=== PATIENT | male | born 1960 | race Caucasian/White ===

== ENCOUNTER 2017-06-07 11:28 | Emergency (ER) | payer OTHER ==
--- OUTSIDE RECORDS SUMMARY | 2017-06-07 11:31 | XMS REPORT | Clinical Summary ---
:1960 Author Organization [facility] Address [address] [place] [address] Phone Care Team Providers Name Role Phone Unavailable Primary Care Provider Unavailable Allergies No Known Allergies Current Medications Prescription Sig. Disp. Refills Start End Date Status Date levothyroxine Take 2 tablets (400 60 tablet 0 03/15/19 Active (SYNTHROID, mcg total) by mouth 8 19 LEVOTHROID) 200 Every morning on an MCG tablet empty stomach. atorvastatin Take 1 tablet (80 30 tablet 0 03/15/19 Active (LIPITOR) 80 MG mg total) by mouth 8 19 tablet daily. amiodarone Take 1 tablet (200 30 tablet 11 03/15/19 Active (PACERONE) 200 MG mg total) by mouth 8 19 tablet daily. apixaban Take 1 tablet (5 mg 60 tablet 0 Active (ELIQUIS) 5 mg total) by mouth 2 8 Tab tablet (two) times daily. digoxin (LANOXIN) Take 1 tablet (250 30 tablet 03/15/19 Active 0.25 MG tablet mcg total) by mouth 8 19 daily. famotidine Take 1 tablet (20 60 tablet 0 Active (PEPCID) 20 MG mg total) by mouth 8 tablet every 12 (twelve) hours. ipratropium-albut Take 3 mLs by 360 mL 0 03/09/19 Active nanda (DUO-NEB) nebulization every 8 19 0.5 mg-3 mg(2.5 6 (six) hours for mg base)/3 mL 360 days. nebulizer solution metoprolol Take 1 tablet (25 60 tablet 11 03/14/19 Active (LOPRESSOR) 25 MG mg total) by mouth 8 19 tablet 2 (two) times daily. glucagon, human Inject 1 mL (1 mg 1 each 0 Active recombinant, 1 total) 8 mg/mL SolR intramuscularly as injection needed (BGL< 70, patient unable to PO, AND unable to give D50W due to lack of IV access). insulin detemir Inject 20 Units 6 mL 0 03/14/19 Active (LEVEMIR) 100 subcutaneously 8 19 unit/mL injection every morning If glucose 90-100mg/dl give half dose. Hold if glucose <90mg/dl. Hold if tube feeds held.. insulin regular Inject 0.1 mLs (10 12 mL 0 Active (HUMULIN Units total) 8 R,NOVOLIN R) 100 subcutaneously unit/mL injection every 6 (six) hours. insulin regular Inject 0-0.12 mLs 10 mL 0 Active (HUMULIN (0-12 Units total) 8 R,NOVOLIN R) 100 subcutaneously 3 unit/mL injection (three) times daily SSI 2:50 BG>150mg/dl as needed. propranolol Take 40 mg by mouth 03/14/19 Discontinued (INDERAL) 20 MG 2 (two) times daily 18 tablet . icosapent ethyl Take 4 g by mouth 03/14/19 Discontinued (VASCEPA) 1 gram daily . 18 Cap triamterene-hydro Take 1 tablet by 01/24/20 Discontinued chlorothiazide mouth daily. 17 (MAXZIDE) 75-50 mg per tablet DULoxetine Take 60 mg by mouth 03/14/19 Discontinued (CYMBALTA) 60 MG daily. 18 capsule INSULIN REGULAR, Inject 12/01/19 Discontinued HUMAN (HUMULIN R subcutaneously. 17 U-500 Through insulin "CONCENTRATED" pump. SUBQ) LEVOTHYROXINE Take 450 mcg by 01/11/20 Discontinued SODIUM mouth. 17 (LEVOTHYROXINE ORAL) testosterone Inject 03/14/19 Discontinued cypionate intramuscularly 18 (DEPOTESTOTERONE once every 3 weeks CYPIONATE) 200 . mg/mL injection exenatide Inject 2 mg 12/01/19 Discontinued microspheres subcutaneously 17 (BYDUREON) 2 mg every 7 days SERR Saturday. aspirin 81 MG EC Take 1 tablet (81 21 tablet 0 03/14/19 Discontinued tablet mg total) by mouth 5 18 daily. solifenacin Take 10 mg by mouth 01/11/20 Discontinued (VESICARE) 5 MG daily. 17 tablet clopidogrel Take 75 mg by mouth 12/01/19 Discontinued (PLAVIX) 75 mg daily. 17 tablet mirabegron Take 50 mg by mouth 12/01/19 Discontinued (MYRBETRIQ) 50 mg daily. 17 Tb24 rosuvastatin Take 5 mg by mouth 01/11/20 Discontinued (CRESTOR) 5 MG daily. 17 tablet insulin regular Inject 03/14/19 Discontinued hum U-500 conc subcutaneously 3 18 (HUMULIN R U-500, (three) times daily CONC, KWIKPEN) Sliding scale; 500 unit/mL (3 takes Insulin mL) InPn morning, noon and bedtime. levothyroxine Take 450 mcg by 03/14/19 Discontinued (SYNTHROID, mouth Every morning 18 LEVOTHROID) 150 on an empty MCG tablet stomach. rosuvastatin Take 20 mg by mouth 03/14/19 Discontinued (CRESTOR) 20 MG daily. 18 tablet valsartan-hydroch Take 1 tablet by 03/14/19 Discontinued lorothiazide mouth daily. 18 (DIOVAN-HCT) 160-12.5 mg per tablet cholecalciferol, Take 2,000 Units by 03/14/19 Discontinued vitamin D3, 2,000 mouth daily. 18 unit Tab b complex Take 1 tablet by 03/14/19 Discontinued vitamins tablet mouth daily. 18 mirabegron Take 50 mg by mouth 03/14/19 Discontinued (MYRBETRIQ) 50 mg daily. 18 Tb24 ER tablet buPROPion Take 75 mg by mouth 03/14/19 Discontinued (WELLBUTRIN) 75 daily. 18 MG tablet acetaminophen Take 2 tablets 30 tablet 0 03/24/19 (TYLENOL) 500 MG (1,000 mg total) by 8 18 tablet mouth every 6 (six) hours as needed for Fever for up to 10 days. loperamide Take 2 capsules (4 30 capsule 0 03/24/19 (IMODIUM) 2 mg mg total) by mouth 8 18 capsule 4 (four) times daily for 10 days. chlorhexidine Use as directed 15 420 mL 0 03/28/19 (PERIDEX) 0.12 % mLs in the mouth or 8 18 solution throat 2 (two) times daily for 14 days. insulin regular Use as directed. 10 mL 0 03/14/19 Discontinued (HUMULIN 8 18 R,NOVOLIN R) 100 unit/mL injection insulin regular Use as directed. 10 mL 0 03/14/19 Discontinued (HUMULIN 8 18 R,NOVOLIN R) 100 unit/mL injection insulin detemir Inject 20 Units 6 mL 0 04/13/19 (LEVEMIR) 100 subcutaneously 8 18 unit/mL injection nightly for 30 days If glucose 90-100mg/dL give 1/2 doseHold if glucose <90mg/dLHold if tube feeds held.. 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 Rectal cancer (HCC) 01/21/2017 Transient cerebral ischemia, unspecified type 09/28/2015 Cerebral infarction (HCC) 12/20/2014 Overview: UPDATED BY ICD10 SNOMED/IMO UPDATES Lumbar radiculitis 12/14/2013 Hypertension Overview: HTN x 15 yrs Diabetes mellitus (HCC) Overview: IDDM x 19 yrs/ uses insulin pump/ Checks bs 7x daily average [address] Neuropathy Hypothyroid Hypercholesteremia Essential tremor Resolved Problems Problem Noted Date Resolved Date Bacteremia 02/18/2017 03/14/2017 Acute metabolic encephalopathy 2/2 severe hyperglycemia 01/24/2017 03/14/2017 Acute hyperglycemia 01/23/2017 03/14/2017 Hypophosphatasia 01/23/2017 03/14/2017 Acute postoperative pain 01/23/2017 03/14/2017 Leukocytosis, unspecified type 01/23/2017 03/14/2017 Combative behavior 01/23/2017 03/14/2017 Threatening to others 01/23/2017 03/14/2017 Sepsis, due to unspecified organism (HCC) 03/14/2017 Encounters Date Type Specialty Care Team Description 03/05/2017 Procedure Pass Gastroenterology 03/05/2017 Surgery Gastroenterology [place] UPPER ENDOSCOPY Renzo Duong MD 03/04/2017 Anesthesia Event Gastroenterology Edward Julian MD 02/22/2017 Orders Only General Internal Medicine 02/04/2017 Anesthesia Event Cardiac Intensive Care Vlad Briones MD 02/01/2017 Anesthesia Event Gastroenterology Taniya Beltran CRNA 02/01/2017 Procedure Pass Gastroenterology 02/01/2017 Surgery Gastroenterology Candelario Murphy SIGMOIDOSCOPY Franc[place]a 01/24/2017 Anesthesia Event Willard Lee MD 01/24/2017 Procedure Pass 01/24/2017 Surgery Volodymyr, LAPAROSCOPY,ILEOSTO MARIA FERNANDA Saavedra MD 01/21/2017 [facility] General Internal Clemente Moreno, Acute - Encounter Medicine MD encephalopathy;[place] 03/14/2017 Danny Sheppard MD hyperglycemia;Acute postoperative pain;Hypotension, unspecified hypotension type;Intraabdominal fluid collection;Diabetes mellitus with insulin therapy (HCC);Hyperglycemia ;Acute respiratory failure requiring reintubation (HCC);Acute metabolic encephalopathy;Hypo thyroidism, unspecified type;Atrial fibrillation, unspecified type (HCC);Septic shock (HCC);Sepsis, due to unspecified organism (HCC) 01/21/2017 Anesthesia Event Lorne Corona MD 01/21/2017 Procedure Pass 01/21/2017 Surgery Clemente Moreno, ROBOTIC LAPAROSCOPY,LOW ANTERIOR RESECTION 01/10/2017 Hospital Pre-Admission Testing Clemente Moreno, Cerebral Encounter infarction, unspecified mechanism (HCC) 01/10/2017 Orders Only General Internal Medicine 12/05/2016 [facility] Navjot Roy Encounter MD Velma 12/05/2016 Anesthesia Event Shawna Danielle MD 12/05/2016 Procedure Pass 12/05/2016 Surgery Navjot Roy COLONOSCOPY,BIOPSY MD Velma 11/30/2016 Hospital Pre-Admission Testing Encounter after 06/06/2016 Social History Tobacco Use Types Packs/Day Years Used Date Never Smoker Smokeless Tobacco: Never Used Alcohol Use Drinks/Week oz/Week Comments No Sex Assigned at Date Recorded Not on file Last Filed Vital Signs Vital Sign Reading Time Taken Blood Pressure 119/63 03/14/2017 3:55 PM ENDO TECH Pulse 80 03/14/2017 3:55 PM ENDO TECH Temperature 35.3 C (95.6 F) 03/14/2017 3:55 PM ENDO TECH Respiratory Rate 18 03/14/2017 3:55 PM ENDO TECH Oxygen Saturation 98% 03/14/2017 3:55 PM ENDO TECH Inhaled Oxygen Concentration - - Weight 126.9 kg (279 lb 12.2 oz) 03/07/2017 2:00 AM ENDO TECH Height 193 cm (6' 3.98") 01/21/2017 9:35 AM ENDO TECH Body Mass Index 34.07 03/07/2017 2:00 AM ENDO TECH Plan of Treatment Date Type Specialty Care Team Description 06/17/2017 Appointment Shaun Juares MD [address] [facility] [address] [place] [address] Procedures Procedure Name Priority Date/Time Associated Diagnosis Comments UPPER ENDOSCOPY 03/05/2017 8:00 AM Malnutrition, ENDO TECH unspecified type (HCC) SIGMOIDOSCOPY 02/01/2017 3:00 PM Incontinence of feces, ENDO TECH unspecified fecal incontinence type LAPAROSCOPY,ILEOSTOMY 01/24/2017 4:30 PM Anastomotic Leaks ENDO TECH PROCEDURE W/ DAVINCI 01/21/2017 8:00 AM Rectal cancer (HCC) ENDO TECH ROBOTIC LAPAROSCOPY,LOW 01/21/2017 8:00 AM Rectal cancer (HCC) ANTERIOR RESECTION ENDO TECH COLONOSCOPY,SUBMUCOSAL 12/05/2016 1:30 PM Blood in stool INJECTION CDT COLONOSCOPY,BIOPSY 12/05/2016 1:30 PM Blood in stool CDT after 06/06/2016 Results RHYTHM STRIP - SCAN (03/18/2017 1:21 PM)POC-Glucose meter (03/14/2017 8:24 PM) Only the most recent of443 resultswithin the time period is included. Component Value Ref Range POC-Glucose Meter 123 (H)Comment: TESTED AT [address] 70 - 110 mg/[place] [address] Specimen Performing Laboratory Blood [address] [address] Calcium, Ionized (03/14/2017 2:31 PM)Only the most recent of51 resultswithin the time period is included. Component Value Ref Range Calcium, Ion 1.00 (L) 1.12 - 1.27 mmol/L pH, Blood 7.47 Specimen Performing Laboratory Blood [address] [address] CBC with platelet count + automated diff (03/14/2017 2:31 PM)Only the most recent of51 resultswithin the time period is included. Component Value Ref Range WBC 8.3 3.5 - 10.5 K/L RBC 3.50 (L) 4.63 - 6.08 M/L Hemoglobin 9.1 (L) 13.7 - 17.5 GM/DL Hematocrit 30.8 (L) 40.1 - 51.0 % MCV 88.0 79.0 - 92.2 fL MCH 26.0 25.7 - 32.2 pg MCHC 29.5 (L) 32.3 - 36.5 GM/DL RDW 16.1 (H) 11.6 - 14.4 % Platelets 571 (H) 150 - 450 K/CU MM MPV 9.3 (L) 9.4 - 12.4 fL nRBC 0 0 - 0 /100 WBC % Neutros 79 % % Lymphs 10 % % Monos 9 % % Eos 1 % % Baso 1 % # Neutros 6.58 (H) 1.78 - 5.38 K/L # Lymphs 0.82 (L) 1.32 - 3.57 K/L # Monos 0.74 0.30 - 0.82 K/L # Eos 0.09 0.04 - 0.54 K/L # Baso 0.04 0.01 - 0.08 K/L Immature Granulocytes-Relative 1 0 - 1 % Specimen Performing Laboratory Blood [address] [address] CBC with platelet count + automated diff (03/14/2017 2:31 PM)Only the most recent of51 resultswithin the time period is included. Specimen Performing Laboratory Blood Narrative The following orders were created for panel order CBC with platelet count + automated diff. Procedure Abnormality Status --------- ------ CBC with platelet count ...[[id number]]AbnormalFinal result Please view results for these tests on the individual orders. Phosphorus (03/14/2017 2:31 PM)Only the most recent of52 resultswithin the time period is included. Component Value Ref Range Phosphorus 3.2 2.3 - 4.7 mg/dL Specimen Performing Laboratory Blood [address] [address] Magnesium (03/14/2017 2:31 PM)Only the most recent of53 resultswithin the time period is included. Component Value Ref Range Magnesium 1.5 (L) 1.6 - 2.6 mg/dL Specimen Performing Laboratory Blood [address] [address] Basic Metabolic Panel (03/14/2017 2:31 PM)Only the most recent of55 resultswithin the time period is included. Component Value Ref Range Sodium 133 (L) 136 - 145 meq/L Potassium 4.7 3.5 - 5.1 meq/L Chloride 97 (L) 98 - 107 meq/L CO2 26 22 - 29 meq/L BUN 12 7 - 21 mg/dL Creatinine 0.68 0.57 - 1.25 mg/dL Glucose 305 (H) 70 - 105 mg/dL Calcium 8.9 8.4 - 10.2 mg/dL EGFR 120Comment: ESTIMATED GFR IS NOT ACCURATE mL/min/1.73 sq m CREATININE CLEARANCE IN PREDICTING GLOMERULAR FILTRATION RATE. ESTIMATED GFR IS NOT APPLICABLE FOR DIALYSIS PATIENTS. Specimen Performing Laboratory Blood [address] [address] [place] esoph swallow funct with cine video (03/14/2017 11:10 AM) Specimen Performing Laboratory GE RIS Narrative FINAL REPORT Modified barium swallow Reason for study: Dysphagia Discussion: This exam was performed in conjunction with speech pathology. The patient swallowed different consistencies of barium, and the swallowing was observed fluoroscopically. The patient had difficulty following instructions due to lethargy. No laryngeal penetration or aspiration is seen. There is no pooling of contrast in the vallecula or piriform sinuses. Impression Normal swallow. Please refer to report from speech pathology for further information and recommendations. Two lateral spot and cine fluoroscopic images of the neck were obtained. Fluoroscopy time-2.2 minutes. Signed: Parker Berry MD Report Verified Date/Time:03/14/2017 11:29:44 Reading Location: [facility] [id number] Ortho Consult Reading Room Procedure Note Interface, External Ris In - 03/14/2017 11:31 AM ENDO TECH FINAL REPORT Modified barium swallow Reason for study: Dysphagia Discussion: This exam was performed in conjunction with speech pathology. The patient swallowed different consistencies of barium, and the swallowing was observed fluoroscopically. The patient had difficulty following instructions due to lethargy. No laryngeal penetration or aspiration is seen. There is no pooling of contrast in the vallecula or piriform sinuses. Impression Normal swallow. Please refer to report from speech pathology for further information and recommendations. Two lateral spot and cine fluoroscopic images of the neck were obtained. Fluoroscopy time-2.2 minutes. Signed: Parker Berry MD Report Verified Date/Time: 03/14/2017 11:29:44 Reading Location: [place] [id number] Ortho Consult Reading Room Occult blood, stool (03/14/2017 7:02 AM)Only the most recent of10 resultswithin the time period is included. Component Value Ref Range Occult blood Negative Negative Specimen Performing Laboratory Stool [address] [address] CBC (Hemogram only) (03/10/2017 3:49 AM)Only the most recent of7 resultswithin the time period is included. Component Value Ref Range WBC 6.4 3.5 - 10.5 K/L RBC 4.12 (L) 4.63 - 6.08 M/L Hemoglobin 10.9 (L) 13.7 - 17.5 GM/DL Hematocrit 36.9 (L) 40.1 - 51.0 % MCV 89.6 79.0 - 92.2 fL MCH 26.5 25.7 - 32.2 pg MCHC 29.5 (L) 32.3 - 36.5 GM/DL RDW 16.0 (H) 11.6 - 14.4 % Platelets 512 (H) 150 - 450 K/CU MM MPV 9.7 9.4 - 12.4 fL nRBC 0 0 - 0 /100 WBC Specimen Performing Laboratory Blood [address] [address] XR abdomen / KUB 1 view (03/07/2017 7:44 AM)Only the most recent of13 resultswithin the time period is included. Specimen Performing Laboratory GE RIS Narrative FINAL REPORT EXAM: AP abdominal radiograph HISTORY PROVIDED: NG tube placement verification COMPARISON: 03/03/2017 IMPRESSION: The examination is limited secondary to patient's body habitus. The nasogastric tube is faintly seen descending into the abdomen with its tip not well seen but likely within the expected location of the stomach. The bowel gas pattern is nonspecific. This examination is insensitive for the detection of free air. A pigtail catheter is seen within the central abdomen. There are bibasilar opacities and right greater than left bilateral pleural effusions. Degenerative changes of the spine are present. Signed: Saad Guzman MD Report Verified Date/Time:03/07/2017 08:38:07 Reading Location: [facility] Reading Room Procedure Note Interface, External Ris In - 03/07/2017 8:40 AM ENDO TECH FINAL REPORT EXAM: AP abdominal radiograph HISTORY PROVIDED: NG tube placement verification COMPARISON: 03/03/2017 IMPRESSION: The examination is limited secondary to patient's body habitus. The nasogastric tube is faintly seen descending into the abdomen with its tip not well seen but likely within the expected location of the stomach. The bowel gas pattern is nonspecific. This examination is insensitive for the detection of free air. A pigtail catheter is seen within the central abdomen. There are bibasilar opacities and right greater than left bilateral pleural effusions. Degenerative changes of the spine are present. Signed: Saad Guzman MD Report Verified Date/Time: 03/07/2017 08:38:07 Reading Location: [facility] Reading Room SFUSION SERVICE REPORT - SCAN (03/06/2017 5:40 PM)Only the most recent of2 resultswithin the time period is included.IR G-Tube Insertion w/Fluoro (2017 2:05 PM) Specimen Performing Laboratory GE RIS Narrative FINAL REPORT Fluoroscopic guided gastrostomy tube placement. Modality: Fluoroscopy. Metal Furniture Panel Coverer:Talat Hare MD. Brick Grader:None. Sedation: Moderate sedation was administered. 1 mg of Versed and75 mcg of fentanyl IV was used for moderate sedation monitored under my direction. Total intra-service time of sedation [id number]. The patient's vital signs were monitored throughout the procedure and recorded in the patient's medical record by the nurse. Other medication: Glucagon 0.5 mg IV. Estimated Blood Loss:Less than 1 cc. Specimen: None. Fluoroscopy Time: 1.4 min. Reference Air Kerma (Ka, r): 52.3 mGy. Technique: Discussion of risks, benefits, and alternatives were made with the patient. The patient expressed understanding and agreed to proceed. After informed consent was obtained, which included the risks of bleeding, infection, injury to adjacent structures/bowel, adverse medication reaction, the patient's abdomen was prepped and draped in the usual sterile manner. All elements maximal sterile barrier technique was utilized for this procedure, including utilization of sterile scrub solution for skin prep, a large sterile sheet to cover the areas of the patient that were not prepped, and hand hygiene, mask, head covering, and sterile gown for performing radiologist and scrub technologist. Local anesthesia was achieved with 2% lidocaine, the stomach was insufflated with air via the NG tube. Given the patient's body habitus, a 21-gauge AccuStick needle was advanced into the mid-body of the stomach under fluoroscopic guidance. Aspiration of air and injection of contrast confirmed positioning within the stomach. A 0.018 wire was advanced into the stomach. Gastric sheath was advanced over wire and a 0.035 Amplatz wire was advanced through the sheath and curled within the lumen of the stomach. After a small skin incision was made, the soft tissue tract was created with serial dilators. After the tract was dilated, a 14 Tajik catheter was placed into the stomach. The wire was then removed, and the pigtail of the catheter was locked.The catheter was then secured onto the skin with 2-0 silk. The patient tolerated the procedure well, without immediate complications. The patient's vital signs remained stable throughout the procedure. Patient disposition: The patient was discharged from the department in stable condition. Impression: Successful and uncomplicated fluoroscopic guided gastrostomy tube placement, with conscious sedation. Signed: Talat Hare MD Report Verified Date/Time:03/08/2017 09:01:42 Reading Location: [facility] P048 Angio Body Reading Room Procedure Note Interface, External Ris In - 03/19/2017 10:32 AM ENDO TECH FINAL REPORT Fluoroscopic guided gastrostomy tube placement. Modality: Fluoroscopy. Metal Furniture Panel Coverer: Talat Hare MD. Brick Grader: None. Sedation: Moderate sedation was administered. 1 mg of Versed and 75 mcg of fentanyl IV was used for moderate sedation monitored under my direction. Total intra-service time of sedation was 30 minutes. The patient's vital signs were monitored throughout the procedure and recorded in the patient's medical record by the nurse. Other medication: Glucagon 0.5 mg IV. Estimated Blood Loss: Less than 1 cc. Specimen: None. Fluoroscopy Time: 1.4 min. Reference Air Kerma (Ka, r): 52.3 mGy. Technique: Discussion of risks, benefits, and alternatives were made with the patient. The patient expressed understanding and agreed to proceed. After informed consent was obtained, which included the risks of bleeding, infection, injury to adjacent structures/bowel, adverse medication reaction, the patient's abdomen was prepped and draped in the usual sterile manner. All elements maximal sterile barrier technique was utilized for this procedure, including utilization of sterile scrub solution for skin prep, a large sterile sheet to cover the areas of the patient that were not prepped, and hand hygiene, mask, head covering, and sterile gown for performing radiologist and scrub technologist. Local anesthesia was achieved with 2% lidocaine, the stomach was insufflated with air via the NG tube. Given the patient's body habitus, a 21-gauge AccuStick needle was advanced into the mid-body of the stomach under fluoroscopic guidance. Aspiration of air and injection of contrast confirmed positioning within the stomach. A 0.018 wire was advanced into the stomach. Gastric sheath was advanced over wire and a 0.035 Amplatz wire was advanced through the sheath and curled within the lumen of the stomach. After a small skin incision was made, the soft tissue tract was created with serial dilators. After the tract was dilated, a 14 Tajik catheter was placed into the stomach. The wire was then removed, and the pigtail of the catheter was locked. The catheter was then secured onto the skin with 2-0 silk. The patient tolerated the procedure well, without immediate complications. The patient's vital signs remained stable throughout the procedure. Patient disposition: The patient was discharged from the department in stable condition. Impression: Successful and uncomplicated fluoroscopic guided gastrostomy tube placement, with conscious sedation. Signed: Talat Hare MD Report Verified Date/Time: 03/08/2017 09:01:42 Reading Location: [facility] P048 Angio Body Reading Room aPTT (03/06/2017 4:55 AM)Only the most recent of32 resultswithin the time period is included. Component Value Ref Range PTT 48.5 (H) 22.5 - 36.0 seconds Specimen Performing Laboratory Blood [address] [address] Prothrombin time/INR (03/06/2017 4:55 AM)Only the most recent of21 resultswithin the time period is included. Component Value Ref Range Protime 16.6 (H) 11.7 - 14.7 seconds INR 1.4 <=5.9 Specimen Performing Laboratory Blood [address] [address] Narrative RECOMMENDED COUMADIN/WARFARIN INR THERAPY RANGES STANDARD DOSE: 2.0 - 3.0 Includes: PROPHYLAXIS for venous thrombosis, systemic embolization; TREATMENT for venous thrombosis and/or pulmonary embolus. HIGH RISK: Target INR is 2.5-3.5 for patients with mechanical heart valves. REPORT OF PROCEDURE - ENDOSCOPY URL (03/05/2017 9:05 AM)Only the most recent of3 resultswithin the time period is included.Type and screen, automated (2017 4:31 AM)Only the most recent of2 resultswithin the time period is included. Component Value Ref Range ABO/RH AUTOMATED (BEAKER) A NEGATIVE Ab Scrn NEGATIVE Specimen Performing Laboratory Blood [address] [address] XR chest 1 view portable / bedside (03/03/2017 2:00 PM)Only the most recent of36 resultswithin the time period is included. Specimen Performing Laboratory GE RIS Narrative FINAL REPORT CHEST ONE VIEW HISTORY: Nasogastric tube placement COMPARISON: 02/18/2017 FINDINGS: Single portable AP examination of the chest was performed. Lung volumes are low, with mild patchy airspace opacities at the lung bases suggestive of atelectasis or pneumonia. Faint interstitial opacities in the lungs, suggestive of interstitial edema. The cardiac shadow is difficult to assess due to the low lung volumes. Small right pleural effusion is suspected. No pneumothorax. Tracheostomy tube tip is well above the tiago. Nasogastric tube passes below the diaphragm, with the tip in the region of the stomach. Signed: Saad Cochran MD Report Verified Date/Time:03/03/2017 14:20:07 Reading Location: [address] Ortho Consult Reading Room Procedure Note Interface, External Ris In - 03/03/2017 2:22 PM ENDO TECH FINAL REPORT CHEST ONE VIEW HISTORY: Nasogastric tube placement COMPARISON: 02/18/2017 FINDINGS: Single portable AP examination of the chest was performed. Lung volumes are low, with mild patchy airspace opacities at the lung bases suggestive of atelectasis or pneumonia. Faint interstitial opacities in the lungs, suggestive of interstitial edema. The cardiac shadow is difficult to assess due to the low lung volumes. Small right pleural effusion is suspected. No pneumothorax. Tracheostomy tube tip is well above the tiago. Nasogastric tube passes below the diaphragm, with the tip in the region of the stomach. Signed: Saad Cochran MD Report Verified Date/Time: 03/03/2017 14:20:07 Reading Location: [facility] [id number] Ortho Consult Reading Room /Free T4 If Indicated (03/02/2017 4:46 AM)Only the most recent of2 resultswithin the time period is included. Component Value Ref Range TSH 0.38 0.35 - 4.94 uIU/mL Specimen Performing Laboratory Blood - Line, Venous [address] [address] T4, free (03/02/2017 4:46 AM) Component Value Ref Range Free T4 1.17 0.70 - 1.48 ng/dL Specimen Performing Laboratory Blood - Line, Venous [address] [address] Manual Differential (02/28/2017 3:59 AM)Only the most recent of22 resultswithin the time period is included. Specimen Performing Laboratory Blood - Line, Venous [facility] [address] [place] [address] TSH (02/28/2017 3:59 AM)Only the most recent of2 resultswithin the time period is included. Component Value Ref Range TSH 0.51 0.35 - 4.94 uIU/mL Specimen Performing Laboratory Blood - Line, Venous [address] [id number] [place] [address] PERIPHERAL VASCULAR REPORT - SCAN (02/23/2017 7:20 AM)Only the most recent of2 resultswithin the time period is included.Arterial doppler legs bilateral (02/22 3:50 PM) Component Value Ref Range Ejection Fraction Specimen Performing Laboratory SLE ECHO [facility]ART[facility] MKCKESSON CPACS Impressions Right Impression 1. The common femoral, profunda femoral, superficial femoral, popliteal, posterior tibial, peroneal and anterior tibial arteries are patent with calcified plaque and triphasic to biphasic doppler waveforms throughout. 2. The PT pressure is 151 mmHg with an EMILIA of 1.34 (within the noncompressible range) and the DP pressure is 132 mmHg with an EMILIA of 1.17, (within normal range). 3. The digits had no obtainable flow by PPG waveforms. 4. The great toe pressure and TBI could not be obtained due to no recordable flow. Left Impression 1. The common femoral, profunda femoral, superficial femoral, popliteal, posterior tibial, peroneal and anterior tibial arteries are patent with calcified plaque and triphasic to biphasic doppler waveforms throughout. 2. The PT pressure is 160 mmHg with an EMILIA of 1.42 and the DP pressure is 183 mmHg with an EMILIA of 1.62, (within the noncompressible range). 3. The 1st digit have decreased flow by PPG waveforms. 4. The 2nd, 3rd,4th and 5th digits had no obtainable flow by PPG waveforms. 5. The great toe pressure is 40 mmHg with abnormal TBI of 0.35 . Conclusions Summary Arterial pressures and Doppler analysis were performed bilaterally. The arteries were technically difficult to visualize due to body habitus. On the right, the common femoral, profunda femoral, superficial femoral, popliteal, posterior tibial, peroneal and anterior tibial arteries were patent with calcified plaque and triphasic to biphasic doppler waveforms throughout. The PT pressure was 151 mmHg with an EMILIA of 1.34 (within the noncompressible range) and the DP pressure is 132 mmHg with an EMILIA of 1.17, (within normal range). The digits had no obtainable flow by PPG waveforms. The great toe pressure and TBI could not be obtained due to no recordable flow. On the left,the common femoral, profunda femoral, superficial femoral, popliteal, posterior tibial, peroneal and anterior tibial arteries are patent with calcified plaque and triphasic to biphasic doppler waveforms throughout. The PT pressure was 160 mmHg with an EMILIA of 1.42 and the DP pressure is 183 mmHg with an EMILIA of 1.62, (within the noncompressible range). The 1st digit had decreased flow by PPG waveforms. The 2nd, 3rd,4th and 5th digits had no obtainable flow by PPG waveforms. The great toe pressure was 40 mmHg with abnormal TBI of 0.35 . Signature Velocities are measured in cm/s ; Diameters are measured in cm LE Duplex Measurements Right Left + + + + + + + + + + !Location ! !PSV !EDV !Waveform! !PSV !EDV !Waveform! + + + + + + + + + + !Mid Common Femoral ! !99!13.4! ! !124 !18.1! ! + + + + + + + + + + !Prox PFA ! !66!11! ! !114 !9.43! ! + + + + + + + + + + !Prox SFA ! !103 !18.9! ! !112 !17.3! ! + + + + + + + + + + !Mid SFA ! !94.3!19.6! ! !95.1!20.4! ! + + + + + + + + + + !Dist SFA ! !90.4!16.5! ! !66.8!15.7! ! + + + + + + + + + + !Prox Popliteal ! !88.8!21.2! ! !51.9!11! ! + + + + + + + + + + !Dist Popliteal ! !94.3!26.7! ! !77!17.3! ! + + + + + + + + + + !Prox SENIOR TECHNICAL ARCHITECT ! !147 !36.1! ! !71.5!18.1! ! + + + + + + + + + + !Mid SENIOR TECHNICAL ARCHITECT ! !113 !34.6! ! !101 !11! ! + + + + + + + + + + !Dist SENIOR TECHNICAL ARCHITECT ! !155 !36.9! ! !96.6!15.7! ! + + + + + + + + + + !Prox NEAL ! !103 !22.8! ! !58.1!14.1! ! + + + + + + + + + + !Dist NEAL ! !103 !26.7! ! + + + + + + !Dist Peroneal ! + + Narrative [facility] - Lower Extremity Arterial Duplex Demographics Patient TERRELL Marcus Date of Study 02/22/2017 CAN Age 57 Visit [id number] Gender Male Date of [birth year] Number Referring Mor Santillan Room Number [id number] Physician Stabber Burak Jaramillo. Marcia Serrato MD, CALIXTO Arroyo Procedure Type of Study: Extremities Arteries: Lower Extremities Arterial Duplex, ARTERIAL DOPPLER LEGS, BILATERAL. Indications for Study:Mottled lower legs with difficult pulses to feel. Patient Status:Routine. Study Location:Vascular Lab. Technical Quality:Technically Difficult. Risk Factors History of Disease + +----+ + !Diagnosis !Date!Comments! + +----+ + !History/Risk Factors: !!DM, HTN, Rectal Cancer! + +----+ + Procedure Note Interface, External Ris In - 02/23/2017 6:20 AM ENDO TECH [facility] - Lower Extremity Arterial Duplex Demographics Patient Name TERRELL PALUMBO Date of Study 02/22/2017 CAN Age 57 Visit Number [id number] Gender Male Date of 1960 Number Referring Mor Santillan Room Number [id number] Physician Stabber Burak Sharma T Physician , CALIXTO Arroyo Procedure Type of Study: Extremities Arteries: Lower Extremities Arterial Duplex, ARTERIAL DOPPLER LEGS, BILATERAL. Indications for Study:Mottled lower legs with difficult pulses to feel. Patient Status:Routine. Study Location:Vascular Lab. Technical Quality:Technically Difficult. Risk Factors History of Disease + +----+ + !Diagnosis !Date!Comments ! + +----+ + !History/Risk Factors: ! !DM, HTN, Rectal Cancer ! + +----+ + Impressions Right Impression 1. The common femoral, profunda femoral, superficial femoral, popliteal, posterior tibial, peroneal and anterior tibial arteries are patent with calcified plaque and triphasic to biphasic doppler waveforms throughout. 2. The PT pressure is 151 mmHg with an EMILIA of 1.34 (within the noncompressible range) and the DP pressure is 132 mmHg with an EMILIA of 1.17, (within normal range). 3. The digits had no obtainable flow by PPG waveforms. 4. The great toe pressure and TBI could not be obtained due to no recordable flow. Left Impression 1. The common femoral, profunda femoral, superficial femoral, popliteal, posterior tibial, peroneal and anterior tibial arteries are patent with calcified plaque and triphasic to biphasic doppler waveforms throughout. 2. The PT pressure is 160 mmHg with an EMILIA of 1.42 and the DP pressure is 183 mmHg with an EMILIA of 1.62, (within the noncompressible range). 3. The 1st digit have decreased flow by PPG waveforms. 4. The 2nd, 3rd,4th and 5th digits had no obtainable flow by PPG waveforms. 5. The great toe pressure is 40 mmHg with abnormal TBI of 0.35 . Conclusions Summary Arterial pressures and Doppler analysis were performed bilaterally. The arteries were technically difficult to visualize due to body habitus. On the right, the common femoral, profunda femoral, superficial femoral, popliteal, posterior tibial, peroneal and anterior tibial arteries were patent with calcified plaque and triphasic to biphasic doppler waveforms throughout. The PT pressure was 151 mmHg with an EMILIA of 1.34 (within the noncompressible range) and the DP pressure is 132 mmHg with an EMILIA of 1.17, (within normal range). The digits had no obtainable flow by PPG waveforms. The great toe pressure and TBI could not be obtained due to no recordable flow. On the left,the common femoral, profunda femoral, superficial femoral, popliteal, posterior tibial, peroneal and anterior tibial arteries are patent with calcified plaque and triphasic to biphasic doppler waveforms throughout. The PT pressure was 160 mmHg with an EMILIA of 1.42 and the DP pressure is 183 mmHg with an EMILIA of 1.62, (within the noncompressible range). The 1st digit had decreased flow by PPG waveforms. The 2nd, 3rd,4th and 5th digits had no obtainable flow by PPG waveforms. The great toe pressure was 40 mmHg with abnormal TBI of 0.35 . Signature Velocities are measured in cm/s ; Diameters are measured in cm LE Duplex Measurements Right Left + + + ------+ + + + +-------- + + !Location ! !PSV !EDV !Waveform ! !PSV !EDV !Waveform ! + + + ------+ + + + +-------- + + !Mid Common Femoral ! !99 !13.4 ! ! !124 !18.1 ! ! + + + ------+ + + + +-------- + + !Prox PFA ! !66 !11 ! ! !114 !9.43 ! ! + + + ------+ + + + +-------- + + !Prox SFA ! !103 !18.9 ! ! !112 !17.3 ! ! + + + ------+ + + + +-------- + + !Mid SFA ! !94.3 !19.6 ! ! !95.1 !20.4 ! ! + + + ------+ + + + +-------- + + !Dist SFA ! !90.4 !16.5 ! ! !66.8 !15.7 ! ! + + + ------+ + + + +-------- + + !Prox Popliteal ! !88.8 !21.2 ! ! !51.9 !11 ! ! + + + ------+ + + + +-------- + + !Dist Popliteal ! !94.3 !26.7 ! ! !77 !17.3 ! ! + + + ------+ + + + +-------- + + !Prox SENIOR TECHNICAL ARCHITECT ! !147 !36.1 ! ! !71.5 !18.1 ! ! + + + ------+ + + + +-------- + + !Mid SENIOR TECHNICAL ARCHITECT ! !113 !34.6 ! ! !101 !11 ! ! + + + ------+ + + + +-------- + + !Dist SENIOR TECHNICAL ARCHITECT ! !155 !36.9 ! ! !96.6 !15.7 ! ! + + + ------+ + + + +-------- + + !Prox NEAL ! !103 !22.8 ! ! !58.1 !14.1 ! ! + + + ------+ + + + +-------- + + !Dist NEAL ! !103 !26.7 ! ! + + + ------+ + + !Dist Peroneal ! + + Sodium (02/22/2017 8:59 AM)Only the most recent of8 resultswithin the time period is included. Component Value Ref Range Sodium 149 (H) 136 - 145 meq/L Specimen Performing Laboratory Blood - Arm, Left [address] [address] Troponin I (02/22/2017 6:52 AM)Only the most recent of4 resultswithin the time period is included. Component Value Ref Range Troponin I <0.01 0.00 - 0.03 ng/mL Specimen Performing Laboratory Blood - Line, Venous [address] [address] Narrative Troponin I (TnI) levels must be interpreted in the context of the presenting symptoms and the clinical findings. Elevated TnI levels indicate myocardial damage, but are not specific for ischemic heart disease. Elevated TnI levels are seen in patients with other cardiac conditions (including myocarditis and congestive heart failure), and slight TnI elevations occur in patients with other conditions, including sepsis, renal failure, acidosis, acute neurological disease, and persistent tachyarrhythmia. ECG 12 lead (02/22/2017 5:52 AM)Only the most recent of12 resultswithin the time period is included. Specimen Performing Laboratory GE MUSE Narrative Ventricular Rate 78 BPM Atrial Rate 78 BPM P-R Interval 174 ms QRS Duration 100 ms Q-T Interval 480 ms QTC Calculation(Bazett) 547 ms P [place] 35 degrees R Cerro 4 degrees T Cer[place] 35 degrees Normal sinus rhythm Prolonged QT Abnormal ECG When compared with ECG of 08-FEB-2017 08:00, No significant change was found Confirmed by Araceli ORDOÑEZ BASANT ([id number]) on 02/22/2017 8:55:21 AM Procedure Note Interface, External Ris In - 02/22/2017 8:55 AM ENDO TECH Ventricular Rate 78 BPM Atrial Rate 78 BPM P-R Interval 174 ms QRS Duration 100 ms Q-T Interval 480 ms QTC Calculation(Bazett) 547 ms P [place] 35 degrees R Cerro 4 degrees T [place] 35 degrees Normal sinus rhythm Prolonged QT Abnormal ECG When compared with ECG of 08-FEB-2017 08:00, No significant change was found Confirmed by Araceli ORDOÑEZ, LARY ([id number]) on 02/22/2017 8:55:21 AM Blood gas, arterial (02/21/2017 9:59 PM)Only the most recent of16 resultswithin the time period is included. Component Value Ref Range pH, Arterial 7.45 7.35 - 7.45 pCO2, Arterial 35 35 - 45 mmHg pO2, Arterial 114 (H) 80 - 90 mmHg O2 Sat, Arterial 98.4 (H) 96.0 - 97.0 % HCO3, Arterial 24 21 - 29 mmol/L Base Excess, Arterial 0.1 -2.0 - 3.0 mmol/L Patient Temperature 37.0 C FIO2 40.0 % Specimen Performing Laboratory Blood, Arterial - Line, Arterial [facility] [address] [address] Digoxin level (02/21/2017 11:00 AM)Only the most recent of2 resultswithin the time period is included. Component Value Ref Range Digoxin Lvl 0.9 0.8 - 2.0 ng/mL Specimen Performing Laboratory Blood - Line, Venous [facility] [address] [place] [address] Blood culture (02/19/2017 12:17 PM)Only the most recent of13 resultswithin the time period is included. Component Value Ref Range Result No growth in 5 days Specimen Performing Laboratory Blood - Arm, Left [facility] [address] [place] [address] CT abdomen/pelvis with IV contrast (02/15/2017 5:02 PM)Only the most recent of3 resultswithin the time period is included. Specimen Performing Laboratory [employer] RIS Narrative FINAL REPORT ABDOMINAL AND PELVIS CT DATED 02/15/2017 COMPARISON: February 10, 2017 CLINICAL INFORMATION:Abd pain, fever, abscess suspected TECHNIQUE:Axial images of the abdomen and pelvis were obtained from diaphragm to the pubic symphysis with intravenous contrast. This exam was performed according to our departmental dose-optimization program, which includes automated exposure control, adjustment of the mA and/or kV according to patient size and/or use of interactive reconstruction technique. COMMENT: There is trace right pleural effusion. Subsegmental atelectasis is seen in both lung bases. Liver and spleen are normal in size without focal abnormality. A 2.3 x 3.8 cm, previously 2.3 x 4.0 cm, located fluid collection is seen on the right hemidiaphragm. A 1.3 x 2.1 cm loculated fluid collection is seen adjacent to the gallbladder fossa, previously 1.5 x 3.8 cm. A 1.8 x 4.5 cm loculated fluid collection is seen in the right right paracolic gutter, previously 2.6 x 5.6 cm. There is persistent loculated fluid subcapsular fluid collection surrounding the spleen. Gallbladder is distended with slight. No gallstone or biliary dilatation is noted. Pancreas and adrenals are unremarkable. Both kidneys are normal in size and functioning with prompt bilateral excretion. A 1.6 mL cyst is seen in the midpole right kidney. The opacified small bowel is unremarkable. The evaluation of the large bowel is limited secondary to lack of sufficient GI contrast. Ostomy is seen in the right lower quadrant abdomen. Appendix is not visualized. A air-fluid collection seen in the perirectal region appears to be external to the rectum. Perirectal abscess cannot be excluded. Recommend further evaluation with rectal contrast. IMPRESSION: 1. Trace right pleural effusion and bibasilar subsegmental atelectasis. 2. Persistent subcapsular splenic collection. 3. Interval decrease in size of the perinephric loculated collections and collection in the right paracolic gutter. 4. Right renal cyst. 5. Distended gallbladder with sludge. 6. Findings suspicious for perirectal abscess. Recommend further evaluation of the pelvis with rectal contrast. Signed: Monster Forbes MD Report Verified Date/Time:02/15/2017 18:36:50 Reading Location: [facility] B1 C013Y CT Body Reading Room Procedure Note Interface, External Ris In - 02/15/2017 6:39 PM ENDO TECH FINAL REPORT ABDOMINAL AND PELVIS CT DATED 02/15/2017 COMPARISON: February 10, 2017 CLINICAL INFORMATION: Abd pain, fever, abscess suspected TECHNIQUE: Axial images of the abdomen and pelvis were obtained from diaphragm to the pubic symphysis with intravenous contrast. This exam was performed according to our departmental dose-optimization program, which includes automated exposure control, adjustment of the mA and/or kV according to patient size and/or use of interactive reconstruction technique. COMMENT: There is trace right pleural effusion. Subsegmental atelectasis is seen in both lung bases. Liver and spleen are normal in size without focal abnormality. A 2.3 x 3.8 cm, previously 2.3 x 4.0 cm, located fluid collection is seen on the right hemidiaphragm. A 1.3 x 2.1 cm loculated fluid collection is seen adjacent to the gallbladder fossa, previously 1.5 x 3.8 cm. A 1.8 x 4.5 cm loculated fluid collection is seen in the right right paracolic gutter, previously 2.6 x 5.6 cm. There is persistent loculated fluid subcapsular fluid collection surrounding the spleen. Gallbladder is distended with slight. No gallstone or biliary dilatation is noted. Pancreas and adrenals are unremarkable. Both kidneys are normal in size and functioning with prompt bilateral excretion. A 1.6 mL cyst is seen in the midpole right kidney. The opacified small bowel is unremarkable. The evaluation of the large bowel is limited secondary to lack of sufficient GI contrast. Ostomy is seen in the right lower quadrant abdomen. Appendix is not visualized. A air-fluid collection seen in the perirectal region appears to be external to the rectum. Perirectal abscess cannot be excluded. Recommend further evaluation with rectal contrast. IMPRESSION: 1. Trace right pleural effusion and bibasilar subsegmental atelectasis. 2. Persistent subcapsular splenic collection. 3. Interval decrease in size of the perinephric loculated collections and collection in the right paracolic gutter. 4. Right renal cyst. 5. Distended gallbladder with sludge. 6. Findings suspicious for perirectal abscess. Recommend further evaluation of the pelvis with rectal contrast. Signed: Monster Forbes MD Report Verified Date/Time: 02/15/2017 18:36:50 Reading Location: [facility] C0Y CT Body Reading Room AWAKE AND DROWSY (02/15/2017 1:55 PM) Specimen Performing Laboratory [employer] Narrative DATE OF EE02-15-2017 DATE OF REPORT: 02-15-2017 ACC: [id number] EE6 Start time: 13:17 Stop time: 13:38 ICD-10:G 93.40 CPT Code: 00404 HISTORY: 57 y.o. male s/p robotic surgery for rectal cancer 2 weeks ago. 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 DESCRIPTION OF RECORD: This EEG demonstrates the presence of high amplitude (70-100uV) slow delta frequency background slowing (0.2-0.5Hz) with some superimposed diffuse theta activity. These features are not changed by noxious stimulation at all four limbs. There are no clear epochs of wakefulness or sleep. There is no discernible posterior dominant rhythm. Multiple electrode contacts demonstrate pop artifact, including T8, F7 and T7. HV: Hyperventilation was not performed. PHOTIC STIMULATION: Photic Stimulation was not done. IMPRESSION: Abnormal EEG due to 1-Generalized, continuous, high amplitude delta slowing with some superimposed theta activity which is nonreactive. No state changes. CLINICAL CORRELATION: This EEG finding is consistent with etiologically nonspecific severe encephalopathy with features. An EEG without epileptiform discharges does not exclude the possibility of epilepsy.If the clinical suspicion of epilepsy remains, consider additional EEG recordings. Leo Brandon MD Neurophysiology Fellow PGY5 Shad Jovel MD Epilepsy Attending Procedure Note Interface, External Ris In - 02/15/2017 3:53 PM ENDO TECH DATE OF EE02-15-2017 DATE OF REPORT: 02-15-2017 ACC: [id number] EE Start time: 13:17 Stop time: 13:38 ICD-10: G 93.40 CPT Code: 55338 HISTORY: 57 y.o. male s/p robotic surgery for rectal cancer 2 weeks ago. 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 DESCRIPTION OF RECORD: This EEG demonstrates the presence of high amplitude (70-100uV) slow delta frequency background slowing (0.2-0.5Hz) with some superimposed diffuse theta activity. These features are not changed by noxious stimulation at all four limbs. There are no clear epochs of wakefulness or sleep. There is no discernible posterior dominant rhythm. Multiple electrode contacts demonstrate pop artifact, including T8, F7 and T7. HV: Hyperventilation was not performed. PHOTIC STIMULATION: Photic Stimulation was not done. IMPRESSION: Abnormal EEG due to 1- Generalized, continuous, high amplitude delta slowing with some superimposed theta activity which is nonreactive. No state changes. CLINICAL CORRELATION: This EEG finding is consistent with etiologically nonspecific severe encephalopathy with features. An EEG without epileptiform discharges does not exclude the possibility of epilepsy. If the clinical suspicion of epilepsy remains, consider additional EEG recordings. Leo Brandon MD Neurophysiology Fellow PGY5 Shad Jovel MD Epilepsy Attending Heparin Assay - Low Molecular Weight (02/14/2017 2:37 PM)Only the most recent of3 resultswithin the time period is included. Component Value Ref Range Anti 10A-Lovenox 0.85 0.60 - 2.00 u/ml Specimen Performing Laboratory Blood [address] [address] Narrative Anti-Factor 10-A Level (Heparin Assay for Low Molecular Weight Heparin) Monitoring Guidelines: Blood samples should be obtained 4 hours post subcutaneous injection (time of Peak level) Therapeutic Peak Levels: 0.6-1.0 units/mLtwice daily enoxaparin 1.0-2.0 units/mLonce daily enoxaparin Ref: CHEST 2012;141:[id number] Please draw 5 hours after Lovenox administration. Thank you! INTRAOPERATIVE PATH REPORT - SCAN (02/11/2017 3:11 PM)BCID (02/09/2017 6:06 PM )Only the most recent of3 resultswithin the time period is included. Component Value Ref Range Scan Result Specimen Performing Laboratory Blood [address] [address] Narrative Result comments: Coagulase Negative Staphylococcus Species (CoNS) DETECTED, Methicillin Resistant First line therapy: Vancomycin Coagulase Negative Staphylococcus (CoNS) DETECTED mecA DETECTED Possible contamination.The likelihood of pathogenicity is increased if the organism is observed in multiple blood cultures obtained from separate venipunctures. Other organisms and resistance markers not contained in this PCR panel cannot be excluded and follow-up of traditional culture results is required. This sample was tested at the [facility] Clinical Microbiology Laboratory using the [employer] Blood Culture ID Panel. This test is FDA cleared for in vitro diagnostic use and has been verified and approved by the [facility] Clinical Microbiologylaboratory for clinical use. Reference Range: Not Detected Urinalysis w/Microscopic (02/08/2017 3:18 AM) Component Value Ref Range Color, UA Yellow Clarity, UA Clear Specific [place], UA 1.016 1.001 - 1.035 pH, UA 6.5 5.0 - 8.0 Protein, UA 50 mg/dL (A) Negative Glucose, UA Negative Negative Ketones, UA Negative Negative Bilirubin, UA Negative Negative Blood, UA Moderate (A) Negative Nitrite, UA Negative Negative Leukocytes, UA Negative Negative Urobilinogen, UA 0.2 0.2 - 1.0 mg/dL RBC, UA 2 /HPF WBC, UA <1 /HPF Squam Epithel, UA <1 /HPF Amorphous Crystals Occasional Specimen Source Urine, Malhotra Specimen Performing Laboratory Urine - Urine, [address] [address] Urine culture (02/08/2017 12:35 AM)Only the most recent of3 resultswithin the time period is included. Component Value Ref Range Result No growth Specimen Performing Laboratory Urine - Urine, [address] [address] Sputum Culture + Gram Stain (02/08/2017 12:34 AM)Only the most recent of2 resultswithin the time period is included. Component Value Ref Range Result No growth Gram Stain Result 1+ WBCs Gram Stain Result 10-15 epithelial cells Gram Stain Result 1+ gram positive rods Gram Stain Result <1+ budding yeast Specimen Performing Laboratory Sputum - Suctioned [address] [address] US abdomen limited (02/05/2017 3:36 AM) Specimen Performing Laboratory [facility] Narrative FINAL REPORT INDICATION: r/o acute cholecystitis due to elevated wbc on TPN COMPARISON: None TECHNIQUE:Real-time transabdominal kilgore scale and color Doppler ultrasound of the abdominal right upper quadrant. FINDINGS: Liver: Size: 15.6cm. Echogenicity: Increased. Masses/lesions: None. Surface Nodularity: None. Intrahepatic bile ducts: Normal. Common bile duct: 0.3cm. MPV: 1.1cm. Gallbladder: Stones: None. Sludge: None. Wall thickness: 0.3 cm. The gallbladder is nondistended. Pericholecystic fluid: None. Sonographic Chamberlain's sign: Absent. Pancreas: Head and uncinate process: Unremarkable. Body and tail: Not well-seen. Right kidney: Size: 13.4 x 6.5 x 1.7 cm. Parenchyma: Normal echogenicity. No cysts. No stones. Hydronephrosis: None. Ascites: None. Regional Vasculature: The visible abdominal aorta, IVC and hepatic veins are patent. Additional Findings: None. IMPRESSION: Unremarkable right upper quadrant ultrasound. No sonographic evidence of cholecystitis. No biliary ductal dilation. Signed: JR Nguyen Robert MD Report Verified Date/Time:02/05/2017 04:24:48 Reading Location: [facility] CT Body Reading Room Procedure Note Interface, External Ris In - 02/05/2017 4:26 AM ENDO TECH FINAL REPORT INDICATION: r/o acute cholecystitis due to elevated wbc on TPN COMPARISON: None TECHNIQUE: Real-time transabdominal kilgore scale and color Doppler ultrasound of the abdominal right upper quadrant. FINDINGS: Liver: Size: 15.6cm. Echogenicity: Increased. Masses/lesions: None. Surface Nodularity: None. Intrahepatic bile ducts: Normal. Common bile duct: 0.3cm. MPV: 1.1cm. Gallbladder: Stones: None. Sludge: None. Wall thickness: 0.3 cm. The gallbladder is nondistended. Pericholecystic fluid: None. Sonographic Chamberlain's sign: Absent. Pancreas: Head and uncinate process: Unremarkable. Body and tail: Not well-seen. Right kidney: Size: 13.4 x 6.5 x 1.7 cm. Parenchyma: Normal echogenicity. No cysts. No stones. Hydronephrosis: None. Ascites: None. Regional Vasculature: The visible abdominal aorta, IVC and hepatic veins are patent. Additional Findings: None. IMPRESSION: Unremarkable right upper quadrant ultrasound. No sonographic evidence of cholecystitis. No biliary ductal dilation. Signed: JR Nguyen Robert MD Report Verified Date/Time: 02/05/2017 04:24:48 Reading Location: [facility] CT Body Reading Room RECORDING IN COMA/SLEEP ONLY (02/04/2017 11:39 AM) Specimen Performing Laboratory [facility] Narrative DATE OF EE02-04-2017 DATE OF REPORT: 02-04-2017 ACC: [id number] EE Start time: 11:17 Stop time: 11:38 ICD-10:R56.9 CPT Code: 05295 HISTORY: Encephalopathy, post rectal cancer surgery. MEDICATIONS THAT COULD AFFECT EEG: None TECHNICAL SUMMARY: This is a digital EEG recorded with 32 input channels on a [employer] system and then reviewed with bipolar and referential montages using the modified combinatorial system nomenclature. DESCRIPTION OF RECORD: This EEG identifies the presence of diffuse symmetric continuous mixed delta/theta frequency background slowing, at times with superimposed beta activity. There is prominent background disorganization noted.No clear posterior dominant rhythm can be discerned, and no clear state changes or evidence of reactivity are observed. SLEEP:There is no evidence of sleep architecture in this study. HV: Hyperventilation was not performed. PHOTIC STIMULATION: Photic Stimulation was not done. IMPRESSION: Abnormal EEG due to 1-Generalized, continuous, theta and delta slowing with minimal reactivity CLINICAL CORRELATION: This EEG is consistent with an underlying etiologically nonspecific mild-moderate encephalopathy. An EEG without epileptiform discharges does not exclude the possibility of epilepsy.If the clinical suspicion of epilepsy remains, consider additional EEG recordings. Leo Brandon MD Neurophysiology Fellow PGY5 Shad Jovel [facility] Neurophysiology/Epilepsy Attending Procedure Note Interface, External Ris In - 02/04/2017 1:28 PM ENDO TECH DATE OF EE02-04-2017 DATE OF REPORT: 02-04-2017 ACC: [id number] EE Start time: 11:17 Stop time: 11:38 ICD-10: R56.9 CPT Code: 11322 HISTORY: Encephalopathy, post rectal cancer surgery. MEDICATIONS THAT COULD AFFECT EEG: None TECHNICAL SUMMARY: This is a digital EEG recorded with 32 input channels on a [employer] system and then reviewed with bipolar and referential montages using the modified combinatorial system nomenclature. DESCRIPTION OF RECORD: This EEG identifies the presence of diffuse symmetric continuous mixed delta/theta frequency background slowing, at times with superimposed beta activity. There is prominent background disorganization noted. No clear posterior dominant rhythm can be discerned, and no clear state changes or evidence of reactivity are observed. SLEEP: There is no evidence of sleep architecture in this study. HV: Hyperventilation was not performed. PHOTIC STIMULATION: Photic Stimulation was not done. IMPRESSION: Abnormal EEG due to 1- Generalized, continuous, theta and delta slowing with minimal reactivity CLINICAL CORRELATION: This EEG is consistent with an underlying etiologically nonspecific mild-moderate encephalopathy. An EEG without epileptiform discharges does not exclude the possibility of epilepsy. If the clinical suspicion of epilepsy remains, consider additional EEG recordings. Leo Brandon MD Neurophysiology Fellow PGY5 Shad Jovel [facility] Neurophysiology/Epilepsy Attending Ammonia (02/04/2017 5:19 AM)Only the most recent of2 resultswithin the time period is included. Component Value Ref Range Ammonia 40 18 - 72 mol/L Specimen Performing Laboratory Blood - Line, Arterial [facility] [address] [address] MR brain without IV contrast (02/03/2017 12:15 PM) Specimen Performing Laboratory [facility] Narrative FINAL REPORT MRI brain Comparison: Head CT January 29, MRI September 29, 2015 Reason for exam: encephalopathy Encephalopathy Discussion: Multiplanar MR imaging the brain was performed using T1, T2, FLAIR, FFE, diffusion, and ADC map imaging. There are no intracranial hematomas, mass effect, hydrocephalus, shift, or extra-axial collections. Extensive chronic white matter changes are seen in both cerebral hemispheres overall worse with a few scattered associated cavitations. Deep kilgore nucleus and brainstem involvement is noted as well. There is a single diffusion restricted subcentimeter microvascular infarct of the right-sided blevins radiata region. There are no areas of abnormal large vessel territory diffusion restriction. Flow-voids are seen in the basilar and internal carotid arteries as well as in the large posterior dural sinuses. The pineal, sella, and craniocervical junction regions are unremarkable. The visualized orbital contents, paranasal sinuses, skullbase and surrounding soft tissues are unremarkable.. Impressions: Extensive chronic white matter changes in a single diffusion restricted small insult right blevins radiata region. No hematoma or mass effect. Signed: Neris Greenberg MD Report Verified Date/Time:02/03/2017 13:09:03 Reading Location: [facility] Neuro Reading Room Procedure Note Interface, External Ris In - 02/03/2017 1:11 PM ENDO TECH FINAL REPORT MRI brain Comparison: Head CT January 29, MRI September 29, 2015 Reason for exam: encephalopathy Encephalopathy Discussion: Multiplanar MR imaging the brain was performed using T1, T2, FLAIR, FFE, diffusion, and ADC map imaging. There are no intracranial hematomas, mass effect, hydrocephalus, shift, or extra-axial collections. Extensive chronic white matter changes are seen in both cerebral hemispheres overall worse with a few scattered associated cavitations. Deep kilgore nucleus and brainstem involvement is noted as well. There is a single diffusion restricted subcentimeter microvascular infarct of the right-sided blevins radiata region. There are no areas of abnormal large vessel territory diffusion restriction. Flow-voids are seen in the basilar and internal carotid arteries as well as in the large posterior dural sinuses. The pineal, sella, and craniocervical junction regions are unremarkable. The visualized orbital contents, paranasal sinuses, skullbase and surrounding soft tissues are unremarkable. . Impressions: Extensive chronic white matter changes in a single diffusion restricted small insult right blevins radiata region. No hematoma or mass effect. Signed: Neris Greenberg MD Report Verified Date/Time: 02/03/2017 13:09:03 Reading Location: [facility] Neuro Reading Room Comprehensive metabolic panel (02/03/2017 3:13 AM)Only the most recent of2 resultswithin the time period is included. Component Value Ref Range Protein, Total 5.5 (L) 6.0 - 8.3 gm/dL Albumin 2.3 (L) 3.5 - 5.0 g/dL Alkaline Phosphatase 109 40 - 150 U/L Total Bilirubin 0.3 0.2 - 1.2 mg/dL Sodium 159 (H) 136 - 145 meq/L Potassium 3.7 3.5 - 5.1 meq/L Chloride 120 (H) 98 - 107 meq/L CO2 30 (H) 22 - 29 meq/L BUN 43 (H) 7 - 21 mg/dL Creatinine 1.37 (H) 0.57 - 1.25 mg/dL Glucose 271 (H) 70 - 105 mg/dL Calcium 7.9 (L) 8.4 - 10.2 mg/dL AST 22 5 - 34 U/L ALT 12 6 - 55 U/L EGFR 53Comment: ESTIMATED GFR IS NOT ACCURATE mL/min/1.73 sq m CREATININE CLEARANCE IN PREDICTING GLOMERULAR FILTRATION RATE. ESTIMATED GFR IS NOT APPLICABLE FOR DIALYSIS PATIENTS. Specimen Performing Laboratory Blood [facility] [address] [place] [address], [place] [address] CT LIMITED/LOCALIZED FOLLOW-UP (02/02/2017 2:45 PM) Specimen Performing Laboratory [facility] Narrative FINAL REPORT Limited CT of the pelvis CLINICAL HISTORY:Pelvic fluid collection TECHNIQUE: Noncontrast CT of the pelvis is performed in anticipation of CT-guided procedure. This exam was performed according to our departmental dose-optimization program which includes automated exposure control, adjustment of the mA and/or kV according to patient size and/or use of iterative reconstruction technique. COMPARISON FILM:CT of the abdomen and pelvis from 01/31/2017 IMPRESSION: Limited pelvic CT is performed in anticipation of CT-guided drainage. The patient could not be positioned prone as he was intubated. Attempt made to position patient left lateral decubitus, however this was difficult given patient's body habitus. The patient's pelvis was scanned there is straightening a persistent fluid collection measuring 5 cm in transverse dimension adjacent to the colonic anastomosis. A safe window for drain placement was not present. Given these findings, the procedure was terminated. Signed: Hank Gray MD Report Verified Date/Time:02/02/2017 15:47:41 Reading Location: [address] Body Reading Room Procedure Note Interface, External Ris In - 02/02/2017 3:56 PM ENDO TECH FINAL REPORT Limited CT of the pelvis CLINICAL HISTORY: Pelvic fluid collection TECHNIQUE: Noncontrast CT of the pelvis is performed in anticipation of CT-guided procedure. This exam was performed according to our departmental dose-optimization program which includes automated exposure control, adjustment of the mA and/or kV according to patient size and/or use of iterative reconstruction technique. COMPARISON FILM: CT of the abdomen and pelvis from 01/31/2017 IMPRESSION: Limited pelvic CT is performed in anticipation of CT-guided drainage. The patient could not be positioned prone as he was intubated. Attempt made to position patient left lateral decubitus, however this was difficult given patient's body habitus. The patient's pelvis was scanned there is straightening a persistent fluid collection measuring 5 cm in transverse dimension adjacent to the colonic anastomosis. A safe window for drain placement was not present. Given these findings, the procedure was terminated. Signed: Hank Gray MD Report Verified Date/Time: 02/02/2017 15:47:41 Reading Location: [facility] C013Y CT Body Reading Room Clostridium difficile Toxin PCR (02/02/2017 12:30 PM)Only the most recent of2 resultswithin the time period is included. Component Value Ref Range C.Diff Toxin, PCR Not Detected Not Detected Specimen Performing Laboratory Stool - Colostomy [facility] [id number] [place] [address] This qualitative real-time polymerase chain reaction assay detects the tcdB gene, encoded on the C.difficile pathogenicity locus (PaLoc).The product of tcdB , toxin B, is a cytotoxin essential for causing C.difficile-associated disease (CDAD) and is found in virtually all toxigenic C.difficile. This assay is performed for patients suspected of having either community- acquired or nosocomial CDAD.Accordingly, only symptomatic patients should be tested and formed stools will be rejected unless ileus is present (i.e., specified when ordering).Patients may be colonized with toxigenic C.difficile strains not causing active disease; therefore, clinical correlation is needed when deciding how to manage patients with a positive test result. The assay has not been validated as a test of cure as amplifiable nucleic acid may persist after effective treatment; therefore, follow-up testing of a positive result is not recommended. Urinalysis w/Microscopic + Reflex to Culture (02/02/2017 10:39 AM)Only the most recent of2 resultswithin the time period is included. Component Value Ref Range Color, UA Yellow Clarity, UA Hazy Specific [place], UA 1.022 1.001 - 1.035 pH, UA 5.0 5.0 - 8.0 Protein, UA 20 mg/dL (A) Negative Glucose, UA Negative Negative Ketones, UA Trace (A) Negative Bilirubin, UA Negative Negative Blood, UA Trace (A) Negative Nitrite, UA Negative Negative Leukocytes, UA Small (A) Negative Urobilinogen, UA 0.2 0.2 - 1.0 mg/dL RBC, UA 9 /HPF WBC, UA 35 /HPF Mucus Few Squam Epithel, UA <1 /HPF Amorphous Crystals Moderate Specimen Source Specimen Performing Laboratory Urine - Urine, Malhotra [address] [address] Hepatic function panel (01/31/2017 5:03 AM) Component Value Ref Range Protein, Total 5.8 (L) 6.0 - 8.3 gm/dL Albumin 2.5 (L) 3.5 - 5.0 g/dL Total Bilirubin 0.4 0.2 - 1.2 mg/dL Bilirubin, Direct 0.2 0.1 - 0.5 mg/dL Alkaline Phosphatase 182 (H) 40 - 150 U/L AST 23 5 - 34 U/L ALT 13 6 - 55 U/L Specimen Performing Laboratory Blood - Line, Arterial [address] [address] [address] abdomen/pelvis without iv contrast (01/31/2017 1:29 AM) Specimen Performing Laboratory [facility] Narrative FINAL REPORT CT scan of the abdomen and pelvis: CLINICAL HISTORY: Infection. Status post low anterior resection 01/21/2017. Ileostomy 01/24/2017. TECHNIQUE: CT scan of the abdomen and pelvis with oral contrast. Dose modulation, iterative reconstruction, and/or weight based adjustment of the mA/kV was utilized to reduce the radiation dose to as low as reasonably achievable. FINDINGS: Bilateral lower lobe atelectasis. Small right pleural effusion. Normal-sized heart. No pericardial effusion. Normal liver and pancreas. Splenomegaly. High density intraluminal gallbladder contents likely representing vicarious excretion of contrast. An NG tube and feeding tube terminate in the stomach. Right lower quadrant ileostomy. Colonic diverticulosis. Wall thickening throughout the colon. 5.9 x 4.9 x 6.7 cm focal collection of fluid and air in the vicinity of the rectal suture line concerning for anastomotic leak. No mesenteric or retroperitoneal lymphadenopathy. Scattered atherosclerotic aortic calcifications. Normal adrenal glands and kidneys. Normal seminal vesicles and prostate gland. Collapsed bladder containing a Malhotra catheter. Two pelvic surgical drains one of which terminates in the anterior midline pelvis and the other which terminates in the left side of the pelvis. Postsurgical drains exit the left anterolateral pelvic wall. No significant fluid collections surrounding the pelvic surgical drains. Small volume perihepatic, perisplenic, and pelvic free fluid. No acute or significant skeletal abnormalities. Open wound in the midline ventral pelvic wall fat. Residual focal collection of air in the right anterolateral pelvic wall subcutaneous fat. 1.5 x 4.3 x 3.8 cm walled off fluid collection in the right anterolateral abdominal wall subcutaneous fat stable when compared to 01/24/2017. IMPRESSION: 1. 5.9 x 4.9 x 6.7 cm focal collection of fluid and air in the vicinity of the rectal suture line concerning for anastomotic leak. The fluid collection has increased in size when compared to 01/24/2017. 2. Wall thickening throughout the colon for which colitis is a consideration. 3. Colonic diverticulosis. 4. Small volume abdominal and pelvic free fluid. 5. 1.5 x 4.3 x 3.8 cm walled off fluid collection in the right anterolateral abdominal wall subcutaneous fat stable when compared to 01/24/2017. 6. Recent low anterior resection and ileostomy creation. Signed: David Romo MD Report Verified Date/Time:01/31/2017 02:14:26 Reading Location: [address] Consult Reading Room Procedure Note Interface, External Ris In - 01/31/2017 2:16 AM ENDO TECH FINAL REPORT CT scan of the abdomen and pelvis: CLINICAL HISTORY: Infection. Status post low anterior resection 01/21/2017. Ileostomy 01/24/2017. TECHNIQUE: CT scan of the abdomen and pelvis with oral contrast. Dose modulation, iterative reconstruction, and/or weight based adjustment of the mA/kV was utilized to reduce the radiation dose to as low as reasonably achievable. FINDINGS: Bilateral lower lobe atelectasis. Small right pleural effusion. Normal-sized heart. No pericardial effusion. Normal liver and pancreas. Splenomegaly. High density intraluminal gallbladder contents likely representing vicarious excretion of contrast. An NG tube and feeding tube terminate in the stomach. Right lower quadrant ileostomy. Colonic diverticulosis. Wall thickening throughout the colon. 5.9 x 4.9 x 6.7 cm focal collection of fluid and air in the vicinity of the rectal suture line concerning for anastomotic leak. No mesenteric or retroperitoneal lymphadenopathy. Scattered atherosclerotic aortic calcifications. Normal adrenal glands and kidneys. Normal seminal vesicles and prostate gland. Collapsed bladder containing a Malhotra catheter. Two pelvic surgical drains one of which terminates in the anterior midline pelvis and the other which terminates in the left side of the pelvis. Postsurgical drains exit the left anterolateral pelvic wall. No significant fluid collections surrounding the pelvic surgical drains. Small volume perihepatic, perisplenic, and pelvic free fluid. No acute or significant skeletal abnormalities. Open wound in the midline ventral pelvic wall fat. Residual focal collection of air in the right anterolateral pelvic wall subcutaneous fat. 1.5 x 4.3 x 3.8 cm walled off fluid collection in the right anterolateral abdominal wall subcutaneous fat stable when compared to 01/24/2017. IMPRESSION: 1. 5.9 x 4.9 x 6.7 cm focal collection of fluid and air in the vicinity of the rectal suture line concerning for anastomotic leak. The fluid collection has increased in size when compared to 01/24/2017. 2. Wall thickening throughout the colon for which colitis is a consideration. 3. Colonic diverticulosis. 4. Small volume abdominal and pelvic free fluid. 5. 1.5 x 4.3 x 3.8 cm walled off fluid collection in the right anterolateral abdominal wall subcutaneous fat stable when compared to 01/24/2017. 6. Recent low anterior resection and ileostomy creation. Signed: David Romo MD Report Verified Date/Time: 01/31/2017 02:14:26 Reading Location: [address] Consult Reading Room Lactic acid, venous, whole blood (01/30/2017 10:24 AM) Component Value Ref Range Lactate, Venous 1.5 0.5 - 2.2 mmol/L Specimen Performing Laboratory [place] [address] Narrative Effective 06/29/2015: Units/Reference Range Change New: 0.5-2.2 mmol/LPrevious: 5-20 mg/dL CT brain without IV contrast (01/29/2017 10:25 PM) Specimen Performing Laboratory [facility] Narrative FINAL REPORT Clinical history : Decreased alertness. Less responsive. On heparin drip. Concern for CVA. Comparison study: CT scan of the brain 09/28/2015 Technique: Contiguous axial images were obtained of the brain without intravenous contrast. This exam was performed according to our departmental dose optimization program, which includes automated exposure control, adjustment of the mA and/or kV according to the patient's size and/or use of the iterative reconstruction technique. FINDINGS: Nonspecific periventricular and subcortical white matter changes suggestive of chronic microangiopathy. No hydrocephalus, mass, midline shift, cisternal effacement, intraparenchymal hemorrhage, or extra axial fluid collection. No acute infarction is identified. Atherosclerotic calcifications of the intracranial circulation. Mild bilateral maxillary sinus mucosal thickening. The visualized paranasal sinuses and tympanomastoid cavities are otherwise well pneumatized. Normal orbital contents, skull base, and calvarium. Impression: No acute abnormalities. Signed: David Romo MD Report Verified Date/Time:01/29/2017 22:34:49 Reading Location: [address] Ortho Consult Reading Room Procedure Note Interface, External Ris In - 01/29/2017 10:37 PM ENDO TECH FINAL REPORT Clinical history : Decreased alertness. Less responsive. On heparin drip. Concern for CVA. Comparison study: CT scan of the brain 09/28/2015 Technique: Contiguous axial images were obtained of the brain without intravenous contrast. This exam was performed according to our departmental dose optimization program, which includes automated exposure control, adjustment of the mA and/or kV according to the patient's size and/or use of the iterative reconstruction technique. FINDINGS: Nonspecific periventricular and subcortical white matter changes suggestive of chronic microangiopathy. No hydrocephalus, mass, midline shift, cisternal effacement, intraparenchymal hemorrhage, or extra axial fluid collection. No acute infarction is identified. Atherosclerotic calcifications of the intracranial circulation. Mild bilateral maxillary sinus mucosal thickening. The visualized paranasal sinuses and tympanomastoid cavities are otherwise well pneumatized. Normal orbital contents, skull base, and calvarium. Impression: No acute abnormalities. Signed: David Romo MD Report Verified Date/Time: 01/29/2017 22:34:49 Reading Location: [facility] C013X Ortho Consult Reading Room Triglycerides (01/28/2017 4:58 PM) Component Value Ref Range Triglycerides 91 mg/dL Specimen Performing Laboratory Blood - Line, Arterial [facility] [address] [address] Narrative TRIGLYCERIDE REFERENCE RANGE Low Risk<150 Borderline Risk 150-199 High [id number] Very High Risk >=500 PT/aPTT (01/27/2017 1:59 AM) Component Value Ref Range Protime 16.5 (H) 11.7 - 14.7 seconds INR 1.3 <=5.9 PTT 80.0 (H) 22.5 - 36.0 seconds Specimen Performing Laboratory Blood [address] [address] Narrative RECOMMENDED COUMADIN/WARFARIN INR THERAPY RANGES STANDARD DOSE: 2.0 - 3.0 Includes: PROPHYLAXIS for venous thrombosis, systemic embolization; TREATMENT for venous thrombosis and/or pulmonary embolus. HIGH RISK: Target INR is 2.5-3.5 for patients with mechanical heart valves. Creatine Kinase (CK), Total and MB (01/26/2017 11:36 PM)Only the most recent of2 resultswithin the time period is included. Component Value Ref Range Total CK 2021 (H) 29 - 200 U/L CK-MB 4.2 0.0 - 6.6 ng/mL MB Relative Index 0.2 % Specimen Performing Laboratory Blood [address] [address] Narrative CK-MB Reference Range: <6.7Normal 6.7-10.0Borderline >10.0 Abnormal Venous doppler legs bilateral (01/25/2017 3:55 PM) Component Value Ref Range Ejection Fraction Specimen Performing Laboratory [facility] Imp[facility] Right Impression 1. There is no deep venous obstruction in the common femoral, profunda femoral, femoral, posterior tibial or peroneal veins. 2. There is partial echogenic deep venous obstruction in the popliteal vein. 3. There is no superficial venous obstruction in the great saphenous vein. Left Impression 1. There is no deep venous obstruction in the common femoral, profunda femoral, femoral, popliteal, posterior tibial or peroneal veins. 2. There is no superficial venous obstruction in the great saphenous vein. Conclusions Summary Venous duplex imaging and compression of the bilateral lower extremities were performed. The veins were adequately visualized. The right deep venous system was positive with chronic thrombus. The left venous system was patent and compressible with no evidence of thrombus. Signature Velocities are measured in cm/s ; Diameters are measured in cm Narrative PV LAB - Lower Extremities DVT Study Demographics Patient NameTERRELL PALUMBO Date of Study 01/25/2017 CAN Age 57 Visit [id number] Gender Male Date of [birth year] [id number] Physician Stabber Marcia Sales MD, CALIXTO Matias Procedure Type of Study: Veins: Lower Extremities DVT Study, VENOUS DOPPLER LEG, BILATERAL. Indications for Study:Evaluate for DVT. Patient Status:STAT. Study Location:Vascular Lab. Technical Quality:Adequate visualization. - Results were reported to: CATE Cline @ 16:07. Risk Factors History of Disease + +----+ + !Diagnosis !Date!Comments! + +----+ + !History/Risk Factors: !!DM, HTN, Rectal Cancer! + +----+ + Procedure Note Interface, External Ris In - 01/25/2017 5:42 PM ENDO TECH PV LAB - Lower Extremities DVT Study Demographics Patient Name TERRELL PALUMBO Date of Study 01/25/2017 CAN Age 57 Visit Number [id number] Gender Male Date of 1960 Number Referring Stephany Barone Room Number [id number] Physician Stabber Stephanie Cifuentes Interpreting Jacque Sharma T Physician , CALIXTO Matias Procedure Type of Study: Veins: Lower Extremities DVT Study, VENOUS DOPPLER LEG, BILATERAL. Indications for Study:Evaluate for DVT. Patient Status:STAT. Study Location:Vascular Lab. Technical Quality:Adequate visualization. - Results were reported to: CATE Cline @ 16:07. Risk Factors History of Disease + +----+ + !Diagnosis !Date!Comments ! + +----+ + !History/Risk Factors: ! !DM, HTN, Rectal Cancer ! + +----+ + Impressions Right Impression 1. There is no deep venous obstruction in the common femoral, profunda femoral, femoral, posterior tibial or peroneal veins. 2. There is partial echogenic deep venous obstruction in the popliteal vein. 3. There is no superficial venous obstruction in the great saphenous vein. Left Impression 1. There is no deep venous obstruction in the common femoral, profunda femoral, femoral, popliteal, posterior tibial or peroneal veins. 2. There is no superficial venous obstruction in the great saphenous vein. Conclusions Summary Venous duplex imaging and compression of the bilateral lower extremities were performed. The veins were adequately visualized. The right deep venous system was positive with chronic thrombus. The left venous system was patent and compressible with no evidence of thrombus. Signature Velocities are measured in cm/s ; Diameters are measured in cm Cortisol (01/25/2017 1:50 PM) Component Value Ref Range Cortisol, Total 29.8 (H) 3.7 - 19.4 ug/dL Specimen Performing Laboratory Blood [address] [address] Vancomycin level, trough (01/25/2017 1:50 PM) Component Value Ref Range Vancomycin Tr 11.3 10.0 - 20.0 ug/mL Specimen Performing Laboratory Blood [address] [address] Narrative Do not give scheduled vanc dose until level has returned. Hold dose if level is > 20. Thank you! 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 Clinical History HGB 14.1 HCT 42.6 % STROKE HTN HYPOTHYROID DM TIA Contrast Medium: Definity. Height: 76 inches Weight: 148.32 kg (327 lbs) BSA: 2.73 m^2 BMI: 39.8 kg/m^2 HR: 89 bpm BP: 96/63 mmHg Summary 1. Normal LV size. Mild LV dysfunction. LVEF is 40-44%. 2. Diastology: Grade 1 diastolic dysfunction. 3. RV is severely enlarged. Depressed RV function. 4. No significant valvular heart disease. 5. Mild tricuspid regurgitation. Estimated PASP is 25-30 mm Hg. 6. No pericardial effusion noted. Previous Study In comparison with the prior exam 09-29-15 the following changes are noted: LV systolic function has declined .The RV is severely enlarged. Signature Findings Technical Quality: Technically fair exam. Left Ventricle No evidence of LV hypertrophy. Normal (cardiac index 2-3 L/min/m2) cardiac output state at rest is noted. All of the LV segments are mildly hypokinetic . Global LV systolic function mildly reduced . LVEF by Santoyo's method of disk assessment is mildly reduced ( 40-44%) . The LVEF was measured using Santoyo's bi -plane method of disk . Grade 1 diastolic dysfunction (impaired relaxation and low-normal LA pressure). LV endocardium is adequately visualized with IV ultrasound enhancing agent. The left ventricle is chamber size (by vol index) is normal (male - LVED vol - 34-74ml/m2). Left AtriumLA size is normal (16-34 ml/m2) . Right VentricleRV chamber size is severely enlarged . Global RV systolic function is depressed. Right Atrium RA cavity size is normal . Aortic Valve AoV cusp mobility is normal . A trace of aortic regurgitation. AoV thickening primarily involves the non- coronary cups(s). Mitral Valve Mild MV leaflet thickening. Mild mitral annular calcification. Tricuspid ValveMild tricuspid regurgitation. Estimated peak systolic PA pressure is 25-30 mmHg . Pulmonic Valve A trace of pulmonary regurgitation. Normal PV structure. AortaAortic root size (Sinus of Valsalva diameter) is mildly dilated. 4.2 cm Proximal ascending aorta size mildly dilated . 4.2 cm PericardiumNo pericardial effusion is visualized. IVC/SVC/PA/PV/PleuralThe right upper pulmonary vein (RUPV) is normal . The estimated RA pressure by IVC dynamics 5-10mmHg . Chambers/Structures Left Atrium LA Volume: 43.37 ml LA Area: 18.54 cm^ 2 LA Vol. Index: 16 ml/m^2 Left Ventricle LV Septum Diastolic: 1.03 cm LV PW Diastolic: 1.05 cm LVEDV Santoyo's:103.64 ml LVESV Santoyo's:60.07 ml LVEF Santoyo's: 42 % LVEDVI: 38 ml/m^2 LVOT Diameter: 2.38 cmLVESVI: 22 ml/m^2 Right Ventricle TAPSE: 1.37 cm Aorta Ao Root S of Maryanne.: 4.21 cmAscending Aorta: 4.17 cm Doppler/Quantitative Measurements Mitral Valve MV Peak E-Wave: 0.4 m/s MV Peak A-Wave: 0.55 m/s E/ A Ratio: 0.72 Peak Gradient: 0.63 mmHg Deceleration Time: 309.6 msec MV Chucho. 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 Clinical History HGB 14.1 HCT 42.6 % STROKE HTN HYPOTHYROID DM TIA Contrast Medium: Definity. Height: 76 inches Weight: 148.32 kg (327 lbs) BSA: 2.73 m^2 BMI: 39.8 kg/m^2 HR: 89 bpm BP: 96/63 mmHg Summary 1. Normal LV size. Mild LV dysfunction. LVEF is 40-44%. 2. Diastology: Grade 1 diastolic dysfunction. 3. RV is severely enlarged. Depressed RV function. 4. No significant valvular heart disease. 5. Mild tricuspid regurgitation. Estimated PASP is 25-30 mm Hg. 6. No pericardial effusion noted. Previous Study In comparison with the prior exam 8-4-16 the following changes are noted: LV systolic function has declined .The RV is severely enlarged. Signature Findings Technical Quality: Technically fair exam. Left Ventricle No evidence of LV hypertrophy. Normal (cardiac index 2-3 L/min/m2) cardiac output state at rest is noted. All of the LV segments are mildly hypokinetic . Global LV systolic function mildly reduced . LVEF by Santoyo's method of disk assessment is mildly reduced (40-44%) . The LVEF was measured using Santoyo's bi-plane method of disk . Grade 1 diastolic dysfunction (impaired relaxation and low-normal LA pressure). LV endocardium is adequately visualized with IV ultrasound enhancing agent. The left ventricle is chamber size (by vol index) is normal (male - LVED vol - 34-74ml/m2). Left Atrium LA size is normal (16-34 ml/m2) . Right Ventricle RV chamber size is severely enlarged . Global RV systolic function is depressed. Right Atrium RA cavity size is normal . Aortic Valve AoV cusp mobility is normal . A trace of aortic regurgitation. AoV thickening primarily involves the non- coronary cups(s). Mitral Valve Mild MV leaflet thickening. Mild mitral annular calcification. Tricuspid Valve Mild tricuspid regurgitation. Estimated peak systolic PA pressure is 25-30 mmHg . Pulmonic Valve A trace of pulmonary regurgitation. Normal PV structure. Aorta Aortic root size (Sinus of Valsalva diameter) is mildly dilated. 4.2 cm Proximal ascending aorta size mildly dilated . 4.2 cm Pericardium No pericardial effusion is visualized. IVC/SVC/PA/PV/Pleural The right upper pulmonary vein (RUPV) is normal . The estimated RA pressure by IVC dynamics 5-10mmHg . Chambers/Structures Left Atrium LA Volume: 43.37 ml LA Area: 18.54 cm^2 LA Vol. Index: 16 ml/m^2 Left Ventricle LV Septum Diastolic: 1.03 cm LV PW Diastolic: 1.05 cm LVEDV Santoyo's:103.64 ml LVESV Santoyo's:60.07 ml LVEF Santoyo's: 42 % LVEDVI: 38 ml/m^2 LVOT Diameter: 2.38 cm LVESVI: 22 ml/m^2 Right Ventricle TAPSE: 1.37 cm Aorta Ao Root S of Maryanne.: 4.21 cm Ascending Aorta: 4.17 cm Doppler/Quantitative Measurements Mitral Valve MV Peak E-Wave: 0.4 m/s MV Peak A-Wave: 0.55 m/s E/A Ratio: 0.72 Peak Gradient: 0.63 mmHg Deceleration Time: 309.6 msec MV Chucho. Peak: Tissue Doppler E' Lateral Velocity: 0.08 m/s E/E': 4.78 LVOT Peak Velocity: 1.16 m/s Peak Gradient: 5.36 mmHg Mean Velocity: 0.79 m/s Mean Gradient: 2.81 mmHg LVOT Diameter: 2.38 cm LVOT VTI: 15.38 cm LVOT Area: 4.45 cm^2 LVOT SV:68.39 ml LVOT CO: 6.09 l/min LVOT CI: 2.23 l/min/m^2 Lactic acid, arterial, whole blood (01/25/2017 4:02 AM)Only the most recent of3 resultswithin the time period is included. Component Value Ref Range Lactate, Art 2.4 (H)Comment: Specimen slightly hemolyzed 0.5 - 2.2 mmol/L Specimen Performing Laboratory Blood, Ar[place]ial [place] [address] Narrative Effective 06/29/2015: Units/Reference Range Change New: 0.5-2.2 mmol/LPrevious: 5-20 mg/dL [facility] (ABG,NA,K,H&H,GLUCOSE) (01/24/2017 6:53 PM) Specimen Performing Laboratory Blood, Arterial Narrative The following orders were created for panel order [facility] (ABG,NA,K,H&H,GLUCOSE). Procedure Abnormality Status --------- ------ Blood gas, arterial[[id number]]AbnormalFinal result Sodium Na-Stat Lab[[id number]] AbnormalFinal result Potassium-Stat Lab[[id number]] NormalFinal result Glucose-Stat Lab[[id number]] AbnormalFinal result HGB/HCT (H&H)-Stat Lab[[id number]] AbnormalFinal result Please view results for these tests on the individual orders. Potassium-Stat Lab (01/24/2017 6:53 PM) Component Value Ref Range Potassium 4.1 3.6 - 5.5 meq/L Specimen Performing Laboratory Blood, [address] [address] Sodium Na-Stat Lab (01/24/2017 6:53 PM) Component Value Ref Range Sodium 133 (L) 135 - 148 meq/L Specimen Performing Laboratory Blood, [address] [address] Glucose-Stat Lab (01/24/2017 6:53 PM) Component Value Ref Range Glucose 280 (H) 70 - 110 mg/dL Specimen Performing Laboratory Blood, [address] [address] HGB/HCT (H&H)-Stat Lab (01/24/2017 6:53 PM) Component Value Ref Range Hemoglobin 18.0 (H) 13.0 - 16.8 g/dL Hematocrit 53.0 (H) 40.0 - 50.0 % Specimen Performing Laboratory Blood, [address] [address] AFB culture + smear (01/24/2017 6:37 PM) Component Value Ref Range Result No acid-fast bacilli isolated in 42 days AFB Smear No acid fast bacilli seen Specimen Performing Laboratory Wound - Abdominal Cavity [address] [address] Anaerobic culture (01/24/2017 6:37 PM) Component Value Ref Range Result Result 2+ Bacteroides fragilis group (A) Specimen Performing Laboratory Wound - Abdominal Cavity [address] [address] Surgically obtained culture + gram stain (01/24/2017 6:37 PM) Component Value Ref Range Result Result 3+ Escherichia coli (A) Result 2+ Enterococcus species (A) Result <1+ Viridans Streptococcus (A) Result 2+ Pseudomonas aeruginosa (A) Gram Stain Result <1+ WBCs Gram Stain Result <1+ gram negative rods Gram Stain Result <1+ gram positive rods Gram Stain Result <1+ gram positive cocci in chains Specimen Performing Laboratory Wound - Abdominal [address] [place] [address] Organism Antibiotic Method Susceptibility Escherichia coli Amikacin <=2: Susceptible Comment: This is a corrected result. Previous result was Susceptible on 2016 at 1650 ENDO TECH Escherichia coli Ampicillin + Sulbactam 16: Resistant Escherichia coli Aztreonam <=1: Susceptible Escherichia coli Cefepime <=1: Susceptible Escherichia coli Cefoxitin <=4: Susceptible Escherichia coli Ceftazidime <=1: Susceptible Escherichia coli Ceftriaxone <=1: Susceptible Escherichia coli Ertapenem <=0.5: Susceptible Escherichia coli Gentamicin <=1: Susceptible Escherichia coli Levofloxacin <=0.12: Susceptible Escherichia coli Meropenem <=0.25: Susceptible Escherichia coli Piperacillin + Tazobactam <=4: Susceptible Escherichia coli Tetracycline >=16: Resistant Escherichia coli Tobramycin <=1: Susceptible Escherichia coli Trimethoprim + Sulfamethoxazole <=20: Susceptible Enterococcus species Ampicillin <=2: Susceptible Enterococcus species Linezolid 2: Susceptible Enterococcus species Vancomycin 2: Susceptible Pseudomonas aeruginosa Amikacin <=8: Susceptible Pseudomonas aeruginosa Aztreonam 4: Susceptible Pseudomonas aeruginosa Cefepime <=4: Susceptible Pseudomonas aeruginosa Ceftazidime 2: Susceptible Pseudomonas aeruginosa Ciprofloxacin <=0.5: Susceptible Pseudomonas aeruginosa Doripenem 1: Susceptible Pseudomonas aeruginosa Gentamicin <=2: Susceptible Pseudomonas aeruginosa Imipenem 2: Susceptible Pseudomonas aeruginosa Levofloxacin <=1: Susceptible Pseudomonas aeruginosa Meropenem 1: Susceptible Pseudomonas aeruginosa Piperacillin <=16: Susceptible Pseudomonas aeruginosa Piperacillin + Tazobactam <=8: Susceptible Pseudomonas aeruginosa Tobramycin <=2: Susceptible Fungus culture + smear (01/24/2017 6:37 PM) Component Value Ref Range Result No fungus isolated in 28 days Fungus Smear No fungi seen Specimen Performing Laboratory Body Fluid - Abdominal Cavity [place] [address] [place] [address] SPIN/CONCENTRATION CHARGE (01/24/2017 6:37 PM) Component Value Ref Range Concentration charged Done Specimen Performing Laboratory Wound - Abdominal Cavity [facility] [address] [place] [address] CT chest with IV contrast (01/24/2017 3:00 PM) Specimen Performing Laboratory GE RIS Narrative FINAL REPORT CT of the Chest, abdomen and pelvis dated 01/24/2017 Clinical information: Aspiration, known or suspected Comment:Axial images of the chest, abdomen, and pelvis were obtained from thoracic inlet to the pubic symphysis with GI and intravenous contrast. This exam was performed according to our departmental dose-optimization program, which includes automated exposure control, adjustment of the mA and/or kV according to patient size and/or use of interactive reconstruction technique. The study is somewhat limited secondary to motion artifact. Heart is normal in size.Great vessels are unremarkable. No adenopathy in the mediastinum or perihilar region. Trachea and mainstem bronchi are patent. Subsegmental atelectasis is seen in both lung bases. The rest of the lungs are clear.No nodular, mass lesion or airspace disease is noted.No interstitial disease or bronchiectasis is present. No pleural effusion or pleural based mass is seen. Subcutaneous emphysema is seen in the left lateral chest wall. Liver and spleen are normal in size. No focal lesion is seen in the liver or the spleen. Gallbladder is distended. No gallstone or biliary dilatation is noted. Pancreas is atrophic. There are adrenals are unremarkable. Both kidneys are normal in size and functioning with bilateral excretion. A 1.6 x 1.8 cm cyst is seen in the midpole right kidney. Patient is status post lower anterior resection. Extraluminal contrast collections are seen in the perirectal region and mid pelvis. The small bowel is normal in caliber. Appendix is not visualized. Pneumoperitoneum is noted. Subcutaneous emphysema is seen in the abdomen and pelvis. Trace amount of free fluid is seen in the perihepatic space. Impression: 1. Extraluminal GI contrast collections in the perirectal region and mid pelvis suggestive of anastomotic leak. 2. Pneumoperitoneum. 3. Subcutaneous gas emphysema in the chest, abdomen and pelvis 4. Trace ascites in the abdomen. 5. Distended gallbladder without gallstone or biliary dilatation. 6. Bibasilar subsegmental atelectasis. Signed: Monster Forbes MD Report Verified Date/Time:01/24/2017 16:23:54 Reading Location: [facility] B1 C013Y CT Body Reading Room Procedure Note Interface, External Ris In - 01/24/2017 4:26 PM ENDO TECH FINAL REPORT CT of the Chest, abdomen and pelvis dated 01/24/2017 Clinical information: Aspiration, known or suspected Comment: Axial images of the chest, abdomen, and pelvis were obtained from thoracic inlet to the pubic symphysis with GI and intravenous contrast. This exam was performed according to our departmental dose-optimization program, which includes automated exposure control, adjustment of the mA and/or kV according to patient size and/or use of interactive reconstruction technique. The study is somewhat limited secondary to motion artifact. Heart is normal in size. Great vessels are unremarkable. No adenopathy in the mediastinum or perihilar region. Trachea and mainstem bronchi are patent. Subsegmental atelectasis is seen in both lung bases. The rest of the lungs are clear. No nodular, mass lesion or airspace disease is noted. No interstitial disease or bronchiectasis is present. No pleural effusion or pleural based mass is seen. Subcutaneous emphysema is seen in the left lateral chest wall. Liver and spleen are normal in size. No focal lesion is seen in the liver or the spleen. Gallbladder is distended. No gallstone or biliary dilatation is noted. Pancreas is atrophic. There are adrenals are unremarkable. Both kidneys are normal in size and functioning with bilateral excretion. A 1.6 x 1.8 cm cyst is seen in the midpole right kidney. Patient is status post lower anterior resection. Extraluminal contrast collections are seen in the perirectal region and mid pelvis. The small bowel is normal in caliber. Appendix is not visualized. Pneumoperitoneum is noted. Subcutaneous emphysema is seen in the abdomen and pelvis. Trace amount of free fluid is seen in the perihepatic space. Impression: 1. Extraluminal GI contrast collections in the perirectal region and mid pelvis suggestive of anastomotic leak. 2. Pneumoperitoneum. 3. Subcutaneous gas emphysema in the chest, abdomen and pelvis 4. Trace ascites in the abdomen. 5. Distended gallbladder without gallstone or biliary dilatation. 6. Bibasilar subsegmental atelectasis. Signed: Monster Forbes MD Report Verified Date/Time: 01/24/2017 16:23:54 Reading Location: [facility] B1 C013Y CT Body Reading Room Hemoglobin A1c (01/23/2017 11:14 AM) Component Value Ref Range Hemoglobin A1C 8.2 (H) 4.3 - 6.1 % Specimen Performing Laboratory Blood [address] [address] Blood gas, venous (01/23/2017 3:25 AM) Component Value Ref Range pH, Raul 7.40 7.32 - 7.42 pCO2, Raul 50 41 - 51 mmHg pO2, Raul 18 (L) 25 - 40 mmHg O2 Sat, Raul 26.6 (L) 40.0 - 70.0 % HCO3, Raul 30 (H) 21 - 29 mmol/L Base Excess, Raul 4.3 (H) -2.0 - 3.0 mmol/L Patient Temperature 37.0 C FIO2 100.0 % Specimen Performing Laboratory Blood [address] [address] Tissue Exam (01/21/2017 6:28 PM) Component Value Ref Range Case Report Surgical Pathology Report Case: [id number] Authorizing Provider:Clemente Moreno MDCollected: 01/21/2017 1828 Ordering Location: [facility] Received: 01/21/2017 1839 SERVICES Pathologist: Bennie Peoples MD Specimens: A) - Large Intestine, Colon - Sigmoid, sigmoid and rectum for show and tell B) - Other, Distal donut C) - Other, Proximal donut DIAGNOSIS A. COLON, SIGMOID AND RECTUM, RESECTION: - ADENOCARCINOMA, MODERATELY DIFFERENTIATED, LOW GRADE - WITH INVASION INTO THE MUSCULARIS PROPRIA - GREATEST DIMENSION: 4.9 CM - MARGINS FREE OF TUMOR - NEGATIVE FOR LYMPHOVASCULAR INVASION - TWENTY-FOUR LYMPH NODES, NO TUMOR PRESENT (0/24) B. COLON, DISTAL DONUT, EXCISION: - NO TUMOR PRESENT C. COLON, PROXIMAL DONUT, EXCISION: - NO TUMOR PRESENT Signing Pathologist Direct Phone Line: [phone] SYNOPTIC REPORT COLON AND RECTUM: Resection, Including Transanal Disk Excision of Rectal Neoplasms(Colon Res - All Specimens) SPECIMEN Specimen:Sigmoid colon Specimen:Rectum Procedure:Low anterior resection Macroscopic Intactness of Mesorectum:Complete TUMOR Primary Tumor Site:Rectosigmoid Histologic Type:Adenocarcinoma Histologic Grade:Low-grade (well differentiated to moderately differentiated) Tumor Size:Greatest dimension (cm): 4.9 cm Additional Dimension (cm):3 cm Additional Dimension (cm):1.8 cm Tumor Deposits:Not identified Site(s) of Direct Extent of Tumor:None identified Microscopic Tumor Extension:Tumor invades muscularis propria Macroscopic Tumor Perforation:Not Identified Lymph-Vascular Invasion:Not identified Intratumoral Lymphocytic Response (tumor-infiltrating lymphocytes):Mild to moderate (0-2 per high-power X400 field) Peritumor Lymphocytic Response (Crohn-like response): Marked Perineural Invasion:Not identified Type of Polyp in Which Invasive Carcinoma Arose:Tubular adenoma MARGINS Uninvolved Margins:All margins uninvolved by invasive carcinoma Distance of Invasive Carcinoma from Closest Margin:Specify ( cm): 3 cm Specify Margin:Circumferential (Radial) or Mesenteric Margins:For Resection Specimens Only Proximal Margin: Proximal Margin:Uninvolved by invasive carcinoma Distance of Tumor from Margin:Specify (cm): 15 cm Distal Margin: Distal Margin:Uninvolved by invasive carcinoma Distance of Tumor from Margin (required only for rectal tumors):Specify (cm): 3.3 cm Circumferential (Radial) Margin:Uninvolved by invasive carcinoma Distance of Tumor from Margin (required only for rectal tumors): Specify (cm): 3 cm Mesenteric Margin:Uninvolved by invasive carcinoma Distance of Tumor from Margin:Specify (cm): 8 cm LYMPH NODES Regional Lymph Nodes: Number of Lymph Nodes Examined:Specify number: 24 Number of Lymph Nodes Involved:Specify number: 0 STAGE (pTNM, AJCC 7th ed.) Primary Tumor (pT):pT2: Tumor invades muscularis propria Regional Lymph Nodes (pN):pN0: No regional lymph node metastasis CPT Code(s) 11675 14449 [id number] x 3 CLINICAL HISTORY Rectal cancer GROSS DESCRIPTION Part A: Received fresh for intraoperative consultation labeled "large intestine, colon-sigmoid" with the description of "sigmoid and rectum show and tell" consists of a 20 x 8 cm colon with an attached 24 x 14 x 8 cm mesenteric fat. The serosa is cordoba-pink and smooth without any masses or lesions. The colon is opened up to reveal a 4.9 x 3 cm, irregular, lobulated, pink-red mass. It is raised 0.6 cm ab ove the mucosal surface. It is 3.3 cm from the distal margin, 15 cm from the proximal margin and 8 cm from the mesenteric margin. The mass occupies approximately 60% of the circumference. Sectioning thr ough the mass reveals that it is 1.8 cm thick and appears invade into the muscularis. The mass is 3 cm from the radial margin. The remainder of the colon is cordoba pink, with normal like folds. The fat is serially sectioned to reveal multiple lymph nodes ranging from 0.2 to 1 cm in greatest dimension. Ink code [place]: Mesenteric margin Black: Radial margin [employer] sections are submitted. Section code: A1: distal margin; A2: proximal margin; A3: mesenteric margin; A4: section of tumor with deepest invasion; A5: tumor to normal appearing mucosa; A6: radial margin closest to mass; A7: section of tumor with deepest invasion; A8: enrollment eligibility representative section of tumor; A9 - A10: contiguous full-thickness section with deepest invasion; A11: tumor to normal appearing mucosa towards distal margin; A12: tumor to normal appearing mucosa towards proximal margin; A13 - A14: normal appearing colon; A15-A20: five candidate lymph nodes in each cassette. Part B: Received in formalin labeled "other" with the description of "distal donut" consists of a 3 x 2 x 0.7 cm segment of bowel. There are no masses or lesions identified. The mucosal surface appears to be hemorrhagic and cordoba-pink. The specimen is submitted in its entirety into cassette B1. Part C: Received in formalin labeled "other" with the description of "proximal donut" consists of a 1.5 x 1 x 0.8 cm portion of bowel. The mucosal surface and serosa surface are codroba-pink. ew INTRAOPERATIVE CONSULTATION INTRAOPERATIVE CONSULTATION DIAGNOSIS, SIGMOID AND RECTUM, RESECTION: - TUMOR GROSSLY IDENTIFIED - 3.3 CM FROM THE DISTAL MARGIN - VERBALLY REPORTED BY DR. PEOPLES AT 7:18 P.M. MICROSCOPIC DESCRIPTION Performed. SPECIAL STUDIES The following special studies were performed on this case and the interpretation is incorporated in the diagnostic report above: IHC testing for all four MMR proteins was performed on selected block A9 with appropriate controls. RESULTS MLH1: Intact nuclear expression MSH2: Intact nuclear expression MSH6: Intact nuclear expression PMS2: Intact nuclear expression IHC Interpretation No loss of nuclear expression of MMR proteins: low probability of microsatellite instability-high (MSI-H)# #There are exceptions to the above IHC interpretations. These results should not be considered in isolation, and clinical correlation with genetic counseling is recommended to assess the need for germline testing. The immunohistochemistry test was developed and its performance characteristics determined by [facility], Pathology Laboratory. It has not been cleared or approved by the [place]. Food and Drug Administration. The FDA has determined that such clearance or approval is not necessary. The test is used for clinical purposes. It should not be regarded as investigational or for research. This laboratory is certified under the Clinical Laboratory Improvement Amendments of 1988 (CLIA-88) as qualified to perform high complexity clinical laboratory testing. Specimen Performing Laboratory Tissue - Large Intestine, Colon - Sigmoid; [facility] Tissue - Other [address] [place] [id number] ANATOMIC PATHOLOGY SCANNED - SCAN (01/02/2017 4:03 PM)after 06/06/2016
--- OUTSIDE RECORDS SUMMARY | 2017-06-07 11:43 | XMS REPORT ---
:1960 Author Organization [facility] Address [address] [place], [place] [address] [place] [address] Care Team Providers Name Role Phone CLEMENTE YEPEZ Unavailable Unavailable KANNAN SMITH Unavailable Unavailable Problems This patient has no known problems. Allergies, Adverse Reactions, Alerts This patient has no known allergies or adverse reactions. Medications This patient has no known medications. Results Test Description Test Time Test Comments Text Results Atomic Results Result Comments POCT-GLUCOSE METER 2017-03-14 20:56:00 Test Item Value Reference Range Comments POC-GLUCOSE METER (BEAKER) (test 123 mg/dL 70-110 TESTED AT [address] rqjx=7569) [place] [id number] POCT-GLUCOSE [id number] 17:15:00 Test Item Value Reference Range Comments POC-GLUCOSE METER (BEAKER) 252 mg/dL 70-110 TESTED AT [address] (test rcbn=5490) [place] [id number] POCT-GLUCOSE [id number] 16:27:00 Test Item Value Reference Range Comments POC-GLUCOSE METER (BEAKER) 319 mg/dL 70-110 TESTED AT [address] (test kqxn=8500) [place] [id number] CBC W/PLT COUNT & AUTO [id number] 15:10:00 Test Item Value Reference Range Comments WHITE BLOOD CELL COUNT (BEAKER) (test rwrk=596) 8.3 K/ L 3.5-10.5 RED BLOOD CELL COUNT (BEAKER) (test zavw=949) 3.50 M/ L 4.63-6.08 HEMOGLOBIN (BEAKER) (test cifv=033) 9.1 GM/DL 13.7-17.5 HEMATOCRIT (BEAKER) (test jutk=820) 30.8 % 40.1-51.0 MEAN CORPUSCULAR VOLUME (BEAKER) (test ibgj=414) 88.0 fL 79.0-92.2 MEAN CORPUSCULAR HEMOGLOBIN (BEAKER) (test 26.0 pg 25.7-32.2 hnpw=604) MEAN CORPUSCULAR HEMOGLOBIN CONC (BEAKER) (test 29.5 GM/DL 32.3-36.5 fwxh=301) RED CELL DISTRIBUTION WIDTH (BEAKER) (test 16.1 % 11.6-14.4 juwh=048) PLATELET COUNT (BEAKER) (test tyib=456) 571 K/CU MM 150-450 MEAN PLATELET VOLUME (BEAKER) (test dicl=932) 9.3 fL 9.4-12.4 NUCLEATED RED BLOOD CELLS (BEAKER) (test 0 /100 WBC 0-0 blxs=722) NEUTROPHILS RELATIVE PERCENT (BEAKER) (test 79 % eque=796) LYMPHOCYTES RELATIVE PERCENT (BEAKER) (test 10 % ldny=810) MONOCYTES RELATIVE PERCENT (BEAKER) (test 9 % ttvq=640) EOSINOPHILS RELATIVE PERCENT (BEAKER) (test 1 % rexc=221) BASOPHILS RELATIVE PERCENT (BEAKER) (test 1 % yjls=811) NEUTROPHILS ABSOLUTE COUNT (BEAKER) (test 6.58 K/ L 1.78-5.38 gnyt=417) LYMPHOCYTES ABSOLUTE COUNT (BEAKER) (test 0.82 K/ L 1.32-3.57 bzcw=976) MONOCYTES ABSOLUTE COUNT (BEAKER) (test 0.74 K/ L 0.30-0.82 uybt=569) EOSINOPHILS ABSOLUTE COUNT (BEAKER) (test 0.09 K/ L 0.04-0.54 mepw=580) BASOPHILS ABSOLUTE COUNT (BEAKER) (test 0.04 K/ L 0.01-0.08 qlio=327) IMMATURE GRANULOCYTES-RELATIVE PERCENT (BEAKER) 1 % 0-1 (test nypl=0514) [id number] 15:00:00 Test Item Value Reference Range Comments PHOSPHORUS (BEAKER) (test gmtd=441) 3.2 mg/dL 2.3-4.7 [id number] 15:00:00 Test Item Value Reference Range Comments MAGNESIUM (BEAKER) (test lwej=310) 1.5 mg/dL 1.6-2.6 BASIC METABOLIC [id number] 15:00:00 Test Item Value Reference Range Comments SODIUM (BEAKER) (test 133 meq/L 136-145 djii=197) POTASSIUM (BEAKER) (test 4.7 meq/L 3.5-5.1 edqv=362) CHLORIDE (BEAKER) (test 97 meq/L 98-107 aoih=574) CO2 (BEAKER) (test 26 meq/L 22-29 kare=803) BLOOD UREA NITROGEN 12 mg/dL 7-21 (BEAKER) (test ekdi=358) CREATININE (BEAKER) (test 0.68 mg/dL 0.57-1.25 isnw=241) GLUCOSE RANDOM (BEAKER) 305 mg/dL 70-105 (test ivox=944) CALCIUM (BEAKER) (test 8.9 mg/dL 8.4-10.2 houz=807) EGFR (BEAKER) (test 120 mL/min/1.73 sq m ESTIMATED GFR IS NOT zusr=7150) ACCURATE CREATININE CLEARANCE IN PREDICTING GLOMERULAR FILTRATION RATE. ESTIMATED GFR IS NOT APPLICABLE FOR DIALYSIS PATIENTS. CALCIUM, [id number] 14:49:00 Test Item Value Reference Range Comments CALCIUM IONIZED (BEAKER) (test viqi=983) 1.00 mmol/L 1.12-1.27 PH, BLOOD (BEAKER) (test sqkh=8224) 7.47 POCT-GLUCOSE [id number] 13:28:00 Test Item Value Reference Range Comments POC-GLUCOSE METER (BEAKER) 294 mg/dL 70-110 TESTED AT [facility] [address] [facility] (test lmiw=8188) [facility] [address] FL, ESOPH, SWALLOW FUNCTION, WITH CINE OR [id number] 11:29:00Reason for exam:->dysphagiaFINAL REPORT Modified barium swallow Reason for study: [...] sinuses. Impression Normal swallow. Please refer to reportfrom speech pathology for further information and recommendations. Two lateral spot and cine fluoroscopic images of the neck were obtained. Fluoroscopy time-2.2 minutes. Signed: Parker Berry MDReport Verified Date/Time: 03/14/2017 11:29:44 Reading Location: [facility] C013X Ortho Consult Reading Room OCCULT BLOOD, [id number] 09:21:00 Test Item Value Reference Range Comments FECAL OCCULT BLOOD (BEAKER) (test rjgz=189) Negative Negative POCT-GLUCOSE [id number] 04:44:00 Test Item Value Reference Range Comments POC-GLUCOSE METER (BEAKER) 157 mg/dL 70-110 TESTED AT [address] (test dhnb=9789) [facility] [address] POCT-GLUCOSE [id number] 23:28:00 Test Item Value Reference Range Comments POC-GLUCOSE METER (BEAKER) 132 mg/dL 70-110 TESTED AT [address] (test xwzn=3640) [facility] [address] POCT-GLUCOSE [id number] 16:20:00 Test Item Value Reference Range Comments POC-GLUCOSE METER (BEAKER) 223 mg/dL 70-110 TESTED AT [address] (test gbzx=4187) [facility] [address] POCT-GLUCOSE [id number] 13:13:00 Test Item Value Reference Range Comments POC-GLUCOSE METER (BEAKER) 196 mg/dL 70-110 TESTED AT [address] (test cnty=1695) [facility] [address] POCT-GLUCOSE [id number] 10:08:00 Test Item Value Reference Range Comments POC-GLUCOSE METER (BEAKER) 195 mg/dL 70-110 TESTED AT [address] (test hlbn=4687) [facility] [address] CALCIUM, [id number] 08:11:00 Test Item Value Reference Range Comments CALCIUM IONIZED (BEAKER) (test vnbk=601) 0.91 mmol/L 1.12-1.27 PH, BLOOD (BEAKER) (test qecw=2537) 7.48 [id number] 05:53:00 Test Item Value Reference Range Comments PHOSPHORUS (BEAKER) (test epap=546) 2.9 mg/dL 2.3-4.7 [id number] 05:53:00 Test Item Value Reference Range Comments MAGNESIUM (BEAKER) (test krto=719) 1.4 mg/dL 1.6-2.6 BASIC METABOLIC [id number] 05:53:00 Test Item Value Reference Range Comments SODIUM (BEAKER) (test 133 meq/L 136-145 uhun=075) POTASSIUM (BEAKER) (test 4.5 meq/L 3.5-5.1 cyqk=033) CHLORIDE (BEAKER) (test 99 meq/L 98-107 hoov=945) CO2 (BEAKER) (test 26 meq/L 22-29 vabw=518) BLOOD UREA NITROGEN 12 mg/dL 7-21 (BEAKER) (test pnbm=140) CREATININE (BEAKER) (test 0.56 mg/dL 0.57-1.25 ocog=739) GLUCOSE RANDOM (BEAKER) 142 mg/dL 70-105 (test dwqs=533) CALCIUM (BEAKER) (test 8.4 mg/dL 8.4-10.2 olpj=846) EGFR (BEAKER) (test 150 mL/min/1.73 sq m ESTIMATED GFR IS NOT hvhf=6900) ACCURATE CREATININE CLEARANCE IN PREDICTING GLOMERULAR FILTRATION RATE. ESTIMATED GFR IS NOT APPLICABLE FOR DIALYSIS PATIENTS. POCT-GLUCOSE [id number] 05:34:00 Test Item Value Reference Range Comments POC-GLUCOSE METER (BEAKER) 142 mg/dL 70-110 TESTED AT [facility] [address] [facility] (test eyqd=5818) [facility] [address] CBC W/PLT COUNT & AUTO [id number] 05:26:00 Test Item Value Reference Range Comments WHITE BLOOD CELL COUNT (BEAKER) (test srbi=455) 7.7 K/ L 3.5-10.5 RED BLOOD CELL COUNT (BEAKER) (test tnww=554) 3.27 M/ L 4.63-6.08 HEMOGLOBIN (BEAKER) (test uhns=763) 8.7 GM/DL 13.7-17.5 HEMATOCRIT (BEAKER) (test zdgs=903) 28.6 % 40.1-51.0 MEAN CORPUSCULAR VOLUME (BEAKER) (test iftl=855) 87.5 fL 79.0-92.2 MEAN CORPUSCULAR HEMOGLOBIN (BEAKER) (test 26.6 pg 25.7-32.2 qdtl=112) MEAN CORPUSCULAR HEMOGLOBIN CONC (BEAKER) (test 30.4 GM/DL 32.3-36.5 nxmm=147) RED CELL DISTRIBUTION WIDTH (BEAKER) (test 15.9 % 11.6-14.4 mulc=250) PLATELET COUNT (BEAKER) (test yaxu=072) 478 K/CU MM 150-450 MEAN PLATELET VOLUME (BEAKER) (test xcco=283) 9.2 fL 9.4-12.4 NUCLEATED RED BLOOD CELLS (BEAKER) (test 0 /100 WBC 0-0 zvtl=639) NEUTROPHILS RELATIVE PERCENT (BEAKER) (test 72 % lfox=692) LYMPHOCYTES RELATIVE PERCENT (BEAKER) (test 12 % khgx=274) MONOCYTES RELATIVE PERCENT (BEAKER) (test 10 % ylfc=070) EOSINOPHILS RELATIVE PERCENT (BEAKER) (test 4 % gnxa=542) BASOPHILS RELATIVE PERCENT (BEAKER) (test 1 % bxpa=842) NEUTROPHILS ABSOLUTE COUNT (BEAKER) (test 5.56 K/ L 1.78-5.38 pine=613) LYMPHOCYTES ABSOLUTE COUNT (BEAKER) (test 0.91 K/ L 1.32-3.57 ruwf=154) MONOCYTES ABSOLUTE COUNT (BEAKER) (test 0.80 K/ L 0.30-0.82 wctd=593) EOSINOPHILS ABSOLUTE COUNT (BEAKER) (test 0.31 K/ L 0.04-0.54 rbiw=148) BASOPHILS ABSOLUTE COUNT (BEAKER) (test 0.05 K/ L 0.01-0.08 ytxo=934) IMMATURE GRANULOCYTES-RELATIVE PERCENT (BEAKER) 1 % 0-1 (test wngb=1671) POCT-GLUCOSE [id number] 23:09:00 Test Item Value Reference Range Comments POC-GLUCOSE METER (BEAKER) 183 mg/dL 70-110 TESTED AT [address] (test kiql=1644) [facility] [address] POCT-GLUCOSE [id number] 22:58:00 Test Item Value Reference Range Comments POC-GLUCOSE METER (BEAKER) 188 mg/dL 70-110 TESTED AT [address] (test hpfe=3381) [facility] [address] POCT-GLUCOSE [id number] 16:04:00 Test Item Value Reference Range Comments POC-GLUCOSE METER (BEAKER) 183 mg/dL 70-110 TESTED AT [facility] [address] [facility] (test bjca=5716) [facility] [address] AFB CULTURE + [id number] 12:29:00 Test Item Value Reference Range Comments CULTURE (BEAKER) (test No acid-fast bacilli isolated gxmt=3487) in 42 days AFB SMEAR (BEAKER) (test No acid fast bacilli seen opwg=528) POCT-GLUCOSE [id number] 09:56:00 Test Item Value Reference Range Comments POC-GLUCOSE METER (BEAKER) 178 mg/dL 70-110 TESTED AT [facility] [address] [facility] (test jmvl=5586) [facility] [address] [id number] 07:53:00 Test Item Value Reference Range Comments PHOSPHORUS (BEAKER) (test eamy=010) 2.5 mg/dL 2.3-4.7 [id number] 07:53:00 Test Item Value Reference Range Comments MAGNESIUM (BEAKER) (test eviq=986) 1.6 mg/dL 1.6-2.6 BASIC METABOLIC [id number] 07:53:00 Test Item Value Reference Range Comments SODIUM (BEAKER) (test 134 meq/L 136-145 bdeu=636) POTASSIUM (BEAKER) (test 4.4 meq/L 3.5-5.1 oekm=330) CHLORIDE (BEAKER) (test 100 meq/L 98-107 itia=274) CO2 (BEAKER) (test 25 meq/L 22-29 nkel=374) BLOOD UREA NITROGEN 12 mg/dL 7-21 (BEAKER) (test xmhr=512) CREATININE (BEAKER) (test 0.62 mg/dL 0.57-1.25 senz=759) GLUCOSE RANDOM (BEAKER) 201 mg/dL 70-105 (test wrhk=039) CALCIUM (BEAKER) (test 8.6 mg/dL 8.4-10.2 sylt=636) EGFR (BEAKER) (test 133 mL/min/1.73 sq m ESTIMATED GFR IS NOT oyjq=7309) ACCURATE CREATININE CLEARANCE IN PREDICTING GLOMERULAR FILTRATION RATE. ESTIMATED GFR IS NOT APPLICABLE FOR DIALYSIS PATIENTS. CALCIUM, [id number] 07:53:00 Test Item Value Reference Range Comments CALCIUM IONIZED (BEAKER) (test drzd=631) 0.94 mmol/L 1.12-1.27 PH, BLOOD (BEAKER) (test tznc=9310) 7.44 CBC W/PLT COUNT & AUTO [id number] 06:43:00 Test Item Value Reference Range Comments WHITE BLOOD CELL COUNT (BEAKER) (test mkok=184) 6.6 K/ L 3.5-10.5 RED BLOOD CELL COUNT (BEAKER) (test zxbg=842) 3.61 M/ L 4.63-6.08 HEMOGLOBIN (BEAKER) (test hpyj=340) 9.5 GM/DL 13.7-17.5 HEMATOCRIT (BEAKER) (test cnys=349) 32.0 % 40.1-51.0 MEAN CORPUSCULAR VOLUME (BEAKER) (test gcwc=860) 88.6 fL 79.0-92.2 MEAN CORPUSCULAR HEMOGLOBIN (BEAKER) (test 26.3 pg 25.7-32.2 vqxh=096) MEAN CORPUSCULAR HEMOGLOBIN CONC (BEAKER) (test 29.7 GM/DL 32.3-36.5 zpot=265) RED CELL DISTRIBUTION WIDTH (BEAKER) (test 16.1 % 11.6-14.4 mtlj=279) PLATELET COUNT (BEAKER) (test snzz=768) 467 K/CU MM 150-450 MEAN PLATELET VOLUME (BEAKER) (test gkgh=358) 9.3 fL 9.4-12.4 NUCLEATED RED BLOOD CELLS (BEAKER) (test 0 /100 WBC 0-0 vkjb=890) NEUTROPHILS RELATIVE PERCENT (BEAKER) (test 75 % swpb=636) LYMPHOCYTES RELATIVE PERCENT (BEAKER) (test 11 % uaoi=815) MONOCYTES RELATIVE PERCENT (BEAKER) (test 9 % fckz=430) EOSINOPHILS RELATIVE PERCENT (BEAKER) (test 3 % kpss=333) BASOPHILS RELATIVE PERCENT (BEAKER) (test 1 % usal=188) NEUTROPHILS ABSOLUTE COUNT (BEAKER) (test 4.97 K/ L 1.78-5.38 wzxt=025) LYMPHOCYTES ABSOLUTE COUNT (BEAKER) (test 0.70 K/ L 1.32-3.57 hcrc=787) MONOCYTES ABSOLUTE COUNT (BEAKER) (test 0.62 K/ L 0.30-0.82 zzhj=000) EOSINOPHILS ABSOLUTE COUNT (BEAKER) (test 0.22 K/ L 0.04-0.54 hhoe=952) BASOPHILS ABSOLUTE COUNT (BEAKER) (test 0.03 K/ L 0.01-0.08 gjzf=228) IMMATURE GRANULOCYTES-RELATIVE PERCENT (BEAKER) 1 % 0-1 (test thzx=7117) POCT-GLUCOSE [id number] 03:44:00 Test Item Value Reference Range Comments POC-GLUCOSE METER (BEAKER) 260 mg/dL 70-110 TESTED AT [address] (test ybjw=2693) [facility] [address] POCT-GLUCOSE [id number] 23:14:00 Test Item Value Reference Range Comments POC-GLUCOSE METER (BEAKER) 174 mg/dL 70-110 TESTED AT [address] (test xmid=6209) [facility] [address] POCT-GLUCOSE [id number] 16:57:00 Test Item Value Reference Range Comments POC-GLUCOSE METER (BEAKER) 221 mg/dL 70-110 TESTED AT [address] (test bvka=6942) [facility] [address] POCT-GLUCOSE [id number] 09:47:00 Test Item Value Reference Range Comments POC-GLUCOSE METER (BEAKER) 210 mg/dL 70-110 TESTED AT [address] (test jdsy=4616) [facility] [address] [id number] 05:38:00 Test Item Value Reference Range Comments PHOSPHORUS (BEAKER) (test wdff=462) 2.4 mg/dL 2.3-4.7 [id number] 05:38:00 Test Item Value Reference Range Comments MAGNESIUM (BEAKER) (test miph=611) 1.6 mg/dL 1.6-2.6 BASIC METABOLIC [id number] 05:38:00 Test Item Value Reference Range Comments SODIUM (BEAKER) (test 135 meq/L 136-145 qctk=446) POTASSIUM (BEAKER) (test 4.5 meq/L 3.5-5.1 jmgs=243) CHLORIDE (BEAKER) (test 100 meq/L 98-107 jefl=049) CO2 (BEAKER) (test 25 meq/L 22-29 apba=475) BLOOD UREA NITROGEN 12 mg/dL 7-21 (BEAKER) (test bukm=737) CREATININE (BEAKER) (test 0.61 mg/dL 0.57-1.25 cidi=469) GLUCOSE RANDOM (BEAKER) 208 mg/dL 70-105 (test xwqp=199) CALCIUM (BEAKER) (test 8.5 mg/dL 8.4-10.2 qpvr=669) EGFR (BEAKER) (test 136 mL/min/1.73 sq m ESTIMATED GFR IS NOT cidc=7367) ACCURATE CREATININE CLEARANCE IN PREDICTING GLOMERULAR FILTRATION RATE. ESTIMATED GFR IS NOT APPLICABLE FOR DIALYSIS PATIENTS. CALCIUM, [id number] 05:30:00 Test Item Value Reference Range Comments CALCIUM IONIZED (BEAKER) (test yyyg=604) 0.99 mmol/L 1.12-1.27 PH, BLOOD (BEAKER) (test jxqq=7284) 7.46 CBC W/PLT COUNT & AUTO [id number] 05:08:00 Test Item Value Reference Range Comments WHITE BLOOD CELL COUNT (BEAKER) (test zrji=955) 6.8 K/ L 3.5-10.5 RED BLOOD CELL COUNT (BEAKER) (test hvyi=961) 3.62 M/ L 4.63-6.08 HEMOGLOBIN (BEAKER) (test wypy=388) 9.3 GM/DL 13.7-17.5 HEMATOCRIT (BEAKER) (test fxiu=488) 31.9 % 40.1-51.0 MEAN CORPUSCULAR VOLUME (BEAKER) (test xgut=061) 88.1 fL 79.0-92.2 MEAN CORPUSCULAR HEMOGLOBIN (BEAKER) (test 25.7 pg 25.7-32.2 tytt=115) MEAN CORPUSCULAR HEMOGLOBIN CONC (BEAKER) (test 29.2 GM/DL 32.3-36.5 jmyz=075) RED CELL DISTRIBUTION WIDTH (BEAKER) (test 16.0 % 11.6-14.4 tamh=511) PLATELET COUNT (BEAKER) (test meby=896) 487 K/CU MM 150-450 MEAN PLATELET VOLUME (BEAKER) (test cnch=390) 9.6 fL 9.4-12.4 NUCLEATED RED BLOOD CELLS (BEAKER) (test 0 /100 WBC 0-0 ktzq=165) NEUTROPHILS RELATIVE PERCENT (BEAKER) (test 72 % ihom=235) LYMPHOCYTES RELATIVE PERCENT (BEAKER) (test 13 % xyzt=213) MONOCYTES RELATIVE PERCENT (BEAKER) (test 11 % rdfe=785) EOSINOPHILS RELATIVE PERCENT (BEAKER) (test 3 % bvce=584) BASOPHILS RELATIVE PERCENT (BEAKER) (test 1 % hwhe=087) NEUTROPHILS ABSOLUTE COUNT (BEAKER) (test 4.91 K/ L 1.78-5.38 uuno=382) LYMPHOCYTES ABSOLUTE COUNT (BEAKER) (test 0.90 K/ L 1.32-3.57 cqxy=219) MONOCYTES ABSOLUTE COUNT (BEAKER) (test 0.75 K/ L 0.30-0.82 vaep=812) EOSINOPHILS ABSOLUTE COUNT (BEAKER) (test 0.18 K/ L 0.04-0.54 clgh=827) BASOPHILS ABSOLUTE COUNT (BEAKER) (test 0.05 K/ L 0.01-0.08 wtpp=186) IMMATURE GRANULOCYTES-RELATIVE PERCENT (BEAKER) 1 % 0-1 (test wjpx=6659) POCT-GLUCOSE [id number] 04:15:00 Test Item Value Reference Range Comments POC-GLUCOSE METER (BEAKER) 231 mg/dL 70-110 TESTED AT [address] (test hhzc=9504) [place] [address] OCCULT BLOOD, [id number] 00:24:00 Test Item Value Reference Range Comments FECAL OCCULT BLOOD (BEAKER) (test juqo=766) Negative Negative POCT-GLUCOSE [id number] 22:51:00 Test Item Value Reference Range Comments POC-GLUCOSE METER (BEAKER) 225 mg/dL 70-110 TESTED AT [address] (test nbjn=4220) [place] [id number] POCT-GLUCOSE [id number] 16:35:00 Test Item Value Reference Range Comments POC-GLUCOSE METER (BEAKER) 226 mg/dL 70-110 TESTED AT [address] (test hpbo=0727) [place] [id number] POCT-GLUCOSE [id number] 10:08:00 Test Item Value Reference Range Comments POC-GLUCOSE METER (BEAKER) 200 mg/dL 70-110 TESTED AT [address] (test pobt=1686) [place] [id number] CBC W/PLT COUNT & AUTO [id number] 06:49:00 Test Item Value Reference Range Comments WHITE BLOOD CELL COUNT (BEAKER) (test flks=354) 6.4 K/ L 3.5-10.5 RED BLOOD CELL COUNT (BEAKER) (test slac=364) 4.12 M/ L 4.63-6.08 HEMOGLOBIN (BEAKER) (test nndc=344) 10.9 GM/DL 13.7-17.5 HEMATOCRIT (BEAKER) (test arvl=935) 36.9 % 40.1-51.0 MEAN CORPUSCULAR VOLUME (BEAKER) (test acag=255) 89.6 fL 79.0-92.2 MEAN CORPUSCULAR HEMOGLOBIN (BEAKER) (test 26.5 pg 25.7-32.2 ggex=694) MEAN CORPUSCULAR HEMOGLOBIN CONC (BEAKER) (test 29.5 GM/DL 32.3-36.5 gcce=091) RED CELL DISTRIBUTION WIDTH (BEAKER) (test 16.0 % 11.6-14.4 oiub=671) PLATELET COUNT (BEAKER) (test tvni=645) 512 K/CU MM 150-450 MEAN PLATELET VOLUME (BEAKER) (test whpn=588) 9.7 fL 9.4-12.4 NUCLEATED RED BLOOD CELLS (BEAKER) (test 0 /100 WBC 0-0 tybn=913) NEUTROPHILS RELATIVE PERCENT (BEAKER) (test 70 % hxyo=063) LYMPHOCYTES RELATIVE PERCENT (BEAKER) (test 16 % ugtn=926) MONOCYTES RELATIVE PERCENT (BEAKER) (test 10 % egfe=257) EOSINOPHILS RELATIVE PERCENT (BEAKER) (test 3 % krfv=338) BASOPHILS RELATIVE PERCENT (BEAKER) (test 1 % kibo=565) NEUTROPHILS ABSOLUTE COUNT (BEAKER) (test 4.47 K/ L 1.78-5.38 pqic=243) LYMPHOCYTES ABSOLUTE COUNT (BEAKER) (test 1.01 K/ L 1.32-3.57 apkg=187) MONOCYTES ABSOLUTE COUNT (BEAKER) (test 0.62 K/ L 0.30-0.82 qifp=253) EOSINOPHILS ABSOLUTE COUNT (BEAKER) (test 0.17 K/ L 0.04-0.54 qniw=808) BASOPHILS ABSOLUTE COUNT (BEAKER) (test 0.03 K/ L 0.01-0.08 azws=032) IMMATURE GRANULOCYTES-RELATIVE PERCENT (BEAKER) 1 % 0-1 (test rqjf=6195) CBC (HEMOGRAM ONLY)2017-03-10 06:36:00 Test Item Value Reference Range Comments WHITE BLOOD CELL COUNT (BEAKER) (test mjxz=865) 6.4 K/ L 3.5-10.5 RED BLOOD CELL COUNT (BEAKER) (test tipg=394) 4.12 M/ L 4.63-6.08 HEMOGLOBIN (BEAKER) (test wdhm=346) 10.9 GM/DL 13.7-17.5 HEMATOCRIT (BEAKER) (test ydho=764) 36.9 % 40.1-51.0 MEAN CORPUSCULAR VOLUME (BEAKER) (test ekgk=236) 89.6 fL 79.0-92.2 MEAN CORPUSCULAR HEMOGLOBIN (BEAKER) (test 26.5 pg 25.7-32.2 sfzd=129) MEAN CORPUSCULAR HEMOGLOBIN CONC (BEAKER) (test 29.5 GM/DL 32.3-36.5 pquu=336) RED CELL DISTRIBUTION WIDTH (BEAKER) (test 16.0 % 11.6-14.4 qsup=422) PLATELET COUNT (BEAKER) (test qdib=539) 512 K/CU MM 150-450 MEAN PLATELET VOLUME (BEAKER) (test ugbn=398) 9.7 fL 9.4-12.4 NUCLEATED RED BLOOD CELLS (BEAKER) (test 0 /100 WBC 0-0 scua=352) CALCIUM, [id number] 05:58:00 Test Item Value Reference Range Comments CALCIUM IONIZED (BEAKER) (test slic=905) 1.09 mmol/L 1.12-1.27 PH, BLOOD (BEAKER) (test lgqg=5816) 7.36 [id number] 05:30:00 Test Item Value Reference Range Comments PHOSPHORUS (BEAKER) (test romk=381) 2.2 mg/dL 2.3-4.7 [id number] 05:30:00 Test Item Value Reference Range Comments MAGNESIUM (BEAKER) (test bubw=694) 1.6 mg/dL 1.6-2.6 BASIC METABOLIC [id number] 05:30:00 Test Item Value Reference Range Comments SODIUM (BEAKER) (test 137 meq/L 136-145 tqxc=093) POTASSIUM (BEAKER) (test 4.5 meq/L 3.5-5.1 cpjm=528) CHLORIDE (BEAKER) (test 100 meq/L 98-107 ajun=307) CO2 (BEAKER) (test 27 meq/L 22-29 hfgx=261) BLOOD UREA NITROGEN 11 mg/dL 7-21 (BEAKER) (test jlte=807) CREATININE (BEAKER) (test 0.59 mg/dL 0.57-1.25 dojz=523) GLUCOSE RANDOM (BEAKER) 110 mg/dL 70-105 (test bmpf=940) CALCIUM (BEAKER) (test 9.2 mg/dL 8.4-10.2 sqbf=478) EGFR (BEAKER) (test 141 mL/min/1.73 sq m ESTIMATED GFR IS NOT jazl=0487) ACCURATE CREATININE CLEARANCE IN PREDICTING GLOMERULAR FILTRATION RATE. ESTIMATED GFR IS NOT APPLICABLE FOR DIALYSIS PATIENTS. POCT-GLUCOSE [id number] 03:44:00 Test Item Value Reference Range Comments POC-GLUCOSE METER (BEAKER) 138 mg/dL 70-110 TESTED AT [address] (test yehp=3943) [facility] [address] POCT-GLUCOSE [id number] 22:22:00 Test Item Value Reference Range Comments POC-GLUCOSE METER (BEAKER) 172 mg/dL 70-110 TESTED AT [address] (test mlld=3007) [facility] [address] POCT-GLUCOSE [id number] 16:05:00 Test Item Value Reference Range Comments POC-GLUCOSE METER (BEAKER) 216 mg/dL 70-110 TESTED AT [address] (test zzvx=0737) [facility] [address] POCT-GLUCOSE [id number] 10:00:00 Test Item Value Reference Range Comments POC-GLUCOSE METER (BEAKER) 224 mg/dL 70-110 TESTED AT [address] (test cejz=7181) [facility] [address] POCT-GLUCOSE [id number] 05:16:00 Test Item Value Reference Range Comments POC-GLUCOSE METER (BEAKER) 164 mg/dL 70-110 TESTED AT [address] (test qqcb=6770) [facility] [address] POCT-GLUCOSE [id number] 22:29:00 Test Item Value Reference Range Comments POC-GLUCOSE METER (BEAKER) 165 mg/dL 70-110 TESTED AT [address] (test imuy=4389) [facility] [address] POCT-GLUCOSE [id number] 16:29:00 Test Item Value Reference Range Comments POC-GLUCOSE METER (BEAKER) 219 mg/dL 70-110 TESTED AT [address] (test lpvv=4940) [facility] [address] POCT-GLUCOSE [id number] 10:04:00 Test Item Value Reference Range Comments POC-GLUCOSE METER (BEAKER) 190 mg/dL 70-110 TESTED AT [address] (test pyrm=1603) [facility] [address] ANG, INSERTION G TUBE, W/ [id number] 09:01:00Reason for exam:->for PEG placementFINAL REPORT Fluoroscopic guided gastrostomy tube placement. Modality: Fluoroscopy. Protective Service Specialist: Talat Hare MD. Nuclear Security Officer: None. Sedation: Moderate sedation was administered. 1 [...] 1 cc. Specimen: None. Fluoroscopy Time: 1.4 min.Reference Air Kerma (Ka, r): 52.3 mGy. Technique: Discussion of risks, benefits, and alternatives were made with the patient. The patient expressed understanding and agreed to proceed. After informed consent was obtained, which included the risks of bleeding, infection, injury to adjacent structures/ bowel, adverse medication reaction, the patient's abdomen was prepped and draped in theusual sterile manner. All elements maximal sterile barrier [...] and a 0.035 Amplatz wire was advanced throughthe sheath and curled within the lumen of the stomach. After a small skin incision was made, the soft tissue tract was created with serial dilators. After the tract was dilated, a 14 Georgian catheter was placed into the stomach. The [...] fluoroscopic guided gastrostomy tube placement, with conscious sedation.Signed: Talat Hare MDReport Verified Date/Time: 03/08/2017 09:01:42 Reading Location : [place] [address] Angio Body Reading Room CBC W/PLT COUNT & AUTO [id number] 08:51:00 Test Item Value Reference Range Comments WHITE BLOOD CELL COUNT (BEAKER) (test epqi=439) 6.9 K/ L 3.5-10.5 RED BLOOD CELL COUNT (BEAKER) (test pwqh=315) 3.46 M/ L 4.63-6.08 HEMOGLOBIN (BEAKER) (test iwlh=461) 9.2 GM/DL 13.7-17.5 HEMATOCRIT (BEAKER) (test mdir=908) 30.8 % 40.1-51.0 MEAN CORPUSCULAR VOLUME (BEAKER) (test srqi=426) 89.0 fL 79.0-92.2 MEAN CORPUSCULAR HEMOGLOBIN (BEAKER) (test 26.6 pg 25.7-32.2 quly=075) MEAN CORPUSCULAR HEMOGLOBIN CONC (BEAKER) (test 29.9 GM/DL 32.3-36.5 xgmw=284) RED CELL DISTRIBUTION WIDTH (BEAKER) (test 15.9 % 11.6-14.4 wsvt=713) PLATELET COUNT (BEAKER) (test jkjg=151) 425 K/CU MM 150-450 MEAN PLATELET VOLUME (BEAKER) (test iafd=582) 9.8 fL 9.4-12.4 NUCLEATED RED BLOOD CELLS (BEAKER) (test 0 /100 WBC 0-0 nbbf=250) NEUTROPHILS RELATIVE PERCENT (BEAKER) (test 79 % deis=288) LYMPHOCYTES RELATIVE PERCENT (BEAKER) (test 9 % bmre=416) MONOCYTES RELATIVE PERCENT (BEAKER) (test 10 % vaev=374) EOSINOPHILS RELATIVE PERCENT (BEAKER) (test 2 % hsql=788) BASOPHILS RELATIVE PERCENT (BEAKER) (test 0 % ayub=635) NEUTROPHILS ABSOLUTE COUNT (BEAKER) (test 5.42 K/ L 1.78-5.38 yguf=708) LYMPHOCYTES ABSOLUTE COUNT (BEAKER) (test 0.59 K/ L 1.32-3.57 tgtu=687) MONOCYTES ABSOLUTE COUNT (BEAKER) (test 0.68 K/ L 0.30-0.82 ntrl=918) EOSINOPHILS ABSOLUTE COUNT (BEAKER) (test 0.10 K/ L 0.04-0.54 cozh=586) BASOPHILS ABSOLUTE COUNT (BEAKER) (test 0.02 K/ L 0.01-0.08 kldu=508) IMMATURE GRANULOCYTES-RELATIVE PERCENT (BEAKER) 1 % 0-1 (test ajyt=2760) CALCIUM, [id number] 07:35:00 Test Item Value Reference Range Comments CALCIUM IONIZED (BEAKER) (test cwpf=010) 1.08 mmol/L 1.12-1.27 PH, BLOOD (BEAKER) (test bugf=4816) 7.42 [id number] 07:24:00 Test Item Value Reference Range Comments MAGNESIUM (BEAKER) (test 1.5 mg/dL 1.6-2.6 Specimen slightly hemolyzed nrcr=777) [id number] 07:24:00 Test Item Value Reference Range Comments PHOSPHORUS (BEAKER) (test 2.3 mg/dL 2.3-4.7 Specimen slightly hemolyzed kyfs=595) BASIC METABOLIC [id number] 07:24:00 Test Item Value Reference Range Comments SODIUM (BEAKER) (test 135 meq/L 136-145 sywj=135) POTASSIUM (BEAKER) (test 4.4 meq/L 3.5-5.1 Specimen slightly kjsn=929) hemolyzed CHLORIDE (BEAKER) (test 100 meq/L 98-107 bpoc=054) CO2 (BEAKER) (test 26 meq/L 22-29 vnwa=421) BLOOD UREA NITROGEN 8 mg/dL 7-21 (BEAKER) (test fxre=748) CREATININE (BEAKER) (test 0.58 mg/dL 0.57-1.25 Specimen slightly wias=349) hemolyzed GLUCOSE RANDOM (BEAKER) 169 mg/dL 70-105 (test qnnz=655) CALCIUM (BEAKER) (test 8.7 mg/dL 8.4-10.2 bkqf=483) EGFR (BEAKER) (test 144 mL/min/1.73 sq m ESTIMATED GFR IS NOT ymdr=8201) ACCURATE CREATININE CLEARANCE IN PREDICTING GLOMERULAR FILTRATION RATE. ESTIMATED GFR IS NOT APPLICABLE FOR DIALYSIS PATIENTS. POCT-GLUCOSE [id number] 04:55:00 Test Item Value Reference Range Comments POC-GLUCOSE METER (BEAKER) 136 mg/dL 70-110 TESTED AT [address] (test yqhk=2085) [place] [id number] POCT-GLUCOSE [id number] 22:18:00 Test Item Value Reference Range Comments POC-GLUCOSE METER (BEAKER) 132 mg/dL 70-110 TESTED AT [address] (test amif=4229) [place] [id number] POCT-GLUCOSE [id number] 17:05:00 Test Item Value Reference Range Comments POC-GLUCOSE METER (BEAKER) 175 mg/dL 70-110 TESTED AT [address] (test piyc=9231) [place] [id number] OCCULT BLOOD, [id number] 13:55:00 Test Item Value Reference Range Comments FECAL OCCULT BLOOD (BEAKER) (test part=017) Negative Negative POCT-GLUCOSE [id number] 10:38:00 Test Item Value Reference Range Comments POC-GLUCOSE METER (BEAKER) 202 mg/dL 70-110 TESTED AT [address] (test qfah=2156) [place] [id number] RAD, ABDOMEN/KUB, 1 VIEW [id number] 08:38:00Reason for exam:->NG tube placement verification.Should this be performed at the bedside?->YesFINAL REPORT EXAM: AP abdominal radiograph HISTORY PROVIDED: NG tube placement verification COMPARISON: 03/03/2017 IMPRESSION:The examination is limited secondary to patient's bodyhabitus. The nasogastric tube is faintly seen descending into the abdomen with its tip not well seenbut likely within the expected location of the stomach. The bowel gas pattern is nonspecific. This examination is insensitive for the detection of free air. A pigtail catheter is seen within the central abdomen. There are bibasilar opacities and right greater than left bilateral pleural effusions. Degenerative changes of the spine are present. Signed: Saad Guzmanepfoster Verified Date/Time: 03/07/2017 08:38:07 Reading Location: [facility] Reading Room POCT-GLUCOSE [id number] 05:28:00 Test Item Value Reference Range Comments POC-GLUCOSE METER (BEAKER) 184 mg/dL 70-110 TESTED AT [address] (test dfil=2389) [place] [id number] POCT-GLUCOSE [id number] 22:14:00 Test Item Value Reference Range Comments POC-GLUCOSE METER (BEAKER) 126 mg/dL 70-110 TESTED AT [address] (test aqdp=0975) [place] [id number] POCT-GLUCOSE [id number] 17:23:00 Test Item Value Reference Range Comments POC-GLUCOSE METER (BEAKER) 193 mg/dL 70-110 TESTED AT [address] (test zfkx=2132) [place] [id number] BLOOD [id number] 14:18:00 Test Item Value Reference Range Comments CULTURE (BEAKER) (test jjvs=7146) Penicillin G (test code=3) Clindamycin (test Susceptible 0-2 , code=10) Resistant <0 or >2 Metronidazole (test Susceptible 0-8 , code=56) Resistant <0 or >8 CULTURE (BEAKER) From Anaerobic Bottle Only (test fuqm=8355) Clostridium speciesIdentification and susceptibility performed by:[facility], [address] [place] [address], [place], [place] [address] GRAM STAIN RESULT From anaerobic (BEAKER) (test bottle only: gram mbiw=4632) positive rods Corrected report, original organism and gram stain was from anaerobic bottle only: gram negative rodsNOT DETECTEDPanel is negative for CareDox BCID- detectable organisms. Please refer to traditionalculture and sensitivity results as they become available.Other organisms and resistance markers not contained in this PCR panel cannot be excluded and follow-up of traditional culture results is required. This sample was tested at the [facility] using the [employer] FilmArrayBlood Culture ID Panel. This test is FDA cleared for in vitro diagnostic use and has been verified and approved by the [facility] for clinical use. Reference Range: Not DetectedPOCT-GLUCOSE [id number] 14:02:00 Test Item Value Reference Range Comments POC-GLUCOSE METER (BEAKER) 225 mg/dL 70-110 TESTED AT [address] (test burt=4007) [place] [id number] POCT-GLUCOSE [id number] 10:31:00 Test Item Value Reference Range Comments POC-GLUCOSE METER (BEAKER) 180 mg/dL 70-110 TESTED AT [address] (test yovz=3437) [place] [id number] OCCULT BLOOD, [id number] 09:09:00 Test Item Value Reference Range Comments FECAL OCCULT BLOOD (BEAKER) (test bixm=317) Negative Negative CALCIUM, [id number] 06:21:00 Test Item Value Reference Range Comments CALCIUM IONIZED (BEAKER) (test ylhy=690) 0.94 mmol/L 1.12-1.27 PH, BLOOD (BEAKER) (test cxlr=5263) 7.46 [id number] 05:41:00 Test Item Value Reference Range Comments PHOSPHORUS (BEAKER) (test hbwc=943) 2.2 mg/dL 2.3-4.7 [id number] 05:41:00 Test Item Value Reference Range Comments MAGNESIUM (BEAKER) (test oiqf=258) 1.4 mg/dL 1.6-2.6 BASIC METABOLIC [id number] 05:41:00 Test Item Value Reference Range Comments SODIUM (BEAKER) (test 133 meq/L 136-145 oeoj=493) POTASSIUM (BEAKER) (test 4.0 meq/L 3.5-5.1 nere=311) CHLORIDE (BEAKER) (test 100 meq/L 98-107 dtux=516) CO2 (BEAKER) (test 26 meq/L 22-29 spvn=427) BLOOD UREA NITROGEN 11 mg/dL 7-21 (BEAKER) (test lnxf=581) CREATININE (BEAKER) (test 0.57 mg/dL 0.57-1.25 mncv=852) GLUCOSE RANDOM (BEAKER) 150 mg/dL 70-105 (test qfjw=911) CALCIUM (BEAKER) (test 8.3 mg/dL 8.4-10.2 mbvr=701) EGFR (BEAKER) (test 147 mL/min/1.73 sq m ESTIMATED GFR IS NOT iikp=6053) ACCURATE CREATININE CLEARANCE IN PREDICTING GLOMERULAR FILTRATION RATE. ESTIMATED GFR IS NOT APPLICABLE FOR DIALYSIS PATIENTS. [id number] 05:37:00 Test Item Value Reference Range Comments PARTIAL THROMBOPLASTIN TIME (BEAKER) (test 48.5 seconds 22.5-36.0 mioc=837) PROTHROMBIN [id number] 05:35:00 Test Item Value Reference Range Comments PROTIME (BEAKER) (test rbwg=415) 16.6 seconds 11.7-14.7 INR (BEAKER) (test agiq=379) 1.4 <=5.9 RECOMMENDED COUMADIN/WARFARIN INR THERAPY RANGESSTANDARD DOSE: 2.0 - 3.0 Includes: PROPHYLAXIS forvenous thrombosis, systemic embolization; TREATMENT for venous thrombosis and/or pulmonary embolus.HIGH RISK: Target INR is 2.5-3.5 for patients with mechanical heart valves.CBC W/PLT COUNT & AUTO [id number] 05:23:00 Test Item Value Reference Range Comments WHITE BLOOD CELL COUNT (BEAKER) (test ggod=050) 6.5 K/ L 3.5-10.5 RED BLOOD CELL COUNT (BEAKER) (test pfnl=375) 3.29 M/ L 4.63-6.08 HEMOGLOBIN (BEAKER) (test lyun=602) 8.9 GM/DL 13.7-17.5 HEMATOCRIT (BEAKER) (test rfmp=148) 29.6 % 40.1-51.0 MEAN CORPUSCULAR VOLUME (BEAKER) (test xgfs=230) 90.0 fL 79.0-92.2 MEAN CORPUSCULAR HEMOGLOBIN (BEAKER) (test 27.1 pg 25.7-32.2 jlbw=075) MEAN CORPUSCULAR HEMOGLOBIN CONC (BEAKER) (test 30.1 GM/DL 32.3-36.5 etyc=561) RED CELL DISTRIBUTION WIDTH (BEAKER) (test 16.0 % 11.6-14.4 zypl=218) PLATELET COUNT (BEAKER) (test ovno=359) 435 K/CU MM 150-450 MEAN PLATELET VOLUME (BEAKER) (test tyva=834) 9.1 fL 9.4-12.4 NUCLEATED RED BLOOD CELLS (BEAKER) (test 0 /100 WBC 0-0 jlww=453) NEUTROPHILS RELATIVE PERCENT (BEAKER) (test 79 % jtjc=915) LYMPHOCYTES RELATIVE PERCENT (BEAKER) (test 10 % cfgu=697) MONOCYTES RELATIVE PERCENT (BEAKER) (test 9 % izmi=797) EOSINOPHILS RELATIVE PERCENT (BEAKER) (test 1 % efhq=838) BASOPHILS RELATIVE PERCENT (BEAKER) (test 0 % hgzv=927) NEUTROPHILS ABSOLUTE COUNT (BEAKER) (test 5.16 K/ L 1.78-5.38 kpmm=512) LYMPHOCYTES ABSOLUTE COUNT (BEAKER) (test 0.66 K/ L 1.32-3.57 boiu=761) MONOCYTES ABSOLUTE COUNT (BEAKER) (test 0.59 K/ L 0.30-0.82 ioje=851) EOSINOPHILS ABSOLUTE COUNT (BEAKER) (test 0.06 K/ L 0.04-0.54 whdu=843) BASOPHILS ABSOLUTE COUNT (BEAKER) (test 0.02 K/ L 0.01-0.08 mrik=833) IMMATURE GRANULOCYTES-RELATIVE PERCENT (BEAKER) 1 % 0-1 (test dmot=5575) POCT-GLUCOSE [id number] 04:34:00 Test Item Value Reference Range Comments POC-GLUCOSE METER (BEAKER) 168 mg/dL 70-110 TESTED AT [facility] [address] [facility] (test pzzh=5070) [facility] [address] [id number] 23:24:00 Test Item Value Reference Range Comments PARTIAL THROMBOPLASTIN TIME (BEAKER) (test 50.7 seconds 22.5-36.0 mkvk=130) CBC (HEMOGRAM ONLY)2017-03-05 23:17:00 Test Item Value Reference Range Comments WHITE BLOOD CELL COUNT (BEAKER) (test lrrl=279) 7.1 K/ L 3.5-10.5 RED BLOOD CELL COUNT (BEAKER) (test wpqj=572) 3.42 M/ L 4.63-6.08 HEMOGLOBIN (BEAKER) (test qzpe=779) 9.3 GM/DL 13.7-17.5 HEMATOCRIT (BEAKER) (test xyrz=233) 31.3 % 40.1-51.0 MEAN CORPUSCULAR VOLUME (BEAKER) (test qjit=921) 91.5 fL 79.0-92.2 MEAN CORPUSCULAR HEMOGLOBIN (BEAKER) (test 27.2 pg 25.7-32.2 ibhy=554) MEAN CORPUSCULAR HEMOGLOBIN CONC (BEAKER) (test 29.7 GM/DL 32.3-36.5 bhpy=988) RED CELL DISTRIBUTION WIDTH (BEAKER) (test 16.2 % 11.6-14.4 yggl=024) PLATELET COUNT (BEAKER) (test jjxd=801) 397 K/CU MM 150-450 MEAN PLATELET VOLUME (BEAKER) (test xbfa=377) 9.3 fL 9.4-12.4 NUCLEATED RED BLOOD CELLS (BEAKER) (test 0 /100 WBC 0-0 ccxq=396) OCCULT BLOOD, [id number] 22:48:00 Test Item Value Reference Range Comments FECAL OCCULT BLOOD (BEAKER) (test ijke=500) Negative Negative POCT-GLUCOSE [id number] 22:08:00 Test Item Value Reference Range Comments POC-GLUCOSE METER (BEAKER) 159 mg/dL 70-110 TESTED AT [address] (test qvak=8970) [place] [id number] POCT-GLUCOSE [id number] 19:01:00 Test Item Value Reference Range Comments POC-GLUCOSE METER (BEAKER) 166 mg/dL 70-110 TESTED AT [address] (test wfpx=6135) [facility] [address] [id number] 16:17:00 Test Item Value Reference Range Comments PARTIAL THROMBOPLASTIN TIME (BEAKER) (test 41.2 seconds 22.5-36.0 amqq=178) Prior to initiating heparinCBC (HEMOGRAM ONLY)2017-03-05 15:56:00 Test Item Value Reference Range Comments WHITE BLOOD CELL COUNT (BEAKER) (test ubfr=484) 8.2 K/ L 3.5-10.5 RED BLOOD CELL COUNT (BEAKER) (test vhyb=872) 3.04 M/ L 4.63-6.08 HEMOGLOBIN (BEAKER) (test tzfh=188) 8.3 GM/DL 13.7-17.5 HEMATOCRIT (BEAKER) (test ogof=739) 27.0 % 40.1-51.0 MEAN CORPUSCULAR VOLUME (BEAKER) (test xlkm=687) 88.8 fL 79.0-92.2 MEAN CORPUSCULAR HEMOGLOBIN (BEAKER) (test 27.3 pg 25.7-32.2 istf=269) MEAN CORPUSCULAR HEMOGLOBIN CONC (BEAKER) (test 30.7 GM/DL 32.3-36.5 wxks=500) RED CELL DISTRIBUTION WIDTH (BEAKER) (test 15.9 % 11.6-14.4 sjeo=124) PLATELET COUNT (BEAKER) (test vzze=365) 474 K/CU MM 150-450 MEAN PLATELET VOLUME (BEAKER) (test yzau=847) 9.7 fL 9.4-12.4 NUCLEATED RED BLOOD CELLS (BEAKER) (test 0 /100 WBC 0-0 rphx=464) POCT-GLUCOSE [id number] 12:52:00 Test Item Value Reference Range Comments POC-GLUCOSE METER (BEAKER) 175 mg/dL 70-110 TESTED AT [address] (test bcrd=9691) [facility] [address] POCT-GLUCOSE [id number] 09:36:00 Test Item Value Reference Range Comments POC-GLUCOSE METER (BEAKER) 162 mg/dL 70-110 TESTED AT [address] (test glye=5486) [facility] [address] CALCIUM, [id number] 06:26:00 Test Item Value Reference Range Comments CALCIUM IONIZED (BEAKER) (test inap=710) 0.98 mmol/L 1.12-1.27 PH, BLOOD (BEAKER) (test ufpj=3942) 7.45 [id number] 06:10:00 Test Item Value Reference Range Comments PHOSPHORUS (BEAKER) (test dqan=427) 2.4 mg/dL 2.3-4.7 [id number] 06:10:00 Test Item Value Reference Range Comments MAGNESIUM (BEAKER) (test isvm=875) 1.7 mg/dL 1.6-2.6 BASIC METABOLIC [id number] 06:10:00 Test Item Value Reference Range Comments SODIUM (BEAKER) (test 136 meq/L 136-145 krgk=799) POTASSIUM (BEAKER) (test 4.3 meq/L 3.5-5.1 juzu=766) CHLORIDE (BEAKER) (test 102 meq/L 98-107 jlvi=434) CO2 (BEAKER) (test 26 meq/L 22-29 wqum=621) BLOOD UREA NITROGEN 13 mg/dL 7-21 (BEAKER) (test zxlg=237) CREATININE (BEAKER) (test 0.61 mg/dL 0.57-1.25 ztyk=909) GLUCOSE RANDOM (BEAKER) 128 mg/dL 70-105 (test esvb=441) CALCIUM (BEAKER) (test 8.3 mg/dL 8.4-10.2 honr=454) EGFR (BEAKER) (test 136 mL/min/1.73 sq m ESTIMATED GFR IS NOT gepi=8682) ACCURATE CREATININE CLEARANCE IN PREDICTING GLOMERULAR FILTRATION RATE. ESTIMATED GFR IS NOT APPLICABLE FOR DIALYSIS PATIENTS. CBC W/PLT COUNT & AUTO [id number] 05:40:00 Test Item Value Reference Range Comments WHITE BLOOD CELL COUNT (BEAKER) (test cagv=219) 7.8 K/ L 3.5-10.5 RED BLOOD CELL COUNT (BEAKER) (test byic=122) 3.21 M/ L 4.63-6.08 HEMOGLOBIN (BEAKER) (test fhjg=271) 8.6 GM/DL 13.7-17.5 HEMATOCRIT (BEAKER) (test wpnh=300) 29.3 % 40.1-51.0 MEAN CORPUSCULAR VOLUME (BEAKER) (test gbja=096) 91.3 fL 79.0-92.2 MEAN CORPUSCULAR HEMOGLOBIN (BEAKER) (test 26.8 pg 25.7-32.2 opbb=324) MEAN CORPUSCULAR HEMOGLOBIN CONC (BEAKER) (test 29.4 GM/DL 32.3-36.5 ueet=125) RED CELL DISTRIBUTION WIDTH (BEAKER) (test 16.0 % 11.6-14.4 ntwi=775) PLATELET COUNT (BEAKER) (test hjqu=585) 475 K/CU MM 150-450 MEAN PLATELET VOLUME (BEAKER) (test dcxc=216) 9.5 fL 9.4-12.4 NUCLEATED RED BLOOD CELLS (BEAKER) (test 0 /100 WBC 0-0 wpmi=103) NEUTROPHILS RELATIVE PERCENT (BEAKER) (test 79 % qzau=010) LYMPHOCYTES RELATIVE PERCENT (BEAKER) (test 11 % ehab=039) MONOCYTES RELATIVE PERCENT (BEAKER) (test 9 % luxr=319) EOSINOPHILS RELATIVE PERCENT (BEAKER) (test 1 % wsbu=613) BASOPHILS RELATIVE PERCENT (BEAKER) (test 0 % eanb=298) NEUTROPHILS ABSOLUTE COUNT (BEAKER) (test 6.13 K/ L 1.78-5.38 zpzy=457) LYMPHOCYTES ABSOLUTE COUNT (BEAKER) (test 0.83 K/ L 1.32-3.57 rjwd=486) MONOCYTES ABSOLUTE COUNT (BEAKER) (test 0.68 K/ L 0.30-0.82 efol=378) EOSINOPHILS ABSOLUTE COUNT (BEAKER) (test 0.06 K/ L 0.04-0.54 vdff=893) BASOPHILS ABSOLUTE COUNT (BEAKER) (test 0.02 K/ L 0.01-0.08 sasl=143) IMMATURE GRANULOCYTES-RELATIVE PERCENT (BEAKER) 1 % 0-1 (test sqfj=3646) POCT-GLUCOSE [id number] 03:49:00 Test Item Value Reference Range Comments POC-GLUCOSE METER (BEAKER) 140 mg/dL 70-110 TESTED AT [address] (test zaix=1804) [facility] [address] POCT-GLUCOSE [id number] 00:28:00 Test Item Value Reference Range Comments POC-GLUCOSE METER (BEAKER) 113 mg/dL 70-110 TESTED AT [address] (test xaef=3210) [facility] [address] POCT-GLUCOSE [id number] 21:15:00 Test Item Value Reference Range Comments POC-GLUCOSE METER (BEAKER) 129 mg/dL 70-110 TESTED AT [address] (test ebtt=2293) [place] [id number] POCT-GLUCOSE [id number] 17:56:00 Test Item Value Reference Range Comments POC-GLUCOSE METER (BEAKER) 157 mg/dL 70-110 TESTED AT [address] (test hwam=1449) [facility] [address] POCT-GLUCOSE [id number] 15:19:00 Test Item Value Reference Range Comments POC-GLUCOSE METER (BEAKER) 168 mg/dL 70-110 TESTED AT [address] (test jsyh=2001) [facility] [address] POCT-GLUCOSE [id number] 10:08:00 Test Item Value Reference Range Comments POC-GLUCOSE METER (BEAKER) 192 mg/dL 70-110 TESTED AT [address] (test malx=5312) [facility] [address] POCT-GLUCOSE [id number] 08:28:00 Test Item Value Reference Range Comments POC-GLUCOSE METER (BEAKER) 190 mg/dL 70-110 TESTED AT [address] (test hltg=5221) [facility] [address] CALCIUM, [id number] 07:52:00 Test Item Value Reference Range Comments CALCIUM IONIZED (BEAKER) (test zgzl=743) 0.96 mmol/L 1.12-1.27 PH, BLOOD (BEAKER) (test dfss=2479) 7.48 [id number] 06:20:00 Test Item Value Reference Range Comments PHOSPHORUS (BEAKER) (test ixmm=159) 2.4 mg/dL 2.3-4.7 [id number] 06:20:00 Test Item Value Reference Range Comments MAGNESIUM (BEAKER) (test mgso=124) 1.5 mg/dL 1.6-2.6 BASIC METABOLIC [id number] 06:20:00 Test Item Value Reference Range Comments SODIUM (BEAKER) (test 138 meq/L 136-145 rcsi=231) POTASSIUM (BEAKER) (test 4.2 meq/L 3.5-5.1 hycy=169) CHLORIDE (BEAKER) (test 103 meq/L 98-107 apjd=470) CO2 (BEAKER) (test 28 meq/L 22-29 gduy=283) BLOOD UREA NITROGEN 12 mg/dL 7-21 (BEAKER) (test firw=279) CREATININE (BEAKER) (test 0.60 mg/dL 0.57-1.25 lgqy=524) GLUCOSE RANDOM (BEAKER) 156 mg/dL 70-105 (test rbcx=128) CALCIUM (BEAKER) (test 8.4 mg/dL 8.4-10.2 ogwp=991) EGFR (BEAKER) (test 138 mL/min/1.73 sq m ESTIMATED GFR IS NOT ybsl=9168) ACCURATE CREATININE CLEARANCE IN PREDICTING GLOMERULAR FILTRATION RATE. ESTIMATED GFR IS NOT APPLICABLE FOR DIALYSIS PATIENTS. POCT-GLUCOSE [id number] 05:56:00 Test Item Value Reference Range Comments POC-GLUCOSE METER (BEAKER) 122 mg/dL 70-110 TESTED AT [facility] [address] [facility] (test jxyl=0416) [facility] [address] CBC W/PLT COUNT & AUTO [id number] 05:48:00 Test Item Value Reference Range Comments WHITE BLOOD CELL COUNT (BEAKER) (test wupt=827) 8.6 K/ L 3.5-10.5 RED BLOOD CELL COUNT (BEAKER) (test nkkm=359) 3.24 M/ L 4.63-6.08 HEMOGLOBIN (BEAKER) (test elfa=111) 8.8 GM/DL 13.7-17.5 HEMATOCRIT (BEAKER) (test ztxg=928) 29.6 % 40.1-51.0 MEAN CORPUSCULAR VOLUME (BEAKER) (test qjgd=813) 91.4 fL 79.0-92.2 MEAN CORPUSCULAR HEMOGLOBIN (BEAKER) (test 27.2 pg 25.7-32.2 uvnp=937) MEAN CORPUSCULAR HEMOGLOBIN CONC (BEAKER) (test 29.7 GM/DL 32.3-36.5 qmdc=457) RED CELL DISTRIBUTION WIDTH (BEAKER) (test 15.9 % 11.6-14.4 dikw=935) PLATELET COUNT (BEAKER) (test copd=439) 475 K/CU MM 150-450 MEAN PLATELET VOLUME (BEAKER) (test kydg=516) 9.4 fL 9.4-12.4 NUCLEATED RED BLOOD CELLS (BEAKER) (test 0 /100 WBC 0-0 smon=386) NEUTROPHILS RELATIVE PERCENT (BEAKER) (test 83 % iakg=707) LYMPHOCYTES RELATIVE PERCENT (BEAKER) (test 8 % vlzr=408) MONOCYTES RELATIVE PERCENT (BEAKER) (test 7 % qnyy=084) EOSINOPHILS RELATIVE PERCENT (BEAKER) (test 1 % alip=950) BASOPHILS RELATIVE PERCENT (BEAKER) (test 0 % chbr=726) NEUTROPHILS ABSOLUTE COUNT (BEAKER) (test 7.20 K/ L 1.78-5.38 gdru=783) LYMPHOCYTES ABSOLUTE COUNT (BEAKER) (test 0.70 K/ L 1.32-3.57 ciqh=590) MONOCYTES ABSOLUTE COUNT (BEAKER) (test 0.59 K/ L 0.30-0.82 uybm=347) EOSINOPHILS ABSOLUTE COUNT (BEAKER) (test 0.07 K/ L 0.04-0.54 sjdu=264) BASOPHILS ABSOLUTE COUNT (BEAKER) (test 0.03 K/ L 0.01-0.08 acgz=824) IMMATURE GRANULOCYTES-RELATIVE PERCENT (BEAKER) 1 % 0-1 (test enuw=6435) CBC W/PLT COUNT & AUTO [id number] 05:48:00 Test Item Value Reference Range Comments WHITE BLOOD CELL COUNT (BEAKER) (test gqtv=961) 8.7 K/ L 3.5-10.5 RED BLOOD CELL COUNT (BEAKER) (test nlht=561) 3.26 M/ L 4.63-6.08 HEMOGLOBIN (BEAKER) (test uhjm=596) 8.9 GM/DL 13.7-17.5 HEMATOCRIT (BEAKER) (test avyk=405) 29.8 % 40.1-51.0 MEAN CORPUSCULAR VOLUME (BEAKER) (test wauc=910) 91.4 fL 79.0-92.2 MEAN CORPUSCULAR HEMOGLOBIN (BEAKER) (test 27.3 pg 25.7-32.2 lrwz=372) MEAN CORPUSCULAR HEMOGLOBIN CONC (BEAKER) (test 29.9 GM/DL 32.3-36.5 ggaq=219) RED CELL DISTRIBUTION WIDTH (BEAKER) (test 15.9 % 11.6-14.4 dgea=211) PLATELET COUNT (BEAKER) (test jktw=884) 475 K/CU MM 150-450 MEAN PLATELET VOLUME (BEAKER) (test sqpj=496) 9.4 fL 9.4-12.4 NUCLEATED RED BLOOD CELLS (BEAKER) (test 0 /100 WBC 0-0 unwz=717) NEUTROPHILS RELATIVE PERCENT (BEAKER) (test 84 % gzqm=910) LYMPHOCYTES RELATIVE PERCENT (BEAKER) (test 8 % ozes=657) MONOCYTES RELATIVE PERCENT (BEAKER) (test 7 % eedl=618) EOSINOPHILS RELATIVE PERCENT (BEAKER) (test 1 % uzpf=399) BASOPHILS RELATIVE PERCENT (BEAKER) (test 1 % qlru=800) NEUTROPHILS ABSOLUTE COUNT (BEAKER) (test 7.27 K/ L 1.78-5.38 pvvy=218) LYMPHOCYTES ABSOLUTE COUNT (BEAKER) (test 0.65 K/ L 1.32-3.57 ahjy=301) MONOCYTES ABSOLUTE COUNT (BEAKER) (test 0.60 K/ L 0.30-0.82 yypg=077) EOSINOPHILS ABSOLUTE COUNT (BEAKER) (test 0.07 K/ L 0.04-0.54 ytdp=109) BASOPHILS ABSOLUTE COUNT (BEAKER) (test 0.04 K/ L 0.01-0.08 nqkt=361) IMMATURE GRANULOCYTES-RELATIVE PERCENT (BEAKER) 1 % 0-1 (test ilzj=4713) POCT-GLUCOSE [id number] 02:45:00 Test Item Value Reference Range Comments POC-GLUCOSE METER (BEAKER) 131 mg/dL 70-110 TESTED AT [address] (test owrg=3767) [place] [address] OCCULT BLOOD, [id number] 01:43:00 Test Item Value Reference Range Comments FECAL OCCULT BLOOD (BEAKER) (test grix=297) Positive Negative POCT-GLUCOSE [id number] 21:09:00 Test Item Value Reference Range Comments POC-GLUCOSE METER (BEAKER) 104 mg/dL 70-110 TESTED AT [address] (test cbil=9246) [place] [address] POCT-GLUCOSE [id number] 16:40:00 Test Item Value Reference Range Comments POC-GLUCOSE METER (BEAKER) 233 mg/dL 70-110 TESTED AT [address] (test baji=0608) [place] [address] [id number] 14:38:00 Test Item Value Reference Range Comments PARTIAL THROMBOPLASTIN TIME (BEAKER) (test 90.4 seconds 22.5-36.0 oiso=996) RAD, ABDOMEN/KUB, 1 VIEW [id number] 14:33:00Reason for exam:->NG placementShould this be performed at the bedside?->YesFINAL REPORT ONE VIEW ABDOMEN HISTORY: Nasogastric tube placement COMPARISON:02/25 FINDINGS: 2 supine AP images of the abdomen were obtained. A nasogastric tube is present, with its tip in the region of the body of the stomach. Gas and fecal material present in nondilated large intestine. There is gas in a few loops of nondilated small bowel in the central abdomen. There are degenerative changes in the spine. Signed: [facility] Verified Date/Time: 2017 14:33:02 Reading Location: [address] Ortho Consult Reading Room RAD, CHEST, 1 VIEW, NON [id number] 14:20:00Reason for exam:->NG placementShould this be performed at the bedside?->YesFINAL REPORT CHEST ONE VIEW HISTORY: Nasogastric tube placement COMPARISON: 02/18/2017 FINDINGS: Single portable AP examination of the chest was performed. Lung volumes are low ,with mild patchy airspace opacities at the lung bases suggestive of atelectasis or pneumonia. Faint interstitial opacities in the lungs, suggestive of interstitial edema. The cardiac shadow is difficult to assess due to the low lung volumes. Small right pleural effusion is suspected. No pneumothorax. Tracheostomy tube tip is well above the tiago. Nasogastric tube passes below the diaphragm, with thetip in the region of the stomach. Signed: Saad Cochran Verified Date/Time: 03/03/2017 14:20:07 Reading Location: [facility] [id number] Ortho Consult Reading Room POCT-GLUCOSE [id number] 13:04:00 Test Item Value Reference Range Comments POC-GLUCOSE METER (BEAKER) 188 mg/dL 70-110 TESTED AT [address] (test qtcr=5060) [facility] [id number] POCT-GLUCOSE [id number] 08:26:00 Test Item Value Reference Range Comments POC-GLUCOSE METER (BEAKER) 264 mg/dL 70-110 TESTED AT [address] (test uwvv=2290) [facility] [id number] CALCIUM, [id number] 06:30:00 Test Item Value Reference Range Comments CALCIUM IONIZED (BEAKER) (test ldep=477) 1.04 mmol/L 1.12-1.27 PH, BLOOD (BEAKER) (test jesw=2739) 7.37 [id number] 06:12:00 Test Item Value Reference Range Comments PHOSPHORUS (BEAKER) (test eapi=891) 3.0 mg/dL 2.3-4.7 [id number] 06:12:00 Test Item Value Reference Range Comments MAGNESIUM (BEAKER) (test sdnw=873) 1.7 mg/dL 1.6-2.6 BASIC METABOLIC [id number] 06:12:00 Test Item Value Reference Range Comments SODIUM (BEAKER) (test 137 meq/L 136-145 tuvb=556) POTASSIUM (BEAKER) (test 4.3 meq/L 3.5-5.1 nfty=240) CHLORIDE (BEAKER) (test 101 meq/L 98-107 btnn=268) CO2 (BEAKER) (test 28 meq/L 22-29 rwlv=511) BLOOD UREA NITROGEN 16 mg/dL 7-21 (BEAKER) (test fwfd=885) CREATININE (BEAKER) (test 0.66 mg/dL 0.57-1.25 rsxf=971) GLUCOSE RANDOM (BEAKER) 192 mg/dL 70-105 (test bpfd=509) CALCIUM (BEAKER) (test 8.7 mg/dL 8.4-10.2 bkjg=158) EGFR (BEAKER) (test 124 mL/min/1.73 sq m ESTIMATED GFR IS NOT cpkz=7311) ACCURATE CREATININE CLEARANCE IN PREDICTING GLOMERULAR FILTRATION RATE. ESTIMATED GFR IS NOT APPLICABLE FOR DIALYSIS PATIENTS. [id number] 06:00:00 Test Item Value Reference Range Comments PARTIAL THROMBOPLASTIN TIME (BEAKER) (test 51.3 seconds 22.5-36.0 jmlb=058) CBC W/PLT COUNT & AUTO [id number] 05:58:00 Test Item Value Reference Range Comments WHITE BLOOD CELL COUNT (BEAKER) (test upcf=509) 8.1 K/ L 3.5-10.5 RED BLOOD CELL COUNT (BEAKER) (test oowu=250) 3.46 M/ L 4.63-6.08 HEMOGLOBIN (BEAKER) (test vlzz=989) 9.4 GM/DL 13.7-17.5 HEMATOCRIT (BEAKER) (test igio=344) 32.2 % 40.1-51.0 MEAN CORPUSCULAR VOLUME (BEAKER) (test uyvd=872) 93.1 fL 79.0-92.2 MEAN CORPUSCULAR HEMOGLOBIN (BEAKER) (test 27.2 pg 25.7-32.2 tmmi=522) MEAN CORPUSCULAR HEMOGLOBIN CONC (BEAKER) (test 29.2 GM/DL 32.3-36.5 hhgf=117) RED CELL DISTRIBUTION WIDTH (BEAKER) (test 16.3 % 11.6-14.4 lnpx=112) PLATELET COUNT (BEAKER) (test rkjp=276) 471 K/CU MM 150-450 MEAN PLATELET VOLUME (BEAKER) (test rlar=853) 9.6 fL 9.4-12.4 NUCLEATED RED BLOOD CELLS (BEAKER) (test 0 /100 WBC 0-0 hgfk=313) NEUTROPHILS RELATIVE PERCENT (BEAKER) (test 76 % jvns=651) LYMPHOCYTES RELATIVE PERCENT (BEAKER) (test 14 % jdmm=194) MONOCYTES RELATIVE PERCENT (BEAKER) (test 8 % nokr=024) EOSINOPHILS RELATIVE PERCENT (BEAKER) (test 1 % yugi=062) BASOPHILS RELATIVE PERCENT (BEAKER) (test 0 % afqu=261) NEUTROPHILS ABSOLUTE COUNT (BEAKER) (test 6.13 K/ L 1.78-5.38 pihn=277) LYMPHOCYTES ABSOLUTE COUNT (BEAKER) (test 1.14 K/ L 1.32-3.57 dbtf=885) MONOCYTES ABSOLUTE COUNT (BEAKER) (test 0.66 K/ L 0.30-0.82 auxr=632) EOSINOPHILS ABSOLUTE COUNT (BEAKER) (test 0.08 K/ L 0.04-0.54 toyl=278) BASOPHILS ABSOLUTE COUNT (BEAKER) (test 0.03 K/ L 0.01-0.08 mmkd=578) IMMATURE GRANULOCYTES-RELATIVE PERCENT (BEAKER) 1 % 0-1 (test biuy=4486) POCT-GLUCOSE [id number] 04:02:00 Test Item Value Reference Range Comments POC-GLUCOSE METER (BEAKER) 168 mg/dL 70-110 TESTED AT [address] (test gasq=6208) [facility] [address] POCT-GLUCOSE [id number] 21:21:00 Test Item Value Reference Range Comments POC-GLUCOSE METER (BEAKER) 87 mg/dL 70-110 TESTED AT [address] (test hplw=7014) [facility] [address] POCT-GLUCOSE [id number] 21:21:00 Test Item Value Reference Range Comments POC-GLUCOSE METER (BEAKER) 82 mg/dL 70-110 TESTED AT [address] (test idux=0225) [facility] [address] POCT-GLUCOSE [id number] 19:01:00 Test Item Value Reference Range Comments POC-GLUCOSE METER (BEAKER) 88 mg/dL 70-110 TESTED AT [address] (test fdlj=4596) [place] [address] POCT-GLUCOSE [id number] 17:50:00 Test Item Value Reference Range Comments POC-GLUCOSE METER (BEAKER) 51 mg/dL 70-110 TESTED AT [address] (test msuf=6557) [place] [id number] POCT-GLUCOSE [id number] 12:06:00 Test Item Value Reference Range Comments POC-GLUCOSE METER (BEAKER) 186 mg/dL 70-110 TESTED AT [address] (test yzjh=7098) [place] [id number] POCT-GLUCOSE [id number] 09:00:00 Test Item Value Reference Range Comments POC-GLUCOSE METER (BEAKER) 192 mg/dL 70-110 TESTED AT [address] (test sopc=1065) [place] [id number] T4, [id number] 07:27:00 Test Item Value Reference Range Comments FREE T4 (BEAKER) (test ghfh=920) 1.17 ng/dL 0.70-1.48 TSH/FREE T4 IF [id number] 07:27:00 Test Item Value Reference Range Comments THYROID STIMULATING HORMONE (BEAKER) (test 0.38 uIU/mL 0.35-4.94 ollc=805) [id number] 07:09:00 Test Item Value Reference Range Comments PHOSPHORUS (BEAKER) (test nwmr=785) 2.9 mg/dL 2.3-4.7 [id number] 07:09:00 Test Item Value Reference Range Comments MAGNESIUM (BEAKER) (test gwgy=688) 1.6 mg/dL 1.6-2.6 BASIC METABOLIC [id number] 07:09:00 Test Item Value Reference Range Comments SODIUM (BEAKER) (test 137 meq/L 136-145 chkm=558) POTASSIUM (BEAKER) (test 4.6 meq/L 3.5-5.1 fsqo=166) CHLORIDE (BEAKER) (test 102 meq/L 98-107 uqow=517) CO2 (BEAKER) (test 26 meq/L 22-29 uuiy=400) BLOOD UREA NITROGEN 20 mg/dL 7-21 (BEAKER) (test jdsc=426) CREATININE (BEAKER) (test 0.63 mg/dL 0.57-1.25 faiv=332) GLUCOSE RANDOM (BEAKER) 107 mg/dL 70-105 (test pfvs=209) CALCIUM (BEAKER) (test 8.5 mg/dL 8.4-10.2 twik=627) EGFR (BEAKER) (test 131 mL/min/1.73 sq m ESTIMATED GFR IS NOT njsm=1848) ACCURATE CREATININE CLEARANCE IN PREDICTING GLOMERULAR FILTRATION RATE. ESTIMATED GFR IS NOT APPLICABLE FOR DIALYSIS PATIENTS. CBC W/PLT COUNT & AUTO [id number] 06:48:00 Test Item Value Reference Range Comments WHITE BLOOD CELL COUNT (BEAKER) (test eoeh=943) 8.7 K/ L 3.5-10.5 RED BLOOD CELL COUNT (BEAKER) (test xvpy=968) 3.15 M/ L 4.63-6.08 HEMOGLOBIN (BEAKER) (test ntdq=746) 8.8 GM/DL 13.7-17.5 HEMATOCRIT (BEAKER) (test mdqh=223) 29.4 % 40.1-51.0 MEAN CORPUSCULAR VOLUME (BEAKER) (test hpgx=610) 93.3 fL 79.0-92.2 MEAN CORPUSCULAR HEMOGLOBIN (BEAKER) (test 27.9 pg 25.7-32.2 ogoe=496) MEAN CORPUSCULAR HEMOGLOBIN CONC (BEAKER) (test 29.9 GM/DL 32.3-36.5 tgzo=075) RED CELL DISTRIBUTION WIDTH (BEAKER) (test 16.3 % 11.6-14.4 yond=303) PLATELET COUNT (BEAKER) (test gxtg=136) 459 K/CU MM 150-450 MEAN PLATELET VOLUME (BEAKER) (test rwsq=947) 9.9 fL 9.4-12.4 NUCLEATED RED BLOOD CELLS (BEAKER) (test 0 /100 WBC 0-0 biqn=627) NEUTROPHILS RELATIVE PERCENT (BEAKER) (test 78 % nrun=376) LYMPHOCYTES RELATIVE PERCENT (BEAKER) (test 12 % ccvd=107) MONOCYTES RELATIVE PERCENT (BEAKER) (test 8 % rcmq=657) EOSINOPHILS RELATIVE PERCENT (BEAKER) (test 1 % bzit=736) BASOPHILS RELATIVE PERCENT (BEAKER) (test 0 % kbaa=855) NEUTROPHILS ABSOLUTE COUNT (BEAKER) (test 6.76 K/ L 1.78-5.38 tjrp=395) LYMPHOCYTES ABSOLUTE COUNT (BEAKER) (test 1.03 K/ L 1.32-3.57 vyvi=201) MONOCYTES ABSOLUTE COUNT (BEAKER) (test 0.72 K/ L 0.30-0.82 katb=876) EOSINOPHILS ABSOLUTE COUNT (BEAKER) (test 0.09 K/ L 0.04-0.54 yscc=367) BASOPHILS ABSOLUTE COUNT (BEAKER) (test 0.02 K/ L 0.01-0.08 axdd=564) IMMATURE GRANULOCYTES-RELATIVE PERCENT (BEAKER) 1 % 0-1 (test hacx=1065) POCT-GLUCOSE [id number] 06:16:00 Test Item Value Reference Range Comments POC-GLUCOSE METER (BEAKER) 113 mg/dL 70-110 TESTED AT [address] (test gwgz=5285) [place] [address] CALCIUM, [id number] 05:43:00 Test Item Value Reference Range Comments CALCIUM IONIZED (BEAKER) (test siot=455) 0.94 mmol/L 1.12-1.27 PH, BLOOD (BEAKER) (test uaah=4572) 7.52 POCT-GLUCOSE [id number] 00:42:00 Test Item Value Reference Range Comments POC-GLUCOSE METER (BEAKER) 154 mg/dL 70-110 TESTED AT [address] (test gffx=2599) [place] [address] POCT-GLUCOSE [id number] 18:00:00 Test Item Value Reference Range Comments POC-GLUCOSE METER (BEAKER) 134 mg/dL 70-110 TESTED AT [address] (test eqmj=0550) [facility] [address] POCT-GLUCOSE [id number] 12:46:00 Test Item Value Reference Range Comments POC-GLUCOSE METER (BEAKER) 197 mg/dL 70-110 TESTED AT [address] (test ntcz=0736) [facility] [address] POCT-GLUCOSE [id number] 11:37:00 Test Item Value Reference Range Comments POC-GLUCOSE METER (BEAKER) 174 mg/dL 70-110 TESTED AT [address] (test sdjb=3960) [facility] [address] CALCIUM, [id number] 05:19:00 Test Item Value Reference Range Comments CALCIUM IONIZED (BEAKER) (test ypir=992) 1.16 mmol/L 1.12-1.27 PH, BLOOD (BEAKER) (test fbks=5741) 7.44 [id number] 05:15:00 Test Item Value Reference Range Comments PHOSPHORUS (BEAKER) (test lcxu=066) 2.9 mg/dL 2.3-4.7 [id number] 05:15:00 Test Item Value Reference Range Comments MAGNESIUM (BEAKER) (test aulr=510) 1.8 mg/dL 1.6-2.6 BASIC METABOLIC [id number] 05:15:00 Test Item Value Reference Range Comments SODIUM (BEAKER) (test 140 meq/L 136-145 lfec=656) POTASSIUM (BEAKER) (test 4.6 meq/L 3.5-5.1 kjvd=022) CHLORIDE (BEAKER) (test 104 meq/L 98-107 lqpa=400) CO2 (BEAKER) (test 30 meq/L 22-29 vigw=732) BLOOD UREA NITROGEN 20 mg/dL 7-21 (BEAKER) (test qwxk=864) CREATININE (BEAKER) (test 0.63 mg/dL 0.57-1.25 zwfd=048) GLUCOSE RANDOM (BEAKER) 142 mg/dL 70-105 (test cibf=869) CALCIUM (BEAKER) (test 8.5 mg/dL 8.4-10.2 uokl=576) EGFR (BEAKER) (test 131 mL/min/1.73 sq m ESTIMATED GFR IS NOT gndo=5960) ACCURATE CREATININE CLEARANCE IN PREDICTING GLOMERULAR FILTRATION RATE. ESTIMATED GFR IS NOT APPLICABLE FOR DIALYSIS PATIENTS. CBC W/PLT COUNT & AUTO [id number] 04:40:00 Test Item Value Reference Range Comments WHITE BLOOD CELL COUNT (BEAKER) (test dyat=934) 7.9 K/ L 3.5-10.5 RED BLOOD CELL COUNT (BEAKER) (test akrj=216) 3.14 M/ L 4.63-6.08 HEMOGLOBIN (BEAKER) (test omck=678) 8.5 GM/DL 13.7-17.5 HEMATOCRIT (BEAKER) (test bhcp=805) 29.2 % 40.1-51.0 MEAN CORPUSCULAR VOLUME (BEAKER) (test mkpb=161) 93.0 fL 79.0-92.2 MEAN CORPUSCULAR HEMOGLOBIN (BEAKER) (test 27.1 pg 25.7-32.2 zgsg=325) MEAN CORPUSCULAR HEMOGLOBIN CONC (BEAKER) (test 29.1 GM/DL 32.3-36.5 khlw=032) RED CELL DISTRIBUTION WIDTH (BEAKER) (test 16.3 % 11.6-14.4 ofvk=629) PLATELET COUNT (BEAKER) (test nttk=491) 469 K/CU MM 150-450 MEAN PLATELET VOLUME (BEAKER) (test ksnz=651) 9.8 fL 9.4-12.4 NUCLEATED RED BLOOD CELLS (BEAKER) (test 0 /100 WBC 0-0 ojuk=910) NEUTROPHILS RELATIVE PERCENT (BEAKER) (test 74 % stfh=132) LYMPHOCYTES RELATIVE PERCENT (BEAKER) (test 13 % tmul=787) MONOCYTES RELATIVE PERCENT (BEAKER) (test 9 % xixw=329) EOSINOPHILS RELATIVE PERCENT (BEAKER) (test 2 % xhue=366) BASOPHILS RELATIVE PERCENT (BEAKER) (test 1 % kqyu=374) NEUTROPHILS ABSOLUTE COUNT (BEAKER) (test 5.91 K/ L 1.78-5.38 gqqn=778) LYMPHOCYTES ABSOLUTE COUNT (BEAKER) (test 1.05 K/ L 1.32-3.57 kmqm=919) MONOCYTES ABSOLUTE COUNT (BEAKER) (test 0.72 K/ L 0.30-0.82 jczo=365) EOSINOPHILS ABSOLUTE COUNT (BEAKER) (test 0.12 K/ L 0.04-0.54 sewc=217) BASOPHILS ABSOLUTE COUNT (BEAKER) (test 0.04 K/ L 0.01-0.08 duzr=612) IMMATURE GRANULOCYTES-RELATIVE PERCENT (BEAKER) 1 % 0-1 (test lvzv=3446) POCT-GLUCOSE [id number] 21:22:00 Test Item Value Reference Range Comments POC-GLUCOSE METER (BEAKER) 143 mg/dL 70-110 TESTED AT [address] (test dmlx=5648) [place] [address] POCT-GLUCOSE [id number] 18:03:00 Test Item Value Reference Range Comments POC-GLUCOSE METER (BEAKER) 123 mg/dL 70-110 TESTED AT [address] (test ppew=9562) [place] [address] POCT-GLUCOSE [id number] 12:49:00 Test Item Value Reference Range Comments POC-GLUCOSE METER (BEAKER) 197 mg/dL 70-110 TESTED AT [address] (test xkko=0045) [place] [address] FUNGUS CULTURE + [id number] 11:55:00 Test Item Value Reference Range Comments CULTURE (BEAKER) (test No fungus isolated in 28 days yiar=0862) FUNGUS SMEAR (BEAKER) (test No fungi seen qmst=5466) POCT-GLUCOSE [id number] 08:30:00 Test Item Value Reference Range Comments POC-GLUCOSE METER (BEAKER) 259 mg/dL 70-110 TESTED AT [address] (test mdbl=3791) [place] [address] POCT-GLUCOSE [id number] 06:35:00 Test Item Value Reference Range Comments POC-GLUCOSE METER (BEAKER) 342 mg/dL 70-110 TESTED AT [address] (test kezq=1254) [place] [address] [id number] 06:23:00 Test Item Value Reference Range Comments THYROID STIMULATING HORMONE (BEAKER) (test 0.51 uIU/mL 0.35-4.94 vwtn=690) CBC W/PLT COUNT & AUTO [id number] 06:17:00 Test Item Value Reference Range Comments WHITE BLOOD CELL COUNT (BEAKER) (test pvcg=453) 10.4 K/ L 3.5-10.5 RED BLOOD CELL COUNT (BEAKER) (test edbg=051) 3.11 M/ L 4.63-6.08 HEMOGLOBIN (BEAKER) (test vgpa=161) 8.6 GM/DL 13.7-17.5 HEMATOCRIT (BEAKER) (test yjjg=900) 29.2 % 40.1-51.0 MEAN CORPUSCULAR VOLUME (BEAKER) (test aysl=449) 93.9 fL 79.0-92.2 MEAN CORPUSCULAR HEMOGLOBIN (BEAKER) (test 27.7 pg 25.7-32.2 brty=731) MEAN CORPUSCULAR HEMOGLOBIN CONC (BEAKER) (test 29.5 GM/DL 32.3-36.5 czms=003) RED CELL DISTRIBUTION WIDTH (BEAKER) (test 16.2 % 11.6-14.4 kjhp=968) PLATELET COUNT (BEAKER) (test qrlq=339) 480 K/CU MM 150-450 MEAN PLATELET VOLUME (BEAKER) (test nzrn=514) 10.2 fL 9.4-12.4 NUCLEATED RED BLOOD CELLS (BEAKER) (test 1 /100 WBC 0-0 nigu=868) NEUTROPHILS RELATIVE PERCENT (BEAKER) (test 77 % wtbi=748) LYMPHOCYTES RELATIVE PERCENT (BEAKER) (test 11 % enwc=040) MONOCYTES RELATIVE PERCENT (BEAKER) (test 8 % iiwz=843) EOSINOPHILS RELATIVE PERCENT (BEAKER) (test 2 % zrpy=302) BASOPHILS RELATIVE PERCENT (BEAKER) (test 1 % hics=542) NEUTROPHILS ABSOLUTE COUNT (BEAKER) (test 8.04 K/ L 1.78-5.38 dzes=905) LYMPHOCYTES ABSOLUTE COUNT (BEAKER) (test 1.09 K/ L 1.32-3.57 kvcy=739) MONOCYTES ABSOLUTE COUNT (BEAKER) (test 0.84 K/ L 0.30-0.82 nhzo=221) EOSINOPHILS ABSOLUTE COUNT (BEAKER) (test 0.16 K/ L 0.04-0.54 azvb=399) BASOPHILS ABSOLUTE COUNT (BEAKER) (test 0.05 K/ L 0.01-0.08 wzuh=816) IMMATURE GRANULOCYTES-RELATIVE PERCENT (BEAKER) 2 % 0-1 (test eqtm=4793) CALCIUM, [id number] 06:10:00 Test Item Value Reference Range Comments CALCIUM IONIZED (BEAKER) (test matp=670) 1.09 mmol/L 1.12-1.27 PH, BLOOD (BEAKER) (test czkm=5235) 7.41 [id number] 06:01:00 Test Item Value Reference Range Comments PHOSPHORUS (BEAKER) (test mhxd=072) 2.6 mg/dL 2.3-4.7 [id number] 06:01:00 Test Item Value Reference Range Comments MAGNESIUM (BEAKER) (test eqhj=973) 1.8 mg/dL 1.6-2.6 BASIC METABOLIC [id number] 06:01:00 Test Item Value Reference Range Comments SODIUM (BEAKER) (test 142 meq/L 136-145 ddjt=240) POTASSIUM (BEAKER) (test 4.7 meq/L 3.5-5.1 lcqu=517) CHLORIDE (BEAKER) (test 106 meq/L 98-107 mtjk=013) CO2 (BEAKER) (test 28 meq/L 22-29 vftn=984) BLOOD UREA NITROGEN 20 mg/dL 7-21 (BEAKER) (test coth=087) CREATININE (BEAKER) (test 0.63 mg/dL 0.57-1.25 jvzy=357) GLUCOSE RANDOM (BEAKER) 190 mg/dL 70-105 (test krrf=967) CALCIUM (BEAKER) (test 8.7 mg/dL 8.4-10.2 qvmu=813) EGFR (BEAKER) (test 131 mL/min/1.73 sq m ESTIMATED GFR IS NOT pdwo=6004) ACCURATE CREATININE CLEARANCE IN PREDICTING GLOMERULAR FILTRATION RATE. ESTIMATED GFR IS NOT APPLICABLE FOR DIALYSIS PATIENTS. POCT-GLUCOSE [id number] 00:28:00 Test Item Value Reference Range Comments POC-GLUCOSE METER (BEAKER) 227 mg/dL 70-110 TESTED AT [facility] [address] [facility] (test nwoj=8482) [facility] [address] POCT-GLUCOSE [id number] 21:44:00 Test Item Value Reference Range Comments POC-GLUCOSE METER (BEAKER) 253 mg/dL 70-110 TESTED AT [facility] [address] [place] [address] (test ticx=3998) [facility] [address] POCT-GLUCOSE [id number] 17:44:00 Test Item Value Reference Range Comments POC-GLUCOSE METER (BEAKER) 222 mg/dL 70-110 TESTED AT [address] (test kkgi=3336) [place] [address] POCT-GLUCOSE [id number] 11:50:00 Test Item Value Reference Range Comments POC-GLUCOSE METER (BEAKER) 93 mg/dL 70-110 TESTED AT [address] (test nxgf=7507) [place] [address] POCT-GLUCOSE [id number] 10:35:00 Test Item Value Reference Range Comments POC-GLUCOSE METER (BEAKER) 86 mg/dL 70-110 TESTED AT [address] (test dpgc=0173) [place] [address] POCT-GLUCOSE [id number] 09:53:00 Test Item Value Reference Range Comments POC-GLUCOSE METER (BEAKER) 60 mg/dL 70-110 Notified [facility]/TESTED AT [facility] (test vrlr=8677) [address] [place] [address] POCT-GLUCOSE [id number] 09:18:00 Test Item Value Reference Range Comments POC-GLUCOSE METER (BEAKER) 63 mg/dL 70-110 Notified CATE NICHOLS/TESTED AT [facility] (test sidf=3083) [address] [place] [address] POCT-GLUCOSE [id number] 08:48:00 Test Item Value Reference Range Comments POC-GLUCOSE METER (BEAKER) 55 mg/dL 70-110 Notified [facility]ATE NICHOLS/TESTED AT [facility] (test boue=1261) [address] [place], [place] [id number] POCT-GLUCOSE [id number] 05:48:00 Test Item Value Reference Range Comments POC-GLUCOSE METER (BEAKER) 85 mg/dL 70-110 TESTED AT [address] (test tgpd=4045) [place] [address] [id number] 05:27:00 Test Item Value Reference Range Comments PHOSPHORUS (BEAKER) (test gail=220) 2.4 mg/dL 2.3-4.7 [id number] 05:27:00 Test Item Value Reference Range Comments MAGNESIUM (BEAKER) (test nnsk=013) 1.9 mg/dL 1.6-2.6 BASIC METABOLIC [id number] 05:27:00 Test Item Value Reference Range Comments SODIUM (BEAKER) (test 145 meq/L 136-145 drmg=370) POTASSIUM (BEAKER) (test 4.0 meq/L 3.5-5.1 qvnn=506) CHLORIDE (BEAKER) (test 108 meq/L 98-107 hzwj=147) CO2 (BEAKER) (test 28 meq/L 22-29 etua=087) BLOOD UREA NITROGEN 22 mg/dL 7-21 (BEAKER) (test jmhy=724) CREATININE (BEAKER) (test 0.64 mg/dL 0.57-1.25 icur=105) GLUCOSE RANDOM (BEAKER) 76 mg/dL 70-105 (test jmht=000) CALCIUM (BEAKER) (test 8.6 mg/dL 8.4-10.2 joer=494) EGFR (BEAKER) (test 128 mL/min/1.73 sq m ESTIMATED GFR IS NOT pkao=9114) ACCURATE CREATININE CLEARANCE IN PREDICTING GLOMERULAR FILTRATION RATE. ESTIMATED GFR IS NOT APPLICABLE FOR DIALYSIS PATIENTS. CALCIUM, [id number] 05:25:00 Test Item Value Reference Range Comments CALCIUM IONIZED (BEAKER) (test bqwz=097) 1.10 mmol/L 1.12-1.27 PH, BLOOD (BEAKER) (test ymnr=6224) 7.43 CBC W/PLT COUNT & AUTO [id number] 05:19:00 Test Item Value Reference Range Comments WHITE BLOOD CELL COUNT (BEAKER) (test juvp=565) 10.8 K/ L 3.5-10.5 RED BLOOD CELL COUNT (BEAKER) (test sxol=571) 3.09 M/ L 4.63-6.08 HEMOGLOBIN (BEAKER) (test ykuv=398) 8.7 GM/DL 13.7-17.5 HEMATOCRIT (BEAKER) (test iybb=110) 29.1 % 40.1-51.0 MEAN CORPUSCULAR VOLUME (BEAKER) (test ovso=141) 94.2 fL 79.0-92.2 MEAN CORPUSCULAR HEMOGLOBIN (BEAKER) (test 28.2 pg 25.7-32.2 wnag=663) MEAN CORPUSCULAR HEMOGLOBIN CONC (BEAKER) (test 29.9 GM/DL 32.3-36.5 xkwq=706) RED CELL DISTRIBUTION WIDTH (BEAKER) (test 16.1 % 11.6-14.4 dwxm=146) PLATELET COUNT (BEAKER) (test bmjh=213) 491 K/CU MM 150-450 MEAN PLATELET VOLUME (BEAKER) (test tqgo=012) 10.3 fL 9.4-12.4 NUCLEATED RED BLOOD CELLS (BEAKER) (test 1 /100 WBC 0-0 zfgf=384) NEUTROPHILS RELATIVE PERCENT (BEAKER) (test 76 % erpw=543) LYMPHOCYTES RELATIVE PERCENT (BEAKER) (test 11 % quqx=843) MONOCYTES RELATIVE PERCENT (BEAKER) (test 7 % xhpv=786) EOSINOPHILS RELATIVE PERCENT (BEAKER) (test 2 % brsw=771) BASOPHILS RELATIVE PERCENT (BEAKER) (test 0 % tiza=867) NEUTROPHILS ABSOLUTE COUNT (BEAKER) (test 8.17 K/ L 1.78-5.38 pvbb=461) LYMPHOCYTES ABSOLUTE COUNT (BEAKER) (test 1.19 K/ L 1.32-3.57 rlez=241) MONOCYTES ABSOLUTE COUNT (BEAKER) (test 0.71 K/ L 0.30-0.82 pbtw=531) EOSINOPHILS ABSOLUTE COUNT (BEAKER) (test 0.17 K/ L 0.04-0.54 crzv=721) BASOPHILS ABSOLUTE COUNT (BEAKER) (test 0.04 K/ L 0.01-0.08 htev=399) IMMATURE GRANULOCYTES-RELATIVE PERCENT (BEAKER) 5 % 0-1 (test mmyk=4100) POCT-GLUCOSE [id number] 23:21:00 Test Item Value Reference Range Comments POC-GLUCOSE METER (BEAKER) 125 mg/dL 70-110 TESTED AT [address] (test ldvy=1768) [facility] [address] POCT-GLUCOSE [id number] 22:04:00 Test Item Value Reference Range Comments POC-GLUCOSE METER (BEAKER) 116 mg/dL 70-110 TESTED AT [address] (test wvzw=6009) [facility] [address] POCT-GLUCOSE [id number] 18:09:00 Test Item Value Reference Range Comments POC-GLUCOSE METER (BEAKER) 134 mg/dL 70-110 TESTED AT [address] (test xtla=9857) [facility] [address] CBC W/PLT COUNT & AUTO [id number] 13:31:00 Test Item Value Reference Range Comments WHITE BLOOD CELL COUNT (BEAKER) (test btmy=973) 13.5 K/ L 3.5-10.5 RED BLOOD CELL COUNT (BEAKER) (test auap=055) 2.95 M/ L 4.63-6.08 HEMOGLOBIN (BEAKER) (test hlvu=455) 8.2 GM/DL 13.7-17.5 HEMATOCRIT (BEAKER) (test uvlv=278) 27.6 % 40.1-51.0 MEAN CORPUSCULAR VOLUME (BEAKER) (test bssm=315) 93.6 fL 79.0-92.2 MEAN CORPUSCULAR HEMOGLOBIN (BEAKER) (test 27.8 pg 25.7-32.2 jsdg=641) MEAN CORPUSCULAR HEMOGLOBIN CONC (BEAKER) (test 29.7 GM/DL 32.3-36.5 ckne=156) RED CELL DISTRIBUTION WIDTH (BEAKER) (test 16.0 % 11.6-14.4 fubh=845) PLATELET COUNT (BEAKER) (test jmou=820) 435 K/CU MM 150-450 MEAN PLATELET VOLUME (BEAKER) (test ocjy=299) 10.0 fL 9.4-12.4 NUCLEATED RED BLOOD CELLS (BEAKER) (test 1 /100 WBC 0-0 ahkv=444) NEUTROPHILS RELATIVE PERCENT (BEAKER) (test 77 % enlw=719) LYMPHOCYTES RELATIVE PERCENT (BEAKER) (test 8 % kbic=360) MONOCYTES RELATIVE PERCENT (BEAKER) (test 6 % sxtu=837) EOSINOPHILS RELATIVE PERCENT (BEAKER) (test 1 % cego=582) BASOPHILS RELATIVE PERCENT (BEAKER) (test 0 % vcxs=324) NEUTROPHILS ABSOLUTE COUNT (BEAKER) (test 10.34 K/ L 1.78-5.38 hydz=500) LYMPHOCYTES ABSOLUTE COUNT (BEAKER) (test 1.08 K/ L 1.32-3.57 fhlw=536) MONOCYTES ABSOLUTE COUNT (BEAKER) (test 0.82 K/ L 0.30-0.82 tspy=161) EOSINOPHILS ABSOLUTE COUNT (BEAKER) (test 0.19 K/ L 0.04-0.54 uspi=066) BASOPHILS ABSOLUTE COUNT (BEAKER) (test 0.03 K/ L 0.01-0.08 zbba=745) IMMATURE GRANULOCYTES-RELATIVE PERCENT (BEAKER) 7 % 0-1 (test abrn=0251) (MANUAL DIFFERENTIAL)2017-02-26 13:31:00 Test Item Value Reference Range Comments TOTAL COUNTED (BEAKER) (test eltm=6658) WBC MORPHOLOGY (BEAKER) (test uwwx=301) Normal PLT MORPHOLOGY (BEAKER) (test oylp=940) Normal RBC MORPHOLOGY (BEAKER) (test vdxx=150) Normal POCT-GLUCOSE [id number] 11:53:00 Test Item Value Reference Range Comments POC-GLUCOSE METER (BEAKER) 134 mg/dL 70-110 TESTED AT [address] (test ofeq=0339) [place] [address] POCT-GLUCOSE [id number] 10:21:00 Test Item Value Reference Range Comments POC-GLUCOSE METER (BEAKER) 139 mg/dL 70-110 TESTED AT [address] (test nupm=3175) [place] [address] MISCELLANEOUS LAB [id number] 09:33:00 Test Item Value Reference Range Comments SCAN RESULT (test agds=[id number]) Result comments: NOT DETECTED Panel is negative for [employer] BCID-detectable organisms. Please refer to traditional culture and sensitivity results as they become available. Other organisms and resistance markers not contained in this PCR panel cannot be excluded and follow-up of traditional culture results is required. This sample was tested at the [facility] using the [employer] Film[employer] Blood Culture ID Panel. This test is FDA cleared for in vitro diagnostic use and hasbeen verified and approved by the [facility] for clinical use. ReferenceRange: Not DetectedPOCT-GLUCOSE [id number] 08:42:00 Test Item Value Reference Range Comments POC-GLUCOSE METER (BEAKER) 134 mg/dL 70-110 TESTED AT [address] (test ruge=5638) [place] [address] POCT-GLUCOSE [id number] 07:08:00 Test Item Value Reference Range Comments POC-GLUCOSE METER (BEAKER) 186 mg/dL 70-110 TESTED AT [address] (test hfia=0479) [place] [address] [id number] 03:34:00 Test Item Value Reference Range Comments PHOSPHORUS (BEAKER) (test kmlu=865) 2.7 mg/dL 2.3-4.7 [id number] 03:34:00 Test Item Value Reference Range Comments MAGNESIUM (BEAKER) (test bmjh=912) 1.8 mg/dL 1.6-2.6 BASIC METABOLIC [id number] 03:34:00 Test Item Value Reference Range Comments SODIUM (BEAKER) (test 142 meq/L 136-145 cvai=279) POTASSIUM (BEAKER) (test 4.4 meq/L 3.5-5.1 wcaa=715) CHLORIDE (BEAKER) (test 108 meq/L 98-107 ufsn=505) CO2 (BEAKER) (test 27 meq/L 22-29 qsny=188) BLOOD UREA NITROGEN 21 mg/dL 7-21 (BEAKER) (test abum=762) CREATININE (BEAKER) (test 0.66 mg/dL 0.57-1.25 squa=473) GLUCOSE RANDOM (BEAKER) 196 mg/dL 70-105 (test vtxm=094) CALCIUM (BEAKER) (test 8.5 mg/dL 8.4-10.2 sain=320) EGFR (BEAKER) (test 124 mL/min/1.73 sq m ESTIMATED GFR IS NOT eukm=2150) ACCURATE CREATININE CLEARANCE IN PREDICTING GLOMERULAR FILTRATION RATE. ESTIMATED GFR IS NOT APPLICABLE FOR DIALYSIS PATIENTS. CALCIUM, [id number] 03:06:00 Test Item Value Reference Range Comments CALCIUM IONIZED (BEAKER) (test ypvh=499) 1.17 mmol/L 1.12-1.27 PH, BLOOD (BEAKER) (test rlwr=4205) 7.40 POCT-GLUCOSE [id number] 00:45:00 Test Item Value Reference Range Comments POC-GLUCOSE METER (BEAKER) 152 mg/dL 70-110 TESTED AT [address] (test lbtg=0548) [facility] [address] POCT-GLUCOSE [id number] 21:46:00 Test Item Value Reference Range Comments POC-GLUCOSE METER (BEAKER) 84 mg/dL 70-110 TESTED AT [address] (test cmab=0308) [facility] [address] POCT-GLUCOSE [id number] 18:27:00 Test Item Value Reference Range Comments POC-GLUCOSE METER (BEAKER) 97 mg/dL 70-110 TESTED AT [address] (test mgbg=0358) [facility] [address] RAD, ABDOMEN/KUB, 1 VIEW [id number] 15:20:00Reason for exam:->Dobbhoff placement verification Should this be performed at the bedside?->YesFINAL REPORT INDICATION: Feeding tube placement. 1 view of the abdomen. COMPARISON: 02/24/2017 IMPRESSION: The feeding tube terminates in the distal stomach. The bowel gas pattern is nonspecific. Signed: Neil Tinsley MDReport Verified Date/Time: 02/25/2017 15:20:50 Reading Location: [facility] [id number] Ortho Consult Reading Room POCT-GLUCOSE [id number] 12:54:00 Test Item Value Reference Range Comments POC-GLUCOSE METER (BEAKER) 156 mg/dL 70-110 TESTED AT [address] (test xnbb=5013) [facility] [address] CBC W/PLT COUNT & AUTO [id number] 11:22:00 Test Item Value Reference Range Comments WHITE BLOOD CELL COUNT (BEAKER) (test kstd=050) 12.6 K/ L 3.5-10.5 RED BLOOD CELL COUNT (BEAKER) (test afho=538) 2.77 M/ L 4.63-6.08 HEMOGLOBIN (BEAKER) (test pozf=466) 7.7 GM/DL 13.7-17.5 HEMATOCRIT (BEAKER) (test kxnm=935) 26.2 % 40.1-51.0 MEAN CORPUSCULAR VOLUME (BEAKER) (test cjcm=405) 94.6 fL 79.0-92.2 MEAN CORPUSCULAR HEMOGLOBIN (BEAKER) (test 27.8 pg 25.7-32.2 vzgd=271) MEAN CORPUSCULAR HEMOGLOBIN CONC (BEAKER) (test 29.4 GM/DL 32.3-36.5 deoh=294) RED CELL DISTRIBUTION WIDTH (BEAKER) (test 15.8 % 11.6-14.4 gsnb=911) PLATELET COUNT (BEAKER) (test vlnc=365) 440 K/CU MM 150-450 MEAN PLATELET VOLUME (BEAKER) (test yqqg=875) 10.3 fL 9.4-12.4 NUCLEATED RED BLOOD CELLS (BEAKER) (test 3 /100 WBC 0-0 tinx=050) IMMATURE GRANULOCYTES-RELATIVE PERCENT (BEAKER) 10 % 0-1 (test cplm=2985) (MANUAL DIFFERENTIAL)2017-02-25 11:22:00 Test Item Value Reference Range Comments NEUTROPHILS - REL (DIFF) (BEAKER) (test 76 % kxdr=1407) LYMPHOCYTES - REL (DIFF) (BEAKER) (test 7 % flgd=9281) MONOCYTES - REL (DIFF) (BEAKER) (test fitw=4190) 3 % EOSINOPHILS - REL (DIFF) (BEAKER) (test 6 % seap=9718) BASOPHILS - REL (DIFF) (BEAKER) (test flub=4309) 0 % METAMYELOCYTES-REL (DIFF) (BEAKER) (test 2 % 0-0 lrwp=968) MYELOCYTES-REL (DIFF) (BEAKER) (test tyar=2801) 4 % 0-0 BANDS - REL (DIFF) (BEAKER) (test orde=1956) 2 % 0-10 NEUTROPHILS - ABS (DIFF) (BEAKER) (test 9.58 K/ L 1.80-8.00 vhbr=1384) LYMPHOCYTES - ABS (DIFF) (BEAKER) (test 0.88 K/ L 1.48-4.50 lbql=3343) MONOCYTES - ABS (DIFF) (BEAKER) (test saks=7989) 0.38 K/ L 0.00-1.30 EOSINOPHILS - ABS (DIFF) (BEAKER) (test 0.76 K/ L 0.00-0.50 yyyd=3902) BASOPHILS - ABS (DIFF) (BEAKER) (test bbsc=0009) 0.00 K/ L 0.00-0.20 METAMYELOCTYES - ABS (DIFF) (BEAKER) (test 0.25 K/ L 0.00-0.00 hrph=647) BANDS-ABS (DIFF) (BEAKER) (test nrzk=0965) 0.3 K/ L 0.0-0.8 MYELOCYTES-ABS (DIFF) (BEAKER) (test cjrn=6443) 0.50 K/ L 0.00-0.00 TOTAL COUNTED (BEAKER) (test tyjz=7369) 100 BANDS + SEGMENTED NEUTROPHILS (BEAKER) (test 9.83 rbdy=5307) MANUAL NRBC PER 100 CELLS (BEAKER) (test 2 /100 WBC 0-0 vnup=5224) WBC MORPHOLOGY (BEAKER) (test aevi=836) Normal PLT MORPHOLOGY (BEAKER) (test tdos=226) Normal POIKILOCYTES (BEAKER) (test iakn=675) 1+ few POLYCHROMATOPHILLIC RBCS(BEAKER) (test ifss=029) 1+ few SPHEROCYTES (BEAKER) (test jugh=579) 1+ few POCT-GLUCOSE [id number] 09:09:00 Test Item Value Reference Range Comments POC-GLUCOSE METER (BEAKER) 147 mg/dL 70-110 TESTED AT [address] (test anzg=9713) [facility] [address] POCT-GLUCOSE [id number] 06:49:00 Test Item Value Reference Range Comments POC-GLUCOSE METER (BEAKER) 83 mg/dL 70-110 TESTED AT [address] (test nrav=6215) [facility] [address] CALCIUM, [id number] 05:22:00 Test Item Value Reference Range Comments CALCIUM IONIZED (BEAKER) (test ahax=489) 1.14 mmol/L 1.12-1.27 PH, BLOOD (BEAKER) (test cals=9606) 7.37 [id number] 04:49:00 Test Item Value Reference Range Comments PHOSPHORUS (BEAKER) (test cuah=241) 2.4 mg/dL 2.3-4.7 [id number] 04:49:00 Test Item Value Reference Range Comments MAGNESIUM (BEAKER) (test mtvw=823) 1.9 mg/dL 1.6-2.6 BASIC METABOLIC [id number] 04:49:00 Test Item Value Reference Range Comments SODIUM (BEAKER) (test 141 meq/L 136-145 yvrl=028) POTASSIUM (BEAKER) (test 4.1 meq/L 3.5-5.1 odir=416) CHLORIDE (BEAKER) (test 110 meq/L 98-107 ufxo=562) CO2 (BEAKER) (test 26 meq/L 22-29 xtqb=495) BLOOD UREA NITROGEN 24 mg/dL 7-21 (BEAKER) (test dbbw=223) CREATININE (BEAKER) (test 0.66 mg/dL 0.57-1.25 dcct=413) GLUCOSE RANDOM (BEAKER) 113 mg/dL 70-105 (test zelh=571) CALCIUM (BEAKER) (test 8.5 mg/dL 8.4-10.2 qerp=838) EGFR (BEAKER) (test 124 mL/min/1.73 sq m ESTIMATED GFR IS NOT aodw=0344) ACCURATE CREATININE CLEARANCE IN PREDICTING GLOMERULAR FILTRATION RATE. ESTIMATED GFR IS NOT APPLICABLE FOR DIALYSIS PATIENTS. POCT-GLUCOSE [id number] 00:12:00 Test Item Value Reference Range Comments POC-GLUCOSE METER (BEAKER) 182 mg/dL 70-110 TESTED AT [address] (test iimq=7492) [place] [id number] POCT-GLUCOSE [id number] 20:53:00 Test Item Value Reference Range Comments POC-GLUCOSE METER (BEAKER) 203 mg/dL 70-110 TESTED AT [address] (test wjoy=4818) [place] [id number] POCT-GLUCOSE [id number] 18:25:00 Test Item Value Reference Range Comments POC-GLUCOSE METER (BEAKER) 216 mg/dL 70-110 TESTED AT [address] (test onus=7074) [facility] [address] BLOOD [id number] 17:00:00 Test Item Value Reference Range Comments CULTURE (BEAKER) (test pouf=6236) No growth in 5 days BLOOD [id number] 17:00:00 Test Item Value Reference Range Comments CULTURE (BEAKER) (test voak=5798) No growth in 5 days POCT-GLUCOSE [id number] 12:38:00 Test Item Value Reference Range Comments POC-GLUCOSE METER (BEAKER) 197 mg/dL 70-110 TESTED AT [address] (test vqnt=8973) [place] [id number] RAD, ABDOMEN/KUB, 1 VIEW [id number] 12:28:00Reason for exam:->dobhoff tube placementFINAL REPORT INDICATION: Feeding tube placement. 1 view of the abdomen. COMPARISON: No prior studies available for comparison IMPRESSION: The feeding tube terminates in the distal stomach at the gastroduodenal junction. The bowel gas pattern is nonspecific. Signed: Neil Tinsley MDReport Verified Date/Time: 02/24/2017 12:28:45 Reading Location: [facility] B1 C013X Ortho Consult ReadingRoom CBC W/PLT COUNT & AUTO [id number] 12: 04:00 Test Item Value Reference Range Comments WHITE BLOOD CELL COUNT (BEAKER) (test owgq=441) 11.5 K/ L 3.5-10.5 RED BLOOD CELL COUNT (BEAKER) (test lzjt=144) 2.80 M/ L 4.63-6.08 HEMOGLOBIN (BEAKER) (test kavl=345) 7.8 GM/DL 13.7-17.5 HEMATOCRIT (BEAKER) (test uyoi=465) 26.3 % 40.1-51.0 MEAN CORPUSCULAR VOLUME (BEAKER) (test lgtn=832) 93.9 fL 79.0-92.2 MEAN CORPUSCULAR HEMOGLOBIN (BEAKER) (test 27.9 pg 25.7-32.2 zagl=666) MEAN CORPUSCULAR HEMOGLOBIN CONC (BEAKER) (test 29.7 GM/DL 32.3-36.5 wbuq=291) RED CELL DISTRIBUTION WIDTH (BEAKER) (test 15.5 % 11.6-14.4 vtlq=376) PLATELET COUNT (BEAKER) (test egub=782) 407 K/CU MM 150-450 MEAN PLATELET VOLUME (BEAKER) (test wegc=094) 10.6 fL 9.4-12.4 NUCLEATED RED BLOOD CELLS (BEAKER) (test 3 /100 WBC 0-0 uxnc=087) IMMATURE GRANULOCYTES-RELATIVE PERCENT (BEAKER) 12 % 0-1 (test fcic=2502) (MANUAL DIFFERENTIAL)2017-02-24 12:04:00 Test Item Value Reference Range Comments NEUTROPHILS - REL (DIFF) (BEAKER) (test 63 % tohv=8047) LYMPHOCYTES - REL (DIFF) (BEAKER) (test 12 % fymw=2351) MONOCYTES - REL (DIFF) (BEAKER) (test neqr=8590) 8 % EOSINOPHILS - REL (DIFF) (BEAKER) (test 2 % sosn=5622) BASOPHILS - REL (DIFF) (BEAKER) (test rgve=2945) 2 % METAMYELOCYTES-REL (DIFF) (BEAKER) (test 3 % 0-0 kthx=516) BANDS - REL (DIFF) (BEAKER) (test tsda=5110) 10 % 0-10 NEUTROPHILS - ABS (DIFF) (BEAKER) (test 7.25 K/ L 1.80-8.00 mhrv=9326) LYMPHOCYTES - ABS (DIFF) (BEAKER) (test 1.38 K/ L 1.48-4.50 wihp=1423) MONOCYTES - ABS (DIFF) (BEAKER) (test maek=4660) 0.92 K/ L 0.00-1.30 EOSINOPHILS - ABS (DIFF) (BEAKER) (test 0.23 K/ L 0.00-0.50 yqta=2810) BASOPHILS - ABS (DIFF) (BEAKER) (test amtc=0946) 0.23 K/ L 0.00-0.20 METAMYELOCTYES - ABS (DIFF) (BEAKER) (test 0.35 K/ L 0.00-0.00 mrar=980) BANDS-ABS (DIFF) (BEAKER) (test iqje=9230) 1.2 K/ L 0.0-0.8 TOTAL COUNTED (BEAKER) (test uxtu=5491) 100 BANDS + SEGMENTED NEUTROPHILS (BEAKER) (test 8.40 xjaj=2973) MANUAL NRBC PER 100 CELLS (BEAKER) (test 1 /100 WBC 0-0 rmgt=8274) WBC MORPHOLOGY (BEAKER) (test doct=829) Normal CLUMPED PLATELETS (BEAKER) (test cgvg=580) Present HYPOCHROMIA (BEAKER) (test zyxo=956) 1+ few SPHEROCYTES (BEAKER) (test cuze=484) 1+ few POCT-GLUCOSE [id number] 06:03:00 Test Item Value Reference Range Comments POC-GLUCOSE METER (BEAKER) 175 mg/dL 70-110 TESTED AT [facility] [address] [facility] (test ajpe=8042) [facility] [address] [id number] 04:38:00 Test Item Value Reference Range Comments PHOSPHORUS (BEAKER) (test qujr=400) 2.5 mg/dL 2.3-4.7 [id number] 04:38:00 Test Item Value Reference Range Comments MAGNESIUM (BEAKER) (test lole=423) 1.9 mg/dL 1.6-2.6 BASIC METABOLIC [id number] 04:38:00 Test Item Value Reference Range Comments SODIUM (BEAKER) (test 142 meq/L 136-145 rqcd=856) POTASSIUM (BEAKER) (test 4.5 meq/L 3.5-5.1 ddna=236) CHLORIDE (BEAKER) (test 111 meq/L 98-107 lsnk=768) CO2 (BEAKER) (test 24 meq/L 22-29 szod=805) BLOOD UREA NITROGEN 29 mg/dL 7-21 (BEAKER) (test gotp=637) CREATININE (BEAKER) (test 0.73 mg/dL 0.57-1.25 zuki=994) GLUCOSE RANDOM (BEAKER) 222 mg/dL 70-105 (test qece=755) CALCIUM (BEAKER) (test 8.2 mg/dL 8.4-10.2 erpj=733) EGFR (BEAKER) (test 110 mL/min/1.73 sq m ESTIMATED GFR IS NOT nmvj=9432) ACCURATE CREATININE CLEARANCE IN PREDICTING GLOMERULAR FILTRATION RATE. ESTIMATED GFR IS NOT APPLICABLE FOR DIALYSIS PATIENTS. CALCIUM, [id number] 03:11:00 Test Item Value Reference Range Comments CALCIUM IONIZED (BEAKER) (test vicu=398) 1.05 mmol/L 1.12-1.27 PH, BLOOD (BEAKER) (test qbkl=5814) 7.38 POCT-GLUCOSE [id number] 01:05:00 Test Item Value Reference Range Comments POC-GLUCOSE METER (BEAKER) 231 mg/dL 70-110 TESTED AT [address] (test ebpp=6158) [facility] [address] POCT-GLUCOSE [id number] 18:18:00 Test Item Value Reference Range Comments POC-GLUCOSE METER (BEAKER) 226 mg/dL 70-110 TESTED AT [address] (test uelx=6237) [facility] [address] CBC W/PLT COUNT & AUTO [id number] 14:44:00 Test Item Value Reference Range Comments WHITE BLOOD CELL COUNT (BEAKER) (test vfct=032) 13.3 K/ L 3.5-10.5 RED BLOOD CELL COUNT (BEAKER) (test ytky=566) 2.87 M/ L 4.63-6.08 HEMOGLOBIN (BEAKER) (test msbj=526) 8.0 GM/DL 13.7-17.5 HEMATOCRIT (BEAKER) (test xcnd=769) 27.4 % 40.1-51.0 MEAN CORPUSCULAR VOLUME (BEAKER) (test nmon=429) 95.5 fL 79.0-92.2 MEAN CORPUSCULAR HEMOGLOBIN (BEAKER) (test 27.9 pg 25.7-32.2 bhgv=759) MEAN CORPUSCULAR HEMOGLOBIN CONC (BEAKER) (test 29.2 GM/DL 32.3-36.5 dscf=658) RED CELL DISTRIBUTION WIDTH (BEAKER) (test 15.2 % 11.6-14.4 acii=053) PLATELET COUNT (BEAKER) (test aclq=107) 441 K/CU MM 150-450 MEAN PLATELET VOLUME (BEAKER) (test mxyp=388) 10.5 fL 9.4-12.4 NUCLEATED RED BLOOD CELLS (BEAKER) (test 3 /100 WBC 0-0 bzvi=440) NEUTROPHILS RELATIVE PERCENT (BEAKER) (test 69 % hhfn=235) LYMPHOCYTES RELATIVE PERCENT (BEAKER) (test 11 % wkux=374) MONOCYTES RELATIVE PERCENT (BEAKER) (test 8 % xuho=014) EOSINOPHILS RELATIVE PERCENT (BEAKER) (test 3 % hoto=225) BASOPHILS RELATIVE PERCENT (BEAKER) (test 0 % wvsv=182) NEUTROPHILS ABSOLUTE COUNT (BEAKER) (test 9.12 K/ L 1.78-5.38 efxa=089) LYMPHOCYTES ABSOLUTE COUNT (BEAKER) (test 1.48 K/ L 1.32-3.57 seex=091) MONOCYTES ABSOLUTE COUNT (BEAKER) (test 1.03 K/ L 0.30-0.82 oxbq=710) EOSINOPHILS ABSOLUTE COUNT (BEAKER) (test 0.36 K/ L 0.04-0.54 llxj=771) BASOPHILS ABSOLUTE COUNT (BEAKER) (test 0.03 K/ L 0.01-0.08 zuyh=692) IMMATURE GRANULOCYTES-RELATIVE PERCENT (BEAKER) 10 % 0-1 (test vrdi=3228) (MANUAL DIFFERENTIAL)2017-02-23 14:44:00 Test Item Value Reference Range Comments NEUTROPHILS - REL (DIFF) (BEAKER) (test 62 % blzg=7571) LYMPHOCYTES - REL (DIFF) (BEAKER) (test 8 % bcbm=9581) MONOCYTES - REL (DIFF) (BEAKER) (test bdmn=2642) 8 % EOSINOPHILS - REL (DIFF) (BEAKER) (test 6 % roxi=2519) METAMYELOCYTES-REL (DIFF) (BEAKER) (test 4 % 0-0 ovvl=663) BANDS - REL (DIFF) (BEAKER) (test ukhq=6745) 12 % 0-10 NEUTROPHILS - ABS (DIFF) (BEAKER) (test 8.25 K/ L 1.80-8.00 xiji=7201) LYMPHOCYTES - ABS (DIFF) (BEAKER) (test 1.06 K/ L 1.48-4.50 iyni=6369) MONOCYTES - ABS (DIFF) (BEAKER) (test tndd=7270) 1.06 K/ L 0.00-1.30 EOSINOPHILS - ABS (DIFF) (BEAKER) (test 0.80 K/ L 0.00-0.50 yjqi=6646) METAMYELOCTYES - ABS (DIFF) (BEAKER) (test 0.53 K/ L 0.00-0.00 elqa=263) BANDS-ABS (DIFF) (BEAKER) (test woqw=9490) 1.6 K/ L 0.0-0.8 TOTAL COUNTED (BEAKER) (test cvuh=7323) 100 BANDS + SEGMENTED NEUTROPHILS (BEAKER) (test 9.84 bnxi=5026) MANUAL NRBC PER 100 CELLS (BEAKER) (test 2 /100 WBC 0-0 enwz=3061) WBC MORPHOLOGY (BEAKER) (test ylmx=925) Normal LARGE PLT(BEAKER) (test adpv=8034) Present ANISOCYTOSIS (BEAKER) (test zwlf=628) 1+ few HYPOCHROMIA (BEAKER) (test ryns=357) 2+ moderate POIKILOCYTES (BEAKER) (test mjix=707) 1+ few POLYCHROMATOPHILLIC RBCS(BEAKER) (test iwoh=955) 1+ few POCT-GLUCOSE [id number] 13:32:00 Test Item Value Reference Range Comments POC-GLUCOSE METER (BEAKER) 255 mg/dL 70-110 TESTED AT [facility] [address] [facility] (test mcnv=0225) [facility] [address] POCT-GLUCOSE [id number] 06:12:00 Test Item Value Reference Range Comments POC-GLUCOSE METER (BEAKER) 110 mg/dL 70-110 TESTED AT [place] [id number] [facility] (test rifv=0327) [facility] [address] [id number] 06:02:00 Test Item Value Reference Range Comments PHOSPHORUS (BEAKER) (test iesy=991) 2.8 mg/dL 2.3-4.7 [id number] 06:02:00 Test Item Value Reference Range Comments MAGNESIUM (BEAKER) (test cbnr=681) 2.0 mg/dL 1.6-2.6 BASIC METABOLIC [id number] 06:02:00 Test Item Value Reference Range Comments SODIUM (BEAKER) (test 144 meq/L 136-145 xkyb=787) POTASSIUM (BEAKER) (test 4.3 meq/L 3.5-5.1 ghgn=942) CHLORIDE (BEAKER) (test 112 meq/L 98-107 tvhx=243) CO2 (BEAKER) (test 24 meq/L 22-29 uwmd=608) BLOOD UREA NITROGEN 34 mg/dL 7-21 (BEAKER) (test olcl=701) CREATININE (BEAKER) (test 0.74 mg/dL 0.57-1.25 jejl=585) GLUCOSE RANDOM (BEAKER) 114 mg/dL 70-105 (test cbum=550) CALCIUM (BEAKER) (test 8.5 mg/dL 8.4-10.2 gydy=548) EGFR (BEAKER) (test 109 mL/min/1.73 sq m ESTIMATED GFR IS NOT pixy=9012) ACCURATE CREATININE CLEARANCE IN PREDICTING GLOMERULAR FILTRATION RATE. ESTIMATED GFR IS NOT APPLICABLE FOR DIALYSIS PATIENTS. CALCIUM, [id number] 05:00:00 Test Item Value Reference Range Comments CALCIUM IONIZED (BEAKER) (test ltcc=689) 1.11 mmol/L 1.12-1.27 PH, BLOOD (BEAKER) (test mqnk=7589) 7.39 POCT-GLUCOSE [id number] 00:28:00 Test Item Value Reference Range Comments POC-GLUCOSE METER (BEAKER) 140 mg/dL 70-110 TESTED AT [address] (test ckpo=1470) [place] [id number] POCT-GLUCOSE [id number] 22:51:00 Test Item Value Reference Range Comments POC-GLUCOSE METER (BEAKER) 195 mg/dL 70-110 TESTED AT [address] (test neqr=8020) [place] [id number] POCT-GLUCOSE [id number] 18:32:00 Test Item Value Reference Range Comments POC-GLUCOSE METER (BEAKER) 157 mg/dL 70-110 TESTED AT [address] (test fzqy=7075) [place] [address] POCT-GLUCOSE [id number] 11:47:00 Test Item Value Reference Range Comments POC-GLUCOSE METER (BEAKER) 174 mg/dL 70-110 TESTED AT [address] (test sumw=5524) [place] [address] [id number] 10:16:00 Test Item Value Reference Range Comments SODIUM (BEAKER) (test speu=869) 149 meq/L 136-145 TROPONIN [id number] 07:56:00 Test Item Value Reference Range Comments TROPONIN I (BEAKER) (test vixq=219) < ng/mL 0.00-0.03 Troponin I (TnI) levels must be interpreted [...] failure, acidosis, acute neurological disease, and persistent tachyarrhythmia.CBC W/PLT COUNT & AUTO [id number] 06:46:00 Test Item Value Reference Range Comments WHITE BLOOD CELL COUNT (BEAKER) (test xqxf=922) 12.8 K/ L 3.5-10.5 RED BLOOD CELL COUNT (BEAKER) (test unfx=127) 2.84 M/ L 4.63-6.08 HEMOGLOBIN (BEAKER) (test nrzd=742) 7.9 GM/DL 13.7-17.5 HEMATOCRIT (BEAKER) (test komy=505) 26.9 % 40.1-51.0 MEAN CORPUSCULAR VOLUME (BEAKER) (test hdaf=718) 94.7 fL 79.0-92.2 MEAN CORPUSCULAR HEMOGLOBIN (BEAKER) (test 27.8 pg 25.7-32.2 mdlg=196) MEAN CORPUSCULAR HEMOGLOBIN CONC (BEAKER) (test 29.4 GM/DL 32.3-36.5 xnrj=954) RED CELL DISTRIBUTION WIDTH (BEAKER) (test 15.0 % 11.6-14.4 vknd=253) PLATELET COUNT (BEAKER) (test hxcj=356) 447 K/CU MM 150-450 MEAN PLATELET VOLUME (BEAKER) (test aqyv=054) 10.3 fL 9.4-12.4 NUCLEATED RED BLOOD CELLS (BEAKER) (test 3 /100 WBC 0-0 lefe=639) IMMATURE GRANULOCYTES-RELATIVE PERCENT (BEAKER) 9 % 0-1 (test ptmg=2535) (MANUAL DIFFERENTIAL)2017-02-22 06:46:00 Test Item Value Reference Range Comments NEUTROPHILS - REL (DIFF) (BEAKER) (test 70 % jrvo=8374) LYMPHOCYTES - REL (DIFF) (BEAKER) (test 12 % oesk=0590) MONOCYTES - REL (DIFF) (BEAKER) (test yhrc=2151) 5 % EOSINOPHILS - REL (DIFF) (BEAKER) (test 4 % tufu=3111) BASOPHILS - REL (DIFF) (BEAKER) (test xdeu=5579) 0 % METAMYELOCYTES-REL (DIFF) (BEAKER) (test 2 % 0-0 apnx=822) MYELOCYTES-REL (DIFF) (BEAKER) (test iymf=7400) 4 % 0-0 BANDS - REL (DIFF) (BEAKER) (test jost=7582) 3 % 0-10 NEUTROPHILS - ABS (DIFF) (BEAKER) (test 8.96 K/ L 1.80-8.00 lwju=6976) LYMPHOCYTES - ABS (DIFF) (BEAKER) (test 1.54 K/ L 1.48-4.50 wxgf=9770) MONOCYTES - ABS (DIFF) (BEAKER) (test gxti=6782) 0.64 K/ L 0.00-1.30 EOSINOPHILS - ABS (DIFF) (BEAKER) (test 0.51 K/ L 0.00-0.50 yjks=9478) BASOPHILS - ABS (DIFF) (BEAKER) (test sfgm=0138) 0.00 K/ L 0.00-0.20 METAMYELOCTYES - ABS (DIFF) (BEAKER) (test 0.26 K/ L 0.00-0.00 rrds=410) BANDS-ABS (DIFF) (BEAKER) (test olrm=6888) 0.4 K/ L 0.0-0.8 MYELOCYTES-ABS (DIFF) (BEAKER) (test usjc=5003) 0.51 K/ L 0.00-0.00 TOTAL COUNTED (BEAKER) (test cspk=7865) 100 BANDS + SEGMENTED NEUTROPHILS (BEAKER) (test 9.34 ugbk=1684) MANUAL NRBC PER 100 CELLS (BEAKER) (test 6 /100 WBC 0-0 varc=5307) WBC MORPHOLOGY (BEAKER) (test ufcb=478) Normal CLUMPED PLATELETS (BEAKER) (test njsr=729) Present POLYCHROMATOPHILLIC RBCS(BEAKER) (test quwc=122) 2+ moderate POCT-GLUCOSE [id number] 05:22:00 Test Item Value Reference Range Comments POC-GLUCOSE METER (AKER) 190 mg/dL 70-110 TESTED AT [address] (test vdku=6427) [place] [id number] CALCIUM, [id number] 05:14:00 Test Item Value Reference Range Comments CALCIUM IONIZED (BEAKER) (test omly=669) 1.09 mmol/L 1.12-1.27 PH, BLOOD (BEAKER) (test hqqg=3748) 7.41 POCT-GLUCOSE [id number] 05:08:00 Test Item Value Reference Range Comments POC-GLUCOSE METER (AKER) 226 mg/dL 70-110 TESTED AT [address] (test ymru=1581) [place] [address] [id number] 04:18:00 Test Item Value Reference Range Comments PHOSPHORUS (BEAKER) (test bqmq=078) 3.0 mg/dL 2.3-4.7 [id number] 04:18:00 Test Item Value Reference Range Comments MAGNESIUM (BEAKER) (test gths=917) 2.2 mg/dL 1.6-2.6 BASIC METABOLIC [id number] 04:18:00 Test Item Value Reference Range Comments SODIUM (BEAKER) (test 148 meq/L 136-145 oazc=109) POTASSIUM (BEAKER) (test 4.2 meq/L 3.5-5.1 fxkz=445) CHLORIDE (BEAKER) (test 116 meq/L 98-107 udbo=479) CO2 (BEAKER) (test 24 meq/L 22-29 cqah=087) BLOOD UREA NITROGEN 42 mg/dL 7-21 (BEAKER) (test ymip=421) CREATININE (BEAKER) (test 0.86 mg/dL 0.57-1.25 mlke=937) GLUCOSE RANDOM (BEAKER) 180 mg/dL 70-105 (test gmwa=923) CALCIUM (BEAKER) (test 8.4 mg/dL 8.4-10.2 eeih=858) EGFR (BEAKER) (test 91 mL/min/1.73 sq m ESTIMATED GFR IS NOT qufk=9563) ACCURATE CREATININE CLEARANCE IN PREDICTING GLOMERULAR FILTRATION RATE. ESTIMATED GFR IS NOT APPLICABLE FOR DIALYSIS PATIENTS. BLOOD GAS, [id number] 22:05:00 Test Item Value Reference Range Comments PH ARTERIAL (BEAKER) (test hqia=817) 7.45 7.35-7.45 PCO2 ARTERIAL (BEAKER) (test hrcf=726) 35 mmHg 35-45 PO2 ARTERIAL (BEAKER) (test dbdm=019) 114 mmHg 80-90 O2 SATURATION ARTERIAL (BEAKER) (test himx=582) 98.4 % 96.0-97.0 HCO3 ARTERIAL (BEAKER) (test xirs=407) 24 mmol/L 21-29 BASE EXCESS ARTERIAL (BEAKER) (test elsk=731) 0.1 mmol/L -2.0-3.0 PATIENT TEMPERATURE (BEAKER) (test mzyi=8305) 37.0 C FIO2 (BEAKER) (test ckcc=9243) 40.0 % POCT-GLUCOSE [id number] 21:58:00 Test Item Value Reference Range Comments POC-GLUCOSE METER (BEAKER) 195 mg/dL 70-110 TESTED AT [facility] [address] [facility] (test pqlb=3793) [facility] [address] [id number] 19:48:00 Test Item Value Reference Range Comments SODIUM (BEAKER) (test pxyq=706) 148 meq/L 136-145 POCT-GLUCOSE [id number] 17:38:00 Test Item Value Reference Range Comments POC-GLUCOSE METER (BEAKER) 241 mg/dL 70-110 TESTED AT [facility] [address] (test lyaf=5034) [facility] [address] CBC W/PLT COUNT & AUTO [id number] 14:47:00 Test Item Value Reference Range Comments WHITE BLOOD CELL COUNT (BEAKER) (test cpiu=646) 13.4 K/ L 3.5-10.5 RED BLOOD CELL COUNT (BEAKER) (test qutz=024) 2.92 M/ L 4.63-6.08 HEMOGLOBIN (BEAKER) (test lkdh=711) 8.2 GM/DL 13.7-17.5 HEMATOCRIT (BEAKER) (test nipa=253) 27.8 % 40.1-51.0 MEAN CORPUSCULAR VOLUME (BEAKER) (test vnun=233) 95.2 fL 79.0-92.2 MEAN CORPUSCULAR HEMOGLOBIN (BEAKER) (test 28.1 pg 25.7-32.2 iapr=007) MEAN CORPUSCULAR HEMOGLOBIN CONC (BEAKER) (test 29.5 GM/DL 32.3-36.5 rxfy=228) RED CELL DISTRIBUTION WIDTH (BEAKER) (test 15.0 % 11.6-14.4 pomz=948) PLATELET COUNT (BEAKER) (test aqtb=012) 424 K/CU MM 150-450 MEAN PLATELET VOLUME (BEAKER) (test qrnm=236) 10.3 fL 9.4-12.4 NUCLEATED RED BLOOD CELLS (BEAKER) (test 3 /100 WBC 0-0 btqa=524) IMMATURE GRANULOCYTES-RELATIVE PERCENT (BEAKER) 7 % 0-1 (test gkfr=9825) (MANUAL DIFFERENTIAL)[id number] 14:47:00 Test Item Value Reference Range Comments NEUTROPHILS - REL (DIFF) (BEAKER) (test 71 % kseh=3501) LYMPHOCYTES - REL (DIFF) (BEAKER) (test 11 % sgpy=6511) MONOCYTES - REL (DIFF) (BEAKER) (test uumq=8011) 4 % EOSINOPHILS - REL (DIFF) (BEAKER) (test 3 % layj=4001) BASOPHILS - REL (DIFF) (BEAKER) (test wemx=8173) 0 % METAMYELOCYTES-REL (DIFF) (BEAKER) (test 1 % 0-0 upfw=172) MYELOCYTES-REL (DIFF) (BEAKER) (test vwkk=8698) 1 % 0-0 PROMYELOCYTES-REL (DIFF) (BEAKER) (test exwa=515) 1 % 0-0 BANDS - REL (DIFF) (BEAKER) (test dnwq=3625) 8 % 0-10 NEUTROPHILS - ABS (DIFF) (BEAKER) (test 9.51 K/ L 1.80-8.00 vtgx=6081) LYMPHOCYTES - ABS (DIFF) (BEAKER) (test 1.47 K/ L 1.48-4.50 bgki=7666) MONOCYTES - ABS (DIFF) (BEAKER) (test arwo=5278) 0.54 K/ L 0.00-1.30 EOSINOPHILS - ABS (DIFF) (BEAKER) (test 0.40 K/ L 0.00-0.50 vkrb=6444) BASOPHILS - ABS (DIFF) (BEAKER) (test puza=9491) 0.00 K/ L 0.00-0.20 METAMYELOCTYES - ABS (DIFF) (BEAKER) (test 0.13 K/ L 0.00-0.00 ofyt=513) PROMYELOCYTES - ABS (DIFF) (BEAKER) (test 0.13 K/ L 0.00-0.00 mywa=751) BANDS-ABS (DIFF) (BEAKER) (test dypa=0390) 1.1 K/ L 0.0-0.8 MYELOCYTES-ABS (DIFF) (BEAKER) (test aqvv=0361) 0.13 K/ L 0.00-0.00 TOTAL COUNTED (BEAKER) (test ymcm=5963) 100 BANDS + SEGMENTED NEUTROPHILS (BEAKER) (test 10.59 cavu=6295) MANUAL NRBC PER 100 CELLS (BEAKER) (test 3 /100 WBC 0-0 vqjw=4215) WBC MORPHOLOGY (BEAKER) (test mqzu=557) Normal RBC MORPHOLOGY (BEAKER) (test fnts=386) Normal LARGE PLT(BEAKER) (test fcbc=4759) Present DIGOXIN [id number] 12:47:00 Test Item Value Reference Range Comments DIGOXIN LEVEL (BEAKER) (test hesc=699) 0.9 ng/mL 0.8-2.0 POCT-GLUCOSE [id number] 12:25:00 Test Item Value Reference Range Comments POC-GLUCOSE METER (BEAKER) 89 mg/dL 70-110 TESTED AT [address] (test folh=8161) [place] [address] [id number] 11:25:00 Test Item Value Reference Range Comments SODIUM (BEAKER) (test vcti=376) 151 meq/L 136-145 POCT-GLUCOSE [id number] 07:10:00 Test Item Value Reference Range Comments POC-GLUCOSE METER (BEAKER) 126 mg/dL 70-110 TESTED AT [address] (test ffdy=3783) [place] [id number] 05:00:00 Test Item Value Reference Range Comments PHOSPHORUS (BEAKER) (test ixuc=236) 3.3 mg/dL 2.3-4.7 [id number] 05:00:00 Test Item Value Reference Range Comments MAGNESIUM (BEAKER) (test stty=515) 2.1 mg/dL 1.6-2.6 BASIC METABOLIC [id number] 05:00:00 Test Item Value Reference Range Comments SODIUM (BEAKER) (test 149 meq/L 136-145 irer=759) POTASSIUM (BEAKER) (test 4.1 meq/L 3.5-5.1 tmze=793) CHLORIDE (BEAKER) (test 117 meq/L 98-107 howl=719) CO2 (BEAKER) (test 23 meq/L 22-29 pfey=026) BLOOD UREA NITROGEN 41 mg/dL 7-21 (BEAKER) (test fjvu=208) CREATININE (BEAKER) (test 0.84 mg/dL 0.57-1.25 nfdj=466) GLUCOSE RANDOM (BEAKER) 53 mg/dL 70-105 (test aldt=212) CALCIUM (BEAKER) (test 8.2 mg/dL 8.4-10.2 tskg=926) EGFR (BEAKER) (test 94 mL/min/1.73 sq m ESTIMATED GFR IS NOT bbir=6208) ACCURATE CREATININE CLEARANCE IN PREDICTING GLOMERULAR FILTRATION RATE. ESTIMATED GFR IS NOT APPLICABLE FOR DIALYSIS PATIENTS. CALCIUM, [id number] 04:59:00 Test Item Value Reference Range Comments CALCIUM IONIZED (BEAKER) (test dnia=430) 1.11 mmol/L 1.12-1.27 PH, BLOOD (BEAKER) (test dghr=5529) 7.42 POCT-GLUCOSE [id number] 02:12:00 Test Item Value Reference Range Comments POC-GLUCOSE METER (BEAKER) 105 mg/dL 70-110 TESTED AT [address] (test jmyk=3788) [place] [address] POCT-GLUCOSE [id number] 21:57:00 Test Item Value Reference Range Comments POC-GLUCOSE METER (BEAKER) 252 mg/dL 70-110 TESTED AT [address] (test fjbk=6273) [place] [address] POCT-GLUCOSE [id number] 18:46:00 Test Item Value Reference Range Comments POC-GLUCOSE METER (BEAKER) 251 mg/dL 70-110 TESTED AT [address] (test ggfa=0086) [place] [address] CBC W/PLT COUNT & AUTO [id number] 13:32:00 Test Item Value Reference Range Comments WHITE BLOOD CELL COUNT (BEAKER) (test jvms=981) 11.1 K/ L 3.5-10.5 RED BLOOD CELL COUNT (BEAKER) (test lott=826) 2.97 M/ L 4.63-6.08 HEMOGLOBIN (BEAKER) (test awge=832) 8.3 GM/DL 13.7-17.5 HEMATOCRIT (BEAKER) (test odju=228) 28.0 % 40.1-51.0 MEAN CORPUSCULAR VOLUME (BEAKER) (test wews=336) 94.3 fL 79.0-92.2 MEAN CORPUSCULAR HEMOGLOBIN (BEAKER) (test 27.9 pg 25.7-32.2 docp=823) MEAN CORPUSCULAR HEMOGLOBIN CONC (BEAKER) (test 29.6 GM/DL 32.3-36.5 vdfd=016) RED CELL DISTRIBUTION WIDTH (BEAKER) (test 14.7 % 11.6-14.4 omrz=025) PLATELET COUNT (BEAKER) (test egrf=740) 390 K/CU MM 150-450 MEAN PLATELET VOLUME (BEAKER) (test deuk=644) 9.9 fL 9.4-12.4 NUCLEATED RED BLOOD CELLS (BEAKER) (test 2 /100 WBC 0-0 fhox=739) IMMATURE GRANULOCYTES-RELATIVE PERCENT (BEAKER) 6 % 0-1 (test idjf=0284) (MANUAL DIFFERENTIAL)2017-02-20 13:32:00 Test Item Value Reference Range Comments NEUTROPHILS - REL (DIFF) (BEAKER) (test appv=3501) 61 % LYMPHOCYTES - REL (DIFF) (BEAKER) (test upde=1730) 1 % MONOCYTES - REL (DIFF) (BEAKER) (test ladr=7339) 14 % EOSINOPHILS - REL (DIFF) (BEAKER) (test nfrv=9339) 1 % METAMYELOCYTES-REL (DIFF) (BEAKER) (test bhnu=214) 1 % 0-0 MYELOCYTES-REL (DIFF) (BEAKER) (test dgxg=3686) 1 % 0-0 BANDS - REL (DIFF) (BEAKER) (test wkfn=5132) 21 % 0-10 NEUTROPHILS - ABS (DIFF) (BEAKER) (test vwun=1497) 6.77 K/ L 1.80-8.00 LYMPHOCYTES - ABS (DIFF) (BEAKER) (test xpzr=9261) 0.11 K/ L 1.48-4.50 MONOCYTES - ABS (DIFF) (BEAKER) (test gjoa=3282) 1.55 K/ L 0.00-1.30 EOSINOPHILS - ABS (DIFF) (BEAKER) (test xymv=5550) 0.11 K/ L 0.00-0.50 METAMYELOCTYES - ABS (DIFF) (BEAKER) (test 0.11 K/ L 0.00-0.00 pvdx=395) BANDS-ABS (DIFF) (BEAKER) (test wmtf=6172) 2.3 K/ L 0.0-0.8 MYELOCYTES-ABS (DIFF) (BEAKER) (test cywo=3327) 0.11 K/ L 0.00-0.00 TOTAL COUNTED (BEAKER) (test awpo=6481) 100 BANDS + SEGMENTED NEUTROPHILS (BEAKER) (test 9.10 awnd=1538) WBC MORPHOLOGY (BEAKER) (test dccq=974) Normal PLT MORPHOLOGY (BEAKER) (test foez=831) Normal RBC MORPHOLOGY (BEAKER) (test hyuv=824) Normal POCT-GLUCOSE [id number] 12:37:00 Test Item Value Reference Range Comments POC-GLUCOSE METER (BEAKER) 170 mg/dL 70-110 TESTED AT [facility] [address] (test xkap=9056) [facility] [address] CBC W/PLT COUNT & AUTO [id number] 11:11:00 Test Item Value Reference Range Comments WHITE BLOOD CELL COUNT (BEAKER) (test fipk=928) 11.1 K/ L 3.5-10.5 RED BLOOD CELL COUNT (BEAKER) (test bllw=728) 2.99 M/ L 4.63-6.08 HEMOGLOBIN (BEAKER) (test ptec=885) 8.4 GM/DL 13.7-17.5 HEMATOCRIT (BEAKER) (test xcml=861) 28.0 % 40.1-51.0 MEAN CORPUSCULAR VOLUME (BEAKER) (test pywy=467) 93.6 fL 79.0-92.2 MEAN CORPUSCULAR HEMOGLOBIN (BEAKER) (test 28.1 pg 25.7-32.2 ykdt=840) MEAN CORPUSCULAR HEMOGLOBIN CONC (BEAKER) (test 30.0 GM/DL 32.3-36.5 qsrc=875) RED CELL DISTRIBUTION WIDTH (BEAKER) (test 14.9 % 11.6-14.4 lens=941) PLATELET COUNT (BEAKER) (test axgw=925) 426 K/CU MM 150-450 MEAN PLATELET VOLUME (BEAKER) (test pdgn=667) 10.3 fL 9.4-12.4 NUCLEATED RED BLOOD CELLS (BEAKER) (test 2 /100 WBC 0-0 uwlp=785) IMMATURE GRANULOCYTES-RELATIVE PERCENT (BEAKER) 5 % 0-1 (test bqtp=9187) (MANUAL DIFFERENTIAL)2017-02-20 11:11:00 Test Item Value Reference Range Comments NEUTROPHILS - REL (DIFF) (BEAKER) (test 68 % ugev=0395) LYMPHOCYTES - REL (DIFF) (BEAKER) (test 11 % zrpj=4899) MONOCYTES - REL (DIFF) (BEAKER) (test xryg=7147) 7 % EOSINOPHILS - REL (DIFF) (BEAKER) (test 2 % cmin=1507) BASOPHILS - REL (DIFF) (BEAKER) (test pluz=1257) 0 % METAMYELOCYTES-REL (DIFF) (BEAKER) (test 1 % 0-0 aldh=479) MYELOCYTES-REL (DIFF) (BEAKER) (test qdoj=6401) 2 % 0-0 BANDS - REL (DIFF) (BEAKER) (test abpe=6389) 9 % 0-10 NEUTROPHILS - ABS (DIFF) (BEAKER) (test 7.55 K/ L 1.80-8.00 yuzb=2966) LYMPHOCYTES - ABS (DIFF) (BEAKER) (test 1.22 K/ L 1.48-4.50 jekx=1716) MONOCYTES - ABS (DIFF) (BEAKER) (test rpjl=1268) 0.78 K/ L 0.00-1.30 EOSINOPHILS - ABS (DIFF) (BEAKER) (test 0.22 K/ L 0.00-0.50 cdnl=6420) BASOPHILS - ABS (DIFF) (BEAKER) (test vkhx=1043) 0.00 K/ L 0.00-0.20 METAMYELOCTYES - ABS (DIFF) (BEAKER) (test 0.11 K/ L 0.00-0.00 agyb=783) BANDS-ABS (DIFF) (BEAKER) (test umhb=1924) 1.0 K/ L 0.0-0.8 MYELOCYTES-ABS (DIFF) (BEAKER) (test rarx=4621) 0.22 K/ L 0.00-0.00 TOTAL COUNTED (BEAKER) (test ycee=6043) 100 BANDS + SEGMENTED NEUTROPHILS (BEAKER) (test 8.55 jafq=6648) MANUAL NRBC PER 100 CELLS (BEAKER) (test 2 /100 WBC 0-0 eufz=2213) WBC MORPHOLOGY (BEAKER) (test pulk=757) Normal LARGE PLT(BEAKER) (test wyjk=2154) Present POIKILOCYTES (BEAKER) (test vflq=796) 1+ few POLYCHROMATOPHILLIC RBCS(BEAKER) (test yrpl=602) 3+ many [id number] 10:27:00 Test Item Value Reference Range Comments SODIUM (BEAKER) (test rvmx=694) 151 meq/L 136-145 POCT-GLUCOSE [id number] 09:49:00 Test Item Value Reference Range Comments POC-GLUCOSE METER (BEAKER) 128 mg/dL 70-110 TESTED AT [address] (test bnbb=4688) [facility] [address] [id number] 03:58:00 Test Item Value Reference Range Comments PHOSPHORUS (BEAKER) (test wubt=092) 3.1 mg/dL 2.3-4.7 [id number] 03:58:00 Test Item Value Reference Range Comments MAGNESIUM (BEAKER) (test dmmc=286) 2.1 mg/dL 1.6-2.6 BASIC METABOLIC [id number] 03:58:00 Test Item Value Reference Range Comments SODIUM (BEAKER) (test 150 meq/L 136-145 dczp=004) POTASSIUM (BEAKER) (test 4.2 meq/L 3.5-5.1 ckny=279) CHLORIDE (BEAKER) (test 117 meq/L 98-107 rbky=951) CO2 (BEAKER) (test 25 meq/L 22-29 eepl=119) BLOOD UREA NITROGEN 33 mg/dL 7-21 (BEAKER) (test wjxf=433) CREATININE (BEAKER) (test 0.83 mg/dL 0.57-1.25 dgud=920) GLUCOSE RANDOM (BEAKER) 129 mg/dL 70-105 (test gfdi=746) CALCIUM (BEAKER) (test 8.2 mg/dL 8.4-10.2 nbbs=106) EGFR (BEAKER) (test 95 mL/min/1.73 sq m ESTIMATED GFR IS NOT bpjk=6299) ACCURATE CREATININE CLEARANCE IN PREDICTING GLOMERULAR FILTRATION RATE. ESTIMATED GFR IS NOT APPLICABLE FOR DIALYSIS PATIENTS. CALCIUM, [id number] 03:47:00 Test Item Value Reference Range Comments CALCIUM IONIZED (BEAKER) (test wrfl=745) 1.10 mmol/L 1.12-1.27 PH, BLOOD (BEAKER) (test minq=1707) 7.41 POCT-GLUCOSE [id number] 22:16:00 Test Item Value Reference Range Comments POC-GLUCOSE METER (BEAKER) 172 mg/dL 70-110 TESTED AT [place] [id number] [facility] (test ulva=7469) [place] [id number] POCT-GLUCOSE [id number] 17:42:00 Test Item Value Reference Range Comments POC-GLUCOSE METER (BEAKER) 156 mg/dL 70-110 TESTED AT [address] (test msrk=0819) [place] [address] POCT-GLUCOSE [id number] 11:36:00 Test Item Value Reference Range Comments POC-GLUCOSE METER (BEAKER) 223 mg/dL 70-110 TESTED AT [address] (test akef=4034) [place] [address] [id number] 10:00:00 Test Item Value Reference Range Comments SODIUM (BEAKER) (test yzgb=916) 149 meq/L 136-145 POCT-GLUCOSE [id number] 07:54:00 Test Item Value Reference Range Comments POC-GLUCOSE METER (BEAKER) 190 mg/dL 70-110 TESTED AT [address] (test wzut=1571) [place] [address] CBC W/PLT COUNT & AUTO [id number] 06:29:00 Test Item Value Reference Range Comments WHITE BLOOD CELL COUNT (BEAKER) (test ggsj=226) 11.8 K/ L 3.5-10.5 RED BLOOD CELL COUNT (BEAKER) (test xayw=858) 3.07 M/ L 4.63-6.08 HEMOGLOBIN (BEAKER) (test jrld=293) 8.6 GM/DL 13.7-17.5 HEMATOCRIT (BEAKER) (test sggv=274) 28.8 % 40.1-51.0 MEAN CORPUSCULAR VOLUME (BEAKER) (test yslp=301) 93.8 fL 79.0-92.2 MEAN CORPUSCULAR HEMOGLOBIN (BEAKER) (test 28.0 pg 25.7-32.2 kdxk=687) MEAN CORPUSCULAR HEMOGLOBIN CONC (BEAKER) (test 29.9 GM/DL 32.3-36.5 qrng=413) RED CELL DISTRIBUTION WIDTH (BEAKER) (test 14.6 % 11.6-14.4 bnrc=996) PLATELET COUNT (BEAKER) (test dlfp=492) 434 K/CU MM 150-450 MEAN PLATELET VOLUME (BEAKER) (test teet=206) 9.7 fL 9.4-12.4 NUCLEATED RED BLOOD CELLS (BEAKER) (test 2 /100 WBC 0-0 lkvj=752) NEUTROPHILS RELATIVE PERCENT (BEAKER) (test 78 % inlu=257) LYMPHOCYTES RELATIVE PERCENT (BEAKER) (test 10 % guaj=104) MONOCYTES RELATIVE PERCENT (BEAKER) (test 7 % rjdb=680) EOSINOPHILS RELATIVE PERCENT (BEAKER) (test 2 % htii=527) BASOPHILS RELATIVE PERCENT (BEAKER) (test 0 % qdbl=918) NEUTROPHILS ABSOLUTE COUNT (BEAKER) (test 9.16 K/ L 1.78-5.38 gtak=603) LYMPHOCYTES ABSOLUTE COUNT (BEAKER) (test 1.17 K/ L 1.32-3.57 rrtd=301) MONOCYTES ABSOLUTE COUNT (BEAKER) (test 0.88 K/ L 0.30-0.82 aypz=411) EOSINOPHILS ABSOLUTE COUNT (BEAKER) (test 0.26 K/ L 0.04-0.54 lvoa=952) BASOPHILS ABSOLUTE COUNT (BEAKER) (test 0.04 K/ L 0.01-0.08 pvyh=702) IMMATURE GRANULOCYTES-RELATIVE PERCENT (BEAKER) 3 % 0-1 (test afxc=6111) [id number] 02:57:00 Test Item Value Reference Range Comments PHOSPHORUS (BEAKER) (test fqqa=394) 3.2 mg/dL 2.3-4.7 [id number] 02:57:00 Test Item Value Reference Range Comments MAGNESIUM (BEAKER) (test geom=424) 2.1 mg/dL 1.6-2.6 BASIC METABOLIC [id number] 02:57:00 Test Item Value Reference Range Comments SODIUM (BEAKER) (test 149 meq/L 136-145 ajes=479) POTASSIUM (BEAKER) (test 4.0 meq/L 3.5-5.1 uscn=576) CHLORIDE (BEAKER) (test 116 meq/L 98-107 slzh=592) CO2 (BEAKER) (test 26 meq/L 22-29 tusv=578) BLOOD UREA NITROGEN 37 mg/dL 7-21 (BEAKER) (test rifs=687) CREATININE (BEAKER) (test 0.95 mg/dL 0.57-1.25 mljb=915) GLUCOSE RANDOM (BEAKER) 139 mg/dL 70-105 (test isrs=518) CALCIUM (BEAKER) (test 8.5 mg/dL 8.4-10.2 brvu=244) EGFR (BEAKER) (test 81 mL/min/1.73 sq m ESTIMATED GFR IS NOT atqk=3217) ACCURATE CREATININE CLEARANCE IN PREDICTING GLOMERULAR FILTRATION RATE. ESTIMATED GFR IS NOT APPLICABLE FOR DIALYSIS PATIENTS. CALCIUM, [id number] 02:51:00 Test Item Value Reference Range Comments CALCIUM IONIZED (BEAKER) (test neuj=795) 1.13 mmol/L 1.12-1.27 PH, BLOOD (BEAKER) (test pioz=3421) 7.42 BLOOD [id number] 23:00:00 Test Item Value Reference Range Comments CULTURE (BEAKER) (test sknf=0362) No growth in 5 days POCT-GLUCOSE [id number] 21:49:00 Test Item Value Reference Range Comments POC-GLUCOSE METER (BEAKER) 224 mg/dL 70-110 TESTED AT [address] (test vckn=0007) [place] [id number] POCT-GLUCOSE [id number] 21:43:00 Test Item Value Reference Range Comments POC-GLUCOSE METER (BEAKER) 191 mg/dL 70-110 TESTED AT [address] (test inar=6781) [place] [address] POCT-GLUCOSE [id number] 18:14:00 Test Item Value Reference Range Comments POC-GLUCOSE METER (BEAKER) 274 mg/dL 70-110 TESTED AT [address] (test iixy=0519) [place] [address] [id number] 17:49:00 Test Item Value Reference Range Comments SODIUM (BEAKER) (test eylz=907) 152 meq/L 136-145 POCT-GLUCOSE [id number] 11:44:00 Test Item Value Reference Range Comments POC-GLUCOSE METER (BEAKER) 188 mg/dL 70-110 TESTED AT [address] (test abca=3454) [place] [address] POCT-GLUCOSE [id number] 07:36:00 Test Item Value Reference Range Comments POC-GLUCOSE METER (BEAKER) 202 mg/dL 70-110 TESTED AT [address] (test mwxv=1336) [facility] [address] RAD, CHEST, 1 VIEW, NON [id number] 07:32:00Reason for exam:->TRACHShould this be performed at the bedside?->YesFINAL REPORT HISTORY : TRACH. Comparison: 02/17/2017 Comment: Single portableview of the chest was obtained. The cardiac silhouette size is enlarged. There are low lung volumes. Support lines and tubes are unchanged. No pneumothorax is seen. There are suspected small bilateralpleural effusions with some adjacent airspace disease/consolidation. Signed: Zoe Alonso MDReport Verified Date/Time : 02/18/2017 07:32:28 Reading Location: [address] Transitional Reading Room CBC W/PLT COUNT & AUTO [id number] 03:52:00 Test Item Value Reference Range Comments WHITE BLOOD CELL COUNT (BEAKER) (test ihal=587) 11.5 K/ L 3.5-10.5 RED BLOOD CELL COUNT (BEAKER) (test twbf=223) 2.89 M/ L 4.63-6.08 HEMOGLOBIN (BEAKER) (test ngby=751) 8.2 GM/DL 13.7-17.5 HEMATOCRIT (BEAKER) (test btgj=862) 27.1 % 40.1-51.0 MEAN CORPUSCULAR VOLUME (BEAKER) (test lmtp=118) 93.8 fL 79.0-92.2 MEAN CORPUSCULAR HEMOGLOBIN (BEAKER) (test 28.4 pg 25.7-32.2 cohi=345) MEAN CORPUSCULAR HEMOGLOBIN CONC (BEAKER) (test 30.3 GM/DL 32.3-36.5 oxzj=211) RED CELL DISTRIBUTION WIDTH (BEAKER) (test 14.6 % 11.6-14.4 djiq=289) PLATELET COUNT (BEAKER) (test zcmq=560) 394 K/CU MM 150-450 MEAN PLATELET VOLUME (BEAKER) (test dnbq=858) 9.9 fL 9.4-12.4 NUCLEATED RED BLOOD CELLS (BEAKER) (test 1 /100 WBC 0-0 ojkr=392) NEUTROPHILS RELATIVE PERCENT (BEAKER) (test 80 % erbe=398) LYMPHOCYTES RELATIVE PERCENT (BEAKER) (test 9 % cqpq=385) MONOCYTES RELATIVE PERCENT (BEAKER) (test 7 % ehvn=405) EOSINOPHILS RELATIVE PERCENT (BEAKER) (test 2 % ftci=612) BASOPHILS RELATIVE PERCENT (BEAKER) (test 0 % egxt=877) NEUTROPHILS ABSOLUTE COUNT (BEAKER) (test 9.19 K/ L 1.78-5.38 virs=747) LYMPHOCYTES ABSOLUTE COUNT (BEAKER) (test 1.03 K/ L 1.32-3.57 ojdj=941) MONOCYTES ABSOLUTE COUNT (BEAKER) (test 0.77 K/ L 0.30-0.82 elxl=655) EOSINOPHILS ABSOLUTE COUNT (BEAKER) (test 0.19 K/ L 0.04-0.54 yuyl=291) BASOPHILS ABSOLUTE COUNT (BEAKER) (test 0.03 K/ L 0.01-0.08 nrrn=637) IMMATURE GRANULOCYTES-RELATIVE PERCENT (BEAKER) 2 % 0-1 (test bybi=0515) (MANUAL DIFFERENTIAL)2017-02-18 03:52:00 Test Item Value Reference Range Comments TOTAL COUNTED (BEAKER) (test axfy=4967) PLT MORPHOLOGY (BEAKER) (test ghuu=318) Normal RBC MORPHOLOGY (BEAKER) (test dpch=904) Normal ATYPICAL LYMPHS(BEAKER) (test axpa=5220) Present [id number] 03:08:00 Test Item Value Reference Range Comments PHOSPHORUS (BEAKER) (test pxdw=749) 3.0 mg/dL 2.3-4.7 [id number] 03:08:00 Test Item Value Reference Range Comments MAGNESIUM (BEAKER) (test emkn=101) 2.0 mg/dL 1.6-2.6 BASIC METABOLIC [id number] 03:08:00 Test Item Value Reference Range Comments SODIUM (BEAKER) (test 151 meq/L 136-145 rdyk=409) POTASSIUM (BEAKER) (test 4.3 meq/L 3.5-5.1 nhpu=523) CHLORIDE (BEAKER) (test 118 meq/L 98-107 mgoo=425) CO2 (BEAKER) (test 25 meq/L 22-29 opyc=402) BLOOD UREA NITROGEN 30 mg/dL 7-21 (BEAKER) (test xzgc=376) CREATININE (BEAKER) (test 0.91 mg/dL 0.57-1.25 srlc=126) GLUCOSE RANDOM (BEAKER) 182 mg/dL 70-105 (test pbrp=971) CALCIUM (BEAKER) (test 8.3 mg/dL 8.4-10.2 bfvx=157) EGFR (BEAKER) (test 86 mL/min/1.73 sq m ESTIMATED GFR IS NOT hlhl=7174) ACCURATE CREATININE CLEARANCE IN PREDICTING GLOMERULAR FILTRATION RATE. ESTIMATED GFR IS NOT APPLICABLE FOR DIALYSIS PATIENTS. CALCIUM, [id number] 02:40:00 Test Item Value Reference Range Comments CALCIUM IONIZED (BEAKER) (test ogwu=568) 1.10 mmol/L 1.12-1.27 PH, BLOOD (AKER) (test wmbd=1271) 7.43 POCT-GLUCOSE [id number] 22:20:00 Test Item Value Reference Range Comments POC-GLUCOSE METER (BEAKER) 162 mg/dL 70-110 TESTED AT [address] (test bliy=2291) [place] [address] POCT-GLUCOSE [id number] 20:46:00 Test Item Value Reference Range Comments POC-GLUCOSE METER (BEAKER) 124 mg/dL 70-110 TESTED AT [address] (test jnrx=4851) [place] [address] POCT-GLUCOSE [id number] 18:29:00 Test Item Value Reference Range Comments POC-GLUCOSE METER (BEAKER) 90 mg/dL 70-110 TESTED AT [address] (test aeqd=3384) [place] [address] [id number] 14:57:00 Test Item Value Reference Range Comments SODIUM (BEAKER) (test cnci=795) 152 meq/L 136-145 POCT-GLUCOSE [id number] 13:17:00 Test Item Value Reference Range Comments POC-GLUCOSE METER (BEAKER) 197 mg/dL 70-110 TESTED AT [address] (test zocl=9866) [place] [address] CBC W/PLT COUNT & AUTO [id number] 13:09:00 Test Item Value Reference Range Comments WHITE BLOOD CELL COUNT (BEAKER) (test sngz=655) 12.5 K/ L 3.5-10.5 RED BLOOD CELL COUNT (BEAKER) (test fcrc=303) 3.05 M/ L 4.63-6.08 HEMOGLOBIN (BEAKER) (test pxaj=588) 8.6 GM/DL 13.7-17.5 HEMATOCRIT (BEAKER) (test pehh=438) 28.7 % 40.1-51.0 MEAN CORPUSCULAR VOLUME (BEAKER) (test uwvk=963) 94.1 fL 79.0-92.2 MEAN CORPUSCULAR HEMOGLOBIN (BEAKER) (test 28.2 pg 25.7-32.2 tbxf=153) MEAN CORPUSCULAR HEMOGLOBIN CONC (BEAKER) (test 30.0 GM/DL 32.3-36.5 jaqq=727) RED CELL DISTRIBUTION WIDTH (BEAKER) (test 14.7 % 11.6-14.4 sfjk=985) PLATELET COUNT (BEAKER) (test vcdw=245) 406 K/CU MM 150-450 MEAN PLATELET VOLUME (BEAKER) (test ctjx=273) 10.0 fL 9.4-12.4 NUCLEATED RED BLOOD CELLS (BEAKER) (test 1 /100 WBC 0-0 hgdi=215) NEUTROPHILS RELATIVE PERCENT (BEAKER) (test 84 % mjrd=378) LYMPHOCYTES RELATIVE PERCENT (BEAKER) (test 8 % ttap=661) MONOCYTES RELATIVE PERCENT (BEAKER) (test 5 % wxla=965) EOSINOPHILS RELATIVE PERCENT (BEAKER) (test 1 % xvpa=714) BASOPHILS RELATIVE PERCENT (BEAKER) (test 0 % lyml=515) NEUTROPHILS ABSOLUTE COUNT (BEAKER) (test 10.50 K/ L 1.78-5.38 qgfu=908) LYMPHOCYTES ABSOLUTE COUNT (BEAKER) (test 0.97 K/ L 1.32-3.57 zzrp=288) MONOCYTES ABSOLUTE COUNT (BEAKER) (test 0.67 K/ L 0.30-0.82 ubtd=004) EOSINOPHILS ABSOLUTE COUNT (BEAKER) (test 0.07 K/ L 0.04-0.54 ujcy=457) BASOPHILS ABSOLUTE COUNT (BEAKER) (test 0.04 K/ L 0.01-0.08 wpya=255) IMMATURE GRANULOCYTES-RELATIVE PERCENT (BEAKER) 2 % 0-1 (test ngzg=1471) (MANUAL DIFFERENTIAL)2017-02-17 13:09:00 Test Item Value Reference Range Comments TOTAL COUNTED (BEAKER) (test jrpw=6492) ATYPICAL LYMPHS(BEAKER) (test tjfk=6267) Present LARGE PLT(BEAKER) (test ocyt=0802) Present POLYCHROMATOPHILLIC RBCS(BEAKER) (test usyh=248) 2+ moderate POCT-GLUCOSE [id number] 10:22:00 Test Item Value Reference Range Comments POC-GLUCOSE METER (BEAKER) 220 mg/dL 70-110 TESTED AT [facility] [address] (test tllv=4401) [facility] [address] RAD, CHEST, 1 VIEW, NON [id number] 08:34:00Reason for exam:->TRACHShould this be performed at the bedside?->YesFINAL REPORT Chest one view INDICATION: Tracheostomy COMPARISON: 02/16/2017 IMPRESSION: Tracheostomy tube and feeding tube are again noted. There are low lung volumes with pulmonary vascular congestion and stable perihilar and basilar opacities. Pneumonitis cannot be excluded particularly in the lower lungs. A small right pleural effusion is present. Small left pleural effusionis suspected. The cardiomediastinal contours are stable. No pneumothorax is seen. Signed: Arun Reddy MDReport Verified Date/Time: 02/17/2017 08:34:57 Reading Location : [facility] C013V Neuro Reading Room [id number] 07:13:00 Test Item Value Reference Range Comments PHOSPHORUS (BEAKER) (test qatj=196) 2.6 mg/dL 2.3-4.7 [id number] 07:13:00 Test Item Value Reference Range Comments MAGNESIUM (BEAKER) (test lmmz=721) 2.0 mg/dL 1.6-2.6 BASIC METABOLIC [id number] 07:13:00 Test Item Value Reference Range Comments SODIUM (BEAKER) (test 152 meq/L 136-145 hgfn=006) POTASSIUM (BEAKER) (test 4.0 meq/L 3.5-5.1 xjuc=304) CHLORIDE (BEAKER) (test 117 meq/L 98-107 ymda=330) CO2 (BEAKER) (test 27 meq/L 22-29 ydsd=939) BLOOD UREA NITROGEN 28 mg/dL 7-21 (BEAKER) (test dvee=804) CREATININE (BEAKER) (test 0.91 mg/dL 0.57-1.25 best=810) GLUCOSE RANDOM (BEAKER) 222 mg/dL 70-105 (test vgsk=578) CALCIUM (BEAKER) (test 8.6 mg/dL 8.4-10.2 bbvb=643) EGFR (BEAKER) (test 86 mL/min/1.73 sq m ESTIMATED GFR IS NOT vefu=7106) ACCURATE CREATININE CLEARANCE IN PREDICTING GLOMERULAR FILTRATION RATE. ESTIMATED GFR IS NOT APPLICABLE FOR DIALYSIS PATIENTS. CALCIUM, [id number] 06:27:00 Test Item Value Reference Range Comments CALCIUM IONIZED (BEAKER) (test diod=032) 1.13 mmol/L 1.12-1.27 PH, BLOOD (BEAKER) (test idxa=5914) 7.42 POCT-GLUCOSE [id number] 05:50:00 Test Item Value Reference Range Comments POC-GLUCOSE METER (BEAKER) 253 mg/dL 70-110 TESTED AT [address] (test uxdo=1989) [place] [id number] POCT-GLUCOSE [id number] 22:31:00 Test Item Value Reference Range Comments POC-GLUCOSE METER (BEAKER) 263 mg/dL 70-110 TESTED AT [address] (test pzvr=7803) [facility] [address] POCT-GLUCOSE [id number] 18:21:00 Test Item Value Reference Range Comments POC-GLUCOSE METER (BEAKER) 231 mg/dL 70-110 TESTED AT [address] (test mhmv=4369) [place] [id number] POCT-GLUCOSE [id number] 17:46:00 Test Item Value Reference Range Comments POC-GLUCOSE METER (BEAKER) 208 mg/dL 70-110 TESTED AT [address] (test rwnl=4719) [facility] [address] POCT-GLUCOSE [id number] 12:32:00 Test Item Value Reference Range Comments POC-GLUCOSE METER (BEAKER) 271 mg/dL 70-110 TESTED AT [address] (test hboq=1646) [facility] [address] RAD, CHEST, 1 VIEW, NON [id number] 07:30:00Reason for exam:->TRACHShould this be performed at the bedside?->YesFINAL REPORT HISTORY : TRACH. Comparison: 02/15/2017 Comment: Single portableview of the chest was obtained. The cardiac silhouette size is enlarged. Support lines and tubes are unchanged. No pneumothorax is seen. There is mild pulmonary venous congestion. There is a small right-sided pleural effusion with some adjacent airspace disease/consolidation. Signed: Zoe Alonso MDReport Verified Date/Time : 02/16/2017 07:30:27 Reading Location: [address] Transitional Reading Room POCT- GLUCOSE [id number] 06:18:00 Test Item Value Reference Range Comments POC-GLUCOSE METER (BEAKER) 247 mg/dL 70-110 TESTED AT [address] (test gnop=1229) [facility] [address] POCT-GLUCOSE [id number] 06:10:00 Test Item Value Reference Range Comments POC-GLUCOSE METER (BEAKER) 290 mg/dL 70-110 TESTED AT [address] (test mqit=4971) [place] [address] [id number] 03:15:00 Test Item Value Reference Range Comments PHOSPHORUS (BEAKER) (test asmo=680) 2.3 mg/dL 2.3-4.7 [id number] 03:15:00 Test Item Value Reference Range Comments MAGNESIUM (BEAKER) (test rliq=981) 2.2 mg/dL 1.6-2.6 BASIC METABOLIC [id number] 03:15:00 Test Item Value Reference Range Comments SODIUM (BEAKER) (test 148 meq/L 136-145 dmmo=324) POTASSIUM (BEAKER) (test 4.4 meq/L 3.5-5.1 ylsj=905) CHLORIDE (BEAKER) (test 114 meq/L 98-107 plbp=673) CO2 (BEAKER) (test 25 meq/L 22-29 iuhc=738) BLOOD UREA NITROGEN 30 mg/dL 7-21 (BEAKER) (test cxnz=041) CREATININE (BEAKER) (test 1.06 mg/dL 0.57-1.25 mmmn=159) GLUCOSE RANDOM (BEAKER) 271 mg/dL 70-105 (test fssr=083) CALCIUM (BEAKER) (test 8.1 mg/dL 8.4-10.2 yykq=776) EGFR (BEAKER) (test 72 mL/min/1.73 sq m ESTIMATED GFR IS NOT kuxq=4727) ACCURATE CREATININE CLEARANCE IN PREDICTING GLOMERULAR FILTRATION RATE. ESTIMATED GFR IS NOT APPLICABLE FOR DIALYSIS PATIENTS. BLOOD GAS, [id number] 03:14:00 Test Item Value Reference Range Comments PH ARTERIAL (BEAKER) (test zayi=038) 7.48 7.35-7.45 PCO2 ARTERIAL (BEAKER) (test gzsi=968) 34 mmHg 35-45 PO2 ARTERIAL (BEAKER) (test gcbz=923) 98 mmHg 80-90 O2 SATURATION ARTERIAL (BEAKER) (test dpnf=298) 97.6 % 96.0-97.0 HCO3 ARTERIAL (BEAKER) (test xgvh=653) 25 mmol/L 21-29 BASE EXCESS ARTERIAL (BEAKER) (test mayk=291) 1.4 mmol/L -2.0-3.0 PATIENT TEMPERATURE (BEAKER) (test fsva=1934) 38.1 C FIO2 (BEAKER) (test izdm=6820) 40.0 % CBC W/PLT COUNT & AUTO [id number] 03:11:00 Test Item Value Reference Range Comments WHITE BLOOD CELL COUNT (BEAKER) (test ysqu=973) 11.0 K/ L 3.5-10.5 RED BLOOD CELL COUNT (BEAKER) (test uebg=486) 2.96 M/ L 4.63-6.08 HEMOGLOBIN (BEAKER) (test yvbn=539) 8.4 GM/DL 13.7-17.5 HEMATOCRIT (BEAKER) (test ojke=670) 27.7 % 40.1-51.0 MEAN CORPUSCULAR VOLUME (BEAKER) (test imck=240) 93.6 fL 79.0-92.2 MEAN CORPUSCULAR HEMOGLOBIN (BEAKER) (test 28.4 pg 25.7-32.2 sbcx=812) MEAN CORPUSCULAR HEMOGLOBIN CONC (BEAKER) (test 30.3 GM/DL 32.3-36.5 zgid=031) RED CELL DISTRIBUTION WIDTH (BEAKER) (test 14.6 % 11.6-14.4 fbjh=771) PLATELET COUNT (BEAKER) (test mjfu=049) 386 K/CU MM 150-450 MEAN PLATELET VOLUME (BEAKER) (test ifvj=122) 10.1 fL 9.4-12.4 NUCLEATED RED BLOOD CELLS (BEAKER) (test 1 /100 WBC 0-0 wxxm=772) NEUTROPHILS RELATIVE PERCENT (BEAKER) (test 83 % fcao=313) LYMPHOCYTES RELATIVE PERCENT (BEAKER) (test 8 % rwiz=923) MONOCYTES RELATIVE PERCENT (BEAKER) (test 6 % buxg=570) EOSINOPHILS RELATIVE PERCENT (BEAKER) (test 0 % thto=217) BASOPHILS RELATIVE PERCENT (BEAKER) (test 0 % iels=356) NEUTROPHILS ABSOLUTE COUNT (BEAKER) (test 9.13 K/ L 1.78-5.38 cuxu=097) LYMPHOCYTES ABSOLUTE COUNT (BEAKER) (test 0.91 K/ L 1.32-3.57 znae=595) MONOCYTES ABSOLUTE COUNT (BEAKER) (test 0.69 K/ L 0.30-0.82 bzhy=864) EOSINOPHILS ABSOLUTE COUNT (BEAKER) (test 0.03 K/ L 0.04-0.54 vzps=111) BASOPHILS ABSOLUTE COUNT (BEAKER) (test 0.04 K/ L 0.01-0.08 qzkw=416) IMMATURE GRANULOCYTES-RELATIVE PERCENT (BEAKER) 2 % 0-1 (test oyld=4656) CALCIUM, [id number] 03:10:00 Test Item Value Reference Range Comments CALCIUM IONIZED (BEAKER) (test peoi=108) 1.07 mmol/L 1.12-1.27 PH, BLOOD (BEAKER) (test ytvb=3997) 7.45 [id number] 22:29:00 Test Item Value Reference Range Comments SODIUM (BEAKER) (test oyso=617) 145 meq/L 136-145 POCT-GLUCOSE [id number] 21:17:00 Test Item Value Reference Range Comments POC-GLUCOSE METER (BEAKER) 300 mg/dL 70-110 TESTED AT [facility] [address] [facility] (test wtcl=3990) [facility] [address] CT, [id number] 18:36:00CT A/P with IV and PO contrast.FINAL REPORT ABDOMINAL AND PELVIS CT DATED 02/15/2017 [...] is trace right pleural effusion. Subsegmental atelectasis isseen in both lung bases. Liver and spleen are normal in size without focal abnormality. A 2.3 x 3.8 cm, previously 2.3 x 4.0 cm, located fluid collection is seen on the right hemidiaphragm. A 1.3 x 2.1cm loculated fluid collection is seen adjacent to the gallbladder fossa, previously 1.5 x 3.8 cm. A 1.8 x 4.5 cm loculated fluid collection is seen in the right right paracolic gutter, previously 2.6 x5.6 cm. There is persistent loculated fluid subcapsular [...] IMPRESSION: 1. Trace right pleural effusion and bibasilarsubsegmental atelectasis.2. Persistent subcapsular splenic collection.3. Interval decrease in size of the perinephric loculated collections and collection in the right paracolic gutter.4. Right renal cyst.5. Distended gallbladder with sludge.6. Findings suspicious for perirectal abscess. Recommend further evaluation of the pelvis with rectal contrast. Signed: Monster Forbes Verified Date/Time:2016 18:36:50 Reading Location: [facility] B1 C013Y CT Body Reading Room POCT-GLUCOSE [id number] 18:02:00 Test Item Value Reference Range Comments POC-GLUCOSE METER (BEAKER) 225 mg/dL 70-110 TESTED AT [facility] [address] (test lvow=8743) [place] [address] RAD, CHEST, 1 VIEW, NON [id number] 16:16:00Reason for exam:->Post trach placementShould this be performed at the bedside?->YesFINAL REPORT EXAM: AP portable chest radiograph HISTORY PROVIDED: Post trach placement COMPARISON: 02/15/2017 0424 IMPRESSION:The examination is limited secondary to underpenetration. The endotracheal tube has been removed. Tracheostomy tube is in place with its tip approximately 4.4 cm above the tiago. An enteric tube descends into the abdomen with its tip off the field of view. Central pulmonary vascular congestion and mild interstitial edema show no significant change. Right greater than left bilateral pleural effusions with associated basilar atelectasis/consolidation, unchanged. No discernible pneumothorax. The cardiomediastinal silhouette is stable. Signed: Saad Guzman MDReport Verified Date/Time: 02/15/2017 16:16:24 Reading Location: [facility] METABOLIC [id number] 16:06:00 Test Item Value Reference Range Comments SODIUM (BEAKER) (test 149 meq/L 136-145 tpzj=549) POTASSIUM (BEAKER) (test 4.9 meq/L 3.5-5.1 mnwa=575) CHLORIDE (BEAKER) (test 114 meq/L 98-107 bvdl=533) CO2 (BEAKER) (test 25 meq/L 22-29 vigm=330) BLOOD UREA NITROGEN 28 mg/dL 7-21 (BEAKER) (test vnvn=247) CREATININE (BEAKER) (test 1.03 mg/dL 0.57-1.25 tadr=673) GLUCOSE RANDOM (BEAKER) 172 mg/dL 70-105 (test xmtf=110) CALCIUM (BEAKER) (test 8.3 mg/dL 8.4-10.2 bjru=781) EGFR (BEAKER) (test 74 mL/min/1.73 sq m ESTIMATED GFR IS NOT zkmt=1967) ACCURATE CREATININE CLEARANCE IN PREDICTING GLOMERULAR FILTRATION RATE. ESTIMATED GFR IS NOT APPLICABLE FOR DIALYSIS PATIENTS. EEG AWAKE AND [id number] 15:53:00Reason for exam:-> encephalopathyShould this be performed at the bedside?->YesDATE OF EE02-15 DATE OF REPORT: 02-15-2017 ACC: [id number] EE6 Start time: 13:17 Stoptime: 13:38 ICD-10: G 93.40 CPT Code: 33997 HISTORY: 57 y.o. male s/p robotic surgery for rectal cancer 2 weeks ago. 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 DESCRIPTION OF RECORD: This EEG demonstrates the presence of high amplitude (70-100uV) slow delta frequency background slowing (0.2-0.5Hz) with some superimposed diffuse theta activity. These features are not changed by noxious stimulation at all four limbs.There are no clear epochs of wakefulness or [...] changes. CLINICAL CORRELATION: This EEG finding is consistentwith etiologically nonspecific severe encephalopathy with features. An EEG without epileptiform discharges does not exclude the possibility of epilepsy. If the clinical suspicion of epilepsy remains, consider additional EEG recordings. Leo Brandon MD Neurophysiology Fellow PGY5 Shad Jovel MD Epilepsy Attending 03:53 PMBLOOD GAS, [id number] 15:51:00 Test Item Value Reference Range Comments PH ARTERIAL (BEAKER) (test rhkb=824) 7.45 7.35-7.45 PCO2 ARTERIAL (BEAKER) (test pgpn=533) 40 mmHg 35-45 PO2 ARTERIAL (BEAKER) (test kizn=362) 54 mmHg 80-90 O2 SATURATION ARTERIAL (BEAKER) (test fcmx=896) 86.6 % 96.0-97.0 HCO3 ARTERIAL (BEAKER) (test drwz=357) 27 mmol/L 21-29 BASE EXCESS ARTERIAL (BEAKER) (test qgpk=267) 3.3 mmol/L -2.0-3.0 PATIENT TEMPERATURE (BEAKER) (test vjze=0681) 38.8 C FIO2 (BEAKER) (test bsef=4831) 40.0 % BLOOD [id number] 12:54:00 Test Item Value Reference Range Comments CULTURE (BEAKER) From Anaerobic Bottle Only (test syyg=8675) Coagulase negative Staphylococcus GRAM STAIN RESULT From anaerobic bottle (BEAKER) (test only: gram positive ztes=0532) cocci in clusters Coagulase Negative Staphylococcus Species (CoNS) DETECTED, Methicillin Resistant First line therapy: Vancomycin Coagulase Negative Staphylococcus ( CoNS) DETECTEDmecA DETECTEDPossible contamination.Thelikelihood of pathogenicity is increased if the organism is observed in multiple blood cultures obtained from separate venipunctures. Other organisms and resistance markers not contained in this PCR panel cannot be excluded and follow-up of traditional culture results is required. This sample was tested at the [facility] using the [employer] Blood Culture ID Panel.This test is FDA cleared for in vitro diagnostic use and has been verified and approved by the [facility] for [facility] use. Reference Range: Not DetectedPOCT-GLUCOSE [id number] 12:46:00 Test Item Value Reference Range Comments POC-GLUCOSE METER (BEAKER) 124 mg/dL 70-110 TESTED AT [address] (test nzma=5286) [facility] [address] POCT-GLUCOSE [id number] 11:30:00 Test Item Value Reference Range Comments POC-GLUCOSE METER (BEAKER) 80 mg/dL 70-110 TESTED AT [address] (test beoz=2302) [facility] [address] CBC W/PLT COUNT & AUTO [id number] 11:22:00 Test Item Value Reference Range Comments WHITE BLOOD CELL COUNT (BEAKER) (test teyu=097) 11.2 K/ L 3.5-10.5 RED BLOOD CELL COUNT (BEAKER) (test mgog=253) 3.12 M/ L 4.63-6.08 HEMOGLOBIN (BEAKER) (test bumn=225) 8.9 GM/DL 13.7-17.5 HEMATOCRIT (BEAKER) (test pbow=181) 29.0 % 40.1-51.0 MEAN CORPUSCULAR VOLUME (BEAKER) (test hzsf=499) 92.9 fL 79.0-92.2 MEAN CORPUSCULAR HEMOGLOBIN (BEAKER) (test 28.5 pg 25.7-32.2 ghbh=831) MEAN CORPUSCULAR HEMOGLOBIN CONC (BEAKER) (test 30.7 GM/DL 32.3-36.5 bwzt=843) RED CELL DISTRIBUTION WIDTH (BEAKER) (test 14.5 % 11.6-14.4 qiwz=550) PLATELET COUNT (BEAKER) (test jbzf=550) 416 K/CU MM 150-450 MEAN PLATELET VOLUME (BEAKER) (test pgra=847) 9.9 fL 9.4-12.4 NUCLEATED RED BLOOD CELLS (BEAKER) (test 1 /100 WBC 0-0 giqq=707) IMMATURE GRANULOCYTES-RELATIVE PERCENT (BEAKER) 1 % 0-1 (test zteg=4099) (MANUAL DIFFERENTIAL)2017-02-15 11:22:00 Test Item Value Reference Range Comments NEUTROPHILS - REL (DIFF) (BEAKER) (test dyrj=5486) 77 % LYMPHOCYTES - REL (DIFF) (BEAKER) (test vzuh=9454) 14 % MONOCYTES - REL (DIFF) (BEAKER) (test zqtl=4105) 4 % MYELOCYTES-REL (DIFF) (BEAKER) (test ihpr=5759) 1 % 0-0 BANDS - REL (DIFF) (BEAKER) (test jope=0378) 4 % 0-10 NEUTROPHILS - ABS (DIFF) (BEAKER) (test nyvc=9819) 8.62 K/ L 1.80-8.00 LYMPHOCYTES - ABS (DIFF) (BEAKER) (test hwit=5199) 1.57 K/ L 1.48-4.50 MONOCYTES - ABS (DIFF) (BEAKER) (test imiv=2676) 0.45 K/ L 0.00-1.30 BANDS-ABS (DIFF) (BEAKER) (test ttvr=7629) 0.4 K/ L 0.0-0.8 MYELOCYTES-ABS (DIFF) (BEAKER) (test yjge=1594) 0.11 K/ L 0.00-0.00 TOTAL COUNTED (BEAKER) (test ytqg=6303) 100 BANDS + SEGMENTED NEUTROPHILS (BEAKER) (test 9.07 hcxr=1797) WBC MORPHOLOGY (BEAKER) (test jdth=222) Normal PLT MORPHOLOGY (BEAKER) (test dlqc=967) Normal RBC MORPHOLOGY (BEAKER) (test uzrm=724) Normal RAD, CHEST, 1 VIEW, NON [id number] 08:47:00Reason for exam:-> IntubatedShould this be performed at the bedside?->YesFINAL REPORT AP chest HISTORY: Intubation COMPARISON: 02/14/2017 IMPRESSION: Supportive lines unchanged. Lungs hypoinflated. Stable cardiac silhouette. Mild interstitial edema. Trace effusions. No pneumothorax. No appreciable interval change. Signed: Piter Arreguin MDReport Verified Date/Time: 02/15/2017 08:47: 41 Reading Location: [facility] Radiology Reading Room POCT-GLUCOSE [id number] 06:02:00 Test Item Value Reference Range Comments POC-GLUCOSE METER (BEAKER) 94 mg/dL 70-110 TESTED AT [facility] [address] [place] [address] (test ttae=0953) [facility] [address] CALCIUM, [id number] 05:35:00 Test Item Value Reference Range Comments CALCIUM IONIZED (BEAKER) (test dxzu=913) 1.10 mmol/L 1.12-1.27 PH, BLOOD (BEAKER) (test icgt=4718) 7.47 BLOOD [id number] 05:02:00 Test Item Value Reference Range Comments CULTURE (BEAKER) (test uzpm=6664) No growth in 5 days [id number] 04:56:00 Test Item Value Reference Range Comments PHOSPHORUS (BEAKER) (test pysh=837) 3.1 mg/dL 2.3-4.7 [id number] 04:56:00 Test Item Value Reference Range Comments MAGNESIUM (BEAKER) (test jrhw=470) 2.3 mg/dL 1.6-2.6 BASIC METABOLIC [id number] 04:56:00 Test Item Value Reference Range Comments SODIUM (BEAKER) (test 151 meq/L 136-145 hgzr=471) POTASSIUM (BEAKER) (test 4.3 meq/L 3.5-5.1 eozy=162) CHLORIDE (BEAKER) (test 116 meq/L 98-107 ormv=539) CO2 (BEAKER) (test 26 meq/L 22-29 epph=707) BLOOD UREA NITROGEN 28 mg/dL 7-21 (BEAKER) (test ggqm=211) CREATININE (BEAKER) (test 0.79 mg/dL 0.57-1.25 bzij=815) GLUCOSE RANDOM (BEAKER) 70 mg/dL 70-105 (test zzqc=091) CALCIUM (BEAKER) (test 8.3 mg/dL 8.4-10.2 kzmz=495) EGFR (BEAKER) (test 101 mL/min/1.73 sq m ESTIMATED GFR IS NOT djct=2923) ACCURATE CREATININE CLEARANCE IN PREDICTING GLOMERULAR FILTRATION RATE. ESTIMATED GFR IS NOT APPLICABLE FOR DIALYSIS PATIENTS. POCT-GLUCOSE [id number] 22:11:00 Test Item Value Reference Range Comments POC-GLUCOSE METER (BEAKER) 158 mg/dL 70-110 TESTED AT [facility] [address] [facility] (test qsnz=9112) [facility] [address] POCT-GLUCOSE [id number] 18:32:00 Test Item Value Reference Range Comments POC-GLUCOSE METER (BEAKER) 201 mg/dL 70-110 TESTED AT [facility] [address] [facility] (test hzit=7883) [facility] [address] HEPARIN ASSAY - LOW MOLECULAR [id number] 15:54:00 Test Item Value Reference Range Comments LOVENOX-ANTI 10A (BEAKER) (test gkcm=5381) 0.85 u/ml 0.60-2.00 Anti-Factor 10-A Level (Heparin Assay for Low Molecular Weight Heparin) Monitoring Guidelines: Blood samples should be obtained 4 hours post subcutaneous injection (time of Peak level) Therapeutic Peak Levels: 0.6-1.0 units/mL twice daily enoxaparin 1.0-2.0 units/mL once daily enoxaparinRef: CHEST 2012;141:[id number] draw 5 hours after Lovenox administration. Thank you!POCT-GLUCOSE [id number] 12:52:00 Test Item Value Reference Range Comments POC-GLUCOSE METER (BEAKER) 193 mg/dL 70-110 TESTED AT [address] (test riuu=9004) [place] [id number] POCT-GLUCOSE [id number] 08:10:00 Test Item Value Reference Range Comments POC-GLUCOSE METER (BEAKER) 194 mg/dL 70-110 TESTED AT [address] (test ruig=6287) [place] [address] RAD, CHEST, 1 VIEW, NON [id number] 07:56:00Reason for exam:-> IntubatedShould this be performed at the bedside?->YesFINAL REPORT Chest one view. Clinical history: Intubated Comparison: 2016 Discussion: A frontal chest is provided. Cardiomediastinal contours are unchanged. Lines and tubes are in stable position. Low lung volume with bibasilar atelectasis. No new consolidation. No pneumothorax. Probable small bilateral effusions. Signed: Mac Santamaria Verified Date/Time: 02/14/2017 07:56:55 Reading Location: [facility] Radiology Reading Room POCT-GLUCOSE [id number] 05:50:00 Test Item Value Reference Range Comments POC-GLUCOSE METER (BEAKER) 207 mg/dL 70-110 TESTED AT [address] (test oqcb=5202) [place] [address] CBC W/PLT COUNT & AUTO [id number] 04:20:00 Test Item Value Reference Range Comments WHITE BLOOD CELL COUNT (BEAKER) (test qatp=875) 11.9 K/ L 3.5-10.5 RED BLOOD CELL COUNT (BEAKER) (test wbuw=280) 3.27 M/ L 4.63-6.08 HEMOGLOBIN (BEAKER) (test zuhe=882) 9.3 GM/DL 13.7-17.5 HEMATOCRIT (BEAKER) (test jgeq=551) 30.4 % 40.1-51.0 MEAN CORPUSCULAR VOLUME (BEAKER) (test xtgt=329) 93.0 fL 79.0-92.2 MEAN CORPUSCULAR HEMOGLOBIN (BEAKER) (test 28.4 pg 25.7-32.2 aeeo=161) MEAN CORPUSCULAR HEMOGLOBIN CONC (BEAKER) (test 30.6 GM/DL 32.3-36.5 mrwm=016) RED CELL DISTRIBUTION WIDTH (BEAKER) (test 14.4 % 11.6-14.4 spyk=793) PLATELET COUNT (BEAKER) (test xuqq=151) 421 K/CU MM 150-450 MEAN PLATELET VOLUME (BEAKER) (test mybj=479) 10.1 fL 9.4-12.4 NUCLEATED RED BLOOD CELLS (BEAKER) (test 0 /100 WBC 0-0 kkob=497) NEUTROPHILS RELATIVE PERCENT (BEAKER) (test 80 % ulkz=733) LYMPHOCYTES RELATIVE PERCENT (BEAKER) (test 10 % nswm=652) MONOCYTES RELATIVE PERCENT (BEAKER) (test 8 % gkmj=816) EOSINOPHILS RELATIVE PERCENT (BEAKER) (test 1 % wdhb=534) BASOPHILS RELATIVE PERCENT (BEAKER) (test 1 % szdz=711) NEUTROPHILS ABSOLUTE COUNT (BEAKER) (test 9.46 K/ L 1.78-5.38 rheq=439) LYMPHOCYTES ABSOLUTE COUNT (BEAKER) (test 1.18 K/ L 1.32-3.57 yogu=264) MONOCYTES ABSOLUTE COUNT (BEAKER) (test 0.93 K/ L 0.30-0.82 xnmn=644) EOSINOPHILS ABSOLUTE COUNT (BEAKER) (test 0.08 K/ L 0.04-0.54 sxxc=111) BASOPHILS ABSOLUTE COUNT (BEAKER) (test 0.06 K/ L 0.01-0.08 zfxm=080) IMMATURE GRANULOCYTES-RELATIVE PERCENT (BEAKER) 2 % 0-1 (test sgeu=2583) [id number] 04:16:00 Test Item Value Reference Range Comments PHOSPHORUS (BEAKER) (test lmni=070) 2.3 mg/dL 2.3-4.7 [id number] 04:16:00 Test Item Value Reference Range Comments MAGNESIUM (BEAKER) (test kopi=776) 2.3 mg/dL 1.6-2.6 BASIC METABOLIC [id number] 04:16:00 Test Item Value Reference Range Comments SODIUM (BEAKER) (test 149 meq/L 136-145 elcx=513) POTASSIUM (BEAKER) (test 4.4 meq/L 3.5-5.1 lxwb=275) CHLORIDE (BEAKER) (test 114 meq/L 98-107 hult=073) CO2 (BEAKER) (test 26 meq/L 22-29 rnzm=847) BLOOD UREA NITROGEN 29 mg/dL 7-21 (BEAKER) (test mrag=755) CREATININE (BEAKER) (test 0.91 mg/dL 0.57-1.25 vjfa=573) GLUCOSE RANDOM (BEAKER) 185 mg/dL 70-105 (test xagt=155) CALCIUM (BEAKER) (test 8.4 mg/dL 8.4-10.2 kpds=475) EGFR (BEAKER) (test 86 mL/min/1.73 sq m ESTIMATED GFR IS NOT zsta=0069) ACCURATE CREATININE CLEARANCE IN PREDICTING GLOMERULAR FILTRATION RATE. ESTIMATED GFR IS NOT APPLICABLE FOR DIALYSIS PATIENTS. PROTHROMBIN [id number] 03:57:00 Test Item Value Reference Range Comments PROTIME (BEAKER) (test imxb=958) 16.4 seconds 11.7-14.7 INR (BEAKER) (test nmla=255) 1.3 <=5.9 RECOMMENDED COUMADIN/WARFARIN INR THERAPY RANGESSTANDARD DOSE: 2.0 - 3.0 Includes: PROPHYLAXIS forvenous thrombosis, systemic embolization; TREATMENT for venous thrombosis and/or pulmonary embolus.HIGH RISK: Target INR is 2.5-3.5 for patients with mechanical heart valves.CALCIUM, [id number] 03:35:00 Test Item Value Reference Range Comments CALCIUM IONIZED (BEAKER) (test wjcm=242) 1.09 mmol/L 1.12-1.27 PH, BLOOD (BEAKER) (test smwm=4921) 7.46 POCT-GLUCOSE [id number] 00:32:00 Test Item Value Reference Range Comments POC-GLUCOSE METER (BEAKER) 256 mg/dL 70-110 TESTED AT [address] (test ajuu=7736) [facility] [address] POCT-GLUCOSE [id number] 21:46:00 Test Item Value Reference Range Comments POC-GLUCOSE METER (BEAKER) 293 mg/dL 70-110 TESTED AT [address] (test chkw=5140) [facility] [address] HEPARIN ASSAY - LOW MOLECULAR [id number] 18:03:00 Test Item Value Reference Range Comments LOVENOX-ANTI 10A (BEAKER) (test wxwx=7061) 0.97 u/ml 0.60-2.00 Anti-Factor 10-A Level (Heparin Assay for Low Molecular Weight Heparin) Monitoring Guidelines: Blood samples should be obtained 4 hours post subcutaneous injection (time of Peak level) Therapeutic Peak Levels: 0.6-1.0 units/mL twice daily enoxaparin 1.0-2.0 units/mL once daily enoxaparinRef: CHEST 2012;141:[id number] 17:02:00 Test Item Value Reference Range Comments POC-GLUCOSE METER ([employer]) 271 mg/dL 70-110 TESTED AT [address] (test civu=1102) [place] [id number] POCT-GLUCOSE [id number] 12:15:00 Test Item Value Reference Range Comments POC-GLUCOSE METER ([employer]) 283 mg/dL 70-110 TESTED AT [address] (test pjka=9859) [facility] [address] MISCELLANEOUS LAB [id number] 10:55:00 Test Item Value Reference Range Comments SCAN RESULT (test srnj=[id number]) Result comments: Coagulase Negative Staphylococcus Species (CoNS) [...] required. This sample was tested at the [facility] using the [employer] Blood Culture ID Panel. This test is FDA cleared for in vitro diagnostic use and has been verified and approved by the [facility] Micro[facility] laboratory for clinical use. Reference Range: Not DetectedRAD, CHEST, 1 VIEW, NON [id number] 07:21:00Reason for exam:->IntubatedShould this be performed at the bedside ?->YesFINAL REPORT Chest, one view. HISTORY: Intubated COMPARISON: 02/12/2017 IMPRESSION: Supporting lines and tubes unchanged in position. Unchanged low lung volumes and mild bibasilar atelectasis. Cardiomediastinal silhouette is persistently enlarged. Trace bilateral pleural effusions. No pneumothorax. Signed: Hank Gray MDReport Verified Date/Time: 02/13/2017 07:21:31 Reading Location: [facility] [address] Radiology Reading Room Electronically signed by: HANK GRAY MD on 07:21 AMPOCT-GLUCOSE [id number] 05:53:00 Test Item Value Reference Range Comments POC-GLUCOSE METER (BEAKER) 218 mg/dL 70-110 TESTED AT [facility] [address] [facility] (test gdxg=2185) [facility] [address] CBC W/PLT COUNT & AUTO [id number] 04:42:00 Test Item Value Reference Range Comments WHITE BLOOD CELL COUNT (BEAKER) (test axey=967) 11.6 K/ L 3.5-10.5 RED BLOOD CELL COUNT (BEAKER) (test vtno=885) 3.30 M/ L 4.63-6.08 HEMOGLOBIN (BEAKER) (test izmr=073) 9.6 GM/DL 13.7-17.5 HEMATOCRIT (BEAKER) (test gtwg=359) 30.6 % 40.1-51.0 MEAN CORPUSCULAR VOLUME (BEAKER) (test zobh=878) 92.7 fL 79.0-92.2 MEAN CORPUSCULAR HEMOGLOBIN (BEAKER) (test 29.1 pg 25.7-32.2 crpp=352) MEAN CORPUSCULAR HEMOGLOBIN CONC (BEAKER) (test 31.4 GM/DL 32.3-36.5 krlj=310) RED CELL DISTRIBUTION WIDTH (BEAKER) (test 14.2 % 11.6-14.4 fqyp=619) PLATELET COUNT (BEAKER) (test lyiq=738) 382 K/CU MM 150-450 MEAN PLATELET VOLUME (BEAKER) (test gxtc=002) 10.1 fL 9.4-12.4 NUCLEATED RED BLOOD CELLS (BEAKER) (test 0 /100 WBC 0-0 htkc=078) NEUTROPHILS RELATIVE PERCENT (BEAKER) (test 82 % ktsv=783) LYMPHOCYTES RELATIVE PERCENT (BEAKER) (test 8 % waoi=749) MONOCYTES RELATIVE PERCENT (BEAKER) (test 7 % mkom=630) EOSINOPHILS RELATIVE PERCENT (BEAKER) (test 1 % ppfs=853) BASOPHILS RELATIVE PERCENT (BEAKER) (test 0 % mfby=217) NEUTROPHILS ABSOLUTE COUNT (BEAKER) (test 9.45 K/ L 1.78-5.38 eopi=985) LYMPHOCYTES ABSOLUTE COUNT (BEAKER) (test 0.96 K/ L 1.32-3.57 iopw=597) MONOCYTES ABSOLUTE COUNT (BEAKER) (test 0.85 K/ L 0.30-0.82 chzu=053) EOSINOPHILS ABSOLUTE COUNT (BEAKER) (test 0.11 K/ L 0.04-0.54 xvvr=662) BASOPHILS ABSOLUTE COUNT (BEAKER) (test 0.03 K/ L 0.01-0.08 qfwl=765) IMMATURE GRANULOCYTES-RELATIVE PERCENT (BEAKER) 1 % 0-1 (test npnd=3887) [id number] 04:10:00 Test Item Value Reference Range Comments PHOSPHORUS (BEAKER) (test fzua=274) 2.8 mg/dL 2.3-4.7 [id number] 04:10:00 Test Item Value Reference Range Comments MAGNESIUM (BEAKER) (test ovkf=293) 2.1 mg/dL 1.6-2.6 BASIC METABOLIC [id number] 04:10:00 Test Item Value Reference Range Comments SODIUM (BEAKER) (test 146 meq/L 136-145 ihrv=651) POTASSIUM (BEAKER) (test 4.5 meq/L 3.5-5.1 ctmg=774) CHLORIDE (BEAKER) (test 110 meq/L 98-107 aqhf=522) CO2 (BEAKER) (test 26 meq/L 22-29 xewm=456) BLOOD UREA NITROGEN 30 mg/dL 7-21 (BEAKER) (test pbkh=371) CREATININE (BEAKER) (test 0.92 mg/dL 0.57-1.25 hmip=311) GLUCOSE RANDOM (BEAKER) 197 mg/dL 70-105 (test tkip=880) CALCIUM (BEAKER) (test 8.4 mg/dL 8.4-10.2 mtvd=448) EGFR (BEAKER) (test 84 mL/min/1.73 sq m ESTIMATED GFR IS NOT uybb=3998) ACCURATE CREATININE CLEARANCE IN PREDICTING GLOMERULAR FILTRATION RATE. ESTIMATED GFR IS NOT APPLICABLE FOR DIALYSIS PATIENTS. PROTHROMBIN TIME/[id number] 04:06:00 Test Item Value Reference Range Comments PROTIME (BEAKER) (test fghd=521) 16.4 seconds 11.7-14.7 INR (BEAKER) (test dmon=473) 1.3 <=5.9 RECOMMENDED COUMADIN/WARFARIN INR THERAPY RANGESSTANDARD DOSE: 2.0 - 3.0 Includes: PROPHYLAXIS forvenous thrombosis, systemic embolization; TREATMENT for venous thrombosis and/or pulmonary embolus.HIGH RISK: Target INR is 2.5-3.5 for patients with mechanical heart valves.CALCIUM, [id number] 03:40:00 Test Item Value Reference Range Comments CALCIUM IONIZED (BEAKER) (test cjbf=577) 1.10 mmol/L 1.12-1.27 PH, BLOOD (AKER) (test soco=5830) 7.46 POCT-GLUCOSE [id number] 00:37:00 Test Item Value Reference Range Comments POC-GLUCOSE METER (BEAKER) 196 mg/dL 70-110 TESTED AT [address] (test vmjc=2875) [place] [address] POCT-GLUCOSE [id number] 20:45:00 Test Item Value Reference Range Comments POC-GLUCOSE METER (BEAKER) 183 mg/dL 70-110 TESTED AT [address] (test qbmj=5501) [place] [address] POCT-GLUCOSE [id number] 17:50:00 Test Item Value Reference Range Comments POC-GLUCOSE METER (BEAKER) 216 mg/dL 70-110 TESTED AT [address] (test flcn=7418) [place] [address] CBC W/PLT COUNT & AUTO [id number] 15:43:00 Test Item Value Reference Range Comments WHITE BLOOD CELL COUNT (BEAKER) (test uydz=227) 10.0 K/ L 3.5-10.5 RED BLOOD CELL COUNT (BEAKER) (test bxzz=852) 3.41 M/ L 4.63-6.08 HEMOGLOBIN (BEAKER) (test zxmr=912) 9.8 GM/DL 13.7-17.5 HEMATOCRIT (BEAKER) (test zkah=905) 31.8 % 40.1-51.0 MEAN CORPUSCULAR VOLUME (BEAKER) (test woeg=132) 93.3 fL 79.0-92.2 MEAN CORPUSCULAR HEMOGLOBIN (BEAKER) (test 28.7 pg 25.7-32.2 daop=809) MEAN CORPUSCULAR HEMOGLOBIN CONC (BEAKER) (test 30.8 GM/DL 32.3-36.5 kvna=073) RED CELL DISTRIBUTION WIDTH (BEAKER) (test 14.3 % 11.6-14.4 ospo=318) PLATELET COUNT (BEAKER) (test qebu=630) 383 K/CU MM 150-450 MEAN PLATELET VOLUME (BEAKER) (test kwmn=365) 9.8 fL 9.4-12.4 NUCLEATED RED BLOOD CELLS (BEAKER) (test 0 /100 WBC 0-0 wsnp=062) NEUTROPHILS RELATIVE PERCENT (BEAKER) (test 77 % cxjf=125) LYMPHOCYTES RELATIVE PERCENT (BEAKER) (test 10 % dudv=839) MONOCYTES RELATIVE PERCENT (BEAKER) (test 7 % sjnn=107) EOSINOPHILS RELATIVE PERCENT (BEAKER) (test 4 % wgdf=071) BASOPHILS RELATIVE PERCENT (BEAKER) (test 0 % zfec=630) NEUTROPHILS ABSOLUTE COUNT (BEAKER) (test 7.65 K/ L 1.78-5.38 tgej=499) LYMPHOCYTES ABSOLUTE COUNT (BEAKER) (test 1.02 K/ L 1.32-3.57 mpvn=152) MONOCYTES ABSOLUTE COUNT (BEAKER) (test 0.74 K/ L 0.30-0.82 wohs=595) EOSINOPHILS ABSOLUTE COUNT (BEAKER) (test 0.36 K/ L 0.04-0.54 yscr=763) BASOPHILS ABSOLUTE COUNT (BEAKER) (test 0.04 K/ L 0.01-0.08 kdmd=809) IMMATURE GRANULOCYTES-RELATIVE PERCENT (BEAKER) 1 % 0-1 (test djla=5227) HEPARIN ASSAY - LOW MOLECULAR [id number] 14:36:00 Test Item Value Reference Range Comments LOVENOX-ANTI 10A (BEAKER) (test efuj=8545) 1.24 u/ml 0.60-2.00 Anti-Factor 10-A Level (Heparin Assay for Low Molecular Weight Heparin) Monitoring Guidelines: Blood samples should be obtained 4 hours post subcutaneous injection (time of Peak level) Therapeutic Peak Levels: 0.6-1.0 units/mL twice daily enoxaparin 1.0-2.0 units/mL once daily enoxaparinRef: CHEST 2012;141:[id number] 11:36:00 Test Item Value Reference Range Comments POC-GLUCOSE METER (BEAKER) 170 mg/dL 70-110 TESTED AT [place] [id number] [facility] (test baar=9110) [facility] [address] BLOOD [id number] 10:00:00 Test Item Value Reference Range Comments CULTURE (BEAKER) (test ufcu=7201) No growth in 5 days RAD, CHEST, 1 VIEW, NON [id number] 08:20:00Reason for exam:-> IntubatedShould this be performed at the bedside?->YesFINAL REPORT HISTORY : Intubated. Comparison: 02/11/2017 Comment: Single portable view of the chest was obtained. The cardiac silhouette size is within normal limits. No pneumothorax is seen. There are findings of pulmonary venous congestion. Support lines and tubes are unchanged. There is a suspected small left-sided pleural effusion. There is some right basilar airspace disease/ consolidation that may represent atelectasis. Pneumonitis or aspiration cannot be excluded. Signed: Zoe Alonso Verified Date/Time: 02/12/2017 08:20 :14 Reading Location: [facility] [address] Radiology Reading Room POCT-GLUCOSE [id number] 06:21:00 Test Item Value Reference Range Comments POC-GLUCOSE METER (BEAKER) 195 mg/dL 70-110 TESTED AT [address] (test sfxv=5029) [facility] [address] CALCIUM, [id number] 05:49:00 Test Item Value Reference Range Comments CALCIUM IONIZED (BEAKER) (test aynh=555) 1.11 mmol/L 1.12-1.27 PH, BLOOD (BEAKER) (test jysg=5307) 7.45 [id number] 04:16:00 Test Item Value Reference Range Comments PHOSPHORUS (BEAKER) (test gafp=214) 2.9 mg/dL 2.3-4.7 [id number] 04:16:00 Test Item Value Reference Range Comments MAGNESIUM (BEAKER) (test hvdr=217) 2.0 mg/dL 1.6-2.6 BASIC METABOLIC [id number] 04:16:00 Test Item Value Reference Range Comments SODIUM (BEAKER) (test 143 meq/L 136-145 qeou=783) POTASSIUM (BEAKER) (test 4.6 meq/L 3.5-5.1 mgjg=096) CHLORIDE (BEAKER) (test 110 meq/L 98-107 jgff=031) CO2 (BEAKER) (test 24 meq/L 22-29 zpui=810) BLOOD UREA NITROGEN 28 mg/dL 7-21 (BEAKER) (test olmv=930) CREATININE (BEAKER) (test 0.87 mg/dL 0.57-1.25 nvhv=157) GLUCOSE RANDOM (BEAKER) 159 mg/dL 70-105 (test lwet=906) CALCIUM (BEAKER) (test 8.4 mg/dL 8.4-10.2 wmaw=030) EGFR (BEAKER) (test 90 mL/min/1.73 sq m ESTIMATED GFR IS NOT jjsx=6544) ACCURATE CREATININE CLEARANCE IN PREDICTING GLOMERULAR FILTRATION RATE. ESTIMATED GFR IS NOT APPLICABLE FOR DIALYSIS PATIENTS. PROTHROMBIN TIME/[id number] 04:06:00 Test Item Value Reference Range Comments PROTIME (BEAKER) (test rflz=216) 16.2 seconds 11.7-14.7 INR (BEAKER) (test dxvm=489) 1.3 <=5.9 RECOMMENDED COUMADIN/WARFARIN INR THERAPY RANGESSTANDARD DOSE: 2.0 - 3.0 Includes: PROPHYLAXIS forvenous thrombosis, systemic embolization; TREATMENT for venous thrombosis and/or pulmonary embolus.HIGH RISK: Target INR is 2.5-3.5 for patients with mechanical heart valves.POCT-GLUCOSE [id number] 23:43:00 Test Item Value Reference Range Comments POC-GLUCOSE METER (BEAKER) 113 mg/dL 70-110 TESTED AT [facility] [address] [facility] (test rxup=3552) [facility] [address] POCT-GLUCOSE [id number] 22:24:00 Test Item Value Reference Range Comments POC-GLUCOSE METER (BEAKER) 130 mg/dL 70-110 TESTED AT [facility] [address] [facility] (test qxfa=5501) [facility] [address] POCT-GLUCOSE [id number] 17:28:00 Test Item Value Reference Range Comments POC-GLUCOSE METER (BEAKER) 130 mg/dL 70-110 TESTED AT [address] (test gtsk=5183) [facility] [address] POCT-GLUCOSE [id number] 11:32:00 Test Item Value Reference Range Comments POC-GLUCOSE METER (BEAKER) 159 mg/dL 70-110 TESTED AT [address] (test vubw=5291) [facility] [address] CALCIUM, [id number] 07:42:00 Test Item Value Reference Range Comments CALCIUM IONIZED (BEAKER) (test ezvo=559) 1.13 mmol/L 1.12-1.27 PH, BLOOD (BEAKER) (test lxbr=5388) 7.43 [id number] 06:30:00 Test Item Value Reference Range Comments PHOSPHORUS (BEAKER) (test txkr=072) 2.7 mg/dL 2.3-4.7 [id number] 06:30:00 Test Item Value Reference Range Comments MAGNESIUM (BEAKER) (test wdnb=717) 1.9 mg/dL 1.6-2.6 BASIC METABOLIC [id number] 06:30:00 Test Item Value Reference Range Comments SODIUM (BEAKER) (test 144 meq/L 136-145 bikl=514) POTASSIUM (BEAKER) (test 4.4 meq/L 3.5-5.1 eaoz=788) CHLORIDE (BEAKER) (test 110 meq/L 98-107 rrvh=485) CO2 (BEAKER) (test 26 meq/L 22-29 gtve=631) BLOOD UREA NITROGEN 27 mg/dL 7-21 (BEAKER) (test amxw=196) CREATININE (BEAKER) (test 0.87 mg/dL 0.57-1.25 pyaq=509) GLUCOSE RANDOM (BEAKER) 176 mg/dL 70-105 (test pypz=465) CALCIUM (BEAKER) (test 8.3 mg/dL 8.4-10.2 cyfb=382) EGFR (BEAKER) (test 90 mL/min/1.73 sq m ESTIMATED GFR IS NOT flck=8857) ACCURATE CREATININE CLEARANCE IN PREDICTING GLOMERULAR FILTRATION RATE. ESTIMATED GFR IS NOT APPLICABLE FOR DIALYSIS PATIENTS. CBC W/PLT COUNT & AUTO [id number] 05:59:00 Test Item Value Reference Range Comments WHITE BLOOD CELL COUNT (BEAKER) (test zppo=459) 7.8 K/ L 3.5-10.5 RED BLOOD CELL COUNT (BEAKER) (test hmvw=179) 3.32 M/ L 4.63-6.08 HEMOGLOBIN (BEAKER) (test igsv=627) 9.4 GM/DL 13.7-17.5 HEMATOCRIT (BEAKER) (test jxtu=502) 30.8 % 40.1-51.0 MEAN CORPUSCULAR VOLUME (BEAKER) (test ojgf=674) 92.8 fL 79.0-92.2 MEAN CORPUSCULAR HEMOGLOBIN (BEAKER) (test 28.3 pg 25.7-32.2 mhzv=339) MEAN CORPUSCULAR HEMOGLOBIN CONC (BEAKER) (test 30.5 GM/DL 32.3-36.5 fqmu=844) RED CELL DISTRIBUTION WIDTH (BEAKER) (test 14.3 % 11.6-14.4 nmkj=697) PLATELET COUNT (BEAKER) (test befj=627) 355 K/CU MM 150-450 MEAN PLATELET VOLUME (BEAKER) (test tuyv=807) 10.4 fL 9.4-12.4 NUCLEATED RED BLOOD CELLS (BEAKER) (test 0 /100 WBC 0-0 vlmd=329) NEUTROPHILS RELATIVE PERCENT (BEAKER) (test 76 % xzon=244) LYMPHOCYTES RELATIVE PERCENT (BEAKER) (test 11 % ktec=933) MONOCYTES RELATIVE PERCENT (BEAKER) (test 8 % awwn=625) EOSINOPHILS RELATIVE PERCENT (BEAKER) (test 4 % uogu=849) BASOPHILS RELATIVE PERCENT (BEAKER) (test 1 % buwx=403) NEUTROPHILS ABSOLUTE COUNT (BEAKER) (test 5.90 K/ L 1.78-5.38 jqyf=357) LYMPHOCYTES ABSOLUTE COUNT (BEAKER) (test 0.82 K/ L 1.32-3.57 ketn=897) MONOCYTES ABSOLUTE COUNT (BEAKER) (test 0.63 K/ L 0.30-0.82 ziyr=893) EOSINOPHILS ABSOLUTE COUNT (BEAKER) (test 0.30 K/ L 0.04-0.54 oigi=758) BASOPHILS ABSOLUTE COUNT (BEAKER) (test 0.05 K/ L 0.01-0.08 fvuo=589) IMMATURE GRANULOCYTES-RELATIVE PERCENT (BEAKER) 1 % 0-1 (test rbrs=1327) PROTHROMBIN [id number] 05:47:00 Test Item Value Reference Range Comments PROTIME (BEAKER) (test swoq=535) 21.0 seconds 11.7-14.7 INR (BEAKER) (test syie=339) 1.8 <=5.9 RECOMMENDED COUMADIN/WARFARIN INR THERAPY RANGESSTANDARD DOSE: 2.0 - 3.0 Includes: PROPHYLAXIS forvenous thrombosis, systemic embolization; TREATMENT for venous thrombosis and/or pulmonary embolus.HIGH RISK: Target INR is 2.5-3.5 for patients with mechanical heart valves.RAD, CHEST, 1 VIEW, NON [id number] 04:14:00Reason for exam:->IntubatedShould this be performed at the bedside ?->YesFINAL REPORT RAD, CHEST, 1 VIEW, NON DEPT INDICATION: Intubated COMPARISON: Prior day's exam FINDINGS: Portable frontal view of the chest. IMPRESSION: Support Lines: Stable. Lungs and pleura: Low lung volumes with subsegmental atelectasis and central vascular crowding. No lobar consolidation. No pneumothorax.Heart and mediastinum: Stable contours. Additional findings: None. Signed: JR Nguyen Robert MDReport Verified Date/Time: 02/11/2017 04:14:25 Reading Location: [facility] C013Y CT Body Reading Room POCT-GLUCOSE [id number] 22:39:00 Test Item Value Reference Range Comments POC-GLUCOSE METER (BEAKER) 140 mg/dL 70-110 TESTED AT [facility] [address] [facility] (test tdtf=8797) [facility] [address] CT, [id number] 20:17:00Will need PO contrastFINAL REPORT CLINICAL HISTORY: Sepsis FINDINGS: Multiple axial images of theabdomen and pelvis were performed after the uncomplicated administration of IV contrast. Oral contrast was given. This exam was performed according to our departmental dose-optimization program, whichincludes automated exposure control , adjustment of the mA and/or kV according to patient size and/oruse of the iterative reconstruction technique. Comparison: 01/31/2017 Lower chest: Small bilateral pleural effusions with adjacent atelectasis versus pneumonitis. No pneumothorax. Atherosclerotic coronary artery calcifications. Liver: Subcapsular fluid collection at the posterior and inferior right liver measuring 4.7 x 2.1 cm in cross-sectional dimension Gallbladder and biliary tree : High density in the dependent gallbladder lumen, probably excreted IV contrast Spleen: Perisplenic, loculated fluid collection surrounding majority of the spleen Adrenal Glands: No significant findings. Kidneys and ureters: 1.5 cm hypodensity in the right renal midpole Stomach and Duodenum: Feeding tube tip in the duodenum Pancreas: No significant findings. Bowel: Right lower quadrant ostomy. Redemonstrated complex pelvic fluid collection adjacent to anastomotic suture line, on today's examination difficult to discriminate between intraluminal extraluminal material. The total cross-sectional dimension is 8.0 x 7.5 cm. No evidence of bowel obstruction. Appendix: Normal. Bladder : Decompressed with a Malhotra catheter Major vascular structures: Atherosclerotic calcifications Reproductive organs: No significant findings. Other: Several rim- enhancing fluid collections. A collection in the small bowel mesentery measures 5.0 x 2.5 cm, similar to previous. A right lateral abdominal fluid collection measures 3.5 x 2.7 cm in maximum cross-sectional dimension. An apparent extraluminal fluid collection in the left posterior parasagittal mid abdomen measures 3.2 x 2.9 cm. A surgical drain is adjacent. A subcutaneous rim- enhancing fluid collection measures 5.0 x 1.3 cm. There is an open midline surgical incision packed with gauze. Subcutaneous gas is inferior to the right lower quadrant ostomy. No free air, fluid or adenopathy Skeleton: No acute bony abnormality. IMPRESSION: Multiple intra-abdominal fluid collections concerning for abscesses, as described. Additionally, there is a redemonstrated subcutaneous rim-enhancing fluid collection in the right anterior abdominal wall. Small bilateral pleural effusions and adjacent atelectasis versus pneumonitis. Signed: Nilesh Sheets MDReport Verified Date/Time: 02/10/2017 20: 17:54 Reading Location: [address] Reading Room SPUTUM CULTURE + GRAM [id number] 19:37:00 Test Item Value Reference Range Comments CULTURE (BEAKER) (test aluc=6374) No growth GRAM STAIN RESULT (BEAKER) (test 1+ WBCs bskn=2830) GRAM STAIN RESULT (BEAKER) (test 10-15 epithelial cells rlnj=48542) GRAM STAIN RESULT (BEAKER) (test 1+ gram positive rods bnum=21740) GRAM STAIN RESULT (BEAKER) (test <1+ budding yeast maqz=913020) POCT-GLUCOSE [id number] 18:10:00 Test Item Value Reference Range Comments POC-GLUCOSE METER (BEAKER) 135 mg/dL 70-110 TESTED AT [address] (test nshv=3960) [place] [address] URINE [id number] 13:18:00 Test Item Value Reference Range Comments CULTURE (BEAKER) (test uaka=8538) No growth POCT-GLUCOSE [id number] 12:21:00 Test Item Value Reference Range Comments POC-GLUCOSE METER (BEAKER) 252 mg/dL 70-110 TESTED AT [address] (test wqxm=9450) [place] [id number] POCT-GLUCOSE [id number] 05:16:00 Test Item Value Reference Range Comments POC-GLUCOSE METER (BEAKER) 155 mg/dL 70-110 TESTED AT [address] (test ihjd=3485) [place] [id number] POCT-GLUCOSE [id number] 05:16:00 Test Item Value Reference Range Comments POC-GLUCOSE METER (BEAKER) 169 mg/dL 70-110 TESTED AT [address] (test xmdz=6767) [place] [address] POCT-GLUCOSE [id number] 04:39:00 Test Item Value Reference Range Comments POC-GLUCOSE METER (BEAKER) 151 mg/dL 70-110 TESTED AT [address] (test zppe=7600) [place] [id number] RAD, CHEST, 1 VIEW, NON [id number] 04:00:00Reason for exam:-> IntubatedShould this be performed at the bedside?->YesFINAL REPORT CLINICAL INDICATION: Support lines. Comparison: 02/09/2017 The cardiomediastinal contours are stable. The lung volumes remain low. Central pulmonary vascular congestion and bilateral parenchymal opacities are unchanged. There is no pneumothorax. Support lines are stable. Signed: Nilesh Sheets MDReport Verified Date/Time: 02/10/2017 04:00:58 Reading Location: [address] Reading Room CALCIUM, [id number] 03:45:00 Test Item Value Reference Range Comments CALCIUM IONIZED (BEAKER) (test kckd=067) 1.09 mmol/L 1.12-1.27 PH, BLOOD (BEAKER) (test pkxu=5251) 7.49 PROTHROMBIN [id number] 03:22:00 Test Item Value Reference Range Comments PROTIME (BEAKER) (test uuit=740) 16.3 seconds 11.7-14.7 INR (BEAKER) (test mzfb=071) 1.3 <=5.9 RECOMMENDED COUMADIN/WARFARIN INR THERAPY RANGESSTANDARD DOSE: 2.0 - 3.0 Includes: PROPHYLAXIS forvenous thrombosis, systemic embolization; TREATMENT for venous thrombosis and/or pulmonary embolus.HIGH RISK: Target INR is 2.5-3.5 for patients with mechanical heart valves.[id number] 03:19:00 Test Item Value Reference Range Comments PHOSPHORUS (BEAKER) (test uhnc=800) 2.8 mg/dL 2.3-4.7 [id number] 03:19:00 Test Item Value Reference Range Comments MAGNESIUM (BEAKER) (test zwrn=991) 2.0 mg/dL 1.6-2.6 BASIC METABOLIC [id number] 03:19:00 Test Item Value Reference Range Comments SODIUM (BEAKER) (test 145 meq/L 136-145 qvvt=203) POTASSIUM (BEAKER) (test 4.6 meq/L 3.5-5.1 skbr=535) CHLORIDE (BEAKER) (test 114 meq/L 98-107 qmys=928) CO2 (BEAKER) (test 25 meq/L 22-29 cgqv=102) BLOOD UREA NITROGEN 25 mg/dL 7-21 (BEAKER) (test zwuu=776) CREATININE (BEAKER) (test 0.84 mg/dL 0.57-1.25 dtft=967) GLUCOSE RANDOM (BEAKER) 165 mg/dL 70-105 (test qxkt=369) CALCIUM (BEAKER) (test 8.2 mg/dL 8.4-10.2 fwzh=214) EGFR (BEAKER) (test 94 mL/min/1.73 sq m ESTIMATED GFR IS NOT nwwc=0117) ACCURATE CREATININE CLEARANCE IN PREDICTING GLOMERULAR FILTRATION RATE. ESTIMATED GFR IS NOT APPLICABLE FOR DIALYSIS PATIENTS. CBC W/PLT COUNT & AUTO [id number] 03:09:00 Test Item Value Reference Range Comments WHITE BLOOD CELL COUNT (BEAKER) (test zfmr=626) 7.0 K/ L 3.5-10.5 RED BLOOD CELL COUNT (BEAKER) (test vupd=908) 3.14 M/ L 4.63-6.08 HEMOGLOBIN (BEAKER) (test cuit=151) 9.1 GM/DL 13.7-17.5 HEMATOCRIT (BEAKER) (test rkls=089) 29.1 % 40.1-51.0 MEAN CORPUSCULAR VOLUME (BEAKER) (test yyom=573) 92.7 fL 79.0-92.2 MEAN CORPUSCULAR HEMOGLOBIN (BEAKER) (test 29.0 pg 25.7-32.2 vccm=878) MEAN CORPUSCULAR HEMOGLOBIN CONC (BEAKER) (test 31.3 GM/DL 32.3-36.5 byyd=039) RED CELL DISTRIBUTION WIDTH (BEAKER) (test 14.6 % 11.6-14.4 whze=107) PLATELET COUNT (BEAKER) (test ppep=656) 339 K/CU MM 150-450 MEAN PLATELET VOLUME (BEAKER) (test glip=208) 10.3 fL 9.4-12.4 NUCLEATED RED BLOOD CELLS (BEAKER) (test 0 /100 WBC 0-0 runm=140) NEUTROPHILS RELATIVE PERCENT (BEAKER) (test 77 % mqlx=971) LYMPHOCYTES RELATIVE PERCENT (BEAKER) (test 10 % nzev=808) MONOCYTES RELATIVE PERCENT (BEAKER) (test 9 % wpwj=807) EOSINOPHILS RELATIVE PERCENT (BEAKER) (test 3 % apwd=727) BASOPHILS RELATIVE PERCENT (BEAKER) (test 0 % foof=556) NEUTROPHILS ABSOLUTE COUNT (BEAKER) (test 5.41 K/ L 1.78-5.38 bbge=216) LYMPHOCYTES ABSOLUTE COUNT (BEAKER) (test 0.71 K/ L 1.32-3.57 iwjq=431) MONOCYTES ABSOLUTE COUNT (BEAKER) (test 0.59 K/ L 0.30-0.82 ttym=210) EOSINOPHILS ABSOLUTE COUNT (BEAKER) (test 0.20 K/ L 0.04-0.54 voaj=802) BASOPHILS ABSOLUTE COUNT (BEAKER) (test 0.02 K/ L 0.01-0.08 vgms=948) IMMATURE GRANULOCYTES-RELATIVE PERCENT (BEAKER) 1 % 0-1 (test vgsg=2902) POCT-GLUCOSE [id number] 17:14:00 Test Item Value Reference Range Comments POC-GLUCOSE METER (BEAKER) 169 mg/dL 70-110 TESTED AT [address] (test pmsi=1680) [place] [id number] POCT-GLUCOSE [id number] 11:21:00 Test Item Value Reference Range Comments POC-GLUCOSE METER (BEAKER) 190 mg/dL 70-110 TESTED AT [address] (test gaia=2058) [facility] [address] POCT-GLUCOSE [id number] 08:18:00 Test Item Value Reference Range Comments POC-GLUCOSE METER (BEAKER) 216 mg/dL 70-110 TESTED AT [address] (test bwfw=3942) [facility] [address] POCT-GLUCOSE [id number] 07:59:00 Test Item Value Reference Range Comments POC-GLUCOSE METER (BEAKER) 119 mg/dL 70-110 TESTED AT [address] (test eram=9575) [facility] [address] POCT-GLUCOSE [id number] 07:59:00 Test Item Value Reference Range Comments POC-GLUCOSE METER (BEAKER) 117 mg/dL 70-110 TESTED AT [address] (test sdnf=1369) [facility] [address] RAD, CHEST, 1 VIEW, NON [id number] 05:04:00Reason for exam:-> IntubatedShould this be performed at the bedside?->YesFINAL REPORT RAD, CHEST, 1 VIEW, NON DEPT INDICATION: Intubated COMPARISON: Prior day's exam FINDINGS: Portable frontal view of the chest. IMPRESSION: Limited by underpenetration.Support Lines: Stable. Lungs and pleura: Multifocal subsegmental atelectasis. No lobar airspace disease. No pneumothorax.Heart and mediastinum: Unchanged appearance of the mediastinal contours.Additional findings: None. Signed: JR Nguyen Robert MDReport Verified Date/Time: 02/09/2017 05:04:45 Reading Location: [facility] B1 C013Y [address] Body Reading Room CALCIUM, [id number] 04:43:00 Test Item Value Reference Range Comments CALCIUM IONIZED (BEAKER) (test zpae=140) 1.06 mmol/L 1.12-1.27 PH, BLOOD (BEAKER) (test qahc=0507) 7.50 [id number] 04:24:00 Test Item Value Reference Range Comments PHOSPHORUS (BEAKER) (test bsyh=449) 2.3 mg/dL 2.3-4.7 [id number] 04:24:00 Test Item Value Reference Range Comments MAGNESIUM (BEAKER) (test mjjr=109) 2.1 mg/dL 1.6-2.6 BASIC METABOLIC [id number] 04:24:00 Test Item Value Reference Range Comments SODIUM (BEAKER) (test 148 meq/L 136-145 ktyx=520) POTASSIUM (BEAKER) (test 4.4 meq/L 3.5-5.1 qehp=584) CHLORIDE (BEAKER) (test 117 meq/L 98-107 maoj=235) CO2 (BEAKER) (test 23 meq/L 22-29 hemg=832) BLOOD UREA NITROGEN 26 mg/dL 7-21 (BEAKER) (test rkkn=226) CREATININE (BEAKER) (test 0.82 mg/dL 0.57-1.25 eglx=017) GLUCOSE RANDOM (BEAKER) 137 mg/dL 70-105 (test acei=356) CALCIUM (BEAKER) (test 8.0 mg/dL 8.4-10.2 gbgw=585) EGFR (BEAKER) (test 96 mL/min/1.73 sq m ESTIMATED GFR IS NOT xtlo=8905) ACCURATE CREATININE CLEARANCE IN PREDICTING GLOMERULAR FILTRATION RATE. ESTIMATED GFR IS NOT APPLICABLE FOR DIALYSIS PATIENTS. CBC W/PLT COUNT & AUTO [id number] 04:12:00 Test Item Value Reference Range Comments WHITE BLOOD CELL COUNT (BEAKER) (test oxzt=830) 7.7 K/ L 3.5-10.5 RED BLOOD CELL COUNT (BEAKER) (test kzqm=671) 3.21 M/ L 4.63-6.08 HEMOGLOBIN (BEAKER) (test ctbu=884) 9.4 GM/DL 13.7-17.5 HEMATOCRIT (BEAKER) (test jqzk=923) 30.0 % 40.1-51.0 MEAN CORPUSCULAR VOLUME (BEAKER) (test rgfc=644) 93.5 fL 79.0-92.2 MEAN CORPUSCULAR HEMOGLOBIN (BEAKER) (test 29.3 pg 25.7-32.2 bxqj=652) MEAN CORPUSCULAR HEMOGLOBIN CONC (BEAKER) (test 31.3 GM/DL 32.3-36.5 cffb=897) RED CELL DISTRIBUTION WIDTH (BEAKER) (test 14.8 % 11.6-14.4 fdpp=012) PLATELET COUNT (BEAKER) (test wjke=596) 385 K/CU MM 150-450 MEAN PLATELET VOLUME (BEAKER) (test ysix=211) 10.2 fL 9.4-12.4 NUCLEATED RED BLOOD CELLS (BEAKER) (test 0 /100 WBC 0-0 ceyr=818) NEUTROPHILS RELATIVE PERCENT (BEAKER) (test 76 % udqx=551) LYMPHOCYTES RELATIVE PERCENT (BEAKER) (test 11 % wobj=034) MONOCYTES RELATIVE PERCENT (BEAKER) (test 9 % hufm=190) EOSINOPHILS RELATIVE PERCENT (BEAKER) (test 3 % tqmz=324) BASOPHILS RELATIVE PERCENT (BEAKER) (test 0 % gwzs=750) NEUTROPHILS ABSOLUTE COUNT (BEAKER) (test 5.89 K/ L 1.78-5.38 evsk=192) LYMPHOCYTES ABSOLUTE COUNT (BEAKER) (test 0.83 K/ L 1.32-3.57 oxti=819) MONOCYTES ABSOLUTE COUNT (BEAKER) (test 0.70 K/ L 0.30-0.82 gair=168) EOSINOPHILS ABSOLUTE COUNT (BEAKER) (test 0.23 K/ L 0.04-0.54 flcf=253) BASOPHILS ABSOLUTE COUNT (BEAKER) (test 0.01 K/ L 0.01-0.08 kdiz=197) IMMATURE GRANULOCYTES-RELATIVE PERCENT (BEAKER) 1 % 0-1 (test nqov=7642) PROTHROMBIN [id number] 04:06:00 Test Item Value Reference Range Comments PROTIME (BEAKER) (test zwqk=450) 17.1 seconds 11.7-14.7 INR (BEAKER) (test bnot=397) 1.4 <=5.9 RECOMMENDED COUMADIN/WARFARIN INR THERAPY RANGESSTANDARD DOSE: 2.0 - 3.0 Includes: PROPHYLAXIS forvenous thrombosis, systemic embolization; TREATMENT for venous thrombosis and/or pulmonary embolus.HIGH RISK: Target INR is 2.5-3.5 for patients with mechanical heart valves.POCT-GLUCOSE [id number] 03:44:00 Test Item Value Reference Range Comments POC-GLUCOSE METER (BEAKER) 136 mg/dL 70-110 TESTED AT [address] (test wzqz=0051) [place] [id number] POCT-GLUCOSE [id number] 20:12:00 Test Item Value Reference Range Comments POC-GLUCOSE METER (BEAKER) 127 mg/dL 70-110 TESTED AT [address] (test jeid=7267) [place] [id number] POCT-GLUCOSE [id number] 17:44:00 Test Item Value Reference Range Comments POC-GLUCOSE METER (BEAKER) 128 mg/dL 70-110 TESTED AT [address] (test aevj=4459) [place] [id number] POCT-GLUCOSE [id number] 12:19:00 Test Item Value Reference Range Comments POC-GLUCOSE METER (BEAKER) 175 mg/dL 70-110 TESTED AT [address] (test asqk=4788) [place] [id number] POCT-GLUCOSE [id number] 12:18:00 Test Item Value Reference Range Comments POC-GLUCOSE METER (BEAKER) 150 mg/dL 70-110 TESTED AT [address] (test ksvb=6472) [place] [id number] OCCULT BLOOD, [id number] 08:45:00 Test Item Value Reference Range Comments FECAL OCCULT BLOOD (BEAKER) (test qtih=656) Negative Negative CALCIUM, [id number] 05:59:00 Test Item Value Reference Range Comments CALCIUM IONIZED (BEAKER) (test gveb=677) 1.11 mmol/L 1.12-1.27 PH, BLOOD (BEAKER) (test sjap=8245) 7.49 POCT-GLUCOSE [id number] 05:53:00 Test Item Value Reference Range Comments POC-GLUCOSE METER (BEAKER) 137 mg/dL 70-110 TESTED AT [facility] [address] [facility] (test jhfa=3708) [place] [address] URINALYSIS W/ [id number] 05:36:00 Test Item Value Reference Range Comments COLOR (BEAKER) (test rffi=231) Yellow CLARITY (BEAKER) (test bbjv=414) Clear SPECIFIC GRAVITY UA (BEAKER) (test ffyi=281) 1.016 1.001-1.035 PH UA (BEAKER) (test zdmj=436) 6.5 5.0-8.0 PROTEIN UA (BEAKER) (test jiaj=884) 50 mg/dL Negative GLUCOSE UA (BEAKER) (test trzd=596) Negative Negative KETONES UA (BEAKER) (test ydku=183) Negative Negative BILIRUBIN UA (BEAKER) (test qeny=197) Negative Negative BLOOD UA (BEAKER) (test oter=792) Moderate Negative NITRITE UA (BEAKER) (test wnsv=242) Negative Negative LEUKOCYTE ESTERASE UA (BEAKER) (test yojj=937) Negative Negative UROBILINOGEN UA (BEAKER) (test qixa=111) 0.2 mg/dL 0.2-1.0 RBC UA (BEAKER) (test lxcd=639) 2 /HPF WBC UA (BEAKER) (test wjzq=305) < /HPF SQUAMOUS EPITHELIAL (BEAKER) (test mztt=033) < /HPF AMORPHOUS CRYSTALS (BEAKER) (test fies=2577) Occasional SOURCE(BEAKER) (test mffn=3584) Urine, Malhotra RAD, CHEST, 1 VIEW, NON [id number] 04:44:00Reason for exam:-> IntubatedShould this be performed at the bedside?->YesFINAL REPORT CLINICAL INDICATION: Support lines. Comparison: 02/07/2017 The patient is rotated to the left. The cardiomediastinal contours are grossly stable. The lung volumes remain low. Central pulmonary vascular congestion and bilateral parenchymal opacities are similar to previous. There is no pneumothorax. Support lines are stable. Signed: Nilesh Sheets MDReport Verified Date/Time: 02/08/2017 04:44:14 Reading Location: [address] Reading Room [id number] 04:36:00 Test Item Value Reference Range Comments PHOSPHORUS (BEAKER) (test tjfb=104) 2.2 mg/dL 2.3-4.7 [id number] 04:36:00 Test Item Value Reference Range Comments MAGNESIUM (BEAKER) (test lzcr=932) 2.2 mg/dL 1.6-2.6 BASIC METABOLIC [id number] 04:36:00 Test Item Value Reference Range Comments SODIUM (BEAKER) (test 148 meq/L 136-145 upef=624) POTASSIUM (BEAKER) (test 4.4 meq/L 3.5-5.1 vrhe=787) CHLORIDE (BEAKER) (test 117 meq/L 98-107 legi=743) CO2 (BEAKER) (test 24 meq/L 22-29 dzkr=937) BLOOD UREA NITROGEN 28 mg/dL 7-21 (BEAKER) (test bslm=597) CREATININE (BEAKER) (test 0.84 mg/dL 0.57-1.25 uvex=250) GLUCOSE RANDOM (BEAKER) 139 mg/dL 70-105 (test tqfv=100) CALCIUM (BEAKER) (test 7.9 mg/dL 8.4-10.2 omxf=740) EGFR (BEAKER) (test 94 mL/min/1.73 sq m ESTIMATED GFR IS NOT ibwp=2944) ACCURATE CREATININE CLEARANCE IN PREDICTING GLOMERULAR FILTRATION RATE. ESTIMATED GFR IS NOT APPLICABLE FOR DIALYSIS PATIENTS. PROTHROMBIN [id number] 04:10:00 Test Item Value Reference Range Comments PROTIME (BEAKER) (test jqse=872) 15.7 seconds 11.7-14.7 INR (BEAKER) (test fysr=390) 1.3 <=5.9 RECOMMENDED COUMADIN/WARFARIN INR THERAPY RANGESSTANDARD DOSE: 2.0 - 3.0 Includes: PROPHYLAXIS forvenous thrombosis, systemic embolization; TREATMENT for venous thrombosis and/or pulmonary embolus.HIGH RISK: Target INR is 2.5-3.5 for patients with mechanical heart valves.CBC W/PLT COUNT & AUTO [id number] 04:01:00 Test Item Value Reference Range Comments WHITE BLOOD CELL COUNT (BEAKER) (test olvc=787) 8.9 K/ L 3.5-10.5 RED BLOOD CELL COUNT (BEAKER) (test goyt=577) 3.26 M/ L 4.63-6.08 HEMOGLOBIN (BEAKER) (test wxdw=885) 9.4 GM/DL 13.7-17.5 HEMATOCRIT (BEAKER) (test mhbg=382) 30.5 % 40.1-51.0 MEAN CORPUSCULAR VOLUME (BEAKER) (test fyno=631) 93.6 fL 79.0-92.2 MEAN CORPUSCULAR HEMOGLOBIN (BEAKER) (test 28.8 pg 25.7-32.2 pjrt=698) MEAN CORPUSCULAR HEMOGLOBIN CONC (BEAKER) (test 30.8 GM/DL 32.3-36.5 ulqy=891) RED CELL DISTRIBUTION WIDTH (BEAKER) (test 15.0 % 11.6-14.4 przr=998) PLATELET COUNT (BEAKER) (test glqy=416) 387 K/CU MM 150-450 MEAN PLATELET VOLUME (BEAKER) (test khxx=196) 10.5 fL 9.4-12.4 NUCLEATED RED BLOOD CELLS (BEAKER) (test 0 /100 WBC 0-0 zwkw=952) NEUTROPHILS RELATIVE PERCENT (BEAKER) (test 79 % idjj=966) LYMPHOCYTES RELATIVE PERCENT (BEAKER) (test 10 % fqfk=440) MONOCYTES RELATIVE PERCENT (BEAKER) (test 8 % ooza=623) EOSINOPHILS RELATIVE PERCENT (BEAKER) (test 2 % cive=046) BASOPHILS RELATIVE PERCENT (BEAKER) (test 0 % tqhg=499) NEUTROPHILS ABSOLUTE COUNT (BEAKER) (test 6.97 K/ L 1.78-5.38 tjoq=283) LYMPHOCYTES ABSOLUTE COUNT (BEAKER) (test 0.89 K/ L 1.32-3.57 awej=456) MONOCYTES ABSOLUTE COUNT (BEAKER) (test 0.71 K/ L 0.30-0.82 uqmx=370) EOSINOPHILS ABSOLUTE COUNT (BEAKER) (test 0.21 K/ L 0.04-0.54 spvc=093) BASOPHILS ABSOLUTE COUNT (BEAKER) (test 0.03 K/ L 0.01-0.08 wpdc=934) IMMATURE GRANULOCYTES-RELATIVE PERCENT (BEAKER) 1 % 0-1 (test amis=8297) POCT-GLUCOSE [id number] 00:10:00 Test Item Value Reference Range Comments POC-GLUCOSE METER (BEAKER) 140 mg/dL 70-110 TESTED AT [address] (test cznb=4347) [place] [address] OCCULT BLOOD, [id number] 22:02:00 Test Item Value Reference Range Comments FECAL OCCULT BLOOD (BEAKER) (test zwwl=249) Positive Negative POCT-GLUCOSE [id number] 21:32:00 Test Item Value Reference Range Comments POC-GLUCOSE METER (BEAKER) 124 mg/dL 70-110 TESTED AT [address] (test dris=4370) [place] [address] BLOOD [id number] 17:00:00 Test Item Value Reference Range Comments CULTURE (BEAKER) (test qpdw=0872) No growth in 5 days BLOOD [id number] 17:00:00 Test Item Value Reference Range Comments CULTURE (BEAKER) (test odnz=3829) No growth in 5 days POCT-GLUCOSE [id number] 16:03:00 Test Item Value Reference Range Comments POC-GLUCOSE METER (BEAKER) 163 mg/dL 70-110 TESTED AT [address] (test ylgr=4990) [place] [id number] POCT-GLUCOSE [id number] 12:20:00 Test Item Value Reference Range Comments POC-GLUCOSE METER (BEAKER) 274 mg/dL 70-110 TESTED AT [address] (test wpde=1023) [place] [address] POCT-GLUCOSE [id number] 10:37:00 Test Item Value Reference Range Comments POC-GLUCOSE METER (BEAKER) 249 mg/dL 70-110 TESTED AT [address] (test kdqe=2892) [facility] [address] CALCIUM, [id number] 05:51:00 Test Item Value Reference Range Comments CALCIUM IONIZED (BEAKER) (test zruu=941) 1.04 mmol/L 1.12-1.27 PH, BLOOD (BEAKER) (test zusl=3178) 7.45 POCT-GLUCOSE [id number] 05:38:00 Test Item Value Reference Range Comments POC-GLUCOSE METER (BEAKER) 205 mg/dL 70-110 TESTED AT [address] (test uyxo=5498) [facility] [address] BASIC METABOLIC [id number] 05:14:00 Test Item Value Reference Range Comments SODIUM (BEAKER) (test 149 meq/L 136-145 gamg=380) POTASSIUM (BEAKER) (test 4.3 meq/L 3.5-5.1 zhji=609) CHLORIDE (BEAKER) (test 118 meq/L 98-107 lcpx=588) CO2 (BEAKER) (test 24 meq/L 22-29 dhjq=637) BLOOD UREA NITROGEN 33 mg/dL 7-21 (BEAKER) (test czcx=847) CREATININE (BEAKER) (test 1.02 mg/dL 0.57-1.25 kpiy=795) GLUCOSE RANDOM (BEAKER) 233 mg/dL 70-105 (test jdik=191) CALCIUM (BEAKER) (test 7.7 mg/dL 8.4-10.2 eumq=186) EGFR (BEAKER) (test 75 mL/min/1.73 sq m ESTIMATED GFR IS NOT ysqf=2155) ACCURATE CREATININE CLEARANCE IN PREDICTING GLOMERULAR FILTRATION RATE. ESTIMATED GFR IS NOT APPLICABLE FOR DIALYSIS PATIENTS. [id number] 05:13:00 Test Item Value Reference Range Comments PHOSPHORUS (BEAKER) (test uscp=762) 2.2 mg/dL 2.3-4.7 [id number] 05:13:00 Test Item Value Reference Range Comments MAGNESIUM (BEAKER) (test inpu=016) 2.2 mg/dL 1.6-2.6 PROTHROMBIN [id number] 04:29:00 Test Item Value Reference Range Comments PROTIME (BEAKER) (test pdlg=024) 16.6 seconds 11.7-14.7 INR (BEAKER) (test uzip=308) 1.3 <=5.9 RECOMMENDED COUMADIN/WARFARIN INR THERAPY RANGESSTANDARD DOSE: 2.0 - 3.0 Includes: PROPHYLAXIS forvenous thrombosis, systemic embolization; TREATMENT for venous thrombosis and/or pulmonary embolus.HIGH RISK: Target INR is 2.5-3.5 for patients with mechanical heart valves.CBC W/PLT COUNT & AUTO [id number] 04:28:00 Test Item Value Reference Range Comments WHITE BLOOD CELL COUNT (BEAKER) (test esxk=795) 9.6 K/ L 3.5-10.5 RED BLOOD CELL COUNT (BEAKER) (test qcjy=760) 3.12 M/ L 4.63-6.08 HEMOGLOBIN (BEAKER) (test nako=948) 9.2 GM/DL 13.7-17.5 HEMATOCRIT (BEAKER) (test bgbe=664) 29.9 % 40.1-51.0 MEAN CORPUSCULAR VOLUME (BEAKER) (test qaef=417) 95.8 fL 79.0-92.2 MEAN CORPUSCULAR HEMOGLOBIN (BEAKER) (test 29.5 pg 25.7-32.2 agvq=304) MEAN CORPUSCULAR HEMOGLOBIN CONC (BEAKER) (test 30.8 GM/DL 32.3-36.5 yhlh=002) RED CELL DISTRIBUTION WIDTH (BEAKER) (test 15.2 % 11.6-14.4 mnrq=292) PLATELET COUNT (BEAKER) (test ftha=305) 376 K/CU MM 150-450 MEAN PLATELET VOLUME (BEAKER) (test fdbl=646) 10.7 fL 9.4-12.4 NUCLEATED RED BLOOD CELLS (BEAKER) (test 0 /100 WBC 0-0 iyfa=803) NEUTROPHILS RELATIVE PERCENT (BEAKER) (test 83 % tywy=297) LYMPHOCYTES RELATIVE PERCENT (BEAKER) (test 7 % ljvk=237) MONOCYTES RELATIVE PERCENT (BEAKER) (test 6 % qeyt=269) EOSINOPHILS RELATIVE PERCENT (BEAKER) (test 3 % hznj=855) BASOPHILS RELATIVE PERCENT (BEAKER) (test 0 % mnqy=409) NEUTROPHILS ABSOLUTE COUNT (BEAKER) (test 7.97 K/ L 1.78-5.38 nolt=963) LYMPHOCYTES ABSOLUTE COUNT (BEAKER) (test 0.71 K/ L 1.32-3.57 fyus=906) MONOCYTES ABSOLUTE COUNT (BEAKER) (test 0.62 K/ L 0.30-0.82 nebc=799) EOSINOPHILS ABSOLUTE COUNT (BEAKER) (test 0.25 K/ L 0.04-0.54 itil=998) BASOPHILS ABSOLUTE COUNT (BEAKER) (test 0.03 K/ L 0.01-0.08 sfoy=241) IMMATURE GRANULOCYTES-RELATIVE PERCENT (BEAKER) 1 % 0-1 (test xdrx=2428) POCT-GLUCOSE [id number] 03:51:00 Test Item Value Reference Range Comments POC-GLUCOSE METER (BEAKER) 252 mg/dL 70-110 TESTED AT [address] (test xyih=3824) [place] [address] POCT-GLUCOSE [id number] 03:51:00 Test Item Value Reference Range Comments POC-GLUCOSE METER (BEAKER) 215 mg/dL 70-110 TESTED AT [address] (test euvh=0760) [place] [address] RAD, CHEST, 1 VIEW, NON [id number] 03:34:00Reason for exam:-> IntubatedShould this be performed at the bedside?->YesFINAL REPORT CLINICAL INDICATION: Support lines. Comparison: 02/06/2017 The cardiomediastinal contours are stable. The lung volumes remain low. Central pulmonary vascular congestion and bilateral parenchymal opacities are similar to previous. There is no pneumothorax. Support lines are stable. Signed: Nilesh Sheets MDReport Verified Date/Time: 02/07/2017 03:34:27 Reading Location: [address] Reading Room POCT-GLUCOSE [id number] 23:16:00 Test Item Value Reference Range Comments POC-GLUCOSE METER (BEAKER) 154 mg/dL 70-110 TESTED AT [address] (test aqdg=8150) [place] [address] POCT-GLUCOSE [id number] 21:33:00 Test Item Value Reference Range Comments POC-GLUCOSE METER (BEAKER) 96 mg/dL 70-110 TESTED AT [address] (test zxsg=5348) [place] [address] POCT-GLUCOSE [id number] 20:08:00 Test Item Value Reference Range Comments POC-GLUCOSE METER (BEAKER) 113 mg/dL 70-110 TESTED AT [address] (test vria=5582) [facility] [address] POCT-GLUCOSE [id number] 18:24:00 Test Item Value Reference Range Comments POC-GLUCOSE METER (BEAKER) 107 mg/dL 70-110 TESTED AT [address] (test seeb=7579) [facility] [address] POCT-GLUCOSE [id number] 17:20:00 Test Item Value Reference Range Comments POC-GLUCOSE METER (BEAKER) 84 mg/dL 70-110 TESTED AT [address] (test dceh=9523) [facility] [address] POCT-GLUCOSE [id number] 16:09:00 Test Item Value Reference Range Comments POC-GLUCOSE METER (BEAKER) 80 mg/dL 70-110 TESTED AT [address] (test spxg=5230) [facility] [address] POCT-GLUCOSE [id number] 15:13:00 Test Item Value Reference Range Comments POC-GLUCOSE METER (BEAKER) 85 mg/dL 70-110 TESTED AT [address] (test tpbf=8313) [facility] [address] POCT-GLUCOSE [id number] 13:10:00 Test Item Value Reference Range Comments POC-GLUCOSE METER (BEAKER) 132 mg/dL 70-110 TESTED AT [address] (test xrjm=8707) [facility] [address] POCT-GLUCOSE [id number] 11:07:00 Test Item Value Reference Range Comments POC-GLUCOSE METER (BEAKER) 131 mg/dL 70-110 TESTED AT [address] (test bnrm=3946) [facility] [address] POCT-GLUCOSE [id number] 11:07:00 Test Item Value Reference Range Comments POC-GLUCOSE METER (BEAKER) 95 mg/dL 70-110 TESTED AT [address] (test qgkq=2014) [facility] [address] POCT-GLUCOSE [id number] 10:10:00 Test Item Value Reference Range Comments POC-GLUCOSE METER (BEAKER) 180 mg/dL 70-110 TESTED AT [place] [address] [facility] (test qvsf=9457) [facility] [address] POCT-GLUCOSE [id number] 07:08:00 Test Item Value Reference Range Comments POC-GLUCOSE METER (BEAKER) 129 mg/dL 70-110 TESTED AT [facility] [address] [facility] (test igii=9474) [facility] [address] CALCIUM, [id number] 05:12:00 Test Item Value Reference Range Comments CALCIUM IONIZED (BEAKER) (test bifh=374) 1.05 mmol/L 1.12-1.27 PH, BLOOD (BEAKER) (test kaij=5007) 7.52 CBC W/PLT COUNT & AUTO [id number] 05:12:00 Test Item Value Reference Range Comments WHITE BLOOD CELL COUNT (BEAKER) (test lidh=838) 10.6 K/ L 3.5-10.5 RED BLOOD CELL COUNT (BEAKER) (test okhz=334) 3.18 M/ L 4.63-6.08 HEMOGLOBIN (BEAKER) (test icrf=065) 9.4 GM/DL 13.7-17.5 HEMATOCRIT (BEAKER) (test laui=439) 30.5 % 40.1-51.0 MEAN CORPUSCULAR VOLUME (BEAKER) (test pnhs=336) 95.9 fL 79.0-92.2 MEAN CORPUSCULAR HEMOGLOBIN (BEAKER) (test 29.6 pg 25.7-32.2 srgj=563) MEAN CORPUSCULAR HEMOGLOBIN CONC (BEAKER) (test 30.8 GM/DL 32.3-36.5 fwef=510) RED CELL DISTRIBUTION WIDTH (BEAKER) (test 15.0 % 11.6-14.4 rqfd=240) PLATELET COUNT (BEAKER) (test nzmy=366) 425 K/CU MM 150-450 MEAN PLATELET VOLUME (BEAKER) (test grpm=532) 10.8 fL 9.4-12.4 NUCLEATED RED BLOOD CELLS (BEAKER) (test 0 /100 WBC 0-0 mrmn=138) NEUTROPHILS RELATIVE PERCENT (BEAKER) (test 84 % zcmg=531) LYMPHOCYTES RELATIVE PERCENT (BEAKER) (test 7 % qhxj=048) MONOCYTES RELATIVE PERCENT (BEAKER) (test 6 % ctpp=762) EOSINOPHILS RELATIVE PERCENT (BEAKER) (test 3 % eihc=702) BASOPHILS RELATIVE PERCENT (BEAKER) (test 0 % jslx=461) NEUTROPHILS ABSOLUTE COUNT (BEAKER) (test 8.81 K/ L 1.78-5.38 vzvj=337) LYMPHOCYTES ABSOLUTE COUNT (BEAKER) (test 0.69 K/ L 1.32-3.57 hqxu=951) MONOCYTES ABSOLUTE COUNT (BEAKER) (test 0.60 K/ L 0.30-0.82 rrrr=547) EOSINOPHILS ABSOLUTE COUNT (BEAKER) (test 0.34 K/ L 0.04-0.54 rals=685) BASOPHILS ABSOLUTE COUNT (BEAKER) (test 0.03 K/ L 0.01-0.08 onrx=463) IMMATURE GRANULOCYTES-RELATIVE PERCENT (BEAKER) 1 % 0-1 (test scct=0581) BASIC METABOLIC [id number] 05:10:00 Test Item Value Reference Range Comments SODIUM (BEAKER) (test 149 meq/L 136-145 yfnb=793) POTASSIUM (BEAKER) (test 3.9 meq/L 3.5-5.1 ryxv=236) CHLORIDE (BEAKER) (test 116 meq/L 98-107 kubg=782) CO2 (BEAKER) (test 26 meq/L 22-29 ifnj=678) BLOOD UREA NITROGEN 35 mg/dL 7-21 (BEAKER) (test cdsx=665) CREATININE (BEAKER) (test 0.92 mg/dL 0.57-1.25 ljgf=247) GLUCOSE RANDOM (BEAKER) 111 mg/dL 70-105 (test czjq=975) CALCIUM (BEAKER) (test 7.7 mg/dL 8.4-10.2 cwui=463) EGFR (BEAKER) (test 84 mL/min/1.73 sq m ESTIMATED GFR IS NOT rjcq=3386) ACCURATE CREATININE CLEARANCE IN PREDICTING GLOMERULAR FILTRATION RATE. ESTIMATED GFR IS NOT APPLICABLE FOR DIALYSIS PATIENTS. [id number] 05:07:00 Test Item Value Reference Range Comments PHOSPHORUS (BEAKER) (test rmgn=931) 2.1 mg/dL 2.3-4.7 [id number] 05:07:00 Test Item Value Reference Range Comments MAGNESIUM (BEAKER) (test rlma=729) 2.2 mg/dL 1.6-2.6 [id number] 05:03:00 Test Item Value Reference Range Comments PARTIAL THROMBOPLASTIN TIME (BEAKER) (test 52.1 seconds 22.5-36.0 ccsd=802) PROTHROMBIN [id number] 05:02:00 Test Item Value Reference Range Comments PROTIME (BEAKER) (test mdhk=796) 16.6 seconds 11.7-14.7 INR (BEAKER) (test vcqm=130) 1.4 <=5.9 RECOMMENDED COUMADIN/WARFARIN INR THERAPY RANGESSTANDARD DOSE: 2.0 - 3.0 Includes: PROPHYLAXIS forvenous thrombosis, systemic embolization; TREATMENT for venous thrombosis and/or pulmonary embolus.HIGH RISK: Target INR is 2.5-3.5 for patients with mechanical heart valves.POCT-GLUCOSE [id number] 04:10:00 Test Item Value Reference Range Comments POC-GLUCOSE METER (BEAKER) 112 mg/dL 70-110 TESTED AT [address] (test cbln=3759) [place] [address] RAD, CHEST, 1 VIEW, NON [id number] 03:41:00Reason for exam:-> IntubatedShould this be performed at the bedside?->YesFINAL REPORT CLINICAL INDICATION: Support lines. Comparison: 02/05/2017 The cardiomediastinal contours are stable. The lung volumes remain low. Central pulmonary vascular prominence and bilateral parenchymal opacities are unchanged. There is no pneumothorax. Support lines are stable. Signed: Nilesh Sheets Verified Date/Time: 02/06/2017 03:41:22 Reading Location: [address] Reading Room POCT-GLUCOSE [id number] 01:49:00 Test Item Value Reference Range Comments POC-GLUCOSE METER (BEAKER) 121 mg/dL 70-110 TESTED AT [address] (test gosz=3138) [place] [address] POCT-GLUCOSE [id number] 00:40:00 Test Item Value Reference Range Comments POC-GLUCOSE METER (BEAKER) 119 mg/dL 70-110 TESTED AT [address] (test xzlw=0812) [place] [address] POCT-GLUCOSE [id number] 23:53:00 Test Item Value Reference Range Comments POC-GLUCOSE METER (BEAKER) 131 mg/dL 70-110 TESTED AT [address] (test benr=4341) [facility] [address] POCT-GLUCOSE [id number] 20:41:00 Test Item Value Reference Range Comments POC-GLUCOSE METER (BEAKER) 142 mg/dL 70-110 TESTED AT [address] (test tfve=3429) [facility] [address] POCT-GLUCOSE [id number] 19:19:00 Test Item Value Reference Range Comments POC-GLUCOSE METER (BEAKER) 141 mg/dL 70-110 TESTED AT [address] (test wlzr=0959) [place] [address] POCT-GLUCOSE [id number] 17:42:00 Test Item Value Reference Range Comments POC-GLUCOSE METER (BEAKER) 134 mg/dL 70-110 TESTED AT [address] (test vudn=8141) [place] [address] POCT-GLUCOSE [id number] 15:23:00 Test Item Value Reference Range Comments POC-GLUCOSE METER (BEAKER) 124 mg/dL 70-110 TESTED AT [address] (test xats=5286) [place] [address] DIGOXIN [id number] 14:13:00 Test Item Value Reference Range Comments DIGOXIN LEVEL (BEAKER) (test dddv=487) 1.0 ng/mL 0.8-2.0 POCT-GLUCOSE [id number] 12:47:00 Test Item Value Reference Range Comments POC-GLUCOSE METER (BEAKER) 117 mg/dL 70-110 TESTED AT [address] (test ytjl=4036) [facility] [address] POCT-GLUCOSE [id number] 10:16:00 Test Item Value Reference Range Comments POC-GLUCOSE METER (BEAKER) 114 mg/dL 70-110 TESTED AT [address] (test ybmj=1194) [place] [id number] POCT-GLUCOSE [id number] 08:04:00 Test Item Value Reference Range Comments POC-GLUCOSE METER (BEAKER) 111 mg/dL 70-110 TESTED AT [address] (test oibd=7166) [place] [id number] CALCIUM, [id number] 06:47:00 Test Item Value Reference Range Comments CALCIUM IONIZED (BEAKER) (test uvwl=014) 1.06 mmol/L 1.12-1.27 PH, BLOOD (BEAKER) (test tvdx=6471) 7.51 POCT-GLUCOSE [id number] 06:34:00 Test Item Value Reference Range Comments POC-GLUCOSE METER (BEAKER) 147 mg/dL 70-110 TESTED AT [facility] [address] [facility] (test hlni=8130) [facility] [address] RAD, CHEST, 1 VIEW, NON [id number] 05:31:00Reason for exam:-> IntubatedShould this be performed at the bedside?->YesFINAL REPORT RAD, CHEST, 1 VIEW, NON DEPT INDICATION: Intubated COMPARISON: Prior day's exam FINDINGS: Portable frontal view of the chest. IMPRESSION: Limited by patient rotation.Support Lines: Endotracheal tube terminates 4 cm above the tiago. Left IJ central venous catheterterminates near the junction of the brachiocephalic vein and superior vena cava. Distal tips of enteric and feeding tubes are not visible. Lungs and pleura: Atelectatic changes on the left with associated umdko-ls-iknbnrwm pleural effusion. Focal airspace disease noted in the right parahilar region. No pneumothorax.Heart and mediastinum: Mediastinal contours are partially obscured and suboptimally evaluated.Additional findings: None. Signed: JR Nguyen Robert MDReport Verified Date/Time: 02/05/2017 05:31:31 Reading Location: [facility] C013Y CT Body Reading Room BASIC METABOLIC [id number] 05:17:00 Test Item Value Reference Range Comments SODIUM (BEAKER) (test 153 meq/L 136-145 vchd=734) POTASSIUM (BEAKER) (test 3.7 meq/L 3.5-5.1 wskc=691) CHLORIDE (BEAKER) (test 117 meq/L 98-107 eldk=926) CO2 (BEAKER) (test 29 meq/L 22-29 urra=089) BLOOD UREA NITROGEN 36 mg/dL 7-21 (BEAKER) (test bqga=157) CREATININE (BEAKER) (test 1.03 mg/dL 0.57-1.25 lvvd=563) GLUCOSE RANDOM (BEAKER) 141 mg/dL 70-105 (test izfc=592) CALCIUM (BEAKER) (test 7.7 mg/dL 8.4-10.2 okei=022) EGFR (BEAKER) (test 74 mL/min/1.73 sq m ESTIMATED GFR IS NOT jpsd=4026) ACCURATE CREATININE CLEARANCE IN PREDICTING GLOMERULAR FILTRATION RATE. ESTIMATED GFR IS NOT APPLICABLE FOR DIALYSIS PATIENTS. [id number] 04:54:00 Test Item Value Reference Range Comments PHOSPHORUS (BEAKER) (test kbbi=372) 2.2 mg/dL 2.3-4.7 [id number] 04:54:00 Test Item Value Reference Range Comments MAGNESIUM (BEAKER) (test pfxn=661) 2.5 mg/dL 1.6-2.6 [id number] 04:41:00 Test Item Value Reference Range Comments PARTIAL THROMBOPLASTIN TIME (BEAKER) (test 89.2 seconds 22.5-36.0 tiif=095) PROTHROMBIN [id number] 04:39:00 Test Item Value Reference Range Comments PROTIME (BEAKER) (test olgf=466) 16.8 seconds 11.7-14.7 INR (BEAKER) (test pjib=496) 1.4 <=5.9 RECOMMENDED COUMADIN/WARFARIN INR THERAPY RANGESSTANDARD DOSE: 2.0 - 3.0 Includes: PROPHYLAXIS forvenous thrombosis, systemic embolization; TREATMENT for venous thrombosis and/or pulmonary embolus.HIGH RISK: Target INR is 2.5-3.5 for patients with mechanical heart valves.CBC W/PLT COUNT & AUTO [id number] 04:35:00 Test Item Value Reference Range Comments WHITE BLOOD CELL COUNT (BEAKER) (test lexg=423) 14.8 K/ L 3.5-10.5 RED BLOOD CELL COUNT (BEAKER) (test wsnb=318) 3.40 M/ L 4.63-6.08 HEMOGLOBIN (BEAKER) (test lxqi=164) 9.8 GM/DL 13.7-17.5 HEMATOCRIT (BEAKER) (test tzgf=635) 32.5 % 40.1-51.0 MEAN CORPUSCULAR VOLUME (BEAKER) (test vkcu=866) 95.6 fL 79.0-92.2 MEAN CORPUSCULAR HEMOGLOBIN (BEAKER) (test 28.8 pg 25.7-32.2 elpv=011) MEAN CORPUSCULAR HEMOGLOBIN CONC (BEAKER) (test 30.2 GM/DL 32.3-36.5 zhof=929) RED CELL DISTRIBUTION WIDTH (BEAKER) (test 15.1 % 11.6-14.4 tdmc=681) PLATELET COUNT (BEAKER) (test rbwq=272) 443 K/CU MM 150-450 MEAN PLATELET VOLUME (BEAKER) (test zxuf=209) 10.7 fL 9.4-12.4 NUCLEATED RED BLOOD CELLS (BEAKER) (test 0 /100 WBC 0-0 ruhs=424) NEUTROPHILS RELATIVE PERCENT (BEAKER) (test 88 % jawf=925) LYMPHOCYTES RELATIVE PERCENT (BEAKER) (test 6 % fzlg=856) MONOCYTES RELATIVE PERCENT (BEAKER) (test 4 % mzdb=098) EOSINOPHILS RELATIVE PERCENT (BEAKER) (test 2 % qngl=367) BASOPHILS RELATIVE PERCENT (BEAKER) (test 0 % oele=805) NEUTROPHILS ABSOLUTE COUNT (BEAKER) (test 12.99 K/ L 1.78-5.38 ndzb=047) LYMPHOCYTES ABSOLUTE COUNT (BEAKER) (test 0.81 K/ L 1.32-3.57 bmbn=232) MONOCYTES ABSOLUTE COUNT (BEAKER) (test 0.60 K/ L 0.30-0.82 hmix=087) EOSINOPHILS ABSOLUTE COUNT (BEAKER) (test 0.24 K/ L 0.04-0.54 vsem=585) BASOPHILS ABSOLUTE COUNT (BEAKER) (test 0.03 K/ L 0.01-0.08 dbca=019) IMMATURE GRANULOCYTES-RELATIVE PERCENT (BEAKER) 1 % 0-1 (test uuxh=3525) U/S, ABDOMINAL, [id number] 04:24:00Abdomen limited area? Add comment if clarification is needed.->Gall Bladder Reason for exam:->r/o acute cholecystitis due to elevated wbc on TPNFINAL REPORT INDICATION: r/o acute cholecystitis due to elevated wbc on TPN COMPARISON: None TECHNIQUE: Real-time transabdominal kilgore scale and color Doppler ultrasound of the abdominal right upper quadrant. FINDINGS:Liver: Size: 15.6cm. Echogenicity: Increased.Masses/lesions: None. Surface Nodularity: None. Intrahepatic bile ducts: Normal. Common bile duct: 0.3cm. MPV: 1.1cm. Gallbladder: Stones: None. Sludge: None. Wall thickness: 0.3 cm. The gallbladder is nondistended. Pericholecystic fluid: None. Sonographic Chamberlain'ssign: Absent. Pancreas: Head and uncinate process: Unremarkable. [...] biliary ductal dilation. Signed: JR Nguyen Robert MDReport Verified Date/Time: 02/05/2017 04:24:48 Reading Location: [facility] B1 [id number] Body Reading Room POCT-GLUCOSE [id number] 04:08:00 Test Item Value Reference Range Comments POC-GLUCOSE METER (BEAKER) 139 mg/dL 70-110 TESTED AT [address] (test muvq=6389) [facility] [address] POCT-GLUCOSE [id number] 02:15:00 Test Item Value Reference Range Comments POC-GLUCOSE METER (BEAKER) 140 mg/dL 70-110 TESTED AT [address] (test dtni=6100) [facility] [address] POCT-GLUCOSE [id number] 00:41:00 Test Item Value Reference Range Comments POC-GLUCOSE METER (BEAKER) 135 mg/dL 70-110 TESTED AT [address] (test mjkk=9844) [facility] [address] POCT-GLUCOSE [id number] 23:22:00 Test Item Value Reference Range Comments POC-GLUCOSE METER (BEAKER) 145 mg/dL 70-110 TESTED AT [address] (test qzcr=1348) [facility] [address] POCT-GLUCOSE [id number] 21:46:00 Test Item Value Reference Range Comments POC-GLUCOSE METER (BEAKER) 174 mg/dL 70-110 TESTED AT [address] (test lbwg=0438) [place] [address] POCT-GLUCOSE [id number] 19:07:00 Test Item Value Reference Range Comments POC-GLUCOSE METER (BEAKER) 137 mg/dL 70-110 TESTED AT [address] (test wxqj=0411) [place] [address] POCT-GLUCOSE [id number] 17:59:00 Test Item Value Reference Range Comments POC-GLUCOSE METER (BEAKER) 147 mg/dL 70-110 TESTED AT [address] (test exzw=2730) [place] [address] POCT-GLUCOSE [id number] 17:05:00 Test Item Value Reference Range Comments POC-GLUCOSE METER (BEAKER) 117 mg/dL 70-110 TESTED AT [address] (test yvav=4291) [place] [address] BLOOD [id number] 17:00:00 Test Item Value Reference Range Comments CULTURE (BEAKER) (test ktol=2699) No growth in 5 days RAD, ABDOMEN/KUB, 1 VIEW [id number] 17:00:00Reason for exam:->corpak placementFINAL REPORT EXAM: AP abdominal radiograph HISTORY PROVIDED: Corpak placementCOMPARISON: 02/03/2017 IMPRESSION:The Corpak tube has been advanced with its tip projecting over theT12 vertebral body in the midline likely within the distal stomach. A thinner caliber enteric tube is seen with the tip projecting over the expected location of the stomach as before. The right side ofthe abdomen has been excluded. The visualized bowel gas pattern is nonspecific but nonobstructive. Signed: Saad Guzman MDReport Verified Date/Time: 02/04/2017 17:00:34 Reading Location: [facility] Reading Room 05 :00 PMPOCT-GLUCOSE [id number] 16:02:00 Test Item Value Reference Range Comments POC-GLUCOSE METER (BEAKER) 140 mg/dL 70-110 [address] (test axtx=9291) [facility] [address] POCT-GLUCOSE [id number] 14:44:00 Test Item Value Reference Range Comments POC-GLUCOSE METER (ZINA) 147 mg/dL 70-110 TESTED AT [facility] [address] [facility] (test jcce=2800) [facility] [address] RAD, CHEST, 1 VIEW, NON [id number] 13:45:00Reason for exam:->ETT exchangedFINAL REPORT Chest one view. Clinical history: ETT exchanged Comparison: 02/04/2017 Discussion: A frontal chest is provided. Cardiomediastinal contours are unchanged. ET is approximately 4.5 cm above the tiago. A left IJ line appears slightly retracted, projecting over the brachiocephalic vein. Feeding tube projects below the diaphragm. Low lung volume. There are patchy bilateral airspace opacities, which appears slightly worse in the left mid to lower lung region. No pneumothorax. Suspect a small left effusion. Signed: Mac Santamariaort Verified Date/Time: 02/04/2017 13:45: 22 Reading Location: [facility] [id number] Consult Reading Room EEG RECORDING IN COMA/SLEEP [id number] 13:28:00Reason for exam:->AMSShould this be performed at the bedside?->YesDATE OF EE02-04-2017 DATE OF REPORT: 02-04-2017 ACC: [id number] EE Start time: 11:17 Stop time: 11:38 ICD-10: R56.9 CPT Code: 59909 HISTORY: Encephalopathy, post rectal cancer surgery. MEDICATIONS THAT COULD AFFECT EEG: None TECHNICAL SUMMARY: This is a digital EEG recorded with 32 inputchannels on a [employer] system and then reviewed with bipolar and [...] slowing with minimal reactivity CLINICAL CORRELATION: This EEGis consistent with an underlying etiologically nonspecific mild-moderate encephalopathy. An EEG without epileptiform discharges does not exclude the possibility of epilepsy. If the clinical suspicion of epilepsy remains, consider additional EEG recordings. Leo Brandon MD Neurophysiology Fellow PGY5 Shad Jovel [facility] Neurophysiology/Epilepsy Attending Electronically signedby: SHAD JOVEL MD on 02/04/2017 01:28 PMPOCT-GLUCOSE [id number] 13:27:00 Test Item Value Reference Range Comments POC-GLUCOSE METER (BEAKER) 136 mg/dL 70-110 TESTED AT [address] (test jrky=6209) [place] [id number] POCT-GLUCOSE [id number] 12:48:00 Test Item Value Reference Range Comments POC-GLUCOSE METER (BEAKER) 88 mg/dL 70-110 TESTED AT [address] (test pxlt=0258) [place] [address] POCT-GLUCOSE [id number] 12:46:00 Test Item Value Reference Range Comments POC-GLUCOSE METER (BEAKER) 94 mg/dL 70-110 TESTED AT [address] (test qmmt=1786) [place] [address] POCT-GLUCOSE [id number] 11:07:00 Test Item Value Reference Range Comments POC-GLUCOSE METER (BEAKER) 140 mg/dL 70-110 TESTED AT [address] (test pnsu=5063) [facility] [address] POCT-GLUCOSE [id number] 10:24:00 Test Item Value Reference Range Comments POC-GLUCOSE METER (BEAKER) 154 mg/dL 70-110 TESTED AT [address] (test cwdj=8988) [place] [address] [id number] 09:22:00 Test Item Value Reference Range Comments PARTIAL THROMBOPLASTIN TIME (BEAKER) (test 71.1 seconds 22.5-36.0 zhst=408) CBC W/PLT COUNT & AUTO [id number] 09:08:00 Test Item Value Reference Range Comments WHITE BLOOD CELL COUNT (BEAKER) (test ycnu=086) 19.9 K/ L 3.5-10.5 RED BLOOD CELL COUNT (BEAKER) (test ackh=371) 3.56 M/ L 4.63-6.08 HEMOGLOBIN (BEAKER) (test rdnn=060) 10.4 GM/DL 13.7-17.5 HEMATOCRIT (BEAKER) (test uitu=876) 34.5 % 40.1-51.0 MEAN CORPUSCULAR VOLUME (BEAKER) (test azxs=148) 96.9 fL 79.0-92.2 MEAN CORPUSCULAR HEMOGLOBIN (BEAKER) (test 29.2 pg 25.7-32.2 dhvc=076) MEAN CORPUSCULAR HEMOGLOBIN CONC (BEAKER) (test 30.1 GM/DL 32.3-36.5 dzaj=350) RED CELL DISTRIBUTION WIDTH (BEAKER) (test 15.1 % 11.6-14.4 ynkg=839) PLATELET COUNT (BEAKER) (test stix=765) 499 K/CU MM 150-450 MEAN PLATELET VOLUME (BEAKER) (test mdif=007) 10.6 fL 9.4-12.4 NUCLEATED RED BLOOD CELLS (BEAKER) (test 0 /100 WBC 0-0 gbvy=290) NEUTROPHILS RELATIVE PERCENT (BEAKER) (test 90 % bldb=151) LYMPHOCYTES RELATIVE PERCENT (BEAKER) (test 4 % ojrd=822) MONOCYTES RELATIVE PERCENT (BEAKER) (test 4 % jzov=186) EOSINOPHILS RELATIVE PERCENT (BEAKER) (test 1 % qoqp=266) BASOPHILS RELATIVE PERCENT (BEAKER) (test 0 % ovvp=942) NEUTROPHILS ABSOLUTE COUNT (BEAKER) (test 17.95 K/ L 1.78-5.38 kpha=807) LYMPHOCYTES ABSOLUTE COUNT (BEAKER) (test 0.80 K/ L 1.32-3.57 dxpk=982) MONOCYTES ABSOLUTE COUNT (BEAKER) (test 0.78 K/ L 0.30-0.82 dkxi=518) EOSINOPHILS ABSOLUTE COUNT (BEAKER) (test 0.13 K/ L 0.04-0.54 tzwz=207) BASOPHILS ABSOLUTE COUNT (BEAKER) (test 0.03 K/ L 0.01-0.08 feja=784) IMMATURE GRANULOCYTES-RELATIVE PERCENT (BEAKER) 1 % 0-1 (test uxta=3898) (MANUAL DIFFERENTIAL)2017-02-04 09:08:00 Test Item Value Reference Range Comments TOTAL COUNTED (BEAKER) (test hokq=7564) WBC MORPHOLOGY (BEAKER) (test ouda=160) Normal PLT MORPHOLOGY (BEAKER) (test oaiv=354) Normal RBC MORPHOLOGY (BEAKER) (test ywrk=442) Normal POCT-GLUCOSE [id number] 09:02:00 Test Item Value Reference Range Comments POC-GLUCOSE METER (BEAKER) 282 mg/dL 70-110 TESTED AT [address] (test batr=5065) [place] [address] CLOSTRIDIUM DIFFICILE TOXIN [id number] 08:47:00 Test Item Value Reference Range Comments CLOSTRIDIUM DIFFICILE TOXIN, PCR (AKER) (test Not Detected Not Detected mwlo=1901) This qualitative real-time polymerase chain reaction assay detects the tcdB gene , encoded on the C.difficile pathogenicity locus (PaLoc). The product of tcdB, toxin B, is a cytotoxin essential for causing C.difficile-associated disease ( CDAD) and is found in virtually all toxigenic C.difficile.This assay is performed for patients suspected of having either community-acquired or nosocomial CDAD. Accordingly, only symptomatic patients should be tested and formed stools will be rejected unless ileus is present (i.e., specified when ordering). Patients may be colonized with toxigenic C.difficile strains not causing active disease; therefore, clinical correlation is needed when deciding how to manage patients with a positive test result.The assay has not been validated as a test of cure as amplifiable nucleic acid may persist after effective treatment; therefore, follow-up testing of a positive result is not recommended.POCT-GLUCOSE [id number] 08:00:00 Test Item Value Reference Range Comments POC-GLUCOSE METER (BEAKER) 163 mg/dL 70-110 TESTED AT [address] (test xoom=5266) [place] [address] [id number] 07:59:00 Test Item Value Reference Range Comments PARTIAL THROMBOPLASTIN TIME (BEAKER) (test 101.8 seconds 22.5-36.0 opkb=735) BLOOD [id number] 07:49:00 Test Item Value Reference Range Comments CULTURE (BEAKER) (test rnty=9003) Ampicillin (test code=26) Gentamicin High Level Synergy (test qbya=028) Linezolid (test code=40) Streptomycin High Level Synergy (test kefq=790) Vancomycin (test code=13) Daptomycin (test Susceptible 0-4 , No code=59) Interpretations Established <0 or >4 Penicillin G (test Susceptible 0-8 , code=3) Resistant <0 or >8 CULTURE (BEAKER) (test From Aerobic Bottle soix=5262) Only Enterococcus faecalis GRAM STAIN RESULT From aerobic (BEAKER) (test bottle only: gram niyy=6201) positive cocci in pairs VANCOMYCIN-SUSCEPTIBLE ENTEROCOCCUS (VSE) DETECTEDFirst line therapy: vancomycin or ampicillin (ampicillin only if confirmed susceptible)(Goldie/vanB not detected)Other organisms and resistance markers not contained in this PCR panel cannot be excluded and follow-up of traditional culture results is required. This sample was tested at the [facility] using the [employer] Blood Culture ID Panel. This test is FDA cleared for in vitro diagnostic use and has been verified and approved by the [facility] for clinical use. Reference Range: Not [id number] 06:57:00 Test Item Value Reference Range Comments PHOSPHORUS (BEAKER) (test lgex=833) 2.3 mg/dL 2.3-4.7 [id number] 06:57:00 Test Item Value Reference Range Comments MAGNESIUM (BEAKER) (test oslz=445) 2.5 mg/dL 1.6-2.6 BASIC METABOLIC [id number] 06:57:00 Test Item Value Reference Range Comments SODIUM (BEAKER) (test 153 meq/L 136-145 yvfm=839) POTASSIUM (BEAKER) (test 3.8 meq/L 3.5-5.1 pyhi=373) CHLORIDE (BEAKER) (test 117 meq/L 98-107 uyxy=522) CO2 (BEAKER) (test 28 meq/L 22-29 sjmx=409) BLOOD UREA NITROGEN 39 mg/dL 7-21 (BEAKER) (test fbfc=226) CREATININE (BEAKER) (test 1.12 mg/dL 0.57-1.25 hpjb=731) GLUCOSE RANDOM (BEAKER) 142 mg/dL 70-105 (test lnif=662) CALCIUM (BEAKER) (test 7.6 mg/dL 8.4-10.2 euwk=068) EGFR (BEAKER) (test 67 mL/min/1.73 sq m ESTIMATED GFR IS NOT sffq=7249) ACCURATE CREATININE CLEARANCE IN PREDICTING GLOMERULAR FILTRATION RATE. ESTIMATED GFR IS NOT APPLICABLE FOR DIALYSIS PATIENTS. POCT-GLUCOSE [id number] 06:37:00 Test Item Value Reference Range Comments POC-GLUCOSE METER (BEAKER) 132 mg/dL 70-110 TESTED AT [address] (test vbkh=5844) [place] [address] [id number] 06:30:00 Test Item Value Reference Range Comments AMMONIA (BEAKER) (test hpwq=220) 40 mol/L 18-72 CALCIUM, [id number] 06:23:00 Test Item Value Reference Range Comments CALCIUM IONIZED (BEAKER) (test hmzz=739) 1.08 mmol/L 1.12-1.27 PH, BLOOD (BEAKER) (test epue=2436) 7.53 PROTHROMBIN TIME/[id number] 06:01:00 Test Item Value Reference Range Comments PROTIME (BEAKER) (test tods=328) 16.4 seconds 11.7-14.7 INR (BEAKER) (test ibqn=974) 1.3 <=5.9 RECOMMENDED COUMADIN/WARFARIN INR THERAPY RANGESSTANDARD DOSE: 2.0 - 3.0 Includes: PROPHYLAXIS forvenous thrombosis, systemic embolization; TREATMENT for venous thrombosis and/or pulmonary embolus.HIGH RISK: Target INR is 2.5-3.5 for patients with mechanical heart valves.POCT-GLUCOSE [id number] 05:36:00 Test Item Value Reference Range Comments POC-GLUCOSE METER (BEAKER) 119 mg/dL 70-110 TESTED AT [address] (test pwww=9577) [place] [address] POCT-GLUCOSE [id number] 04:27:00 Test Item Value Reference Range Comments POC-GLUCOSE METER (BEAKER) 126 mg/dL 70-110 TESTED AT [address] (test zesz=9950) [place] [address] RAD, CHEST, 1 VIEW, NON [id number] 03:42:00Reason for exam:-> IntubatedShould this be performed at the bedside?->YesFINAL REPORT RAD, CHEST, 1 VIEW, NON DEPT INDICATION: Intubated COMPARISON: Prior day's exam FINDINGS: Portable frontal view of the chest. IMPRESSION: Support Lines: Stable. Lungs and pleura: Low lung volumes with bibasilar subsegmental atelectasis. No focal airspace disease.Questionable left effusion. No pneumothorax.Heart and mediastinum: Unchanged appearance of the mediastinal contours.Additional findings: None. Signed: JR Patrick, Fernando Murray Verified Date/Time: 02/04/2017 03:42:53 Reading Location: [place] [id number] Body Reading Room Electronically signedby: FERNANDO NGUYEN on 02/04/2017 03 :42 AMPOCT-GLUCOSE [id number] 03:10:00 Test Item Value Reference Range Comments POC-GLUCOSE METER (BEAKER) 174 mg/dL 70-110 TESTED AT [address] (test nfwl=5114) [place] [address] BASIC METABOLIC [id number] 01:39:00 Test Item Value Reference Range Comments SODIUM (BEAKER) (test 155 meq/L 136-145 txko=211) POTASSIUM (BEAKER) (test 3.8 meq/L 3.5-5.1 zryi=973) CHLORIDE (BEAKER) (test 119 meq/L 98-107 vnfm=965) CO2 (BEAKER) (test 29 meq/L 22-29 weps=849) BLOOD UREA NITROGEN 39 mg/dL 7-21 (BEAKER) (test yfik=633) CREATININE (BEAKER) (test 1.14 mg/dL 0.57-1.25 tlgy=178) GLUCOSE RANDOM (BEAKER) 187 mg/dL 70-105 (test xbjc=819) CALCIUM (BEAKER) (test 7.5 mg/dL 8.4-10.2 sgpr=998) EGFR (BEAKER) (test 66 mL/min/1.73 sq m ESTIMATED GFR IS NOT ttlh=0827) ACCURATE CREATININE CLEARANCE IN PREDICTING GLOMERULAR FILTRATION RATE. ESTIMATED GFR IS NOT APPLICABLE FOR DIALYSIS PATIENTS. POCT-GLUCOSE [id number] 01:17:00 Test Item Value Reference Range Comments POC-GLUCOSE METER (BEAKER) 152 mg/dL 70-110 TESTED AT [address] (test trev=8147) [facility] [address] POCT-GLUCOSE [id number] 00:25:00 Test Item Value Reference Range Comments POC-GLUCOSE METER (BEAKER) 159 mg/dL 70-110 TESTED AT [address] (test ytxj=3443) [place] [address] POCT-GLUCOSE [id number] 23:13:00 Test Item Value Reference Range Comments POC-GLUCOSE METER (BEAKER) 181 mg/dL 70-110 TESTED AT [address] (test cjux=9939) [place] [address] POCT-GLUCOSE [id number] 20:44:00 Test Item Value Reference Range Comments POC-GLUCOSE METER (BEAKER) 189 mg/dL 70-110 TESTED AT [address] (test hhiz=7857) [place] [address] POCT-GLUCOSE [id number] 20:44:00 Test Item Value Reference Range Comments POC-GLUCOSE METER (BEAKER) 139 mg/dL 70-110 TESTED AT [address] (test btdh=6448) [place] [address] RAD, ABDOMEN/KUB, 1 VIEW [id number] 20:12:00Reason for exam:->dobhoff placement checkFINAL REPORT EXAMINATION: SUPINE ABDOMEN CLINICAL INDICATION: FEEDING TUBE PLACEMENT IMPRESSION: The tips of both the feeding and nasogastric tubes project over the left upper abdomen in the region of the stomach just downstream from the expected gastroesophageal junction. The stomach is decompressed. Although the bowel gas pattern is nonspecific, wall thickening of the transverse segment of the colon is again suspected. The finding may reflect third spacing of fluid with bowel wall edema or a colitis. The colon had a similar appearance on the CT examination 01/31/2017. Signed: Zach Dowell MDReport Verified Date/Time: 02/03/2017 20:12:15 Reading Location : [facility] Radiology Reading Room POCT-GLUCOSE [id number] 18:50:00 Test Item Value Reference Range Comments POC-GLUCOSE METER (BEAKER) 102 mg/dL 70-110 TESTED AT [address] (test ugkp=2852) [place] [address] POCT-GLUCOSE [id number] 17:58:00 Test Item Value Reference Range Comments POC-GLUCOSE METER (BEAKER) 90 mg/dL 70-110 TESTED AT [address] (test ecwa=4717) [place] [address] RAD, ABDOMEN/KUB, 1 VIEW [id number] 17:25:00Reason for exam:->dobhoff tube placementFINAL REPORT EXAMINATION: SUPINE ABDOMEN CLINICAL INDICATION: FEEDING TUBE PLACEMENT IMPRESSION: Compared with 2016. Tip of the feeding tube has been advanced and now projects over the right upper abdomen in the region of the gastroduodenal junction. Tip of the nasogastric tube projects over left upper abdomen in the region of the stomach. Visualized bowel gas pattern isnonspecific. Signed: Zach Dowelleport Verified Date/Time: 02/03/2017 17:25:39 Reading Location: [facility] Radiology Reading Room 05 :25 PMPOCT-GLUCOSE [id number] 17:16:00 Test Item Value Reference Range Comments POC-GLUCOSE METER (BEAKER) 116 mg/dL 70-110 TESTED AT [address] (test djos=1113) [place] [address] [id number] 16:39:00 Test Item Value Reference Range Comments PARTIAL THROMBOPLASTIN TIME (BEAKER) (test 82.0 seconds 22.5-36.0 murp=667) POCT-GLUCOSE [id number] 16:04:00 Test Item Value Reference Range Comments POC-GLUCOSE METER (BEAKER) 126 mg/dL 70-110 TESTED AT [address] (test gghz=5004) [place] [address] [id number] 15:26:00 Test Item Value Reference Range Comments AMMONIA (BEAKER) (test irro=549) 31 mol/L 18-72 POCT-GLUCOSE [id number] 15:12:00 Test Item Value Reference Range Comments POC-GLUCOSE METER (BEAKER) 142 mg/dL 70-110 TESTED AT [address] (test eopi=6176) [place] [address] POCT-GLUCOSE [id number] 15:12:00 Test Item Value Reference Range Comments POC-GLUCOSE METER (BEAKER) 151 mg/dL 70-110 TESTED AT [facility] [address] (test momq=7925) [facility] [address] BASIC METABOLIC [id number] 15:05:00 Test Item Value Reference Range Comments SODIUM (BEAKER) (test 157 meq/L 136-145 ybtq=214) POTASSIUM (BEAKER) (test 3.7 meq/L 3.5-5.1 igxc=030) CHLORIDE (BEAKER) (test 119 meq/L 98-107 aivm=144) CO2 (BEAKER) (test 30 meq/L 22-29 xjeq=014) BLOOD UREA NITROGEN 39 mg/dL 7-21 (BEAKER) (test smzh=957) CREATININE (BEAKER) (test 1.11 mg/dL 0.57-1.25 iede=126) GLUCOSE RANDOM (BEAKER) 156 mg/dL 70-105 (test rkdv=615) CALCIUM (BEAKER) (test 7.5 mg/dL 8.4-10.2 zypd=152) EGFR (BEAKER) (test 68 mL/min/1.73 sq m ESTIMATED GFR IS NOT uxdn=5139) ACCURATE CREATININE CLEARANCE IN PREDICTING GLOMERULAR FILTRATION RATE. ESTIMATED GFR IS NOT APPLICABLE FOR DIALYSIS PATIENTS. MR, BRAIN, WITHOUT [id number] 13:09:00Reason for exam:-> encephalopathyWhat is the patient's sedation requirement?->No SedationIs thepatient claustrophobic?->NoFINAL REPORT MRI brain Comparison: Head CT January 29, MRI September 29, 2015 Reason for exam: encephalopathyEncephalopathy Discussion: Multiplanar MR imaging the brain was [...] Flow-voids are seen in the basilar and internalcarotid arteries as well as in the large posterior dural sinuses. The pineal, sella, and craniocervical junction regions are unremarkable. The visualized orbital contents, paranasal sinuses, skullbase and surrounding soft tissues are unremarkable. . Impressions: Extensive chronic white matter changes in a single diffusion restricted small insult right blevins radiata region. No hematoma or mass effect. Signed: Neris Greenberg Verified Date/Time: 11/2016 13:09:03 Reading Location: [place] [id number] Neuro Reading Room POCT- GLUCOSE [id number] 12:32:00 Test Item Value Reference Range Comments POC-GLUCOSE METER (BEAKER) 118 mg/dL 70-110 TESTED AT [address] (test jeiu=4517) [facility] [address] [id number] 11:10:00 Test Item Value Reference Range Comments PARTIAL THROMBOPLASTIN TIME (BEAKER) (test 83.0 seconds 22.5-36.0 jgak=508) POCT-GLUCOSE [id number] 10:28:00 Test Item Value Reference Range Comments POC-GLUCOSE METER (BEAKER) 109 mg/dL 70-110 TESTED AT [address] (test wgts=4677) [place] [address] POCT-GLUCOSE [id number] 09:12:00 Test Item Value Reference Range Comments POC-GLUCOSE METER (BEAKER) 134 mg/dL 70-110 TESTED AT [address] (test lhym=3449) [place] [address] POCT-GLUCOSE [id number] 08:14:00 Test Item Value Reference Range Comments POC-GLUCOSE METER (BEAKER) 131 mg/dL 70-110 TESTED AT [address] (test jpyr=1014) [place] [address] BASIC METABOLIC [id number] 07:43:00 Test Item Value Reference Range Comments SODIUM (BEAKER) (test 157 meq/L 136-145 hirb=355) POTASSIUM (BEAKER) (test 3.7 meq/L 3.5-5.1 jnxn=019) CHLORIDE (BEAKER) (test 119 meq/L 98-107 tymg=872) CO2 (BEAKER) (test 31 meq/L 22-29 mbqo=017) BLOOD UREA NITROGEN 42 mg/dL 7-21 (BEAKER) (test purl=260) CREATININE (BEAKER) (test 1.21 mg/dL 0.57-1.25 mxqa=355) GLUCOSE RANDOM (BEAKER) 172 mg/dL 70-105 (test avhd=348) CALCIUM (BEAKER) (test 7.7 mg/dL 8.4-10.2 xpqi=831) EGFR (BEAKER) (test 62 mL/min/1.73 sq m ESTIMATED GFR IS NOT ayns=0459) ACCURATE CREATININE CLEARANCE IN PREDICTING GLOMERULAR FILTRATION RATE. ESTIMATED GFR IS NOT APPLICABLE FOR DIALYSIS PATIENTS. POCT-GLUCOSE [id number] 07:11:00 Test Item Value Reference Range Comments POC-GLUCOSE METER (BEAKER) 149 mg/dL 70-110 TESTED AT [address] (test atpx=2908) [place] [id number] POCT-GLUCOSE [id number] 06:21:00 Test Item Value Reference Range Comments POC-GLUCOSE METER (BEAKER) 151 mg/dL 70-110 TESTED AT [address] (test ftgl=3610) [place] [id number] POCT-GLUCOSE [id number] 05:15:00 Test Item Value Reference Range Comments POC-GLUCOSE METER (BEAKER) 206 mg/dL 70-110 TESTED AT [address] (test xjxz=3156) [place] [id number] RAD, CHEST, 1 VIEW, NON [id number] 04:38:00Reason for exam:-> IntubatedShould this be performed at the bedside?->YesFINAL REPORT EXAMINATION: AP PORTABLE CHEST RADIOGRAPH CLINICAL INDICATION: Intubated IMPRESSION: Compared with 02/02/2017. Tip of the nasogastric tube is been advanced and is now below the diaphragm and inferior margin of today's study. The endotracheal tube and left jugular central line are grossly stable in position. The heart is enlarged but grossly stable. Opacities persist in the perihilar regions and lung bases. The morphology and distribution favor atelectasis. Mild superimposed edema should also be considered. Query stable superimposed pleural effusions. No evidenceof new lung consolidation or pneumothorax. In summary, recommend clinical correlation regarding fluid overload/heart failure. Signed: Zach [place]elle[place] Verified Date/Time: 02/03 04:38:28 Reading Location: [facility] Radiology Reading Room [id number] 04:17:00 Test Item Value Reference Range Comments PARTIAL THROMBOPLASTIN TIME (BEAKER) (test 86.9 seconds 22.5-36.0 aiaf=590) PROTHROMBIN TIME/[id number] 04:15:00 Test Item Value Reference Range Comments PROTIME (BEAKER) (test zboa=536) 18.2 seconds 11.7-14.7 INR (BEAKER) (test ymlv=508) 1.5 <=5.9 RECOMMENDED COUMADIN/WARFARIN INR THERAPY RANGESSTANDARD DOSE: 2.0 - 3.0 Includes: PROPHYLAXIS forvenous thrombosis, systemic embolization; TREATMENT for venous thrombosis and/or pulmonary embolus.HIGH RISK: Target INR is 2.5-3.5 for patients with mechanical heart valves.[id number] 04:04:00 Test Item Value Reference Range Comments PHOSPHORUS (BEAKER) (test rlxr=539) 2.3 mg/dL 2.3-4.7 [id number] 04:04:00 Test Item Value Reference Range Comments MAGNESIUM (BEAKER) (test sguz=948) 2.6 mg/dL 1.6-2.6 COMPREHENSIVE METABOLIC [id number] 04:04:00 Test Item Value Reference Range Comments TOTAL PROTEIN (BEAKER) 5.5 gm/dL 6.0-8.3 (test rkdl=581) ALBUMIN (BEAKER) (test 2.3 g/dL 3.5-5.0 mwyz=0818) ALKALINE PHOSPHATASE 109 U/L 40-150 (BEAKER) (test upjj=612) BILIRUBIN TOTAL (BEAKER) 0.3 mg/dL 0.2-1.2 (test upnn=962) SODIUM (BEAKER) (test 159 meq/L 136-145 sbbq=409) POTASSIUM (BEAKER) (test 3.7 meq/L 3.5-5.1 xxue=408) CHLORIDE (BEAKER) (test 120 meq/L 98-107 vgyp=435) CO2 (BEAKER) (test 30 meq/L 22-29 pixm=777) BLOOD UREA NITROGEN 43 mg/dL 7-21 (BEAKER) (test txam=305) CREATININE (BEAKER) (test 1.37 mg/dL 0.57-1.25 rubb=292) GLUCOSE RANDOM (BEAKER) 271 mg/dL 70-105 (test zodf=649) CALCIUM (BEAKER) (test 7.9 mg/dL 8.4-10.2 txeh=333) AST (SGOT) (BEAKER) (test 22 U/L 5-34 etdz=782) ALT (SGPT) (BEAKER) (test 12 U/L 6-55 etex=570) EGFR (BEAKER) (test 53 mL/min/1.73 sq m ESTIMATED GFR IS NOT jreu=1424) ACCURATE CREATININE CLEARANCE IN PREDICTING GLOMERULAR FILTRATION RATE. ESTIMATED GFR IS NOT APPLICABLE FOR DIALYSIS PATIENTS. POCT-GLUCOSE [id number] 04:03:00 Test Item Value Reference Range Comments POC-GLUCOSE METER (BEAKER) 221 mg/dL 70-110 TESTED AT [facility] [address] [facility] (test hxfx=9970) [facility] [address] CBC W/PLT COUNT & AUTO [id number] 04:02:00 Test Item Value Reference Range Comments WHITE BLOOD CELL COUNT (BEAKER) (test tecu=708) 24.8 K/ L 3.5-10.5 RED BLOOD CELL COUNT (BEAKER) (test gqwq=712) 3.85 M/ L 4.63-6.08 HEMOGLOBIN (BEAKER) (test yadl=466) 11.2 GM/DL 13.7-17.5 HEMATOCRIT (BEAKER) (test swhb=745) 37.4 % 40.1-51.0 MEAN CORPUSCULAR VOLUME (BEAKER) (test immk=723) 97.1 fL 79.0-92.2 MEAN CORPUSCULAR HEMOGLOBIN (BEAKER) (test 29.1 pg 25.7-32.2 avmp=872) MEAN CORPUSCULAR HEMOGLOBIN CONC (BEAKER) (test 29.9 GM/DL 32.3-36.5 ttvx=991) RED CELL DISTRIBUTION WIDTH (BEAKER) (test 15.2 % 11.6-14.4 pzto=547) PLATELET COUNT (BEAKER) (test ryzx=776) 521 K/CU MM 150-450 MEAN PLATELET VOLUME (BEAKER) (test iobs=341) 10.7 fL 9.4-12.4 NUCLEATED RED BLOOD CELLS (BEAKER) (test 0 /100 WBC 0-0 yjez=264) NEUTROPHILS RELATIVE PERCENT (BEAKER) (test 91 % vzbv=848) LYMPHOCYTES RELATIVE PERCENT (BEAKER) (test 4 % lohk=888) MONOCYTES RELATIVE PERCENT (BEAKER) (test 3 % zgzn=666) EOSINOPHILS RELATIVE PERCENT (BEAKER) (test 0 % nrfr=434) BASOPHILS RELATIVE PERCENT (BEAKER) (test 0 % fnnb=249) NEUTROPHILS ABSOLUTE COUNT (BEAKER) (test 22.63 K/ L 1.78-5.38 fvyy=552) LYMPHOCYTES ABSOLUTE COUNT (BEAKER) (test 0.95 K/ L 1.32-3.57 ajhz=873) MONOCYTES ABSOLUTE COUNT (BEAKER) (test 0.75 K/ L 0.30-0.82 wzdp=222) EOSINOPHILS ABSOLUTE COUNT (BEAKER) (test 0.03 K/ L 0.04-0.54 kbdz=795) BASOPHILS ABSOLUTE COUNT (BEAKER) (test 0.04 K/ L 0.01-0.08 otjp=829) IMMATURE GRANULOCYTES-RELATIVE PERCENT (BEAKER) 2 % 0-1 (test njiv=6920) CALCIUM, [id number] 04:00:00 Test Item Value Reference Range Comments CALCIUM IONIZED (BEAKER) (test buyb=116) 1.09 mmol/L 1.12-1.27 PH, BLOOD (BEAKER) (test abqa=8911) 7.50 POCT-GLUCOSE [id number] 03:18:00 Test Item Value Reference Range Comments POC-GLUCOSE METER (BEAKER) 251 mg/dL 70-110 TESTED AT [address] (test rnrh=8794) [facility] [address] POCT-GLUCOSE [id number] 03:18:00 Test Item Value Reference Range Comments POC-GLUCOSE METER (BEAKER) 232 mg/dL 70-110 TESTED AT [address] (test yaxc=4982) [facility] [address] POCT-GLUCOSE [id number] 01:18:00 Test Item Value Reference Range Comments POC-GLUCOSE METER (BEAKER) 198 mg/dL 70-110 TESTED AT [address] (test jdlg=5089) [facility] [address] POCT-GLUCOSE [id number] 00:16:00 Test Item Value Reference Range Comments POC-GLUCOSE METER (BEAKER) 185 mg/dL 70-110 TESTED AT [address] (test hmxh=3983) [place] [address] POCT-GLUCOSE [id number] 23:54:00 Test Item Value Reference Range Comments POC-GLUCOSE METER (BEAKER) 151 mg/dL 70-110 TESTED AT [address] (test yyyn=7807) [place] [address] POCT-GLUCOSE [id number] 22:30:00 Test Item Value Reference Range Comments POC-GLUCOSE METER (BEAKER) 104 mg/dL 70-110 TESTED AT [address] (test oasl=4853) [place] [address] POCT-GLUCOSE [id number] 21:37:00 Test Item Value Reference Range Comments POC-GLUCOSE METER (BEAKER) 86 mg/dL 70-110 TESTED AT [address] (test siug=4931) [place] [address] [id number] 20:40:00 Test Item Value Reference Range Comments PARTIAL THROMBOPLASTIN TIME (BEAKER) (test 64.8 seconds 22.5-36.0 ddll=705) POCT-GLUCOSE [id number] 20:09:00 Test Item Value Reference Range Comments POC-GLUCOSE METER (BEAKER) 119 mg/dL 70-110 TESTED AT [address] (test nydh=1621) [place] [address] POCT-GLUCOSE [id number] 18:40:00 Test Item Value Reference Range Comments POC-GLUCOSE METER (BEAKER) 193 mg/dL 70-110 TESTED AT [address] (test uxit=8002) [place] [address] POCT-GLUCOSE [id number] 17:36:00 Test Item Value Reference Range Comments POC-GLUCOSE METER (BEAKER) 180 mg/dL 70-110 TESTED AT [address] (test hgog=9463) [place] [address] POCT-GLUCOSE [id number] 16:25:00 Test Item Value Reference Range Comments POC-GLUCOSE METER (BEAKER) 217 mg/dL 70-110 TESTED AT [address] (test krfw=2817) [place] [address] CT, LIMITED/LOCALIZED [id number] 15:47:00Reason for exam:->Pelvic fluid collectionFINAL REPORT Limited CT of the pelvis CLINICAL HISTORY: Pelvic fluid collection TECHNIQUE: Noncontrast CT of the pelvis is performed in anticipation of CT-guided procedure. Thisexam was performed according to our departmental dose-optimization program which includes automated exposure control, adjustment of the mA and/or kV according to patient size and/or use of iterative reconstruction technique. COMPARISON FILM: CT of the abdomen and pelvis from 01/31/2017 IMPRESSION:Limited pelvic CT is performed in anticipation of [...] the procedure was terminated. Signed: Hank Gray MDReport Verified Date/Time: 02/02/2017 15:47:41 Reading Location: [facility] C013Y CT Body Reading Room POCT-GLUCOSE [id number] 15:24:00 Test Item Value Reference Range Comments POC-GLUCOSE METER (BEAKER) 247 mg/dL 70-110 TESTED AT [address] (test qcwp=7828) [place] [address] POCT-GLUCOSE [id number] 14:39:00 Test Item Value Reference Range Comments POC-GLUCOSE METER (BEAKER) 246 mg/dL 70-110 TESTED AT [address] (test notg=1953) [place] [address] POCT-GLUCOSE [id number] 14:39:00 Test Item Value Reference Range Comments POC-GLUCOSE METER (BEAKER) 230 mg/dL 70-110 TESTED AT [address] (test qlji=5690) [place] [address] POCT-GLUCOSE [id number] 14:39:00 Test Item Value Reference Range Comments POC-GLUCOSE METER (BEAKER) 190 mg/dL 70-110 TESTED AT [address] (test yhet=5921) [facility] [address] [id number] 14:02:00 Test Item Value Reference Range Comments PARTIAL THROMBOPLASTIN TIME (BEAKER) (test 44.2 seconds 22.5-36.0 ykte=589) URINALYSIS W/ REFLEX URINE [id number] 12:50:00 Test Item Value Reference Range Comments COLOR (BEAKER) (test nitr=904) Yellow CLARITY (BEAKER) (test dpdl=691) Hazy SPECIFIC GRAVITY UA (BEAKER) (test fzsq=904) 1.022 1.001-1.035 PH UA (BEAKER) (test fsfq=709) 5.0 5.0-8.0 PROTEIN UA (BEAKER) (test gkdy=875) 20 mg/dL Negative GLUCOSE UA (BEAKER) (test uudm=277) Negative Negative KETONES UA (BEAKER) (test xbsk=674) Trace Negative BILIRUBIN UA (BEAKER) (test ibtw=830) Negative Negative BLOOD UA (BEAKER) (test ptwk=732) Trace Negative NITRITE UA (BEAKER) (test bvls=412) Negative Negative LEUKOCYTE ESTERASE UA (BEAKER) (test pedt=922) Small Negative UROBILINOGEN UA (BEAKER) (test auuh=319) 0.2 mg/dL 0.2-1.0 RBC UA (BEAKER) (test hwrl=472) 9 /HPF WBC UA (BEAKER) (test ncfn=614) 35 /HPF MUCUS (BEAKER) (test fkwf=1687) Few SQUAMOUS EPITHELIAL (BEAKER) (test xfkb=487) < /HPF AMORPHOUS CRYSTALS (BEAKER) (test qsod=3348) Moderate SOURCE(BEAKER) (test ftwu=1310) POCT-GLUCOSE [id number] 10:46:00 Test Item Value Reference Range Comments POC-GLUCOSE METER (BEAKER) 114 mg/dL 70-110 TESTED AT [address] (test mjra=0713) [facility] [address] POCT-GLUCOSE [id number] 10:46:00 Test Item Value Reference Range Comments POC-GLUCOSE METER (BEAKER) 83 mg/dL 70-110 TESTED AT [address] (test lxcn=0824) [place] [address] POCT-GLUCOSE [id number] 09:28:00 Test Item Value Reference Range Comments POC-GLUCOSE METER (BEAKER) 100 mg/dL 70-110 TESTED AT [address] (test lqki=1122) [facility] [address] POCT-GLUCOSE [id number] 08:23:00 Test Item Value Reference Range Comments POC-GLUCOSE METER (BEAKER) 107 mg/dL 70-110 TESTED AT [address] (test nrym=6279) [facility] [address] [id number] 07:15:00 Test Item Value Reference Range Comments PARTIAL THROMBOPLASTIN TIME (BEAKER) (test 89.8 seconds 22.5-36.0 boyn=306) POCT-GLUCOSE [id number] 07:12:00 Test Item Value Reference Range Comments POC-GLUCOSE METER (BEAKER) 132 mg/dL 70-110 TESTED AT [address] (test oors=0329) [place] [address] POCT-GLUCOSE [id number] 06:13:00 Test Item Value Reference Range Comments POC-GLUCOSE METER (BEAKER) 164 mg/dL 70-110 TESTED AT [address] (test hojb=1337) [place] [address] POCT-GLUCOSE [id number] 05:17:00 Test Item Value Reference Range Comments POC-GLUCOSE METER (BEAKER) 196 mg/dL 70-110 TESTED AT [address] (test bunx=9488) [facility] [address] CALCIUM, [id number] 04:59:00 Test Item Value Reference Range Comments CALCIUM IONIZED (BEAKER) (test lcuf=390) 1.06 mmol/L 1.12-1.27 PH, BLOOD (BEAKER) (test ddtr=3869) 7.47 RAD, CHEST, 1 VIEW, NON [id number] 04:44:00Reason for exam:-> IntubatedShould this be performed at the bedside?->YesFINAL REPORT RAD, CHEST, 1 VIEW, NON DEPT INDICATION: Intubated COMPARISON: Prior day's exam FINDINGS: Portable frontal view of the chest. IMPRESSION: Support Lines: Right IJ central venous catheter has been removed. The left IJ central venous catheter is stable. Redemonstration of enteric and endotracheal tubes. Lungs and pleura: Subsegmental atelectasis noted bilaterally, similar to the prior examination when accounting for changes in positioning. No new opacity , effusionor pneumothorax.Heart and mediastinum: Stable contours. Additional findings: None. Signed: JR Patrick, Fernando Murray Verified Date/Time: 02/02/2017 04:44:10 Reading Location: [address] Body Reading Room BASIC METABOLIC [id number] 04:29:00 Test Item Value Reference Range Comments SODIUM (BEAKER) (test 156 meq/L 136-145 czdr=385) POTASSIUM (BEAKER) (test 3.4 meq/L 3.5-5.1 chnv=275) CHLORIDE (BEAKER) (test 117 meq/L 98-107 zuhr=705) CO2 (BEAKER) (test 29 meq/L 22-29 bvlb=804) BLOOD UREA NITROGEN 45 mg/dL 7-21 (BEAKER) (test dcuv=593) CREATININE (BEAKER) (test 1.52 mg/dL 0.57-1.25 brta=220) GLUCOSE RANDOM (BEAKER) 314 mg/dL 70-105 (test emjz=289) CALCIUM (BEAKER) (test 7.8 mg/dL 8.4-10.2 fmmn=382) EGFR (BEAKER) (test 47 mL/min/1.73 sq m ESTIMATED GFR IS NOT ynev=5687) ACCURATE CREATININE CLEARANCE IN PREDICTING GLOMERULAR FILTRATION RATE. ESTIMATED GFR IS NOT APPLICABLE FOR DIALYSIS PATIENTS. [id number] 03:57:00 Test Item Value Reference Range Comments PHOSPHORUS (BEAKER) (test dpab=292) 2.3 mg/dL 2.3-4.7 [id number] 03:57:00 Test Item Value Reference Range Comments MAGNESIUM (BEAKER) (test xjro=355) 2.5 mg/dL 1.6-2.6 PROTHROMBIN [id number] 03:41:00 Test Item Value Reference Range Comments PROTIME (BEAKER) (test yqvi=285) 19.7 seconds 11.7-14.7 INR (BEAKER) (test exoo=512) 1.7 <=5.9 RECOMMENDED COUMADIN/WARFARIN INR THERAPY RANGESSTANDARD DOSE: 2.0 - 3.0 Includes: PROPHYLAXIS forvenous thrombosis, systemic embolization; TREATMENT for venous thrombosis and/or pulmonary embolus.HIGH RISK: Target INR is 2.5-3.5 for patients with mechanical heart valves.CBC W/PLT COUNT & AUTO [id number] 03:40:00 Test Item Value Reference Range Comments WHITE BLOOD CELL COUNT (BEAKER) (test vvzf=071) 27.6 K/ L 3.5-10.5 RED BLOOD CELL COUNT (BEAKER) (test ayte=111) 4.14 M/ L 4.63-6.08 HEMOGLOBIN (BEAKER) (test rfjj=749) 12.0 GM/DL 13.7-17.5 HEMATOCRIT (BEAKER) (test libx=929) 39.9 % 40.1-51.0 MEAN CORPUSCULAR VOLUME (BEAKER) (test yars=320) 96.4 fL 79.0-92.2 MEAN CORPUSCULAR HEMOGLOBIN (BEAKER) (test 29.0 pg 25.7-32.2 lgim=939) MEAN CORPUSCULAR HEMOGLOBIN CONC (BEAKER) (test 30.1 GM/DL 32.3-36.5 utku=724) RED CELL DISTRIBUTION WIDTH (BEAKER) (test 15.3 % 11.6-14.4 uwlf=341) PLATELET COUNT (BEAKER) (test cnza=578) 511 K/CU MM 150-450 MEAN PLATELET VOLUME (BEAKER) (test aldl=065) 10.5 fL 9.4-12.4 NUCLEATED RED BLOOD CELLS (BEAKER) (test 0 /100 WBC 0-0 nega=244) NEUTROPHILS RELATIVE PERCENT (BEAKER) (test 89 % cqkw=755) LYMPHOCYTES RELATIVE PERCENT (BEAKER) (test 4 % wrvi=839) MONOCYTES RELATIVE PERCENT (BEAKER) (test 3 % hkeg=226) EOSINOPHILS RELATIVE PERCENT (BEAKER) (test 0 % oplm=429) BASOPHILS RELATIVE PERCENT (BEAKER) (test 0 % wcdw=635) NEUTROPHILS ABSOLUTE COUNT (BEAKER) (test 24.63 K/ L 1.78-5.38 coia=531) LYMPHOCYTES ABSOLUTE COUNT (BEAKER) (test 1.13 K/ L 1.32-3.57 uuag=997) MONOCYTES ABSOLUTE COUNT (BEAKER) (test 0.95 K/ L 0.30-0.82 dcjz=544) EOSINOPHILS ABSOLUTE COUNT (BEAKER) (test 0.01 K/ L 0.04-0.54 kefi=931) BASOPHILS ABSOLUTE COUNT (BEAKER) (test 0.08 K/ L 0.01-0.08 ujvs=769) IMMATURE GRANULOCYTES-RELATIVE PERCENT (BEAKER) 3 % 0-1 (test qmei=3572) POCT-GLUCOSE [id number] 03:15:00 Test Item Value Reference Range Comments POC-GLUCOSE METER (BEAKER) 276 mg/dL 70-110 TESTED AT [address] (test xvmg=7269) [place] [address] POCT-GLUCOSE [id number] 02:16:00 Test Item Value Reference Range Comments POC-GLUCOSE METER (BEAKER) 294 mg/dL 70-110 TESTED AT [address] (test uefl=4350) [place] [address] POCT-GLUCOSE [id number] 01:14:00 Test Item Value Reference Range Comments POC-GLUCOSE METER (BEAKER) 266 mg/dL 70-110 TESTED AT [address] (test ehio=1054) [place] [address] [id number] 00:38:00 Test Item Value Reference Range Comments PARTIAL THROMBOPLASTIN TIME (BEAKER) (test 67.9 seconds 22.5-36.0 midi=288) POCT-GLUCOSE [id number] 00:14:00 Test Item Value Reference Range Comments POC-GLUCOSE METER (BEAKER) 190 mg/dL 70-110 TESTED AT [address] (test gbzh=9281) [place] [address] POCT-GLUCOSE [id number] 20:46:00 Test Item Value Reference Range Comments POC-GLUCOSE METER (BEAKER) 81 mg/dL 70-110 TESTED AT [address] (test pufd=4308) [place] [address] POCT-GLUCOSE [id number] 20:13:00 Test Item Value Reference Range Comments POC-GLUCOSE METER (BEAKER) 73 mg/dL 70-110 TESTED AT [address] (test dnfu=6998) [place] [address] [id number] 19:33:00 Test Item Value Reference Range Comments PARTIAL THROMBOPLASTIN TIME (BEAKER) (test 35.9 seconds 22.5-36.0 bnyf=457) POCT-GLUCOSE [id number] 18:29:00 Test Item Value Reference Range Comments POC-GLUCOSE METER (BEAKER) 70 mg/dL 70-110 TESTED AT [address] (test qlzh=5041) [place] [address] TROPONIN [id number] 14:50:00 Test Item Value Reference Range Comments TROPONIN I (BEAKER) (test nzvf=888) 0.02 ng/mL 0.00-0.03 Troponin I (TnI) levels must be interpreted [...] failure, acidosis, acute neurological disease, and persistent tachyarrhythmia.POCT-GLUCOSE [id number] 14:16:00 Test Item Value Reference Range Comments POC-GLUCOSE METER (BEAKER) 185 mg/dL 70-110 TESTED AT [address] (test rqug=5714) [place] [address] POCT-GLUCOSE [id number] 14:04:00 Test Item Value Reference Range Comments POC-GLUCOSE METER (BEAKER) 159 mg/dL 70-110 TESTED AT [address] (test ccnd=2006) [place] [address] URINE [id number] 13:40:00 Test Item Value Reference Range Comments CULTURE (BEAKER) (test eynq=7883) Amikacin (test code=1) Ampicillin + Sulbactam (test code=6) Aztreonam (test code=32) Cefepime (test code=51) Cefoxitin (test code=68) Ceftazidime (test code=27) Ceftriaxone (test code=52) Ertapenem (test code=38) Gentamicin (test code=18) Levofloxacin (test code=22) Meropenem (test code=34) Nitrofurantoin (test code=23) Piperacillin + Tazobactam (test code=29) Tetracycline (test code=2) Tobramycin (test code=25) Trimethoprim + Sulfamethoxazole (test code=47) CULTURE (BEAKER) (test cisj=4940) >100,000 col/mL Escherichia coliESBL Positive 80-89,000 col/mL skin floraRAD, CHEST, 1 VIEW, NON [id number] 13:29: 00Reason for exam:->reintubation Should this be performed at the bedside?-&gt ;YesFINAL REPORT TECHNIQUE: Frontal chest radiograph dated 02/01/2017. CLINICAL HISTORY: Reintubation COMPARISON STUDY: Chest radiograph performed earlier the same day. IMPRESSION: Left-sided internal jugular catheter has been re-positioned and the tip projects over the superior vena cava. Remaining life support tubes and lines are unchanged. Minimal amount of left lung base atelectasis. No pleural effusion or pneumothorax. Cardiomediastinal silhouette is stable in size. No pulmonary edema. Degenerative changes are seen in the spine. No fracture. Signed: Galileo Orellana Verified Date/Time: 02/01/2017 13:29:08 Reading Location: [facility] Radiology Reading Room SPUTUM CULTURE + GRAM [id number] 11:46:00 Test Item Value Reference Range Comments CULTURE (BEAKER) (test odwi=4510) No growth GRAM STAIN RESULT (BEAKER) (test 3+ White blood cells seen trnn=4045) GRAM STAIN RESULT (BEAKER) (test 0-5 epithelial cells fyvn=87304) GRAM STAIN RESULT (BEAKER) (test No organisms seen ocpt=31052) CBC W/PLT COUNT & AUTO [id number] 10:58:00 Test Item Value Reference Range Comments WHITE BLOOD CELL COUNT (BEAKER) (test sriw=869) 22.8 K/ L 3.5-10.5 RED BLOOD CELL COUNT (BEAKER) (test xjim=185) 4.64 M/ L 4.63-6.08 HEMOGLOBIN (BEAKER) (test cimm=398) 13.6 GM/DL 13.7-17.5 HEMATOCRIT (BEAKER) (test drav=477) 42.7 % 40.1-51.0 MEAN CORPUSCULAR VOLUME (BEAKER) (test kkkg=321) 92.0 fL 79.0-92.2 MEAN CORPUSCULAR HEMOGLOBIN (BEAKER) (test 29.3 pg 25.7-32.2 xjgg=712) MEAN CORPUSCULAR HEMOGLOBIN CONC (BEAKER) (test 31.9 GM/DL 32.3-36.5 iran=256) RED CELL DISTRIBUTION WIDTH (BEAKER) (test 15.2 % 11.6-14.4 coky=715) PLATELET COUNT (BEAKER) (test wxrp=755) 511 K/CU MM 150-450 MEAN PLATELET VOLUME (BEAKER) (test kypf=413) 10.5 fL 9.4-12.4 NUCLEATED RED BLOOD CELLS (BEAKER) (test 0 /100 WBC 0-0 npxk=288) NEUTROPHILS RELATIVE PERCENT (BEAKER) (test 83 % ugbx=841) LYMPHOCYTES RELATIVE PERCENT (BEAKER) (test 7 % yzjo=031) MONOCYTES RELATIVE PERCENT (BEAKER) (test 4 % wxzg=310) EOSINOPHILS RELATIVE PERCENT (BEAKER) (test 0 % oabd=484) BASOPHILS RELATIVE PERCENT (BEAKER) (test 0 % ksen=953) NEUTROPHILS ABSOLUTE COUNT (BEAKER) (test 18.95 K/ L 1.78-5.38 cgeh=997) LYMPHOCYTES ABSOLUTE COUNT (BEAKER) (test 1.56 K/ L 1.32-3.57 ctfa=798) MONOCYTES ABSOLUTE COUNT (BEAKER) (test 0.98 K/ L 0.30-0.82 cwae=325) EOSINOPHILS ABSOLUTE COUNT (BEAKER) (test 0.00 K/ L 0.04-0.54 dybh=087) BASOPHILS ABSOLUTE COUNT (BEAKER) (test 0.06 K/ L 0.01-0.08 nlgx=178) IMMATURE GRANULOCYTES-RELATIVE PERCENT (BEAKER) 6 % 0-1 (test htmz=0750) (MANUAL DIFFERENTIAL)2017-02-01 10:58:00 Test Item Value Reference Range Comments NEUTROPHILS - REL (DIFF) (BEAKER) (test 84 % xxmc=6325) LYMPHOCYTES - REL (DIFF) (BEAKER) (test 6 % sejg=9469) MONOCYTES - REL (DIFF) (BEAKER) (test tsyn=2924) 4 % EOSINOPHILS - REL (DIFF) (BEAKER) (test 0 % vbnz=7633) BASOPHILS - REL (DIFF) (BEAKER) (test immu=2668) 0 % MYELOCYTES-REL (DIFF) (BEAKER) (test ikqn=4804) 1 % 0-0 PROMYELOCYTES-REL (DIFF) (BEAKER) (test obqn=559) 1 % 0-0 BANDS - REL (DIFF) (BEAKER) (test sxrw=4684) 4 % 0-10 NEUTROPHILS - ABS (DIFF) (BEAKER) (test 19.15 K/ L 1.80-8.00 ejep=2353) LYMPHOCYTES - ABS (DIFF) (BEAKER) (test 1.37 K/ L 1.48-4.50 wpjb=1757) MONOCYTES - ABS (DIFF) (BEAKER) (test ljvf=6794) 0.91 K/ L 0.00-1.30 EOSINOPHILS - ABS (DIFF) (BEAKER) (test 0.00 K/ L 0.00-0.50 jres=9872) BASOPHILS - ABS (DIFF) (BEAKER) (test rzho=8949) 0.00 K/ L 0.00-0.20 PROMYELOCYTES - ABS (DIFF) (BEAKER) (test 0.23 K/ L 0.00-0.00 lrvl=299) BANDS-ABS (DIFF) (BEAKER) (test brra=8337) 0.9 K/ L 0.0-0.8 MYELOCYTES-ABS (DIFF) (BEAKER) (test jlbr=3812) 0.23 K/ L 0.00-0.00 TOTAL COUNTED (BEAKER) (test wgtj=2933) 100 BANDS + SEGMENTED NEUTROPHILS (BEAKER) (test 20.06 qsfs=9935) MANUAL NRBC PER 100 CELLS (BEAKER) (test 2 /100 WBC 0-0 cgze=6466) WBC MORPHOLOGY (BEAKER) (test iyxs=388) Normal RBC MORPHOLOGY (BEAKER) (test iazb=409) Normal LARGE PLT(BEAKER) (test qwpq=4318) Present CLUMPED PLATELETS (BEAKER) (test gtld=022) Present MISCELLANEOUS LAB [id number] 06:53:00 Test Item Value Reference Range Comments SCAN RESULT (test xguw=[id number]) Result comments: VANCOMYCIN-SUSCEPTIBLE ENTEROCOCCUS (VSE) DETECTED First line therapy: vancomycin or ampicillin (ampicillin only if confirmed susceptible) ( Goldie/vanB not detected) Other organisms and resistance markers not contained in this PCR panel cannot be excluded and follow-up of traditional culture results is required. This sample was tested at the [facility] using the [employer] Blood Culture ID Panel. This test is FDA cleared for in vitro diagnostic useand has been verified and approved by the [facility] for clinical use. Reference Range: Not DetectedPOCT-GLUCOSE [id number] 06:24:00 Test Item Value Reference Range Comments POC-GLUCOSE METER (BEAKER) 239 mg/dL 70-110 TESTED AT [facility] [address] (test qluf=1763) [facility] [address] CALCIUM, [id number] 06:04:00 Test Item Value Reference Range Comments CALCIUM IONIZED (BEAKER) (test lnpo=812) 1.04 mmol/L 1.12-1.27 PH, BLOOD (BEAKER) (test mvty=8425) 7.54 RAD, CHEST, 1 VIEW, NON [id number] 05:12:00Reason for exam:-> IntubatedShould this be performed at the bedside?->YesFINAL REPORT RAD, CHEST, 1 VIEW, NON DEPT INDICATION: Intubated COMPARISON: Prior day's exam FINDINGS: Portable frontal view of the chest. IMPRESSION: Support Lines: Left IJ central venous catheter again terminates superiorly, likely either in intercostal or mamillary vein. Remaining lines and tubes are stable. Lungs and pleura: Subsegmental atelectasis and coarsened interstitial markings similar to the prior date. Small bilateral effusions. No pneumothorax.Heart and mediastinum: Unchanged appearance of the mediastinal contours.Additional findings: None. Signed: JR Nguyen Robert MDReport Verified Date/Time: 02/01/2017 05:12:24 Reading Location: [facility] C013Y CT Body Reading Room PROTHROMBIN [id number] 05:11:00 Test Item Value Reference Range Comments PROTIME (BEAKER) (test zizw=849) 18.1 seconds 11.7-14.7 INR (BEAKER) (test qwog=787) 1.5 <=5.9 RECOMMENDED COUMADIN/WARFARIN INR THERAPY RANGESSTANDARD DOSE: 2.0 - 3.0 Includes: PROPHYLAXIS forvenous thrombosis, systemic embolization; TREATMENT for venous thrombosis and/or pulmonary embolus.HIGH RISK: Target INR is 2.5-3.5 for patients with mechanical heart valves.[id number] 05:07:00 Test Item Value Reference Range Comments MAGNESIUM (BEAKER) (test 2.3 mg/dL 1.6-2.6 Specimen slightly hemolyzed iemr=904) [id number] 05:07:00 Test Item Value Reference Range Comments PHOSPHORUS (BEAKER) (test 3.3 mg/dL 2.3-4.7 Specimen slightly hemolyzed bnxx=748) BASIC METABOLIC [id number] 05:07:00 Test Item Value Reference Range Comments SODIUM (BEAKER) (test 154 meq/L 136-145 gzeh=577) POTASSIUM (BEAKER) (test 3.6 meq/L 3.5-5.1 Specimen slightly dtst=898) hemolyzed CHLORIDE (BEAKER) (test 114 meq/L 98-107 bcus=970) CO2 (BEAKER) (test 29 meq/L 22-29 aret=265) BLOOD UREA NITROGEN 43 mg/dL 7-21 (BEAKER) (test gfif=792) CREATININE (BEAKER) (test 1.34 mg/dL 0.57-1.25 Specimen slightly hjfu=750) hemolyzed GLUCOSE RANDOM (BEAKER) 280 mg/dL 70-105 (test ovjr=084) CALCIUM (BEAKER) (test 8.1 mg/dL 8.4-10.2 iaus=146) EGFR (BEAKER) (test 55 mL/min/1.73 sq m ESTIMATED GFR IS NOT ekvz=7373) ACCURATE CREATININE CLEARANCE IN PREDICTING GLOMERULAR FILTRATION RATE. ESTIMATED GFR IS NOT APPLICABLE FOR DIALYSIS PATIENTS. POCT-GLUCOSE [id number] 02:45:00 Test Item Value Reference Range Comments POC-GLUCOSE METER (BEAKER) 231 mg/dL 70-110 TESTED AT [address] (test ikms=0077) [facility] [address] POCT-GLUCOSE [id number] 23:54:00 Test Item Value Reference Range Comments POC-GLUCOSE METER (BEAKER) 158 mg/dL 70-110 TESTED AT [address] (test hhxw=5600) [place] [id number] POCT-GLUCOSE [id number] 20:48:00 Test Item Value Reference Range Comments POC-GLUCOSE METER (BEAKER) 217 mg/dL 70-110 TESTED AT [address] (test xalr=5989) [place] [id number] POCT-GLUCOSE [id number] 18:55:00 Test Item Value Reference Range Comments POC-GLUCOSE METER (BEAKER) 202 mg/dL 70-110 TESTED AT [address] (test kkda=5872) [place] [address] POCT-GLUCOSE [id number] 18:55:00 Test Item Value Reference Range Comments POC-GLUCOSE METER (BEAKER) 220 mg/dL 70-110 TESTED AT [address] (test khug=4272) [place] [address] RAD, CHEST, 1 VIEW, NON [id number] 17:48:00Reason for exam:->line placement Should this be performed at the bedside?->YesFINAL REPORT TECHNIQUE: Frontal chest radiograph dated 01/31/2017. CLINICAL HISTORY: Line placement COMPARISON STUDY: Chest radiograph performed earlier the same day IMPRESSION:Left-sided vascular line has been placed. The tip of the line is in the AP projection and it is likely in the left superior intercostal vein. Stable airspace opacity in the right lung. No pleural effusion or pneumothorax. Cardiomediastinal silhouette is stable in size. No fracture. Signed: Galileo Orellana Verified Date/Time: 01/31/2017 17 :48:33 Reading Location: [facility] Radiology Reading Room POCT-GLUCOSE [id number] 17 :47:00 Test Item Value Reference Range Comments POC-GLUCOSE METER (BEAKER) 177 mg/dL 70-110 TESTED AT [address] (test qqtz=0506) [facility] [address] POCT-GLUCOSE [id number] 12:59:00 Test Item Value Reference Range Comments POC-GLUCOSE METER (BEAKER) 175 mg/dL 70-110 TESTED AT [address] (test vrnc=7306) [place] [address] POCT-GLUCOSE [id number] 12:59:00 Test Item Value Reference Range Comments POC-GLUCOSE METER (BEAKER) 163 mg/dL 70-110 TESTED AT [place] [id number] [facility] (test hhag=0251) [facility] [address] POCT-GLUCOSE [id number] 12:59:00 Test Item Value Reference Range Comments POC-GLUCOSE METER (BEAKER) 151 mg/dL 70-110 TESTED AT [address] (test rdnv=3340) [facility] [address] [id number] 11:38:00 Test Item Value Reference Range Comments PARTIAL THROMBOPLASTIN TIME (BEAKER) (test 67.0 seconds 22.5-36.0 czvh=660) CBC W/PLT COUNT & AUTO [id number] 11:00:00 Test Item Value Reference Range Comments WHITE BLOOD CELL COUNT (BEAKER) (test uciy=610) 20.8 K/ L 3.5-10.5 RED BLOOD CELL COUNT (BEAKER) (test vgde=345) 4.58 M/ L 4.63-6.08 HEMOGLOBIN (BEAKER) (test gsro=058) 13.2 GM/DL 13.7-17.5 HEMATOCRIT (BEAKER) (test vpml=207) 42.1 % 40.1-51.0 MEAN CORPUSCULAR VOLUME (BEAKER) (test qhkx=625) 91.9 fL 79.0-92.2 MEAN CORPUSCULAR HEMOGLOBIN (BEAKER) (test 28.8 pg 25.7-32.2 oimw=546) MEAN CORPUSCULAR HEMOGLOBIN CONC (BEAKER) (test 31.4 GM/DL 32.3-36.5 mllf=008) RED CELL DISTRIBUTION WIDTH (BEAKER) (test 14.9 % 11.6-14.4 fpqu=992) PLATELET COUNT (BEAKER) (test vjku=972) 417 K/CU MM 150-450 MEAN PLATELET VOLUME (BEAKER) (test wlmu=485) 10.4 fL 9.4-12.4 NUCLEATED RED BLOOD CELLS (BEAKER) (test 0 /100 WBC 0-0 tthe=703) NEUTROPHILS RELATIVE PERCENT (BEAKER) (test 75 % exao=740) LYMPHOCYTES RELATIVE PERCENT (BEAKER) (test 8 % gnki=285) MONOCYTES RELATIVE PERCENT (BEAKER) (test 6 % nzhj=977) EOSINOPHILS RELATIVE PERCENT (BEAKER) (test 0 % zryd=898) BASOPHILS RELATIVE PERCENT (BEAKER) (test 1 % sljg=330) NEUTROPHILS ABSOLUTE COUNT (BEAKER) (test 15.63 K/ L 1.78-5.38 kdrv=090) LYMPHOCYTES ABSOLUTE COUNT (BEAKER) (test 1.70 K/ L 1.32-3.57 rlsq=722) MONOCYTES ABSOLUTE COUNT (BEAKER) (test 1.25 K/ L 0.30-0.82 fwut=468) EOSINOPHILS ABSOLUTE COUNT (BEAKER) (test 0.03 K/ L 0.04-0.54 pelo=694) BASOPHILS ABSOLUTE COUNT (BEAKER) (test 0.12 K/ L 0.01-0.08 zksq=916) IMMATURE GRANULOCYTES-RELATIVE PERCENT (BEAKER) 10 % 0-1 (test ebxr=5630) (MANUAL DIFFERENTIAL)2017-01-31 11:00:00 Test Item Value Reference Range Comments TOTAL COUNTED (BEAKER) (test yhkq=4049) WBC MORPHOLOGY (BEAKER) (test bhkg=510) Normal PLT MORPHOLOGY (BEAKER) (test rqnc=812) Normal RBC MORPHOLOGY (BEAKER) (test falq=898) Normal POCT-GLUCOSE [id number] 07:58:00 Test Item Value Reference Range Comments POC-GLUCOSE METER (BEAKER) 125 mg/dL 70-110 TESTED AT [address] (test muft=7943) [place] [address] POCT-GLUCOSE [id number] 06:02:00 Test Item Value Reference Range Comments POC-GLUCOSE METER (BEAKER) 145 mg/dL 70-110 TESTED AT [address] (test nbpb=9473) [place] [address] POCT-GLUCOSE [id number] 06:02:00 Test Item Value Reference Range Comments POC-GLUCOSE METER (BEAKER) 142 mg/dL 70-110 TESTED AT [address] (test brib=2554) [facility] [address] PROTHROMBIN [id number] 05:39:00 Test Item Value Reference Range Comments PROTIME (BEAKER) (test ofls=600) 16.1 seconds 11.7-14.7 INR (BEAKER) (test nndo=388) 1.3 <=5.9 RECOMMENDED COUMADIN/WARFARIN INR THERAPY RANGESSTANDARD DOSE: 2.0 - 3.0 Includes: PROPHYLAXIS forvenous thrombosis, systemic embolization; TREATMENT for venous thrombosis and/or pulmonary embolus.HIGH RISK: Target INR is 2.5-3.5 for patients with mechanical heart valves.CALCIUM, [id number] 05:34:00 Test Item Value Reference Range Comments CALCIUM IONIZED (BEAKER) (test bmvu=822) 1.11 mmol/L 1.12-1.27 PH, BLOOD (BEAKER) (test wvtz=6623) 7.52 [id number] 05:34:00 Test Item Value Reference Range Comments PHOSPHORUS (BEAKER) (test vxyn=883) 2.5 mg/dL 2.3-4.7 [id number] 05:34:00 Test Item Value Reference Range Comments MAGNESIUM (BEAKER) (test dyce=134) 2.2 mg/dL 1.6-2.6 BASIC METABOLIC [id number] 05:34:00 Test Item Value Reference Range Comments SODIUM (BEAKER) (test 152 meq/L 136-145 sxhp=760) POTASSIUM (BEAKER) (test 3.5 meq/L 3.5-5.1 fryd=922) CHLORIDE (BEAKER) (test 112 meq/L 98-107 vqil=658) CO2 (BEAKER) (test 30 meq/L 22-29 cdxs=491) BLOOD UREA NITROGEN 37 mg/dL 7-21 (BEAKER) (test czbd=004) CREATININE (BEAKER) (test 1.05 mg/dL 0.57-1.25 ancd=375) GLUCOSE RANDOM (BEAKER) 142 mg/dL 70-105 (test mcpy=616) CALCIUM (BEAKER) (test 8.4 mg/dL 8.4-10.2 wfma=664) EGFR (BEAKER) (test 73 mL/min/1.73 sq m ESTIMATED GFR IS NOT thni=8456) ACCURATE CREATININE CLEARANCE IN PREDICTING GLOMERULAR FILTRATION RATE. ESTIMATED GFR IS NOT APPLICABLE FOR DIALYSIS PATIENTS. HEPATIC FUNCTION [id number] 05:34:00 Test Item Value Reference Range Comments TOTAL PROTEIN (BEAKER) (test iabc=913) 5.8 gm/dL 6.0-8.3 ALBUMIN (BEAKER) (test jhtl=8824) 2.5 g/dL 3.5-5.0 BILIRUBIN TOTAL (BEAKER) (test ybmn=247) 0.4 mg/dL 0.2-1.2 BILIRUBIN DIRECT (BEAKER) (test vuyz=504) 0.2 mg/dL 0.1-0.5 ALKALINE PHOSPHATASE (BEAKER) (test ptne=482) 182 U/L 40-150 AST (SGOT) (BEAKER) (test xkoa=273) 23 U/L 5-34 ALT (SGPT) (BEAKER) (test voly=337) 13 U/L 6-55 POCT-GLUCOSE [id number] 04:37:00 Test Item Value Reference Range Comments POC-GLUCOSE METER (BEAKER) 128 mg/dL 70-110 TESTED AT [address] (test fzes=2765) [facility] [address] RAD, CHEST, 1 VIEW, NON [id number] 04:30:00Reason for exam:-> IntubatedShould this be performed at the bedside?->YesFINAL REPORT Comparison exam: 01/30/2017 Subsegmental right lung atelectasis unchanged. No pneumothorax. Stable cardiomediastinal contours. Appropriate position of the support hardware. Signed: David Romo Verified Date/Time: 01/31/2017 04:30:06 Reading Location: [address] Ortho Consult Reading Room 04 :30 AMCT, [id number] 02:14:00 WILL REQUIRE ORAL CONTRASTFINAL REPORT CT scan of the abdomen and pelvis: CLINICAL HISTORY: Infection. Status post low anterior resection 01/21/2017. Ileostomy 01/24/2017. TECHNIQUE: CT scan of the abdomen and pelvis with oral contrast. Dose modulation , iterative reconstruction, and/or weight based adjustment of the mA/kV was utilized to reduce the radiation dose to as low as reasonably achievable. FINDINGS: Bilateral lower lobe atelectasis. Small right pleural effusion. Normal -sized heart. No pericardial effusion. Normal liver and pancreas. Splenomegaly. High density intraluminal gallbladder contentslikely representing vicarious excretion of contrast. An NG [...] of fluid and air in the vicinity ofthe rectal suture line concerning for anastomotic leak. [...] anterior resection and ileostomy creation. Signed: David RomoMDReport Verified Date/Time: 01/31/2017 02:14:26 Reading Location: [facility] [id number] [facility] Consult Reading Room POCT-GLUCOSE [id number] 01:54:00 Test Item Value Reference Range Comments POC-GLUCOSE METER (BEAKER) 169 mg/dL 70-110 TESTED AT [facility] [address] [place] [address] (test tvba=7689) [facility] [address] [id number] 01:19:00 Test Item Value Reference Range Comments PARTIAL THROMBOPLASTIN TIME (BEAKER) (test 107.2 seconds 22.5-36.0 haoe=499) POCT-GLUCOSE [id number] 00:51:00 Test Item Value Reference Range Comments POC-GLUCOSE METER (BEAKER) 210 mg/dL 70-110 TESTED AT [address] (test xwrx=4285) [facility] [address] [id number] 00:38:00 Test Item Value Reference Range Comments PARTIAL THROMBOPLASTIN TIME (BEAKER) (test > seconds 22.5-36.0 ubnd=086) POCT-GLUCOSE [id number] 23:42:00 Test Item Value Reference Range Comments POC-GLUCOSE METER (BEAKER) 194 mg/dL 70-110 TESTED AT [address] (test fiku=7609) [facility] [address] POCT-GLUCOSE [id number] 23:12:00 Test Item Value Reference Range Comments POC-GLUCOSE METER (BEAKER) 211 mg/dL 70-110 TESTED AT [address] (test jveq=1875) [facility] [address] POCT-GLUCOSE [id number] 21:48:00 Test Item Value Reference Range Comments POC-GLUCOSE METER (BEAKER) 226 mg/dL 70-110 TESTED AT [address] (test pzsh=2886) [facility] [address] POCT-GLUCOSE [id number] 20:24:00 Test Item Value Reference Range Comments POC-GLUCOSE METER (BEAKER) 258 mg/dL 70-110 TESTED AT [address] (test hnzo=4257) [facility] [address] POCT-GLUCOSE [id number] 18:27:00 Test Item Value Reference Range Comments POC-GLUCOSE METER (BEAKER) 312 mg/dL 70-110 Will Repeat Test/TESTED AT (test euca=8719) [address] [address] POCT-GLUCOSE [id number] 17:59:00 Test Item Value Reference Range Comments POC-GLUCOSE METER (BEAKER) 332 mg/dL 70-110 Will Repeat Test/TESTED AT (test jphh=5135) [address] [address] [id number] 15:44:00 Test Item Value Reference Range Comments PARTIAL THROMBOPLASTIN TIME (BEAKER) (test 92.2 seconds 22.5-36.0 rlzx=490) POCT-GLUCOSE [id number] 15:26:00 Test Item Value Reference Range Comments POC-GLUCOSE METER (BEAKER) 371 mg/dL 70-110 TESTED AT [address] (test tiel=3353) [facility] [address] POCT-GLUCOSE [id number] 15:17:00 Test Item Value Reference Range Comments POC-GLUCOSE METER (BEAKER) 311 mg/dL 70-110 TESTED AT [address] (test oqri=3531) [facility] [address] POCT-GLUCOSE [id number] 15:17:00 Test Item Value Reference Range Comments POC-GLUCOSE METER (BEAKER) 271 mg/dL 70-110 TESTED AT [address] (test jazf=0255) [facility] [address] CBC W/PLT COUNT & AUTO [id number] 13:31:00 Test Item Value Reference Range Comments WHITE BLOOD CELL COUNT (BEAKER) (test swun=988) 16.4 K/ L 3.5-10.5 RED BLOOD CELL COUNT (BEAKER) (test woqy=716) 4.59 M/ L 4.63-6.08 HEMOGLOBIN (BEAKER) (test nbuc=104) 13.3 GM/DL 13.7-17.5 HEMATOCRIT (BEAKER) (test sozg=906) 41.6 % 40.1-51.0 MEAN CORPUSCULAR VOLUME (BEAKER) (test dfun=488) 90.6 fL 79.0-92.2 MEAN CORPUSCULAR HEMOGLOBIN (BEAKER) (test 29.0 pg 25.7-32.2 upwx=211) MEAN CORPUSCULAR HEMOGLOBIN CONC (BEAKER) (test 32.0 GM/DL 32.3-36.5 upgi=239) RED CELL DISTRIBUTION WIDTH (BEAKER) (test 14.9 % 11.6-14.4 dijw=070) PLATELET COUNT (BEAKER) (test mdgr=954) 329 K/CU MM 150-450 MEAN PLATELET VOLUME (BEAKER) (test udai=943) 10.6 fL 9.4-12.4 NUCLEATED RED BLOOD CELLS (BEAKER) (test 0 /100 WBC 0-0 jeev=184) NEUTROPHILS RELATIVE PERCENT (BEAKER) (test 73 % dvnw=595) LYMPHOCYTES RELATIVE PERCENT (BEAKER) (test 9 % ohyf=621) MONOCYTES RELATIVE PERCENT (BEAKER) (test 7 % ymmc=343) EOSINOPHILS RELATIVE PERCENT (BEAKER) (test 0 % wllo=565) BASOPHILS RELATIVE PERCENT (BEAKER) (test 0 % knro=307) NEUTROPHILS ABSOLUTE COUNT (BEAKER) (test 11.91 K/ L 1.78-5.38 glss=415) LYMPHOCYTES ABSOLUTE COUNT (BEAKER) (test 1.49 K/ L 1.32-3.57 rlle=849) MONOCYTES ABSOLUTE COUNT (BEAKER) (test 1.08 K/ L 0.30-0.82 twey=315) EOSINOPHILS ABSOLUTE COUNT (BEAKER) (test 0.03 K/ L 0.04-0.54 czuo=596) BASOPHILS ABSOLUTE COUNT (BEAKER) (test 0.03 K/ L 0.01-0.08 kvtl=142) IMMATURE GRANULOCYTES-RELATIVE PERCENT (BEAKER) 11 % 0-1 (test ltcf=8138) (MANUAL DIFFERENTIAL)2017-01-30 13:31:00 Test Item Value Reference Range Comments NEUTROPHILS - REL (DIFF) (BEAKER) (test 72 % vvcz=1088) LYMPHOCYTES - REL (DIFF) (BEAKER) (test 14 % bqdd=1108) MONOCYTES - REL (DIFF) (BEAKER) (test mayy=7234) 2 % METAMYELOCYTES-REL (DIFF) (BEAKER) (test 1 % 0-0 szrp=015) MYELOCYTES-REL (DIFF) (BEAKER) (test vmnj=4855) 2 % 0-0 BANDS - REL (DIFF) (BEAKER) (test ibxg=5661) 9 % 0-10 NEUTROPHILS - ABS (DIFF) (BEAKER) (test 11.81 K/ L 1.80-8.00 lgpb=1186) LYMPHOCYTES - ABS (DIFF) (BEAKER) (test 2.30 K/ L 1.48-4.50 ikxe=8701) MONOCYTES - ABS (DIFF) (BEAKER) (test hvff=5961) 0.33 K/ L 0.00-1.30 METAMYELOCTYES - ABS (DIFF) (BEAKER) (test 0.16 K/ L 0.00-0.00 svfw=908) BANDS-ABS (DIFF) (BEAKER) (test kasv=2198) 1.5 K/ L 0.0-0.8 MYELOCYTES-ABS (DIFF) (BEAKER) (test lcwv=8735) 0.33 K/ L 0.00-0.00 TOTAL COUNTED (BEAKER) (test iaaj=1113) 100 BANDS + SEGMENTED NEUTROPHILS (BEAKER) (test 13.28 iaqy=8325) MANUAL NRBC PER 100 CELLS (BEAKER) (test 1 /100 WBC 0-0 ssnj=1188) RBC MORPHOLOGY (BEAKER) (test gfkj=482) Normal ATYPICAL LYMPHS(BEAKER) (test wkfn=1313) Present LARGE PLT(BEAKER) (test otek=0068) Present POCT-GLUCOSE [id number] 13:20:00 Test Item Value Reference Range Comments POC-GLUCOSE METER (BEAKER) 304 mg/dL 70-110 Notified CATE NICHOLS/TESTED AT [facility] (test nhmg=4545) [address] [place] [address] RAD, ABDOMEN/KUB, 1 VIEW [id number] 11:13:00Reason for exam:->ileusFINAL REPORT Abdomen one view Comparison: January 27, 2017 Reason for exam: ileus Findings: Corpak and feeding tube project over the gastric body. There is a paucity of bowel gas, a nonspecific finding. Contrast is noted in the colon, which does not appear distended. No free air is identified. Signed: Mac Santamaria Verified Date/Time: 01/30/2017 11:13:36 Reading Location:[facility] [address] Radiology Reading Room LACTIC ACID, VENOUS, WHOLE [id number] 11:04:00 Test Item Value Reference Range Comments LACTATE BLOOD VENOUS (2) (BEAKER) (test 1.5 mmol/L 0.5-2.2 johh=8553) Effective 06/29/2015: Units/Reference Range ChangeNew: 0.5-2.2 mmol/L Previous: 5 -20 mg/dLOCCULT BLOOD, [id number] 08:44:00 Test Item Value Reference Range Comments FECAL OCCULT BLOOD (BEAKER) (test wvey=753) Negative Negative [id number] 06:46:00 Test Item Value Reference Range Comments PARTIAL THROMBOPLASTIN TIME (BEAKER) (test 44.7 seconds 22.5-36.0 bsmc=096) POCT-GLUCOSE [id number] 06:42:00 Test Item Value Reference Range Comments POC-GLUCOSE METER (BEAKER) 187 mg/dL 70-110 TESTED AT [address] (test fmry=0474) [place] [address] RAD, CHEST, 1 VIEW, NON [id number] 06:00:00Reason for exam:-> IntubatedShould this be performed at the bedside?->YesFINAL REPORT Comparison exam: 01/29/2017 Suboptimal chest x-ray secondary to right anterior oblique rotation. Low lung volumes. Bilateral subsegmental lower lobe atelectasis. Stable cardiomediastinal contours. Appropriate position of the support hardware. Signed: David Romo Verified Date/Time: 06:00:36 Reading Location: [address] Ortho Consult Reading Room POCT- GLUCOSE [id number] 05:19:00 Test Item Value Reference Range Comments POC-GLUCOSE METER (BEAKER) 141 mg/dL 70-110 TESTED AT [address] (test gwka=8484) [place] [address] POCT-GLUCOSE [id number] 05:19:00 Test Item Value Reference Range Comments POC-GLUCOSE METER (BEAKER) 140 mg/dL 70-110 TESTED AT [address] (test gpgl=7619) [place] [address] CALCIUM, [id number] 04:51:00 Test Item Value Reference Range Comments CALCIUM IONIZED (BEAKER) (test tkre=412) 1.07 mmol/L 1.12-1.27 PH, BLOOD (BEAKER) (test ytpk=2820) 7.53 BLOOD GAS, [id number] 04:48:00 Test Item Value Reference Range Comments PH ARTERIAL (BEAKER) (test lwef=615) 7.50 7.35-7.45 PCO2 ARTERIAL (BEAKER) (test gsva=927) 44 mmHg 35-45 PO2 ARTERIAL (BEAKER) (test vmqu=867) 130 mmHg 80-90 O2 SATURATION ARTERIAL (BEAKER) (test oqxk=480) 98.7 % 96.0-97.0 HCO3 ARTERIAL (BEAKER) (test uogq=633) 34 mmol/L 21-29 BASE EXCESS ARTERIAL (BEAKER) (test nrjq=733) 9.9 mmol/L -2.0-3.0 PATIENT TEMPERATURE (BEAKER) (test phfl=2750) 38.6 C FIO2 (BEAKER) (test jadb=9291) 40.0 % PROTHROMBIN [id number] 04:45:00 Test Item Value Reference Range Comments PROTIME (BEAKER) (test ybli=673) 16.1 seconds 11.7-14.7 INR (BEAKER) (test ezvl=736) 1.3 <=5.9 RECOMMENDED COUMADIN/WARFARIN INR THERAPY RANGESSTANDARD DOSE: 2.0 - 3.0 Includes: PROPHYLAXIS forvenous thrombosis, systemic embolization; TREATMENT for venous thrombosis and/or pulmonary embolus.HIGH RISK: Target INR is 2.5-3.5 for patients with mechanical heart valves.[id number] 04:45:00 Test Item Value Reference Range Comments PHOSPHORUS (BEAKER) (test tsxz=743) 1.9 mg/dL 2.3-4.7 [id number] 04:45:00 Test Item Value Reference Range Comments MAGNESIUM (BEAKER) (test fghf=388) 2.0 mg/dL 1.6-2.6 BASIC METABOLIC [id number] 04:45:00 Test Item Value Reference Range Comments SODIUM (BEAKER) (test 150 meq/L 136-145 ilyz=517) POTASSIUM (BEAKER) (test 3.4 meq/L 3.5-5.1 dfeg=063) CHLORIDE (BEAKER) (test 109 meq/L 98-107 zvwk=087) CO2 (BEAKER) (test 31 meq/L 22-29 spjk=720) BLOOD UREA NITROGEN 27 mg/dL 7-21 (BEAKER) (test czps=419) CREATININE (BEAKER) (test 1.06 mg/dL 0.57-1.25 axtg=067) GLUCOSE RANDOM (BEAKER) 144 mg/dL 70-105 (test yqfq=166) CALCIUM (BEAKER) (test 8.1 mg/dL 8.4-10.2 yguu=544) EGFR (BEAKER) (test 72 mL/min/1.73 sq m ESTIMATED GFR IS NOT fsqk=4876) ACCURATE CREATININE CLEARANCE IN PREDICTING GLOMERULAR FILTRATION RATE. ESTIMATED GFR IS NOT APPLICABLE FOR DIALYSIS PATIENTS. POCT-GLUCOSE [id number] 02:46:00 Test Item Value Reference Range Comments POC-GLUCOSE METER (BEAKER) 157 mg/dL 70-110 TESTED AT [address] (test zqyx=3670) [place] [address] POCT-GLUCOSE [id number] 02:27:00 Test Item Value Reference Range Comments POC-GLUCOSE METER (BEAKER) 133 mg/dL 70-110 TESTED AT [address] (test tqwt=6748) [place] [address] POCT-GLUCOSE [id number] 00:02:00 Test Item Value Reference Range Comments POC-GLUCOSE METER (BEAKER) 135 mg/dL 70-110 TESTED AT [address] (test fydr=2853) [place] [id number] POCT-GLUCOSE [id number] 23:35:00 Test Item Value Reference Range Comments POC-GLUCOSE METER (BEAKER) 138 mg/dL 70-110 TESTED AT [address] (test zuod=7964) [place] [address] [address], BRAIN, WITHOUT [id number] 22:34:00Portable CT HeadFINAL REPORT Clinical history : Decreased alertness. Less [...] effacement, intraparenchymal hemorrhage, or extra axial fluid collection.No acute infarction is identified. Atherosclerotic calcifications of the intracranial circulation. Mild bilateral maxillary sinus mucosal thickening. The visualized paranasal sinuses and tympanomastoid cavities are otherwise well pneumatized. Normal orbitalcontents, skull base, and calvarium. Impression: No acute abnormalities. Signed: David Romo MDReport Verified Date/Time: 01/29/2017 22 :34:49 Reading Location: [facility] [id number] Ortho Consult Reading Room POCT- GLUCOSE [id number] 21:01:00 Test Item Value Reference Range Comments POC-GLUCOSE METER (BEAKER) 108 mg/dL 70-110 TESTED AT [address] (test leiv=9423) [place] [address] POCT-GLUCOSE [id number] 19:59:00 Test Item Value Reference Range Comments POC-GLUCOSE METER (BEAKER) 117 mg/dL 70-110 TESTED AT [address] (test mhbo=7188) [place] [address] POCT-GLUCOSE [id number] 19:04:00 Test Item Value Reference Range Comments POC-GLUCOSE METER (BEAKER) 144 mg/dL 70-110 TESTED AT [address] (test fmdy=3032) [place] [address] [id number] 18:14:00 Test Item Value Reference Range Comments PARTIAL THROMBOPLASTIN TIME (BEAKER) (test 88.5 seconds 22.5-36.0 pltc=187) POCT-GLUCOSE [id number] 17:48:00 Test Item Value Reference Range Comments POC-GLUCOSE METER (BEAKER) 175 mg/dL 70-110 TESTED AT [address] (test zdku=9951) [place] [address] BLOOD [id number] 17:32:00 Test Item Value Reference Range Comments CULTURE (BEAKER) From Aerobic Bottle Only (test othy=3567) Coagulase negative Staphylococcusof a second type GRAM STAIN RESULT From aerobic bottle (BEAKER) (test only: gram positive qvrs=8478) cocci in clusters Coagulase Negative Staphylococcus Species (CoNS) DETECTED, Methicillin Susceptible First line therapy: cefazolin, nafcillin (nafcillin preferred for Central Nervous System infection) Coagulase Negative Staphylococcus (CoNS) DETECTEDmecA NOT DETECTEDOther organisms and resistance markers not containedin this PCR panel cannot be excluded and follow-up of traditional culture results is required. This sample was tested at the [facility] using the [employer] Film[employer] Blood Culture ID Panel. This test is FDA cleared for in vitro diagnostic use and has been verified and approved by the [facility] for clinical use. Reference Range: Not DetectedBLOOD GAS, [id number] 16:52:00 Test Item Value Reference Range Comments PH ARTERIAL (BEAKER) (test ytuk=775) 7.51 7.35-7.45 PCO2 ARTERIAL (BEAKER) (test lmcy=448) 41 mmHg 35-45 PO2 ARTERIAL (BEAKER) (test wuas=242) 91 mmHg 80-90 O2 SATURATION ARTERIAL (BEAKER) (test vbex=128) 97.5 % 96.0-97.0 HCO3 ARTERIAL (BEAKER) (test grom=919) 32 mmol/L 21-29 BASE EXCESS ARTERIAL (BEAKER) (test qscp=746) 8.4 mmol/L -2.0-3.0 PATIENT TEMPERATURE (BEAKER) (test hcln=0909) 37.0 C FIO2 (BEAKER) (test ynmz=1907) 100.0 % POCT-GLUCOSE [id number] 16:38:00 Test Item Value Reference Range Comments POC-GLUCOSE METER (BEAKER) 164 mg/dL 70-110 TESTED AT [address] (test zecj=9309) [place] [address] MISCELLANEOUS LAB [id number] 14:45:00 Test Item Value Reference Range Comments SCAN RESULT (test mzdz=[id number]) Result comments: Coagulase Negative Staphylococcus Species (CoNS) DETECTED, Methicillin Susceptible First line therapy: cefazolin, nafcillin (nafcillin preferred for Central Nervous System infection) Coagulase Negative Staphylococcus (CoNS) DETECTED mecA NOT DETECTED Other organisms and resistance markers not contained in this PCR panel cannot be excluded and follow-up of traditional culture results is required. This sample was tested at the [facility] using the [employer] Film[employer] Blood Culture ID Panel. This test is FDA cleared for in vitro diagnostic use and has been verified and approved by the [facility] for clinical use. Reference Range: Not DetectedPOCT-GLUCOSE [id number] 14:26:00 Test Item Value Reference Range Comments POC-GLUCOSE METER (BEAKER) 179 mg/dL 70-110 TESTED AT [address] (test derg=4568) [place] [address] POCT-GLUCOSE [id number] 13:25:00 Test Item Value Reference Range Comments POC-GLUCOSE METER (BEAKER) 186 mg/dL 70-110 TESTED AT [address] (test yuyd=1017) [place] [id number] POCT-GLUCOSE [id number] 12:08:00 Test Item Value Reference Range Comments POC-GLUCOSE METER (BEAKER) 193 mg/dL 70-110 TESTED AT [address] (test snzl=4868) [place] [id number] BLOOD GAS, [id number] 11:31:00 Test Item Value Reference Range Comments PH ARTERIAL (BEAKER) (test cgcq=632) 7.47 7.35-7.45 PCO2 ARTERIAL (BEAKER) (test japb=341) 47 mmHg 35-45 PO2 ARTERIAL (BEAKER) (test wbdj=392) 124 mmHg 80-90 O2 SATURATION ARTERIAL (BEAKER) (test iubn=047) 98.5 % 96.0-97.0 HCO3 ARTERIAL (BEAKER) (test gbhx=144) 33 mmol/L 21-29 BASE EXCESS ARTERIAL (BEAKER) (test sggx=810) 8.4 mmol/L -2.0-3.0 PATIENT TEMPERATURE (BEAKER) (test sqps=2024) 38.0 C FIO2 (BEAKER) (test frkb=3481) 40.0 % POCT-GLUCOSE [id number] 11:14:00 Test Item Value Reference Range Comments POC-GLUCOSE METER (BEAKER) 181 mg/dL 70-110 TESTED AT [address] (test jszt=5106) [place] [address] [id number] 10:20:00 Test Item Value Reference Range Comments PARTIAL THROMBOPLASTIN TIME (BEAKER) (test 89.6 seconds 22.5-36.0 kuzk=870) POCT-GLUCOSE [id number] 10:05:00 Test Item Value Reference Range Comments POC-GLUCOSE METER (BEAKER) 204 mg/dL 70-110 TESTED AT [address] (test kivt=6496) [place] [id number] POCT-GLUCOSE [id number] 09:09:00 Test Item Value Reference Range Comments POC-GLUCOSE METER (BEAKER) 221 mg/dL 70-110 TESTED AT [address] (test xvjk=7953) [facility] [address] POCT-GLUCOSE [id number] 07:41:00 Test Item Value Reference Range Comments POC-GLUCOSE METER (BEAKER) 230 mg/dL 70-110 TESTED AT [address] (test pynl=5809) [place] [id number] POCT-GLUCOSE [id number] 07:05:00 Test Item Value Reference Range Comments POC-GLUCOSE METER (BEAKER) 219 mg/dL 70-110 TESTED AT [address] (test qgdi=2766) [place] [id number] CBC W/PLT COUNT & AUTO [id number] 06:49:00 Test Item Value Reference Range Comments WHITE BLOOD CELL COUNT (BEAKER) (test fjik=970) 13.3 K/ L 3.5-10.5 RED BLOOD CELL COUNT (BEAKER) (test bbcf=185) 4.09 M/ L 4.63-6.08 HEMOGLOBIN (BEAKER) (test tewn=042) 12.0 GM/DL 13.7-17.5 HEMATOCRIT (BEAKER) (test nvrh=110) 37.5 % 40.1-51.0 MEAN CORPUSCULAR VOLUME (BEAKER) (test kprg=831) 91.7 fL 79.0-92.2 MEAN CORPUSCULAR HEMOGLOBIN (BEAKER) (test 29.3 pg 25.7-32.2 ohzr=978) MEAN CORPUSCULAR HEMOGLOBIN CONC (BEAKER) (test 32.0 GM/DL 32.3-36.5 mqtb=958) RED CELL DISTRIBUTION WIDTH (BEAKER) (test 14.9 % 11.6-14.4 vbkj=239) PLATELET COUNT (BEAKER) (test pqex=587) 207 K/CU MM 150-450 MEAN PLATELET VOLUME (BEAKER) (test pkfo=369) 10.6 fL 9.4-12.4 NUCLEATED RED BLOOD CELLS (BEAKER) (test 0 /100 WBC 0-0 wbdb=201) NEUTROPHILS RELATIVE PERCENT (BEAKER) (test 82 % xiou=079) LYMPHOCYTES RELATIVE PERCENT (BEAKER) (test 4 % mquu=396) MONOCYTES RELATIVE PERCENT (BEAKER) (test 6 % pjle=077) EOSINOPHILS RELATIVE PERCENT (BEAKER) (test 0 % dmdx=485) BASOPHILS RELATIVE PERCENT (BEAKER) (test 0 % nwpv=329) NEUTROPHILS ABSOLUTE COUNT (BEAKER) (test 10.93 K/ L 1.78-5.38 ixaq=224) LYMPHOCYTES ABSOLUTE COUNT (BEAKER) (test 0.54 K/ L 1.32-3.57 ddun=239) MONOCYTES ABSOLUTE COUNT (BEAKER) (test 0.85 K/ L 0.30-0.82 tdzj=941) EOSINOPHILS ABSOLUTE COUNT (BEAKER) (test 0.01 K/ L 0.04-0.54 lkbg=928) BASOPHILS ABSOLUTE COUNT (BEAKER) (test 0.04 K/ L 0.01-0.08 hntv=086) IMMATURE GRANULOCYTES-RELATIVE PERCENT (BEAKER) 7 % 0-1 (test ljbk=6266) (MANUAL DIFFERENTIAL)2017-01-29 06:49:00 Test Item Value Reference Range Comments NEUTROPHILS - REL (DIFF) (BEAKER) (test 79 % webo=8408) LYMPHOCYTES - REL (DIFF) (BEAKER) (test 6 % lbxp=6944) MONOCYTES - REL (DIFF) (BEAKER) (test vjqs=2151) 5 % EOSINOPHILS - REL (DIFF) (BEAKER) (test 0 % niqz=0849) BASOPHILS - REL (DIFF) (BEAKER) (test ccja=3160) 0 % METAMYELOCYTES-REL (DIFF) (BEAKER) (test 1 % 0-0 lwis=383) MYELOCYTES-REL (DIFF) (BEAKER) (test kfmj=1835) 1 % 0-0 PROMYELOCYTES-REL (DIFF) (BEAKER) (test xjen=560) 1 % 0-0 BANDS - REL (DIFF) (BEAKER) (test cjfo=8268) 7 % 0-10 NEUTROPHILS - ABS (DIFF) (BEAKER) (test 10.51 K/ L 1.80-8.00 eeou=8702) LYMPHOCYTES - ABS (DIFF) (BEAKER) (test 0.80 K/ L 1.48-4.50 eape=2621) MONOCYTES - ABS (DIFF) (BEAKER) (test iuyx=7534) 0.67 K/ L 0.00-1.30 EOSINOPHILS - ABS (DIFF) (BEAKER) (test 0.00 K/ L 0.00-0.50 usxs=9998) BASOPHILS - ABS (DIFF) (BEAKER) (test yoxm=7640) 0.00 K/ L 0.00-0.20 METAMYELOCTYES - ABS (DIFF) (BEAKER) (test 0.13 K/ L 0.00-0.00 hoqt=865) PROMYELOCYTES - ABS (DIFF) (BEAKER) (test 0.13 K/ L 0.00-0.00 numv=358) BANDS-ABS (DIFF) (BEAKER) (test tywz=4024) 0.9 K/ L 0.0-0.8 MYELOCYTES-ABS (DIFF) (BEAKER) (test yerz=8959) 0.13 K/ L 0.00-0.00 TOTAL COUNTED (BEAKER) (test zsnh=4748) 100 BANDS + SEGMENTED NEUTROPHILS (BEAKER) (test 11.44 asvj=6175) WBC MORPHOLOGY (BEAKER) (test qnsm=494) Normal RBC MORPHOLOGY (BEAKER) (test irug=976) Normal LARGE PLT(BEAKER) (test kfcy=4518) Present POCT-GLUCOSE [id number] 05:56:00 Test Item Value Reference Range Comments POC-GLUCOSE METER (BEAKER) 207 mg/dL 70-110 TESTED AT [facility] [address] [facility] (test anig=5236) [facility] [address] POCT-GLUCOSE [id number] 05:56:00 Test Item Value Reference Range Comments POC-GLUCOSE METER (BEAKER) 233 mg/dL 70-110 TESTED AT [address] (test tuxa=1354) [facility] [address] RAD, CHEST, 1 VIEW, NON [id number] 05:42:00Reason for exam:-> IntubatedShould this be performed at the bedside?->YesFINAL REPORT Comparison exam: 01/28/2017 No pneumothorax, focal pulmonary consolidation, or significant pleural effusion. Stable cardiomediastinal contours. Appropriate position of the support hardware. Signed: David Romo Verified Date/Time: 01/29/2017 05:42:39 Reading Location: [address] Reading Room POCT-GLUCOSE [id number] 05:33:00 Test Item Value Reference Range Comments POC-GLUCOSE METER (BEAKER) 229 mg/dL 70-110 TESTED AT [facility] [address] [facility] (test miph=2935) [facility] [address] BLOOD [id number] 05:01:00 Test Item Value Reference Range Comments CULTURE (BEAKER) (test xkpl=0320) No growth in 5 days BLOOD GAS, [id number] 04:38:00 Test Item Value Reference Range Comments PH ARTERIAL (BEAKER) (test thux=990) 7.41 7.35-7.45 PCO2 ARTERIAL (BEAKER) (test wans=038) 52 mmHg 35-45 PO2 ARTERIAL (BEAKER) (test rtkz=395) 189 mmHg 80-90 O2 SATURATION ARTERIAL (BEAKER) (test pxvt=162) 99.3 % 96.0-97.0 HCO3 ARTERIAL (BEAKER) (test cggv=265) 32 mmol/L 21-29 BASE EXCESS ARTERIAL (BEAKER) (test uiwj=672) 6.1 mmol/L -2.0-3.0 PATIENT TEMPERATURE (BEAKER) (test nisf=0921) 37.5 C FIO2 (BEAKER) (test stgf=0081) 40.0 % CALCIUM, [id number] 04:36:00 Test Item Value Reference Range Comments CALCIUM IONIZED (BEAKER) (test uces=597) 1.06 mmol/L 1.12-1.27 PH, BLOOD (BEAKER) (test kijs=3335) 7.42 [id number] 04:18:00 Test Item Value Reference Range Comments MAGNESIUM (BEAKER) (test 2.0 mg/dL 1.6-2.6 Specimen slightly hemolyzed unxh=175) [id number] 04:18:00 Test Item Value Reference Range Comments PHOSPHORUS (BEAKER) (test 2.4 mg/dL 2.3-4.7 Specimen slightly hemolyzed dbnd=529) BASIC METABOLIC [id number] 04:18:00 Test Item Value Reference Range Comments SODIUM (BEAKER) (test 143 meq/L 136-145 jcog=014) POTASSIUM (BEAKER) (test 3.7 meq/L 3.5-5.1 Specimen slightly zkrr=201) hemolyzed CHLORIDE (BEAKER) (test 106 meq/L 98-107 hsnl=836) CO2 (BEAKER) (test 28 meq/L 22-29 dvqa=182) BLOOD UREA NITROGEN 21 mg/dL 7-21 (BEAKER) (test gdno=230) CREATININE (BEAKER) (test 1.11 mg/dL 0.57-1.25 Specimen slightly mrzz=278) hemolyzed GLUCOSE RANDOM (BEAKER) 243 mg/dL 70-105 (test azri=097) CALCIUM (BEAKER) (test 8.2 mg/dL 8.4-10.2 sajo=792) EGFR (BEAKER) (test 68 mL/min/1.73 sq m ESTIMATED GFR IS NOT pjsx=1525) ACCURATE CREATININE CLEARANCE IN PREDICTING GLOMERULAR FILTRATION RATE. ESTIMATED GFR IS NOT APPLICABLE FOR DIALYSIS PATIENTS. PROTHROMBIN [id number] 04:03:00 Test Item Value Reference Range Comments PROTIME (BEAKER) (test tfpf=777) 15.8 seconds 11.7-14.7 INR (BEAKER) (test xaur=859) 1.3 <=5.9 RECOMMENDED COUMADIN/WARFARIN INR THERAPY RANGESSTANDARD DOSE: 2.0 - 3.0 Includes: PROPHYLAXIS forvenous thrombosis, systemic embolization; TREATMENT for venous thrombosis and/or pulmonary embolus.HIGH RISK: Target INR is 2.5-3.5 for patients with mechanical heart valves.[id number] 02:06:00 Test Item Value Reference Range Comments PARTIAL THROMBOPLASTIN TIME (BEAKER) (test 63.8 seconds 22.5-36.0 qdpi=034) POCT-GLUCOSE [id number] 01:56:00 Test Item Value Reference Range Comments POC-GLUCOSE METER (BEAKER) 229 mg/dL 70-110 TESTED AT [address] (test rljl=0253) [facility] [address] POCT-GLUCOSE [id number] 01:31:00 Test Item Value Reference Range Comments POC-GLUCOSE METER (BEAKER) 259 mg/dL 70-110 TESTED AT [address] (test fcbw=1970) [facility] [address] POCT-GLUCOSE [id number] 23:03:00 Test Item Value Reference Range Comments POC-GLUCOSE METER (BEAKER) 224 mg/dL 70-110 TESTED AT [address] (test agib=8311) [facility] [address] POCT-GLUCOSE [id number] 22:13:00 Test Item Value Reference Range Comments POC-GLUCOSE METER (BEAKER) 185 mg/dL 70-110 TESTED AT [address] (test wmfs=3726) [facility] [address] POCT-GLUCOSE [id number] 21:03:00 Test Item Value Reference Range Comments POC-GLUCOSE METER (BEAKER) 164 mg/dL 70-110 TESTED AT [address] (test fynj=1434) [facility] [address] POCT-GLUCOSE [id number] 20:17:00 Test Item Value Reference Range Comments POC-GLUCOSE METER (BEAKER) 146 mg/dL 70-110 TESTED AT [address] (test vfci=5750) [facility] [address] [id number] 17:40:00 Test Item Value Reference Range Comments PARTIAL THROMBOPLASTIN TIME (BEAKER) (test 68.9 seconds 22.5-36.0 duhr=391) [id number] 17:31:00 Test Item Value Reference Range Comments TRIGLYCERIDES (BEAKER) (test ukuv=845) 91 mg/dL TRIGLYCERIDE REFERENCE RANGELow Risk <150Borderline Risk 150-199High Risk 200-499Very High Risk>=500RAD, CHEST, 1 VIEW, NON [id number] 17:26: 00Reason for exam:->line placement after pulling line back Should this be performed at the bedside?->YesFINAL REPORT Chest, 1 view. History: Central venous catheter reposition. Comparison: 01/28/2017 at 1332. FINDINGS/IMPRESSION: The right IJ coursing central venous catheter has been retracted with distal tip now superimposed over the cavoatrial junction. Remaining lines and tubes are stable in position. Lung volumes remain low. There is continued interstitial opacities bilaterally and mild prominence of the pulmonary vasculature. Small left pleural effusion is suspected. Thereis no evidence of new large focal consolidation or pneumothorax. The cardiomediastinal silhouette isstable in appearance. No acute osseous abnormality is identified. Signed: Talat Hare MDReport Verified Date/Time: 01/28/2017 17:26:47 Reading Location: [facility] C013W Consult Reading Room POCT- GLUCOSE [id number] 16:45:00 Test Item Value Reference Range Comments POC-GLUCOSE METER (BEAKER) 90 mg/dL 70-110 TESTED AT [address] (test rpse=9112) [place] [address] RAD, CHEST, 1 VIEW, NON [id number] 16:15:00Reason for exam:->pulled back central line Should this be performed at the bedside?->YesFINAL REPORT Chest one view. Clinical history: pulled back central line Comparison: 01/28/2017 Discussion: A frontal chest is provided. Cardiomediastinal contours are unchanged. Lines and tubes are in grossly stable position. Low lung volume. There is interstitial prominencesuggestive of edema. Probable small left effusion. Mild bibasilar consolidation or atelectasis. No pneumothorax. Signed: Mac Santamaria Verified Date/Time: 05/2016 16:15:11 Reading Location: [address] Consult Reading Room POCT-GLUCOSE [id number] 16:14:00 Test Item Value Reference Range Comments POC-GLUCOSE METER (BEAKER) 88 mg/dL 70-110 TESTED AT [address] (test uofk=3887) [place] [address] POCT-GLUCOSE [id number] 14:35:00 Test Item Value Reference Range Comments POC-GLUCOSE METER (BEAKER) 92 mg/dL 70-110 TESTED AT [address] (test hrzb=8245) [place] [address] CLOSTRIDIUM DIFFICILE TOXIN [id number] 13:58:00 Test Item Value Reference Range Comments CLOSTRIDIUM DIFFICILE TOXIN, PCR (BEAKER) (test Not Detected Not Detected ykpl=5910) This qualitative real-time polymerase chain reaction assay detects the tcdB gene , encoded on the C.difficile pathogenicity locus (PaLoc). The product of tcdB, toxin B, is a cytotoxin essential for causing C.difficile-associated disease ( CDAD) and is found in virtually all toxigenic C.difficile.This assay is performed for patients suspected of having either community-acquired or nosocomial CDAD. Accordingly, only symptomatic patients should be tested and formed stools will be rejected unless ileus is present (i.e., specified when ordering). Patients may be colonized with toxigenic C.difficile strains not causing active disease; therefore, clinical correlation is needed when deciding how to manage patients with a positive test result.The assay has not been validated as a test of cure as amplifiable nucleic acid may persist after effective treatment; therefore, follow-up testing of a positive result is not recommended.SURGICALLY OBTAINED CULTURE + GRAM [id number] 13:00:00 Test Item Value Reference Range Comments CULTURE ([employer]) (test ygly=6100) Amikacin (test code=1) Ampicillin + Sulbactam (test code=6) Aztreonam (test code=32) Cefepime (test code=51) Cefoxitin (test code=68) Ceftazidime (test code=27) Ceftriaxone (test code=52) Ertapenem (test code=38) Gentamicin (test code=18) Levofloxacin (test code=22) Meropenem (test code=34) Nitrofurantoin (test code=23) Piperacillin + Tazobactam (test code=29) Tetracycline (test code=2) Tobramycin (test code=25) Trimethoprim + Sulfamethoxazole (test code=47) CULTURE ([employer]) (test ENTEROCOCCUS SPECIES 3+ Escherichia coli zxsv=0480) Ampicillin (test code=26) Linezolid (test code=40) Vancomycin (test code=13) CULTURE (BEAKER) (test 2+ Enterococcus enxg=3496) species CULTURE ([employer]AKER) (test PSEUDOMONAS <1+ Viridans grtl=1927) AERUGINOSA Streptococcus Amikacin (test code=1) Susceptible 0-16 , Resistant <0 or >16 Aztreonam (test code=32) Susceptible 0-8 , Resistant <0 or >8 Cefepime (test code=51) Susceptible 0-8 , Resistant <0 or >8 Ceftazidime (test Susceptible 0-8 , code=27) Resistant <0 or >8 Ciprofloxacin (test Susceptible 0-1 , code=7) Resistant <0 or >1 Doripenem (test ksec=594) Susceptible 0-2 , Resistant <0 or >2 Gentamicin (test code=18) Susceptible 0-4 , Resistant <0 or >4 Imipenem (test code=19) Susceptible 0-2 , Resistant <0 or >2 Levofloxacin (test Susceptible 0-2 , code=22) Resistant <0 or >2 Meropenem (test code=34) Susceptible 0-2 , Resistant <0 or >2 Piperacillin (test Susceptible 0-16 , code=24) Resistant <0 or >16 Piperacillin + Tazobactam Susceptible 0-16 , (test code=29) Resistant <0 or >16 Tobramycin (test code=25) Susceptible 0-4 , Resistant <0 or >4 CULTURE (BEAKER) (test 2+ Pseudomonas zdpl=5418) aeruginosa GRAM STAIN RESULT <1+ WBCs (BEAKER) (test wjhb=6108) GRAM STAIN RESULT <1+ gram negative (BEAKER) (test rods ryjv=344040) GRAM STAIN RESULT <1+ gram positive (BEAKER) (test rods fmqr=150421) GRAM STAIN RESULT <1+ gram positive (BEAKER) (test cocci in chains pvim=887977) [id number] 12:14:00 Test Item Value Reference Range Comments PARTIAL THROMBOPLASTIN TIME (BEAKER) (test 53.3 seconds 22.5-36.0 pzpb=380) POCT-GLUCOSE [id number] 11:49:00 Test Item Value Reference Range Comments POC-GLUCOSE METER (BEAKER) 152 mg/dL 70-110 TESTED AT [address] (test lxif=4775) [facility] [address] OCCULT BLOOD, [id number] 10:54:00 Test Item Value Reference Range Comments FECAL OCCULT BLOOD (BEAKER) (test xexi=905) Negative Negative POCT-GLUCOSE [id number] 08:00:00 Test Item Value Reference Range Comments POC-GLUCOSE METER (BEAKER) 159 mg/dL 70-110 TESTED AT [address] (test oyqo=8949) [facility] [address] POCT-GLUCOSE [id number] 07:29:00 Test Item Value Reference Range Comments POC-GLUCOSE METER (BEAKER) 137 mg/dL 70-110 TESTED AT [address] (test flhn=5950) [facility] [address] POCT-GLUCOSE [id number] 06:34:00 Test Item Value Reference Range Comments POC-GLUCOSE METER (BEAKER) 144 mg/dL 70-110 TESTED AT [address] (test spid=6645) [facility] [address] POCT-GLUCOSE [id number] 05:39:00 Test Item Value Reference Range Comments POC-GLUCOSE METER (BEAKER) 150 mg/dL 70-110 TESTED AT [address] (test nlvl=6243) [facility] [address] BLOOD GAS, [id number] 05:25:00 Test Item Value Reference Range Comments PH ARTERIAL (BEAKER) (test muep=303) 7.45 7.35-7.45 PCO2 ARTERIAL (BEAKER) (test hzyg=104) 39 mmHg 35-45 PO2 ARTERIAL (BEAKER) (test sduo=467) 160 mmHg 80-90 O2 SATURATION ARTERIAL (BEAKER) (test chbp=869) 99.1 % 96.0-97.0 HCO3 ARTERIAL (BEAKER) (test hhhs=830) 26 mmol/L 21-29 BASE EXCESS ARTERIAL (BEAKER) (test rrqt=909) 2.0 mmol/L -2.0-3.0 PATIENT TEMPERATURE (BEAKER) (test zuhh=8379) 37.1 C FIO2 (BEAKER) (test gkbg=5081) 40.0 % CALCIUM, [id number] 05:10:00 Test Item Value Reference Range Comments CALCIUM IONIZED (BEAKER) (test kijj=955) 1.13 mmol/L 1.12-1.27 PH, BLOOD (BEAKER) (test ixzb=7806) 7.40 [id number] 04:30:00 Test Item Value Reference Range Comments PHOSPHORUS (BEAKER) (test kgqb=994) 2.0 mg/dL 2.3-4.7 [id number] 04:30:00 Test Item Value Reference Range Comments MAGNESIUM (BEAKER) (test lgpl=532) 2.2 mg/dL 1.6-2.6 BASIC METABOLIC [id number] 04:30:00 Test Item Value Reference Range Comments SODIUM (BEAKER) (test 139 meq/L 136-145 ryqr=050) POTASSIUM (BEAKER) (test 3.8 meq/L 3.5-5.1 jcdo=742) CHLORIDE (BEAKER) (test 104 meq/L 98-107 nlzn=559) CO2 (BEAKER) (test 29 meq/L 22-29 lgba=742) BLOOD UREA NITROGEN 21 mg/dL 7-21 (BEAKER) (test aopi=275) CREATININE (BEAKER) (test 1.04 mg/dL 0.57-1.25 mipj=009) GLUCOSE RANDOM (BEAKER) 163 mg/dL 70-105 (test bcst=892) CALCIUM (BEAKER) (test 8.4 mg/dL 8.4-10.2 ohbe=079) EGFR (BEAKER) (test 73 mL/min/1.73 sq m ESTIMATED GFR IS NOT fzvx=3602) ACCURATE CREATININE CLEARANCE IN PREDICTING GLOMERULAR FILTRATION RATE. ESTIMATED GFR IS NOT APPLICABLE FOR DIALYSIS PATIENTS. POCT-GLUCOSE [id number] 04:26:00 Test Item Value Reference Range Comments POC-GLUCOSE METER (BEAKER) 159 mg/dL 70-110 TESTED AT [address] (test lajw=3965) [place] [id number] POCT-GLUCOSE [id number] 04:26:00 Test Item Value Reference Range Comments POC-GLUCOSE METER (BEAKER) 185 mg/dL 70-110 TESTED AT [address] (test jzsj=9828) [place] [id number] POCT-GLUCOSE [id number] 04:26:00 Test Item Value Reference Range Comments POC-GLUCOSE METER (BEAKER) 174 mg/dL 70-110 TESTED AT [address] (test jimk=8434) [place] [id number] 04:16:00 Test Item Value Reference Range Comments PARTIAL THROMBOPLASTIN TIME (BEAKER) (test 47.9 seconds 22.5-36.0 xzsg=301) PROTHROMBIN [id number] 04:15:00 Test Item Value Reference Range Comments PROTIME (BEAKER) (test axpk=210) 15.1 seconds 11.7-14.7 INR (BEAKER) (test ipas=330) 1.2 <=5.9 RECOMMENDED COUMADIN/WARFARIN INR THERAPY RANGESSTANDARD DOSE: 2.0 - 3.0 Includes: PROPHYLAXIS forvenous thrombosis, systemic embolization; TREATMENT for venous thrombosis and/or pulmonary embolus.HIGH RISK: Target INR is 2.5-3.5 for patients with mechanical heart valves.CBC W/PLT COUNT & AUTO [id number] 04:11:00 Test Item Value Reference Range Comments WHITE BLOOD CELL COUNT (BEAKER) (test fncc=725) 10.5 K/ L 3.5-10.5 RED BLOOD CELL COUNT (BEAKER) (test ardu=171) 3.88 M/ L 4.63-6.08 HEMOGLOBIN (BEAKER) (test kzfq=898) 11.3 GM/DL 13.7-17.5 HEMATOCRIT (BEAKER) (test shfs=612) 35.3 % 40.1-51.0 MEAN CORPUSCULAR VOLUME (BEAKER) (test zldg=091) 91.0 fL 79.0-92.2 MEAN CORPUSCULAR HEMOGLOBIN (BEAKER) (test 29.1 pg 25.7-32.2 xvpz=663) MEAN CORPUSCULAR HEMOGLOBIN CONC (BEAKER) (test 32.0 GM/DL 32.3-36.5 gded=310) RED CELL DISTRIBUTION WIDTH (BEAKER) (test 14.7 % 11.6-14.4 fufm=667) PLATELET COUNT (BEAKER) (test pceh=443) 164 K/CU MM 150-450 MEAN PLATELET VOLUME (BEAKER) (test xfol=392) 10.7 fL 9.4-12.4 NUCLEATED RED BLOOD CELLS (BEAKER) (test 0 /100 WBC 0-0 cvlk=083) NEUTROPHILS RELATIVE PERCENT (BEAKER) (test 86 % ibla=138) LYMPHOCYTES RELATIVE PERCENT (BEAKER) (test 6 % bfxm=605) MONOCYTES RELATIVE PERCENT (BEAKER) (test 6 % dswk=427) EOSINOPHILS RELATIVE PERCENT (BEAKER) (test 0 % jmuk=052) BASOPHILS RELATIVE PERCENT (BEAKER) (test 1 % cmkb=718) NEUTROPHILS ABSOLUTE COUNT (BEAKER) (test 8.99 K/ L 1.78-5.38 kfuz=746) LYMPHOCYTES ABSOLUTE COUNT (BEAKER) (test 0.58 K/ L 1.32-3.57 wpjc=934) MONOCYTES ABSOLUTE COUNT (BEAKER) (test 0.64 K/ L 0.30-0.82 jykp=793) EOSINOPHILS ABSOLUTE COUNT (BEAKER) (test 0.01 K/ L 0.04-0.54 xdiy=461) BASOPHILS ABSOLUTE COUNT (BEAKER) (test 0.05 K/ L 0.01-0.08 mjis=607) IMMATURE GRANULOCYTES-RELATIVE PERCENT (BEAKER) 2 % 0-1 (test ezqc=7608) RAD, CHEST, 1 VIEW, NON [id number] 03:49:00Reason for exam:-> IntubatedShould this be performed at the bedside?->YesFINAL REPORT CLINICAL INDICATION: Support lines. Comparison: 01/27/2017 The cardiomediastinal contours are stable. The lung volumes remain low. Central pulmonary vascular congestion and bilateral parenchymal and pleural opacities are unchanged. There is no pneumothorax. Support lines are stable. Signed: Nilesh Sheets MDReport Verified Date/Time: 01/28/2017 03:49:34 Reading Location : [address] Reading Room ANAEROBIC [id number] 03:23:00 Test Item Value Reference Range Comments CULTURE (BEAKER) (test xtkl=6305) 2+ Bacteroides fragilis group POCT-GLUCOSE [id number] 23:48:00 Test Item Value Reference Range Comments POC-GLUCOSE METER (BEAKER) 161 mg/dL 70-110 TESTED AT [address] (test hpmy=5138) [facility] [address] POCT-GLUCOSE [id number] 21:46:00 Test Item Value Reference Range Comments POC-GLUCOSE METER (BEAKER) 125 mg/dL 70-110 TESTED AT [address] (test juvd=1094) [facility] [address] POCT-GLUCOSE [id number] 18:56:00 Test Item Value Reference Range Comments POC-GLUCOSE METER (BEAKER) 119 mg/dL 70-110 TESTED AT [address] (test rghe=2236) [facility] [address] POCT-GLUCOSE [id number] 16:53:00 Test Item Value Reference Range Comments POC-GLUCOSE METER (BEAKER) 113 mg/dL 70-110 TESTED AT [address] (test jaea=1310) [place] [id number] POCT-GLUCOSE [id number] 14:45:00 Test Item Value Reference Range Comments POC-GLUCOSE METER (BEAKER) 123 mg/dL 70-110 TESTED AT [address] (test jxwb=8492) [place] [id number] POCT-GLUCOSE [id number] 13:57:00 Test Item Value Reference Range Comments POC-GLUCOSE METER (BEAKER) 112 mg/dL 70-110 TESTED AT [address] (test ifqx=8237) [place] [id number] POCT-GLUCOSE [id number] 12:37:00 Test Item Value Reference Range Comments POC-GLUCOSE METER (BEAKER) 109 mg/dL 70-110 TESTED AT [address] (test kgtq=5623) [place] [address] POCT-GLUCOSE [id number] 11:28:00 Test Item Value Reference Range Comments POC-GLUCOSE METER (BEAKER) 130 mg/dL 70-110 TESTED AT [address] (test jnui=3602) [place] [id number] RAD, ABDOMEN/KUB, 1 VIEW [id number] 10:55:00Reason for exam:->DHT placementFINAL REPORT Abdomen. HISTORY: Corpak placement. COMPARISON STUDY: January 26, 2017. FINDINGS: A single supine view of the abdomen demonstrates a feeding tube in place, the tip projecting over the proximal to mid stomach. Contrast is seen in the bowel. No dilated bowel loops areseen but there is generalized decrease of bowel gas. This film is insensitive for the detection of free air. Signed: Rehan Mccauley MDReport Verified Date/Time: 01/27/2017 10:55:24 Reading Location: [facility] C013Y CT Body Reading Room POCT-GLUCOSE [id number] 10:24:00 Test Item Value Reference Range Comments POC-GLUCOSE METER (BEAKER) 125 mg/dL 70-110 TESTED AT [address] (test tqty=2045) [place] [id number] POCT-GLUCOSE [id number] 09:11:00 Test Item Value Reference Range Comments POC-GLUCOSE METER (BEAKER) 147 mg/dL 70-110 TESTED AT [address] (test toya=7758) [facility] [address] POCT-GLUCOSE [id number] 07:52:00 Test Item Value Reference Range Comments POC-GLUCOSE METER (BEAKER) 160 mg/dL 70-110 TESTED AT [address] (test ctnj=8511) [place] [id number] RAD, CHEST, 1 VIEW, NON [id number] 06:47:00Reason for exam:-> IntubatedShould this be performed at the bedside?->YesFINAL REPORT RAD, CHEST, 1 VIEW, NON DEPT INDICATION: Intubated COMPARISON: Prior day's exam FINDINGS: Portable frontal view of the chest. IMPRESSION: Support Lines: New feeding tube extending outside the imaged volume. Remaining support hardware is stable. Lungs and pleura: Lung volumes are low with persistent subsegmental atelectasis and bilateral effusions. No pneumothorax.Heart and mediastinum: Stable contours. Additional findings: None. Signed: JR Nguyen RobertMDReport Verified Date/Time: 01/27/2017 06:47: 41 Reading Location: [facility] C013Y CT Body Reading Room POCT-GLUCOSE [id number] 05 :15:00 Test Item Value Reference Range Comments POC-GLUCOSE METER (BEAKER) 130 mg/dL 70-110 TESTED AT [address] (test etlo=4490) [facility] [address] POCT-GLUCOSE [id number] 03:07:00 Test Item Value Reference Range Comments POC-GLUCOSE METER (BEAKER) 132 mg/dL 70-110 TESTED AT [address] (test icvr=2544) [place] [id number] 02:46:00 Test Item Value Reference Range Comments PHOSPHORUS (BEAKER) (test rucs=810) 1.7 mg/dL 2.3-4.7 [id number] 02:46:00 Test Item Value Reference Range Comments MAGNESIUM (BEAKER) (test qmdw=379) 1.9 mg/dL 1.6-2.6 BASIC METABOLIC [id number] 02:46:00 Test Item Value Reference Range Comments SODIUM (BEAKER) (test 138 meq/L 136-145 sdjp=015) POTASSIUM (BEAKER) (test 3.9 meq/L 3.5-5.1 lgjn=726) CHLORIDE (BEAKER) (test 108 meq/L 98-107 iiez=566) CO2 (BEAKER) (test 24 meq/L 22-29 tfhj=943) BLOOD UREA NITROGEN 22 mg/dL 7-21 (BEAKER) (test jqcw=981) CREATININE (BEAKER) (test 0.84 mg/dL 0.57-1.25 fzub=111) GLUCOSE RANDOM (BEAKER) 138 mg/dL 70-105 (test inxx=536) CALCIUM (BEAKER) (test 8.1 mg/dL 8.4-10.2 jbcb=645) EGFR (BEAKER) (test 94 mL/min/1.73 sq m ESTIMATED GFR IS NOT xcby=7444) ACCURATE CREATININE CLEARANCE IN PREDICTING GLOMERULAR FILTRATION RATE. ESTIMATED GFR IS NOT APPLICABLE FOR DIALYSIS PATIENTS. CBC W/PLT COUNT & AUTO [id number] 02:44:00 Test Item Value Reference Range Comments WHITE BLOOD CELL COUNT (BEAKER) (test swgr=320) 5.2 K/ L 3.5-10.5 RED BLOOD CELL COUNT (BEAKER) (test nxsw=499) 3.61 M/ L 4.63-6.08 HEMOGLOBIN (BEAKER) (test hrnq=067) 10.7 GM/DL 13.7-17.5 HEMATOCRIT (BEAKER) (test fzyq=246) 32.5 % 40.1-51.0 MEAN CORPUSCULAR VOLUME (BEAKER) (test keuc=149) 90.0 fL 79.0-92.2 MEAN CORPUSCULAR HEMOGLOBIN (BEAKER) (test 29.6 pg 25.7-32.2 bzys=101) MEAN CORPUSCULAR HEMOGLOBIN CONC (BEAKER) (test 32.9 GM/DL 32.3-36.5 pivy=783) RED CELL DISTRIBUTION WIDTH (BEAKER) (test 14.3 % 11.6-14.4 fvil=608) PLATELET COUNT (BEAKER) (test yndj=523) 111 K/CU MM 150-450 MEAN PLATELET VOLUME (BEAKER) (test tujy=990) 10.4 fL 9.4-12.4 NUCLEATED RED BLOOD CELLS (BEAKER) (test 0 /100 WBC 0-0 ubzr=903) NEUTROPHILS RELATIVE PERCENT (BEAKER) (test 88 % mzwe=051) LYMPHOCYTES RELATIVE PERCENT (BEAKER) (test 5 % rrdy=135) MONOCYTES RELATIVE PERCENT (BEAKER) (test 6 % ewam=014) EOSINOPHILS RELATIVE PERCENT (BEAKER) (test 0 % qxlu=002) BASOPHILS RELATIVE PERCENT (BEAKER) (test 0 % ebei=533) NEUTROPHILS ABSOLUTE COUNT (BEAKER) (test 4.54 K/ L 1.78-5.38 zgkm=330) LYMPHOCYTES ABSOLUTE COUNT (BEAKER) (test 0.25 K/ L 1.32-3.57 nqpf=411) MONOCYTES ABSOLUTE COUNT (BEAKER) (test 0.32 K/ L 0.30-0.82 myqf=881) EOSINOPHILS ABSOLUTE COUNT (BEAKER) (test 0.00 K/ L 0.04-0.54 zzvw=487) BASOPHILS ABSOLUTE COUNT (BEAKER) (test 0.01 K/ L 0.01-0.08 oiic=124) IMMATURE GRANULOCYTES-RELATIVE PERCENT (BEAKER) 1 % 0-1 (test tlzo=6530) [id number] 02:42:00 Test Item Value Reference Range Comments PROTIME (BEAKER) (test ohyv=744) 16.5 seconds 11.7-14.7 INR (BEAKER) (test scru=626) 1.3 <=5.9 PARTIAL THROMBOPLASTIN TIME (BEAKER) (test 80.0 seconds 22.5-36.0 akey=996) RECOMMENDED COUMADIN/WARFARIN INR THERAPY RANGESSTANDARD DOSE: 2.0 - 3.0 Includes: PROPHYLAXIS forvenous thrombosis, systemic embolization; TREATMENT for venous thrombosis and/or pulmonary embolus.HIGH RISK: Target INR is 2.5-3.5 for patients with mechanical heart valves.BLOOD GAS, [id number] 02:40:00 Test Item Value Reference Range Comments PH ARTERIAL (BEAKER) (test ajkw=147) 7.48 7.35-7.45 PCO2 ARTERIAL (BEAKER) (test sfti=376) 39 mmHg 35-45 PO2 ARTERIAL (BEAKER) (test eqin=068) 155 mmHg 80-90 O2 SATURATION ARTERIAL (BEAKER) (test haxi=420) 99.1 % 96.0-97.0 HCO3 ARTERIAL (BEAKER) (test eoru=985) 28 mmol/L 21-29 BASE EXCESS ARTERIAL (BEAKER) (test trdp=358) 4.4 mmol/L -2.0-3.0 PATIENT TEMPERATURE (BEAKER) (test xvig=3900) 37.2 C FIO2 (BEAKER) (test oncv=9241) 60.0 % CALCIUM, [id number] 02:40:00 Test Item Value Reference Range Comments CALCIUM IONIZED (BEAKER) (test ljpb=306) 1.09 mmol/L 1.12-1.27 PH, BLOOD (BEAKER) (test wjyw=3032) 7.48 PROTHROMBIN [id number] 02:40:00 Test Item Value Reference Range Comments PROTIME (BEAKER) (test qbxf=031) 16.5 seconds 11.7-14.7 INR (BEAKER) (test powh=195) 1.3 <=5.9 RECOMMENDED COUMADIN/WARFARIN INR THERAPY RANGESSTANDARD DOSE: 2.0 - 3.0 Includes: PROPHYLAXIS forvenous thrombosis, systemic embolization; TREATMENT for venous thrombosis and/or pulmonary embolus.HIGH RISK: Target INR is 2.5-3.5 for patients with mechanical heart valves.POCT-GLUCOSE [id number] 02:09:00 Test Item Value Reference Range Comments POC-GLUCOSE METER (BEAKER) 134 mg/dL 70-110 TESTED AT [address] (test ziwn=6816) [facility] [address] TSH/FREE T4 IF [id number] 01:36:00 Test Item Value Reference Range Comments THYROID STIMULATING HORMONE (BEAKER) (test 2.06 uIU/mL 0.35-4.94 phsr=012) POCT-GLUCOSE [id number] 01:16:00 Test Item Value Reference Range Comments POC-GLUCOSE METER (BEAKER) 140 mg/dL 70-110 TESTED AT [address] (test dqzm=3629) [facility] [address] CBC W/PLT COUNT & AUTO [id number] 01:00:00 Test Item Value Reference Range Comments WHITE BLOOD CELL COUNT (BEAKER) (test ddso=440) 5.8 K/ L 3.5-10.5 RED BLOOD CELL COUNT (BEAKER) (test eppy=929) 3.98 M/ L 4.63-6.08 HEMOGLOBIN (BEAKER) (test ucpe=296) 11.8 GM/DL 13.7-17.5 HEMATOCRIT (BEAKER) (test fxzk=951) 35.7 % 40.1-51.0 MEAN CORPUSCULAR VOLUME (BEAKER) (test klps=510) 89.7 fL 79.0-92.2 MEAN CORPUSCULAR HEMOGLOBIN (BEAKER) (test 29.6 pg 25.7-32.2 ajyk=357) MEAN CORPUSCULAR HEMOGLOBIN CONC (BEAKER) (test 33.1 GM/DL 32.3-36.5 mryn=113) RED CELL DISTRIBUTION WIDTH (BEAKER) (test 14.2 % 11.6-14.4 jgej=359) PLATELET COUNT (BEAKER) (test dpeo=498) 128 K/CU MM 150-450 MEAN PLATELET VOLUME (BEAKER) (test nbph=537) 10.7 fL 9.4-12.4 NUCLEATED RED BLOOD CELLS (BEAKER) (test 0 /100 WBC 0-0 hjxb=153) NEUTROPHILS RELATIVE PERCENT (BEAKER) (test 88 % wjhm=496) LYMPHOCYTES RELATIVE PERCENT (BEAKER) (test 5 % dfys=705) MONOCYTES RELATIVE PERCENT (BEAKER) (test 6 % csto=688) EOSINOPHILS RELATIVE PERCENT (BEAKER) (test 0 % flzz=354) BASOPHILS RELATIVE PERCENT (BEAKER) (test 0 % rrrc=556) NEUTROPHILS ABSOLUTE COUNT (BEAKER) (test 5.09 K/ L 1.78-5.38 lpby=045) LYMPHOCYTES ABSOLUTE COUNT (BEAKER) (test 0.26 K/ L 1.32-3.57 vwij=868) MONOCYTES ABSOLUTE COUNT (BEAKER) (test 0.36 K/ L 0.30-0.82 sgbn=988) EOSINOPHILS ABSOLUTE COUNT (BEAKER) (test 0.01 K/ L 0.04-0.54 slyg=926) BASOPHILS ABSOLUTE COUNT (BEAKER) (test 0.01 K/ L 0.01-0.08 luck=709) IMMATURE GRANULOCYTES-RELATIVE PERCENT (BEAKER) 1 % 0-1 (test mtvf=5137) CREATINE KINASE (CK), TOTAL AND [id number] 00:24:00 Test Item Value Reference Range Comments CREATINE KINASE TOTAL (BEAKER) (test oeqf=488) 2022 U/L 29-200 CREATINE KINASE-MB (BEAKER) (test hqfy=518) 4.2 ng/mL 0.0-6.6 CREATINE KINASE-MB INDEX (BEAKER) (test hrdb=703) 0.2 % CK-MB Reference Range:<6.7 Normal6.7-10.0 Borderline>10.0 AbnormalTROPONIN [id number] 00:24:00 Test Item Value Reference Range Comments TROPONIN I (BEAKER) (test hadz=873) < ng/mL 0.00-0.03 Troponin I (TnI) levels must be interpreted [...] failure, acidosis, acute neurological disease, and persistent tachyarrhythmia.[id number] 00:17:00 Test Item Value Reference Range Comments MAGNESIUM (BEAKER) (test mkqk=408) 2.2 mg/dL 1.6-2.6 BASIC METABOLIC [id number] 00:17:00 Test Item Value Reference Range Comments SODIUM (BEAKER) (test 137 meq/L 136-145 amlm=241) POTASSIUM (BEAKER) (test 4.0 meq/L 3.5-5.1 dmtt=465) CHLORIDE (BEAKER) (test 105 meq/L 98-107 pqqk=561) CO2 (BEAKER) (test 24 meq/L 22-29 lxok=645) BLOOD UREA NITROGEN 22 mg/dL 7-21 (BEAKER) (test roow=308) CREATININE (BEAKER) (test 0.91 mg/dL 0.57-1.25 toqt=642) GLUCOSE RANDOM (BEAKER) 147 mg/dL 70-105 (test twhx=541) CALCIUM (BEAKER) (test 8.3 mg/dL 8.4-10.2 dtuk=708) EGFR (BEAKER) (test 86 mL/min/1.73 sq m ESTIMATED GFR IS NOT tclm=7411) ACCURATE CREATININE CLEARANCE IN PREDICTING GLOMERULAR FILTRATION RATE. ESTIMATED GFR IS NOT APPLICABLE FOR DIALYSIS PATIENTS. CALCIUM, [id number] 00:17:00 Test Item Value Reference Range Comments CALCIUM IONIZED (BEAKER) (test nuax=942) 1.11 mmol/L 1.12-1.27 PH, BLOOD (BEAKER) (test cwoy=5883) 7.44 POCT-GLUCOSE [id number] 00:02:00 Test Item Value Reference Range Comments POC-GLUCOSE METER (BEAKER) 157 mg/dL 70-110 TESTED AT [address] (test sltw=9166) [facility] [address] POCT-GLUCOSE [id number] 00:02:00 Test Item Value Reference Range Comments POC-GLUCOSE METER (BEAKER) 99 mg/dL 70-110 TESTED AT [address] (test vtst=0486) [facility] [address] POCT-GLUCOSE [id number] 23:09:00 Test Item Value Reference Range Comments POC-GLUCOSE METER (BEAKER) 137 mg/dL 70-110 TESTED AT [address] (test pdel=0659) [facility] [address] POCT-GLUCOSE [id number] 22:13:00 Test Item Value Reference Range Comments POC-GLUCOSE METER (BEAKER) 109 mg/dL 70-110 TESTED AT [address] (test uurt=8028) [facility] [address] POCT-GLUCOSE [id number] 21:41:00 Test Item Value Reference Range Comments POC-GLUCOSE METER (BEAKER) 97 mg/dL 70-110 TESTED AT [address] (test ibna=9598) [facility] [address] POCT-GLUCOSE [id number] 20:26:00 Test Item Value Reference Range Comments POC-GLUCOSE METER (BEAKER) 120 mg/dL 70-110 TESTED AT [address] (test gtub=4134) [facility] [address] POCT-GLUCOSE [id number] 19:06:00 Test Item Value Reference Range Comments POC-GLUCOSE METER (BEAKER) 139 mg/dL 70-110 TESTED AT [address] (test wdpx=5667) [facility] [address] POCT-GLUCOSE [id number] 18:16:00 Test Item Value Reference Range Comments POC-GLUCOSE METER (BEAKER) 169 mg/dL 70-110 TESTED AT [address] (test nixq=7085) [place] [id number] POCT-GLUCOSE [id number] 16:40:00 Test Item Value Reference Range Comments POC-GLUCOSE METER (BEAKER) 211 mg/dL 70-110 TESTED AT [address] (test icpm=4152) [place] [address] POCT-GLUCOSE [id number] 15:48:00 Test Item Value Reference Range Comments POC-GLUCOSE METER (BEAKER) 191 mg/dL 70-110 TESTED AT [address] (test lwvp=3046) [facility] [address] [id number] 15:29:00 Test Item Value Reference Range Comments PARTIAL THROMBOPLASTIN TIME (BEAKER) (test 73.9 seconds 22.5-36.0 hxuz=893) RAD, ABDOMEN/KUB, 1 VIEW [id number] 14:56:00Reason for exam:->dobbhoff advancementFINAL REPORT ONE VIEW ABDOMEN HISTORY: Feeding tube placement COMPARISON: 1407 hours on 01/26/2017 FINDINGS: Single supine AP image of the abdomen was obtained. There has been no change in the position of the feeding tube. The tip of the feeding tube projects just left of the spine, in the region of the gastric body. Signed: Saad Cochran Verified Date/Time: 01/26/2017 14:56:31 Reading Location: [facility] C013X Ortho Consult Reading Room Electronically signed by: SAAD COCHRAN MD on 2016 02:56 PMRAD, ABDOMEN/KUB, 1 VIEW [id number] 14:55:00Reason for exam:-> dobbhoff advancementFINAL REPORT ONE VIEW ABDOMEN HISTORY : Feeding tube placement COMPARISON: 01/24/2017 FINDINGS: Single supine AP image of the abdomen was obtained. Feeding tube passes below the diaphragm, with the tip in the region of the gastric body. No dilated bowel loops are identified. There are degenerative changes in the spine. Signed: Saad Cochran Verified Date/Time: 01/26/2017 14:55:35 Reading Location: [address] Ortho Consult Reading Room POCT-GLUCOSE [id number] 14:28:00 Test Item Value Reference Range Comments POC-GLUCOSE METER (BEAKER) 182 mg/dL 70-110 TESTED AT [address] (test dztu=1406) [place] [address] POCT-GLUCOSE [id number] 13:02:00 Test Item Value Reference Range Comments POC-GLUCOSE METER (BEAKER) 170 mg/dL 70-110 TESTED AT [address] (test aejz=6950) [place] [address] RAD, ABDOMEN/KUB, 1 VIEW [id number] 12:46:00Reason for exam:->dobbhuff tube placementFINAL REPORT ONE VIEW ABDOMEN HISTORY: Feeding tube placement COMPARISON: 01/24/2017 FINDINGS: Single supine AP image of the abdomen was obtained. Feeding tube passes below the diaphragm, with the tip in the region of the body of the stomach. The tip of the nasogastric tube projects just proximal to this. No dilated bowel loops are identified. Signed: Saad Cochran Verified Date/Time: 01/26/2017 12:46:01 Reading Location : [address] Ortho Consult Reading Room POCT-GLUCOSE [id number] 12:07:00 Test Item Value Reference Range Comments POC-GLUCOSE METER (BEAKER) 166 mg/dL 70-110 TESTED AT [address] (test yote=9962) [place] [id number] POCT-GLUCOSE [id number] 10:35:00 Test Item Value Reference Range Comments POC-GLUCOSE METER (BEAKER) 152 mg/dL 70-110 TESTED AT [address] (test sdva=3260) [place] [address] POCT-GLUCOSE [id number] 09:19:00 Test Item Value Reference Range Comments POC-GLUCOSE METER (BEAKER) 153 mg/dL 70-110 TESTED AT [address] (test nnof=2561) [place] [address] [id number] 08:56:00 Test Item Value Reference Range Comments PARTIAL THROMBOPLASTIN TIME (BEAKER) (test 79.9 seconds 22.5-36.0 hbpz=200) CBC W/PLT COUNT & AUTO [id number] 08:34:00 Test Item Value Reference Range Comments WHITE BLOOD CELL COUNT (BEAKER) (test xcyu=142) 8.2 K/ L 3.5-10.5 RED BLOOD CELL COUNT (BEAKER) (test oshy=026) 4.20 M/ L 4.63-6.08 HEMOGLOBIN (BEAKER) (test drqi=673) 12.4 GM/DL 13.7-17.5 HEMATOCRIT (BEAKER) (test icsg=456) 37.2 % 40.1-51.0 MEAN CORPUSCULAR VOLUME (BEAKER) (test mmzq=572) 88.6 fL 79.0-92.2 MEAN CORPUSCULAR HEMOGLOBIN (BEAKER) (test 29.5 pg 25.7-32.2 hygt=927) MEAN CORPUSCULAR HEMOGLOBIN CONC (BEAKER) (test 33.3 GM/DL 32.3-36.5 sfas=249) RED CELL DISTRIBUTION WIDTH (BEAKER) (test 14.3 % 11.6-14.4 hzlp=142) PLATELET COUNT (BEAKER) (test eotk=222) 152 K/CU MM 150-450 MEAN PLATELET VOLUME (BEAKER) (test vpoc=299) 10.1 fL 9.4-12.4 NUCLEATED RED BLOOD CELLS (BEAKER) (test 0 /100 WBC 0-0 lkvp=554) NEUTROPHILS RELATIVE PERCENT (BEAKER) (test 87 % xeho=830) LYMPHOCYTES RELATIVE PERCENT (BEAKER) (test 3 % tden=006) MONOCYTES RELATIVE PERCENT (BEAKER) (test 7 % imuj=778) EOSINOPHILS RELATIVE PERCENT (BEAKER) (test 0 % gusg=594) BASOPHILS RELATIVE PERCENT (BEAKER) (test 1 % dpze=341) NEUTROPHILS ABSOLUTE COUNT (BEAKER) (test 7.12 K/ L 1.78-5.38 sclb=836) LYMPHOCYTES ABSOLUTE COUNT (BEAKER) (test 0.28 K/ L 1.32-3.57 ywpq=509) MONOCYTES ABSOLUTE COUNT (BEAKER) (test 0.55 K/ L 0.30-0.82 otfx=191) EOSINOPHILS ABSOLUTE COUNT (BEAKER) (test 0.00 K/ L 0.04-0.54 ejbn=676) BASOPHILS ABSOLUTE COUNT (BEAKER) (test 0.05 K/ L 0.01-0.08 izci=182) IMMATURE GRANULOCYTES-RELATIVE PERCENT (BEAKER) 3 % 0-1 (test gbqk=2963) (MANUAL DIFFERENTIAL)2017-01-26 08:34:00 Test Item Value Reference Range Comments NEUTROPHILS - REL (DIFF) (BEAKER) (test adrc=3224) 49 % LYMPHOCYTES - REL (DIFF) (BEAKER) (test slcm=1332) 7 % MONOCYTES - REL (DIFF) (BEAKER) (test wtbp=0271) 6 % EOSINOPHILS - REL (DIFF) (BEAKER) (test nxxr=0455) 1 % METAMYELOCYTES-REL (DIFF) (BEAKER) (test ewzg=860) 1 % 0-0 BANDS - REL (DIFF) (BEAKER) (test nbgb=8397) 36 % 0-10 NEUTROPHILS - ABS (DIFF) (BEAKER) (test skck=0782) 4.02 K/ L 1.80-8.00 LYMPHOCYTES - ABS (DIFF) (BEAKER) (test ihxr=0799) 0.57 K/ L 1.48-4.50 MONOCYTES - ABS (DIFF) (BEAKER) (test pwwe=2178) 0.49 K/ L 0.00-1.30 EOSINOPHILS - ABS (DIFF) (BEAKER) (test neen=1242) 0.08 K/ L 0.00-0.50 METAMYELOCTYES - ABS (DIFF) (BEAKER) (test 0.08 K/ L 0.00-0.00 akvp=481) BANDS-ABS (DIFF) (BEAKER) (test hsis=5489) 3.0 K/ L 0.0-0.8 TOTAL COUNTED (BEAKER) (test sscf=9732) 100 BANDS + SEGMENTED NEUTROPHILS (BEAKER) (test 6.97 rava=7747) WBC MORPHOLOGY (BEAKER) (test numo=842) Normal LARGE PLT(BEAKER) (test ezjc=6103) Present GIANT PLATELETS (BEAKER) (test qhbl=707) Present CLUMPED PLATELETS (BEAKER) (test qaem=811) Present ANISOCYTOSIS (BEAKER) (test nkkh=352) 1+ few POIKILOCYTES (BEAKER) (test mtns=625) 1+ few POCT-GLUCOSE [id number] 08:09:00 Test Item Value Reference Range Comments POC-GLUCOSE METER (BEAKER) 161 mg/dL 70-110 TESTED AT [facility] [address] [facility] (test jnrk=9720) [facility] [address] POCT-GLUCOSE [id number] 06:27:00 Test Item Value Reference Range Comments POC-GLUCOSE METER (BEAKER) 126 mg/dL 70-110 TESTED AT [address] (test yenz=7524) [facility] [address] RAD, CHEST, 1 VIEW, NON [id number] 04:39:00Reason for exam:-> IntubatedShould this be performed at the bedside?->YesFINAL REPORT RAD, CHEST, 1 VIEW, NON DEPT INDICATION: Intubated COMPARISON: Prior day's exam FINDINGS: Portable frontal view of the chest. IMPRESSION: Support Lines: Stable. Lungs and pleura: Low lung volumes without focal consolidation. Atelectatic changes versus small bilateral effusions laterally. No pneumothorax.Heart and mediastinum: Persistent enlargement of the cardiac silhouette. Additional findings: None. Signed: JR Nguyen Robert MDReport Verified Date/Time: 01/26/2017 04:39:49 Reading Location: [place] [id number] CT Body Reading Room [id number] 04:27:00 Test Item Value Reference Range Comments PHOSPHORUS (BEAKER) (test klwt=243) 2.0 mg/dL 2.3-4.7 [id number] 04:27:00 Test Item Value Reference Range Comments MAGNESIUM (BEAKER) (test milm=995) 1.9 mg/dL 1.6-2.6 BASIC METABOLIC [id number] 04:27:00 Test Item Value Reference Range Comments SODIUM (BEAKER) (test 139 meq/L 136-145 bpnk=719) POTASSIUM (BEAKER) (test 3.9 meq/L 3.5-5.1 yzol=210) CHLORIDE (BEAKER) (test 106 meq/L 98-107 nejs=041) CO2 (BEAKER) (test 25 meq/L 22-29 oapk=220) BLOOD UREA NITROGEN 23 mg/dL 7-21 (BEAKER) (test tzla=884) CREATININE (BEAKER) (test 1.07 mg/dL 0.57-1.25 fzge=686) GLUCOSE RANDOM (BEAKER) 139 mg/dL 70-105 (test zetf=424) CALCIUM (BEAKER) (test 8.1 mg/dL 8.4-10.2 swmv=706) EGFR (BEAKER) (test 71 mL/min/1.73 sq m ESTIMATED GFR IS NOT rqxw=9317) ACCURATE CREATININE CLEARANCE IN PREDICTING GLOMERULAR FILTRATION RATE. ESTIMATED GFR IS NOT APPLICABLE FOR DIALYSIS PATIENTS. POCT-GLUCOSE [id number] 04:21:00 Test Item Value Reference Range Comments POC-GLUCOSE METER (BEAKER) 133 mg/dL 70-110 TESTED AT [facility] [address] [facility] (test xage=3100) [facility] [address] POCT-GLUCOSE [id number] 04:21:00 Test Item Value Reference Range Comments POC-GLUCOSE METER (BEAKER) 128 mg/dL 70-110 TESTED AT [address] (test evjd=6565) [facility] [address] PROTHROMBIN [id number] 03:58:00 Test Item Value Reference Range Comments PROTIME (BEAKER) (test bwzd=531) 17.4 seconds 11.7-14.7 INR (BEAKER) (test piku=600) 1.4 <=5.9 RECOMMENDED COUMADIN/WARFARIN INR THERAPY RANGESSTANDARD DOSE: 2.0 - 3.0 Includes: PROPHYLAXIS forvenous thrombosis, systemic embolization; TREATMENT for venous thrombosis and/or pulmonary embolus.HIGH RISK: Target INR is 2.5-3.5 for patients with mechanical heart valves.BLOOD GAS, [id number] 03:43:00 Test Item Value Reference Range Comments PH ARTERIAL (BEAKER) (test rndg=316) 7.41 7.35-7.45 PCO2 ARTERIAL (BEAKER) (test adnu=130) 44 mmHg 35-45 PO2 ARTERIAL (BEAKER) (test sjjf=690) 109 mmHg 80-90 O2 SATURATION ARTERIAL (BEAKER) (test vnpz=542) 97.8 % 96.0-97.0 HCO3 ARTERIAL (BEAKER) (test nuub=993) 27 mmol/L 21-29 BASE EXCESS ARTERIAL (BEAKER) (test zmhk=087) 2.1 mmol/L -2.0-3.0 PATIENT TEMPERATURE (BEAKER) (test ojvw=1465) 38.0 C FIO2 (BEAKER) (test ayqo=3128) 70.0 % CALCIUM, [id number] 03:43:00 Test Item Value Reference Range Comments CALCIUM IONIZED (BEAKER) (test xevj=485) 1.07 mmol/L 1.12-1.27 PH, BLOOD (BEAKER) (test ictm=3715) 7.42 POCT-GLUCOSE [id number] 02:45:00 Test Item Value Reference Range Comments POC-GLUCOSE METER (BEAKER) 128 mg/dL 70-110 TESTED AT [address] (test jiwj=1458) [place] [id number] POCT-GLUCOSE [id number] 02:45:00 Test Item Value Reference Range Comments POC-GLUCOSE METER (BEAKER) 152 mg/dL 70-110 TESTED AT [address] (test ogsa=5521) [facility] [address] [id number] 02:16:00 Test Item Value Reference Range Comments PARTIAL THROMBOPLASTIN TIME (BEAKER) (test 71.1 seconds 22.5-36.0 dtgz=284) POCT-GLUCOSE [id number] 00:37:00 Test Item Value Reference Range Comments POC-GLUCOSE METER (BEAKER) 177 mg/dL 70-110 TESTED AT [address] (test klyd=7248) [facility] [address] POCT-GLUCOSE [id number] 00:33:00 Test Item Value Reference Range Comments POC-GLUCOSE METER (BEAKER) 170 mg/dL 70-110 TESTED AT [address] (test tojl=3508) [place] [id number] POCT-GLUCOSE [id number] 22:44:00 Test Item Value Reference Range Comments POC-GLUCOSE METER (BEAKER) 196 mg/dL 70-110 TESTED AT [address] (test gvss=9866) [place] [address] [id number] 20:43:00 Test Item Value Reference Range Comments PARTIAL THROMBOPLASTIN TIME (BEAKER) (test 45.6 seconds 22.5-36.0 bdxc=258) POCT-GLUCOSE [id number] 20:37:00 Test Item Value Reference Range Comments POC-GLUCOSE METER (BEAKER) 150 mg/dL 70-110 TESTED AT [address] (test kqqy=3202) [place] [address] POCT-GLUCOSE [id number] 18:41:00 Test Item Value Reference Range Comments POC-GLUCOSE METER (BEAKER) 130 mg/dL 70-110 TESTED AT [address] (test cfaq=6866) [place] [address] POCT-GLUCOSE [id number] 17:17:00 Test Item Value Reference Range Comments POC-GLUCOSE METER (BEAKER) 147 mg/dL 70-110 TESTED AT [address] (test vquu=1172) [place] [address] BLOOD GAS, [id number] 15:54:00 Test Item Value Reference Range Comments PH ARTERIAL (BEAKER) (test qbjw=433) 7.39 7.35-7.45 PCO2 ARTERIAL (BEAKER) (test aqww=544) 42 mmHg 35-45 PO2 ARTERIAL (BEAKER) (test pwds=769) 168 mmHg 80-90 O2 SATURATION ARTERIAL (BEAKER) (test hjwg=175) 99.1 % 96.0-97.0 HCO3 ARTERIAL (BEAKER) (test eghl=172) 24 mmol/L 21-29 BASE EXCESS ARTERIAL (BEAKER) (test efqp=968) -0.5 mmol/L -2.0-3.0 PATIENT TEMPERATURE (BEAKER) (test lfkc=1172) 38.5 C FIO2 (BEAKER) (test gohh=4919) 90.0 % POCT-GLUCOSE [id number] 15:02:00 Test Item Value Reference Range Comments POC-GLUCOSE METER (BEAKER) 168 mg/dL 70-110 TESTED AT [address] (test rtop=8245) [place] [address] [id number] 14:53:00 Test Item Value Reference Range Comments CORTISOL, TOTAL (BEAKER) (test tiyr=7103) 29.8 ug/dL 3.7-19.4 VANCOMYCIN LEVEL, [id number] 14:31:00 Test Item Value Reference Range Comments VANCOMYCIN TROUGH (BEAKER) (test fbie=958) 11.3 ug/mL 10.0-20.0 Do not give scheduled vanc dose until level has returned. Hold dose if level is > 20. Thank you!POCT-GLUCOSE [id number] 13:43:00 Test Item Value Reference Range Comments POC-GLUCOSE METER (BEAKER) 187 mg/dL 70-110 TESTED AT [address] (test tmga=5592) [place] [address] SPIN/CONCENTRATION [id number] 12:41:00 Test Item Value Reference Range Comments CONCENTRATION CHARGED (BEAKER) (test zkky=4379) Done POCT-GLUCOSE [id number] 11:58:00 Test Item Value Reference Range Comments POC-GLUCOSE METER (BEAKER) 185 mg/dL 70-110 TESTED AT [address] (test llkv=2573) [place] [address] POCT-GLUCOSE [id number] 10:00:00 Test Item Value Reference Range Comments POC-GLUCOSE METER (BEAKER) 192 mg/dL 70-110 TESTED AT [address] (test yizk=8552) [place] [address] BLOOD GAS, [id number] 09:51:00 Test Item Value Reference Range Comments PH ARTERIAL (BEAKER) (test bews=937) 7.44 7.35-7.45 PCO2 ARTERIAL (BEAKER) (test yxfg=229) 28 mmHg 35-45 PO2 ARTERIAL (BEAKER) (test hipu=612) 187 mmHg 80-90 O2 SATURATION ARTERIAL (BEAKER) (test cnbf=108) 99.4 % 96.0-97.0 HCO3 ARTERIAL (BEAKER) (test vyaf=601) 19 mmol/L 21-29 BASE EXCESS ARTERIAL (BEAKER) (test rnuv=295) -4.0 mmol/L -2.0-3.0 PATIENT TEMPERATURE (BEAKER) (test fkvg=0019) 37.0 C FIO2 (BEAKER) (test ewnv=5594) 80.0 % POCT-GLUCOSE [id number] 09:46:00 Test Item Value Reference Range Comments POC-GLUCOSE METER (BEAKER) 161 mg/dL 70-110 TESTED AT [address] (test estv=4955) [place] [address] CREATINE KINASE (CK), TOTAL AND [id number] 08:06:00 Test Item Value Reference Range Comments CREATINE KINASE TOTAL (BEAKER) (test risn=513) 372 U/L 29-200 CREATINE KINASE-MB (BEAKER) (test tkyd=867) 1.7 ng/mL 0.0-6.6 CREATINE KINASE-MB INDEX (BEAKER) (test zzuc=626) 0.5 % CK-MB Reference Range:<6.7 Normal6.7-10.0 Borderline>10.0 AbnormalTROPONIN [id number] 08:06:00 Test Item Value Reference Range Comments TROPONIN I (BEAKER) (test qtgv=955) 0.02 ng/mL 0.00-0.03 Troponin I (TnI) levels must be interpreted [...] failure, acidosis, acute neurological disease, and persistent tachyarrhythmia.TISSUE [id number] 08:04:00Surgical Pathology Report Case: [id number] Authorizing Provider: Clemente Yepez MD Collected: 01/21/20171827 Ordering Location: [facility] PERIOPERATIVE Received: 01/21/2017 1839 SERVICES Pathologist: Bennie Peoples MD Specimens: A) - Large Intestine, Colon - Sigmoid, sigmoid and rectum for show and tell B) -Other, Distal donut C) - Other, Proximal donut A. COLON, SIGMOID AND RECTUM, RESECTION: - ADENOCARCINOMA, MODERATELY DIFFERENTIATED, LOW GRADE - WITH INVASION INTO THEMUSCULARIS PROPRIA - GREATEST DIMENSION: 4.9 CM - MARGINS FREE OF TUMOR - NEGATIVE FOR LYMPHOVASCULAR INVASION - TWENTY-FOUR LYMPH NODES, NO TUMOR PRESENT (0/24)B. COLON, DISTAL DONUT, EXCISION: - NO TUMOR PRESENTC. COLON, PROXIMAL DONUT, EXCISION: - NO TUMOR PRESENT Signing Pathologist Direct Phone Line: [phone] signed by Bennie Peoples MD on 01/25/2017 at 8:04 AMCOLON AND RECTUM: Resection, Including Transanal Disk Excision of Rectal Neoplasms (Colon Res - All Specimens) SPECIMEN Specimen: Sigmoid colon Specimen: Rectum Procedure: Low anterior resection Macroscopic Intactness of Mesorectum: CompleteTUMOR Primary Tumor Site: Rectosigmoid Histologic Type: Adenocarcinoma Histologic Grade: Low-grade (well differentiated to moderately differentiated ) Tumor Size: Greatest dimension (cm): 4.9 cm Additional Dimension (cm) : 3 cm Additional Dimension (cm): 1.8 cm Tumor Deposits: Not identified Site(s)of Direct Extent of Tumor: None identified Microscopic Tumor Extension: Tumor invades muscularis propria Macroscopic Tumor Perforation: Not Identified Lymph-Vascular Invasion: Not identified Intratumoral Lymphocytic Response (tumor-infiltrating lymphocytes): Mild to moderate (0-2 per high-power X400 field) Peritumor Lymphocytic Response (Crohn-like response):Marked Perineural Invasion: Not identified Type of Polyp in Which Invasive Carcinoma Arose : Tubular adenomaMARGINS Uninvolved Margins: All margins uninvolved by invasive carcinoma Distance of Invasive Carcinoma from Closest Margin: Specify (cm): 3 cm Specify Margin: Circumferential (Radial) or Mesenteric Margins: For Resection Specimens Only Proximal Margin: Proximal Margin: Uninvolved by invasive carcinoma Distance of Tumor from Margin: Specify (cm): 15 cm Distal Margin: Distal Margin: Uninvolved by invasive carcinoma Distance of Tumor from Margin (required only for rectal tumors): Specify (cm): 3.3 cm Circumferential (Radial) Margin: Uninvolved by invasive carcinoma Distance of Tumor from Margin (required only for rectal tumors): Specify (cm) : 3 cm Mesenteric Margin: Uninvolved by invasive carcinoma Distance of Tumor from Margin: Specify (cm): 8 cmLYMPH NODES Regional Lymph Nodes: Number of Lymph Nodes Examined: Specify number: 24 Number of Lymph Nodes Involved: Specify number: 0STAGE (pTNM, AJCC 7th ed.) Primary Tumor (pT): pT2: Tumor invades muscularis propria Regional Lymph Nodes (pN): pN0: No regional lymph node [id number] x 3Rectal cancerPart A: Received fresh for intraoperative consultation labeled "large intestine, colon-sigmoid" with the description of "sigmoid and rectum show and tell" consists of a 20 x 8 cm colon with an attached 24 x 14 x 8 cm mesenteric fat. The serosa is cordoba-pink and smoothwithout any masses or lesions. The colon is opened up to reveal a 4.9 x 3 cm, irregular, lobulated, pink-red mass. It is raised 0.6 cm above the mucosal surface. It is 3.3 cm from the distal margin, 15cm from the proximal margin and 8 cm from the mesenteric margin. The mass occupies approximately 60% of the circumference. Sectioning through the mass reveals that it is 1.8 cm thick and appears invadeinto the muscularis. The mass is 3 cm from the radial margin. The remainder of the colon is cordoba pink, with normal like folds. The fat is serially sectioned to reveal multiple lymph nodes ranging from 0.2 to 1 cm in greatest dimension.Ink codeOrange: Mesenteric marginBlack: Radial marginRepresentative sections are submitted.Section code: A1: distal margin; A2 : proximal margin; A3: mesenteric margin; A4: section of tumor with deepest invasion;A5: tumor to normal appearing mucosa; A6: radial margin closest to mass ; A7: section of tumor with deepest invasion; A8: footwear sales representative section of tumor; A9 - A10: contiguous full-thickness section with deepest invasion; A11: tumor to normal appearing mucosa towards distal margin; A12: tumor to normal appearing mucosa towards proximal margin; A13 - A14: normalappearing colon; A15- A20: five candidate lymph nodes in each cassette.Part B: Received in formalin labeled "other" with the description of "distal donut" consists of a 3 x 2 x 0.7 cm segment of bowel. There are no masses or lesions identified. The mucosal surface appears to be hemorrhagic and ocrdoba-pink. The specimen is submitted in its entirety into cassette B1.Part C: Received in formalin labeled "other" with the description of "proximal donut" consists of a 1.5 x 1 x 0.8 cm portion of bowel. The mucosal surface and serosa surface are cordoba-pink. ewINTRAOPERATIVE CONSULTATION DIAGNOSIS, SIGMOID AND RECTUM, RESECTION: - TUMOR GROSSLY IDENTIFIED - 3.3 CM FROM THE DISTAL MARGIN - VERBALLY REPORTED BY DR. PEOPLES AT 7:18 P.M. Performed.The following special studies were performed on this case and the interpretation is incorporated in the diagnostic report above:IHC testing for all four MMR proteins was performed on selected block A9 with appropriate controls.RESULTSMLH1: Intact nuclear expressionMSH2: Intact nuclear expressionMSH6: Intact nuclear expressionPMS2: Intact nuclear expressionIHC InterpretationNo loss of nuclear expression of MMR proteins: low probability of microsatellite instability-high (MSI-H)# #There are exceptions to the above IHC interpretations. These results should not be considered in isolation, and clinical correlation with genetic counseling is recommended to assess the need for germline testing.The immunohistochemistry test was developed and its performance characteristics determined by [facility], Pathology Laboratory. It has not been cleared [...] qualified to perform high complexity clinical laboratory testing.POCT-GLUCOSE [id number] 08:00:00 Test Item Value Reference Range Comments POC-GLUCOSE METER (BEAKER) 293 mg/dL 70-110 TESTED AT [place] [id number] [facility] (test qawf=0112) [facility] [address] POCT-GLUCOSE [id number] 06:22:00 Test Item Value Reference Range Comments POC-GLUCOSE METER (BEAKER) 220 mg/dL 70-110 TESTED AT [address] (test vkov=2233) [facility] [address] LACTIC ACID, ARTERIAL, WHOLE [id number] 06:10:00 Test Item Value Reference Range Comments LACTATE BLOOD ARTERIAL (2) 2.4 mmol/L 0.5-2.2 Specimen slightly hemolyzed (BEAKER) (test pedw=0852) Effective 06/29/2015: Units/Reference Range ChangeNew: 0.5-2.2 mmol/L Previous: 5 -20 mg/dLCALCIUM, [id number] 05:49:00 Test Item Value Reference Range Comments CALCIUM IONIZED (BEAKER) (test jolj=223) 1.14 mmol/L 1.12-1.27 PH, BLOOD (BEAKER) (test mhxa=1513) 7.36 BASIC METABOLIC [id number] 05:30:00 Test Item Value Reference Range Comments SODIUM (BEAKER) (test 139 meq/L 136-145 ypvn=378) POTASSIUM (BEAKER) (test 3.6 meq/L 3.5-5.1 bdfi=451) CHLORIDE (BEAKER) (test 106 meq/L 98-107 plhz=030) CO2 (BEAKER) (test 22 meq/L 22-29 wtif=561) BLOOD UREA NITROGEN 22 mg/dL 7-21 (BEAKER) (test ohhi=164) CREATININE (BEAKER) (test 1.39 mg/dL 0.57-1.25 afpp=700) GLUCOSE RANDOM (BEAKER) 219 mg/dL 70-105 (test frzt=107) CALCIUM (BEAKER) (test 8.9 mg/dL 8.4-10.2 wodw=458) EGFR (BEAKER) (test 52 mL/min/1.73 sq m ESTIMATED GFR IS NOT zsko=8568) ACCURATE CREATININE CLEARANCE IN PREDICTING GLOMERULAR FILTRATION RATE. ESTIMATED GFR IS NOT APPLICABLE FOR DIALYSIS PATIENTS. [id number] 05:24:00 Test Item Value Reference Range Comments PHOSPHORUS (BEAKER) (test iwff=262) 3.4 mg/dL 2.3-4.7 [id number] 05:24:00 Test Item Value Reference Range Comments MAGNESIUM (BEAKER) (test tfnp=340) 1.7 mg/dL 1.6-2.6 RAD, CHEST, 1 VIEW, NON [id number] 05:08:00Reason for exam:-> IntubatedShould this be performed at the bedside?->YesFINAL REPORT RAD, CHEST, 1 VIEW, NON DEPT INDICATION: Intubated COMPARISON: Prior day's exam FINDINGS: Portable frontal view of the chest. IMPRESSION: Support Lines: Stable. Lungs and pleura: Low lung volumes, decreased from prior. Bibasilar subsegmental atelectasis. No discernible effusion. No pneumothorax.Heart and mediastinum: Stable contours. Additional findings: None. Signed: JR Nguyen Robert MDReport Verified Date/Time: 01/25/2017 05:08: 59 Reading Location: [facility] C013Y CT Body Reading Room CBC W/PLT COUNT & AUTO [id number] 04:52:00 Test Item Value Reference Range Comments WHITE BLOOD CELL COUNT (BEAKER) (test tguw=237) 5.3 K/ L 3.5-10.5 RED BLOOD CELL COUNT (BEAKER) (test tyvm=605) 4.82 M/ L 4.63-6.08 HEMOGLOBIN (BEAKER) (test jeyb=299) 14.1 GM/DL 13.7-17.5 HEMATOCRIT (BEAKER) (test tijw=804) 42.6 % 40.1-51.0 MEAN CORPUSCULAR VOLUME (BEAKER) (test jynq=745) 88.4 fL 79.0-92.2 MEAN CORPUSCULAR HEMOGLOBIN (BEAKER) (test 29.3 pg 25.7-32.2 sove=559) MEAN CORPUSCULAR HEMOGLOBIN CONC (BEAKER) (test 33.1 GM/DL 32.3-36.5 bkpa=891) RED CELL DISTRIBUTION WIDTH (BEAKER) (test 13.8 % 11.6-14.4 iuvw=206) PLATELET COUNT (BEAKER) (test mecn=130) 180 K/CU MM 150-450 MEAN PLATELET VOLUME (BEAKER) (test kyix=114) 10.1 fL 9.4-12.4 NUCLEATED RED BLOOD CELLS (BEAKER) (test 0 /100 WBC 0-0 xqiq=995) NEUTROPHILS RELATIVE PERCENT (BEAKER) (test 79 % jsra=077) LYMPHOCYTES RELATIVE PERCENT (BEAKER) (test 9 % vuvs=388) MONOCYTES RELATIVE PERCENT (BEAKER) (test 11 % uelq=172) EOSINOPHILS RELATIVE PERCENT (BEAKER) (test 0 % dbpa=022) BASOPHILS RELATIVE PERCENT (BEAKER) (test 0 % ctma=920) NEUTROPHILS ABSOLUTE COUNT (BEAKER) (test 4.20 K/ L 1.78-5.38 bock=289) LYMPHOCYTES ABSOLUTE COUNT (BEAKER) (test 0.47 K/ L 1.32-3.57 llnf=027) MONOCYTES ABSOLUTE COUNT (BEAKER) (test 0.60 K/ L 0.30-0.82 apep=359) EOSINOPHILS ABSOLUTE COUNT (BEAKER) (test 0.00 K/ L 0.04-0.54 jmrp=710) BASOPHILS ABSOLUTE COUNT (BEAKER) (test 0.02 K/ L 0.01-0.08 zvtp=762) IMMATURE GRANULOCYTES-RELATIVE PERCENT (BEAKER) 1 % 0-1 (test wvxg=5712) POCT-GLUCOSE [id number] 04:18:00 Test Item Value Reference Range Comments POC-GLUCOSE METER (BEAKER) 198 mg/dL 70-110 TESTED AT [address] (test tldv=3185) [facility] [address] POCT-GLUCOSE [id number] 02:58:00 Test Item Value Reference Range Comments POC-GLUCOSE METER (BEAKER) 227 mg/dL 70-110 TESTED AT [address] (test fsvv=9189) [place] [id number] POCT-GLUCOSE [id number] 02:58:00 Test Item Value Reference Range Comments POC-GLUCOSE METER (BEAKER) 245 mg/dL 70-110 TESTED AT [address] (test gpzu=1568) [place] [id number] BLOOD GAS, [id number] 00:48:00 Test Item Value Reference Range Comments PH ARTERIAL (BEAKER) (test sgen=811) 7.39 7.35-7.45 PCO2 ARTERIAL (BEAKER) (test bpuk=395) 37 mmHg 35-45 PO2 ARTERIAL (BEAKER) (test txuw=362) 76 mmHg 80-90 O2 SATURATION ARTERIAL (BEAKER) (test cccm=470) 95.3 % 96.0-97.0 HCO3 ARTERIAL (BEAKER) (test twmj=897) 22 mmol/L 21-29 BASE EXCESS ARTERIAL (BEAKER) (test rkeu=762) -2.5 mmol/L -2.0-3.0 PATIENT TEMPERATURE (BEAKER) (test uoxk=9364) 36.9 C FIO2 (BEAKER) (test pwbi=6442) 70.0 % POCT-GLUCOSE [id number] 23:57:00 Test Item Value Reference Range Comments POC-GLUCOSE METER (BEAKER) 286 mg/dL 70-110 TESTED AT [address] (test lszb=2777) [facility] [address] POCT-GLUCOSE [id number] 23:57:00 Test Item Value Reference Range Comments POC-GLUCOSE METER (BEAKER) 276 mg/dL 70-110 TESTED AT [address] (test zwrl=6577) [place] [id number] CBC W/PLT COUNT & AUTO [id number] 22:13:00 Test Item Value Reference Range Comments WHITE BLOOD CELL COUNT (BEAKER) (test bycd=586) 5.1 K/ L 3.5-10.5 RED BLOOD CELL COUNT (BEAKER) (test fxjv=289) 4.89 M/ L 4.63-6.08 HEMOGLOBIN (BEAKER) (test rrwv=768) 14.4 GM/DL 13.7-17.5 HEMATOCRIT (BEAKER) (test xybz=945) 44.6 % 40.1-51.0 MEAN CORPUSCULAR VOLUME (BEAKER) (test wvna=662) 91.2 fL 79.0-92.2 MEAN CORPUSCULAR HEMOGLOBIN (BEAKER) (test 29.4 pg 25.7-32.2 evvs=377) MEAN CORPUSCULAR HEMOGLOBIN CONC (BEAKER) (test 32.3 GM/DL 32.3-36.5 efjj=194) RED CELL DISTRIBUTION WIDTH (BEAKER) (test 13.6 % 11.6-14.4 qjkk=867) PLATELET COUNT (BEAKER) (test lhsc=718) 192 K/CU MM 150-450 MEAN PLATELET VOLUME (BEAKER) (test mbgp=773) 9.4 fL 9.4-12.4 NUCLEATED RED BLOOD CELLS (BEAKER) (test 1 /100 WBC 0-0 rkqr=942) IMMATURE GRANULOCYTES-RELATIVE PERCENT (BEAKER) 2 % 0-1 (test pewe=0856) (MANUAL DIFFERENTIAL)[id number] 22:13:00 Test Item Value Reference Range Comments NEUTROPHILS - REL (DIFF) (BEAKER) (test wwpb=8058) 18 % LYMPHOCYTES - REL (DIFF) (BEAKER) (test arnm=3097) 27 % MONOCYTES - REL (DIFF) (BEAKER) (test cpzh=6480) 11 % EOSINOPHILS - REL (DIFF) (BEAKER) (test fhvb=7795) 2 % METAMYELOCYTES-REL (DIFF) (BEAKER) (test ttnf=770) 3 % 0-0 MYELOCYTES-REL (DIFF) (BEAKER) (test whsy=1693) 2 % 0-0 PROMYELOCYTES-REL (DIFF) (BEAKER) (test bmwr=462) 1 % 0-0 BANDS - REL (DIFF) (BEAKER) (test bqqu=9568) 36 % 0-10 NEUTROPHILS - ABS (DIFF) (BEAKER) (test zyeg=9740) 0.92 K/ L 1.80-8.00 LYMPHOCYTES - ABS (DIFF) (BEAKER) (test owgr=0053) 1.38 K/ L 1.48-4.50 MONOCYTES - ABS (DIFF) (BEAKER) (test jflo=7366) 0.56 K/ L 0.00-1.30 EOSINOPHILS - ABS (DIFF) (BEAKER) (test vamk=1691) 0.10 K/ L 0.00-0.50 METAMYELOCTYES - ABS (DIFF) (BEAKER) (test 0.15 K/ L 0.00-0.00 bmhz=544) PROMYELOCYTES - ABS (DIFF) (BEAKER) (test 0.05 K/ L 0.00-0.00 ntze=565) BANDS-ABS (DIFF) (BEAKER) (test lknd=6380) 1.8 K/ L 0.0-0.8 MYELOCYTES-ABS (DIFF) (BEAKER) (test fhsj=1047) 0.10 K/ L 0.00-0.00 TOTAL COUNTED (BEAKER) (test vtwc=2014) 100 BANDS + SEGMENTED NEUTROPHILS (BEAKER) (test 2.75 gqbw=8496) DOHLE BODIES (BEAKER) (test ljhi=952) Present VACUOLATED NEUTROPHILS (BEAKER) (test hqjo=822) Present GIANT PLATELETS (BEAKER) (test nnmx=703) Present ANISOCYTOSIS (BEAKER) (test yzki=793) 1+ few MICROCYTES (BEAKER) (test fgme=342) 1+ few [id number] 21:56:00 Test Item Value Reference Range Comments PHOSPHORUS (BEAKER) (test ejoj=079) 4.1 mg/dL 2.3-4.7 [id number] 21:56:00 Test Item Value Reference Range Comments MAGNESIUM (BEAKER) (test kjvd=861) 1.3 mg/dL 1.6-2.6 COMPREHENSIVE METABOLIC [id number] 21:56:00 Test Item Value Reference Range Comments TOTAL PROTEIN (BEAKER) 5.2 gm/dL 6.0-8.3 (test munm=035) ALBUMIN (BEAKER) (test 3.1 g/dL 3.5-5.0 zbnc=7055) ALKALINE PHOSPHATASE 72 U/L 40-150 (BEAKER) (test aqpm=788) BILIRUBIN TOTAL (BEAKER) 1.5 mg/dL 0.2-1.2 (test mgdv=514) SODIUM (BEAKER) (test 136 meq/L 136-145 fmca=239) POTASSIUM (BEAKER) (test 4.1 meq/L 3.5-5.1 xlzg=296) CHLORIDE (BEAKER) (test 104 meq/L 98-107 olhw=255) CO2 (BEAKER) (test 20 meq/L 22-29 oxtd=544) BLOOD UREA NITROGEN 20 mg/dL 7-21 (BEAKER) (test knlt=252) CREATININE (BEAKER) (test 1.52 mg/dL 0.57-1.25 yfqz=108) GLUCOSE RANDOM (BEAKER) 283 mg/dL 70-105 (test dopi=998) CALCIUM (BEAKER) (test 7.6 mg/dL 8.4-10.2 fdfc=209) AST (SGOT) (BEAKER) (test 16 U/L 5-34 rbpc=645) ALT (SGPT) (BEAKER) (test 12 U/L 6-55 wyqx=100) EGFR (BEAKER) (test 47 mL/min/1.73 sq m ESTIMATED GFR IS NOT zomf=2189) ACCURATE CREATININE CLEARANCE IN PREDICTING GLOMERULAR FILTRATION RATE. ESTIMATED GFR IS NOT APPLICABLE FOR DIALYSIS PATIENTS. LACTIC ACID, ARTERIAL, WHOLE [id number] 21:50:00 Test Item Value Reference Range Comments LACTATE BLOOD ARTERIAL (2) 1.8 mmol/L 0.5-2.2 Specimen slightly hemolyzed (BEAKER) (test nyxo=3274) Effective 06/29/2015: Units/Reference Range ChangeNew: 0.5-2.2 mmol/L Previous: 5 -20 mg/dLBLOOD GAS, [id number] 21:46:00 Test Item Value Reference Range Comments PH ARTERIAL (BEAKER) (test bbor=968) 7.20 7.35-7.45 PCO2 ARTERIAL (BEAKER) (test najo=220) 52 mmHg 35-45 PO2 ARTERIAL (BEAKER) (test abbg=267) 181 mmHg 80-90 O2 SATURATION ARTERIAL (BEAKER) (test btbu=339) 98.9 % 96.0-97.0 HCO3 ARTERIAL (BEAKER) (test nkhp=002) 20 mmol/L 21-29 BASE EXCESS ARTERIAL (BEAKER) (test ugrh=329) -8.1 mmol/L -2.0-3.0 PATIENT TEMPERATURE (BEAKER) (test eyrs=6742) 38.1 C FIO2 (BEAKER) (test ljjy=4047) 100.0 % SODIUM NA-STAT [id number] 19:24:00 Test Item Value Reference Range Comments SODIUM (BEAKER) (test exgj=497) 133 meq/L 135-148 HGB/HCT (H&H) - STAT [id number] 19:24:00 Test Item Value Reference Range Comments HEMOGLOBIN (BEAKER) (test akpw=050) 18.0 g/dL 13.0-16.8 HEMATOCRIT (BEAKER) (test nghk=908) 53.0 % 40.0-50.0 BLOOD GAS, [id number] 19:23:00 Test Item Value Reference Range Comments PH ARTERIAL (BEAKER) (test pmzf=113) 7.19 7.35-7.45 PCO2 ARTERIAL (BEAKER) (test kthy=959) 52 mmHg 35-45 PO2 ARTERIAL (BEAKER) (test eequ=226) 196 mmHg 80-90 O2 SATURATION ARTERIAL (BEAKER) (test odei=438) 99.0 % 96.0-97.0 HCO3 ARTERIAL (BEAKER) (test dhft=545) 19 mmol/L 21-29 BASE EXCESS ARTERIAL (BEAKER) (test dzke=330) -9.3 mmol/L -2.0-3.0 PATIENT TEMPERATURE (BEAKER) (test ilac=9170) 37.0 C GLUCOSE-STAT [id number] 19:23:00 Test Item Value Reference Range Comments GLUCOSE RANDOM (BEAKER) (test asgb=783) 280 mg/dL 70-110 POTASSIUM-STAT [id number] 19:20:00 Test Item Value Reference Range Comments POTASSIUM (BEAKER) (test mhnl=608) 4.1 meq/L 3.6-5.5 POCT-GLUCOSE [id number] 17:18:00 Test Item Value Reference Range Comments POC-GLUCOSE METER (BEAKER) 202 mg/dL 70-110 TESTED AT [facility] [address] [facility] (test xlhx=8767) [place] [address] RAD, CHEST, 1 VIEW, NON [id number] 17:11:00Reason for exam:->central line placementShould this be performed at the bedside?->YesFINAL REPORT Chest, 1 view. History: Central line placement. Comparison: X-ray from earlier today. Discussion: A new right IJ central line terminates near the cavoatrial junction. ET and nasogastric tubes are unchanged in position. There is no evidence of a pneumothorax. The cardiomediastinal silhouette and pulmonary vasculature are within normal limits for a portable exam. Linear opacities are present at the right lung base. The soft tissues and osseous structures are intact. IMPRESSION: Right IJ central line is in adequate position without evidence of complication. Signed: Terell Koenig MDReport Verified Date/Time: 01/24/2017 17:11:16 Reading Location: [facility] Mammo Reading Room [id number] 16:30:00 Test Item Value Reference Range Comments PHOSPHORUS (BEAKER) (test ecnw=789) 1.6 mg/dL 2.3-4.7 Add-on to specimenAdd on to sent specimenAdd-on to sent [id number] 16:30:00 Test Item Value Reference Range Comments MAGNESIUM (BEAKER) (test wkbz=244) 1.4 mg/dL 1.6-2.6 Add-on to specimenAdd on to sent specimenAdd-on to sent specimenBASIC METABOLIC [id number] 16:30:00 Test Item Value Reference Range Comments SODIUM (BEAKER) (test 134 meq/L 136-145 xfgf=566) POTASSIUM (BEAKER) (test 3.9 meq/L 3.5-5.1 wmpk=828) CHLORIDE (BEAKER) (test 102 meq/L 98-107 cdyf=509) CO2 (BEAKER) (test 19 meq/L 22-29 dluj=853) BLOOD UREA NITROGEN 18 mg/dL 7-21 (BEAKER) (test ibiz=628) CREATININE (BEAKER) (test 0.89 mg/dL 0.57-1.25 fcet=310) GLUCOSE RANDOM (BEAKER) 270 mg/dL 70-105 (test ssgv=595) CALCIUM (BEAKER) (test 8.5 mg/dL 8.4-10.2 twzb=879) EGFR (BEAKER) (test 88 mL/min/1.73 sq m ESTIMATED GFR IS NOT cqlp=5269) ACCURATE CREATININE CLEARANCE IN PREDICTING GLOMERULAR FILTRATION RATE. ESTIMATED GFR IS NOT APPLICABLE FOR DIALYSIS PATIENTS. Add-on to specimenAdd on to sent specimenAdd-on to sent specimenLACTIC ACID, ARTERIAL, WHOLE [id number] 16:25:00 Test Item Value Reference Range Comments LACTATE BLOOD ARTERIAL (2) 1.5 mmol/L 0.5-2.2 Specimen slightly hemolyzed (BESMITA) (test pozd=8447) Effective 06/29/2015: Units/Reference Range ChangeNew: 0.5-2.2 mmol/L Previous: 5 -20 mg/dLPlease add on to specimen sentCT, CHEST, WITH [id number] 16:23: 00FINAL REPORT CT of the Chest, abdomen and [...] distended. No gallstone or biliary dilatation is noted.Pancreas is atrophic. There are adrenals are unremarkable. [...] fluid is seen in the perihepatic space. Impression : 1. Extraluminal GI contrast collections in the perirectal region and mid pelvis suggestive of anastomotic leak.2. Pneumoperitoneum.3. Subcutaneous gas emphysema in the chest, abdomen and pelvis4. Trace ascites in the abdomen. 5. Distended gallbladder without gallstone or biliary dilatation. 6. Bibasilar subsegmental atelectasis. Signed: Monster Forbes MDReport Verified Date/Time: 16:23:54 Reading Location: [address] Body Reading Room CT, [id number] 16:23:00Please administer with rectal contrast.FINAL REPORT CT of the Chest, abdomen and [...] distended. No gallstone or biliary dilatation is noted.Pancreas is atrophic. There are adrenals are unremarkable. [...] region and mid pelvis suggestive of anastomotic leak.2. Pneumoperitoneum.3. Subcutaneous gas emphysema in the chest, abdomen and pelvis4. Trace ascites in the abdomen. 5. Distended gallbladder without gallstone or biliary dilatation. 6. Bibasilar subsegmental atelectasis. Signed: Monster Forbes MDReport Verified Date/Time: 01/24/2017 16:23:54 Reading Location: [facility] C013Y CT Body Reading Room CBC (HEMOGRAM ONLY)2017-01-24 16:16:00 Test Item Value Reference Range Comments WHITE BLOOD CELL COUNT (BEAKER) (test vlvf=189) 2.6 K/ L 3.5-10.5 RED BLOOD CELL COUNT (BEAKER) (test xqmm=283) 5.59 M/ L 4.63-6.08 HEMOGLOBIN (BEAKER) (test mwiw=030) 16.5 GM/DL 13.7-17.5 HEMATOCRIT (BEAKER) (test atwx=949) 49.0 % 40.1-51.0 MEAN CORPUSCULAR VOLUME (BEAKER) (test pvpq=751) 87.7 fL 79.0-92.2 MEAN CORPUSCULAR HEMOGLOBIN (BEAKER) (test 29.5 pg 25.7-32.2 gjrd=212) MEAN CORPUSCULAR HEMOGLOBIN CONC (BEAKER) (test 33.7 GM/DL 32.3-36.5 ugdd=007) RED CELL DISTRIBUTION WIDTH (BEAKER) (test 13.4 % 11.6-14.4 gbnm=495) PLATELET COUNT (BEAKER) (test wnga=229) 212 K/CU MM 150-450 MEAN PLATELET VOLUME (BEAKER) (test wtkb=209) 9.5 fL 9.4-12.4 NUCLEATED RED BLOOD CELLS (BEAKER) (test 0 /100 WBC 0-0 ampi=842) RAD, ABDOMEN/KUB, 1 VIEW [id number] 15:22:00Shoot highReason for exam:->OG tube insertedFINAL REPORT Technique: Single radiograph of the abdomen dated 01/24/2017. HISTORY: OG tube placement. COMPARISON: None IMPRESSION:NG tube is vaguely seen with the tip in the region of the gastric fundus. Multiple tubes project over the left hemiabdomen. No air-filled, dilated loops of bowel to suggest obstruction. No free intraperitoneal air. No abnormal soft tissue mass or calcification. No fracture. Signed: Galileo Orellanaort Verified Date/Time: 01/24/2017 15:22:17 Reading Location: [facility] Radiology Reading Room Electronically signed by: GALILEO ORELLANAon 01/24/2017 03:22 PMRAD, CHEST, 1 VIEW, NON [id number] 14:28: 00Reason for exam:->ET TubeShould this be performed at the bedside?-> YesFINAL REPORT TECHNIQUE: Frontal chest radiograph dated 01/24/2017. CLINICAL HISTORY: ET tube COMPARISON STUDY: Chest radiograph performed earlier the same day IMPRESSION:Endotracheal tube is 4.9 cm above the tiago. NG tube is seen with its tip below the edge of the film. No focal consolidation. No pleural effusion or pneumothorax. Cardiomediastinal silhouette is stable in size. No pulmonary edema. Subcutaneous emphysema is unchanged. Signed: Galileo Orellanaort Verified Date/Time: 01/24/2017 14:28:19 Reading Location: [facility] Radiology Reading Room RAD, CHEST, 1 VIEW, NON [id number] 13:08:00Reason for exam:->increased work of breathing, feverShould this be performed at the bedside?->YesFINAL REPORT Chest, 1 view. Comparison: 01/23/2017. Discussion: The patientis rotated. There is poor inspiration. The cardiomediastinal silhouette and pulmonary vasculature are within normal limits for a portable exam. The lungs are clear without evidence of consolidation or effusion. Minimal left chest wall subcutaneous emphysema is again noted. IMPRESSION: Limited exam. No acute cardiopulmonary abnormality. Signed: Terell Koenigeport Verified Date/Time : 01/24/2017 13:08:51 Reading Location: [facility] Mammo Reading Room BLOOD GAS , [id number] 12:42:00 Test Item Value Reference Range Comments PH ARTERIAL (BEAKER) (test bncl=583) 7.49 7.35-7.45 PCO2 ARTERIAL (BEAKER) (test qaym=210) 28 mmHg 35-45 PO2 ARTERIAL (BEAKER) (test yeqo=818) 97 mmHg 80-90 O2 SATURATION ARTERIAL (BEAKER) (test mdxe=352) 97.5 % 96.0-97.0 HCO3 ARTERIAL (BEAKER) (test srfb=816) 20 mmol/L 21-29 BASE EXCESS ARTERIAL (BEAKER) (test mive=520) -0.4 mmol/L -2.0-3.0 PATIENT TEMPERATURE (BEAKER) (test dilq=2153) 38.8 C FIO2 (BEAKER) (test frhc=2646) 21.0 % POCT-GLUCOSE [id number] 12:28:00 Test Item Value Reference Range Comments POC-GLUCOSE METER (BEAKER) 101 mg/dL 70-110 TESTED AT [address] (test qkja=3071) [facility] [address] POCT-GLUCOSE [id number] 11:51:00 Test Item Value Reference Range Comments POC-GLUCOSE METER (BEAKER) 153 mg/dL 70-110 TESTED AT [address] (test fnkl=0285) [facility] [address] POCT-GLUCOSE [id number] 10:36:00 Test Item Value Reference Range Comments POC-GLUCOSE METER (BEAKER) 145 mg/dL 70-110 TESTED AT [address] (test hkhr=2955) [facility] [address] POCT-GLUCOSE [id number] 09:46:00 Test Item Value Reference Range Comments POC-GLUCOSE METER (BEAKER) 132 mg/dL 70-110 TESTED AT [address] (test xkjp=3473) [place] [id number] POCT-GLUCOSE [id number] 08:38:00 Test Item Value Reference Range Comments POC-GLUCOSE METER (BEAKER) 108 mg/dL 70-110 TESTED AT [facility] [address] [facility] (test vyld=8949) [facility] [address] POCT-GLUCOSE [id number] 06:41:00 Test Item Value Reference Range Comments POC-GLUCOSE METER (BEAKER) 132 mg/dL 70-110 TESTED AT [address] (test nhlw=8745) [facility] [address] CALCIUM, [id number] 06:36:00 Test Item Value Reference Range Comments CALCIUM IONIZED (BEAKER) (test kwza=124) 1.11 mmol/L 1.12-1.27 PH, BLOOD (BEAKER) (test xlco=5745) 7.45 [id number] 05:35:00 Test Item Value Reference Range Comments PHOSPHORUS (BEAKER) (test xrdz=919) 1.4 mg/dL 2.3-4.7 [id number] 04:55:00 Test Item Value Reference Range Comments THYROID STIMULATING HORMONE (BEAKER) (test 1.39 uIU/mL 0.35-4.94 inyv=795) [id number] 04:38:00 Test Item Value Reference Range Comments MAGNESIUM (BEAKER) (test qlkb=605) 1.8 mg/dL 1.6-2.6 BASIC METABOLIC [id number] 04:38:00 Test Item Value Reference Range Comments SODIUM (BEAKER) (test 137 meq/L 136-145 slct=360) POTASSIUM (BEAKER) (test 3.6 meq/L 3.5-5.1 uoqe=480) CHLORIDE (BEAKER) (test 103 meq/L 98-107 gkhb=865) CO2 (BEAKER) (test 27 meq/L 22-29 behs=884) BLOOD UREA NITROGEN 14 mg/dL 7-21 (BEAKER) (test slui=507) CREATININE (BEAKER) (test 0.90 mg/dL 0.57-1.25 zzbp=703) GLUCOSE RANDOM (BEAKER) 172 mg/dL 70-105 (test wvzj=422) CALCIUM (BEAKER) (test 8.9 mg/dL 8.4-10.2 jzdq=072) EGFR (BEAKER) (test 87 mL/min/1.73 sq m ESTIMATED GFR IS NOT rdyt=8483) ACCURATE CREATININE CLEARANCE IN PREDICTING GLOMERULAR FILTRATION RATE. ESTIMATED GFR IS NOT APPLICABLE FOR DIALYSIS PATIENTS. CBC (HEMOGRAM ONLY)2017-01-24 04:23:00 Test Item Value Reference Range Comments WHITE BLOOD CELL COUNT (BEAKER) (test eqwz=295) 8.6 K/ L 3.5-10.5 RED BLOOD CELL COUNT (BEAKER) (test moma=261) 4.61 M/ L 4.63-6.08 HEMOGLOBIN (BEAKER) (test ufho=317) 13.5 GM/DL 13.7-17.5 HEMATOCRIT (BEAKER) (test sklp=832) 40.7 % 40.1-51.0 MEAN CORPUSCULAR VOLUME (BEAKER) (test itpe=091) 88.3 fL 79.0-92.2 MEAN CORPUSCULAR HEMOGLOBIN (BEAKER) (test 29.3 pg 25.7-32.2 ylwy=733) MEAN CORPUSCULAR HEMOGLOBIN CONC (BEAKER) (test 33.2 GM/DL 32.3-36.5 zyzm=138) RED CELL DISTRIBUTION WIDTH (BEAKER) (test 13.4 % 11.6-14.4 uupu=692) PLATELET COUNT (BEAKER) (test ryxl=049) 165 K/CU MM 150-450 MEAN PLATELET VOLUME (BEAKER) (test umqd=507) 9.3 fL 9.4-12.4 NUCLEATED RED BLOOD CELLS (BEAKER) (test 0 /100 WBC 0-0 jrsz=282) POCT-GLUCOSE [id number] 04:14:00 Test Item Value Reference Range Comments POC-GLUCOSE METER (BEAKER) 155 mg/dL 70-110 TESTED AT [facility] [address] [facility] (test msxb=6592) [facility] [address] URINALYSIS W/ REFLEX URINE [id number] 03:51:00 Test Item Value Reference Range Comments COLOR (BEAKER) (test gmru=199) Yellow CLARITY (BEAKER) (test hhrv=121) Clear SPECIFIC GRAVITY UA (BEAKER) (test qqcc=916) 1.011 1.001-1.035 PH UA (BEAKER) (test zgta=087) 7.5 5.0-8.0 PROTEIN UA (BEAKER) (test ekix=850) 10 mg/dL Negative GLUCOSE UA (BEAKER) (test etwf=489) 150 mg/dL Negative KETONES UA (BEAKER) (test uhcg=263) 20 mg/dL Negative BILIRUBIN UA (BEAKER) (test stsj=398) Negative Negative BLOOD UA (BEAKER) (test mpmo=560) Small Negative NITRITE UA (BEAKER) (test aotd=035) Negative Negative LEUKOCYTE ESTERASE UA (BEAKER) (test mrae=605) Negative Negative UROBILINOGEN UA (BEAKER) (test kmtp=250) 0.2 mg/dL 0.2-1.0 RBC UA (BEAKER) (test pdqs=349) 4 /HPF WBC UA (BEAKER) (test esme=156) 2 /HPF BACTERIA (BEAKER) (test fuia=917) Rare MUCUS (BEAKER) (test gibj=1659) Rare SOURCE(BEAKER) (test gejz=1307) POCT-GLUCOSE [id number] 02:09:00 Test Item Value Reference Range Comments POC-GLUCOSE METER (BEAKER) 166 mg/dL 70-110 TESTED AT [address] (test yuvi=9096) [place] [address] POCT-GLUCOSE [id number] 00:14:00 Test Item Value Reference Range Comments POC-GLUCOSE METER (BEAKER) 144 mg/dL 70-110 TESTED AT [address] (test kwhf=7889) [place] [address] POCT-GLUCOSE [id number] 22:22:00 Test Item Value Reference Range Comments POC-GLUCOSE METER (BEAKER) 133 mg/dL 70-110 TESTED AT [address] (test mkca=7314) [place] [address] POCT-GLUCOSE [id number] 22:22:00 Test Item Value Reference Range Comments POC-GLUCOSE METER (BEAKER) 138 mg/dL 70-110 TESTED AT [address] (test sfnw=7528) [place] [address] POCT-GLUCOSE [id number] 21:18:00 Test Item Value Reference Range Comments POC-GLUCOSE METER (BEAKER) 125 mg/dL 70-110 TESTED AT [address] (test klcw=3589) [place] [address] RAD, CHEST, 1 VIEW, NON [id number] 21:07:00Reason for exam:->eval for source of infectionShould this be performed at the bedside?->YesFINAL REPORT History: Infection, unknown source. Comparison: 2015 Findings: A single view of the chest is submitted. The examination is limited by low lung volumes, patient body habitus and motion artifact The cardiomediastinal contours are unremarkable. There is no focal consolidation, pneumothorax, large pleural effusion or evidence of overt pulmonary edema. There is subcutaneous emphysema in the left chest wall. Please correlate with history of procedure. Soft tissueinfection should be excluded clinically. There is no acute bony abnormality. Signed: Nilesh Sheets MDReport Verified Date /Time: 01/23/2017 21:07:52 Reading Location: [address] Reading Room POCT-GLUCOSE [id number] 19:36:00 Test Item Value Reference Range Comments POC-GLUCOSE METER (BEAKER) 148 mg/dL 70-110 TESTED AT [address] (test yumx=3931) [place] [address] POCT-GLUCOSE [id number] 18:04:00 Test Item Value Reference Range Comments POC-GLUCOSE METER (BEAKER) 170 mg/dL 70-110 TESTED AT [address] (test hnoy=2610) [facility] [address] POCT-GLUCOSE [id number] 17:38:00 Test Item Value Reference Range Comments POC-GLUCOSE METER (BEAKER) 184 mg/dL 70-110 TESTED AT [address] (test isgl=5554) [facility] [address] POCT-GLUCOSE [id number] 16:08:00 Test Item Value Reference Range Comments POC-GLUCOSE METER (BEAKER) 199 mg/dL 70-110 TESTED AT [address] (test qhot=9711) [facility] [address] POCT-GLUCOSE [id number] 16:08:00 Test Item Value Reference Range Comments POC-GLUCOSE METER (BEAKER) 304 mg/dL 70-110 Notified CATE NICHOLS/TESTED AT [facility] (test udvg=4145) [address] [place], [place] [id number] POCT-GLUCOSE [id number] 15:00:00 Test Item Value Reference Range Comments POC-GLUCOSE METER (BEAKER) 234 mg/dL 70-110 TESTED AT [address] (test sjnq=9225) [facility] [address] POCT-GLUCOSE [id number] 13:41:00 Test Item Value Reference Range Comments POC-GLUCOSE METER (BEAKER) 278 mg/dL 70-110 TESTED AT [address] (test tsal=5479) [place] [address] HEMOGLOBIN [id number] 13:38:00 Test Item Value Reference Range Comments HEMOGLOBIN A1C (BEAKER) (test ipbt=836) 8.2 % 4.3-6.1 POCT-GLUCOSE [id number] 11:17:00 Test Item Value Reference Range Comments POC-GLUCOSE METER (BEAKER) 301 mg/dL 70-110 TESTED AT [address] (test zdlr=8917) [facility] [address] POCT-GLUCOSE [id number] 08:37:00 Test Item Value Reference Range Comments POC-GLUCOSE METER (BEAKER) 298 mg/dL 70-110 TESTED AT [address] (test kehm=7671) [facility] [address] POCT-GLUCOSE [id number] 08:19:00 Test Item Value Reference Range Comments POC-GLUCOSE METER (BEAKER) 253 mg/dL 70-110 TESTED AT [address] (test hsjp=6263) [facility] [address] POCT-GLUCOSE [id number] 07:05:00 Test Item Value Reference Range Comments POC-GLUCOSE METER (BEAKER) 250 mg/dL 70-110 TESTED AT [address] (test lgar=0808) [facility] [address] POCT-GLUCOSE [id number] 06:09:00 Test Item Value Reference Range Comments POC-GLUCOSE METER (BEAKER) 227 mg/dL 70-110 TESTED AT [address] (test etpm=2976) [facility] [address] POCT-GLUCOSE [id number] 06:08:00 Test Item Value Reference Range Comments POC-GLUCOSE METER (BEAKER) 286 mg/dL 70-110 TESTED AT [address] (test wmlo=5698) [facility] [address] POCT-GLUCOSE [id number] 06:08:00 Test Item Value Reference Range Comments POC-GLUCOSE METER (BEAKER) 266 mg/dL 70-110 TESTED AT [address] (test yumv=1572) [place] [address] BLOOD GAS, [id number] 03:37:00 Test Item Value Reference Range Comments PH VENOUS (BEAKER) (test awhc=166) 7.40 7.32-7.42 PCO2 VENOUS (BEAKER) (test rkmb=626) 50 mmHg 41-51 PO2 VENOUS (BEAKER) (test rcpo=759) 18 mmHg 25-40 O2 SATURATION VENOUS (BEAKER) (test uujn=338) 26.6 % 40.0-70.0 HCO3 VENOUS (BEAKER) (test wwjh=540) 30 mmol/L 21-29 BASE EXCESS VENOUS (BEAKER) (test hrer=645) 4.3 mmol/L -2.0-3.0 PATIENT TEMPERATURE (BEAKER) (test jyfm=6725) 37.0 C FIO2 (BEAKER) (test wqzx=4303) 100.0 % CALCIUM, [id number] 03:11:00 Test Item Value Reference Range Comments CALCIUM IONIZED (BEAKER) (test twxw=775) 1.10 mmol/L 1.12-1.27 PH, BLOOD (BEAKER) (test akbw=3841) 7.41 POCT-GLUCOSE [id number] 03:03:00 Test Item Value Reference Range Comments POC-GLUCOSE METER (BEAKER) 229 mg/dL 70-110 TESTED AT [address] (test fxhh=5729) [place] [address] [id number] 02:30:00 Test Item Value Reference Range Comments MAGNESIUM (BEAKER) (test 2.1 mg/dL 1.6-2.6 Specimen slightly hemolyzed xgnt=313) [id number] 02:30:00 Test Item Value Reference Range Comments PHOSPHORUS (BEAKER) (test 1.8 mg/dL 2.3-4.7 Specimen slightly hemolyzed fbuj=429) BASIC METABOLIC [id number] 02:30:00 Test Item Value Reference Range Comments SODIUM (BEAKER) (test 137 meq/L 136-145 vknu=525) POTASSIUM (BEAKER) (test 4.7 meq/L 3.5-5.1 Specimen slightly ukqn=326) hemolyzed CHLORIDE (BEAKER) (test 102 meq/L 98-107 tnpc=382) CO2 (BEAKER) (test 26 meq/L 22-29 pxfp=283) BLOOD UREA NITROGEN 21 mg/dL 7-21 (BEAKER) (test exqk=318) CREATININE (BEAKER) (test 1.29 mg/dL 0.57-1.25 Specimen slightly pmfj=246) hemolyzed GLUCOSE RANDOM (BEAKER) 330 mg/dL 70-105 (test vpxc=519) CALCIUM (BEAKER) (test 8.7 mg/dL 8.4-10.2 ewgf=806) EGFR (BEAKER) (test 57 mL/min/1.73 sq m ESTIMATED GFR IS NOT cdil=7008) ACCURATE CREATININE CLEARANCE IN PREDICTING GLOMERULAR FILTRATION RATE. ESTIMATED GFR IS NOT APPLICABLE FOR DIALYSIS PATIENTS. CBC (HEMOGRAM ONLY)2017-01-23 02:08:00 Test Item Value Reference Range Comments WHITE BLOOD CELL COUNT (BEAKER) (test ldfm=830) 11.3 K/ L 3.5-10.5 RED BLOOD CELL COUNT (BEAKER) (test ojhu=768) 4.76 M/ L 4.63-6.08 HEMOGLOBIN (BEAKER) (test iesb=706) 14.1 GM/DL 13.7-17.5 HEMATOCRIT (BEAKER) (test offy=311) 41.9 % 40.1-51.0 MEAN CORPUSCULAR VOLUME (BEAKER) (test oupa=659) 88.0 fL 79.0-92.2 MEAN CORPUSCULAR HEMOGLOBIN (BEAKER) (test 29.6 pg 25.7-32.2 fzed=762) MEAN CORPUSCULAR HEMOGLOBIN CONC (BEAKER) (test 33.7 GM/DL 32.3-36.5 ikzr=635) RED CELL DISTRIBUTION WIDTH (BEAKER) (test 13.4 % 11.6-14.4 hnlc=863) PLATELET COUNT (BEAKER) (test fmxv=612) 176 K/CU MM 150-450 MEAN PLATELET VOLUME (BEAKER) (test udqc=872) 10.0 fL 9.4-12.4 NUCLEATED RED BLOOD CELLS (BEAKER) (test 0 /100 WBC 0-0 aujp=658) POCT-GLUCOSE [id number] 01:38:00 Test Item Value Reference Range Comments POC-GLUCOSE METER (BEAKER) 232 mg/dL 70-110 TESTED AT [address] (test sikf=0527) [facility] [address] POCT-GLUCOSE [id number] 20:52:00 Test Item Value Reference Range Comments POC-GLUCOSE METER (BEAKER) 327 mg/dL 70-110 TESTED AT [address] (test yaic=6865) [facility] [address] POCT-GLUCOSE [id number] 18:46:00 Test Item Value Reference Range Comments POC-GLUCOSE METER (BEAKER) 321 mg/dL 70-110 TESTED AT [address] (test omrj=6472) [place] [address] POCT-GLUCOSE [id number] 15:24:00 Test Item Value Reference Range Comments POC-GLUCOSE METER (BEAKER) 349 mg/dL 70-110 TESTED AT [address] (test gcei=5069) [place] [address] POCT-GLUCOSE [id number] 14:31:00 Test Item Value Reference Range Comments POC-GLUCOSE METER (BEAKER) 344 mg/dL 70-110 TESTED AT [address] (test ikmt=3140) [place] [address] POCT-GLUCOSE [id number] 12:31:00 Test Item Value Reference Range Comments POC-GLUCOSE METER (BEAKER) 346 mg/dL 70-110 TESTED AT [address] (test zeem=7701) [place] [address] [id number] 11:01:00 Test Item Value Reference Range Comments PHOSPHORUS (BEAKER) (test luur=104) 2.9 mg/dL 2.3-4.7 [id number] 11:01:00 Test Item Value Reference Range Comments MAGNESIUM (BEAKER) (test xmcd=842) 1.5 mg/dL 1.6-2.6 BASIC METABOLIC [id number] 11:01:00 Test Item Value Reference Range Comments SODIUM (BEAKER) (test 136 meq/L 136-145 fbzn=218) POTASSIUM (BEAKER) (test 4.5 meq/L 3.5-5.1 adtc=361) CHLORIDE (BEAKER) (test 104 meq/L 98-107 fkts=479) CO2 (BEAKER) (test 19 meq/L 22-29 ggme=826) BLOOD UREA NITROGEN 15 mg/dL 7-21 (BEAKER) (test psth=964) CREATININE (BEAKER) (test 1.22 mg/dL 0.57-1.25 zxvp=141) GLUCOSE RANDOM (BEAKER) 369 mg/dL 70-105 (test fcjw=672) CALCIUM (BEAKER) (test 8.4 mg/dL 8.4-10.2 uyzd=914) EGFR (BEAKER) (test 61 mL/min/1.73 sq m ESTIMATED GFR IS NOT cgxc=9422) ACCURATE CREATININE CLEARANCE IN PREDICTING GLOMERULAR FILTRATION RATE. ESTIMATED GFR IS NOT APPLICABLE FOR DIALYSIS PATIENTS. CALCIUM, [id number] 06:39:00 Test Item Value Reference Range Comments CALCIUM IONIZED (BEAKER) (test djpr=456) 0.92 mmol/L 1.12-1.27 PH, BLOOD (BEAKER) (test eapm=5407) 7.42 CBC (HEMOGRAM ONLY)2017-01-22 06:16:00 Test Item Value Reference Range Comments WHITE BLOOD CELL COUNT (BEAKER) (test lqhs=346) 9.8 K/ L 3.5-10.5 RED BLOOD CELL COUNT (BEAKER) (test fcmz=767) 5.12 M/ L 4.63-6.08 HEMOGLOBIN (BEAKER) (test ymcd=930) 14.9 GM/DL 13.7-17.5 HEMATOCRIT (BEAKER) (test atbh=588) 45.9 % 40.1-51.0 MEAN CORPUSCULAR VOLUME (BEAKER) (test xvvu=325) 89.6 fL 79.0-92.2 MEAN CORPUSCULAR HEMOGLOBIN (BEAKER) (test 29.1 pg 25.7-32.2 yvem=206) MEAN CORPUSCULAR HEMOGLOBIN CONC (BEAKER) (test 32.5 GM/DL 32.3-36.5 gpyr=943) RED CELL DISTRIBUTION WIDTH (BEAKER) (test 13.4 % 11.6-14.4 jvlz=704) PLATELET COUNT (BEAKER) (test gepf=775) 166 K/CU MM 150-450 MEAN PLATELET VOLUME (BEAKER) (test uqwi=806) 9.8 fL 9.4-12.4 NUCLEATED RED BLOOD CELLS (BEAKER) (test 0 /100 WBC 0-0 mydc=729) POCT-GLUCOSE [id number] 06:14:00 Test Item Value Reference Range Comments POC-GLUCOSE METER (BEAKER) 309 mg/dL 70-110 Notified CATE NICHOLS/TESTED AT [facility] (test rssv=8112) [address] [place] [address] POCT-GLUCOSE [id number] 21:42:00 Test Item Value Reference Range Comments POC-GLUCOSE METER (BEAKER) 252 mg/dL 70-110 TESTED AT [address] (test mush=9002) [facility] [address] POCT-GLUCOSE [id number] 09:56:00 Test Item Value Reference Range Comments POC-GLUCOSE METER (BEAKER) 226 mg/dL 70-110 TESTED AT [address] (test ssbo=5708) [facility] [address] POCT-GLUCOSE [id number] 13:27:00 Test Item Value Reference Range Comments POC-GLUCOSE METER (BEAKER) 172 mg/dL 70-110 TESTED AT [place] [id number] [facility] (test cqxz=8370) BLDG A [facility] [address]
[2017-06-07] MEDS ORDERED: NA CHLORIDE 0.9% 500 ML ONE (12:01)
[2017-06-07 12:18] LABS: Absolute Lymphocytes (CBC) 1.9 K/uL (0.7-4.9); Absolute Monocytes 0.9 K/uL (0.1-1.3); Absolute Neutrophil 7.5 K/uL (1.8-8.0); Basophils % 0.8 % (0-1.3); Hematocrit 41.7 % (39.6-49.0); Lymphocytes % 18.5 % (15.3-44.8); MCH 26.5 pg (27.0-35.0); MCV 84.2 fL (80-100); MPV 8.5 fL (7.6-11.3); Monocytes % 8.4 % (3.3-12.3); RBC Red Blood Cell Count 4.95 M/uL (4.33-5.43)
--- NOTE | 2017-06-07 12:18 | RAD REPORT ---
EXAM DESCRIPTION: CT - Head Brain Wo Cont - 06/07/2017 12:11 pm CLINICAL HISTORY: Altered consciousness COMPARISON: None. TECHNIQUE: All CT scans are performed using dose optimization technique as appropriate and may inclu de automated exposure control or mA/KV adjustment according to patient size. FINDINGS: No intracranial hemorrhage, hydrocephalus or extra-axial fluid collection.Moderate general ized brain atrophy is present with moderate periventricular and deep white matter chronic microvascul ar ischemic changes.No areas of brain edema or evidence of midline shift. The paranasal sinuses and mastoids are clear. The calvarium is intact. IMPRESSION: No acute intracranial abnormality.
[2017-06-07 12:30] LABS: Bicarbonate 25 mEq/L (21-31); Glucose Level 193 mg/dL (65-120); Lipase 13 U/L (22-51); Potassium 4.5 mEq/L (3.6-5.0); Sodium Level 135 mEq/L (135-145)
[2017-06-07 12:36] LABS: ALT/SGPT 15 IU/L (10-60); AST/SGOT 18 IU/L (10-42); Albumin 3.6 g/dL (3.2-5.5); Alkaline Phosphatase 75 IU/L (42-121); BUN Blood Urea Nitrogen 8 mg/dL (6-20); Bilirubin Direct 0.2 mg/dL (0-0.2); Bilirubin Total 0.7 mg/dL (0.3-1.2); Creatine Phosphokinase 39 IU/L (22-269); Glomerular Filtration Rate > 90 mL/min (=/>90); Magnesium 1.6 mg/dL (1.8-2.5)
--- NOTE | 2017-06-07 12:39 | RAD REPORT ---
EXAM DESCRIPTION: RAD - Chest Single View - 06/07/2017 12:18 pm CLINICAL HISTORY: Diabetes, chest pain COMPARISON: None. FINDINGS: Portable technique limits examination quality. The lungs are grossly clear. The heart is normal in size. No displaced fractures. IMPRESSION: No acute intrathoracic process suspected.
[2017-06-07 12:47] LABS: Barbiturates NEGATIVE; Benzodiazepines NEGATIVE; Cocaine NEGATIVE; METHAMPHETAM NEGATIVE; Opiates NEGATIVE; Phencyclidine NEGATIVE; THC Cannibis NEGATIVE
[2017-06-07 12:55] LABS: Calcium Oxalate Crystals- Ur PRESENT (NONE SEEN); Urine Bacteria NONE SEEN /HPF (NONE SEEN); Urine Culture Reflex Order REFLEXED; Urine Mucus HEAVY /HPF (NONE SEEN); Urine RBC >50 /HPF (NONE SEEN)
[2017-06-07 13:26] LABS: Protime INR 1.6
[2017-06-07] MEDS ORDERED: CEFTRIAXONE/SWI 1gm 2 GM/20 ML SYR ONE (13:37)
--- NOTE | 2017-06-07 13:50 | EDPHYS ---
Physician Documentation [facility] Name: Blu Palumbo Age: 57 yrs Sex: Male : 1960 Arrival Date: 06/07/2017 Time: 11:31 Bed 4 Private MD: ED Physician Shilo Badillo HPI: 06/07 12:12 This 57 yrs old Male presents to ER via EMS with complaints of Altered Mental wa Status. 12:12 The patient presents with decreased mental status, per , pt has been more drowsy wa than usual since last night. h/o colon CA. has been hope x 5 weeks since in-pt rehab. still bed-bound. denies fever, SOB, chest pain, abd pain or diarrhea. per , [facility] has [facility] bag. s/p abd surgery for colon CA. s/p intraabdominal infection that required revision with colostomy bag. pt denies complaint in ED on direct query. Onset: The symptoms/episode began/occurred last night. Possible causes: unknown. Associated signs and symptoms: Pertinent negatives: abdominal pain, chest pain, diaphoresis, diarrhea, dizziness, headache, lightheadedness, nausea, palpitations, shortness of breath, vomiting, weakness. Current symptoms: In the emergency department the patient's symptoms are unchanged from the initial presentation. Patient's baseline: Neuro: alert and fully oriented, Motor: moves all extremities but generally weak and bed-bound, Ambulation: unable to walk, Speech: normal, The patient has a previous history of CVA, colon CA. . The patient has not experienced similar symptoms in the past. The patient has not recently seen a physician. Historical: - Allergies: 11:37 No Known Allergies; sv - Home Meds: 11:37 loperamide 2 mg Oral tab [Active]; metoprolol tartrate 25 mg Oral tab [Active]; sv Myrbetriq 50 mg oral Tb24 [Active]; amiodarone 200 mg Oral tab [Active]; Eliquis 5 mg oral tab [Active]; atorvastatin 80 mg oral tab [Active]; digoxin 250 mcg Oral tab [Active]; famotidine 20 mg Oral tab [Active]; Synthroid Oral [Active]; Humulin R Sub-Q [Active]; - PMHx: 11:37 CVA; Colon cancer; Diabetes - IDDM; sepsis; sv - PSHx: 11:37 Colostomy; sv - Immunization history:: Adult Immunizations up to date. - Social history:: The patient lives with spouse, Smoking status: Patient/guardian denies using tobacco. - Family history:: not pertinent. - Hospitalizations: : No recent hospitalization is reported. - History obtained from: spouse. ROS: 12:20 Constitutional: Negative for fever, chills, and weight loss, Eyes: Negative for injury, wa pain, redness, and discharge, ENT: Negative for injury, pain, and discharge, Neck: Negative for injury, pain, and swelling, Cardiovascular: Negative for chest pain, palpitations, and edema, Respiratory: Negative for shortness of breath, cough, wheezing, and pleuritic chest pain, Abdomen/GI: Negative for abdominal pain, nausea, vomiting, diarrhea, and constipation, Back: Negative for injury and pain, : Negative for injury, bleeding, discharge, and swelling, MS/Extremity: Negative for injury and deformity, Skin: Negative for injury, rash, and discoloration. 12:20 Neuro: Positive for altered mental status. 12:20 All other systems are negative. Exam: 12:20 Head/Face: Normocephalic, atraumatic. Eyes: Pupils equal round and reactive to light, wa extra-ocular motions intact. Lids and lashes normal. Conjunctiva and sclera are non-icteric and not injected. Cornea within normal limits. Periorbital areas with no swelling, redness, or edema. ENT: Nares patent. No nasal discharge, no septal abnormalities noted. Tympanic membranes are normal and external auditory canals are clear. Oropharynx with no redness, swelling, or masses, exudates, or evidence of obstruction, uvula midline. Mucous membranes moist. Neck: Trachea midline, no thyromegaly or masses palpated, and no cervical lymphadenopathy. Supple, full range of motion without nuchal rigidity, or vertebral point tenderness. No Meningismus. Chest/axilla: Normal chest wall appearance and motion. Nontender with no deformity. No lesions are appreciated. Cardiovascular: Regular rate and rhythm with a normal S1 and S2. No gallops, murmurs, or rubs. Normal PMI, no JVD. No pulse deficits. Respiratory: Lungs have equal breath sounds bilaterally, clear to auscultation and percussion. No rales, rhonchi or wheezes noted. No increased work of breathing, no retractions or nasal flaring. Back: No spinal tenderness. No costovertebral tenderness. Full range of motion. Skin: Warm, dry with normal turgor. Normal color with no rashes, no lesions, and no evidence of cellulitis. MS/ Extremity: Pulses equal, no cyanosis. Neurovascular intact. Full, normal range of motion. 12:20 Constitutional: The patient appears appears weak generally. opens eyes and answers questions appropriately however. 12:20 Abdomen/GI: Inspection: noted colostomy bag with soft pasty stool, greenish in color, Bowel sounds: normal, in all quadrants, Palpation: abdomen is soft and non-tender, in all quadrants. 12:20 Neuro: Orientation: is normal, Mentation: mildly somnolent, Cranial nerves: grossly normal, Motor: moves all extremities symmetrically. appears generally deconditioned however. Vital Signs: 11:33 BP 114 / 86; Pulse 76; Resp 20; Temp 98.8(O); Pulse Ox 100% ; sv 12:08 BP 107 / 82; Pulse 79; Resp 20 S; Pulse Ox 100% on R/A; jl7 12:58 BP 116 / 79; Pulse 73; Resp 18 S; Pulse Ox 99% on R/A; jl7 MDM: 11:37 Patient medically screened. nj 12:23 Differential Diagnosis: CVA, electrolyte abnormality, hypoglycemia, intracranial bleed, wa pneumonia, sepsis, TIA, UTI, volume depletion. 13:47 Data reviewed: vital signs, nurses notes, lab test result(s), EKG, radiologic studies. nj Test interpretation: by ED physician or midlevel provider: EKG: HR 70. incomplete RBBB. non-specific ST-T changes. Labs noted for hyperglycemia and pyuria consistent with UTI. Head CT negative.. Response to treatment: the patient's symptoms have mildly improved after treatment. Special discussion: pt bed-bound and diapers. noted UTI. rocephin IV given. will d/c home with meds and close f/u with PMD. 06/07 11:52 Order name: Urine Microscopic Only; Complete Time: 13:36 06/07 11:52 Order name: UDS; Complete Time: 13:36 06/07 11:52 Order name: Basic Metabolic Panel; Complete Time: 12:53 06/07 11:52 Order name: BNP; Complete Time: 12:54 06/07 11:52 Order name: CBC with Diff; Complete Time: 12:53 06/07 11:52 Order name: CPK; Complete Time: 12:54 06/07 11:52 Order name: CT Head Brain wo Cont; Complete Time: 12:54 06/07 11:52 Order name: Hepatic Function; Complete Time: 12:54 06/07 11:52 Order name: Lipase; Complete Time: 12:54 06/07 11:52 Order name: Magnesium; Complete Time: 12:54 06/07 11:52 Order name: Protime (+inr); Complete Time: 13:36 06/07 11:52 Order name: Troponin (emerg Dept Use Only); Complete Time: 12:53 06/07 12:37 Order name: Urine Dipstick--Ancillary (enter results) 2 06/07 12:57 Order name: Urine Culture [facility] 06/07 11:52 Order name: EKG; Complete Time: 11:53 06/07 11:52 Order name: Cardiac monitoring; Complete Time: 11:56 06/07 11:52 Order name: EKG - Nurse/Tech; Complete Time: 12:37 06/07 11:52 Order name: IV Saline Lock; Complete Time: 11:57 06/07 11:52 Order name: Labs collected and sent; Complete Time: 11:57 06/07 11:52 Order name: NPO; Complete Time: 11:57 06/07 11:52 Order name: O2 Per Protocol; Complete Time: 11:57 06/07 11:52 Order name: O2 Sat Monitoring; Complete Time: 11:57 06/07 11:52 Order name: Urine Dipstick-Ancillary (obtain specimen); Complete Time: 12:38 06/07 11:52 Order name: Chest Single View XRAY; Complete Time: 12:53 06/07 11:54 Order name: Cath; Complete Time: 12:37 nj Administered Medications: 12:20 Drug: NS 0.9% 500 ml Route: IV; Rate: bolus; Site: right wrist; jl7 13:00 Follow up: IV Status: Completed infusion jl7 13:39 Drug: Rocephin - (cefTRIAXone) 2 grams Route: IVPB; Infused Over: 4 mins; Site: right jl7 wrist; 13:45 Follow up: Response: No adverse reaction; IV Status: Completed infusion jl7 Point of Care Testing: Blood Glucose: 11:40 Blood Glucose: 182 mg/dL; sv Ranges: Critical Glucose Levels:Adult <50 mg/dl or >400 mg/dl <40 mg/dl or >180 mg/dl Disposition: 06/07/17 13:50 Discharged to Home. Impression: Altered Mental Status, Acute UTI. - Condition is Stable. - Discharge Instructions: Urinary Tract Infection, [id number], Altered Mental Status. - Prescriptions for Augmentin 875- 125 mg Oral Tablet - take 1 tablet by ORAL route every 12 hours for 5 days; 10 tablet. - Medication Reconciliation Form, Thank You Letter, Antibiotic Education, Prescription Opioid Use form. - Follow up: Private Physician; When: 2 - 3 days; Reason: Recheck today's complaints. - Problem is new. - Symptoms have improved. - Notes: please give antibiotics as prescribed. return here immediately for worsening concerns. follow up with his doctors within 48 hours for reassessment Signatures: Dispatcher [employer] Nati Vega RN CATE Trudy Dyer RN RN jl7 Shilo Badillo MD MD nj
--- NOTE | 2017-06-07 13:50 | ER ---
Nurse's Notes [facility] Name: Blu Palumbo Age: 57 yrs Sex: Male : 1960 Arrival Date: 06/07/2017 Time: 11:31 Bed 4 Private MD: Diagnosis: Altered Mental Status;Acute UTI Presentation: 06/07 11:27 Presenting complaint: EMS states: called for AMS since today. Pt lives at home with sv spouse. Pt normally is A \T\ O x4. Pt is A \T\ O x2 at this time. BP 124/74 HR-70 SR 98% RA Temp-98.0. BS-267. Pt is bedbound and contracted on the right side. Transition of care: patient was not received from another setting of care. Onset of symptoms was June 07, 2017. Care prior to arrival: Placed on backboard. Glucose check: 267. 11:27 Method Of Arrival: EMS: [facility] sv 11:27 Acuity: KIMO 2 sv Triage Assessment: 11:41 General: Appears in no apparent distress. comfortable, Behavior is calm, cooperative. sv Pain: Denies pain. EENT: No signs and/or symptoms were reported regarding the EENT system. Neuro: Level of Consciousness is awake, alert, Oriented to person, place. Respiratory: Respiratory effort is even, unlabored, Respiratory pattern is regular, symmetrical. GI: Abdomen is flat, Colostomy site is clean and dry. Ostomy appliance is intact. Derm: Skin is normal. Musculoskeletal:. Historical: - Allergies: 11:37 No Known Allergies; sv - Home Meds: 11:37 loperamide 2 mg Oral tab [Active]; metoprolol tartrate 25 mg Oral tab [Active]; sv Myrbetriq 50 mg oral Tb24 [Active]; amiodarone 200 mg Oral tab [Active]; Eliquis 5 mg oral tab [Active]; atorvastatin 80 mg oral tab [Active]; digoxin 250 mcg Oral tab [Active]; famotidine 20 mg Oral tab [Active]; Synthroid Oral [Active]; Humulin R Sub-Q [Active]; - PMHx: 11:37 CVA; Colon cancer; Diabetes - IDDM; sepsis; sv - PSHx: 11:37 Colostomy; sv - Immunization history:: Adult Immunizations up to date. - Social history:: The patient lives with spouse, Smoking status: Patient/guardian denies using tobacco. - Family history:: not pertinent. - Hospitalizations: : No recent hospitalization is reported. - History obtained from: spouse. Screenin:00 Abuse screen: Denies threats or abuse. Denies injuries from another. Nutritional sv screening: No deficits noted. Tuberculosis screening: No symptoms or risk factors identified. Fall Risk No fall in past 12 months (0 pts). Secondary diagnosis (15 points) impaired mobility, CVA, IV access (20 points). Ambulatory Aid- None/Bed Rest/Nurse Assist (0 pts). Gait- Impaired (20 pts.). Mental Status- Overestimates/Forgets Limitations (15 pts.). Total Spencer Fall Scale indicates High Risk Score (45 or more points). Fall prevention measures have been instituted. Side Rails Up X 2 Placed Close to Nursing Station Frequent Obs/Assessments Occuring Family Present and informed to notify staff if the need to leave the bedside As available patient and family educated on Fall Prevention Program and Strategies. Assessment: 12:00 Reassessment: See triage assessment. sv 13:00 Reassessment: Patient appears in no apparent distress at this time. No changes from sv previously documented assessment. Patient and/or family updated on plan of care and expected duration. Pain level reassessed. 14:07 Reassessment: Patient appears in no apparent distress at this time. No changes from sv previously documented assessment. Patient and/or family updated on plan of care and expected duration. Pain level reassessed. 14:09 Reassessment: Report given to EMS. sv Vital Signs: 11:33 BP 114 / 86; Pulse 76; Resp 20; Temp 98.8(O); Pulse Ox 100% ; sv 12:08 BP 107 / 82; Pulse 79; Resp 20 S; Pulse Ox 100% on R/A; jl7 12:58 BP 116 / 79; Pulse 73; Resp 18 S; Pulse Ox 99% on R/A; jl7 ED Course: 11:31 Patient arrived in ED. sv 11:31 Nati Wyman, RN is Primary Nurse. sv 11:33 Triage completed. sv 11:35 Initial lab(s) drawn, by ED staff. Inserted saline lock: 20 gauge in right wrist, using jl7 aseptic technique. Blood collected. 11:37 Shilo Badillo MD is Attending Physician. wa 11:41 ED physician to see patient. sv 11:41 Patient has correct armband on for positive identification. Placed in gown. Bed in low sv position. Side rails up X2. Adult w/ patient. monitoring engineer on. Pulse ox on. NIBP on. Head of bed elevated. 12:00 Arm band placed on left wrist. sv 12:10 CT Head Brain wo Cont In Process Unspecified. EDMS 12:11 CT completed. Patient tolerated procedure well. Patient moved to CT via stretcher. jg1 Patient moved back from CT. 12:16 X-ray completed. Portable x-ray completed in exam room. Patient tolerated procedure ml well. 12:18 Chest Single View XRAY In Process Unspecified. EDMS 12:38 Urine collected: straight cath specimen, padmini colored, Amount Returned: 100mL. jl7 Straight cath inserted, using sterile technique, 16 Fr. Specimen obtained. Returned padmini urine. Patient tolerated poorly. 12:43 EKG done, by food equipment service technician. reviewed by Shilo Badillo MD. at1 13:47 Urine Culture Sent. sv 14:07 No provider procedures requiring assistance completed. IV discontinued, intact, sv bleeding controlled, No redness/swelling at site. Pressure dressing applied. Administered Medications: 12:20 Drug: NS 0.9% 500 ml Route: IV; Rate: bolus; Site: right wrist; jl7 13:00 Follow up: IV Status: Completed infusion jl7 13:39 Drug: Rocephin - (cefTRIAXone) 2 grams Route: IVPB; Infused Over: 4 mins; Site: right jl7 wrist; 13:45 Follow up: Response: No adverse reaction; IV Status: Completed infusion jl7 Point of Care Testing: Blood Glucose: 11:40 Blood Glucose: 182 mg/dL; sv Ranges: Output: 13:40 Stool: 100 (Loose Stool) ; Total: 0ml. sv Outcome: 13:50 Discharge ordered by . wa 14:08 Discharged to home via ambulance, with family. sv 14:08 Condition: stable 14:08 Discharge instructions given to family, Instructed on discharge instructions, follow up and referral plans. medication usage, Demonstrated understanding of instructions, follow-up care, medications, Prescriptions given X 1. 14:10 Patient left the ED. sv Signatures: Dispatcher [employer] Nati Vega RN RN sv Garcia, Jessica jg1 Lopez, Vivian ml blackburn, Caridad, field service coordinator EKG Tat1 Trudy Dyer RN RN jl7 Shilo Badillo MD MD wa Corrections: (The following items were deleted from the chart) 11:34 11:33 Temp 98.8F Oral; petros morrell
[2017-06-07 14:02] LABS: Urine Blood 2+ (NEG); Urine Glucose NEGATIVE (NEG); Urine Protein 1+ (NEG); Urine Specific Gravity >1.030 (1.005-1.030); Urine pH 5.5 (5.0-7.0)
[2017-06-07 14:15] VITALS: TEMP 98.8
[2017-06-07 14:17] VITALS: BP 116/79; O2SAT 99
--- NOTE | 2017-06-09 22:44 | EKG ---
Test Date: 2017-06-07 Test Time: 12:33:44 Cell Assembly Pinner: AJ MEASUREMENT RESULTS: Intervals: Rate: 70 [place]: 184 QRSD: 108 QT: 378 QTc: 408 [place]: P: 32 NJ: 184 QRS: 7 T: 19 INTERPRETIVE STATEMENTS: Normal sinus rhythm Incomplete right bundle branch block Nonspecific T wave abnormality Abnormal ECG No previous ECG available for comparison Electronically Signed On 06-09-17 22:43:45 CDT by Tano Hardin
== END 2017-06-07 14:10 | disposition home or self-care (01) ==
LOC: ER 11:28
DX: N39.0 Urinary tract infection, site not specified (principal); E11.9 Type 2 diabetes mellitus without complications; Z79.4 Long term (current) use of insulin; Z79.02 Long term (current) use of antithrombotics/antiplatelets; Z85.038 Personal history of other malignant neoplasm of large intestine; Z86.73 Personal history of transient ischemic attack (TIA), and cerebral infarction without residual deficits
CPT/HCPCS: 36415; 51702; 70450; 71045; 80048; 80076; 80307; 81003; 81015; 82550; 82962; 83690; 83735; 83880; 84484; 85025; 85610; 87086; 87088; 93005; 96361; 96374; 99285; J0696

== ENCOUNTER 2017-06-14 14:01 | Emergency (ER) | payer OTHER ==
--- OUTSIDE RECORDS SUMMARY | 2017-06-14 14:05 | XMS REPORT | Clinical Summary ---
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 Rectal cancer ([facility]) 01/21/2017 Transient cerebral ischemia, unspecified type 09/28/2015 Cerebral infarction ([facility]) 12/20/2014 Overview: UPDATED BY ICD10 SNOMED/IMO UPDATES Lumbar radiculitis 12/14/2013 Hypertension Overview: HTN x 15 yrs Diabetes mellitus ([facility]) Overview: IDDM x 19 yrs/ uses insulin [...] 01/23/2017 03/14/2017 Sepsis, due to unspecified organism ([facility]) 03/14/2017 Encounters Date Type Specialty Care Team Description 06/11/2017 Outside Orders Central Scheduling Shaun Juares Paroxysmal atrial MD Yasir fibrillation ([facility]) (Primary Dx);Hypertension, unspecified type;Familial combined hyperlipidemia;Slee p apnea, unspecified type;Uncontrolled diabetes mellitus type 2 without complications, unspecified whether long-term insulin use (HCC);Hypothyroidis m, adult;Lower venous segment thrombosis, unspecified laterality (HCC);Abnormal breath sounds 03/05/2017 Procedure Pass Gastroenterology 03/05/2017 Surgery Gastroenterology [place] UPPER ENDOSCOPY Renzo Duong MD 03/04/2017 Anesthesia Event Gastroenterology Edward Julian MD 02/22/2017 Orders Only General Internal Medicine 02/04/2017 Anesthesia Event Cardiac Intensive Care Vlad Briones MD 02/01/2017 Anesthesia Event Gastroenterology Taniya Beltran CRNA 02/01/2017 Procedure Pass Gastroenterology 02/01/2017 Surgery Gastroenterology Candelario Murphy SIGMOIDOSCOPY [facility] 01/24/2017 Anesthesia Event Willard Lee MD 01/24/2017 Procedure Pass 01/24/2017 Surgery Volodymyr, LAPAROSCOPY,ILEOSTO MARIA FERNANDA Saavedra MD 01/21/2017 [facility] General Internal Clemente Moreno, Acute - Encounter Medicine encephalopathy;[place] 03/14/2017 Danny Sheppard MD hyperglycemia;Acute postoperative [...] 01/10/2017 Orders Only General Internal Medicine 12/05/2016 [facility] Navjot Roy Encounter MD Velma 12/05/2016 Anesthesia Event Shawna Danielle MD 12/05/2016 Procedure Pass 12/05/2016 Surgery Navjot Roy COLONOSCOPY,BIOPSY MD Velma 11/30/2016 Hospital Pre-Admission Testing Encounter after 06/13/2016 Social History Tobacco Use Types Packs/Day Years Used Date Never Smoker Smokeless Tobacco: Never Used Alcohol Use Drinks/Week oz/Week Comments No Sex Assigned at Date Recorded Not on file Last Filed Vital Signs Vital Sign Reading Time Taken Blood Pressure 119/63 03/14/2017 3:55 PM 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 Pulse 80 03/14/2017 3:55 PM 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 Temperature 35.3 C (95.6 F) 03/14/2017 3:55 PM 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 Respiratory Rate 18 03/14/2017 3:55 PM 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 Oxygen Saturation 98% 03/14/2017 3:55 PM 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 Inhaled Oxygen Concentration - - Weight 126.9 kg (279 lb 12.2 oz) 03/07/2017 2:00 AM 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 Height 193 cm (6' 3.98") 01/21/2017 9:35 AM 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 Body Mass Index 34.07 03/07/2017 2:00 AM 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 Plan of Treatment Date Type Specialty Care Team Description 06/17/2017 Hospital Encounter Shaun Juares MD [address] [facility] [address] [place] [address] Procedures Procedure Name Priority Date/Time Associated Diagnosis Comments UPPER ENDOSCOPY 03/05/2017 8:00 AM Malnutrition, 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 unspecified type (HCC) SIGMOIDOSCOPY 02/01/2017 3:00 PM Incontinence of feces, 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 unspecified fecal incontinence type LAPAROSCOPY,ILEOSTOMY 01/24/2017 4:30 PM Anastomotic Leaks 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 PROCEDURE W/ DAVINCI 01/21/2017 8:00 AM Rectal cancer (HCC) 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 ROBOTIC LAPAROSCOPY,LOW 01/21/2017 8:00 AM Rectal cancer (HCC) ANTERIOR RESECTION 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 COLONOSCOPY,SUBMUCOSAL 12/05/2016 1:30 PM Blood in stool INJECTION CDT COLONOSCOPY,BIOPSY 12/05/2016 1:30 PM Blood in stool CDT after 06/13/2016 Results RHYTHM STRIP - SCAN (03/18/2017 1:21 PM)POC-Glucose meter (03/14/2017 8:24 PM) Only the most recent of443 resultswithin the time period is included. Component Value Ref Range POC-Glucose Meter 123 (H)Comment: TESTED AT [address] 70 - 110 mg/[place] [address] Specimen Performing Laboratory Blood [facility] [address] [address] Calcium, Ionized (03/14/2017 2:31 PM)Only the most recent of51 resultswithin the time period is included. Component Value Ref Range Calcium, Ion 1.00 (L) 1.12 - 1.27 mmol/L pH, Blood 7.47 Specimen Performing Laboratory Blood [address] [address] CBC with platelet count + automated diff [...] - 1 % Specimen Performing Laboratory Blood [address] [address] CBC with platelet count + automated diff (03/14/2017 2:31 PM)Only the most recent of51 resultswithin the time period is included. Specimen Performing Laboratory Blood Narrative The following orders were created for panel order CBC with platelet count + automated diff. Procedure Abnormality Status --------- ------ CBC with platelet count ...[[id number]]AbnormalFinal result Please view results for these tests on the individual orders. Phosphorus (03/14/2017 2:31 PM)Only the most recent of52 resultswithin the time period is included. Component Value Ref Range Phosphorus 3.2 2.3 - 4.7 mg/dL Specimen Performing Laboratory Blood [address] [address] Magnesium (03/14/2017 2:31 PM)Only the most recent of53 resultswithin the time period is included. Component Value Ref Range Magnesium 1.5 (L) 1.6 - 2.6 mg/dL Specimen Performing Laboratory [address] [address] Basic Metabolic Panel (03/14/2017 2:31 PM)Only the [...] APPLICABLE FOR DIALYSIS PATIENTS. Specimen Performing Laboratory [address] [address] [place] esoph swallow funct with cine video [...] MD Report Verified Date/Time:03/14/2017 11:29:44 Reading Location: [facility] C013X Ortho Consult Reading Room Procedure Note Interface, External Ris In - 03/14/2017 11:31 AM 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 FINAL REPORT Modified barium swallow Reason for [...] Report Verified Date/Time: 03/14/2017 11:29:44 Reading Location: [facility] C013X Ortho Consult Reading Room Occult blood, stool (03/14/2017 7:02 AM)Only the most recent of10 resultswithin the time period is included. Component Value Ref Range Occult blood Negative Negative Specimen Performing [place] [address] CBC (Hemogram only) (03/10/2017 3:49 AM)Only the [...] 0 /100 WBC Specimen Performing Laboratory Blood [facility] [address] [address] XR abdomen / KUB 1 view (03/07/2017 [...] MD Report Verified Date/Time:03/07/2017 08:38:07 Reading Location: [facility] Reading Room Procedure Note Interface, External Ris In - 03/07/2017 8:40 AM 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 FINAL REPORT EXAM: AP abdominal radiograph HISTORY [...] Report Verified Date/Time: 03/07/2017 08:38:07 Reading Location: [facility] Reading Room SFUSION SERVICE REPORT - SCAN (03/06/2017 5:40 PM)Only the most recent of2 resultswithin the time period is included.IR G-Tube Insertion w/Fluoro (2017 2:05 PM) Specimen Performing Laboratory GE RIS Narrative FINAL REPORT Fluoroscopic guided gastrostomy tube placement. Modality: Fluoroscopy. State Appellate Clerk:Talat Hare MD. Special Programs Director:None. Sedation: Moderate sedation was administered. 1 mg of Versed and75 mcg of fentanyl IV was used for moderate sedation monitored under my direction. Total intra-service time of sedation [id number]. The patient's vital signs were monitored throughout [...] After the tract was dilated, a 14 Italian catheter was placed into the stomach. The [...] MD Report Verified Date/Time:03/08/2017 09:01:42 Reading Location: [place] [id number] Angio Body Reading Room Procedure Note Interface, External Ris In - 03/19/2017 10:32 AM 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 FINAL REPORT Fluoroscopic guided gastrostomy tube placement. Modality: Fluoroscopy. State Appellate Clerk: Talat Hare MD. Special Programs Director: None. Sedation: Moderate sedation was administered. 1 [...] After the tract was dilated, a 14 Italian catheter was placed into the stomach. The [...] Report Verified Date/Time: 03/08/2017 09:01:42 Reading Location: [place] [address] Angio Body Reading Room aPTT (03/06/2017 4:55 AM)Only the most recent of32 resultswithin the time period is included. Component Value Ref Range PTT 48.5 (H) 22.5 - 36.0 seconds Specimen Performing Laboratory Blood [address] [address] Prothrombin time/INR (03/06/2017 4:55 AM)Only the most recent of21 resultswithin the time period is included. Component Value Ref Range Protime 16.6 (H) 11.7 - 14.7 seconds INR 1.4 <=5.9 Specimen Performing Laboratory Blood [address] [address] Narrative RECOMMENDED COUMADIN/WARFARIN INR THERAPY RANGES STANDARD [...] Ab Scrn NEGATIVE Specimen Performing Laboratory Blood [address] [address] XR chest 1 view portable / bedside [...] MD Report Verified Date/Time:03/03/2017 14:20:07 Reading Location: [address] Ortho Consult Reading Room Procedure Note Interface, External Ris In - 03/03/2017 2:22 PM 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 FINAL REPORT CHEST ONE VIEW HISTORY: Nasogastric [...] Report Verified Date/Time: 03/03/2017 14:20:07 Reading Location: [facility] C013X Ortho Consult Reading Room /Free T4 If Indicated (03/02/2017 4:46 AM)Only the most recent of2 resultswithin the time period is included. Component Value Ref Range TSH 0.38 0.35 - 4.94 uIU/mL Specimen Performing Laboratory Blood - Line, Venous [facility] [address] [address] T4, free (03/02/2017 4:46 AM) Component Value Ref Range Free T4 1.17 0.70 - 1.48 ng/dL Specimen Performing Laboratory Blood - Line, Venous [address] [address] Manual Differential (02/28/2017 3:59 AM)Only the most recent of22 resultswithin the time period is included. Specimen Performing Laboratory Blood - Line, Venous [address] [address] TSH (02/28/2017 3:59 AM)Only the most recent of2 resultswithin the time period is included. Component Value Ref Range TSH 0.51 0.35 - 4.94 uIU/mL Specimen Performing Laboratory Blood - Line, [address] [address] PERIPHERAL VASCULAR REPORT - SCAN (02/23/2017 7:20 AM)Only the most recent of2 resultswithin the time period is included.Arterial doppler legs bilateral (02/22 3:50 PM) Component Value Ref Range Ejection Fraction Specimen Performing Laboratory [facility] MK[facility] CPACS Impressions Right Impression [...] + + + + + + !Prox UNLOAD ASSOCIATE ! !147 !36.1! ! !71.5!18.1! ! + + + + + + + + + + !Mid UNLOAD ASSOCIATE ! !113 !34.6! ! !101 !11! ! + + + + + + + + + + !Dist UNLOAD ASSOCIATE ! !155 !36.9! ! !96.6!15.7! ! + + + + + + + + + + !Prox NEAL ! !103 !22.8! ! !58.1!14.1! ! + + + + + + + + + + !Dist NEAL ! !103 !26.7! ! + + + + + + !Dist Peroneal ! + + Narrative [facility] - Lower Extremity Arterial Duplex Demographics Patient NameTERRELL PALUMBO Date of Study 02/22/2017 CAN Age 57 Visit [id number] Gender Male Date of 01[birth year] Number Referring Mor Santillan Room Number [id number] Physician Finishing Supervisor Plastic Sheets Burak HolmanJ. Marcia Serrato MD, CALIXTO Arroyo Procedure Type [...] External Ris In - 02/23/2017 6:20 AM 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 [facility] - Lower Extremity Arterial Duplex Demographics Patient Name TERRELL PALUMBO Date of Study 02/22/2017 CAN Age 57 Visit Number [id number] Gender Male Date of 1960 Number Referring Mor Santillan Room Number [id number] Physician Finishing Supervisor Plastic Sheets Burak Sharma T Physician , CALIXTO Arroyo [...] PT pressure is 151 mmHg with an EMLIIA of 1.34 (within the noncompressible range) and [...] + + + +-------- + + !Prox UNLOAD ASSOCIATE ! !147 !36.1 ! ! !71.5 !18.1 ! ! + + + ------+ + + + +-------- + + !Mid UNLOAD ASSOCIATE ! !113 !34.6 ! ! !101 !11 ! ! + + + ------+ + + + +-------- + + !Dist UNLOAD ASSOCIATE ! !155 !36.9 ! ! !96.6 !15.7 [...] Specimen Performing Laboratory Blood - Arm, Left [facility] [address] [place] [address] Troponin I (02/22/2017 6:52 AM)Only the most recent of4 resultswithin the time period is included. Component Value Ref Range Troponin I <0.01 0.00 - 0.03 ng/mL Specimen Performing Laboratory Blood - Line, Venous [facility] [address] [address] Narrative Troponin I (TnI) levels must be [...] 480 ms QTC Calculation(Bazett) 547 ms P [place]enton 35 degrees R [place] 4 degrees T [place] 35 degrees Normal sinus rhythm Prolonged QT Abnormal ECG When compared with ECG of 08-FEB-2017 08:00, No significant change was found Confirmed by Araclei ORDOÑEZ BASANT ([id number]) on 02/22/2017 8:55:21 AM Procedure Note Interface, External Ris In - 02/22/2017 8:55 AM 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 Ventricular Rate 78 BPM Atrial Rate 78 BPM P-R Interval 174 ms QRS Duration 100 ms Q-T Interval 480 ms QTC Calculation(Bazett) 547 ms P [place] 35 degrees R [place] 4 degrees T [place] 35 degrees Normal sinus rhythm Prolonged QT Abnormal ECG When compared with ECG of 08-FEB-2017 08:00, No significant change was found Confirmed by Araceli ORDOÑEZ BASANT ([id number]) on 02/22/2017 8:55:21 AM Blood gas, [...] Performing Laboratory Blood, Arterial - Line, Arterial [address] [address] Digoxin level (02/21/2017 11:00 AM)Only the most recent of2 resultswithin the time period is included. Component Value Ref Range Digoxin Lvl 0.9 0.8 - 2.0 ng/mL Specimen Performing Laboratory Blood - Line, Venous [address] [address] Blood culture (02/19/2017 12:17 PM)Only the most recent of13 resultswithin the time period is included. Component Value Ref Range Result No growth in 5 days Specimen Performing Laboratory Blood - Arm, Left [address] [address] [address] abdomen/pelvis with IV contrast (02/15/2017 5:02 PM)Only the most recent of3 resultswithin the time period is included. Specimen Performing Laboratory GE RIS Narrative FINAL REPORT ABDOMINAL AND PELVIS [...] MD Report Verified Date/Time:02/15/2017 18:36:50 Reading Location: [facility] C013Y CT Body Reading Room Procedure Note Interface, External Ris In - 02/15/2017 6:39 PM 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 FINAL REPORT ABDOMINAL AND PELVIS CT DATED [...] Report Verified Date/Time: 02/15/2017 18:36:50 Reading Location: [facility] B1 C013Y CT Body Reading Room AWAKE AND DROWSY (02/15/2017 1:55 PM) Specimen Performing Laboratory [employer] RIS Narrative DATE OF EE02-15-2017 DATE OF REPORT: 02-15-2017 ACC: [id number] Start time: 13:17 Stop time: 13:38 ICD-10:G 93.40 CPT Code: 80382 HISTORY: 57 y.o. male s/p robotic surgery for rectal cancer 2 weeks ago. 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 male s/p robotic surgery for rectal cancer 2 weeks ago. 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 and transfer to the ICU MEDICATIONS THAT COULD AFFECT EEG: MIdazolam TECHNICAL SUMMARY: This is a digital video EEG recorded with 32 input channels on a Moneylib system and then reviewed with bipolar and [...] - 2.00 u/ml Specimen Performing Laboratory Blood [address] [address] Narrative Anti-Factor 10-A Level (Heparin Assay for Low Molecular Weight Heparin) Monitoring Guidelines: Blood samples should be obtained 4 hours post subcutaneous injection (time of Peak level) Therapeutic Peak Levels: 0.6-1.0 units/mLtwice daily enoxaparin 1.0-2.0 units/mLonce daily enoxaparin Ref: CHEST 2012;141:h21m-m33a Please draw 5 hours after Lovenox administration. Thank you! INTRAOPERATIVE PATH REPORT - SCAN (02/11/2017 3:11 PM)BCID (02/09/2017 6:06 PM )Only the most recent of3 resultswithin the time period is included. Component Value Ref Range Scan Result Specimen Performing Laboratory Blood [address] [address] Narrative Result comments: Coagulase Negative Staphylococcus Species [...] sample was tested at the [facility] Clinical Microbiology Laboratory using the Showcase Blood Culture ID Panel. This test is FDA cleared for in vitro diagnostic use and has been verified and approved by the [facility] Clinical Microbiologyl[facility]atory for clinical use. Reference Range: Not Detected Urinalysis w/Microscopic (02/08/2017 3:18 AM) Component Value Ref Range Color, UA Yellow Clarity, UA Clear Specific [place], UA 1.016 1.001 - 1.035 pH, UA [...] Malhotra Specimen Performing Laboratory Urine - Urine, [address] [address] Urine culture (02/08/2017 12:35 AM)Only the most recent of3 resultswithin the time period is included. Component Value Ref Range Result No growth Specimen Performing Laboratory Urine - Urine, [address] [address] Sputum Culture + Gram Stain (02/08/2017 12:34 AM)Only the most recent of2 resultswithin the time period is included. Component Value Ref Range Result No growth Gram Stain Result 1+ WBCs Gram Stain Result 10-15 epithelial cells Gram Stain Result 1+ gram positive rods Gram Stain Result <1+ budding yeast Specimen Performing Laboratory Sputum - Suctioned [address] [address] US abdomen limited (02/05/2017 3:36 AM) Specimen [...] MD Report Verified Date/Time:02/05/2017 04:24:48 Reading Location: [facility] C013 CT Body Reading Room Procedure Note Interface, External Ris In - 02/05/2017 4:26 AM 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 FINAL REPORT INDICATION: r/o acute cholecystitis due [...] Report Verified Date/Time: 02/05/2017 04:24:48 Reading Location: [facility] C013Y CT Body Reading Room RECORDING IN COMA/SLEEP ONLY (02/04/2017 11:39 AM) Specimen Performing Laboratory GE RIS Narrative DATE OF EE02-04-2017 DATE OF REPORT: 02-04-2017 ACC: [id number] EE Start time: 11:17 Stop time: 11:38 ICD-10:R56.9 CPT Code: 39525 HISTORY: Encephalopathy, post rectal cancer surgery. MEDICATIONS THAT COULD AFFECT EEG: None TECHNICAL SUMMARY: This is a digital EEG recorded with 32 input channels on a Nihon TheInfoPro system and then reviewed with bipolar and [...] Brandon MD Neurophysiology Fellow PGY5 Shad Jovel [facility] Neurophysiology/Epilepsy Attending Procedure Note Interface, External Ris In - 02/04/2017 1:28 PM 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 DATE OF EE02-04-2017 DATE OF REPORT: 02-04-2017 ACC: [id number] EE Start time: 11:17 Stop time: 11:38 ICD-10: R56.9 CPT Code: 98708 HISTORY: Encephalopathy, post rectal cancer surgery. MEDICATIONS THAT COULD AFFECT EEG: None TECHNICAL SUMMARY: This is a digital EEG recorded with 32 input channels on a [employer]on TheInfoPro system and then reviewed with bipolar and [...] Brandon MD Neurophysiology Fellow PGY5 Shad Jovel [facility] Neurophysiology/Epilepsy Attending Ammonia (02/04/2017 5:19 AM)Only the most recent of2 resultswithin the time period is included. Component Value Ref Range Ammonia 40 18 - 72 mol/L Specimen Performing Laboratory Blood - Line, Arterial [facility] [address] [address] MR brain without IV contrast (02/03/2017 12:15 PM) Specimen Performing Laboratory [employer] RIS Narrative FINAL REPORT MRI brain Comparison: [...] MD Report Verified Date/Time:02/03/2017 13:09:03 Reading Location: [facility] C013V Neuro Reading Room Procedure Note Interface, External Ris In - 02/03/2017 1:11 PM 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 FINAL REPORT MRI brain Comparison: Head CT [...] Report Verified Date/Time: 02/03/2017 13:09:03 Reading Location: [facility] C013V Neuro Reading Room Comprehensive metabolic panel (02/03/2017 [...] DIALYSIS PATIENTS. Specimen Performing [place] [address] CT LIMITED/LOCALIZED FOLLOW-UP (02/02/2017 2:45 PM) Specimen [...] MD Report Verified Date/Time:02/02/2017 15:47:41 Reading Location: [facility] B1 C013Y CT Body Reading Room Procedure Note Interface, External Ris In - 02/02/2017 3:56 PM 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 FINAL REPORT Limited CT of the pelvis [...] Report Verified Date/Time: 02/02/2017 15:47:41 Reading Location: [facility] B1 C013Y CT Body Reading Room Clostridium difficile Toxin PCR (02/02/2017 12:30 PM)Only the most recent of2 resultswithin the time period is included. Component Value Ref Range C.Diff Toxin, PCR Not Detected Not Detected Specimen Performing Laboratory Stool - Colostomy [address] This qualitative real-time polymerase chain reaction assay [...] Color, UA Yellow Clarity, UA Hazy Specific [place], UA 1.022 1.001 - 1.035 pH, UA [...] Specimen Performing Laboratory Urine - Urine, Malhotra [address] [address] Hepatic function panel (01/31/2017 5:03 AM) Component [...] Specimen Performing Laboratory Blood - Line, Arterial [address] [address] [address] abdomen/pelvis without iv contrast (01/31/2017 1:29 AM) Specimen Performing Laboratory [employer] Narrative FINAL REPORT CT scan of the [...] MD Report Verified Date/Time:01/31/2017 02:14:26 Reading Location: [address] Consult Reading Room Procedure Note Interface, External Ris In - 01/31/2017 2:16 AM 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 FINAL REPORT CT scan of the abdomen [...] Report Verified Date/Time: 01/31/2017 02:14:26 Reading Location: [facility] B1 C013X [facility] Consult Reading Room Lactic acid, venous, whole blood (01/30/2017 10:24 AM) Component Value Ref Range Lactate, Venous 1.5 0.5 - 2.2 mmol/L Specimen Performing Laboratory Blood [facility] [address] [address] Narrative Effective 06/29/2015: Units/Reference Range Change New: 0.5-2.2 mmol/LPrevious: 5-20 mg/dL CT brain without IV contrast (01/29/2017 10:25 PM) Specimen Performing Laboratory GE RIS Narrative FINAL REPORT Clinical history : Decreased [...] MD Report Verified Date/Time:01/29/2017 22:34:49 Reading Location: [facility] C013X Ortho Consult Reading Room Procedure Note Interface, External Ris In - 01/29/2017 10:37 PM 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 FINAL REPORT Clinical history : Decreased alertness. [...] Report Verified Date/Time: 01/29/2017 22:34:49 Reading Location: [facility] C013X Ortho Consult Reading Room Triglycerides (01/28/2017 4:58 PM) Component Value Ref Range Triglycerides 91 mg/dL Specimen Performing Laboratory Blood - Line, [place] [address] Narrative TRIGLYCERIDE REFERENCE RANGE Low Risk<150 Borderline Risk 150-199 High Hykb587-637 Very High Risk >=500 PT/aPTT (01/27/2017 1:59 AM) Component Value Ref Range Protime 16.5 (H) 11.7 - 14.7 seconds INR 1.3 <=5.9 PTT 80.0 (H) 22.5 - 36.0 seconds Specimen Performing Laboratory Blood [place] [id number] Narrative RECOMMENDED COUMADIN/WARFARIN INR THERAPY RANGES STANDARD [...] Index 0.2 % Specimen Performing Laboratory Blood [address] [address] Narrative CK-MB Reference Range: <6.7Normal 6.7-10.0Borderline >10.0 Abnormal Venous doppler legs bilateral (01/25/2017 3:55 PM) Component Value Ref Range Ejection Fraction Specimen Performing Laboratory [facility] MK[facility] CPACS Impressions Right Impression 1. There is no [...] - Lower Extremities DVT Study Demographics Patient TERRELL Marcus Date of Study 01/25/2017 CAN Age 57 Visit [id number] Gender Male Date of [birth year] Number [id number] Physician Finishing Supervisor Plastic Sheets Stephanie Cifuentes InterpretingJMarcia Del Rosario MD, CALIXTO Matias Procedure Type of Study: [...] External Ris In - 01/25/2017 5:42 PM 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 PV LAB - Lower Extremities DVT Study Demographics Patient Name TERRELL PALUMBO Date of Study 01/25/2017 CAN Age 57 Visit Number [id number] Gender Male Date of 1960 Number Referring Stephany Barone Room Number 6A07 Physician Finishing Supervisor Plastic Sheets Stephanie Cifuentes Interpreting Jacque Sharma Wilber Physician CALIXTO NICHOLS Procedure Type of Study: Veins: Lower Extremities [...] - 19.4 ug/dL Specimen Performing Laboratory Blood [facility] [address] [address] Vancomycin level, trough (01/25/2017 1:50 PM) Component Value Ref Range Vancomycin Tr 11.3 10.0 - 20.0 ug/mL Specimen Performing Laboratory Blood [facility] [address] [address] Narrative Do not give scheduled vanc dose until level has returned. Hold dose if level is > 20. Thank you! 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 Omkar Looney Interpreting Tawanda Alan MD Physician [...] Study In comparison with the prior exam 8-16 the following changes are noted: LV systolic [...] External Ris In - 01/25/2017 10:49 AM 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 Transthoracic Echocardiography Report (TTE) Demographics Patient Name TERRELL PALUMBO Date of Study 01/25/2017 CAN Gender Male Visit Number [id number] Race Unknown Room Number 6A07 Number Date of 1960 Referring Physician 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 Procedure Abnormality Status --------- ------ Blood gas, arterial[[id number]]AbnormalFinal result Sodium Na-Stat Lab[[id number]] AbnormalFinal result Potassium-Stat Lab[[id number]] NormalFinal result Glucose-Stat Lab[[id number]] AbnormalFinal result HGB/HCT (H&H)-Stat Lab[[id number]] AbnormalFinal result Please view results for these tests on the individual orders. Potassium-Stat Lab (01/24/2017 6:53 PM) Component Value Ref Range Potassium 4.1 3.6 - 5.5 meq/L Specimen Performing Laboratory Blood, Arterial [address] [address] Sodium Na-Stat Lab (01/24/2017 6:53 PM) Component Value Ref Range Sodium 133 (L) 135 - 148 meq/L Specimen Performing Laboratory Blood, Arterial [address] [address] Glucose-Stat Lab (01/24/2017 6:53 PM) Component Value Ref Range Glucose 280 (H) 70 - 110 mg/dL Specimen Performing Laboratory Blood, Arterial [address] [address] HGB/HCT (H&H)-Stat Lab (01/24/2017 6:53 PM) Component Value Ref Range Hemoglobin 18.0 (H) 13.0 - 16.8 g/dL Hematocrit 53.0 (H) 40.0 - 50.0 % Specimen Performing Laboratory Blood, [address] [address] AFB culture + smear (01/24/2017 6:37 PM) Component Value Ref Range Result No acid-fast bacilli isolated in 42 days AFB Smear No acid fast bacilli seen Specimen Performing Laboratory Wound - Abdominal Cavity [address] [address] Anaerobic culture (01/24/2017 6:37 PM) Component Value Ref Range Result Result 2+ Bacteroides fragilis group (A) Specimen Performing Laboratory Wound - Abdominal Cavity [address] [address] Surgically obtained culture + gram stain (01/24/2017 [...] chains Specimen Performing Laboratory Wound - Abdominal [address] [address] Organism Antibiotic Method Susceptibility Escherichia coli Amikacin <=2: Susceptible Comment: This is a corrected result. Previous result was Susceptible on 2016 at 1650 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 Escherichia coli Ampicillin + Sulbactam 16: Resistant [...] Performing Laboratory Body Fluid - Abdominal Cavity [id number] [place] [address] SPIN/CONCENTRATION CHARGE (01/24/2017 6:37 PM) Component Value Ref Range Concentration charged Done Specimen Performing Laboratory Wound - Abdominal Cavity [id number] [place] [address] CT chest with IV contrast (01/24/2017 3:00 PM) Specimen Performing Laboratory Camera Agroalimentos RIS Narrative FINAL REPORT CT of the [...] MD Report Verified Date/Time:01/24/2017 16:23:54 Reading Location: [facility] B1 C013Y CT Body Reading Room Procedure Note Interface, External Ris In - 01/24/2017 4:26 PM 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 FINAL REPORT CT of the Chest, abdomen [...] Report Verified Date/Time: 01/24/2017 16:23:54 Reading Location: [facility] C013Y CT Body Reading Room Hemoglobin A1c (01/23/2017 11:14 AM) Component Value Ref Range Hemoglobin A1C 8.2 (H) 4.3 - 6.1 % Specimen Performing Laboratory Blood [address] [address] Blood gas, venous (01/23/2017 3:25 AM) Component [...] FIO2 100.0 % Specimen Performing Laboratory Blood [address] [address] Tissue Exam (01/21/2017 6:28 PM) Component Value Ref Range Case Report Surgical Pathology Report Case: [id number] Authorizing Provider:Clemente Moreno MDCollected: 01/21/20178 Ordering Location: [facility] Received: 01/21/2017 1839 SERVICES Pathologist: Bennie [...] TUMOR PRESENT Signing Pathologist Direct Phone Line: [phone] SYNOPTIC REPORT COLON AND RECTUM: Resection, Including [...] No regional lymph node metastasis CPT Code(s) 22051 [id number] x 3 CLINICAL HISTORY Rectal cancer GROSS [...] margin. The remainder of the colon is oc[place]oba pink, with normal like folds. The fat is serially sectioned to reveal multiple lymph nodes ranging from 0.2 to 1 cm in greatest dimension. 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 Section code: A1: distal margin; A2: proximal margin; A3: mesenteric margin; A4: section of tumor with deepest invasion; A5: tumor to normal appearing mucosa; A6: radial margin closest to mass; A7: section of tumor with deepest invasion; A8: passenger relations representative section of tumor; A9 - A10: [...] mucosal surface and serosa surface are cordoba-pink. ew INTRAOPERATIVE CONSULTATION INTRAOPERATIVE CONSULTATION DIAGNOSIS, SIGMOID [...] developed and its performance characteristics determined by [facility], Pathology Laboratory. It has not been [...] Tissue - Large Intestine, Colon - Sigmoid; [facility] Tissue - Other [address] [place] [address] ANATOMIC PATHOLOGY SCANNED - SCAN (01/02/2017 4:03 PM)after 06/13/2016
--- OUTSIDE RECORDS SUMMARY | 2017-06-14 14:15 | XMS REPORT ---
:1960 Author Organization [facility] Address [address] [place] [address] Care Team Providers Name Role Phone CLEMENTE [...] (BEAKER) (test 123 mg/dL 70-110 TESTED AT [address] qyou=5323) [place] [id number] POCT-GLUCOSE [id number] 17:15:00 Test Item Value Reference Range Comments POC-GLUCOSE METER (BEAKER) 252 mg/dL 70-110 TESTED AT [address] (test wplw=2177) [place] [id number] POCT-GLUCOSE [id number] 16:27:00 Test Item Value Reference Range Comments POC-GLUCOSE METER (BEAKER) 319 mg/dL 70-110 TESTED AT [address] (test tccf=6587) [place] [address] CBC W/PLT COUNT & AUTO [id number] 15:10:00 Test Item Value Reference Range Comments WHITE BLOOD CELL COUNT (BEAKER) (test psrq=018) 8.3 K/ L 3.5-10.5 RED BLOOD CELL COUNT (BEAKER) (test cwfo=600) 3.50 M/ L 4.63-6.08 HEMOGLOBIN (BEAKER) (test ksbk=534) 9.1 GM/DL 13.7-17.5 HEMATOCRIT (BEAKER) (test movt=502) 30.8 % 40.1-51.0 MEAN CORPUSCULAR VOLUME (BEAKER) (test hkne=092) 88.0 fL 79.0-92.2 MEAN CORPUSCULAR HEMOGLOBIN (BEAKER) (test 26.0 pg 25.7-32.2 cstc=031) MEAN CORPUSCULAR HEMOGLOBIN CONC (BEAKER) (test 29.5 GM/DL 32.3-36.5 oxga=618) RED CELL DISTRIBUTION WIDTH (BEAKER) (test 16.1 % 11.6-14.4 mwvv=566) PLATELET COUNT (BEAKER) (test rgka=671) 571 K/CU MM 150-450 MEAN PLATELET VOLUME (BEAKER) (test jqnn=645) 9.3 fL 9.4-12.4 NUCLEATED RED BLOOD CELLS (BEAKER) (test 0 /100 WBC 0-0 rqfq=949) NEUTROPHILS RELATIVE PERCENT (BEAKER) (test 79 % ynfz=452) LYMPHOCYTES RELATIVE PERCENT (BEAKER) (test 10 % oqzs=157) MONOCYTES RELATIVE PERCENT (BEAKER) (test 9 % oaef=290) EOSINOPHILS RELATIVE PERCENT (BEAKER) (test 1 % sezr=063) BASOPHILS RELATIVE PERCENT (BEAKER) (test 1 % icdt=917) NEUTROPHILS ABSOLUTE COUNT (BEAKER) (test 6.58 K/ L 1.78-5.38 sgvs=834) LYMPHOCYTES ABSOLUTE COUNT (BEAKER) (test 0.82 K/ L 1.32-3.57 fzcu=520) MONOCYTES ABSOLUTE COUNT (BEAKER) (test 0.74 K/ L 0.30-0.82 rxmx=766) EOSINOPHILS ABSOLUTE COUNT (BEAKER) (test 0.09 K/ L 0.04-0.54 avrz=935) BASOPHILS ABSOLUTE COUNT (BEAKER) (test 0.04 K/ L 0.01-0.08 qqva=959) IMMATURE GRANULOCYTES-RELATIVE PERCENT (BEAKER) 1 % 0-1 (test grll=6420) [id number] 15:00:00 Test Item Value Reference Range Comments PHOSPHORUS (BEAKER) (test qkht=414) 3.2 mg/dL 2.3-4.7 [id number] 15:00:00 Test Item Value Reference Range Comments MAGNESIUM (BEAKER) (test fpsc=390) 1.5 mg/dL 1.6-2.6 BASIC METABOLIC [id number] 15:00:00 Test Item Value Reference Range Comments SODIUM (BEAKER) (test 133 meq/L 136-145 vkbt=291) POTASSIUM (BEAKER) (test 4.7 meq/L 3.5-5.1 qwnu=038) CHLORIDE (BEAKER) (test 97 meq/L 98-107 cwnh=869) CO2 (BEAKER) (test 26 meq/L 22-29 zcqt=792) BLOOD UREA NITROGEN 12 mg/dL 7-21 (BEAKER) (test hlbu=878) CREATININE (BEAKER) (test 0.68 mg/dL 0.57-1.25 vixk=060) GLUCOSE RANDOM (BEAKER) 305 mg/dL 70-105 (test qnze=854) CALCIUM (BEAKER) (test 8.9 mg/dL 8.4-10.2 tgeb=987) EGFR (BEAKER) (test 120 mL/min/1.73 sq m ESTIMATED GFR IS NOT xnss=7200) ACCURATE CREATININE CLEARANCE IN PREDICTING GLOMERULAR FILTRATION RATE. ESTIMATED GFR IS NOT APPLICABLE FOR DIALYSIS PATIENTS. CALCIUM, [id number] 14:49:00 Test Item Value Reference Range Comments CALCIUM IONIZED (BEAKER) (test opce=412) 1.00 mmol/L 1.12-1.27 PH, BLOOD (BEAKER) (test nujh=7140) 7.47 POCT-GLUCOSE [id number] 13:28:00 Test Item Value Reference Range Comments POC-GLUCOSE METER (BEAKER) 294 mg/dL 70-110 TESTED AT [facility] [address] (test vlau=5501) [facility] [address] FL, ESOPH, SWALLOW FUNCTION, WITH CINE OR [id number] 11:29:00Reason for exam:->dysphagiaFINAL REPORT Modified barium swallow [...] were obtained. Fluoroscopy time-2.2 minutes. Signed: Parker Berryeport Verified Date/Time: 03/14/2017 11:29:44 Reading Location: [facility] C013X Ortho Consult Reading Room OCCULT BLOOD, [id number] 09:21:00 Test Item Value Reference Range Comments FECAL OCCULT BLOOD (BEAKER) (test sjfw=209) Negative Negative POCT-GLUCOSE [id number] 04:44:00 Test Item Value Reference Range Comments POC-GLUCOSE METER (BEAKER) 157 mg/dL 70-110 TESTED AT [address] (test cbxo=3434) [place] [id number] POCT-GLUCOSE [id number] 23:28:00 Test Item Value Reference Range Comments POC-GLUCOSE METER (BEAKER) 132 mg/dL 70-110 TESTED AT [address] (test hjro=8067) [place] [id number] POCT-GLUCOSE [id number] 16:20:00 Test Item Value Reference Range Comments POC-GLUCOSE METER (BEAKER) 223 mg/dL 70-110 TESTED AT [address] (test cbfk=5226) [facility] [address] POCT-GLUCOSE [id number] 13:13:00 Test Item Value Reference Range Comments POC-GLUCOSE METER (BEAKER) 196 mg/dL 70-110 TESTED AT [address] (test mhlx=5869) [facility] [address] POCT-GLUCOSE [id number] 10:08:00 Test Item Value Reference Range Comments POC-GLUCOSE METER (BEAKER) 195 mg/dL 70-110 TESTED AT [address] (test wczn=3310) [facility] [address] CALCIUM, [id number] 08:11:00 Test Item Value Reference Range Comments CALCIUM IONIZED (BEAKER) (test miis=254) 0.91 mmol/L 1.12-1.27 PH, BLOOD (BEAKER) (test inti=6169) 7.48 [id number] 05:53:00 Test Item Value Reference Range Comments PHOSPHORUS (BEAKER) (test rasg=502) 2.9 mg/dL 2.3-4.7 [id number] 05:53:00 Test Item Value Reference Range Comments MAGNESIUM (BEAKER) (test cuaa=457) 1.4 mg/dL 1.6-2.6 BASIC METABOLIC [id number] 05:53:00 Test Item Value Reference Range Comments SODIUM (BEAKER) (test 133 meq/L 136-145 kzlf=607) POTASSIUM (BEAKER) (test 4.5 meq/L 3.5-5.1 itnb=097) CHLORIDE (BEAKER) (test 99 meq/L 98-107 ohvz=074) CO2 (BEAKER) (test 26 meq/L 22-29 hxqy=588) BLOOD UREA NITROGEN 12 mg/dL 7-21 (BEAKER) (test awvk=620) CREATININE (BEAKER) (test 0.56 mg/dL 0.57-1.25 okky=463) GLUCOSE RANDOM (BEAKER) 142 mg/dL 70-105 (test waie=311) CALCIUM (BEAKER) (test 8.4 mg/dL 8.4-10.2 ytbi=409) EGFR (BEAKER) (test 150 mL/min/1.73 sq m ESTIMATED GFR IS NOT skqs=6024) ACCURATE CREATININE CLEARANCE IN PREDICTING GLOMERULAR FILTRATION RATE. ESTIMATED GFR IS NOT APPLICABLE FOR DIALYSIS PATIENTS. POCT-GLUCOSE [id number] 05:34:00 Test Item Value Reference Range Comments POC-GLUCOSE METER (BEAKER) 142 mg/dL 70-110 TESTED AT [address] (test lhig=5368) [facility] [address] CBC W/PLT COUNT & AUTO [id number] 05:26:00 Test Item Value Reference Range Comments WHITE BLOOD CELL COUNT (BEAKER) (test cadz=140) 7.7 K/ L 3.5-10.5 RED BLOOD CELL COUNT (BEAKER) (test qkoi=487) 3.27 M/ L 4.63-6.08 HEMOGLOBIN (BEAKER) (test qsso=472) 8.7 GM/DL 13.7-17.5 HEMATOCRIT (BEAKER) (test fegb=681) 28.6 % 40.1-51.0 MEAN CORPUSCULAR VOLUME (BEAKER) (test oorn=170) 87.5 fL 79.0-92.2 MEAN CORPUSCULAR HEMOGLOBIN (BEAKER) (test 26.6 pg 25.7-32.2 nepu=610) MEAN CORPUSCULAR HEMOGLOBIN CONC (BEAKER) (test 30.4 GM/DL 32.3-36.5 mnzk=441) RED CELL DISTRIBUTION WIDTH (BEAKER) (test 15.9 % 11.6-14.4 oxhz=252) PLATELET COUNT (BEAKER) (test oypj=344) 478 K/CU MM 150-450 MEAN PLATELET VOLUME (BEAKER) (test hkls=382) 9.2 fL 9.4-12.4 NUCLEATED RED BLOOD CELLS (BEAKER) (test 0 /100 WBC 0-0 iizp=109) NEUTROPHILS RELATIVE PERCENT (BEAKER) (test 72 % dicr=955) LYMPHOCYTES RELATIVE PERCENT (BEAKER) (test 12 % yjeb=050) MONOCYTES RELATIVE PERCENT (BEAKER) (test 10 % wgou=764) EOSINOPHILS RELATIVE PERCENT (BEAKER) (test 4 % wchx=252) BASOPHILS RELATIVE PERCENT (BEAKER) (test 1 % naap=842) NEUTROPHILS ABSOLUTE COUNT (BEAKER) (test 5.56 K/ L 1.78-5.38 mfao=071) LYMPHOCYTES ABSOLUTE COUNT (BEAKER) (test 0.91 K/ L 1.32-3.57 fjay=391) MONOCYTES ABSOLUTE COUNT (BEAKER) (test 0.80 K/ L 0.30-0.82 foaa=731) EOSINOPHILS ABSOLUTE COUNT (BEAKER) (test 0.31 K/ L 0.04-0.54 vblu=294) BASOPHILS ABSOLUTE COUNT (BEAKER) (test 0.05 K/ L 0.01-0.08 iulk=967) IMMATURE GRANULOCYTES-RELATIVE PERCENT (BEAKER) 1 % 0-1 (test mwwc=5132) POCT-GLUCOSE [id number] 23:09:00 Test Item Value Reference Range Comments POC-GLUCOSE METER (BEAKER) 183 mg/dL 70-110 TESTED AT [address] (test ndux=1388) [facility] [address] POCT-GLUCOSE [id number] 22:58:00 Test Item Value Reference Range Comments POC-GLUCOSE METER (BEAKER) 188 mg/dL 70-110 TESTED AT [address] (test rpsj=0352) [facility] [address] POCT-GLUCOSE [id number] 16:04:00 Test Item Value Reference Range Comments POC-GLUCOSE METER (BEAKER) 183 mg/dL 70-110 TESTED AT [facility] [address] (test ueog=5316) [facility] [address] AFB CULTURE + [id number] 12:29:00 Test Item Value Reference Range Comments CULTURE (BEAKER) (test No acid-fast bacilli isolated zpvo=7320) in 42 days AFB SMEAR (BEAKER) (test No acid fast bacilli seen ivrv=388) POCT-GLUCOSE [id number] 09:56:00 Test Item Value Reference Range Comments POC-GLUCOSE METER (BEAKER) 178 mg/dL 70-110 TESTED AT [facility] [address] (test kkec=6037) [facility] [address] [id number] 07:53:00 Test Item Value Reference Range Comments PHOSPHORUS (BEAKER) (test hlcf=032) 2.5 mg/dL 2.3-4.7 [id number] 07:53:00 Test Item Value Reference Range Comments MAGNESIUM (BEAKER) (test srab=524) 1.6 mg/dL 1.6-2.6 BASIC METABOLIC [id number] 07:53:00 Test Item Value Reference Range Comments SODIUM (BEAKER) (test 134 meq/L 136-145 eskh=489) POTASSIUM (BEAKER) (test 4.4 meq/L 3.5-5.1 xxdv=408) CHLORIDE (BEAKER) (test 100 meq/L 98-107 tech=238) CO2 (BEAKER) (test 25 meq/L 22-29 wctj=895) BLOOD UREA NITROGEN 12 mg/dL 7-21 (BEAKER) (test ssen=642) CREATININE (BEAKER) (test 0.62 mg/dL 0.57-1.25 xtyx=701) GLUCOSE RANDOM (BEAKER) 201 mg/dL 70-105 (test arek=067) CALCIUM (BEAKER) (test 8.6 mg/dL 8.4-10.2 snsp=340) EGFR (BEAKER) (test 133 mL/min/1.73 sq m ESTIMATED GFR IS NOT rxta=7755) ACCURATE CREATININE CLEARANCE IN PREDICTING GLOMERULAR FILTRATION RATE. ESTIMATED GFR IS NOT APPLICABLE FOR DIALYSIS PATIENTS. CALCIUM, [id number] 07:53:00 Test Item Value Reference Range Comments CALCIUM IONIZED (BEAKER) (test sxde=188) 0.94 mmol/L 1.12-1.27 PH, BLOOD (BEAKER) (test ztli=1213) 7.44 CBC W/PLT COUNT & AUTO [id number] 06:43:00 Test Item Value Reference Range Comments WHITE BLOOD CELL COUNT (BEAKER) (test tfjp=023) 6.6 K/ L 3.5-10.5 RED BLOOD CELL COUNT (BEAKER) (test ybmr=922) 3.61 M/ L 4.63-6.08 HEMOGLOBIN (BEAKER) (test kudq=130) 9.5 GM/DL 13.7-17.5 HEMATOCRIT (BEAKER) (test hdxx=384) 32.0 % 40.1-51.0 MEAN CORPUSCULAR VOLUME (BEAKER) (test rwjp=829) 88.6 fL 79.0-92.2 MEAN CORPUSCULAR HEMOGLOBIN (BEAKER) (test 26.3 pg 25.7-32.2 irxi=521) MEAN CORPUSCULAR HEMOGLOBIN CONC (BEAKER) (test 29.7 GM/DL 32.3-36.5 iyji=592) RED CELL DISTRIBUTION WIDTH (BEAKER) (test 16.1 % 11.6-14.4 jwre=754) PLATELET COUNT (BEAKER) (test oymn=166) 467 K/CU MM 150-450 MEAN PLATELET VOLUME (BEAKER) (test iszi=828) 9.3 fL 9.4-12.4 NUCLEATED RED BLOOD CELLS (BEAKER) (test 0 /100 WBC 0-0 jmdf=048) NEUTROPHILS RELATIVE PERCENT (BEAKER) (test 75 % wnfm=926) LYMPHOCYTES RELATIVE PERCENT (BEAKER) (test 11 % gges=402) MONOCYTES RELATIVE PERCENT (BEAKER) (test 9 % owto=261) EOSINOPHILS RELATIVE PERCENT (BEAKER) (test 3 % oilg=336) BASOPHILS RELATIVE PERCENT (BEAKER) (test 1 % dvbf=535) NEUTROPHILS ABSOLUTE COUNT (BEAKER) (test 4.97 K/ L 1.78-5.38 sdkc=779) LYMPHOCYTES ABSOLUTE COUNT (BEAKER) (test 0.70 K/ L 1.32-3.57 vkcm=562) MONOCYTES ABSOLUTE COUNT (BEAKER) (test 0.62 K/ L 0.30-0.82 nrqb=681) EOSINOPHILS ABSOLUTE COUNT (BEAKER) (test 0.22 K/ L 0.04-0.54 kfgz=931) BASOPHILS ABSOLUTE COUNT (BEAKER) (test 0.03 K/ L 0.01-0.08 jori=129) IMMATURE GRANULOCYTES-RELATIVE PERCENT (BEAKER) 1 % 0-1 (test skgk=1946) POCT-GLUCOSE [id number] 03:44:00 Test Item Value Reference Range Comments POC-GLUCOSE METER (BEAKER) 260 mg/dL 70-110 TESTED AT [address] (test ywlr=3977) [facility] [address] POCT-GLUCOSE [id number] 23:14:00 Test Item Value Reference Range Comments POC-GLUCOSE METER (BEAKER) 174 mg/dL 70-110 TESTED AT [address] (test nfgh=0421) [facility] [address] POCT-GLUCOSE [id number] 16:57:00 Test Item Value Reference Range Comments POC-GLUCOSE METER (BEAKER) 221 mg/dL 70-110 TESTED AT [address] (test arcw=8854) [facility] [address] POCT-GLUCOSE [id number] 09:47:00 Test Item Value Reference Range Comments POC-GLUCOSE METER (BEAKER) 210 mg/dL 70-110 TESTED AT [address] (test ljwq=1926) [facility] [address] [id number] 05:38:00 Test Item Value Reference Range Comments PHOSPHORUS (BEAKER) (test qfaa=880) 2.4 mg/dL 2.3-4.7 [id number] 05:38:00 Test Item Value Reference Range Comments MAGNESIUM (BEAKER) (test yktl=152) 1.6 mg/dL 1.6-2.6 BASIC METABOLIC [id number] 05:38:00 Test Item Value Reference Range Comments SODIUM (BEAKER) (test 135 meq/L 136-145 xqof=762) POTASSIUM (BEAKER) (test 4.5 meq/L 3.5-5.1 gyrs=329) CHLORIDE (BEAKER) (test 100 meq/L 98-107 faid=511) CO2 (BEAKER) (test 25 meq/L 22-29 uksq=428) BLOOD UREA NITROGEN 12 mg/dL 7-21 (BEAKER) (test kigz=444) CREATININE (BEAKER) (test 0.61 mg/dL 0.57-1.25 mszb=679) GLUCOSE RANDOM (BEAKER) 208 mg/dL 70-105 (test ngjy=719) CALCIUM (BEAKER) (test 8.5 mg/dL 8.4-10.2 ywtf=321) EGFR (BEAKER) (test 136 mL/min/1.73 sq m ESTIMATED GFR IS NOT yaoo=5253) ACCURATE CREATININE CLEARANCE IN PREDICTING GLOMERULAR FILTRATION RATE. ESTIMATED GFR IS NOT APPLICABLE FOR DIALYSIS PATIENTS. CALCIUM, [id number] 05:30:00 Test Item Value Reference Range Comments CALCIUM IONIZED (BEAKER) (test ktqk=667) 0.99 mmol/L 1.12-1.27 PH, BLOOD (BEAKER) (test dkub=0423) 7.46 CBC W/PLT COUNT & AUTO [id number] 05:08:00 Test Item Value Reference Range Comments WHITE BLOOD CELL COUNT (BEAKER) (test ffaw=928) 6.8 K/ L 3.5-10.5 RED BLOOD CELL COUNT (BEAKER) (test grzs=954) 3.62 M/ L 4.63-6.08 HEMOGLOBIN (BEAKER) (test fngn=699) 9.3 GM/DL 13.7-17.5 HEMATOCRIT (BEAKER) (test gscd=064) 31.9 % 40.1-51.0 MEAN CORPUSCULAR VOLUME (BEAKER) (test kmxd=964) 88.1 fL 79.0-92.2 MEAN CORPUSCULAR HEMOGLOBIN (BEAKER) (test 25.7 pg 25.7-32.2 tinr=809) MEAN CORPUSCULAR HEMOGLOBIN CONC (BEAKER) (test 29.2 GM/DL 32.3-36.5 ayhd=392) RED CELL DISTRIBUTION WIDTH (BEAKER) (test 16.0 % 11.6-14.4 ckmb=992) PLATELET COUNT (BEAKER) (test hupm=703) 487 K/CU MM 150-450 MEAN PLATELET VOLUME (BEAKER) (test xhbi=440) 9.6 fL 9.4-12.4 NUCLEATED RED BLOOD CELLS (BEAKER) (test 0 /100 WBC 0-0 qplq=365) NEUTROPHILS RELATIVE PERCENT (BEAKER) (test 72 % nuvw=805) LYMPHOCYTES RELATIVE PERCENT (BEAKER) (test 13 % awjq=744) MONOCYTES RELATIVE PERCENT (BEAKER) (test 11 % jnrx=388) EOSINOPHILS RELATIVE PERCENT (BEAKER) (test 3 % uaph=799) BASOPHILS RELATIVE PERCENT (BEAKER) (test 1 % smaq=261) NEUTROPHILS ABSOLUTE COUNT (BEAKER) (test 4.91 K/ L 1.78-5.38 mbex=310) LYMPHOCYTES ABSOLUTE COUNT (BEAKER) (test 0.90 K/ L 1.32-3.57 ttqr=266) MONOCYTES ABSOLUTE COUNT (BEAKER) (test 0.75 K/ L 0.30-0.82 grfb=372) EOSINOPHILS ABSOLUTE COUNT (BEAKER) (test 0.18 K/ L 0.04-0.54 cljq=522) BASOPHILS ABSOLUTE COUNT (BEAKER) (test 0.05 K/ L 0.01-0.08 jskc=102) IMMATURE GRANULOCYTES-RELATIVE PERCENT (BEAKER) 1 % 0-1 (test guew=2532) POCT-GLUCOSE [id number] 04:15:00 Test Item Value Reference Range Comments POC-GLUCOSE METER (BEAKER) 231 mg/dL 70-110 TESTED AT [address] (test cjii=5884) [place] [address] OCCULT BLOOD, [id number] 00:24:00 Test Item Value Reference Range Comments FECAL OCCULT BLOOD (BEAKER) (test eqwl=410) Negative Negative POCT-GLUCOSE [id number] 22:51:00 Test Item Value Reference Range Comments POC-GLUCOSE METER (BEAKER) 225 mg/dL 70-110 TESTED AT [address] (test gqpd=2588) [place] [address] POCT-GLUCOSE [id number] 16:35:00 Test Item Value Reference Range Comments POC-GLUCOSE METER (BEAKER) 226 mg/dL 70-110 TESTED AT [address] (test aiby=6599) [place] [address] POCT-GLUCOSE [id number] 10:08:00 Test Item Value Reference Range Comments POC-GLUCOSE METER (BEAKER) 200 mg/dL 70-110 TESTED AT [address] (test vfbm=2315) [place] [address] CBC W/PLT COUNT & AUTO [id number] 06:49:00 Test Item Value Reference Range Comments WHITE BLOOD CELL COUNT (BEAKER) (test fqqu=266) 6.4 K/ L 3.5-10.5 RED BLOOD CELL COUNT (BEAKER) (test atpw=617) 4.12 M/ L 4.63-6.08 HEMOGLOBIN (BEAKER) (test txby=974) 10.9 GM/DL 13.7-17.5 HEMATOCRIT (BEAKER) (test vqnf=872) 36.9 % 40.1-51.0 MEAN CORPUSCULAR VOLUME (BEAKER) (test vdtr=315) 89.6 fL 79.0-92.2 MEAN CORPUSCULAR HEMOGLOBIN (BEAKER) (test 26.5 pg 25.7-32.2 igtm=667) MEAN CORPUSCULAR HEMOGLOBIN CONC (BEAKER) (test 29.5 GM/DL 32.3-36.5 iold=434) RED CELL DISTRIBUTION WIDTH (BEAKER) (test 16.0 % 11.6-14.4 przy=104) PLATELET COUNT (BEAKER) (test tgfq=868) 512 K/CU MM 150-450 MEAN PLATELET VOLUME (BEAKER) (test oqam=173) 9.7 fL 9.4-12.4 NUCLEATED RED BLOOD CELLS (BEAKER) (test 0 /100 WBC 0-0 yqag=513) NEUTROPHILS RELATIVE PERCENT (BEAKER) (test 70 % qfjc=191) LYMPHOCYTES RELATIVE PERCENT (BEAKER) (test 16 % esxm=876) MONOCYTES RELATIVE PERCENT (BEAKER) (test 10 % wgaq=237) EOSINOPHILS RELATIVE PERCENT (BEAKER) (test 3 % niyi=223) BASOPHILS RELATIVE PERCENT (BEAKER) (test 1 % swun=355) NEUTROPHILS ABSOLUTE COUNT (BEAKER) (test 4.47 K/ L 1.78-5.38 ilii=006) LYMPHOCYTES ABSOLUTE COUNT (BEAKER) (test 1.01 K/ L 1.32-3.57 dcmi=782) MONOCYTES ABSOLUTE COUNT (BEAKER) (test 0.62 K/ L 0.30-0.82 tvgn=956) EOSINOPHILS ABSOLUTE COUNT (BEAKER) (test 0.17 K/ L 0.04-0.54 iduq=884) BASOPHILS ABSOLUTE COUNT (BEAKER) (test 0.03 K/ L 0.01-0.08 hnjj=971) IMMATURE GRANULOCYTES-RELATIVE PERCENT (BEAKER) 1 % 0-1 (test qcha=4271) CBC (HEMOGRAM ONLY)2017-03-10 06:36:00 Test Item Value Reference Range Comments WHITE BLOOD CELL COUNT (BEAKER) (test phxa=630) 6.4 K/ L 3.5-10.5 RED BLOOD CELL COUNT (BEAKER) (test prju=385) 4.12 M/ L 4.63-6.08 HEMOGLOBIN (BEAKER) (test mrsd=241) 10.9 GM/DL 13.7-17.5 HEMATOCRIT (BEAKER) (test mheq=001) 36.9 % 40.1-51.0 MEAN CORPUSCULAR VOLUME (BEAKER) (test bumt=406) 89.6 fL 79.0-92.2 MEAN CORPUSCULAR HEMOGLOBIN (BEAKER) (test 26.5 pg 25.7-32.2 frxs=319) MEAN CORPUSCULAR HEMOGLOBIN CONC (BEAKER) (test 29.5 GM/DL 32.3-36.5 lenb=993) RED CELL DISTRIBUTION WIDTH (BEAKER) (test 16.0 % 11.6-14.4 almu=807) PLATELET COUNT (BEAKER) (test vcvu=520) 512 K/CU MM 150-450 MEAN PLATELET VOLUME (BEAKER) (test yvnf=687) 9.7 fL 9.4-12.4 NUCLEATED RED BLOOD CELLS (BEAKER) (test 0 /100 WBC 0-0 fchd=188) CALCIUM, [id number] 05:58:00 Test Item Value Reference Range Comments CALCIUM IONIZED (BEAKER) (test sjrq=068) 1.09 mmol/L 1.12-1.27 PH, BLOOD (BEAKER) (test fucl=1224) 7.36 [id number] 05:30:00 Test Item Value Reference Range Comments PHOSPHORUS (BEAKER) (test qthn=751) 2.2 mg/dL 2.3-4.7 [id number] 05:30:00 Test Item Value Reference Range Comments MAGNESIUM (BEAKER) (test dudf=490) 1.6 mg/dL 1.6-2.6 BASIC METABOLIC [id number] 05:30:00 Test Item Value Reference Range Comments SODIUM (BEAKER) (test 137 meq/L 136-145 hnmi=610) POTASSIUM (BEAKER) (test 4.5 meq/L 3.5-5.1 hwil=221) CHLORIDE (BEAKER) (test 100 meq/L 98-107 dmfa=708) CO2 (BEAKER) (test 27 meq/L 22-29 lkaz=736) BLOOD UREA NITROGEN 11 mg/dL 7-21 (BEAKER) (test hvpr=542) CREATININE (BEAKER) (test 0.59 mg/dL 0.57-1.25 pycb=353) GLUCOSE RANDOM (BEAKER) 110 mg/dL 70-105 (test qxmi=216) CALCIUM (BEAKER) (test 9.2 mg/dL 8.4-10.2 zkoe=149) EGFR (BEAKER) (test 141 mL/min/1.73 sq m ESTIMATED GFR IS NOT fnbw=4949) ACCURATE CREATININE CLEARANCE IN PREDICTING GLOMERULAR FILTRATION RATE. ESTIMATED GFR IS NOT APPLICABLE FOR DIALYSIS PATIENTS. POCT-GLUCOSE [id number] 03:44:00 Test Item Value Reference Range Comments POC-GLUCOSE METER (BEAKER) 138 mg/dL 70-110 TESTED AT [address] (test nkks=0791) [facility] [address] POCT-GLUCOSE [id number] 22:22:00 Test Item Value Reference Range Comments POC-GLUCOSE METER (BEAKER) 172 mg/dL 70-110 TESTED AT [address] (test jcfb=8730) [facility] [address] POCT-GLUCOSE [id number] 16:05:00 Test Item Value Reference Range Comments POC-GLUCOSE METER (BEAKER) 216 mg/dL 70-110 TESTED AT [address] (test gsja=8852) [facility] [address] POCT-GLUCOSE [id number] 10:00:00 Test Item Value Reference Range Comments POC-GLUCOSE METER (BEAKER) 224 mg/dL 70-110 TESTED AT [address] (test cpbv=4174) [facility] [address] POCT-GLUCOSE [id number] 05:16:00 Test Item Value Reference Range Comments POC-GLUCOSE METER (BEAKER) 164 mg/dL 70-110 TESTED AT [address] (test ybrx=1813) [facility] [address] POCT-GLUCOSE [id number] 22:29:00 Test Item Value Reference Range Comments POC-GLUCOSE METER (BEAKER) 165 mg/dL 70-110 TESTED AT [address] (test idfb=4746) [facility] [address] POCT-GLUCOSE [id number] 16:29:00 Test Item Value Reference Range Comments POC-GLUCOSE METER (BEAKER) 219 mg/dL 70-110 TESTED AT [address] (test tdhb=3526) [facility] [address] POCT-GLUCOSE [id number] 10:04:00 Test Item Value Reference Range Comments POC-GLUCOSE METER (BEAKER) 190 mg/dL 70-110 TESTED AT [address] (test vfxx=6940) [facility] [address] ANG, INSERTION G TUBE, W/ [id number] 09:01:00Reason for exam:->for PEG placementFINAL REPORT Fluoroscopic guided gastrostomy tube placement. Modality: Fluoroscopy. Biology Laboratory Assistant: Talat Hare MD. Seismographer: None. Sedation: Moderate sedation was administered. 1 [...] After the tract was dilated, a 14 [place] catheter was placed into the stomach. The [...] Verified Date/Time: 03/08/2017 09:01:42 Reading Location : [place] [address] Angio Body Reading Room CBC W/PLT COUNT & AUTO [id number] 08:51:00 Test Item Value Reference Range Comments WHITE BLOOD CELL COUNT (BEAKER) (test hpqk=432) 6.9 K/ L 3.5-10.5 RED BLOOD CELL COUNT (BEAKER) (test yzob=338) 3.46 M/ L 4.63-6.08 HEMOGLOBIN (BEAKER) (test ylel=807) 9.2 GM/DL 13.7-17.5 HEMATOCRIT (BEAKER) (test zqjq=892) 30.8 % 40.1-51.0 MEAN CORPUSCULAR VOLUME (BEAKER) (test zrki=964) 89.0 fL 79.0-92.2 MEAN CORPUSCULAR HEMOGLOBIN (BEAKER) (test 26.6 pg 25.7-32.2 qxlj=238) MEAN CORPUSCULAR HEMOGLOBIN CONC (BEAKER) (test 29.9 GM/DL 32.3-36.5 drnw=064) RED CELL DISTRIBUTION WIDTH (BEAKER) (test 15.9 % 11.6-14.4 yzyf=691) PLATELET COUNT (BEAKER) (test cagt=177) 425 K/CU MM 150-450 MEAN PLATELET VOLUME (BEAKER) (test ddzq=273) 9.8 fL 9.4-12.4 NUCLEATED RED BLOOD CELLS (BEAKER) (test 0 /100 WBC 0-0 udev=153) NEUTROPHILS RELATIVE PERCENT (BEAKER) (test 79 % jnwy=171) LYMPHOCYTES RELATIVE PERCENT (BEAKER) (test 9 % ogrb=874) MONOCYTES RELATIVE PERCENT (BEAKER) (test 10 % ghvd=374) EOSINOPHILS RELATIVE PERCENT (BEAKER) (test 2 % gczm=682) BASOPHILS RELATIVE PERCENT (BEAKER) (test 0 % aytd=331) NEUTROPHILS ABSOLUTE COUNT (BEAKER) (test 5.42 K/ L 1.78-5.38 bnna=846) LYMPHOCYTES ABSOLUTE COUNT (BEAKER) (test 0.59 K/ L 1.32-3.57 oiqj=222) MONOCYTES ABSOLUTE COUNT (BEAKER) (test 0.68 K/ L 0.30-0.82 arpp=100) EOSINOPHILS ABSOLUTE COUNT (BEAKER) (test 0.10 K/ L 0.04-0.54 rjev=981) BASOPHILS ABSOLUTE COUNT (BEAKER) (test 0.02 K/ L 0.01-0.08 hwpq=929) IMMATURE GRANULOCYTES-RELATIVE PERCENT (BEAKER) 1 % 0-1 (test vibg=4742) CALCIUM, [id number] 07:35:00 Test Item Value Reference Range Comments CALCIUM IONIZED (BEAKER) (test ylog=196) 1.08 mmol/L 1.12-1.27 PH, BLOOD (BEAKER) (test nthe=5876) 7.42 [id number] 07:24:00 Test Item Value Reference Range Comments MAGNESIUM (BEAKER) (test 1.5 mg/dL 1.6-2.6 Specimen slightly hemolyzed vuua=729) [id number] 07:24:00 Test Item Value Reference Range Comments PHOSPHORUS (BEAKER) (test 2.3 mg/dL 2.3-4.7 Specimen slightly hemolyzed dqsb=426) BASIC METABOLIC [id number] 07:24:00 Test Item Value Reference Range Comments SODIUM (BEAKER) (test 135 meq/L 136-145 cuyi=152) POTASSIUM (BEAKER) (test 4.4 meq/L 3.5-5.1 Specimen slightly npyz=424) hemolyzed CHLORIDE (BEAKER) (test 100 meq/L 98-107 cufk=236) CO2 (BEAKER) (test 26 meq/L 22-29 qegb=279) BLOOD UREA NITROGEN 8 mg/dL 7-21 (BEAKER) (test wdim=155) CREATININE (BEAKER) (test 0.58 mg/dL 0.57-1.25 Specimen slightly hpfy=270) hemolyzed GLUCOSE RANDOM (BEAKER) 169 mg/dL 70-105 (test kihw=424) CALCIUM (BEAKER) (test 8.7 mg/dL 8.4-10.2 ojhn=241) EGFR (BEAKER) (test 144 mL/min/1.73 sq m ESTIMATED GFR IS NOT gmit=7295) ACCURATE CREATININE CLEARANCE IN PREDICTING GLOMERULAR FILTRATION RATE. ESTIMATED GFR IS NOT APPLICABLE FOR DIALYSIS PATIENTS. POCT-GLUCOSE [id number] 04:55:00 Test Item Value Reference Range Comments POC-GLUCOSE METER (BEAKER) 136 mg/dL 70-110 TESTED AT [address] (test wkph=6577) [place] [id number] POCT-GLUCOSE [id number] 22:18:00 Test Item Value Reference Range Comments POC-GLUCOSE METER (BEAKER) 132 mg/dL 70-110 TESTED AT [address] (test ofoc=8372) [place] [id number] POCT-GLUCOSE [id number] 17:05:00 Test Item Value Reference Range Comments POC-GLUCOSE METER (BEAKER) 175 mg/dL 70-110 TESTED AT [address] (test bdax=2788) [place] [id number] OCCULT BLOOD, [id number] 13:55:00 Test Item Value Reference Range Comments FECAL OCCULT BLOOD (BEAKER) (test jrzq=515) Negative Negative POCT-GLUCOSE [id number] 10:38:00 Test Item Value Reference Range Comments POC-GLUCOSE METER (BEAKER) 202 mg/dL 70-110 TESTED AT [address] (test mxvx=3005) [place] [address] RAD, ABDOMEN/KUB, 1 VIEW [id number] 08:38:00Reason for exam:->NG tube placement verification.Should this [...] the spine are present. Signed: Saad Guzman MDReport Verified Date/Time: 03/07/2017 08:38:07 Reading Location: [facility] Reading Room POCT-GLUCOSE [id number] 05:28:00 Test Item Value Reference Range Comments POC-GLUCOSE METER (BEAKER) 184 mg/dL 70-110 TESTED AT [address] (test alem=3269) [facility] [address] POCT-GLUCOSE [id number] 22:14:00 Test Item Value Reference Range Comments POC-GLUCOSE METER (BEAKER) 126 mg/dL 70-110 TESTED AT [address] (test yuls=7646) [facility] [address] POCT-GLUCOSE [id number] 17:23:00 Test Item Value Reference Range Comments POC-GLUCOSE METER (BEAKER) 193 mg/dL 70-110 TESTED AT [address] (test rqoo=9638) [facility] [address] BLOOD [id number] 14:18:00 Test Item Value Reference Range Comments CULTURE (BEAKER) (test ksmp=7561) Penicillin G (test code=3) Clindamycin (test Susceptible 0-2 , code=10) Resistant <0 or >2 Metronidazole (test Susceptible 0-8 , code=56) Resistant <0 or >8 CULTURE (BEAKER) From Anaerobic Bottle Only (test iqon=9132) Clostridium speciesIdentification and susceptibility performed by:[facility], [address] [place] [id number] GRAM STAIN RESULT From anaerobic (BEAKER) (test bottle only: gram ftng=4809) positive rods Corrected report, original organism and gram stain was from anaerobic bottle only: gram negative rodsNOT DETECTEDPanel is negative for Hosted AmericaFirFilao BCID- detectable organisms. Please refer to traditionalculture and sensitivity results as they become available.Other organisms and resistance markers not contained in this PCR panel cannot be excluded and follow-up of traditional culture results is required. This sample was tested at the [facility] Clinical Microbiology Laboratory using the [employer] FilmArrayBlood Culture ID Panel. This test is FDA cleared for in vitro diagnostic use and has been verified and approved by the [facility] Clinical Microbiology laboratory for clinical use. Reference Range: Not DetectedPOCT-GLUCOSE [id number] 14:02:00 Test Item Value Reference Range Comments POC-GLUCOSE METER (BEAKER) 225 mg/dL 70-110 TESTED AT [address] (test ooky=4465) [place] [address] POCT-GLUCOSE [id number] 10:31:00 Test Item Value Reference Range Comments POC-GLUCOSE METER (BEAKER) 180 mg/dL 70-110 TESTED AT [address] (test vqqr=1026) [place] [address] OCCULT BLOOD, [id number] 09:09:00 Test Item Value Reference Range Comments FECAL OCCULT BLOOD (BEAKER) (test zekp=908) Negative Negative CALCIUM, [id number] 06:21:00 Test Item Value Reference Range Comments CALCIUM IONIZED (BEAKER) (test odwa=339) 0.94 mmol/L 1.12-1.27 PH, BLOOD (BEAKER) (test fvam=1304) 7.46 [id number] 05:41:00 Test Item Value Reference Range Comments PHOSPHORUS (BEAKER) (test tpew=931) 2.2 mg/dL 2.3-4.7 [id number] 05:41:00 Test Item Value Reference Range Comments MAGNESIUM (BEAKER) (test mgib=972) 1.4 mg/dL 1.6-2.6 BASIC METABOLIC [id number] 05:41:00 Test Item Value Reference Range Comments SODIUM (BEAKER) (test 133 meq/L 136-145 ptxq=338) POTASSIUM (BEAKER) (test 4.0 meq/L 3.5-5.1 bipo=553) CHLORIDE (BEAKER) (test 100 meq/L 98-107 eujn=275) CO2 (BEAKER) (test 26 meq/L 22-29 iqoh=541) BLOOD UREA NITROGEN 11 mg/dL 7-21 (BEAKER) (test svox=123) CREATININE (BEAKER) (test 0.57 mg/dL 0.57-1.25 qcbt=023) GLUCOSE RANDOM (BEAKER) 150 mg/dL 70-105 (test ouib=931) CALCIUM (BEAKER) (test 8.3 mg/dL 8.4-10.2 dwil=408) EGFR (BEAKER) (test 147 mL/min/1.73 sq m ESTIMATED GFR IS NOT zhex=0595) ACCURATE CREATININE CLEARANCE IN PREDICTING GLOMERULAR FILTRATION RATE. ESTIMATED GFR IS NOT APPLICABLE FOR DIALYSIS PATIENTS. [id number] 05:37:00 Test Item Value Reference Range Comments PARTIAL THROMBOPLASTIN TIME (BEAKER) (test 48.5 seconds 22.5-36.0 jtcs=690) PROTHROMBIN [id number] 05:35:00 Test Item Value Reference Range Comments PROTIME (BEAKER) (test afmo=332) 16.6 seconds 11.7-14.7 INR (BEAKER) (test nmhf=299) 1.4 <=5.9 RECOMMENDED COUMADIN/WARFARIN INR THERAPY RANGESSTANDARD DOSE: 2.0 - 3.0 Includes: PROPHYLAXIS forvenous thrombosis, systemic embolization; TREATMENT for venous thrombosis and/or pulmonary embolus.HIGH RISK: Target INR is 2.5-3.5 for patients with mechanical heart valves.CBC W/PLT COUNT & AUTO [id number] 05:23:00 Test Item Value Reference Range Comments WHITE BLOOD CELL COUNT (BEAKER) (test ltce=440) 6.5 K/ L 3.5-10.5 RED BLOOD CELL COUNT (BEAKER) (test hyfh=631) 3.29 M/ L 4.63-6.08 HEMOGLOBIN (BEAKER) (test huox=264) 8.9 GM/DL 13.7-17.5 HEMATOCRIT (BEAKER) (test tpwi=457) 29.6 % 40.1-51.0 MEAN CORPUSCULAR VOLUME (BEAKER) (test disj=509) 90.0 fL 79.0-92.2 MEAN CORPUSCULAR HEMOGLOBIN (BEAKER) (test 27.1 pg 25.7-32.2 rkji=889) MEAN CORPUSCULAR HEMOGLOBIN CONC (BEAKER) (test 30.1 GM/DL 32.3-36.5 qzwc=020) RED CELL DISTRIBUTION WIDTH (BEAKER) (test 16.0 % 11.6-14.4 nhbp=303) PLATELET COUNT (BEAKER) (test karp=107) 435 K/CU MM 150-450 MEAN PLATELET VOLUME (BEAKER) (test lujj=767) 9.1 fL 9.4-12.4 NUCLEATED RED BLOOD CELLS (BEAKER) (test 0 /100 WBC 0-0 gdgs=826) NEUTROPHILS RELATIVE PERCENT (BEAKER) (test 79 % emtl=685) LYMPHOCYTES RELATIVE PERCENT (BEAKER) (test 10 % vrpe=350) MONOCYTES RELATIVE PERCENT (BEAKER) (test 9 % sjay=490) EOSINOPHILS RELATIVE PERCENT (BEAKER) (test 1 % ogsr=161) BASOPHILS RELATIVE PERCENT (BEAKER) (test 0 % vzav=258) NEUTROPHILS ABSOLUTE COUNT (BEAKER) (test 5.16 K/ L 1.78-5.38 oumt=899) LYMPHOCYTES ABSOLUTE COUNT (BEAKER) (test 0.66 K/ L 1.32-3.57 ztaf=051) MONOCYTES ABSOLUTE COUNT (BEAKER) (test 0.59 K/ L 0.30-0.82 ndqo=569) EOSINOPHILS ABSOLUTE COUNT (BEAKER) (test 0.06 K/ L 0.04-0.54 ewov=316) BASOPHILS ABSOLUTE COUNT (BEAKER) (test 0.02 K/ L 0.01-0.08 sxbx=797) IMMATURE GRANULOCYTES-RELATIVE PERCENT (BEAKER) 1 % 0-1 (test ieno=4314) POCT-GLUCOSE [id number] 04:34:00 Test Item Value Reference Range Comments POC-GLUCOSE METER (BEAKER) 168 mg/dL 70-110 TESTED AT [facility] [address] [facility] (test wluw=6843) [facility] [address] [id number] 23:24:00 Test Item Value Reference Range Comments PARTIAL THROMBOPLASTIN TIME (BEAKER) (test 50.7 seconds 22.5-36.0 oqph=183) CBC (HEMOGRAM ONLY)2017-03-05 23:17:00 Test Item Value Reference Range Comments WHITE BLOOD CELL COUNT (BEAKER) (test wnrk=702) 7.1 K/ L 3.5-10.5 RED BLOOD CELL COUNT (BEAKER) (test dabz=661) 3.42 M/ L 4.63-6.08 HEMOGLOBIN (BEAKER) (test oltk=639) 9.3 GM/DL 13.7-17.5 HEMATOCRIT (BEAKER) (test tluz=934) 31.3 % 40.1-51.0 MEAN CORPUSCULAR VOLUME (BEAKER) (test xfbu=158) 91.5 fL 79.0-92.2 MEAN CORPUSCULAR HEMOGLOBIN (BEAKER) (test 27.2 pg 25.7-32.2 vker=445) MEAN CORPUSCULAR HEMOGLOBIN CONC (BEAKER) (test 29.7 GM/DL 32.3-36.5 svkf=584) RED CELL DISTRIBUTION WIDTH (BEAKER) (test 16.2 % 11.6-14.4 kmoe=516) PLATELET COUNT (BEAKER) (test mkiy=547) 397 K/CU MM 150-450 MEAN PLATELET VOLUME (BEAKER) (test qlkg=855) 9.3 fL 9.4-12.4 NUCLEATED RED BLOOD CELLS (BEAKER) (test 0 /100 WBC 0-0 pdbt=303) OCCULT BLOOD, [id number] 22:48:00 Test Item Value Reference Range Comments FECAL OCCULT BLOOD (BEAKER) (test epmc=078) Negative Negative POCT-GLUCOSE [id number] 22:08:00 Test Item Value Reference Range Comments POC-GLUCOSE METER (BEAKER) 159 mg/dL 70-110 TESTED AT [address] (test gdxx=9015) [place] [id number] POCT-GLUCOSE [id number] 19:01:00 Test Item Value Reference Range Comments POC-GLUCOSE METER (BEAKER) 166 mg/dL 70-110 TESTED AT [address] (test bxdw=3411) [place] [id number] 16:17:00 Test Item Value Reference Range Comments PARTIAL THROMBOPLASTIN TIME (BEAKER) (test 41.2 seconds 22.5-36.0 dzkx=040) Prior to initiating heparinCBC (HEMOGRAM ONLY)2017-03-05 15:56:00 Test Item Value Reference Range Comments WHITE BLOOD CELL COUNT (BEAKER) (test kuey=231) 8.2 K/ L 3.5-10.5 RED BLOOD CELL COUNT (BEAKER) (test zjgi=140) 3.04 M/ L 4.63-6.08 HEMOGLOBIN (BEAKER) (test lbtc=195) 8.3 GM/DL 13.7-17.5 HEMATOCRIT (BEAKER) (test pstg=084) 27.0 % 40.1-51.0 MEAN CORPUSCULAR VOLUME (BEAKER) (test fpah=693) 88.8 fL 79.0-92.2 MEAN CORPUSCULAR HEMOGLOBIN (BEAKER) (test 27.3 pg 25.7-32.2 wlkf=328) MEAN CORPUSCULAR HEMOGLOBIN CONC (BEAKER) (test 30.7 GM/DL 32.3-36.5 smnh=481) RED CELL DISTRIBUTION WIDTH (BEAKER) (test 15.9 % 11.6-14.4 tynr=659) PLATELET COUNT (BEAKER) (test zyin=300) 474 K/CU MM 150-450 MEAN PLATELET VOLUME (BEAKER) (test dibc=311) 9.7 fL 9.4-12.4 NUCLEATED RED BLOOD CELLS (BEAKER) (test 0 /100 WBC 0-0 pavg=382) POCT-GLUCOSE [id number] 12:52:00 Test Item Value Reference Range Comments POC-GLUCOSE METER (BEAKER) 175 mg/dL 70-110 TESTED AT [address] (test rduw=9395) [facility] [address] POCT-GLUCOSE [id number] 09:36:00 Test Item Value Reference Range Comments POC-GLUCOSE METER (BEAKER) 162 mg/dL 70-110 TESTED AT [address] (test hrba=0411) [facility] [address] CALCIUM, [id number] 06:26:00 Test Item Value Reference Range Comments CALCIUM IONIZED (BEAKER) (test hklc=104) 0.98 mmol/L 1.12-1.27 PH, BLOOD (BEAKER) (test xjrx=7827) 7.45 [id number] 06:10:00 Test Item Value Reference Range Comments PHOSPHORUS (BEAKER) (test auiz=369) 2.4 mg/dL 2.3-4.7 [id number] 06:10:00 Test Item Value Reference Range Comments MAGNESIUM (BEAKER) (test unic=550) 1.7 mg/dL 1.6-2.6 BASIC METABOLIC [id number] 06:10:00 Test Item Value Reference Range Comments SODIUM (BEAKER) (test 136 meq/L 136-145 trkd=557) POTASSIUM (BEAKER) (test 4.3 meq/L 3.5-5.1 ggue=651) CHLORIDE (BEAKER) (test 102 meq/L 98-107 jcck=264) CO2 (BEAKER) (test 26 meq/L 22-29 dywo=499) BLOOD UREA NITROGEN 13 mg/dL 7-21 (BEAKER) (test kdsi=750) CREATININE (BEAKER) (test 0.61 mg/dL 0.57-1.25 qvrr=190) GLUCOSE RANDOM (BEAKER) 128 mg/dL 70-105 (test htje=301) CALCIUM (BEAKER) (test 8.3 mg/dL 8.4-10.2 vmdc=641) EGFR (BEAKER) (test 136 mL/min/1.73 sq m ESTIMATED GFR IS NOT yorf=8694) ACCURATE CREATININE CLEARANCE IN PREDICTING GLOMERULAR FILTRATION RATE. ESTIMATED GFR IS NOT APPLICABLE FOR DIALYSIS PATIENTS. CBC W/PLT COUNT & AUTO [id number] 05:40:00 Test Item Value Reference Range Comments WHITE BLOOD CELL COUNT (BEAKER) (test ziqw=926) 7.8 K/ L 3.5-10.5 RED BLOOD CELL COUNT (BEAKER) (test gtpk=620) 3.21 M/ L 4.63-6.08 HEMOGLOBIN (BEAKER) (test jqbl=245) 8.6 GM/DL 13.7-17.5 HEMATOCRIT (BEAKER) (test ekcn=594) 29.3 % 40.1-51.0 MEAN CORPUSCULAR VOLUME (BEAKER) (test hrsp=855) 91.3 fL 79.0-92.2 MEAN CORPUSCULAR HEMOGLOBIN (BEAKER) (test 26.8 pg 25.7-32.2 ajje=080) MEAN CORPUSCULAR HEMOGLOBIN CONC (BEAKER) (test 29.4 GM/DL 32.3-36.5 lkzq=028) RED CELL DISTRIBUTION WIDTH (BEAKER) (test 16.0 % 11.6-14.4 omxv=895) PLATELET COUNT (BEAKER) (test aurv=781) 475 K/CU MM 150-450 MEAN PLATELET VOLUME (BEAKER) (test wzgp=344) 9.5 fL 9.4-12.4 NUCLEATED RED BLOOD CELLS (BEAKER) (test 0 /100 WBC 0-0 pabw=697) NEUTROPHILS RELATIVE PERCENT (BEAKER) (test 79 % lydt=682) LYMPHOCYTES RELATIVE PERCENT (BEAKER) (test 11 % fzfh=277) MONOCYTES RELATIVE PERCENT (BEAKER) (test 9 % wjwj=599) EOSINOPHILS RELATIVE PERCENT (BEAKER) (test 1 % ixfd=370) BASOPHILS RELATIVE PERCENT (BEAKER) (test 0 % rnkb=488) NEUTROPHILS ABSOLUTE COUNT (BEAKER) (test 6.13 K/ L 1.78-5.38 cqep=059) LYMPHOCYTES ABSOLUTE COUNT (BEAKER) (test 0.83 K/ L 1.32-3.57 bocs=357) MONOCYTES ABSOLUTE COUNT (BEAKER) (test 0.68 K/ L 0.30-0.82 vugr=569) EOSINOPHILS ABSOLUTE COUNT (BEAKER) (test 0.06 K/ L 0.04-0.54 zsbp=352) BASOPHILS ABSOLUTE COUNT (BEAKER) (test 0.02 K/ L 0.01-0.08 jfsb=016) IMMATURE GRANULOCYTES-RELATIVE PERCENT (BEAKER) 1 % 0-1 (test rgdc=2200) POCT-GLUCOSE [id number] 03:49:00 Test Item Value Reference Range Comments POC-GLUCOSE METER (BEAKER) 140 mg/dL 70-110 TESTED AT [address] (test ydgi=3633) [facility] [address] POCT-GLUCOSE [id number] 00:28:00 Test Item Value Reference Range Comments POC-GLUCOSE METER (BEAKER) 113 mg/dL 70-110 TESTED AT [address] (test tiyi=9251) [facility] [address] POCT-GLUCOSE [id number] 21:15:00 Test Item Value Reference Range Comments POC-GLUCOSE METER (BEAKER) 129 mg/dL 70-110 TESTED AT [address] (test cfbz=8973) [facility] [address] POCT-GLUCOSE [id number] 17:56:00 Test Item Value Reference Range Comments POC-GLUCOSE METER (BEAKER) 157 mg/dL 70-110 TESTED AT [address] (test tejo=2657) [facility] [address] POCT-GLUCOSE [id number] 15:19:00 Test Item Value Reference Range Comments POC-GLUCOSE METER (BEAKER) 168 mg/dL 70-110 TESTED AT [address] (test szpg=0499) [facility] [address] POCT-GLUCOSE [id number] 10:08:00 Test Item Value Reference Range Comments POC-GLUCOSE METER (BEAKER) 192 mg/dL 70-110 TESTED AT [address] (test qopt=6122) [facility] [address] POCT-GLUCOSE [id number] 08:28:00 Test Item Value Reference Range Comments POC-GLUCOSE METER (BEAKER) 190 mg/dL 70-110 TESTED AT [address] (test pcnp=6286) [facility] [address] CALCIUM, [id number] 07:52:00 Test Item Value Reference Range Comments CALCIUM IONIZED (BEAKER) (test wjgm=494) 0.96 mmol/L 1.12-1.27 PH, BLOOD (BEAKER) (test pgba=8821) 7.48 [id number] 06:20:00 Test Item Value Reference Range Comments PHOSPHORUS (BEAKER) (test xagt=937) 2.4 mg/dL 2.3-4.7 [id number] 06:20:00 Test Item Value Reference Range Comments MAGNESIUM (BEAKER) (test tama=907) 1.5 mg/dL 1.6-2.6 BASIC METABOLIC [id number] 06:20:00 Test Item Value Reference Range Comments SODIUM (BEAKER) (test 138 meq/L 136-145 zimy=724) POTASSIUM (BEAKER) (test 4.2 meq/L 3.5-5.1 hspe=829) CHLORIDE (BEAKER) (test 103 meq/L 98-107 gukt=410) CO2 (BEAKER) (test 28 meq/L 22-29 gsmd=505) BLOOD UREA NITROGEN 12 mg/dL 7-21 (BEAKER) (test qjhu=655) CREATININE (BEAKER) (test 0.60 mg/dL 0.57-1.25 lflg=108) GLUCOSE RANDOM (BEAKER) 156 mg/dL 70-105 (test nrsw=348) CALCIUM (BEAKER) (test 8.4 mg/dL 8.4-10.2 gesk=683) EGFR (BEAKER) (test 138 mL/min/1.73 sq m ESTIMATED GFR IS NOT kmdk=2033) ACCURATE CREATININE CLEARANCE IN PREDICTING GLOMERULAR FILTRATION RATE. ESTIMATED GFR IS NOT APPLICABLE FOR DIALYSIS PATIENTS. POCT-GLUCOSE [id number] 05:56:00 Test Item Value Reference Range Comments POC-GLUCOSE METER (BEAKER) 122 mg/dL 70-110 TESTED AT [facility] [address] [facility] (test sgqb=4534) [facility] [address] CBC W/PLT COUNT & AUTO [id number] 05:48:00 Test Item Value Reference Range Comments WHITE BLOOD CELL COUNT (BEAKER) (test bxxi=692) 8.6 K/ L 3.5-10.5 RED BLOOD CELL COUNT (BEAKER) (test imcf=237) 3.24 M/ L 4.63-6.08 HEMOGLOBIN (BEAKER) (test cxuv=039) 8.8 GM/DL 13.7-17.5 HEMATOCRIT (BEAKER) (test aerp=750) 29.6 % 40.1-51.0 MEAN CORPUSCULAR VOLUME (BEAKER) (test akge=552) 91.4 fL 79.0-92.2 MEAN CORPUSCULAR HEMOGLOBIN (BEAKER) (test 27.2 pg 25.7-32.2 bcjk=241) MEAN CORPUSCULAR HEMOGLOBIN CONC (BEAKER) (test 29.7 GM/DL 32.3-36.5 bpxq=006) RED CELL DISTRIBUTION WIDTH (BEAKER) (test 15.9 % 11.6-14.4 iohy=687) PLATELET COUNT (BEAKER) (test iqik=135) 475 K/CU MM 150-450 MEAN PLATELET VOLUME (BEAKER) (test tkek=147) 9.4 fL 9.4-12.4 NUCLEATED RED BLOOD CELLS (BEAKER) (test 0 /100 WBC 0-0 xvvc=807) NEUTROPHILS RELATIVE PERCENT (BEAKER) (test 83 % ouum=124) LYMPHOCYTES RELATIVE PERCENT (BEAKER) (test 8 % hhnt=729) MONOCYTES RELATIVE PERCENT (BEAKER) (test 7 % gpmt=543) EOSINOPHILS RELATIVE PERCENT (BEAKER) (test 1 % hygv=593) BASOPHILS RELATIVE PERCENT (BEAKER) (test 0 % hjag=644) NEUTROPHILS ABSOLUTE COUNT (BEAKER) (test 7.20 K/ L 1.78-5.38 xemp=172) LYMPHOCYTES ABSOLUTE COUNT (BEAKER) (test 0.70 K/ L 1.32-3.57 sbmd=860) MONOCYTES ABSOLUTE COUNT (BEAKER) (test 0.59 K/ L 0.30-0.82 vjzu=406) EOSINOPHILS ABSOLUTE COUNT (BEAKER) (test 0.07 K/ L 0.04-0.54 dpat=881) BASOPHILS ABSOLUTE COUNT (BEAKER) (test 0.03 K/ L 0.01-0.08 khlx=466) IMMATURE GRANULOCYTES-RELATIVE PERCENT (BEAKER) 1 % 0-1 (test gkzj=2958) CBC W/PLT COUNT & AUTO [id number] 05:48:00 Test Item Value Reference Range Comments WHITE BLOOD CELL COUNT (BEAKER) (test bfsp=591) 8.7 K/ L 3.5-10.5 RED BLOOD CELL COUNT (BEAKER) (test fmza=860) 3.26 M/ L 4.63-6.08 HEMOGLOBIN (BEAKER) (test tbtl=794) 8.9 GM/DL 13.7-17.5 HEMATOCRIT (BEAKER) (test eosz=758) 29.8 % 40.1-51.0 MEAN CORPUSCULAR VOLUME (BEAKER) (test kaqk=778) 91.4 fL 79.0-92.2 MEAN CORPUSCULAR HEMOGLOBIN (BEAKER) (test 27.3 pg 25.7-32.2 sgvs=254) MEAN CORPUSCULAR HEMOGLOBIN CONC (BEAKER) (test 29.9 GM/DL 32.3-36.5 qpvc=451) RED CELL DISTRIBUTION WIDTH (BEAKER) (test 15.9 % 11.6-14.4 bnde=295) PLATELET COUNT (BEAKER) (test ztvv=704) 475 K/CU MM 150-450 MEAN PLATELET VOLUME (BEAKER) (test dqtd=871) 9.4 fL 9.4-12.4 NUCLEATED RED BLOOD CELLS (BEAKER) (test 0 /100 WBC 0-0 hwnl=798) NEUTROPHILS RELATIVE PERCENT (BEAKER) (test 84 % jggs=186) LYMPHOCYTES RELATIVE PERCENT (BEAKER) (test 8 % fjcn=286) MONOCYTES RELATIVE PERCENT (BEAKER) (test 7 % xaqp=657) EOSINOPHILS RELATIVE PERCENT (BEAKER) (test 1 % nwvv=721) BASOPHILS RELATIVE PERCENT (BEAKER) (test 1 % tbeq=645) NEUTROPHILS ABSOLUTE COUNT (BEAKER) (test 7.27 K/ L 1.78-5.38 smji=990) LYMPHOCYTES ABSOLUTE COUNT (BEAKER) (test 0.65 K/ L 1.32-3.57 wbbx=306) MONOCYTES ABSOLUTE COUNT (BEAKER) (test 0.60 K/ L 0.30-0.82 ypoy=555) EOSINOPHILS ABSOLUTE COUNT (BEAKER) (test 0.07 K/ L 0.04-0.54 hqfv=926) BASOPHILS ABSOLUTE COUNT (BEAKER) (test 0.04 K/ L 0.01-0.08 wkhx=656) IMMATURE GRANULOCYTES-RELATIVE PERCENT (BEAKER) 1 % 0-1 (test etzy=5687) POCT-GLUCOSE [id number] 02:45:00 Test Item Value Reference Range Comments POC-GLUCOSE METER (BEAKER) 131 mg/dL 70-110 TESTED AT [address] (test arii=6991) [place] [address] OCCULT BLOOD, [id number] 01:43:00 Test Item Value Reference Range Comments FECAL OCCULT BLOOD (BEAKER) (test wvdp=046) Positive Negative POCT-GLUCOSE [id number] 21:09:00 Test Item Value Reference Range Comments POC-GLUCOSE METER (BEAKER) 104 mg/dL 70-110 TESTED AT [address] (test tilp=2795) [place] [address] POCT-GLUCOSE [id number] 16:40:00 Test Item Value Reference Range Comments POC-GLUCOSE METER (BEAKER) 233 mg/dL 70-110 TESTED AT [address] (test ydnm=6655) [place] [address] [id number] 14:38:00 Test Item Value Reference Range Comments PARTIAL THROMBOPLASTIN TIME (BEAKER) (test 90.4 seconds 22.5-36.0 sszj=773) RAD, ABDOMEN/KUB, 1 VIEW [id number] 14:33:00Reason for exam:->NG placementShould this be performed [...] the spine. Signed: Saad Cochran Verified Date/Time: 2017 14:33:02 Reading Location: [place] [id number] Ortho Consult Reading Room RAD, CHEST, 1 VIEW, NON [id number] 14:20:00Reason for exam:->NG placementShould this be performed [...] Cochran Verified Date/Time: 03/03/2017 14:20:07 Reading Location: [facility] [id number] Ortho Consult Reading Room POCT-GLUCOSE [id number] 13:04:00 Test Item Value Reference Range Comments POC-GLUCOSE METER (BEAKER) 188 mg/dL 70-110 TESTED AT [address] (test hscd=0566) [place] [address] POCT-GLUCOSE [id number] 08:26:00 Test Item Value Reference Range Comments POC-GLUCOSE METER (BEAKER) 264 mg/dL 70-110 TESTED AT [address] (test sqki=5634) [place] [address] CALCIUM, [id number] 06:30:00 Test Item Value Reference Range Comments CALCIUM IONIZED (BEAKER) (test cfqp=779) 1.04 mmol/L 1.12-1.27 PH, BLOOD (BEAKER) (test mjvl=4641) 7.37 [id number] 06:12:00 Test Item Value Reference Range Comments PHOSPHORUS (BEAKER) (test hixd=075) 3.0 mg/dL 2.3-4.7 [id number] 06:12:00 Test Item Value Reference Range Comments MAGNESIUM (BEAKER) (test elad=709) 1.7 mg/dL 1.6-2.6 BASIC METABOLIC [id number] 06:12:00 Test Item Value Reference Range Comments SODIUM (BEAKER) (test 137 meq/L 136-145 whco=576) POTASSIUM (BEAKER) (test 4.3 meq/L 3.5-5.1 gohr=791) CHLORIDE (BEAKER) (test 101 meq/L 98-107 onju=311) CO2 (BEAKER) (test 28 meq/L 22-29 jxrh=854) BLOOD UREA NITROGEN 16 mg/dL 7-21 (BEAKER) (test gycl=355) CREATININE (BEAKER) (test 0.66 mg/dL 0.57-1.25 eijw=297) GLUCOSE RANDOM (BEAKER) 192 mg/dL 70-105 (test pzkt=673) CALCIUM (BEAKER) (test 8.7 mg/dL 8.4-10.2 qtlp=322) EGFR (BEAKER) (test 124 mL/min/1.73 sq m ESTIMATED GFR IS NOT avff=9595) ACCURATE CREATININE CLEARANCE IN PREDICTING GLOMERULAR FILTRATION RATE. ESTIMATED GFR IS NOT APPLICABLE FOR DIALYSIS PATIENTS. [id number] 06:00:00 Test Item Value Reference Range Comments PARTIAL THROMBOPLASTIN TIME (BEAKER) (test 51.3 seconds 22.5-36.0 jkxv=379) CBC W/PLT COUNT & AUTO [id number] 05:58:00 Test Item Value Reference Range Comments WHITE BLOOD CELL COUNT (BEAKER) (test lvoc=437) 8.1 K/ L 3.5-10.5 RED BLOOD CELL COUNT (BEAKER) (test ohfj=458) 3.46 M/ L 4.63-6.08 HEMOGLOBIN (BEAKER) (test sttl=027) 9.4 GM/DL 13.7-17.5 HEMATOCRIT (BEAKER) (test fzpb=298) 32.2 % 40.1-51.0 MEAN CORPUSCULAR VOLUME (BEAKER) (test fjnf=717) 93.1 fL 79.0-92.2 MEAN CORPUSCULAR HEMOGLOBIN (BEAKER) (test 27.2 pg 25.7-32.2 jcff=887) MEAN CORPUSCULAR HEMOGLOBIN CONC (BEAKER) (test 29.2 GM/DL 32.3-36.5 wgxb=187) RED CELL DISTRIBUTION WIDTH (BEAKER) (test 16.3 % 11.6-14.4 llzu=513) PLATELET COUNT (BEAKER) (test rwhx=211) 471 K/CU MM 150-450 MEAN PLATELET VOLUME (BEAKER) (test zpzi=516) 9.6 fL 9.4-12.4 NUCLEATED RED BLOOD CELLS (BEAKER) (test 0 /100 WBC 0-0 pwyk=532) NEUTROPHILS RELATIVE PERCENT (BEAKER) (test 76 % mljw=218) LYMPHOCYTES RELATIVE PERCENT (BEAKER) (test 14 % vhvu=742) MONOCYTES RELATIVE PERCENT (BEAKER) (test 8 % mtut=708) EOSINOPHILS RELATIVE PERCENT (BEAKER) (test 1 % iuzj=543) BASOPHILS RELATIVE PERCENT (BEAKER) (test 0 % eczr=468) NEUTROPHILS ABSOLUTE COUNT (BEAKER) (test 6.13 K/ L 1.78-5.38 ktlf=286) LYMPHOCYTES ABSOLUTE COUNT (BEAKER) (test 1.14 K/ L 1.32-3.57 aszh=073) MONOCYTES ABSOLUTE COUNT (BEAKER) (test 0.66 K/ L 0.30-0.82 ygld=286) EOSINOPHILS ABSOLUTE COUNT (BEAKER) (test 0.08 K/ L 0.04-0.54 uujn=192) BASOPHILS ABSOLUTE COUNT (BEAKER) (test 0.03 K/ L 0.01-0.08 ybvz=601) IMMATURE GRANULOCYTES-RELATIVE PERCENT (BEAKER) 1 % 0-1 (test wpde=1217) POCT-GLUCOSE [id number] 04:02:00 Test Item Value Reference Range Comments POC-GLUCOSE METER (BEAKER) 168 mg/dL 70-110 TESTED AT [address] (test enlw=5059) [facility] [address] POCT-GLUCOSE [id number] 21:21:00 Test Item Value Reference Range Comments POC-GLUCOSE METER (BEAKER) 87 mg/dL 70-110 TESTED AT [address] (test mbzs=3132) [facility] [address] POCT-GLUCOSE [id number] 21:21:00 Test Item Value Reference Range Comments POC-GLUCOSE METER (BEAKER) 82 mg/dL 70-110 TESTED AT [address] (test iwea=8588) [facility] [address] POCT-GLUCOSE [id number] 19:01:00 Test Item Value Reference Range Comments POC-GLUCOSE METER (BEAKER) 88 mg/dL 70-110 TESTED AT [address] (test zihv=8884) [facility] [address] POCT-GLUCOSE [id number] 17:50:00 Test Item Value Reference Range Comments POC-GLUCOSE METER (BEAKER) 51 mg/dL 70-110 TESTED AT [address] (test hpvs=5722) [facility] [address] POCT-GLUCOSE [id number] 12:06:00 Test Item Value Reference Range Comments POC-GLUCOSE METER (BEAKER) 186 mg/dL 70-110 TESTED AT [address] (test iuaa=3024) [facility] [address] POCT-GLUCOSE [id number] 09:00:00 Test Item Value Reference Range Comments POC-GLUCOSE METER (BEAKER) 192 mg/dL 70-110 TESTED AT [address] (test fasx=9491) [facility] [address] T4, [id number] 07:27:00 Test Item Value Reference Range Comments FREE T4 (BEAKER) (test ksfb=549) 1.17 ng/dL 0.70-1.48 TSH/FREE T4 IF [id number] 07:27:00 Test Item Value Reference Range Comments THYROID STIMULATING HORMONE (BEAKER) (test 0.38 uIU/mL 0.35-4.94 nyhi=320) [id number] 07:09:00 Test Item Value Reference Range Comments PHOSPHORUS (BEAKER) (test zjuz=854) 2.9 mg/dL 2.3-4.7 [id number] 07:09:00 Test Item Value Reference Range Comments MAGNESIUM (BEAKER) (test qqby=656) 1.6 mg/dL 1.6-2.6 BASIC METABOLIC [id number] 07:09:00 Test Item Value Reference Range Comments SODIUM (BEAKER) (test 137 meq/L 136-145 ouic=674) POTASSIUM (BEAKER) (test 4.6 meq/L 3.5-5.1 axfc=272) CHLORIDE (BEAKER) (test 102 meq/L 98-107 olaa=497) CO2 (BEAKER) (test 26 meq/L 22-29 oqfy=685) BLOOD UREA NITROGEN 20 mg/dL 7-21 (BEAKER) (test jqhu=923) CREATININE (BEAKER) (test 0.63 mg/dL 0.57-1.25 pjzx=092) GLUCOSE RANDOM (BEAKER) 107 mg/dL 70-105 (test mjzk=178) CALCIUM (BEAKER) (test 8.5 mg/dL 8.4-10.2 syjq=298) EGFR (BEAKER) (test 131 mL/min/1.73 sq m ESTIMATED GFR IS NOT yvfi=4720) ACCURATE CREATININE CLEARANCE IN PREDICTING GLOMERULAR FILTRATION RATE. ESTIMATED GFR IS NOT APPLICABLE FOR DIALYSIS PATIENTS. CBC W/PLT COUNT & AUTO [id number] 06:48:00 Test Item Value Reference Range Comments WHITE BLOOD CELL COUNT (BEAKER) (test boja=799) 8.7 K/ L 3.5-10.5 RED BLOOD CELL COUNT (BEAKER) (test gghx=188) 3.15 M/ L 4.63-6.08 HEMOGLOBIN (BEAKER) (test psej=388) 8.8 GM/DL 13.7-17.5 HEMATOCRIT (BEAKER) (test dncs=890) 29.4 % 40.1-51.0 MEAN CORPUSCULAR VOLUME (BEAKER) (test dtsp=001) 93.3 fL 79.0-92.2 MEAN CORPUSCULAR HEMOGLOBIN (BEAKER) (test 27.9 pg 25.7-32.2 isoh=394) MEAN CORPUSCULAR HEMOGLOBIN CONC (BEAKER) (test 29.9 GM/DL 32.3-36.5 king=600) RED CELL DISTRIBUTION WIDTH (BEAKER) (test 16.3 % 11.6-14.4 xbkv=971) PLATELET COUNT (BEAKER) (test cybq=661) 459 K/CU MM 150-450 MEAN PLATELET VOLUME (BEAKER) (test fklj=649) 9.9 fL 9.4-12.4 NUCLEATED RED BLOOD CELLS (BEAKER) (test 0 /100 WBC 0-0 rxfy=784) NEUTROPHILS RELATIVE PERCENT (BEAKER) (test 78 % qjrm=833) LYMPHOCYTES RELATIVE PERCENT (BEAKER) (test 12 % ppvz=081) MONOCYTES RELATIVE PERCENT (BEAKER) (test 8 % kdin=554) EOSINOPHILS RELATIVE PERCENT (BEAKER) (test 1 % wzdg=886) BASOPHILS RELATIVE PERCENT (BEAKER) (test 0 % zgim=074) NEUTROPHILS ABSOLUTE COUNT (BEAKER) (test 6.76 K/ L 1.78-5.38 dopc=853) LYMPHOCYTES ABSOLUTE COUNT (BEAKER) (test 1.03 K/ L 1.32-3.57 zjmy=318) MONOCYTES ABSOLUTE COUNT (BEAKER) (test 0.72 K/ L 0.30-0.82 vdqg=887) EOSINOPHILS ABSOLUTE COUNT (BEAKER) (test 0.09 K/ L 0.04-0.54 eltl=635) BASOPHILS ABSOLUTE COUNT (BEAKER) (test 0.02 K/ L 0.01-0.08 uwle=529) IMMATURE GRANULOCYTES-RELATIVE PERCENT (BEAKER) 1 % 0-1 (test ierv=6616) POCT-GLUCOSE [id number] 06:16:00 Test Item Value Reference Range Comments POC-GLUCOSE METER (BEAKER) 113 mg/dL 70-110 TESTED AT [address] (test seyd=4342) [facility] [address] CALCIUM, [id number] 05:43:00 Test Item Value Reference Range Comments CALCIUM IONIZED (BEAKER) (test lhqi=414) 0.94 mmol/L 1.12-1.27 PH, BLOOD (BEAKER) (test wnkg=7437) 7.52 POCT-GLUCOSE [id number] 00:42:00 Test Item Value Reference Range Comments POC-GLUCOSE METER (BEAKER) 154 mg/dL 70-110 TESTED AT [address] (test atdu=2323) [facility] [address] POCT-GLUCOSE [id number] 18:00:00 Test Item Value Reference Range Comments POC-GLUCOSE METER (BEAKER) 134 mg/dL 70-110 TESTED AT [facility] [address] [facility] (test rmsm=8288) [facility] [address] POCT-GLUCOSE [id number] 12:46:00 Test Item Value Reference Range Comments POC-GLUCOSE METER (BEAKER) 197 mg/dL 70-110 TESTED AT [address] (test mnpp=4849) [facility] [address] POCT-GLUCOSE [id number] 11:37:00 Test Item Value Reference Range Comments POC-GLUCOSE METER (BEAKER) 174 mg/dL 70-110 TESTED AT [address] (test hrhv=3842) [facility] [address] CALCIUM, [id number] 05:19:00 Test Item Value Reference Range Comments CALCIUM IONIZED (BEAKER) (test blba=176) 1.16 mmol/L 1.12-1.27 PH, BLOOD (BEAKER) (test zlyp=5355) 7.44 [id number] 05:15:00 Test Item Value Reference Range Comments PHOSPHORUS (BEAKER) (test wzrc=970) 2.9 mg/dL 2.3-4.7 [id number] 05:15:00 Test Item Value Reference Range Comments MAGNESIUM (BEAKER) (test svav=623) 1.8 mg/dL 1.6-2.6 BASIC METABOLIC [id number] 05:15:00 Test Item Value Reference Range Comments SODIUM (BEAKER) (test 140 meq/L 136-145 gzpo=020) POTASSIUM (BEAKER) (test 4.6 meq/L 3.5-5.1 vlzy=987) CHLORIDE (BEAKER) (test 104 meq/L 98-107 qukj=229) CO2 (BEAKER) (test 30 meq/L 22-29 mqiq=794) BLOOD UREA NITROGEN 20 mg/dL 7-21 (BEAKER) (test muja=004) CREATININE (BEAKER) (test 0.63 mg/dL 0.57-1.25 bubx=321) GLUCOSE RANDOM (BEAKER) 142 mg/dL 70-105 (test hoza=030) CALCIUM (BEAKER) (test 8.5 mg/dL 8.4-10.2 vyvx=785) EGFR (BEAKER) (test 131 mL/min/1.73 sq m ESTIMATED GFR IS NOT qwex=0338) ACCURATE CREATININE CLEARANCE IN PREDICTING GLOMERULAR FILTRATION RATE. ESTIMATED GFR IS NOT APPLICABLE FOR DIALYSIS PATIENTS. CBC W/PLT COUNT & AUTO [id number] 04:40:00 Test Item Value Reference Range Comments WHITE BLOOD CELL COUNT (BEAKER) (test maio=322) 7.9 K/ L 3.5-10.5 RED BLOOD CELL COUNT (BEAKER) (test wtki=837) 3.14 M/ L 4.63-6.08 HEMOGLOBIN (BEAKER) (test jtcj=096) 8.5 GM/DL 13.7-17.5 HEMATOCRIT (BEAKER) (test tdrt=262) 29.2 % 40.1-51.0 MEAN CORPUSCULAR VOLUME (BEAKER) (test oaou=837) 93.0 fL 79.0-92.2 MEAN CORPUSCULAR HEMOGLOBIN (BEAKER) (test 27.1 pg 25.7-32.2 exjl=574) MEAN CORPUSCULAR HEMOGLOBIN CONC (BEAKER) (test 29.1 GM/DL 32.3-36.5 pvzy=681) RED CELL DISTRIBUTION WIDTH (BEAKER) (test 16.3 % 11.6-14.4 jhns=221) PLATELET COUNT (BEAKER) (test zmiy=201) 469 K/CU MM 150-450 MEAN PLATELET VOLUME (BEAKER) (test wmtb=217) 9.8 fL 9.4-12.4 NUCLEATED RED BLOOD CELLS (BEAKER) (test 0 /100 WBC 0-0 uast=359) NEUTROPHILS RELATIVE PERCENT (BEAKER) (test 74 % paun=308) LYMPHOCYTES RELATIVE PERCENT (BEAKER) (test 13 % fpvu=498) MONOCYTES RELATIVE PERCENT (BEAKER) (test 9 % wfkh=076) EOSINOPHILS RELATIVE PERCENT (BEAKER) (test 2 % tcpd=287) BASOPHILS RELATIVE PERCENT (BEAKER) (test 1 % vnjo=116) NEUTROPHILS ABSOLUTE COUNT (BEAKER) (test 5.91 K/ L 1.78-5.38 ldmi=577) LYMPHOCYTES ABSOLUTE COUNT (BEAKER) (test 1.05 K/ L 1.32-3.57 meme=683) MONOCYTES ABSOLUTE COUNT (BEAKER) (test 0.72 K/ L 0.30-0.82 vgum=111) EOSINOPHILS ABSOLUTE COUNT (BEAKER) (test 0.12 K/ L 0.04-0.54 gtkq=834) BASOPHILS ABSOLUTE COUNT (BEAKER) (test 0.04 K/ L 0.01-0.08 rsoz=484) IMMATURE GRANULOCYTES-RELATIVE PERCENT (AKER) 1 % 0-1 (test rmxc=5084) POCT-GLUCOSE [id number] 21:22:00 Test Item Value Reference Range Comments POC-GLUCOSE METER (BEAKER) 143 mg/dL 70-110 TESTED AT [address] (test dpcg=4771) [place] [address] POCT-GLUCOSE [id number] 18:03:00 Test Item Value Reference Range Comments POC-GLUCOSE METER (BEAKER) 123 mg/dL 70-110 TESTED AT [address] (test cwwx=3593) [place] [address] POCT-GLUCOSE [id number] 12:49:00 Test Item Value Reference Range Comments POC-GLUCOSE METER (BEAKER) 197 mg/dL 70-110 TESTED AT [address] (test jaey=0321) [place] [address] FUNGUS CULTURE + [id number] 11:55:00 Test Item Value Reference Range Comments CULTURE (BEAKER) (test No fungus isolated in 28 days ghgf=1876) FUNGUS SMEAR (BEAKER) (test No fungi seen xndj=3597) POCT-GLUCOSE [id number] 08:30:00 Test Item Value Reference Range Comments POC-GLUCOSE METER (BEAKER) 259 mg/dL 70-110 TESTED AT [address] (test xuls=6938) [place] [address] POCT-GLUCOSE [id number] 06:35:00 Test Item Value Reference Range Comments POC-GLUCOSE METER (BEAKER) 342 mg/dL 70-110 TESTED AT [address] (test enus=1659) [place] [address] [id number] 06:23:00 Test Item Value Reference Range Comments THYROID STIMULATING HORMONE (BEAKER) (test 0.51 uIU/mL 0.35-4.94 gxyu=365) CBC W/PLT COUNT & AUTO [id number] 06:17:00 Test Item Value Reference Range Comments WHITE BLOOD CELL COUNT (BEAKER) (test pdzv=776) 10.4 K/ L 3.5-10.5 RED BLOOD CELL COUNT (BEAKER) (test vnnw=471) 3.11 M/ L 4.63-6.08 HEMOGLOBIN (BEAKER) (test jcnp=347) 8.6 GM/DL 13.7-17.5 HEMATOCRIT (BEAKER) (test iapr=242) 29.2 % 40.1-51.0 MEAN CORPUSCULAR VOLUME (BEAKER) (test qrzh=448) 93.9 fL 79.0-92.2 MEAN CORPUSCULAR HEMOGLOBIN (BEAKER) (test 27.7 pg 25.7-32.2 bdbk=933) MEAN CORPUSCULAR HEMOGLOBIN CONC (BEAKER) (test 29.5 GM/DL 32.3-36.5 ftve=818) RED CELL DISTRIBUTION WIDTH (BEAKER) (test 16.2 % 11.6-14.4 sriy=843) PLATELET COUNT (BEAKER) (test jpsd=526) 480 K/CU MM 150-450 MEAN PLATELET VOLUME (BEAKER) (test xaaz=626) 10.2 fL 9.4-12.4 NUCLEATED RED BLOOD CELLS (BEAKER) (test 1 /100 WBC 0-0 tanb=576) NEUTROPHILS RELATIVE PERCENT (BEAKER) (test 77 % yigr=152) LYMPHOCYTES RELATIVE PERCENT (BEAKER) (test 11 % idig=369) MONOCYTES RELATIVE PERCENT (BEAKER) (test 8 % lobw=974) EOSINOPHILS RELATIVE PERCENT (BEAKER) (test 2 % zhqj=686) BASOPHILS RELATIVE PERCENT (BEAKER) (test 1 % rjhb=491) NEUTROPHILS ABSOLUTE COUNT (BEAKER) (test 8.04 K/ L 1.78-5.38 dynv=543) LYMPHOCYTES ABSOLUTE COUNT (BEAKER) (test 1.09 K/ L 1.32-3.57 xhac=875) MONOCYTES ABSOLUTE COUNT (BEAKER) (test 0.84 K/ L 0.30-0.82 bata=818) EOSINOPHILS ABSOLUTE COUNT (BEAKER) (test 0.16 K/ L 0.04-0.54 hwjg=659) BASOPHILS ABSOLUTE COUNT (BEAKER) (test 0.05 K/ L 0.01-0.08 cwca=223) IMMATURE GRANULOCYTES-RELATIVE PERCENT (BEAKER) 2 % 0-1 (test uynz=9695) CALCIUM, [id number] 06:10:00 Test Item Value Reference Range Comments CALCIUM IONIZED (BEAKER) (test unvq=363) 1.09 mmol/L 1.12-1.27 PH, BLOOD (BEAKER) (test yipy=8763) 7.41 [id number] 06:01:00 Test Item Value Reference Range Comments PHOSPHORUS (BEAKER) (test ooxi=325) 2.6 mg/dL 2.3-4.7 [id number] 06:01:00 Test Item Value Reference Range Comments MAGNESIUM (BEAKER) (test pjfc=171) 1.8 mg/dL 1.6-2.6 BASIC METABOLIC [id number] 06:01:00 Test Item Value Reference Range Comments SODIUM (BEAKER) (test 142 meq/L 136-145 nssp=315) POTASSIUM (BEAKER) (test 4.7 meq/L 3.5-5.1 rlkn=639) CHLORIDE (BEAKER) (test 106 meq/L 98-107 kgiu=775) CO2 (BEAKER) (test 28 meq/L 22-29 hpcz=879) BLOOD UREA NITROGEN 20 mg/dL 7-21 (BEAKER) (test wcbj=151) CREATININE (BEAKER) (test 0.63 mg/dL 0.57-1.25 udkx=430) GLUCOSE RANDOM (BEAKER) 190 mg/dL 70-105 (test sohv=477) CALCIUM (BEAKER) (test 8.7 mg/dL 8.4-10.2 tdct=958) EGFR (BEAKER) (test 131 mL/min/1.73 sq m ESTIMATED GFR IS NOT kpdx=7116) ACCURATE CREATININE CLEARANCE IN PREDICTING GLOMERULAR FILTRATION RATE. ESTIMATED GFR IS NOT APPLICABLE FOR DIALYSIS PATIENTS. POCT-GLUCOSE [id number] 00:28:00 Test Item Value Reference Range Comments POC-GLUCOSE METER (BEAKER) 227 mg/dL 70-110 TESTED AT [address] (test mgra=9064) [facility] [address] POCT-GLUCOSE [id number] 21:44:00 Test Item Value Reference Range Comments POC-GLUCOSE METER (BEAKER) 253 mg/dL 70-110 TESTED AT [address] (test zkng=5762) [facility] [address] POCT-GLUCOSE [id number] 17:44:00 Test Item Value Reference Range Comments POC-GLUCOSE METER (BEAKER) 222 mg/dL 70-110 TESTED AT [address] (test uyoq=6985) [facility] [address] POCT-GLUCOSE [id number] 11:50:00 Test Item Value Reference Range Comments POC-GLUCOSE METER (BEAKER) 93 mg/dL 70-110 TESTED AT [address] (test mbto=9653) [facility] [address] POCT-GLUCOSE [id number] 10:35:00 Test Item Value Reference Range Comments POC-GLUCOSE METER (BEAKER) 86 mg/dL 70-110 TESTED AT [address] (test fxah=7547) [facility] [address] POCT-GLUCOSE [id number] 09:53:00 Test Item Value Reference Range Comments POC-GLUCOSE METER (BEAKER) 60 mg/dL 70-110 Notified CATE NICHOLS/TESTED AT [facility] (test lqrp=9596) [address] [place] [address] POCT-GLUCOSE [id number] 09:18:00 Test Item Value Reference Range Comments POC-GLUCOSE METER (BEAKER) 63 mg/dL 70-110 Notified CATE NICHOLS/TESTED AT [facility] (test miei=6960) [address] [place] [address] POCT-GLUCOSE [id number] 08:48:00 Test Item Value Reference Range Comments POC-GLUCOSE METER (BEAKER) 55 mg/dL 70-110 Notified CATE NICHOLS/TESTED AT [facility] (test mvap=6337) [address] [place] [address] POCT-GLUCOSE [id number] 05:48:00 Test Item Value Reference Range Comments POC-GLUCOSE METER (BEAKER) 85 mg/dL 70-110 TESTED AT [address] (test nanq=5872) [place] [address] [id number] 05:27:00 Test Item Value Reference Range Comments PHOSPHORUS (BEAKER) (test ndlt=777) 2.4 mg/dL 2.3-4.7 [id number] 05:27:00 Test Item Value Reference Range Comments MAGNESIUM (BEAKER) (test uzci=205) 1.9 mg/dL 1.6-2.6 BASIC METABOLIC [id number] 05:27:00 Test Item Value Reference Range Comments SODIUM (BEAKER) (test 145 meq/L 136-145 elvi=759) POTASSIUM (BEAKER) (test 4.0 meq/L 3.5-5.1 zscn=496) CHLORIDE (BEAKER) (test 108 meq/L 98-107 alps=053) CO2 (BEAKER) (test 28 meq/L 22-29 qbax=756) BLOOD UREA NITROGEN 22 mg/dL 7-21 (BEAKER) (test xkdp=711) CREATININE (BEAKER) (test 0.64 mg/dL 0.57-1.25 ceyv=274) GLUCOSE RANDOM (BEAKER) 76 mg/dL 70-105 (test uovk=029) CALCIUM (BEAKER) (test 8.6 mg/dL 8.4-10.2 wlrw=857) EGFR (BEAKER) (test 128 mL/min/1.73 sq m ESTIMATED GFR IS NOT mwwr=8345) ACCURATE CREATININE CLEARANCE IN PREDICTING GLOMERULAR FILTRATION RATE. ESTIMATED GFR IS NOT APPLICABLE FOR DIALYSIS PATIENTS. CALCIUM, [id number] 05:25:00 Test Item Value Reference Range Comments CALCIUM IONIZED (BEAKER) (test qnyg=294) 1.10 mmol/L 1.12-1.27 PH, BLOOD (BEAKER) (test ophy=0403) 7.43 CBC W/PLT COUNT & AUTO [id number] 05:19:00 Test Item Value Reference Range Comments WHITE BLOOD CELL COUNT (BEAKER) (test expl=507) 10.8 K/ L 3.5-10.5 RED BLOOD CELL COUNT (BEAKER) (test njzx=526) 3.09 M/ L 4.63-6.08 HEMOGLOBIN (BEAKER) (test szzz=473) 8.7 GM/DL 13.7-17.5 HEMATOCRIT (BEAKER) (test tfng=453) 29.1 % 40.1-51.0 MEAN CORPUSCULAR VOLUME (BEAKER) (test ptqx=210) 94.2 fL 79.0-92.2 MEAN CORPUSCULAR HEMOGLOBIN (BEAKER) (test 28.2 pg 25.7-32.2 bxxf=238) MEAN CORPUSCULAR HEMOGLOBIN CONC (BEAKER) (test 29.9 GM/DL 32.3-36.5 xxrp=653) RED CELL DISTRIBUTION WIDTH (BEAKER) (test 16.1 % 11.6-14.4 whoz=679) PLATELET COUNT (BEAKER) (test wpor=645) 491 K/CU MM 150-450 MEAN PLATELET VOLUME (BEAKER) (test kehe=419) 10.3 fL 9.4-12.4 NUCLEATED RED BLOOD CELLS (BEAKER) (test 1 /100 WBC 0-0 jcjv=224) NEUTROPHILS RELATIVE PERCENT (BEAKER) (test 76 % qedu=605) LYMPHOCYTES RELATIVE PERCENT (BEAKER) (test 11 % lete=501) MONOCYTES RELATIVE PERCENT (BEAKER) (test 7 % myel=369) EOSINOPHILS RELATIVE PERCENT (BEAKER) (test 2 % fykx=230) BASOPHILS RELATIVE PERCENT (BEAKER) (test 0 % jcts=178) NEUTROPHILS ABSOLUTE COUNT (BEAKER) (test 8.17 K/ L 1.78-5.38 jitz=502) LYMPHOCYTES ABSOLUTE COUNT (BEAKER) (test 1.19 K/ L 1.32-3.57 hvcg=002) MONOCYTES ABSOLUTE COUNT (BEAKER) (test 0.71 K/ L 0.30-0.82 ydel=235) EOSINOPHILS ABSOLUTE COUNT (BEAKER) (test 0.17 K/ L 0.04-0.54 ukcj=764) BASOPHILS ABSOLUTE COUNT (BEAKER) (test 0.04 K/ L 0.01-0.08 qjty=698) IMMATURE GRANULOCYTES-RELATIVE PERCENT (BEAKER) 5 % 0-1 (test htve=5550) POCT-GLUCOSE [id number] 23:21:00 Test Item Value Reference Range Comments POC-GLUCOSE METER (BEAKER) 125 mg/dL 70-110 TESTED AT [address] (test jmql=4431) [place] [id number] POCT-GLUCOSE [id number] 22:04:00 Test Item Value Reference Range Comments POC-GLUCOSE METER (BEAKER) 116 mg/dL 70-110 TESTED AT [address] (test nmwb=8217) [place] [address] POCT-GLUCOSE [id number] 18:09:00 Test Item Value Reference Range Comments POC-GLUCOSE METER (BEAKER) 134 mg/dL 70-110 TESTED AT [address] (test cucp=6082) [place] [address] CBC W/PLT COUNT & AUTO [id number] 13:31:00 Test Item Value Reference Range Comments WHITE BLOOD CELL COUNT (BEAKER) (test iqai=130) 13.5 K/ L 3.5-10.5 RED BLOOD CELL COUNT (BEAKER) (test jjpy=275) 2.95 M/ L 4.63-6.08 HEMOGLOBIN (BEAKER) (test etzy=383) 8.2 GM/DL 13.7-17.5 HEMATOCRIT (BEAKER) (test vznl=453) 27.6 % 40.1-51.0 MEAN CORPUSCULAR VOLUME (BEAKER) (test nhpu=857) 93.6 fL 79.0-92.2 MEAN CORPUSCULAR HEMOGLOBIN (BEAKER) (test 27.8 pg 25.7-32.2 gncv=042) MEAN CORPUSCULAR HEMOGLOBIN CONC (BEAKER) (test 29.7 GM/DL 32.3-36.5 cdcv=438) RED CELL DISTRIBUTION WIDTH (BEAKER) (test 16.0 % 11.6-14.4 kbty=693) PLATELET COUNT (BEAKER) (test eogq=302) 435 K/CU MM 150-450 MEAN PLATELET VOLUME (BEAKER) (test mecx=311) 10.0 fL 9.4-12.4 NUCLEATED RED BLOOD CELLS (BEAKER) (test 1 /100 WBC 0-0 eiyq=171) NEUTROPHILS RELATIVE PERCENT (BEAKER) (test 77 % fbbe=413) LYMPHOCYTES RELATIVE PERCENT (BEAKER) (test 8 % maeu=640) MONOCYTES RELATIVE PERCENT (BEAKER) (test 6 % zwch=267) EOSINOPHILS RELATIVE PERCENT (BEAKER) (test 1 % xjgg=897) BASOPHILS RELATIVE PERCENT (BEAKER) (test 0 % zpqn=919) NEUTROPHILS ABSOLUTE COUNT (BEAKER) (test 10.34 K/ L 1.78-5.38 jhop=967) LYMPHOCYTES ABSOLUTE COUNT (BEAKER) (test 1.08 K/ L 1.32-3.57 jzkh=512) MONOCYTES ABSOLUTE COUNT (BEAKER) (test 0.82 K/ L 0.30-0.82 wedb=057) EOSINOPHILS ABSOLUTE COUNT (BEAKER) (test 0.19 K/ L 0.04-0.54 mebr=767) BASOPHILS ABSOLUTE COUNT (BEAKER) (test 0.03 K/ L 0.01-0.08 vgaf=970) IMMATURE GRANULOCYTES-RELATIVE PERCENT (BEAKER) 7 % 0-1 (test bqdk=5837) (MANUAL DIFFERENTIAL)2017-02-26 13:31:00 Test Item Value Reference Range Comments TOTAL COUNTED (BEAKER) (test qala=9862) WBC MORPHOLOGY (BEAKER) (test iyvc=727) Normal PLT MORPHOLOGY (BEAKER) (test rejs=777) Normal RBC MORPHOLOGY (BEAKER) (test hinr=436) Normal POCT-GLUCOSE [id number] 11:53:00 Test Item Value Reference Range Comments POC-GLUCOSE METER (BEAKER) 134 mg/dL 70-110 TESTED AT [address] (test evkr=4761) [place] [address] POCT-GLUCOSE [id number] 10:21:00 Test Item Value Reference Range Comments POC-GLUCOSE METER (BEAKER) 139 mg/dL 70-110 TESTED AT [address] (test qdaw=6967) [place] [address] MISCELLANEOUS LAB [id number] 09:33:00 Test Item Value Reference Range Comments SCAN RESULT (test ipec=[id number]) Result comments: NOT DETECTED Panel is negative for Bio[employer] BCID-detectable organisms. Please refer to traditional culture and sensitivity results as they become available. Other organisms and resistance markers not contained in this PCR panel cannot be excluded and follow-up of traditional culture results is required. This sample was tested at the [facility] Clinical Microbiology Laboratory using the Hosted [employer] FilmArray Blood Culture ID Panel. This test is FDA cleared for in vitro diagnostic use and hasbeen verified and approved by the [facility] Clinical Microbiology laboratory for clinical use. ReferenceRange: Not DetectedPOCT-GLUCOSE [id number] 08:42:00 Test Item Value Reference Range Comments POC-GLUCOSE METER (BEAKER) 134 mg/dL 70-110 TESTED AT [address] (test curi=8149) [place] [address] POCT-GLUCOSE [id number] 07:08:00 Test Item Value Reference Range Comments POC-GLUCOSE METER (BEAKER) 186 mg/dL 70-110 TESTED AT [address] (test vrnl=0922) [place] [address] [id number] 03:34:00 Test Item Value Reference Range Comments PHOSPHORUS (BEAKER) (test kofs=544) 2.7 mg/dL 2.3-4.7 [id number] 03:34:00 Test Item Value Reference Range Comments MAGNESIUM (BEAKER) (test unng=570) 1.8 mg/dL 1.6-2.6 BASIC METABOLIC [id number] 03:34:00 Test Item Value Reference Range Comments SODIUM (BEAKER) (test 142 meq/L 136-145 mxdn=231) POTASSIUM (BEAKER) (test 4.4 meq/L 3.5-5.1 rwvv=061) CHLORIDE (BEAKER) (test 108 meq/L 98-107 oajm=848) CO2 (BEAKER) (test 27 meq/L 22-29 mogx=635) BLOOD UREA NITROGEN 21 mg/dL 7-21 (BEAKER) (test atvz=243) CREATININE (BEAKER) (test 0.66 mg/dL 0.57-1.25 nnvy=740) GLUCOSE RANDOM (BEAKER) 196 mg/dL 70-105 (test hsrr=151) CALCIUM (BEAKER) (test 8.5 mg/dL 8.4-10.2 qewp=115) EGFR (BEAKER) (test 124 mL/min/1.73 sq m ESTIMATED GFR IS NOT auij=9889) ACCURATE CREATININE CLEARANCE IN PREDICTING GLOMERULAR FILTRATION RATE. ESTIMATED GFR IS NOT APPLICABLE FOR DIALYSIS PATIENTS. CALCIUM, [id number] 03:06:00 Test Item Value Reference Range Comments CALCIUM IONIZED (BEAKER) (test yrhb=774) 1.17 mmol/L 1.12-1.27 PH, BLOOD (BEAKER) (test szfz=6524) 7.40 POCT-GLUCOSE [id number] 00:45:00 Test Item Value Reference Range Comments POC-GLUCOSE METER (BEAKER) 152 mg/dL 70-110 TESTED AT [address] (test pqtj=2580) [facility] [address] POCT-GLUCOSE [id number] 21:46:00 Test Item Value Reference Range Comments POC-GLUCOSE METER (BEAKER) 84 mg/dL 70-110 TESTED AT [address] (test cejx=8970) [facility] [address] POCT-GLUCOSE [id number] 18:27:00 Test Item Value Reference Range Comments POC-GLUCOSE METER (BEAKER) 97 mg/dL 70-110 TESTED AT [address] (test paxa=4794) [facility] [address] RAD, ABDOMEN/KUB, 1 VIEW [id number] 15:20:00Reason for exam:->Dobbhoff placement verification Should this be performed at the bedside?->YesFINAL REPORT INDICATION: Feeding tube placement. 1 view of the abdomen. COMPARISON: 02/24/2017 IMPRESSION: The feeding tube terminates in the distal stomach. The bowel gas pattern is nonspecific. Signed: Neil Tinsley MDReport Verified Date/Time: 02/25/2017 15:20:50 Reading Location: [address] Consult Reading Room POCT-GLUCOSE [id number] 12:54:00 Test Item Value Reference Range Comments POC-GLUCOSE METER (BEAKER) 156 mg/dL 70-110 TESTED AT [address] (test yali=3306) [place] [id number] CBC W/PLT COUNT & AUTO [id number] 11:22:00 Test Item Value Reference Range Comments WHITE BLOOD CELL COUNT (BEAKER) (test mxmy=959) 12.6 K/ L 3.5-10.5 RED BLOOD CELL COUNT (BEAKER) (test jhhs=781) 2.77 M/ L 4.63-6.08 HEMOGLOBIN (BEAKER) (test gkkn=488) 7.7 GM/DL 13.7-17.5 HEMATOCRIT (BEAKER) (test iyke=497) 26.2 % 40.1-51.0 MEAN CORPUSCULAR VOLUME (BEAKER) (test vjsy=732) 94.6 fL 79.0-92.2 MEAN CORPUSCULAR HEMOGLOBIN (BEAKER) (test 27.8 pg 25.7-32.2 jref=816) MEAN CORPUSCULAR HEMOGLOBIN CONC (BEAKER) (test 29.4 GM/DL 32.3-36.5 ybkd=590) RED CELL DISTRIBUTION WIDTH (BEAKER) (test 15.8 % 11.6-14.4 jepg=181) PLATELET COUNT (BEAKER) (test pnlq=876) 440 K/CU MM 150-450 MEAN PLATELET VOLUME (BEAKER) (test tzyc=694) 10.3 fL 9.4-12.4 NUCLEATED RED BLOOD CELLS (BEAKER) (test 3 /100 WBC 0-0 vsno=076) IMMATURE GRANULOCYTES-RELATIVE PERCENT (BEAKER) 10 % 0-1 (test zfvv=7952) (MANUAL DIFFERENTIAL)2017-02-25 11:22:00 Test Item Value Reference Range Comments NEUTROPHILS - REL (DIFF) (BEAKER) (test 76 % ffnr=4601) LYMPHOCYTES - REL (DIFF) (BEAKER) (test 7 % spey=9703) MONOCYTES - REL (DIFF) (BEAKER) (test xcck=1931) 3 % EOSINOPHILS - REL (DIFF) (BEAKER) (test 6 % niog=9921) BASOPHILS - REL (DIFF) (BEAKER) (test fezd=8673) 0 % METAMYELOCYTES-REL (DIFF) (BEAKER) (test 2 % 0-0 fsbv=633) MYELOCYTES-REL (DIFF) (BEAKER) (test cdgs=5620) 4 % 0-0 BANDS - REL (DIFF) (BEAKER) (test ryuk=5481) 2 % 0-10 NEUTROPHILS - ABS (DIFF) (BEAKER) (test 9.58 K/ L 1.80-8.00 okjk=0639) LYMPHOCYTES - ABS (DIFF) (BEAKER) (test 0.88 K/ L 1.48-4.50 jzsc=3206) MONOCYTES - ABS (DIFF) (BEAKER) (test urbo=5771) 0.38 K/ L 0.00-1.30 EOSINOPHILS - ABS (DIFF) (BEAKER) (test 0.76 K/ L 0.00-0.50 pibq=0352) BASOPHILS - ABS (DIFF) (BEAKER) (test rziy=1664) 0.00 K/ L 0.00-0.20 METAMYELOCTYES - ABS (DIFF) (BEAKER) (test 0.25 K/ L 0.00-0.00 dqrh=602) BANDS-ABS (DIFF) (BEAKER) (test dbhn=7385) 0.3 K/ L 0.0-0.8 MYELOCYTES-ABS (DIFF) (BEAKER) (test lznr=3141) 0.50 K/ L 0.00-0.00 TOTAL COUNTED (BEAKER) (test hekl=4967) 100 BANDS + SEGMENTED NEUTROPHILS (BEAKER) (test 9.83 lken=6197) MANUAL NRBC PER 100 CELLS (BEAKER) (test 2 /100 WBC 0-0 vlhb=4737) WBC MORPHOLOGY (BEAKER) (test ocez=955) Normal PLT MORPHOLOGY (BEAKER) (test vwbl=235) Normal POIKILOCYTES (BEAKER) (test kxqr=482) 1+ few POLYCHROMATOPHILLIC RBCS(BEAKER) (test gsan=360) 1+ few SPHEROCYTES (BEAKER) (test iqrj=273) 1+ few POCT-GLUCOSE [id number] 09:09:00 Test Item Value Reference Range Comments POC-GLUCOSE METER (BEAKER) 147 mg/dL 70-110 TESTED AT [address] (test fxwi=7803) [facility] [address] POCT-GLUCOSE [id number] 06:49:00 Test Item Value Reference Range Comments POC-GLUCOSE METER (BEAKER) 83 mg/dL 70-110 TESTED AT [address] (test tarz=2992) [facility] [address] CALCIUM, [id number] 05:22:00 Test Item Value Reference Range Comments CALCIUM IONIZED (BEAKER) (test ptin=839) 1.14 mmol/L 1.12-1.27 PH, BLOOD (BEAKER) (test fzpj=4682) 7.37 [id number] 04:49:00 Test Item Value Reference Range Comments PHOSPHORUS (BEAKER) (test ldhp=014) 2.4 mg/dL 2.3-4.7 [id number] 04:49:00 Test Item Value Reference Range Comments MAGNESIUM (BEAKER) (test lzve=371) 1.9 mg/dL 1.6-2.6 BASIC METABOLIC [id number] 04:49:00 Test Item Value Reference Range Comments SODIUM (BEAKER) (test 141 meq/L 136-145 sxnj=475) POTASSIUM (BEAKER) (test 4.1 meq/L 3.5-5.1 urdb=334) CHLORIDE (BEAKER) (test 110 meq/L 98-107 gwpl=035) CO2 (BEAKER) (test 26 meq/L 22-29 oydd=056) BLOOD UREA NITROGEN 24 mg/dL 7-21 (BEAKER) (test degi=869) CREATININE (BEAKER) (test 0.66 mg/dL 0.57-1.25 lzdi=940) GLUCOSE RANDOM (BEAKER) 113 mg/dL 70-105 (test uklz=366) CALCIUM (BEAKER) (test 8.5 mg/dL 8.4-10.2 excp=137) EGFR (BEAKER) (test 124 mL/min/1.73 sq m ESTIMATED GFR IS NOT wgsf=1600) ACCURATE CREATININE CLEARANCE IN PREDICTING GLOMERULAR FILTRATION RATE. ESTIMATED GFR IS NOT APPLICABLE FOR DIALYSIS PATIENTS. POCT-GLUCOSE [id number] 00:12:00 Test Item Value Reference Range Comments POC-GLUCOSE METER (BEAKER) 182 mg/dL 70-110 TESTED AT [address] (test krha=3160) [place] [id number] POCT-GLUCOSE [id number] 20:53:00 Test Item Value Reference Range Comments POC-GLUCOSE METER (BEAKER) 203 mg/dL 70-110 TESTED AT [address] (test emqf=6780) [place] [id number] POCT-GLUCOSE [id number] 18:25:00 Test Item Value Reference Range Comments POC-GLUCOSE METER (BEAKER) 216 mg/dL 70-110 TESTED AT [address] (test avki=9611) [facility] [address] BLOOD [id number] 17:00:00 Test Item Value Reference Range Comments CULTURE (BEAKER) (test xioe=7899) No growth in 5 days BLOOD [id number] 17:00:00 Test Item Value Reference Range Comments CULTURE (BEAKER) (test rtim=9830) No growth in 5 days POCT-GLUCOSE [id number] 12:38:00 Test Item Value Reference Range Comments POC-GLUCOSE METER (BEAKER) 197 mg/dL 70-110 TESTED AT [address] (test axio=6615) [facility] [address] RAD, ABDOMEN/KUB, 1 VIEW [id number] 12:28:00Reason for exam:->dobhoff tube placementFINAL REPORT INDICATION: Feeding tube placement. 1 view of the abdomen. COMPARISON: No prior studies available for comparison IMPRESSION: The feeding tube terminates in the distal stomach at the gastroduodenal junction. The bowel gas pattern is nonspecific. Signed: Neil Tinsley MDReport Verified Date/Time: 02/24/2017 12:28:45 Reading Location: [facility] B1 [id number] Ortho Consult ReadingRoom CBC W/PLT COUNT & AUTO [id number] 12: 04:00 Test Item Value Reference Range Comments WHITE BLOOD CELL COUNT (BEAKER) (test yquq=628) 11.5 K/ L 3.5-10.5 RED BLOOD CELL COUNT (BEAKER) (test wzrj=932) 2.80 M/ L 4.63-6.08 HEMOGLOBIN (BEAKER) (test mvur=399) 7.8 GM/DL 13.7-17.5 HEMATOCRIT (BEAKER) (test ycqo=162) 26.3 % 40.1-51.0 MEAN CORPUSCULAR VOLUME (BEAKER) (test nbol=887) 93.9 fL 79.0-92.2 MEAN CORPUSCULAR HEMOGLOBIN (BEAKER) (test 27.9 pg 25.7-32.2 kwxp=752) MEAN CORPUSCULAR HEMOGLOBIN CONC (BEAKER) (test 29.7 GM/DL 32.3-36.5 miln=768) RED CELL DISTRIBUTION WIDTH (BEAKER) (test 15.5 % 11.6-14.4 zvfy=301) PLATELET COUNT (BEAKER) (test tlxj=318) 407 K/CU MM 150-450 MEAN PLATELET VOLUME (BEAKER) (test gskr=634) 10.6 fL 9.4-12.4 NUCLEATED RED BLOOD CELLS (BEAKER) (test 3 /100 WBC 0-0 cykd=555) IMMATURE GRANULOCYTES-RELATIVE PERCENT (BEAKER) 12 % 0-1 (test rgby=0760) (MANUAL DIFFERENTIAL)2017-02-24 12:04:00 Test Item Value Reference Range Comments NEUTROPHILS - REL (DIFF) (BEAKER) (test 63 % hehn=4063) LYMPHOCYTES - REL (DIFF) (BEAKER) (test 12 % tkwp=7543) MONOCYTES - REL (DIFF) (BEAKER) (test xxkg=5793) 8 % EOSINOPHILS - REL (DIFF) (BEAKER) (test 2 % guuc=4000) BASOPHILS - REL (DIFF) (BEAKER) (test oldy=6525) 2 % METAMYELOCYTES-REL (DIFF) (BEAKER) (test 3 % 0-0 ttxh=249) BANDS - REL (DIFF) (BEAKER) (test aimk=8582) 10 % 0-10 NEUTROPHILS - ABS (DIFF) (BEAKER) (test 7.25 K/ L 1.80-8.00 xjul=4261) LYMPHOCYTES - ABS (DIFF) (BEAKER) (test 1.38 K/ L 1.48-4.50 jkbg=6948) MONOCYTES - ABS (DIFF) (BEAKER) (test lnvs=0480) 0.92 K/ L 0.00-1.30 EOSINOPHILS - ABS (DIFF) (BEAKER) (test 0.23 K/ L 0.00-0.50 nwbq=0027) BASOPHILS - ABS (DIFF) (BEAKER) (test diqm=2782) 0.23 K/ L 0.00-0.20 METAMYELOCTYES - ABS (DIFF) (BEAKER) (test 0.35 K/ L 0.00-0.00 fhkv=958) BANDS-ABS (DIFF) (BEAKER) (test ecso=9234) 1.2 K/ L 0.0-0.8 TOTAL COUNTED (BEAKER) (test hdha=3852) 100 BANDS + SEGMENTED NEUTROPHILS (BEAKER) (test 8.40 srii=2720) MANUAL NRBC PER 100 CELLS (BEAKER) (test 1 /100 WBC 0-0 swor=3683) WBC MORPHOLOGY (BEAKER) (test jmoj=950) Normal CLUMPED PLATELETS (BEAKER) (test nzef=303) Present HYPOCHROMIA (BEAKER) (test pqie=220) 1+ few SPHEROCYTES (BEAKER) (test vhjv=678) 1+ few POCT-GLUCOSE [id number] 06:03:00 Test Item Value Reference Range Comments POC-GLUCOSE METER (BEAKER) 175 mg/dL 70-110 TESTED AT [facility] [address] [facility] [facility] (test tmkq=5423) [facility] [address] [id number] 04:38:00 Test Item Value Reference Range Comments PHOSPHORUS (BEAKER) (test mebf=255) 2.5 mg/dL 2.3-4.7 [id number] 04:38:00 Test Item Value Reference Range Comments MAGNESIUM (BEAKER) (test tjwt=922) 1.9 mg/dL 1.6-2.6 BASIC METABOLIC [id number] 04:38:00 Test Item Value Reference Range Comments SODIUM (BEAKER) (test 142 meq/L 136-145 sjbv=332) POTASSIUM (BEAKER) (test 4.5 meq/L 3.5-5.1 hqts=868) CHLORIDE (BEAKER) (test 111 meq/L 98-107 afcl=469) CO2 (BEAKER) (test 24 meq/L 22-29 mlul=086) BLOOD UREA NITROGEN 29 mg/dL 7-21 (BEAKER) (test ufyl=908) CREATININE (BEAKER) (test 0.73 mg/dL 0.57-1.25 nuep=191) GLUCOSE RANDOM (BEAKER) 222 mg/dL 70-105 (test tfdc=337) CALCIUM (BEAKER) (test 8.2 mg/dL 8.4-10.2 igbi=121) EGFR (BEAKER) (test 110 mL/min/1.73 sq m ESTIMATED GFR IS NOT ntfk=0862) ACCURATE CREATININE CLEARANCE IN PREDICTING GLOMERULAR FILTRATION RATE. ESTIMATED GFR IS NOT APPLICABLE FOR DIALYSIS PATIENTS. CALCIUM, [id number] 03:11:00 Test Item Value Reference Range Comments CALCIUM IONIZED (BEAKER) (test nsga=029) 1.05 mmol/L 1.12-1.27 PH, BLOOD (BEAKER) (test asbd=5550) 7.38 POCT-GLUCOSE [id number] 01:05:00 Test Item Value Reference Range Comments POC-GLUCOSE METER (BEAKER) 231 mg/dL 70-110 TESTED AT [address] (test kscq=1608) [facility] [address] POCT-GLUCOSE [id number] 18:18:00 Test Item Value Reference Range Comments POC-GLUCOSE METER (BEAKER) 226 mg/dL 70-110 TESTED AT [address] (test pwtm=5704) [facility] [address] CBC W/PLT COUNT & AUTO [id number] 14:44:00 Test Item Value Reference Range Comments WHITE BLOOD CELL COUNT (BEAKER) (test dnzq=419) 13.3 K/ L 3.5-10.5 RED BLOOD CELL COUNT (BEAKER) (test dazo=342) 2.87 M/ L 4.63-6.08 HEMOGLOBIN (BEAKER) (test kadd=187) 8.0 GM/DL 13.7-17.5 HEMATOCRIT (BEAKER) (test lcbs=405) 27.4 % 40.1-51.0 MEAN CORPUSCULAR VOLUME (BEAKER) (test yyqj=704) 95.5 fL 79.0-92.2 MEAN CORPUSCULAR HEMOGLOBIN (BEAKER) (test 27.9 pg 25.7-32.2 udmi=014) MEAN CORPUSCULAR HEMOGLOBIN CONC (BEAKER) (test 29.2 GM/DL 32.3-36.5 cewm=431) RED CELL DISTRIBUTION WIDTH (BEAKER) (test 15.2 % 11.6-14.4 dnba=544) PLATELET COUNT (BEAKER) (test gwkx=436) 441 K/CU MM 150-450 MEAN PLATELET VOLUME (BEAKER) (test milz=276) 10.5 fL 9.4-12.4 NUCLEATED RED BLOOD CELLS (BEAKER) (test 3 /100 WBC 0-0 osow=024) NEUTROPHILS RELATIVE PERCENT (BEAKER) (test 69 % qwcm=386) LYMPHOCYTES RELATIVE PERCENT (BEAKER) (test 11 % ller=753) MONOCYTES RELATIVE PERCENT (BEAKER) (test 8 % becp=290) EOSINOPHILS RELATIVE PERCENT (BEAKER) (test 3 % znkx=423) BASOPHILS RELATIVE PERCENT (BEAKER) (test 0 % lcpp=082) NEUTROPHILS ABSOLUTE COUNT (BEAKER) (test 9.12 K/ L 1.78-5.38 dddx=854) LYMPHOCYTES ABSOLUTE COUNT (BEAKER) (test 1.48 K/ L 1.32-3.57 emoj=511) MONOCYTES ABSOLUTE COUNT (BEAKER) (test 1.03 K/ L 0.30-0.82 rvno=422) EOSINOPHILS ABSOLUTE COUNT (BEAKER) (test 0.36 K/ L 0.04-0.54 iqhb=832) BASOPHILS ABSOLUTE COUNT (BEAKER) (test 0.03 K/ L 0.01-0.08 rsba=054) IMMATURE GRANULOCYTES-RELATIVE PERCENT (BEAKER) 10 % 0-1 (test wkpm=2221) (MANUAL DIFFERENTIAL)2017-02-23 14:44:00 Test Item Value Reference Range Comments NEUTROPHILS - REL (DIFF) (BEAKER) (test 62 % yfgc=9924) LYMPHOCYTES - REL (DIFF) (BEAKER) (test 8 % siaq=7722) MONOCYTES - REL (DIFF) (BEAKER) (test ywia=8293) 8 % EOSINOPHILS - REL (DIFF) (BEAKER) (test 6 % ymfw=7401) METAMYELOCYTES-REL (DIFF) (BEAKER) (test 4 % 0-0 evkz=109) BANDS - REL (DIFF) (BEAKER) (test utzw=2147) 12 % 0-10 NEUTROPHILS - ABS (DIFF) (BEAKER) (test 8.25 K/ L 1.80-8.00 ictb=8625) LYMPHOCYTES - ABS (DIFF) (BEAKER) (test 1.06 K/ L 1.48-4.50 zycz=1245) MONOCYTES - ABS (DIFF) (BEAKER) (test rrpr=5096) 1.06 K/ L 0.00-1.30 EOSINOPHILS - ABS (DIFF) (BEAKER) (test 0.80 K/ L 0.00-0.50 ttzz=5694) METAMYELOCTYES - ABS (DIFF) (BEAKER) (test 0.53 K/ L 0.00-0.00 dffw=927) BANDS-ABS (DIFF) (BEAKER) (test patf=1094) 1.6 K/ L 0.0-0.8 TOTAL COUNTED (BEAKER) (test jsgn=1921) 100 BANDS + SEGMENTED NEUTROPHILS (BEAKER) (test 9.84 qfnl=8624) MANUAL NRBC PER 100 CELLS (BEAKER) (test 2 /100 WBC 0-0 frsr=5059) WBC MORPHOLOGY (BEAKER) (test mmhv=208) Normal LARGE PLT(BEAKER) (test iddb=0722) Present ANISOCYTOSIS (BEAKER) (test pdvm=591) 1+ few HYPOCHROMIA (BEAKER) (test ntfb=179) 2+ moderate POIKILOCYTES (BEAKER) (test bxro=468) 1+ few POLYCHROMATOPHILLIC RBCS(BEAKER) (test fxue=729) 1+ few POCT-GLUCOSE [id number] 13:32:00 Test Item Value Reference Range Comments POC-GLUCOSE METER (BEAKER) 255 mg/dL 70-110 TESTED AT [facility] [address] [facility] [facility] (test hglp=9226) [facility] [address] POCT-GLUCOSE [id number] 06:12:00 Test Item Value Reference Range Comments POC-GLUCOSE METER (BEAKER) 110 mg/dL 70-110 TESTED AT [facility] [address] [facility] (test cxrf=8113) [facility] [address] [id number] 06:02:00 Test Item Value Reference Range Comments PHOSPHORUS (BEAKER) (test cnbo=440) 2.8 mg/dL 2.3-4.7 [id number] 06:02:00 Test Item Value Reference Range Comments MAGNESIUM (BEAKER) (test jvxm=064) 2.0 mg/dL 1.6-2.6 BASIC METABOLIC [id number] 06:02:00 Test Item Value Reference Range Comments SODIUM (BEAKER) (test 144 meq/L 136-145 xjjh=423) POTASSIUM (BEAKER) (test 4.3 meq/L 3.5-5.1 uvup=203) CHLORIDE (BEAKER) (test 112 meq/L 98-107 ixli=391) CO2 (BEAKER) (test 24 meq/L 22-29 yodp=191) BLOOD UREA NITROGEN 34 mg/dL 7-21 (BEAKER) (test dmwq=999) CREATININE (BEAKER) (test 0.74 mg/dL 0.57-1.25 ibnk=063) GLUCOSE RANDOM (BEAKER) 114 mg/dL 70-105 (test txct=609) CALCIUM (BEAKER) (test 8.5 mg/dL 8.4-10.2 iyrk=891) EGFR (BEAKER) (test 109 mL/min/1.73 sq m ESTIMATED GFR IS NOT hjaj=6086) ACCURATE CREATININE CLEARANCE IN PREDICTING GLOMERULAR FILTRATION RATE. ESTIMATED GFR IS NOT APPLICABLE FOR DIALYSIS PATIENTS. CALCIUM, [id number] 05:00:00 Test Item Value Reference Range Comments CALCIUM IONIZED (BEAKER) (test dgfw=558) 1.11 mmol/L 1.12-1.27 PH, BLOOD (BEAKER) (test tlgo=5068) 7.39 POCT-GLUCOSE [id number] 00:28:00 Test Item Value Reference Range Comments POC-GLUCOSE METER (BEAKER) 140 mg/dL 70-110 TESTED AT [address] (test bxjv=0675) [facility] [address] POCT-GLUCOSE [id number] 22:51:00 Test Item Value Reference Range Comments POC-GLUCOSE METER (BEAKER) 195 mg/dL 70-110 TESTED AT [address] (test qprq=0226) [facility] [address] POCT-GLUCOSE [id number] 18:32:00 Test Item Value Reference Range Comments POC-GLUCOSE METER (BEAKER) 157 mg/dL 70-110 TESTED AT [address] (test veok=7483) [place] [id number] POCT-GLUCOSE [id number] 11:47:00 Test Item Value Reference Range Comments POC-GLUCOSE METER (BEAKER) 174 mg/dL 70-110 TESTED AT [address] (test ifcu=1066) [place] [address] [id number] 10:16:00 Test Item Value Reference Range Comments SODIUM (BEAKER) (test nzzx=761) 149 meq/L 136-145 TROPONIN [id number] 07:56:00 Test Item Value Reference Range Comments TROPONIN I (BEAKER) (test iuex=492) < ng/mL 0.00-0.03 Troponin I (TnI) levels [...] and persistent tachyarrhythmia.CBC W/PLT COUNT & AUTO [id number] 06:46:00 Test Item Value Reference Range Comments WHITE BLOOD CELL COUNT (BEAKER) (test kuuo=899) 12.8 K/ L 3.5-10.5 RED BLOOD CELL COUNT (BEAKER) (test snva=672) 2.84 M/ L 4.63-6.08 HEMOGLOBIN (BEAKER) (test ahlc=972) 7.9 GM/DL 13.7-17.5 HEMATOCRIT (BEAKER) (test wibc=889) 26.9 % 40.1-51.0 MEAN CORPUSCULAR VOLUME (BEAKER) (test weqn=278) 94.7 fL 79.0-92.2 MEAN CORPUSCULAR HEMOGLOBIN (BEAKER) (test 27.8 pg 25.7-32.2 rhwt=725) MEAN CORPUSCULAR HEMOGLOBIN CONC (BEAKER) (test 29.4 GM/DL 32.3-36.5 fayo=303) RED CELL DISTRIBUTION WIDTH (BEAKER) (test 15.0 % 11.6-14.4 jgqy=793) PLATELET COUNT (BEAKER) (test qajn=164) 447 K/CU MM 150-450 MEAN PLATELET VOLUME (BEAKER) (test bmvk=594) 10.3 fL 9.4-12.4 NUCLEATED RED BLOOD CELLS (BEAKER) (test 3 /100 WBC 0-0 vdly=723) IMMATURE GRANULOCYTES-RELATIVE PERCENT (BEAKER) 9 % 0-1 (test akhv=0894) (MANUAL DIFFERENTIAL)2017-02-22 06:46:00 Test Item Value Reference Range Comments NEUTROPHILS - REL (DIFF) (BEAKER) (test 70 % jhlf=7776) LYMPHOCYTES - REL (DIFF) (BEAKER) (test 12 % dnct=4498) MONOCYTES - REL (DIFF) (BEAKER) (test sheh=9723) 5 % EOSINOPHILS - REL (DIFF) (BEAKER) (test 4 % jotx=2561) BASOPHILS - REL (DIFF) (BEAKER) (test alid=8417) 0 % METAMYELOCYTES-REL (DIFF) (BEAKER) (test 2 % 0-0 sequ=126) MYELOCYTES-REL (DIFF) (BEAKER) (test ntcq=3620) 4 % 0-0 BANDS - REL (DIFF) (BEAKER) (test qpvd=3878) 3 % 0-10 NEUTROPHILS - ABS (DIFF) (BEAKER) (test 8.96 K/ L 1.80-8.00 umpr=7864) LYMPHOCYTES - ABS (DIFF) (BEAKER) (test 1.54 K/ L 1.48-4.50 wmuc=4112) MONOCYTES - ABS (DIFF) (BEAKER) (test vdmd=3465) 0.64 K/ L 0.00-1.30 EOSINOPHILS - ABS (DIFF) (BEAKER) (test 0.51 K/ L 0.00-0.50 cyxp=7631) BASOPHILS - ABS (DIFF) (BEAKER) (test qugj=7502) 0.00 K/ L 0.00-0.20 METAMYELOCTYES - ABS (DIFF) (BEAKER) (test 0.26 K/ L 0.00-0.00 ykfz=782) BANDS-ABS (DIFF) (BEAKER) (test mhai=7843) 0.4 K/ L 0.0-0.8 MYELOCYTES-ABS (DIFF) (BEAKER) (test zfst=6704) 0.51 K/ L 0.00-0.00 TOTAL COUNTED (BEAKER) (test hlwj=0831) 100 BANDS + SEGMENTED NEUTROPHILS (BEAKER) (test 9.34 oznt=4245) MANUAL NRBC PER 100 CELLS (BEAKER) (test 6 /100 WBC 0-0 dydc=6601) WBC MORPHOLOGY (BEAKER) (test hzsk=010) Normal CLUMPED PLATELETS (BEAKER) (test isos=559) Present POLYCHROMATOPHILLIC RBCS(BEAKER) (test injt=704) 2+ moderate POCT-GLUCOSE [id number] 05:22:00 Test Item Value Reference Range Comments POC-GLUCOSE METER (BEAKER) 190 mg/dL 70-110 TESTED AT [address] (test dliu=4914) [facility] [address] CALCIUM, [id number] 05:14:00 Test Item Value Reference Range Comments CALCIUM IONIZED (BEAKER) (test vaun=518) 1.09 mmol/L 1.12-1.27 PH, BLOOD (BEAKER) (test kzan=0511) 7.41 POCT-GLUCOSE [id number] 05:08:00 Test Item Value Reference Range Comments POC-GLUCOSE METER (BEAKER) 226 mg/dL 70-110 TESTED AT [address] (test dlci=0712) [facility] [address] [id number] 04:18:00 Test Item Value Reference Range Comments PHOSPHORUS (BEAKER) (test zscx=277) 3.0 mg/dL 2.3-4.7 [id number] 04:18:00 Test Item Value Reference Range Comments MAGNESIUM (BEAKER) (test yjiw=534) 2.2 mg/dL 1.6-2.6 BASIC METABOLIC [id number] 04:18:00 Test Item Value Reference Range Comments SODIUM (BEAKER) (test 148 meq/L 136-145 hoow=586) POTASSIUM (BEAKER) (test 4.2 meq/L 3.5-5.1 gpup=401) CHLORIDE (BEAKER) (test 116 meq/L 98-107 toge=114) CO2 (BEAKER) (test 24 meq/L 22-29 avrq=442) BLOOD UREA NITROGEN 42 mg/dL 7-21 (BEAKER) (test poun=862) CREATININE (BEAKER) (test 0.86 mg/dL 0.57-1.25 lapg=212) GLUCOSE RANDOM (BEAKER) 180 mg/dL 70-105 (test wnyb=599) CALCIUM (BEAKER) (test 8.4 mg/dL 8.4-10.2 tcoq=676) EGFR (BEAKER) (test 91 mL/min/1.73 sq m ESTIMATED GFR IS NOT lonr=7212) ACCURATE CREATININE CLEARANCE IN PREDICTING GLOMERULAR FILTRATION RATE. ESTIMATED GFR IS NOT APPLICABLE FOR DIALYSIS PATIENTS. BLOOD GAS, [id number] 22:05:00 Test Item Value Reference Range Comments PH ARTERIAL (BEAKER) (test ryjt=138) 7.45 7.35-7.45 PCO2 ARTERIAL (BEAKER) (test aeph=241) 35 mmHg 35-45 PO2 ARTERIAL (BEAKER) (test qzir=827) 114 mmHg 80-90 O2 SATURATION ARTERIAL (BEAKER) (test hosd=915) 98.4 % 96.0-97.0 HCO3 ARTERIAL (BEAKER) (test qvpl=518) 24 mmol/L 21-29 BASE EXCESS ARTERIAL (BEAKER) (test qgpc=416) 0.1 mmol/L -2.0-3.0 PATIENT TEMPERATURE (BEAKER) (test qycw=3196) 37.0 C FIO2 (BEAKER) (test kewq=1677) 40.0 % POCT-GLUCOSE [id number] 21:58:00 Test Item Value Reference Range Comments POC-GLUCOSE METER (BEAKER) 195 mg/dL 70-110 TESTED AT [facility] [address] [facility] (test npeq=4023) [facility] [address] [id number] 19:48:00 Test Item Value Reference Range Comments SODIUM (BEAKER) (test veci=150) 148 meq/L 136-145 POCT-GLUCOSE [id number] 17:38:00 Test Item Value Reference Range Comments POC-GLUCOSE METER (BEAKER) 241 mg/dL 70-110 TESTED AT [facility] [address] [facility] (test ywgj=6367) [facility] [address] CBC W/PLT COUNT & AUTO [id number] 14:47:00 Test Item Value Reference Range Comments WHITE BLOOD CELL COUNT (BEAKER) (test rkbb=642) 13.4 K/ L 3.5-10.5 RED BLOOD CELL COUNT (BEAKER) (test jpgj=301) 2.92 M/ L 4.63-6.08 HEMOGLOBIN (BEAKER) (test czss=841) 8.2 GM/DL 13.7-17.5 HEMATOCRIT (BEAKER) (test vrxz=706) 27.8 % 40.1-51.0 MEAN CORPUSCULAR VOLUME (BEAKER) (test eoqb=366) 95.2 fL 79.0-92.2 MEAN CORPUSCULAR HEMOGLOBIN (BEAKER) (test 28.1 pg 25.7-32.2 dozu=457) MEAN CORPUSCULAR HEMOGLOBIN CONC (BEAKER) (test 29.5 GM/DL 32.3-36.5 dwrv=236) RED CELL DISTRIBUTION WIDTH (BEAKER) (test 15.0 % 11.6-14.4 dvww=719) PLATELET COUNT (BEAKER) (test juqo=731) 424 K/CU MM 150-450 MEAN PLATELET VOLUME (BEAKER) (test aeum=930) 10.3 fL 9.4-12.4 NUCLEATED RED BLOOD CELLS (BEAKER) (test 3 /100 WBC 0-0 zghg=024) IMMATURE GRANULOCYTES-RELATIVE PERCENT (BEAKER) 7 % 0-1 (test qamu=1669) (MANUAL DIFFERENTIAL)2017-02-21 14:47:00 Test Item Value Reference Range Comments NEUTROPHILS - REL (DIFF) (BEAKER) (test 71 % yxxm=3057) LYMPHOCYTES - REL (DIFF) (BEAKER) (test 11 % wodi=8405) MONOCYTES - REL (DIFF) (BEAKER) (test memx=2078) 4 % EOSINOPHILS - REL (DIFF) (BEAKER) (test 3 % chmi=5564) BASOPHILS - REL (DIFF) (BEAKER) (test ckyl=5790) 0 % METAMYELOCYTES-REL (DIFF) (BEAKER) (test 1 % 0-0 snhf=540) MYELOCYTES-REL (DIFF) (BEAKER) (test pixf=6379) 1 % 0-0 PROMYELOCYTES-REL (DIFF) (BEAKER) (test cfzy=840) 1 % 0-0 BANDS - REL (DIFF) (BEAKER) (test nlll=6160) 8 % 0-10 NEUTROPHILS - ABS (DIFF) (BEAKER) (test 9.51 K/ L 1.80-8.00 xagm=9943) LYMPHOCYTES - ABS (DIFF) (BEAKER) (test 1.47 K/ L 1.48-4.50 kwtp=9669) MONOCYTES - ABS (DIFF) (BEAKER) (test terg=5342) 0.54 K/ L 0.00-1.30 EOSINOPHILS - ABS (DIFF) (BEAKER) (test 0.40 K/ L 0.00-0.50 jnku=0423) BASOPHILS - ABS (DIFF) (BEAKER) (test zaos=2874) 0.00 K/ L 0.00-0.20 METAMYELOCTYES - ABS (DIFF) (BEAKER) (test 0.13 K/ L 0.00-0.00 npyu=175) PROMYELOCYTES - ABS (DIFF) (BEAKER) (test 0.13 K/ L 0.00-0.00 ciet=629) BANDS-ABS (DIFF) (BEAKER) (test qaln=4911) 1.1 K/ L 0.0-0.8 MYELOCYTES-ABS (DIFF) (BEAKER) (test vgiu=0535) 0.13 K/ L 0.00-0.00 TOTAL COUNTED (BEAKER) (test bghb=7725) 100 BANDS + SEGMENTED NEUTROPHILS (BEAKER) (test 10.59 odon=8332) MANUAL NRBC PER 100 CELLS (BEAKER) (test 3 /100 WBC 0-0 dsaw=1635) WBC MORPHOLOGY (BEAKER) (test fkmv=371) Normal RBC MORPHOLOGY (BEAKER) (test ycik=998) Normal LARGE PLT(BEAKER) (test rxou=7896) Present DIGOXIN [id number] 12:47:00 Test Item Value Reference Range Comments DIGOXIN LEVEL (BEAKER) (test fifi=861) 0.9 ng/mL 0.8-2.0 POCT-GLUCOSE [id number] 12:25:00 Test Item Value Reference Range Comments POC-GLUCOSE METER (BEAKER) 89 mg/dL 70-110 TESTED AT [address] (test msdq=8066) [facility] [id number] 11:25:00 Test Item Value Reference Range Comments SODIUM (BEAKER) (test bphq=006) 151 meq/L 136-145 POCT-GLUCOSE [id number] 07:10:00 Test Item Value Reference Range Comments POC-GLUCOSE METER (BEAKER) 126 mg/dL 70-110 TESTED AT [address] (test pnog=8281) [place] [id number] 05:00:00 Test Item Value Reference Range Comments PHOSPHORUS (BEAKER) (test ljrb=530) 3.3 mg/dL 2.3-4.7 [id number] 05:00:00 Test Item Value Reference Range Comments MAGNESIUM (BEAKER) (test epvo=376) 2.1 mg/dL 1.6-2.6 BASIC METABOLIC [id number] 05:00:00 Test Item Value Reference Range Comments SODIUM (BEAKER) (test 149 meq/L 136-145 nvws=835) POTASSIUM (BEAKER) (test 4.1 meq/L 3.5-5.1 runw=089) CHLORIDE (BEAKER) (test 117 meq/L 98-107 hamj=451) CO2 (BEAKER) (test 23 meq/L 22-29 znup=548) BLOOD UREA NITROGEN 41 mg/dL 7-21 (BEAKER) (test sjla=864) CREATININE (BEAKER) (test 0.84 mg/dL 0.57-1.25 vkpv=366) GLUCOSE RANDOM (BEAKER) 53 mg/dL 70-105 (test uacs=696) CALCIUM (BEAKER) (test 8.2 mg/dL 8.4-10.2 ecih=417) EGFR (BEAKER) (test 94 mL/min/1.73 sq m ESTIMATED GFR IS NOT wjjd=1440) ACCURATE CREATININE CLEARANCE IN PREDICTING GLOMERULAR FILTRATION RATE. ESTIMATED GFR IS NOT APPLICABLE FOR DIALYSIS PATIENTS. CALCIUM, [id number] 04:59:00 Test Item Value Reference Range Comments CALCIUM IONIZED (BEAKER) (test ubhe=190) 1.11 mmol/L 1.12-1.27 PH, BLOOD (BEAKER) (test necs=4347) 7.42 POCT-GLUCOSE [id number] 02:12:00 Test Item Value Reference Range Comments POC-GLUCOSE METER (BEAKER) 105 mg/dL 70-110 TESTED AT [address] (test irdk=7978) [place] [id number] POCT-GLUCOSE [id number] 21:57:00 Test Item Value Reference Range Comments POC-GLUCOSE METER (BEAKER) 252 mg/dL 70-110 TESTED AT [address] (test kkqr=6443) [place] [id number] POCT-GLUCOSE [id number] 18:46:00 Test Item Value Reference Range Comments POC-GLUCOSE METER (BEAKER) 251 mg/dL 70-110 TESTED AT [address] (test nlak=4980) [place] [id number] CBC W/PLT COUNT & AUTO [id number] 13:32:00 Test Item Value Reference Range Comments WHITE BLOOD CELL COUNT (BEAKER) (test mlvz=016) 11.1 K/ L 3.5-10.5 RED BLOOD CELL COUNT (BEAKER) (test oikd=424) 2.97 M/ L 4.63-6.08 HEMOGLOBIN (BEAKER) (test snud=821) 8.3 GM/DL 13.7-17.5 HEMATOCRIT (BEAKER) (test xyks=463) 28.0 % 40.1-51.0 MEAN CORPUSCULAR VOLUME (BEAKER) (test voxp=974) 94.3 fL 79.0-92.2 MEAN CORPUSCULAR HEMOGLOBIN (BEAKER) (test 27.9 pg 25.7-32.2 gjqh=156) MEAN CORPUSCULAR HEMOGLOBIN CONC (BEAKER) (test 29.6 GM/DL 32.3-36.5 ooeh=505) RED CELL DISTRIBUTION WIDTH (BEAKER) (test 14.7 % 11.6-14.4 igon=774) PLATELET COUNT (BEAKER) (test relj=589) 390 K/CU MM 150-450 MEAN PLATELET VOLUME (BEAKER) (test hvwc=960) 9.9 fL 9.4-12.4 NUCLEATED RED BLOOD CELLS (BEAKER) (test 2 /100 WBC 0-0 nfyi=524) IMMATURE GRANULOCYTES-RELATIVE PERCENT (BEAKER) 6 % 0-1 (test yujt=5025) (MANUAL DIFFERENTIAL)2017-02-20 13:32:00 Test Item Value Reference Range Comments NEUTROPHILS - REL (DIFF) (BEAKER) (test vmgv=9718) 61 % LYMPHOCYTES - REL (DIFF) (BEAKER) (test jsdg=0594) 1 % MONOCYTES - REL (DIFF) (BEAKER) (test dxvp=9143) 14 % EOSINOPHILS - REL (DIFF) (BEAKER) (test yuej=7001) 1 % METAMYELOCYTES-REL (DIFF) (BEAKER) (test jtpt=248) 1 % 0-0 MYELOCYTES-REL (DIFF) (BEAKER) (test qrag=2089) 1 % 0-0 BANDS - REL (DIFF) (BEAKER) (test mwtb=8596) 21 % 0-10 NEUTROPHILS - ABS (DIFF) (BEAKER) (test kycn=7569) 6.77 K/ L 1.80-8.00 LYMPHOCYTES - ABS (DIFF) (BEAKER) (test pcol=1743) 0.11 K/ L 1.48-4.50 MONOCYTES - ABS (DIFF) (BEAKER) (test rwzk=3343) 1.55 K/ L 0.00-1.30 EOSINOPHILS - ABS (DIFF) (BEAKER) (test eifk=4585) 0.11 K/ L 0.00-0.50 METAMYELOCTYES - ABS (DIFF) (BEAKER) (test 0.11 K/ L 0.00-0.00 phnp=561) BANDS-ABS (DIFF) (BEAKER) (test bnct=5383) 2.3 K/ L 0.0-0.8 MYELOCYTES-ABS (DIFF) (BEAKER) (test gvfr=2648) 0.11 K/ L 0.00-0.00 TOTAL COUNTED (BEAKER) (test gtug=5318) 100 BANDS + SEGMENTED NEUTROPHILS (BEAKER) (test 9.10 rogk=3206) WBC MORPHOLOGY (BEAKER) (test qwlm=749) Normal PLT MORPHOLOGY (BEAKER) (test ongh=257) Normal RBC MORPHOLOGY (BEAKER) (test puvk=474) Normal POCT-GLUCOSE [id number] 12:37:00 Test Item Value Reference Range Comments POC-GLUCOSE METER (BEAKER) 170 mg/dL 70-110 TESTED AT [facility] [address] [facility] (test rgaf=3235) [place] [address] CBC W/PLT COUNT & AUTO [id number] 11:11:00 Test Item Value Reference Range Comments WHITE BLOOD CELL COUNT (BEAKER) (test cjde=924) 11.1 K/ L 3.5-10.5 RED BLOOD CELL COUNT (BEAKER) (test wgke=279) 2.99 M/ L 4.63-6.08 HEMOGLOBIN (BEAKER) (test emsn=250) 8.4 GM/DL 13.7-17.5 HEMATOCRIT (BEAKER) (test wmct=577) 28.0 % 40.1-51.0 MEAN CORPUSCULAR VOLUME (BEAKER) (test unfq=528) 93.6 fL 79.0-92.2 MEAN CORPUSCULAR HEMOGLOBIN (BEAKER) (test 28.1 pg 25.7-32.2 znyp=990) MEAN CORPUSCULAR HEMOGLOBIN CONC (BEAKER) (test 30.0 GM/DL 32.3-36.5 hxrm=917) RED CELL DISTRIBUTION WIDTH (BEAKER) (test 14.9 % 11.6-14.4 ignp=146) PLATELET COUNT (BEAKER) (test fimf=215) 426 K/CU MM 150-450 MEAN PLATELET VOLUME (BEAKER) (test xaqz=714) 10.3 fL 9.4-12.4 NUCLEATED RED BLOOD CELLS (BEAKER) (test 2 /100 WBC 0-0 hind=085) IMMATURE GRANULOCYTES-RELATIVE PERCENT (BEAKER) 5 % 0-1 (test fjsy=4848) (MANUAL DIFFERENTIAL)2017-02-20 11:11:00 Test Item Value Reference Range Comments NEUTROPHILS - REL (DIFF) (BEAKER) (test 68 % izcr=7552) LYMPHOCYTES - REL (DIFF) (BEAKER) (test 11 % oszf=3583) MONOCYTES - REL (DIFF) (BEAKER) (test rhzg=6438) 7 % EOSINOPHILS - REL (DIFF) (BEAKER) (test 2 % yrdq=0535) BASOPHILS - REL (DIFF) (BEAKER) (test mlur=7495) 0 % METAMYELOCYTES-REL (DIFF) (BEAKER) (test 1 % 0-0 vihq=704) MYELOCYTES-REL (DIFF) (BEAKER) (test oxol=5144) 2 % 0-0 BANDS - REL (DIFF) (BEAKER) (test wyrg=3179) 9 % 0-10 NEUTROPHILS - ABS (DIFF) (BEAKER) (test 7.55 K/ L 1.80-8.00 kdnl=0419) LYMPHOCYTES - ABS (DIFF) (BEAKER) (test 1.22 K/ L 1.48-4.50 njxj=6357) MONOCYTES - ABS (DIFF) (BEAKER) (test rcvs=9195) 0.78 K/ L 0.00-1.30 EOSINOPHILS - ABS (DIFF) (BEAKER) (test 0.22 K/ L 0.00-0.50 wudu=6368) BASOPHILS - ABS (DIFF) (BEAKER) (test otis=1466) 0.00 K/ L 0.00-0.20 METAMYELOCTYES - ABS (DIFF) (BEAKER) (test 0.11 K/ L 0.00-0.00 cxbd=767) BANDS-ABS (DIFF) (BEAKER) (test avfj=2553) 1.0 K/ L 0.0-0.8 MYELOCYTES-ABS (DIFF) (BEAKER) (test iiup=1289) 0.22 K/ L 0.00-0.00 TOTAL COUNTED (BEAKER) (test vdrx=6075) 100 BANDS + SEGMENTED NEUTROPHILS (BEAKER) (test 8.55 jnmo=5269) MANUAL NRBC PER 100 CELLS (BEAKER) (test 2 /100 WBC 0-0 npbr=2749) WBC MORPHOLOGY (BEAKER) (test tdyq=878) Normal LARGE PLT(BEAKER) (test fhdh=6761) Present POIKILOCYTES (BEAKER) (test tqfu=712) 1+ few POLYCHROMATOPHILLIC RBCS(BEAKER) (test wpvm=887) 3+ many [id number] 10:27:00 Test Item Value Reference Range Comments SODIUM (BEAKER) (test sydu=199) 151 meq/L 136-145 POCT-GLUCOSE [id number] 09:49:00 Test Item Value Reference Range Comments POC-GLUCOSE METER (BEAKER) 128 mg/dL 70-110 TESTED AT [facility] [address] [facility] (test yqpa=3424) [facility] [address] [id number] 03:58:00 Test Item Value Reference Range Comments PHOSPHORUS (BEAKER) (test sghg=330) 3.1 mg/dL 2.3-4.7 [id number] 03:58:00 Test Item Value Reference Range Comments MAGNESIUM (BEAKER) (test fepo=422) 2.1 mg/dL 1.6-2.6 BASIC METABOLIC [id number] 03:58:00 Test Item Value Reference Range Comments SODIUM (BEAKER) (test 150 meq/L 136-145 uotr=886) POTASSIUM (BEAKER) (test 4.2 meq/L 3.5-5.1 yjcp=433) CHLORIDE (BEAKER) (test 117 meq/L 98-107 wuqi=013) CO2 (BEAKER) (test 25 meq/L 22-29 xxfm=932) BLOOD UREA NITROGEN 33 mg/dL 7-21 (BEAKER) (test oadb=039) CREATININE (BEAKER) (test 0.83 mg/dL 0.57-1.25 dmij=766) GLUCOSE RANDOM (BEAKER) 129 mg/dL 70-105 (test domh=110) CALCIUM (BEAKER) (test 8.2 mg/dL 8.4-10.2 oxwc=971) EGFR (BEAKER) (test 95 mL/min/1.73 sq m ESTIMATED GFR IS NOT jiqo=1080) ACCURATE CREATININE CLEARANCE IN PREDICTING GLOMERULAR FILTRATION RATE. ESTIMATED GFR IS NOT APPLICABLE FOR DIALYSIS PATIENTS. CALCIUM, [id number] 03:47:00 Test Item Value Reference Range Comments CALCIUM IONIZED (BEAKER) (test kmgd=611) 1.10 mmol/L 1.12-1.27 PH, BLOOD (BEAKER) (test lpqp=0416) 7.41 POCT-GLUCOSE [id number] 22:16:00 Test Item Value Reference Range Comments POC-GLUCOSE METER (BEAKER) 172 mg/dL 70-110 TESTED AT [facility] [address] [facility] (test ffyf=4723) [facility] [address] POCT-GLUCOSE [id number] 17:42:00 Test Item Value Reference Range Comments POC-GLUCOSE METER (BEAKER) 156 mg/dL 70-110 TESTED AT [address] (test sibi=8089) [place] [id number] POCT-GLUCOSE [id number] 11:36:00 Test Item Value Reference Range Comments POC-GLUCOSE METER (BEAKER) 223 mg/dL 70-110 TESTED AT [address] (test xsfb=4202) [place] [address] [id number] 10:00:00 Test Item Value Reference Range Comments SODIUM (BEAKER) (test vauq=925) 149 meq/L 136-145 POCT-GLUCOSE [id number] 07:54:00 Test Item Value Reference Range Comments POC-GLUCOSE METER (BEAKER) 190 mg/dL 70-110 TESTED AT [address] (test clck=6320) [place] [id number] CBC W/PLT COUNT & AUTO [id number] 06:29:00 Test Item Value Reference Range Comments WHITE BLOOD CELL COUNT (BEAKER) (test mrfv=717) 11.8 K/ L 3.5-10.5 RED BLOOD CELL COUNT (BEAKER) (test xcqy=001) 3.07 M/ L 4.63-6.08 HEMOGLOBIN (BEAKER) (test wsgs=789) 8.6 GM/DL 13.7-17.5 HEMATOCRIT (BEAKER) (test wbam=874) 28.8 % 40.1-51.0 MEAN CORPUSCULAR VOLUME (BEAKER) (test btun=759) 93.8 fL 79.0-92.2 MEAN CORPUSCULAR HEMOGLOBIN (BEAKER) (test 28.0 pg 25.7-32.2 upbj=490) MEAN CORPUSCULAR HEMOGLOBIN CONC (BEAKER) (test 29.9 GM/DL 32.3-36.5 qjpr=479) RED CELL DISTRIBUTION WIDTH (BEAKER) (test 14.6 % 11.6-14.4 wptq=356) PLATELET COUNT (BEAKER) (test ipwf=512) 434 K/CU MM 150-450 MEAN PLATELET VOLUME (BEAKER) (test xitp=338) 9.7 fL 9.4-12.4 NUCLEATED RED BLOOD CELLS (BEAKER) (test 2 /100 WBC 0-0 ntpl=675) NEUTROPHILS RELATIVE PERCENT (BEAKER) (test 78 % mryh=172) LYMPHOCYTES RELATIVE PERCENT (BEAKER) (test 10 % foqu=064) MONOCYTES RELATIVE PERCENT (BEAKER) (test 7 % dbnb=912) EOSINOPHILS RELATIVE PERCENT (BEAKER) (test 2 % zhcy=794) BASOPHILS RELATIVE PERCENT (BEAKER) (test 0 % naob=418) NEUTROPHILS ABSOLUTE COUNT (BEAKER) (test 9.16 K/ L 1.78-5.38 otpz=081) LYMPHOCYTES ABSOLUTE COUNT (BEAKER) (test 1.17 K/ L 1.32-3.57 fyuw=582) MONOCYTES ABSOLUTE COUNT (BEAKER) (test 0.88 K/ L 0.30-0.82 yekp=436) EOSINOPHILS ABSOLUTE COUNT (BEAKER) (test 0.26 K/ L 0.04-0.54 pcod=349) BASOPHILS ABSOLUTE COUNT (BEAKER) (test 0.04 K/ L 0.01-0.08 imgx=488) IMMATURE GRANULOCYTES-RELATIVE PERCENT (BEAKER) 3 % 0-1 (test yabg=9824) [id number] 02:57:00 Test Item Value Reference Range Comments PHOSPHORUS (BEAKER) (test vwst=058) 3.2 mg/dL 2.3-4.7 [id number] 02:57:00 Test Item Value Reference Range Comments MAGNESIUM (BEAKER) (test tlwk=977) 2.1 mg/dL 1.6-2.6 BASIC METABOLIC [id number] 02:57:00 Test Item Value Reference Range Comments SODIUM (BEAKER) (test 149 meq/L 136-145 diel=863) POTASSIUM (BEAKER) (test 4.0 meq/L 3.5-5.1 zdau=368) CHLORIDE (BEAKER) (test 116 meq/L 98-107 nwvp=124) CO2 (BEAKER) (test 26 meq/L 22-29 ilav=310) BLOOD UREA NITROGEN 37 mg/dL 7-21 (BEAKER) (test muef=295) CREATININE (BEAKER) (test 0.95 mg/dL 0.57-1.25 jwdu=261) GLUCOSE RANDOM (BEAKER) 139 mg/dL 70-105 (test igdi=143) CALCIUM (BEAKER) (test 8.5 mg/dL 8.4-10.2 brla=797) EGFR (BEAKER) (test 81 mL/min/1.73 sq m ESTIMATED GFR IS NOT denl=6736) ACCURATE CREATININE CLEARANCE IN PREDICTING GLOMERULAR FILTRATION RATE. ESTIMATED GFR IS NOT APPLICABLE FOR DIALYSIS PATIENTS. CALCIUM, [id number] 02:51:00 Test Item Value Reference Range Comments CALCIUM IONIZED (BEAKER) (test mycw=120) 1.13 mmol/L 1.12-1.27 PH, BLOOD (BEAKER) (test zezv=9601) 7.42 BLOOD [id number] 23:00:00 Test Item Value Reference Range Comments CULTURE (BEAKER) (test egoi=5220) No growth in 5 days POCT-GLUCOSE [id number] 21:49:00 Test Item Value Reference Range Comments POC-GLUCOSE METER (BEAKER) 224 mg/dL 70-110 TESTED AT [address] (test nmui=9526) [place] [address] POCT-GLUCOSE [id number] 21:43:00 Test Item Value Reference Range Comments POC-GLUCOSE METER (BEAKER) 191 mg/dL 70-110 TESTED AT [address] (test vkrz=1643) [place] [address] POCT-GLUCOSE [id number] 18:14:00 Test Item Value Reference Range Comments POC-GLUCOSE METER (BEAKER) 274 mg/dL 70-110 TESTED AT [address] (test xqwq=2008) [place] [address] [id number] 17:49:00 Test Item Value Reference Range Comments SODIUM (BEAKER) (test uzvh=103) 152 meq/L 136-145 POCT-GLUCOSE [id number] 11:44:00 Test Item Value Reference Range Comments POC-GLUCOSE METER (BEAKER) 188 mg/dL 70-110 TESTED AT [address] (test azhi=1559) [place] [address] POCT-GLUCOSE [id number] 07:36:00 Test Item Value Reference Range Comments POC-GLUCOSE METER (BEAKER) 202 mg/dL 70-110 TESTED AT [address] (test nygg=3160) [place] [id number] RAD, CHEST, 1 VIEW, NON [id number] 07:32:00Reason for exam:->TRACHShould this be performed at [...] Verified Date/Time : 02/18/2017 07:32:28 Reading Location: [address] Transitional Reading Room CBC W/PLT COUNT & AUTO [id number] 03:52:00 Test Item Value Reference Range Comments WHITE BLOOD CELL COUNT (BEAKER) (test uvmo=012) 11.5 K/ L 3.5-10.5 RED BLOOD CELL COUNT (BEAKER) (test hbno=153) 2.89 M/ L 4.63-6.08 HEMOGLOBIN (BEAKER) (test qjjt=924) 8.2 GM/DL 13.7-17.5 HEMATOCRIT (BEAKER) (test wats=844) 27.1 % 40.1-51.0 MEAN CORPUSCULAR VOLUME (BEAKER) (test qdct=919) 93.8 fL 79.0-92.2 MEAN CORPUSCULAR HEMOGLOBIN (BEAKER) (test 28.4 pg 25.7-32.2 ufka=237) MEAN CORPUSCULAR HEMOGLOBIN CONC (BEAKER) (test 30.3 GM/DL 32.3-36.5 yhtw=611) RED CELL DISTRIBUTION WIDTH (BEAKER) (test 14.6 % 11.6-14.4 gfiu=737) PLATELET COUNT (BEAKER) (test xuvx=278) 394 K/CU MM 150-450 MEAN PLATELET VOLUME (BEAKER) (test pylu=071) 9.9 fL 9.4-12.4 NUCLEATED RED BLOOD CELLS (BEAKER) (test 1 /100 WBC 0-0 cbki=480) NEUTROPHILS RELATIVE PERCENT (BEAKER) (test 80 % ywqn=106) LYMPHOCYTES RELATIVE PERCENT (BEAKER) (test 9 % drxf=468) MONOCYTES RELATIVE PERCENT (BEAKER) (test 7 % quji=463) EOSINOPHILS RELATIVE PERCENT (BEAKER) (test 2 % ebsr=154) BASOPHILS RELATIVE PERCENT (BEAKER) (test 0 % fabw=279) NEUTROPHILS ABSOLUTE COUNT (BEAKER) (test 9.19 K/ L 1.78-5.38 drnt=913) LYMPHOCYTES ABSOLUTE COUNT (BEAKER) (test 1.03 K/ L 1.32-3.57 plna=145) MONOCYTES ABSOLUTE COUNT (BEAKER) (test 0.77 K/ L 0.30-0.82 yjwj=389) EOSINOPHILS ABSOLUTE COUNT (BEAKER) (test 0.19 K/ L 0.04-0.54 svxv=994) BASOPHILS ABSOLUTE COUNT (BEAKER) (test 0.03 K/ L 0.01-0.08 nwqb=973) IMMATURE GRANULOCYTES-RELATIVE PERCENT (BEAKER) 2 % 0-1 (test flkt=5954) (MANUAL DIFFERENTIAL)2017-02-18 03:52:00 Test Item Value Reference Range Comments TOTAL COUNTED (BEAKER) (test fexo=2253) PLT MORPHOLOGY (BEAKER) (test kdhq=298) Normal RBC MORPHOLOGY (BEAKER) (test btcw=178) Normal ATYPICAL LYMPHS(BEAKER) (test eidw=3669) Present [id number] 03:08:00 Test Item Value Reference Range Comments PHOSPHORUS (BEAKER) (test pxku=523) 3.0 mg/dL 2.3-4.7 [id number] 03:08:00 Test Item Value Reference Range Comments MAGNESIUM (BEAKER) (test jrgo=766) 2.0 mg/dL 1.6-2.6 BASIC METABOLIC [id number] 03:08:00 Test Item Value Reference Range Comments SODIUM (BEAKER) (test 151 meq/L 136-145 xlcx=883) POTASSIUM (BEAKER) (test 4.3 meq/L 3.5-5.1 jgqk=744) CHLORIDE (BEAKER) (test 118 meq/L 98-107 fgju=712) CO2 (BEAKER) (test 25 meq/L 22-29 gyqk=260) BLOOD UREA NITROGEN 30 mg/dL 7-21 (BEAKER) (test lfto=165) CREATININE (BEAKER) (test 0.91 mg/dL 0.57-1.25 dncv=426) GLUCOSE RANDOM (BEAKER) 182 mg/dL 70-105 (test shle=112) CALCIUM (BEAKER) (test 8.3 mg/dL 8.4-10.2 urbq=254) EGFR (BEAKER) (test 86 mL/min/1.73 sq m ESTIMATED GFR IS NOT tulv=1425) ACCURATE CREATININE CLEARANCE IN PREDICTING GLOMERULAR FILTRATION RATE. ESTIMATED GFR IS NOT APPLICABLE FOR DIALYSIS PATIENTS. CALCIUM, [id number] 02:40:00 Test Item Value Reference Range Comments CALCIUM IONIZED (BEAKER) (test xpwc=728) 1.10 mmol/L 1.12-1.27 PH, BLOOD (BEAKER) (test iwpg=3468) 7.43 POCT-GLUCOSE [id number] 22:20:00 Test Item Value Reference Range Comments POC-GLUCOSE METER (BEAKER) 162 mg/dL 70-110 TESTED AT [address] (test qghf=1144) [place] [address] POCT-GLUCOSE [id number] 20:46:00 Test Item Value Reference Range Comments POC-GLUCOSE METER (BEAKER) 124 mg/dL 70-110 TESTED AT [address] (test nrjj=9091) [place] [address] POCT-GLUCOSE [id number] 18:29:00 Test Item Value Reference Range Comments POC-GLUCOSE METER (BEAKER) 90 mg/dL 70-110 TESTED AT [address] (test ygma=9892) [place] [address] [id number] 14:57:00 Test Item Value Reference Range Comments SODIUM (BEAKER) (test ptto=199) 152 meq/L 136-145 POCT-GLUCOSE [id number] 13:17:00 Test Item Value Reference Range Comments POC-GLUCOSE METER (BEAKER) 197 mg/dL 70-110 TESTED AT [address] (test fsgt=4189) [place] [id number] CBC W/PLT COUNT & AUTO [id number] 13:09:00 Test Item Value Reference Range Comments WHITE BLOOD CELL COUNT (BEAKER) (test bska=863) 12.5 K/ L 3.5-10.5 RED BLOOD CELL COUNT (BEAKER) (test etiw=871) 3.05 M/ L 4.63-6.08 HEMOGLOBIN (BEAKER) (test jiwx=189) 8.6 GM/DL 13.7-17.5 HEMATOCRIT (BEAKER) (test krww=837) 28.7 % 40.1-51.0 MEAN CORPUSCULAR VOLUME (BEAKER) (test grxt=491) 94.1 fL 79.0-92.2 MEAN CORPUSCULAR HEMOGLOBIN (BEAKER) (test 28.2 pg 25.7-32.2 fiir=358) MEAN CORPUSCULAR HEMOGLOBIN CONC (BEAKER) (test 30.0 GM/DL 32.3-36.5 sxmz=668) RED CELL DISTRIBUTION WIDTH (BEAKER) (test 14.7 % 11.6-14.4 njty=395) PLATELET COUNT (BEAKER) (test lglk=063) 406 K/CU MM 150-450 MEAN PLATELET VOLUME (BEAKER) (test hoja=364) 10.0 fL 9.4-12.4 NUCLEATED RED BLOOD CELLS (BEAKER) (test 1 /100 WBC 0-0 yuvx=713) NEUTROPHILS RELATIVE PERCENT (BEAKER) (test 84 % bmuk=301) LYMPHOCYTES RELATIVE PERCENT (BEAKER) (test 8 % ygcj=405) MONOCYTES RELATIVE PERCENT (BEAKER) (test 5 % zncz=321) EOSINOPHILS RELATIVE PERCENT (BEAKER) (test 1 % oavd=970) BASOPHILS RELATIVE PERCENT (BEAKER) (test 0 % agxm=871) NEUTROPHILS ABSOLUTE COUNT (BEAKER) (test 10.50 K/ L 1.78-5.38 kavm=616) LYMPHOCYTES ABSOLUTE COUNT (BEAKER) (test 0.97 K/ L 1.32-3.57 jnlg=012) MONOCYTES ABSOLUTE COUNT (BEAKER) (test 0.67 K/ L 0.30-0.82 iptq=190) EOSINOPHILS ABSOLUTE COUNT (BEAKER) (test 0.07 K/ L 0.04-0.54 nuki=271) BASOPHILS ABSOLUTE COUNT (BEAKER) (test 0.04 K/ L 0.01-0.08 vjdy=624) IMMATURE GRANULOCYTES-RELATIVE PERCENT (BEAKER) 2 % 0-1 (test incz=0490) (MANUAL DIFFERENTIAL)2017-02-17 13:09:00 Test Item Value Reference Range Comments TOTAL COUNTED (BEAKER) (test krji=0362) ATYPICAL LYMPHS(BEAKER) (test ekuf=2957) Present LARGE PLT(BEAKER) (test pqgr=9445) Present POLYCHROMATOPHILLIC RBCS(BEAKER) (test rsju=046) 2+ moderate POCT-GLUCOSE [id number] 10:22:00 Test Item Value Reference Range Comments POC-GLUCOSE METER (BEAKER) 220 mg/dL 70-110 TESTED AT [facility] [address] (test pipg=2746) [facility] [address] RAD, CHEST, 1 VIEW, NON [id number] 08:34:00Reason for exam:->TRACHShould this be performed at [...] Verified Date/Time: 02/17/2017 08:34:57 Reading Location : [address] Neuro Reading Room [id number] 07:13:00 Test Item Value Reference Range Comments PHOSPHORUS (BEAKER) (test obte=038) 2.6 mg/dL 2.3-4.7 [id number] 07:13:00 Test Item Value Reference Range Comments MAGNESIUM (BEAKER) (test ztjg=398) 2.0 mg/dL 1.6-2.6 BASIC METABOLIC [id number] 07:13:00 Test Item Value Reference Range Comments SODIUM (BEAKER) (test 152 meq/L 136-145 xccp=352) POTASSIUM (BEAKER) (test 4.0 meq/L 3.5-5.1 yoxt=866) CHLORIDE (BEAKER) (test 117 meq/L 98-107 ibwe=753) CO2 (BEAKER) (test 27 meq/L 22-29 ekdg=705) BLOOD UREA NITROGEN 28 mg/dL 7-21 (BEAKER) (test bitv=361) CREATININE (BEAKER) (test 0.91 mg/dL 0.57-1.25 erak=063) GLUCOSE RANDOM (BEAKER) 222 mg/dL 70-105 (test ymor=227) CALCIUM (BEAKER) (test 8.6 mg/dL 8.4-10.2 egui=084) EGFR (BEAKER) (test 86 mL/min/1.73 sq m ESTIMATED GFR IS NOT faqq=9982) ACCURATE CREATININE CLEARANCE IN PREDICTING GLOMERULAR FILTRATION RATE. ESTIMATED GFR IS NOT APPLICABLE FOR DIALYSIS PATIENTS. CALCIUM, [id number] 06:27:00 Test Item Value Reference Range Comments CALCIUM IONIZED (BEAKER) (test uzyp=519) 1.13 mmol/L 1.12-1.27 PH, BLOOD (BEAKER) (test puaw=8786) 7.42 POCT-GLUCOSE [id number] 05:50:00 Test Item Value Reference Range Comments POC-GLUCOSE METER (BEAKER) 253 mg/dL 70-110 TESTED AT [address] (test uqxm=2990) [place] [address] POCT-GLUCOSE [id number] 22:31:00 Test Item Value Reference Range Comments POC-GLUCOSE METER (BEAKER) 263 mg/dL 70-110 TESTED AT [address] (test gwrd=6244) [place] [address] POCT-GLUCOSE [id number] 18:21:00 Test Item Value Reference Range Comments POC-GLUCOSE METER (BEAKER) 231 mg/dL 70-110 TESTED AT [address] (test sblg=0164) [place] [address] POCT-GLUCOSE [id number] 17:46:00 Test Item Value Reference Range Comments POC-GLUCOSE METER (BEAKER) 208 mg/dL 70-110 TESTED AT [address] (test epyv=7688) [place] [address] POCT-GLUCOSE [id number] 12:32:00 Test Item Value Reference Range Comments POC-GLUCOSE METER (BEAKER) 271 mg/dL 70-110 TESTED AT [address] (test pzjq=7653) [place] [address] RAD, CHEST, 1 VIEW, NON [id number] 07:30:00Reason for exam:->TRACHShould this be performed at [...] Verified Date/Time : 02/16/2017 07:30:27 Reading Location: [address] Transitional Reading Room POCT- GLUCOSE [id number] 06:18:00 Test Item Value Reference Range Comments POC-GLUCOSE METER (BEAKER) 247 mg/dL 70-110 TESTED AT [address] (test ksze=2554) [facility] [address] POCT-GLUCOSE [id number] 06:10:00 Test Item Value Reference Range Comments POC-GLUCOSE METER (BEAKER) 290 mg/dL 70-110 TESTED AT [address] (test uxzx=6853) [place] [address] [id number] 03:15:00 Test Item Value Reference Range Comments PHOSPHORUS (BEAKER) (test tojd=016) 2.3 mg/dL 2.3-4.7 [id number] 03:15:00 Test Item Value Reference Range Comments MAGNESIUM (BEAKER) (test xgyj=545) 2.2 mg/dL 1.6-2.6 BASIC METABOLIC [id number] 03:15:00 Test Item Value Reference Range Comments SODIUM (BEAKER) (test 148 meq/L 136-145 arvm=198) POTASSIUM (BEAKER) (test 4.4 meq/L 3.5-5.1 ovul=145) CHLORIDE (BEAKER) (test 114 meq/L 98-107 dnmp=908) CO2 (BEAKER) (test 25 meq/L 22-29 tusu=450) BLOOD UREA NITROGEN 30 mg/dL 7-21 (BEAKER) (test lfzp=011) CREATININE (BEAKER) (test 1.06 mg/dL 0.57-1.25 nuaj=674) GLUCOSE RANDOM (BEAKER) 271 mg/dL 70-105 (test xrlm=197) CALCIUM (BEAKER) (test 8.1 mg/dL 8.4-10.2 lsex=202) EGFR (BEAKER) (test 72 mL/min/1.73 sq m ESTIMATED GFR IS NOT ripx=1211) ACCURATE CREATININE CLEARANCE IN PREDICTING GLOMERULAR FILTRATION RATE. ESTIMATED GFR IS NOT APPLICABLE FOR DIALYSIS PATIENTS. BLOOD GAS, [id number] 03:14:00 Test Item Value Reference Range Comments PH ARTERIAL (BEAKER) (test oznd=907) 7.48 7.35-7.45 PCO2 ARTERIAL (BEAKER) (test hqti=127) 34 mmHg 35-45 PO2 ARTERIAL (BEAKER) (test asua=732) 98 mmHg 80-90 O2 SATURATION ARTERIAL (BEAKER) (test todm=525) 97.6 % 96.0-97.0 HCO3 ARTERIAL (BEAKER) (test ihbw=299) 25 mmol/L 21-29 BASE EXCESS ARTERIAL (BEAKER) (test mikv=864) 1.4 mmol/L -2.0-3.0 PATIENT TEMPERATURE (BEAKER) (test hmoc=6385) 38.1 C FIO2 (BEAKER) (test wlpw=0484) 40.0 % CBC W/PLT COUNT & AUTO [id number] 03:11:00 Test Item Value Reference Range Comments WHITE BLOOD CELL COUNT (BEAKER) (test sjnn=596) 11.0 K/ L 3.5-10.5 RED BLOOD CELL COUNT (BEAKER) (test keoi=860) 2.96 M/ L 4.63-6.08 HEMOGLOBIN (BEAKER) (test ghjc=934) 8.4 GM/DL 13.7-17.5 HEMATOCRIT (BEAKER) (test cvam=445) 27.7 % 40.1-51.0 MEAN CORPUSCULAR VOLUME (BEAKER) (test fmvs=653) 93.6 fL 79.0-92.2 MEAN CORPUSCULAR HEMOGLOBIN (BEAKER) (test 28.4 pg 25.7-32.2 cvec=402) MEAN CORPUSCULAR HEMOGLOBIN CONC (BEAKER) (test 30.3 GM/DL 32.3-36.5 kmny=586) RED CELL DISTRIBUTION WIDTH (BEAKER) (test 14.6 % 11.6-14.4 suzi=994) PLATELET COUNT (BEAKER) (test lfps=896) 386 K/CU MM 150-450 MEAN PLATELET VOLUME (BEAKER) (test klhw=209) 10.1 fL 9.4-12.4 NUCLEATED RED BLOOD CELLS (BEAKER) (test 1 /100 WBC 0-0 imqr=559) NEUTROPHILS RELATIVE PERCENT (BEAKER) (test 83 % pabt=235) LYMPHOCYTES RELATIVE PERCENT (BEAKER) (test 8 % qgyp=913) MONOCYTES RELATIVE PERCENT (BEAKER) (test 6 % utuy=602) EOSINOPHILS RELATIVE PERCENT (BEAKER) (test 0 % exgc=374) BASOPHILS RELATIVE PERCENT (BEAKER) (test 0 % dmni=179) NEUTROPHILS ABSOLUTE COUNT (BEAKER) (test 9.13 K/ L 1.78-5.38 sqxg=497) LYMPHOCYTES ABSOLUTE COUNT (BEAKER) (test 0.91 K/ L 1.32-3.57 itwd=728) MONOCYTES ABSOLUTE COUNT (BEAKER) (test 0.69 K/ L 0.30-0.82 fkow=360) EOSINOPHILS ABSOLUTE COUNT (BEAKER) (test 0.03 K/ L 0.04-0.54 cuff=308) BASOPHILS ABSOLUTE COUNT (BEAKER) (test 0.04 K/ L 0.01-0.08 eqmd=683) IMMATURE GRANULOCYTES-RELATIVE PERCENT (BEAKER) 2 % 0-1 (test ynrm=0917) CALCIUM, [id number] 03:10:00 Test Item Value Reference Range Comments CALCIUM IONIZED (BEAKER) (test psil=327) 1.07 mmol/L 1.12-1.27 PH, BLOOD (BEAKER) (test opny=5146) 7.45 [id number] 22:29:00 Test Item Value Reference Range Comments SODIUM (BEAKER) (test pzze=590) 145 meq/L 136-145 POCT-GLUCOSE [id number] 21:17:00 Test Item Value Reference Range Comments POC-GLUCOSE METER (BEAKER) 300 mg/dL 70-110 TESTED AT [facility] [address] [place] [address] (test ndwq=0279) [facility] [address] CT, [id number] 18:36:00CT A/P with IV and PO contrast.FINAL [...] Monster Forbes Verified Date/Time:2016 18:36:50 Reading Location: [facility] B1 C013Y CT Body Reading Room POCT-GLUCOSE [id number] 18:02:00 Test Item Value Reference Range Comments POC-GLUCOSE METER (BEAKER) 225 mg/dL 70-110 TESTED AT [facility] [address] (test kvmu=9091) [facility] [address] RAD, CHEST, 1 VIEW, NON [id number] 16:16:00Reason for exam:->Post trach placementShould this be [...] MDReport Verified Date/Time: 02/15/2017 16:16:24 Reading Location: [facility] BASI METABOLIC [id number] 16:06:00 Test Item Value Reference Range Comments SODIUM (BEAKER) (test 149 meq/L 136-145 suav=162) POTASSIUM (BEAKER) (test 4.9 meq/L 3.5-5.1 rqri=409) CHLORIDE (BEAKER) (test 114 meq/L 98-107 ezlp=321) CO2 (BEAKER) (test 25 meq/L 22-29 qwuh=765) BLOOD UREA NITROGEN 28 mg/dL 7-21 (BEAKER) (test ouji=002) CREATININE (BEAKER) (test 1.03 mg/dL 0.57-1.25 gxhp=520) GLUCOSE RANDOM (BEAKER) 172 mg/dL 70-105 (test lonr=103) CALCIUM (BEAKER) (test 8.3 mg/dL 8.4-10.2 ituk=071) EGFR (BEAKER) (test 74 mL/min/1.73 sq m ESTIMATED GFR IS NOT pnbd=5583) ACCURATE CREATININE CLEARANCE IN PREDICTING GLOMERULAR FILTRATION RATE. ESTIMATED GFR IS NOT APPLICABLE FOR DIALYSIS PATIENTS. EEG AWAKE AND [id number] 15:53:00Reason for exam:-> encephalopathyShould this be performed at the bedside?->YesDATE OF EE02-15 DATE OF REPORT: 02-15-2017 ACC: [id number] Start time: 13:17 Stoptime: 13:38 ICD-10: G 93.40 CPT Code: 58965 HISTORY: 57 y.o. male s/p robotic surgery for rectal cancer 2 weeks ago. 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 and transfer to the ICU MEDICATIONS THAT COULD AFFECT EEG: MIdazolam TECHNICAL SUMMARY: This is a digital video EEG recorded with 32 inputchannels on a [employer] system and then reviewed with bipolar and [...] Jovel MD Epilepsy Attending 03:53 PMBLOOD GAS, [id number] 15:51:00 Test Item Value Reference Range Comments PH ARTERIAL (BEAKER) (test bpqb=712) 7.45 7.35-7.45 PCO2 ARTERIAL (BEAKER) (test alyh=827) 40 mmHg 35-45 PO2 ARTERIAL (BEAKER) (test qfzy=412) 54 mmHg 80-90 O2 SATURATION ARTERIAL (BEAKER) (test qxqn=216) 86.6 % 96.0-97.0 HCO3 ARTERIAL (BEAKER) (test supw=959) 27 mmol/L 21-29 BASE EXCESS ARTERIAL (BEAKER) (test qjod=232) 3.3 mmol/L -2.0-3.0 PATIENT TEMPERATURE (BEAKER) (test zatr=8342) 38.8 C FIO2 (BEAKER) (test pceo=5689) 40.0 % BLOOD [id number] 12:54:00 Test Item Value Reference Range Comments CULTURE (BEAKER) From Anaerobic Bottle Only (test ygpg=0679) Coagulase negative Staphylococcus GRAM STAIN RESULT From anaerobic bottle (BEAKER) (test only: gram positive vzfs=3504) cocci in clusters Coagulase Negative Staphylococcus Species [...] required. This sample was tested at the [facility] Clinical Microbiology Laboratory using the [employer] Blood Culture ID Panel.This test is FDA cleared for in vitro diagnostic use and has been verified and approved by the [facility] for clinical use. Reference Range: Not DetectedPOCT-GLUCOSE [id number] 12:46:00 Test Item Value Reference Range Comments POC-GLUCOSE METER (BEAKER) 124 mg/dL 70-110 TESTED AT [facility] [address] [place] [address] (test rozn=8364) [facility] [address] POCT-GLUCOSE [id number] 11:30:00 Test Item Value Reference Range Comments POC-GLUCOSE METER (BEAKER) 80 mg/dL 70-110 TESTED AT [address] (test ntsx=8807) [facility] [address] CBC W/PLT COUNT & AUTO [id number] 11:22:00 Test Item Value Reference Range Comments WHITE BLOOD CELL COUNT (BEAKER) (test gott=858) 11.2 K/ L 3.5-10.5 RED BLOOD CELL COUNT (BEAKER) (test ucfz=993) 3.12 M/ L 4.63-6.08 HEMOGLOBIN (BEAKER) (test liwy=427) 8.9 GM/DL 13.7-17.5 HEMATOCRIT (BEAKER) (test xxxu=095) 29.0 % 40.1-51.0 MEAN CORPUSCULAR VOLUME (BEAKER) (test yoju=541) 92.9 fL 79.0-92.2 MEAN CORPUSCULAR HEMOGLOBIN (BEAKER) (test 28.5 pg 25.7-32.2 whsj=707) MEAN CORPUSCULAR HEMOGLOBIN CONC (BEAKER) (test 30.7 GM/DL 32.3-36.5 nidv=099) RED CELL DISTRIBUTION WIDTH (BEAKER) (test 14.5 % 11.6-14.4 hfvs=168) PLATELET COUNT (BEAKER) (test dmsd=078) 416 K/CU MM 150-450 MEAN PLATELET VOLUME (BEAKER) (test ftzl=937) 9.9 fL 9.4-12.4 NUCLEATED RED BLOOD CELLS (BEAKER) (test 1 /100 WBC 0-0 cxdb=377) IMMATURE GRANULOCYTES-RELATIVE PERCENT (BEAKER) 1 % 0-1 (test btpg=9386) (MANUAL DIFFERENTIAL)2017-02-15 11:22:00 Test Item Value Reference Range Comments NEUTROPHILS - REL (DIFF) (BEAKER) (test npfm=2256) 77 % LYMPHOCYTES - REL (DIFF) (BEAKER) (test ucwy=3133) 14 % MONOCYTES - REL (DIFF) (BEAKER) (test dxci=7935) 4 % MYELOCYTES-REL (DIFF) (BEAKER) (test xzyg=1312) 1 % 0-0 BANDS - REL (DIFF) (BEAKER) (test hkcn=8114) 4 % 0-10 NEUTROPHILS - ABS (DIFF) (BEAKER) (test mars=4689) 8.62 K/ L 1.80-8.00 LYMPHOCYTES - ABS (DIFF) (BEAKER) (test klhg=8816) 1.57 K/ L 1.48-4.50 MONOCYTES - ABS (DIFF) (BEAKER) (test vusb=0118) 0.45 K/ L 0.00-1.30 BANDS-ABS (DIFF) (BEAKER) (test lxen=1545) 0.4 K/ L 0.0-0.8 MYELOCYTES-ABS (DIFF) (BEAKER) (test xtbl=0819) 0.11 K/ L 0.00-0.00 TOTAL COUNTED (BEAKER) (test jycw=4706) 100 BANDS + SEGMENTED NEUTROPHILS (BEAKER) (test 9.07 szzv=3127) WBC MORPHOLOGY (BEAKER) (test fngl=558) Normal PLT MORPHOLOGY (BEAKER) (test resb=137) Normal RBC MORPHOLOGY (BEAKER) (test hvde=427) Normal RAD, CHEST, 1 VIEW, NON [id number] 08:47:00Reason for exam:-> IntubatedShould this be performed at the bedside?->YesFINAL REPORT AP chest HISTORY: Intubation COMPARISON: 02/14/2017 IMPRESSION: Supportive lines unchanged. Lungs hypoinflated. Stable cardiac silhouette. Mild interstitial edema. Trace effusions. No pneumothorax. No appreciable interval change. Signed: Piter Arreguin MDReport Verified Date/Time: 02/15/2017 08:47: 41 Reading Location: [facility] Radiology Reading Room POCT-GLUCOSE [id number] 06:02:00 Test Item Value Reference Range Comments POC-GLUCOSE METER (BEAKER) 94 mg/dL 70-110 TESTED AT [facility] [address] [facility] (test wilc=8478) [facility] [address] CALCIUM, [id number] 05:35:00 Test Item Value Reference Range Comments CALCIUM IONIZED (BEAKER) (test bhnj=437) 1.10 mmol/L 1.12-1.27 PH, BLOOD (BEAKER) (test mirm=9615) 7.47 BLOOD [id number] 05:02:00 Test Item Value Reference Range Comments CULTURE (BEAKER) (test hzvs=6922) No growth in 5 days [id number] 04:56:00 Test Item Value Reference Range Comments PHOSPHORUS (BEAKER) (test ujcv=797) 3.1 mg/dL 2.3-4.7 [id number] 04:56:00 Test Item Value Reference Range Comments MAGNESIUM (BEAKER) (test tdbx=927) 2.3 mg/dL 1.6-2.6 BASIC METABOLIC [id number] 04:56:00 Test Item Value Reference Range Comments SODIUM (BEAKER) (test 151 meq/L 136-145 clzm=425) POTASSIUM (BEAKER) (test 4.3 meq/L 3.5-5.1 fbqq=342) CHLORIDE (BEAKER) (test 116 meq/L 98-107 qazb=722) CO2 (BEAKER) (test 26 meq/L 22-29 uoyk=202) BLOOD UREA NITROGEN 28 mg/dL 7-21 (BEAKER) (test hiue=415) CREATININE (BEAKER) (test 0.79 mg/dL 0.57-1.25 qknv=286) GLUCOSE RANDOM (BEAKER) 70 mg/dL 70-105 (test kszp=248) CALCIUM (BEAKER) (test 8.3 mg/dL 8.4-10.2 nxlh=550) EGFR (BEAKER) (test 101 mL/min/1.73 sq m ESTIMATED GFR IS NOT dcue=1669) ACCURATE CREATININE CLEARANCE IN PREDICTING GLOMERULAR FILTRATION RATE. ESTIMATED GFR IS NOT APPLICABLE FOR DIALYSIS PATIENTS. POCT-GLUCOSE [id number] 22:11:00 Test Item Value Reference Range Comments POC-GLUCOSE METER (BEAKER) 158 mg/dL 70-110 TESTED AT [facility] [address] [facility] (test uoaz=2101) [facility] [address] POCT-GLUCOSE [id number] 18:32:00 Test Item Value Reference Range Comments POC-GLUCOSE METER (BEAKER) 201 mg/dL 70-110 TESTED AT [facility] [address] [facility] (test ccgp=5316) [facility] [address] HEPARIN ASSAY - LOW MOLECULAR [id number] 15:54:00 Test Item Value Reference Range Comments LOVENOX-ANTI 10A (BEAKER) (test xlos=9454) 0.85 u/ml 0.60-2.00 Anti-Factor 10-A Level (Heparin Assay for Low Molecular Weight Heparin) Monitoring Guidelines: Blood samples should be obtained 4 hours post subcutaneous injection (time of Peak level) Therapeutic Peak Levels: 0.6-1.0 units/mL twice daily enoxaparin 1.0-2.0 units/mL once daily enoxaparinRef: CHEST 2012;141:[id number] draw 5 hours after Lovenox administration. Thank you!POCT-GLUCOSE [id number] 12:52:00 Test Item Value Reference Range Comments POC-GLUCOSE METER (BEAKER) 193 mg/dL 70-110 TESTED AT [place] [id number] [facility] (test vgth=4953) [place] [id number] POCT-GLUCOSE [id number] 08:10:00 Test Item Value Reference Range Comments POC-GLUCOSE METER (BEAKER) 194 mg/dL 70-110 TESTED AT [address] (test fpat=3067) [place] [address] RAD, CHEST, 1 VIEW, NON [id number] 07:56:00Reason for exam:-> IntubatedShould this be performed at the bedside?->YesFINAL REPORT Chest one view. Clinical history: Intubated Comparison: 2016 Discussion: A frontal chest is provided. Cardiomediastinal contours are unchanged. Lines and tubes are in stable position. Low lung volume with bibasilar atelectasis. No new consolidation. No pneumothorax. Probable small bilateral effusions. Signed: Mac Santamaria Verified Date/Time: 02/14/2017 07:56:55 Reading Location: [facility] Radiology Reading Room POCT-GLUCOSE [id number] 05:50:00 Test Item Value Reference Range Comments POC-GLUCOSE METER (BEAKER) 207 mg/dL 70-110 TESTED AT [address] (test wkdr=4888) [place] [address] CBC W/PLT COUNT & AUTO [id number] 04:20:00 Test Item Value Reference Range Comments WHITE BLOOD CELL COUNT (BEAKER) (test ieuw=807) 11.9 K/ L 3.5-10.5 RED BLOOD CELL COUNT (BEAKER) (test fbrf=500) 3.27 M/ L 4.63-6.08 HEMOGLOBIN (BEAKER) (test ycyy=498) 9.3 GM/DL 13.7-17.5 HEMATOCRIT (BEAKER) (test smzx=441) 30.4 % 40.1-51.0 MEAN CORPUSCULAR VOLUME (BEAKER) (test qbdh=638) 93.0 fL 79.0-92.2 MEAN CORPUSCULAR HEMOGLOBIN (BEAKER) (test 28.4 pg 25.7-32.2 ubzj=179) MEAN CORPUSCULAR HEMOGLOBIN CONC (BEAKER) (test 30.6 GM/DL 32.3-36.5 gokl=404) RED CELL DISTRIBUTION WIDTH (BEAKER) (test 14.4 % 11.6-14.4 lusi=669) PLATELET COUNT (BEAKER) (test hmgb=884) 421 K/CU MM 150-450 MEAN PLATELET VOLUME (BEAKER) (test oisw=583) 10.1 fL 9.4-12.4 NUCLEATED RED BLOOD CELLS (BEAKER) (test 0 /100 WBC 0-0 izgz=518) NEUTROPHILS RELATIVE PERCENT (BEAKER) (test 80 % xbzh=615) LYMPHOCYTES RELATIVE PERCENT (BEAKER) (test 10 % khxy=614) MONOCYTES RELATIVE PERCENT (BEAKER) (test 8 % pdzf=314) EOSINOPHILS RELATIVE PERCENT (BEAKER) (test 1 % khky=158) BASOPHILS RELATIVE PERCENT (BEAKER) (test 1 % unct=932) NEUTROPHILS ABSOLUTE COUNT (BEAKER) (test 9.46 K/ L 1.78-5.38 ufux=554) LYMPHOCYTES ABSOLUTE COUNT (BEAKER) (test 1.18 K/ L 1.32-3.57 nmxm=848) MONOCYTES ABSOLUTE COUNT (BEAKER) (test 0.93 K/ L 0.30-0.82 aold=221) EOSINOPHILS ABSOLUTE COUNT (BEAKER) (test 0.08 K/ L 0.04-0.54 says=132) BASOPHILS ABSOLUTE COUNT (BEAKER) (test 0.06 K/ L 0.01-0.08 qezt=180) IMMATURE GRANULOCYTES-RELATIVE PERCENT (BEAKER) 2 % 0-1 (test wijo=2475) [id number] 04:16:00 Test Item Value Reference Range Comments PHOSPHORUS (BEAKER) (test zvgh=256) 2.3 mg/dL 2.3-4.7 [id number] 04:16:00 Test Item Value Reference Range Comments MAGNESIUM (BEAKER) (test uhei=244) 2.3 mg/dL 1.6-2.6 BASIC METABOLIC [id number] 04:16:00 Test Item Value Reference Range Comments SODIUM (BEAKER) (test 149 meq/L 136-145 edvd=284) POTASSIUM (BEAKER) (test 4.4 meq/L 3.5-5.1 vxqk=391) CHLORIDE (BEAKER) (test 114 meq/L 98-107 ffrg=983) CO2 (BEAKER) (test 26 meq/L 22-29 wrej=891) BLOOD UREA NITROGEN 29 mg/dL 7-21 (BEAKER) (test kzhw=768) CREATININE (BEAKER) (test 0.91 mg/dL 0.57-1.25 gawu=800) GLUCOSE RANDOM (BEAKER) 185 mg/dL 70-105 (test hcnc=358) CALCIUM (BEAKER) (test 8.4 mg/dL 8.4-10.2 odrb=003) EGFR (BEAKER) (test 86 mL/min/1.73 sq m ESTIMATED GFR IS NOT qemf=6299) ACCURATE CREATININE CLEARANCE IN PREDICTING GLOMERULAR FILTRATION RATE. ESTIMATED GFR IS NOT APPLICABLE FOR DIALYSIS PATIENTS. PROTHROMBIN [id number] 03:57:00 Test Item Value Reference Range Comments PROTIME (BEAKER) (test lyud=730) 16.4 seconds 11.7-14.7 INR (BEAKER) (test revc=983) 1.3 <=5.9 RECOMMENDED COUMADIN/WARFARIN INR THERAPY RANGESSTANDARD DOSE: 2.0 - 3.0 Includes: PROPHYLAXIS forvenous thrombosis, systemic embolization; TREATMENT for venous thrombosis and/or pulmonary embolus.HIGH RISK: Target INR is 2.5-3.5 for patients with mechanical heart valves.CALCIUM, [id number] 03:35:00 Test Item Value Reference Range Comments CALCIUM IONIZED (BEAKER) (test nvhg=277) 1.09 mmol/L 1.12-1.27 PH, BLOOD (BEAKER) (test vwtv=1324) 7.46 POCT-GLUCOSE [id number] 00:32:00 Test Item Value Reference Range Comments POC-GLUCOSE METER (BEAKER) 256 mg/dL 70-110 TESTED AT [address] (test ulpi=4770) [facility] [address] POCT-GLUCOSE [id number] 21:46:00 Test Item Value Reference Range Comments POC-GLUCOSE METER (BEAKER) 293 mg/dL 70-110 TESTED AT [address] (test vorc=6974) [facility] [address] HEPARIN ASSAY - LOW MOLECULAR [id number] 18:03:00 Test Item Value Reference Range Comments LOVENOX-ANTI 10A (BEAKER) (test rgnz=5552) 0.97 u/ml 0.60-2.00 Anti-Factor 10-A Level (Heparin Assay for Low Molecular Weight Heparin) Monitoring Guidelines: Blood samples should be obtained 4 hours post subcutaneous injection (time of Peak level) Therapeutic Peak Levels: 0.6-1.0 units/mL twice daily enoxaparin 1.0-2.0 units/mL once daily enoxaparinRef: CHEST 2012;141:[id number] 17:02:00 Test Item Value Reference Range Comments POC-GLUCOSE METER ([employer]) 271 mg/dL 70-110 TESTED AT [address] (test hgkq=4369) [place] [id number] POCT-GLUCOSE [id number] 12:15:00 Test Item Value Reference Range Comments POC-GLUCOSE METER ([employer]) 283 mg/dL 70-110 TESTED AT [address] (test msnl=7153) [place] [address] MISCELLANEOUS LAB [id number] 10:55:00 Test Item Value Reference Range Comments SCAN RESULT (test qllu=[id number]) Result comments: Coagulase Negative Staphylococcus Species (CoNS) [...] required. This sample was tested at the [facility] Clinical Microbiology Laboratory using the [employer] Blood Culture ID Panel. This test is FDA cleared for in vitro diagnostic use and has been verified and approved by the [facility] Clinical Microbiology laboratory for clinical use. Reference Range: Not DetectedRAD, CHEST, 1 VIEW, NON [id number] 07:21:00Reason for exam:->IntubatedShould this be performed at the bedside ?->YesFINAL REPORT Chest, one view. HISTORY: Intubated COMPARISON: 02/12/2017 IMPRESSION: Supporting lines and tubes unchanged in position. Unchanged low lung volumes and mild bibasilar atelectasis. Cardiomediastinal silhouette is persistently enlarged. Trace bilateral pleural effusions. No pneumothorax. Signed: Hank Grayort Verified Date/Time: 02/13/2017 07:21:31 [facility] Electronically signed by: HANK GRAY MD on 07:21 AMPOCT-GLUCOSE [id number] 05:53:00 Test Item Value Reference Range Comments POC-GLUCOSE METER (BEAKER) 218 mg/dL 70-110 TESTED AT [facility] [address] [facility] (test haha=2944) [facility] [address] CBC W/PLT COUNT & AUTO [id number] 04:42:00 Test Item Value Reference Range Comments WHITE BLOOD CELL COUNT (BEAKER) (test uqzu=289) 11.6 K/ L 3.5-10.5 RED BLOOD CELL COUNT (BEAKER) (test gbav=174) 3.30 M/ L 4.63-6.08 HEMOGLOBIN (BEAKER) (test hpfd=066) 9.6 GM/DL 13.7-17.5 HEMATOCRIT (BEAKER) (test cxzy=033) 30.6 % 40.1-51.0 MEAN CORPUSCULAR VOLUME (BEAKER) (test gafu=163) 92.7 fL 79.0-92.2 MEAN CORPUSCULAR HEMOGLOBIN (BEAKER) (test 29.1 pg 25.7-32.2 xdvg=516) MEAN CORPUSCULAR HEMOGLOBIN CONC (BEAKER) (test 31.4 GM/DL 32.3-36.5 fngh=960) RED CELL DISTRIBUTION WIDTH (BEAKER) (test 14.2 % 11.6-14.4 muob=265) PLATELET COUNT (BEAKER) (test wylk=966) 382 K/CU MM 150-450 MEAN PLATELET VOLUME (BEAKER) (test zhnj=044) 10.1 fL 9.4-12.4 NUCLEATED RED BLOOD CELLS (BEAKER) (test 0 /100 WBC 0-0 dlto=793) NEUTROPHILS RELATIVE PERCENT (BEAKER) (test 82 % nkol=567) LYMPHOCYTES RELATIVE PERCENT (BEAKER) (test 8 % srar=966) MONOCYTES RELATIVE PERCENT (BEAKER) (test 7 % yvwc=922) EOSINOPHILS RELATIVE PERCENT (BEAKER) (test 1 % xiwv=064) BASOPHILS RELATIVE PERCENT (BEAKER) (test 0 % uggv=670) NEUTROPHILS ABSOLUTE COUNT (BEAKER) (test 9.45 K/ L 1.78-5.38 cuii=871) LYMPHOCYTES ABSOLUTE COUNT (BEAKER) (test 0.96 K/ L 1.32-3.57 klxj=585) MONOCYTES ABSOLUTE COUNT (BEAKER) (test 0.85 K/ L 0.30-0.82 ifla=421) EOSINOPHILS ABSOLUTE COUNT (BEAKER) (test 0.11 K/ L 0.04-0.54 nwra=706) BASOPHILS ABSOLUTE COUNT (BEAKER) (test 0.03 K/ L 0.01-0.08 fgmt=189) IMMATURE GRANULOCYTES-RELATIVE PERCENT (BEAKER) 1 % 0-1 (test xcda=9034) [id number] 04:10:00 Test Item Value Reference Range Comments PHOSPHORUS (BEAKER) (test hsgg=448) 2.8 mg/dL 2.3-4.7 [id number] 04:10:00 Test Item Value Reference Range Comments MAGNESIUM (BEAKER) (test sqrd=065) 2.1 mg/dL 1.6-2.6 BASIC METABOLIC [id number] 04:10:00 Test Item Value Reference Range Comments SODIUM (BEAKER) (test 146 meq/L 136-145 sgnx=519) POTASSIUM (BEAKER) (test 4.5 meq/L 3.5-5.1 jurr=721) CHLORIDE (BEAKER) (test 110 meq/L 98-107 ssvf=022) CO2 (BEAKER) (test 26 meq/L 22-29 ojsd=509) BLOOD UREA NITROGEN 30 mg/dL 7-21 (BEAKER) (test yzxx=768) CREATININE (BEAKER) (test 0.92 mg/dL 0.57-1.25 xfsd=246) GLUCOSE RANDOM (BEAKER) 197 mg/dL 70-105 (test ljjv=183) CALCIUM (BEAKER) (test 8.4 mg/dL 8.4-10.2 rlny=906) EGFR (BEAKER) (test 84 mL/min/1.73 sq m ESTIMATED GFR IS NOT ggua=1487) ACCURATE CREATININE CLEARANCE IN PREDICTING GLOMERULAR FILTRATION RATE. ESTIMATED GFR IS NOT APPLICABLE FOR DIALYSIS PATIENTS. PROTHROMBIN [id number] 04:06:00 Test Item Value Reference Range Comments PROTIME (BEAKER) (test rvwt=673) 16.4 seconds 11.7-14.7 INR (BEAKER) (test msla=420) 1.3 <=5.9 RECOMMENDED COUMADIN/WARFARIN INR THERAPY RANGESSTANDARD DOSE: 2.0 - 3.0 Includes: PROPHYLAXIS forvenous thrombosis, systemic embolization; TREATMENT for venous thrombosis and/or pulmonary embolus.HIGH RISK: Target INR is 2.5-3.5 for patients with mechanical heart valves.CALCIUM, [id number] 03:40:00 Test Item Value Reference Range Comments CALCIUM IONIZED (AKER) (test kysc=967) 1.10 mmol/L 1.12-1.27 PH, BLOOD ([facility]) (test kvwt=6370) 7.46 POCT-GLUCOSE [id number] 00:37:00 Test Item Value Reference Range Comments POC-GLUCOSE METER (BEAKER) 196 mg/dL 70-110 TESTED AT [address] (test evey=3908) [place] [id number] POCT-GLUCOSE [id number] 20:45:00 Test Item Value Reference Range Comments POC-GLUCOSE METER (BEAKER) 183 mg/dL 70-110 TESTED AT [address] (test fhfl=3729) [place] [address] POCT-GLUCOSE [id number] 17:50:00 Test Item Value Reference Range Comments POC-GLUCOSE METER (BEAKER) 216 mg/dL 70-110 TESTED AT [address] (test gxkx=2969) [place] [id number] CBC W/PLT COUNT & AUTO [id number] 15:43:00 Test Item Value Reference Range Comments WHITE BLOOD CELL COUNT (BEAKER) (test rpsi=812) 10.0 K/ L 3.5-10.5 RED BLOOD CELL COUNT (BEAKER) (test pjro=716) 3.41 M/ L 4.63-6.08 HEMOGLOBIN (BEAKER) (test jwyx=082) 9.8 GM/DL 13.7-17.5 HEMATOCRIT (BEAKER) (test elah=110) 31.8 % 40.1-51.0 MEAN CORPUSCULAR VOLUME (BEAKER) (test fjtn=747) 93.3 fL 79.0-92.2 MEAN CORPUSCULAR HEMOGLOBIN (BEAKER) (test 28.7 pg 25.7-32.2 lnbc=864) MEAN CORPUSCULAR HEMOGLOBIN CONC (BEAKER) (test 30.8 GM/DL 32.3-36.5 pipa=742) RED CELL DISTRIBUTION WIDTH (BEAKER) (test 14.3 % 11.6-14.4 bsbp=117) PLATELET COUNT (BEAKER) (test rijo=330) 383 K/CU MM 150-450 MEAN PLATELET VOLUME (BEAKER) (test zeui=700) 9.8 fL 9.4-12.4 NUCLEATED RED BLOOD CELLS (BEAKER) (test 0 /100 WBC 0-0 whkj=308) NEUTROPHILS RELATIVE PERCENT (BEAKER) (test 77 % vwmg=637) LYMPHOCYTES RELATIVE PERCENT (BEAKER) (test 10 % wnnx=784) MONOCYTES RELATIVE PERCENT (BEAKER) (test 7 % dgsh=103) EOSINOPHILS RELATIVE PERCENT (BEAKER) (test 4 % wdnm=663) BASOPHILS RELATIVE PERCENT (BEAKER) (test 0 % fkzl=393) NEUTROPHILS ABSOLUTE COUNT (BEAKER) (test 7.65 K/ L 1.78-5.38 vjee=207) LYMPHOCYTES ABSOLUTE COUNT (BEAKER) (test 1.02 K/ L 1.32-3.57 pvfi=789) MONOCYTES ABSOLUTE COUNT (BEAKER) (test 0.74 K/ L 0.30-0.82 nslt=123) EOSINOPHILS ABSOLUTE COUNT (BEAKER) (test 0.36 K/ L 0.04-0.54 ptta=473) BASOPHILS ABSOLUTE COUNT (BEAKER) (test 0.04 K/ L 0.01-0.08 pvbi=546) IMMATURE GRANULOCYTES-RELATIVE PERCENT (BEAKER) 1 % 0-1 (test vfrh=1564) HEPARIN ASSAY - LOW MOLECULAR [id number] 14:36:00 Test Item Value Reference Range Comments LOVENOX-ANTI 10A (BEAKER) (test wgzp=0762) 1.24 u/ml 0.60-2.00 Anti-Factor 10-A Level (Heparin Assay for Low Molecular Weight Heparin) Monitoring Guidelines: Blood samples should be obtained 4 hours post subcutaneous injection (time of Peak level) Therapeutic Peak Levels: 0.6-1.0 units/mL twice daily enoxaparin 1.0-2.0 units/mL once daily enoxaparinRef: CHEST 2012;141:[id number] 11:36:00 Test Item Value Reference Range Comments POC-GLUCOSE METER (BEAKER) 170 mg/dL 70-110 TESTED AT [place] [id number] [facility] (test qtuy=0233) [facility] [address] BLOOD [id number] 10:00:00 Test Item Value Reference Range Comments CULTURE (BEAKER) (test bela=5440) No growth in 5 days RAD, CHEST, 1 VIEW, NON [id number] 08:20:00Reason for exam:-> IntubatedShould this be performed [...] or aspiration cannot be excluded. Signed: [facility] Verified Date/Time: 02/12/2017 08:20 :14 Reading Location: [facility] Radiology Reading Room POCT-GLUCOSE [id number] 06:21:00 Test Item Value Reference Range Comments POC-GLUCOSE METER (BEAKER) 195 mg/dL 70-110 TESTED AT [place] [id number] [facility] (test xrcj=5160) [facility] [address] CALCIUM, [id number] 05:49:00 Test Item Value Reference Range Comments CALCIUM IONIZED (BEAKER) (test cegz=186) 1.11 mmol/L 1.12-1.27 PH, BLOOD (BEAKER) (test diay=2109) 7.45 [id number] 04:16:00 Test Item Value Reference Range Comments PHOSPHORUS (BEAKER) (test evce=750) 2.9 mg/dL 2.3-4.7 [id number] 04:16:00 Test Item Value Reference Range Comments MAGNESIUM (BEAKER) (test crke=935) 2.0 mg/dL 1.6-2.6 BASIC METABOLIC [id number] 04:16:00 Test Item Value Reference Range Comments SODIUM (BEAKER) (test 143 meq/L 136-145 ixtk=941) POTASSIUM (BEAKER) (test 4.6 meq/L 3.5-5.1 knqx=644) CHLORIDE (BEAKER) (test 110 meq/L 98-107 mltd=967) CO2 (BEAKER) (test 24 meq/L 22-29 ywry=849) BLOOD UREA NITROGEN 28 mg/dL 7-21 (BEAKER) (test otnv=237) CREATININE (BEAKER) (test 0.87 mg/dL 0.57-1.25 wpis=298) GLUCOSE RANDOM (BEAKER) 159 mg/dL 70-105 (test abgc=737) CALCIUM (BEAKER) (test 8.4 mg/dL 8.4-10.2 ujsk=937) EGFR (BEAKER) (test 90 mL/min/1.73 sq m ESTIMATED GFR IS NOT yrle=6989) ACCURATE CREATININE CLEARANCE IN PREDICTING GLOMERULAR FILTRATION RATE. ESTIMATED GFR IS NOT APPLICABLE FOR DIALYSIS PATIENTS. PROTHROMBIN [id number] 04:06:00 Test Item Value Reference Range Comments PROTIME (BEAKER) (test euwz=202) 16.2 seconds 11.7-14.7 INR (BEAKER) (test ulov=090) 1.3 <=5.9 RECOMMENDED COUMADIN/WARFARIN INR THERAPY RANGESSTANDARD DOSE: 2.0 - 3.0 Includes: PROPHYLAXIS forvenous thrombosis, systemic embolization; TREATMENT for venous thrombosis and/or pulmonary embolus.HIGH RISK: Target INR is 2.5-3.5 for patients with mechanical heart valves.POCT-GLUCOSE [id number] 23:43:00 Test Item Value Reference Range Comments POC-GLUCOSE METER (BEAKER) 113 mg/dL 70-110 TESTED AT [facility] [address] (test obep=3777) [facility] [address] POCT-GLUCOSE [id number] 22:24:00 Test Item Value Reference Range Comments POC-GLUCOSE METER (BEAKER) 130 mg/dL 70-110 TESTED AT [address] (test migk=5017) [facility] [address] POCT-GLUCOSE [id number] 17:28:00 Test Item Value Reference Range Comments POC-GLUCOSE METER (BEAKER) 130 mg/dL 70-110 TESTED AT [address] (test wwmz=9257) [facility] [address] POCT-GLUCOSE [id number] 11:32:00 Test Item Value Reference Range Comments POC-GLUCOSE METER (BEAKER) 159 mg/dL 70-110 TESTED AT [address] (test xpvb=7281) [facility] [address] CALCIUM, [id number] 07:42:00 Test Item Value Reference Range Comments CALCIUM IONIZED (BEAKER) (test qceo=623) 1.13 mmol/L 1.12-1.27 PH, BLOOD (BEAKER) (test jkve=1111) 7.43 [id number] 06:30:00 Test Item Value Reference Range Comments PHOSPHORUS (BEAKER) (test myhp=981) 2.7 mg/dL 2.3-4.7 [id number] 06:30:00 Test Item Value Reference Range Comments MAGNESIUM (BEAKER) (test zqwl=550) 1.9 mg/dL 1.6-2.6 BASIC METABOLIC [id number] 06:30:00 Test Item Value Reference Range Comments SODIUM (BEAKER) (test 144 meq/L 136-145 bchr=123) POTASSIUM (BEAKER) (test 4.4 meq/L 3.5-5.1 vkqh=263) CHLORIDE (BEAKER) (test 110 meq/L 98-107 tqiy=853) CO2 (BEAKER) (test 26 meq/L 22-29 docd=723) BLOOD UREA NITROGEN 27 mg/dL 7-21 (BEAKER) (test kvhn=573) CREATININE (BEAKER) (test 0.87 mg/dL 0.57-1.25 zpqf=420) GLUCOSE RANDOM (BEAKER) 176 mg/dL 70-105 (test xdha=795) CALCIUM (BEAKER) (test 8.3 mg/dL 8.4-10.2 yixa=543) EGFR (BEAKER) (test 90 mL/min/1.73 sq m ESTIMATED GFR IS NOT rzym=3327) ACCURATE CREATININE CLEARANCE IN PREDICTING GLOMERULAR FILTRATION RATE. ESTIMATED GFR IS NOT APPLICABLE FOR DIALYSIS PATIENTS. CBC W/PLT COUNT & AUTO [id number] 05:59:00 Test Item Value Reference Range Comments WHITE BLOOD CELL COUNT (BEAKER) (test xlrm=642) 7.8 K/ L 3.5-10.5 RED BLOOD CELL COUNT (BEAKER) (test ukxu=256) 3.32 M/ L 4.63-6.08 HEMOGLOBIN (BEAKER) (test tzxg=411) 9.4 GM/DL 13.7-17.5 HEMATOCRIT (BEAKER) (test cnrw=688) 30.8 % 40.1-51.0 MEAN CORPUSCULAR VOLUME (BEAKER) (test pnsp=021) 92.8 fL 79.0-92.2 MEAN CORPUSCULAR HEMOGLOBIN (BEAKER) (test 28.3 pg 25.7-32.2 flyk=689) MEAN CORPUSCULAR HEMOGLOBIN CONC (BEAKER) (test 30.5 GM/DL 32.3-36.5 ldso=093) RED CELL DISTRIBUTION WIDTH (BEAKER) (test 14.3 % 11.6-14.4 asyl=417) PLATELET COUNT (BEAKER) (test dung=667) 355 K/CU MM 150-450 MEAN PLATELET VOLUME (BEAKER) (test svbu=464) 10.4 fL 9.4-12.4 NUCLEATED RED BLOOD CELLS (BEAKER) (test 0 /100 WBC 0-0 dhbz=594) NEUTROPHILS RELATIVE PERCENT (BEAKER) (test 76 % ksrm=519) LYMPHOCYTES RELATIVE PERCENT (BEAKER) (test 11 % htjv=245) MONOCYTES RELATIVE PERCENT (BEAKER) (test 8 % olmk=492) EOSINOPHILS RELATIVE PERCENT (BEAKER) (test 4 % duju=824) BASOPHILS RELATIVE PERCENT (BEAKER) (test 1 % yyuf=920) NEUTROPHILS ABSOLUTE COUNT (BEAKER) (test 5.90 K/ L 1.78-5.38 sdxz=743) LYMPHOCYTES ABSOLUTE COUNT (BEAKER) (test 0.82 K/ L 1.32-3.57 fyjo=898) MONOCYTES ABSOLUTE COUNT (BEAKER) (test 0.63 K/ L 0.30-0.82 eest=607) EOSINOPHILS ABSOLUTE COUNT (BEAKER) (test 0.30 K/ L 0.04-0.54 zkzw=206) BASOPHILS ABSOLUTE COUNT (BEAKER) (test 0.05 K/ L 0.01-0.08 zjzx=426) IMMATURE GRANULOCYTES-RELATIVE PERCENT (BEAKER) 1 % 0-1 (test kojv=8807) PROTHROMBIN [id number] 05:47:00 Test Item Value Reference Range Comments PROTIME (BEAKER) (test ctco=734) 21.0 seconds 11.7-14.7 INR (BEAKER) (test iizv=741) 1.8 <=5.9 RECOMMENDED COUMADIN/WARFARIN INR THERAPY RANGESSTANDARD DOSE: 2.0 - 3.0 Includes: PROPHYLAXIS forvenous thrombosis, systemic embolization; TREATMENT for venous thrombosis and/or pulmonary embolus.HIGH RISK: Target INR is 2.5-3.5 for patients with mechanical heart valves.RAD, CHEST, 1 VIEW, NON [id number] 04:14:00Reason for exam:->IntubatedShould this be performed [...] MDReport Verified Date/Time: 02/11/2017 04:14:25 Reading Location: [address] Body Reading Room POCT-GLUCOSE [id number] 22:39:00 Test Item Value Reference Range Comments POC-GLUCOSE METER (BEAKER) 140 mg/dL 70-110 TESTED AT [facility] [address] [place] [address] (test tyhz=9154) [facility] [address] [address], [id number] 20:17:00Will need PO contrastFINAL REPORT CLINICAL HISTORY: [...] effusions and adjacent atelectasis versus pneumonitis. Signed: Nielsh Sheets MDReport Verified Date/Time: 02/10/2017 20: 17:54 Reading Location: [address] Reading Room SPUTUM CULTURE + GRAM [id number] 19:37:00 Test Item Value Reference Range Comments CULTURE (BEAKER) (test vsco=6515) No growth GRAM STAIN RESULT (BEAKER) (test 1+ WBCs sseg=2928) GRAM STAIN RESULT (BEAKER) (test 10-15 epithelial cells jksn=59199) GRAM STAIN RESULT (BEAKER) (test 1+ gram positive rods bjdv=06605) GRAM STAIN RESULT (BEAKER) (test <1+ budding yeast ciwh=901617) POCT-GLUCOSE [id number] 18:10:00 Test Item Value Reference Range Comments POC-GLUCOSE METER (BEAKER) 135 mg/dL 70-110 TESTED AT [address] (test rsqi=3015) [place] [address] URINE [id number] 13:18:00 Test Item Value Reference Range Comments CULTURE (BEAKER) (test itbg=0360) No growth POCT-GLUCOSE [id number] 12:21:00 Test Item Value Reference Range Comments POC-GLUCOSE METER (BEAKER) 252 mg/dL 70-110 TESTED AT [address] (test oihw=4436) [place] [address] POCT-GLUCOSE [id number] 05:16:00 Test Item Value Reference Range Comments POC-GLUCOSE METER (BEAKER) 155 mg/dL 70-110 TESTED AT [address] (test dxsk=4133) [place] [address] POCT-GLUCOSE [id number] 05:16:00 Test Item Value Reference Range Comments POC-GLUCOSE METER (BEAKER) 169 mg/dL 70-110 TESTED AT [address] (test tfvd=7089) [place] [address] POCT-GLUCOSE [id number] 04:39:00 Test Item Value Reference Range Comments POC-GLUCOSE METER (BEAKER) 151 mg/dL 70-110 TESTED AT [address] (test ybdd=3912) [place] [address] RAD, CHEST, 1 VIEW, NON [id number] 04:00:00Reason for exam:-> IntubatedShould this be performed at the bedside?->YesFINAL REPORT CLINICAL INDICATION: Support lines. Comparison: 02/09/2017 The cardiomediastinal contours are stable. The lung volumes remain low. Central pulmonary vascular congestion and bilateral parenchymal opacities are unchanged. There is no pneumothorax. Support lines are stable. Signed: Nilesh Sheets MDReport Verified Date/Time: 02/10/2017 04:00:58 Reading Location: [address] Reading Room CALCIUM, [id number] 03:45:00 Test Item Value Reference Range Comments CALCIUM IONIZED (BEAKER) (test kkzu=386) 1.09 mmol/L 1.12-1.27 PH, BLOOD (BEAKER) (test grup=4795) 7.49 PROTHROMBIN [id number] 03:22:00 Test Item Value Reference Range Comments PROTIME (BEAKER) (test lqtj=824) 16.3 seconds 11.7-14.7 INR (BEAKER) (test gxbn=478) 1.3 <=5.9 RECOMMENDED COUMADIN/WARFARIN INR THERAPY RANGESSTANDARD DOSE: 2.0 - 3.0 Includes: PROPHYLAXIS forvenous thrombosis, systemic embolization; TREATMENT for venous thrombosis and/or pulmonary embolus.HIGH RISK: Target INR is 2.5-3.5 for patients with mechanical heart valves.[id number] 03:19:00 Test Item Value Reference Range Comments PHOSPHORUS (BEAKER) (test wgob=387) 2.8 mg/dL 2.3-4.7 [id number] 03:19:00 Test Item Value Reference Range Comments MAGNESIUM (BEAKER) (test hiij=848) 2.0 mg/dL 1.6-2.6 BASIC METABOLIC [id number] 03:19:00 Test Item Value Reference Range Comments SODIUM (BEAKER) (test 145 meq/L 136-145 brcl=459) POTASSIUM (BEAKER) (test 4.6 meq/L 3.5-5.1 vaho=030) CHLORIDE (BEAKER) (test 114 meq/L 98-107 tnai=817) CO2 (BEAKER) (test 25 meq/L 22-29 aurz=995) BLOOD UREA NITROGEN 25 mg/dL 7-21 (BEAKER) (test uybk=393) CREATININE (BEAKER) (test 0.84 mg/dL 0.57-1.25 trfr=314) GLUCOSE RANDOM (BEAKER) 165 mg/dL 70-105 (test jssc=330) CALCIUM (BEAKER) (test 8.2 mg/dL 8.4-10.2 uapo=253) EGFR (BEAKER) (test 94 mL/min/1.73 sq m ESTIMATED GFR IS NOT tmso=6045) ACCURATE CREATININE CLEARANCE IN PREDICTING GLOMERULAR FILTRATION RATE. ESTIMATED GFR IS NOT APPLICABLE FOR DIALYSIS PATIENTS. CBC W/PLT COUNT & AUTO [id number] 03:09:00 Test Item Value Reference Range Comments WHITE BLOOD CELL COUNT (BEAKER) (test nrac=396) 7.0 K/ L 3.5-10.5 RED BLOOD CELL COUNT (BEAKER) (test ryby=679) 3.14 M/ L 4.63-6.08 HEMOGLOBIN (BEAKER) (test bull=870) 9.1 GM/DL 13.7-17.5 HEMATOCRIT (BEAKER) (test fvak=307) 29.1 % 40.1-51.0 MEAN CORPUSCULAR VOLUME (BEAKER) (test tamd=636) 92.7 fL 79.0-92.2 MEAN CORPUSCULAR HEMOGLOBIN (BEAKER) (test 29.0 pg 25.7-32.2 ojeu=563) MEAN CORPUSCULAR HEMOGLOBIN CONC (BEAKER) (test 31.3 GM/DL 32.3-36.5 zbch=776) RED CELL DISTRIBUTION WIDTH (BEAKER) (test 14.6 % 11.6-14.4 jbyz=723) PLATELET COUNT (BEAKER) (test rfoo=384) 339 K/CU MM 150-450 MEAN PLATELET VOLUME (BEAKER) (test rubt=682) 10.3 fL 9.4-12.4 NUCLEATED RED BLOOD CELLS (BEAKER) (test 0 /100 WBC 0-0 vxnk=548) NEUTROPHILS RELATIVE PERCENT (BEAKER) (test 77 % cfez=039) LYMPHOCYTES RELATIVE PERCENT (BEAKER) (test 10 % cfmg=682) MONOCYTES RELATIVE PERCENT (BEAKER) (test 9 % addg=409) EOSINOPHILS RELATIVE PERCENT (BEAKER) (test 3 % godv=520) BASOPHILS RELATIVE PERCENT (BEAKER) (test 0 % oloa=758) NEUTROPHILS ABSOLUTE COUNT (BEAKER) (test 5.41 K/ L 1.78-5.38 scif=873) LYMPHOCYTES ABSOLUTE COUNT (BEAKER) (test 0.71 K/ L 1.32-3.57 nxrb=091) MONOCYTES ABSOLUTE COUNT (BEAKER) (test 0.59 K/ L 0.30-0.82 tjko=059) EOSINOPHILS ABSOLUTE COUNT (BEAKER) (test 0.20 K/ L 0.04-0.54 uqam=877) BASOPHILS ABSOLUTE COUNT (BEAKER) (test 0.02 K/ L 0.01-0.08 zpuc=018) IMMATURE GRANULOCYTES-RELATIVE PERCENT (BEAKER) 1 % 0-1 (test qdzk=1490) POCT-GLUCOSE [id number] 17:14:00 Test Item Value Reference Range Comments POC-GLUCOSE METER (BEAKER) 169 mg/dL 70-110 TESTED AT [address] (test lerh=8969) [place] [id number] POCT-GLUCOSE [id number] 11:21:00 Test Item Value Reference Range Comments POC-GLUCOSE METER (BEAKER) 190 mg/dL 70-110 TESTED AT [address] (test dgbx=2073) [place] [address] POCT-GLUCOSE [id number] 08:18:00 Test Item Value Reference Range Comments POC-GLUCOSE METER (BEAKER) 216 mg/dL 70-110 TESTED AT [address] (test wbff=7509) [facility] [address] POCT-GLUCOSE [id number] 07:59:00 Test Item Value Reference Range Comments POC-GLUCOSE METER (BEAKER) 119 mg/dL 70-110 TESTED AT [address] (test bomv=1408) [place] [address] POCT-GLUCOSE [id number] 07:59:00 Test Item Value Reference Range Comments POC-GLUCOSE METER (BEAKER) 117 mg/dL 70-110 TESTED AT [address] (test xepa=2377) [place] [id number] RAD, CHEST, 1 VIEW, NON [id number] 05:04:00Reason for exam:-> IntubatedShould this be performed [...] MDReport Verified Date/Time: 02/09/2017 05:04:45 Reading Location: [facility] C013Y CT Body Reading Room CALCIUM, [id number] 04:43:00 Test Item Value Reference Range Comments CALCIUM IONIZED (BEAKER) (test xezr=101) 1.06 mmol/L 1.12-1.27 PH, BLOOD (BEAKER) (test tupr=3300) 7.50 [id number] 04:24:00 Test Item Value Reference Range Comments PHOSPHORUS (BEAKER) (test umux=884) 2.3 mg/dL 2.3-4.7 [id number] 04:24:00 Test Item Value Reference Range Comments MAGNESIUM (BEAKER) (test fidl=364) 2.1 mg/dL 1.6-2.6 BASIC METABOLIC [id number] 04:24:00 Test Item Value Reference Range Comments SODIUM (BEAKER) (test 148 meq/L 136-145 pbfw=920) POTASSIUM (BEAKER) (test 4.4 meq/L 3.5-5.1 xbcm=231) CHLORIDE (BEAKER) (test 117 meq/L 98-107 grvc=822) CO2 (BEAKER) (test 23 meq/L 22-29 xfun=075) BLOOD UREA NITROGEN 26 mg/dL 7-21 (BEAKER) (test vyqj=312) CREATININE (BEAKER) (test 0.82 mg/dL 0.57-1.25 ukmi=140) GLUCOSE RANDOM (BEAKER) 137 mg/dL 70-105 (test dmlv=492) CALCIUM (BEAKER) (test 8.0 mg/dL 8.4-10.2 vihr=980) EGFR (BEAKER) (test 96 mL/min/1.73 sq m ESTIMATED GFR IS NOT pbew=5293) ACCURATE CREATININE CLEARANCE IN PREDICTING GLOMERULAR FILTRATION RATE. ESTIMATED GFR IS NOT APPLICABLE FOR DIALYSIS PATIENTS. CBC W/PLT COUNT & AUTO [id number] 04:12:00 Test Item Value Reference Range Comments WHITE BLOOD CELL COUNT (BEAKER) (test ukgp=464) 7.7 K/ L 3.5-10.5 RED BLOOD CELL COUNT (BEAKER) (test idrp=225) 3.21 M/ L 4.63-6.08 HEMOGLOBIN (BEAKER) (test kegw=178) 9.4 GM/DL 13.7-17.5 HEMATOCRIT (BEAKER) (test tdxb=900) 30.0 % 40.1-51.0 MEAN CORPUSCULAR VOLUME (BEAKER) (test eiex=783) 93.5 fL 79.0-92.2 MEAN CORPUSCULAR HEMOGLOBIN (BEAKER) (test 29.3 pg 25.7-32.2 vpzf=516) MEAN CORPUSCULAR HEMOGLOBIN CONC (BEAKER) (test 31.3 GM/DL 32.3-36.5 dwls=778) RED CELL DISTRIBUTION WIDTH (BEAKER) (test 14.8 % 11.6-14.4 ttod=663) PLATELET COUNT (BEAKER) (test riey=974) 385 K/CU MM 150-450 MEAN PLATELET VOLUME (BEAKER) (test qkpn=171) 10.2 fL 9.4-12.4 NUCLEATED RED BLOOD CELLS (BEAKER) (test 0 /100 WBC 0-0 xing=923) NEUTROPHILS RELATIVE PERCENT (BEAKER) (test 76 % fcjm=507) LYMPHOCYTES RELATIVE PERCENT (BEAKER) (test 11 % wdky=162) MONOCYTES RELATIVE PERCENT (BEAKER) (test 9 % pkwf=743) EOSINOPHILS RELATIVE PERCENT (BEAKER) (test 3 % tiqf=594) BASOPHILS RELATIVE PERCENT (BEAKER) (test 0 % ptvd=987) NEUTROPHILS ABSOLUTE COUNT (BEAKER) (test 5.89 K/ L 1.78-5.38 hyrs=695) LYMPHOCYTES ABSOLUTE COUNT (BEAKER) (test 0.83 K/ L 1.32-3.57 ntuc=438) MONOCYTES ABSOLUTE COUNT (BEAKER) (test 0.70 K/ L 0.30-0.82 hsrt=958) EOSINOPHILS ABSOLUTE COUNT (BEAKER) (test 0.23 K/ L 0.04-0.54 qgph=072) BASOPHILS ABSOLUTE COUNT (BEAKER) (test 0.01 K/ L 0.01-0.08 fnhm=084) IMMATURE GRANULOCYTES-RELATIVE PERCENT (BEAKER) 1 % 0-1 (test uymx=2352) PROTHROMBIN [id number] 04:06:00 Test Item Value Reference Range Comments PROTIME (BEAKER) (test yihs=794) 17.1 seconds 11.7-14.7 INR (BEAKER) (test mobc=592) 1.4 <=5.9 RECOMMENDED COUMADIN/WARFARIN INR THERAPY RANGESSTANDARD DOSE: 2.0 - 3.0 Includes: PROPHYLAXIS forvenous thrombosis, systemic embolization; TREATMENT for venous thrombosis and/or pulmonary embolus.HIGH RISK: Target INR is 2.5-3.5 for patients with mechanical heart valves.POCT-GLUCOSE [id number] 03:44:00 Test Item Value Reference Range Comments POC-GLUCOSE METER (BEAKER) 136 mg/dL 70-110 TESTED AT [address] (test bczz=1361) [place] [address] POCT-GLUCOSE [id number] 20:12:00 Test Item Value Reference Range Comments POC-GLUCOSE METER (BEAKER) 127 mg/dL 70-110 TESTED AT [address] (test qeux=3332) [place] [address] POCT-GLUCOSE [id number] 17:44:00 Test Item Value Reference Range Comments POC-GLUCOSE METER (BEAKER) 128 mg/dL 70-110 TESTED AT [address] (test zsnq=8083) [place] [id number] POCT-GLUCOSE [id number] 12:19:00 Test Item Value Reference Range Comments POC-GLUCOSE METER (BEAKER) 175 mg/dL 70-110 TESTED AT [address] (test itli=5480) [place] [address] POCT-GLUCOSE [id number] 12:18:00 Test Item Value Reference Range Comments POC-GLUCOSE METER (BEAKER) 150 mg/dL 70-110 TESTED AT [address] (test rbmn=0423) [place] [address] OCCULT BLOOD, [id number] 08:45:00 Test Item Value Reference Range Comments FECAL OCCULT BLOOD (BEAKER) (test tzhd=094) Negative Negative CALCIUM, [id number] 05:59:00 Test Item Value Reference Range Comments CALCIUM IONIZED (BEAKER) (test rbjk=302) 1.11 mmol/L 1.12-1.27 PH, BLOOD (BEAKER) (test dseh=7022) 7.49 POCT-GLUCOSE [id number] 05:53:00 Test Item Value Reference Range Comments POC-GLUCOSE METER (BEAKER) 137 mg/dL 70-110 TESTED AT [facility] [address] [place] [address] (test rata=2140) [facility] [address] URINALYSIS W/ [id number] 05:36:00 Test Item Value Reference Range Comments COLOR (BEAKER) (test xhgx=375) Yellow CLARITY (BEAKER) (test ouio=806) Clear SPECIFIC GRAVITY UA (BEAKER) (test cyxn=534) 1.016 1.001-1.035 PH UA (BEAKER) (test rlti=073) 6.5 5.0-8.0 PROTEIN UA (BEAKER) (test zsiw=773) 50 mg/dL Negative GLUCOSE UA (BEAKER) (test mqiq=688) Negative Negative KETONES UA (BEAKER) (test zdgd=498) Negative Negative BILIRUBIN UA (BEAKER) (test rnyw=325) Negative Negative BLOOD UA (BEAKER) (test xsfa=793) Moderate Negative NITRITE UA (BEAKER) (test igap=094) Negative Negative LEUKOCYTE ESTERASE UA (BEAKER) (test krwl=785) Negative Negative UROBILINOGEN UA (BEAKER) (test uxjp=665) 0.2 mg/dL 0.2-1.0 RBC UA (BEAKER) (test qzyy=587) 2 /HPF WBC UA (BEAKER) (test ojdf=000) < /HPF SQUAMOUS EPITHELIAL (BEAKER) (test bmht=029) < /HPF AMORPHOUS CRYSTALS (BEAKER) (test zucf=1433) Occasional SOURCE(BEAKER) (test vxbm=1770) Urine, Malhotra RAD, CHEST, 1 VIEW, NON [id number] 04:44:00Reason for exam:-> IntubatedShould this be performed [...] MDReport Verified Date/Time: 02/08/2017 04:44:14 Reading Location: [address] Reading Room [id number] 04:36:00 Test Item Value Reference Range Comments PHOSPHORUS (BEAKER) (test olvr=913) 2.2 mg/dL 2.3-4.7 [id number] 04:36:00 Test Item Value Reference Range Comments MAGNESIUM (BEAKER) (test bxza=643) 2.2 mg/dL 1.6-2.6 BASIC METABOLIC [id number] 04:36:00 Test Item Value Reference Range Comments SODIUM (BEAKER) (test 148 meq/L 136-145 ksbk=388) POTASSIUM (BEAKER) (test 4.4 meq/L 3.5-5.1 pwfb=010) CHLORIDE (BEAKER) (test 117 meq/L 98-107 trlb=380) CO2 (BEAKER) (test 24 meq/L 22-29 qamz=254) BLOOD UREA NITROGEN 28 mg/dL 7-21 (BEAKER) (test pnra=334) CREATININE (BEAKER) (test 0.84 mg/dL 0.57-1.25 xcfz=365) GLUCOSE RANDOM (BEAKER) 139 mg/dL 70-105 (test ujrs=744) CALCIUM (BEAKER) (test 7.9 mg/dL 8.4-10.2 keyd=464) EGFR (BEAKER) (test 94 mL/min/1.73 sq m ESTIMATED GFR IS NOT gnvr=9318) ACCURATE CREATININE CLEARANCE IN PREDICTING GLOMERULAR FILTRATION RATE. ESTIMATED GFR IS NOT APPLICABLE FOR DIALYSIS PATIENTS. PROTHROMBIN [id number] 04:10:00 Test Item Value Reference Range Comments PROTIME (BEAKER) (test sgbh=449) 15.7 seconds 11.7-14.7 INR (BEAKER) (test rpke=252) 1.3 <=5.9 RECOMMENDED COUMADIN/WARFARIN INR THERAPY RANGESSTANDARD DOSE: 2.0 - 3.0 Includes: PROPHYLAXIS forvenous thrombosis, systemic embolization; TREATMENT for venous thrombosis and/or pulmonary embolus.HIGH RISK: Target INR is 2.5-3.5 for patients with mechanical heart valves.CBC W/PLT COUNT & AUTO [id number] 04:01:00 Test Item Value Reference Range Comments WHITE BLOOD CELL COUNT (BEAKER) (test bwfl=606) 8.9 K/ L 3.5-10.5 RED BLOOD CELL COUNT (BEAKER) (test rusy=638) 3.26 M/ L 4.63-6.08 HEMOGLOBIN (BEAKER) (test buos=136) 9.4 GM/DL 13.7-17.5 HEMATOCRIT (BEAKER) (test iinq=632) 30.5 % 40.1-51.0 MEAN CORPUSCULAR VOLUME (BEAKER) (test yfve=046) 93.6 fL 79.0-92.2 MEAN CORPUSCULAR HEMOGLOBIN (BEAKER) (test 28.8 pg 25.7-32.2 auzi=665) MEAN CORPUSCULAR HEMOGLOBIN CONC (BEAKER) (test 30.8 GM/DL 32.3-36.5 bwdh=591) RED CELL DISTRIBUTION WIDTH (BEAKER) (test 15.0 % 11.6-14.4 lvil=291) PLATELET COUNT (BEAKER) (test nyjt=333) 387 K/CU MM 150-450 MEAN PLATELET VOLUME (BEAKER) (test wuot=322) 10.5 fL 9.4-12.4 NUCLEATED RED BLOOD CELLS (BEAKER) (test 0 /100 WBC 0-0 ckim=016) NEUTROPHILS RELATIVE PERCENT (BEAKER) (test 79 % zzpd=581) LYMPHOCYTES RELATIVE PERCENT (BEAKER) (test 10 % zosu=911) MONOCYTES RELATIVE PERCENT (BEAKER) (test 8 % vyjk=698) EOSINOPHILS RELATIVE PERCENT (BEAKER) (test 2 % ahaf=437) BASOPHILS RELATIVE PERCENT (BEAKER) (test 0 % wgrm=955) NEUTROPHILS ABSOLUTE COUNT (BEAKER) (test 6.97 K/ L 1.78-5.38 oqlq=015) LYMPHOCYTES ABSOLUTE COUNT (BEAKER) (test 0.89 K/ L 1.32-3.57 ndlp=066) MONOCYTES ABSOLUTE COUNT (BEAKER) (test 0.71 K/ L 0.30-0.82 kwav=279) EOSINOPHILS ABSOLUTE COUNT (BEAKER) (test 0.21 K/ L 0.04-0.54 layl=712) BASOPHILS ABSOLUTE COUNT (BEAKER) (test 0.03 K/ L 0.01-0.08 hdbk=172) IMMATURE GRANULOCYTES-RELATIVE PERCENT (BEAKER) 1 % 0-1 (test cehf=1719) POCT-GLUCOSE [id number] 00:10:00 Test Item Value Reference Range Comments POC-GLUCOSE METER (BEAKER) 140 mg/dL 70-110 TESTED AT [address] (test qcrr=6142) [place] [address] OCCULT BLOOD, [id number] 22:02:00 Test Item Value Reference Range Comments FECAL OCCULT BLOOD (BEAKER) (test fbod=576) Positive Negative POCT-GLUCOSE [id number] 21:32:00 Test Item Value Reference Range Comments POC-GLUCOSE METER (BEAKER) 124 mg/dL 70-110 TESTED AT [address] (test brpr=0892) [place] [address] BLOOD [id number] 17:00:00 Test Item Value Reference Range Comments CULTURE (BEAKER) (test kbau=0424) No growth in 5 days BLOOD [id number] 17:00:00 Test Item Value Reference Range Comments CULTURE (BEAKER) (test zado=2261) No growth in 5 days POCT-GLUCOSE [id number] 16:03:00 Test Item Value Reference Range Comments POC-GLUCOSE METER (BEAKER) 163 mg/dL 70-110 TESTED AT [address] (test vvir=3528) [place] [id number] POCT-GLUCOSE [id number] 12:20:00 Test Item Value Reference Range Comments POC-GLUCOSE METER (BEAKER) 274 mg/dL 70-110 TESTED AT [address] (test lqjx=3257) [place] [id number] POCT-GLUCOSE [id number] 10:37:00 Test Item Value Reference Range Comments POC-GLUCOSE METER (BEAKER) 249 mg/dL 70-110 TESTED AT [address] (test mosn=3724) [place] [id number] CALCIUM, [id number] 05:51:00 Test Item Value Reference Range Comments CALCIUM IONIZED (BEAKER) (test ljjz=753) 1.04 mmol/L 1.12-1.27 PH, BLOOD (BEAKER) (test ruym=4794) 7.45 POCT-GLUCOSE [id number] 05:38:00 Test Item Value Reference Range Comments POC-GLUCOSE METER (BEAKER) 205 mg/dL 70-110 TESTED AT [facility] [address] [facility] (test zbiy=7721) [facility] [address] BASIC METABOLIC [id number] 05:14:00 Test Item Value Reference Range Comments SODIUM (BEAKER) (test 149 meq/L 136-145 zzbn=793) POTASSIUM (BEAKER) (test 4.3 meq/L 3.5-5.1 nztu=773) CHLORIDE (BEAKER) (test 118 meq/L 98-107 rqkg=557) CO2 (BEAKER) (test 24 meq/L 22-29 uwar=958) BLOOD UREA NITROGEN 33 mg/dL 7-21 (BEAKER) (test xgcb=311) CREATININE (BEAKER) (test 1.02 mg/dL 0.57-1.25 iqil=172) GLUCOSE RANDOM (BEAKER) 233 mg/dL 70-105 (test ufah=688) CALCIUM (BEAKER) (test 7.7 mg/dL 8.4-10.2 tbki=043) EGFR (BEAKER) (test 75 mL/min/1.73 sq m ESTIMATED GFR IS NOT hzpx=8950) ACCURATE CREATININE CLEARANCE IN PREDICTING GLOMERULAR FILTRATION RATE. ESTIMATED GFR IS NOT APPLICABLE FOR DIALYSIS PATIENTS. [id number] 05:13:00 Test Item Value Reference Range Comments PHOSPHORUS (BEAKER) (test lkfl=397) 2.2 mg/dL 2.3-4.7 [id number] 05:13:00 Test Item Value Reference Range Comments MAGNESIUM (BEAKER) (test srce=067) 2.2 mg/dL 1.6-2.6 PROTHROMBIN [id number] 04:29:00 Test Item Value Reference Range Comments PROTIME (BEAKER) (test lctl=600) 16.6 seconds 11.7-14.7 INR (BEAKER) (test qbax=931) 1.3 <=5.9 RECOMMENDED COUMADIN/WARFARIN INR THERAPY RANGESSTANDARD DOSE: 2.0 - 3.0 Includes: PROPHYLAXIS forvenous thrombosis, systemic embolization; TREATMENT for venous thrombosis and/or pulmonary embolus.HIGH RISK: Target INR is 2.5-3.5 for patients with mechanical heart valves.CBC W/PLT COUNT & AUTO [id number] 04:28:00 Test Item Value Reference Range Comments WHITE BLOOD CELL COUNT (BEAKER) (test oewx=844) 9.6 K/ L 3.5-10.5 RED BLOOD CELL COUNT (BEAKER) (test dyxp=529) 3.12 M/ L 4.63-6.08 HEMOGLOBIN (BEAKER) (test cxva=239) 9.2 GM/DL 13.7-17.5 HEMATOCRIT (BEAKER) (test vklx=612) 29.9 % 40.1-51.0 MEAN CORPUSCULAR VOLUME (BEAKER) (test jgvk=935) 95.8 fL 79.0-92.2 MEAN CORPUSCULAR HEMOGLOBIN (BEAKER) (test 29.5 pg 25.7-32.2 inbw=224) MEAN CORPUSCULAR HEMOGLOBIN CONC (BEAKER) (test 30.8 GM/DL 32.3-36.5 sosu=323) RED CELL DISTRIBUTION WIDTH (BEAKER) (test 15.2 % 11.6-14.4 qzjk=496) PLATELET COUNT (BEAKER) (test qdcm=499) 376 K/CU MM 150-450 MEAN PLATELET VOLUME (BEAKER) (test jgtw=329) 10.7 fL 9.4-12.4 NUCLEATED RED BLOOD CELLS (BEAKER) (test 0 /100 WBC 0-0 srwv=001) NEUTROPHILS RELATIVE PERCENT (BEAKER) (test 83 % uhrx=368) LYMPHOCYTES RELATIVE PERCENT (BEAKER) (test 7 % ksfr=767) MONOCYTES RELATIVE PERCENT (BEAKER) (test 6 % oloh=276) EOSINOPHILS RELATIVE PERCENT (BEAKER) (test 3 % emol=411) BASOPHILS RELATIVE PERCENT (BEAKER) (test 0 % thuy=174) NEUTROPHILS ABSOLUTE COUNT (BEAKER) (test 7.97 K/ L 1.78-5.38 pmze=759) LYMPHOCYTES ABSOLUTE COUNT (BEAKER) (test 0.71 K/ L 1.32-3.57 kwuk=762) MONOCYTES ABSOLUTE COUNT (BEAKER) (test 0.62 K/ L 0.30-0.82 ksfp=705) EOSINOPHILS ABSOLUTE COUNT (BEAKER) (test 0.25 K/ L 0.04-0.54 exza=281) BASOPHILS ABSOLUTE COUNT (BEAKER) (test 0.03 K/ L 0.01-0.08 icfo=659) IMMATURE GRANULOCYTES-RELATIVE PERCENT (BEAKER) 1 % 0-1 (test dcne=5847) POCT-GLUCOSE [id number] 03:51:00 Test Item Value Reference Range Comments POC-GLUCOSE METER (BEAKER) 252 mg/dL 70-110 TESTED AT [address] (test aqxh=5166) [place] [address] POCT-GLUCOSE [id number] 03:51:00 Test Item Value Reference Range Comments POC-GLUCOSE METER (BEAKER) 215 mg/dL 70-110 TESTED AT [address] (test ltpt=7193) [place] [address] RAD, CHEST, 1 VIEW, NON [id number] 03:34:00Reason for exam:-> IntubatedShould this be performed at the bedside?->YesFINAL REPORT CLINICAL INDICATION: Support lines. Comparison: 02/06/2017 The cardiomediastinal contours are stable. The lung volumes remain low. Central pulmonary vascular congestion and bilateral parenchymal opacities are similar to previous. There is no pneumothorax. Support lines are stable. Signed: Nilesh Sheets Verified Date/Time: 02/07/2017 03:34:27 Reading Location: [address] Reading Room POCT-GLUCOSE [id number] 23:16:00 Test Item Value Reference Range Comments POC-GLUCOSE METER (BEAKER) 154 mg/dL 70-110 TESTED AT [address] (test jlwf=7136) [place] [id number] POCT-GLUCOSE [id number] 21:33:00 Test Item Value Reference Range Comments POC-GLUCOSE METER (BEAKER) 96 mg/dL 70-110 TESTED AT [address] (test twqa=5741) [place] [address] POCT-GLUCOSE [id number] 20:08:00 Test Item Value Reference Range Comments POC-GLUCOSE METER (BEAKER) 113 mg/dL 70-110 TESTED AT [address] (test lswm=1625) [facility] [address] POCT-GLUCOSE [id number] 18:24:00 Test Item Value Reference Range Comments POC-GLUCOSE METER (BEAKER) 107 mg/dL 70-110 TESTED AT [address] (test wvor=2590) [facility] [address] POCT-GLUCOSE [id number] 17:20:00 Test Item Value Reference Range Comments POC-GLUCOSE METER (BEAKER) 84 mg/dL 70-110 TESTED AT [address] (test uzwc=7294) [facility] [address] POCT-GLUCOSE [id number] 16:09:00 Test Item Value Reference Range Comments POC-GLUCOSE METER (BEAKER) 80 mg/dL 70-110 TESTED AT [address] (test piby=1411) [facility] [address] POCT-GLUCOSE [id number] 15:13:00 Test Item Value Reference Range Comments POC-GLUCOSE METER (BEAKER) 85 mg/dL 70-110 TESTED AT [address] (test bccn=0290) [facility] [address] POCT-GLUCOSE [id number] 13:10:00 Test Item Value Reference Range Comments POC-GLUCOSE METER (BEAKER) 132 mg/dL 70-110 TESTED AT [address] (test qoug=7682) [facility] [address] POCT-GLUCOSE [id number] 11:07:00 Test Item Value Reference Range Comments POC-GLUCOSE METER (BEAKER) 131 mg/dL 70-110 TESTED AT [address] (test emis=2312) [facility] [address] POCT-GLUCOSE [id number] 11:07:00 Test Item Value Reference Range Comments POC-GLUCOSE METER (BEAKER) 95 mg/dL 70-110 TESTED AT [address] (test tfzy=7618) [facility] [address] POCT-GLUCOSE [id number] 10:10:00 Test Item Value Reference Range Comments POC-GLUCOSE METER (BEAKER) 180 mg/dL 70-110 TESTED AT [address] (test zfwh=1887) [facility] [address] POCT-GLUCOSE [id number] 07:08:00 Test Item Value Reference Range Comments POC-GLUCOSE METER (BEAKER) 129 mg/dL 70-110 TESTED AT [facility] [address] (test xene=6452) [facility] [address] CALCIUM, [id number] 05:12:00 Test Item Value Reference Range Comments CALCIUM IONIZED (BEAKER) (test gukv=934) 1.05 mmol/L 1.12-1.27 PH, BLOOD (BEAKER) (test xybj=2027) 7.52 CBC W/PLT COUNT & AUTO [id number] 05:12:00 Test Item Value Reference Range Comments WHITE BLOOD CELL COUNT (BEAKER) (test yjmk=799) 10.6 K/ L 3.5-10.5 RED BLOOD CELL COUNT (BEAKER) (test ixwg=274) 3.18 M/ L 4.63-6.08 HEMOGLOBIN (BEAKER) (test yrnx=222) 9.4 GM/DL 13.7-17.5 HEMATOCRIT (BEAKER) (test iurz=420) 30.5 % 40.1-51.0 MEAN CORPUSCULAR VOLUME (BEAKER) (test cimr=927) 95.9 fL 79.0-92.2 MEAN CORPUSCULAR HEMOGLOBIN (BEAKER) (test 29.6 pg 25.7-32.2 dwlr=912) MEAN CORPUSCULAR HEMOGLOBIN CONC (BEAKER) (test 30.8 GM/DL 32.3-36.5 gebs=357) RED CELL DISTRIBUTION WIDTH (BEAKER) (test 15.0 % 11.6-14.4 euiq=603) PLATELET COUNT (BEAKER) (test uejg=470) 425 K/CU MM 150-450 MEAN PLATELET VOLUME (BEAKER) (test sjfu=638) 10.8 fL 9.4-12.4 NUCLEATED RED BLOOD CELLS (BEAKER) (test 0 /100 WBC 0-0 rmza=238) NEUTROPHILS RELATIVE PERCENT (BEAKER) (test 84 % iacn=571) LYMPHOCYTES RELATIVE PERCENT (BEAKER) (test 7 % fdqf=157) MONOCYTES RELATIVE PERCENT (BEAKER) (test 6 % eytu=930) EOSINOPHILS RELATIVE PERCENT (BEAKER) (test 3 % wfme=393) BASOPHILS RELATIVE PERCENT (BEAKER) (test 0 % mrie=093) NEUTROPHILS ABSOLUTE COUNT (BEAKER) (test 8.81 K/ L 1.78-5.38 jdzx=289) LYMPHOCYTES ABSOLUTE COUNT (BEAKER) (test 0.69 K/ L 1.32-3.57 eyxj=465) MONOCYTES ABSOLUTE COUNT (BEAKER) (test 0.60 K/ L 0.30-0.82 ocra=645) EOSINOPHILS ABSOLUTE COUNT (BEAKER) (test 0.34 K/ L 0.04-0.54 jvoc=839) BASOPHILS ABSOLUTE COUNT (BEAKER) (test 0.03 K/ L 0.01-0.08 glrn=072) IMMATURE GRANULOCYTES-RELATIVE PERCENT (BEAKER) 1 % 0-1 (test fbhz=5928) BASIC METABOLIC [id number] 05:10:00 Test Item Value Reference Range Comments SODIUM (BEAKER) (test 149 meq/L 136-145 gvux=829) POTASSIUM (BEAKER) (test 3.9 meq/L 3.5-5.1 nfnr=917) CHLORIDE (BEAKER) (test 116 meq/L 98-107 nabf=273) CO2 (BEAKER) (test 26 meq/L 22-29 nnfk=814) BLOOD UREA NITROGEN 35 mg/dL 7-21 (BEAKER) (test iebg=150) CREATININE (BEAKER) (test 0.92 mg/dL 0.57-1.25 mbxu=013) GLUCOSE RANDOM (BEAKER) 111 mg/dL 70-105 (test utgx=889) CALCIUM (BEAKER) (test 7.7 mg/dL 8.4-10.2 uzsq=541) EGFR (BEAKER) (test 84 mL/min/1.73 sq m ESTIMATED GFR IS NOT woyn=4237) ACCURATE CREATININE CLEARANCE IN PREDICTING GLOMERULAR FILTRATION RATE. ESTIMATED GFR IS NOT APPLICABLE FOR DIALYSIS PATIENTS. [id number] 05:07:00 Test Item Value Reference Range Comments PHOSPHORUS (BEAKER) (test znwj=293) 2.1 mg/dL 2.3-4.7 [id number] 05:07:00 Test Item Value Reference Range Comments MAGNESIUM (BEAKER) (test lxml=363) 2.2 mg/dL 1.6-2.6 [id number] 05:03:00 Test Item Value Reference Range Comments PARTIAL THROMBOPLASTIN TIME (BEAKER) (test 52.1 seconds 22.5-36.0 vgjx=008) PROTHROMBIN TIME/[id number] 05:02:00 Test Item Value Reference Range Comments PROTIME (BEAKER) (test njto=506) 16.6 seconds 11.7-14.7 INR (BEAKER) (test pyed=675) 1.4 <=5.9 RECOMMENDED COUMADIN/WARFARIN INR THERAPY RANGESSTANDARD DOSE: 2.0 - 3.0 Includes: PROPHYLAXIS forvenous thrombosis, systemic embolization; TREATMENT for venous thrombosis and/or pulmonary embolus.HIGH RISK: Target INR is 2.5-3.5 for patients with mechanical heart valves.POCT-GLUCOSE [id number] 04:10:00 Test Item Value Reference Range Comments POC-GLUCOSE METER (BEAKER) 112 mg/dL 70-110 TESTED AT [address] (test ulnf=1264) [place] [address] RAD, CHEST, 1 VIEW, NON [id number] 03:41:00Reason for exam:-> IntubatedShould this be performed at the bedside?->YesFINAL REPORT CLINICAL INDICATION: Support lines. Comparison: 02/05/2017 The cardiomediastinal contours are stable. The lung volumes remain low. Central pulmonary vascular prominence and bilateral parenchymal opacities are unchanged. There is no pneumothorax. Support lines are stable. Signed: Nilesh Sheets Verified Date/Time: 02/06/2017 03:41:22 Reading Location: [address] Reading Room POCT-GLUCOSE [id number] 01:49:00 Test Item Value Reference Range Comments POC-GLUCOSE METER (BEAKER) 121 mg/dL 70-110 TESTED AT [address] (test topu=2575) [place] [id number] POCT-GLUCOSE [id number] 00:40:00 Test Item Value Reference Range Comments POC-GLUCOSE METER (BEAKER) 119 mg/dL 70-110 TESTED AT [address] (test kdil=5116) [place] [address] POCT-GLUCOSE [id number] 23:53:00 Test Item Value Reference Range Comments POC-GLUCOSE METER (BEAKER) 131 mg/dL 70-110 TESTED AT [address] (test xvpk=5334) [facility] [address] POCT-GLUCOSE [id number] 20:41:00 Test Item Value Reference Range Comments POC-GLUCOSE METER (BEAKER) 142 mg/dL 70-110 TESTED AT [address] (test xsez=1216) [facility] [address] POCT-GLUCOSE [id number] 19:19:00 Test Item Value Reference Range Comments POC-GLUCOSE METER (BEAKER) 141 mg/dL 70-110 TESTED AT [address] (test pzla=3312) [place] [address] POCT-GLUCOSE [id number] 17:42:00 Test Item Value Reference Range Comments POC-GLUCOSE METER (BEAKER) 134 mg/dL 70-110 TESTED AT [address] (test hiod=8174) [place] [address] POCT-GLUCOSE [id number] 15:23:00 Test Item Value Reference Range Comments POC-GLUCOSE METER (BEAKER) 124 mg/dL 70-110 TESTED AT [address] (test rgkb=8706) [place] [address] DIGOXIN [id number] 14:13:00 Test Item Value Reference Range Comments DIGOXIN LEVEL (BEAKER) (test uacr=473) 1.0 ng/mL 0.8-2.0 POCT-GLUCOSE [id number] 12:47:00 Test Item Value Reference Range Comments POC-GLUCOSE METER (BEAKER) 117 mg/dL 70-110 TESTED AT [address] (test jtdw=8764) [place] [address] POCT-GLUCOSE [id number] 10:16:00 Test Item Value Reference Range Comments POC-GLUCOSE METER (BEAKER) 114 mg/dL 70-110 TESTED AT [address] (test ggco=1745) [place] [address] POCT-GLUCOSE [id number] 08:04:00 Test Item Value Reference Range Comments POC-GLUCOSE METER (BEAKER) 111 mg/dL 70-110 TESTED AT [address] (test nfme=7296) [place] [address] CALCIUM, [id number] 06:47:00 Test Item Value Reference Range Comments CALCIUM IONIZED (BEAKER) (test lowf=951) 1.06 mmol/L 1.12-1.27 PH, BLOOD (BEAKER) (test pdpt=9594) 7.51 POCT-GLUCOSE [id number] 06:34:00 Test Item Value Reference Range Comments POC-GLUCOSE METER (BEAKER) 147 mg/dL 70-110 TESTED AT [facility] [address] [facility] (test ypmb=4834) [facility] [address] RAD, CHEST, 1 VIEW, NON [id number] 05:31:00Reason for exam:-> IntubatedShould this be performed [...] Atelectatic changes on the left with associated vswmm-gw-fbpsdevw pleural effusion. Focal airspace disease noted in the right parahilar region. No pneumothorax.Heart and mediastinum: Mediastinal contours are partially obscured and suboptimally evaluated.Additional findings: None. Signed: JR Nguyen Robert MDReport Verified Date/Time: 02/05/2017 05:31:31 Reading Location: [address] Body Reading Room BASIC METABOLIC [id number] 05:17:00 Test Item Value Reference Range Comments SODIUM (BEAKER) (test 153 meq/L 136-145 sbit=801) POTASSIUM (BEAKER) (test 3.7 meq/L 3.5-5.1 dwkd=227) CHLORIDE (BEAKER) (test 117 meq/L 98-107 ibij=451) CO2 (BEAKER) (test 29 meq/L 22-29 ybpt=374) BLOOD UREA NITROGEN 36 mg/dL 7-21 (BEAKER) (test svui=219) CREATININE (BEAKER) (test 1.03 mg/dL 0.57-1.25 gwbe=309) GLUCOSE RANDOM (BEAKER) 141 mg/dL 70-105 (test ldkd=484) CALCIUM (BEAKER) (test 7.7 mg/dL 8.4-10.2 akcf=028) EGFR (BEAKER) (test 74 mL/min/1.73 sq m ESTIMATED GFR IS NOT bmyn=5531) ACCURATE CREATININE CLEARANCE IN PREDICTING GLOMERULAR FILTRATION RATE. ESTIMATED GFR IS NOT APPLICABLE FOR DIALYSIS PATIENTS. [id number] 04:54:00 Test Item Value Reference Range Comments PHOSPHORUS (BEAKER) (test eyfh=165) 2.2 mg/dL 2.3-4.7 [id number] 04:54:00 Test Item Value Reference Range Comments MAGNESIUM (BEAKER) (test maze=799) 2.5 mg/dL 1.6-2.6 [id number] 04:41:00 Test Item Value Reference Range Comments PARTIAL THROMBOPLASTIN TIME (BEAKER) (test 89.2 seconds 22.5-36.0 vctp=159) PROTHROMBIN TIME/[id number] 04:39:00 Test Item Value Reference Range Comments PROTIME (BEAKER) (test pccj=942) 16.8 seconds 11.7-14.7 INR (BEAKER) (test qiyh=997) 1.4 <=5.9 RECOMMENDED COUMADIN/WARFARIN INR THERAPY RANGESSTANDARD DOSE: 2.0 - 3.0 Includes: PROPHYLAXIS forvenous thrombosis, systemic embolization; TREATMENT for venous thrombosis and/or pulmonary embolus.HIGH RISK: Target INR is 2.5-3.5 for patients with mechanical heart valves.CBC W/PLT COUNT & AUTO [id number] 04:35:00 Test Item Value Reference Range Comments WHITE BLOOD CELL COUNT (BEAKER) (test qjsg=483) 14.8 K/ L 3.5-10.5 RED BLOOD CELL COUNT (BEAKER) (test jbym=977) 3.40 M/ L 4.63-6.08 HEMOGLOBIN (BEAKER) (test vcks=103) 9.8 GM/DL 13.7-17.5 HEMATOCRIT (BEAKER) (test vgpt=960) 32.5 % 40.1-51.0 MEAN CORPUSCULAR VOLUME (BEAKER) (test nwzf=553) 95.6 fL 79.0-92.2 MEAN CORPUSCULAR HEMOGLOBIN (BEAKER) (test 28.8 pg 25.7-32.2 mmcf=154) MEAN CORPUSCULAR HEMOGLOBIN CONC (BEAKER) (test 30.2 GM/DL 32.3-36.5 cxqd=542) RED CELL DISTRIBUTION WIDTH (BEAKER) (test 15.1 % 11.6-14.4 zkkm=993) PLATELET COUNT (BEAKER) (test qsdx=321) 443 K/CU MM 150-450 MEAN PLATELET VOLUME (BEAKER) (test cmhy=598) 10.7 fL 9.4-12.4 NUCLEATED RED BLOOD CELLS (BEAKER) (test 0 /100 WBC 0-0 ezwy=071) NEUTROPHILS RELATIVE PERCENT (BEAKER) (test 88 % vdwa=039) LYMPHOCYTES RELATIVE PERCENT (BEAKER) (test 6 % qroc=266) MONOCYTES RELATIVE PERCENT (BEAKER) (test 4 % hyiv=909) EOSINOPHILS RELATIVE PERCENT (BEAKER) (test 2 % mlxa=028) BASOPHILS RELATIVE PERCENT (BEAKER) (test 0 % yycn=312) NEUTROPHILS ABSOLUTE COUNT (BEAKER) (test 12.99 K/ L 1.78-5.38 rhnp=762) LYMPHOCYTES ABSOLUTE COUNT (BEAKER) (test 0.81 K/ L 1.32-3.57 ntqd=041) MONOCYTES ABSOLUTE COUNT (BEAKER) (test 0.60 K/ L 0.30-0.82 frqi=439) EOSINOPHILS ABSOLUTE COUNT (BEAKER) (test 0.24 K/ L 0.04-0.54 zjsg=621) BASOPHILS ABSOLUTE COUNT (BEAKER) (test 0.03 K/ L 0.01-0.08 dwaj=667) IMMATURE GRANULOCYTES-RELATIVE PERCENT (BEAKER) 1 % 0-1 (test flwt=4845) U/S, ABDOMINAL, [id number] 04:24:00Abdomen limited area? Add comment if clarification [...] MDReport Verified Date/Time: 02/05/2017 04:24:48 Reading Location: [address] Body Reading Room POCT-GLUCOSE [id number] 04:08:00 Test Item Value Reference Range Comments POC-GLUCOSE METER (BEAKER) 139 mg/dL 70-110 TESTED AT [address] (test louy=2148) [facility] [address] POCT-GLUCOSE [id number] 02:15:00 Test Item Value Reference Range Comments POC-GLUCOSE METER (BEAKER) 140 mg/dL 70-110 TESTED AT [address] (test ilms=5171) [facility] [address] POCT-GLUCOSE [id number] 00:41:00 Test Item Value Reference Range Comments POC-GLUCOSE METER (BEAKER) 135 mg/dL 70-110 TESTED AT [address] (test zjwb=6491) [facility] [address] POCT-GLUCOSE [id number] 23:22:00 Test Item Value Reference Range Comments POC-GLUCOSE METER (BEAKER) 145 mg/dL 70-110 TESTED AT [address] (test wxug=1291) [place] [address] POCT-GLUCOSE [id number] 21:46:00 Test Item Value Reference Range Comments POC-GLUCOSE METER (BEAKER) 174 mg/dL 70-110 TESTED AT [address] (test wqbe=3205) [facility] [address] POCT-GLUCOSE [id number] 19:07:00 Test Item Value Reference Range Comments POC-GLUCOSE METER (BEAKER) 137 mg/dL 70-110 TESTED AT [address] (test fnhe=5533) [facility] [address] POCT-GLUCOSE [id number] 17:59:00 Test Item Value Reference Range Comments POC-GLUCOSE METER (BEAKER) 147 mg/dL 70-110 TESTED AT [address] (test lgyv=4376) [place] [address] POCT-GLUCOSE [id number] 17:05:00 Test Item Value Reference Range Comments POC-GLUCOSE METER (BEAKER) 117 mg/dL 70-110 TESTED AT [address] (test xqnc=5472) [place] [address] BLOOD [id number] 17:00:00 Test Item Value Reference Range Comments CULTURE (BEAKER) (test eyyz=9050) No growth in 5 days RAD, ABDOMEN/KUB, 1 VIEW [id number] 17:00:00Reason for exam:->corpak placementFINAL REPORT EXAM: AP [...] MDReport Verified Date/Time: 02/04/2017 17:00:34 Reading Location: [facility] Reading Room 05 :00 PMPOCT-GLUCOSE [id number] 16:02:00 Test Item Value Reference Range Comments POC-GLUCOSE METER (BEAKER) 140 mg/dL 70-110 TESTED AT [address] (test vgci=3865) [place] [address] POCT-GLUCOSE [id number] 14:44:00 Test Item Value Reference Range Comments POC-GLUCOSE METER (BEAKER) 147 mg/dL 70-110 TESTED AT [facility] [address] (test gzgo=8161) [facility] [address] RAD, CHEST, 1 VIEW, NON [id number] 13:45:00Reason for exam:->ETT exchangedFINAL REPORT Chest one [...] Suspect a small left effusion. Signed: Mac Santamariaeport Verified Date/Time: 02/04/2017 13:45: 22 Reading Location: [address] Consult Reading Room EEG RECORDING IN COMA/SLEEP [id number] 13:28:00Reason for exam:->AMSShould this be performed at the bedside?->YesDATE OF EE02-04-2017 DATE OF REPORT: 02-04-2017 ACC: [id number] EE Start time: 11:17 Stop time: 11:38 ICD-10: R56.9 CPT Code: 13582 HISTORY: Encephalopathy, post rectal cancer surgery. MEDICATIONS THAT COULD AFFECT EEG: None TECHNICAL SUMMARY: This is a digital EEG recorded with 32 inputchannels on a [employer] system and then reviewed with bipolar and [...] Brandon MD Neurophysiology Fellow PGY5 Shad Jovel [facility] Neurophysiology/Epilepsy Attending Electronically signedby: SHAD JOVEL MD on 02/04/2017 01:28 PMPOCT-GLUCOSE [id number] 13:27:00 Test Item Value Reference Range Comments POC-GLUCOSE METER (BEAKER) 136 mg/dL 70-110 TESTED AT [address] (test sytk=5683) [facility] [address] POCT-GLUCOSE [id number] 12:48:00 Test Item Value Reference Range Comments POC-GLUCOSE METER (BEAKER) 88 mg/dL 70-110 TESTED AT [address] (test vudw=7207) [facility] [address] POCT-GLUCOSE [id number] 12:46:00 Test Item Value Reference Range Comments POC-GLUCOSE METER (BEAKER) 94 mg/dL 70-110 TESTED AT [address] (test qaas=1921) [facility] [address] POCT-GLUCOSE [id number] 11:07:00 Test Item Value Reference Range Comments POC-GLUCOSE METER (BEAKER) 140 mg/dL 70-110 TESTED AT [address] (test xvky=7830) [place] [address] POCT-GLUCOSE [id number] 10:24:00 Test Item Value Reference Range Comments POC-GLUCOSE METER (BEAKER) 154 mg/dL 70-110 TESTED AT [address] (test waie=8706) [facility] [address] [id number] 09:22:00 Test Item Value Reference Range Comments PARTIAL THROMBOPLASTIN TIME (BEAKER) (test 71.1 seconds 22.5-36.0 lsro=903) CBC W/PLT COUNT & AUTO [id number] 09:08:00 Test Item Value Reference Range Comments WHITE BLOOD CELL COUNT (AKER) (test pipq=268) 19.9 K/ L 3.5-10.5 RED BLOOD CELL COUNT (BEAKER) (test sfsk=146) 3.56 M/ L 4.63-6.08 HEMOGLOBIN (BEAKER) (test ossm=243) 10.4 GM/DL 13.7-17.5 HEMATOCRIT (BEAKER) (test qxwz=391) 34.5 % 40.1-51.0 MEAN CORPUSCULAR VOLUME (BEAKER) (test ebcs=332) 96.9 fL 79.0-92.2 MEAN CORPUSCULAR HEMOGLOBIN (BEAKER) (test 29.2 pg 25.7-32.2 vctg=917) MEAN CORPUSCULAR HEMOGLOBIN CONC (BEAKER) (test 30.1 GM/DL 32.3-36.5 wiht=318) RED CELL DISTRIBUTION WIDTH (BEAKER) (test 15.1 % 11.6-14.4 kcvo=277) PLATELET COUNT (BEAKER) (test lpvf=912) 499 K/CU MM 150-450 MEAN PLATELET VOLUME (BEAKER) (test nmai=819) 10.6 fL 9.4-12.4 NUCLEATED RED BLOOD CELLS (BEAKER) (test 0 /100 WBC 0-0 avqy=100) NEUTROPHILS RELATIVE PERCENT (BEAKER) (test 90 % aptk=330) LYMPHOCYTES RELATIVE PERCENT (BEAKER) (test 4 % odie=991) MONOCYTES RELATIVE PERCENT (BEAKER) (test 4 % fzii=030) EOSINOPHILS RELATIVE PERCENT (BEAKER) (test 1 % zfzr=170) BASOPHILS RELATIVE PERCENT (BEAKER) (test 0 % vjgm=398) NEUTROPHILS ABSOLUTE COUNT (BEAKER) (test 17.95 K/ L 1.78-5.38 qysl=054) LYMPHOCYTES ABSOLUTE COUNT (BEAKER) (test 0.80 K/ L 1.32-3.57 bfiz=986) MONOCYTES ABSOLUTE COUNT (BEAKER) (test 0.78 K/ L 0.30-0.82 paku=578) EOSINOPHILS ABSOLUTE COUNT (BEAKER) (test 0.13 K/ L 0.04-0.54 pbbr=965) BASOPHILS ABSOLUTE COUNT (BEAKER) (test 0.03 K/ L 0.01-0.08 qirq=425) IMMATURE GRANULOCYTES-RELATIVE PERCENT (BEAKER) 1 % 0-1 (test qyjd=3823) (MANUAL DIFFERENTIAL)2017-02-04 09:08:00 Test Item Value Reference Range Comments TOTAL COUNTED (BEAKER) (test rckd=0648) WBC MORPHOLOGY (BEAKER) (test vfyg=166) Normal PLT MORPHOLOGY (BEAKER) (test xqrr=324) Normal RBC MORPHOLOGY (BEAKER) (test wdnh=573) Normal POCT-GLUCOSE [id number] 09:02:00 Test Item Value Reference Range Comments POC-GLUCOSE METER (BEAKER) 282 mg/dL 70-110 TESTED AT [address] (test lthg=7476) [place] [address] CLOSTRIDIUM DIFFICILE TOXIN [id number] 08:47:00 Test Item Value Reference Range Comments CLOSTRIDIUM DIFFICILE TOXIN, PCR (AKER) (test Not Detected Not Detected mpyp=0893) This qualitative real-time polymerase chain reaction assay [...] of a positive result is not recommended.POCT-GLUCOSE [id number] 08:00:00 Test Item Value Reference Range Comments POC-GLUCOSE METER (BEAKER) 163 mg/dL 70-110 TESTED AT [address] (test akqo=4406) [place] [address] [id number] 07:59:00 Test Item Value Reference Range Comments PARTIAL THROMBOPLASTIN TIME (BEAKER) (test 101.8 seconds 22.5-36.0 xlsu=764) BLOOD [id number] 07:49:00 Test Item Value Reference Range Comments CULTURE (BEAKER) (test rexr=4732) Ampicillin (test code=26) Gentamicin High Level Synergy (test ogsq=180) Linezolid (test code=40) Streptomycin High Level Synergy (test gcwb=950) Vancomycin (test code=13) Daptomycin (test Susceptible 0-4 , No code=59) Interpretations Established <0 or >4 Penicillin G (test Susceptible 0-8 , code=3) Resistant <0 or >8 CULTURE (BEAKER) (test From Aerobic Bottle juzc=4600) Only Enterococcus faecalis GRAM STAIN RESULT From aerobic (BEAKER) (test bottle only: gram dnhb=6351) positive cocci in pairs VANCOMYCIN-SUSCEPTIBLE ENTEROCOCCUS (VSE) DETECTEDFirst line therapy: vancomycin or ampicillin (ampicillin only if confirmed susceptible)(Goldie/vanB not detected)Other organisms and resistance markers not contained in this PCR panel cannot be excluded and follow-up of traditional culture results is required. This sample was tested at the [facility] Clinical Microbiology Laboratory using the [employer] Blood Culture ID Panel. This test is FDA cleared for in vitro diagnostic use and has been verified and approved by the [facility] Clinical Microbiology laboratory for clinical use. Reference Range: Not [id number] 06:57:00 Test Item Value Reference Range Comments PHOSPHORUS (BEAKER) (test xily=004) 2.3 mg/dL 2.3-4.7 [id number] 06:57:00 Test Item Value Reference Range Comments MAGNESIUM (BEAKER) (test hlqt=195) 2.5 mg/dL 1.6-2.6 BASIC METABOLIC [id number] 06:57:00 Test Item Value Reference Range Comments SODIUM (BEAKER) (test 153 meq/L 136-145 luwa=061) POTASSIUM (BEAKER) (test 3.8 meq/L 3.5-5.1 yunt=252) CHLORIDE (BEAKER) (test 117 meq/L 98-107 clzj=404) CO2 (BEAKER) (test 28 meq/L 22-29 kfqe=131) BLOOD UREA NITROGEN 39 mg/dL 7-21 (BEAKER) (test qtkp=586) CREATININE (BEAKER) (test 1.12 mg/dL 0.57-1.25 fuia=009) GLUCOSE RANDOM (BEAKER) 142 mg/dL 70-105 (test goqr=336) CALCIUM (BEAKER) (test 7.6 mg/dL 8.4-10.2 qrnn=568) EGFR (BEAKER) (test 67 mL/min/1.73 sq m ESTIMATED GFR IS NOT wfnm=0271) ACCURATE CREATININE CLEARANCE IN PREDICTING GLOMERULAR FILTRATION RATE. ESTIMATED GFR IS NOT APPLICABLE FOR DIALYSIS PATIENTS. POCT-GLUCOSE [id number] 06:37:00 Test Item Value Reference Range Comments POC-GLUCOSE METER (BEAKER) 132 mg/dL 70-110 TESTED AT [address] (test aemf=1105) [place] [address] [id number] 06:30:00 Test Item Value Reference Range Comments AMMONIA (BEAKER) (test xyyj=710) 40 mol/L 18-72 CALCIUM, [id number] 06:23:00 Test Item Value Reference Range Comments CALCIUM IONIZED (BEAKER) (test vemh=650) 1.08 mmol/L 1.12-1.27 PH, BLOOD (BEAKER) (test iqwr=3508) 7.53 PROTHROMBIN [id number] 06:01:00 Test Item Value Reference Range Comments PROTIME (BEAKER) (test odpf=958) 16.4 seconds 11.7-14.7 INR (BEAKER) (test ihpj=963) 1.3 <=5.9 RECOMMENDED COUMADIN/WARFARIN INR THERAPY RANGESSTANDARD DOSE: 2.0 - 3.0 Includes: PROPHYLAXIS forvenous thrombosis, systemic embolization; TREATMENT for venous thrombosis and/or pulmonary embolus.HIGH RISK: Target INR is 2.5-3.5 for patients with mechanical heart valves.POCT-GLUCOSE [id number] 05:36:00 Test Item Value Reference Range Comments POC-GLUCOSE METER (BEAKER) 119 mg/dL 70-110 TESTED AT [address] (test fqoj=6575) [place] [address] POCT-GLUCOSE [id number] 04:27:00 Test Item Value Reference Range Comments POC-GLUCOSE METER (BEAKER) 126 mg/dL 70-110 TESTED AT [address] (test uglq=3251) [place] [address] RAD, CHEST, 1 VIEW, NON [id number] 03:42:00Reason for exam:-> IntubatedShould this be performed [...] contours.Additional findings: None. Signed: JR Patrick, Fernando MARINeport Verified Date/Time: 02/04/2017 03:42:53 Reading Location: [facility] B1 C013Y CT Body Reading Room Electronically signedby: FERNANDO NGUYEN on 02/04/2017 03 :42 AMPOCT-GLUCOSE [id number] 03:10:00 Test Item Value Reference Range Comments POC-GLUCOSE METER (BEAKER) 174 mg/dL 70-110 TESTED AT [address] (test uaab=5094) [place] [address] BASIC METABOLIC [id number] 01:39:00 Test Item Value Reference Range Comments SODIUM (BEAKER) (test 155 meq/L 136-145 hpgs=737) POTASSIUM (BEAKER) (test 3.8 meq/L 3.5-5.1 yffb=694) CHLORIDE (BEAKER) (test 119 meq/L 98-107 bvjb=328) CO2 (BEAKER) (test 29 meq/L 22-29 obwp=349) BLOOD UREA NITROGEN 39 mg/dL 7-21 (BEAKER) (test ypen=750) CREATININE (BEAKER) (test 1.14 mg/dL 0.57-1.25 agsw=441) GLUCOSE RANDOM (BEAKER) 187 mg/dL 70-105 (test bzvg=740) CALCIUM (BEAKER) (test 7.5 mg/dL 8.4-10.2 mizr=574) EGFR (BEAKER) (test 66 mL/min/1.73 sq m ESTIMATED GFR IS NOT xsfy=6728) ACCURATE CREATININE CLEARANCE IN PREDICTING GLOMERULAR FILTRATION RATE. ESTIMATED GFR IS NOT APPLICABLE FOR DIALYSIS PATIENTS. POCT-GLUCOSE [id number] 01:17:00 Test Item Value Reference Range Comments POC-GLUCOSE METER (BEAKER) 152 mg/dL 70-110 TESTED AT [address] (test xgdx=8036) [place] [address] POCT-GLUCOSE [id number] 00:25:00 Test Item Value Reference Range Comments POC-GLUCOSE METER (BEAKER) 159 mg/dL 70-110 TESTED AT [address] (test ydeb=6060) [place] [id number] POCT-GLUCOSE [id number] 23:13:00 Test Item Value Reference Range Comments POC-GLUCOSE METER (BEAKER) 181 mg/dL 70-110 TESTED AT [address] (test kvfs=7041) [place] [id number] POCT-GLUCOSE [id number] 20:44:00 Test Item Value Reference Range Comments POC-GLUCOSE METER (BEAKER) 189 mg/dL 70-110 TESTED AT [address] (test bqpd=4830) [place] [id number] POCT-GLUCOSE [id number] 20:44:00 Test Item Value Reference Range Comments POC-GLUCOSE METER (BEAKER) 139 mg/dL 70-110 TESTED AT [address] (test zldk=7236) [place] [address] RAD, ABDOMEN/KUB, 1 VIEW [id number] 20:12:00Reason for exam:->dobhoff placement checkFINAL REPORT EXAMINATION: [...] the CT examination 01/31/2017. Signed: Zach Dowell MDRlarisaort Verified Date/Time: 02/03/2017 20:12:15 Reading Location : [facility] Radiology Reading Room POCT-GLUCOSE [id number] 18:50:00 Test Item Value Reference Range Comments POC-GLUCOSE METER (BEAKER) 102 mg/dL 70-110 TESTED AT [address] (test nxjl=4925) [place] [id number] POCT-GLUCOSE [id number] 17:58:00 Test Item Value Reference Range Comments POC-GLUCOSE METER (BEAKER) 90 mg/dL 70-110 TESTED AT [address] (test utep=0923) [place] [id number] RAD, ABDOMEN/KUB, 1 VIEW [id number] 17:25:00Reason for exam:->dobhoff tube placementFINAL REPORT EXAMINATION: [...] Visualized bowel gas pattern isnonspecific. Signed: Zach Dowell Verified Date/Time: 02/03/2017 17:25:39 Reading Location: [facility] Radiology Reading Room 05 :25 PMPOCT-GLUCOSE [id number] 17:16:00 Test Item Value Reference Range Comments POC-GLUCOSE METER (BEAKER) 116 mg/dL 70-110 TESTED AT [address] (test yasq=8858) [place] [address] [id number] 16:39:00 Test Item Value Reference Range Comments PARTIAL THROMBOPLASTIN TIME (BEAKER) (test 82.0 seconds 22.5-36.0 rpkj=807) POCT-GLUCOSE [id number] 16:04:00 Test Item Value Reference Range Comments POC-GLUCOSE METER (BEAKER) 126 mg/dL 70-110 TESTED AT [address] (test ebjg=5258) [place] [address] [id number] 15:26:00 Test Item Value Reference Range Comments AMMONIA (BEAKER) (test bkct=463) 31 mol/L 18-72 POCT-GLUCOSE [id number] 15:12:00 Test Item Value Reference Range Comments POC-GLUCOSE METER (BEAKER) 142 mg/dL 70-110 TESTED AT [address] (test nrqz=8993) [place] [id number] POCT-GLUCOSE [id number] 15:12:00 Test Item Value Reference Range Comments POC-GLUCOSE METER (BEAKER) 151 mg/dL 70-110 TESTED AT [facility] [address] (test zmfs=1306) [facility] [address] BASIC METABOLIC [id number] 15:05:00 Test Item Value Reference Range Comments SODIUM (BEAKER) (test 157 meq/L 136-145 blfx=901) POTASSIUM (BEAKER) (test 3.7 meq/L 3.5-5.1 xrth=557) CHLORIDE (BEAKER) (test 119 meq/L 98-107 ekcs=589) CO2 (BEAKER) (test 30 meq/L 22-29 bvzj=353) BLOOD UREA NITROGEN 39 mg/dL 7-21 (BEAKER) (test pqpj=107) CREATININE (BEAKER) (test 1.11 mg/dL 0.57-1.25 hmcl=777) GLUCOSE RANDOM (BEAKER) 156 mg/dL 70-105 (test qvyt=700) CALCIUM (BEAKER) (test 7.5 mg/dL 8.4-10.2 krfx=198) EGFR (BEAKER) (test 68 mL/min/1.73 sq m ESTIMATED GFR IS NOT mdad=3391) ACCURATE CREATININE CLEARANCE IN PREDICTING GLOMERULAR FILTRATION RATE. ESTIMATED GFR IS NOT APPLICABLE FOR DIALYSIS PATIENTS. MR, BRAIN, WITHOUT [id number] 13:09:00Reason for exam:-> encephalopathyWhat is the patient's [...] Greenberg Verified Date/Time: 11/2016 13:09:03 Reading Location: [address] Neuro Reading Room POCT- GLUCOSE [id number] 12:32:00 Test Item Value Reference Range Comments POC-GLUCOSE METER (BEAKER) 118 mg/dL 70-110 TESTED AT [address] (test orbg=5078) [place] [id number] 11:10:00 Test Item Value Reference Range Comments PARTIAL THROMBOPLASTIN TIME (BEAKER) (test 83.0 seconds 22.5-36.0 ughz=754) POCT-GLUCOSE [id number] 10:28:00 Test Item Value Reference Range Comments POC-GLUCOSE METER (BEAKER) 109 mg/dL 70-110 TESTED AT [address] (test fsmj=5666) [place] [id number] POCT-GLUCOSE [id number] 09:12:00 Test Item Value Reference Range Comments POC-GLUCOSE METER (BEAKER) 134 mg/dL 70-110 TESTED AT [address] (test fuax=6427) [place] [id number] POCT-GLUCOSE [id number] 08:14:00 Test Item Value Reference Range Comments POC-GLUCOSE METER (BEAKER) 131 mg/dL 70-110 TESTED AT [address] (test zbig=5928) [place] [id number] BASIC METABOLIC [id number] 07:43:00 Test Item Value Reference Range Comments SODIUM (BEAKER) (test 157 meq/L 136-145 laio=633) POTASSIUM (BEAKER) (test 3.7 meq/L 3.5-5.1 jtcx=179) CHLORIDE (BEAKER) (test 119 meq/L 98-107 pkaz=410) CO2 (BEAKER) (test 31 meq/L 22-29 fuye=638) BLOOD UREA NITROGEN 42 mg/dL 7-21 (BEAKER) (test gbqp=315) CREATININE (BEAKER) (test 1.21 mg/dL 0.57-1.25 csqb=003) GLUCOSE RANDOM (BEAKER) 172 mg/dL 70-105 (test jqfn=958) CALCIUM (BEAKER) (test 7.7 mg/dL 8.4-10.2 odck=270) EGFR (BEAKER) (test 62 mL/min/1.73 sq m ESTIMATED GFR IS NOT kemz=3195) ACCURATE CREATININE CLEARANCE IN PREDICTING GLOMERULAR FILTRATION RATE. ESTIMATED GFR IS NOT APPLICABLE FOR DIALYSIS PATIENTS. POCT-GLUCOSE [id number] 07:11:00 Test Item Value Reference Range Comments POC-GLUCOSE METER (BEAKER) 149 mg/dL 70-110 TESTED AT [address] (test hcjt=9574) [place] [address] POCT-GLUCOSE [id number] 06:21:00 Test Item Value Reference Range Comments POC-GLUCOSE METER (BEAKER) 151 mg/dL 70-110 TESTED AT [address] (test efcc=0027) [place] [address] POCT-GLUCOSE [id number] 05:15:00 Test Item Value Reference Range Comments POC-GLUCOSE METER (BEAKER) 206 mg/dL 70-110 TESTED AT [address] (test tpgh=1485) [place] [address] RAD, CHEST, 1 VIEW, NON [id number] 04:38:00Reason for exam:-> IntubatedShould this be performed [...] overload/heart failure. Signed: Zach Dowelleport Verified Date/Time: 12/10 /2017 04:38:28 Reading Location: [facility] Radiology Reading Room [id number] 04:17:00 Test Item Value Reference Range Comments PARTIAL THROMBOPLASTIN TIME (BEAKER) (test 86.9 seconds 22.5-36.0 osln=904) PROTHROMBIN [id number] 04:15:00 Test Item Value Reference Range Comments PROTIME (BEAKER) (test famj=675) 18.2 seconds 11.7-14.7 INR (BEAKER) (test coid=986) 1.5 <=5.9 RECOMMENDED COUMADIN/WARFARIN INR THERAPY RANGESSTANDARD DOSE: 2.0 - 3.0 Includes: PROPHYLAXIS forvenous thrombosis, systemic embolization; TREATMENT for venous thrombosis and/or pulmonary embolus.HIGH RISK: Target INR is 2.5-3.5 for patients with mechanical heart valves.[id number] 04:04:00 Test Item Value Reference Range Comments PHOSPHORUS (BEAKER) (test enuf=456) 2.3 mg/dL 2.3-4.7 [id number] 04:04:00 Test Item Value Reference Range Comments MAGNESIUM (BEAKER) (test aapf=676) 2.6 mg/dL 1.6-2.6 COMPREHENSIVE METABOLIC [id number] 04:04:00 Test Item Value Reference Range Comments TOTAL PROTEIN (BEAKER) 5.5 gm/dL 6.0-8.3 (test nnhd=749) ALBUMIN (BEAKER) (test 2.3 g/dL 3.5-5.0 qkvx=1091) ALKALINE PHOSPHATASE 109 U/L 40-150 (BEAKER) (test yngx=197) BILIRUBIN TOTAL (BEAKER) 0.3 mg/dL 0.2-1.2 (test xrnn=833) SODIUM (BEAKER) (test 159 meq/L 136-145 sorg=988) POTASSIUM (BEAKER) (test 3.7 meq/L 3.5-5.1 hsoo=948) CHLORIDE (BEAKER) (test 120 meq/L 98-107 zffy=291) CO2 (BEAKER) (test 30 meq/L 22-29 cjlr=431) BLOOD UREA NITROGEN 43 mg/dL 7-21 (BEAKER) (test vuao=767) CREATININE (BEAKER) (test 1.37 mg/dL 0.57-1.25 ossc=139) GLUCOSE RANDOM (BEAKER) 271 mg/dL 70-105 (test furu=590) CALCIUM (BEAKER) (test 7.9 mg/dL 8.4-10.2 kicp=901) AST (SGOT) (BEAKER) (test 22 U/L 5-34 zzaz=660) ALT (SGPT) (BEAKER) (test 12 U/L 6-55 kuvc=099) EGFR (BEAKER) (test 53 mL/min/1.73 sq m ESTIMATED GFR IS NOT hetj=8939) ACCURATE CREATININE CLEARANCE IN PREDICTING GLOMERULAR FILTRATION RATE. ESTIMATED GFR IS NOT APPLICABLE FOR DIALYSIS PATIENTS. POCT-GLUCOSE [id number] 04:03:00 Test Item Value Reference Range Comments POC-GLUCOSE METER (BEAKER) 221 mg/dL 70-110 TESTED AT [facility] [address] [facility] (test yhav=5177) [facility] [address] CBC W/PLT COUNT & AUTO [id number] 04:02:00 Test Item Value Reference Range Comments WHITE BLOOD CELL COUNT (BEAKER) (test wvaf=876) 24.8 K/ L 3.5-10.5 RED BLOOD CELL COUNT (BEAKER) (test zjre=291) 3.85 M/ L 4.63-6.08 HEMOGLOBIN (BEAKER) (test isnd=892) 11.2 GM/DL 13.7-17.5 HEMATOCRIT (BEAKER) (test uvwv=152) 37.4 % 40.1-51.0 MEAN CORPUSCULAR VOLUME (BEAKER) (test toyc=006) 97.1 fL 79.0-92.2 MEAN CORPUSCULAR HEMOGLOBIN (BEAKER) (test 29.1 pg 25.7-32.2 cuja=082) MEAN CORPUSCULAR HEMOGLOBIN CONC (BEAKER) (test 29.9 GM/DL 32.3-36.5 sjes=890) RED CELL DISTRIBUTION WIDTH (BEAKER) (test 15.2 % 11.6-14.4 lokv=788) PLATELET COUNT (BEAKER) (test gyfe=972) 521 K/CU MM 150-450 MEAN PLATELET VOLUME (BEAKER) (test daph=292) 10.7 fL 9.4-12.4 NUCLEATED RED BLOOD CELLS (BEAKER) (test 0 /100 WBC 0-0 gzqf=391) NEUTROPHILS RELATIVE PERCENT (BEAKER) (test 91 % cgtf=698) LYMPHOCYTES RELATIVE PERCENT (BEAKER) (test 4 % pblx=068) MONOCYTES RELATIVE PERCENT (BEAKER) (test 3 % tuub=942) EOSINOPHILS RELATIVE PERCENT (BEAKER) (test 0 % duyf=482) BASOPHILS RELATIVE PERCENT (BEAKER) (test 0 % kvxz=591) NEUTROPHILS ABSOLUTE COUNT (BEAKER) (test 22.63 K/ L 1.78-5.38 tewa=154) LYMPHOCYTES ABSOLUTE COUNT (BEAKER) (test 0.95 K/ L 1.32-3.57 clyw=425) MONOCYTES ABSOLUTE COUNT (BEAKER) (test 0.75 K/ L 0.30-0.82 kvqv=674) EOSINOPHILS ABSOLUTE COUNT (BEAKER) (test 0.03 K/ L 0.04-0.54 rmsq=029) BASOPHILS ABSOLUTE COUNT (BEAKER) (test 0.04 K/ L 0.01-0.08 agwt=616) IMMATURE GRANULOCYTES-RELATIVE PERCENT (BEAKER) 2 % 0-1 (test xeyq=8946) CALCIUM, [id number] 04:00:00 Test Item Value Reference Range Comments CALCIUM IONIZED (BEAKER) (test bfxd=502) 1.09 mmol/L 1.12-1.27 PH, BLOOD (BEAKER) (test wote=7784) 7.50 POCT-GLUCOSE [id number] 03:18:00 Test Item Value Reference Range Comments POC-GLUCOSE METER (BEAKER) 251 mg/dL 70-110 TESTED AT [address] (test siev=6668) [facility] [address] POCT-GLUCOSE [id number] 03:18:00 Test Item Value Reference Range Comments POC-GLUCOSE METER (BEAKER) 232 mg/dL 70-110 TESTED AT [address] (test lbwn=8743) [facility] [address] POCT-GLUCOSE [id number] 01:18:00 Test Item Value Reference Range Comments POC-GLUCOSE METER (BEAKER) 198 mg/dL 70-110 TESTED AT [address] (test rlxp=9065) [facility] [address] POCT-GLUCOSE [id number] 00:16:00 Test Item Value Reference Range Comments POC-GLUCOSE METER (BEAKER) 185 mg/dL 70-110 TESTED AT [address] (test hrqv=6607) [place] [id number] POCT-GLUCOSE [id number] 23:54:00 Test Item Value Reference Range Comments POC-GLUCOSE METER (BEAKER) 151 mg/dL 70-110 TESTED AT [address] (test ksfv=6361) [place] [address] POCT-GLUCOSE [id number] 22:30:00 Test Item Value Reference Range Comments POC-GLUCOSE METER (BEAKER) 104 mg/dL 70-110 TESTED AT [address] (test kmma=5010) [place] [address] POCT-GLUCOSE [id number] 21:37:00 Test Item Value Reference Range Comments POC-GLUCOSE METER (BEAKER) 86 mg/dL 70-110 TESTED AT [address] (test upsx=3072) [place] [address] [id number] 20:40:00 Test Item Value Reference Range Comments PARTIAL THROMBOPLASTIN TIME (BEAKER) (test 64.8 seconds 22.5-36.0 mwtq=160) POCT-GLUCOSE [id number] 20:09:00 Test Item Value Reference Range Comments POC-GLUCOSE METER (BEAKER) 119 mg/dL 70-110 TESTED AT [address] (test epsn=9725) [place] [address] POCT-GLUCOSE [id number] 18:40:00 Test Item Value Reference Range Comments POC-GLUCOSE METER (BEAKER) 193 mg/dL 70-110 TESTED AT [address] (test pgqi=7989) [place] [address] POCT-GLUCOSE [id number] 17:36:00 Test Item Value Reference Range Comments POC-GLUCOSE METER (BEAKER) 180 mg/dL 70-110 TESTED AT [address] (test odxj=8775) [place] [address] POCT-GLUCOSE [id number] 16:25:00 Test Item Value Reference Range Comments POC-GLUCOSE METER (BEAKER) 217 mg/dL 70-110 TESTED AT [address] (test qjsd=1251) [place] [address] CT, LIMITED/LOCALIZED [id number] 15:47:00Reason for exam:->Pelvic fluid collectionFINAL REPORT Limited [...] MDReport Verified Date/Time: 02/02/2017 15:47:41 Reading Location: [facility] B1 C013Y CT Body Reading Room POCT-GLUCOSE [id number] 15:24:00 Test Item Value Reference Range Comments POC-GLUCOSE METER (BEAKER) 247 mg/dL 70-110 TESTED AT [address] (test mzrs=4820) [place] [address] POCT-GLUCOSE [id number] 14:39:00 Test Item Value Reference Range Comments POC-GLUCOSE METER (BEAKER) 246 mg/dL 70-110 TESTED AT [address] (test wfvp=6799) [place] [address] POCT-GLUCOSE [id number] 14:39:00 Test Item Value Reference Range Comments POC-GLUCOSE METER (BEAKER) 230 mg/dL 70-110 TESTED AT [address] (test ugwt=8373) [place] [address] POCT-GLUCOSE [id number] 14:39:00 Test Item Value Reference Range Comments POC-GLUCOSE METER (BEAKER) 190 mg/dL 70-110 TESTED AT [address] (test mdac=7528) [place] [address] [id number] 14:02:00 Test Item Value Reference Range Comments PARTIAL THROMBOPLASTIN TIME (BEAKER) (test 44.2 seconds 22.5-36.0 ytrb=515) URINALYSIS W/ REFLEX URINE [id number] 12:50:00 Test Item Value Reference Range Comments COLOR (BEAKER) (test hquk=832) Yellow CLARITY (BEAKER) (test wzzh=502) Hazy SPECIFIC GRAVITY UA (BEAKER) (test bnsw=561) 1.022 1.001-1.035 PH UA (BEAKER) (test jwru=675) 5.0 5.0-8.0 PROTEIN UA (BEAKER) (test hupq=501) 20 mg/dL Negative GLUCOSE UA (BEAKER) (test czlg=568) Negative Negative KETONES UA (BEAKER) (test pbkm=833) Trace Negative BILIRUBIN UA (BEAKER) (test kgsd=121) Negative Negative BLOOD UA (BEAKER) (test pxiv=873) Trace Negative NITRITE UA (BEAKER) (test qqfs=558) Negative Negative LEUKOCYTE ESTERASE UA (BEAKER) (test muub=488) Small Negative UROBILINOGEN UA (BEAKER) (test yqcf=071) 0.2 mg/dL 0.2-1.0 RBC UA (BEAKER) (test ifzi=798) 9 /HPF WBC UA (BEAKER) (test wodl=879) 35 /HPF MUCUS (BEAKER) (test qwtr=9294) Few SQUAMOUS EPITHELIAL (BEAKER) (test vmll=388) < /HPF AMORPHOUS CRYSTALS (BEAKER) (test onlj=2358) Moderate SOURCE(BEAKER) (test jdtv=4556) POCT-GLUCOSE [id number] 10:46:00 Test Item Value Reference Range Comments POC-GLUCOSE METER (BEAKER) 114 mg/dL 70-110 TESTED AT [address] (test xarj=8150) [facility] [address] POCT-GLUCOSE [id number] 10:46:00 Test Item Value Reference Range Comments POC-GLUCOSE METER (BEAKER) 83 mg/dL 70-110 TESTED AT [address] (test lcar=4702) [facility] [address] POCT-GLUCOSE [id number] 09:28:00 Test Item Value Reference Range Comments POC-GLUCOSE METER (BEAKER) 100 mg/dL 70-110 TESTED AT [address] (test hvqc=4100) [facility] [address] POCT-GLUCOSE [id number] 08:23:00 Test Item Value Reference Range Comments POC-GLUCOSE METER (BEAKER) 107 mg/dL 70-110 TESTED AT [address] (test rmcm=8753) [facility] [address] [id number] 07:15:00 Test Item Value Reference Range Comments PARTIAL THROMBOPLASTIN TIME (BEAKER) (test 89.8 seconds 22.5-36.0 qraj=342) POCT-GLUCOSE [id number] 07:12:00 Test Item Value Reference Range Comments POC-GLUCOSE METER (BEAKER) 132 mg/dL 70-110 TESTED AT [address] (test osus=6377) [place] [address] POCT-GLUCOSE [id number] 06:13:00 Test Item Value Reference Range Comments POC-GLUCOSE METER (BEAKER) 164 mg/dL 70-110 TESTED AT [address] (test pigs=5961) [place] [address] POCT-GLUCOSE [id number] 05:17:00 Test Item Value Reference Range Comments POC-GLUCOSE METER (BEAKER) 196 mg/dL 70-110 TESTED AT [address] (test kqdh=3980) [facility] [address] CALCIUM, [id number] 04:59:00 Test Item Value Reference Range Comments CALCIUM IONIZED (BEAKER) (test dijc=809) 1.06 mmol/L 1.12-1.27 PH, BLOOD (BEAKER) (test atkc=3987) 7.47 RAD, CHEST, 1 VIEW, NON [id number] 04:44:00Reason for exam:-> IntubatedShould this be performed [...] Murray Verified Date/Time: 02/02/2017 04:44:10 Reading Location: [facility] C013Y CT Body Reading Room BASIC METABOLIC [id number] 04:29:00 Test Item Value Reference Range Comments SODIUM (BEAKER) (test 156 meq/L 136-145 jdil=626) POTASSIUM (BEAKER) (test 3.4 meq/L 3.5-5.1 urol=433) CHLORIDE (BEAKER) (test 117 meq/L 98-107 ftsh=910) CO2 (BEAKER) (test 29 meq/L 22-29 czjw=786) BLOOD UREA NITROGEN 45 mg/dL 7-21 (BEAKER) (test vydp=131) CREATININE (BEAKER) (test 1.52 mg/dL 0.57-1.25 eqku=915) GLUCOSE RANDOM (BEAKER) 314 mg/dL 70-105 (test aljs=897) CALCIUM (BEAKER) (test 7.8 mg/dL 8.4-10.2 viat=404) EGFR (BEAKER) (test 47 mL/min/1.73 sq m ESTIMATED GFR IS NOT hhkw=9645) ACCURATE CREATININE CLEARANCE IN PREDICTING GLOMERULAR FILTRATION RATE. ESTIMATED GFR IS NOT APPLICABLE FOR DIALYSIS PATIENTS. [id number] 03:57:00 Test Item Value Reference Range Comments PHOSPHORUS (BEAKER) (test devl=806) 2.3 mg/dL 2.3-4.7 [id number] 03:57:00 Test Item Value Reference Range Comments MAGNESIUM (BEAKER) (test wmce=484) 2.5 mg/dL 1.6-2.6 PROTHROMBIN TIME/[id number] 03:41:00 Test Item Value Reference Range Comments PROTIME (BEAKER) (test inxt=494) 19.7 seconds 11.7-14.7 INR (BEAKER) (test beyd=085) 1.7 <=5.9 RECOMMENDED COUMADIN/WARFARIN INR THERAPY RANGESSTANDARD DOSE: 2.0 - 3.0 Includes: PROPHYLAXIS forvenous thrombosis, systemic embolization; TREATMENT for venous thrombosis and/or pulmonary embolus.HIGH RISK: Target INR is 2.5-3.5 for patients with mechanical heart valves.CBC W/PLT COUNT & AUTO [id number] 03:40:00 Test Item Value Reference Range Comments WHITE BLOOD CELL COUNT (BEAKER) (test svwp=349) 27.6 K/ L 3.5-10.5 RED BLOOD CELL COUNT (BEAKER) (test uflj=953) 4.14 M/ L 4.63-6.08 HEMOGLOBIN (BEAKER) (test yhfy=217) 12.0 GM/DL 13.7-17.5 HEMATOCRIT (BEAKER) (test dgkf=148) 39.9 % 40.1-51.0 MEAN CORPUSCULAR VOLUME (BEAKER) (test mfpj=808) 96.4 fL 79.0-92.2 MEAN CORPUSCULAR HEMOGLOBIN (BEAKER) (test 29.0 pg 25.7-32.2 bduk=417) MEAN CORPUSCULAR HEMOGLOBIN CONC (BEAKER) (test 30.1 GM/DL 32.3-36.5 izba=279) RED CELL DISTRIBUTION WIDTH (BEAKER) (test 15.3 % 11.6-14.4 idtl=725) PLATELET COUNT (BEAKER) (test xpqc=545) 511 K/CU MM 150-450 MEAN PLATELET VOLUME (BEAKER) (test lhtn=726) 10.5 fL 9.4-12.4 NUCLEATED RED BLOOD CELLS (BEAKER) (test 0 /100 WBC 0-0 yktj=511) NEUTROPHILS RELATIVE PERCENT (BEAKER) (test 89 % ogwk=477) LYMPHOCYTES RELATIVE PERCENT (BEAKER) (test 4 % igpp=007) MONOCYTES RELATIVE PERCENT (BEAKER) (test 3 % isiy=729) EOSINOPHILS RELATIVE PERCENT (BEAKER) (test 0 % vdtf=241) BASOPHILS RELATIVE PERCENT (BEAKER) (test 0 % flkp=091) NEUTROPHILS ABSOLUTE COUNT (BEAKER) (test 24.63 K/ L 1.78-5.38 ltfg=085) LYMPHOCYTES ABSOLUTE COUNT (BEAKER) (test 1.13 K/ L 1.32-3.57 ejoc=097) MONOCYTES ABSOLUTE COUNT (BEAKER) (test 0.95 K/ L 0.30-0.82 mxca=997) EOSINOPHILS ABSOLUTE COUNT (BEAKER) (test 0.01 K/ L 0.04-0.54 tvni=226) BASOPHILS ABSOLUTE COUNT (BEAKER) (test 0.08 K/ L 0.01-0.08 sbsz=733) IMMATURE GRANULOCYTES-RELATIVE PERCENT (BEAKER) 3 % 0-1 (test lvmm=4847) POCT-GLUCOSE [id number] 03:15:00 Test Item Value Reference Range Comments POC-GLUCOSE METER (BEAKER) 276 mg/dL 70-110 TESTED AT [address] (test mqbx=2683) [place] [id number] POCT-GLUCOSE [id number] 02:16:00 Test Item Value Reference Range Comments POC-GLUCOSE METER (BEAKER) 294 mg/dL 70-110 TESTED AT [address] (test ikaj=3365) [place] [address] POCT-GLUCOSE [id number] 01:14:00 Test Item Value Reference Range Comments POC-GLUCOSE METER (BEAKER) 266 mg/dL 70-110 TESTED AT [address] (test lhlj=7831) [place] [address] [id number] 00:38:00 Test Item Value Reference Range Comments PARTIAL THROMBOPLASTIN TIME (BEAKER) (test 67.9 seconds 22.5-36.0 nryy=393) POCT-GLUCOSE [id number] 00:14:00 Test Item Value Reference Range Comments POC-GLUCOSE METER (BEAKER) 190 mg/dL 70-110 TESTED AT [address] (test xkir=0089) [place] [id number] POCT-GLUCOSE [id number] 20:46:00 Test Item Value Reference Range Comments POC-GLUCOSE METER (BEAKER) 81 mg/dL 70-110 TESTED AT [address] (test ajas=7282) [place] [address] POCT-GLUCOSE [id number] 20:13:00 Test Item Value Reference Range Comments POC-GLUCOSE METER (BEAKER) 73 mg/dL 70-110 TESTED AT [address] (test fzfk=2104) [place] [address] [id number] 19:33:00 Test Item Value Reference Range Comments PARTIAL THROMBOPLASTIN TIME (BEAKER) (test 35.9 seconds 22.5-36.0 hmqk=297) POCT-GLUCOSE [id number] 18:29:00 Test Item Value Reference Range Comments POC-GLUCOSE METER (BEAKER) 70 mg/dL 70-110 TESTED AT [address] (test ufok=5098) [place] [address] TROPONIN [id number] 14:50:00 Test Item Value Reference Range Comments TROPONIN I (BEAKER) (test ybde=850) 0.02 ng/mL 0.00-0.03 Troponin I (TnI) levels [...] acidosis, acute neurological disease, and persistent tachyarrhythmia.POCT-GLUCOSE [id number] 14:16:00 Test Item Value Reference Range Comments POC-GLUCOSE METER (BEAKER) 185 mg/dL 70-110 TESTED AT [address] (test zqel=4675) [place] [address] POCT-GLUCOSE [id number] 14:04:00 Test Item Value Reference Range Comments POC-GLUCOSE METER (BEAKER) 159 mg/dL 70-110 TESTED AT [address] (test bwer=3981) [place] [address] URINE [id number] 13:40:00 Test Item Value Reference Range Comments CULTURE (BEAKER) (test syvs=9608) Amikacin (test code=1) Ampicillin + Sulbactam (test code=6) Aztreonam (test code=32) Cefepime (test code=51) Cefoxitin (test code=68) Ceftazidime (test code=27) Ceftriaxone (test code=52) Ertapenem (test code=38) Gentamicin (test code=18) Levofloxacin (test code=22) Meropenem (test code=34) Nitrofurantoin (test code=23) Piperacillin + Tazobactam (test code=29) Tetracycline (test code=2) Tobramycin (test code=25) Trimethoprim + Sulfamethoxazole (test code=47) CULTURE (BEAKER) (test wsqg=6177) >100,000 col/mL Escherichia coliESBL Positive 80-89,000 col/mL skin floraRAD, CHEST, 1 VIEW, NON [id number] 13:29: 00Reason for exam:->reintubation Should this be [...] in the spine. No fracture. Signed: Galileo Orellanaeport Verified Date/Time: 02/01/2017 13:29:08 Reading Location: [facility] Radiology Reading Room SPUTUM CULTURE + GRAM [id number] 11:46:00 Test Item Value Reference Range Comments CULTURE (BEAKER) (test ihof=3880) No growth GRAM STAIN RESULT (BEAKER) (test 3+ White blood cells seen qvoq=4759) GRAM STAIN RESULT (BEAKER) (test 0-5 epithelial cells pacq=40346) GRAM STAIN RESULT (BEAKER) (test No organisms seen etqf=52575) CBC W/PLT COUNT & AUTO [id number] 10:58:00 Test Item Value Reference Range Comments WHITE BLOOD CELL COUNT (BEAKER) (test siqm=160) 22.8 K/ L 3.5-10.5 RED BLOOD CELL COUNT (BEAKER) (test kibb=051) 4.64 M/ L 4.63-6.08 HEMOGLOBIN (BEAKER) (test swho=042) 13.6 GM/DL 13.7-17.5 HEMATOCRIT (BEAKER) (test fnfe=181) 42.7 % 40.1-51.0 MEAN CORPUSCULAR VOLUME (BEAKER) (test kbhl=318) 92.0 fL 79.0-92.2 MEAN CORPUSCULAR HEMOGLOBIN (BEAKER) (test 29.3 pg 25.7-32.2 gtsy=131) MEAN CORPUSCULAR HEMOGLOBIN CONC (BEAKER) (test 31.9 GM/DL 32.3-36.5 nhnf=504) RED CELL DISTRIBUTION WIDTH (BEAKER) (test 15.2 % 11.6-14.4 uqhe=262) PLATELET COUNT (BEAKER) (test jbyq=798) 511 K/CU MM 150-450 MEAN PLATELET VOLUME (BEAKER) (test lnrm=695) 10.5 fL 9.4-12.4 NUCLEATED RED BLOOD CELLS (BEAKER) (test 0 /100 WBC 0-0 oarr=146) NEUTROPHILS RELATIVE PERCENT (BEAKER) (test 83 % dkup=744) LYMPHOCYTES RELATIVE PERCENT (BEAKER) (test 7 % mijh=106) MONOCYTES RELATIVE PERCENT (BEAKER) (test 4 % sjtp=227) EOSINOPHILS RELATIVE PERCENT (BEAKER) (test 0 % aiqf=351) BASOPHILS RELATIVE PERCENT (BEAKER) (test 0 % tsbv=384) NEUTROPHILS ABSOLUTE COUNT (BEAKER) (test 18.95 K/ L 1.78-5.38 pfjc=433) LYMPHOCYTES ABSOLUTE COUNT (BEAKER) (test 1.56 K/ L 1.32-3.57 kgcp=124) MONOCYTES ABSOLUTE COUNT (BEAKER) (test 0.98 K/ L 0.30-0.82 igti=640) EOSINOPHILS ABSOLUTE COUNT (BEAKER) (test 0.00 K/ L 0.04-0.54 tvxw=012) BASOPHILS ABSOLUTE COUNT (BEAKER) (test 0.06 K/ L 0.01-0.08 iugn=520) IMMATURE GRANULOCYTES-RELATIVE PERCENT (BEAKER) 6 % 0-1 (test vjop=7561) (MANUAL DIFFERENTIAL)2017-02-01 10:58:00 Test Item Value Reference Range Comments NEUTROPHILS - REL (DIFF) (BEAKER) (test 84 % scjd=2544) LYMPHOCYTES - REL (DIFF) (BEAKER) (test 6 % lrbd=1048) MONOCYTES - REL (DIFF) (BEAKER) (test nuge=9619) 4 % EOSINOPHILS - REL (DIFF) (BEAKER) (test 0 % xrjf=7842) BASOPHILS - REL (DIFF) (BEAKER) (test pwal=0313) 0 % MYELOCYTES-REL (DIFF) (BEAKER) (test dihg=8407) 1 % 0-0 PROMYELOCYTES-REL (DIFF) (BEAKER) (test naep=025) 1 % 0-0 BANDS - REL (DIFF) (BEAKER) (test zksi=4021) 4 % 0-10 NEUTROPHILS - ABS (DIFF) (BEAKER) (test 19.15 K/ L 1.80-8.00 psxp=2514) LYMPHOCYTES - ABS (DIFF) (BEAKER) (test 1.37 K/ L 1.48-4.50 jhte=5643) MONOCYTES - ABS (DIFF) (BEAKER) (test wlfp=0390) 0.91 K/ L 0.00-1.30 EOSINOPHILS - ABS (DIFF) (BEAKER) (test 0.00 K/ L 0.00-0.50 klwo=9574) BASOPHILS - ABS (DIFF) (BEAKER) (test qcad=1745) 0.00 K/ L 0.00-0.20 PROMYELOCYTES - ABS (DIFF) (BEAKER) (test 0.23 K/ L 0.00-0.00 xers=513) BANDS-ABS (DIFF) (BEAKER) (test jwez=1897) 0.9 K/ L 0.0-0.8 MYELOCYTES-ABS (DIFF) (BEAKER) (test gehb=4942) 0.23 K/ L 0.00-0.00 TOTAL COUNTED (BEAKER) (test wgfm=0847) 100 BANDS + SEGMENTED NEUTROPHILS (BEAKER) (test 20.06 caiq=3680) MANUAL NRBC PER 100 CELLS (BEAKER) (test 2 /100 WBC 0-0 hxij=3023) WBC MORPHOLOGY (BEAKER) (test mzut=457) Normal RBC MORPHOLOGY (BEAKER) (test jyci=691) Normal LARGE PLT(BEAKER) (test zabe=0596) Present CLUMPED PLATELETS (BEAKER) (test mahx=339) Present MISCELLANEOUS LAB [id number] 06:53:00 Test Item Value Reference Range Comments SCAN RESULT (test stgf=[id number]) Result comments: VANCOMYCIN-SUSCEPTIBLE ENTEROCOCCUS (VSE) DETECTED First line therapy: vancomycin or ampicillin (ampicillin only if confirmed susceptible) ( Goldie/vanB not detected) Other organisms and resistance markers not contained in this PCR panel cannot be excluded and follow-up of traditional culture results is required. This sample was tested at the [facility] Clinical Microbiology Laboratory using the [employer] Blood Culture ID Panel. This test is FDA cleared for in vitro diagnostic useand has been verified and approved by the [facility] Clinical Microbiology laboratory for clinical use. Reference Range: Not DetectedPOCT-GLUCOSE [id number] 06:24:00 Test Item Value Reference Range Comments POC-GLUCOSE METER (BEAKER) 239 mg/dL 70-110 TESTED AT [facility] [address] (test fuva=4655) [facility] [address] CALCIUM, [id number] 06:04:00 Test Item Value Reference Range Comments CALCIUM IONIZED (BEAKER) (test ajah=722) 1.04 mmol/L 1.12-1.27 PH, BLOOD (BEAKER) (test osqx=6951) 7.54 RAD, CHEST, 1 VIEW, NON [id number] 05:12:00Reason for exam:-> IntubatedShould this be performed [...] MDReport Verified Date/Time: 02/01/2017 05:12:24 Reading Location: [address] Body Reading Room PROTHROMBIN [id number] 05:11:00 Test Item Value Reference Range Comments PROTIME (BEAKER) (test kxgo=070) 18.1 seconds 11.7-14.7 INR (BEAKER) (test xuzz=399) 1.5 <=5.9 RECOMMENDED COUMADIN/WARFARIN INR THERAPY RANGESSTANDARD DOSE: 2.0 - 3.0 Includes: PROPHYLAXIS forvenous thrombosis, systemic embolization; TREATMENT for venous thrombosis and/or pulmonary embolus.HIGH RISK: Target INR is 2.5-3.5 for patients with mechanical heart valves.[id number] 05:07:00 Test Item Value Reference Range Comments MAGNESIUM (BEAKER) (test 2.3 mg/dL 1.6-2.6 Specimen slightly hemolyzed ozbz=715) [id number] 05:07:00 Test Item Value Reference Range Comments PHOSPHORUS (BEAKER) (test 3.3 mg/dL 2.3-4.7 Specimen slightly hemolyzed mhdz=549) BASIC METABOLIC [id number] 05:07:00 Test Item Value Reference Range Comments SODIUM (BEAKER) (test 154 meq/L 136-145 wacs=177) POTASSIUM (BEAKER) (test 3.6 meq/L 3.5-5.1 Specimen slightly wwhm=646) hemolyzed CHLORIDE (BEAKER) (test 114 meq/L 98-107 nhsp=581) CO2 (BEAKER) (test 29 meq/L 22-29 oumg=415) BLOOD UREA NITROGEN 43 mg/dL 7-21 (BEAKER) (test vint=159) CREATININE (BEAKER) (test 1.34 mg/dL 0.57-1.25 Specimen slightly igws=638) hemolyzed GLUCOSE RANDOM (BEAKER) 280 mg/dL 70-105 (test wzcf=338) CALCIUM (BEAKER) (test 8.1 mg/dL 8.4-10.2 ipzm=946) EGFR (BEAKER) (test 55 mL/min/1.73 sq m ESTIMATED GFR IS NOT fjbk=7494) ACCURATE CREATININE CLEARANCE IN PREDICTING GLOMERULAR FILTRATION RATE. ESTIMATED GFR IS NOT APPLICABLE FOR DIALYSIS PATIENTS. POCT-GLUCOSE [id number] 02:45:00 Test Item Value Reference Range Comments POC-GLUCOSE METER (BEAKER) 231 mg/dL 70-110 TESTED AT [address] (test xrrs=7422) [place] [address] POCT-GLUCOSE [id number] 23:54:00 Test Item Value Reference Range Comments POC-GLUCOSE METER (BEAKER) 158 mg/dL 70-110 TESTED AT [address] (test vlkz=0721) [place] [address] POCT-GLUCOSE [id number] 20:48:00 Test Item Value Reference Range Comments POC-GLUCOSE METER (BEAKER) 217 mg/dL 70-110 TESTED AT [address] (test nefn=5361) [place] [id number] POCT-GLUCOSE [id number] 18:55:00 Test Item Value Reference Range Comments POC-GLUCOSE METER (BEAKER) 202 mg/dL 70-110 TESTED AT [address] (test vyvj=0078) [place] [address] POCT-GLUCOSE [id number] 18:55:00 Test Item Value Reference Range Comments POC-GLUCOSE METER (BEAKER) 220 mg/dL 70-110 TESTED AT [address] (test bkjx=3588) [place] [address] RAD, CHEST, 1 VIEW, NON [id number] 17:48:00Reason for exam:->line placement Should this be [...] stable in size. No fracture. Signed: Galileo Orellanaeport Verified Date/Time: 01/31/2017 17 :48:33 Reading Location: [facility] Radiology Reading Room POCT-GLUCOSE [id number] 17 :47:00 Test Item Value Reference Range Comments POC-GLUCOSE METER (BEAKER) 177 mg/dL 70-110 TESTED AT [address] (test ltax=0464) [facility] [address] POCT-GLUCOSE [id number] 12:59:00 Test Item Value Reference Range Comments POC-GLUCOSE METER (BEAKER) 175 mg/dL 70-110 TESTED AT [address] (test bjgh=6298) [place] [address] POCT-GLUCOSE [id number] 12:59:00 Test Item Value Reference Range Comments POC-GLUCOSE METER (BEAKER) 163 mg/dL 70-110 TESTED AT [facility] [address] [facility] (test eipx=7574) [facility] [address] POCT-GLUCOSE [id number] 12:59:00 Test Item Value Reference Range Comments POC-GLUCOSE METER (BEAKER) 151 mg/dL 70-110 TESTED AT [facility] [address] [facility] (test ownk=6311) [facility] [address] [id number] 11:38:00 Test Item Value Reference Range Comments PARTIAL THROMBOPLASTIN TIME (BEAKER) (test 67.0 seconds 22.5-36.0 ngbk=448) CBC W/PLT COUNT & AUTO [id number] 11:00:00 Test Item Value Reference Range Comments WHITE BLOOD CELL COUNT (BEAKER) (test pzeq=927) 20.8 K/ L 3.5-10.5 RED BLOOD CELL COUNT (BEAKER) (test eiya=115) 4.58 M/ L 4.63-6.08 HEMOGLOBIN (BEAKER) (test kuyw=530) 13.2 GM/DL 13.7-17.5 HEMATOCRIT (BEAKER) (test qjds=169) 42.1 % 40.1-51.0 MEAN CORPUSCULAR VOLUME (BEAKER) (test wyyy=875) 91.9 fL 79.0-92.2 MEAN CORPUSCULAR HEMOGLOBIN (BEAKER) (test 28.8 pg 25.7-32.2 orew=697) MEAN CORPUSCULAR HEMOGLOBIN CONC (BEAKER) (test 31.4 GM/DL 32.3-36.5 twzk=756) RED CELL DISTRIBUTION WIDTH (BEAKER) (test 14.9 % 11.6-14.4 wkyq=648) PLATELET COUNT (BEAKER) (test plmb=390) 417 K/CU MM 150-450 MEAN PLATELET VOLUME (BEAKER) (test xvjq=808) 10.4 fL 9.4-12.4 NUCLEATED RED BLOOD CELLS (BEAKER) (test 0 /100 WBC 0-0 dfoj=492) NEUTROPHILS RELATIVE PERCENT (BEAKER) (test 75 % vgpc=093) LYMPHOCYTES RELATIVE PERCENT (BEAKER) (test 8 % raou=339) MONOCYTES RELATIVE PERCENT (BEAKER) (test 6 % tcqj=450) EOSINOPHILS RELATIVE PERCENT (BEAKER) (test 0 % otqh=151) BASOPHILS RELATIVE PERCENT (BEAKER) (test 1 % gvpl=687) NEUTROPHILS ABSOLUTE COUNT (BEAKER) (test 15.63 K/ L 1.78-5.38 chno=830) LYMPHOCYTES ABSOLUTE COUNT (BEAKER) (test 1.70 K/ L 1.32-3.57 meky=195) MONOCYTES ABSOLUTE COUNT (BEAKER) (test 1.25 K/ L 0.30-0.82 krlf=980) EOSINOPHILS ABSOLUTE COUNT (BEAKER) (test 0.03 K/ L 0.04-0.54 glff=521) BASOPHILS ABSOLUTE COUNT (BEAKER) (test 0.12 K/ L 0.01-0.08 kfez=286) IMMATURE GRANULOCYTES-RELATIVE PERCENT (BEAKER) 10 % 0-1 (test gteh=5725) (MANUAL DIFFERENTIAL)2017-01-31 11:00:00 Test Item Value Reference Range Comments TOTAL COUNTED (BEAKER) (test ayyu=5763) WBC MORPHOLOGY (BEAKER) (test mket=572) Normal PLT MORPHOLOGY (BEAKER) (test pwrj=041) Normal RBC MORPHOLOGY (BEAKER) (test ynbx=479) Normal POCT-GLUCOSE [id number] 07:58:00 Test Item Value Reference Range Comments POC-GLUCOSE METER (BEAKER) 125 mg/dL 70-110 TESTED AT [address] (test qyju=0148) [place] [address] POCT-GLUCOSE [id number] 06:02:00 Test Item Value Reference Range Comments POC-GLUCOSE METER (BEAKER) 145 mg/dL 70-110 TESTED AT [address] (test hjgl=4372) [place] [address] POCT-GLUCOSE [id number] 06:02:00 Test Item Value Reference Range Comments POC-GLUCOSE METER (BEAKER) 142 mg/dL 70-110 TESTED AT [address] (test rmdq=5054) [facility] [address] PROTHROMBIN [id number] 05:39:00 Test Item Value Reference Range Comments PROTIME (BEAKER) (test puac=427) 16.1 seconds 11.7-14.7 INR (BEAKER) (test emgx=279) 1.3 <=5.9 RECOMMENDED COUMADIN/WARFARIN INR THERAPY RANGESSTANDARD DOSE: 2.0 - 3.0 Includes: PROPHYLAXIS forvenous thrombosis, systemic embolization; TREATMENT for venous thrombosis and/or pulmonary embolus.HIGH RISK: Target INR is 2.5-3.5 for patients with mechanical heart valves.CALCIUM, [id number] 05:34:00 Test Item Value Reference Range Comments CALCIUM IONIZED (BEAKER) (test roon=458) 1.11 mmol/L 1.12-1.27 PH, BLOOD (BEAKER) (test pput=6267) 7.52 [id number] 05:34:00 Test Item Value Reference Range Comments PHOSPHORUS (BEAKER) (test dtat=971) 2.5 mg/dL 2.3-4.7 [id number] 05:34:00 Test Item Value Reference Range Comments MAGNESIUM (BEAKER) (test sdnz=753) 2.2 mg/dL 1.6-2.6 BASIC METABOLIC [id number] 05:34:00 Test Item Value Reference Range Comments SODIUM (BEAKER) (test 152 meq/L 136-145 ezzc=425) POTASSIUM (BEAKER) (test 3.5 meq/L 3.5-5.1 vwrc=752) CHLORIDE (BEAKER) (test 112 meq/L 98-107 sglf=256) CO2 (BEAKER) (test 30 meq/L 22-29 xtff=757) BLOOD UREA NITROGEN 37 mg/dL 7-21 (BEAKER) (test hbkg=748) CREATININE (BEAKER) (test 1.05 mg/dL 0.57-1.25 ufsx=048) GLUCOSE RANDOM (BEAKER) 142 mg/dL 70-105 (test oefs=408) CALCIUM (BEAKER) (test 8.4 mg/dL 8.4-10.2 sixd=702) EGFR (BEAKER) (test 73 mL/min/1.73 sq m ESTIMATED GFR IS NOT wjnv=6084) ACCURATE CREATININE CLEARANCE IN PREDICTING GLOMERULAR FILTRATION RATE. ESTIMATED GFR IS NOT APPLICABLE FOR DIALYSIS PATIENTS. HEPATIC FUNCTION [id number] 05:34:00 Test Item Value Reference Range Comments TOTAL PROTEIN (BEAKER) (test vibn=762) 5.8 gm/dL 6.0-8.3 ALBUMIN (BEAKER) (test vdls=9215) 2.5 g/dL 3.5-5.0 BILIRUBIN TOTAL (BEAKER) (test vjni=286) 0.4 mg/dL 0.2-1.2 BILIRUBIN DIRECT (BEAKER) (test lykq=864) 0.2 mg/dL 0.1-0.5 ALKALINE PHOSPHATASE (BEAKER) (test hxhg=229) 182 U/L 40-150 AST (SGOT) (BEAKER) (test bghn=684) 23 U/L 5-34 ALT (SGPT) (BEAKER) (test iphe=300) 13 U/L 6-55 POCT-GLUCOSE [id number] 04:37:00 Test Item Value Reference Range Comments POC-GLUCOSE METER (BEAKER) 128 mg/dL 70-110 TESTED AT [address] (test yvei=8447) [facility] [address] RAD, CHEST, 1 VIEW, NON [id number] 04:30:00Reason for exam:-> IntubatedShould this be performed at the bedside?->YesFINAL REPORT Comparison exam: 01/30/2017 Subsegmental right lung atelectasis unchanged. No pneumothorax. Stable cardiomediastinal contours. Appropriate position of the support hardware. Signed: David Romothe [facility] Verified Date/Time: 01/31/2017 04:30:06 Reading Location: [address] Ortho Consult Reading Room 04 :30 AMCT, [id number] 02:14:00 WILL REQUIRE ORAL CONTRASTFINAL REPORT CT [...] low anterior resection and ileostomy creation. Signed: Anirudh Romo Verified Date/Time: 01/31/2017 02:14:26 Reading Location: [facility] [id number] [facility] Consult Reading Room POCT-GLUCOSE [id number] 01:54:00 Test Item Value Reference Range Comments POC-GLUCOSE METER (CaLivingBenefits) 169 mg/dL 70-110 TESTED AT [facility] [address] [facility] (test vqai=2094) [facility] [address] [id number] 01:19:00 Test Item Value Reference Range Comments PARTIAL THROMBOPLASTIN TIME (BEAKER) (test 107.2 seconds 22.5-36.0 wken=962) POCT-GLUCOSE [id number] 00:51:00 Test Item Value Reference Range Comments POC-GLUCOSE METER (BEAKER) 210 mg/dL 70-110 TESTED AT [address] (test yrni=0961) [facility] [address] [id number] 00:38:00 Test Item Value Reference Range Comments PARTIAL THROMBOPLASTIN TIME (BEAKER) (test > seconds 22.5-36.0 wntn=362) POCT-GLUCOSE [id number] 23:42:00 Test Item Value Reference Range Comments POC-GLUCOSE METER (BEAKER) 194 mg/dL 70-110 TESTED AT [address] (test qnpg=4981) [facility] [address] POCT-GLUCOSE [id number] 23:12:00 Test Item Value Reference Range Comments POC-GLUCOSE METER (BEAKER) 211 mg/dL 70-110 TESTED AT [address] (test khbj=1397) [facility] [address] POCT-GLUCOSE [id number] 21:48:00 Test Item Value Reference Range Comments POC-GLUCOSE METER (BEAKER) 226 mg/dL 70-110 TESTED AT [address] (test pjfp=4200) [facility] [address] POCT-GLUCOSE [id number] 20:24:00 Test Item Value Reference Range Comments POC-GLUCOSE METER (BEAKER) 258 mg/dL 70-110 TESTED AT [address] (test zzew=7240) [facility] [address] POCT-GLUCOSE [id number] 18:27:00 Test Item Value Reference Range Comments POC-GLUCOSE METER (BEAKER) 312 mg/dL 70-110 Will Repeat Test/TESTED AT (test hoqz=3588) [address] [address] POCT-GLUCOSE [id number] 17:59:00 Test Item Value Reference Range Comments POC-GLUCOSE METER (BEAKER) 332 mg/dL 70-110 Will Repeat Test/TESTED AT (test tlpi=0062) [address] [address] [id number] 15:44:00 Test Item Value Reference Range Comments PARTIAL THROMBOPLASTIN TIME (BEAKER) (test 92.2 seconds 22.5-36.0 sudc=381) POCT-GLUCOSE [id number] 15:26:00 Test Item Value Reference Range Comments POC-GLUCOSE METER (BEAKER) 371 mg/dL 70-110 TESTED AT [place] [id number] [facility] (test rizx=3594) [facility] [address] POCT-GLUCOSE [id number] 15:17:00 Test Item Value Reference Range Comments POC-GLUCOSE METER (BEAKER) 311 mg/dL 70-110 TESTED AT [address] (test roec=8527) [facility] [address] POCT-GLUCOSE [id number] 15:17:00 Test Item Value Reference Range Comments POC-GLUCOSE METER (BEAKER) 271 mg/dL 70-110 TESTED AT [address] (test frsg=6726) [place] [id number] CBC W/PLT COUNT & AUTO [id number] 13:31:00 Test Item Value Reference Range Comments WHITE BLOOD CELL COUNT (BEAKER) (test eajh=836) 16.4 K/ L 3.5-10.5 RED BLOOD CELL COUNT (BEAKER) (test wcuk=902) 4.59 M/ L 4.63-6.08 HEMOGLOBIN (BEAKER) (test umip=563) 13.3 GM/DL 13.7-17.5 HEMATOCRIT (BEAKER) (test zjqu=674) 41.6 % 40.1-51.0 MEAN CORPUSCULAR VOLUME (BEAKER) (test kuir=389) 90.6 fL 79.0-92.2 MEAN CORPUSCULAR HEMOGLOBIN (BEAKER) (test 29.0 pg 25.7-32.2 edei=062) MEAN CORPUSCULAR HEMOGLOBIN CONC (BEAKER) (test 32.0 GM/DL 32.3-36.5 wptq=735) RED CELL DISTRIBUTION WIDTH (BEAKER) (test 14.9 % 11.6-14.4 lomv=923) PLATELET COUNT (BEAKER) (test lpke=854) 329 K/CU MM 150-450 MEAN PLATELET VOLUME (BEAKER) (test yrug=975) 10.6 fL 9.4-12.4 NUCLEATED RED BLOOD CELLS (BEAKER) (test 0 /100 WBC 0-0 xphx=750) NEUTROPHILS RELATIVE PERCENT (BEAKER) (test 73 % lslr=186) LYMPHOCYTES RELATIVE PERCENT (BEAKER) (test 9 % wxtp=171) MONOCYTES RELATIVE PERCENT (BEAKER) (test 7 % ilvk=815) EOSINOPHILS RELATIVE PERCENT (BEAKER) (test 0 % jrpn=545) BASOPHILS RELATIVE PERCENT (BEAKER) (test 0 % dujp=347) NEUTROPHILS ABSOLUTE COUNT (BEAKER) (test 11.91 K/ L 1.78-5.38 eksp=367) LYMPHOCYTES ABSOLUTE COUNT (BEAKER) (test 1.49 K/ L 1.32-3.57 tlgj=010) MONOCYTES ABSOLUTE COUNT (BEAKER) (test 1.08 K/ L 0.30-0.82 negj=404) EOSINOPHILS ABSOLUTE COUNT (BEAKER) (test 0.03 K/ L 0.04-0.54 ceic=785) BASOPHILS ABSOLUTE COUNT (BEAKER) (test 0.03 K/ L 0.01-0.08 mkjw=624) IMMATURE GRANULOCYTES-RELATIVE PERCENT (BEAKER) 11 % 0-1 (test vlib=4303) (MANUAL DIFFERENTIAL)2017-01-30 13:31:00 Test Item Value Reference Range Comments NEUTROPHILS - REL (DIFF) (BEAKER) (test 72 % ucix=0235) LYMPHOCYTES - REL (DIFF) (BEAKER) (test 14 % gscv=9302) MONOCYTES - REL (DIFF) (BEAKER) (test yqdq=6782) 2 % METAMYELOCYTES-REL (DIFF) (BEAKER) (test 1 % 0-0 teul=281) MYELOCYTES-REL (DIFF) (BEAKER) (test prwi=7700) 2 % 0-0 BANDS - REL (DIFF) (BEAKER) (test yhbt=8318) 9 % 0-10 NEUTROPHILS - ABS (DIFF) (BEAKER) (test 11.81 K/ L 1.80-8.00 vofm=0022) LYMPHOCYTES - ABS (DIFF) (BEAKER) (test 2.30 K/ L 1.48-4.50 ogzm=2162) MONOCYTES - ABS (DIFF) (BEAKER) (test zrne=3573) 0.33 K/ L 0.00-1.30 METAMYELOCTYES - ABS (DIFF) (BEAKER) (test 0.16 K/ L 0.00-0.00 bmdm=551) BANDS-ABS (DIFF) (BEAKER) (test xyxp=6909) 1.5 K/ L 0.0-0.8 MYELOCYTES-ABS (DIFF) (BEAKER) (test tsvw=9823) 0.33 K/ L 0.00-0.00 TOTAL COUNTED (BEAKER) (test fgso=7826) 100 BANDS + SEGMENTED NEUTROPHILS (BEAKER) (test 13.28 ojny=3296) MANUAL NRBC PER 100 CELLS (BEAKER) (test 1 /100 WBC 0-0 fjob=4490) RBC MORPHOLOGY (BEAKER) (test cktr=549) Normal ATYPICAL LYMPHS(BEAKER) (test hsmn=2462) Present LARGE PLT(BEAKER) (test ywhk=8893) Present POCT-GLUCOSE [id number] 13:20:00 Test Item Value Reference Range Comments POC-GLUCOSE METER (BEAKER) 304 mg/dL 70-110 Notified CATE NICHOLS/TESTED AT [facility] (test tycz=6961) [address] [facility] [address] RAD, ABDOMEN/KUB, 1 VIEW [id number] 11:13:00Reason for exam:->ileusFINAL REPORT Abdomen one view Comparison: January 27, 2017 Reason for exam: ileus Findings: Corpak and feeding tube project over the gastric body. There is a paucity of bowel gas, a nonspecific finding. Contrast is noted in the colon, which does not appear distended. No free air is identified. Signed: Mac Santamaria Verified Date/Time: 01/30/2017 11:13:36 Reading Location:[facility] Radiology Reading Room LACTIC ACID, VENOUS, WHOLE [id number] 11:04:00 Test Item Value Reference Range Comments LACTATE BLOOD VENOUS (2) (BEAKER) (test 1.5 mmol/L 0.5-2.2 yshc=3414) Effective 06/29/2015: Units/Reference Range ChangeNew: 0.5-2.2 mmol/L Previous: 5 -20 mg/dLOCCULT BLOOD, [id number] 08:44:00 Test Item Value Reference Range Comments FECAL OCCULT BLOOD (BEAKER) (test onpk=245) Negative Negative [id number] 06:46:00 Test Item Value Reference Range Comments PARTIAL THROMBOPLASTIN TIME (BEAKER) (test 44.7 seconds 22.5-36.0 bmnh=948) POCT-GLUCOSE [id number] 06:42:00 Test Item Value Reference Range Comments POC-GLUCOSE METER (BEAKER) 187 mg/dL 70-110 TESTED AT [address] (test kizw=8790) [place] [address] RAD, CHEST, 1 VIEW, NON [id number] 06:00:00Reason for exam:-> IntubatedShould this be performed at the bedside?->YesFINAL REPORT Comparison exam: 01/29/2017 Suboptimal chest x-ray secondary to right anterior oblique rotation. Low lung volumes. Bilateral subsegmental lower lobe atelectasis. Stable cardiomediastinal contours. Appropriate position of the support hardware. Signed: David Romo Verified Date/Time: 06:00:36 Reading Location: [address] Ortho Consult Reading Room POCT- GLUCOSE [id number] 05:19:00 Test Item Value Reference Range Comments POC-GLUCOSE METER (BEAKER) 141 mg/dL 70-110 TESTED AT [address] (test paoh=8834) [place] [address] POCT-GLUCOSE [id number] 05:19:00 Test Item Value Reference Range Comments POC-GLUCOSE METER (BEAKER) 140 mg/dL 70-110 TESTED AT [address] (test hzom=3828) [place] [address] CALCIUM, [id number] 04:51:00 Test Item Value Reference Range Comments CALCIUM IONIZED (BEAKER) (test mlqu=934) 1.07 mmol/L 1.12-1.27 PH, BLOOD (BEAKER) (test foqz=7825) 7.53 BLOOD GAS, [id number] 04:48:00 Test Item Value Reference Range Comments PH ARTERIAL (BEAKER) (test aelg=745) 7.50 7.35-7.45 PCO2 ARTERIAL (BEAKER) (test tnmp=526) 44 mmHg 35-45 PO2 ARTERIAL (BEAKER) (test ybyq=952) 130 mmHg 80-90 O2 SATURATION ARTERIAL (BEAKER) (test ngau=168) 98.7 % 96.0-97.0 HCO3 ARTERIAL (BEAKER) (test maxc=228) 34 mmol/L 21-29 BASE EXCESS ARTERIAL (BEAKER) (test fwfc=349) 9.9 mmol/L -2.0-3.0 PATIENT TEMPERATURE (BEAKER) (test nbjj=2794) 38.6 C FIO2 (BEAKER) (test vnke=8570) 40.0 % PROTHROMBIN [id number] 04:45:00 Test Item Value Reference Range Comments PROTIME (BEAKER) (test vtoz=659) 16.1 seconds 11.7-14.7 INR (BEAKER) (test owsg=568) 1.3 <=5.9 RECOMMENDED COUMADIN/WARFARIN INR THERAPY RANGESSTANDARD DOSE: 2.0 - 3.0 Includes: PROPHYLAXIS forvenous thrombosis, systemic embolization; TREATMENT for venous thrombosis and/or pulmonary embolus.HIGH RISK: Target INR is 2.5-3.5 for patients with mechanical heart valves.[id number] 04:45:00 Test Item Value Reference Range Comments PHOSPHORUS (BEAKER) (test bjis=983) 1.9 mg/dL 2.3-4.7 [id number] 04:45:00 Test Item Value Reference Range Comments MAGNESIUM (BEAKER) (test aszd=896) 2.0 mg/dL 1.6-2.6 BASIC METABOLIC [id number] 04:45:00 Test Item Value Reference Range Comments SODIUM (BEAKER) (test 150 meq/L 136-145 xgal=793) POTASSIUM (BEAKER) (test 3.4 meq/L 3.5-5.1 vbgw=676) CHLORIDE (BEAKER) (test 109 meq/L 98-107 minl=651) CO2 (BEAKER) (test 31 meq/L 22-29 lbfr=003) BLOOD UREA NITROGEN 27 mg/dL 7-21 (BEAKER) (test baoe=177) CREATININE (BEAKER) (test 1.06 mg/dL 0.57-1.25 eved=693) GLUCOSE RANDOM (BEAKER) 144 mg/dL 70-105 (test eayw=163) CALCIUM (BEAKER) (test 8.1 mg/dL 8.4-10.2 mmrw=825) EGFR (BEAKER) (test 72 mL/min/1.73 sq m ESTIMATED GFR IS NOT jddq=8898) ACCURATE CREATININE CLEARANCE IN PREDICTING GLOMERULAR FILTRATION RATE. ESTIMATED GFR IS NOT APPLICABLE FOR DIALYSIS PATIENTS. POCT-GLUCOSE [id number] 02:46:00 Test Item Value Reference Range Comments POC-GLUCOSE METER (BEAKER) 157 mg/dL 70-110 TESTED AT [address] (test rwoh=9661) [facility] [address] POCT-GLUCOSE [id number] 02:27:00 Test Item Value Reference Range Comments POC-GLUCOSE METER (BEAKER) 133 mg/dL 70-110 TESTED AT [address] (test ccvy=3233) [facility] [address] POCT-GLUCOSE [id number] 00:02:00 Test Item Value Reference Range Comments POC-GLUCOSE METER (BEAKER) 135 mg/dL 70-110 TESTED AT [address] (test bwnk=3774) [facility] [address] POCT-GLUCOSE [id number] 23:35:00 Test Item Value Reference Range Comments POC-GLUCOSE METER (BEAKER) 138 mg/dL 70-110 TESTED AT [address] (test cnus=8925) [facility] [address] CT, BRAIN, WITHOUT [id number] 22:34:00Portable CT HeadFINAL REPORT Clinical history : [...] Verified Date/Time: 01/29/2017 22 :34:49 Reading Location: [address] Ortho Consult Reading Room POCT- GLUCOSE [id number] 21:01:00 Test Item Value Reference Range Comments POC-GLUCOSE METER (BEAKER) 108 mg/dL 70-110 TESTED AT [address] (test ulqh=8924) [place] [address] POCT-GLUCOSE [id number] 19:59:00 Test Item Value Reference Range Comments POC-GLUCOSE METER (BEAKER) 117 mg/dL 70-110 TESTED AT [address] (test iikq=9248) [place] [address] POCT-GLUCOSE [id number] 19:04:00 Test Item Value Reference Range Comments POC-GLUCOSE METER (BEAKER) 144 mg/dL 70-110 TESTED AT [address] (test svot=4686) [place] [address] [id number] 18:14:00 Test Item Value Reference Range Comments PARTIAL THROMBOPLASTIN TIME (BEAKER) (test 88.5 seconds 22.5-36.0 ttfc=188) POCT-GLUCOSE [id number] 17:48:00 Test Item Value Reference Range Comments POC-GLUCOSE METER (BEAKER) 175 mg/dL 70-110 TESTED AT [address] (test pshg=6517) [place] [address] BLOOD [id number] 17:32:00 Test Item Value Reference Range Comments CULTURE (BEAKER) From Aerobic Bottle Only (test tfzj=6509) Coagulase negative Staphylococcusof a second type GRAM STAIN RESULT From aerobic bottle (BEAKER) (test only: gram positive iafh=9327) cocci in clusters Coagulase Negative Staphylococcus Species (CoNS) DETECTED, Methicillin Susceptible First line therapy: cefazolin, nafcillin (nafcillin preferred for Central Nervous System infection) Coagulase Negative Staphylococcus (CoNS) DETECTEDmecA NOT DETECTEDOther organisms and resistance markers not containedin this PCR panel cannot be excluded and follow-up of traditional culture results is required. This sample was tested at the [facility] Clinical Microbiology Laboratory using the [employer] Blood Culture ID Panel. This test is FDA cleared for in vitro diagnostic use and has been verified and approved by the [facility] Clinical Microbiology laboratory for clinical use. Reference Range: Not DetectedBLOOD GAS, [id number] 16:52:00 Test Item Value Reference Range Comments PH ARTERIAL (BEAKER) (test biri=018) 7.51 7.35-7.45 PCO2 ARTERIAL (BEAKER) (test ssqr=078) 41 mmHg 35-45 PO2 ARTERIAL (BEAKER) (test yleq=089) 91 mmHg 80-90 O2 SATURATION ARTERIAL (BEAKER) (test keny=448) 97.5 % 96.0-97.0 HCO3 ARTERIAL (BEAKER) (test zwhs=612) 32 mmol/L 21-29 BASE EXCESS ARTERIAL (BEAKER) (test dcpx=096) 8.4 mmol/L -2.0-3.0 PATIENT TEMPERATURE (BEAKER) (test qtpr=0952) 37.0 C FIO2 (BEAKER) (test ogyd=2604) 100.0 % POCT-GLUCOSE [id number] 16:38:00 Test Item Value Reference Range Comments POC-GLUCOSE METER (BEAKER) 164 mg/dL 70-110 TESTED AT [address] (test qqik=4475) [place] [address] MISCELLANEOUS LAB [id number] 14:45:00 Test Item Value Reference Range Comments SCAN RESULT (test fajs=[id number]) Result comments: Coagulase Negative Staphylococcus Species (CoNS) DETECTED, Methicillin Susceptible First line therapy: cefazolin, nafcillin (nafcillin preferred for Central Nervous System infection) Coagulase Negative Staphylococcus (CoNS) DETECTED mecA NOT DETECTED Other organisms and resistance markers not contained in this PCR panel cannot be excluded and follow-up of traditional culture results is required. This sample was tested at the [facility] Clinical Microbiology Laboratory using the [employer] FilmArray Blood Culture ID Panel. This test is FDA cleared for in vitro diagnostic use and has been verified and approved by the [facility] Clinical Microbiology laboratory for clinical use. Reference Range: Not DetectedPOCT-GLUCOSE [id number] 14:26:00 Test Item Value Reference Range Comments POC-GLUCOSE METER (BEAKER) 179 mg/dL 70-110 TESTED AT [address] (test swhe=8733) [place] [address] POCT-GLUCOSE [id number] 13:25:00 Test Item Value Reference Range Comments POC-GLUCOSE METER (BEAKER) 186 mg/dL 70-110 TESTED AT [address] (test fqnf=3601) [place] [id number] POCT-GLUCOSE [id number] 12:08:00 Test Item Value Reference Range Comments POC-GLUCOSE METER (BEAKER) 193 mg/dL 70-110 TESTED AT [address] (test wmqc=2348) [place] [address] BLOOD GAS, [id number] 11:31:00 Test Item Value Reference Range Comments PH ARTERIAL (BEAKER) (test zsuq=445) 7.47 7.35-7.45 PCO2 ARTERIAL (BEAKER) (test vydw=512) 47 mmHg 35-45 PO2 ARTERIAL (BEAKER) (test qqff=635) 124 mmHg 80-90 O2 SATURATION ARTERIAL (BEAKER) (test cmri=760) 98.5 % 96.0-97.0 HCO3 ARTERIAL (BEAKER) (test fkvf=228) 33 mmol/L 21-29 BASE EXCESS ARTERIAL (BEAKER) (test casw=504) 8.4 mmol/L -2.0-3.0 PATIENT TEMPERATURE (BEAKER) (test yvbq=7779) 38.0 C FIO2 (BEAKER) (test xkri=3178) 40.0 % POCT-GLUCOSE [id number] 11:14:00 Test Item Value Reference Range Comments POC-GLUCOSE METER (BEAKER) 181 mg/dL 70-110 TESTED AT [address] (test qrvd=4827) [place] [address] [id number] 10:20:00 Test Item Value Reference Range Comments PARTIAL THROMBOPLASTIN TIME (BEAKER) (test 89.6 seconds 22.5-36.0 iehu=078) POCT-GLUCOSE [id number] 10:05:00 Test Item Value Reference Range Comments POC-GLUCOSE METER (BEAKER) 204 mg/dL 70-110 TESTED AT [address] (test mvgj=8842) [place] [id number] POCT-GLUCOSE [id number] 09:09:00 Test Item Value Reference Range Comments POC-GLUCOSE METER (BEAKER) 221 mg/dL 70-110 TESTED AT [address] (test xhtc=9098) [place] [address] POCT-GLUCOSE [id number] 07:41:00 Test Item Value Reference Range Comments POC-GLUCOSE METER (BEAKER) 230 mg/dL 70-110 TESTED AT [place] [id number] [facility] (test xfbc=2875) [place] [id number] POCT-GLUCOSE [id number] 07:05:00 Test Item Value Reference Range Comments POC-GLUCOSE METER (BEAKER) 219 mg/dL 70-110 TESTED AT [address] (test mrvd=0366) [place] [id number] CBC W/PLT COUNT & AUTO [id number] 06:49:00 Test Item Value Reference Range Comments WHITE BLOOD CELL COUNT (BEAKER) (test sxtl=525) 13.3 K/ L 3.5-10.5 RED BLOOD CELL COUNT (BEAKER) (test ayik=484) 4.09 M/ L 4.63-6.08 HEMOGLOBIN (BEAKER) (test omgl=610) 12.0 GM/DL 13.7-17.5 HEMATOCRIT (BEAKER) (test ykit=190) 37.5 % 40.1-51.0 MEAN CORPUSCULAR VOLUME (BEAKER) (test zecy=217) 91.7 fL 79.0-92.2 MEAN CORPUSCULAR HEMOGLOBIN (BEAKER) (test 29.3 pg 25.7-32.2 rgzc=186) MEAN CORPUSCULAR HEMOGLOBIN CONC (BEAKER) (test 32.0 GM/DL 32.3-36.5 ojkb=541) RED CELL DISTRIBUTION WIDTH (BEAKER) (test 14.9 % 11.6-14.4 ouoe=129) PLATELET COUNT (BEAKER) (test fjpt=364) 207 K/CU MM 150-450 MEAN PLATELET VOLUME (BEAKER) (test iwyq=353) 10.6 fL 9.4-12.4 NUCLEATED RED BLOOD CELLS (BEAKER) (test 0 /100 WBC 0-0 ulpq=705) NEUTROPHILS RELATIVE PERCENT (BEAKER) (test 82 % lxnj=496) LYMPHOCYTES RELATIVE PERCENT (BEAKER) (test 4 % mndi=179) MONOCYTES RELATIVE PERCENT (BEAKER) (test 6 % shrh=937) EOSINOPHILS RELATIVE PERCENT (BEAKER) (test 0 % uvgf=802) BASOPHILS RELATIVE PERCENT (BEAKER) (test 0 % ejkv=379) NEUTROPHILS ABSOLUTE COUNT (BEAKER) (test 10.93 K/ L 1.78-5.38 psdg=497) LYMPHOCYTES ABSOLUTE COUNT (BEAKER) (test 0.54 K/ L 1.32-3.57 jewk=510) MONOCYTES ABSOLUTE COUNT (BEAKER) (test 0.85 K/ L 0.30-0.82 qiop=526) EOSINOPHILS ABSOLUTE COUNT (BEAKER) (test 0.01 K/ L 0.04-0.54 cwml=153) BASOPHILS ABSOLUTE COUNT (BEAKER) (test 0.04 K/ L 0.01-0.08 unpx=094) IMMATURE GRANULOCYTES-RELATIVE PERCENT (BEAKER) 7 % 0-1 (test cogj=4757) (MANUAL DIFFERENTIAL)2017-01-29 06:49:00 Test Item Value Reference Range Comments NEUTROPHILS - REL (DIFF) (BEAKER) (test 79 % kjki=7545) LYMPHOCYTES - REL (DIFF) (BEAKER) (test 6 % xwdu=1131) MONOCYTES - REL (DIFF) (BEAKER) (test ydmm=4681) 5 % EOSINOPHILS - REL (DIFF) (BEAKER) (test 0 % ibuo=5269) BASOPHILS - REL (DIFF) (BEAKER) (test tnoj=9618) 0 % METAMYELOCYTES-REL (DIFF) (BEAKER) (test 1 % 0-0 djyi=943) MYELOCYTES-REL (DIFF) (BEAKER) (test jyjr=7009) 1 % 0-0 PROMYELOCYTES-REL (DIFF) (BEAKER) (test iyke=544) 1 % 0-0 BANDS - REL (DIFF) (BEAKER) (test rigo=5886) 7 % 0-10 NEUTROPHILS - ABS (DIFF) (BEAKER) (test 10.51 K/ L 1.80-8.00 kxcd=1735) LYMPHOCYTES - ABS (DIFF) (BEAKER) (test 0.80 K/ L 1.48-4.50 qvpo=4480) MONOCYTES - ABS (DIFF) (BEAKER) (test qqjl=4672) 0.67 K/ L 0.00-1.30 EOSINOPHILS - ABS (DIFF) (BEAKER) (test 0.00 K/ L 0.00-0.50 ucmh=1899) BASOPHILS - ABS (DIFF) (BEAKER) (test mycl=6136) 0.00 K/ L 0.00-0.20 METAMYELOCTYES - ABS (DIFF) (BEAKER) (test 0.13 K/ L 0.00-0.00 hvag=705) PROMYELOCYTES - ABS (DIFF) (BEAKER) (test 0.13 K/ L 0.00-0.00 vrgp=932) BANDS-ABS (DIFF) (BEAKER) (test gyfu=1329) 0.9 K/ L 0.0-0.8 MYELOCYTES-ABS (DIFF) (BEAKER) (test ilvl=4657) 0.13 K/ L 0.00-0.00 TOTAL COUNTED (BEAKER) (test ayug=6306) 100 BANDS + SEGMENTED NEUTROPHILS (BEAKER) (test 11.44 cumc=5003) WBC MORPHOLOGY (BEAKER) (test dvrm=582) Normal RBC MORPHOLOGY (BEAKER) (test bidp=887) Normal LARGE PLT(BEAKER) (test gwmx=1355) Present POCT-GLUCOSE [id number] 05:56:00 Test Item Value Reference Range Comments POC-GLUCOSE METER (BEAKER) 207 mg/dL 70-110 TESTED AT [address] (test zady=5507) [place] [id number] POCT-GLUCOSE [id number] 05:56:00 Test Item Value Reference Range Comments POC-GLUCOSE METER (BEAKER) 233 mg/dL 70-110 TESTED AT [address] (test ewaj=7289) [facility] [address] RAD, CHEST, 1 VIEW, NON [id number] 05:42:00Reason for exam:-> IntubatedShould this be performed at the bedside?->YesFINAL REPORT Comparison exam: 01/28/2017 No pneumothorax, focal pulmonary consolidation, or significant pleural effusion. Stable cardiomediastinal contours. Appropriate position of the support hardware. Signed: David Romo Verified Date/Time: 01/29/2017 05:42:39 Reading Location: [facility] [id number] Ortho Consult Reading Room POCT-GLUCOSE [id number] 05:33:00 Test Item Value Reference Range Comments POC-GLUCOSE METER (BEAKER) 229 mg/dL 70-110 TESTED AT [facility] [address] (test pfwy=4345) [place] [address] BLOOD [id number] 05:01:00 Test Item Value Reference Range Comments CULTURE (BEAKER) (test qmjd=7713) No growth in 5 days BLOOD GAS, [id number] 04:38:00 Test Item Value Reference Range Comments PH ARTERIAL (BEAKER) (test pxpv=803) 7.41 7.35-7.45 PCO2 ARTERIAL (BEAKER) (test wdge=341) 52 mmHg 35-45 PO2 ARTERIAL (BEAKER) (test deki=317) 189 mmHg 80-90 O2 SATURATION ARTERIAL (BEAKER) (test icgj=435) 99.3 % 96.0-97.0 HCO3 ARTERIAL (BEAKER) (test sage=812) 32 mmol/L 21-29 BASE EXCESS ARTERIAL (BEAKER) (test spee=774) 6.1 mmol/L -2.0-3.0 PATIENT TEMPERATURE (BEAKER) (test gfub=5623) 37.5 C FIO2 (BEAKER) (test egmw=8004) 40.0 % CALCIUM, [id number] 04:36:00 Test Item Value Reference Range Comments CALCIUM IONIZED (BEAKER) (test uypn=371) 1.06 mmol/L 1.12-1.27 PH, BLOOD (BEAKER) (test mjbk=1967) 7.42 [id number] 04:18:00 Test Item Value Reference Range Comments MAGNESIUM (BEAKER) (test 2.0 mg/dL 1.6-2.6 Specimen slightly hemolyzed kwwn=700) [id number] 04:18:00 Test Item Value Reference Range Comments PHOSPHORUS (BEAKER) (test 2.4 mg/dL 2.3-4.7 Specimen slightly hemolyzed hczr=053) BASIC METABOLIC [id number] 04:18:00 Test Item Value Reference Range Comments SODIUM (BEAKER) (test 143 meq/L 136-145 mnrt=302) POTASSIUM (BEAKER) (test 3.7 meq/L 3.5-5.1 Specimen slightly qnsw=629) hemolyzed CHLORIDE (BEAKER) (test 106 meq/L 98-107 qyzm=293) CO2 (BEAKER) (test 28 meq/L 22-29 vlng=798) BLOOD UREA NITROGEN 21 mg/dL 7-21 (BEAKER) (test dgca=323) CREATININE (BEAKER) (test 1.11 mg/dL 0.57-1.25 Specimen slightly zcih=121) hemolyzed GLUCOSE RANDOM (BEAKER) 243 mg/dL 70-105 (test jyia=834) CALCIUM (BEAKER) (test 8.2 mg/dL 8.4-10.2 yiek=522) EGFR (BEAKER) (test 68 mL/min/1.73 sq m ESTIMATED GFR IS NOT gukv=7253) ACCURATE CREATININE CLEARANCE IN PREDICTING GLOMERULAR FILTRATION RATE. ESTIMATED GFR IS NOT APPLICABLE FOR DIALYSIS PATIENTS. PROTHROMBIN [id number] 04:03:00 Test Item Value Reference Range Comments PROTIME (BEAKER) (test xepv=513) 15.8 seconds 11.7-14.7 INR (BEAKER) (test vgpy=606) 1.3 <=5.9 RECOMMENDED COUMADIN/WARFARIN INR THERAPY RANGESSTANDARD DOSE: 2.0 - 3.0 Includes: PROPHYLAXIS forvenous thrombosis, systemic embolization; TREATMENT for venous thrombosis and/or pulmonary embolus.HIGH RISK: Target INR is 2.5-3.5 for patients with mechanical heart valves.[id number] 02:06:00 Test Item Value Reference Range Comments PARTIAL THROMBOPLASTIN TIME (BEAKER) (test 63.8 seconds 22.5-36.0 yctw=445) POCT-GLUCOSE [id number] 01:56:00 Test Item Value Reference Range Comments POC-GLUCOSE METER (BEAKER) 229 mg/dL 70-110 TESTED AT [address] (test xepu=7125) [facility] [address] POCT-GLUCOSE [id number] 01:31:00 Test Item Value Reference Range Comments POC-GLUCOSE METER (BEAKER) 259 mg/dL 70-110 TESTED AT [address] (test bxah=6091) [facility] [address] POCT-GLUCOSE [id number] 23:03:00 Test Item Value Reference Range Comments POC-GLUCOSE METER (BEAKER) 224 mg/dL 70-110 TESTED AT [address] (test xngp=3918) [facility] [address] POCT-GLUCOSE [id number] 22:13:00 Test Item Value Reference Range Comments POC-GLUCOSE METER (BEAKER) 185 mg/dL 70-110 TESTED AT [address] (test ftpy=8462) [facility] [address] POCT-GLUCOSE [id number] 21:03:00 Test Item Value Reference Range Comments POC-GLUCOSE METER (BEAKER) 164 mg/dL 70-110 TESTED AT [address] (test wxph=8721) [place] [id number] POCT-GLUCOSE [id number] 20:17:00 Test Item Value Reference Range Comments POC-GLUCOSE METER (BEAKER) 146 mg/dL 70-110 TESTED AT [address] (test gjnk=7985) [place] [address] [id number] 17:40:00 Test Item Value Reference Range Comments PARTIAL THROMBOPLASTIN TIME (BEAKER) (test 68.9 seconds 22.5-36.0 vsjm=331) [id number] 17:31:00 Test Item Value Reference Range Comments TRIGLYCERIDES (BEAKER) (test hngu=109) 91 mg/dL TRIGLYCERIDE REFERENCE RANGELow Risk <150Borderline Risk 150-199High Risk 200-499Very High Risk>=500RAD, CHEST, 1 VIEW, NON [id number] 17:26: 00Reason for exam:->line placement after pulling [...] osseous abnormality is identified. Signed: Talat Hare Verified Date/Time: 01/28/2017 17:26:47 Reading Location: [address] Consult Reading Room POCT- GLUCOSE [id number] 16:45:00 Test Item Value Reference Range Comments POC-GLUCOSE METER (BEAKER) 90 mg/dL 70-110 TESTED AT [address] (test cpej=2868) [place] [address] RAD, CHEST, 1 VIEW, NON [id number] 16:15:00Reason for exam:->pulled back central line Should [...] Santamaria Verified Date/Time: 05/2016 16:15:11 Reading Location: [address] Consult Reading Room POCT-GLUCOSE [id number] 16:14:00 Test Item Value Reference Range Comments POC-GLUCOSE METER (BEAKER) 88 mg/dL 70-110 TESTED AT [address] (test sbvt=3975) [place] [address] POCT-GLUCOSE [id number] 14:35:00 Test Item Value Reference Range Comments POC-GLUCOSE METER (BEAKER) 92 mg/dL 70-110 TESTED AT [address] (test jlsk=8666) [place] [address] CLOSTRIDIUM DIFFICILE TOXIN [id number] 13:58:00 Test Item Value Reference Range Comments CLOSTRIDIUM DIFFICILE TOXIN, PCR (BEAKER) (test Not Detected Not Detected btdy=8153) This qualitative real-time polymerase chain reaction assay [...] is not recommended.SURGICALLY OBTAINED CULTURE + GRAM [id number] 13:00:00 Test Item Value Reference Range Comments CULTURE (CaLivingBenefits) (test jjuv=8191) Amikacin (test code=1) Ampicillin + Sulbactam (test code=6) Aztreonam (test code=32) Cefepime (test code=51) Cefoxitin (test code=68) Ceftazidime (test code=27) Ceftriaxone (test code=52) Ertapenem (test code=38) Gentamicin (test code=18) Levofloxacin (test code=22) Meropenem (test code=34) Nitrofurantoin (test code=23) Piperacillin + Tazobactam (test code=29) Tetracycline (test code=2) Tobramycin (test code=25) Trimethoprim + Sulfamethoxazole (test code=47) CULTURE ([employer]efits) (test ENTEROCOCCUS SPECIES 3+ Escherichia coli yhve=6674) Ampicillin (test code=26) Linezolid (test code=40) Vancomycin (test code=13) CULTURE (TicTacTiAKER) (test 2+ Enterococcus geyg=9469) species CULTURE ([employer]efits) (test PSEUDOMONAS <1+ Viridans nkxc=3959) AERUGINOSA Streptococcus Amikacin (test code=1) Susceptible 0-16 , Resistant <0 or >16 Aztreonam (test code=32) Susceptible 0-8 , Resistant <0 or >8 Cefepime (test code=51) Susceptible 0-8 , Resistant <0 or >8 Ceftazidime (test Susceptible 0-8 , code=27) Resistant <0 or >8 Ciprofloxacin (test Susceptible 0-1 , code=7) Resistant <0 or >1 Doripenem (test amwc=505) Susceptible 0-2 , Resistant <0 or >2 [...] or >4 CULTURE (BEAKER) (test 2+ Pseudomonas jypk=4735) aeruginosa GRAM STAIN RESULT <1+ WBCs (BEAKER) (test momv=7595) GRAM STAIN RESULT <1+ gram negative (BEAKER) (test rods jlir=503024) GRAM STAIN RESULT <1+ gram positive (BEAKER) (test rods ldzk=706735) GRAM STAIN RESULT <1+ gram positive (BEAKER) (test cocci in chains mvzw=133378) [id number] 12:14:00 Test Item Value Reference Range Comments PARTIAL THROMBOPLASTIN TIME (BEAKER) (test 53.3 seconds 22.5-36.0 smbx=561) POCT-GLUCOSE [id number] 11:49:00 Test Item Value Reference Range Comments POC-GLUCOSE METER (BEAKER) 152 mg/dL 70-110 TESTED AT [address] (test pnea=5961) [facility] [address] OCCULT BLOOD, [id number] 10:54:00 Test Item Value Reference Range Comments FECAL OCCULT BLOOD (BEAKER) (test uitn=144) Negative Negative POCT-GLUCOSE [id number] 08:00:00 Test Item Value Reference Range Comments POC-GLUCOSE METER (BEAKER) 159 mg/dL 70-110 TESTED AT [address] (test hqdb=6968) [facility] [address] POCT-GLUCOSE [id number] 07:29:00 Test Item Value Reference Range Comments POC-GLUCOSE METER (BEAKER) 137 mg/dL 70-110 TESTED AT [facility] [address] [facility] (test vqls=7374) [facility] [address] POCT-GLUCOSE [id number] 06:34:00 Test Item Value Reference Range Comments POC-GLUCOSE METER (BEAKER) 144 mg/dL 70-110 TESTED AT [address] (test ibkj=4381) [facility] [address] POCT-GLUCOSE [id number] 05:39:00 Test Item Value Reference Range Comments POC-GLUCOSE METER (BEAKER) 150 mg/dL 70-110 TESTED AT [address] (test pyza=6337) [facility] [address] BLOOD GAS, [id number] 05:25:00 Test Item Value Reference Range Comments PH ARTERIAL (BEAKER) (test ndtc=110) 7.45 7.35-7.45 PCO2 ARTERIAL (BEAKER) (test htdn=898) 39 mmHg 35-45 PO2 ARTERIAL (BEAKER) (test gzvf=426) 160 mmHg 80-90 O2 SATURATION ARTERIAL (BEAKER) (test hlup=414) 99.1 % 96.0-97.0 HCO3 ARTERIAL (BEAKER) (test ijii=461) 26 mmol/L 21-29 BASE EXCESS ARTERIAL (BEAKER) (test xglu=824) 2.0 mmol/L -2.0-3.0 PATIENT TEMPERATURE (BEAKER) (test emaf=2007) 37.1 C FIO2 (BEAKER) (test otzk=5602) 40.0 % CALCIUM, [id number] 05:10:00 Test Item Value Reference Range Comments CALCIUM IONIZED (BEAKER) (test gang=148) 1.13 mmol/L 1.12-1.27 PH, BLOOD (BEAKER) (test imcf=8339) 7.40 [id number] 04:30:00 Test Item Value Reference Range Comments PHOSPHORUS (BEAKER) (test dbee=179) 2.0 mg/dL 2.3-4.7 [id number] 04:30:00 Test Item Value Reference Range Comments MAGNESIUM (BEAKER) (test erif=779) 2.2 mg/dL 1.6-2.6 BASIC METABOLIC [id number] 04:30:00 Test Item Value Reference Range Comments SODIUM (BEAKER) (test 139 meq/L 136-145 gnaw=951) POTASSIUM (BEAKER) (test 3.8 meq/L 3.5-5.1 yldi=610) CHLORIDE (BEAKER) (test 104 meq/L 98-107 nrid=582) CO2 (BEAKER) (test 29 meq/L 22-29 rkro=031) BLOOD UREA NITROGEN 21 mg/dL 7-21 (BEAKER) (test bvvt=732) CREATININE (BEAKER) (test 1.04 mg/dL 0.57-1.25 ugum=714) GLUCOSE RANDOM (BEAKER) 163 mg/dL 70-105 (test iapo=185) CALCIUM (BEAKER) (test 8.4 mg/dL 8.4-10.2 vhua=826) EGFR (BEAKER) (test 73 mL/min/1.73 sq m ESTIMATED GFR IS NOT kind=9634) ACCURATE CREATININE CLEARANCE IN PREDICTING GLOMERULAR FILTRATION RATE. ESTIMATED GFR IS NOT APPLICABLE FOR DIALYSIS PATIENTS. POCT-GLUCOSE [id number] 04:26:00 Test Item Value Reference Range Comments POC-GLUCOSE METER (BEAKER) 159 mg/dL 70-110 TESTED AT [address] (test ycqf=1679) [place] [id number] POCT-GLUCOSE [id number] 04:26:00 Test Item Value Reference Range Comments POC-GLUCOSE METER (BEAKER) 185 mg/dL 70-110 TESTED AT [address] (test rzzx=8562) [place] [address] POCT-GLUCOSE [id number] 04:26:00 Test Item Value Reference Range Comments POC-GLUCOSE METER (BEAKER) 174 mg/dL 70-110 TESTED AT [address] (test hzzk=3811) [place] [address] [id number] 04:16:00 Test Item Value Reference Range Comments PARTIAL THROMBOPLASTIN TIME (BEAKER) (test 47.9 seconds 22.5-36.0 glsh=265) PROTHROMBIN [id number] 04:15:00 Test Item Value Reference Range Comments PROTIME (BEAKER) (test vwbt=814) 15.1 seconds 11.7-14.7 INR (BEAKER) (test qquu=778) 1.2 <=5.9 RECOMMENDED COUMADIN/WARFARIN INR THERAPY RANGESSTANDARD DOSE: 2.0 - 3.0 Includes: PROPHYLAXIS forvenous thrombosis, systemic embolization; TREATMENT for venous thrombosis and/or pulmonary embolus.HIGH RISK: Target INR is 2.5-3.5 for patients with mechanical heart valves.CBC W/PLT COUNT & AUTO [id number] 04:11:00 Test Item Value Reference Range Comments WHITE BLOOD CELL COUNT (BEAKER) (test gwhv=297) 10.5 K/ L 3.5-10.5 RED BLOOD CELL COUNT (BEAKER) (test lwbu=026) 3.88 M/ L 4.63-6.08 HEMOGLOBIN (BEAKER) (test sosw=454) 11.3 GM/DL 13.7-17.5 HEMATOCRIT (BEAKER) (test cxnc=441) 35.3 % 40.1-51.0 MEAN CORPUSCULAR VOLUME (BEAKER) (test fruk=791) 91.0 fL 79.0-92.2 MEAN CORPUSCULAR HEMOGLOBIN (BEAKER) (test 29.1 pg 25.7-32.2 idjv=180) MEAN CORPUSCULAR HEMOGLOBIN CONC (BEAKER) (test 32.0 GM/DL 32.3-36.5 kfsq=703) RED CELL DISTRIBUTION WIDTH (BEAKER) (test 14.7 % 11.6-14.4 pmsr=234) PLATELET COUNT (BEAKER) (test gbbm=110) 164 K/CU MM 150-450 MEAN PLATELET VOLUME (BEAKER) (test ezqn=654) 10.7 fL 9.4-12.4 NUCLEATED RED BLOOD CELLS (BEAKER) (test 0 /100 WBC 0-0 aumk=384) NEUTROPHILS RELATIVE PERCENT (BEAKER) (test 86 % afde=699) LYMPHOCYTES RELATIVE PERCENT (BEAKER) (test 6 % ghtg=631) MONOCYTES RELATIVE PERCENT (BEAKER) (test 6 % fpka=625) EOSINOPHILS RELATIVE PERCENT (BEAKER) (test 0 % qrad=622) BASOPHILS RELATIVE PERCENT (BEAKER) (test 1 % yfuf=362) NEUTROPHILS ABSOLUTE COUNT (BEAKER) (test 8.99 K/ L 1.78-5.38 vzpw=650) LYMPHOCYTES ABSOLUTE COUNT (BEAKER) (test 0.58 K/ L 1.32-3.57 vzlw=913) MONOCYTES ABSOLUTE COUNT (BEAKER) (test 0.64 K/ L 0.30-0.82 ltat=684) EOSINOPHILS ABSOLUTE COUNT (BEAKER) (test 0.01 K/ L 0.04-0.54 ezxc=649) BASOPHILS ABSOLUTE COUNT (BEAKER) (test 0.05 K/ L 0.01-0.08 ayrc=560) IMMATURE GRANULOCYTES-RELATIVE PERCENT (BEAKER) 2 % 0-1 (test jkil=7317) RAD, CHEST, 1 VIEW, NON [id number] 03:49:00Reason for exam:-> IntubatedShould this be performed at the bedside?->YesFINAL REPORT CLINICAL INDICATION: Support lines. Comparison: 01/27/2017 The cardiomediastinal contours are stable. The lung volumes remain low. Central pulmonary vascular congestion and bilateral parenchymal and pleural opacities are unchanged. There is no pneumothorax. Support lines are stable. Signed: Nilesh Sheets MDReport Verified Date/Time: 01/28/2017 03:49:34 Reading Location : [address] Reading Room ANAEROBI [id number] 03:23:00 Test Item Value Reference Range Comments CULTURE (BEAKER) (test wvxk=6355) 2+ Bacteroides fragilis group POCT-GLUCOSE [id number] 23:48:00 Test Item Value Reference Range Comments POC-GLUCOSE METER (BEAKER) 161 mg/dL 70-110 TESTED AT [address] (test fsht=4453) [facility] [address] POCT-GLUCOSE [id number] 21:46:00 Test Item Value Reference Range Comments POC-GLUCOSE METER (BEAKER) 125 mg/dL 70-110 TESTED AT [address] (test iuyu=0792) [facility] [address] POCT-GLUCOSE [id number] 18:56:00 Test Item Value Reference Range Comments POC-GLUCOSE METER (BEAKER) 119 mg/dL 70-110 TESTED AT [address] (test cubm=1855) [facility] [address] POCT-GLUCOSE [id number] 16:53:00 Test Item Value Reference Range Comments POC-GLUCOSE METER (BEAKER) 113 mg/dL 70-110 TESTED AT [address] (test wtel=2164) [place] [id number] POCT-GLUCOSE [id number] 14:45:00 Test Item Value Reference Range Comments POC-GLUCOSE METER (BEAKER) 123 mg/dL 70-110 TESTED AT [address] (test mnvi=9927) [place] [id number] POCT-GLUCOSE [id number] 13:57:00 Test Item Value Reference Range Comments POC-GLUCOSE METER (BEAKER) 112 mg/dL 70-110 TESTED AT [address] (test uuod=0511) [place] [id number] POCT-GLUCOSE [id number] 12:37:00 Test Item Value Reference Range Comments POC-GLUCOSE METER (BEAKER) 109 mg/dL 70-110 TESTED AT [address] (test ncau=8348) [place] [address] POCT-GLUCOSE [id number] 11:28:00 Test Item Value Reference Range Comments POC-GLUCOSE METER (BEAKER) 130 mg/dL 70-110 TESTED AT [address] (test ctgj=1470) [place] [address] RAD, ABDOMEN/KUB, 1 VIEW [id number] 10:55:00Reason for exam:->DHT placementFINAL REPORT Abdomen. HISTORY: [...] MDReport Verified Date/Time: 01/27/2017 10:55:24 Reading Location: [facility] C013Y CT Body Reading Room POCT-GLUCOSE [id number] 10:24:00 Test Item Value Reference Range Comments POC-GLUCOSE METER (BEAKER) 125 mg/dL 70-110 TESTED AT [address] (test hvod=9732) [place] [id number] POCT-GLUCOSE [id number] 09:11:00 Test Item Value Reference Range Comments POC-GLUCOSE METER (BEAKER) 147 mg/dL 70-110 TESTED AT [address] (test gnpz=3558) [place] [id number] POCT-GLUCOSE [id number] 07:52:00 Test Item Value Reference Range Comments POC-GLUCOSE METER (BEAKER) 160 mg/dL 70-110 TESTED AT [address] (test fjmy=9533) [place] [address] RAD, CHEST, 1 VIEW, NON [id number] 06:47:00Reason for exam:-> IntubatedShould this be performed [...] Verified Date/Time: 01/27/2017 06:47: 41 Reading Location: [address] Body Reading Room POCT-GLUCOSE [id number] 05 :15:00 Test Item Value Reference Range Comments POC-GLUCOSE METER (BEAKER) 130 mg/dL 70-110 TESTED AT [address] (test wvjg=2575) [facility] [address] POCT-GLUCOSE [id number] 03:07:00 Test Item Value Reference Range Comments POC-GLUCOSE METER (BEAKER) 132 mg/dL 70-110 TESTED AT [address] (test xmit=6657) [place] [address] [id number] 02:46:00 Test Item Value Reference Range Comments PHOSPHORUS (BEAKER) (test igcp=656) 1.7 mg/dL 2.3-4.7 [id number] 02:46:00 Test Item Value Reference Range Comments MAGNESIUM (BEAKER) (test uncy=782) 1.9 mg/dL 1.6-2.6 BASIC METABOLIC [id number] 02:46:00 Test Item Value Reference Range Comments SODIUM (BEAKER) (test 138 meq/L 136-145 zqpt=853) POTASSIUM (BEAKER) (test 3.9 meq/L 3.5-5.1 cdnt=069) CHLORIDE (BEAKER) (test 108 meq/L 98-107 twqo=783) CO2 (BEAKER) (test 24 meq/L 22-29 kthi=075) BLOOD UREA NITROGEN 22 mg/dL 7-21 (BEAKER) (test pyfc=428) CREATININE (BEAKER) (test 0.84 mg/dL 0.57-1.25 bosi=100) GLUCOSE RANDOM (BEAKER) 138 mg/dL 70-105 (test nnpj=793) CALCIUM (BEAKER) (test 8.1 mg/dL 8.4-10.2 gogi=591) EGFR (BEAKER) (test 94 mL/min/1.73 sq m ESTIMATED GFR IS NOT wulo=1233) ACCURATE CREATININE CLEARANCE IN PREDICTING GLOMERULAR FILTRATION RATE. ESTIMATED GFR IS NOT APPLICABLE FOR DIALYSIS PATIENTS. CBC W/PLT COUNT & AUTO [id number] 02:44:00 Test Item Value Reference Range Comments WHITE BLOOD CELL COUNT (BEAKER) (test wgpm=630) 5.2 K/ L 3.5-10.5 RED BLOOD CELL COUNT (BEAKER) (test uwxc=806) 3.61 M/ L 4.63-6.08 HEMOGLOBIN (BEAKER) (test qvcs=713) 10.7 GM/DL 13.7-17.5 HEMATOCRIT (BEAKER) (test dhrt=953) 32.5 % 40.1-51.0 MEAN CORPUSCULAR VOLUME (BEAKER) (test vkth=057) 90.0 fL 79.0-92.2 MEAN CORPUSCULAR HEMOGLOBIN (BEAKER) (test 29.6 pg 25.7-32.2 azza=194) MEAN CORPUSCULAR HEMOGLOBIN CONC (BEAKER) (test 32.9 GM/DL 32.3-36.5 kanw=594) RED CELL DISTRIBUTION WIDTH (BEAKER) (test 14.3 % 11.6-14.4 jaqg=486) PLATELET COUNT (BEAKER) (test tfml=220) 111 K/CU MM 150-450 MEAN PLATELET VOLUME (BEAKER) (test otug=788) 10.4 fL 9.4-12.4 NUCLEATED RED BLOOD CELLS (BEAKER) (test 0 /100 WBC 0-0 fxre=523) NEUTROPHILS RELATIVE PERCENT (BEAKER) (test 88 % vsjp=093) LYMPHOCYTES RELATIVE PERCENT (BEAKER) (test 5 % fcfo=684) MONOCYTES RELATIVE PERCENT (BEAKER) (test 6 % psyd=462) EOSINOPHILS RELATIVE PERCENT (BEAKER) (test 0 % yvny=483) BASOPHILS RELATIVE PERCENT (BEAKER) (test 0 % skiq=838) NEUTROPHILS ABSOLUTE COUNT (BEAKER) (test 4.54 K/ L 1.78-5.38 ifdg=312) LYMPHOCYTES ABSOLUTE COUNT (BEAKER) (test 0.25 K/ L 1.32-3.57 vxsk=906) MONOCYTES ABSOLUTE COUNT (BEAKER) (test 0.32 K/ L 0.30-0.82 wqnx=799) EOSINOPHILS ABSOLUTE COUNT (BEAKER) (test 0.00 K/ L 0.04-0.54 scty=123) BASOPHILS ABSOLUTE COUNT (BEAKER) (test 0.01 K/ L 0.01-0.08 uvok=698) IMMATURE GRANULOCYTES-RELATIVE PERCENT (BEAKER) 1 % 0-1 (test bauq=3032) [id number] 02:42:00 Test Item Value Reference Range Comments PROTIME (BEAKER) (test rtfd=686) 16.5 seconds 11.7-14.7 INR (BEAKER) (test cslb=414) 1.3 <=5.9 PARTIAL THROMBOPLASTIN TIME (BEAKER) (test 80.0 seconds 22.5-36.0 fome=450) RECOMMENDED COUMADIN/WARFARIN INR THERAPY RANGESSTANDARD DOSE: 2.0 - 3.0 Includes: PROPHYLAXIS forvenous thrombosis, systemic embolization; TREATMENT for venous thrombosis and/or pulmonary embolus.HIGH RISK: Target INR is 2.5-3.5 for patients with mechanical heart valves.BLOOD GAS, [id number] 02:40:00 Test Item Value Reference Range Comments PH ARTERIAL (BEAKER) (test pjut=630) 7.48 7.35-7.45 PCO2 ARTERIAL (BEAKER) (test wcfg=986) 39 mmHg 35-45 PO2 ARTERIAL (BEAKER) (test sfum=391) 155 mmHg 80-90 O2 SATURATION ARTERIAL (BEAKER) (test lqhg=939) 99.1 % 96.0-97.0 HCO3 ARTERIAL (BEAKER) (test jtgk=809) 28 mmol/L 21-29 BASE EXCESS ARTERIAL (BEAKER) (test kkej=276) 4.4 mmol/L -2.0-3.0 PATIENT TEMPERATURE (BEAKER) (test zfxl=7138) 37.2 C FIO2 (BEAKER) (test aipd=7873) 60.0 % CALCIUM, [id number] 02:40:00 Test Item Value Reference Range Comments CALCIUM IONIZED (BEAKER) (test ebdk=650) 1.09 mmol/L 1.12-1.27 PH, BLOOD (BEAKER) (test cpir=2634) 7.48 PROTHROMBIN [id number] 02:40:00 Test Item Value Reference Range Comments PROTIME (BEAKER) (test kxui=032) 16.5 seconds 11.7-14.7 INR (BEAKER) (test woeg=812) 1.3 <=5.9 RECOMMENDED COUMADIN/WARFARIN INR THERAPY RANGESSTANDARD DOSE: 2.0 - 3.0 Includes: PROPHYLAXIS forvenous thrombosis, systemic embolization; TREATMENT for venous thrombosis and/or pulmonary embolus.HIGH RISK: Target INR is 2.5-3.5 for patients with mechanical heart valves.POCT-GLUCOSE [id number] 02:09:00 Test Item Value Reference Range Comments POC-GLUCOSE METER (BEAKER) 134 mg/dL 70-110 TESTED AT [address] (test jvou=8023) [facility] [address] TSH/FREE T4 IF [id number] 01:36:00 Test Item Value Reference Range Comments THYROID STIMULATING HORMONE (BEAKER) (test 2.06 uIU/mL 0.35-4.94 nvff=361) POCT-GLUCOSE [id number] 01:16:00 Test Item Value Reference Range Comments POC-GLUCOSE METER (BEAKER) 140 mg/dL 70-110 TESTED AT [address] (test isfu=9512) [facility] [address] CBC W/PLT COUNT & AUTO [id number] 01:00:00 Test Item Value Reference Range Comments WHITE BLOOD CELL COUNT (BEAKER) (test nbsi=620) 5.8 K/ L 3.5-10.5 RED BLOOD CELL COUNT (BEAKER) (test kqlc=422) 3.98 M/ L 4.63-6.08 HEMOGLOBIN (BEAKER) (test sfpb=063) 11.8 GM/DL 13.7-17.5 HEMATOCRIT (BEAKER) (test cxep=849) 35.7 % 40.1-51.0 MEAN CORPUSCULAR VOLUME (BEAKER) (test pkyd=040) 89.7 fL 79.0-92.2 MEAN CORPUSCULAR HEMOGLOBIN (BEAKER) (test 29.6 pg 25.7-32.2 xsbn=452) MEAN CORPUSCULAR HEMOGLOBIN CONC (BEAKER) (test 33.1 GM/DL 32.3-36.5 waqo=044) RED CELL DISTRIBUTION WIDTH (BEAKER) (test 14.2 % 11.6-14.4 jwzi=102) PLATELET COUNT (BEAKER) (test ynqg=559) 128 K/CU MM 150-450 MEAN PLATELET VOLUME (BEAKER) (test ylln=600) 10.7 fL 9.4-12.4 NUCLEATED RED BLOOD CELLS (BEAKER) (test 0 /100 WBC 0-0 sbga=978) NEUTROPHILS RELATIVE PERCENT (BEAKER) (test 88 % tlaj=814) LYMPHOCYTES RELATIVE PERCENT (BEAKER) (test 5 % zsmt=892) MONOCYTES RELATIVE PERCENT (BEAKER) (test 6 % yoop=461) EOSINOPHILS RELATIVE PERCENT (BEAKER) (test 0 % tree=097) BASOPHILS RELATIVE PERCENT (BEAKER) (test 0 % ckuf=427) NEUTROPHILS ABSOLUTE COUNT (BEAKER) (test 5.09 K/ L 1.78-5.38 rzxr=280) LYMPHOCYTES ABSOLUTE COUNT (BEAKER) (test 0.26 K/ L 1.32-3.57 rfwi=657) MONOCYTES ABSOLUTE COUNT (BEAKER) (test 0.36 K/ L 0.30-0.82 ewti=136) EOSINOPHILS ABSOLUTE COUNT (BEAKER) (test 0.01 K/ L 0.04-0.54 cfzf=531) BASOPHILS ABSOLUTE COUNT (BEAKER) (test 0.01 K/ L 0.01-0.08 jeao=137) IMMATURE GRANULOCYTES-RELATIVE PERCENT (BEAKER) 1 % 0-1 (test ouhb=5344) CREATINE KINASE (CK), TOTAL AND [id number] 00:24:00 Test Item Value Reference Range Comments CREATINE KINASE TOTAL (BEAKER) (test luiq=921) 2022 U/L 29-200 CREATINE KINASE-MB (BEAKER) (test tqqc=910) 4.2 ng/mL 0.0-6.6 CREATINE KINASE-MB INDEX (BEAKER) (test zsna=828) 0.2 % CK-MB Reference Range:<6.7 Normal6.7-10.0 Borderline>10.0 AbnormalTROPONIN [id number] 00:24:00 Test Item Value Reference Range Comments TROPONIN I (BEAKER) (test rztt=591) < ng/mL 0.00-0.03 Troponin I (TnI) levels [...] failure, acidosis, acute neurological disease, and persistent tachyarrhythmia.[id number] 00:17:00 Test Item Value Reference Range Comments MAGNESIUM (BEAKER) (test qlqt=096) 2.2 mg/dL 1.6-2.6 BASIC METABOLIC [id number] 00:17:00 Test Item Value Reference Range Comments SODIUM (BEAKER) (test 137 meq/L 136-145 xtuj=203) POTASSIUM (BEAKER) (test 4.0 meq/L 3.5-5.1 jrgy=452) CHLORIDE (BEAKER) (test 105 meq/L 98-107 eomr=201) CO2 (BEAKER) (test 24 meq/L 22-29 wovg=680) BLOOD UREA NITROGEN 22 mg/dL 7-21 (BEAKER) (test iwrh=283) CREATININE (BEAKER) (test 0.91 mg/dL 0.57-1.25 hiqu=153) GLUCOSE RANDOM (BEAKER) 147 mg/dL 70-105 (test qedu=418) CALCIUM (BEAKER) (test 8.3 mg/dL 8.4-10.2 lvue=172) EGFR (BEAKER) (test 86 mL/min/1.73 sq m ESTIMATED GFR IS NOT cbpm=4190) ACCURATE CREATININE CLEARANCE IN PREDICTING GLOMERULAR FILTRATION RATE. ESTIMATED GFR IS NOT APPLICABLE FOR DIALYSIS PATIENTS. CALCIUM, [id number] 00:17:00 Test Item Value Reference Range Comments CALCIUM IONIZED (BEAKER) (test psfa=863) 1.11 mmol/L 1.12-1.27 PH, BLOOD (BEAKER) (test oqkx=1182) 7.44 POCT-GLUCOSE [id number] 00:02:00 Test Item Value Reference Range Comments POC-GLUCOSE METER (BEAKER) 157 mg/dL 70-110 TESTED AT [address] (test yfhp=7075) [facility] [address] POCT-GLUCOSE [id number] 00:02:00 Test Item Value Reference Range Comments POC-GLUCOSE METER (BEAKER) 99 mg/dL 70-110 TESTED AT [address] (test xnkz=6805) [place] [id number] POCT-GLUCOSE [id number] 23:09:00 Test Item Value Reference Range Comments POC-GLUCOSE METER (BEAKER) 137 mg/dL 70-110 TESTED AT [address] (test mzph=0960) [facility] [address] POCT-GLUCOSE [id number] 22:13:00 Test Item Value Reference Range Comments POC-GLUCOSE METER (BEAKER) 109 mg/dL 70-110 TESTED AT [address] (test eoso=9833) [facility] [address] POCT-GLUCOSE [id number] 21:41:00 Test Item Value Reference Range Comments POC-GLUCOSE METER (BEAKER) 97 mg/dL 70-110 TESTED AT [address] (test nejr=8574) [facility] [address] POCT-GLUCOSE [id number] 20:26:00 Test Item Value Reference Range Comments POC-GLUCOSE METER (BEAKER) 120 mg/dL 70-110 TESTED AT [address] (test jnea=4288) [facility] [address] POCT-GLUCOSE [id number] 19:06:00 Test Item Value Reference Range Comments POC-GLUCOSE METER (BEAKER) 139 mg/dL 70-110 TESTED AT [address] (test vgej=5376) [facility] [address] POCT-GLUCOSE [id number] 18:16:00 Test Item Value Reference Range Comments POC-GLUCOSE METER (BEAKER) 169 mg/dL 70-110 TESTED AT [address] (test detc=0115) [facility] [address] POCT-GLUCOSE [id number] 16:40:00 Test Item Value Reference Range Comments POC-GLUCOSE METER (BEAKER) 211 mg/dL 70-110 TESTED AT [address] (test srhn=5609) [place] [address] POCT-GLUCOSE [id number] 15:48:00 Test Item Value Reference Range Comments POC-GLUCOSE METER (BEAKER) 191 mg/dL 70-110 TESTED AT [address] (test sepe=9186) [facility] [address] [id number] 15:29:00 Test Item Value Reference Range Comments PARTIAL THROMBOPLASTIN TIME (BEAKER) (test 73.9 seconds 22.5-36.0 vmhz=543) RAD, ABDOMEN/KUB, 1 VIEW [id number] 14:56:00Reason for exam:->dobbhoff advancementFINAL REPORT ONE VIEW [...] Cochran Verified Date/Time: 01/26/2017 14:56:31 Reading Location: [facility] C013X Ortho Consult Reading Room Electronically signed by: SAAD COCHRAN MD on 2016 02:56 PMRAD, ABDOMEN/KUB, 1 VIEW [id number] 14:55:00Reason for exam:-> dobbhoff advancementFINAL REPORT ONE [...] Cochran Verified Date/Time: 01/26/2017 14:55:35 Reading Location: [facility] C013X Ortho Consult Reading Room POCT-GLUCOSE [id number] 14:28:00 Test Item Value Reference Range Comments POC-GLUCOSE METER (BEAKER) 182 mg/dL 70-110 TESTED AT [address] (test glhf=9535) [place] [id number] POCT-GLUCOSE [id number] 13:02:00 Test Item Value Reference Range Comments POC-GLUCOSE METER (BEAKER) 170 mg/dL 70-110 TESTED AT [address] (test sbfw=0545) [place] [address] RAD, ABDOMEN/KUB, 1 VIEW [id number] 12:46:00Reason for exam:->dobbhuff tube placementFINAL REPORT ONE VIEW ABDOMEN HISTORY: Feeding tube placement COMPARISON: 01/24/2017 FINDINGS: Single supine AP image of the abdomen was obtained. Feeding tube passes below the diaphragm, with the tip in the region of the body of the stomach. The tip of the nasogastric tube projects just proximal to this. No dilated bowel loops are identified. Signed: Saad Cochran MDReport Verified Date/Time: 01/26/2017 12:46:01 Reading Location : [facility] C013X Ortho Consult Reading Room POCT-GLUCOSE [id number] 12:07:00 Test Item Value Reference Range Comments POC-GLUCOSE METER (BEAKER) 166 mg/dL 70-110 TESTED AT [address] (test spwq=0594) [facility] [address] POCT-GLUCOSE [id number] 10:35:00 Test Item Value Reference Range Comments POC-GLUCOSE METER (BEAKER) 152 mg/dL 70-110 TESTED AT [address] (test fpwu=6342) [place] [address] POCT-GLUCOSE [id number] 09:19:00 Test Item Value Reference Range Comments POC-GLUCOSE METER (BEAKER) 153 mg/dL 70-110 TESTED AT [address] (test outk=4170) [place] [address] [id number] 08:56:00 Test Item Value Reference Range Comments PARTIAL THROMBOPLASTIN TIME (BEAKER) (test 79.9 seconds 22.5-36.0 wmvy=144) CBC W/PLT COUNT & AUTO [id number] 08:34:00 Test Item Value Reference Range Comments WHITE BLOOD CELL COUNT (BEAKER) (test lkpf=268) 8.2 K/ L 3.5-10.5 RED BLOOD CELL COUNT (BEAKER) (test pvrv=099) 4.20 M/ L 4.63-6.08 HEMOGLOBIN (BEAKER) (test bczn=340) 12.4 GM/DL 13.7-17.5 HEMATOCRIT (BEAKER) (test bdpv=186) 37.2 % 40.1-51.0 MEAN CORPUSCULAR VOLUME (BEAKER) (test tiji=903) 88.6 fL 79.0-92.2 MEAN CORPUSCULAR HEMOGLOBIN (BEAKER) (test 29.5 pg 25.7-32.2 manr=822) MEAN CORPUSCULAR HEMOGLOBIN CONC (BEAKER) (test 33.3 GM/DL 32.3-36.5 dxuo=379) RED CELL DISTRIBUTION WIDTH (BEAKER) (test 14.3 % 11.6-14.4 fzek=166) PLATELET COUNT (BEAKER) (test zill=315) 152 K/CU MM 150-450 MEAN PLATELET VOLUME (BEAKER) (test ylwd=401) 10.1 fL 9.4-12.4 NUCLEATED RED BLOOD CELLS (BEAKER) (test 0 /100 WBC 0-0 otwo=437) NEUTROPHILS RELATIVE PERCENT (BEAKER) (test 87 % umpu=738) LYMPHOCYTES RELATIVE PERCENT (BEAKER) (test 3 % asbs=788) MONOCYTES RELATIVE PERCENT (BEAKER) (test 7 % kbyh=423) EOSINOPHILS RELATIVE PERCENT (BEAKER) (test 0 % nilv=025) BASOPHILS RELATIVE PERCENT (BEAKER) (test 1 % xxpg=884) NEUTROPHILS ABSOLUTE COUNT (BEAKER) (test 7.12 K/ L 1.78-5.38 zfty=763) LYMPHOCYTES ABSOLUTE COUNT (BEAKER) (test 0.28 K/ L 1.32-3.57 lttz=265) MONOCYTES ABSOLUTE COUNT (BEAKER) (test 0.55 K/ L 0.30-0.82 tvjc=517) EOSINOPHILS ABSOLUTE COUNT (BEAKER) (test 0.00 K/ L 0.04-0.54 miok=518) BASOPHILS ABSOLUTE COUNT (BEAKER) (test 0.05 K/ L 0.01-0.08 ousc=780) IMMATURE GRANULOCYTES-RELATIVE PERCENT (BEAKER) 3 % 0-1 (test oike=3964) (MANUAL DIFFERENTIAL)2017-01-26 08:34:00 Test Item Value Reference Range Comments NEUTROPHILS - REL (DIFF) (BEAKER) (test mnya=9421) 49 % LYMPHOCYTES - REL (DIFF) (BEAKER) (test prbp=6551) 7 % MONOCYTES - REL (DIFF) (BEAKER) (test pztj=4202) 6 % EOSINOPHILS - REL (DIFF) (BEAKER) (test iahp=1956) 1 % METAMYELOCYTES-REL (DIFF) (BEAKER) (test qcdq=542) 1 % 0-0 BANDS - REL (DIFF) (BEAKER) (test jece=5169) 36 % 0-10 NEUTROPHILS - ABS (DIFF) (BEAKER) (test gwsy=4770) 4.02 K/ L 1.80-8.00 LYMPHOCYTES - ABS (DIFF) (BEAKER) (test tvjo=2164) 0.57 K/ L 1.48-4.50 MONOCYTES - ABS (DIFF) (BEAKER) (test cavs=9633) 0.49 K/ L 0.00-1.30 EOSINOPHILS - ABS (DIFF) (BEAKER) (test xydr=6426) 0.08 K/ L 0.00-0.50 METAMYELOCTYES - ABS (DIFF) (BEAKER) (test 0.08 K/ L 0.00-0.00 ukga=458) BANDS-ABS (DIFF) (BEAKER) (test othw=2375) 3.0 K/ L 0.0-0.8 TOTAL COUNTED (BEAKER) (test zkux=4217) 100 BANDS + SEGMENTED NEUTROPHILS (BEAKER) (test 6.97 bwwj=7271) WBC MORPHOLOGY (BEAKER) (test qiae=898) Normal LARGE PLT(BEAKER) (test pkzm=0176) Present GIANT PLATELETS (BEAKER) (test oruq=945) Present CLUMPED PLATELETS (BEAKER) (test ahpu=641) Present ANISOCYTOSIS (BEAKER) (test gfuv=184) 1+ few POIKILOCYTES (BEAKER) (test ffjj=449) 1+ few POCT-GLUCOSE [id number] 08:09:00 Test Item Value Reference Range Comments POC-GLUCOSE METER (BEAKER) 161 mg/dL 70-110 TESTED AT [facility] [address] [facility] (test zmlk=6385) [facility] [address] POCT-GLUCOSE [id number] 06:27:00 Test Item Value Reference Range Comments POC-GLUCOSE METER (BEAKER) 126 mg/dL 70-110 TESTED AT [place] [id number] [facility] (test ejkl=3249) [facility] [address] RAD, CHEST, 1 VIEW, NON [id number] 04:39:00Reason for exam:-> IntubatedShould this be performed [...] MDReport Verified Date/Time: 01/26/2017 04:39:49 Reading Location: [facility] C013Y CT Body Reading Room [id number] 04:27:00 Test Item Value Reference Range Comments PHOSPHORUS (BEAKER) (test mbmo=176) 2.0 mg/dL 2.3-4.7 [id number] 04:27:00 Test Item Value Reference Range Comments MAGNESIUM (BEAKER) (test sttd=078) 1.9 mg/dL 1.6-2.6 BASIC METABOLIC [id number] 04:27:00 Test Item Value Reference Range Comments SODIUM (BEAKER) (test 139 meq/L 136-145 melc=889) POTASSIUM (BEAKER) (test 3.9 meq/L 3.5-5.1 yiju=701) CHLORIDE (BEAKER) (test 106 meq/L 98-107 vzwk=751) CO2 (BEAKER) (test 25 meq/L 22-29 whgv=891) BLOOD UREA NITROGEN 23 mg/dL 7-21 (BEAKER) (test lvxc=898) CREATININE (BEAKER) (test 1.07 mg/dL 0.57-1.25 tdwq=687) GLUCOSE RANDOM (BEAKER) 139 mg/dL 70-105 (test aoem=242) CALCIUM (BEAKER) (test 8.1 mg/dL 8.4-10.2 vvsi=717) EGFR (BEAKER) (test 71 mL/min/1.73 sq m ESTIMATED GFR IS NOT rptk=3141) ACCURATE CREATININE CLEARANCE IN PREDICTING GLOMERULAR FILTRATION RATE. ESTIMATED GFR IS NOT APPLICABLE FOR DIALYSIS PATIENTS. POCT-GLUCOSE [id number] 04:21:00 Test Item Value Reference Range Comments POC-GLUCOSE METER (BEAKER) 133 mg/dL 70-110 TESTED AT [address] (test cscb=7548) [facility] [address] POCT-GLUCOSE [id number] 04:21:00 Test Item Value Reference Range Comments POC-GLUCOSE METER (BEAKER) 128 mg/dL 70-110 TESTED AT [place] [id number] [facility] (test dtwt=4486) [facility] [address] PROTHROMBIN [id number] 03:58:00 Test Item Value Reference Range Comments PROTIME (BEAKER) (test isbz=056) 17.4 seconds 11.7-14.7 INR (BEAKER) (test cbax=693) 1.4 <=5.9 RECOMMENDED COUMADIN/WARFARIN INR THERAPY RANGESSTANDARD DOSE: 2.0 - 3.0 Includes: PROPHYLAXIS forvenous thrombosis, systemic embolization; TREATMENT for venous thrombosis and/or pulmonary embolus.HIGH RISK: Target INR is 2.5-3.5 for patients with mechanical heart valves.BLOOD GAS, [id number] 03:43:00 Test Item Value Reference Range Comments PH ARTERIAL (BEAKER) (test zgbq=212) 7.41 7.35-7.45 PCO2 ARTERIAL (BEAKER) (test vzap=589) 44 mmHg 35-45 PO2 ARTERIAL (BEAKER) (test kilw=200) 109 mmHg 80-90 O2 SATURATION ARTERIAL (BEAKER) (test jspy=971) 97.8 % 96.0-97.0 HCO3 ARTERIAL (BEAKER) (test eszi=011) 27 mmol/L 21-29 BASE EXCESS ARTERIAL (BEAKER) (test dide=266) 2.1 mmol/L -2.0-3.0 PATIENT TEMPERATURE (BEAKER) (test dygi=6373) 38.0 C FIO2 (BEAKER) (test iplx=1748) 70.0 % CALCIUM, [id number] 03:43:00 Test Item Value Reference Range Comments CALCIUM IONIZED (BEAKER) (test smcv=656) 1.07 mmol/L 1.12-1.27 PH, BLOOD (BEAKER) (test cmfs=3465) 7.42 POCT-GLUCOSE [id number] 02:45:00 Test Item Value Reference Range Comments POC-GLUCOSE METER (BEAKER) 128 mg/dL 70-110 TESTED AT [address] (test vpem=4832) [place] [id number] POCT-GLUCOSE [id number] 02:45:00 Test Item Value Reference Range Comments POC-GLUCOSE METER (BEAKER) 152 mg/dL 70-110 TESTED AT [address] (test abay=3007) [place] [address] [id number] 02:16:00 Test Item Value Reference Range Comments PARTIAL THROMBOPLASTIN TIME (BEAKER) (test 71.1 seconds 22.5-36.0 clmt=236) POCT-GLUCOSE [id number] 00:37:00 Test Item Value Reference Range Comments POC-GLUCOSE METER (BEAKER) 177 mg/dL 70-110 TESTED AT [address] (test cwen=1900) [facility] [address] POCT-GLUCOSE [id number] 00:33:00 Test Item Value Reference Range Comments POC-GLUCOSE METER (BEAKER) 170 mg/dL 70-110 TESTED AT [address] (test ebcr=3791) [place] [address] POCT-GLUCOSE [id number] 22:44:00 Test Item Value Reference Range Comments POC-GLUCOSE METER (BEAKER) 196 mg/dL 70-110 TESTED AT [address] (test ozdt=6223) [place] [address] [id number] 20:43:00 Test Item Value Reference Range Comments PARTIAL THROMBOPLASTIN TIME (BEAKER) (test 45.6 seconds 22.5-36.0 layt=434) POCT-GLUCOSE [id number] 20:37:00 Test Item Value Reference Range Comments POC-GLUCOSE METER (BEAKER) 150 mg/dL 70-110 TESTED AT [address] (test mtvb=9799) [place] [address] POCT-GLUCOSE [id number] 18:41:00 Test Item Value Reference Range Comments POC-GLUCOSE METER (BEAKER) 130 mg/dL 70-110 TESTED AT [address] (test zigq=4324) [place] [address] POCT-GLUCOSE [id number] 17:17:00 Test Item Value Reference Range Comments POC-GLUCOSE METER (BEAKER) 147 mg/dL 70-110 TESTED AT [address] (test gjfs=5750) [place] [address] BLOOD GAS, [id number] 15:54:00 Test Item Value Reference Range Comments PH ARTERIAL (BEAKER) (test stpt=416) 7.39 7.35-7.45 PCO2 ARTERIAL (BEAKER) (test ikqm=139) 42 mmHg 35-45 PO2 ARTERIAL (BEAKER) (test brmb=597) 168 mmHg 80-90 O2 SATURATION ARTERIAL (BEAKER) (test igss=839) 99.1 % 96.0-97.0 HCO3 ARTERIAL (BEAKER) (test usuu=096) 24 mmol/L 21-29 BASE EXCESS ARTERIAL (BEAKER) (test iakz=994) -0.5 mmol/L -2.0-3.0 PATIENT TEMPERATURE (BEAKER) (test bzvs=6512) 38.5 C FIO2 (BEAKER) (test gowu=2020) 90.0 % POCT-GLUCOSE [id number] 15:02:00 Test Item Value Reference Range Comments POC-GLUCOSE METER (BEAKER) 168 mg/dL 70-110 TESTED AT [address] (test qrnl=4802) [place] [address] [id number] 14:53:00 Test Item Value Reference Range Comments CORTISOL, TOTAL (BEAKER) (test vpzm=1039) 29.8 ug/dL 3.7-19.4 VANCOMYCIN LEVEL, [id number] 14:31:00 Test Item Value Reference Range Comments VANCOMYCIN TROUGH (BEAKER) (test gfta=392) 11.3 ug/mL 10.0-20.0 Do not give scheduled vanc dose until level has returned. Hold dose if level is > 20. Thank you!POCT-GLUCOSE [id number] 13:43:00 Test Item Value Reference Range Comments POC-GLUCOSE METER (BEAKER) 187 mg/dL 70-110 TESTED AT [address] (test aimt=6709) [place] [address] SPIN/CONCENTRATION [id number] 12:41:00 Test Item Value Reference Range Comments CONCENTRATION CHARGED (BEAKER) (test okqz=0117) Done POCT-GLUCOSE [id number] 11:58:00 Test Item Value Reference Range Comments POC-GLUCOSE METER (BEAKER) 185 mg/dL 70-110 TESTED AT [address] (test ytiw=8967) [place] [address] POCT-GLUCOSE [id number] 10:00:00 Test Item Value Reference Range Comments POC-GLUCOSE METER (BEAKER) 192 mg/dL 70-110 TESTED AT [address] (test pwvd=2112) [place] [address] BLOOD GAS, [id number] 09:51:00 Test Item Value Reference Range Comments PH ARTERIAL (BEAKER) (test kzqj=998) 7.44 7.35-7.45 PCO2 ARTERIAL (BEAKER) (test coxh=183) 28 mmHg 35-45 PO2 ARTERIAL (BEAKER) (test ojqm=946) 187 mmHg 80-90 O2 SATURATION ARTERIAL (BEAKER) (test vvbo=827) 99.4 % 96.0-97.0 HCO3 ARTERIAL (BEAKER) (test iasg=128) 19 mmol/L 21-29 BASE EXCESS ARTERIAL (BEAKER) (test ysrn=988) -4.0 mmol/L -2.0-3.0 PATIENT TEMPERATURE (BEAKER) (test exlf=0819) 37.0 C FIO2 (BEAKER) (test wcpt=5068) 80.0 % POCT-GLUCOSE [id number] 09:46:00 Test Item Value Reference Range Comments POC-GLUCOSE METER (BEAKER) 161 mg/dL 70-110 TESTED AT [address] (test tsqc=7684) [place] [address] CREATINE KINASE (CK), TOTAL AND [id number] 08:06:00 Test Item Value Reference Range Comments CREATINE KINASE TOTAL (BEAKER) (test wcvq=845) 372 U/L 29-200 CREATINE KINASE-MB (BEAKER) (test xkfv=528) 1.7 ng/mL 0.0-6.6 CREATINE KINASE-MB INDEX (BEAKER) (test xvkr=975) 0.5 % CK-MB Reference Range:<6.7 Normal6.7-10.0 Borderline>10.0 AbnormalTROPONIN [id number] 08:06:00 Test Item Value Reference Range Comments TROPONIN I (BEAKER) (test dpsz=286) 0.02 ng/mL 0.00-0.03 Troponin I (TnI) levels [...] acidosis, acute neurological disease, and persistent tachyarrhythmia.TISSUE [id number] 08:04:00Surgical Pathology Report Case: [id number] Authorizing Provider: Clemente Yepez MD Collected: 01/21/20171827 Ordering Location: [facility] PERIOPERATIVE Received: 01/21/20171838 SERVICES Pathologist: Bennie Peoples MD Specimens: A) [...] TUMOR PRESENT Signing Pathologist Direct Phone Line: [phone] signed by Bennie Peoples MD on 01/25/2017 [...] Nodes (pN): pN0: No regional lymph node [id number] x 3Rectal cancerPart A: Received fresh for [...] section of tumor with deepest invasion; A8: employer relations representative section of tumor; A9 - [...] developed and its performance characteristics determined by [facility], Pathology Laboratory. It has not [...] to perform high complexity clinical laboratory testing.POCT-GLUCOSE [id number] 08:00:00 Test Item Value Reference Range Comments POC-GLUCOSE METER (BEAKER) 293 mg/dL 70-110 TESTED AT [address] (test rggo=7905) [facility] [address] POCT-GLUCOSE [id number] 06:22:00 Test Item Value Reference Range Comments POC-GLUCOSE METER (BEAKER) 220 mg/dL 70-110 TESTED AT [address] (test gdtt=9905) [facility] [address] LACTIC ACID, ARTERIAL, WHOLE [id number] 06:10:00 Test Item Value Reference Range Comments LACTATE BLOOD ARTERIAL (2) 2.4 mmol/L 0.5-2.2 Specimen slightly hemolyzed (BEAKER) (test ujkf=8801) Effective 06/29/2015: Units/Reference Range ChangeNew: 0.5-2.2 mmol/L Previous: 5 -20 mg/dLCALCIUM, [id number] 05:49:00 Test Item Value Reference Range Comments CALCIUM IONIZED (BEAKER) (test yyoh=771) 1.14 mmol/L 1.12-1.27 PH, BLOOD (BEAKER) (test bbra=2144) 7.36 BASIC METABOLIC [id number] 05:30:00 Test Item Value Reference Range Comments SODIUM (BEAKER) (test 139 meq/L 136-145 cxad=896) POTASSIUM (BEAKER) (test 3.6 meq/L 3.5-5.1 soyr=979) CHLORIDE (BEAKER) (test 106 meq/L 98-107 ckgo=852) CO2 (BEAKER) (test 22 meq/L 22-29 gsjt=779) BLOOD UREA NITROGEN 22 mg/dL 7-21 (BEAKER) (test cjxl=300) CREATININE (BEAKER) (test 1.39 mg/dL 0.57-1.25 gcbi=207) GLUCOSE RANDOM (BEAKER) 219 mg/dL 70-105 (test mnjj=158) CALCIUM (BEAKER) (test 8.9 mg/dL 8.4-10.2 xxks=998) EGFR (BEAKER) (test 52 mL/min/1.73 sq m ESTIMATED GFR IS NOT wcxi=5504) ACCURATE CREATININE CLEARANCE IN PREDICTING GLOMERULAR FILTRATION RATE. ESTIMATED GFR IS NOT APPLICABLE FOR DIALYSIS PATIENTS. [id number] 05:24:00 Test Item Value Reference Range Comments PHOSPHORUS (BEAKER) (test lmux=208) 3.4 mg/dL 2.3-4.7 [id number] 05:24:00 Test Item Value Reference Range Comments MAGNESIUM (BEAKER) (test izrk=387) 1.7 mg/dL 1.6-2.6 RAD, CHEST, 1 VIEW, NON [id number] 05:08:00Reason for exam:-> IntubatedShould this be performed [...] Verified Date/Time: 01/25/2017 05:08: 59 Reading Location: [address] Body Reading Room CBC W/PLT COUNT & AUTO [id number] 04:52:00 Test Item Value Reference Range Comments WHITE BLOOD CELL COUNT (BEAKER) (test iglv=304) 5.3 K/ L 3.5-10.5 RED BLOOD CELL COUNT (BEAKER) (test imqb=775) 4.82 M/ L 4.63-6.08 HEMOGLOBIN (BEAKER) (test sqya=605) 14.1 GM/DL 13.7-17.5 HEMATOCRIT (BEAKER) (test zgpa=058) 42.6 % 40.1-51.0 MEAN CORPUSCULAR VOLUME (BEAKER) (test alcp=533) 88.4 fL 79.0-92.2 MEAN CORPUSCULAR HEMOGLOBIN (BEAKER) (test 29.3 pg 25.7-32.2 ljqq=166) MEAN CORPUSCULAR HEMOGLOBIN CONC (BEAKER) (test 33.1 GM/DL 32.3-36.5 posj=006) RED CELL DISTRIBUTION WIDTH (BEAKER) (test 13.8 % 11.6-14.4 vzbm=657) PLATELET COUNT (BEAKER) (test vxbw=641) 180 K/CU MM 150-450 MEAN PLATELET VOLUME (BEAKER) (test cjcg=797) 10.1 fL 9.4-12.4 NUCLEATED RED BLOOD CELLS (BEAKER) (test 0 /100 WBC 0-0 sakq=903) NEUTROPHILS RELATIVE PERCENT (BEAKER) (test 79 % hcpv=437) LYMPHOCYTES RELATIVE PERCENT (BEAKER) (test 9 % jbln=077) MONOCYTES RELATIVE PERCENT (BEAKER) (test 11 % lxej=873) EOSINOPHILS RELATIVE PERCENT (BEAKER) (test 0 % gmxs=259) BASOPHILS RELATIVE PERCENT (BEAKER) (test 0 % ozhk=135) NEUTROPHILS ABSOLUTE COUNT (BEAKER) (test 4.20 K/ L 1.78-5.38 tped=069) LYMPHOCYTES ABSOLUTE COUNT (BEAKER) (test 0.47 K/ L 1.32-3.57 wafg=403) MONOCYTES ABSOLUTE COUNT (BEAKER) (test 0.60 K/ L 0.30-0.82 ldzt=303) EOSINOPHILS ABSOLUTE COUNT (BEAKER) (test 0.00 K/ L 0.04-0.54 jrqz=093) BASOPHILS ABSOLUTE COUNT (BEAKER) (test 0.02 K/ L 0.01-0.08 iomo=001) IMMATURE GRANULOCYTES-RELATIVE PERCENT (BEAKER) 1 % 0-1 (test bcbf=9476) POCT-GLUCOSE [id number] 04:18:00 Test Item Value Reference Range Comments POC-GLUCOSE METER (BEAKER) 198 mg/dL 70-110 TESTED AT [address] (test erws=8193) [place] [id number] POCT-GLUCOSE [id number] 02:58:00 Test Item Value Reference Range Comments POC-GLUCOSE METER (BEAKER) 227 mg/dL 70-110 TESTED AT [address] (test stuz=3746) [place] [address] POCT-GLUCOSE [id number] 02:58:00 Test Item Value Reference Range Comments POC-GLUCOSE METER (BEAKER) 245 mg/dL 70-110 TESTED AT [address] (test grec=1833) [place] [address] BLOOD GAS, [id number] 00:48:00 Test Item Value Reference Range Comments PH ARTERIAL (BEAKER) (test vuma=196) 7.39 7.35-7.45 PCO2 ARTERIAL (BEAKER) (test ebdj=230) 37 mmHg 35-45 PO2 ARTERIAL (BEAKER) (test hubb=919) 76 mmHg 80-90 O2 SATURATION ARTERIAL (BEAKER) (test ksis=604) 95.3 % 96.0-97.0 HCO3 ARTERIAL (BEAKER) (test hhfw=923) 22 mmol/L 21-29 BASE EXCESS ARTERIAL (BEAKER) (test ihqc=530) -2.5 mmol/L -2.0-3.0 PATIENT TEMPERATURE (BEAKER) (test toxg=2652) 36.9 C FIO2 (BEAKER) (test huvx=7528) 70.0 % POCT-GLUCOSE [id number] 23:57:00 Test Item Value Reference Range Comments POC-GLUCOSE METER (BEAKER) 286 mg/dL 70-110 TESTED AT [address] (test xexz=1353) [place] [address] POCT-GLUCOSE [id number] 23:57:00 Test Item Value Reference Range Comments POC-GLUCOSE METER (BEAKER) 276 mg/dL 70-110 TESTED AT [address] (test dabu=7440) [place] [address] CBC W/PLT COUNT & AUTO [id number] 22:13:00 Test Item Value Reference Range Comments WHITE BLOOD CELL COUNT (BEAKER) (test ezlc=553) 5.1 K/ L 3.5-10.5 RED BLOOD CELL COUNT (BEAKER) (test frsi=968) 4.89 M/ L 4.63-6.08 HEMOGLOBIN (BEAKER) (test qmvo=222) 14.4 GM/DL 13.7-17.5 HEMATOCRIT (BEAKER) (test hfbh=967) 44.6 % 40.1-51.0 MEAN CORPUSCULAR VOLUME (BEAKER) (test hiqw=287) 91.2 fL 79.0-92.2 MEAN CORPUSCULAR HEMOGLOBIN (BEAKER) (test 29.4 pg 25.7-32.2 cild=576) MEAN CORPUSCULAR HEMOGLOBIN CONC (BEAKER) (test 32.3 GM/DL 32.3-36.5 fjva=232) RED CELL DISTRIBUTION WIDTH (BEAKER) (test 13.6 % 11.6-14.4 eajj=807) PLATELET COUNT (BEAKER) (test wiqn=249) 192 K/CU MM 150-450 MEAN PLATELET VOLUME (BEAKER) (test qmcw=963) 9.4 fL 9.4-12.4 NUCLEATED RED BLOOD CELLS (BEAKER) (test 1 /100 WBC 0-0 zsbg=885) IMMATURE GRANULOCYTES-RELATIVE PERCENT (BEAKER) 2 % 0-1 (test tvwy=9378) (MANUAL DIFFERENTIAL)2017-01-24 22:13:00 Test Item Value Reference Range Comments NEUTROPHILS - REL (DIFF) (BEAKER) (test oysi=5180) 18 % LYMPHOCYTES - REL (DIFF) (BEAKER) (test aglt=5520) 27 % MONOCYTES - REL (DIFF) (BEAKER) (test jtpw=3970) 11 % EOSINOPHILS - REL (DIFF) (BEAKER) (test xruu=4530) 2 % METAMYELOCYTES-REL (DIFF) (BEAKER) (test aupi=048) 3 % 0-0 MYELOCYTES-REL (DIFF) (BEAKER) (test psee=7790) 2 % 0-0 PROMYELOCYTES-REL (DIFF) (BEAKER) (test oidy=169) 1 % 0-0 BANDS - REL (DIFF) (BEAKER) (test smbo=8783) 36 % 0-10 NEUTROPHILS - ABS (DIFF) (BEAKER) (test lbry=8523) 0.92 K/ L 1.80-8.00 LYMPHOCYTES - ABS (DIFF) (BEAKER) (test pcah=1640) 1.38 K/ L 1.48-4.50 MONOCYTES - ABS (DIFF) (BEAKER) (test bwvv=5874) 0.56 K/ L 0.00-1.30 EOSINOPHILS - ABS (DIFF) (BEAKER) (test carx=2245) 0.10 K/ L 0.00-0.50 METAMYELOCTYES - ABS (DIFF) (BEAKER) (test 0.15 K/ L 0.00-0.00 ffot=311) PROMYELOCYTES - ABS (DIFF) (BEAKER) (test 0.05 K/ L 0.00-0.00 xsyp=095) BANDS-ABS (DIFF) (BEAKER) (test ubye=2443) 1.8 K/ L 0.0-0.8 MYELOCYTES-ABS (DIFF) (BEAKER) (test nahs=1747) 0.10 K/ L 0.00-0.00 TOTAL COUNTED (BEAKER) (test sidj=5049) 100 BANDS + SEGMENTED NEUTROPHILS (BEAKER) (test 2.75 ifuq=8382) DOHLE BODIES (BEAKER) (test kbtf=788) Present VACUOLATED NEUTROPHILS (BEAKER) (test mjwl=953) Present GIANT PLATELETS (BEAKER) (test dvhl=402) Present ANISOCYTOSIS (BEAKER) (test xgrs=045) 1+ few MICROCYTES (BEAKER) (test rjdv=172) 1+ few [id number] 21:56:00 Test Item Value Reference Range Comments PHOSPHORUS (BEAKER) (test fdps=782) 4.1 mg/dL 2.3-4.7 [id number] 21:56:00 Test Item Value Reference Range Comments MAGNESIUM (BEAKER) (test piij=956) 1.3 mg/dL 1.6-2.6 COMPREHENSIVE METABOLIC [id number] 21:56:00 Test Item Value Reference Range Comments TOTAL PROTEIN (BEAKER) 5.2 gm/dL 6.0-8.3 (test jkwg=186) ALBUMIN (BEAKER) (test 3.1 g/dL 3.5-5.0 nfkj=6656) ALKALINE PHOSPHATASE 72 U/L 40-150 (BEAKER) (test tlro=460) BILIRUBIN TOTAL (BEAKER) 1.5 mg/dL 0.2-1.2 (test yput=744) SODIUM (BEAKER) (test 136 meq/L 136-145 dfhm=409) POTASSIUM (BEAKER) (test 4.1 meq/L 3.5-5.1 johi=758) CHLORIDE (BEAKER) (test 104 meq/L 98-107 nkpy=783) CO2 (BEAKER) (test 20 meq/L 22-29 wxbe=098) BLOOD UREA NITROGEN 20 mg/dL 7-21 (BEAKER) (test sric=514) CREATININE (BEAKER) (test 1.52 mg/dL 0.57-1.25 eobu=539) GLUCOSE RANDOM (BEAKER) 283 mg/dL 70-105 (test wpip=946) CALCIUM (BEAKER) (test 7.6 mg/dL 8.4-10.2 efce=679) AST (SGOT) (BEAKER) (test 16 U/L 5-34 sdeg=642) ALT (SGPT) (BEAKER) (test 12 U/L 6-55 gegd=810) EGFR (BEAKER) (test 47 mL/min/1.73 sq m ESTIMATED GFR IS NOT qzgc=9000) ACCURATE CREATININE CLEARANCE IN PREDICTING GLOMERULAR FILTRATION RATE. ESTIMATED GFR IS NOT APPLICABLE FOR DIALYSIS PATIENTS. LACTIC ACID, ARTERIAL, WHOLE [id number] 21:50:00 Test Item Value Reference Range Comments LACTATE BLOOD ARTERIAL (2) 1.8 mmol/L 0.5-2.2 Specimen slightly hemolyzed (BEAKER) (test kljf=9754) Effective 06/29/2015: Units/Reference Range ChangeNew: 0.5-2.2 mmol/L Previous: 5 -20 mg/dLBLOOD GAS, [id number] 21:46:00 Test Item Value Reference Range Comments PH ARTERIAL (BEAKER) (test bylq=400) 7.20 7.35-7.45 PCO2 ARTERIAL (BEAKER) (test bywb=961) 52 mmHg 35-45 PO2 ARTERIAL (BEAKER) (test cxtv=534) 181 mmHg 80-90 O2 SATURATION ARTERIAL (BEAKER) (test okar=784) 98.9 % 96.0-97.0 HCO3 ARTERIAL (BEAKER) (test kupk=742) 20 mmol/L 21-29 BASE EXCESS ARTERIAL (BEAKER) (test jisd=473) -8.1 mmol/L -2.0-3.0 PATIENT TEMPERATURE (BEAKER) (test bhxy=1395) 38.1 C FIO2 (BEAKER) (test dvxr=5785) 100.0 % SODIUM NA-STAT [id number] 19:24:00 Test Item Value Reference Range Comments SODIUM (BEAKER) (test tmbm=569) 133 meq/L 135-148 HGB/HCT (H&H) - STAT [id number] 19:24:00 Test Item Value Reference Range Comments HEMOGLOBIN (BEAKER) (test wdzp=449) 18.0 g/dL 13.0-16.8 HEMATOCRIT (BEAKER) (test umex=648) 53.0 % 40.0-50.0 BLOOD GAS, [id number] 19:23:00 Test Item Value Reference Range Comments PH ARTERIAL (BEAKER) (test bdfa=827) 7.19 7.35-7.45 PCO2 ARTERIAL (BEAKER) (test pgta=099) 52 mmHg 35-45 PO2 ARTERIAL (BEAKER) (test ztom=270) 196 mmHg 80-90 O2 SATURATION ARTERIAL (BEAKER) (test ddmu=536) 99.0 % 96.0-97.0 HCO3 ARTERIAL (BEAKER) (test bynx=317) 19 mmol/L 21-29 BASE EXCESS ARTERIAL (BEAKER) (test kfel=927) -9.3 mmol/L -2.0-3.0 PATIENT TEMPERATURE (BEAKER) (test maac=2581) 37.0 C GLUCOSE-STAT [id number] 19:23:00 Test Item Value Reference Range Comments GLUCOSE RANDOM (BEAKER) (test jmza=528) 280 mg/dL 70-110 POTASSIUM-STAT [id number] 19:20:00 Test Item Value Reference Range Comments POTASSIUM (BEAKER) (test hfuw=182) 4.1 meq/L 3.6-5.5 POCT-GLUCOSE [id number] 17:18:00 Test Item Value Reference Range Comments POC-GLUCOSE METER (BEAKER) 202 mg/dL 70-110 TESTED AT [facility] [address] [facility] (test ncrs=4270) [place] [address] RAD, CHEST, 1 VIEW, NON [id number] 17:11:00Reason for exam:->central line placementShould this be [...] MDReport Verified Date/Time: 01/24/2017 17:11:16 Reading Location: [facility] Reading Room [id number] 16:30:00 Test Item Value Reference Range Comments PHOSPHORUS (BEAKER) (test wxut=041) 1.6 mg/dL 2.3-4.7 Add-on to specimenAdd on to sent specimenAdd-on to sent [id number] 16:30:00 Test Item Value Reference Range Comments MAGNESIUM (BEAKER) (test kcst=469) 1.4 mg/dL 1.6-2.6 Add-on to specimenAdd on to sent specimenAdd-on to sent specimenBASIC METABOLIC [id number] 16:30:00 Test Item Value Reference Range Comments SODIUM (BEAKER) (test 134 meq/L 136-145 oykr=048) POTASSIUM (BEAKER) (test 3.9 meq/L 3.5-5.1 vuyi=951) CHLORIDE (BEAKER) (test 102 meq/L 98-107 yegw=509) CO2 (BEAKER) (test 19 meq/L 22-29 ygwf=136) BLOOD UREA NITROGEN 18 mg/dL 7-21 (BEAKER) (test jooq=078) CREATININE (BEAKER) (test 0.89 mg/dL 0.57-1.25 gahc=169) GLUCOSE RANDOM (BEAKER) 270 mg/dL 70-105 (test sknl=871) CALCIUM (BEAKER) (test 8.5 mg/dL 8.4-10.2 okvq=008) EGFR (BEAKER) (test 88 mL/min/1.73 sq m ESTIMATED GFR IS NOT hfeb=4598) ACCURATE CREATININE CLEARANCE IN PREDICTING GLOMERULAR FILTRATION RATE. ESTIMATED GFR IS NOT APPLICABLE FOR DIALYSIS PATIENTS. Add-on to specimenAdd on to sent specimenAdd-on to sent specimenLACTIC ACID, ARTERIAL, WHOLE [id number] 16:25:00 Test Item Value Reference Range Comments LACTATE BLOOD ARTERIAL (2) 1.5 mmol/L 0.5-2.2 Specimen slightly hemolyzed (ZINA) (test mwik=5449) Effective 06/29/2015: Units/Reference Range ChangeNew: 0.5-2.2 mmol/L Previous: 5 -20 mg/dLPlease add on to specimen sentCT, CHEST, WITH [id number] 16:23: 00FINAL REPORT CT of the Chest, [...] Forbes MDReport Verified Date/Time: 16:23:54 Reading Location: [facility] C013Y CT Body Reading Room CT, [id number] 16:23:00Please administer with rectal contrast.FINAL REPORT CT [...] MDReport Verified Date/Time: 01/24/2017 16:23:54 Reading Location: [facility] C013Y CT Body Reading Room CBC (HEMOGRAM ONLY)2017-01-24 16:16:00 Test Item Value Reference Range Comments WHITE BLOOD CELL COUNT (BEAKER) (test zqgy=666) 2.6 K/ L 3.5-10.5 RED BLOOD CELL COUNT (BEAKER) (test ltsn=290) 5.59 M/ L 4.63-6.08 HEMOGLOBIN (BEAKER) (test nwgu=345) 16.5 GM/DL 13.7-17.5 HEMATOCRIT (BEAKER) (test eimw=759) 49.0 % 40.1-51.0 MEAN CORPUSCULAR VOLUME (BEAKER) (test ioyx=260) 87.7 fL 79.0-92.2 MEAN CORPUSCULAR HEMOGLOBIN (BEAKER) (test 29.5 pg 25.7-32.2 aeor=216) MEAN CORPUSCULAR HEMOGLOBIN CONC (BEAKER) (test 33.7 GM/DL 32.3-36.5 kmli=926) RED CELL DISTRIBUTION WIDTH (BEAKER) (test 13.4 % 11.6-14.4 zdfj=832) PLATELET COUNT (BEAKER) (test ohgf=470) 212 K/CU MM 150-450 MEAN PLATELET VOLUME (BEAKER) (test fwty=230) 9.5 fL 9.4-12.4 NUCLEATED RED BLOOD CELLS (BEAKER) (test 0 /100 WBC 0-0 njrb=535) RAD, ABDOMEN/KUB, 1 VIEW [id number] 15:22:00Shoot highReason for exam:->OG tube insertedFINAL REPORT [...] mass or calcification. No fracture. Signed: Galileo Orellanaeport Verified Date/Time: 01/24/2017 15:22:17 Reading Location: [facility] Radiology Reading Room Electronically signed by: GALILEO ORELLANAon 01/24/2017 03:22 PMRAD, CHEST, 1 VIEW, NON [id number] 14:28: 00Reason for exam:->ET TubeShould this be [...] edema. Subcutaneous emphysema is unchanged. Signed: Galileo Orellanaeport Verified Date/Time: 01/24/2017 14:28:19 Reading Location: [facility] Radiology Reading Room RAD, CHEST, 1 VIEW, NON [id number] 13:08:00Reason for exam:->increased work of breathing, feverShould [...] exam. No acute cardiopulmonary abnormality. Signed: Terell Koenig MDReport Verified Date/Time : 01/24/2017 13:08:51 Reading Location: [facility] Mammo Reading Room BLOOD GAS , [id number] 12:42:00 Test Item Value Reference Range Comments PH ARTERIAL (BEAKER) (test fdme=856) 7.49 7.35-7.45 PCO2 ARTERIAL (BEAKER) (test tpvn=690) 28 mmHg 35-45 PO2 ARTERIAL (BEAKER) (test uvsa=261) 97 mmHg 80-90 O2 SATURATION ARTERIAL (BEAKER) (test pmqh=738) 97.5 % 96.0-97.0 HCO3 ARTERIAL (BEAKER) (test ayoi=121) 20 mmol/L 21-29 BASE EXCESS ARTERIAL (BEAKER) (test fahq=714) -0.4 mmol/L -2.0-3.0 PATIENT TEMPERATURE (BEAKER) (test iwuk=0117) 38.8 C FIO2 (BEAKER) (test ugpo=3173) 21.0 % POCT-GLUCOSE [id number] 12:28:00 Test Item Value Reference Range Comments POC-GLUCOSE METER (BEAKER) 101 mg/dL 70-110 TESTED AT [address] (test lrub=3626) [facility] [address] POCT-GLUCOSE [id number] 11:51:00 Test Item Value Reference Range Comments POC-GLUCOSE METER (BEAKER) 153 mg/dL 70-110 TESTED AT [address] (test sbqt=6627) [facility] [address] POCT-GLUCOSE [id number] 10:36:00 Test Item Value Reference Range Comments POC-GLUCOSE METER (BEAKER) 145 mg/dL 70-110 TESTED AT [address] (test bgmg=2443) [facility] [address] POCT-GLUCOSE [id number] 09:46:00 Test Item Value Reference Range Comments POC-GLUCOSE METER (BEAKER) 132 mg/dL 70-110 TESTED AT [address] (test thkt=6600) [facility] [address] POCT-GLUCOSE [id number] 08:38:00 Test Item Value Reference Range Comments POC-GLUCOSE METER (BEAKER) 108 mg/dL 70-110 TESTED AT [facility] [address] [facility] (test gazp=0821) [facility] [address] POCT-GLUCOSE [id number] 06:41:00 Test Item Value Reference Range Comments POC-GLUCOSE METER (BEAKER) 132 mg/dL 70-110 TESTED AT [facility] [address] [facility] [facility] (test avmc=7998) [facility] [address] CALCIUM, [id number] 06:36:00 Test Item Value Reference Range Comments CALCIUM IONIZED (BEAKER) (test scbi=666) 1.11 mmol/L 1.12-1.27 PH, BLOOD (BEAKER) (test tmvn=2885) 7.45 [id number] 05:35:00 Test Item Value Reference Range Comments PHOSPHORUS (BEAKER) (test dqdu=818) 1.4 mg/dL 2.3-4.7 [id number] 04:55:00 Test Item Value Reference Range Comments THYROID STIMULATING HORMONE (BEAKER) (test 1.39 uIU/mL 0.35-4.94 pnsn=877) [id number] 04:38:00 Test Item Value Reference Range Comments MAGNESIUM (BEAKER) (test dtce=295) 1.8 mg/dL 1.6-2.6 BASIC METABOLIC [id number] 04:38:00 Test Item Value Reference Range Comments SODIUM (BEAKER) (test 137 meq/L 136-145 kevt=808) POTASSIUM (BEAKER) (test 3.6 meq/L 3.5-5.1 ijwl=060) CHLORIDE (BEAKER) (test 103 meq/L 98-107 blbf=930) CO2 (BEAKER) (test 27 meq/L 22-29 jwql=504) BLOOD UREA NITROGEN 14 mg/dL 7-21 (BEAKER) (test spxd=973) CREATININE (BEAKER) (test 0.90 mg/dL 0.57-1.25 jdkr=366) GLUCOSE RANDOM (BEAKER) 172 mg/dL 70-105 (test yuii=394) CALCIUM (BEAKER) (test 8.9 mg/dL 8.4-10.2 altz=964) EGFR (BEAKER) (test 87 mL/min/1.73 sq m ESTIMATED GFR IS NOT ayfk=5501) ACCURATE CREATININE CLEARANCE IN PREDICTING GLOMERULAR FILTRATION RATE. ESTIMATED GFR IS NOT APPLICABLE FOR DIALYSIS PATIENTS. CBC (HEMOGRAM ONLY)2017-01-24 04:23:00 Test Item Value Reference Range Comments WHITE BLOOD CELL COUNT (BEAKER) (test yipn=487) 8.6 K/ L 3.5-10.5 RED BLOOD CELL COUNT (BEAKER) (test aidt=893) 4.61 M/ L 4.63-6.08 HEMOGLOBIN (BEAKER) (test cpmn=461) 13.5 GM/DL 13.7-17.5 HEMATOCRIT (BEAKER) (test hjnv=421) 40.7 % 40.1-51.0 MEAN CORPUSCULAR VOLUME (BEAKER) (test znkm=496) 88.3 fL 79.0-92.2 MEAN CORPUSCULAR HEMOGLOBIN (BEAKER) (test 29.3 pg 25.7-32.2 bokt=105) MEAN CORPUSCULAR HEMOGLOBIN CONC (BEAKER) (test 33.2 GM/DL 32.3-36.5 mivq=347) RED CELL DISTRIBUTION WIDTH (BEAKER) (test 13.4 % 11.6-14.4 cnsz=854) PLATELET COUNT (BEAKER) (test yfsp=695) 165 K/CU MM 150-450 MEAN PLATELET VOLUME (BEAKER) (test irat=915) 9.3 fL 9.4-12.4 NUCLEATED RED BLOOD CELLS (BEAKER) (test 0 /100 WBC 0-0 sagm=908) POCT-GLUCOSE [id number] 04:14:00 Test Item Value Reference Range Comments POC-GLUCOSE METER (BEAKER) 155 mg/dL 70-110 TESTED AT [facility] [address] [place] [address] (test tqin=8993) [facility] [address] URINALYSIS W/ REFLEX URINE [id number] 03:51:00 Test Item Value Reference Range Comments COLOR (BEAKER) (test ngrv=924) Yellow CLARITY (BEAKER) (test secs=274) Clear SPECIFIC GRAVITY UA (BEAKER) (test bcvn=342) 1.011 1.001-1.035 PH UA (BEAKER) (test pgkv=981) 7.5 5.0-8.0 PROTEIN UA (BEAKER) (test oenc=773) 10 mg/dL Negative GLUCOSE UA (BEAKER) (test ottz=146) 150 mg/dL Negative KETONES UA (BEAKER) (test bknm=461) 20 mg/dL Negative BILIRUBIN UA (BEAKER) (test gdsk=500) Negative Negative BLOOD UA (BEAKER) (test kfwy=314) Small Negative NITRITE UA (BEAKER) (test lyif=507) Negative Negative LEUKOCYTE ESTERASE UA (BEAKER) (test ecwm=193) Negative Negative UROBILINOGEN UA (BEAKER) (test sgsc=265) 0.2 mg/dL 0.2-1.0 RBC UA (BEAKER) (test pgpt=788) 4 /HPF WBC UA (BEAKER) (test ykdf=272) 2 /HPF BACTERIA (BEAKER) (test zqbx=824) Rare MUCUS (BEAKER) (test grrr=5045) Rare SOURCE(BEAKER) (test bsvd=8574) POCT-GLUCOSE [id number] 02:09:00 Test Item Value Reference Range Comments POC-GLUCOSE METER (BEAKER) 166 mg/dL 70-110 TESTED AT [address] (test kete=8458) [place] [address] POCT-GLUCOSE [id number] 00:14:00 Test Item Value Reference Range Comments POC-GLUCOSE METER (BEAKER) 144 mg/dL 70-110 TESTED AT [address] (test iwlj=0289) [place] [id number] POCT-GLUCOSE [id number] 22:22:00 Test Item Value Reference Range Comments POC-GLUCOSE METER (BEAKER) 133 mg/dL 70-110 TESTED AT [address] (test hrvo=0417) [place] [id number] POCT-GLUCOSE [id number] 22:22:00 Test Item Value Reference Range Comments POC-GLUCOSE METER (BEAKER) 138 mg/dL 70-110 TESTED AT [address] (test wces=8497) [place] [address] POCT-GLUCOSE [id number] 21:18:00 Test Item Value Reference Range Comments POC-GLUCOSE METER (BEAKER) 125 mg/dL 70-110 TESTED AT [address] (test sjmt=3911) [place] [address] RAD, CHEST, 1 VIEW, NON [id number] 21:07:00Reason for exam:->eval for source of infectionShould [...] Verified Date /Time: 01/23/2017 21:07:52 Reading Location: [address] Reading Room POCT-GLUCOSE [id number] 19:36:00 Test Item Value Reference Range Comments POC-GLUCOSE METER (BEAKER) 148 mg/dL 70-110 TESTED AT [address] (test oeih=7098) [facility] [address] POCT-GLUCOSE [id number] 18:04:00 Test Item Value Reference Range Comments POC-GLUCOSE METER (BEAKER) 170 mg/dL 70-110 TESTED AT [address] (test hhye=3994) [facility] [address] POCT-GLUCOSE [id number] 17:38:00 Test Item Value Reference Range Comments POC-GLUCOSE METER (BEAKER) 184 mg/dL 70-110 TESTED AT [address] (test ibhy=2034) [facility] [address] POCT-GLUCOSE [id number] 16:08:00 Test Item Value Reference Range Comments POC-GLUCOSE METER (BEAKER) 199 mg/dL 70-110 TESTED AT [address] (test sbry=9494) [facility] [address] POCT-GLUCOSE [id number] 16:08:00 Test Item Value Reference Range Comments POC-GLUCOSE METER (BEAKER) 304 mg/dL 70-110 Notified CATE NICHOLS/TESTED AT [facility] (test ilwd=1937) [address] [place] [address] POCT-GLUCOSE [id number] 15:00:00 Test Item Value Reference Range Comments POC-GLUCOSE METER (BEAKER) 234 mg/dL 70-110 TESTED AT [address] (test pcwz=5638) [facility] [address] POCT-GLUCOSE [id number] 13:41:00 Test Item Value Reference Range Comments POC-GLUCOSE METER (BEAKER) 278 mg/dL 70-110 TESTED AT [address] (test tsmy=3371) [place] [address] HEMOGLOBIN [id number] 13:38:00 Test Item Value Reference Range Comments HEMOGLOBIN A1C (BEAKER) (test smxx=794) 8.2 % 4.3-6.1 POCT-GLUCOSE [id number] 11:17:00 Test Item Value Reference Range Comments POC-GLUCOSE METER (BEAKER) 301 mg/dL 70-110 TESTED AT [address] (test altv=6531) [place] [id number] POCT-GLUCOSE [id number] 08:37:00 Test Item Value Reference Range Comments POC-GLUCOSE METER (BEAKER) 298 mg/dL 70-110 TESTED AT [address] (test oxsn=0194) [facility] [address] POCT-GLUCOSE [id number] 08:19:00 Test Item Value Reference Range Comments POC-GLUCOSE METER (BEAKER) 253 mg/dL 70-110 TESTED AT [address] (test aivd=9452) [facility] [address] POCT-GLUCOSE [id number] 07:05:00 Test Item Value Reference Range Comments POC-GLUCOSE METER (BEAKER) 250 mg/dL 70-110 TESTED AT [address] (test whde=6675) [facility] [address] POCT-GLUCOSE [id number] 06:09:00 Test Item Value Reference Range Comments POC-GLUCOSE METER (BEAKER) 227 mg/dL 70-110 TESTED AT [address] (test xgdk=7055) [facility] [address] POCT-GLUCOSE [id number] 06:08:00 Test Item Value Reference Range Comments POC-GLUCOSE METER (BEAKER) 286 mg/dL 70-110 TESTED AT [address] (test qxyn=3968) [facility] [address] POCT-GLUCOSE [id number] 06:08:00 Test Item Value Reference Range Comments POC-GLUCOSE METER (BEAKER) 266 mg/dL 70-110 TESTED AT [address] (test lmkj=2408) [facility] [address] BLOOD GAS, [id number] 03:37:00 Test Item Value Reference Range Comments PH VENOUS (BEAKER) (test qbnq=142) 7.40 7.32-7.42 PCO2 VENOUS (BEAKER) (test jmhw=252) 50 mmHg 41-51 PO2 VENOUS (BEAKER) (test haxu=534) 18 mmHg 25-40 O2 SATURATION VENOUS (BEAKER) (test yvtm=060) 26.6 % 40.0-70.0 HCO3 VENOUS (BEAKER) (test aqhs=228) 30 mmol/L 21-29 BASE EXCESS VENOUS (BEAKER) (test piuy=518) 4.3 mmol/L -2.0-3.0 PATIENT TEMPERATURE (BEAKER) (test xphw=2428) 37.0 C FIO2 (BEAKER) (test otpw=1619) 100.0 % CALCIUM, [id number] 03:11:00 Test Item Value Reference Range Comments CALCIUM IONIZED (BEAKER) (test bsjd=091) 1.10 mmol/L 1.12-1.27 PH, BLOOD (BEAKER) (test umsc=3313) 7.41 POCT-GLUCOSE [id number] 03:03:00 Test Item Value Reference Range Comments POC-GLUCOSE METER (BEAKER) 229 mg/dL 70-110 TESTED AT [address] (test bdqm=4378) [place] [address] [id number] 02:30:00 Test Item Value Reference Range Comments MAGNESIUM (BEAKER) (test 2.1 mg/dL 1.6-2.6 Specimen slightly hemolyzed bhum=528) [id number] 02:30:00 Test Item Value Reference Range Comments PHOSPHORUS (BEAKER) (test 1.8 mg/dL 2.3-4.7 Specimen slightly hemolyzed uxkx=114) BASIC METABOLIC [id number] 02:30:00 Test Item Value Reference Range Comments SODIUM (BEAKER) (test 137 meq/L 136-145 lklu=168) POTASSIUM (BEAKER) (test 4.7 meq/L 3.5-5.1 Specimen slightly buxc=647) hemolyzed CHLORIDE (BEAKER) (test 102 meq/L 98-107 gvps=999) CO2 (BEAKER) (test 26 meq/L 22-29 urqx=617) BLOOD UREA NITROGEN 21 mg/dL 7-21 (BEAKER) (test xrsk=533) CREATININE (BEAKER) (test 1.29 mg/dL 0.57-1.25 Specimen slightly lphb=078) hemolyzed GLUCOSE RANDOM (BEAKER) 330 mg/dL 70-105 (test zaix=194) CALCIUM (BEAKER) (test 8.7 mg/dL 8.4-10.2 ibjh=767) EGFR (BEAKER) (test 57 mL/min/1.73 sq m ESTIMATED GFR IS NOT dxsi=8810) ACCURATE CREATININE CLEARANCE IN PREDICTING GLOMERULAR FILTRATION RATE. ESTIMATED GFR IS NOT APPLICABLE FOR DIALYSIS PATIENTS. CBC (HEMOGRAM ONLY)2017-01-23 02:08:00 Test Item Value Reference Range Comments WHITE BLOOD CELL COUNT (BEAKER) (test mlvt=952) 11.3 K/ L 3.5-10.5 RED BLOOD CELL COUNT (BEAKER) (test xtcu=883) 4.76 M/ L 4.63-6.08 HEMOGLOBIN (BEAKER) (test zvrg=454) 14.1 GM/DL 13.7-17.5 HEMATOCRIT (BEAKER) (test vdiz=951) 41.9 % 40.1-51.0 MEAN CORPUSCULAR VOLUME (BEAKER) (test nbyv=547) 88.0 fL 79.0-92.2 MEAN CORPUSCULAR HEMOGLOBIN (BEAKER) (test 29.6 pg 25.7-32.2 ufnw=647) MEAN CORPUSCULAR HEMOGLOBIN CONC (BEAKER) (test 33.7 GM/DL 32.3-36.5 estq=322) RED CELL DISTRIBUTION WIDTH (BEAKER) (test 13.4 % 11.6-14.4 uamp=053) PLATELET COUNT (BEAKER) (test ydno=210) 176 K/CU MM 150-450 MEAN PLATELET VOLUME (BEAKER) (test mvnz=051) 10.0 fL 9.4-12.4 NUCLEATED RED BLOOD CELLS (BEAKER) (test 0 /100 WBC 0-0 jrpc=052) POCT-GLUCOSE [id number] 01:38:00 Test Item Value Reference Range Comments POC-GLUCOSE METER (BEAKER) 232 mg/dL 70-110 TESTED AT [address] (test eelu=3741) [facility] [address] POCT-GLUCOSE [id number] 20:52:00 Test Item Value Reference Range Comments POC-GLUCOSE METER (BEAKER) 327 mg/dL 70-110 TESTED AT [address] (test chkj=8305) [facility] [address] POCT-GLUCOSE [id number] 18:46:00 Test Item Value Reference Range Comments POC-GLUCOSE METER (BEAKER) 321 mg/dL 70-110 TESTED AT [address] (test htdx=9126) [facility] [address] POCT-GLUCOSE [id number] 15:24:00 Test Item Value Reference Range Comments POC-GLUCOSE METER (BEAKER) 349 mg/dL 70-110 TESTED AT [address] (test ljrh=8586) [facility] [address] POCT-GLUCOSE [id number] 14:31:00 Test Item Value Reference Range Comments POC-GLUCOSE METER (BEAKER) 344 mg/dL 70-110 TESTED AT [address] (test kqyr=1463) [facility] [address] POCT-GLUCOSE [id number] 12:31:00 Test Item Value Reference Range Comments POC-GLUCOSE METER (BEAKER) 346 mg/dL 70-110 TESTED AT [address] (test bgaw=3111) [place] [id number] 11:01:00 Test Item Value Reference Range Comments PHOSPHORUS (BEAKER) (test wkhk=071) 2.9 mg/dL 2.3-4.7 [id number] 11:01:00 Test Item Value Reference Range Comments MAGNESIUM (BEAKER) (test meyl=665) 1.5 mg/dL 1.6-2.6 BASIC METABOLIC [id number] 11:01:00 Test Item Value Reference Range Comments SODIUM (BEAKER) (test 136 meq/L 136-145 cjzt=668) POTASSIUM (BEAKER) (test 4.5 meq/L 3.5-5.1 wzyr=942) CHLORIDE (BEAKER) (test 104 meq/L 98-107 dwta=037) CO2 (BEAKER) (test 19 meq/L 22-29 mvsd=427) BLOOD UREA NITROGEN 15 mg/dL 7-21 (BEAKER) (test ckss=781) CREATININE (BEAKER) (test 1.22 mg/dL 0.57-1.25 qmot=803) GLUCOSE RANDOM (BEAKER) 369 mg/dL 70-105 (test dvgv=436) CALCIUM (BEAKER) (test 8.4 mg/dL 8.4-10.2 qfod=624) EGFR (BEAKER) (test 61 mL/min/1.73 sq m ESTIMATED GFR IS NOT wafo=4473) ACCURATE CREATININE CLEARANCE IN PREDICTING GLOMERULAR FILTRATION RATE. ESTIMATED GFR IS NOT APPLICABLE FOR DIALYSIS PATIENTS. CALCIUM, [id number] 06:39:00 Test Item Value Reference Range Comments CALCIUM IONIZED (BEAKER) (test uwdb=710) 0.92 mmol/L 1.12-1.27 PH, BLOOD (BEAKER) (test nbez=6149) 7.42 CBC (HEMOGRAM ONLY)2017-01-22 06:16:00 Test Item Value Reference Range Comments WHITE BLOOD CELL COUNT (BEAKER) (test jwcr=059) 9.8 K/ L 3.5-10.5 RED BLOOD CELL COUNT (BEAKER) (test ieuh=639) 5.12 M/ L 4.63-6.08 HEMOGLOBIN (BEAKER) (test ksmi=274) 14.9 GM/DL 13.7-17.5 HEMATOCRIT (BEAKER) (test jvxn=285) 45.9 % 40.1-51.0 MEAN CORPUSCULAR VOLUME (BEAKER) (test llaz=222) 89.6 fL 79.0-92.2 MEAN CORPUSCULAR HEMOGLOBIN (BEAKER) (test 29.1 pg 25.7-32.2 csdc=009) MEAN CORPUSCULAR HEMOGLOBIN CONC (BEAKER) (test 32.5 GM/DL 32.3-36.5 jvdn=607) RED CELL DISTRIBUTION WIDTH (BEAKER) (test 13.4 % 11.6-14.4 sldq=004) PLATELET COUNT (BEAKER) (test rpzm=695) 166 K/CU MM 150-450 MEAN PLATELET VOLUME (BEAKER) (test jzlb=319) 9.8 fL 9.4-12.4 NUCLEATED RED BLOOD CELLS (BEAKER) (test 0 /100 WBC 0-0 svlm=906) POCT-GLUCOSE [id number] 06:14:00 Test Item Value Reference Range Comments POC-GLUCOSE METER (BEAKER) 309 mg/dL 70-110 Notified CATE NICHOLS/TESTED AT [facility] (test ntuy=3710) [address] [place] [address] POCT-GLUCOSE [id number] 21:42:00 Test Item Value Reference Range Comments POC-GLUCOSE METER (BEAKER) 252 mg/dL 70-110 TESTED AT [address] (test pqkp=1630) [facility] [address] POCT-GLUCOSE [id number] 09:56:00 Test Item Value Reference Range Comments POC-GLUCOSE METER (BEAKER) 226 mg/dL 70-110 TESTED AT [address] (test ihpa=3262) [facility] [address] POCT-GLUCOSE [id number] 13:27:00 Test Item Value Reference Range Comments POC-GLUCOSE METER (BEAKER) 172 mg/dL 70-110 TESTED AT [place] [id number] [place] (test fdha=3810) [facility] [address]
--- NOTE | 2017-06-14 15:19 | RAD REPORT ---
EXAM DESCRIPTION: CT - Head Brain Wo Cont - 06/14/2017 3:10 pm CLINICAL HISTORY: Confusion/declining state COMPARISON: June 07, 2017 TECHNIQUE: Computed axial tomography of the head was obtained. IV contrast was not requested. All CT scans are performed using dose optimization technique as appropriate and may include automated exposure control or mA/KV adjustment according to patient size. FINDINGS: An intracranial bleed is not seen . The ventricles are normal in caliber. 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 Mild to moderate low-density areas within periventricular, deep and subcortical white matter likely represent ischemic changes secondary to small vessel disease . Fluid within the sinuses/ mastoids is not seen. IMPRESSION: No acute intracranial abnormality is seen. If patient's symptoms persist MRI of the bra in would be recommended.
--- NOTE | 2017-06-14 15:34 | RAD REPORT ---
EXAM DESCRIPTION: Mohinder Single View06/14/2017 3:21 pm CLINICAL HISTORY: Colon cancer COMPARISON: June 07, 2017 FINDINGS: The lungs appear clear of acute infiltrate. The heart is normal size. The patient is in a poor degree of inspiration IMPRESSION: No acute abnormalities displayed
[2017-06-14 16:11] LABS: Absolute Lymphocytes (CBC) 1.5 K/uL (0.7-4.9); Absolute Monocytes 1.1 K/uL (0.1-1.3); Basophils % 0.6 % (0-1.3); Eosinophils % 0.7 % (0-4.4); Hematocrit 40.7 % (39.6-49.0); Lymphocytes % 15.1 % (15.3-44.8); MCH 26.7 pg (27.0-35.0); MPV 8.5 fL (7.6-11.3); RBC Red Blood Cell Count 4.85 M/uL (4.33-5.43)
[2017-06-14 16:20] LABS: Bicarbonate 25 mEq/L (21-31); Glucose Level 182 mg/dL (65-120); Potassium 4.1 mEq/L (3.6-5.0); Sodium Level 135 mEq/L (135-145)
[2017-06-14 16:21] LABS: BUN Blood Urea Nitrogen 8 mg/dL (6-20)
[2017-06-14 17:19] LABS: Urine Appearance CLOUDY; Urine Blood 1+ (NEG); Urine Color DK YELLOW; Urine Glucose NEGATIVE (NEG); Urine Protein 1+ (NEG); Urine Specific Gravity >=1.030 (1.005-1.030); Urine Urobilinogen 0.2 mg/dL (0.2-1.0)
[2017-06-14 17:24] LABS: Urine Bilirubin 1+ (NEG); Urine Microscopic Reflex ORDER UMIC
[2017-06-14 17:32] LABS: Urine Bacteria 20-50 /HPF (NONE SEEN); Urine Culture Reflex Order NOT NEEDED; Urine Mucus SLIGHT /HPF (NONE SEEN); Urine RBC <5 /HPF (NONE SEEN)
--- NOTE | 2017-06-14 18:22 | ER ---
Nurse's Notes [facility] Name: Blu Palumbo Age: 57 yrs Sex: Male : 1960 Arrival Date: 06/14/2017 Time: 14:04 Bed 14 Private MD: Diagnosis: Altered mental status, unspecified;Weakness;Hypomagnesemia Presentation: 06/14 14:05 Presenting complaint: EMS states: reports patient has been confused for 2 weeks. aj DX with UTI 1 week ago today, completed ABX. Reports patient is not improving. Patient is oriented to person and place. Transition of care: patient was not received from another setting of care. Onset of symptoms was May 31, 2017. Initial Sepsis Screen: Does the patient meet any 2 criteria? No. Patient's initial sepsis screen is negative. Does the patient have a suspected source of infection? No. Patient's initial sepsis screen is negative. Care prior to arrival: None. 14:05 Method Of Arrival: EMS: [facility] 14:05 Acuity: KIMO 3 aj Triage Assessment: 14:10 General: Appears in no apparent distress. comfortable, Behavior is calm, cooperative. aj Pain: Denies pain. Neuro: Level of Consciousness is awake, obeys commands, Oriented to person, place, Consumer Insight Analyst are weak bilaterally Speech is normal. Respiratory: Airway is patent Respiratory effort is even, unlabored, Respiratory pattern is regular, symmetrical. GI: Colostomy site is clean and dry. Ostomy appliance is intact. : Derm: Skin is intact, is healthy with good turgor, Skin is pink, warm \T\ dry. normal. Historical: - Allergies: 14:10 No Known Allergies; aj - Home Meds: 14:10 amiodarone 200 mg Oral tab [Active]; atorvastatin 80 mg Oral tab [Active]; digoxin 250 aj mcg Oral tab [Active]; Eliquis 5 mg Oral tab [Active]; famotidine 20 mg Oral tab [Active]; Humulin R [Active]; loperamide 2 mg Oral tab [Active]; Myrbetriq 50 mg Oral Tb24 [Active]; metoprolol tartrate 25 mg Oral tab [Active]; Synthroid Oral [Active]; - PMHx: 14:10 colon cancer; CVA; Diabetes - IDDM; Sepsis; aj - PSHx: 14:10 Colostomy; aj - Immunization history:: Adult Immunizations up to date. - Social history:: Smoking status: Patient/guardian denies using tobacco. Screenin:13 Abuse screen: Denies threats or abuse. Denies injuries from another. Nutritional aj screening: No deficits noted. Tuberculosis screening: No symptoms or risk factors identified. Fall Risk None identified. Assessment: 14:13 Reassessment: See triage. aj 19:30 General: Appears in no apparent distress. Behavior is cooperative. Pain: Denies pain. ea Neuro: Level of Consciousness is awake, alert, Oriented to person. Cardiovascular: Heart tones present Patient's skin is warm and dry. Respiratory: Airway is patent Respiratory effort is even, unlabored, Respiratory pattern is regular, symmetrical, Breath sounds are clear bilaterally. GI: No signs and/or symptoms were reported involving the gastrointestinal system. Derm: Skin is pink, warm \T\ dry. 20:58 Reassessment: Patient and/or family updated on plan of care and expected duration. Pain ea level reassessed. Pt alert and oriented to self, at bedside. Incontinent care provided, pt tolerated well. 21:55 Reassessment: Patient and/or family updated on plan of care and expected duration. Pain ea level reassessed. Pt resting with eyes closed, respirations even and unlabored, chest expansions even and symmetrical. No s/s of pain or discomfort noted at this time. 22:35 Reassessment: report given to Tonya ESPOSITO at [facility]. ea 22:50 Reassessment: Patient and/or family updated on plan of care and expected duration. Pain ea level reassessed. [facility] at facility for transfer. Pt alert and oriented to self. Respirations even and unlabored, chest expansions even and symmetrical. No s/s of pain or discomfort noted at this time. Vital Signs: 14:12 BP 97 / 69; Pulse 87; Resp 20; Temp 97.8; Pulse Ox 97% on R/A; Weight 90.72 kg; Height aj 6 ft. 4 in. (193.04 cm); Pain 0/10; 14:45 BP 116 / 77; Pulse 85; Resp 19; Pulse Ox 99% on R/A; aj 17:18 BP 142 / 83; Pulse 93; Resp 21; Pulse Ox 97% on R/A; aj 18:53 BP 120 / 69; Pulse 103; Resp 17; Pulse Ox 95% on R/A; aj 19:40 BP 136 / 70; Pulse 88; Resp 18; Temp 98(O); Pulse Ox 98% on R/A; ea 20:00 BP 132 / 68; Pulse 90; Resp 18; Pulse Ox 99% on R/A; ea 21:15 BP 128 / 64; Pulse 86; Resp 18; Pulse Ox 98% on R/A; ea 22:50 BP 132 / 70; Pulse 87; Resp 18; Temp 98(O); Pulse Ox 99% on R/A; Pain 0/10; ea 14:12 Body Mass Index 24.34 (90.72 kg, 193.04 cm) aj ED Course: 14:04 Patient arrived in ED. aj 14:07 Triage completed. aj 14:12 Arm band placed on left wrist. Patient placed in an exam room, on a stretcher, on pulse aj oximetry. 14:13 Patient has correct armband on for positive identification. aj 14:17 Caridad Lao RN is Primary Nurse. aj 14:22 Moshe Wiley MD is Attending Physician. kdr 15:11 CT Head Brain wo Cont In Process Unspecified. EDMS 15:19 X-ray completed. Portable x-ray completed in exam room. Patient tolerated procedure ml well. 15:20 CXR XRAY In Process Unspecified. EDMS 16:02 Inserted saline lock: 22 gauge in left forearm, using aseptic technique. Blood aj collected. 16:36 Straight cath inserted, using sterile technique, 16 Fr. Specimen obtained. Patient aj tolerated well. 19:38 Attending Physician role handed off by Moshe Wiley MD [facility] 19:38 Rojelio Rock MD is Attending Physician. vivi 23:16 No provider procedures requiring assistance completed. Patient transferred, IV remains ea in place. Administered Medications: 19:44 Drug: NS 0.9% 500 ml Volume: 500 ml; Route: IV; Rate: 1 bolus; Site: left forearm; ea 22:30 Follow up: Response: No adverse reaction; IV Status: Completed infusion ea 20:39 Drug: NS 0.9% 1000 ml Route: IV; Rate: 125 ml/hr; Site: left forearm; ea 23:00 Follow up: Response: No adverse reaction; IV Status: Infusion continued upon transfer ea 23:34 Not Given (pt transfered ): Magnesium Sulfate 1 grams IVPB once over 1 hrs ea Outcome: 18:21 ER care complete, transfer ordered by . kdr 23:00 Condition: stable ea 23:00 Instructed on the need for transfer. 23:00 Transferred by ground EMS to [facility], Transfer form completed. ea 23:19 Patient left the ED. ea Signatures: Dispatcher [employer] EDCaridad Rivas RN RN Rojelio Orta MD MD cha Rittger, Kevin, MD MD kdr Lopez, Melissa ml Antunez, Elena, RN RN ea Corrections: (The following items were deleted from the chart) 17:19 17:15 BP 91 / 75; Pulse 93bpm; Resp 21bpm; Pulse Ox 97% RA; magalis blancas
--- NOTE | 2017-06-14 18:22 | EDPHYS ---
Physician Documentation [facility] Name: Blu Palumbo Age: 57 yrs Sex: Male : 1960 Arrival Date: 06/14/2017 Time: 14:04 Bed 14 Private MD: ED Physician Rojelio Rock HPI: 06/14 14:52 This 57 yrs old Male presents to ER via EMS with complaints of Altered Mental kdr Status. 14:52 The patient presents with confusion, decreased mental status, decreased responsiveness. kdr Onset: The symptoms/episode began/occurred gradually, 1 week(s) ago. Possible causes: CVA or TIA, sepsis, Was recently treated for a UTI - Augmentin. 14:54 Associated signs and symptoms: Pertinent positives: confusion, weakness, Pertinent kdr negatives: abdominal pain, blurred vision, chest pain, combativeness, diaphoresis, headache, seizure, shortness of breath, tingling, vertigo. Current symptoms: In the emergency department the patient's symptoms are unchanged from the initial presentation, have worsened, mildly. Patient's baseline: Neuro: alert but confused, Motor: The patient is bed bound since he had a prior stroke last year, Ambulation:. The patient has experienced similar episodes in the past, a few times. The patient has not recently seen a physician. Historical: - Allergies: 14:10 No Known Allergies; aj - Home Meds: 14:10 amiodarone 200 mg Oral tab [Active]; atorvastatin 80 mg Oral tab [Active]; digoxin 250 aj mcg Oral tab [Active]; Eliquis 5 mg Oral tab [Active]; famotidine 20 mg Oral tab [Active]; Humulin R [Active]; loperamide 2 mg Oral tab [Active]; Myrbetriq 50 mg Oral Tb24 [Active]; metoprolol tartrate 25 mg Oral tab [Active]; Synthroid Oral [Active]; - PMHx: 14:10 colon cancer; CVA; Diabetes - IDDM; Sepsis; aj - PSHx: 14:10 Colostomy; aj - Immunization history:: Adult Immunizations up to date. - Social history:: Smoking status: Patient/guardian denies using tobacco. ROS: 14:54 Constitutional: Negative for fever, chills, or recent weight loss, Eyes: Negative for kdr injury, pain, redness, and discharge, Cardiovascular: Negative for chest pain, palpitations, and edema, Respiratory: Negative for shortness of breath, cough, wheezing, and pleuritic chest pain, Abdomen/GI: Negative for abdominal pain, nausea, vomiting, diarrhea, and constipation, Back: Negative for injury and pain, Psych: Negative for depression, anxiety, suicide ideation, homicidal ideation, and hallucinations, Allergy/Immunology: Negative for hives, rash, and allergies, Endocrine: Negative for neck swelling, polydipsia, polyuria, polyphagia, and marked weight changes. 14:54 MS/extremity: Positive for The patient is generally weak and has right sided deficit secondary to prior stroke'. Exam: 14:54 Constitutional: This is a well developed, well nourished patient who is awake, kdr somnolent but in no acute distress. Head/Face: Normocephalic, atraumatic. Eyes: Pupils equal round and reactive to light, extra-ocular motions intact. Lids and lashes normal. Conjunctiva and sclera are non-icteric and not injected. Cornea within normal limits. Periorbital areas with no swelling, redness, or edema. Chest/axilla: Normal chest wall appearance and motion. Nontender with no deformity. No lesions are appreciated. Cardiovascular: Regular rate and rhythm with a normal S1 and S2. No gallops, murmurs, or rubs. Normal PMI, no JVD. No pulse deficits. Respiratory: Lungs have equal breath sounds bilaterally, clear to auscultation and percussion. No rales, rhonchi or wheezes noted. No increased work of breathing, no retractions or nasal flaring. Abdomen/GI: Soft, non-tender, with normal bowel sounds. No distension or tympany. No guarding or rebound. No evidence of tenderness throughout. Back: No spinal tenderness. No costovertebral tenderness. Full range of motion. Skin: Warm, dry with normal turgor. Normal color with no rashes, no lesions, and no evidence of cellulitis. He does have slight skin breakdown on his coccyx MS/ Extremity: Pulses equal, no cyanosis. Neurovascular intact. Full, normal range of motion. 14:54 Neuro: Orientation: to person, Not oriented to place, time, situation, Mentation: able to follow commands, slow to respond, confused, Memory: unable to test, Cranial nerves: unable to test, Cerebellar function: unable to test, Motor: the patient is contracted, Sensation: unable to test, Gait: not tested. seizure activity, is not displayed by the patient. Vital Signs: 14:12 BP 97 / 69; Pulse 87; Resp 20; Temp 97.8; Pulse Ox 97% on R/A; Weight 90.72 kg; Height aj 6 ft. 4 in. (193.04 cm); Pain 0/10; 14:45 BP 116 / 77; Pulse 85; Resp 19; Pulse Ox 99% on R/A; aj 17:18 BP 142 / 83; Pulse 93; Resp 21; Pulse Ox 97% on R/A; aj 18:53 BP 120 / 69; Pulse 103; Resp 17; Pulse Ox 95% on R/A; aj 19:40 BP 136 / 70; Pulse 88; Resp 18; Temp 98(O); Pulse Ox 98% on R/A; ea 20:00 BP 132 / 68; Pulse 90; Resp 18; Pulse Ox 99% on R/A; ea 21:15 BP 128 / 64; Pulse 86; Resp 18; Pulse Ox 98% on R/A; ea 22:50 BP 132 / 70; Pulse 87; Resp 18; Temp 98(O); Pulse Ox 99% on R/A; Pain 0/10; ea 14:12 Body Mass Index 24.34 (90.72 kg, 193.04 cm) aj MDM: 14:54 Data reviewed: vital signs, nurses notes, lab test result(s), radiologic studies. kdr Counseling: I had a detailed discussion with the patient and/or guardian regarding: the historical points, exam findings, and any diagnostic results supporting the discharge/admit diagnosis, lab results, radiology results. 18:21 Patient medically screened. kdr 19:38 Patient medically screened. vivi 06/14 14:51 Order name: CBC with Diff; Complete Time: 18:13 kdr 06/14 14:51 Order name: Chem 7; Complete Time: 18:13 kdr 06/14 14:51 Order name: Urine Culture kdr 06/14 14:54 Order name: Procalcitonin; Complete Time: 18:13 kdr 06/14 14:54 Order name: Lactate; Complete Time: 18:13 kdr 06/14 17:13 Order name: Urinalysis; Complete Time: 18:13 EDMS 06/14 17:26 Order name: Urine Microscopic Only; Complete Time: 18:13 EDMS 06/14 19:20 Order name: BNP vivi 06/14 19:20 Order name: Ckmb; Complete Time: 22:52 vivi 06/14 19:20 Order name: CPK; Complete Time: 22:52 vivi 06/14 19:20 Order name: LFT's; Complete Time: 22:52 vivi 06/14 19:20 Order name: Magnesium; Complete Time: 22:52 vivi 06/14 19:20 Order name: PT-INR; Complete Time: 22:52 vivi 06/14 14:51 Order name: Urine Dipstick-Ancillary (obtain specimen); Complete Time: 17:21 kdr 06/14 14:51 Order name: CT Head Brain wo Cont; Complete Time: 18:13 kdr 06/14 14:51 Order name: CXR XRAY; Complete Time: 18:13 kdr 06/14 19:20 Order name: Ptt, Activated; Complete Time: 22:52 vivi 06/14 19:20 Order name: Troponin (emerg Dept Use Only); Complete Time: 22:52 vivi 06/14 19:20 Order name: EKG; Complete Time: 19:21 vivi 06/14 19:20 Order name: Cardiac monitoring vivi 06/14 19:20 Order name: EKG - Nurse/Tech; Complete Time: 19:43 vivi 06/14 19:20 Order name: IV Saline Lock; Complete Time: 20:47 vivi 06/14 19:20 Order name: Labs collected and sent; Complete Time: 20:48 vivi 06/14 19:20 Order name: O2 Per Protocol; Complete Time: 19:43 vivi 06/14 19:20 Order name: Digoxin; Complete Time: 22:52 vivi 06/14 19:20 Order name: O2 Sat Monitoring; Complete Time: 19:43 vivi Administered Medications: 19:44 Drug: NS 0.9% 500 ml Volume: 500 ml; Route: IV; Rate: 1 bolus; Site: left forearm; ea 22:30 Follow up: Response: No adverse reaction; IV Status: Completed infusion ea 20:39 Drug: NS 0.9% 1000 ml Route: IV; Rate: 125 ml/hr; Site: left forearm; ea 23:00 Follow up: Response: No adverse reaction; IV Status: Infusion continued upon transfer ea 23:34 Not Given (pt transfered ): Magnesium Sulfate 1 grams IVPB once over 1 hrs ea Disposition: 06/14/17 18:21 Transfer ordered to [facility]. Diagnosis are Altered mental status, unspecified, Weakness, Hypomagnesemia. - Reason for transfer: Higher level of care. - Accepting physician is Internal medicine. - Condition is Fair. - Problem is an acute exacerbation. - Symptoms have improved. Signatures: Dispatcher [employer] Caridad Mendieta, RN RN Rojelio Orta MD MD cha Rittger, Kevin, MD MD kdr Antunez, Elena, RN RN tanner
[2017-06-14] MEDS ORDERED: NA CHLORIDE 0.9% 1,000 ML ONE (19:26)
[2017-06-14] MEDS ORDERED: NA CHLORIDE 0.9% 500 ML ONE (19:27)
[2017-06-14 20:47] LABS: Protime INR 1.63
[2017-06-14 21:20] LABS: CKMB Creatine Kinase MB 2.2 ng/ml (0.3-4.0)
[2017-06-14 21:21] LABS: Bilirubin Direct 0.2 mg/dL (0-0.2); Bilirubin Total 0.8 mg/dL (0.3-1.2); Magnesium 1.5 mg/dL (1.8-2.5); Protein, Total 6.9 g/dL (6.0-8.3)
[2017-06-14 23:41] VITALS: BP 136/70; TEMP 98; O2SAT 98
--- NOTE | 2017-06-15 07:18 | EKG ---
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
== END 2017-06-14 23:19 | disposition short-term general hospital (02) ==
LOC: ER 14:01
DX: E83.42 Hypomagnesemia (principal); R53.1 Weakness; Z86.73 Personal history of transient ischemic attack (TIA), and cerebral infarction without residual deficits; E11.9 Type 2 diabetes mellitus without complications; Z79.4 Long term (current) use of insulin; Z85.038 Personal history of other malignant neoplasm of large intestine
CPT/HCPCS: 36415; 51702; 70450; 71045; 80048; 80076; 80162; 81003; 81015; 82550; 82553; 83605; 83735; 84145; 84484; 85025; 85610; 85730; 87086; 87088; 93005; 96360; 96361; 99285; J7030

== ENCOUNTER 2017-08-15 12:35 | Inpatient (IN) | payer OTHER ==
--- OUTSIDE RECORDS SUMMARY | 2017-08-15 12:39 | XMS REPORT | Clinical Summary ---
:1960 Author Organization [facility] Address [address] [place] [address] Phone Care Team Providers Name Role Phone Unavailable Primary Care Provider Unavailable Allergies No Known Allergies Current Medications Prescription Sig. Disp. Refills Start End Date Status Date atorvastatin Take 1 tablet (80 30 tablet 0 03/15/19 Active (LIPITOR) 80 MG mg total) by mouth 8 19 tablet daily. amiodarone Take 1 tablet (200 30 tablet 03/15/19 Active (PACERONE) 200 MG mg total) [...] mouth 8 tablet every 12 (twelve) hours. metoprolol Take 1 tablet (25 60 tablet 03/14/19 Active (LOPRESSOR) 25 MG mg total) by mouth 8 19 tablet 2 (two) times daily. glucagon, human Inject 1 mL (1 mg 1 each 0 Active recombinant, 1 total) 8 mg/mL SolR intramuscularly as injection needed (BGL< 70, patient unable to PO, AND unable to give D50W due to lack of IV access). loperamide Take 2 mg by mouth Active (IMODIUM A-D) 2 2 (two) times mg tablet daily. mirabegron Take 50 mg by mouth Active (MYRBETRIQ) 50 mg daily Not currently Tb24 ER tablet taking until sees urologist per . folic acid Take 1 tablet (1 mg 30 tablet 0 06/21/19 Active (FOLVITE) 1 MG total) by mouth 8 19 tablet daily. levothyroxine Take 2 tablets (250 60 tablet 0 06/21/19 Active (SYNTHROID, mcg total) by mouth 8 LEVOTHROID) 125 Every morning on an MCG tablet empty stomach. thiamine 100 MG Take 1 tablet (100 30 tablet 0 06/21/19 Active tablet mg total) by mouth 8 19 daily. aspirin 81 MG EC Take 1 tablet (81 0 06/20/19 Active tablet mg total) by mouth 8 daily. insulin regular Inject 15 Units 0 Active hum U-500 conc subcutaneously 2 8 (HUMULIN R U-500, (two) times daily. CONCENTRATED,) 500 unit/mL Soln propranolol Take 40 mg by mouth 03/14/19 [...] Discontinued (WELLBUTRIN) 75 daily. 18 MG tablet levothyroxine Take 2 tablets (400 60 tablet 0 06/20/19 Discontinued (SYNTHROID, mcg total) by mouth 8 18 LEVOTHROID) 200 Every morning on an MCG tablet empty stomach. acetaminophen Take 2 tablets 30 tablet 0 03/24/19 (TYLENOL) 500 MG (1,000 mg total) by 8 18 tablet mouth every 6 (six) hours as needed for Fever for up to 10 days. ipratropium-albut Take 3 mLs by 360 mL 0 06/16/19 Discontinued nanda (DUO-NEB) nebulization every 8 18 0.5 mg-3 mg(2.5 6 (six) hours for mg base)/3 mL 360 days. nebulizer solution loperamide Take 2 capsules (4 30 capsule [...] if glucose <90mg/dLHold if tube feeds held.. insulin detemir Inject 20 Units 6 mL 0 06/16/19 Discontinued (LEVEMIR) 100 subcutaneously 8 18 unit/mL injection every morning If glucose 90-100mg/dl give half dose. Hold if glucose <90mg/dl. Hold if tube feeds held.. insulin regular Inject 0.1 mLs (10 12 mL 0 06/20/19 Discontinued (HUMULIN Units total) 8 18 R,NOVOLIN R) 100 subcutaneously unit/mL injection every 6 (six) hours. insulin regular Inject 0-0.12 mLs 10 mL 0 06/16/19 Discontinued (HUMULIN (0-12 Units total) 8 18 R,NOVOLIN R) 100 subcutaneously 3 unit/mL injection (three) times daily SSI 2:50 BG>150mg/dl as needed. 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 Rectal cancer (HCC) 01/21/2017 Cerebral infarction (HCC) 12/20/2014 Overview: UPDATED BY ICD10 SNOMED/IMO UPDATES Lumbar radiculitis 12/14/2013 Hypertension Overview: HTN x 15 yrs Diabetes mellitus (HCC) Overview: IDDM x 19 yrs/ uses insulin pump/ Checks bs 7x daily average [address] Neuropathy Hypothyroid Hypercholesteremia Essential tremor Resolved Problems Problem Noted Date Resolved Date Confusion 06/15/2017 06/15/2017 UTI (urinary tract infection) 06/15/2017 06/16/2017 Bacteremia 02/18/2017 03/14/2017 Acute metabolic encephalopathy 2/2 severe hyperglycemia 01/24/2017 03/14/2017 Acute hyperglycemia 01/23/2017 03/14/2017 Hypophosphatasia 01/23/2017 03/14/2017 Acute postoperative pain 01/23/2017 03/14/2017 Leukocytosis, unspecified type 01/23/2017 03/14/2017 Combative behavior 01/23/2017 03/14/2017 Threatening to others 01/23/2017 03/14/2017 Transient cerebral ischemia, unspecified type 09/28/2015 06/15/2017 Sepsis, due to unspecified organism ([facility]) 03/14/2017 Encounters Date Type Specialty Care Team Description 06/15/2017 [facility] Internal [facility] Transient cerebral - Encounter Medicine MD Renu ischemia, 06/19/2017 Emilee Gaytan unspecified type MD Jacqui (Primary Javed, Umsd, Dx);Confusion;Type MD 2 diabetes mellitus without complication, with long-term current use of insulin ([facility]);Essential tremor;Essential hypertension;Neurop athy;Rectal cancer (HCC);Acute ischemic multifocal multiple vascular territories stroke (HCC);Hypothyroidis m, unspecified type;Cerebral infarction due to bilateral occlusion of middle cerebral arteries ([facility]) 06/11/2017 Outside Orders Central Scheduling Shaun Juares Paroxysmal atrial MD Yasir fibrillation ([facility]) (Primary Dx);Hypertension, unspecified type;Familial combined hyperlipidemia;Slee p apnea, unspecified type;Uncontrolled diabetes mellitus type 2 without complications, unspecified whether longterm insulin use ([facility]);Hypothyroidis m, adult;Lower venous segment thrombosis, unspecified laterality ([facility]);Abnormal breath sounds 03/05/2017 Procedure Pass Gastroenterology 03/05/2017 Surgery Gastroenterology [place] UPPER ENDOSCOPY Renzo Duong MD 03/04/2017 Anesthesia Event Gastroenterology Edward Julian MD 02/22/2017 Orders Only General Internal Medicine 02/04/2017 Anesthesia Event Cardiac Intensive Care Vlad Briones MD 02/01/2017 Anesthesia Event Gastroenterology Taniya Beltran CRNA 02/01/2017 Procedure Pass Gastroenterology 02/01/2017 Surgery Gastroenterology Candelario Murphy SIGMOIDOSCOPY [facility] 01/24/2017 Anesthesia Event Willard Lee MD 01/24/2017 Procedure Pass 01/24/2017 Surgery Vooldymyr, KEIKO,ILEOSTO MARIA FERNANDA Saavedra MD 01/21/2017 [facility] General Internal Clemente Moreno, Acute - Encounter [...] 01/10/2017 Orders Only General Internal Medicine 12/05/2016 Hospital Navjot Roy Encounter MD Velma 12/05/2016 Anesthesia Event Shawna Danielle MD 12/05/2016 Procedure Pass 12/05/2016 Surgery Navjot Roy COLONOSCOPY,BIOPSY MD Velma 11/30/2016 Hospital Pre-Admission Testing Encounter after 08/14/2016 Social History Tobacco Use Types Packs/Day Years Used Date Never Smoker Smokeless Tobacco: Never Used Alcohol Use Drinks/Week oz/Week Comments No Sex Assigned at Date Recorded Not on file Last Filed Vital Signs Vital Sign Reading Time Taken Blood Pressure 131/75 06/19/2017 4:44 PM CDT Pulse 73 06/19/2017 4:44 PM CDT Temperature 36.9 C (98.4 F) 06/19/2017 4:44 PM CDT Respiratory Rate 18 06/19/2017 4:44 PM CDT Oxygen Saturation 98% 06/19/2017 4:44 PM CDT Inhaled Oxygen Concentration - - Weight 126.6 kg (279 lb) 06/17/2017 3:21 AM CDT Height 193 cm (6' 4") 06/17/2017 3:21 AM CDT Body Mass Index 33.96 06/17/2017 3:21 AM CDT Plan of Treatment Not on file Procedures Procedure Name Priority Date/Time Associated Diagnosis Comments UPPER ENDOSCOPY 03/05/2017 8:00 AM Malnutrition, DIRECTOR MEDICAL SCIENCE unspecified type (HCC) SIGMOIDOSCOPY 02/01/2017 3:00 PM Incontinence of feces, [employer] unspecified fecal incontinence type LAPAROSCOPY,ILEOSTOMY 01/24/2017 4:30 PM Anastomotic Leaks [employer] PROCEDURE W/ DAVINCI 01/21/2017 8:00 AM Rectal cancer (HCC) [employer]ENCE ROBOTIC LAPAROSCOPY,LOW 01/21/2017 8:00 AM Rectal cancer (HCC) ANTERIOR RESECTION [employer]ENCE COLONOSCOPY,SUBMUCOSAL 12/05/2016 1:30 PM Blood in stool INJECTION CDT COLONOSCOPY,BIOPSY 12/05/2016 1:30 PM Blood in stool CDT after 08/14/2016 Results RHYTHM STRIP - SCAN (06/21/2017 11:02 AM)Only the most recent of2 resultswithin the time period is included.POC-Glucose meter (06/19/2017 4:42 PM)Only the most recent of465 resultswithin the time period is included. Component Value Ref Range POC-Glucose Meter 192 (H)Comment: TESTED AT [address] 70 - 110 mg/[place] [address] Specimen Performing Laboratory Blood [facility] [address] [address] Basic Metabolic Panel (06/19/2017 5:21 AM)Only the most recent of59 resultswithin the time period is included. Component Value Ref Range Sodium 143 136 - 145 meq/L Potassium 3.6 3.5 - 5.1 meq/L Chloride 107 98 - 107 meq/L CO2 27 22 - 29 meq/L BUN 4 (L) 7 - 21 mg/dL Creatinine 0.58 0.57 - 1.25 mg/dL Glucose 117 (H) 70 - 105 mg/dL Calcium 8.8 8.4 - 10.2 mg/dL EGFR 144Comment: ESTIMATED GFR IS NOT ACCURATE mL/min/1.73 sq m CREATININE CLEARANCE IN PREDICTING GLOMERULAR FILTRATION RATE. ESTIMATED GFR IS NOT APPLICABLE FOR DIALYSIS PATIENTS. Specimen Performing Laboratory Blood [facility] [address] [address] ECHOCARDIOGRAM REPORT - SCAN (06/18/2017 6:50 PM)Only the most recent of2 resultswithin the time period is included.2D Echo W/Doppler(CW/PW/Color) (2017 3:00 PM)Only the most recent of2 resultswithin the time period is included. Component Value Ref Range Ejection Fraction Specimen Performing Laboratory [facility] ECHO HEARTLAB MKCKESSON CPACS Narrative Transthoracic Echocardiography Report (TTE) Demographics Patient NameTERRELL PALUMBO Date of Study06/18/2017 CAN Gender Male Visit [id number] Race Unknown Number [id number] Number Date of 1960 [facility] Tarsha Yoder Age 57 year(s) SonographerOscar Savannah [facility] Interpreting González Barros MD FellowCORRINA Ramon Procedure Type of Study TTE procedure:2DECHO W DOPPLER(CW/PW/COLOR) (STAT) Indications:Suspected cardiac source of emboli and Stroke . Clinical History CANCER, STROKE, DIABETES, HTN HGB 11.0 HCT 36.6 % Contrast Medium: Definity. Amount - 2 ml Height: 76 inches Weight: 126.55 kg (279 lbs) BSA: 2.55 m^2 BMI: 33.96 kg/m^2 HR: 68 bpm BP: 106/66 mmHg Summary IV saline contrast injection was negative for a PFO (patent foramen ovale) at rest and post Valsalva. The intraatrial septum is well visualized. Normal intraatrial septum by available views. Left ventricular endocardium is incompletely visualized with IV contrast. LV chamber size is normal (male - LVED vol 34-74ml/m2). There is no LV hypertrophy. All of the segments appear to contract normally. Estimated ejection fraction by Santoyo's biplane method is normal (>60%). Diastolic dysfunction is grade 1 (impaired relaxation). Previous Study In comparison with the prior exam on 01/25/17 the following changes are noted: LVEF has improved. Signature Findings Rhythm/BPNormal sinus rhythm during the exam. Left Ventricle Left ventricular endocardium is incompletely visualized with IV contrast. LV chamber size is normal (male - LVED vol 34-74ml /m2). There is no LV hypertrophy. All of the segments appear to contract normally. Estimated ejection fraction by Santoyo's biplane method is normal (>60%) . Diastolic dysfunction is grade 1 ( impaired relaxation). Left AtriumLeft atrium is adequately visualized. Left atrial size is normal (16-34 mL/m2). Right VentricleRV appears mildly enlarged measuring >2/3 the size of the LV on apical views. but modified view (may be normal) Right Atrium Right atrial size is normal. Atrial SeptumIV saline contrast injection was negative for a PFO (patent foramen ovale) at rest and post Valsalva. The intraatrial septum is well visualized. Normal intraatrial septum by available views. Aortic Valve Normal aortic valve structure. No aortic stenosis. No aortic regurgitation. Mitral Valve Normal mitral structure. No mitral stenosis. No mitral regurgitation. Tricuspid ValveTricuspid structure is normal. Mild tricuspid regurgitation. Pulmonary artery systolic pressure is estimated at 23 mmHg + right atrial pressure. Pulmonic Valve Normal pulmonic valve structure and function. AortaAortic root size (sinus of Valsalva diameter) is normal. Visualized aortic arch is normal. PericardiumNo pericardial effusion is visualized. IVC/SVC/PA/PV/PleuralThe inferior vena cava is not well visualized. Unable to estimate right atrial pressure. Chambers/Structures Left Atrium LA Volume: 47.01 ml LA Area: 17.82 cm^ 2 LA Vol. Index: 18 ml/m^2 Left Ventricle LVIDd: 2.68 cm LVIDs: 0.96 cm LV Septum Diastolic: 1.69 cm LV Septum Systolic: 2.54 cm LV FS: 64.2 % LV PW Diastolic: 1.36 cm LV PW Systolic: 2.07 cm LVEDVI: 40 ml/ m^2 LVEDV Santoyo's:102.54 ml LVESVI: 5 ml/m^2 LVESV Santoyo's:13.34 ml LVEF Santoyo's: 87 % LVOT Diameter: 2.08 cm Doppler/Quantitative Measurements Mitral Valve MV Peak E-Wave: 0.61 m/s MV Peak A-Wave: 0.87 m/s E/A Ratio: 0.7 Peak Gradient: 1.49 mmHg Decel eration Time: 350 msec MV Chucho. Peak: Tissue Doppler E' Septal Velocity: 0.12 m/s E/E': 2.93 E' Lateral Velocity: 0.21 m/s Aortic Valve Peak Velocity: 1.17 m/sMean Velocity: 0.87 m/s Peak Gradient: 5.49 mmHg Mean Gradient: 3.38 mmHg AV Area (continuity): 3.58 cm^2 AV VTI: 21.11 cm AV DVI: 1.06 LVOT Peak Velocity: 1.31 m/s Peak Gradient: 6.84 mmHg Mean Velocity: 0.9 m/sMean Gradient: 3.74 mmHg LVOT Diameter: 2.08 cmLVOT VTI: 22.28 cm LVOT Area: 3.4 cm^2 LVOT SV:75.67 ml LVOT CO: 5.15 l/min LVOT CI: 2.02 l/min/m^2 Tricuspid Valve TR Velocity: 2.41 m/s TR Gradient: 23.22 mmHg Procedure Note Interface, External Ris In - 06/18/2017 6:19 PM CDT Transthoracic Echocardiography Report (TTE) Demographics Patient Name TERRELL PALUMBO Date of Study 06/18/2017 CAN Gender Male Visit Number [id number] Race Unknown Room Number 2211 Number Date of 1960 Referring [facility] Physician Tarsha Yoder Age 57 year(s) 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 Clinical History CANCER, STROKE, DIABETES, HTN HGB 11.0 HCT 36.6 % Contrast Medium: Definity. Amount - 2 ml Height: 76 inches Weight: 126.55 kg (279 lbs) BSA: 2.55 m^2 BMI: 33.96 kg/m^2 HR: 68 bpm BP: 106/66 mmHg Summary IV saline contrast injection was negative for a PFO (patent foramen ovale) at rest and post Valsalva. The intraatrial septum is well visualized. Normal intraatrial septum by available views. Left ventricular endocardium is incompletely visualized with IV contrast. LV chamber size is normal (male - LVED vol 34-74ml/m2). There is no LV hypertrophy. All of the segments appear to contract normally. Estimated ejection fraction by Santoyo's biplane method is normal (>60%). Diastolic dysfunction is grade 1 (impaired relaxation). Previous Study In comparison with the prior exam on 01/25/17 the following changes are noted: LVEF has improved. Signature Findings Rhythm/BP Normal sinus rhythm during the exam. Left Ventricle Left ventricular endocardium is incompletely visualized with IV contrast. LV chamber size is normal (male - LVED vol 34-74ml/m2). There is no LV hypertrophy. All of the segments appear to contract normally. Estimated ejection fraction by Santoyo's biplane method is normal (>60%). Diastolic dysfunction is grade 1 (impaired relaxation). Left Atrium Left atrium is adequately visualized. Left atrial size is normal (16-34 mL/m2). Right Ventricle RV appears mildly enlarged measuring >2/3 the size of the LV on apical views. but modified view (may be normal) Right Atrium Right atrial size is normal. Atrial Septum IV saline contrast injection was negative for a PFO (patent foramen ovale) at rest and post Valsalva. The intraatrial septum is well visualized. Normal intraatrial septum by available views. Aortic Valve Normal aortic valve structure. No aortic stenosis. No aortic regurgitation. Mitral Valve Normal mitral structure. No mitral stenosis. No mitral regurgitation. Tricuspid Valve Tricuspid structure is normal. Mild tricuspid regurgitation. Pulmonary artery systolic pressure is estimated at 23 mmHg + right atrial pressure. Pulmonic Valve Normal pulmonic valve structure and function. Aorta Aortic root size (sinus of Valsalva diameter) is normal. Visualized aortic arch is normal. Pericardium No pericardial effusion is visualized. IVC/SVC/PA/PV/Pleural The inferior vena cava is not well visualized. Unable to estimate right atrial pressure. Chambers/Structures Left Atrium LA Volume: 47.01 ml LA Area: 17.82 cm^2 LA Vol. Index: 18 ml/m^2 Left Ventricle LVIDd: 2.68 cm LVIDs: 0.96 cm LV Septum Diastolic: 1.69 cm LV Septum Systolic: 2.54 cm LV FS: 64.2 % LV PW Diastolic: 1.36 cm LV PW Systolic: 2.07 cm LVEDVI: 40 ml/m^2 LVEDV Santoyo's:102.54 ml LVESVI: 5 ml/m^2 LVESV Santoyo's:13.34 ml LVEF Santoyo's: 87 % LVOT Diameter: 2.08 cm Doppler/Quantitative Measurements Mitral Valve MV Peak E-Wave: 0.61 m/s MV Peak A-Wave: 0.87 m/s E/A Ratio: 0.7 Peak Gradient: 1.49 mmHg Deceleration Time: 350 msec MV Chucho. Peak: Tissue Doppler E' Septal Velocity: 0.12 m/s E/E': 2.93 E' Lateral Velocity: 0.21 m/s Aortic Valve Peak Velocity: 1.17 m/s Mean Velocity: 0.87 m/s Peak Gradient: 5.49 mmHg Mean Gradient: 3.38 mmHg AV Area (continuity): 3.58 cm^2 AV VTI: 21.11 cm AV DVI: 1.06 LVOT Peak Velocity: 1.31 m/s Peak Gradient: 6.84 mmHg Mean Velocity: 0.9 m/s Mean Gradient: 3.74 mmHg LVOT Diameter: 2.08 cm LVOT VTI: 22.28 cm LVOT Area: 3.4 cm^2 LVOT SV:75.67 ml LVOT CO: 5.15 l/min LVOT CI: 2.02 l/min/m^2 Tricuspid Valve TR Velocity: 2.41 m/s TR Gradient: 23.22 mmHg CBC with platelet count + automated diff (06/18/2017 6:19 AM)Only the most recent of55 resultswithin the time period is included. Component Value Ref Range WBC 7.8 3.5 - 10.5 K/L RBC 4.15 (L) 4.63 - 6.08 M/L Hemoglobin 11.0 (L) 13.7 - 17.5 GM/DL Hematocrit 36.6 (L) 40.1 - 51.0 % MCV 88.2 79.0 - 92.2 fL MCH 26.5 25.7 - 32.2 pg MCHC 30.1 (L) 32.3 - 36.5 GM/DL RDW 15.9 (H) 11.6 - 14.4 % Platelets 319 150 - 450 K/CU MM MPV 9.4 9.4 - 12.4 fL nRBC 0 0 - 0 /100 WBC % Neutros 69 % % Lymphs 18 % % Monos 10 % % Eos 2 % % Baso 0 % # Neutros 5.33 1.78 - 5.38 K/L # Lymphs 1.40 1.32 - 3.57 K/L # Monos 0.78 0.30 - 0.82 K/L # Eos 0.18 0.04 - 0.54 K/L # Baso 0.02 0.01 - 0.08 K/L Immature Granulocytes-Relative 1 0 - 1 % Specimen Performing Laboratory Blood [facility] [address] [address] CBC with platelet count + automated diff (06/18/2017 6:19 AM)Only the most recent of55 resultswithin the time period is included. Specimen Performing Laboratory Blood Narrative The following orders were created for panel order CBC with platelet count + automated diff. Procedure Abnormality Status --------- ------ CBC with platelet count ...[[id number]]AbnormalFinal result Please view results for these tests on the individual orders. ECG 12 lead (06/17/2017 4:12 PM)Only the most recent of13 resultswithin the time period is included. Specimen Performing Laboratory GE MUSE Narrative Ventricular Rate 79 BPM Atrial Rate 79 BPM P-R Interval 178 ms QRS Duration 132 ms Q-T Interval 382 ms QTC Calculation(Bazett) 438 ms P Buckland 8 degrees R Buckland -11 degrees T Buckland -34 degrees Normal sinus rhythm Right bundle branch block T wave abnormality, consider inferolateral ischemia Abnormal ECG When compared with ECG of 22-FEB-2017 05:52, Right bundle branch block is now Present Confirmed by MD MEREDITH, IHAB ([id number]) on 06/17/2017 10:12:00 PM Procedure Note Interface, External Ris In - 06/17/2017 10:12 PM CDT Ventricular Rate 79 BPM Atrial Rate 79 BPM P-R Interval 178 ms QRS Duration 132 ms Q-T Interval 382 ms QTC Calculation(Bazett) 438 ms P Buckland 8 degrees R Buckland -11 degrees T Buckland -34 degrees Normal sinus rhythm Right bundle branch block T wave abnormality, consider inferolateral ischemia Abnormal ECG When compared with ECG of 22-FEB-2017 05:52, Right bundle branch block is now Present Confirmed by MD MEREDITH, IHAB ([id number]) on 06/17/2017 10:12:00 PM EEG AWAKE AND DROWSY (06/17/2017 3:08 PM)Only the most recent of2 resultswithin the time period is included. Specimen Performing Laboratory GE RIS Narrative Date(s) of EE06/17/17 DATE OF REPORT: 06/17/17 ACC: [id number] EEG Number: [id number] Test Location: Inpatient Room Start time: 14:45 Stop time: 15:06 ICD-10: G93.40 CPT Code: 69747 HISTORY: 57 y.o. w/ PMH of HTN, HLD, hypothyroidism, migraines, previous TIA &?stroke w/ unknown residual, paroxysmal afib (on eliquis) and rectal cancer (diagnosed 2017) who presented w/ persistent altered mental status MEDICATIONS THAT COULD AFFECT EEG: None TECHNICAL SUMMARY: This is a digital video-EEG recorded with 32 input channels reviewed with bipolar and referential montages using the modified combinatorial system nomenclature. DESCRIPTION OF RECORD: During the maximally stimulated state, a sporadic, moderate amplitude occipital dominant rhythm of 6-7 Hz activity is evident bilaterally. More anteriorly, similar as well as faster frequency distributions occur. The awake background is further admixed with large amounts of 5-7 Hz theta and some 1.5 to 3 Hz scattered, but fronto-centrally predominant, semi-rhythmic slow wave activities. Sleep structures were not seen in this recording SIGNIFICANT VIDEO EVENTS: None SIGNIFICANT ELECTROCARDIOGRAM EVENTS: None HV: Hyperventilation was not performed. PHOTIC STIMULATION: Photic stimulation was not performed. IMPRESSION: Abnormal Awake EEG 1. Generalized, continuous, Theta and Delta slowing. Reactive. CLINICAL CORRELATION: The EEG findings of diffuse slowing are consistent with a mild to moderate encephalopathy. An EEG without epileptiform discharges does not exclude the possibility of epilepsy. If the clinical suspicion of epilepsy remains, consider additional EEG recordings. Leo Brandon MD Neurophysiology Fellow, PGY5 Timi Oquendo MD, MS Clinical Neurophysiology/Epilepsy Attending Procedure Note Interface, External Ris In - 06/17/2017 4:27 PM CDT Date(s) of EE06/17/17 DATE OF REPORT: 06/17/17 ACC: [id number] EEG Number: [id number] Test Location: Inpatient Room Start time: 14:45 Stop time: 15:06 ICD-10: G93.40 CPT Code: 21249 HISTORY: 57 y.o. w/ PMH of HTN, HLD, hypothyroidism, migraines, previous TIA &?stroke w/ unknown residual, paroxysmal afib (on eliquis) and rectal cancer (diagnosed 2017) who presented w/ persistent altered mental status MEDICATIONS THAT COULD AFFECT EEG: None TECHNICAL SUMMARY: This is a digital video-EEG recorded with 32 input channels reviewed with bipolar and referential montages using the modified combinatorial system nomenclature. DESCRIPTION OF RECORD: During the maximally stimulated state, a sporadic, moderate amplitude occipital dominant rhythm of 6-7 Hz activity is evident bilaterally. More anteriorly, similar as well as faster frequency distributions occur. The awake background is further admixed with large amounts of 5-7 Hz theta and some 1.5 to 3 Hz scattered, but fronto-centrally predominant, semi-rhythmic slow wave activities. Sleep structures were not seen in this recording SIGNIFICANT VIDEO EVENTS: None SIGNIFICANT ELECTROCARDIOGRAM EVENTS: None HV: Hyperventilation was not performed. PHOTIC STIMULATION: Photic stimulation was not performed. IMPRESSION: Abnormal Awake EEG 1. Generalized, continuous, Theta and Delta slowing. Reactive. CLINICAL CORRELATION: The EEG findings of diffuse slowing are consistent with a mild to moderate encephalopathy. An EEG without epileptiform discharges does not exclude the possibility of epilepsy. If the clinical suspicion of epilepsy remains, consider additional EEG recordings. Leo Brandon MD Neurophysiology Fellow, PGY5 Timi Oquendo MD, MS Clinical Neurophysiology/Epilepsy Attending brain without IV contrast (06/17/2017 10:18 AM)Only the most recent of2 resultswithin the time period is included. Specimen Performing Laboratory [facility] Narrative FINAL REPORT CT head without contrast 06/17/2017 10:39 AM CLINICAL HISTORY: ich TECHNIQUE: Axial noncontrast CT images through the head were obtained. This examination was performed according to our departmental dose optimization program, which includes automated exposure control, adjustment of the mA and/or kV according to patient size, and/or use of iterated reconstruction technique. COMPARISON: MRI brain 06/16/2017 FINDINGS: There is no hemorrhage, extra-axial collection, mass, hydrocephalus, or midline shift. There is relatively extensive microvascular microvascular and/or hypertensive encephalopathy in the supratentorial white matter, deep kilgore nuclei, and alejandro. There is generalized parenchymal volume loss. The visualized paranasal sinuses and mastoid air cells are well aerated. The skull is intact. IMPRESSION: No intracranial hemorrhage or mass effect. Stable intracranial appearance when compared to 06/16/2017. Signed: Brigitte Hinds MD Report Verified Date/Time:06/17/2017 10:41:30 Reading Location: [address] Neuro Reading Room Procedure Note Interface, External Ris In - 06/17/2017 10:43 AM CDT FINAL REPORT CT head without contrast 06/17/2017 10:39 AM CLINICAL HISTORY: ich TECHNIQUE: Axial noncontrast CT images through the head were obtained. This examination was performed according to our departmental dose optimization program, which includes automated exposure control, adjustment of the mA and/or kV according to patient size, and/or use of iterated reconstruction technique. COMPARISON: MRI brain 06/16/2017 FINDINGS: There is no hemorrhage, extra-axial collection, mass, hydrocephalus, or midline shift. There is relatively extensive microvascular microvascular and/or hypertensive encephalopathy in the supratentorial white matter, deep kilgore nuclei, and alejandro. There is generalized parenchymal volume loss. The visualized paranasal sinuses and mastoid air cells are well aerated. The skull is intact. IMPRESSION: No intracranial hemorrhage or mass effect. Stable intracranial appearance when compared to 06/16/2017. Signed: Brigitte Hinds MD Report Verified Date/Time: 06/17/2017 10:41:30 Reading Location: [facility] C013V Neuro Reading Room Anti-Neutrophil Cytoplasmic Ab (ANCA) (06/17/2017 3:46 AM) Component Value Ref Range Proteinase-3 Ab <1.0 <1.0 AI Comment: <1.0 AI No Antibody Detected > or=1.0 AI Antibody Detected Autoantibodies to proteinase-3 (FL-3) are accepted as characteristic for granulomatosis with polyangiitis (GPA, Anamaria's), and are detectable in 95% of the histologically proven cases. The cytoplasmic IFA pattern, (c-ANCA), is based largely on autoantibody to FL-3 which serves as the primary antigen. These autoantibodies are present in active disease. Myeloperoxidase Ab <1.0 <1.0 AI Comment: <1.0 AI No Antibody Detected > or=1.0 AI Antibody Detected Autoantibodies to myeloperoxidase (MPO) are commonly associated with the following small-vessel vasculitides: microscopic polyangiitis, polyarteritis nodosa, Churg-Tamara syndrome, necrotizing and crescentic glomerulonephritis and occasionally granulomatosis with polyangiitis (GPA, Anamaria's). The perinuclear IFA pattern, (p-ANCA) is based largely on autoantibody to myeloperoxidase which serves as the primary antigen. These autoantibodies are present in active disease. Specimen Performing Laboratory Blood [facility] [address] [address] Narrative Performing Lab E[facility] [address] [address] Beatriz Sommers MD, PhD, [place] Histone Antibody, IgG (06/17/2017 3:45 AM) Component Value Ref Range Histone Ab <1.0 U Comment: Reference Ranges for Histone Antibodies: <1.0 Negative 1.0-1.5Weak Positive 1.6-2.5Moderate Positive >2.5 Strong Positive Specimen Performing Laboratory Blood - Arm, [facility] [address] [address] Narrative Performing Lab EZ [facility] [address] [address] Beatriz Sommers MD, PhD, [place] Anti-ADEN Ab (RNA, Martinez) (06/17/2017 3:45 AM) Component Value Ref Range Sm Antibody <1.0 NEG <1.0 NEGATIVE AI Sm/[employer]IT [employer]ST[employer]ER Antibody <1.0 NEG <1.0 NEGATIVE AI Specimen Performing Laboratory Blood - Arm, [facility] [address] [address] Narrative Performing Lab EZ [facility] [address] [address] Beatriz Sommers MD, PhD, [place] Double-Stranded DNA (dsDNA) Antibody (06/17/2017 3:45 AM) Component Value Ref Range ds DNA Ab Negative Specimen Performing Laboratory Blood - Arm, [address] [address] Complement Component C3 (06/17/2017 3:45 AM) Component Value Ref Range C3 Complement 131 82 - 193 mg/dL Specimen Performing Laboratory Blood - Arm, [address] [address] Complement Component C4 (06/17/2017 3:45 AM) Component Value Ref Range C4 Complement 34 15 - 57 mg/dL Specimen Performing Laboratory Blood - Arm, [address] [address] Anti-Nuclear Antibody (PER) (06/17/2017 3:45 AM) Component Value Ref Range PER Negative Negative Specimen Performing Laboratory Blood - [facility], [address] [address] T3 (06/17/2017 3:45 AM) Component Value Ref Range T3, Total 53 48 - 159 ng/dL Specimen Performing Laboratory Blood - Arm, [address] [address] T4, free (06/17/2017 3:45 AM)Only the most recent of2 resultswithin the time period is included. Component Value Ref Range Free T4 2.36 (H) 0.70 - 1.48 ng/dL Specimen Performing Laboratory Blood - Arm, [address] [address] Phosphorus (06/17/2017 3:45 AM)Only the most recent of55 resultswithin the time period is included. Component Value Ref Range Phosphorus 3.2 2.3 - 4.7 mg/dL Specimen Performing Laboratory Blood [address] [address] Magnesium (06/17/2017 3:45 AM)Only the most recent of56 resultswithin the time period is included. Component Value Ref Range Magnesium 1.8 1.6 - 2.6 mg/dL Specimen Performing Laboratory Blood - [address] [address] MR brain without & with IV contrast (06/16/2017 11:47 AM) Specimen Performing Laboratory [facility] Narrative FINAL REPORT MRI Brain with and without contrast INDICATION: Decreased alertness. TECHNIQUE: Multiplanar, multisequence MR imaging of the brain was performed, utilizing the following imaging sequences: Axial T1, T2, FLAIR, DWI, GRE; sagittal T1; postcontrast axial, sagittal, and coronal T1. COMPARISON: MRI brain 02/03/2017, CT head 01/29/2017 FINDINGS: The exam is motion degraded, despite sedation, particularly post contrast imaging. Abnormalities may be obscured. There are recent small nonhemorrhagic infarcts in the left frontal blevins radiata, right precentral gyrus subcortical white matter, left parietal subcortical white matter, and right thalamus superimposed on extensive chronic microvascular disease and/or chronic hypertensive encephalopathy, including in the deep kilgore nuclei and brainstem, with deep kilgore nuclei and periventricular lacunar infarcts. There are scattered chronic hemorrhages. A few foci of susceptibility artifact such as in the right anterior hippocampus, right thalamus, and right frontal and parietal lobes are new since 02/03/2017. No hematoma, extra-axial collection, hydrocephalus, or mass effect is seen. The major vascular flow voids are maintained. There is generalized parenchymal volume loss. Allowing for artifact, no suspicious intracranial enhancement is seen. There is mild chronic multifocal sinus mucosal disease with well aerated mastoid air cells. Small nasopharyngeal mucous retention or Tornwaldt cyst are present. The sella, craniocervical junction, orbits, and calvarium are unremarkable. IMPRESSION: 1. Recent small nonhemorrhagic infarcts in the left frontal blevins radiata, right precentral gyrus and left parietal white matter, and right thalamus superimposed on extensive chronic microvascular disease and/or chronic hypertensive encephalopathy. 2. Scattered chronic hemorrhages, and a few foci of susceptibility artifact that are new since 02/03/2017. Although these could also reflect chronic hemorrhages, head CT follow up is suggested to exclude small acute hemorrhagic foci. No resultant mass effect. 3. Additional chronic and involutional findings as discussed. 4. Motion degraded exam. Signed: Kartik Reddy MD Report Verified Date/Time:06/16/2017 11:52:47 Reading Location: [address] Neuro Reading Room Procedure Note Interface, External Ris In - 06/16/2017 11:54 AM CDT FINAL REPORT MRI Brain with and without contrast INDICATION: Decreased alertness. TECHNIQUE: Multiplanar, multisequence MR imaging of the brain was performed, utilizing the following imaging sequences: Axial T1, T2, FLAIR, DWI, GRE; sagittal T1; postcontrast axial, sagittal, and coronal T1. COMPARISON: MRI brain 02/03/2017, CT head 01/29/2017 FINDINGS: The exam is motion degraded, despite sedation, particularly post contrast imaging. Abnormalities may be obscured. There are recent small nonhemorrhagic infarcts in the left frontal blevins radiata, right precentral gyrus subcortical white matter, left parietal subcortical white matter, and right thalamus superimposed on extensive chronic microvascular disease and/or chronic hypertensive encephalopathy, including in the deep kilgore nuclei and brainstem, with deep kilgore nuclei and periventricular lacunar infarcts. There are scattered chronic hemorrhages. A few foci of susceptibility artifact such as in the right anterior hippocampus, right thalamus, and right frontal and parietal lobes are new since 02/03/2017. No hematoma, extra-axial collection, hydrocephalus, or mass effect is seen. The major vascular flow voids are maintained. There is generalized parenchymal volume loss. Allowing for artifact, no suspicious intracranial enhancement is seen. There is mild chronic multifocal sinus mucosal disease with well aerated mastoid air cells. Small nasopharyngeal mucous retention or Tornwaldt cyst are present. The sella, craniocervical junction, orbits, and calvarium are unremarkable. IMPRESSION: 1. Recent small nonhemorrhagic infarcts in the left frontal blevins radiata, right precentral gyrus and left parietal white matter, and right thalamus superimposed on extensive chronic microvascular disease and/or chronic hypertensive encephalopathy. 2. Scattered chronic hemorrhages, and a few foci of susceptibility artifact that are new since 02/03/2017. Although these could also reflect chronic hemorrhages, head CT follow up is suggested to exclude small acute hemorrhagic foci. No resultant mass effect. 3. Additional chronic and involutional findings as discussed. 4. Motion degraded exam. Signed: Kartik Reddy MD Report Verified Date/Time: 06/16/2017 11:52:47 Reading Location: [address] Neuro Reading Room Urinalysis w/ Microscopic (06/15/2017 1:21 PM)Only the most recent of2 resultswithin the time period is included. Component Value Ref Range Color, UA Yellow Clarity, UA Clear Specific [place], UA 1.022 1.001 - 1.035 pH, UA 6.0 5.0 - 8.0 Protein, UA 30 mg/dL (A) Negative Glucose, UA Negative Negative Ketones, UA 60 mg/dL (A) Negative Bilirubin, UA Negative Negative Blood, UA Moderate (A) Negative Nitrite, UA Negative Negative Leukocytes, UA Negative Negative Urobilinogen, UA 2.0 (H) 0.2 - 1.0 mg/dL RBC, UA >182 /HPF WBC, UA 2 /HPF Mucus Occasional Squam Epithel, UA <1 /HPF Specimen Source Urine, Straight Catheter Specimen Performing Laboratory Urine - Urine, Straight Catheter [address] [address] Urine culture (06/15/2017 1:21 PM)Only the most recent of4 resultswithin the time period is included. Component Value Ref Range Result No growth Specimen Performing Laboratory Urine - Urine, Straight Catheter [address] [address] Ammonia (06/15/2017 8:11 AM)Only the most recent of3 resultswithin the time period is included. Component Value Ref Range Ammonia 28 18 - 72 mol/L Specimen Performing Laboratory Blood [address] [address] Vitamin B12 and Folate (06/15/2017 5:56 AM) Component Value Ref Range Vitamin B12 1336 (H) 213 - 816 pg/mL Folate 9.9 >=7.0 ng/mL Specimen Performing Laboratory Blood [address] [address] HIV-1 Antigen with HIV-1/2 Antibody (06/15/2017 5:56 AM) Component Value Ref Range HIV-1 Antigen with HIV 1&2 Antibody Nonreactive Nonreactive Specimen Performing Laboratory Blood [address] [address] C-Reactive Protein (06/15/2017 5:56 AM) Component Value Ref Range CRP 11.36 (H) 0.00 - 0.50 mg/dL Specimen Performing Laboratory Blood [address] [address] Blood culture #1 (06/15/2017 5:56 AM)Only the most recent of15 resultswithin the time period is included. Component Value Ref Range Result No growth in 5 days Specimen Performing Laboratory Blood - Arm, Right [address] [address] Sedimentation rate (06/15/2017 5:56 AM) Component Value Ref Range Sed Rate 62 (H) 0 - 20 mm/HR Specimen Performing Laboratory Blood [address] [address] TSH (06/15/2017 5:56 AM)Only the most recent of3 resultswithin the time period is included. Component Value Ref Range TSH 0.02 (L) 0.35 - 4.94 uIU/mL Specimen Performing Laboratory Blood [address] [address] Hemoglobin A1c (06/15/2017 5:56 AM)Only the most recent of2 resultswithin the time period is included. Component Value Ref Range Hemoglobin A1C 6.5 (H) 4.3 - 6.1 % Specimen Performing Laboratory Blood [address] [address] Lipid panel (06/15/2017 5:56 AM) Component Value Ref Range Triglycerides 109 mg/dL Cholesterol 75 mg/dL HDL 21 mg/dL LDL Calculated 32 mg/dL Specimen Performing Laboratory Blood [address] [address] Narrative Triglyceride Reference Range: Low Risk <150 [id number] High Risk 200-499 Very High Risk>=500 Cholesterol Reference Range: Low Risk <200 [id number] High Risk>240 HDL Cholesterol Reference Range: Low Risk >=60 High Risk <40 LDL Cholesterol Reference Range: Optimal<100 Near [id number] [id number] Kobz304-781 Very High >=190 Calcium, Ionized (03/14/2017 2:31 PM)Only the most recent of51 resultswithin the time period is included. Component Value Ref Range Calcium, Ion 1.00 (L) 1.12 - 1.27 mmol/L pH, Blood 7.47 Specimen Performing Laboratory [address] [address] FL esoph swallow funct with cine video [...] MD Report Verified Date/Time:03/14/2017 11:29:44 Reading Location: [facility] C0[facility] Ortho Consult Reading Room Procedure Note Interface, External Ris In - 03/14/2017 11:31 AM DIRECTOR MEDICAL SCIENCE FINAL REPORT Modified barium swallow Reason for [...] Report Verified Date/Time: 03/14/2017 11:29:44 Reading Location: [address] Ortho Consult Reading Room Occult blood, stool (03/14/2017 7:02 AM)Only the most recent of10 resultswithin the time period is included. Component Value Ref Range Occult blood Negative Negative Specimen Performing Laboratory Stool [address] [address] CBC (Hemogram only) (03/10/2017 3:49 AM)Only the [...] /100 WBC Specimen Performing Laboratory Blood [facility] [address] [address] XR abdomen / KUB 1 view (03/07/2017 [...] MD Report Verified Date/Time:03/07/2017 08:38:07 Reading Location: [facility] Reading Room Procedure Note Interface, External Ris In - 03/07/2017 8:40 AM DIRECTOR MEDICAL SCIENCE FINAL REPORT EXAM: AP abdominal radiograph HISTORY [...] Report Verified Date/Time: 03/07/2017 08:38:07 Reading Location: [facility] Reading Room SFUSION SERVICE REPORT - SCAN (03/06/2017 5:40 PM)Only the most recent of2 resultswithin the time period is included.IR G-Tube Insertion w/Fluoro (2017 2:05 PM) Specimen Performing Laboratory [facility] Narrative FINAL REPORT Fluoroscopic guided gastrostomy tube placement. Modality: Fluoroscopy. Grinding Operator:Talat Hare MD. Field Control Inspector:None. Sedation: Moderate sedation was administered. 1 mg of Versed and75 mcg of fentanyl IV was used for moderate sedation monitored under my direction. Total intra-service time of sedation [id number]. The patient's vital signs were monitored throughout [...] After the tract was dilated, a 14 Latvian catheter was placed into the stomach. The [...] MD Report Verified Date/Time:03/08/2017 09:01:42 Reading Location: [place] [id number] Angio Body Reading Room Procedure Note Interface, External Ris In - 03/19/2017 10:32 AM DIRECTOR MEDICAL SCIENCE FINAL REPORT Fluoroscopic guided gastrostomy tube placement. Modality: Fluoroscopy. Grinding Operator: Talat Hare MD. Field Control Inspector: None. Sedation: Moderate sedation was administered. 1 [...] After the tract was dilated, a 14 Latvian catheter was placed into the stomach. The [...] Report Verified Date/Time: 03/08/2017 09:01:42 Reading Location: [place] [address] Angio Body Reading Room aPTT (03/06/2017 4:55 AM)Only the most recent of32 resultswithin the time period is included. Component Value Ref Range PTT 48.5 (H) 22.5 - 36.0 seconds Specimen Performing Laboratory Blood [address] [address] Prothrombin time/INR (03/06/2017 4:55 AM)Only the most recent of21 resultswithin the time period is included. Component Value Ref Range Protime 16.6 (H) 11.7 - 14.7 seconds INR 1.4 <=5.9 Specimen Performing Laboratory Blood [address] [address] Narrative RECOMMENDED COUMADIN/WARFARIN INR THERAPY RANGES STANDARD [...] Ab Scrn NEGATIVE Specimen Performing Laboratory Blood [facility] [address] [place] [address] XR chest 1 view portable / bedside [...] MD Report Verified Date/Time:03/03/2017 14:20:07 Reading Location: [address] Ortho Consult Reading Room Procedure Note Interface, External Ris In - 03/03/2017 2:22 PM DIRECTOR MEDICAL SCIENCE FINAL REPORT CHEST ONE VIEW HISTORY: Nasogastric [...] Report Verified Date/Time: 03/03/2017 14:20:07 Reading Location: [facility] C013X Ortho Consult Reading Room /Free T4 If Indicated (03/02/2017 4:46 AM)Only the most recent of2 resultswithin the time period is included. Component Value Ref Range TSH 0.38 0.35 - 4.94 uIU/mL Specimen Performing Laboratory Blood - Line, Venous [facility] [address] [place] [address] Manual Differential (02/28/2017 3:59 AM)Only the most recent of22 resultswithin the time period is included. Specimen Performing Laboratory Blood - Line, Venous [place] [id number] [place] [address] PERIPHERAL VASCULAR REPORT - SCAN (02/23/2017 7:20 AM)Only the most recent of2 resultswithin the time period is included.Arterial doppler legs bilateral (02/22 3:50 PM) Component Value Ref Range Ejection Fraction Specimen Performing Laboratory [facility] Impressions Right Impression 1. The common femoral, [...] + + + + + + !Prox MINE PATROL ! !147 !36.1! ! !71.5!18.1! ! + + + + + + + + + + !Mid MINE PATROL ! !113 !34.6! ! !101 !11! ! + + + + + + + + + + !Dist MINE PATROL ! !155 !36.9! ! !96.6!15.7! ! + [...] of Study 02/22/2017 CAN Age 57 Visit [id number] Gender Male Date of [birth year] Number Referring Mor Santillan Room Number [id number] Physician Board Liner Operator Burak Jaramillo. Marcia Serrato MD, [place] Arroyo [...] External Ris In - 02/23/2017 6:20 AM DIRECTOR MEDICAL SCIENCE PV LAB - Lower Extremity Arterial Duplex Demographics Patient Name TERRELL PALUMBO Date of Study 02/22/2017 CAN Age 57 Visit Number [id number] Gender Male Date of 1960 Number Referring Mor Santillan Room Number [id number] Physician Board Liner Operator Burak Sharma T Physician , [place]o [...] + + + +-------- + + !Prox MINE PATROL ! !147 !36.1 ! ! !71.5 !18.1 ! ! + + + ------+ + + + +-------- + + !Mid MINE PATROL ! !113 !34.6 ! ! !101 !11 ! ! + + + ------+ + + + +-------- + + !Dist MINE PATROL ! !155 !36.9 ! ! !96.6 !15.7 [...] Specimen Performing Laboratory Blood - Arm, [place] [address] Troponin I (02/22/2017 6:52 AM)Only the most recent of4 resultswithin the time period is included. Component Value Ref Range Troponin I <0.01 0.00 - 0.03 ng/mL Specimen Performing Laboratory Blood - Line, Venous [address] [address] Narrative Troponin I (TnI) levels must be [...] acidosis, acute neurological disease, and persistent tachyarrhythmia. Blood gas, arterial (02/21/2017 9:59 PM)Only the [...] Performing Laboratory Blood, Arterial - Line, Arterial [address] [address] Digoxin level (02/21/2017 11:00 AM)Only the most recent of2 resultswithin the time period is included. Component Value Ref Range Digoxin Lvl 0.9 0.8 - 2.0 ng/mL Specimen Performing Laboratory Blood - Line, Venous [address] [address] [address] abdomen/pelvis with IV contrast (02/15/2017 5:02 [...] MD Report Verified Date/Time:02/15/2017 18:36:50 Reading Location: [facility] C013Y CT Body Reading Room Procedure Note Interface, External Ris In - 02/15/2017 6:39 PM DIRECTOR MEDICAL SCIENCE FINAL REPORT ABDOMINAL AND PELVIS CT DATED [...] Report Verified Date/Time: 02/15/2017 18:36:50 Reading Location: [facility] C0[facility] CT Body Reading Room Heparin Assay - Low Molecular Weight (02/14/2017 2:37 PM)Only the most recent of3 resultswithin the time period is included. Component Value Ref Range Anti 10A-Lovenox 0.85 0.60 - 2.00 u/ml Specimen Performing Laboratory Blood [facility] [address] [address] Narrative Anti-Factor 10-A Level (Heparin Assay for Low Molecular Weight Heparin) Monitoring Guidelines: Blood samples should be obtained 4 hours post subcutaneous injection (time of Peak level) Therapeutic Peak Levels: 0.6-1.0 units/mLtwice daily enoxaparin 1.0-2.0 units/mLonce daily enoxaparin Ref: CHEST 2012;141:[id number] Please draw 5 hours after Lovenox administration. Thank you! INTRAOPERATIVE PATH REPORT - SCAN (02/11/2017 3:11 PM)BCID (02/09/2017 6:06 PM )Only the most recent of3 resultswithin the time period is included. Component Value Ref Range Scan Result Specimen [place] [address] Narrative Result comments: Coagulase Negative Staphylococcus Species [...] required. This sample was tested at the [facility] Clinical Microbiology Laboratory using the Decision Rocket Blood Culture ID Panel. This test is FDA cleared for in vitro diagnostic use and has been verified and approved by the [facility] Clinical Microbiologylaboratory for clinical use. Reference Range: Not Detected Sputum Culture + Gram Stain (02/08/2017 12:34 AM)Only the most recent of2 resultswithin the time period is included. Component Value Ref Range Result No growth Gram Stain Result 1+ WBCs Gram Stain Result 10-15 epithelial cells Gram Stain Result 1+ gram positive rods Gram Stain Result <1+ budding yeast Specimen Performing Laboratory Sputum - Suctioned [place] [id number] US abdomen limited (02/05/2017 3:36 AM) Specimen [...] MD Report Verified Date/Time:02/05/2017 04:24:48 Reading Location: [address] Body Reading Room Procedure Note Interface, External Ris In - 02/05/2017 4:26 AM DIRECTOR MEDICAL SCIENCE FINAL REPORT INDICATION: r/o acute cholecystitis due [...] Report Verified Date/Time: 02/05/2017 04:24:48 Reading Location: [facility] C0[facility] CT Body Reading Room RECORDING IN COMA/SLEEP ONLY (02/04/2017 11:39 AM) Specimen Performing Laboratory [facility] Narrative DATE OF EE02-04-2017 DATE OF REPORT: 02-04-2017 ACC: [id number] EE Start time: 11:17 Stop time: 11:38 ICD-10:R56.9 CPT Code: 79497 HISTORY: Encephalopathy, post rectal cancer surgery. MEDICATIONS THAT COULD AFFECT EEG: None TECHNICAL SUMMARY: This is a digital EEG recorded with 32 input channels on a [employer] system and then reviewed with bipolar and [...] Brandon MD Neurophysiology Fellow PGY5 Shad Jovel [facility] Neurophysiology/Epilepsy Attending Procedure Note Interface, External Ris In - 02/04/2017 1:28 PM DIRECTOR MEDICAL SCIENCE DATE OF EE02-04-2017 DATE OF REPORT: 02-04-2017 ACC: [id number] EE Start time: 11:17 Stop time: 11:38 ICD-10: R56.9 CPT Code: 48980 HISTORY: Encephalopathy, post rectal cancer surgery. MEDICATIONS THAT COULD AFFECT EEG: None TECHNICAL SUMMARY: This is a digital EEG recorded with 32 input channels on a [employer] system and then reviewed with bipolar and [...] Brandon MD Neurophysiology Fellow PGY5 Shad Jovel [facility] Neurophysiology/Epilepsy Attending brain without IV contrast (02/03/2017 12:15 PM) Specimen Performing Laboratory [facility] Narrative FINAL REPORT MRI brain Comparison: Head [...] MD Report Verified Date/Time:02/03/2017 13:09:03 Reading Location: [address] Neuro Reading Room Procedure Note Interface, External Ris In - 02/03/2017 1:11 PM DIRECTOR MEDICAL SCIENCE FINAL REPORT MRI brain Comparison: Head CT [...] Report Verified Date/Time: 02/03/2017 13:09:03 Reading Location: [address] Neuro Reading Room Comprehensive metabolic panel (02/03/2017 [...] DIALYSIS PATIENTS. Specimen Performing [place] [address] CT LIMITED/LOCALIZED FOLLOW-UP (02/02/2017 2:45 PM) Specimen [...] MD Report Verified Date/Time:02/02/2017 15:47:41 Reading Location: [facility] C0Y CT Body Reading Room Procedure Note Interface, External Ris In - 02/02/2017 3:56 PM DIRECTOR MEDICAL SCIENCE FINAL REPORT Limited CT of the pelvis [...] Report Verified Date/Time: 02/02/2017 15:47:41 Reading Location: [facility] C013Y CT Body Reading Room Clostridium difficile Toxin PCR (02/02/2017 12:30 PM)Only the most recent of2 resultswithin the time period is included. Component Value Ref Range C.Diff Toxin, PCR Not Detected Not Detected Specimen Performing Laboratory Stool - Colostomy [facility] [address] This qualitative real-time polymerase chain reaction [...] Color, UA Yellow Clarity, UA Hazy Specific [place], UA 1.022 1.001 - 1.035 pH, UA [...] Specimen Performing Laboratory Urine - Urine, Malhotra [address] [address] Hepatic function panel (01/31/2017 5:03 AM) Component [...] Specimen Performing Laboratory Blood - Line, Arterial [address] [address] [address] abdomen/pelvis without iv contrast (01/31/2017 1:29 AM) Specimen Performing Laboratory [facility] Narrative FINAL REPORT CT scan of the [...] MD Report Verified Date/Time:01/31/2017 02:14:26 Reading Location: [address] Ortho Consult Reading Room Procedure Note Interface, External Ris In - 01/31/2017 2:16 AM DIRECTOR MEDICAL SCIENCE FINAL REPORT CT scan of the abdomen [...] Report Verified Date/Time: 01/31/2017 02:14:26 Reading Location: [address] Consult Reading Room Lactic acid, venous, whole blood (01/30/2017 10:24 AM) Component Value Ref Range Lactate, Venous 1.5 0.5 - 2.2 mmol/L Specimen Performing Laboratory Blood [address] [address] Narrative Effective 06/29/2015: Units/Reference Range Change New: 0.5-2.2 mmol/LPrevious: 5-20 mg/dL Triglycerides (01/28/2017 4:58 PM) Component Value Ref Range Triglycerides 91 mg/dL Specimen Performing Laboratory Blood - Line, Arterial [facility] [address] [address] Narrative TRIGLYCERIDE REFERENCE RANGE Low Risk<150 Borderline Risk 150-199 High Dpxt580-663 Very High Risk >=500 PT/aPTT (01/27/2017 1:59 AM) Component Value Ref Range Protime 16.5 (H) 11.7 - 14.7 seconds INR 1.3 <=5.9 PTT 80.0 (H) 22.5 - 36.0 seconds Specimen Performing Laboratory Blood [address] [address] Narrative RECOMMENDED COUMADIN/WARFARIN INR THERAPY RANGES STANDARD [...] Index 0.2 % Specimen Performing Laboratory Blood [address] [address] Narrative CK-MB Reference Range: <6.7Normal 6.7-10.0Borderline >10.0 Abnormal Venous doppler legs bilateral (01/25/2017 3:55 PM) Component Value Ref Range Ejection Fraction Specimen Performing Laboratory [facility] ECHO HEARTLAB MKCKESSON CPACS Impressions Right Impression [...] of Study 01/25/2017 CAN Age 57 Visit [id number] Gender Male Date of [birth year] Number Referring [id number] Physician Board Liner Operator Stephanie Cifuentes InterpretingJMarcia Del Rosario MD, [place] [...] External Ris In - 01/25/2017 5:42 PM DIRECTOR MEDICAL SCIENCE PV LAB - Lower Extremities DVT Study Demographics Patient Name TERRELL PALUMBO Date of Study 01/25/2017 CAN Age 57 Visit Number [id number] Gender Male Date of 1960 Number Referring Stephany Barone Room Number [id number] Physician Board Liner Operator Stephanie Cifuentes Interpreting Jacque Sharma T Physician [...] - 19.4 ug/dL Specimen [place] [address] Vancomycin level, trough (01/25/2017 1:50 PM) Component Value Ref Range Vancomycin Tr 11.3 10.0 - 20.0 ug/mL Specimen [place] [address] Narrative Do not give scheduled vanc dose until level has returned. Hold dose if level is > 20. Thank you! Lactic acid, arterial, whole blood (01/25/2017 4:02 AM)Only the most recent of3 resultswithin the time period is included. Component Value Ref Range Lactate, Art 2.4 (H)Comment: Specimen slightly hemolyzed 0.5 - 2.2 mmol/L Specimen Performing Laboratory Blood, [address] [address] Narrative Effective 06/29/2015: Units/Reference Range Change New: 0.5-2.2 mmol/LPrevious: 5-20 mg/dL [facility] (ABG,NA,K,H&H,GLUCOSE) (01/24/2017 6:53 PM) Specimen Performing Laboratory Blood, Arterial Narrative The following orders were created for panel order [facility] (ABG,NA,K,H&H,GLUCOSE). Procedure Abnormality Status --------- ------ Blood gas, arterial[[id number]]AbnormalFinal result Sodium Na-Stat Lab[[id number]] AbnormalFinal result Potassium-Stat Lab[[id number]] NormalFinal result Glucose-Stat Lab[[id number]] AbnormalFinal result HGB/HCT (H&H)-Stat Lab[[id number]] Abnormal Final result Please view results for these tests on the individual orders. Potassium-Stat Lab (01/24/2017 6:53 PM) Component Value Ref Range Potassium 4.1 3.6 - 5.5 meq/L Specimen Performing Laboratory Blood, [address] [address] Sodium Na-Stat Lab (01/24/2017 6:53 PM) Component Value Ref Range Sodium 133 (L) 135 - 148 meq/L Specimen Performing Laboratory Blood, [address] [address] Glucose-Stat Lab (01/24/2017 6:53 PM) Component Value Ref Range Glucose 280 (H) 70 - 110 mg/dL Specimen Performing Laboratory Blood, [address] [address] HGB/HCT (H&H)-Stat Lab (01/24/2017 6:53 PM) Component Value Ref Range Hemoglobin 18.0 (H) 13.0 - 16.8 g/dL Hematocrit 53.0 (H) 40.0 - 50.0 % Specimen Performing Laboratory Blood, Arterial [address] [address] AFB culture + smear (01/24/2017 6:37 PM) Component Value Ref Range Result No acid-fast bacilli isolated in 42 days AFB Smear No acid fast bacilli seen Specimen Performing Laboratory Wound - Abdominal Cavity [address] [address] Anaerobic culture (01/24/2017 6:37 PM) Component Value Ref Range Result Result 2+ Bacteroides fragilis group (A) Specimen Performing Laboratory Wound - Abdominal Cavity [address] [address] Surgically obtained culture + gram stain (01/24/2017 [...] chains Specimen Performing Laboratory Wound - Abdominal [address] [address] Organism Antibiotic Method Susceptibility Escherichia coli Amikacin <=2: Susceptible Comment: This is a corrected result. Previous result was Susceptible on 2016 at 1650 DIRECTOR MEDICAL SCIENCE Escherichia coli Ampicillin + Sulbactam 16: Resistant [...] Performing Laboratory Body Fluid - Abdominal Cavity [address] [address] SPIN/CONCENTRATION CHARGE (01/24/2017 6:37 PM) Component Value Ref Range Concentration charged Done Specimen Performing Laboratory Wound - Abdominal Cavity [address] [address] [address] chest with IV contrast (01/24/2017 3:00 PM) Specimen Performing Laboratory [facility] RIS Narrative FINAL REPORT CT of the [...] MD Report Verified Date/Time:01/24/2017 16:23:54 Reading Location: [address] Body Reading Room Procedure Note Interface, External Ris In - 01/24/2017 4:26 PM DIRECTOR MEDICAL SCIENCE FINAL REPORT CT of the Chest, abdomen [...] Report Verified Date/Time: 01/24/2017 16:23:54 Reading Location: [facility] C013Y CT Body Reading Room Blood gas, venous (01/23/2017 3:25 AM) Component [...] FIO2 100.0 % Specimen Performing Laboratory Blood [facility] [address] [address] Tissue Exam (01/21/2017 6:28 PM) Component Value Ref Range Case Report Surgical Pathology Report Case: [id number] Authorizing Provider:Clemente Moreno MDCollected: 01/21/2017 1828 Ordering Location: [facility] PERIOPERATIVE Received: 01/21/2017 1839 SERVICES Pathologist: [...] TUMOR PRESENT Signing Pathologist Direct Phone Line: [phone] SYNOPTIC REPORT COLON AND RECTUM: Resection, Including [...] No regional lymph node metastasis CPT Code(s) 10172 50571 16589 [id number] x 3 CLINICAL HISTORY Rectal cancer GROSS [...] 1 cm in greatest dimension. Ink code [place]: Mesenteric margin Black: Radial margin Legislators sections are submitted. Section code: A1: distal margin; A2: proximal margin; A3: mesenteric margin; A4: section of tumor with deepest invasion; A5: tumor to normal appearing mucosa; A6: radial margin closest to mass; A7: section of tumor with deepest invasion; A8: dental detail representative section of tumor; A9 - A10: [...] its performance characteristics determined by [facility], Pathology Laboratory. It has not been cleared [...] Tissue - Large Intestine, Colon - Sigmoid; [facility] Tissue - Other [address] [place] [address] ANATOMIC PATHOLOGY SCANNED - SCAN (01/02/2017 4:03 PM)after 08/14/2016
--- OUTSIDE RECORDS SUMMARY | 2017-08-15 12:49 | XMS REPORT ---
:1960 Author Organization [facility] Address [address] [place] [id number] Care Team Providers Name Role Phone AUDI DUNHAM Unavailable Unavailable ARTINYAN, CLEMENTE Unavailable Unavailable SMITH, KEVIN AHMAD Unavailable Unavailable Problems This patient has no known problems. Allergies, Adverse Reactions, Alerts This patient has no known allergies or adverse reactions. Medications This patient has no known medications. Results Test Description Test Time Test Comments Text Results Atomic Results Result Comments BLOOD CULTURE 2017-06-20 11:00:00 Test Item Value Reference Range Comments CULTURE (BEAKER) (test cpms=8353) No growth in 5 days BLOOD [id number] 11:00:00 Test Item Value Reference Range Comments CULTURE (BEAKER) (test cwlm=3378) No growth in 5 days POCT-GLUCOSE [id number] 16:43:00 Test Item Value Reference Range Comments POC-GLUCOSE METER (BEAKER) 192 mg/dL 70-110 TESTED AT [address] (test eidm=2254) [facility] [address] POCT-GLUCOSE [id number] 16:34:00 Test Item Value Reference Range Comments POC-GLUCOSE METER (BEAKER) 176 mg/dL 70-110 TESTED AT [address] (test atyt=4048) [facility] [address] DOUBLE-STRANDED DNA (DSDNA) [id number] 09:33:00 Test Item Value Reference Range Comments ANTI-DNA DS (BEAKER) (test mfdk=1437) Negative POCT-GLUCOSE [id number] 08:20:00 Test Item Value Reference Range Comments POC-GLUCOSE METER (BEAKER) 144 mg/dL 70-110 TESTED AT [address] (test tiax=0043) [facility] [address] BASIC METABOLIC [id number] 06:32:00 Test Item Value Reference Range Comments SODIUM (BEAKER) (test 143 meq/L 136-145 dyxi=817) POTASSIUM (BEAKER) (test 3.6 meq/L 3.5-5.1 njfj=225) CHLORIDE (BEAKER) (test 107 meq/L 98-107 kxdf=799) CO2 (BEAKER) (test 27 meq/L 22-29 hqsu=634) BLOOD UREA NITROGEN 4 mg/dL 7-21 (BEAKER) (test tdrq=869) CREATININE (BEAKER) (test 0.58 mg/dL 0.57-1.25 atnv=774) GLUCOSE RANDOM (BEAKER) 117 mg/dL 70-105 (test njsk=546) CALCIUM (BEAKER) (test 8.8 mg/dL 8.4-10.2 qdha=148) EGFR (BEAKER) (test 144 mL/min/1.73 sq m ESTIMATED GFR IS NOT xefg=5128) ACCURATE CREATININE CLEARANCE IN PREDICTING GLOMERULAR FILTRATION RATE. ESTIMATED GFR IS NOT APPLICABLE FOR DIALYSIS PATIENTS. POCT-GLUCOSE [id number] 20:55:00 Test Item Value Reference Range Comments POC-GLUCOSE METER (BEAKER) 165 mg/dL 70-110 TESTED AT [address] (test micf=3425) [place] [address] POCT-GLUCOSE [id number] 17:19:00 Test Item Value Reference Range Comments POC-GLUCOSE METER (BEAKER) 146 mg/dL 70-110 TESTED AT [address] (test pcwo=0232) [place] [address] POCT-GLUCOSE [id number] 12:20:00 Test Item Value Reference Range Comments POC-GLUCOSE METER (BEAKER) 201 mg/dL 70-110 TESTED AT [address] (test sffd=9485) [place] [address] POCT-GLUCOSE [id number] 07:53:00 Test Item Value Reference Range Comments POC-GLUCOSE METER (BEAKER) 145 mg/dL 70-110 TESTED AT [address] (test abne=1448) [place] [address] CBC W/PLT COUNT & AUTO [id number] 06:35:00 Test Item Value Reference Range Comments WHITE BLOOD CELL COUNT (BEAKER) (test docp=114) 7.8 K/ L 3.5-10.5 RED BLOOD CELL COUNT (BEAKER) (test uuls=328) 4.15 M/ L 4.63-6.08 HEMOGLOBIN (BEAKER) (test hddl=553) 11.0 GM/DL 13.7-17.5 HEMATOCRIT (BEAKER) (test gkda=117) 36.6 % 40.1-51.0 MEAN CORPUSCULAR VOLUME (BEAKER) (test vlgz=652) 88.2 fL 79.0-92.2 MEAN CORPUSCULAR HEMOGLOBIN (BEAKER) (test 26.5 pg 25.7-32.2 qxyc=681) MEAN CORPUSCULAR HEMOGLOBIN CONC (BEAKER) (test 30.1 GM/DL 32.3-36.5 bmbr=002) RED CELL DISTRIBUTION WIDTH (BEAKER) (test 15.9 % 11.6-14.4 etdm=280) PLATELET COUNT (BEAKER) (test jmma=645) 319 K/CU MM 150-450 MEAN PLATELET VOLUME (BEAKER) (test boal=936) 9.4 fL 9.4-12.4 NUCLEATED RED BLOOD CELLS (BEAKER) (test 0 /100 WBC 0-0 dajw=792) NEUTROPHILS RELATIVE PERCENT (BEAKER) (test 69 % sbgr=086) LYMPHOCYTES RELATIVE PERCENT (BEAKER) (test 18 % szye=103) MONOCYTES RELATIVE PERCENT (BEAKER) (test 10 % klgf=069) EOSINOPHILS RELATIVE PERCENT (BEAKER) (test 2 % huvq=650) BASOPHILS RELATIVE PERCENT (BEAKER) (test 0 % qqhn=345) NEUTROPHILS ABSOLUTE COUNT (BEAKER) (test 5.33 K/ L 1.78-5.38 uzrx=527) LYMPHOCYTES ABSOLUTE COUNT (BEAKER) (test 1.40 K/ L 1.32-3.57 cndt=130) MONOCYTES ABSOLUTE COUNT (BEAKER) (test 0.78 K/ L 0.30-0.82 wbqk=822) EOSINOPHILS ABSOLUTE COUNT (BEAKER) (test 0.18 K/ L 0.04-0.54 gmzn=266) BASOPHILS ABSOLUTE COUNT (BEAKER) (test 0.02 K/ L 0.01-0.08 kjif=393) IMMATURE GRANULOCYTES-RELATIVE PERCENT (BEAKER) 1 % 0-1 (test pvtw=8017) POCT-GLUCOSE [id number] 21:43:00 Test Item Value Reference Range Comments POC-GLUCOSE METER (BEAKER) 136 mg/dL 70-110 TESTED AT [facility] [address] [facility] (test agie=3455) [facility] [address] POCT-GLUCOSE [id number] 17:46:00 Test Item Value Reference Range Comments POC-GLUCOSE METER (BEAKER) 155 mg/dL 70-110 TESTED AT [facility] [address] [facility] (test kgou=5954) [facility] [address] EEG AWAKE AND [id number] 16:27:00Reason for exam:->AMSDate(s) of EEDATE OF REPORT: 06/17/17MRN: [id number]: [id number] Number: [id number] Location: Inpatient RoomStart time: 14:45Stop time: 15:06ICD-10: G93.40CPT Code : 13205 HISTORY: 57 y.o. w/ PMH of HTN, HLD, hypothyroidism, migraines, previous TIA &?stroke w/ unknown residual, paroxysmal afib (on eliquis) and rectal cancer (diagnosed 2017) who presented w/ persistent altered mental status MEDICATIONS THAT COULD AFFECT EEG: None TECHNICAL SUMMARY: This is a digital video-EEG recordedwith 32 input channels reviewed with bipolar and [...] to 3 Hz scattered, but fronto-centrally predominant, semi- rhythmic slow wave activities. Sleep structures were not seen in this recording SIGNIFICANT VIDEOEVENTS: None SIGNIFICANT ELECTROCARDIOGRAM EVENTS: None HV: Hyperventilation [...] remains, consider additional EEG recordings. Leo Brandon MDNeurophysiology Fellow, PGY5 Timi Oquendo MD, MSClinical Neurophysiology/Epilepsy Attending POCT-GLUCOSE [id number] 12:26:00 Test Item Value Reference Range Comments POC-GLUCOSE METER (BEAKER) 210 mg/dL 70-110 TESTED AT [address] (test xoqi=8101) [place] [address] CT, BRAIN, WITHOUT [id number] 10:41:00Reason for exam:->icg What is the patient's sedation requirement?->No SedationFINAL REPORT CT head without contrast 06/17/2017 10:39 [...] intracranial appearance when compared to 06/16/2017. Signed: Lam Hinsd Verified Date/Time: 06/17/2017 10:41:30 Reading Location: [address] Neuro Reading Room POCT-GLUCOSE [id number] 10:38: 00 Test Item Value Reference Range Comments POC-GLUCOSE METER (BEAKER) 237 mg/dL 70-110 TESTED AT [address] (test merm=1016) [place] [address] ANTI-NUCLEAR ANTIBODY (PER)2017-06-17 10:30:00 Test Item Value Reference Range Comments ANTI-NUCLEAR ANTIBODY (PER) (BEAKER) (test Negative Negative xeud=071) URINE [id number] 10:25:00 Test Item Value Reference Range Comments CULTURE (BEAKER) (test nnpy=3383) No growth POCT-GLUCOSE [id number] 09:45:00 Test Item Value Reference Range Comments POC-GLUCOSE METER (BEAKER) 165 mg/dL 70-110 TESTED AT [facility] [address] [facility] (test uaeh=0430) [facility] [address] COMPLEMENT COMPONENT [id number] 06:09:00 Test Item Value Reference Range Comments C4 COMPLEMENT (BEAKER) (test pdxg=279) 34 mg/dL 15-57 COMPLEMENT COMPONENT [id number] 06:09:00 Test Item Value Reference Range Comments C3 COMPLEMENT (BEAKER) (test fcdp=289) 131 mg/dL 82-193 T4, [id number] 04:49:00 Test Item Value Reference Range Comments FREE T4 (BEAKER) (test qaig=429) 2.36 ng/dL 0.70-1.48 [id number] 04:49:00 Test Item Value Reference Range Comments T3 TOTAL (BEAKER) (test qude=044) 53 ng/dL 48-159 [id number] 04:29:00 Test Item Value Reference Range Comments PHOSPHORUS (BEAKER) (test oouf=120) 3.2 mg/dL 2.3-4.7 [id number] 04:29:00 Test Item Value Reference Range Comments MAGNESIUM (BEAKER) (test acvb=549) 1.8 mg/dL 1.6-2.6 BASIC METABOLIC [id number] 04:29:00 Test Item Value Reference Range Comments SODIUM (BEAKER) (test 140 meq/L 136-145 zkws=494) POTASSIUM (BEAKER) (test 3.7 meq/L 3.5-5.1 huik=959) CHLORIDE (BEAKER) (test 105 meq/L 98-107 diyk=899) CO2 (BEAKER) (test 26 meq/L 22-29 bfpu=326) BLOOD UREA NITROGEN 5 mg/dL 7-21 (BEAKER) (test xmbc=956) CREATININE (BEAKER) (test 0.61 mg/dL 0.57-1.25 frgc=146) GLUCOSE RANDOM (BEAKER) 149 mg/dL 70-105 (test mjfr=988) CALCIUM (BEAKER) (test 9.1 mg/dL 8.4-10.2 hsrf=204) EGFR (BEAKER) (test 136 mL/min/1.73 sq m ESTIMATED GFR IS NOT nfuj=8532) ACCURATE CREATININE CLEARANCE IN PREDICTING GLOMERULAR FILTRATION RATE. ESTIMATED GFR IS NOT APPLICABLE FOR DIALYSIS PATIENTS. CBC W/PLT COUNT & AUTO [id number] 04:03:00 Test Item Value Reference Range Comments WHITE BLOOD CELL COUNT (BEAKER) (test hxfu=393) 7.0 K/ L 3.5-10.5 RED BLOOD CELL COUNT (BEAKER) (test znxo=063) 4.21 M/ L 4.63-6.08 HEMOGLOBIN (BEAKER) (test zowd=569) 11.3 GM/DL 13.7-17.5 HEMATOCRIT (BEAKER) (test suql=361) 36.3 % 40.1-51.0 MEAN CORPUSCULAR VOLUME (BEAKER) (test vpea=926) 86.2 fL 79.0-92.2 MEAN CORPUSCULAR HEMOGLOBIN (BEAKER) (test 26.8 pg 25.7-32.2 btla=744) MEAN CORPUSCULAR HEMOGLOBIN CONC (BEAKER) (test 31.1 GM/DL 32.3-36.5 mzzl=654) RED CELL DISTRIBUTION WIDTH (BEAKER) (test 16.1 % 11.6-14.4 gqml=849) PLATELET COUNT (BEAKER) (test tevm=322) 326 K/CU MM 150-450 MEAN PLATELET VOLUME (BEAKER) (test uxhy=181) 9.4 fL 9.4-12.4 NUCLEATED RED BLOOD CELLS (BEAKER) (test 0 /100 WBC 0-0 ydhu=345) NEUTROPHILS RELATIVE PERCENT (BEAKER) (test 60 % hayu=850) LYMPHOCYTES RELATIVE PERCENT (BEAKER) (test 24 % ggbm=212) MONOCYTES RELATIVE PERCENT (BEAKER) (test 11 % ifqm=078) EOSINOPHILS RELATIVE PERCENT (BEAKER) (test 4 % fagj=676) BASOPHILS RELATIVE PERCENT (BEAKER) (test 1 % itrd=931) NEUTROPHILS ABSOLUTE COUNT (BEAKER) (test 4.23 K/ L 1.78-5.38 udbn=915) LYMPHOCYTES ABSOLUTE COUNT (BEAKER) (test 1.67 K/ L 1.32-3.57 pwsp=062) MONOCYTES ABSOLUTE COUNT (BEAKER) (test 0.79 K/ L 0.30-0.82 vzpk=440) EOSINOPHILS ABSOLUTE COUNT (BEAKER) (test 0.25 K/ L 0.04-0.54 pqkf=088) BASOPHILS ABSOLUTE COUNT (BEAKER) (test 0.04 K/ L 0.01-0.08 gdwc=874) IMMATURE GRANULOCYTES-RELATIVE PERCENT (BEAKER) 1 % 0-1 (test irqx=2148) POCT-GLUCOSE [id number] 01:47:00 Test Item Value Reference Range Comments POC-GLUCOSE METER (BEAKER) 147 mg/dL 70-110 TESTED AT [address] (test bkkq=8940) [place] [address] POCT-GLUCOSE [id number] 20:57:00 Test Item Value Reference Range Comments POC-GLUCOSE METER (BEAKER) 234 mg/dL 70-110 TESTED AT [address] (test powz=6313) [place] [address] POCT-GLUCOSE [id number] 17:36:00 Test Item Value Reference Range Comments POC-GLUCOSE METER (BEAKER) 140 mg/dL 70-110 TESTED AT [address] (test woda=3317) [place] [id number] POCT-GLUCOSE [id number] 17:36:00 Test Item Value Reference Range Comments POC-GLUCOSE METER (BEAKER) 166 mg/dL 70-110 TESTED AT [address] (test bwmj=3250) [place] [address] MR, BRAIN, [id number] 11:52:00FINAL REPORT MRI Brain with and without contrast INDICATION: Decreased alertness. TECHNIQUE: Multiplanar, multisequence MR imaging of the brain was performed, utilizing the following imaging sequences: Axial T1, T2, FLAIR, DWI, GRE; sagittal T1; postcontrast axial, sagittal, andcoronal T1. COMPARISON: MRI brain 02/03/2017, CT head 01/29/2017 FINDINGS:The exam is motion degraded, despite sedation, particularly post contrast imaging. Abnormalities may be obscured. There are recent small nonhemorrhagic infarcts in the left frontal blevins radiata, right precentral gyrus subcortical white matter, left parietal subcortical white matter, and right thalamus superimposed on extensivechronic microvascular disease and/or chronic hypertensive encephalopathy, including in the deep graynuclei and brainstem, with deep kilgore nuclei and [...] thalamus superimposed on extensive chronic microvascular disease and/ or chronic hypertensive encephalopathy. 2. Scattered chronic hemorrhages, and a few foci of susceptibility artifact that are newsince 02/03/2017. Although these could also reflect chronic hemorrhages, head CT follow up is suggested to exclude small acute hemorrhagic foci. No resultant mass effect. 3. Additional chronic and involutional findings as discussed. 4. Motion degraded exam. Signed : Arun Reddy MDReport Verified Date/Time: 06/16/2017 11:52:47 Reading Location: [facility] Neuro Reading Room Electronicallysigned by: ARUN REDDY M.D. on 06/16/2017 11:52 AMPOCT-GLUCOSE [id number] 08: 06:00 Test Item Value Reference Range Comments POC-GLUCOSE METER (BEAKER) 135 mg/dL 70-110 TESTED AT [address] (test rhin=7413) [facility] [address] [id number] 07:54:00 Test Item Value Reference Range Comments PHOSPHORUS (BEAKER) (test kmub=856) 3.4 mg/dL 2.3-4.7 [id number] 07:54:00 Test Item Value Reference Range Comments MAGNESIUM (BEAKER) (test levg=168) 1.7 mg/dL 1.6-2.6 BASIC METABOLIC [id number] 07:54:00 Test Item Value Reference Range Comments SODIUM (BEAKER) (test 140 meq/L 136-145 agxj=081) POTASSIUM (BEAKER) (test 3.7 meq/L 3.5-5.1 yiae=648) CHLORIDE (BEAKER) (test 104 meq/L 98-107 jucv=863) CO2 (BEAKER) (test 23 meq/L 22-29 pich=810) BLOOD UREA NITROGEN 5 mg/dL 7-21 (BEAKER) (test kgiq=041) CREATININE (BEAKER) (test 0.59 mg/dL 0.57-1.25 phtn=516) GLUCOSE RANDOM (BEAKER) 132 mg/dL 70-105 (test utvy=644) CALCIUM (BEAKER) (test 8.8 mg/dL 8.4-10.2 dipf=184) EGFR (BEAKER) (test 141 mL/min/1.73 sq m ESTIMATED GFR IS NOT hpvu=3371) ACCURATE CREATININE CLEARANCE IN PREDICTING GLOMERULAR FILTRATION RATE. ESTIMATED GFR IS NOT APPLICABLE FOR DIALYSIS PATIENTS. CBC W/PLT COUNT & AUTO [id number] 06:26:00 Test Item Value Reference Range Comments WHITE BLOOD CELL COUNT (BEAKER) (test tgld=402) 7.7 K/ L 3.5-10.5 RED BLOOD CELL COUNT (BEAKER) (test oiwo=845) 4.30 M/ L 4.63-6.08 HEMOGLOBIN (BEAKER) (test iiqa=391) 11.5 GM/DL 13.7-17.5 HEMATOCRIT (BEAKER) (test hwpp=928) 37.5 % 40.1-51.0 MEAN CORPUSCULAR VOLUME (BEAKER) (test hbfw=420) 87.2 fL 79.0-92.2 MEAN CORPUSCULAR HEMOGLOBIN (BEAKER) (test 26.7 pg 25.7-32.2 ryjr=495) MEAN CORPUSCULAR HEMOGLOBIN CONC (BEAKER) (test 30.7 GM/DL 32.3-36.5 rgtf=664) RED CELL DISTRIBUTION WIDTH (BEAKER) (test 16.1 % 11.6-14.4 mppl=556) PLATELET COUNT (BEAKER) (test lrgd=328) 308 K/CU MM 150-450 MEAN PLATELET VOLUME (BEAKER) (test emsh=484) 9.7 fL 9.4-12.4 NUCLEATED RED BLOOD CELLS (BEAKER) (test 0 /100 WBC 0-0 iblh=126) NEUTROPHILS RELATIVE PERCENT (BEAKER) (test 60 % pscu=911) LYMPHOCYTES RELATIVE PERCENT (BEAKER) (test 25 % gaum=083) MONOCYTES RELATIVE PERCENT (BEAKER) (test 11 % rgll=420) EOSINOPHILS RELATIVE PERCENT (BEAKER) (test 3 % asis=562) BASOPHILS RELATIVE PERCENT (BEAKER) (test 1 % fyon=669) NEUTROPHILS ABSOLUTE COUNT (BEAKER) (test 4.62 K/ L 1.78-5.38 lnvf=942) LYMPHOCYTES ABSOLUTE COUNT (BEAKER) (test 1.89 K/ L 1.32-3.57 tttf=232) MONOCYTES ABSOLUTE COUNT (BEAKER) (test 0.86 K/ L 0.30-0.82 emvc=222) EOSINOPHILS ABSOLUTE COUNT (BEAKER) (test 0.22 K/ L 0.04-0.54 cffx=845) BASOPHILS ABSOLUTE COUNT (BEAKER) (test 0.06 K/ L 0.01-0.08 tdxj=286) IMMATURE GRANULOCYTES-RELATIVE PERCENT (BEAKER) 1 % 0-1 (test xpgn=4981) POCT-GLUCOSE [id number] 20:56:00 Test Item Value Reference Range Comments POC-GLUCOSE METER (BEAKER) 195 mg/dL 70-110 TESTED AT [address] (test fiyy=4645) [place] [id number] POCT-GLUCOSE [id number] 17:04:00 Test Item Value Reference Range Comments POC-GLUCOSE METER (BEAKER) 164 mg/dL 70-110 TESTED AT [address] (test sshp=1612) [place] [address] VITAMIN B12 AND [id number] 16:06:00 Test Item Value Reference Range Comments VITAMIN B12 (BEAKER) (test ennx=135) 1336 pg/mL 213-816 FOLATE (BEAKER) (test zcvo=739) 9.9 ng/mL >=7.0 [id number] 15:30:00 Test Item Value Reference Range Comments THYROID STIMULATING HORMONE (BEAKER) (test 0.02 uIU/mL 0.35-4.94 uxie=741) URINALYSIS W/ [id number] 14:44:00 Test Item Value Reference Range Comments COLOR (BEAKER) (test muse=770) Yellow CLARITY (BEAKER) (test vlyy=770) Clear SPECIFIC GRAVITY UA (BEAKER) (test 1.022 1.001-1.035 bhhs=843) PH UA (BEAKER) (test akwa=684) 6.0 5.0-8.0 PROTEIN UA (BEAKER) (test lbrq=130) 30 mg/dL Negative GLUCOSE UA (BEAKER) (test rdpp=987) Negative Negative KETONES UA (BEAKER) (test lfjl=243) 60 mg/dL Negative BILIRUBIN UA (BEAKER) (test Negative Negative ymqk=788) BLOOD UA (BEAKER) (test bjmu=627) Moderate Negative NITRITE UA (BEAKER) (test iics=791) Negative Negative LEUKOCYTE ESTERASE UA (BEAKER) Negative Negative (test tyzj=470) UROBILINOGEN UA (BEAKER) (test 2.0 mg/dL 0.2-1.0 cftx=039) RBC UA (BEAKER) (test ebge=792) > /HPF WBC UA (BEAKER) (test xxim=838) 2 /HPF MUCUS (BEAKER) (test dzwr=0358) Occasional SQUAMOUS EPITHELIAL (BEAKER) (test < /HPF kkrr=451) SOURCE(BEAKER) (test kvnd=1413) Urine, Straight Catheter HEMOGLOBIN [id number] 13:50:00 Test Item Value Reference Range Comments HEMOGLOBIN A1C (BEAKER) (test mjea=512) 6.5 % 4.3-6.1 POCT-GLUCOSE [id number] 12:56:00 Test Item Value Reference Range Comments POC-GLUCOSE METER (BEAKER) 201 mg/dL 70-110 TESTED AT [address] (test srpa=7908) [place] [address] [id number] 08:53:00 Test Item Value Reference Range Comments AMMONIA (BEAKER) (test whkn=768) 28 mol/L 18-72 POCT-GLUCOSE [id number] 07:58:00 Test Item Value Reference Range Comments POC-GLUCOSE METER (BEAKER) 155 mg/dL 70-110 TESTED AT [address] (test evjh=6438) [place] [address] HIV-1 ANTIGEN WITH HIV-1/2 [id number] 07:48:00 Test Item Value Reference Range Comments HIV-1 ANTIGEN WITH HIV 1\\T\\2 ANTIBODY (2) Nonreactive Nonreactive (BEAKER) (test arry=6574) [id number] 07:39:00 Test Item Value Reference Range Comments PHOSPHORUS (BEAKER) (test fxkm=043) 3.2 mg/dL 2.3-4.7 [id number] 07:39:00 Test Item Value Reference Range Comments MAGNESIUM (BEAKER) (test vzdj=710) 1.4 mg/dL 1.6-2.6 BASIC METABOLIC [id number] 07:39:00 Test Item Value Reference Range Comments SODIUM (BEAKER) (test 140 meq/L 136-145 kmoq=207) POTASSIUM (BEAKER) (test 3.8 meq/L 3.5-5.1 lfbr=211) CHLORIDE (BEAKER) (test 103 meq/L 98-107 advj=971) CO2 (BEAKER) (test 24 meq/L 22-29 hyxz=312) BLOOD UREA NITROGEN 7 mg/dL 7-21 (BEAKER) (test cjed=026) CREATININE (BEAKER) (test 0.63 mg/dL 0.57-1.25 nxqy=955) GLUCOSE RANDOM (BEAKER) 147 mg/dL 70-105 (test rnjr=691) CALCIUM (BEAKER) (test 9.2 mg/dL 8.4-10.2 fjkt=307) EGFR (BEAKER) (test 131 mL/min/1.73 sq m ESTIMATED GFR IS NOT yvgp=9191) ACCURATE CREATININE CLEARANCE IN PREDICTING GLOMERULAR FILTRATION RATE. ESTIMATED GFR IS NOT APPLICABLE FOR DIALYSIS PATIENTS. LIPID [id number] 07:39:00 Test Item Value Reference Range Comments TRIGLYCERIDES (BEAKER) (test ancr=768) 109 mg/dL CHOLESTEROL (BEAKER) (test fyxr=156) 75 mg/dL HDL CHOLESTEROL (BEAKER) (test edcc=395) 21 mg/dL LDL CHOLESTEROL CALCULATED (BEAKER) (test 32 mg/dL cykq=664) Triglyceride Reference Range: Low Risk <150 Borderline 150- 199 High Risk 200-499 Very High Risk >=500Cholesterol Reference Range: Low Risk <200 Borderline 200-239 High Risk > 240HDL Cholesterol Reference Range: Low Risk >=60 High Risk <40LDL Cholesterol Reference Range: Optimal <100 Near Optimal 100-129 Borderline 130-159 High 160-189 Very High >=190C-REACTIVE [id number] 07:39:00 Test Item Value Reference Range Comments C-REACTIVE PROTEIN (BEAKER) (test jxos=713) 11.36 mg/dL 0.00-0.50 SEDIMENTATION [id number] 07:38:00 Test Item Value Reference Range Comments SEDIMENTATION RATE, ERYTHROCYTE (BEAKER) (test 62 mm/HR 0-20 myzv=071) CBC W/PLT COUNT & AUTO [id number] 06:20:00 Test Item Value Reference Range Comments WHITE BLOOD CELL COUNT (BEAKER) (test lqcs=967) 7.7 K/ L 3.5-10.5 RED BLOOD CELL COUNT (BEAKER) (test knhn=214) 4.39 M/ L 4.63-6.08 HEMOGLOBIN (BEAKER) (test mpzh=629) 11.5 GM/DL 13.7-17.5 HEMATOCRIT (BEAKER) (test uldr=169) 38.0 % 40.1-51.0 MEAN CORPUSCULAR VOLUME (BEAKER) (test ykjq=857) 86.6 fL 79.0-92.2 MEAN CORPUSCULAR HEMOGLOBIN (BEAKER) (test 26.2 pg 25.7-32.2 lzjy=313) MEAN CORPUSCULAR HEMOGLOBIN CONC (BEAKER) (test 30.3 GM/DL 32.3-36.5 hyrw=491) RED CELL DISTRIBUTION WIDTH (BEAKER) (test 16.2 % 11.6-14.4 grtm=282) PLATELET COUNT (BEAKER) (test yxzg=489) 291 K/CU MM 150-450 MEAN PLATELET VOLUME (BEAKER) (test fiuq=067) 9.9 fL 9.4-12.4 NUCLEATED RED BLOOD CELLS (BEAKER) (test 0 /100 WBC 0-0 coho=544) NEUTROPHILS RELATIVE PERCENT (BEAKER) (test 57 % ymro=626) LYMPHOCYTES RELATIVE PERCENT (BEAKER) (test 26 % xzxh=155) MONOCYTES RELATIVE PERCENT (BEAKER) (test 14 % llod=306) EOSINOPHILS RELATIVE PERCENT (BEAKER) (test 2 % fxle=538) BASOPHILS RELATIVE PERCENT (BEAKER) (test 1 % cycr=468) NEUTROPHILS ABSOLUTE COUNT (BEAKER) (test 4.39 K/ L 1.78-5.38 knpo=373) LYMPHOCYTES ABSOLUTE COUNT (BEAKER) (test 2.01 K/ L 1.32-3.57 rwsw=870) MONOCYTES ABSOLUTE COUNT (BEAKER) (test 1.05 K/ L 0.30-0.82 stfi=817) EOSINOPHILS ABSOLUTE COUNT (BEAKER) (test 0.18 K/ L 0.04-0.54 ekhc=434) BASOPHILS ABSOLUTE COUNT (BEAKER) (test 0.05 K/ L 0.01-0.08 gdut=783) IMMATURE GRANULOCYTES-RELATIVE PERCENT (BEAKER) 1 % 0-1 (test btgc=9642) POCT-GLUCOSE [id number] 01:02:00 Test Item Value Reference Range Comments POC-GLUCOSE METER (BEAKER) 176 mg/dL 70-110 TESTED AT [address] (test zzhu=9631) [place] [address] POCT-GLUCOSE [id number] 20:56:00 Test Item Value Reference Range Comments POC-GLUCOSE METER (BEAKER) 123 mg/dL 70-110 TESTED AT [address] (test lybi=7198) [place] [address] POCT-GLUCOSE [id number] 17:15:00 Test Item Value Reference Range Comments POC-GLUCOSE METER (BEAKER) 252 mg/dL 70-110 TESTED AT [address] (test xpdu=7630) [place] [address] POCT-GLUCOSE [id number] 16:27:00 Test Item Value Reference Range Comments POC-GLUCOSE METER (BEAKER) 319 mg/dL 70-110 TESTED AT [address] (test yywy=2762) [place] [id number] CBC W/PLT COUNT & AUTO [id number] 15:10:00 Test Item Value Reference Range Comments WHITE BLOOD CELL COUNT (BEAKER) (test ptng=408) 8.3 K/ L 3.5-10.5 RED BLOOD CELL COUNT (BEAKER) (test ldiq=547) 3.50 M/ L 4.63-6.08 HEMOGLOBIN (BEAKER) (test iiwr=106) 9.1 GM/DL 13.7-17.5 HEMATOCRIT (BEAKER) (test tpjs=016) 30.8 % 40.1-51.0 MEAN CORPUSCULAR VOLUME (BEAKER) (test gsto=055) 88.0 fL 79.0-92.2 MEAN CORPUSCULAR HEMOGLOBIN (BEAKER) (test 26.0 pg 25.7-32.2 ulod=482) MEAN CORPUSCULAR HEMOGLOBIN CONC (BEAKER) (test 29.5 GM/DL 32.3-36.5 qhsl=236) RED CELL DISTRIBUTION WIDTH (BEAKER) (test 16.1 % 11.6-14.4 vvtd=395) PLATELET COUNT (BEAKER) (test hacb=986) 571 K/CU MM 150-450 MEAN PLATELET VOLUME (BEAKER) (test qgsy=716) 9.3 fL 9.4-12.4 NUCLEATED RED BLOOD CELLS (BEAKER) (test 0 /100 WBC 0-0 akxv=751) NEUTROPHILS RELATIVE PERCENT (BEAKER) (test 79 % wssb=241) LYMPHOCYTES RELATIVE PERCENT (BEAKER) (test 10 % dirj=017) MONOCYTES RELATIVE PERCENT (BEAKER) (test 9 % dpgl=552) EOSINOPHILS RELATIVE PERCENT (BEAKER) (test 1 % cuji=754) BASOPHILS RELATIVE PERCENT (BEAKER) (test 1 % xytd=268) NEUTROPHILS ABSOLUTE COUNT (BEAKER) (test 6.58 K/ L 1.78-5.38 ydrz=271) LYMPHOCYTES ABSOLUTE COUNT (BEAKER) (test 0.82 K/ L 1.32-3.57 ofte=141) MONOCYTES ABSOLUTE COUNT (BEAKER) (test 0.74 K/ L 0.30-0.82 zxof=606) EOSINOPHILS ABSOLUTE COUNT (BEAKER) (test 0.09 K/ L 0.04-0.54 wrts=974) BASOPHILS ABSOLUTE COUNT (BEAKER) (test 0.04 K/ L 0.01-0.08 zczp=752) IMMATURE GRANULOCYTES-RELATIVE PERCENT (BEAKER) 1 % 0-1 (test hdpi=2055) [id number] 15:00:00 Test Item Value Reference Range Comments PHOSPHORUS (BEAKER) (test dzsm=531) 3.2 mg/dL 2.3-4.7 [id number] 15:00:00 Test Item Value Reference Range Comments MAGNESIUM (BEAKER) (test nvda=790) 1.5 mg/dL 1.6-2.6 BASIC METABOLIC [id number] 15:00:00 Test Item Value Reference Range Comments SODIUM (BEAKER) (test 133 meq/L 136-145 acyj=152) POTASSIUM (BEAKER) (test 4.7 meq/L 3.5-5.1 wext=820) CHLORIDE (BEAKER) (test 97 meq/L 98-107 aakd=834) CO2 (BEAKER) (test 26 meq/L 22-29 ywwz=158) BLOOD UREA NITROGEN 12 mg/dL 7-21 (BEAKER) (test iuzz=372) CREATININE (BEAKER) (test 0.68 mg/dL 0.57-1.25 anhc=221) GLUCOSE RANDOM (BEAKER) 305 mg/dL 70-105 (test obpy=130) CALCIUM (BEAKER) (test 8.9 mg/dL 8.4-10.2 cgtj=863) EGFR (BEAKER) (test 120 mL/min/1.73 sq m ESTIMATED GFR IS NOT qnei=2101) ACCURATE CREATININE CLEARANCE IN PREDICTING GLOMERULAR FILTRATION RATE. ESTIMATED GFR IS NOT APPLICABLE FOR DIALYSIS PATIENTS. CALCIUM, [id number] 14:49:00 Test Item Value Reference Range Comments CALCIUM IONIZED (BEAKER) (test sryr=106) 1.00 mmol/L 1.12-1.27 PH, BLOOD (BEAKER) (test rwdy=0987) 7.47 POCT-GLUCOSE [id number] 13:28:00 Test Item Value Reference Range Comments POC-GLUCOSE METER (BEAKER) 294 mg/dL 70-110 TESTED AT [facility] [address] [facility] (test diuw=6216) [facility] [address] [place], ESOPH, SWALLOW FUNCTION, WITH CINE OR [id number] 11:29:00Reason for exam:->dysphagiaFINAL REPORT Modified barium swallow [...] MDReport Verified Date/Time: 03/14/2017 11:29:44 Reading Location: [facility] [id number] Ortho Consult Reading Room OCCULT BLOOD, [id number] 09:21:00 Test Item Value Reference Range Comments FECAL OCCULT BLOOD (BEAKER) (test xthk=214) Negative Negative POCT-GLUCOSE [id number] 04:44:00 Test Item Value Reference Range Comments POC-GLUCOSE METER (BEAKER) 157 mg/dL 70-110 TESTED AT [address] (test gjlv=4940) [facility] [address] POCT-GLUCOSE [id number] 23:28:00 Test Item Value Reference Range Comments POC-GLUCOSE METER (BEAKER) 132 mg/dL 70-110 TESTED AT [address] (test vxvs=6909) [facility] [address] POCT-GLUCOSE [id number] 16:20:00 Test Item Value Reference Range Comments POC-GLUCOSE METER (BEAKER) 223 mg/dL 70-110 TESTED AT [address] (test jjxp=8529) [facility] [address] POCT-GLUCOSE [id number] 13:13:00 Test Item Value Reference Range Comments POC-GLUCOSE METER (BEAKER) 196 mg/dL 70-110 TESTED AT [address] (test vprp=3467) [facility] [address] POCT-GLUCOSE [id number] 10:08:00 Test Item Value Reference Range Comments POC-GLUCOSE METER (BEAKER) 195 mg/dL 70-110 TESTED AT [address] (test khbr=0068) [facility] [address] CALCIUM, [id number] 08:11:00 Test Item Value Reference Range Comments CALCIUM IONIZED (BEAKER) (test kgqj=843) 0.91 mmol/L 1.12-1.27 PH, BLOOD (BEAKER) (test xwuo=1762) 7.48 [id number] 05:53:00 Test Item Value Reference Range Comments PHOSPHORUS (BEAKER) (test ijki=657) 2.9 mg/dL 2.3-4.7 [id number] 05:53:00 Test Item Value Reference Range Comments MAGNESIUM (BEAKER) (test vsvl=236) 1.4 mg/dL 1.6-2.6 BASIC METABOLIC [id number] 05:53:00 Test Item Value Reference Range Comments SODIUM (BEAKER) (test 133 meq/L 136-145 hqkm=296) POTASSIUM (BEAKER) (test 4.5 meq/L 3.5-5.1 lukf=353) CHLORIDE (BEAKER) (test 99 meq/L 98-107 nmqm=218) CO2 (BEAKER) (test 26 meq/L 22-29 aynv=685) BLOOD UREA NITROGEN 12 mg/dL 7-21 (BEAKER) (test xgnu=098) CREATININE (BEAKER) (test 0.56 mg/dL 0.57-1.25 dxuk=918) GLUCOSE RANDOM (BEAKER) 142 mg/dL 70-105 (test nihl=569) CALCIUM (BEAKER) (test 8.4 mg/dL 8.4-10.2 znrr=318) EGFR (BEAKER) (test 150 mL/min/1.73 sq m ESTIMATED GFR IS NOT cxrw=2882) ACCURATE CREATININE CLEARANCE IN PREDICTING GLOMERULAR FILTRATION RATE. ESTIMATED GFR IS NOT APPLICABLE FOR DIALYSIS PATIENTS. POCT-GLUCOSE [id number] 05:34:00 Test Item Value Reference Range Comments POC-GLUCOSE METER (BEAKER) 142 mg/dL 70-110 TESTED AT [facility] [address] [facility] (test fcqs=7613) [facility] [address] CBC W/PLT COUNT & AUTO [id number] 05:26:00 Test Item Value Reference Range Comments WHITE BLOOD CELL COUNT (BEAKER) (test kjvr=310) 7.7 K/ L 3.5-10.5 RED BLOOD CELL COUNT (BEAKER) (test dxus=872) 3.27 M/ L 4.63-6.08 HEMOGLOBIN (BEAKER) (test nbbe=251) 8.7 GM/DL 13.7-17.5 HEMATOCRIT (BEAKER) (test uqht=788) 28.6 % 40.1-51.0 MEAN CORPUSCULAR VOLUME (BEAKER) (test agbz=882) 87.5 fL 79.0-92.2 MEAN CORPUSCULAR HEMOGLOBIN (BEAKER) (test 26.6 pg 25.7-32.2 nkan=592) MEAN CORPUSCULAR HEMOGLOBIN CONC (BEAKER) (test 30.4 GM/DL 32.3-36.5 blpl=216) RED CELL DISTRIBUTION WIDTH (BEAKER) (test 15.9 % 11.6-14.4 dxav=308) PLATELET COUNT (BEAKER) (test hxfu=612) 478 K/CU MM 150-450 MEAN PLATELET VOLUME (BEAKER) (test pygf=255) 9.2 fL 9.4-12.4 NUCLEATED RED BLOOD CELLS (BEAKER) (test 0 /100 WBC 0-0 taao=121) NEUTROPHILS RELATIVE PERCENT (BEAKER) (test 72 % jnoq=855) LYMPHOCYTES RELATIVE PERCENT (BEAKER) (test 12 % nwir=343) MONOCYTES RELATIVE PERCENT (BEAKER) (test 10 % cuuc=510) EOSINOPHILS RELATIVE PERCENT (BEAKER) (test 4 % oqic=436) BASOPHILS RELATIVE PERCENT (BEAKER) (test 1 % xtrp=661) NEUTROPHILS ABSOLUTE COUNT (BEAKER) (test 5.56 K/ L 1.78-5.38 dwav=499) LYMPHOCYTES ABSOLUTE COUNT (BEAKER) (test 0.91 K/ L 1.32-3.57 gdkv=909) MONOCYTES ABSOLUTE COUNT (BEAKER) (test 0.80 K/ L 0.30-0.82 souq=439) EOSINOPHILS ABSOLUTE COUNT (BEAKER) (test 0.31 K/ L 0.04-0.54 cysk=315) BASOPHILS ABSOLUTE COUNT (BEAKER) (test 0.05 K/ L 0.01-0.08 mzmd=278) IMMATURE GRANULOCYTES-RELATIVE PERCENT (BEAKER) 1 % 0-1 (test jyxf=1254) POCT-GLUCOSE [id number] 23:09:00 Test Item Value Reference Range Comments POC-GLUCOSE METER (BEAKER) 183 mg/dL 70-110 TESTED AT [address] (test frph=7825) [facility] [address] POCT-GLUCOSE [id number] 22:58:00 Test Item Value Reference Range Comments POC-GLUCOSE METER (BEAKER) 188 mg/dL 70-110 TESTED AT [address] (test axzv=3712) [facility] [address] POCT-GLUCOSE [id number] 16:04:00 Test Item Value Reference Range Comments POC-GLUCOSE METER (BEAKER) 183 mg/dL 70-110 TESTED AT [facility] [address] [facility] (test jxsr=6616) [facility] [address] AFB CULTURE + [id number] 12:29:00 Test Item Value Reference Range Comments CULTURE (BEAKER) (test No acid-fast bacilli isolated fizv=3103) in 42 days AFB SMEAR (BEAKER) (test No acid fast bacilli seen czls=987) POCT-GLUCOSE [id number] 09:56:00 Test Item Value Reference Range Comments POC-GLUCOSE METER (BEAKER) 178 mg/dL 70-110 TESTED AT [facility] [address] [facility] (test syqz=1796) [facility] [address] [id number] 07:53:00 Test Item Value Reference Range Comments PHOSPHORUS (BEAKER) (test lxpx=075) 2.5 mg/dL 2.3-4.7 [id number] 07:53:00 Test Item Value Reference Range Comments MAGNESIUM (BEAKER) (test abyy=976) 1.6 mg/dL 1.6-2.6 BASIC METABOLIC [id number] 07:53:00 Test Item Value Reference Range Comments SODIUM (BEAKER) (test 134 meq/L 136-145 igoo=503) POTASSIUM (BEAKER) (test 4.4 meq/L 3.5-5.1 kqpn=779) CHLORIDE (BEAKER) (test 100 meq/L 98-107 okci=447) CO2 (BEAKER) (test 25 meq/L 22-29 romy=428) BLOOD UREA NITROGEN 12 mg/dL 7-21 (BEAKER) (test pfan=476) CREATININE (BEAKER) (test 0.62 mg/dL 0.57-1.25 mkff=064) GLUCOSE RANDOM (BEAKER) 201 mg/dL 70-105 (test lgyo=113) CALCIUM (BEAKER) (test 8.6 mg/dL 8.4-10.2 yblh=518) EGFR (BEAKER) (test 133 mL/min/1.73 sq m ESTIMATED GFR IS NOT gcue=1179) ACCURATE CREATININE CLEARANCE IN PREDICTING GLOMERULAR FILTRATION RATE. ESTIMATED GFR IS NOT APPLICABLE FOR DIALYSIS PATIENTS. CALCIUM, [id number] 07:53:00 Test Item Value Reference Range Comments CALCIUM IONIZED (BEAKER) (test hdxo=783) 0.94 mmol/L 1.12-1.27 PH, BLOOD (BEAKER) (test dvtf=7912) 7.44 CBC W/PLT COUNT & AUTO [id number] 06:43:00 Test Item Value Reference Range Comments WHITE BLOOD CELL COUNT (BEAKER) (test nrjk=797) 6.6 K/ L 3.5-10.5 RED BLOOD CELL COUNT (BEAKER) (test wiff=392) 3.61 M/ L 4.63-6.08 HEMOGLOBIN (BEAKER) (test rwsg=897) 9.5 GM/DL 13.7-17.5 HEMATOCRIT (BEAKER) (test nwjl=354) 32.0 % 40.1-51.0 MEAN CORPUSCULAR VOLUME (BEAKER) (test sdon=526) 88.6 fL 79.0-92.2 MEAN CORPUSCULAR HEMOGLOBIN (BEAKER) (test 26.3 pg 25.7-32.2 sbxb=538) MEAN CORPUSCULAR HEMOGLOBIN CONC (BEAKER) (test 29.7 GM/DL 32.3-36.5 appj=950) RED CELL DISTRIBUTION WIDTH (BEAKER) (test 16.1 % 11.6-14.4 dphj=059) PLATELET COUNT (BEAKER) (test gklw=245) 467 K/CU MM 150-450 MEAN PLATELET VOLUME (BEAKER) (test uymb=958) 9.3 fL 9.4-12.4 NUCLEATED RED BLOOD CELLS (BEAKER) (test 0 /100 WBC 0-0 vlii=434) NEUTROPHILS RELATIVE PERCENT (BEAKER) (test 75 % kuee=196) LYMPHOCYTES RELATIVE PERCENT (BEAKER) (test 11 % hdkp=181) MONOCYTES RELATIVE PERCENT (BEAKER) (test 9 % eebk=237) EOSINOPHILS RELATIVE PERCENT (BEAKER) (test 3 % ilju=158) BASOPHILS RELATIVE PERCENT (BEAKER) (test 1 % leia=722) NEUTROPHILS ABSOLUTE COUNT (BEAKER) (test 4.97 K/ L 1.78-5.38 aopp=109) LYMPHOCYTES ABSOLUTE COUNT (BEAKER) (test 0.70 K/ L 1.32-3.57 czjn=743) MONOCYTES ABSOLUTE COUNT (BEAKER) (test 0.62 K/ L 0.30-0.82 adyu=146) EOSINOPHILS ABSOLUTE COUNT (BEAKER) (test 0.22 K/ L 0.04-0.54 xtsd=663) BASOPHILS ABSOLUTE COUNT (BEAKER) (test 0.03 K/ L 0.01-0.08 hxdr=023) IMMATURE GRANULOCYTES-RELATIVE PERCENT (BEAKER) 1 % 0-1 (test awqe=7581) POCT-GLUCOSE [id number] 03:44:00 Test Item Value Reference Range Comments POC-GLUCOSE METER (BEAKER) 260 mg/dL 70-110 TESTED AT [address] (test khfu=9122) [facility] [address] POCT-GLUCOSE [id number] 23:14:00 Test Item Value Reference Range Comments POC-GLUCOSE METER (BEAKER) 174 mg/dL 70-110 TESTED AT [address] (test mzan=4227) [place] [id number] POCT-GLUCOSE [id number] 16:57:00 Test Item Value Reference Range Comments POC-GLUCOSE METER (BEAKER) 221 mg/dL 70-110 TESTED AT [address] (test sufs=9912) [facility] [address] POCT-GLUCOSE [id number] 09:47:00 Test Item Value Reference Range Comments POC-GLUCOSE METER (BEAKER) 210 mg/dL 70-110 TESTED AT [address] (test xbpz=1709) [facility] [address] [id number] 05:38:00 Test Item Value Reference Range Comments PHOSPHORUS (BEAKER) (test chxu=130) 2.4 mg/dL 2.3-4.7 [id number] 05:38:00 Test Item Value Reference Range Comments MAGNESIUM (BEAKER) (test mjvv=506) 1.6 mg/dL 1.6-2.6 BASIC METABOLIC [id number] 05:38:00 Test Item Value Reference Range Comments SODIUM (BEAKER) (test 135 meq/L 136-145 qfvb=177) POTASSIUM (BEAKER) (test 4.5 meq/L 3.5-5.1 tctl=886) CHLORIDE (BEAKER) (test 100 meq/L 98-107 qndv=266) CO2 (BEAKER) (test 25 meq/L 22-29 xgvd=679) BLOOD UREA NITROGEN 12 mg/dL 7-21 (BEAKER) (test rhrz=136) CREATININE (BEAKER) (test 0.61 mg/dL 0.57-1.25 mmrq=887) GLUCOSE RANDOM (BEAKER) 208 mg/dL 70-105 (test lfdg=318) CALCIUM (BEAKER) (test 8.5 mg/dL 8.4-10.2 ssyz=635) EGFR (BEAKER) (test 136 mL/min/1.73 sq m ESTIMATED GFR IS NOT iujg=3207) ACCURATE CREATININE CLEARANCE IN PREDICTING GLOMERULAR FILTRATION RATE. ESTIMATED GFR IS NOT APPLICABLE FOR DIALYSIS PATIENTS. CALCIUM, [id number] 05:30:00 Test Item Value Reference Range Comments CALCIUM IONIZED (BEAKER) (test fbsr=278) 0.99 mmol/L 1.12-1.27 PH, BLOOD (BEAKER) (test bumd=2024) 7.46 CBC W/PLT COUNT & AUTO [id number] 05:08:00 Test Item Value Reference Range Comments WHITE BLOOD CELL COUNT (BEAKER) (test npjt=404) 6.8 K/ L 3.5-10.5 RED BLOOD CELL COUNT (BEAKER) (test aety=313) 3.62 M/ L 4.63-6.08 HEMOGLOBIN (BEAKER) (test wnzu=858) 9.3 GM/DL 13.7-17.5 HEMATOCRIT (BEAKER) (test wzqy=546) 31.9 % 40.1-51.0 MEAN CORPUSCULAR VOLUME (BEAKER) (test nbua=164) 88.1 fL 79.0-92.2 MEAN CORPUSCULAR HEMOGLOBIN (BEAKER) (test 25.7 pg 25.7-32.2 cfpz=628) MEAN CORPUSCULAR HEMOGLOBIN CONC (BEAKER) (test 29.2 GM/DL 32.3-36.5 otia=939) RED CELL DISTRIBUTION WIDTH (BEAKER) (test 16.0 % 11.6-14.4 lijd=159) PLATELET COUNT (BEAKER) (test erpf=885) 487 K/CU MM 150-450 MEAN PLATELET VOLUME (BEAKER) (test wsuu=364) 9.6 fL 9.4-12.4 NUCLEATED RED BLOOD CELLS (BEAKER) (test 0 /100 WBC 0-0 wphr=634) NEUTROPHILS RELATIVE PERCENT (BEAKER) (test 72 % bmzu=901) LYMPHOCYTES RELATIVE PERCENT (BEAKER) (test 13 % muys=860) MONOCYTES RELATIVE PERCENT (BEAKER) (test 11 % ztka=121) EOSINOPHILS RELATIVE PERCENT (BEAKER) (test 3 % fxih=123) BASOPHILS RELATIVE PERCENT (BEAKER) (test 1 % thwi=535) NEUTROPHILS ABSOLUTE COUNT (BEAKER) (test 4.91 K/ L 1.78-5.38 bhzi=905) LYMPHOCYTES ABSOLUTE COUNT (BEAKER) (test 0.90 K/ L 1.32-3.57 znzu=840) MONOCYTES ABSOLUTE COUNT (BEAKER) (test 0.75 K/ L 0.30-0.82 hmno=396) EOSINOPHILS ABSOLUTE COUNT (BEAKER) (test 0.18 K/ L 0.04-0.54 jauh=450) BASOPHILS ABSOLUTE COUNT (BEAKER) (test 0.05 K/ L 0.01-0.08 dpoy=307) IMMATURE GRANULOCYTES-RELATIVE PERCENT (BEAKER) 1 % 0-1 (test swbj=1388) POCT-GLUCOSE [id number] 04:15:00 Test Item Value Reference Range Comments POC-GLUCOSE METER (BEAKER) 231 mg/dL 70-110 TESTED AT [address] (test wieb=8455) [place] [address] OCCULT BLOOD, [id number] 00:24:00 Test Item Value Reference Range Comments FECAL OCCULT BLOOD (BEAKER) (test vcnp=000) Negative Negative POCT-GLUCOSE [id number] 22:51:00 Test Item Value Reference Range Comments POC-GLUCOSE METER (BEAKER) 225 mg/dL 70-110 TESTED AT [address] (test wibe=7640) [place] [id number] POCT-GLUCOSE [id number] 16:35:00 Test Item Value Reference Range Comments POC-GLUCOSE METER (BEAKER) 226 mg/dL 70-110 TESTED AT [address] (test bklr=5312) [place] [id number] POCT-GLUCOSE [id number] 10:08:00 Test Item Value Reference Range Comments POC-GLUCOSE METER (BEAKER) 200 mg/dL 70-110 TESTED AT [address] (test gztw=2200) [place] [address] CBC W/PLT COUNT & AUTO [id number] 06:49:00 Test Item Value Reference Range Comments WHITE BLOOD CELL COUNT (BEAKER) (test gbfi=913) 6.4 K/ L 3.5-10.5 RED BLOOD CELL COUNT (BEAKER) (test vwwr=462) 4.12 M/ L 4.63-6.08 HEMOGLOBIN (BEAKER) (test mnvb=876) 10.9 GM/DL 13.7-17.5 HEMATOCRIT (BEAKER) (test rzab=438) 36.9 % 40.1-51.0 MEAN CORPUSCULAR VOLUME (BEAKER) (test eipa=129) 89.6 fL 79.0-92.2 MEAN CORPUSCULAR HEMOGLOBIN (BEAKER) (test 26.5 pg 25.7-32.2 xawv=367) MEAN CORPUSCULAR HEMOGLOBIN CONC (BEAKER) (test 29.5 GM/DL 32.3-36.5 dlvd=814) RED CELL DISTRIBUTION WIDTH (BEAKER) (test 16.0 % 11.6-14.4 bmul=473) PLATELET COUNT (BEAKER) (test plkx=769) 512 K/CU MM 150-450 MEAN PLATELET VOLUME (BEAKER) (test qmkd=928) 9.7 fL 9.4-12.4 NUCLEATED RED BLOOD CELLS (BEAKER) (test 0 /100 WBC 0-0 pjkr=900) NEUTROPHILS RELATIVE PERCENT (BEAKER) (test 70 % hhcw=556) LYMPHOCYTES RELATIVE PERCENT (BEAKER) (test 16 % weef=427) MONOCYTES RELATIVE PERCENT (BEAKER) (test 10 % wdop=956) EOSINOPHILS RELATIVE PERCENT (BEAKER) (test 3 % vzyr=749) BASOPHILS RELATIVE PERCENT (BEAKER) (test 1 % wuek=611) NEUTROPHILS ABSOLUTE COUNT (BEAKER) (test 4.47 K/ L 1.78-5.38 kmdb=556) LYMPHOCYTES ABSOLUTE COUNT (BEAKER) (test 1.01 K/ L 1.32-3.57 ouyi=470) MONOCYTES ABSOLUTE COUNT (BEAKER) (test 0.62 K/ L 0.30-0.82 aazx=438) EOSINOPHILS ABSOLUTE COUNT (BEAKER) (test 0.17 K/ L 0.04-0.54 ryru=132) BASOPHILS ABSOLUTE COUNT (BEAKER) (test 0.03 K/ L 0.01-0.08 eswo=608) IMMATURE GRANULOCYTES-RELATIVE PERCENT (BEAKER) 1 % 0-1 (test lgch=2427) CBC (HEMOGRAM ONLY)2017-03-10 06:36:00 Test Item Value Reference Range Comments WHITE BLOOD CELL COUNT (BEAKER) (test myqn=830) 6.4 K/ L 3.5-10.5 RED BLOOD CELL COUNT (BEAKER) (test mzuv=012) 4.12 M/ L 4.63-6.08 HEMOGLOBIN (BEAKER) (test wyvg=279) 10.9 GM/DL 13.7-17.5 HEMATOCRIT (BEAKER) (test bfiz=961) 36.9 % 40.1-51.0 MEAN CORPUSCULAR VOLUME (BEAKER) (test rfzm=138) 89.6 fL 79.0-92.2 MEAN CORPUSCULAR HEMOGLOBIN (BEAKER) (test 26.5 pg 25.7-32.2 yhee=407) MEAN CORPUSCULAR HEMOGLOBIN CONC (BEAKER) (test 29.5 GM/DL 32.3-36.5 mvsc=490) RED CELL DISTRIBUTION WIDTH (BEAKER) (test 16.0 % 11.6-14.4 xfov=113) PLATELET COUNT (BEAKER) (test phwm=807) 512 K/CU MM 150-450 MEAN PLATELET VOLUME (BEAKER) (test hrjm=698) 9.7 fL 9.4-12.4 NUCLEATED RED BLOOD CELLS (BEAKER) (test 0 /100 WBC 0-0 bqca=911) CALCIUM, [id number] 05:58:00 Test Item Value Reference Range Comments CALCIUM IONIZED (BEAKER) (test edcx=645) 1.09 mmol/L 1.12-1.27 PH, BLOOD (BEAKER) (test jfpq=6570) 7.36 [id number] 05:30:00 Test Item Value Reference Range Comments PHOSPHORUS (BEAKER) (test ikbg=285) 2.2 mg/dL 2.3-4.7 [id number] 05:30:00 Test Item Value Reference Range Comments MAGNESIUM (BEAKER) (test bylk=767) 1.6 mg/dL 1.6-2.6 BASIC METABOLIC [id number] 05:30:00 Test Item Value Reference Range Comments SODIUM (BEAKER) (test 137 meq/L 136-145 rosj=101) POTASSIUM (BEAKER) (test 4.5 meq/L 3.5-5.1 vwab=772) CHLORIDE (BEAKER) (test 100 meq/L 98-107 tyxt=986) CO2 (BEAKER) (test 27 meq/L 22-29 mqnr=249) BLOOD UREA NITROGEN 11 mg/dL 7-21 (BEAKER) (test ngui=787) CREATININE (BEAKER) (test 0.59 mg/dL 0.57-1.25 woee=863) GLUCOSE RANDOM (BEAKER) 110 mg/dL 70-105 (test sgqt=284) CALCIUM (BEAKER) (test 9.2 mg/dL 8.4-10.2 jasp=052) EGFR (BEAKER) (test 141 mL/min/1.73 sq m ESTIMATED GFR IS NOT bcue=2182) ACCURATE CREATININE CLEARANCE IN PREDICTING GLOMERULAR FILTRATION RATE. ESTIMATED GFR IS NOT APPLICABLE FOR DIALYSIS PATIENTS. POCT-GLUCOSE [id number] 03:44:00 Test Item Value Reference Range Comments POC-GLUCOSE METER (BEAKER) 138 mg/dL 70-110 TESTED AT [address] (test vgza=0330) [facility] [address] POCT-GLUCOSE [id number] 22:22:00 Test Item Value Reference Range Comments POC-GLUCOSE METER (BEAKER) 172 mg/dL 70-110 TESTED AT [address] (test aklk=2327) [facility] [address] POCT-GLUCOSE [id number] 16:05:00 Test Item Value Reference Range Comments POC-GLUCOSE METER (BEAKER) 216 mg/dL 70-110 TESTED AT [address] (test bnsa=3798) [facility] [address] POCT-GLUCOSE [id number] 10:00:00 Test Item Value Reference Range Comments POC-GLUCOSE METER (BEAKER) 224 mg/dL 70-110 TESTED AT [address] (test gvbs=5974) [facility] [address] POCT-GLUCOSE [id number] 05:16:00 Test Item Value Reference Range Comments POC-GLUCOSE METER (BEAKER) 164 mg/dL 70-110 TESTED AT [address] (test gldc=4838) [facility] [address] POCT-GLUCOSE [id number] 22:29:00 Test Item Value Reference Range Comments POC-GLUCOSE METER (BEAKER) 165 mg/dL 70-110 TESTED AT [address] (test bkid=9957) [facility] [address] POCT-GLUCOSE [id number] 16:29:00 Test Item Value Reference Range Comments POC-GLUCOSE METER (BEAKER) 219 mg/dL 70-110 TESTED AT [address] (test txbj=3068) [facility] [address] POCT-GLUCOSE [id number] 10:04:00 Test Item Value Reference Range Comments POC-GLUCOSE METER (BEAKER) 190 mg/dL 70-110 TESTED AT [address] (test qafo=8938) [facility] [address] ANG, INSERTION G TUBE, W/ [id number] 09:01:00Reason for exam:->for PEG placementFINAL REPORT Fluoroscopic guided gastrostomy tube placement. Modality: Fluoroscopy. Fabricator Artificial Breast: Talat Hare MD. Office Runner: None. Sedation: Moderate sedation was administered. 1 [...] After the tract was dilated, a 14 Kiswahili catheter was placed into the stomach. The [...] guided gastrostomy tube placement, with conscious sedation.Signed: Taalt Hare MDReport Verified Date/Time: 03/08/2017 09:01:42 Reading Location : [place] [address] Angio Body Reading Room CBC W/PLT COUNT & AUTO [id number] 08:51:00 Test Item Value Reference Range Comments WHITE BLOOD CELL COUNT (BEAKER) (test jdxa=086) 6.9 K/ L 3.5-10.5 RED BLOOD CELL COUNT (BEAKER) (test ujwb=370) 3.46 M/ L 4.63-6.08 HEMOGLOBIN (BEAKER) (test eprg=074) 9.2 GM/DL 13.7-17.5 HEMATOCRIT (BEAKER) (test hndk=658) 30.8 % 40.1-51.0 MEAN CORPUSCULAR VOLUME (BEAKER) (test mfnw=589) 89.0 fL 79.0-92.2 MEAN CORPUSCULAR HEMOGLOBIN (BEAKER) (test 26.6 pg 25.7-32.2 earc=516) MEAN CORPUSCULAR HEMOGLOBIN CONC (BEAKER) (test 29.9 GM/DL 32.3-36.5 zajs=693) RED CELL DISTRIBUTION WIDTH (BEAKER) (test 15.9 % 11.6-14.4 qsmb=022) PLATELET COUNT (BEAKER) (test nhhb=407) 425 K/CU MM 150-450 MEAN PLATELET VOLUME (BEAKER) (test pwos=192) 9.8 fL 9.4-12.4 NUCLEATED RED BLOOD CELLS (BEAKER) (test 0 /100 WBC 0-0 jbbx=625) NEUTROPHILS RELATIVE PERCENT (BEAKER) (test 79 % fjur=604) LYMPHOCYTES RELATIVE PERCENT (BEAKER) (test 9 % psgi=895) MONOCYTES RELATIVE PERCENT (BEAKER) (test 10 % lspr=837) EOSINOPHILS RELATIVE PERCENT (BEAKER) (test 2 % znfo=565) BASOPHILS RELATIVE PERCENT (BEAKER) (test 0 % mobl=589) NEUTROPHILS ABSOLUTE COUNT (BEAKER) (test 5.42 K/ L 1.78-5.38 zyba=647) LYMPHOCYTES ABSOLUTE COUNT (BEAKER) (test 0.59 K/ L 1.32-3.57 yfjv=019) MONOCYTES ABSOLUTE COUNT (BEAKER) (test 0.68 K/ L 0.30-0.82 jygk=945) EOSINOPHILS ABSOLUTE COUNT (BEAKER) (test 0.10 K/ L 0.04-0.54 ezbk=992) BASOPHILS ABSOLUTE COUNT (BEAKER) (test 0.02 K/ L 0.01-0.08 atmp=436) IMMATURE GRANULOCYTES-RELATIVE PERCENT (BEAKER) 1 % 0-1 (test nyvp=4891) CALCIUM, [id number] 07:35:00 Test Item Value Reference Range Comments CALCIUM IONIZED (BEAKER) (test saet=863) 1.08 mmol/L 1.12-1.27 PH, BLOOD (BEAKER) (test pqfe=2244) 7.42 [id number] 07:24:00 Test Item Value Reference Range Comments MAGNESIUM (BEAKER) (test 1.5 mg/dL 1.6-2.6 Specimen slightly hemolyzed glza=625) [id number] 07:24:00 Test Item Value Reference Range Comments PHOSPHORUS (BEAKER) (test 2.3 mg/dL 2.3-4.7 Specimen slightly hemolyzed xibc=709) BASIC METABOLIC [id number] 07:24:00 Test Item Value Reference Range Comments SODIUM (BEAKER) (test 135 meq/L 136-145 oadh=723) POTASSIUM (BEAKER) (test 4.4 meq/L 3.5-5.1 Specimen slightly wgwq=117) hemolyzed CHLORIDE (BEAKER) (test 100 meq/L 98-107 axzv=592) CO2 (BEAKER) (test 26 meq/L 22-29 kcox=209) BLOOD UREA NITROGEN 8 mg/dL 7-21 (BEAKER) (test xnsq=959) CREATININE (BEAKER) (test 0.58 mg/dL 0.57-1.25 Specimen slightly covo=015) hemolyzed GLUCOSE RANDOM (BEAKER) 169 mg/dL 70-105 (test vcur=576) CALCIUM (BEAKER) (test 8.7 mg/dL 8.4-10.2 tkmr=957) EGFR (BEAKER) (test 144 mL/min/1.73 sq m ESTIMATED GFR IS NOT evim=8959) ACCURATE CREATININE CLEARANCE IN PREDICTING GLOMERULAR FILTRATION RATE. ESTIMATED GFR IS NOT APPLICABLE FOR DIALYSIS PATIENTS. POCT-GLUCOSE [id number] 04:55:00 Test Item Value Reference Range Comments POC-GLUCOSE METER (BEAKER) 136 mg/dL 70-110 TESTED AT [address] (test ozsd=4798) [place] [id number] POCT-GLUCOSE [id number] 22:18:00 Test Item Value Reference Range Comments POC-GLUCOSE METER (BEAKER) 132 mg/dL 70-110 TESTED AT [address] (test jgnr=1891) [place] [id number] POCT-GLUCOSE [id number] 17:05:00 Test Item Value Reference Range Comments POC-GLUCOSE METER (BEAKER) 175 mg/dL 70-110 TESTED AT [address] (test osgb=7414) [place] [id number] OCCULT BLOOD, [id number] 13:55:00 Test Item Value Reference Range Comments FECAL OCCULT BLOOD (BEAKER) (test snun=711) Negative Negative POCT-GLUCOSE [id number] 10:38:00 Test Item Value Reference Range Comments POC-GLUCOSE METER (BEAKER) 202 mg/dL 70-110 TESTED AT [address] (test cirn=3078) [place] [id number] RAD, ABDOMEN/KUB, 1 VIEW [id number] 08:38:00Reason for exam:->NG tube placement verification.Should this [...] Guzmanepfoster Verified Date/Time: 03/07/2017 08:38:07 Reading Location: [facility] Reading Room POCT-GLUCOSE [id number] 05:28:00 Test Item Value Reference Range Comments POC-GLUCOSE METER (BEAKER) 184 mg/dL 70-110 TESTED AT [address] (test jfjw=9103) [place] [id number] POCT-GLUCOSE [id number] 22:14:00 Test Item Value Reference Range Comments POC-GLUCOSE METER (BEAKER) 126 mg/dL 70-110 TESTED AT [address] (test iikq=1526) [place] [id number] POCT-GLUCOSE [id number] 17:23:00 Test Item Value Reference Range Comments POC-GLUCOSE METER (BEAKER) 193 mg/dL 70-110 TESTED AT [address] (test tonm=0089) [place] [id number] BLOOD [id number] 14:18:00 Test Item Value Reference Range Comments CULTURE (BEAKER) (test evnd=5694) Penicillin G (test code=3) Clindamycin (test Susceptible 0-2 , code=10) Resistant <0 or >2 Metronidazole (test Susceptible 0-8 , code=56) Resistant <0 or >8 CULTURE (BEAKER) From Anaerobic Bottle Only (test nunh=4706) Clostridium speciesIdentification and susceptibility performed by:[facility], [address] [place] [id number] GRAM STAIN RESULT From anaerobic (BEAKER) (test bottle only: gram ttaa=8824) positive rods Corrected report, original organism and gram stain was from anaerobic bottle only: gram negative rodsNOT DETECTEDPanel is negative for [employer]- detectable organisms. Please refer to traditionalculture and sensitivity results as they become available.Other organisms and resistance markers not contained in this PCR panel cannot be excluded and follow-up of traditional culture results is required. This sample was tested at the [facility] Clinical Microbiology Laboratory using the [facility] FilmArrayBlood Culture ID Panel. This test is FDA cleared for in vitro diagnostic use and has been verified and approved by the [facility] Clinical Microbiology laboratory for clinical use. Reference Range: Not DetectedPOCT-GLUCOSE [id number] 14:02:00 Test Item Value Reference Range Comments POC-GLUCOSE METER (BEAKER) 225 mg/dL 70-110 TESTED AT [address] (test gqwc=0273) [place] [address] POCT-GLUCOSE [id number] 10:31:00 Test Item Value Reference Range Comments POC-GLUCOSE METER (BEAKER) 180 mg/dL 70-110 TESTED AT [address] (test usfw=1632) [place] [address] OCCULT BLOOD, [id number] 09:09:00 Test Item Value Reference Range Comments FECAL OCCULT BLOOD (BEAKER) (test gphz=986) Negative Negative CALCIUM, [id number] 06:21:00 Test Item Value Reference Range Comments CALCIUM IONIZED (BEAKER) (test bdfa=450) 0.94 mmol/L 1.12-1.27 PH, BLOOD (BEAKER) (test zwyp=4429) 7.46 [id number] 05:41:00 Test Item Value Reference Range Comments PHOSPHORUS (BEAKER) (test vugn=126) 2.2 mg/dL 2.3-4.7 [id number] 05:41:00 Test Item Value Reference Range Comments MAGNESIUM (BEAKER) (test wlus=034) 1.4 mg/dL 1.6-2.6 BASIC METABOLIC [id number] 05:41:00 Test Item Value Reference Range Comments SODIUM (BEAKER) (test 133 meq/L 136-145 ilrk=111) POTASSIUM (BEAKER) (test 4.0 meq/L 3.5-5.1 jccg=291) CHLORIDE (BEAKER) (test 100 meq/L 98-107 mage=580) CO2 (BEAKER) (test 26 meq/L 22-29 elkr=127) BLOOD UREA NITROGEN 11 mg/dL 7-21 (BEAKER) (test rzrj=558) CREATININE (BEAKER) (test 0.57 mg/dL 0.57-1.25 caax=731) GLUCOSE RANDOM (BEAKER) 150 mg/dL 70-105 (test pxic=188) CALCIUM (BEAKER) (test 8.3 mg/dL 8.4-10.2 jwnv=077) EGFR (BEAKER) (test 147 mL/min/1.73 sq m ESTIMATED GFR IS NOT ciik=2024) ACCURATE CREATININE CLEARANCE IN PREDICTING GLOMERULAR FILTRATION RATE. ESTIMATED GFR IS NOT APPLICABLE FOR DIALYSIS PATIENTS. [id number] 05:37:00 Test Item Value Reference Range Comments PARTIAL THROMBOPLASTIN TIME (BEAKER) (test 48.5 seconds 22.5-36.0 faal=400) PROTHROMBIN TIME/[id number] 05:35:00 Test Item Value Reference Range Comments PROTIME (BEAKER) (test cgev=041) 16.6 seconds 11.7-14.7 INR (BEAKER) (test ptwb=175) 1.4 <=5.9 RECOMMENDED COUMADIN/WARFARIN INR THERAPY RANGESSTANDARD DOSE: 2.0 - 3.0 Includes: PROPHYLAXIS forvenous thrombosis, systemic embolization; TREATMENT for venous thrombosis and/or pulmonary embolus.HIGH RISK: Target INR is 2.5-3.5 for patients with mechanical heart valves.CBC W/PLT COUNT & AUTO [id number] 05:23:00 Test Item Value Reference Range Comments WHITE BLOOD CELL COUNT (BEAKER) (test bikj=533) 6.5 K/ L 3.5-10.5 RED BLOOD CELL COUNT (BEAKER) (test bcxv=334) 3.29 M/ L 4.63-6.08 HEMOGLOBIN (BEAKER) (test efuc=052) 8.9 GM/DL 13.7-17.5 HEMATOCRIT (BEAKER) (test ntzj=596) 29.6 % 40.1-51.0 MEAN CORPUSCULAR VOLUME (BEAKER) (test opcc=989) 90.0 fL 79.0-92.2 MEAN CORPUSCULAR HEMOGLOBIN (BEAKER) (test 27.1 pg 25.7-32.2 voff=931) MEAN CORPUSCULAR HEMOGLOBIN CONC (BEAKER) (test 30.1 GM/DL 32.3-36.5 tqim=202) RED CELL DISTRIBUTION WIDTH (BEAKER) (test 16.0 % 11.6-14.4 fgiz=581) PLATELET COUNT (BEAKER) (test hynf=324) 435 K/CU MM 150-450 MEAN PLATELET VOLUME (BEAKER) (test saho=053) 9.1 fL 9.4-12.4 NUCLEATED RED BLOOD CELLS (BEAKER) (test 0 /100 WBC 0-0 mvoh=469) NEUTROPHILS RELATIVE PERCENT (BEAKER) (test 79 % lwto=584) LYMPHOCYTES RELATIVE PERCENT (BEAKER) (test 10 % viuk=192) MONOCYTES RELATIVE PERCENT (BEAKER) (test 9 % bmlh=830) EOSINOPHILS RELATIVE PERCENT (BEAKER) (test 1 % qozo=628) BASOPHILS RELATIVE PERCENT (BEAKER) (test 0 % surr=720) NEUTROPHILS ABSOLUTE COUNT (BEAKER) (test 5.16 K/ L 1.78-5.38 zhub=591) LYMPHOCYTES ABSOLUTE COUNT (BEAKER) (test 0.66 K/ L 1.32-3.57 ppwl=217) MONOCYTES ABSOLUTE COUNT (BEAKER) (test 0.59 K/ L 0.30-0.82 mwhr=386) EOSINOPHILS ABSOLUTE COUNT (BEAKER) (test 0.06 K/ L 0.04-0.54 rbpv=876) BASOPHILS ABSOLUTE COUNT (BEAKER) (test 0.02 K/ L 0.01-0.08 fosz=731) IMMATURE GRANULOCYTES-RELATIVE PERCENT (BEAKER) 1 % 0-1 (test uoog=8572) POCT-GLUCOSE [id number] 04:34:00 Test Item Value Reference Range Comments POC-GLUCOSE METER (BEAKER) 168 mg/dL 70-110 TESTED AT [facility] [address] [facility] (test rcdk=0716) [facility] [address] [id number] 23:24:00 Test Item Value Reference Range Comments PARTIAL THROMBOPLASTIN TIME (BEAKER) (test 50.7 seconds 22.5-36.0 eske=678) CBC (HEMOGRAM ONLY)2017-03-05 23:17:00 Test Item Value Reference Range Comments WHITE BLOOD CELL COUNT (BEAKER) (test msek=822) 7.1 K/ L 3.5-10.5 RED BLOOD CELL COUNT (BEAKER) (test fcjy=798) 3.42 M/ L 4.63-6.08 HEMOGLOBIN (BEAKER) (test xzpv=068) 9.3 GM/DL 13.7-17.5 HEMATOCRIT (BEAKER) (test yrnx=937) 31.3 % 40.1-51.0 MEAN CORPUSCULAR VOLUME (BEAKER) (test zrfg=048) 91.5 fL 79.0-92.2 MEAN CORPUSCULAR HEMOGLOBIN (BEAKER) (test 27.2 pg 25.7-32.2 vqkw=791) MEAN CORPUSCULAR HEMOGLOBIN CONC (BEAKER) (test 29.7 GM/DL 32.3-36.5 tcps=598) RED CELL DISTRIBUTION WIDTH (BEAKER) (test 16.2 % 11.6-14.4 srei=907) PLATELET COUNT (BEAKER) (test wqcq=518) 397 K/CU MM 150-450 MEAN PLATELET VOLUME (BEAKER) (test orgh=691) 9.3 fL 9.4-12.4 NUCLEATED RED BLOOD CELLS (BEAKER) (test 0 /100 WBC 0-0 ookg=398) OCCULT BLOOD, [id number] 22:48:00 Test Item Value Reference Range Comments FECAL OCCULT BLOOD (BEAKER) (test pjnn=578) Negative Negative POCT-GLUCOSE [id number] 22:08:00 Test Item Value Reference Range Comments POC-GLUCOSE METER (BEAKER) 159 mg/dL 70-110 TESTED AT [address] (test tmze=3452) [place] [id number] POCT-GLUCOSE [id number] 19:01:00 Test Item Value Reference Range Comments POC-GLUCOSE METER (BEAKER) 166 mg/dL 70-110 TESTED AT [address] (test kkhd=5588) [place] [id number] 16:17:00 Test Item Value Reference Range Comments PARTIAL THROMBOPLASTIN TIME (BEAKER) (test 41.2 seconds 22.5-36.0 pses=782) Prior to initiating heparinCBC (HEMOGRAM ONLY)2017-03-05 15:56:00 Test Item Value Reference Range Comments WHITE BLOOD CELL COUNT (BEAKER) (test watm=434) 8.2 K/ L 3.5-10.5 RED BLOOD CELL COUNT (BEAKER) (test megz=317) 3.04 M/ L 4.63-6.08 HEMOGLOBIN (BEAKER) (test xmkw=149) 8.3 GM/DL 13.7-17.5 HEMATOCRIT (BEAKER) (test pkzn=983) 27.0 % 40.1-51.0 MEAN CORPUSCULAR VOLUME (BEAKER) (test udvk=539) 88.8 fL 79.0-92.2 MEAN CORPUSCULAR HEMOGLOBIN (BEAKER) (test 27.3 pg 25.7-32.2 mktq=287) MEAN CORPUSCULAR HEMOGLOBIN CONC (BEAKER) (test 30.7 GM/DL 32.3-36.5 klll=879) RED CELL DISTRIBUTION WIDTH (BEAKER) (test 15.9 % 11.6-14.4 scfj=362) PLATELET COUNT (BEAKER) (test weor=079) 474 K/CU MM 150-450 MEAN PLATELET VOLUME (BEAKER) (test mrpv=218) 9.7 fL 9.4-12.4 NUCLEATED RED BLOOD CELLS (BEAKER) (test 0 /100 WBC 0-0 zemr=407) POCT-GLUCOSE [id number] 12:52:00 Test Item Value Reference Range Comments POC-GLUCOSE METER (BEAKER) 175 mg/dL 70-110 TESTED AT [address] (test jaum=7230) [facility] [address] POCT-GLUCOSE [id number] 09:36:00 Test Item Value Reference Range Comments POC-GLUCOSE METER (BEAKER) 162 mg/dL 70-110 TESTED AT [address] (test txzw=0691) [facility] [address] CALCIUM, [id number] 06:26:00 Test Item Value Reference Range Comments CALCIUM IONIZED (BEAKER) (test vqbl=000) 0.98 mmol/L 1.12-1.27 PH, BLOOD (BEAKER) (test ipgj=7855) 7.45 [id number] 06:10:00 Test Item Value Reference Range Comments PHOSPHORUS (BEAKER) (test pjoa=599) 2.4 mg/dL 2.3-4.7 [id number] 06:10:00 Test Item Value Reference Range Comments MAGNESIUM (BEAKER) (test ppdf=494) 1.7 mg/dL 1.6-2.6 BASIC METABOLIC [id number] 06:10:00 Test Item Value Reference Range Comments SODIUM (BEAKER) (test 136 meq/L 136-145 ifxj=945) POTASSIUM (BEAKER) (test 4.3 meq/L 3.5-5.1 mazl=764) CHLORIDE (BEAKER) (test 102 meq/L 98-107 mfua=934) CO2 (BEAKER) (test 26 meq/L 22-29 glga=252) BLOOD UREA NITROGEN 13 mg/dL 7-21 (BEAKER) (test zpqn=948) CREATININE (BEAKER) (test 0.61 mg/dL 0.57-1.25 fvpp=183) GLUCOSE RANDOM (BEAKER) 128 mg/dL 70-105 (test dvel=065) CALCIUM (BEAKER) (test 8.3 mg/dL 8.4-10.2 dpba=985) EGFR (BEAKER) (test 136 mL/min/1.73 sq m ESTIMATED GFR IS NOT xfqg=8169) ACCURATE CREATININE CLEARANCE IN PREDICTING GLOMERULAR FILTRATION RATE. ESTIMATED GFR IS NOT APPLICABLE FOR DIALYSIS PATIENTS. CBC W/PLT COUNT & AUTO [id number] 05:40:00 Test Item Value Reference Range Comments WHITE BLOOD CELL COUNT (BEAKER) (test hkvj=563) 7.8 K/ L 3.5-10.5 RED BLOOD CELL COUNT (BEAKER) (test zfwn=741) 3.21 M/ L 4.63-6.08 HEMOGLOBIN (BEAKER) (test khju=472) 8.6 GM/DL 13.7-17.5 HEMATOCRIT (BEAKER) (test essm=246) 29.3 % 40.1-51.0 MEAN CORPUSCULAR VOLUME (BEAKER) (test wqst=376) 91.3 fL 79.0-92.2 MEAN CORPUSCULAR HEMOGLOBIN (BEAKER) (test 26.8 pg 25.7-32.2 jnah=287) MEAN CORPUSCULAR HEMOGLOBIN CONC (BEAKER) (test 29.4 GM/DL 32.3-36.5 rktv=337) RED CELL DISTRIBUTION WIDTH (BEAKER) (test 16.0 % 11.6-14.4 imkq=792) PLATELET COUNT (BEAKER) (test umcf=603) 475 K/CU MM 150-450 MEAN PLATELET VOLUME (BEAKER) (test mouz=909) 9.5 fL 9.4-12.4 NUCLEATED RED BLOOD CELLS (BEAKER) (test 0 /100 WBC 0-0 vegp=544) NEUTROPHILS RELATIVE PERCENT (BEAKER) (test 79 % kglr=877) LYMPHOCYTES RELATIVE PERCENT (BEAKER) (test 11 % uifc=610) MONOCYTES RELATIVE PERCENT (BEAKER) (test 9 % npwa=019) EOSINOPHILS RELATIVE PERCENT (BEAKER) (test 1 % xpzk=541) BASOPHILS RELATIVE PERCENT (BEAKER) (test 0 % tpki=404) NEUTROPHILS ABSOLUTE COUNT (BEAKER) (test 6.13 K/ L 1.78-5.38 ctwu=071) LYMPHOCYTES ABSOLUTE COUNT (BEAKER) (test 0.83 K/ L 1.32-3.57 ptmz=447) MONOCYTES ABSOLUTE COUNT (BEAKER) (test 0.68 K/ L 0.30-0.82 oqya=867) EOSINOPHILS ABSOLUTE COUNT (BEAKER) (test 0.06 K/ L 0.04-0.54 ibfb=867) BASOPHILS ABSOLUTE COUNT (BEAKER) (test 0.02 K/ L 0.01-0.08 yfei=219) IMMATURE GRANULOCYTES-RELATIVE PERCENT (BEAKER) 1 % 0-1 (test seub=2162) POCT-GLUCOSE [id number] 03:49:00 Test Item Value Reference Range Comments POC-GLUCOSE METER (BEAKER) 140 mg/dL 70-110 TESTED AT [address] (test pjdp=2785) [facility] [address] POCT-GLUCOSE [id number] 00:28:00 Test Item Value Reference Range Comments POC-GLUCOSE METER (BEAKER) 113 mg/dL 70-110 TESTED AT [address] (test lyoo=0579) [facility] [address] POCT-GLUCOSE [id number] 21:15:00 Test Item Value Reference Range Comments POC-GLUCOSE METER (BEAKER) 129 mg/dL 70-110 TESTED AT [address] (test xtiu=4229) [facility] [address] POCT-GLUCOSE [id number] 17:56:00 Test Item Value Reference Range Comments POC-GLUCOSE METER (BEAKER) 157 mg/dL 70-110 TESTED AT [address] (test yzqs=8214) [facility] [address] POCT-GLUCOSE [id number] 15:19:00 Test Item Value Reference Range Comments POC-GLUCOSE METER (BEAKER) 168 mg/dL 70-110 TESTED AT [address] (test bdwj=1139) [facility] [address] POCT-GLUCOSE [id number] 10:08:00 Test Item Value Reference Range Comments POC-GLUCOSE METER (BEAKER) 192 mg/dL 70-110 TESTED AT [address] (test iwoo=2596) [facility] [address] POCT-GLUCOSE [id number] 08:28:00 Test Item Value Reference Range Comments POC-GLUCOSE METER (BEAKER) 190 mg/dL 70-110 TESTED AT [address] (test ixsy=3930) [facility] [address] CALCIUM, [id number] 07:52:00 Test Item Value Reference Range Comments CALCIUM IONIZED (BEAKER) (test jzjq=017) 0.96 mmol/L 1.12-1.27 PH, BLOOD (BEAKER) (test ffzl=9759) 7.48 [id number] 06:20:00 Test Item Value Reference Range Comments PHOSPHORUS (BEAKER) (test eltx=214) 2.4 mg/dL 2.3-4.7 [id number] 06:20:00 Test Item Value Reference Range Comments MAGNESIUM (BEAKER) (test hspq=915) 1.5 mg/dL 1.6-2.6 BASIC METABOLIC [id number] 06:20:00 Test Item Value Reference Range Comments SODIUM (BEAKER) (test 138 meq/L 136-145 tnsm=602) POTASSIUM (BEAKER) (test 4.2 meq/L 3.5-5.1 jgfz=742) CHLORIDE (BEAKER) (test 103 meq/L 98-107 xdjg=066) CO2 (BEAKER) (test 28 meq/L 22-29 aqqz=033) BLOOD UREA NITROGEN 12 mg/dL 7-21 (BEAKER) (test duac=693) CREATININE (BEAKER) (test 0.60 mg/dL 0.57-1.25 mjec=882) GLUCOSE RANDOM (BEAKER) 156 mg/dL 70-105 (test xgdl=536) CALCIUM (BEAKER) (test 8.4 mg/dL 8.4-10.2 imge=285) EGFR (BEAKER) (test 138 mL/min/1.73 sq m ESTIMATED GFR IS NOT gsgm=3385) ACCURATE CREATININE CLEARANCE IN PREDICTING GLOMERULAR FILTRATION RATE. ESTIMATED GFR IS NOT APPLICABLE FOR DIALYSIS PATIENTS. POCT-GLUCOSE [id number] 05:56:00 Test Item Value Reference Range Comments POC-GLUCOSE METER (BEAKER) 122 mg/dL 70-110 TESTED AT [facility] [address] [facility] (test vsrf=5078) [facility] [address] CBC W/PLT COUNT & AUTO [id number] 05:48:00 Test Item Value Reference Range Comments WHITE BLOOD CELL COUNT (BEAKER) (test awmw=285) 8.6 K/ L 3.5-10.5 RED BLOOD CELL COUNT (BEAKER) (test ebwd=471) 3.24 M/ L 4.63-6.08 HEMOGLOBIN (BEAKER) (test emrl=543) 8.8 GM/DL 13.7-17.5 HEMATOCRIT (BEAKER) (test tpiz=098) 29.6 % 40.1-51.0 MEAN CORPUSCULAR VOLUME (BEAKER) (test ztjq=382) 91.4 fL 79.0-92.2 MEAN CORPUSCULAR HEMOGLOBIN (BEAKER) (test 27.2 pg 25.7-32.2 ltri=203) MEAN CORPUSCULAR HEMOGLOBIN CONC (BEAKER) (test 29.7 GM/DL 32.3-36.5 osoe=493) RED CELL DISTRIBUTION WIDTH (BEAKER) (test 15.9 % 11.6-14.4 qyeg=851) PLATELET COUNT (BEAKER) (test nejk=859) 475 K/CU MM 150-450 MEAN PLATELET VOLUME (BEAKER) (test xcin=637) 9.4 fL 9.4-12.4 NUCLEATED RED BLOOD CELLS (BEAKER) (test 0 /100 WBC 0-0 ohyf=561) NEUTROPHILS RELATIVE PERCENT (BEAKER) (test 83 % gidb=506) LYMPHOCYTES RELATIVE PERCENT (BEAKER) (test 8 % atgh=941) MONOCYTES RELATIVE PERCENT (BEAKER) (test 7 % iwuk=951) EOSINOPHILS RELATIVE PERCENT (BEAKER) (test 1 % tqda=577) BASOPHILS RELATIVE PERCENT (BEAKER) (test 0 % zkhr=576) NEUTROPHILS ABSOLUTE COUNT (BEAKER) (test 7.20 K/ L 1.78-5.38 zzrg=614) LYMPHOCYTES ABSOLUTE COUNT (BEAKER) (test 0.70 K/ L 1.32-3.57 lben=882) MONOCYTES ABSOLUTE COUNT (BEAKER) (test 0.59 K/ L 0.30-0.82 hftb=970) EOSINOPHILS ABSOLUTE COUNT (BEAKER) (test 0.07 K/ L 0.04-0.54 tlwk=973) BASOPHILS ABSOLUTE COUNT (BEAKER) (test 0.03 K/ L 0.01-0.08 pjkm=284) IMMATURE GRANULOCYTES-RELATIVE PERCENT (BEAKER) 1 % 0-1 (test rrms=2970) CBC W/PLT COUNT & AUTO [id number] 05:48:00 Test Item Value Reference Range Comments WHITE BLOOD CELL COUNT (BEAKER) (test uxyu=997) 8.7 K/ L 3.5-10.5 RED BLOOD CELL COUNT (BEAKER) (test cxjq=210) 3.26 M/ L 4.63-6.08 HEMOGLOBIN (BEAKER) (test aieg=706) 8.9 GM/DL 13.7-17.5 HEMATOCRIT (BEAKER) (test ovji=060) 29.8 % 40.1-51.0 MEAN CORPUSCULAR VOLUME (BEAKER) (test hatc=239) 91.4 fL 79.0-92.2 MEAN CORPUSCULAR HEMOGLOBIN (BEAKER) (test 27.3 pg 25.7-32.2 wjet=034) MEAN CORPUSCULAR HEMOGLOBIN CONC (BEAKER) (test 29.9 GM/DL 32.3-36.5 qjyg=714) RED CELL DISTRIBUTION WIDTH (BEAKER) (test 15.9 % 11.6-14.4 wmgi=864) PLATELET COUNT (BEAKER) (test lgol=373) 475 K/CU MM 150-450 MEAN PLATELET VOLUME (BEAKER) (test idia=523) 9.4 fL 9.4-12.4 NUCLEATED RED BLOOD CELLS (BEAKER) (test 0 /100 WBC 0-0 vqgz=637) NEUTROPHILS RELATIVE PERCENT (BEAKER) (test 84 % nwxt=892) LYMPHOCYTES RELATIVE PERCENT (BEAKER) (test 8 % snbh=792) MONOCYTES RELATIVE PERCENT (BEAKER) (test 7 % xnwu=727) EOSINOPHILS RELATIVE PERCENT (BEAKER) (test 1 % jeks=756) BASOPHILS RELATIVE PERCENT (BEAKER) (test 1 % vncs=319) NEUTROPHILS ABSOLUTE COUNT (BEAKER) (test 7.27 K/ L 1.78-5.38 jhgn=872) LYMPHOCYTES ABSOLUTE COUNT (BEAKER) (test 0.65 K/ L 1.32-3.57 dfhk=259) MONOCYTES ABSOLUTE COUNT (BEAKER) (test 0.60 K/ L 0.30-0.82 qmsq=802) EOSINOPHILS ABSOLUTE COUNT (BEAKER) (test 0.07 K/ L 0.04-0.54 ybjo=642) BASOPHILS ABSOLUTE COUNT (BEAKER) (test 0.04 K/ L 0.01-0.08 flyz=283) IMMATURE GRANULOCYTES-RELATIVE PERCENT (BEAKER) 1 % 0-1 (test inen=2002) POCT-GLUCOSE [id number] 02:45:00 Test Item Value Reference Range Comments POC-GLUCOSE METER (BEAKER) 131 mg/dL 70-110 TESTED AT [address] (test cltb=7432) [place] [address] OCCULT BLOOD, [id number] 01:43:00 Test Item Value Reference Range Comments FECAL OCCULT BLOOD (BEAKER) (test feio=312) Positive Negative POCT-GLUCOSE [id number] 21:09:00 Test Item Value Reference Range Comments POC-GLUCOSE METER (BEAKER) 104 mg/dL 70-110 TESTED AT [address] (test gmsg=7170) [place] [address] POCT-GLUCOSE [id number] 16:40:00 Test Item Value Reference Range Comments POC-GLUCOSE METER (BEAKER) 233 mg/dL 70-110 TESTED AT [address] (test gyxg=4398) [place] [address] [id number] 14:38:00 Test Item Value Reference Range Comments PARTIAL THROMBOPLASTIN TIME (BEAKER) (test 90.4 seconds 22.5-36.0 wqaw=659) RAD, ABDOMEN/KUB, 1 VIEW [id number] 14:33:00Reason for exam:->NG placementShould this be performed [...] Cochran Verified Date/Time: 2017 14:33:02 Reading Location: [place] [id number] Ortho Consult Reading Room RAD, CHEST, 1 VIEW, NON [id number] 14:20:00Reason for exam:->NG placementShould this be performed [...] Cochran Verified Date/Time: 03/03/2017 14:20:07 Reading Location: [facility] [id number] Ortho Consult Reading Room POCT-GLUCOSE [id number] 13:04:00 Test Item Value Reference Range Comments POC-GLUCOSE METER (BEAKER) 188 mg/dL 70-110 TESTED AT [address] (test jhjf=3713) [place] [address] POCT-GLUCOSE [id number] 08:26:00 Test Item Value Reference Range Comments POC-GLUCOSE METER (BEAKER) 264 mg/dL 70-110 TESTED AT [address] (test qxxa=1818) [place] [address] CALCIUM, [id number] 06:30:00 Test Item Value Reference Range Comments CALCIUM IONIZED (BEAKER) (test qyrb=462) 1.04 mmol/L 1.12-1.27 PH, BLOOD (BEAKER) (test uexy=2357) 7.37 [id number] 06:12:00 Test Item Value Reference Range Comments PHOSPHORUS (BEAKER) (test memt=013) 3.0 mg/dL 2.3-4.7 [id number] 06:12:00 Test Item Value Reference Range Comments MAGNESIUM (BEAKER) (test gcoc=681) 1.7 mg/dL 1.6-2.6 BASIC METABOLIC [id number] 06:12:00 Test Item Value Reference Range Comments SODIUM (BEAKER) (test 137 meq/L 136-145 yjer=456) POTASSIUM (BEAKER) (test 4.3 meq/L 3.5-5.1 tbvi=151) CHLORIDE (BEAKER) (test 101 meq/L 98-107 eaml=141) CO2 (BEAKER) (test 28 meq/L 22-29 zpja=328) BLOOD UREA NITROGEN 16 mg/dL 7-21 (BEAKER) (test fiil=291) CREATININE (BEAKER) (test 0.66 mg/dL 0.57-1.25 fqdc=798) GLUCOSE RANDOM (BEAKER) 192 mg/dL 70-105 (test ztde=757) CALCIUM (BEAKER) (test 8.7 mg/dL 8.4-10.2 semj=823) EGFR (BEAKER) (test 124 mL/min/1.73 sq m ESTIMATED GFR IS NOT apvf=6657) ACCURATE CREATININE CLEARANCE IN PREDICTING GLOMERULAR FILTRATION RATE. ESTIMATED GFR IS NOT APPLICABLE FOR DIALYSIS PATIENTS. [id number] 06:00:00 Test Item Value Reference Range Comments PARTIAL THROMBOPLASTIN TIME (BEAKER) (test 51.3 seconds 22.5-36.0 tjhi=963) CBC W/PLT COUNT & AUTO [id number] 05:58:00 Test Item Value Reference Range Comments WHITE BLOOD CELL COUNT (BEAKER) (test wpdd=290) 8.1 K/ L 3.5-10.5 RED BLOOD CELL COUNT (BEAKER) (test sazb=195) 3.46 M/ L 4.63-6.08 HEMOGLOBIN (BEAKER) (test ruzn=457) 9.4 GM/DL 13.7-17.5 HEMATOCRIT (BEAKER) (test rtrt=427) 32.2 % 40.1-51.0 MEAN CORPUSCULAR VOLUME (BEAKER) (test uvaa=583) 93.1 fL 79.0-92.2 MEAN CORPUSCULAR HEMOGLOBIN (BEAKER) (test 27.2 pg 25.7-32.2 bfsa=046) MEAN CORPUSCULAR HEMOGLOBIN CONC (BEAKER) (test 29.2 GM/DL 32.3-36.5 iwfj=067) RED CELL DISTRIBUTION WIDTH (BEAKER) (test 16.3 % 11.6-14.4 ctey=128) PLATELET COUNT (BEAKER) (test mcin=962) 471 K/CU MM 150-450 MEAN PLATELET VOLUME (BEAKER) (test dbca=787) 9.6 fL 9.4-12.4 NUCLEATED RED BLOOD CELLS (BEAKER) (test 0 /100 WBC 0-0 dlgc=243) NEUTROPHILS RELATIVE PERCENT (BEAKER) (test 76 % qpyc=080) LYMPHOCYTES RELATIVE PERCENT (BEAKER) (test 14 % dgdm=534) MONOCYTES RELATIVE PERCENT (BEAKER) (test 8 % htha=004) EOSINOPHILS RELATIVE PERCENT (BEAKER) (test 1 % sobz=329) BASOPHILS RELATIVE PERCENT (BEAKER) (test 0 % aiop=917) NEUTROPHILS ABSOLUTE COUNT (BEAKER) (test 6.13 K/ L 1.78-5.38 vxhw=058) LYMPHOCYTES ABSOLUTE COUNT (BEAKER) (test 1.14 K/ L 1.32-3.57 zpaw=089) MONOCYTES ABSOLUTE COUNT (BEAKER) (test 0.66 K/ L 0.30-0.82 egux=577) EOSINOPHILS ABSOLUTE COUNT (BEAKER) (test 0.08 K/ L 0.04-0.54 geed=047) BASOPHILS ABSOLUTE COUNT (BEAKER) (test 0.03 K/ L 0.01-0.08 trjz=455) IMMATURE GRANULOCYTES-RELATIVE PERCENT (BEAKER) 1 % 0-1 (test aoyx=0312) POCT-GLUCOSE [id number] 04:02:00 Test Item Value Reference Range Comments POC-GLUCOSE METER (BEAKER) 168 mg/dL 70-110 TESTED AT [address] (test jlbu=9823) [facility] [id number] POCT-GLUCOSE [id number] 21:21:00 Test Item Value Reference Range Comments POC-GLUCOSE METER (BEAKER) 87 mg/dL 70-110 TESTED AT [address] (test lypt=3388) [facility] [address] POCT-GLUCOSE [id number] 21:21:00 Test Item Value Reference Range Comments POC-GLUCOSE METER (BEAKER) 82 mg/dL 70-110 TESTED AT [address] (test gyqv=7944) [facility] [address] POCT-GLUCOSE [id number] 19:01:00 Test Item Value Reference Range Comments POC-GLUCOSE METER (BEAKER) 88 mg/dL 70-110 TESTED AT [address] (test mjcs=3828) [facility] [address] POCT-GLUCOSE [id number] 17:50:00 Test Item Value Reference Range Comments POC-GLUCOSE METER (BEAKER) 51 mg/dL 70-110 TESTED AT [address] (test uxip=7979) [facility] [address] POCT-GLUCOSE [id number] 12:06:00 Test Item Value Reference Range Comments POC-GLUCOSE METER (BEAKER) 186 mg/dL 70-110 TESTED AT [address] (test cfxe=1351) [facility] [address] POCT-GLUCOSE [id number] 09:00:00 Test Item Value Reference Range Comments POC-GLUCOSE METER (BEAKER) 192 mg/dL 70-110 TESTED AT [address] (test ybpr=4332) [facility] [address] T4, [id number] 07:27:00 Test Item Value Reference Range Comments FREE T4 (BEAKER) (test xwzg=358) 1.17 ng/dL 0.70-1.48 TSH/FREE T4 IF [id number] 07:27:00 Test Item Value Reference Range Comments THYROID STIMULATING HORMONE (BEAKER) (test 0.38 uIU/mL 0.35-4.94 weua=164) [id number] 07:09:00 Test Item Value Reference Range Comments PHOSPHORUS (BEAKER) (test huop=137) 2.9 mg/dL 2.3-4.7 [id number] 07:09:00 Test Item Value Reference Range Comments MAGNESIUM (BEAKER) (test evpf=023) 1.6 mg/dL 1.6-2.6 BASIC METABOLIC [id number] 07:09:00 Test Item Value Reference Range Comments SODIUM (BEAKER) (test 137 meq/L 136-145 vbit=988) POTASSIUM (BEAKER) (test 4.6 meq/L 3.5-5.1 arhz=994) CHLORIDE (BEAKER) (test 102 meq/L 98-107 aelm=010) CO2 (BEAKER) (test 26 meq/L 22-29 epfg=975) BLOOD UREA NITROGEN 20 mg/dL 7-21 (BEAKER) (test jeww=262) CREATININE (BEAKER) (test 0.63 mg/dL 0.57-1.25 gtld=460) GLUCOSE RANDOM (BEAKER) 107 mg/dL 70-105 (test mjsu=932) CALCIUM (BEAKER) (test 8.5 mg/dL 8.4-10.2 lrua=366) EGFR (BEAKER) (test 131 mL/min/1.73 sq m ESTIMATED GFR IS NOT frri=3953) ACCURATE CREATININE CLEARANCE IN PREDICTING GLOMERULAR FILTRATION RATE. ESTIMATED GFR IS NOT APPLICABLE FOR DIALYSIS PATIENTS. CBC W/PLT COUNT & AUTO [id number] 06:48:00 Test Item Value Reference Range Comments WHITE BLOOD CELL COUNT (BEAKER) (test ewgq=136) 8.7 K/ L 3.5-10.5 RED BLOOD CELL COUNT (BEAKER) (test zqdu=589) 3.15 M/ L 4.63-6.08 HEMOGLOBIN (BEAKER) (test tuhh=922) 8.8 GM/DL 13.7-17.5 HEMATOCRIT (BEAKER) (test isvz=008) 29.4 % 40.1-51.0 MEAN CORPUSCULAR VOLUME (BEAKER) (test faye=411) 93.3 fL 79.0-92.2 MEAN CORPUSCULAR HEMOGLOBIN (BEAKER) (test 27.9 pg 25.7-32.2 fiqj=200) MEAN CORPUSCULAR HEMOGLOBIN CONC (BEAKER) (test 29.9 GM/DL 32.3-36.5 dbkb=445) RED CELL DISTRIBUTION WIDTH (BEAKER) (test 16.3 % 11.6-14.4 tftf=887) PLATELET COUNT (BEAKER) (test vrdl=641) 459 K/CU MM 150-450 MEAN PLATELET VOLUME (BEAKER) (test merz=386) 9.9 fL 9.4-12.4 NUCLEATED RED BLOOD CELLS (BEAKER) (test 0 /100 WBC 0-0 cspj=346) NEUTROPHILS RELATIVE PERCENT (BEAKER) (test 78 % rhbc=019) LYMPHOCYTES RELATIVE PERCENT (BEAKER) (test 12 % pxyt=242) MONOCYTES RELATIVE PERCENT (BEAKER) (test 8 % kqim=485) EOSINOPHILS RELATIVE PERCENT (BEAKER) (test 1 % zpsl=323) BASOPHILS RELATIVE PERCENT (BEAKER) (test 0 % nchx=708) NEUTROPHILS ABSOLUTE COUNT (BEAKER) (test 6.76 K/ L 1.78-5.38 hnpl=942) LYMPHOCYTES ABSOLUTE COUNT (BEAKER) (test 1.03 K/ L 1.32-3.57 nkkn=681) MONOCYTES ABSOLUTE COUNT (BEAKER) (test 0.72 K/ L 0.30-0.82 lnkw=413) EOSINOPHILS ABSOLUTE COUNT (BEAKER) (test 0.09 K/ L 0.04-0.54 tsaf=106) BASOPHILS ABSOLUTE COUNT (BEAKER) (test 0.02 K/ L 0.01-0.08 pnvf=771) IMMATURE GRANULOCYTES-RELATIVE PERCENT (BEAKER) 1 % 0-1 (test wytx=2616) POCT-GLUCOSE [id number] 06:16:00 Test Item Value Reference Range Comments POC-GLUCOSE METER (BEAKER) 113 mg/dL 70-110 TESTED AT [address] (test tucg=1303) [facility] [address] CALCIUM, [id number] 05:43:00 Test Item Value Reference Range Comments CALCIUM IONIZED (BEAKER) (test cgmu=081) 0.94 mmol/L 1.12-1.27 PH, BLOOD (BEAKER) (test juzc=0270) 7.52 POCT-GLUCOSE [id number] 00:42:00 Test Item Value Reference Range Comments POC-GLUCOSE METER (BEAKER) 154 mg/dL 70-110 TESTED AT [address] (test cjre=8275) [facility] [address] POCT-GLUCOSE [id number] 18:00:00 Test Item Value Reference Range Comments POC-GLUCOSE METER (BEAKER) 134 mg/dL 70-110 TESTED AT [facility] [address] [facility] (test wcoa=6808) [facility] [address] POCT-GLUCOSE [id number] 12:46:00 Test Item Value Reference Range Comments POC-GLUCOSE METER (BEAKER) 197 mg/dL 70-110 TESTED AT [address] (test auzo=4447) [facility] [address] POCT-GLUCOSE [id number] 11:37:00 Test Item Value Reference Range Comments POC-GLUCOSE METER (BEAKER) 174 mg/dL 70-110 TESTED AT [address] (test upqd=7564) [facility] [address] CALCIUM, [id number] 05:19:00 Test Item Value Reference Range Comments CALCIUM IONIZED (BEAKER) (test xuqm=529) 1.16 mmol/L 1.12-1.27 PH, BLOOD (BEAKER) (test rqan=5203) 7.44 [id number] 05:15:00 Test Item Value Reference Range Comments PHOSPHORUS (BEAKER) (test kici=120) 2.9 mg/dL 2.3-4.7 [id number] 05:15:00 Test Item Value Reference Range Comments MAGNESIUM (BEAKER) (test fuwj=200) 1.8 mg/dL 1.6-2.6 BASIC METABOLIC [id number] 05:15:00 Test Item Value Reference Range Comments SODIUM (BEAKER) (test 140 meq/L 136-145 knlz=616) POTASSIUM (BEAKER) (test 4.6 meq/L 3.5-5.1 ywff=233) CHLORIDE (BEAKER) (test 104 meq/L 98-107 ycof=373) CO2 (BEAKER) (test 30 meq/L 22-29 raik=220) BLOOD UREA NITROGEN 20 mg/dL 7-21 (BEAKER) (test acga=780) CREATININE (BEAKER) (test 0.63 mg/dL 0.57-1.25 vfny=365) GLUCOSE RANDOM (BEAKER) 142 mg/dL 70-105 (test hfbo=963) CALCIUM (BEAKER) (test 8.5 mg/dL 8.4-10.2 nmyx=521) EGFR (BEAKER) (test 131 mL/min/1.73 sq m ESTIMATED GFR IS NOT iugx=1466) ACCURATE CREATININE CLEARANCE IN PREDICTING GLOMERULAR FILTRATION RATE. ESTIMATED GFR IS NOT APPLICABLE FOR DIALYSIS PATIENTS. CBC W/PLT COUNT & AUTO [id number] 04:40:00 Test Item Value Reference Range Comments WHITE BLOOD CELL COUNT (BEAKER) (test bumh=815) 7.9 K/ L 3.5-10.5 RED BLOOD CELL COUNT (BEAKER) (test tfki=352) 3.14 M/ L 4.63-6.08 HEMOGLOBIN (BEAKER) (test fcea=639) 8.5 GM/DL 13.7-17.5 HEMATOCRIT (BEAKER) (test toes=998) 29.2 % 40.1-51.0 MEAN CORPUSCULAR VOLUME (BEAKER) (test jgal=913) 93.0 fL 79.0-92.2 MEAN CORPUSCULAR HEMOGLOBIN (BEAKER) (test 27.1 pg 25.7-32.2 txgn=459) MEAN CORPUSCULAR HEMOGLOBIN CONC (BEAKER) (test 29.1 GM/DL 32.3-36.5 vtlf=273) RED CELL DISTRIBUTION WIDTH (BEAKER) (test 16.3 % 11.6-14.4 aeej=185) PLATELET COUNT (BEAKER) (test layy=783) 469 K/CU MM 150-450 MEAN PLATELET VOLUME (BEAKER) (test kphz=203) 9.8 fL 9.4-12.4 NUCLEATED RED BLOOD CELLS (BEAKER) (test 0 /100 WBC 0-0 nsig=678) NEUTROPHILS RELATIVE PERCENT (BEAKER) (test 74 % vkch=984) LYMPHOCYTES RELATIVE PERCENT (BEAKER) (test 13 % amso=577) MONOCYTES RELATIVE PERCENT (BEAKER) (test 9 % dwst=684) EOSINOPHILS RELATIVE PERCENT (BEAKER) (test 2 % vspx=016) BASOPHILS RELATIVE PERCENT (BEAKER) (test 1 % ehym=190) NEUTROPHILS ABSOLUTE COUNT (BEAKER) (test 5.91 K/ L 1.78-5.38 sckz=561) LYMPHOCYTES ABSOLUTE COUNT (BEAKER) (test 1.05 K/ L 1.32-3.57 pwpe=198) MONOCYTES ABSOLUTE COUNT (BEAKER) (test 0.72 K/ L 0.30-0.82 qcmc=129) EOSINOPHILS ABSOLUTE COUNT (BEAKER) (test 0.12 K/ L 0.04-0.54 lfwk=443) BASOPHILS ABSOLUTE COUNT (BEAKER) (test 0.04 K/ L 0.01-0.08 gavl=994) IMMATURE GRANULOCYTES-RELATIVE PERCENT (AKER) 1 % 0-1 (test aqos=2015) POCT-GLUCOSE [id number] 21:22:00 Test Item Value Reference Range Comments POC-GLUCOSE METER (BEAKER) 143 mg/dL 70-110 TESTED AT [address] (test crqj=3933) [place] [address] POCT-GLUCOSE [id number] 18:03:00 Test Item Value Reference Range Comments POC-GLUCOSE METER (BEAKER) 123 mg/dL 70-110 TESTED AT [address] (test akjz=0794) [place] [address] POCT-GLUCOSE [id number] 12:49:00 Test Item Value Reference Range Comments POC-GLUCOSE METER (BEAKER) 197 mg/dL 70-110 TESTED AT [address] (test ufjr=5648) [place] [address] FUNGUS CULTURE + [id number] 11:55:00 Test Item Value Reference Range Comments CULTURE (BEAKER) (test No fungus isolated in 28 days eddj=3972) FUNGUS SMEAR (BEAKER) (test No fungi seen lxdv=1180) POCT-GLUCOSE [id number] 08:30:00 Test Item Value Reference Range Comments POC-GLUCOSE METER (BEAKER) 259 mg/dL 70-110 TESTED AT [address] (test vrvl=6520) [place] [address] POCT-GLUCOSE [id number] 06:35:00 Test Item Value Reference Range Comments POC-GLUCOSE METER (BEAKER) 342 mg/dL 70-110 TESTED AT [address] (test trls=2627) [place] [address] [id number] 06:23:00 Test Item Value Reference Range Comments THYROID STIMULATING HORMONE (BEAKER) (test 0.51 uIU/mL 0.35-4.94 xynm=007) CBC W/PLT COUNT & AUTO [id number] 06:17:00 Test Item Value Reference Range Comments WHITE BLOOD CELL COUNT (BEAKER) (test vgea=569) 10.4 K/ L 3.5-10.5 RED BLOOD CELL COUNT (BEAKER) (test mbay=689) 3.11 M/ L 4.63-6.08 HEMOGLOBIN (BEAKER) (test jdes=234) 8.6 GM/DL 13.7-17.5 HEMATOCRIT (BEAKER) (test oqnz=123) 29.2 % 40.1-51.0 MEAN CORPUSCULAR VOLUME (BEAKER) (test jxop=258) 93.9 fL 79.0-92.2 MEAN CORPUSCULAR HEMOGLOBIN (BEAKER) (test 27.7 pg 25.7-32.2 yyfw=570) MEAN CORPUSCULAR HEMOGLOBIN CONC (BEAKER) (test 29.5 GM/DL 32.3-36.5 sfoo=319) RED CELL DISTRIBUTION WIDTH (BEAKER) (test 16.2 % 11.6-14.4 hftm=767) PLATELET COUNT (BEAKER) (test dvbq=712) 480 K/CU MM 150-450 MEAN PLATELET VOLUME (BEAKER) (test xqva=219) 10.2 fL 9.4-12.4 NUCLEATED RED BLOOD CELLS (BEAKER) (test 1 /100 WBC 0-0 qejo=985) NEUTROPHILS RELATIVE PERCENT (BEAKER) (test 77 % tuwv=913) LYMPHOCYTES RELATIVE PERCENT (BEAKER) (test 11 % xjpn=063) MONOCYTES RELATIVE PERCENT (BEAKER) (test 8 % nojw=538) EOSINOPHILS RELATIVE PERCENT (BEAKER) (test 2 % qilh=587) BASOPHILS RELATIVE PERCENT (BEAKER) (test 1 % kejk=503) NEUTROPHILS ABSOLUTE COUNT (BEAKER) (test 8.04 K/ L 1.78-5.38 qyot=821) LYMPHOCYTES ABSOLUTE COUNT (BEAKER) (test 1.09 K/ L 1.32-3.57 lcve=584) MONOCYTES ABSOLUTE COUNT (BEAKER) (test 0.84 K/ L 0.30-0.82 idfq=442) EOSINOPHILS ABSOLUTE COUNT (BEAKER) (test 0.16 K/ L 0.04-0.54 eujq=957) BASOPHILS ABSOLUTE COUNT (BEAKER) (test 0.05 K/ L 0.01-0.08 cmbc=730) IMMATURE GRANULOCYTES-RELATIVE PERCENT (BEAKER) 2 % 0-1 (test mqyu=8867) CALCIUM, [id number] 06:10:00 Test Item Value Reference Range Comments CALCIUM IONIZED (BEAKER) (test paeh=061) 1.09 mmol/L 1.12-1.27 PH, BLOOD (BEAKER) (test ktfj=4816) 7.41 [id number] 06:01:00 Test Item Value Reference Range Comments PHOSPHORUS (BEAKER) (test onsf=033) 2.6 mg/dL 2.3-4.7 [id number] 06:01:00 Test Item Value Reference Range Comments MAGNESIUM (BEAKER) (test sdlr=479) 1.8 mg/dL 1.6-2.6 BASIC METABOLIC [id number] 06:01:00 Test Item Value Reference Range Comments SODIUM (BEAKER) (test 142 meq/L 136-145 htfh=110) POTASSIUM (BEAKER) (test 4.7 meq/L 3.5-5.1 ceel=473) CHLORIDE (BEAKER) (test 106 meq/L 98-107 okxb=664) CO2 (BEAKER) (test 28 meq/L 22-29 wxfb=149) BLOOD UREA NITROGEN 20 mg/dL 7-21 (BEAKER) (test zrzc=707) CREATININE (BEAKER) (test 0.63 mg/dL 0.57-1.25 mddo=291) GLUCOSE RANDOM (BEAKER) 190 mg/dL 70-105 (test psud=939) CALCIUM (BEAKER) (test 8.7 mg/dL 8.4-10.2 isuf=930) EGFR (BEAKER) (test 131 mL/min/1.73 sq m ESTIMATED GFR IS NOT fffa=0244) ACCURATE CREATININE CLEARANCE IN PREDICTING GLOMERULAR FILTRATION RATE. ESTIMATED GFR IS NOT APPLICABLE FOR DIALYSIS PATIENTS. POCT-GLUCOSE [id number] 00:28:00 Test Item Value Reference Range Comments POC-GLUCOSE METER (BEAKER) 227 mg/dL 70-110 TESTED AT [address] (test lskv=6224) [facility] [address] POCT-GLUCOSE [id number] 21:44:00 Test Item Value Reference Range Comments POC-GLUCOSE METER (BEAKER) 253 mg/dL 70-110 TESTED AT [address] (test ejzh=0314) [facility] [address] POCT-GLUCOSE [id number] 17:44:00 Test Item Value Reference Range Comments POC-GLUCOSE METER (BEAKER) 222 mg/dL 70-110 TESTED AT [address] (test cwfj=5089) [facility] [address] POCT-GLUCOSE [id number] 11:50:00 Test Item Value Reference Range Comments POC-GLUCOSE METER (BEAKER) 93 mg/dL 70-110 TESTED AT [address] (test ppkq=8598) [facility] [address] POCT-GLUCOSE [id number] 10:35:00 Test Item Value Reference Range Comments POC-GLUCOSE METER (BEAKER) 86 mg/dL 70-110 TESTED AT [address] (test ylkv=8527) [facility] [address] POCT-GLUCOSE [id number] 09:53:00 Test Item Value Reference Range Comments POC-GLUCOSE METER (BEAKER) 60 mg/dL 70-110 Notified CATE NICHOLS/TESTED AT [facility] (test cdem=9763) [address] [place] [address] POCT-GLUCOSE [id number] 09:18:00 Test Item Value Reference Range Comments POC-GLUCOSE METER (BEAKER) 63 mg/dL 70-110 Notified CATE NICHOLS/TESTED AT [facility] (test bpzq=7473) [address] [place] [address] POCT-GLUCOSE [id number] 08:48:00 Test Item Value Reference Range Comments POC-GLUCOSE METER (BEAKER) 55 mg/dL 70-110 Notified CATE NICHOLS/TESTED AT [facility] (test ngta=9267) [address] [place] [address] POCT-GLUCOSE [id number] 05:48:00 Test Item Value Reference Range Comments POC-GLUCOSE METER (BEAKER) 85 mg/dL 70-110 TESTED AT [address] (test inpm=7380) [place] [address] [id number] 05:27:00 Test Item Value Reference Range Comments PHOSPHORUS (BEAKER) (test vzex=111) 2.4 mg/dL 2.3-4.7 [id number] 05:27:00 Test Item Value Reference Range Comments MAGNESIUM (BEAKER) (test jcfv=218) 1.9 mg/dL 1.6-2.6 BASIC METABOLIC [id number] 05:27:00 Test Item Value Reference Range Comments SODIUM (BEAKER) (test 145 meq/L 136-145 qgwg=738) POTASSIUM (BEAKER) (test 4.0 meq/L 3.5-5.1 teay=239) CHLORIDE (BEAKER) (test 108 meq/L 98-107 qygp=965) CO2 (BEAKER) (test 28 meq/L 22-29 qhvm=880) BLOOD UREA NITROGEN 22 mg/dL 7-21 (BEAKER) (test cjjx=845) CREATININE (BEAKER) (test 0.64 mg/dL 0.57-1.25 hqhf=513) GLUCOSE RANDOM (BEAKER) 76 mg/dL 70-105 (test ujfo=412) CALCIUM (BEAKER) (test 8.6 mg/dL 8.4-10.2 scct=608) EGFR (BEAKER) (test 128 mL/min/1.73 sq m ESTIMATED GFR IS NOT qzfw=7273) ACCURATE CREATININE CLEARANCE IN PREDICTING GLOMERULAR FILTRATION RATE. ESTIMATED GFR IS NOT APPLICABLE FOR DIALYSIS PATIENTS. CALCIUM, [id number] 05:25:00 Test Item Value Reference Range Comments CALCIUM IONIZED (BEAKER) (test tmlf=760) 1.10 mmol/L 1.12-1.27 PH, BLOOD (BEAKER) (test zuhe=3148) 7.43 CBC W/PLT COUNT & AUTO [id number] 05:19:00 Test Item Value Reference Range Comments WHITE BLOOD CELL COUNT (BEAKER) (test zvcx=981) 10.8 K/ L 3.5-10.5 RED BLOOD CELL COUNT (BEAKER) (test ztes=587) 3.09 M/ L 4.63-6.08 HEMOGLOBIN (BEAKER) (test jabu=907) 8.7 GM/DL 13.7-17.5 HEMATOCRIT (BEAKER) (test gwxf=657) 29.1 % 40.1-51.0 MEAN CORPUSCULAR VOLUME (BEAKER) (test tnve=822) 94.2 fL 79.0-92.2 MEAN CORPUSCULAR HEMOGLOBIN (BEAKER) (test 28.2 pg 25.7-32.2 kxwn=719) MEAN CORPUSCULAR HEMOGLOBIN CONC (BEAKER) (test 29.9 GM/DL 32.3-36.5 prow=894) RED CELL DISTRIBUTION WIDTH (BEAKER) (test 16.1 % 11.6-14.4 adxd=038) PLATELET COUNT (BEAKER) (test uqyz=171) 491 K/CU MM 150-450 MEAN PLATELET VOLUME (BEAKER) (test jvrd=573) 10.3 fL 9.4-12.4 NUCLEATED RED BLOOD CELLS (BEAKER) (test 1 /100 WBC 0-0 dlpf=476) NEUTROPHILS RELATIVE PERCENT (BEAKER) (test 76 % roux=734) LYMPHOCYTES RELATIVE PERCENT (BEAKER) (test 11 % ejtm=927) MONOCYTES RELATIVE PERCENT (BEAKER) (test 7 % otcn=618) EOSINOPHILS RELATIVE PERCENT (BEAKER) (test 2 % egoi=492) BASOPHILS RELATIVE PERCENT (BEAKER) (test 0 % hbjp=892) NEUTROPHILS ABSOLUTE COUNT (BEAKER) (test 8.17 K/ L 1.78-5.38 nugc=312) LYMPHOCYTES ABSOLUTE COUNT (BEAKER) (test 1.19 K/ L 1.32-3.57 alnp=700) MONOCYTES ABSOLUTE COUNT (BEAKER) (test 0.71 K/ L 0.30-0.82 kkii=156) EOSINOPHILS ABSOLUTE COUNT (BEAKER) (test 0.17 K/ L 0.04-0.54 lysf=210) BASOPHILS ABSOLUTE COUNT (BEAKER) (test 0.04 K/ L 0.01-0.08 jjki=461) IMMATURE GRANULOCYTES-RELATIVE PERCENT (BEAKER) 5 % 0-1 (test kucc=7078) POCT-GLUCOSE [id number] 23:21:00 Test Item Value Reference Range Comments POC-GLUCOSE METER (BEAKER) 125 mg/dL 70-110 TESTED AT [address] (test wbhi=6821) [place] [id number] POCT-GLUCOSE [id number] 22:04:00 Test Item Value Reference Range Comments POC-GLUCOSE METER (BEAKER) 116 mg/dL 70-110 TESTED AT [address] (test obtx=3055) [place] [address] POCT-GLUCOSE [id number] 18:09:00 Test Item Value Reference Range Comments POC-GLUCOSE METER (BEAKER) 134 mg/dL 70-110 TESTED AT [address] (test bygc=2317) [place] [address] CBC W/PLT COUNT & AUTO [id number] 13:31:00 Test Item Value Reference Range Comments WHITE BLOOD CELL COUNT (BEAKER) (test meim=696) 13.5 K/ L 3.5-10.5 RED BLOOD CELL COUNT (BEAKER) (test cqec=472) 2.95 M/ L 4.63-6.08 HEMOGLOBIN (BEAKER) (test jclh=416) 8.2 GM/DL 13.7-17.5 HEMATOCRIT (BEAKER) (test kgjs=280) 27.6 % 40.1-51.0 MEAN CORPUSCULAR VOLUME (BEAKER) (test tevo=936) 93.6 fL 79.0-92.2 MEAN CORPUSCULAR HEMOGLOBIN (BEAKER) (test 27.8 pg 25.7-32.2 ttxx=155) MEAN CORPUSCULAR HEMOGLOBIN CONC (BEAKER) (test 29.7 GM/DL 32.3-36.5 ztim=098) RED CELL DISTRIBUTION WIDTH (BEAKER) (test 16.0 % 11.6-14.4 cgwc=299) PLATELET COUNT (BEAKER) (test wvye=606) 435 K/CU MM 150-450 MEAN PLATELET VOLUME (BEAKER) (test proi=973) 10.0 fL 9.4-12.4 NUCLEATED RED BLOOD CELLS (BEAKER) (test 1 /100 WBC 0-0 lute=728) NEUTROPHILS RELATIVE PERCENT (BEAKER) (test 77 % zbjx=957) LYMPHOCYTES RELATIVE PERCENT (BEAKER) (test 8 % yfnm=560) MONOCYTES RELATIVE PERCENT (BEAKER) (test 6 % uyzl=029) EOSINOPHILS RELATIVE PERCENT (BEAKER) (test 1 % ricq=061) BASOPHILS RELATIVE PERCENT (BEAKER) (test 0 % tlcg=094) NEUTROPHILS ABSOLUTE COUNT (BEAKER) (test 10.34 K/ L 1.78-5.38 ykcs=139) LYMPHOCYTES ABSOLUTE COUNT (BEAKER) (test 1.08 K/ L 1.32-3.57 rrvj=366) MONOCYTES ABSOLUTE COUNT (BEAKER) (test 0.82 K/ L 0.30-0.82 jxgh=166) EOSINOPHILS ABSOLUTE COUNT (BEAKER) (test 0.19 K/ L 0.04-0.54 nwbi=407) BASOPHILS ABSOLUTE COUNT (BEAKER) (test 0.03 K/ L 0.01-0.08 ojzc=250) IMMATURE GRANULOCYTES-RELATIVE PERCENT (BEAKER) 7 % 0-1 (test oxmu=9916) (MANUAL DIFFERENTIAL)2017-02-26 13:31:00 Test Item Value Reference Range Comments TOTAL COUNTED (BEAKER) (test xrmx=9580) WBC MORPHOLOGY (BEAKER) (test ucbi=606) Normal PLT MORPHOLOGY (BEAKER) (test nhpq=082) Normal RBC MORPHOLOGY (BEAKER) (test efnu=454) Normal POCT-GLUCOSE [id number] 11:53:00 Test Item Value Reference Range Comments POC-GLUCOSE METER (BEAKER) 134 mg/dL 70-110 TESTED AT [address] (test zxqu=1961) [place] [address] POCT-GLUCOSE [id number] 10:21:00 Test Item Value Reference Range Comments POC-GLUCOSE METER (BEAKER) 139 mg/dL 70-110 TESTED AT [address] (test ytvv=2243) [place] [address] MISCELLANEOUS LAB [id number] 09:33:00 Test Item Value Reference Range Comments SCAN RESULT (test nffw=[id number]) Result comments: NOT DETECTED Panel is negative for [employer] BCID-detectable organisms. Please refer to traditional culture and sensitivity results as they become available. Other organisms and resistance markers not contained in this PCR panel cannot be excluded and follow-up of traditional culture results is required. This sample was tested at the [facility] Clinical Microbiology Laboratory using the [employer] FilmArray Blood Culture ID Panel. This test is FDA cleared for in vitro diagnostic use and hasbeen verified and approved by the [facility] Clinical Microbiology laboratory for clinical use. ReferenceRange: Not DetectedPOCT-GLUCOSE [id number] 08:42:00 Test Item Value Reference Range Comments POC-GLUCOSE METER (BEAKER) 134 mg/dL 70-110 TESTED AT [address] (test eqoa=5975) [place] [address] POCT-GLUCOSE [id number] 07:08:00 Test Item Value Reference Range Comments POC-GLUCOSE METER (BEAKER) 186 mg/dL 70-110 TESTED AT [address] (test qwur=6157) [place] [address] [id number] 03:34:00 Test Item Value Reference Range Comments PHOSPHORUS (BEAKER) (test njte=162) 2.7 mg/dL 2.3-4.7 [id number] 03:34:00 Test Item Value Reference Range Comments MAGNESIUM (BEAKER) (test nihw=036) 1.8 mg/dL 1.6-2.6 BASIC METABOLIC [id number] 03:34:00 Test Item Value Reference Range Comments SODIUM (BEAKER) (test 142 meq/L 136-145 tlzz=976) POTASSIUM (BEAKER) (test 4.4 meq/L 3.5-5.1 zyig=738) CHLORIDE (BEAKER) (test 108 meq/L 98-107 ogwu=438) CO2 (BEAKER) (test 27 meq/L 22-29 amol=752) BLOOD UREA NITROGEN 21 mg/dL 7-21 (BEAKER) (test hynx=249) CREATININE (BEAKER) (test 0.66 mg/dL 0.57-1.25 rory=598) GLUCOSE RANDOM (BEAKER) 196 mg/dL 70-105 (test ycet=298) CALCIUM (BEAKER) (test 8.5 mg/dL 8.4-10.2 qpxe=091) EGFR (BEAKER) (test 124 mL/min/1.73 sq m ESTIMATED GFR IS NOT mowi=2275) ACCURATE CREATININE CLEARANCE IN PREDICTING GLOMERULAR FILTRATION RATE. ESTIMATED GFR IS NOT APPLICABLE FOR DIALYSIS PATIENTS. CALCIUM, [id number] 03:06:00 Test Item Value Reference Range Comments CALCIUM IONIZED (BEAKER) (test rrin=757) 1.17 mmol/L 1.12-1.27 PH, BLOOD (BEAKER) (test urvh=1246) 7.40 POCT-GLUCOSE [id number] 00:45:00 Test Item Value Reference Range Comments POC-GLUCOSE METER (BEAKER) 152 mg/dL 70-110 TESTED AT [address] (test vahw=9733) [facility] [address] POCT-GLUCOSE [id number] 21:46:00 Test Item Value Reference Range Comments POC-GLUCOSE METER (BEAKER) 84 mg/dL 70-110 TESTED AT [address] (test qzae=7690) [facility] [address] POCT-GLUCOSE [id number] 18:27:00 Test Item Value Reference Range Comments POC-GLUCOSE METER (BEAKER) 97 mg/dL 70-110 TESTED AT [address] (test ndyu=7611) [facility] [address] RAD, ABDOMEN/KUB, 1 VIEW [id number] 15:20:00Reason for exam:->Dobbhoff placement verification Should this be performed at the bedside?->YesFINAL REPORT INDICATION: Feeding tube placement. 1 view of the abdomen. COMPARISON: 02/24/2017 IMPRESSION: The feeding tube terminates in the distal stomach. The bowel gas pattern is nonspecific. Signed: Neil Tinsley MDReport Verified Date/Time: 02/25/2017 15:20:50 Reading Location: [address] Consult Reading Room POCT-GLUCOSE [id number] 12:54:00 Test Item Value Reference Range Comments POC-GLUCOSE METER (BEAKER) 156 mg/dL 70-110 TESTED AT [address] (test dnow=6467) [place] [id number] CBC W/PLT COUNT & AUTO [id number] 11:22:00 Test Item Value Reference Range Comments WHITE BLOOD CELL COUNT (BEAKER) (test xzom=407) 12.6 K/ L 3.5-10.5 RED BLOOD CELL COUNT (BEAKER) (test fdei=366) 2.77 M/ L 4.63-6.08 HEMOGLOBIN (BEAKER) (test bzqj=388) 7.7 GM/DL 13.7-17.5 HEMATOCRIT (BEAKER) (test nzge=254) 26.2 % 40.1-51.0 MEAN CORPUSCULAR VOLUME (BEAKER) (test snxl=646) 94.6 fL 79.0-92.2 MEAN CORPUSCULAR HEMOGLOBIN (BEAKER) (test 27.8 pg 25.7-32.2 tsdr=524) MEAN CORPUSCULAR HEMOGLOBIN CONC (BEAKER) (test 29.4 GM/DL 32.3-36.5 pmoq=008) RED CELL DISTRIBUTION WIDTH (BEAKER) (test 15.8 % 11.6-14.4 hxtu=988) PLATELET COUNT (BEAKER) (test rjgr=637) 440 K/CU MM 150-450 MEAN PLATELET VOLUME (BEAKER) (test ohry=828) 10.3 fL 9.4-12.4 NUCLEATED RED BLOOD CELLS (BEAKER) (test 3 /100 WBC 0-0 mesf=116) IMMATURE GRANULOCYTES-RELATIVE PERCENT (BEAKER) 10 % 0-1 (test aqkj=7497) (MANUAL DIFFERENTIAL)2017-02-25 11:22:00 Test Item Value Reference Range Comments NEUTROPHILS - REL (DIFF) (BEAKER) (test 76 % nxtx=6904) LYMPHOCYTES - REL (DIFF) (BEAKER) (test 7 % cfwx=1925) MONOCYTES - REL (DIFF) (BEAKER) (test buom=4918) 3 % EOSINOPHILS - REL (DIFF) (BEAKER) (test 6 % hlkn=3798) BASOPHILS - REL (DIFF) (BEAKER) (test olst=0012) 0 % METAMYELOCYTES-REL (DIFF) (BEAKER) (test 2 % 0-0 hdok=885) MYELOCYTES-REL (DIFF) (BEAKER) (test zfxr=4222) 4 % 0-0 BANDS - REL (DIFF) (BEAKER) (test xrfl=2013) 2 % 0-10 NEUTROPHILS - ABS (DIFF) (BEAKER) (test 9.58 K/ L 1.80-8.00 nwqw=5411) LYMPHOCYTES - ABS (DIFF) (BEAKER) (test 0.88 K/ L 1.48-4.50 nzsj=6956) MONOCYTES - ABS (DIFF) (BEAKER) (test rthu=6212) 0.38 K/ L 0.00-1.30 EOSINOPHILS - ABS (DIFF) (BEAKER) (test 0.76 K/ L 0.00-0.50 gohf=4280) BASOPHILS - ABS (DIFF) (BEAKER) (test qiwk=2484) 0.00 K/ L 0.00-0.20 METAMYELOCTYES - ABS (DIFF) (BEAKER) (test 0.25 K/ L 0.00-0.00 ywjz=001) BANDS-ABS (DIFF) (BEAKER) (test ghwz=3949) 0.3 K/ L 0.0-0.8 MYELOCYTES-ABS (DIFF) (BEAKER) (test bltq=3850) 0.50 K/ L 0.00-0.00 TOTAL COUNTED (BEAKER) (test wyjo=1434) 100 BANDS + SEGMENTED NEUTROPHILS (BEAKER) (test 9.83 piex=9019) MANUAL NRBC PER 100 CELLS (BEAKER) (test 2 /100 WBC 0-0 nvhj=6223) WBC MORPHOLOGY (BEAKER) (test kjcj=337) Normal PLT MORPHOLOGY (BEAKER) (test jsue=513) Normal POIKILOCYTES (BEAKER) (test yfts=882) 1+ few POLYCHROMATOPHILLIC RBCS(BEAKER) (test lhci=487) 1+ few SPHEROCYTES (BEAKER) (test phgs=077) 1+ few POCT-GLUCOSE [id number] 09:09:00 Test Item Value Reference Range Comments POC-GLUCOSE METER (BEAKER) 147 mg/dL 70-110 TESTED AT [address] (test zsxt=0016) [facility] [address] POCT-GLUCOSE [id number] 06:49:00 Test Item Value Reference Range Comments POC-GLUCOSE METER (BEAKER) 83 mg/dL 70-110 TESTED AT [address] (test bgxw=8768) [facility] [address] CALCIUM, [id number] 05:22:00 Test Item Value Reference Range Comments CALCIUM IONIZED (BEAKER) (test vnqc=885) 1.14 mmol/L 1.12-1.27 PH, BLOOD (BEAKER) (test txws=7211) 7.37 [id number] 04:49:00 Test Item Value Reference Range Comments PHOSPHORUS (BEAKER) (test rlnb=518) 2.4 mg/dL 2.3-4.7 [id number] 04:49:00 Test Item Value Reference Range Comments MAGNESIUM (BEAKER) (test tsrk=494) 1.9 mg/dL 1.6-2.6 BASIC METABOLIC [id number] 04:49:00 Test Item Value Reference Range Comments SODIUM (BEAKER) (test 141 meq/L 136-145 hoar=772) POTASSIUM (BEAKER) (test 4.1 meq/L 3.5-5.1 ryhg=350) CHLORIDE (BEAKER) (test 110 meq/L 98-107 royw=167) CO2 (BEAKER) (test 26 meq/L 22-29 bzdf=053) BLOOD UREA NITROGEN 24 mg/dL 7-21 (BEAKER) (test maee=650) CREATININE (BEAKER) (test 0.66 mg/dL 0.57-1.25 zcbz=263) GLUCOSE RANDOM (BEAKER) 113 mg/dL 70-105 (test slkt=906) CALCIUM (BEAKER) (test 8.5 mg/dL 8.4-10.2 lwwu=167) EGFR (BEAKER) (test 124 mL/min/1.73 sq m ESTIMATED GFR IS NOT cmyj=1446) ACCURATE CREATININE CLEARANCE IN PREDICTING GLOMERULAR FILTRATION RATE. ESTIMATED GFR IS NOT APPLICABLE FOR DIALYSIS PATIENTS. POCT-GLUCOSE [id number] 00:12:00 Test Item Value Reference Range Comments POC-GLUCOSE METER (BEAKER) 182 mg/dL 70-110 TESTED AT [address] (test ukhs=7328) [place] [id number] POCT-GLUCOSE [id number] 20:53:00 Test Item Value Reference Range Comments POC-GLUCOSE METER (BEAKER) 203 mg/dL 70-110 TESTED AT [address] (test eylh=8113) [place] [id number] POCT-GLUCOSE [id number] 18:25:00 Test Item Value Reference Range Comments POC-GLUCOSE METER (BEAKER) 216 mg/dL 70-110 TESTED AT [address] (test nxzk=7356) [facility] [address] BLOOD [id number] 17:00:00 Test Item Value Reference Range Comments CULTURE (BEAKER) (test zlkf=1972) No growth in 5 days BLOOD [id number] 17:00:00 Test Item Value Reference Range Comments CULTURE (BEAKER) (test nqtf=9114) No growth in 5 days POCT-GLUCOSE [id number] 12:38:00 Test Item Value Reference Range Comments POC-GLUCOSE METER (BEAKER) 197 mg/dL 70-110 TESTED AT [address] (test jstn=5998) [facility] [address] RAD, ABDOMEN/KUB, 1 VIEW [id number] 12:28:00Reason for exam:->dobhoff tube placementFINAL REPORT INDICATION: Feeding tube placement. 1 view of the abdomen. COMPARISON: No prior studies available for comparison IMPRESSION: The feeding tube terminates in the distal stomach at the gastroduodenal junction. The bowel gas pattern is nonspecific. Signed: Niel Tinsley MDReport Verified Date/Time: 02/24/2017 12:28:45 Reading Location: [facility] B1 [id number] Ortho Consult ReadingRoom CBC W/PLT COUNT & AUTO [id number] 12: 04:00 Test Item Value Reference Range Comments WHITE BLOOD CELL COUNT (BEAKER) (test fumr=191) 11.5 K/ L 3.5-10.5 RED BLOOD CELL COUNT (BEAKER) (test xudk=954) 2.80 M/ L 4.63-6.08 HEMOGLOBIN (BEAKER) (test lpak=332) 7.8 GM/DL 13.7-17.5 HEMATOCRIT (BEAKER) (test ghtp=439) 26.3 % 40.1-51.0 MEAN CORPUSCULAR VOLUME (BEAKER) (test ymbf=915) 93.9 fL 79.0-92.2 MEAN CORPUSCULAR HEMOGLOBIN (BEAKER) (test 27.9 pg 25.7-32.2 jksw=278) MEAN CORPUSCULAR HEMOGLOBIN CONC (BEAKER) (test 29.7 GM/DL 32.3-36.5 bbnl=575) RED CELL DISTRIBUTION WIDTH (BEAKER) (test 15.5 % 11.6-14.4 ldar=325) PLATELET COUNT (BEAKER) (test iced=835) 407 K/CU MM 150-450 MEAN PLATELET VOLUME (BEAKER) (test ecai=516) 10.6 fL 9.4-12.4 NUCLEATED RED BLOOD CELLS (BEAKER) (test 3 /100 WBC 0-0 dxwa=463) IMMATURE GRANULOCYTES-RELATIVE PERCENT (BEAKER) 12 % 0-1 (test hlry=2884) (MANUAL DIFFERENTIAL)2017-02-24 12:04:00 Test Item Value Reference Range Comments NEUTROPHILS - REL (DIFF) (BEAKER) (test 63 % tvrb=5095) LYMPHOCYTES - REL (DIFF) (BEAKER) (test 12 % vabi=0854) MONOCYTES - REL (DIFF) (BEAKER) (test swax=3099) 8 % EOSINOPHILS - REL (DIFF) (BEAKER) (test 2 % awzt=8866) BASOPHILS - REL (DIFF) (BEAKER) (test srnx=9455) 2 % METAMYELOCYTES-REL (DIFF) (BEAKER) (test 3 % 0-0 jdpn=685) BANDS - REL (DIFF) (BEAKER) (test bwkv=2784) 10 % 0-10 NEUTROPHILS - ABS (DIFF) (BEAKER) (test 7.25 K/ L 1.80-8.00 svbc=5082) LYMPHOCYTES - ABS (DIFF) (BEAKER) (test 1.38 K/ L 1.48-4.50 iizw=7610) MONOCYTES - ABS (DIFF) (BEAKER) (test oorw=1489) 0.92 K/ L 0.00-1.30 EOSINOPHILS - ABS (DIFF) (BEAKER) (test 0.23 K/ L 0.00-0.50 zuih=5675) BASOPHILS - ABS (DIFF) (BEAKER) (test loag=7655) 0.23 K/ L 0.00-0.20 METAMYELOCTYES - ABS (DIFF) (BEAKER) (test 0.35 K/ L 0.00-0.00 dzjx=213) BANDS-ABS (DIFF) (BEAKER) (test axwz=4487) 1.2 K/ L 0.0-0.8 TOTAL COUNTED (BEAKER) (test rnbh=7323) 100 BANDS + SEGMENTED NEUTROPHILS (BEAKER) (test 8.40 cvnt=4915) MANUAL NRBC PER 100 CELLS (BEAKER) (test 1 /100 WBC 0-0 ygzg=7913) WBC MORPHOLOGY (BEAKER) (test dqvv=294) Normal CLUMPED PLATELETS (BEAKER) (test jfkq=431) Present HYPOCHROMIA (BEAKER) (test xktm=816) 1+ few SPHEROCYTES (BEAKER) (test gdxx=965) 1+ few POCT-GLUCOSE [id number] 06:03:00 Test Item Value Reference Range Comments POC-GLUCOSE METER (BEAKER) 175 mg/dL 70-110 TESTED AT [facility] [address] [facility] (test spvv=3524) [facility] [address] [id number] 04:38:00 Test Item Value Reference Range Comments PHOSPHORUS (BEAKER) (test wrgl=952) 2.5 mg/dL 2.3-4.7 [id number] 04:38:00 Test Item Value Reference Range Comments MAGNESIUM (BEAKER) (test vwsy=583) 1.9 mg/dL 1.6-2.6 BASIC METABOLIC [id number] 04:38:00 Test Item Value Reference Range Comments SODIUM (BEAKER) (test 142 meq/L 136-145 ivab=049) POTASSIUM (BEAKER) (test 4.5 meq/L 3.5-5.1 qaqi=721) CHLORIDE (BEAKER) (test 111 meq/L 98-107 ssar=088) CO2 (BEAKER) (test 24 meq/L 22-29 xgor=875) BLOOD UREA NITROGEN 29 mg/dL 7-21 (BEAKER) (test uzvm=183) CREATININE (BEAKER) (test 0.73 mg/dL 0.57-1.25 nesg=845) GLUCOSE RANDOM (BEAKER) 222 mg/dL 70-105 (test bfey=879) CALCIUM (BEAKER) (test 8.2 mg/dL 8.4-10.2 hewb=583) EGFR (BEAKER) (test 110 mL/min/1.73 sq m ESTIMATED GFR IS NOT bpea=3599) ACCURATE CREATININE CLEARANCE IN PREDICTING GLOMERULAR FILTRATION RATE. ESTIMATED GFR IS NOT APPLICABLE FOR DIALYSIS PATIENTS. CALCIUM, [id number] 03:11:00 Test Item Value Reference Range Comments CALCIUM IONIZED (BEAKER) (test yydm=401) 1.05 mmol/L 1.12-1.27 PH, BLOOD (BEAKER) (test jszv=6915) 7.38 POCT-GLUCOSE [id number] 01:05:00 Test Item Value Reference Range Comments POC-GLUCOSE METER (BEAKER) 231 mg/dL 70-110 TESTED AT [address] (test omxj=9486) [facility] [address] POCT-GLUCOSE [id number] 18:18:00 Test Item Value Reference Range Comments POC-GLUCOSE METER (BEAKER) 226 mg/dL 70-110 TESTED AT [address] (test kepe=4844) [facility] [address] CBC W/PLT COUNT & AUTO [id number] 14:44:00 Test Item Value Reference Range Comments WHITE BLOOD CELL COUNT (BEAKER) (test xvnb=398) 13.3 K/ L 3.5-10.5 RED BLOOD CELL COUNT (BEAKER) (test bzen=100) 2.87 M/ L 4.63-6.08 HEMOGLOBIN (BEAKER) (test yacb=389) 8.0 GM/DL 13.7-17.5 HEMATOCRIT (BEAKER) (test hrwx=794) 27.4 % 40.1-51.0 MEAN CORPUSCULAR VOLUME (BEAKER) (test nuge=747) 95.5 fL 79.0-92.2 MEAN CORPUSCULAR HEMOGLOBIN (BEAKER) (test 27.9 pg 25.7-32.2 irqq=295) MEAN CORPUSCULAR HEMOGLOBIN CONC (BEAKER) (test 29.2 GM/DL 32.3-36.5 zmcw=541) RED CELL DISTRIBUTION WIDTH (BEAKER) (test 15.2 % 11.6-14.4 hitn=620) PLATELET COUNT (BEAKER) (test rgww=186) 441 K/CU MM 150-450 MEAN PLATELET VOLUME (BEAKER) (test guur=125) 10.5 fL 9.4-12.4 NUCLEATED RED BLOOD CELLS (BEAKER) (test 3 /100 WBC 0-0 nssj=358) NEUTROPHILS RELATIVE PERCENT (BEAKER) (test 69 % raxz=224) LYMPHOCYTES RELATIVE PERCENT (BEAKER) (test 11 % pdbk=151) MONOCYTES RELATIVE PERCENT (BEAKER) (test 8 % ioxb=976) EOSINOPHILS RELATIVE PERCENT (BEAKER) (test 3 % jkfy=847) BASOPHILS RELATIVE PERCENT (BEAKER) (test 0 % deuz=176) NEUTROPHILS ABSOLUTE COUNT (BEAKER) (test 9.12 K/ L 1.78-5.38 zllt=604) LYMPHOCYTES ABSOLUTE COUNT (BEAKER) (test 1.48 K/ L 1.32-3.57 mrod=412) MONOCYTES ABSOLUTE COUNT (BEAKER) (test 1.03 K/ L 0.30-0.82 hlcq=944) EOSINOPHILS ABSOLUTE COUNT (BEAKER) (test 0.36 K/ L 0.04-0.54 qqqv=077) BASOPHILS ABSOLUTE COUNT (BEAKER) (test 0.03 K/ L 0.01-0.08 pojw=299) IMMATURE GRANULOCYTES-RELATIVE PERCENT (BEAKER) 10 % 0-1 (test ugvl=0500) (MANUAL DIFFERENTIAL)2017-02-23 14:44:00 Test Item Value Reference Range Comments NEUTROPHILS - REL (DIFF) (BEAKER) (test 62 % xrlp=2384) LYMPHOCYTES - REL (DIFF) (BEAKER) (test 8 % zcwi=0557) MONOCYTES - REL (DIFF) (BEAKER) (test epbu=0473) 8 % EOSINOPHILS - REL (DIFF) (BEAKER) (test 6 % yugu=3719) METAMYELOCYTES-REL (DIFF) (BEAKER) (test 4 % 0-0 xlfh=392) BANDS - REL (DIFF) (BEAKER) (test nedq=3707) 12 % 0-10 NEUTROPHILS - ABS (DIFF) (BEAKER) (test 8.25 K/ L 1.80-8.00 auts=8792) LYMPHOCYTES - ABS (DIFF) (BEAKER) (test 1.06 K/ L 1.48-4.50 ajqi=4297) MONOCYTES - ABS (DIFF) (BEAKER) (test crsm=3439) 1.06 K/ L 0.00-1.30 EOSINOPHILS - ABS (DIFF) (BEAKER) (test 0.80 K/ L 0.00-0.50 jtya=0509) METAMYELOCTYES - ABS (DIFF) (BEAKER) (test 0.53 K/ L 0.00-0.00 lyxp=233) BANDS-ABS (DIFF) (BEAKER) (test gher=1066) 1.6 K/ L 0.0-0.8 TOTAL COUNTED (BEAKER) (test gffi=0500) 100 BANDS + SEGMENTED NEUTROPHILS (BEAKER) (test 9.84 vuua=7471) MANUAL NRBC PER 100 CELLS (BEAKER) (test 2 /100 WBC 0-0 vizt=3649) WBC MORPHOLOGY (BEAKER) (test sjcl=051) Normal LARGE PLT(BEAKER) (test diad=2780) Present ANISOCYTOSIS (BEAKER) (test rlyh=876) 1+ few HYPOCHROMIA (BEAKER) (test lpcq=820) 2+ moderate POIKILOCYTES (BEAKER) (test zymo=858) 1+ few POLYCHROMATOPHILLIC RBCS(BEAKER) (test gofw=601) 1+ few POCT-GLUCOSE [id number] 13:32:00 Test Item Value Reference Range Comments POC-GLUCOSE METER (BEAKER) 255 mg/dL 70-110 TESTED AT [facility] [address] [facility] (test xmsp=8493) [facility] [address] POCT-GLUCOSE [id number] 06:12:00 Test Item Value Reference Range Comments POC-GLUCOSE METER (BEAKER) 110 mg/dL 70-110 TESTED AT [facility] [address] [facility] (test hfot=9912) [facility] [address] [id number] 06:02:00 Test Item Value Reference Range Comments PHOSPHORUS (BEAKER) (test gcze=301) 2.8 mg/dL 2.3-4.7 [id number] 06:02:00 Test Item Value Reference Range Comments MAGNESIUM (BEAKER) (test osdn=435) 2.0 mg/dL 1.6-2.6 BASIC METABOLIC [id number] 06:02:00 Test Item Value Reference Range Comments SODIUM (BEAKER) (test 144 meq/L 136-145 dkoe=594) POTASSIUM (BEAKER) (test 4.3 meq/L 3.5-5.1 yics=478) CHLORIDE (BEAKER) (test 112 meq/L 98-107 mtdh=874) CO2 (BEAKER) (test 24 meq/L 22-29 gpod=682) BLOOD UREA NITROGEN 34 mg/dL 7-21 (BEAKER) (test gwxm=195) CREATININE (BEAKER) (test 0.74 mg/dL 0.57-1.25 ovmr=228) GLUCOSE RANDOM (BEAKER) 114 mg/dL 70-105 (test iprj=268) CALCIUM (BEAKER) (test 8.5 mg/dL 8.4-10.2 klkn=878) EGFR (BEAKER) (test 109 mL/min/1.73 sq m ESTIMATED GFR IS NOT ioch=1803) ACCURATE CREATININE CLEARANCE IN PREDICTING GLOMERULAR FILTRATION RATE. ESTIMATED GFR IS NOT APPLICABLE FOR DIALYSIS PATIENTS. CALCIUM, [id number] 05:00:00 Test Item Value Reference Range Comments CALCIUM IONIZED (BEAKER) (test hqlj=556) 1.11 mmol/L 1.12-1.27 PH, BLOOD (BEAKER) (test xbbz=2423) 7.39 POCT-GLUCOSE [id number] 00:28:00 Test Item Value Reference Range Comments POC-GLUCOSE METER (BEAKER) 140 mg/dL 70-110 TESTED AT [address] (test gldc=7267) [facility] [address] POCT-GLUCOSE [id number] 22:51:00 Test Item Value Reference Range Comments POC-GLUCOSE METER (BEAKER) 195 mg/dL 70-110 TESTED AT [address] (test axrs=8403) [facility] [address] POCT-GLUCOSE [id number] 18:32:00 Test Item Value Reference Range Comments POC-GLUCOSE METER (BEAKER) 157 mg/dL 70-110 TESTED AT [address] (test cjrm=6147) [place] [id number] POCT-GLUCOSE [id number] 11:47:00 Test Item Value Reference Range Comments POC-GLUCOSE METER (BEAKER) 174 mg/dL 70-110 TESTED AT [address] (test sdnd=1606) [place] [address] [id number] 10:16:00 Test Item Value Reference Range Comments SODIUM (BEAKER) (test wzmy=864) 149 meq/L 136-145 TROPONIN [id number] 07:56:00 Test Item Value Reference Range Comments TROPONIN I (BEAKER) (test ujnd=482) < ng/mL 0.00-0.03 Troponin I (TnI) levels [...] and persistent tachyarrhythmia.CBC W/PLT COUNT & AUTO [id number] 06:46:00 Test Item Value Reference Range Comments WHITE BLOOD CELL COUNT (BEAKER) (test olmg=779) 12.8 K/ L 3.5-10.5 RED BLOOD CELL COUNT (BEAKER) (test wbkn=133) 2.84 M/ L 4.63-6.08 HEMOGLOBIN (BEAKER) (test xuff=349) 7.9 GM/DL 13.7-17.5 HEMATOCRIT (BEAKER) (test vpqr=502) 26.9 % 40.1-51.0 MEAN CORPUSCULAR VOLUME (BEAKER) (test cwys=713) 94.7 fL 79.0-92.2 MEAN CORPUSCULAR HEMOGLOBIN (BEAKER) (test 27.8 pg 25.7-32.2 hvrk=730) MEAN CORPUSCULAR HEMOGLOBIN CONC (BEAKER) (test 29.4 GM/DL 32.3-36.5 idss=347) RED CELL DISTRIBUTION WIDTH (BEAKER) (test 15.0 % 11.6-14.4 vnvw=272) PLATELET COUNT (BEAKER) (test dgzq=251) 447 K/CU MM 150-450 MEAN PLATELET VOLUME (BEAKER) (test slpj=888) 10.3 fL 9.4-12.4 NUCLEATED RED BLOOD CELLS (BEAKER) (test 3 /100 WBC 0-0 vysq=296) IMMATURE GRANULOCYTES-RELATIVE PERCENT (BEAKER) 9 % 0-1 (test bonc=6380) (MANUAL DIFFERENTIAL)2017-02-22 06:46:00 Test Item Value Reference Range Comments NEUTROPHILS - REL (DIFF) (BEAKER) (test 70 % jflo=8862) LYMPHOCYTES - REL (DIFF) (BEAKER) (test 12 % vwtt=4158) MONOCYTES - REL (DIFF) (BEAKER) (test claz=8200) 5 % EOSINOPHILS - REL (DIFF) (BEAKER) (test 4 % nrjg=6206) BASOPHILS - REL (DIFF) (BEAKER) (test hbgb=1736) 0 % METAMYELOCYTES-REL (DIFF) (BEAKER) (test 2 % 0-0 phgi=651) MYELOCYTES-REL (DIFF) (BEAKER) (test gtaq=7387) 4 % 0-0 BANDS - REL (DIFF) (BEAKER) (test zeys=1454) 3 % 0-10 NEUTROPHILS - ABS (DIFF) (BEAKER) (test 8.96 K/ L 1.80-8.00 hmix=0425) LYMPHOCYTES - ABS (DIFF) (BEAKER) (test 1.54 K/ L 1.48-4.50 kebq=0100) MONOCYTES - ABS (DIFF) (BEAKER) (test yqbq=5925) 0.64 K/ L 0.00-1.30 EOSINOPHILS - ABS (DIFF) (BEAKER) (test 0.51 K/ L 0.00-0.50 gjoq=6693) BASOPHILS - ABS (DIFF) (BEAKER) (test cmmw=5992) 0.00 K/ L 0.00-0.20 METAMYELOCTYES - ABS (DIFF) (BEAKER) (test 0.26 K/ L 0.00-0.00 yycy=831) BANDS-ABS (DIFF) (BEAKER) (test knoi=4781) 0.4 K/ L 0.0-0.8 MYELOCYTES-ABS (DIFF) (BEAKER) (test yjvx=7565) 0.51 K/ L 0.00-0.00 TOTAL COUNTED (BEAKER) (test tafm=0984) 100 BANDS + SEGMENTED NEUTROPHILS (BEAKER) (test 9.34 oztr=7326) MANUAL NRBC PER 100 CELLS (BEAKER) (test 6 /100 WBC 0-0 cfsa=9638) WBC MORPHOLOGY (BEAKER) (test stkw=094) Normal CLUMPED PLATELETS (BEAKER) (test hcws=718) Present POLYCHROMATOPHILLIC RBCS(BEAKER) (test bobz=570) 2+ moderate POCT-GLUCOSE [id number] 05:22:00 Test Item Value Reference Range Comments POC-GLUCOSE METER (BEAKER) 190 mg/dL 70-110 TESTED AT [address] (test ovvc=2264) [facility] [address] CALCIUM, [id number] 05:14:00 Test Item Value Reference Range Comments CALCIUM IONIZED (BEAKER) (test rska=422) 1.09 mmol/L 1.12-1.27 PH, BLOOD (BEAKER) (test jaon=8977) 7.41 POCT-GLUCOSE [id number] 05:08:00 Test Item Value Reference Range Comments POC-GLUCOSE METER (BEAKER) 226 mg/dL 70-110 TESTED AT [address] (test awlq=8352) [place] [id number] 04:18:00 Test Item Value Reference Range Comments PHOSPHORUS (BEAKER) (test lmzv=330) 3.0 mg/dL 2.3-4.7 [id number] 04:18:00 Test Item Value Reference Range Comments MAGNESIUM (BEAKER) (test rtas=133) 2.2 mg/dL 1.6-2.6 BASIC METABOLIC [id number] 04:18:00 Test Item Value Reference Range Comments SODIUM (BEAKER) (test 148 meq/L 136-145 hxfj=234) POTASSIUM (BEAKER) (test 4.2 meq/L 3.5-5.1 wdmr=351) CHLORIDE (BEAKER) (test 116 meq/L 98-107 trny=885) CO2 (BEAKER) (test 24 meq/L 22-29 fitn=579) BLOOD UREA NITROGEN 42 mg/dL 7-21 (BEAKER) (test vpnb=135) CREATININE (BEAKER) (test 0.86 mg/dL 0.57-1.25 zpko=345) GLUCOSE RANDOM (BEAKER) 180 mg/dL 70-105 (test tdpu=536) CALCIUM (BEAKER) (test 8.4 mg/dL 8.4-10.2 thlj=543) EGFR (BEAKER) (test 91 mL/min/1.73 sq m ESTIMATED GFR IS NOT dsya=7633) ACCURATE CREATININE CLEARANCE IN PREDICTING GLOMERULAR FILTRATION RATE. ESTIMATED GFR IS NOT APPLICABLE FOR DIALYSIS PATIENTS. BLOOD GAS, [id number] 22:05:00 Test Item Value Reference Range Comments PH ARTERIAL (BEAKER) (test vypj=533) 7.45 7.35-7.45 PCO2 ARTERIAL (BEAKER) (test bsms=741) 35 mmHg 35-45 PO2 ARTERIAL (BEAKER) (test frid=525) 114 mmHg 80-90 O2 SATURATION ARTERIAL (BEAKER) (test utql=318) 98.4 % 96.0-97.0 HCO3 ARTERIAL (BEAKER) (test tvmi=843) 24 mmol/L 21-29 BASE EXCESS ARTERIAL (BEAKER) (test etye=516) 0.1 mmol/L -2.0-3.0 PATIENT TEMPERATURE (BEAKER) (test hodm=3258) 37.0 C FIO2 (BEAKER) (test kuda=7973) 40.0 % POCT-GLUCOSE [id number] 21:58:00 Test Item Value Reference Range Comments POC-GLUCOSE METER (BEAKER) 195 mg/dL 70-110 TESTED AT [facility] [address] [facility] (test hutv=3683) [facility] [address] [id number] 19:48:00 Test Item Value Reference Range Comments SODIUM (BEAKER) (test iuvw=317) 148 meq/L 136-145 POCT-GLUCOSE [id number] 17:38:00 Test Item Value Reference Range Comments POC-GLUCOSE METER (BEAKER) 241 mg/dL 70-110 TESTED AT [facility] [address] [facility] (test jlgu=4383) [facility] [address] CBC W/PLT COUNT & AUTO [id number] 14:47:00 Test Item Value Reference Range Comments WHITE BLOOD CELL COUNT (BEAKER) (test otlq=600) 13.4 K/ L 3.5-10.5 RED BLOOD CELL COUNT (BEAKER) (test isiz=285) 2.92 M/ L 4.63-6.08 HEMOGLOBIN (BEAKER) (test ipia=592) 8.2 GM/DL 13.7-17.5 HEMATOCRIT (BEAKER) (test tlqr=650) 27.8 % 40.1-51.0 MEAN CORPUSCULAR VOLUME (BEAKER) (test zoty=766) 95.2 fL 79.0-92.2 MEAN CORPUSCULAR HEMOGLOBIN (BEAKER) (test 28.1 pg 25.7-32.2 rhkz=724) MEAN CORPUSCULAR HEMOGLOBIN CONC (BEAKER) (test 29.5 GM/DL 32.3-36.5 cptd=107) RED CELL DISTRIBUTION WIDTH (BEAKER) (test 15.0 % 11.6-14.4 lddr=141) PLATELET COUNT (BEAKER) (test ixpw=780) 424 K/CU MM 150-450 MEAN PLATELET VOLUME (BEAKER) (test dfov=976) 10.3 fL 9.4-12.4 NUCLEATED RED BLOOD CELLS (BEAKER) (test 3 /100 WBC 0-0 fdts=008) IMMATURE GRANULOCYTES-RELATIVE PERCENT (BEAKER) 7 % 0-1 (test eozr=0342) (MANUAL DIFFERENTIAL)2017-02-21 14:47:00 Test Item Value Reference Range Comments NEUTROPHILS - REL (DIFF) (BEAKER) (test 71 % jzqh=4396) LYMPHOCYTES - REL (DIFF) (BEAKER) (test 11 % aebf=9669) MONOCYTES - REL (DIFF) (BEAKER) (test hzbl=7596) 4 % EOSINOPHILS - REL (DIFF) (BEAKER) (test 3 % scsh=6944) BASOPHILS - REL (DIFF) (BEAKER) (test sbsw=9957) 0 % METAMYELOCYTES-REL (DIFF) (BEAKER) (test 1 % 0-0 vaee=691) MYELOCYTES-REL (DIFF) (BEAKER) (test svyf=3154) 1 % 0-0 PROMYELOCYTES-REL (DIFF) (BEAKER) (test dtyt=985) 1 % 0-0 BANDS - REL (DIFF) (BEAKER) (test pfcq=8863) 8 % 0-10 NEUTROPHILS - ABS (DIFF) (BEAKER) (test 9.51 K/ L 1.80-8.00 ydll=8901) LYMPHOCYTES - ABS (DIFF) (BEAKER) (test 1.47 K/ L 1.48-4.50 ztku=2047) MONOCYTES - ABS (DIFF) (BEAKER) (test ojyk=3224) 0.54 K/ L 0.00-1.30 EOSINOPHILS - ABS (DIFF) (BEAKER) (test 0.40 K/ L 0.00-0.50 cleq=0311) BASOPHILS - ABS (DIFF) (BEAKER) (test nanc=4478) 0.00 K/ L 0.00-0.20 METAMYELOCTYES - ABS (DIFF) (BEAKER) (test 0.13 K/ L 0.00-0.00 njrb=233) PROMYELOCYTES - ABS (DIFF) (BEAKER) (test 0.13 K/ L 0.00-0.00 mkvr=830) BANDS-ABS (DIFF) (BEAKER) (test wlno=3611) 1.1 K/ L 0.0-0.8 MYELOCYTES-ABS (DIFF) (BEAKER) (test ygni=2051) 0.13 K/ L 0.00-0.00 TOTAL COUNTED (BEAKER) (test ektb=9882) 100 BANDS + SEGMENTED NEUTROPHILS (BEAKER) (test 10.59 cngx=6667) MANUAL NRBC PER 100 CELLS (BEAKER) (test 3 /100 WBC 0-0 qftz=2610) WBC MORPHOLOGY (BEAKER) (test gafw=250) Normal RBC MORPHOLOGY (BEAKER) (test qnpu=945) Normal LARGE PLT(BEAKER) (test sszp=6337) Present DIGOXIN [id number] 12:47:00 Test Item Value Reference Range Comments DIGOXIN LEVEL (BEAKER) (test fopl=087) 0.9 ng/mL 0.8-2.0 POCT-GLUCOSE [id number] 12:25:00 Test Item Value Reference Range Comments POC-GLUCOSE METER (BEAKER) 89 mg/dL 70-110 TESTED AT [address] (test jfsm=2783) [facility] [address] [id number] 11:25:00 Test Item Value Reference Range Comments SODIUM (BEAKER) (test alpu=436) 151 meq/L 136-145 POCT-GLUCOSE [id number] 07:10:00 Test Item Value Reference Range Comments POC-GLUCOSE METER (BEAKER) 126 mg/dL 70-110 TESTED AT [address] (test cdfr=6824) [place] [id number] 05:00:00 Test Item Value Reference Range Comments PHOSPHORUS (BEAKER) (test rocy=195) 3.3 mg/dL 2.3-4.7 [id number] 05:00:00 Test Item Value Reference Range Comments MAGNESIUM (BEAKER) (test pmaa=359) 2.1 mg/dL 1.6-2.6 BASIC METABOLIC [id number] 05:00:00 Test Item Value Reference Range Comments SODIUM (BEAKER) (test 149 meq/L 136-145 bdxv=485) POTASSIUM (BEAKER) (test 4.1 meq/L 3.5-5.1 quro=974) CHLORIDE (BEAKER) (test 117 meq/L 98-107 vfsi=002) CO2 (BEAKER) (test 23 meq/L 22-29 gbyo=888) BLOOD UREA NITROGEN 41 mg/dL 7-21 (BEAKER) (test hhpg=762) CREATININE (BEAKER) (test 0.84 mg/dL 0.57-1.25 nzbc=794) GLUCOSE RANDOM (BEAKER) 53 mg/dL 70-105 (test uvls=523) CALCIUM (BEAKER) (test 8.2 mg/dL 8.4-10.2 qppp=194) EGFR (BEAKER) (test 94 mL/min/1.73 sq m ESTIMATED GFR IS NOT yibx=5746) ACCURATE CREATININE CLEARANCE IN PREDICTING GLOMERULAR FILTRATION RATE. ESTIMATED GFR IS NOT APPLICABLE FOR DIALYSIS PATIENTS. CALCIUM, [id number] 04:59:00 Test Item Value Reference Range Comments CALCIUM IONIZED (BEAKER) (test cipb=451) 1.11 mmol/L 1.12-1.27 PH, BLOOD (BEAKER) (test polz=7808) 7.42 POCT-GLUCOSE [id number] 02:12:00 Test Item Value Reference Range Comments POC-GLUCOSE METER (BEAKER) 105 mg/dL 70-110 TESTED AT [address] (test bwyh=3984) [place] [id number] POCT-GLUCOSE [id number] 21:57:00 Test Item Value Reference Range Comments POC-GLUCOSE METER (BEAKER) 252 mg/dL 70-110 TESTED AT [address] (test xlkp=2726) [place] [id number] POCT-GLUCOSE [id number] 18:46:00 Test Item Value Reference Range Comments POC-GLUCOSE METER (BEAKER) 251 mg/dL 70-110 TESTED AT [address] (test aakz=6027) [place] [id number] CBC W/PLT COUNT & AUTO [id number] 13:32:00 Test Item Value Reference Range Comments WHITE BLOOD CELL COUNT (BEAKER) (test ltwz=752) 11.1 K/ L 3.5-10.5 RED BLOOD CELL COUNT (BEAKER) (test nbks=176) 2.97 M/ L 4.63-6.08 HEMOGLOBIN (BEAKER) (test pxnv=866) 8.3 GM/DL 13.7-17.5 HEMATOCRIT (BEAKER) (test fytb=769) 28.0 % 40.1-51.0 MEAN CORPUSCULAR VOLUME (BEAKER) (test ethc=398) 94.3 fL 79.0-92.2 MEAN CORPUSCULAR HEMOGLOBIN (BEAKER) (test 27.9 pg 25.7-32.2 pmun=699) MEAN CORPUSCULAR HEMOGLOBIN CONC (BEAKER) (test 29.6 GM/DL 32.3-36.5 blpt=326) RED CELL DISTRIBUTION WIDTH (BEAKER) (test 14.7 % 11.6-14.4 aohl=450) PLATELET COUNT (BEAKER) (test xyok=354) 390 K/CU MM 150-450 MEAN PLATELET VOLUME (BEAKER) (test tnml=616) 9.9 fL 9.4-12.4 NUCLEATED RED BLOOD CELLS (BEAKER) (test 2 /100 WBC 0-0 ifoy=142) IMMATURE GRANULOCYTES-RELATIVE PERCENT (BEAKER) 6 % 0-1 (test edud=6781) (MANUAL DIFFERENTIAL)[id number] 13:32:00 Test Item Value Reference Range Comments NEUTROPHILS - REL (DIFF) (BEAKER) (test jtbl=7146) 61 % LYMPHOCYTES - REL (DIFF) (BEAKER) (test hjhy=5996) 1 % MONOCYTES - REL (DIFF) (BEAKER) (test dptv=7458) 14 % EOSINOPHILS - REL (DIFF) (BEAKER) (test fwec=2760) 1 % METAMYELOCYTES-REL (DIFF) (BEAKER) (test ezqc=657) 1 % 0-0 MYELOCYTES-REL (DIFF) (BEAKER) (test nllw=4045) 1 % 0-0 BANDS - REL (DIFF) (BEAKER) (test xprd=6410) 21 % 0-10 NEUTROPHILS - ABS (DIFF) (BEAKER) (test srja=2237) 6.77 K/ L 1.80-8.00 LYMPHOCYTES - ABS (DIFF) (BEAKER) (test zgwi=5531) 0.11 K/ L 1.48-4.50 MONOCYTES - ABS (DIFF) (BEAKER) (test qrtn=9368) 1.55 K/ L 0.00-1.30 EOSINOPHILS - ABS (DIFF) (BEAKER) (test vsfz=2583) 0.11 K/ L 0.00-0.50 METAMYELOCTYES - ABS (DIFF) (BEAKER) (test 0.11 K/ L 0.00-0.00 deij=589) BANDS-ABS (DIFF) (BEAKER) (test ripv=2800) 2.3 K/ L 0.0-0.8 MYELOCYTES-ABS (DIFF) (BEAKER) (test mjnx=4624) 0.11 K/ L 0.00-0.00 TOTAL COUNTED (BEAKER) (test trzh=6163) 100 BANDS + SEGMENTED NEUTROPHILS (BEAKER) (test 9.10 dgcv=7125) WBC MORPHOLOGY (BEAKER) (test heyu=393) Normal PLT MORPHOLOGY (BEAKER) (test xhns=023) Normal RBC MORPHOLOGY (BEAKER) (test wpen=409) Normal POCT-GLUCOSE [id number] 12:37:00 Test Item Value Reference Range Comments POC-GLUCOSE METER (BEAKER) 170 mg/dL 70-110 TESTED AT [facility] [address] [facility] (test jgdq=4522) [facility] [address] CBC W/PLT COUNT & AUTO [id number] 11:11:00 Test Item Value Reference Range Comments WHITE BLOOD CELL COUNT (BEAKER) (test vegm=807) 11.1 K/ L 3.5-10.5 RED BLOOD CELL COUNT (BEAKER) (test clbn=132) 2.99 M/ L 4.63-6.08 HEMOGLOBIN (BEAKER) (test idhz=088) 8.4 GM/DL 13.7-17.5 HEMATOCRIT (BEAKER) (test gezn=486) 28.0 % 40.1-51.0 MEAN CORPUSCULAR VOLUME (BEAKER) (test elql=111) 93.6 fL 79.0-92.2 MEAN CORPUSCULAR HEMOGLOBIN (BEAKER) (test 28.1 pg 25.7-32.2 sriz=607) MEAN CORPUSCULAR HEMOGLOBIN CONC (BEAKER) (test 30.0 GM/DL 32.3-36.5 aifh=077) RED CELL DISTRIBUTION WIDTH (BEAKER) (test 14.9 % 11.6-14.4 tbtx=511) PLATELET COUNT (BEAKER) (test tslw=547) 426 K/CU MM 150-450 MEAN PLATELET VOLUME (BEAKER) (test zibb=293) 10.3 fL 9.4-12.4 NUCLEATED RED BLOOD CELLS (BEAKER) (test 2 /100 WBC 0-0 xxzr=608) IMMATURE GRANULOCYTES-RELATIVE PERCENT (BEAKER) 5 % 0-1 (test fmcz=6760) (MANUAL DIFFERENTIAL)2017-02-20 11:11:00 Test Item Value Reference Range Comments NEUTROPHILS - REL (DIFF) (BEAKER) (test 68 % ygqo=3863) LYMPHOCYTES - REL (DIFF) (BEAKER) (test 11 % rqur=1489) MONOCYTES - REL (DIFF) (BEAKER) (test ahhl=5429) 7 % EOSINOPHILS - REL (DIFF) (BEAKER) (test 2 % rnnu=6474) BASOPHILS - REL (DIFF) (BEAKER) (test wjrs=9011) 0 % METAMYELOCYTES-REL (DIFF) (BEAKER) (test 1 % 0-0 zhgn=560) MYELOCYTES-REL (DIFF) (BEAKER) (test lqmz=8331) 2 % 0-0 BANDS - REL (DIFF) (BEAKER) (test jywo=8607) 9 % 0-10 NEUTROPHILS - ABS (DIFF) (BEAKER) (test 7.55 K/ L 1.80-8.00 pxqj=4947) LYMPHOCYTES - ABS (DIFF) (BEAKER) (test 1.22 K/ L 1.48-4.50 cdjt=8912) MONOCYTES - ABS (DIFF) (BEAKER) (test lcnt=1015) 0.78 K/ L 0.00-1.30 EOSINOPHILS - ABS (DIFF) (BEAKER) (test 0.22 K/ L 0.00-0.50 znbq=6695) BASOPHILS - ABS (DIFF) (BEAKER) (test obcg=0012) 0.00 K/ L 0.00-0.20 METAMYELOCTYES - ABS (DIFF) (BEAKER) (test 0.11 K/ L 0.00-0.00 pnta=210) BANDS-ABS (DIFF) (BEAKER) (test ipxz=2182) 1.0 K/ L 0.0-0.8 MYELOCYTES-ABS (DIFF) (BEAKER) (test ymkd=7579) 0.22 K/ L 0.00-0.00 TOTAL COUNTED (BEAKER) (test wtwu=6454) 100 BANDS + SEGMENTED NEUTROPHILS (BEAKER) (test 8.55 oyxi=0632) MANUAL NRBC PER 100 CELLS (BEAKER) (test 2 /100 WBC 0-0 zvat=7471) WBC MORPHOLOGY (BEAKER) (test qaum=112) Normal LARGE PLT(BEAKER) (test mugh=4117) Present POIKILOCYTES (BEAKER) (test hiqp=908) 1+ few POLYCHROMATOPHILLIC RBCS(BEAKER) (test jwdw=049) 3+ many [id number] 10:27:00 Test Item Value Reference Range Comments SODIUM (BEAKER) (test xtey=836) 151 meq/L 136-145 POCT-GLUCOSE [id number] 09:49:00 Test Item Value Reference Range Comments POC-GLUCOSE METER (BEAKER) 128 mg/dL 70-110 TESTED AT [facility] [address] [facility] (test cixp=7309) [facility] [address] [id number] 03:58:00 Test Item Value Reference Range Comments PHOSPHORUS (BEAKER) (test kzyz=902) 3.1 mg/dL 2.3-4.7 [id number] 03:58:00 Test Item Value Reference Range Comments MAGNESIUM (BEAKER) (test ermt=538) 2.1 mg/dL 1.6-2.6 BASIC METABOLIC [id number] 03:58:00 Test Item Value Reference Range Comments SODIUM (BEAKER) (test 150 meq/L 136-145 jrnj=772) POTASSIUM (BEAKER) (test 4.2 meq/L 3.5-5.1 slmb=883) CHLORIDE (BEAKER) (test 117 meq/L 98-107 eshb=253) CO2 (BEAKER) (test 25 meq/L 22-29 utgj=603) BLOOD UREA NITROGEN 33 mg/dL 7-21 (BEAKER) (test ksuy=172) CREATININE (BEAKER) (test 0.83 mg/dL 0.57-1.25 moel=503) GLUCOSE RANDOM (BEAKER) 129 mg/dL 70-105 (test eucb=863) CALCIUM (BEAKER) (test 8.2 mg/dL 8.4-10.2 pvqn=743) EGFR (BEAKER) (test 95 mL/min/1.73 sq m ESTIMATED GFR IS NOT dsjn=3480) ACCURATE CREATININE CLEARANCE IN PREDICTING GLOMERULAR FILTRATION RATE. ESTIMATED GFR IS NOT APPLICABLE FOR DIALYSIS PATIENTS. CALCIUM, [id number] 03:47:00 Test Item Value Reference Range Comments CALCIUM IONIZED (BEAKER) (test jklp=652) 1.10 mmol/L 1.12-1.27 PH, BLOOD (BEAKER) (test bkjm=5009) 7.41 POCT-GLUCOSE [id number] 22:16:00 Test Item Value Reference Range Comments POC-GLUCOSE METER (BEAKER) 172 mg/dL 70-110 TESTED AT [facility] [address] [facility] (test jrdf=5261) [facility] [address] POCT-GLUCOSE [id number] 17:42:00 Test Item Value Reference Range Comments POC-GLUCOSE METER (BEAKER) 156 mg/dL 70-110 TESTED AT [address] (test byvu=7924) [place] [id number] POCT-GLUCOSE [id number] 11:36:00 Test Item Value Reference Range Comments POC-GLUCOSE METER (BEAKER) 223 mg/dL 70-110 TESTED AT [address] (test qqap=1267) [place] [address] [id number] 10:00:00 Test Item Value Reference Range Comments SODIUM (BEAKER) (test qfyr=297) 149 meq/L 136-145 POCT-GLUCOSE [id number] 07:54:00 Test Item Value Reference Range Comments POC-GLUCOSE METER (BEAKER) 190 mg/dL 70-110 TESTED AT [address] (test vgmn=9356) [place] [id number] CBC W/PLT COUNT & AUTO [id number] 06:29:00 Test Item Value Reference Range Comments WHITE BLOOD CELL COUNT (BEAKER) (test seig=443) 11.8 K/ L 3.5-10.5 RED BLOOD CELL COUNT (BEAKER) (test nboo=578) 3.07 M/ L 4.63-6.08 HEMOGLOBIN (BEAKER) (test ffzh=399) 8.6 GM/DL 13.7-17.5 HEMATOCRIT (BEAKER) (test yzsb=109) 28.8 % 40.1-51.0 MEAN CORPUSCULAR VOLUME (BEAKER) (test mipy=889) 93.8 fL 79.0-92.2 MEAN CORPUSCULAR HEMOGLOBIN (BEAKER) (test 28.0 pg 25.7-32.2 uljx=678) MEAN CORPUSCULAR HEMOGLOBIN CONC (BEAKER) (test 29.9 GM/DL 32.3-36.5 tbtw=547) RED CELL DISTRIBUTION WIDTH (BEAKER) (test 14.6 % 11.6-14.4 vdsl=683) PLATELET COUNT (BEAKER) (test ybev=708) 434 K/CU MM 150-450 MEAN PLATELET VOLUME (BEAKER) (test ongy=049) 9.7 fL 9.4-12.4 NUCLEATED RED BLOOD CELLS (BEAKER) (test 2 /100 WBC 0-0 nxto=333) NEUTROPHILS RELATIVE PERCENT (BEAKER) (test 78 % kwom=407) LYMPHOCYTES RELATIVE PERCENT (BEAKER) (test 10 % jhed=016) MONOCYTES RELATIVE PERCENT (BEAKER) (test 7 % pixa=782) EOSINOPHILS RELATIVE PERCENT (BEAKER) (test 2 % ason=792) BASOPHILS RELATIVE PERCENT (BEAKER) (test 0 % lzzr=319) NEUTROPHILS ABSOLUTE COUNT (BEAKER) (test 9.16 K/ L 1.78-5.38 jcvc=044) LYMPHOCYTES ABSOLUTE COUNT (BEAKER) (test 1.17 K/ L 1.32-3.57 tzki=076) MONOCYTES ABSOLUTE COUNT (BEAKER) (test 0.88 K/ L 0.30-0.82 iszx=190) EOSINOPHILS ABSOLUTE COUNT (BEAKER) (test 0.26 K/ L 0.04-0.54 yyqj=699) BASOPHILS ABSOLUTE COUNT (BEAKER) (test 0.04 K/ L 0.01-0.08 hikn=606) IMMATURE GRANULOCYTES-RELATIVE PERCENT (BEAKER) 3 % 0-1 (test ygqk=6855) [id number] 02:57:00 Test Item Value Reference Range Comments PHOSPHORUS (BEAKER) (test isxx=005) 3.2 mg/dL 2.3-4.7 [id number] 02:57:00 Test Item Value Reference Range Comments MAGNESIUM (BEAKER) (test degl=953) 2.1 mg/dL 1.6-2.6 BASIC METABOLIC [id number] 02:57:00 Test Item Value Reference Range Comments SODIUM (BEAKER) (test 149 meq/L 136-145 lskm=630) POTASSIUM (BEAKER) (test 4.0 meq/L 3.5-5.1 ttxw=273) CHLORIDE (BEAKER) (test 116 meq/L 98-107 fprn=916) CO2 (BEAKER) (test 26 meq/L 22-29 jlef=495) BLOOD UREA NITROGEN 37 mg/dL 7-21 (BEAKER) (test ddzi=820) CREATININE (BEAKER) (test 0.95 mg/dL 0.57-1.25 cjle=430) GLUCOSE RANDOM (BEAKER) 139 mg/dL 70-105 (test ifvc=199) CALCIUM (BEAKER) (test 8.5 mg/dL 8.4-10.2 bqqc=270) EGFR (BEAKER) (test 81 mL/min/1.73 sq m ESTIMATED GFR IS NOT iqdo=6408) ACCURATE CREATININE CLEARANCE IN PREDICTING GLOMERULAR FILTRATION RATE. ESTIMATED GFR IS NOT APPLICABLE FOR DIALYSIS PATIENTS. CALCIUM, [id number] 02:51:00 Test Item Value Reference Range Comments CALCIUM IONIZED (BEAKER) (test tpss=685) 1.13 mmol/L 1.12-1.27 PH, BLOOD (BEAKER) (test ugbo=7148) 7.42 BLOOD [id number] 23:00:00 Test Item Value Reference Range Comments CULTURE (BEAKER) (test rmzi=0621) No growth in 5 days POCT-GLUCOSE [id number] 21:49:00 Test Item Value Reference Range Comments POC-GLUCOSE METER (BEAKER) 224 mg/dL 70-110 TESTED AT [address] (test dzba=6134) [place] [address] POCT-GLUCOSE [id number] 21:43:00 Test Item Value Reference Range Comments POC-GLUCOSE METER (BEAKER) 191 mg/dL 70-110 TESTED AT [address] (test srhl=9793) [place] [id number] POCT-GLUCOSE [id number] 18:14:00 Test Item Value Reference Range Comments POC-GLUCOSE METER (BEAKER) 274 mg/dL 70-110 TESTED AT [address] (test hzma=4851) [place] [address] [id number] 17:49:00 Test Item Value Reference Range Comments SODIUM (BEAKER) (test bvaf=554) 152 meq/L 136-145 POCT-GLUCOSE [id number] 11:44:00 Test Item Value Reference Range Comments POC-GLUCOSE METER (BEAKER) 188 mg/dL 70-110 TESTED AT [address] (test mkts=9367) [place] [id number] POCT-GLUCOSE [id number] 07:36:00 Test Item Value Reference Range Comments POC-GLUCOSE METER (BEAKER) 202 mg/dL 70-110 TESTED AT [address] (test kqvj=3150) [place] [id number] RAD, CHEST, 1 VIEW, NON [id number] 07:32:00Reason for exam:->TRACHShould this be performed at [...] Verified Date/Time : 02/18/2017 07:32:28 Reading Location: [address] Transitional Reading Room CBC W/PLT COUNT & AUTO [id number] 03:52:00 Test Item Value Reference Range Comments WHITE BLOOD CELL COUNT (BEAKER) (test omyr=071) 11.5 K/ L 3.5-10.5 RED BLOOD CELL COUNT (BEAKER) (test zkst=696) 2.89 M/ L 4.63-6.08 HEMOGLOBIN (BEAKER) (test xphg=955) 8.2 GM/DL 13.7-17.5 HEMATOCRIT (BEAKER) (test xnpl=567) 27.1 % 40.1-51.0 MEAN CORPUSCULAR VOLUME (BEAKER) (test ywzy=340) 93.8 fL 79.0-92.2 MEAN CORPUSCULAR HEMOGLOBIN (BEAKER) (test 28.4 pg 25.7-32.2 idgc=540) MEAN CORPUSCULAR HEMOGLOBIN CONC (BEAKER) (test 30.3 GM/DL 32.3-36.5 odpo=639) RED CELL DISTRIBUTION WIDTH (BEAKER) (test 14.6 % 11.6-14.4 hewl=871) PLATELET COUNT (BEAKER) (test vzzj=671) 394 K/CU MM 150-450 MEAN PLATELET VOLUME (BEAKER) (test dgrh=301) 9.9 fL 9.4-12.4 NUCLEATED RED BLOOD CELLS (BEAKER) (test 1 /100 WBC 0-0 uboy=218) NEUTROPHILS RELATIVE PERCENT (BEAKER) (test 80 % yxnu=159) LYMPHOCYTES RELATIVE PERCENT (BEAKER) (test 9 % lssq=528) MONOCYTES RELATIVE PERCENT (BEAKER) (test 7 % gcfe=714) EOSINOPHILS RELATIVE PERCENT (BEAKER) (test 2 % optx=226) BASOPHILS RELATIVE PERCENT (BEAKER) (test 0 % npcm=659) NEUTROPHILS ABSOLUTE COUNT (BEAKER) (test 9.19 K/ L 1.78-5.38 cmnq=339) LYMPHOCYTES ABSOLUTE COUNT (BEAKER) (test 1.03 K/ L 1.32-3.57 ogss=227) MONOCYTES ABSOLUTE COUNT (BEAKER) (test 0.77 K/ L 0.30-0.82 ultm=895) EOSINOPHILS ABSOLUTE COUNT (BEAKER) (test 0.19 K/ L 0.04-0.54 adlp=736) BASOPHILS ABSOLUTE COUNT (BEAKER) (test 0.03 K/ L 0.01-0.08 tlzu=413) IMMATURE GRANULOCYTES-RELATIVE PERCENT (BEAKER) 2 % 0-1 (test pgwc=7148) (MANUAL DIFFERENTIAL)2017-02-18 03:52:00 Test Item Value Reference Range Comments TOTAL COUNTED (BEAKER) (test aphn=4033) PLT MORPHOLOGY (BEAKER) (test ltrl=510) Normal RBC MORPHOLOGY (BEAKER) (test optr=034) Normal ATYPICAL LYMPHS(BEAKER) (test frwc=0698) Present [id number] 03:08:00 Test Item Value Reference Range Comments PHOSPHORUS (BEAKER) (test eltn=052) 3.0 mg/dL 2.3-4.7 [id number] 03:08:00 Test Item Value Reference Range Comments MAGNESIUM (BEAKER) (test gonk=225) 2.0 mg/dL 1.6-2.6 BASIC METABOLIC [id number] 03:08:00 Test Item Value Reference Range Comments SODIUM (BEAKER) (test 151 meq/L 136-145 vvqe=678) POTASSIUM (BEAKER) (test 4.3 meq/L 3.5-5.1 fewf=890) CHLORIDE (BEAKER) (test 118 meq/L 98-107 wqtj=456) CO2 (BEAKER) (test 25 meq/L 22-29 goao=450) BLOOD UREA NITROGEN 30 mg/dL 7-21 (BEAKER) (test ehpu=410) CREATININE (BEAKER) (test 0.91 mg/dL 0.57-1.25 azdy=392) GLUCOSE RANDOM (BEAKER) 182 mg/dL 70-105 (test vajj=998) CALCIUM (BEAKER) (test 8.3 mg/dL 8.4-10.2 byuh=822) EGFR (BEAKER) (test 86 mL/min/1.73 sq m ESTIMATED GFR IS NOT jotd=5276) ACCURATE CREATININE CLEARANCE IN PREDICTING GLOMERULAR FILTRATION RATE. ESTIMATED GFR IS NOT APPLICABLE FOR DIALYSIS PATIENTS. CALCIUM, [id number] 02:40:00 Test Item Value Reference Range Comments CALCIUM IONIZED (BEAKER) (test yira=527) 1.10 mmol/L 1.12-1.27 PH, BLOOD (AKER) (test eqqi=2783) 7.43 POCT-GLUCOSE [id number] 22:20:00 Test Item Value Reference Range Comments POC-GLUCOSE METER (BEAKER) 162 mg/dL 70-110 TESTED AT [address] (test jjvh=2213) [place] [address] POCT-GLUCOSE [id number] 20:46:00 Test Item Value Reference Range Comments POC-GLUCOSE METER (BEAKER) 124 mg/dL 70-110 TESTED AT [address] (test cbqu=3563) [place] [id number] POCT-GLUCOSE [id number] 18:29:00 Test Item Value Reference Range Comments POC-GLUCOSE METER (BEAKER) 90 mg/dL 70-110 TESTED AT [address] (test ywkg=3937) [place] [id number] 14:57:00 Test Item Value Reference Range Comments SODIUM (BEAKER) (test jmxd=924) 152 meq/L 136-145 POCT-GLUCOSE [id number] 13:17:00 Test Item Value Reference Range Comments POC-GLUCOSE METER (BEAKER) 197 mg/dL 70-110 TESTED AT [address] (test ibjr=1582) [place] [id number] CBC W/PLT COUNT & AUTO [id number] 13:09:00 Test Item Value Reference Range Comments WHITE BLOOD CELL COUNT (BEAKER) (test qnxp=761) 12.5 K/ L 3.5-10.5 RED BLOOD CELL COUNT (BEAKER) (test twnv=086) 3.05 M/ L 4.63-6.08 HEMOGLOBIN (BEAKER) (test qnne=451) 8.6 GM/DL 13.7-17.5 HEMATOCRIT (BEAKER) (test wkre=474) 28.7 % 40.1-51.0 MEAN CORPUSCULAR VOLUME (BEAKER) (test tkzz=460) 94.1 fL 79.0-92.2 MEAN CORPUSCULAR HEMOGLOBIN (BEAKER) (test 28.2 pg 25.7-32.2 bdsj=889) MEAN CORPUSCULAR HEMOGLOBIN CONC (BEAKER) (test 30.0 GM/DL 32.3-36.5 mzrl=662) RED CELL DISTRIBUTION WIDTH (BEAKER) (test 14.7 % 11.6-14.4 tshw=802) PLATELET COUNT (BEAKER) (test dheh=312) 406 K/CU MM 150-450 MEAN PLATELET VOLUME (BEAKER) (test cdfe=721) 10.0 fL 9.4-12.4 NUCLEATED RED BLOOD CELLS (BEAKER) (test 1 /100 WBC 0-0 adek=612) NEUTROPHILS RELATIVE PERCENT (BEAKER) (test 84 % brtn=513) LYMPHOCYTES RELATIVE PERCENT (BEAKER) (test 8 % hzoy=563) MONOCYTES RELATIVE PERCENT (BEAKER) (test 5 % gxok=673) EOSINOPHILS RELATIVE PERCENT (BEAKER) (test 1 % homx=326) BASOPHILS RELATIVE PERCENT (BEAKER) (test 0 % xend=898) NEUTROPHILS ABSOLUTE COUNT (BEAKER) (test 10.50 K/ L 1.78-5.38 zgjd=360) LYMPHOCYTES ABSOLUTE COUNT (BEAKER) (test 0.97 K/ L 1.32-3.57 alsz=405) MONOCYTES ABSOLUTE COUNT (BEAKER) (test 0.67 K/ L 0.30-0.82 drpt=387) EOSINOPHILS ABSOLUTE COUNT (BEAKER) (test 0.07 K/ L 0.04-0.54 pzej=302) BASOPHILS ABSOLUTE COUNT (BEAKER) (test 0.04 K/ L 0.01-0.08 hhdu=371) IMMATURE GRANULOCYTES-RELATIVE PERCENT (BEAKER) 2 % 0-1 (test ujik=3225) (MANUAL DIFFERENTIAL)2017-02-17 13:09:00 Test Item Value Reference Range Comments TOTAL COUNTED (BEAKER) (test iqxp=8764) ATYPICAL LYMPHS(BEAKER) (test zxtg=1335) Present LARGE PLT(BEAKER) (test dmyo=2161) Present POLYCHROMATOPHILLIC RBCS(BEAKER) (test dfkb=691) 2+ moderate POCT-GLUCOSE [id number] 10:22:00 Test Item Value Reference Range Comments POC-GLUCOSE METER (BEAKER) 220 mg/dL 70-110 TESTED AT [facility] [address] (test qtaj=9435) [facility] [address] RAD, CHEST, 1 VIEW, NON [id number] 08:34:00Reason for exam:->TRACHShould this be performed at [...] Verified Date/Time: 02/17/2017 08:34:57 Reading Location : [address] Neuro Reading Room [id number] 07:13:00 Test Item Value Reference Range Comments PHOSPHORUS (BEAKER) (test lozp=341) 2.6 mg/dL 2.3-4.7 [id number] 07:13:00 Test Item Value Reference Range Comments MAGNESIUM (BEAKER) (test uxec=430) 2.0 mg/dL 1.6-2.6 BASIC METABOLIC [id number] 07:13:00 Test Item Value Reference Range Comments SODIUM (BEAKER) (test 152 meq/L 136-145 qyan=904) POTASSIUM (BEAKER) (test 4.0 meq/L 3.5-5.1 qyuh=162) CHLORIDE (BEAKER) (test 117 meq/L 98-107 ntnp=104) CO2 (BEAKER) (test 27 meq/L 22-29 palv=519) BLOOD UREA NITROGEN 28 mg/dL 7-21 (BEAKER) (test pilo=006) CREATININE (BEAKER) (test 0.91 mg/dL 0.57-1.25 ezyd=405) GLUCOSE RANDOM (BEAKER) 222 mg/dL 70-105 (test ysyo=083) CALCIUM (BEAKER) (test 8.6 mg/dL 8.4-10.2 zutn=388) EGFR (BEAKER) (test 86 mL/min/1.73 sq m ESTIMATED GFR IS NOT aent=5003) ACCURATE CREATININE CLEARANCE IN PREDICTING GLOMERULAR FILTRATION RATE. ESTIMATED GFR IS NOT APPLICABLE FOR DIALYSIS PATIENTS. CALCIUM, [id number] 06:27:00 Test Item Value Reference Range Comments CALCIUM IONIZED (BEAKER) (test mnys=174) 1.13 mmol/L 1.12-1.27 PH, BLOOD (BEAKER) (test rxba=3647) 7.42 POCT-GLUCOSE [id number] 05:50:00 Test Item Value Reference Range Comments POC-GLUCOSE METER (BEAKER) 253 mg/dL 70-110 TESTED AT [address] (test amhd=4347) [place] [id number] POCT-GLUCOSE [id number] 22:31:00 Test Item Value Reference Range Comments POC-GLUCOSE METER (BEAKER) 263 mg/dL 70-110 TESTED AT [address] (test mhqa=7104) [facility] [address] POCT-GLUCOSE [id number] 18:21:00 Test Item Value Reference Range Comments POC-GLUCOSE METER (BEAKER) 231 mg/dL 70-110 TESTED AT [address] (test mfpc=7481) [place] [id number] POCT-GLUCOSE [id number] 17:46:00 Test Item Value Reference Range Comments POC-GLUCOSE METER (BEAKER) 208 mg/dL 70-110 TESTED AT [address] (test ylwi=3755) [place] [id number] POCT-GLUCOSE [id number] 12:32:00 Test Item Value Reference Range Comments POC-GLUCOSE METER (BEAKER) 271 mg/dL 70-110 TESTED AT [address] (test ghyu=6516) [facility] [address] RAD, CHEST, 1 VIEW, NON [id number] 07:30:00Reason for exam:->TRACHShould this be performed at [...] Verified Date/Time : 02/16/2017 07:30:27 Reading Location: [address] Transitional Reading Room POCT- GLUCOSE [id number] 06:18:00 Test Item Value Reference Range Comments POC-GLUCOSE METER (BEAKER) 247 mg/dL 70-110 TESTED AT [address] (test kqlb=7938) [facility] [address] POCT-GLUCOSE [id number] 06:10:00 Test Item Value Reference Range Comments POC-GLUCOSE METER (BEAKER) 290 mg/dL 70-110 TESTED AT [address] (test twkk=0953) [facility] [address] [id number] 03:15:00 Test Item Value Reference Range Comments PHOSPHORUS (BEAKER) (test hput=644) 2.3 mg/dL 2.3-4.7 [id number] 03:15:00 Test Item Value Reference Range Comments MAGNESIUM (BEAKER) (test gpei=116) 2.2 mg/dL 1.6-2.6 BASIC METABOLIC [id number] 03:15:00 Test Item Value Reference Range Comments SODIUM (BEAKER) (test 148 meq/L 136-145 qgzz=717) POTASSIUM (BEAKER) (test 4.4 meq/L 3.5-5.1 zyzd=740) CHLORIDE (BEAKER) (test 114 meq/L 98-107 xeuc=502) CO2 (BEAKER) (test 25 meq/L 22-29 odml=029) BLOOD UREA NITROGEN 30 mg/dL 7-21 (BEAKER) (test qwee=528) CREATININE (BEAKER) (test 1.06 mg/dL 0.57-1.25 gart=466) GLUCOSE RANDOM (BEAKER) 271 mg/dL 70-105 (test bjdr=969) CALCIUM (BEAKER) (test 8.1 mg/dL 8.4-10.2 wwve=986) EGFR (BEAKER) (test 72 mL/min/1.73 sq m ESTIMATED GFR IS NOT cnnh=6630) ACCURATE CREATININE CLEARANCE IN PREDICTING GLOMERULAR FILTRATION RATE. ESTIMATED GFR IS NOT APPLICABLE FOR DIALYSIS PATIENTS. BLOOD GAS, [id number] 03:14:00 Test Item Value Reference Range Comments PH ARTERIAL (BEAKER) (test lcfd=590) 7.48 7.35-7.45 PCO2 ARTERIAL (BEAKER) (test lwwu=049) 34 mmHg 35-45 PO2 ARTERIAL (BEAKER) (test waja=148) 98 mmHg 80-90 O2 SATURATION ARTERIAL (BEAKER) (test jubo=409) 97.6 % 96.0-97.0 HCO3 ARTERIAL (BEAKER) (test erqr=323) 25 mmol/L 21-29 BASE EXCESS ARTERIAL (BEAKER) (test gdys=949) 1.4 mmol/L -2.0-3.0 PATIENT TEMPERATURE (BEAKER) (test akiy=3751) 38.1 C FIO2 (BEAKER) (test ajke=2383) 40.0 % CBC W/PLT COUNT & AUTO [id number] 03:11:00 Test Item Value Reference Range Comments WHITE BLOOD CELL COUNT (BEAKER) (test lxbo=842) 11.0 K/ L 3.5-10.5 RED BLOOD CELL COUNT (BEAKER) (test hrrm=456) 2.96 M/ L 4.63-6.08 HEMOGLOBIN (BEAKER) (test tdiv=375) 8.4 GM/DL 13.7-17.5 HEMATOCRIT (BEAKER) (test biot=050) 27.7 % 40.1-51.0 MEAN CORPUSCULAR VOLUME (BEAKER) (test ywlm=801) 93.6 fL 79.0-92.2 MEAN CORPUSCULAR HEMOGLOBIN (BEAKER) (test 28.4 pg 25.7-32.2 lngf=618) MEAN CORPUSCULAR HEMOGLOBIN CONC (BEAKER) (test 30.3 GM/DL 32.3-36.5 ssbk=624) RED CELL DISTRIBUTION WIDTH (BEAKER) (test 14.6 % 11.6-14.4 qgvo=456) PLATELET COUNT (BEAKER) (test xpnb=660) 386 K/CU MM 150-450 MEAN PLATELET VOLUME (BEAKER) (test xxtj=341) 10.1 fL 9.4-12.4 NUCLEATED RED BLOOD CELLS (BEAKER) (test 1 /100 WBC 0-0 vpoa=619) NEUTROPHILS RELATIVE PERCENT (BEAKER) (test 83 % ufbd=803) LYMPHOCYTES RELATIVE PERCENT (BEAKER) (test 8 % rxvr=360) MONOCYTES RELATIVE PERCENT (BEAKER) (test 6 % dgss=405) EOSINOPHILS RELATIVE PERCENT (BEAKER) (test 0 % uuns=547) BASOPHILS RELATIVE PERCENT (BEAKER) (test 0 % ckof=104) NEUTROPHILS ABSOLUTE COUNT (BEAKER) (test 9.13 K/ L 1.78-5.38 hysk=501) LYMPHOCYTES ABSOLUTE COUNT (BEAKER) (test 0.91 K/ L 1.32-3.57 trvv=140) MONOCYTES ABSOLUTE COUNT (BEAKER) (test 0.69 K/ L 0.30-0.82 ophq=979) EOSINOPHILS ABSOLUTE COUNT (BEAKER) (test 0.03 K/ L 0.04-0.54 vphu=119) BASOPHILS ABSOLUTE COUNT (BEAKER) (test 0.04 K/ L 0.01-0.08 yknc=762) IMMATURE GRANULOCYTES-RELATIVE PERCENT (BEAKER) 2 % 0-1 (test ucjh=3814) CALCIUM, [id number] 03:10:00 Test Item Value Reference Range Comments CALCIUM IONIZED (BEAKER) (test nggq=499) 1.07 mmol/L 1.12-1.27 PH, BLOOD (BEAKER) (test rhkq=3390) 7.45 [id number] 22:29:00 Test Item Value Reference Range Comments SODIUM (BEAKER) (test ltvo=860) 145 meq/L 136-145 POCT-GLUCOSE [id number] 21:17:00 Test Item Value Reference Range Comments POC-GLUCOSE METER (BEAKER) 300 mg/dL 70-110 TESTED AT [address] (test xnyh=3682) [facility] [address] [address], [id number] 18:36:00CT A/P with IV and PO contrast.FINAL [...] Monster Forbes Verified Date/Time:2016 18:36:50 Reading Location: [facility] B1 C013Y CT Body Reading Room POCT-GLUCOSE [id number] 18:02:00 Test Item Value Reference Range Comments POC-GLUCOSE METER (BEAKER) 225 mg/dL 70-110 TESTED AT [facility] [address] (test dpwh=4208) [facility] [address] RAD, CHEST, 1 VIEW, NON [id number] 16:16:00Reason for exam:->Post trach placementShould this be [...] MDReport Verified Date/Time: 02/15/2017 16:16:24 Reading Location: [facility] METABOLIC [id number] 16:06:00 Test Item Value Reference Range Comments SODIUM (BEAKER) (test 149 meq/L 136-145 volj=674) POTASSIUM (BEAKER) (test 4.9 meq/L 3.5-5.1 fqeu=092) CHLORIDE (BEAKER) (test 114 meq/L 98-107 wvko=929) CO2 (BEAKER) (test 25 meq/L 22-29 vlxb=086) BLOOD UREA NITROGEN 28 mg/dL 7-21 (BEAKER) (test qlwk=820) CREATININE (BEAKER) (test 1.03 mg/dL 0.57-1.25 xjlu=612) GLUCOSE RANDOM (BEAKER) 172 mg/dL 70-105 (test eeun=297) CALCIUM (BEAKER) (test 8.3 mg/dL 8.4-10.2 nuvh=317) EGFR (BEAKER) (test 74 mL/min/1.73 sq m ESTIMATED GFR IS NOT cnef=8586) ACCURATE CREATININE CLEARANCE IN PREDICTING GLOMERULAR FILTRATION RATE. ESTIMATED GFR IS NOT APPLICABLE FOR DIALYSIS PATIENTS. EEG AWAKE AND [id number] 15:53:00Reason for exam:-> encephalopathyShould this be performed at the bedside?->YesDATE OF EE02-15 DATE OF REPORT: 02-15-2017 ACC: [id number] Start time: 13:17 Stoptime: 13:38 ICD-10: G 93.40 CPT Code: 67549 HISTORY: 57 y.o. male s/p robotic surgery for rectal cancer 2 weeks ago. 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 and transfer to the ICU MEDICATIONS THAT COULD AFFECT EEG: MIdazolam TECHNICAL SUMMARY: This is a digital video EEG recorded with 32 inputchannels on a [employer] system and then reviewed with bipolar and [...] Jovel MD Epilepsy Attending 03:53 PMBLOOD GAS, [id number] 15:51:00 Test Item Value Reference Range Comments PH ARTERIAL (BEAKER) (test dffe=432) 7.45 7.35-7.45 PCO2 ARTERIAL (BEAKER) (test tbzn=600) 40 mmHg 35-45 PO2 ARTERIAL (BEAKER) (test uuil=528) 54 mmHg 80-90 O2 SATURATION ARTERIAL (BEAKER) (test dqlj=195) 86.6 % 96.0-97.0 HCO3 ARTERIAL (BEAKER) (test fdox=678) 27 mmol/L 21-29 BASE EXCESS ARTERIAL (BEAKER) (test vnps=337) 3.3 mmol/L -2.0-3.0 PATIENT TEMPERATURE (BEAKER) (test ejng=5174) 38.8 C FIO2 (BEAKER) (test sdpp=1663) 40.0 % BLOOD [id number] 12:54:00 Test Item Value Reference Range Comments CULTURE (BEAKER) From Anaerobic Bottle Only (test yijs=8537) Coagulase negative Staphylococcus GRAM STAIN RESULT From anaerobic bottle (BEAKER) (test only: gram positive uwri=5077) cocci in clusters Coagulase Negative Staphylococcus Species [...] required. This sample was tested at the [facility] Clinical Microbiology Laboratory using the [employer] Blood Culture ID Panel.This test is FDA cleared for in vitro diagnostic use and has been verified and approved by the [facility] use. Reference Range: Not DetectedPOCT-GLUCOSE [id number] 12:46:00 Test Item Value Reference Range Comments POC-GLUCOSE METER (BEAKER) 124 mg/dL 70-110 TESTED AT [facility] [address] [place] [address] (test biff=0101) [facility] [address] POCT-GLUCOSE [id number] 11:30:00 Test Item Value Reference Range Comments POC-GLUCOSE METER (BEAKER) 80 mg/dL 70-110 TESTED AT [facility] [address] [place] [address] (test buwl=4752) [facility] [address] CBC W/PLT COUNT & AUTO [id number] 11:22:00 Test Item Value Reference Range Comments WHITE BLOOD CELL COUNT (BEAKER) (test bkkw=451) 11.2 K/ L 3.5-10.5 RED BLOOD CELL COUNT (BEAKER) (test vdeq=637) 3.12 M/ L 4.63-6.08 HEMOGLOBIN (BEAKER) (test eldv=487) 8.9 GM/DL 13.7-17.5 HEMATOCRIT (BEAKER) (test bsia=020) 29.0 % 40.1-51.0 MEAN CORPUSCULAR VOLUME (BEAKER) (test ybzb=007) 92.9 fL 79.0-92.2 MEAN CORPUSCULAR HEMOGLOBIN (BEAKER) (test 28.5 pg 25.7-32.2 mtvz=524) MEAN CORPUSCULAR HEMOGLOBIN CONC (BEAKER) (test 30.7 GM/DL 32.3-36.5 etdj=608) RED CELL DISTRIBUTION WIDTH (BEAKER) (test 14.5 % 11.6-14.4 etlk=323) PLATELET COUNT (BEAKER) (test yewz=190) 416 K/CU MM 150-450 MEAN PLATELET VOLUME (BEAKER) (test lsco=840) 9.9 fL 9.4-12.4 NUCLEATED RED BLOOD CELLS (BEAKER) (test 1 /100 WBC 0-0 pufk=923) IMMATURE GRANULOCYTES-RELATIVE PERCENT (BEAKER) 1 % 0-1 (test awwj=6911) (MANUAL DIFFERENTIAL)2017-02-15 11:22:00 Test Item Value Reference Range Comments NEUTROPHILS - REL (DIFF) (BEAKER) (test mbub=2577) 77 % LYMPHOCYTES - REL (DIFF) (BEAKER) (test tjwr=9999) 14 % MONOCYTES - REL (DIFF) (BEAKER) (test asfj=7926) 4 % MYELOCYTES-REL (DIFF) (BEAKER) (test nktw=4483) 1 % 0-0 BANDS - REL (DIFF) (BEAKER) (test zcav=2354) 4 % 0-10 NEUTROPHILS - ABS (DIFF) (BEAKER) (test eiqk=0082) 8.62 K/ L 1.80-8.00 LYMPHOCYTES - ABS (DIFF) (BEAKER) (test cwkp=9747) 1.57 K/ L 1.48-4.50 MONOCYTES - ABS (DIFF) (BEAKER) (test etqz=3781) 0.45 K/ L 0.00-1.30 BANDS-ABS (DIFF) (BEAKER) (test xszj=6913) 0.4 K/ L 0.0-0.8 MYELOCYTES-ABS (DIFF) (BEAKER) (test uhvy=0809) 0.11 K/ L 0.00-0.00 TOTAL COUNTED (BEAKER) (test rren=5768) 100 BANDS + SEGMENTED NEUTROPHILS (BEAKER) (test 9.07 zayd=3711) WBC MORPHOLOGY (BEAKER) (test nxnf=765) Normal PLT MORPHOLOGY (BEAKER) (test vilz=126) Normal RBC MORPHOLOGY (BEAKER) (test szlc=104) Normal RAD, CHEST, 1 VIEW, NON [id number] 08:47:00Reason for exam:-> IntubatedShould this be performed at the bedside?->YesFINAL REPORT AP chest HISTORY: Intubation COMPARISON: 02/14/2017 IMPRESSION: Supportive lines unchanged. Lungs hypoinflated. Stable cardiac silhouette. Mild interstitial edema. Trace effusions. No pneumothorax. No appreciable interval change. Signed: Piter Arreguin MDReport Verified Date/Time: 02/15/2017 08:47: 41 Reading Location: [facility] Radiology Reading Room POCT-GLUCOSE [id number] 06:02:00 Test Item Value Reference Range Comments POC-GLUCOSE METER (BEAKER) 94 mg/dL 70-110 TESTED AT [address] (test xfam=1329) [facility] [address] CALCIUM, [id number] 05:35:00 Test Item Value Reference Range Comments CALCIUM IONIZED (BEAKER) (test lryy=777) 1.10 mmol/L 1.12-1.27 PH, BLOOD (BEAKER) (test aqpt=7687) 7.47 BLOOD [id number] 05:02:00 Test Item Value Reference Range Comments CULTURE (BEAKER) (test nyrz=2795) No growth in 5 days [id number] 04:56:00 Test Item Value Reference Range Comments PHOSPHORUS (BEAKER) (test zywl=175) 3.1 mg/dL 2.3-4.7 [id number] 04:56:00 Test Item Value Reference Range Comments MAGNESIUM (BEAKER) (test atch=959) 2.3 mg/dL 1.6-2.6 BASIC METABOLIC [id number] 04:56:00 Test Item Value Reference Range Comments SODIUM (BEAKER) (test 151 meq/L 136-145 cxbi=438) POTASSIUM (BEAKER) (test 4.3 meq/L 3.5-5.1 yhxx=819) CHLORIDE (BEAKER) (test 116 meq/L 98-107 gclb=304) CO2 (BEAKER) (test 26 meq/L 22-29 irip=183) BLOOD UREA NITROGEN 28 mg/dL 7-21 (BEAKER) (test ybwr=084) CREATININE (BEAKER) (test 0.79 mg/dL 0.57-1.25 ipli=050) GLUCOSE RANDOM (BEAKER) 70 mg/dL 70-105 (test ylem=351) CALCIUM (BEAKER) (test 8.3 mg/dL 8.4-10.2 jwpk=119) EGFR (BEAKER) (test 101 mL/min/1.73 sq m ESTIMATED GFR IS NOT atzb=0103) ACCURATE CREATININE CLEARANCE IN PREDICTING GLOMERULAR FILTRATION RATE. ESTIMATED GFR IS NOT APPLICABLE FOR DIALYSIS PATIENTS. POCT-GLUCOSE [id number] 22:11:00 Test Item Value Reference Range Comments POC-GLUCOSE METER (BEAKER) 158 mg/dL 70-110 TESTED AT [facility] [address] [facility] (test kkvl=7231) [facility] [address] POCT-GLUCOSE [id number] 18:32:00 Test Item Value Reference Range Comments POC-GLUCOSE METER (BEAKER) 201 mg/dL 70-110 TESTED AT [facility] [address] [facility] (test iogl=3766) [facility] [address] HEPARIN ASSAY - LOW MOLECULAR [id number] 15:54:00 Test Item Value Reference Range Comments LOVENOX-ANTI 10A (BEAKER) (test shqq=8462) 0.85 u/ml 0.60-2.00 Anti-Factor 10-A Level (Heparin Assay for Low Molecular Weight Heparin) Monitoring Guidelines: Blood samples should be obtained 4 hours post subcutaneous injection (time of Peak level) Therapeutic Peak Levels: 0.6-1.0 units/mL twice daily enoxaparin 1.0-2.0 units/mL once daily enoxaparinRef: CHEST 2012;141:[id number] draw 5 hours after Lovenox administration. Thank you!POCT-GLUCOSE [id number] 12:52:00 Test Item Value Reference Range Comments POC-GLUCOSE METER (BEAKER) 193 mg/dL 70-110 TESTED AT [facility] [address] [facility] (test vuso=2957) [place] [id number] POCT-GLUCOSE [id number] 08:10:00 Test Item Value Reference Range Comments POC-GLUCOSE METER (BEAKER) 194 mg/dL 70-110 TESTED AT [address] (test ufik=1772) [place] [address] RAD, CHEST, 1 VIEW, NON [id number] 07:56:00Reason for exam:-> IntubatedShould this be performed at the bedside?->YesFINAL REPORT Chest one view. Clinical history: Intubated Comparison: 2016 Discussion: A frontal chest is provided. Cardiomediastinal contours are unchanged. Lines and tubes are in stable position. Low lung volume with bibasilar atelectasis. No new consolidation. No pneumothorax. Probable small bilateral effusions. Signed: Mac Santamaria Verified Date/Time: 02/14/2017 07:56:55 Reading Location: [facility] Radiology Reading Room POCT-GLUCOSE [id number] 05:50:00 Test Item Value Reference Range Comments POC-GLUCOSE METER (BEAKER) 207 mg/dL 70-110 TESTED AT [address] (test rovq=9445) [place] [id number] CBC W/PLT COUNT & AUTO [id number] 04:20:00 Test Item Value Reference Range Comments WHITE BLOOD CELL COUNT (BEAKER) (test zcqg=556) 11.9 K/ L 3.5-10.5 RED BLOOD CELL COUNT (BEAKER) (test smjt=147) 3.27 M/ L 4.63-6.08 HEMOGLOBIN (BEAKER) (test ybhu=108) 9.3 GM/DL 13.7-17.5 HEMATOCRIT (BEAKER) (test dzqp=819) 30.4 % 40.1-51.0 MEAN CORPUSCULAR VOLUME (BEAKER) (test cued=875) 93.0 fL 79.0-92.2 MEAN CORPUSCULAR HEMOGLOBIN (BEAKER) (test 28.4 pg 25.7-32.2 fjkg=755) MEAN CORPUSCULAR HEMOGLOBIN CONC (BEAKER) (test 30.6 GM/DL 32.3-36.5 cqnr=907) RED CELL DISTRIBUTION WIDTH (BEAKER) (test 14.4 % 11.6-14.4 kqxv=410) PLATELET COUNT (BEAKER) (test scfn=873) 421 K/CU MM 150-450 MEAN PLATELET VOLUME (BEAKER) (test ztft=563) 10.1 fL 9.4-12.4 NUCLEATED RED BLOOD CELLS (BEAKER) (test 0 /100 WBC 0-0 oilo=511) NEUTROPHILS RELATIVE PERCENT (BEAKER) (test 80 % nuqb=341) LYMPHOCYTES RELATIVE PERCENT (BEAKER) (test 10 % kukj=632) MONOCYTES RELATIVE PERCENT (BEAKER) (test 8 % jdee=802) EOSINOPHILS RELATIVE PERCENT (BEAKER) (test 1 % nvtp=700) BASOPHILS RELATIVE PERCENT (BEAKER) (test 1 % rytj=197) NEUTROPHILS ABSOLUTE COUNT (BEAKER) (test 9.46 K/ L 1.78-5.38 jkhj=634) LYMPHOCYTES ABSOLUTE COUNT (BEAKER) (test 1.18 K/ L 1.32-3.57 haak=762) MONOCYTES ABSOLUTE COUNT (BEAKER) (test 0.93 K/ L 0.30-0.82 hgop=558) EOSINOPHILS ABSOLUTE COUNT (BEAKER) (test 0.08 K/ L 0.04-0.54 dfom=666) BASOPHILS ABSOLUTE COUNT (BEAKER) (test 0.06 K/ L 0.01-0.08 xlnx=731) IMMATURE GRANULOCYTES-RELATIVE PERCENT (BEAKER) 2 % 0-1 (test qnlm=8026) [id number] 04:16:00 Test Item Value Reference Range Comments PHOSPHORUS (BEAKER) (test utta=096) 2.3 mg/dL 2.3-4.7 [id number] 04:16:00 Test Item Value Reference Range Comments MAGNESIUM (BEAKER) (test mtcw=822) 2.3 mg/dL 1.6-2.6 BASIC METABOLIC [id number] 04:16:00 Test Item Value Reference Range Comments SODIUM (BEAKER) (test 149 meq/L 136-145 mzhb=257) POTASSIUM (BEAKER) (test 4.4 meq/L 3.5-5.1 gocy=181) CHLORIDE (BEAKER) (test 114 meq/L 98-107 zjlx=711) CO2 (BEAKER) (test 26 meq/L 22-29 rzlf=843) BLOOD UREA NITROGEN 29 mg/dL 7-21 (BEAKER) (test cpib=002) CREATININE (BEAKER) (test 0.91 mg/dL 0.57-1.25 jtir=842) GLUCOSE RANDOM (BEAKER) 185 mg/dL 70-105 (test zwdc=182) CALCIUM (BEAKER) (test 8.4 mg/dL 8.4-10.2 phti=549) EGFR (BEAKER) (test 86 mL/min/1.73 sq m ESTIMATED GFR IS NOT kkry=7012) ACCURATE CREATININE CLEARANCE IN PREDICTING GLOMERULAR FILTRATION RATE. ESTIMATED GFR IS NOT APPLICABLE FOR DIALYSIS PATIENTS. PROTHROMBIN TIME/[id number] 03:57:00 Test Item Value Reference Range Comments PROTIME (BEAKER) (test gqzg=832) 16.4 seconds 11.7-14.7 INR (BEAKER) (test temh=062) 1.3 <=5.9 RECOMMENDED COUMADIN/WARFARIN INR THERAPY RANGESSTANDARD DOSE: 2.0 - 3.0 Includes: PROPHYLAXIS forvenous thrombosis, systemic embolization; TREATMENT for venous thrombosis and/or pulmonary embolus.HIGH RISK: Target INR is 2.5-3.5 for patients with mechanical heart valves.CALCIUM, [id number] 03:35:00 Test Item Value Reference Range Comments CALCIUM IONIZED (BEAKER) (test omdi=972) 1.09 mmol/L 1.12-1.27 PH, BLOOD (BEAKER) (test wqgt=5117) 7.46 POCT-GLUCOSE [id number] 00:32:00 Test Item Value Reference Range Comments POC-GLUCOSE METER (BEAKER) 256 mg/dL 70-110 TESTED AT [place] [id number] [facility] (test joqc=7477) [facility] [address] POCT-GLUCOSE [id number] 21:46:00 Test Item Value Reference Range Comments POC-GLUCOSE METER (BEAKER) 293 mg/dL 70-110 TESTED AT [place] [id number] [facility] (test pqlt=8659) [facility] [address] HEPARIN ASSAY - LOW MOLECULAR [id number] 18:03:00 Test Item Value Reference Range Comments LOVENOX-ANTI 10A (BEAKER) (test kzbc=8597) 0.97 u/ml 0.60-2.00 Anti-Factor 10-A Level (Heparin Assay for Low Molecular Weight Heparin) Monitoring Guidelines: Blood samples should be obtained 4 hours post subcutaneous injection (time of Peak level) Therapeutic Peak Levels: 0.6-1.0 units/mL twice daily enoxaparin 1.0-2.0 units/mL once daily enoxaparinRef: CHEST 2012;141:[id number] 17:02:00 Test Item Value Reference Range Comments POC-GLUCOSE METER ([place]) 271 mg/dL 70-110 TESTED AT [address] (test unbz=2716) [place] [id number] POCT-GLUCOSE [id number] 12:15:00 Test Item Value Reference Range Comments POC-GLUCOSE METER ([place]) 283 mg/dL 70-110 TESTED AT [address] (test voha=4030) [place] [id number] MISCELLANEOUS LAB [id number] 10:55:00 Test Item Value Reference Range Comments SCAN RESULT (test xjen=[id number]) Result comments: Coagulase Negative Staphylococcus Species (CoNS) [...] required. This sample was tested at the [facility] Clinical Microbiology Laboratory using the [employer] Blood Culture ID Panel. This test is FDA cleared for in vitro diagnostic use and has been verified and approved by the [facility] Clinical Microbiology laboratory for clinical use. Reference Range: Not DetectedRAD, CHEST, 1 VIEW, NON [id number] 07:21:00Reason for exam:->IntubatedShould this be performed at the bedside ?->YesFINAL REPORT Chest, one view. HISTORY: Intubated COMPARISON: 02/12/2017 IMPRESSION: Supporting lines and tubes unchanged in position. Unchanged low lung volumes and mild bibasilar atelectasis. Cardiomediastinal silhouette is persistently enlarged. Trace bilateral pleural effusions. No pneumothorax. Signed: Hank Gray MDReport Verified Date/Time: 02/13/2017 07:21:31 [facility] Electronically signed by: HANK GRAY MD on 07:21 AMPOCT-GLUCOSE [id number] 05:53:00 Test Item Value Reference Range Comments POC-GLUCOSE METER (BEAKER) 218 mg/dL 70-110 TESTED AT [facility] [address] [facility] (test orag=7272) [facility] [address] CBC W/PLT COUNT & AUTO [id number] 04:42:00 Test Item Value Reference Range Comments WHITE BLOOD CELL COUNT (BEAKER) (test bekh=799) 11.6 K/ L 3.5-10.5 RED BLOOD CELL COUNT (BEAKER) (test peeb=795) 3.30 M/ L 4.63-6.08 HEMOGLOBIN (BEAKER) (test iuul=604) 9.6 GM/DL 13.7-17.5 HEMATOCRIT (BEAKER) (test nvtc=215) 30.6 % 40.1-51.0 MEAN CORPUSCULAR VOLUME (BEAKER) (test swst=558) 92.7 fL 79.0-92.2 MEAN CORPUSCULAR HEMOGLOBIN (BEAKER) (test 29.1 pg 25.7-32.2 keeh=578) MEAN CORPUSCULAR HEMOGLOBIN CONC (BEAKER) (test 31.4 GM/DL 32.3-36.5 tswe=441) RED CELL DISTRIBUTION WIDTH (BEAKER) (test 14.2 % 11.6-14.4 oinn=686) PLATELET COUNT (BEAKER) (test ppxc=407) 382 K/CU MM 150-450 MEAN PLATELET VOLUME (BEAKER) (test bwin=341) 10.1 fL 9.4-12.4 NUCLEATED RED BLOOD CELLS (BEAKER) (test 0 /100 WBC 0-0 owvc=110) NEUTROPHILS RELATIVE PERCENT (BEAKER) (test 82 % vyuo=069) LYMPHOCYTES RELATIVE PERCENT (BEAKER) (test 8 % joya=764) MONOCYTES RELATIVE PERCENT (BEAKER) (test 7 % mqrk=362) EOSINOPHILS RELATIVE PERCENT (BEAKER) (test 1 % afuc=300) BASOPHILS RELATIVE PERCENT (BEAKER) (test 0 % qgkd=367) NEUTROPHILS ABSOLUTE COUNT (BEAKER) (test 9.45 K/ L 1.78-5.38 hxck=875) LYMPHOCYTES ABSOLUTE COUNT (BEAKER) (test 0.96 K/ L 1.32-3.57 bddm=107) MONOCYTES ABSOLUTE COUNT (BEAKER) (test 0.85 K/ L 0.30-0.82 whqg=302) EOSINOPHILS ABSOLUTE COUNT (BEAKER) (test 0.11 K/ L 0.04-0.54 pgjl=309) BASOPHILS ABSOLUTE COUNT (BEAKER) (test 0.03 K/ L 0.01-0.08 uzyt=070) IMMATURE GRANULOCYTES-RELATIVE PERCENT (BEAKER) 1 % 0-1 (test obxv=5059) [id number] 04:10:00 Test Item Value Reference Range Comments PHOSPHORUS (BEAKER) (test bhqx=906) 2.8 mg/dL 2.3-4.7 [id number] 04:10:00 Test Item Value Reference Range Comments MAGNESIUM (BEAKER) (test cmjq=187) 2.1 mg/dL 1.6-2.6 BASIC METABOLIC [id number] 04:10:00 Test Item Value Reference Range Comments SODIUM (BEAKER) (test 146 meq/L 136-145 yrdn=542) POTASSIUM (BEAKER) (test 4.5 meq/L 3.5-5.1 xjyr=484) CHLORIDE (BEAKER) (test 110 meq/L 98-107 afmd=444) CO2 (BEAKER) (test 26 meq/L 22-29 uotp=588) BLOOD UREA NITROGEN 30 mg/dL 7-21 (BEAKER) (test dzen=780) CREATININE (BEAKER) (test 0.92 mg/dL 0.57-1.25 ztgw=046) GLUCOSE RANDOM (BEAKER) 197 mg/dL 70-105 (test flxt=171) CALCIUM (BEAKER) (test 8.4 mg/dL 8.4-10.2 oavw=451) EGFR (BEAKER) (test 84 mL/min/1.73 sq m ESTIMATED GFR IS NOT pykx=1794) ACCURATE CREATININE CLEARANCE IN PREDICTING GLOMERULAR FILTRATION RATE. ESTIMATED GFR IS NOT APPLICABLE FOR DIALYSIS PATIENTS. PROTHROMBIN TIME/[id number] 04:06:00 Test Item Value Reference Range Comments PROTIME (BEAKER) (test ayod=583) 16.4 seconds 11.7-14.7 INR (BEAKER) (test kieb=649) 1.3 <=5.9 RECOMMENDED COUMADIN/WARFARIN INR THERAPY RANGESSTANDARD DOSE: 2.0 - 3.0 Includes: PROPHYLAXIS forvenous thrombosis, systemic embolization; TREATMENT for venous thrombosis and/or pulmonary embolus.HIGH RISK: Target INR is 2.5-3.5 for patients with mechanical heart valves.CALCIUM, [id number] 03:40:00 Test Item Value Reference Range Comments CALCIUM IONIZED (BEAKER) (test pdfe=865) 1.10 mmol/L 1.12-1.27 PH, BLOOD (BEAKER) (test rhvm=0351) 7.46 POCT-GLUCOSE [id number] 00:37:00 Test Item Value Reference Range Comments POC-GLUCOSE METER (BEAKER) 196 mg/dL 70-110 TESTED AT [address] (test nqpo=6010) [place] [address] POCT-GLUCOSE [id number] 20:45:00 Test Item Value Reference Range Comments POC-GLUCOSE METER (BEAKER) 183 mg/dL 70-110 TESTED AT [address] (test cxws=0991) [place] [address] POCT-GLUCOSE [id number] 17:50:00 Test Item Value Reference Range Comments POC-GLUCOSE METER (BEAKER) 216 mg/dL 70-110 TESTED AT [address] (test qujt=4686) [place] [address] CBC W/PLT COUNT & AUTO [id number] 15:43:00 Test Item Value Reference Range Comments WHITE BLOOD CELL COUNT (BEAKER) (test vvjv=881) 10.0 K/ L 3.5-10.5 RED BLOOD CELL COUNT (BEAKER) (test ceye=326) 3.41 M/ L 4.63-6.08 HEMOGLOBIN (BEAKER) (test imty=870) 9.8 GM/DL 13.7-17.5 HEMATOCRIT (BEAKER) (test acuj=635) 31.8 % 40.1-51.0 MEAN CORPUSCULAR VOLUME (BEAKER) (test wnab=989) 93.3 fL 79.0-92.2 MEAN CORPUSCULAR HEMOGLOBIN (BEAKER) (test 28.7 pg 25.7-32.2 hpij=969) MEAN CORPUSCULAR HEMOGLOBIN CONC (BEAKER) (test 30.8 GM/DL 32.3-36.5 wsxu=700) RED CELL DISTRIBUTION WIDTH (BEAKER) (test 14.3 % 11.6-14.4 lynf=433) PLATELET COUNT (BEAKER) (test luea=112) 383 K/CU MM 150-450 MEAN PLATELET VOLUME (BEAKER) (test hevd=817) 9.8 fL 9.4-12.4 NUCLEATED RED BLOOD CELLS (BEAKER) (test 0 /100 WBC 0-0 kepm=113) NEUTROPHILS RELATIVE PERCENT (BEAKER) (test 77 % qdxd=753) LYMPHOCYTES RELATIVE PERCENT (BEAKER) (test 10 % assu=468) MONOCYTES RELATIVE PERCENT (BEAKER) (test 7 % esnq=043) EOSINOPHILS RELATIVE PERCENT (BEAKER) (test 4 % xvvc=803) BASOPHILS RELATIVE PERCENT (BEAKER) (test 0 % mnfu=145) NEUTROPHILS ABSOLUTE COUNT (BEAKER) (test 7.65 K/ L 1.78-5.38 hpgr=816) LYMPHOCYTES ABSOLUTE COUNT (BEAKER) (test 1.02 K/ L 1.32-3.57 nxfy=171) MONOCYTES ABSOLUTE COUNT (BEAKER) (test 0.74 K/ L 0.30-0.82 iwyw=490) EOSINOPHILS ABSOLUTE COUNT (BEAKER) (test 0.36 K/ L 0.04-0.54 blub=173) BASOPHILS ABSOLUTE COUNT (BEAKER) (test 0.04 K/ L 0.01-0.08 lpft=226) IMMATURE GRANULOCYTES-RELATIVE PERCENT (BEAKER) 1 % 0-1 (test bfhx=8702) HEPARIN ASSAY - LOW MOLECULAR [id number] 14:36:00 Test Item Value Reference Range Comments LOVENOX-ANTI 10A (BEAKER) (test vymu=7891) 1.24 u/ml 0.60-2.00 Anti-Factor 10-A Level (Heparin Assay for Low Molecular Weight Heparin) Monitoring Guidelines: Blood samples should be obtained 4 hours post subcutaneous injection (time of Peak level) Therapeutic Peak Levels: 0.6-1.0 units/mL twice daily enoxaparin 1.0-2.0 units/mL once daily enoxaparinRef: CHEST 2012;141:[id number] 11:36:00 Test Item Value Reference Range Comments POC-GLUCOSE METER (BEAKER) 170 mg/dL 70-110 TESTED AT [address] (test nskm=6114) [facility] [address] BLOOD [id number] 10:00:00 Test Item Value Reference Range Comments CULTURE (BEAKER) (test gjuo=4180) No growth in 5 days RAD, CHEST, 1 VIEW, NON [id number] 08:20:00Reason for exam:-> IntubatedShould this be performed [...] or aspiration cannot be excluded. Signed: [facility] Verified Date/Time: 02/12/2017 08:20 :14 Reading Location: [facility] Radiology Reading Room POCT-GLUCOSE [id number] 06:21:00 Test Item Value Reference Range Comments POC-GLUCOSE METER (BEAKER) 195 mg/dL 70-110 TESTED AT [address] (test rixq=5327) [facility] [address] CALCIUM, [id number] 05:49:00 Test Item Value Reference Range Comments CALCIUM IONIZED (BEAKER) (test fdff=044) 1.11 mmol/L 1.12-1.27 PH, BLOOD (BEAKER) (test kqls=2157) 7.45 [id number] 04:16:00 Test Item Value Reference Range Comments PHOSPHORUS (BEAKER) (test ybwj=801) 2.9 mg/dL 2.3-4.7 [id number] 04:16:00 Test Item Value Reference Range Comments MAGNESIUM (BEAKER) (test ryka=042) 2.0 mg/dL 1.6-2.6 BASIC METABOLIC [id number] 04:16:00 Test Item Value Reference Range Comments SODIUM (BEAKER) (test 143 meq/L 136-145 hrgf=540) POTASSIUM (BEAKER) (test 4.6 meq/L 3.5-5.1 rpny=008) CHLORIDE (BEAKER) (test 110 meq/L 98-107 ftst=200) CO2 (BEAKER) (test 24 meq/L 22-29 xezo=071) BLOOD UREA NITROGEN 28 mg/dL 7-21 (BEAKER) (test drpp=303) CREATININE (BEAKER) (test 0.87 mg/dL 0.57-1.25 itrd=842) GLUCOSE RANDOM (BEAKER) 159 mg/dL 70-105 (test najc=261) CALCIUM (BEAKER) (test 8.4 mg/dL 8.4-10.2 galx=063) EGFR (BEAKER) (test 90 mL/min/1.73 sq m ESTIMATED GFR IS NOT dewr=1780) ACCURATE CREATININE CLEARANCE IN PREDICTING GLOMERULAR FILTRATION RATE. ESTIMATED GFR IS NOT APPLICABLE FOR DIALYSIS PATIENTS. PROTHROMBIN TIME/[id number] 04:06:00 Test Item Value Reference Range Comments PROTIME (BEAKER) (test dtag=418) 16.2 seconds 11.7-14.7 INR (BEAKER) (test zfcf=062) 1.3 <=5.9 RECOMMENDED COUMADIN/WARFARIN INR THERAPY RANGESSTANDARD DOSE: 2.0 - 3.0 Includes: PROPHYLAXIS forvenous thrombosis, systemic embolization; TREATMENT for venous thrombosis and/or pulmonary embolus.HIGH RISK: Target INR is 2.5-3.5 for patients with mechanical heart valves.POCT-GLUCOSE [id number] 23:43:00 Test Item Value Reference Range Comments POC-GLUCOSE METER (BEAKER) 113 mg/dL 70-110 TESTED AT [place] [id number] [facility] (test diqk=6348) [facility] [address] POCT-GLUCOSE [id number] 22:24:00 Test Item Value Reference Range Comments POC-GLUCOSE METER (BEAKER) 130 mg/dL 70-110 TESTED AT [address] (test tzyc=4605) [facility] [address] POCT-GLUCOSE [id number] 17:28:00 Test Item Value Reference Range Comments POC-GLUCOSE METER (BEAKER) 130 mg/dL 70-110 TESTED AT [address] (test yhgc=1500) [facility] [address] POCT-GLUCOSE [id number] 11:32:00 Test Item Value Reference Range Comments POC-GLUCOSE METER (BEAKER) 159 mg/dL 70-110 TESTED AT [address] (test rcjb=3238) [facility] [address] CALCIUM, [id number] 07:42:00 Test Item Value Reference Range Comments CALCIUM IONIZED (BEAKER) (test ypwz=576) 1.13 mmol/L 1.12-1.27 PH, BLOOD (BEAKER) (test zgit=6574) 7.43 [id number] 06:30:00 Test Item Value Reference Range Comments PHOSPHORUS (BEAKER) (test qsej=768) 2.7 mg/dL 2.3-4.7 [id number] 06:30:00 Test Item Value Reference Range Comments MAGNESIUM (BEAKER) (test qsgo=758) 1.9 mg/dL 1.6-2.6 BASIC METABOLIC [id number] 06:30:00 Test Item Value Reference Range Comments SODIUM (BEAKER) (test 144 meq/L 136-145 cxok=641) POTASSIUM (BEAKER) (test 4.4 meq/L 3.5-5.1 akwz=230) CHLORIDE (BEAKER) (test 110 meq/L 98-107 trkg=324) CO2 (BEAKER) (test 26 meq/L 22-29 tcdm=638) BLOOD UREA NITROGEN 27 mg/dL 7-21 (BEAKER) (test ucoz=875) CREATININE (BEAKER) (test 0.87 mg/dL 0.57-1.25 pldb=580) GLUCOSE RANDOM (BEAKER) 176 mg/dL 70-105 (test qjfd=694) CALCIUM (BEAKER) (test 8.3 mg/dL 8.4-10.2 wkwx=655) EGFR (BEAKER) (test 90 mL/min/1.73 sq m ESTIMATED GFR IS NOT mnva=8241) ACCURATE CREATININE CLEARANCE IN PREDICTING GLOMERULAR FILTRATION RATE. ESTIMATED GFR IS NOT APPLICABLE FOR DIALYSIS PATIENTS. CBC W/PLT COUNT & AUTO [id number] 05:59:00 Test Item Value Reference Range Comments WHITE BLOOD CELL COUNT (BEAKER) (test jmbg=769) 7.8 K/ L 3.5-10.5 RED BLOOD CELL COUNT (BEAKER) (test udkc=926) 3.32 M/ L 4.63-6.08 HEMOGLOBIN (BEAKER) (test citl=963) 9.4 GM/DL 13.7-17.5 HEMATOCRIT (BEAKER) (test lbvr=726) 30.8 % 40.1-51.0 MEAN CORPUSCULAR VOLUME (BEAKER) (test kevb=550) 92.8 fL 79.0-92.2 MEAN CORPUSCULAR HEMOGLOBIN (BEAKER) (test 28.3 pg 25.7-32.2 tymi=023) MEAN CORPUSCULAR HEMOGLOBIN CONC (BEAKER) (test 30.5 GM/DL 32.3-36.5 osqd=972) RED CELL DISTRIBUTION WIDTH (BEAKER) (test 14.3 % 11.6-14.4 owjl=710) PLATELET COUNT (BEAKER) (test nzni=250) 355 K/CU MM 150-450 MEAN PLATELET VOLUME (BEAKER) (test zgrs=881) 10.4 fL 9.4-12.4 NUCLEATED RED BLOOD CELLS (BEAKER) (test 0 /100 WBC 0-0 tmff=868) NEUTROPHILS RELATIVE PERCENT (BEAKER) (test 76 % ryof=507) LYMPHOCYTES RELATIVE PERCENT (BEAKER) (test 11 % svxa=061) MONOCYTES RELATIVE PERCENT (BEAKER) (test 8 % qoqd=907) EOSINOPHILS RELATIVE PERCENT (BEAKER) (test 4 % ikek=974) BASOPHILS RELATIVE PERCENT (BEAKER) (test 1 % tjks=683) NEUTROPHILS ABSOLUTE COUNT (BEAKER) (test 5.90 K/ L 1.78-5.38 hggr=196) LYMPHOCYTES ABSOLUTE COUNT (BEAKER) (test 0.82 K/ L 1.32-3.57 ezsp=267) MONOCYTES ABSOLUTE COUNT (BEAKER) (test 0.63 K/ L 0.30-0.82 wqdt=761) EOSINOPHILS ABSOLUTE COUNT (BEAKER) (test 0.30 K/ L 0.04-0.54 jdse=509) BASOPHILS ABSOLUTE COUNT (BEAKER) (test 0.05 K/ L 0.01-0.08 akwu=301) IMMATURE GRANULOCYTES-RELATIVE PERCENT (BEAKER) 1 % 0-1 (test fpje=2728) PROTHROMBIN [id number] 05:47:00 Test Item Value Reference Range Comments PROTIME (BEAKER) (test aqeh=856) 21.0 seconds 11.7-14.7 INR (BEAKER) (test fylz=975) 1.8 <=5.9 RECOMMENDED COUMADIN/WARFARIN INR THERAPY RANGESSTANDARD DOSE: 2.0 - 3.0 Includes: PROPHYLAXIS forvenous thrombosis, systemic embolization; TREATMENT for venous thrombosis and/or pulmonary embolus.HIGH RISK: Target INR is 2.5-3.5 for patients with mechanical heart valves.RAD, CHEST, 1 VIEW, NON [id number] 04:14:00Reason for exam:->IntubatedShould this be performed [...] MDReport Verified Date/Time: 02/11/2017 04:14:25 Reading Location: [address] Body Reading Room POCT-GLUCOSE [id number] 22:39:00 Test Item Value Reference Range Comments POC-GLUCOSE METER (BEAKER) 140 mg/dL 70-110 TESTED AT [facility] [address] [place] [address] (test ilex=0236) [facility] [address] [address], [id number] 20:17:00Will need PO contrastFINAL REPORT CLINICAL HISTORY: [...] Verified Date/Time: 02/10/2017 20: 17:54 Reading Location: [address] Reading Room SPUTUM CULTURE + GRAM [id number] 19:37:00 Test Item Value Reference Range Comments CULTURE (BEAKER) (test nqmq=3827) No growth GRAM STAIN RESULT (BEAKER) (test 1+ WBCs opiy=2039) GRAM STAIN RESULT (BEAKER) (test 10-15 epithelial cells atvw=05608) GRAM STAIN RESULT (BEAKER) (test 1+ gram positive rods hqmb=28476) GRAM STAIN RESULT (BEAKER) (test <1+ budding yeast jbwx=886426) POCT-GLUCOSE [id number] 18:10:00 Test Item Value Reference Range Comments POC-GLUCOSE METER (BEAKER) 135 mg/dL 70-110 TESTED AT [address] (test axig=5644) [place] [address] URINE [id number] 13:18:00 Test Item Value Reference Range Comments CULTURE (BEAKER) (test eauu=9722) No growth POCT-GLUCOSE [id number] 12:21:00 Test Item Value Reference Range Comments POC-GLUCOSE METER (BEAKER) 252 mg/dL 70-110 TESTED AT [address] (test pbdk=2701) [place] [id number] POCT-GLUCOSE [id number] 05:16:00 Test Item Value Reference Range Comments POC-GLUCOSE METER (BEAKER) 155 mg/dL 70-110 TESTED AT [address] (test utxf=5515) [place] [id number] POCT-GLUCOSE [id number] 05:16:00 Test Item Value Reference Range Comments POC-GLUCOSE METER (BEAKER) 169 mg/dL 70-110 TESTED AT [address] (test kvwz=6510) [place] [id number] POCT-GLUCOSE [id number] 04:39:00 Test Item Value Reference Range Comments POC-GLUCOSE METER (BEAKER) 151 mg/dL 70-110 TESTED AT [address] (test xhxs=3793) [place] [id number] RAD, CHEST, 1 VIEW, NON [id number] 04:00:00Reason for exam:-> IntubatedShould this be performed at the bedside?->YesFINAL REPORT CLINICAL INDICATION: Support lines. Comparison: 02/09/2017 The cardiomediastinal contours are stable. The lung volumes remain low. Central pulmonary vascular congestion and bilateral parenchymal opacities are unchanged. There is no pneumothorax. Support lines are stable. Signed: Nilesh Sheets MDReport Verified Date/Time: 02/10/2017 04:00:58 Reading Location: [address] Reading Room CALCIUM, [id number] 03:45:00 Test Item Value Reference Range Comments CALCIUM IONIZED (BEAKER) (test tvdf=698) 1.09 mmol/L 1.12-1.27 PH, BLOOD (BEAKER) (test ooip=6087) 7.49 PROTHROMBIN [id number] 03:22:00 Test Item Value Reference Range Comments PROTIME (BEAKER) (test uqxd=445) 16.3 seconds 11.7-14.7 INR (BEAKER) (test zntg=765) 1.3 <=5.9 RECOMMENDED COUMADIN/WARFARIN INR THERAPY RANGESSTANDARD DOSE: 2.0 - 3.0 Includes: PROPHYLAXIS forvenous thrombosis, systemic embolization; TREATMENT for venous thrombosis and/or pulmonary embolus.HIGH RISK: Target INR is 2.5-3.5 for patients with mechanical heart valves.[id number] 03:19:00 Test Item Value Reference Range Comments PHOSPHORUS (BEAKER) (test mkvz=826) 2.8 mg/dL 2.3-4.7 [id number] 03:19:00 Test Item Value Reference Range Comments MAGNESIUM (BEAKER) (test obpz=810) 2.0 mg/dL 1.6-2.6 BASIC METABOLIC [id number] 03:19:00 Test Item Value Reference Range Comments SODIUM (BEAKER) (test 145 meq/L 136-145 drdm=910) POTASSIUM (BEAKER) (test 4.6 meq/L 3.5-5.1 asku=987) CHLORIDE (BEAKER) (test 114 meq/L 98-107 yaon=809) CO2 (BEAKER) (test 25 meq/L 22-29 ctjz=371) BLOOD UREA NITROGEN 25 mg/dL 7-21 (BEAKER) (test apam=060) CREATININE (BEAKER) (test 0.84 mg/dL 0.57-1.25 vtsq=729) GLUCOSE RANDOM (BEAKER) 165 mg/dL 70-105 (test ywjl=062) CALCIUM (BEAKER) (test 8.2 mg/dL 8.4-10.2 xznh=504) EGFR (BEAKER) (test 94 mL/min/1.73 sq m ESTIMATED GFR IS NOT etkb=1678) ACCURATE CREATININE CLEARANCE IN PREDICTING GLOMERULAR FILTRATION RATE. ESTIMATED GFR IS NOT APPLICABLE FOR DIALYSIS PATIENTS. CBC W/PLT COUNT & AUTO [id number] 03:09:00 Test Item Value Reference Range Comments WHITE BLOOD CELL COUNT (BEAKER) (test poqg=096) 7.0 K/ L 3.5-10.5 RED BLOOD CELL COUNT (BEAKER) (test hygy=343) 3.14 M/ L 4.63-6.08 HEMOGLOBIN (BEAKER) (test ligt=283) 9.1 GM/DL 13.7-17.5 HEMATOCRIT (BEAKER) (test yedo=913) 29.1 % 40.1-51.0 MEAN CORPUSCULAR VOLUME (BEAKER) (test ynbv=517) 92.7 fL 79.0-92.2 MEAN CORPUSCULAR HEMOGLOBIN (BEAKER) (test 29.0 pg 25.7-32.2 ngrg=524) MEAN CORPUSCULAR HEMOGLOBIN CONC (BEAKER) (test 31.3 GM/DL 32.3-36.5 badj=974) RED CELL DISTRIBUTION WIDTH (BEAKER) (test 14.6 % 11.6-14.4 ftsd=750) PLATELET COUNT (BEAKER) (test efei=340) 339 K/CU MM 150-450 MEAN PLATELET VOLUME (BEAKER) (test rbzf=336) 10.3 fL 9.4-12.4 NUCLEATED RED BLOOD CELLS (BEAKER) (test 0 /100 WBC 0-0 jvdp=288) NEUTROPHILS RELATIVE PERCENT (BEAKER) (test 77 % pxuu=950) LYMPHOCYTES RELATIVE PERCENT (BEAKER) (test 10 % pefc=989) MONOCYTES RELATIVE PERCENT (BEAKER) (test 9 % bfmn=834) EOSINOPHILS RELATIVE PERCENT (BEAKER) (test 3 % wtld=758) BASOPHILS RELATIVE PERCENT (BEAKER) (test 0 % snno=744) NEUTROPHILS ABSOLUTE COUNT (BEAKER) (test 5.41 K/ L 1.78-5.38 wovj=801) LYMPHOCYTES ABSOLUTE COUNT (BEAKER) (test 0.71 K/ L 1.32-3.57 auvx=865) MONOCYTES ABSOLUTE COUNT (BEAKER) (test 0.59 K/ L 0.30-0.82 lipa=715) EOSINOPHILS ABSOLUTE COUNT (BEAKER) (test 0.20 K/ L 0.04-0.54 bavf=823) BASOPHILS ABSOLUTE COUNT (BEAKER) (test 0.02 K/ L 0.01-0.08 lxzq=060) IMMATURE GRANULOCYTES-RELATIVE PERCENT (BEAKER) 1 % 0-1 (test eqee=0367) POCT-GLUCOSE [id number] 17:14:00 Test Item Value Reference Range Comments POC-GLUCOSE METER (BEAKER) 169 mg/dL 70-110 TESTED AT [address] (test orug=1006) [place] [id number] POCT-GLUCOSE [id number] 11:21:00 Test Item Value Reference Range Comments POC-GLUCOSE METER (BEAKER) 190 mg/dL 70-110 TESTED AT [address] (test edpn=6273) [place] [id number] POCT-GLUCOSE [id number] 08:18:00 Test Item Value Reference Range Comments POC-GLUCOSE METER (BEAKER) 216 mg/dL 70-110 TESTED AT [address] (test ziat=0938) [place] [id number] POCT-GLUCOSE [id number] 07:59:00 Test Item Value Reference Range Comments POC-GLUCOSE METER (BEAKER) 119 mg/dL 70-110 TESTED AT [address] (test ibhx=4693) [place] [id number] POCT-GLUCOSE [id number] 07:59:00 Test Item Value Reference Range Comments POC-GLUCOSE METER (BEAKER) 117 mg/dL 70-110 TESTED AT [address] (test mado=5747) [place] [id number] RAD, CHEST, 1 VIEW, NON [id number] 05:04:00Reason for exam:-> IntubatedShould this be performed [...] MDReport Verified Date/Time: 02/09/2017 05:04:45 Reading Location: [facility] C013Y CT Body Reading Room CALCIUM, [id number] 04:43:00 Test Item Value Reference Range Comments CALCIUM IONIZED (BEAKER) (test tcpb=326) 1.06 mmol/L 1.12-1.27 PH, BLOOD (BEAKER) (test fcoh=8392) 7.50 [id number] 04:24:00 Test Item Value Reference Range Comments PHOSPHORUS (BEAKER) (test oofs=303) 2.3 mg/dL 2.3-4.7 [id number] 04:24:00 Test Item Value Reference Range Comments MAGNESIUM (BEAKER) (test zfby=860) 2.1 mg/dL 1.6-2.6 BASIC METABOLIC [id number] 04:24:00 Test Item Value Reference Range Comments SODIUM (BEAKER) (test 148 meq/L 136-145 nmjd=327) POTASSIUM (BEAKER) (test 4.4 meq/L 3.5-5.1 lnjq=516) CHLORIDE (BEAKER) (test 117 meq/L 98-107 xiiq=824) CO2 (BEAKER) (test 23 meq/L 22-29 onei=148) BLOOD UREA NITROGEN 26 mg/dL 7-21 (BEAKER) (test ojre=829) CREATININE (BEAKER) (test 0.82 mg/dL 0.57-1.25 dpcx=967) GLUCOSE RANDOM (BEAKER) 137 mg/dL 70-105 (test etsm=520) CALCIUM (BEAKER) (test 8.0 mg/dL 8.4-10.2 pyju=612) EGFR (BEAKER) (test 96 mL/min/1.73 sq m ESTIMATED GFR IS NOT ucbg=1850) ACCURATE CREATININE CLEARANCE IN PREDICTING GLOMERULAR FILTRATION RATE. ESTIMATED GFR IS NOT APPLICABLE FOR DIALYSIS PATIENTS. CBC W/PLT COUNT & AUTO [id number] 04:12:00 Test Item Value Reference Range Comments WHITE BLOOD CELL COUNT (BEAKER) (test lkgv=829) 7.7 K/ L 3.5-10.5 RED BLOOD CELL COUNT (BEAKER) (test rxhq=337) 3.21 M/ L 4.63-6.08 HEMOGLOBIN (BEAKER) (test nmrj=099) 9.4 GM/DL 13.7-17.5 HEMATOCRIT (BEAKER) (test orib=238) 30.0 % 40.1-51.0 MEAN CORPUSCULAR VOLUME (BEAKER) (test flpf=906) 93.5 fL 79.0-92.2 MEAN CORPUSCULAR HEMOGLOBIN (BEAKER) (test 29.3 pg 25.7-32.2 lnfi=396) MEAN CORPUSCULAR HEMOGLOBIN CONC (BEAKER) (test 31.3 GM/DL 32.3-36.5 kidc=346) RED CELL DISTRIBUTION WIDTH (BEAKER) (test 14.8 % 11.6-14.4 iuyr=281) PLATELET COUNT (BEAKER) (test rwtn=845) 385 K/CU MM 150-450 MEAN PLATELET VOLUME (BEAKER) (test ezai=041) 10.2 fL 9.4-12.4 NUCLEATED RED BLOOD CELLS (BEAKER) (test 0 /100 WBC 0-0 ckyr=636) NEUTROPHILS RELATIVE PERCENT (BEAKER) (test 76 % nuku=072) LYMPHOCYTES RELATIVE PERCENT (BEAKER) (test 11 % uhzx=157) MONOCYTES RELATIVE PERCENT (BEAKER) (test 9 % uvgj=937) EOSINOPHILS RELATIVE PERCENT (BEAKER) (test 3 % dqho=099) BASOPHILS RELATIVE PERCENT (BEAKER) (test 0 % abrj=998) NEUTROPHILS ABSOLUTE COUNT (BEAKER) (test 5.89 K/ L 1.78-5.38 pypc=799) LYMPHOCYTES ABSOLUTE COUNT (BEAKER) (test 0.83 K/ L 1.32-3.57 ubtz=885) MONOCYTES ABSOLUTE COUNT (BEAKER) (test 0.70 K/ L 0.30-0.82 gjuw=308) EOSINOPHILS ABSOLUTE COUNT (BEAKER) (test 0.23 K/ L 0.04-0.54 ugkr=713) BASOPHILS ABSOLUTE COUNT (BEAKER) (test 0.01 K/ L 0.01-0.08 izct=143) IMMATURE GRANULOCYTES-RELATIVE PERCENT (BEAKER) 1 % 0-1 (test tbdj=1327) PROTHROMBIN [id number] 04:06:00 Test Item Value Reference Range Comments PROTIME (BEAKER) (test yflt=258) 17.1 seconds 11.7-14.7 INR (BEAKER) (test bqtw=310) 1.4 <=5.9 RECOMMENDED COUMADIN/WARFARIN INR THERAPY RANGESSTANDARD DOSE: 2.0 - 3.0 Includes: PROPHYLAXIS forvenous thrombosis, systemic embolization; TREATMENT for venous thrombosis and/or pulmonary embolus.HIGH RISK: Target INR is 2.5-3.5 for patients with mechanical heart valves.POCT-GLUCOSE [id number] 03:44:00 Test Item Value Reference Range Comments POC-GLUCOSE METER (BEAKER) 136 mg/dL 70-110 TESTED AT [address] (test yqtl=1674) [place] [id number] POCT-GLUCOSE [id number] 20:12:00 Test Item Value Reference Range Comments POC-GLUCOSE METER (BEAKER) 127 mg/dL 70-110 TESTED AT [address] (test fagr=7980) [place] [id number] POCT-GLUCOSE [id number] 17:44:00 Test Item Value Reference Range Comments POC-GLUCOSE METER (BEAKER) 128 mg/dL 70-110 TESTED AT [address] (test rsdu=5377) [place] [id number] POCT-GLUCOSE [id number] 12:19:00 Test Item Value Reference Range Comments POC-GLUCOSE METER (BEAKER) 175 mg/dL 70-110 TESTED AT [address] (test ubpp=1555) [place] [id number] POCT-GLUCOSE [id number] 12:18:00 Test Item Value Reference Range Comments POC-GLUCOSE METER (BEAKER) 150 mg/dL 70-110 TESTED AT [address] (test jcnf=1420) [facility] [address] OCCULT BLOOD, [id number] 08:45:00 Test Item Value Reference Range Comments FECAL OCCULT BLOOD (BEAKER) (test cbtx=275) Negative Negative CALCIUM, [id number] 05:59:00 Test Item Value Reference Range Comments CALCIUM IONIZED (BEAKER) (test uasz=069) 1.11 mmol/L 1.12-1.27 PH, BLOOD (BEAKER) (test urzh=7053) 7.49 POCT-GLUCOSE [id number] 05:53:00 Test Item Value Reference Range Comments POC-GLUCOSE METER (BEAKER) 137 mg/dL 70-110 TESTED AT [facility] [address] [facility] (test rrrs=4285) [facility] [address] URINALYSIS W/ [id number] 05:36:00 Test Item Value Reference Range Comments COLOR (BEAKER) (test tbbo=384) Yellow CLARITY (BEAKER) (test slxv=256) Clear SPECIFIC GRAVITY UA (BEAKER) (test avol=007) 1.016 1.001-1.035 PH UA (BEAKER) (test obfh=086) 6.5 5.0-8.0 PROTEIN UA (BEAKER) (test cxhl=179) 50 mg/dL Negative GLUCOSE UA (BEAKER) (test yobw=502) Negative Negative KETONES UA (BEAKER) (test umjl=116) Negative Negative BILIRUBIN UA (BEAKER) (test ktoy=809) Negative Negative BLOOD UA (BEAKER) (test qyhc=157) Moderate Negative NITRITE UA (BEAKER) (test cupe=950) Negative Negative LEUKOCYTE ESTERASE UA (BEAKER) (test twqp=387) Negative Negative UROBILINOGEN UA (BEAKER) (test fade=111) 0.2 mg/dL 0.2-1.0 RBC UA (BEAKER) (test eadf=057) 2 /HPF WBC UA (BEAKER) (test wluy=056) < /HPF SQUAMOUS EPITHELIAL (BEAKER) (test rxxd=313) < /HPF AMORPHOUS CRYSTALS (BEAKER) (test qbgc=1868) Occasional SOURCE(BEAKER) (test gfbr=9729) Urine, Malhotra RAD, CHEST, 1 VIEW, NON [id number] 04:44:00Reason for exam:-> IntubatedShould this be performed [...] MDReport Verified Date/Time: 02/08/2017 04:44:14 Reading Location: [address] Reading Room [id number] 04:36:00 Test Item Value Reference Range Comments PHOSPHORUS (BEAKER) (test eukc=330) 2.2 mg/dL 2.3-4.7 [id number] 04:36:00 Test Item Value Reference Range Comments MAGNESIUM (BEAKER) (test zzkl=029) 2.2 mg/dL 1.6-2.6 BASIC METABOLIC [id number] 04:36:00 Test Item Value Reference Range Comments SODIUM (BEAKER) (test 148 meq/L 136-145 xwgb=039) POTASSIUM (BEAKER) (test 4.4 meq/L 3.5-5.1 ynde=264) CHLORIDE (BEAKER) (test 117 meq/L 98-107 svts=337) CO2 (BEAKER) (test 24 meq/L 22-29 cibc=861) BLOOD UREA NITROGEN 28 mg/dL 7-21 (BEAKER) (test chkn=007) CREATININE (BEAKER) (test 0.84 mg/dL 0.57-1.25 vqmx=676) GLUCOSE RANDOM (BEAKER) 139 mg/dL 70-105 (test nncj=115) CALCIUM (BEAKER) (test 7.9 mg/dL 8.4-10.2 bkkf=555) EGFR (BEAKER) (test 94 mL/min/1.73 sq m ESTIMATED GFR IS NOT fvyl=4860) ACCURATE CREATININE CLEARANCE IN PREDICTING GLOMERULAR FILTRATION RATE. ESTIMATED GFR IS NOT APPLICABLE FOR DIALYSIS PATIENTS. PROTHROMBIN [id number] 04:10:00 Test Item Value Reference Range Comments PROTIME (BEAKER) (test wtjc=043) 15.7 seconds 11.7-14.7 INR (BEAKER) (test urdp=630) 1.3 <=5.9 RECOMMENDED COUMADIN/WARFARIN INR THERAPY RANGESSTANDARD DOSE: 2.0 - 3.0 Includes: PROPHYLAXIS forvenous thrombosis, systemic embolization; TREATMENT for venous thrombosis and/or pulmonary embolus.HIGH RISK: Target INR is 2.5-3.5 for patients with mechanical heart valves.CBC W/PLT COUNT & AUTO [id number] 04:01:00 Test Item Value Reference Range Comments WHITE BLOOD CELL COUNT (BEAKER) (test zzxf=394) 8.9 K/ L 3.5-10.5 RED BLOOD CELL COUNT (BEAKER) (test eznw=953) 3.26 M/ L 4.63-6.08 HEMOGLOBIN (BEAKER) (test vkai=144) 9.4 GM/DL 13.7-17.5 HEMATOCRIT (BEAKER) (test hbin=552) 30.5 % 40.1-51.0 MEAN CORPUSCULAR VOLUME (BEAKER) (test xizg=257) 93.6 fL 79.0-92.2 MEAN CORPUSCULAR HEMOGLOBIN (BEAKER) (test 28.8 pg 25.7-32.2 inid=618) MEAN CORPUSCULAR HEMOGLOBIN CONC (BEAKER) (test 30.8 GM/DL 32.3-36.5 rrbm=500) RED CELL DISTRIBUTION WIDTH (BEAKER) (test 15.0 % 11.6-14.4 chlx=624) PLATELET COUNT (BEAKER) (test josu=128) 387 K/CU MM 150-450 MEAN PLATELET VOLUME (BEAKER) (test nwyl=711) 10.5 fL 9.4-12.4 NUCLEATED RED BLOOD CELLS (BEAKER) (test 0 /100 WBC 0-0 mvvd=902) NEUTROPHILS RELATIVE PERCENT (BEAKER) (test 79 % ramo=261) LYMPHOCYTES RELATIVE PERCENT (BEAKER) (test 10 % pvkk=296) MONOCYTES RELATIVE PERCENT (BEAKER) (test 8 % pxan=517) EOSINOPHILS RELATIVE PERCENT (BEAKER) (test 2 % jstz=590) BASOPHILS RELATIVE PERCENT (BEAKER) (test 0 % qxoj=590) NEUTROPHILS ABSOLUTE COUNT (BEAKER) (test 6.97 K/ L 1.78-5.38 rnbn=046) LYMPHOCYTES ABSOLUTE COUNT (BEAKER) (test 0.89 K/ L 1.32-3.57 lshh=685) MONOCYTES ABSOLUTE COUNT (BEAKER) (test 0.71 K/ L 0.30-0.82 kvfs=491) EOSINOPHILS ABSOLUTE COUNT (BEAKER) (test 0.21 K/ L 0.04-0.54 luso=021) BASOPHILS ABSOLUTE COUNT (BEAKER) (test 0.03 K/ L 0.01-0.08 uryt=550) IMMATURE GRANULOCYTES-RELATIVE PERCENT (BEAKER) 1 % 0-1 (test tahe=6711) POCT-GLUCOSE [id number] 00:10:00 Test Item Value Reference Range Comments POC-GLUCOSE METER (BEAKER) 140 mg/dL 70-110 TESTED AT [address] (test kgwv=4163) [place] [address] OCCULT BLOOD, [id number] 22:02:00 Test Item Value Reference Range Comments FECAL OCCULT BLOOD (BEAKER) (test vads=982) Positive Negative POCT-GLUCOSE [id number] 21:32:00 Test Item Value Reference Range Comments POC-GLUCOSE METER (BEAKER) 124 mg/dL 70-110 TESTED AT [address] (test wjwk=1655) [place] [address] BLOOD [id number] 17:00:00 Test Item Value Reference Range Comments CULTURE (BEAKER) (test imij=8689) No growth in 5 days BLOOD [id number] 17:00:00 Test Item Value Reference Range Comments CULTURE (BEAKER) (test tbjh=6346) No growth in 5 days POCT-GLUCOSE [id number] 16:03:00 Test Item Value Reference Range Comments POC-GLUCOSE METER (BEAKER) 163 mg/dL 70-110 TESTED AT [address] (test bore=8167) [place] [id number] POCT-GLUCOSE [id number] 12:20:00 Test Item Value Reference Range Comments POC-GLUCOSE METER (BEAKER) 274 mg/dL 70-110 TESTED AT [address] (test npcw=9170) [place] [id number] POCT-GLUCOSE [id number] 10:37:00 Test Item Value Reference Range Comments POC-GLUCOSE METER (BEAKER) 249 mg/dL 70-110 TESTED AT [address] (test atbf=6617) [place] [id number] CALCIUM, [id number] 05:51:00 Test Item Value Reference Range Comments CALCIUM IONIZED (BEAKER) (test xzrf=823) 1.04 mmol/L 1.12-1.27 PH, BLOOD (BEAKER) (test naji=6232) 7.45 POCT-GLUCOSE [id number] 05:38:00 Test Item Value Reference Range Comments POC-GLUCOSE METER (BEAKER) 205 mg/dL 70-110 TESTED AT [facility] [address] [facility] (test mfha=5491) [facility] [address] BASIC METABOLIC [id number] 05:14:00 Test Item Value Reference Range Comments SODIUM (BEAKER) (test 149 meq/L 136-145 sgbz=773) POTASSIUM (BEAKER) (test 4.3 meq/L 3.5-5.1 izhk=677) CHLORIDE (BEAKER) (test 118 meq/L 98-107 ldzv=948) CO2 (BEAKER) (test 24 meq/L 22-29 rjdz=764) BLOOD UREA NITROGEN 33 mg/dL 7-21 (BEAKER) (test vvkn=027) CREATININE (BEAKER) (test 1.02 mg/dL 0.57-1.25 nkee=869) GLUCOSE RANDOM (BEAKER) 233 mg/dL 70-105 (test dijs=243) CALCIUM (BEAKER) (test 7.7 mg/dL 8.4-10.2 hicy=123) EGFR (BEAKER) (test 75 mL/min/1.73 sq m ESTIMATED GFR IS NOT olxk=0359) ACCURATE CREATININE CLEARANCE IN PREDICTING GLOMERULAR FILTRATION RATE. ESTIMATED GFR IS NOT APPLICABLE FOR DIALYSIS PATIENTS. [id number] 05:13:00 Test Item Value Reference Range Comments PHOSPHORUS (BEAKER) (test wpqr=287) 2.2 mg/dL 2.3-4.7 [id number] 05:13:00 Test Item Value Reference Range Comments MAGNESIUM (BEAKER) (test lwlt=199) 2.2 mg/dL 1.6-2.6 PROTHROMBIN [id number] 04:29:00 Test Item Value Reference Range Comments PROTIME (BEAKER) (test dknc=202) 16.6 seconds 11.7-14.7 INR (BEAKER) (test yosu=843) 1.3 <=5.9 RECOMMENDED COUMADIN/WARFARIN INR THERAPY RANGESSTANDARD DOSE: 2.0 - 3.0 Includes: PROPHYLAXIS forvenous thrombosis, systemic embolization; TREATMENT for venous thrombosis and/or pulmonary embolus.HIGH RISK: Target INR is 2.5-3.5 for patients with mechanical heart valves.CBC W/PLT COUNT & AUTO [id number] 04:28:00 Test Item Value Reference Range Comments WHITE BLOOD CELL COUNT (BEAKER) (test glee=937) 9.6 K/ L 3.5-10.5 RED BLOOD CELL COUNT (BEAKER) (test bcbs=334) 3.12 M/ L 4.63-6.08 HEMOGLOBIN (BEAKER) (test klqv=822) 9.2 GM/DL 13.7-17.5 HEMATOCRIT (BEAKER) (test zkny=505) 29.9 % 40.1-51.0 MEAN CORPUSCULAR VOLUME (BEAKER) (test oufq=698) 95.8 fL 79.0-92.2 MEAN CORPUSCULAR HEMOGLOBIN (BEAKER) (test 29.5 pg 25.7-32.2 cxja=936) MEAN CORPUSCULAR HEMOGLOBIN CONC (BEAKER) (test 30.8 GM/DL 32.3-36.5 ovlb=221) RED CELL DISTRIBUTION WIDTH (BEAKER) (test 15.2 % 11.6-14.4 izic=996) PLATELET COUNT (BEAKER) (test dbar=631) 376 K/CU MM 150-450 MEAN PLATELET VOLUME (BEAKER) (test flda=577) 10.7 fL 9.4-12.4 NUCLEATED RED BLOOD CELLS (BEAKER) (test 0 /100 WBC 0-0 nwhi=846) NEUTROPHILS RELATIVE PERCENT (BEAKER) (test 83 % hjcd=352) LYMPHOCYTES RELATIVE PERCENT (BEAKER) (test 7 % pono=292) MONOCYTES RELATIVE PERCENT (BEAKER) (test 6 % vtmr=894) EOSINOPHILS RELATIVE PERCENT (BEAKER) (test 3 % swba=863) BASOPHILS RELATIVE PERCENT (BEAKER) (test 0 % xkzk=503) NEUTROPHILS ABSOLUTE COUNT (BEAKER) (test 7.97 K/ L 1.78-5.38 zhyl=289) LYMPHOCYTES ABSOLUTE COUNT (BEAKER) (test 0.71 K/ L 1.32-3.57 lphx=641) MONOCYTES ABSOLUTE COUNT (BEAKER) (test 0.62 K/ L 0.30-0.82 xfla=348) EOSINOPHILS ABSOLUTE COUNT (BEAKER) (test 0.25 K/ L 0.04-0.54 ezwy=288) BASOPHILS ABSOLUTE COUNT (BEAKER) (test 0.03 K/ L 0.01-0.08 vyoy=900) IMMATURE GRANULOCYTES-RELATIVE PERCENT (BEAKER) 1 % 0-1 (test ktjf=5544) POCT-GLUCOSE [id number] 03:51:00 Test Item Value Reference Range Comments POC-GLUCOSE METER (BEAKER) 252 mg/dL 70-110 TESTED AT [address] (test jeqt=6619) [place] [address] POCT-GLUCOSE [id number] 03:51:00 Test Item Value Reference Range Comments POC-GLUCOSE METER (BEAKER) 215 mg/dL 70-110 TESTED AT [address] (test hdgz=4379) [place] [address] RAD, CHEST, 1 VIEW, NON [id number] 03:34:00Reason for exam:-> IntubatedShould this be performed at the bedside?->YesFINAL REPORT CLINICAL INDICATION: Support lines. Comparison: 02/06/2017 The cardiomediastinal contours are stable. The lung volumes remain low. Central pulmonary vascular congestion and bilateral parenchymal opacities are similar to previous. There is no pneumothorax. Support lines are stable. Signed: Nilesh Sheets Verified Date/Time: 02/07/2017 03:34:27 Reading Location: [address] Reading Room POCT-GLUCOSE [id number] 23:16:00 Test Item Value Reference Range Comments POC-GLUCOSE METER (BEAKER) 154 mg/dL 70-110 TESTED AT [address] (test phjx=9757) [place] [id number] POCT-GLUCOSE [id number] 21:33:00 Test Item Value Reference Range Comments POC-GLUCOSE METER (BEAKER) 96 mg/dL 70-110 TESTED AT [address] (test sglp=1978) [place] [address] POCT-GLUCOSE [id number] 20:08:00 Test Item Value Reference Range Comments POC-GLUCOSE METER (BEAKER) 113 mg/dL 70-110 TESTED AT [address] (test ahmo=6133) [facility] [address] POCT-GLUCOSE [id number] 18:24:00 Test Item Value Reference Range Comments POC-GLUCOSE METER (BEAKER) 107 mg/dL 70-110 TESTED AT [address] (test pzbc=6665) [facility] [address] POCT-GLUCOSE [id number] 17:20:00 Test Item Value Reference Range Comments POC-GLUCOSE METER (BEAKER) 84 mg/dL 70-110 TESTED AT [address] (test nrne=2989) [facility] [address] POCT-GLUCOSE [id number] 16:09:00 Test Item Value Reference Range Comments POC-GLUCOSE METER (BEAKER) 80 mg/dL 70-110 TESTED AT [address] (test zexk=9960) [facility] [address] POCT-GLUCOSE [id number] 15:13:00 Test Item Value Reference Range Comments POC-GLUCOSE METER (BEAKER) 85 mg/dL 70-110 TESTED AT [address] (test tfkq=9076) [facility] [address] POCT-GLUCOSE [id number] 13:10:00 Test Item Value Reference Range Comments POC-GLUCOSE METER (BEAKER) 132 mg/dL 70-110 TESTED AT [address] (test iqza=1227) [facility] [address] POCT-GLUCOSE [id number] 11:07:00 Test Item Value Reference Range Comments POC-GLUCOSE METER (BEAKER) 131 mg/dL 70-110 TESTED AT [address] (test jarb=6072) [facility] [address] POCT-GLUCOSE [id number] 11:07:00 Test Item Value Reference Range Comments POC-GLUCOSE METER (BEAKER) 95 mg/dL 70-110 TESTED AT [address] (test nykd=1117) [facility] [address] POCT-GLUCOSE [id number] 10:10:00 Test Item Value Reference Range Comments POC-GLUCOSE METER (BEAKER) 180 mg/dL 70-110 TESTED AT [address] (test ytby=6710) [facility] [address] POCT-GLUCOSE [id number] 07:08:00 Test Item Value Reference Range Comments POC-GLUCOSE METER (BEAKER) 129 mg/dL 70-110 TESTED AT [facility] [address] (test tgir=1118) [place] [address] CALCIUM, [id number] 05:12:00 Test Item Value Reference Range Comments CALCIUM IONIZED (BEAKER) (test usnz=855) 1.05 mmol/L 1.12-1.27 PH, BLOOD (BEAKER) (test ikmk=7874) 7.52 CBC W/PLT COUNT & AUTO [id number] 05:12:00 Test Item Value Reference Range Comments WHITE BLOOD CELL COUNT (BEAKER) (test ipuy=220) 10.6 K/ L 3.5-10.5 RED BLOOD CELL COUNT (BEAKER) (test grsj=285) 3.18 M/ L 4.63-6.08 HEMOGLOBIN (BEAKER) (test knxd=863) 9.4 GM/DL 13.7-17.5 HEMATOCRIT (BEAKER) (test syro=860) 30.5 % 40.1-51.0 MEAN CORPUSCULAR VOLUME (BEAKER) (test tzeh=860) 95.9 fL 79.0-92.2 MEAN CORPUSCULAR HEMOGLOBIN (BEAKER) (test 29.6 pg 25.7-32.2 chya=129) MEAN CORPUSCULAR HEMOGLOBIN CONC (BEAKER) (test 30.8 GM/DL 32.3-36.5 wxih=429) RED CELL DISTRIBUTION WIDTH (BEAKER) (test 15.0 % 11.6-14.4 cvth=311) PLATELET COUNT (BEAKER) (test uvdp=522) 425 K/CU MM 150-450 MEAN PLATELET VOLUME (BEAKER) (test rdyy=652) 10.8 fL 9.4-12.4 NUCLEATED RED BLOOD CELLS (BEAKER) (test 0 /100 WBC 0-0 gnvd=905) NEUTROPHILS RELATIVE PERCENT (BEAKER) (test 84 % xons=268) LYMPHOCYTES RELATIVE PERCENT (BEAKER) (test 7 % qtdw=631) MONOCYTES RELATIVE PERCENT (BEAKER) (test 6 % mobm=817) EOSINOPHILS RELATIVE PERCENT (BEAKER) (test 3 % lscy=809) BASOPHILS RELATIVE PERCENT (BEAKER) (test 0 % ymnv=486) NEUTROPHILS ABSOLUTE COUNT (BEAKER) (test 8.81 K/ L 1.78-5.38 qpof=386) LYMPHOCYTES ABSOLUTE COUNT (BEAKER) (test 0.69 K/ L 1.32-3.57 ytlv=509) MONOCYTES ABSOLUTE COUNT (BEAKER) (test 0.60 K/ L 0.30-0.82 ecks=179) EOSINOPHILS ABSOLUTE COUNT (BEAKER) (test 0.34 K/ L 0.04-0.54 xroq=588) BASOPHILS ABSOLUTE COUNT (BEAKER) (test 0.03 K/ L 0.01-0.08 kbdm=202) IMMATURE GRANULOCYTES-RELATIVE PERCENT (BEAKER) 1 % 0-1 (test wdjq=6108) BASIC METABOLIC [id number] 05:10:00 Test Item Value Reference Range Comments SODIUM (BEAKER) (test 149 meq/L 136-145 wnsy=586) POTASSIUM (BEAKER) (test 3.9 meq/L 3.5-5.1 tibu=522) CHLORIDE (BEAKER) (test 116 meq/L 98-107 hgye=901) CO2 (BEAKER) (test 26 meq/L 22-29 ewno=335) BLOOD UREA NITROGEN 35 mg/dL 7-21 (BEAKER) (test obdu=501) CREATININE (BEAKER) (test 0.92 mg/dL 0.57-1.25 xemy=445) GLUCOSE RANDOM (BEAKER) 111 mg/dL 70-105 (test djgt=345) CALCIUM (BEAKER) (test 7.7 mg/dL 8.4-10.2 xlpd=213) EGFR (BEAKER) (test 84 mL/min/1.73 sq m ESTIMATED GFR IS NOT prrk=9083) ACCURATE CREATININE CLEARANCE IN PREDICTING GLOMERULAR FILTRATION RATE. ESTIMATED GFR IS NOT APPLICABLE FOR DIALYSIS PATIENTS. [id number] 05:07:00 Test Item Value Reference Range Comments PHOSPHORUS (BEAKER) (test dhyk=522) 2.1 mg/dL 2.3-4.7 [id number] 05:07:00 Test Item Value Reference Range Comments MAGNESIUM (BEAKER) (test unoj=973) 2.2 mg/dL 1.6-2.6 [id number] 05:03:00 Test Item Value Reference Range Comments PARTIAL THROMBOPLASTIN TIME (BEAKER) (test 52.1 seconds 22.5-36.0 efzf=107) PROTHROMBIN TIME/[id number] 05:02:00 Test Item Value Reference Range Comments PROTIME (BEAKER) (test fitx=260) 16.6 seconds 11.7-14.7 INR (BEAKER) (test rctt=436) 1.4 <=5.9 RECOMMENDED COUMADIN/WARFARIN INR THERAPY RANGESSTANDARD DOSE: 2.0 - 3.0 Includes: PROPHYLAXIS forvenous thrombosis, systemic embolization; TREATMENT for venous thrombosis and/or pulmonary embolus.HIGH RISK: Target INR is 2.5-3.5 for patients with mechanical heart valves.POCT-GLUCOSE [id number] 04:10:00 Test Item Value Reference Range Comments POC-GLUCOSE METER (BEAKER) 112 mg/dL 70-110 TESTED AT [address] (test wfji=5253) [place] [address] RAD, CHEST, 1 VIEW, NON [id number] 03:41:00Reason for exam:-> IntubatedShould this be performed at the bedside?->YesFINAL REPORT CLINICAL INDICATION: Support lines. Comparison: 02/05/2017 The cardiomediastinal contours are stable. The lung volumes remain low. Central pulmonary vascular prominence and bilateral parenchymal opacities are unchanged. There is no pneumothorax. Support lines are stable. Signed: Nilesh Sheets Verified Date/Time: 02/06/2017 03:41:22 Reading Location: [address] Reading Room POCT-GLUCOSE [id number] 01:49:00 Test Item Value Reference Range Comments POC-GLUCOSE METER (BEAKER) 121 mg/dL 70-110 TESTED AT [address] (test uebp=1258) [place] [id number] POCT-GLUCOSE [id number] 00:40:00 Test Item Value Reference Range Comments POC-GLUCOSE METER (BEAKER) 119 mg/dL 70-110 TESTED AT [address] (test bxsu=1738) [place] [id number] POCT-GLUCOSE [id number] 23:53:00 Test Item Value Reference Range Comments POC-GLUCOSE METER (BEAKER) 131 mg/dL 70-110 TESTED AT [address] (test dzea=6097) [place] [id number] POCT-GLUCOSE [id number] 20:41:00 Test Item Value Reference Range Comments POC-GLUCOSE METER (BEAKER) 142 mg/dL 70-110 TESTED AT [address] (test wjpw=1856) [place] [id number] POCT-GLUCOSE [id number] 19:19:00 Test Item Value Reference Range Comments POC-GLUCOSE METER (BEAKER) 141 mg/dL 70-110 TESTED AT [address] (test xidv=1840) [place] [id number] POCT-GLUCOSE [id number] 17:42:00 Test Item Value Reference Range Comments POC-GLUCOSE METER (BEAKER) 134 mg/dL 70-110 TESTED AT [address] (test zepa=5248) [place] [id number] POCT-GLUCOSE [id number] 15:23:00 Test Item Value Reference Range Comments POC-GLUCOSE METER (BEAKER) 124 mg/dL 70-110 TESTED AT [address] (test hnas=3041) [place] [address] DIGOXIN [id number] 14:13:00 Test Item Value Reference Range Comments DIGOXIN LEVEL (BEAKER) (test xafq=701) 1.0 ng/mL 0.8-2.0 POCT-GLUCOSE [id number] 12:47:00 Test Item Value Reference Range Comments POC-GLUCOSE METER (BEAKER) 117 mg/dL 70-110 TESTED AT [address] (test mxue=8737) [place] [id number] POCT-GLUCOSE [id number] 10:16:00 Test Item Value Reference Range Comments POC-GLUCOSE METER (BEAKER) 114 mg/dL 70-110 TESTED AT [address] (test igku=3565) [place] [id number] POCT-GLUCOSE [id number] 08:04:00 Test Item Value Reference Range Comments POC-GLUCOSE METER (BEAKER) 111 mg/dL 70-110 TESTED AT [address] (test uaue=5615) [place] [id number] CALCIUM, [id number] 06:47:00 Test Item Value Reference Range Comments CALCIUM IONIZED (BEAKER) (test afhq=923) 1.06 mmol/L 1.12-1.27 PH, BLOOD (BEAKER) (test navh=4948) 7.51 POCT-GLUCOSE [id number] 06:34:00 Test Item Value Reference Range Comments POC-GLUCOSE METER (BEAKER) 147 mg/dL 70-110 TESTED AT [facility] [address] (test klnr=9800) [facility] [address] RAD, CHEST, 1 VIEW, NON [id number] 05:31:00Reason for exam:-> IntubatedShould this be performed [...] Atelectatic changes on the left with associated gracj-hl-mdstlpcf pleural effusion. Focal airspace disease noted in the right parahilar region. No pneumothorax.Heart and mediastinum: Mediastinal contours are partially obscured and suboptimally evaluated.Additional findings: None. Signed: JR Nguyen Robert MDReport Verified Date/Time: 02/05/2017 05:31:31 Reading Location: [address] Body Reading Room BASIC METABOLIC [id number] 05:17:00 Test Item Value Reference Range Comments SODIUM (BEAKER) (test 153 meq/L 136-145 ltyu=521) POTASSIUM (BEAKER) (test 3.7 meq/L 3.5-5.1 gzls=232) CHLORIDE (BEAKER) (test 117 meq/L 98-107 ilfz=376) CO2 (BEAKER) (test 29 meq/L 22-29 owyz=265) BLOOD UREA NITROGEN 36 mg/dL 7-21 (BEAKER) (test wnvi=193) CREATININE (BEAKER) (test 1.03 mg/dL 0.57-1.25 trol=374) GLUCOSE RANDOM (BEAKER) 141 mg/dL 70-105 (test zqfa=756) CALCIUM (BEAKER) (test 7.7 mg/dL 8.4-10.2 vzsc=413) EGFR (BEAKER) (test 74 mL/min/1.73 sq m ESTIMATED GFR IS NOT atxz=8770) ACCURATE CREATININE CLEARANCE IN PREDICTING GLOMERULAR FILTRATION RATE. ESTIMATED GFR IS NOT APPLICABLE FOR DIALYSIS PATIENTS. [id number] 04:54:00 Test Item Value Reference Range Comments PHOSPHORUS (BEAKER) (test aaur=465) 2.2 mg/dL 2.3-4.7 [id number] 04:54:00 Test Item Value Reference Range Comments MAGNESIUM (BEAKER) (test rpso=523) 2.5 mg/dL 1.6-2.6 [id number] 04:41:00 Test Item Value Reference Range Comments PARTIAL THROMBOPLASTIN TIME (BEAKER) (test 89.2 seconds 22.5-36.0 ewpu=498) PROTHROMBIN TIME/[id number] 04:39:00 Test Item Value Reference Range Comments PROTIME (BEAKER) (test qfgf=033) 16.8 seconds 11.7-14.7 INR (BEAKER) (test qhrv=560) 1.4 <=5.9 RECOMMENDED COUMADIN/WARFARIN INR THERAPY RANGESSTANDARD DOSE: 2.0 - 3.0 Includes: PROPHYLAXIS forvenous thrombosis, systemic embolization; TREATMENT for venous thrombosis and/or pulmonary embolus.HIGH RISK: Target INR is 2.5-3.5 for patients with mechanical heart valves.CBC W/PLT COUNT & AUTO [id number] 04:35:00 Test Item Value Reference Range Comments WHITE BLOOD CELL COUNT (BEAKER) (test rujt=376) 14.8 K/ L 3.5-10.5 RED BLOOD CELL COUNT (BEAKER) (test nken=629) 3.40 M/ L 4.63-6.08 HEMOGLOBIN (BEAKER) (test hlkz=068) 9.8 GM/DL 13.7-17.5 HEMATOCRIT (BEAKER) (test gbez=486) 32.5 % 40.1-51.0 MEAN CORPUSCULAR VOLUME (BEAKER) (test pyja=132) 95.6 fL 79.0-92.2 MEAN CORPUSCULAR HEMOGLOBIN (BEAKER) (test 28.8 pg 25.7-32.2 ndpu=996) MEAN CORPUSCULAR HEMOGLOBIN CONC (BEAKER) (test 30.2 GM/DL 32.3-36.5 dqyu=194) RED CELL DISTRIBUTION WIDTH (BEAKER) (test 15.1 % 11.6-14.4 gllg=020) PLATELET COUNT (BEAKER) (test borb=633) 443 K/CU MM 150-450 MEAN PLATELET VOLUME (BEAKER) (test gwja=239) 10.7 fL 9.4-12.4 NUCLEATED RED BLOOD CELLS (BEAKER) (test 0 /100 WBC 0-0 xphf=409) NEUTROPHILS RELATIVE PERCENT (BEAKER) (test 88 % ybjt=326) LYMPHOCYTES RELATIVE PERCENT (BEAKER) (test 6 % ghri=799) MONOCYTES RELATIVE PERCENT (BEAKER) (test 4 % zkng=302) EOSINOPHILS RELATIVE PERCENT (BEAKER) (test 2 % wnem=447) BASOPHILS RELATIVE PERCENT (BEAKER) (test 0 % amcr=060) NEUTROPHILS ABSOLUTE COUNT (BEAKER) (test 12.99 K/ L 1.78-5.38 eckf=613) LYMPHOCYTES ABSOLUTE COUNT (BEAKER) (test 0.81 K/ L 1.32-3.57 ismh=079) MONOCYTES ABSOLUTE COUNT (BEAKER) (test 0.60 K/ L 0.30-0.82 mpgg=618) EOSINOPHILS ABSOLUTE COUNT (BEAKER) (test 0.24 K/ L 0.04-0.54 cmae=486) BASOPHILS ABSOLUTE COUNT (BEAKER) (test 0.03 K/ L 0.01-0.08 tnho=317) IMMATURE GRANULOCYTES-RELATIVE PERCENT (BEAKER) 1 % 0-1 (test ihmo=1022) U/S, ABDOMINAL, [id number] 04:24:00Abdomen limited area? Add comment if clarification [...] MDReport Verified Date/Time: 02/05/2017 04:24:48 Reading Location: [facility] [id number] Body Reading Room POCT-GLUCOSE [id number] 04:08:00 Test Item Value Reference Range Comments POC-GLUCOSE METER (BEAKER) 139 mg/dL 70-110 TESTED AT [address] (test acpk=5842) [facility] [address] POCT-GLUCOSE [id number] 02:15:00 Test Item Value Reference Range Comments POC-GLUCOSE METER (BEAKER) 140 mg/dL 70-110 TESTED AT [address] (test bemf=9645) [facility] [address] POCT-GLUCOSE [id number] 00:41:00 Test Item Value Reference Range Comments POC-GLUCOSE METER (BEAKER) 135 mg/dL 70-110 TESTED AT [address] (test stht=3596) [facility] [address] POCT-GLUCOSE [id number] 23:22:00 Test Item Value Reference Range Comments POC-GLUCOSE METER (BEAKER) 145 mg/dL 70-110 TESTED AT [address] (test qkbk=9682) [facility] [address] POCT-GLUCOSE [id number] 21:46:00 Test Item Value Reference Range Comments POC-GLUCOSE METER (BEAKER) 174 mg/dL 70-110 TESTED AT [address] (test aqfi=1255) [facility] [address] POCT-GLUCOSE [id number] 19:07:00 Test Item Value Reference Range Comments POC-GLUCOSE METER (BEAKER) 137 mg/dL 70-110 TESTED AT [address] (test ryxt=2804) [facility] [address] POCT-GLUCOSE [id number] 17:59:00 Test Item Value Reference Range Comments POC-GLUCOSE METER (BEAKER) 147 mg/dL 70-110 TESTED AT [address] (test luxe=3508) [facility] [address] POCT-GLUCOSE [id number] 17:05:00 Test Item Value Reference Range Comments POC-GLUCOSE METER (BEAKER) 117 mg/dL 70-110 TESTED AT [address] (test xumz=2805) [facility] [address] BLOOD [id number] 17:00:00 Test Item Value Reference Range Comments CULTURE (BEAKER) (test bofk=2906) No growth in 5 days RAD, ABDOMEN/KUB, 1 VIEW [id number] 17:00:00Reason for exam:->corpak placementFINAL REPORT EXAM: AP [...] MDReport Verified Date/Time: 02/04/2017 17:00:34 Reading Location: [facility] Reading Room 05 :00 PMPOCT-GLUCOSE [id number] 16:02:00 Test Item Value Reference Range Comments POC-GLUCOSE METER (BEAKER) 140 mg/dL 70-110 TESTED AT [address] (test gfqu=4195) [facility] [address] POCT-GLUCOSE [id number] 14:44:00 Test Item Value Reference Range Comments POC-GLUCOSE METER (BEAKER) 147 mg/dL 70-110 TESTED AT [facility] [address] (test qfkp=2275) [place] [address] RAD, CHEST, 1 VIEW, NON [id number] 13:45:00Reason for exam:->ETT exchangedFINAL REPORT Chest one [...] Suspect a small left effusion. Signed: Mac Santamaria Verified Date/Time: 02/04/2017 13:45: 22 Reading Location: [address] Consult Reading Room EEG RECORDING IN COMA/SLEEP [id number] 13:28:00Reason for exam:->AMSShould this be performed at the bedside?->YesDATE OF EE02-04-2017 DATE OF REPORT: 02-04-2017 ACC: [id number] EE Start time: 11:17 Stop time: 11:38 ICD-10: R56.9 CPT Code: 55576 HISTORY: Encephalopathy, post rectal cancer surgery. MEDICATIONS THAT COULD AFFECT EEG: None TECHNICAL SUMMARY: This is a digital EEG recorded with 32 inputchannels on a [employer] system and then reviewed with bipolar and [...] MD Neurophysiology Fellow PGY5 Shad Jovel [facility] Neurophysiology/Epilepsy Attending Electronically signedby: SHAD JOVEL MD on 02/04/2017 01:28 PMPOCT-GLUCOSE [id number] 13:27:00 Test Item Value Reference Range Comments POC-GLUCOSE METER (BEAKER) 136 mg/dL 70-110 TESTED AT [address] (test aenw=8333) [facility] [address] POCT-GLUCOSE [id number] 12:48:00 Test Item Value Reference Range Comments POC-GLUCOSE METER (BEAKER) 88 mg/dL 70-110 TESTED AT [address] (test fpxs=3829) [facility] [address] POCT-GLUCOSE [id number] 12:46:00 Test Item Value Reference Range Comments POC-GLUCOSE METER (BEAKER) 94 mg/dL 70-110 TESTED AT [address] (test lgdl=6193) [facility] [address] POCT-GLUCOSE [id number] 11:07:00 Test Item Value Reference Range Comments POC-GLUCOSE METER (BEAKER) 140 mg/dL 70-110 TESTED AT [address] (test qjhj=6111) [facility] [address] POCT-GLUCOSE [id number] 10:24:00 Test Item Value Reference Range Comments POC-GLUCOSE METER (BEAKER) 154 mg/dL 70-110 TESTED AT [address] (test oleh=7320) [facility] [address] [id number] 09:22:00 Test Item Value Reference Range Comments PARTIAL THROMBOPLASTIN TIME (BEAKER) (test 71.1 seconds 22.5-36.0 zamg=547) CBC W/PLT COUNT & AUTO [id number] 09:08:00 Test Item Value Reference Range Comments WHITE BLOOD CELL COUNT (BEAKER) (test tmia=287) 19.9 K/ L 3.5-10.5 RED BLOOD CELL COUNT (BEAKER) (test lkcg=115) 3.56 M/ L 4.63-6.08 HEMOGLOBIN (BEAKER) (test uvfj=382) 10.4 GM/DL 13.7-17.5 HEMATOCRIT (BEAKER) (test ouzp=054) 34.5 % 40.1-51.0 MEAN CORPUSCULAR VOLUME (BEAKER) (test zwyk=536) 96.9 fL 79.0-92.2 MEAN CORPUSCULAR HEMOGLOBIN (BEAKER) (test 29.2 pg 25.7-32.2 dxwx=294) MEAN CORPUSCULAR HEMOGLOBIN CONC (BEAKER) (test 30.1 GM/DL 32.3-36.5 gpnw=626) RED CELL DISTRIBUTION WIDTH (BEAKER) (test 15.1 % 11.6-14.4 eoon=396) PLATELET COUNT (BEAKER) (test bkel=709) 499 K/CU MM 150-450 MEAN PLATELET VOLUME (BEAKER) (test sjfy=150) 10.6 fL 9.4-12.4 NUCLEATED RED BLOOD CELLS (BEAKER) (test 0 /100 WBC 0-0 gjko=893) NEUTROPHILS RELATIVE PERCENT (BEAKER) (test 90 % efwf=818) LYMPHOCYTES RELATIVE PERCENT (BEAKER) (test 4 % yrpy=674) MONOCYTES RELATIVE PERCENT (BEAKER) (test 4 % nujw=090) EOSINOPHILS RELATIVE PERCENT (BEAKER) (test 1 % idrh=513) BASOPHILS RELATIVE PERCENT (BEAKER) (test 0 % wpza=539) NEUTROPHILS ABSOLUTE COUNT (BEAKER) (test 17.95 K/ L 1.78-5.38 racg=257) LYMPHOCYTES ABSOLUTE COUNT (BEAKER) (test 0.80 K/ L 1.32-3.57 bzns=423) MONOCYTES ABSOLUTE COUNT (BEAKER) (test 0.78 K/ L 0.30-0.82 dzdh=505) EOSINOPHILS ABSOLUTE COUNT (BEAKER) (test 0.13 K/ L 0.04-0.54 paza=453) BASOPHILS ABSOLUTE COUNT (BEAKER) (test 0.03 K/ L 0.01-0.08 fghj=062) IMMATURE GRANULOCYTES-RELATIVE PERCENT (BEAKER) 1 % 0-1 (test txpy=0805) (MANUAL DIFFERENTIAL)2017-02-04 09:08:00 Test Item Value Reference Range Comments TOTAL COUNTED (BEAKER) (test ljlg=7479) WBC MORPHOLOGY (BEAKER) (test kpoc=385) Normal PLT MORPHOLOGY (AKER) (test woot=776) Normal RBC MORPHOLOGY (AKER) (test rjib=887) Normal POCT-GLUCOSE [id number] 09:02:00 Test Item Value Reference Range Comments POC-GLUCOSE METER (AKER) 282 mg/dL 70-110 TESTED AT [address] (test vpra=7438) [place] [address] CLOSTRIDIUM DIFFICILE TOXIN [id number] 08:47:00 Test Item Value Reference Range Comments CLOSTRIDIUM DIFFICILE TOXIN, PCR ([facility]) (test Not Detected Not Detected vkar=8671) This qualitative real-time polymerase chain reaction assay [...] of a positive result is not recommended.POCT-GLUCOSE [id number] 08:00:00 Test Item Value Reference Range Comments POC-GLUCOSE METER (AKER) 163 mg/dL 70-110 TESTED AT [address] (test vwhp=1732) [place] [address] [id number] 07:59:00 Test Item Value Reference Range Comments PARTIAL THROMBOPLASTIN TIME ([facility]) (test 101.8 seconds 22.5-36.0 mzvq=046) BLOOD [id number] 07:49:00 Test Item Value Reference Range Comments CULTURE ([facility]) (test cjlq=1699) Ampicillin (test code=26) Gentamicin High Level Synergy (test cskk=180) Linezolid (test code=40) Streptomycin High Level Synergy (test uaig=083) Vancomycin (test code=13) Daptomycin (test Susceptible 0-4 , No code=59) Interpretations Established <0 or >4 Penicillin G (test Susceptible 0-8 , code=3) Resistant <0 or >8 CULTURE (BEAKER) (test From Aerobic Bottle tkli=7714) Only Enterococcus faecalis GRAM STAIN RESULT From aerobic (BEAKER) (test bottle only: gram etyx=3800) positive cocci in pairs VANCOMYCIN-SUSCEPTIBLE ENTEROCOCCUS ([facility]) DETECTEDFirst line therapy: vancomycin or ampicillin (ampicillin only if confirmed susceptible)(Goldie/vanB not detected)Other organisms and resistance markers not contained in this PCR panel cannot be excluded and follow-up of traditional culture results is required. This sample was tested at the [facility] Clinical Microbiology Laboratory using the [employer] Blood Culture ID Panel. This test is FDA cleared for in vitro diagnostic use and has been verified and approved by the [facility] Clinical Microbiology laboratory for clinical use. Reference Range: Not [id number] 06:57:00 Test Item Value Reference Range Comments PHOSPHORUS (BEAKER) (test kueh=251) 2.3 mg/dL 2.3-4.7 [id number] 06:57:00 Test Item Value Reference Range Comments MAGNESIUM (BEAKER) (test rxai=447) 2.5 mg/dL 1.6-2.6 BASIC METABOLIC [id number] 06:57:00 Test Item Value Reference Range Comments SODIUM (BEAKER) (test 153 meq/L 136-145 etat=316) POTASSIUM (BEAKER) (test 3.8 meq/L 3.5-5.1 ukau=988) CHLORIDE (BEAKER) (test 117 meq/L 98-107 cizj=829) CO2 (BEAKER) (test 28 meq/L 22-29 hent=035) BLOOD UREA NITROGEN 39 mg/dL 7-21 (BEAKER) (test nsdl=760) CREATININE (BEAKER) (test 1.12 mg/dL 0.57-1.25 kqra=249) GLUCOSE RANDOM (BEAKER) 142 mg/dL 70-105 (test ztjh=105) CALCIUM (BEAKER) (test 7.6 mg/dL 8.4-10.2 gwoe=315) EGFR (BEAKER) (test 67 mL/min/1.73 sq m ESTIMATED GFR IS NOT nuvs=0096) ACCURATE CREATININE CLEARANCE IN PREDICTING GLOMERULAR FILTRATION RATE. ESTIMATED GFR IS NOT APPLICABLE FOR DIALYSIS PATIENTS. POCT-GLUCOSE [id number] 06:37:00 Test Item Value Reference Range Comments POC-GLUCOSE METER (BEAKER) 132 mg/dL 70-110 TESTED AT [address] (test qffx=8030) [place] [address] [id number] 06:30:00 Test Item Value Reference Range Comments AMMONIA (BEAKER) (test zgsb=723) 40 mol/L 18-72 CALCIUM, [id number] 06:23:00 Test Item Value Reference Range Comments CALCIUM IONIZED (BEAKER) (test mnam=288) 1.08 mmol/L 1.12-1.27 PH, BLOOD (BEAKER) (test gpks=3377) 7.53 PROTHROMBIN TIME/[id number] 06:01:00 Test Item Value Reference Range Comments PROTIME (BEAKER) (test cmpa=766) 16.4 seconds 11.7-14.7 INR (BEAKER) (test loax=990) 1.3 <=5.9 RECOMMENDED COUMADIN/WARFARIN INR THERAPY RANGESSTANDARD DOSE: 2.0 - 3.0 Includes: PROPHYLAXIS forvenous thrombosis, systemic embolization; TREATMENT for venous thrombosis and/or pulmonary embolus.HIGH RISK: Target INR is 2.5-3.5 for patients with mechanical heart valves.POCT-GLUCOSE [id number] 05:36:00 Test Item Value Reference Range Comments POC-GLUCOSE METER (BEAKER) 119 mg/dL 70-110 TESTED AT [address] (test gopd=2989) [place] [id number] POCT-GLUCOSE [id number] 04:27:00 Test Item Value Reference Range Comments POC-GLUCOSE METER (BEAKER) 126 mg/dL 70-110 TESTED AT [address] (test vzym=6849) [facility] [address] RAD, CHEST, 1 VIEW, NON [id number] 03:42:00Reason for exam:-> IntubatedShould this be performed [...] Signed: JR Nguyen Robert MDReport Verified Date/Time: 02/04/2017 03:42:53 Reading Location: [facility] C013Y CT Body Reading Room Electronically signedby: FERNANDO NGUYEN on 02/04/2017 03 :42 AMPOCT-GLUCOSE [id number] 03:10:00 Test Item Value Reference Range Comments POC-GLUCOSE METER (BEAKER) 174 mg/dL 70-110 TESTED AT [address] (test dfms=1884) [place] [address] BASIC METABOLIC [id number] 01:39:00 Test Item Value Reference Range Comments SODIUM (BEAKER) (test 155 meq/L 136-145 xgry=816) POTASSIUM (BEAKER) (test 3.8 meq/L 3.5-5.1 fism=659) CHLORIDE (BEAKER) (test 119 meq/L 98-107 bbwh=089) CO2 (BEAKER) (test 29 meq/L 22-29 xxjy=546) BLOOD UREA NITROGEN 39 mg/dL 7-21 (BEAKER) (test cmzp=927) CREATININE (BEAKER) (test 1.14 mg/dL 0.57-1.25 fxdc=644) GLUCOSE RANDOM (BEAKER) 187 mg/dL 70-105 (test mssm=688) CALCIUM (BEAKER) (test 7.5 mg/dL 8.4-10.2 uasm=306) EGFR (BEAKER) (test 66 mL/min/1.73 sq m ESTIMATED GFR IS NOT szau=8543) ACCURATE CREATININE CLEARANCE IN PREDICTING GLOMERULAR FILTRATION RATE. ESTIMATED GFR IS NOT APPLICABLE FOR DIALYSIS PATIENTS. POCT-GLUCOSE [id number] 01:17:00 Test Item Value Reference Range Comments POC-GLUCOSE METER (BEAKER) 152 mg/dL 70-110 TESTED AT [address] (test mfpf=4562) [place] [id number] POCT-GLUCOSE [id number] 00:25:00 Test Item Value Reference Range Comments POC-GLUCOSE METER (BEAKER) 159 mg/dL 70-110 TESTED AT [address] (test anpc=7635) [facility] [address] POCT-GLUCOSE [id number] 23:13:00 Test Item Value Reference Range Comments POC-GLUCOSE METER (BEAKER) 181 mg/dL 70-110 TESTED AT [address] (test ivfo=2059) [facility] [address] POCT-GLUCOSE [id number] 20:44:00 Test Item Value Reference Range Comments POC-GLUCOSE METER (BEAKER) 189 mg/dL 70-110 TESTED AT [address] (test uxvu=0205) [place] [id number] POCT-GLUCOSE [id number] 20:44:00 Test Item Value Reference Range Comments POC-GLUCOSE METER (BEAKER) 139 mg/dL 70-110 TESTED AT [address] (test kcjt=2583) [place] [id number] RAD, ABDOMEN/KUB, 1 VIEW [id number] 20:12:00Reason for exam:->dobhoff placement checkFINAL REPORT EXAMINATION: [...] the CT examination 01/31/2017. Signed: Zach Dowell [facility] Verified Date/Time: 02/03/2017 20:12:15 Reading Location : [facility] Radiology Reading Room POCT-GLUCOSE [id number] 18:50:00 Test Item Value Reference Range Comments POC-GLUCOSE METER (BEAKER) 102 mg/dL 70-110 TESTED AT [address] (test aykg=6041) [facility] [address] POCT-GLUCOSE [id number] 17:58:00 Test Item Value Reference Range Comments POC-GLUCOSE METER (BEAKER) 90 mg/dL 70-110 TESTED AT [address] (test qcbp=2960) [place] [address] RAD, ABDOMEN/KUB, 1 VIEW [id number] 17:25:00Reason for exam:->dobhoff tube placementFINAL REPORT EXAMINATION: [...] bowel gas pattern isnonspecific. Signed: Zach Dowell [facility] Verified Date/Time: 02/03/2017 17:25:39 Reading Location: [facility] Radiology Reading Room 05 :25 PMPOCT-GLUCOSE [id number] 17:16:00 Test Item Value Reference Range Comments POC-GLUCOSE METER (BEAKER) 116 mg/dL 70-110 TESTED AT [address] (test flrw=0424) [place] [address] [id number] 16:39:00 Test Item Value Reference Range Comments PARTIAL THROMBOPLASTIN TIME (BEAKER) (test 82.0 seconds 22.5-36.0 fwmm=943) POCT-GLUCOSE [id number] 16:04:00 Test Item Value Reference Range Comments POC-GLUCOSE METER (BEAKER) 126 mg/dL 70-110 TESTED AT [address] (test hhdr=4486) [place] [address] [id number] 15:26:00 Test Item Value Reference Range Comments AMMONIA (BEAKER) (test yqdb=759) 31 mol/L 18-72 POCT-GLUCOSE [id number] 15:12:00 Test Item Value Reference Range Comments POC-GLUCOSE METER (BEAKER) 142 mg/dL 70-110 TESTED AT [address] (test zqgc=1292) [place] [id number] POCT-GLUCOSE [id number] 15:12:00 Test Item Value Reference Range Comments POC-GLUCOSE METER (BEAKER) 151 mg/dL 70-110 TESTED AT [address] (test gesj=4614) [place] [id number] BASIC METABOLIC [id number] 15:05:00 Test Item Value Reference Range Comments SODIUM (BEAKER) (test 157 meq/L 136-145 utsu=758) POTASSIUM (BEAKER) (test 3.7 meq/L 3.5-5.1 utyn=494) CHLORIDE (BEAKER) (test 119 meq/L 98-107 tmvl=281) CO2 (BEAKER) (test 30 meq/L 22-29 zzqk=258) BLOOD UREA NITROGEN 39 mg/dL 7-21 (BEAKER) (test fisl=816) CREATININE (BEAKER) (test 1.11 mg/dL 0.57-1.25 itci=010) GLUCOSE RANDOM (BEAKER) 156 mg/dL 70-105 (test xyky=458) CALCIUM (BEAKER) (test 7.5 mg/dL 8.4-10.2 tkis=225) EGFR (BEAKER) (test 68 mL/min/1.73 sq m ESTIMATED GFR IS NOT mkeq=5963) ACCURATE CREATININE CLEARANCE IN PREDICTING GLOMERULAR FILTRATION RATE. ESTIMATED GFR IS NOT APPLICABLE FOR DIALYSIS PATIENTS. MR, BRAIN, WITHOUT [id number] 13:09:00Reason for exam:-> encephalopathyWhat is the patient's [...] hematoma or mass effect. Signed: Neris Greenberg MDReport Verified Date/Time: 11/2016 13:09:03 Reading Location: [facility] C013V Neuro Reading Room POCT- GLUCOSE [id number] 12:32:00 Test Item Value Reference Range Comments POC-GLUCOSE METER (BEAKER) 118 mg/dL 70-110 TESTED AT [address] (test avsu=0007) [facility] [address] [id number] 11:10:00 Test Item Value Reference Range Comments PARTIAL THROMBOPLASTIN TIME (BEAKER) (test 83.0 seconds 22.5-36.0 uuvz=385) POCT-GLUCOSE [id number] 10:28:00 Test Item Value Reference Range Comments POC-GLUCOSE METER (BEAKER) 109 mg/dL 70-110 TESTED AT [address] (test krqy=4689) [facility] [address] POCT-GLUCOSE [id number] 09:12:00 Test Item Value Reference Range Comments POC-GLUCOSE METER (BEAKER) 134 mg/dL 70-110 TESTED AT [address] (test gbla=6984) [facility] [address] POCT-GLUCOSE [id number] 08:14:00 Test Item Value Reference Range Comments POC-GLUCOSE METER (BEAKER) 131 mg/dL 70-110 TESTED AT [address] (test omyh=1627) [place] [id number] BASIC METABOLIC [id number] 07:43:00 Test Item Value Reference Range Comments SODIUM (BEAKER) (test 157 meq/L 136-145 dodg=833) POTASSIUM (BEAKER) (test 3.7 meq/L 3.5-5.1 cwua=726) CHLORIDE (BEAKER) (test 119 meq/L 98-107 bhbb=700) CO2 (BEAKER) (test 31 meq/L 22-29 zita=680) BLOOD UREA NITROGEN 42 mg/dL 7-21 (BEAKER) (test gexv=782) CREATININE (BEAKER) (test 1.21 mg/dL 0.57-1.25 nrmp=797) GLUCOSE RANDOM (BEAKER) 172 mg/dL 70-105 (test bhoz=378) CALCIUM (BEAKER) (test 7.7 mg/dL 8.4-10.2 edms=472) EGFR (BEAKER) (test 62 mL/min/1.73 sq m ESTIMATED GFR IS NOT uhwo=8852) ACCURATE CREATININE CLEARANCE IN PREDICTING GLOMERULAR FILTRATION RATE. ESTIMATED GFR IS NOT APPLICABLE FOR DIALYSIS PATIENTS. POCT-GLUCOSE [id number] 07:11:00 Test Item Value Reference Range Comments POC-GLUCOSE METER (BEAKER) 149 mg/dL 70-110 TESTED AT [address] (test prll=6590) [facility] [address] POCT-GLUCOSE [id number] 06:21:00 Test Item Value Reference Range Comments POC-GLUCOSE METER (BEAKER) 151 mg/dL 70-110 TESTED AT [address] (test wjax=9039) [facility] [address] POCT-GLUCOSE [id number] 05:15:00 Test Item Value Reference Range Comments POC-GLUCOSE METER (BEAKER) 206 mg/dL 70-110 TESTED AT [address] (test dbgp=4484) [facility] [address] RAD, CHEST, 1 VIEW, NON [id number] 04:38:00Reason for exam:-> IntubatedShould this be performed [...] correlation regarding fluid overload/heart failure. Signed: Zach Dowell MDReport Verified Date/Time: 02/03 04:38:28 Reading Location: [facility] Radiology Reading Room [id number] 04:17:00 Test Item Value Reference Range Comments PARTIAL THROMBOPLASTIN TIME (BEAKER) (test 86.9 seconds 22.5-36.0 sita=352) PROTHROMBIN [id number] 04:15:00 Test Item Value Reference Range Comments PROTIME (BEAKER) (test esvt=415) 18.2 seconds 11.7-14.7 INR (BEAKER) (test gvhq=528) 1.5 <=5.9 RECOMMENDED COUMADIN/WARFARIN INR THERAPY RANGESSTANDARD DOSE: 2.0 - 3.0 Includes: PROPHYLAXIS forvenous thrombosis, systemic embolization; TREATMENT for venous thrombosis and/or pulmonary embolus.HIGH RISK: Target INR is 2.5-3.5 for patients with mechanical heart valves.[id number] 04:04:00 Test Item Value Reference Range Comments PHOSPHORUS (BEAKER) (test mtnr=341) 2.3 mg/dL 2.3-4.7 [id number] 04:04:00 Test Item Value Reference Range Comments MAGNESIUM (BEAKER) (test lwtv=164) 2.6 mg/dL 1.6-2.6 COMPREHENSIVE METABOLIC [id number] 04:04:00 Test Item Value Reference Range Comments TOTAL PROTEIN (BEAKER) 5.5 gm/dL 6.0-8.3 (test yxeh=733) ALBUMIN (BEAKER) (test 2.3 g/dL 3.5-5.0 hapw=8252) ALKALINE PHOSPHATASE 109 U/L 40-150 (BEAKER) (test lctt=533) BILIRUBIN TOTAL (BEAKER) 0.3 mg/dL 0.2-1.2 (test mgwr=978) SODIUM (BEAKER) (test 159 meq/L 136-145 riug=154) POTASSIUM (BEAKER) (test 3.7 meq/L 3.5-5.1 hgzb=500) CHLORIDE (BEAKER) (test 120 meq/L 98-107 ycag=630) CO2 (BEAKER) (test 30 meq/L 22-29 ztxw=026) BLOOD UREA NITROGEN 43 mg/dL 7-21 (BEAKER) (test jdpa=745) CREATININE (BEAKER) (test 1.37 mg/dL 0.57-1.25 ikkm=457) GLUCOSE RANDOM (BEAKER) 271 mg/dL 70-105 (test nuhw=878) CALCIUM (BEAKER) (test 7.9 mg/dL 8.4-10.2 abab=577) AST (SGOT) (BEAKER) (test 22 U/L 5-34 cden=484) ALT (SGPT) (BEAKER) (test 12 U/L 6-55 puvz=984) EGFR (BEAKER) (test 53 mL/min/1.73 sq m ESTIMATED GFR IS NOT qrqy=0831) ACCURATE CREATININE CLEARANCE IN PREDICTING GLOMERULAR FILTRATION RATE. ESTIMATED GFR IS NOT APPLICABLE FOR DIALYSIS PATIENTS. POCT-GLUCOSE [id number] 04:03:00 Test Item Value Reference Range Comments POC-GLUCOSE METER (BEAKER) 221 mg/dL 70-110 TESTED AT [facility] [address] [facility] (test jrms=6100) [facility] [address] CBC W/PLT COUNT & AUTO [id number] 04:02:00 Test Item Value Reference Range Comments WHITE BLOOD CELL COUNT (BEAKER) (test ahff=304) 24.8 K/ L 3.5-10.5 RED BLOOD CELL COUNT (BEAKER) (test hcbd=805) 3.85 M/ L 4.63-6.08 HEMOGLOBIN (BEAKER) (test hkdp=243) 11.2 GM/DL 13.7-17.5 HEMATOCRIT (BEAKER) (test akzy=644) 37.4 % 40.1-51.0 MEAN CORPUSCULAR VOLUME (BEAKER) (test hyae=584) 97.1 fL 79.0-92.2 MEAN CORPUSCULAR HEMOGLOBIN (BEAKER) (test 29.1 pg 25.7-32.2 xroe=690) MEAN CORPUSCULAR HEMOGLOBIN CONC (BEAKER) (test 29.9 GM/DL 32.3-36.5 uqxw=032) RED CELL DISTRIBUTION WIDTH (BEAKER) (test 15.2 % 11.6-14.4 iqda=320) PLATELET COUNT (BEAKER) (test wega=230) 521 K/CU MM 150-450 MEAN PLATELET VOLUME (BEAKER) (test nptr=900) 10.7 fL 9.4-12.4 NUCLEATED RED BLOOD CELLS (BEAKER) (test 0 /100 WBC 0-0 uvcg=426) NEUTROPHILS RELATIVE PERCENT (BEAKER) (test 91 % mxwr=240) LYMPHOCYTES RELATIVE PERCENT (BEAKER) (test 4 % wdbt=290) MONOCYTES RELATIVE PERCENT (BEAKER) (test 3 % azxd=979) EOSINOPHILS RELATIVE PERCENT (BEAKER) (test 0 % llic=861) BASOPHILS RELATIVE PERCENT (BEAKER) (test 0 % agwe=582) NEUTROPHILS ABSOLUTE COUNT (BEAKER) (test 22.63 K/ L 1.78-5.38 drkb=262) LYMPHOCYTES ABSOLUTE COUNT (BEAKER) (test 0.95 K/ L 1.32-3.57 quua=596) MONOCYTES ABSOLUTE COUNT (BEAKER) (test 0.75 K/ L 0.30-0.82 iwxs=698) EOSINOPHILS ABSOLUTE COUNT (BEAKER) (test 0.03 K/ L 0.04-0.54 kxyk=552) BASOPHILS ABSOLUTE COUNT (BEAKER) (test 0.04 K/ L 0.01-0.08 qsdj=493) IMMATURE GRANULOCYTES-RELATIVE PERCENT (BEAKER) 2 % 0-1 (test orzo=7646) CALCIUM, [id number] 04:00:00 Test Item Value Reference Range Comments CALCIUM IONIZED (BEAKER) (test qvoh=454) 1.09 mmol/L 1.12-1.27 PH, BLOOD (BEAKER) (test lcux=4337) 7.50 POCT-GLUCOSE [id number] 03:18:00 Test Item Value Reference Range Comments POC-GLUCOSE METER (BEAKER) 251 mg/dL 70-110 TESTED AT [address] (test ixvm=3256) [facility] [address] POCT-GLUCOSE [id number] 03:18:00 Test Item Value Reference Range Comments POC-GLUCOSE METER (BEAKER) 232 mg/dL 70-110 TESTED AT [address] (test tqmo=8210) [facility] [address] POCT-GLUCOSE [id number] 01:18:00 Test Item Value Reference Range Comments POC-GLUCOSE METER (BEAKER) 198 mg/dL 70-110 TESTED AT [address] (test egcj=7377) [facility] [address] POCT-GLUCOSE [id number] 00:16:00 Test Item Value Reference Range Comments POC-GLUCOSE METER (BEAKER) 185 mg/dL 70-110 TESTED AT [address] (test rggy=6041) [place] [address] POCT-GLUCOSE [id number] 23:54:00 Test Item Value Reference Range Comments POC-GLUCOSE METER (BEAKER) 151 mg/dL 70-110 TESTED AT [address] (test pzev=6103) [place] [address] POCT-GLUCOSE [id number] 22:30:00 Test Item Value Reference Range Comments POC-GLUCOSE METER (BEAKER) 104 mg/dL 70-110 TESTED AT [address] (test zpfs=5379) [place] [address] POCT-GLUCOSE [id number] 21:37:00 Test Item Value Reference Range Comments POC-GLUCOSE METER (BEAKER) 86 mg/dL 70-110 TESTED AT [address] (test tsxn=2286) [place] [address] [id number] 20:40:00 Test Item Value Reference Range Comments PARTIAL THROMBOPLASTIN TIME (BEAKER) (test 64.8 seconds 22.5-36.0 auwr=789) POCT-GLUCOSE [id number] 20:09:00 Test Item Value Reference Range Comments POC-GLUCOSE METER (BEAKER) 119 mg/dL 70-110 TESTED AT [address] (test yrhs=1497) [place] [address] POCT-GLUCOSE [id number] 18:40:00 Test Item Value Reference Range Comments POC-GLUCOSE METER (BEAKER) 193 mg/dL 70-110 TESTED AT [address] (test zaxy=3014) [place] [address] POCT-GLUCOSE [id number] 17:36:00 Test Item Value Reference Range Comments POC-GLUCOSE METER (BEAKER) 180 mg/dL 70-110 TESTED AT [address] (test xoie=3544) [place] [address] POCT-GLUCOSE [id number] 16:25:00 Test Item Value Reference Range Comments POC-GLUCOSE METER (BEAKER) 217 mg/dL 70-110 TESTED AT [address] (test pyhc=8160) [place] [address] CT, LIMITED/LOCALIZED [id number] 15:47:00Reason for exam:->Pelvic fluid collectionFINAL REPORT Limited [...] MDReport Verified Date/Time: 02/02/2017 15:47:41 Reading Location: [facility] C013Y CT Body Reading Room POCT-GLUCOSE [id number] 15:24:00 Test Item Value Reference Range Comments POC-GLUCOSE METER (BEAKER) 247 mg/dL 70-110 TESTED AT [address] (test dbry=2167) [facility] [address] POCT-GLUCOSE [id number] 14:39:00 Test Item Value Reference Range Comments POC-GLUCOSE METER (BEAKER) 246 mg/dL 70-110 TESTED AT [address] (test txmr=1968) [facility] [address] POCT-GLUCOSE [id number] 14:39:00 Test Item Value Reference Range Comments POC-GLUCOSE METER (BEAKER) 230 mg/dL 70-110 TESTED AT [address] (test jktx=0800) [facility] [address] POCT-GLUCOSE [id number] 14:39:00 Test Item Value Reference Range Comments POC-GLUCOSE METER (BEAKER) 190 mg/dL 70-110 TESTED AT [address] (test bdjm=1737) [facility] [address] [id number] 14:02:00 Test Item Value Reference Range Comments PARTIAL THROMBOPLASTIN TIME (BEAKER) (test 44.2 seconds 22.5-36.0 uloq=220) URINALYSIS W/ REFLEX URINE [id number] 12:50:00 Test Item Value Reference Range Comments COLOR (BEAKER) (test woms=931) Yellow CLARITY (BEAKER) (test qnfh=268) Hazy SPECIFIC GRAVITY UA (BEAKER) (test rcpc=268) 1.022 1.001-1.035 PH UA (BEAKER) (test fybo=713) 5.0 5.0-8.0 PROTEIN UA (BEAKER) (test obzo=198) 20 mg/dL Negative GLUCOSE UA (BEAKER) (test qaro=441) Negative Negative KETONES UA (BEAKER) (test lwoj=112) Trace Negative BILIRUBIN UA (BEAKER) (test lexh=551) Negative Negative BLOOD UA (BEAKER) (test hilw=454) Trace Negative NITRITE UA (BEAKER) (test ogvu=460) Negative Negative LEUKOCYTE ESTERASE UA (BEAKER) (test wfek=533) Small Negative UROBILINOGEN UA (BEAKER) (test zayt=618) 0.2 mg/dL 0.2-1.0 RBC UA (BEAKER) (test hxfa=652) 9 /HPF WBC UA (BEAKER) (test vdjm=688) 35 /HPF MUCUS (BEAKER) (test yvud=8366) Few SQUAMOUS EPITHELIAL (BEAKER) (test lxui=364) < /HPF AMORPHOUS CRYSTALS (BEAKER) (test eqkk=3301) Moderate SOURCE(BEAKER) (test zpdq=9265) POCT-GLUCOSE [id number] 10:46:00 Test Item Value Reference Range Comments POC-GLUCOSE METER (BEAKER) 114 mg/dL 70-110 TESTED AT [address] (test hbml=2332) [facility] [address] POCT-GLUCOSE [id number] 10:46:00 Test Item Value Reference Range Comments POC-GLUCOSE METER (BEAKER) 83 mg/dL 70-110 TESTED AT [address] (test bath=9720) [facility] [address] POCT-GLUCOSE [id number] 09:28:00 Test Item Value Reference Range Comments POC-GLUCOSE METER (BEAKER) 100 mg/dL 70-110 TESTED AT [address] (test ujtj=0293) [place] [id number] POCT-GLUCOSE [id number] 08:23:00 Test Item Value Reference Range Comments POC-GLUCOSE METER (BEAKER) 107 mg/dL 70-110 TESTED AT [address] (test aqft=0278) [facility] [address] [id number] 07:15:00 Test Item Value Reference Range Comments PARTIAL THROMBOPLASTIN TIME (BEAKER) (test 89.8 seconds 22.5-36.0 cmvy=456) POCT-GLUCOSE [id number] 07:12:00 Test Item Value Reference Range Comments POC-GLUCOSE METER (BEAKER) 132 mg/dL 70-110 TESTED AT [address] (test deis=1518) [facility] [address] POCT-GLUCOSE [id number] 06:13:00 Test Item Value Reference Range Comments POC-GLUCOSE METER (BEAKER) 164 mg/dL 70-110 TESTED AT [address] (test hqzy=6617) [facility] [address] POCT-GLUCOSE [id number] 05:17:00 Test Item Value Reference Range Comments POC-GLUCOSE METER (BEAKER) 196 mg/dL 70-110 TESTED AT [address] (test lims=0047) [facility] [address] CALCIUM, [id number] 04:59:00 Test Item Value Reference Range Comments CALCIUM IONIZED (BEAKER) (test qumf=185) 1.06 mmol/L 1.12-1.27 PH, BLOOD (BEAKER) (test kjyh=0662) 7.47 RAD, CHEST, 1 VIEW, NON [id number] 04:44:00Reason for exam:-> IntubatedShould this be performed [...] Additional findings: None. Signed: JR Patrick, Fernando MARINeport Verified Date/Time: 02/02/2017 04:44:10 Reading Location: [facility] C013Y CT Body Reading Room BASIC METABOLIC [id number] 04:29:00 Test Item Value Reference Range Comments SODIUM (BEAKER) (test 156 meq/L 136-145 dbzc=947) POTASSIUM (BEAKER) (test 3.4 meq/L 3.5-5.1 xjds=923) CHLORIDE (BEAKER) (test 117 meq/L 98-107 twsw=282) CO2 (BEAKER) (test 29 meq/L 22-29 dhpq=633) BLOOD UREA NITROGEN 45 mg/dL 7-21 (BEAKER) (test rigx=478) CREATININE (BEAKER) (test 1.52 mg/dL 0.57-1.25 ydoc=469) GLUCOSE RANDOM (BEAKER) 314 mg/dL 70-105 (test zcyy=980) CALCIUM (BEAKER) (test 7.8 mg/dL 8.4-10.2 puiw=725) EGFR (BEAKER) (test 47 mL/min/1.73 sq m ESTIMATED GFR IS NOT dihj=8214) ACCURATE CREATININE CLEARANCE IN PREDICTING GLOMERULAR FILTRATION RATE. ESTIMATED GFR IS NOT APPLICABLE FOR DIALYSIS PATIENTS. [id number] 03:57:00 Test Item Value Reference Range Comments PHOSPHORUS (BEAKER) (test moag=786) 2.3 mg/dL 2.3-4.7 [id number] 03:57:00 Test Item Value Reference Range Comments MAGNESIUM (BEAKER) (test cnmz=132) 2.5 mg/dL 1.6-2.6 PROTHROMBIN [id number] 03:41:00 Test Item Value Reference Range Comments PROTIME (BEAKER) (test xkzi=725) 19.7 seconds 11.7-14.7 INR (BEAKER) (test nvkt=934) 1.7 <=5.9 RECOMMENDED COUMADIN/WARFARIN INR THERAPY RANGESSTANDARD DOSE: 2.0 - 3.0 Includes: PROPHYLAXIS forvenous thrombosis, systemic embolization; TREATMENT for venous thrombosis and/or pulmonary embolus.HIGH RISK: Target INR is 2.5-3.5 for patients with mechanical heart valves.CBC W/PLT COUNT & AUTO [id number] 03:40:00 Test Item Value Reference Range Comments WHITE BLOOD CELL COUNT (BEAKER) (test holh=221) 27.6 K/ L 3.5-10.5 RED BLOOD CELL COUNT (BEAKER) (test gcxs=038) 4.14 M/ L 4.63-6.08 HEMOGLOBIN (BEAKER) (test fkuv=575) 12.0 GM/DL 13.7-17.5 HEMATOCRIT (BEAKER) (test lmut=532) 39.9 % 40.1-51.0 MEAN CORPUSCULAR VOLUME (BEAKER) (test angf=999) 96.4 fL 79.0-92.2 MEAN CORPUSCULAR HEMOGLOBIN (BEAKER) (test 29.0 pg 25.7-32.2 jlqn=496) MEAN CORPUSCULAR HEMOGLOBIN CONC (BEAKER) (test 30.1 GM/DL 32.3-36.5 qbqe=649) RED CELL DISTRIBUTION WIDTH (BEAKER) (test 15.3 % 11.6-14.4 ihgr=693) PLATELET COUNT (BEAKER) (test rozz=685) 511 K/CU MM 150-450 MEAN PLATELET VOLUME (BEAKER) (test quvc=973) 10.5 fL 9.4-12.4 NUCLEATED RED BLOOD CELLS (BEAKER) (test 0 /100 WBC 0-0 eucc=836) NEUTROPHILS RELATIVE PERCENT (BEAKER) (test 89 % wsjm=964) LYMPHOCYTES RELATIVE PERCENT (BEAKER) (test 4 % zxst=969) MONOCYTES RELATIVE PERCENT (BEAKER) (test 3 % mrsv=233) EOSINOPHILS RELATIVE PERCENT (BEAKER) (test 0 % byfj=495) BASOPHILS RELATIVE PERCENT (BEAKER) (test 0 % wnwj=348) NEUTROPHILS ABSOLUTE COUNT (BEAKER) (test 24.63 K/ L 1.78-5.38 gmoh=143) LYMPHOCYTES ABSOLUTE COUNT (BEAKER) (test 1.13 K/ L 1.32-3.57 rmip=239) MONOCYTES ABSOLUTE COUNT (BEAKER) (test 0.95 K/ L 0.30-0.82 fivb=502) EOSINOPHILS ABSOLUTE COUNT (BEAKER) (test 0.01 K/ L 0.04-0.54 oqol=530) BASOPHILS ABSOLUTE COUNT (BEAKER) (test 0.08 K/ L 0.01-0.08 bkds=351) IMMATURE GRANULOCYTES-RELATIVE PERCENT (BEAKER) 3 % 0-1 (test imdb=3080) POCT-GLUCOSE [id number] 03:15:00 Test Item Value Reference Range Comments POC-GLUCOSE METER (BEAKER) 276 mg/dL 70-110 TESTED AT [address] (test nfrs=7617) [place] [address] POCT-GLUCOSE [id number] 02:16:00 Test Item Value Reference Range Comments POC-GLUCOSE METER (BEAKER) 294 mg/dL 70-110 TESTED AT [address] (test lpsf=4768) [place] [address] POCT-GLUCOSE [id number] 01:14:00 Test Item Value Reference Range Comments POC-GLUCOSE METER (BEAKER) 266 mg/dL 70-110 TESTED AT [address] (test bfwa=0477) [place] [address] [id number] 00:38:00 Test Item Value Reference Range Comments PARTIAL THROMBOPLASTIN TIME (BEAKER) (test 67.9 seconds 22.5-36.0 fndb=197) POCT-GLUCOSE [id number] 00:14:00 Test Item Value Reference Range Comments POC-GLUCOSE METER (BEAKER) 190 mg/dL 70-110 TESTED AT [address] (test eqsz=6081) [place] [address] POCT-GLUCOSE [id number] 20:46:00 Test Item Value Reference Range Comments POC-GLUCOSE METER (BEAKER) 81 mg/dL 70-110 TESTED AT [address] (test tnus=5355) [place] [address] POCT-GLUCOSE [id number] 20:13:00 Test Item Value Reference Range Comments POC-GLUCOSE METER (BEAKER) 73 mg/dL 70-110 TESTED AT [address] (test ivhm=3021) [place] [address] [id number] 19:33:00 Test Item Value Reference Range Comments PARTIAL THROMBOPLASTIN TIME (BEAKER) (test 35.9 seconds 22.5-36.0 lvgf=089) POCT-GLUCOSE [id number] 18:29:00 Test Item Value Reference Range Comments POC-GLUCOSE METER (BEAKER) 70 mg/dL 70-110 TESTED AT [address] (test nrud=1859) [place] [address] TROPONIN [id number] 14:50:00 Test Item Value Reference Range Comments TROPONIN I (BEAKER) (test tnvz=852) 0.02 ng/mL 0.00-0.03 Troponin I (TnI) levels [...] acidosis, acute neurological disease, and persistent tachyarrhythmia.POCT-GLUCOSE [id number] 14:16:00 Test Item Value Reference Range Comments POC-GLUCOSE METER (BEAKER) 185 mg/dL 70-110 TESTED AT [address] (test axae=7711) [place] [address] POCT-GLUCOSE [id number] 14:04:00 Test Item Value Reference Range Comments POC-GLUCOSE METER (BEAKER) 159 mg/dL 70-110 TESTED AT [address] (test xdjt=7001) [place] [address] URINE [id number] 13:40:00 Test Item Value Reference Range Comments CULTURE (BEAKER) (test dnoz=1024) Amikacin (test code=1) Ampicillin + Sulbactam (test code=6) Aztreonam (test code=32) Cefepime (test code=51) Cefoxitin (test code=68) Ceftazidime (test code=27) Ceftriaxone (test code=52) Ertapenem (test code=38) Gentamicin (test code=18) Levofloxacin (test code=22) Meropenem (test code=34) Nitrofurantoin (test code=23) Piperacillin + Tazobactam (test code=29) Tetracycline (test code=2) Tobramycin (test code=25) Trimethoprim + Sulfamethoxazole (test code=47) CULTURE (AKER) (test dgcb=7658) >100,000 col/mL Escherichia coliESBL Positive 80-89,000 col/mL skin floraRAD, CHEST, 1 VIEW, NON [id number] 13:29: 00Reason for exam:->reintubation Should this be [...] Orellana Verified Date/Time: 02/01/2017 13:29:08 Reading Location: [facility] Radiology Reading Room SPUTUM CULTURE + GRAM [id number] 11:46:00 Test Item Value Reference Range Comments CULTURE (BEAKER) (test ojno=5312) No growth GRAM STAIN RESULT (BEAKER) (test 3+ White blood cells seen pwxy=7258) GRAM STAIN RESULT (BEAKER) (test 0-5 epithelial cells gmfx=10958) GRAM STAIN RESULT (BEAKER) (test No organisms seen ztof=62642) CBC W/PLT COUNT & AUTO [id number] 10:58:00 Test Item Value Reference Range Comments WHITE BLOOD CELL COUNT (BEAKER) (test uitj=146) 22.8 K/ L 3.5-10.5 RED BLOOD CELL COUNT (BEAKER) (test tios=426) 4.64 M/ L 4.63-6.08 HEMOGLOBIN (BEAKER) (test ihep=875) 13.6 GM/DL 13.7-17.5 HEMATOCRIT (BEAKER) (test yply=613) 42.7 % 40.1-51.0 MEAN CORPUSCULAR VOLUME (BEAKER) (test klfe=991) 92.0 fL 79.0-92.2 MEAN CORPUSCULAR HEMOGLOBIN (BEAKER) (test 29.3 pg 25.7-32.2 onzy=581) MEAN CORPUSCULAR HEMOGLOBIN CONC (BEAKER) (test 31.9 GM/DL 32.3-36.5 motk=783) RED CELL DISTRIBUTION WIDTH (BEAKER) (test 15.2 % 11.6-14.4 rbox=497) PLATELET COUNT (BEAKER) (test gzrp=915) 511 K/CU MM 150-450 MEAN PLATELET VOLUME (BEAKER) (test pmke=848) 10.5 fL 9.4-12.4 NUCLEATED RED BLOOD CELLS (BEAKER) (test 0 /100 WBC 0-0 fdij=152) NEUTROPHILS RELATIVE PERCENT (BEAKER) (test 83 % edyz=548) LYMPHOCYTES RELATIVE PERCENT (BEAKER) (test 7 % urtq=341) MONOCYTES RELATIVE PERCENT (BEAKER) (test 4 % rbbb=101) EOSINOPHILS RELATIVE PERCENT (BEAKER) (test 0 % yzmt=504) BASOPHILS RELATIVE PERCENT (BEAKER) (test 0 % kttx=885) NEUTROPHILS ABSOLUTE COUNT (BEAKER) (test 18.95 K/ L 1.78-5.38 xjid=703) LYMPHOCYTES ABSOLUTE COUNT (BEAKER) (test 1.56 K/ L 1.32-3.57 mpjp=307) MONOCYTES ABSOLUTE COUNT (BEAKER) (test 0.98 K/ L 0.30-0.82 kqdp=348) EOSINOPHILS ABSOLUTE COUNT (BEAKER) (test 0.00 K/ L 0.04-0.54 plyh=588) BASOPHILS ABSOLUTE COUNT (BEAKER) (test 0.06 K/ L 0.01-0.08 fhda=021) IMMATURE GRANULOCYTES-RELATIVE PERCENT (BEAKER) 6 % 0-1 (test wfgy=2269) (MANUAL DIFFERENTIAL)2017-02-01 10:58:00 Test Item Value Reference Range Comments NEUTROPHILS - REL (DIFF) (BEAKER) (test 84 % vqxr=3424) LYMPHOCYTES - REL (DIFF) (BEAKER) (test 6 % sbtd=1461) MONOCYTES - REL (DIFF) (BEAKER) (test plgt=0482) 4 % EOSINOPHILS - REL (DIFF) (BEAKER) (test 0 % ickb=7900) BASOPHILS - REL (DIFF) (BEAKER) (test izfq=3236) 0 % MYELOCYTES-REL (DIFF) (BEAKER) (test cfgx=4544) 1 % 0-0 PROMYELOCYTES-REL (DIFF) (BEAKER) (test keeb=275) 1 % 0-0 BANDS - REL (DIFF) (BEAKER) (test zwnp=6446) 4 % 0-10 NEUTROPHILS - ABS (DIFF) (BEAKER) (test 19.15 K/ L 1.80-8.00 dhwd=0770) LYMPHOCYTES - ABS (DIFF) (BEAKER) (test 1.37 K/ L 1.48-4.50 eogn=5677) MONOCYTES - ABS (DIFF) (BEAKER) (test kgvv=4815) 0.91 K/ L 0.00-1.30 EOSINOPHILS - ABS (DIFF) (BEAKER) (test 0.00 K/ L 0.00-0.50 phhq=2185) BASOPHILS - ABS (DIFF) (BEAKER) (test beik=4306) 0.00 K/ L 0.00-0.20 PROMYELOCYTES - ABS (DIFF) (BEAKER) (test 0.23 K/ L 0.00-0.00 ecyj=032) BANDS-ABS (DIFF) (BEAKER) (test gqry=3864) 0.9 K/ L 0.0-0.8 MYELOCYTES-ABS (DIFF) (BEAKER) (test qoou=3708) 0.23 K/ L 0.00-0.00 TOTAL COUNTED (BEAKER) (test fmwu=5401) 100 BANDS + SEGMENTED NEUTROPHILS (BEAKER) (test 20.06 drpu=1556) MANUAL NRBC PER 100 CELLS (BEAKER) (test 2 /100 WBC 0-0 pxac=1950) WBC MORPHOLOGY (BEAKER) (test sqxd=511) Normal RBC MORPHOLOGY (BEAKER) (test bard=068) Normal LARGE PLT(BEAKER) (test nslv=6803) Present CLUMPED PLATELETS (BEAKER) (test zsny=296) Present MISCELLANEOUS LAB [id number] 06:53:00 Test Item Value Reference Range Comments SCAN RESULT (test koux=[id number]) Result comments: VANCOMYCIN-SUSCEPTIBLE ENTEROCOCCUS (VSE) DETECTED First line therapy: vancomycin or ampicillin (ampicillin only if confirmed susceptible) ( Goldie/vanB not detected) Other organisms and resistance markers not contained in this PCR panel cannot be excluded and follow-up of traditional culture results is required. This sample was tested at the [facility] Clinical Microbiology Laboratory using the [employer] Blood Culture ID Panel. This test is FDA cleared for in vitro diagnostic useand has been verified and approved by the [facility] Clinical Microbiology laboratory for clinical use. Reference Range: Not DetectedPOCT-GLUCOSE [id number] 06:24:00 Test Item Value Reference Range Comments POC-GLUCOSE METER (BEAKER) 239 mg/dL 70-110 TESTED AT [facility] 6720 [address] (test tmjj=3715) [facility] [address] CALCIUM, [id number] 06:04:00 Test Item Value Reference Range Comments CALCIUM IONIZED (BEAKER) (test obhh=000) 1.04 mmol/L 1.12-1.27 PH, BLOOD (BEAKER) (test rcff=5595) 7.54 RAD, CHEST, 1 VIEW, NON [id number] 05:12:00Reason for exam:-> IntubatedShould this be performed [...] MDReport Verified Date/Time: 02/01/2017 05:12:24 Reading Location: [address] Body Reading Room PROTHROMBIN [id number] 05:11:00 Test Item Value Reference Range Comments PROTIME (BEAKER) (test tvmn=014) 18.1 seconds 11.7-14.7 INR (BEAKER) (test rhwx=637) 1.5 <=5.9 RECOMMENDED COUMADIN/WARFARIN INR THERAPY RANGESSTANDARD DOSE: 2.0 - 3.0 Includes: PROPHYLAXIS forvenous thrombosis, systemic embolization; TREATMENT for venous thrombosis and/or pulmonary embolus.HIGH RISK: Target INR is 2.5-3.5 for patients with mechanical heart valves.[id number] 05:07:00 Test Item Value Reference Range Comments MAGNESIUM (BEAKER) (test 2.3 mg/dL 1.6-2.6 Specimen slightly hemolyzed zobn=491) [id number] 05:07:00 Test Item Value Reference Range Comments PHOSPHORUS (BEAKER) (test 3.3 mg/dL 2.3-4.7 Specimen slightly hemolyzed ktsi=436) BASIC METABOLIC [id number] 05:07:00 Test Item Value Reference Range Comments SODIUM (BEAKER) (test 154 meq/L 136-145 xzcs=507) POTASSIUM (BEAKER) (test 3.6 meq/L 3.5-5.1 Specimen slightly qyag=110) hemolyzed CHLORIDE (BEAKER) (test 114 meq/L 98-107 tonr=110) CO2 (BEAKER) (test 29 meq/L 22-29 tjna=114) BLOOD UREA NITROGEN 43 mg/dL 7-21 (BEAKER) (test elpl=013) CREATININE (BEAKER) (test 1.34 mg/dL 0.57-1.25 Specimen slightly fgog=945) hemolyzed GLUCOSE RANDOM (BEAKER) 280 mg/dL 70-105 (test thiw=142) CALCIUM (BEAKER) (test 8.1 mg/dL 8.4-10.2 wcmr=298) EGFR (BEAKER) (test 55 mL/min/1.73 sq m ESTIMATED GFR IS NOT ehmi=5971) ACCURATE CREATININE CLEARANCE IN PREDICTING GLOMERULAR FILTRATION RATE. ESTIMATED GFR IS NOT APPLICABLE FOR DIALYSIS PATIENTS. POCT-GLUCOSE [id number] 02:45:00 Test Item Value Reference Range Comments POC-GLUCOSE METER (BEAKER) 231 mg/dL 70-110 TESTED AT [address] (test jbom=8679) [facility] [address] POCT-GLUCOSE [id number] 23:54:00 Test Item Value Reference Range Comments POC-GLUCOSE METER (BEAKER) 158 mg/dL 70-110 TESTED AT [address] (test yrfs=9776) [facility] [address] POCT-GLUCOSE [id number] 20:48:00 Test Item Value Reference Range Comments POC-GLUCOSE METER (BEAKER) 217 mg/dL 70-110 TESTED AT [address] (test gdzl=4419) [facility] [address] POCT-GLUCOSE [id number] 18:55:00 Test Item Value Reference Range Comments POC-GLUCOSE METER (BEAKER) 202 mg/dL 70-110 TESTED AT [address] (test zhdv=4919) [facility] [address] POCT-GLUCOSE [id number] 18:55:00 Test Item Value Reference Range Comments POC-GLUCOSE METER (BEAKER) 220 mg/dL 70-110 TESTED AT [address] (test igva=8207) [facility] [address] RAD, CHEST, 1 VIEW, NON [id number] 17:48:00Reason for exam:->line placement Should this be [...] Verified Date/Time: 01/31/2017 17 :48:33 Reading Location: [facility] Radiology Reading Room POCT-GLUCOSE [id number] 17 :47:00 Test Item Value Reference Range Comments POC-GLUCOSE METER (BEAKER) 177 mg/dL 70-110 TESTED AT [address] (test bkxv=0433) [facility] [address] POCT-GLUCOSE [id number] 12:59:00 Test Item Value Reference Range Comments POC-GLUCOSE METER (BEAKER) 175 mg/dL 70-110 TESTED AT [address] (test thub=9066) [facility] [address] POCT-GLUCOSE [id number] 12:59:00 Test Item Value Reference Range Comments POC-GLUCOSE METER (BEAKER) 163 mg/dL 70-110 TESTED AT [address] (test rtuh=8843) [facility] [address] POCT-GLUCOSE [id number] 12:59:00 Test Item Value Reference Range Comments POC-GLUCOSE METER (BEAKER) 151 mg/dL 70-110 TESTED AT [facility] [address] (test bitv=0662) [facility] [address] [id number] 11:38:00 Test Item Value Reference Range Comments PARTIAL THROMBOPLASTIN TIME (BEAKER) (test 67.0 seconds 22.5-36.0 hgtc=514) CBC W/PLT COUNT & AUTO [id number] 11:00:00 Test Item Value Reference Range Comments WHITE BLOOD CELL COUNT (BEAKER) (test xfxc=822) 20.8 K/ L 3.5-10.5 RED BLOOD CELL COUNT (BEAKER) (test drsm=933) 4.58 M/ L 4.63-6.08 HEMOGLOBIN (BEAKER) (test hjak=568) 13.2 GM/DL 13.7-17.5 HEMATOCRIT (BEAKER) (test bpdt=783) 42.1 % 40.1-51.0 MEAN CORPUSCULAR VOLUME (BEAKER) (test awqe=947) 91.9 fL 79.0-92.2 MEAN CORPUSCULAR HEMOGLOBIN (BEAKER) (test 28.8 pg 25.7-32.2 ulip=978) MEAN CORPUSCULAR HEMOGLOBIN CONC (BEAKER) (test 31.4 GM/DL 32.3-36.5 kjcc=402) RED CELL DISTRIBUTION WIDTH (BEAKER) (test 14.9 % 11.6-14.4 bzjn=205) PLATELET COUNT (BEAKER) (test oxna=505) 417 K/CU MM 150-450 MEAN PLATELET VOLUME (BEAKER) (test ybvr=354) 10.4 fL 9.4-12.4 NUCLEATED RED BLOOD CELLS (BEAKER) (test 0 /100 WBC 0-0 femj=052) NEUTROPHILS RELATIVE PERCENT (BEAKER) (test 75 % pgsx=821) LYMPHOCYTES RELATIVE PERCENT (BEAKER) (test 8 % afyx=364) MONOCYTES RELATIVE PERCENT (BEAKER) (test 6 % gqri=108) EOSINOPHILS RELATIVE PERCENT (BEAKER) (test 0 % enug=386) BASOPHILS RELATIVE PERCENT (BEAKER) (test 1 % eojl=722) NEUTROPHILS ABSOLUTE COUNT (BEAKER) (test 15.63 K/ L 1.78-5.38 tjvv=078) LYMPHOCYTES ABSOLUTE COUNT (BEAKER) (test 1.70 K/ L 1.32-3.57 fpfk=676) MONOCYTES ABSOLUTE COUNT (BEAKER) (test 1.25 K/ L 0.30-0.82 rrcl=314) EOSINOPHILS ABSOLUTE COUNT (BEAKER) (test 0.03 K/ L 0.04-0.54 gxsz=214) BASOPHILS ABSOLUTE COUNT (BEAKER) (test 0.12 K/ L 0.01-0.08 uhhk=310) IMMATURE GRANULOCYTES-RELATIVE PERCENT (BEAKER) 10 % 0-1 (test arqu=6075) (MANUAL DIFFERENTIAL)2017-01-31 11:00:00 Test Item Value Reference Range Comments TOTAL COUNTED (BEAKER) (test hkzp=5846) WBC MORPHOLOGY (BEAKER) (test wlyb=733) Normal PLT MORPHOLOGY (BEAKER) (test rpzc=988) Normal RBC MORPHOLOGY (BEAKER) (test nvyi=939) Normal POCT-GLUCOSE [id number] 07:58:00 Test Item Value Reference Range Comments POC-GLUCOSE METER (BEAKER) 125 mg/dL 70-110 TESTED AT [address] (test xcor=0836) [place] [id number] POCT-GLUCOSE [id number] 06:02:00 Test Item Value Reference Range Comments POC-GLUCOSE METER (BEAKER) 145 mg/dL 70-110 TESTED AT [address] (test vhug=3649) [place] [address] POCT-GLUCOSE [id number] 06:02:00 Test Item Value Reference Range Comments POC-GLUCOSE METER (BEAKER) 142 mg/dL 70-110 TESTED AT [address] (test lkcv=8804) [facility] [address] PROTHROMBIN [id number] 05:39:00 Test Item Value Reference Range Comments PROTIME (BEAKER) (test ejau=353) 16.1 seconds 11.7-14.7 INR (BEAKER) (test zosf=571) 1.3 <=5.9 RECOMMENDED COUMADIN/WARFARIN INR THERAPY RANGESSTANDARD DOSE: 2.0 - 3.0 Includes: PROPHYLAXIS forvenous thrombosis, systemic embolization; TREATMENT for venous thrombosis and/or pulmonary embolus.HIGH RISK: Target INR is 2.5-3.5 for patients with mechanical heart valves.CALCIUM, [id number] 05:34:00 Test Item Value Reference Range Comments CALCIUM IONIZED (BEAKER) (test ajix=234) 1.11 mmol/L 1.12-1.27 PH, BLOOD (BEAKER) (test utzu=9966) 7.52 [id number] 05:34:00 Test Item Value Reference Range Comments PHOSPHORUS (BEAKER) (test atiw=779) 2.5 mg/dL 2.3-4.7 [id number] 05:34:00 Test Item Value Reference Range Comments MAGNESIUM (BEAKER) (test okzx=985) 2.2 mg/dL 1.6-2.6 BASIC METABOLIC [id number] 05:34:00 Test Item Value Reference Range Comments SODIUM (BEAKER) (test 152 meq/L 136-145 yffj=216) POTASSIUM (BEAKER) (test 3.5 meq/L 3.5-5.1 uyml=327) CHLORIDE (BEAKER) (test 112 meq/L 98-107 aqvy=644) CO2 (BEAKER) (test 30 meq/L 22-29 unqx=801) BLOOD UREA NITROGEN 37 mg/dL 7-21 (BEAKER) (test czco=895) CREATININE (BEAKER) (test 1.05 mg/dL 0.57-1.25 tmvv=660) GLUCOSE RANDOM (BEAKER) 142 mg/dL 70-105 (test irmt=445) CALCIUM (BEAKER) (test 8.4 mg/dL 8.4-10.2 tsui=721) EGFR (BEAKER) (test 73 mL/min/1.73 sq m ESTIMATED GFR IS NOT sjbc=7654) ACCURATE CREATININE CLEARANCE IN PREDICTING GLOMERULAR FILTRATION RATE. ESTIMATED GFR IS NOT APPLICABLE FOR DIALYSIS PATIENTS. HEPATIC FUNCTION [id number] 05:34:00 Test Item Value Reference Range Comments TOTAL PROTEIN (BEAKER) (test roji=790) 5.8 gm/dL 6.0-8.3 ALBUMIN (BEAKER) (test ugrv=6746) 2.5 g/dL 3.5-5.0 BILIRUBIN TOTAL (BEAKER) (test osgu=081) 0.4 mg/dL 0.2-1.2 BILIRUBIN DIRECT (BEAKER) (test cowd=245) 0.2 mg/dL 0.1-0.5 ALKALINE PHOSPHATASE (BEAKER) (test ulos=051) 182 U/L 40-150 AST (SGOT) (BEAKER) (test sova=513) 23 U/L 5-34 ALT (SGPT) (BEAKER) (test vpyh=436) 13 U/L 6-55 POCT-GLUCOSE [id number] 04:37:00 Test Item Value Reference Range Comments POC-GLUCOSE METER (BEAKER) 128 mg/dL 70-110 TESTED AT [facility] [address] [place] [address] (test psdx=4560) [facility] [address] RAD, CHEST, 1 VIEW, NON [id number] 04:30:00Reason for exam:-> IntubatedShould this be performed at the bedside?->YesFINAL REPORT Comparison exam: 01/30/2017 Subsegmental right lung atelectasis unchanged. No pneumothorax. Stable cardiomediastinal contours. Appropriate position of the support hardware. Signed: David Romo MDReport Verified Date/Time: 01/31/2017 04:30:06 Reading Location: [facility] [id number] Ortho Consult Reading Room 04 :30 AMCT, [id number] 02:14:00 WILL REQUIRE ORAL CONTRASTFINAL REPORT CT [...] Romo Verified Date/Time: 01/31/2017 02:14:26 Reading Location: [address] Consult Reading Room POCT-GLUCOSE [id number] 01:54:00 Test Item Value Reference Range Comments POC-GLUCOSE METER (BEAKER) 169 mg/dL 70-110 TESTED AT [address] (test lpvx=6918) [facility] [address] [id number] 01:19:00 Test Item Value Reference Range Comments PARTIAL THROMBOPLASTIN TIME (BEAKER) (test 107.2 seconds 22.5-36.0 aneb=769) POCT-GLUCOSE [id number] 00:51:00 Test Item Value Reference Range Comments POC-GLUCOSE METER (BEAKER) 210 mg/dL 70-110 TESTED AT [address] (test potq=0234) [facility] [address] [id number] 00:38:00 Test Item Value Reference Range Comments PARTIAL THROMBOPLASTIN TIME (BEAKER) (test > seconds 22.5-36.0 rsyp=684) POCT-GLUCOSE [id number] 23:42:00 Test Item Value Reference Range Comments POC-GLUCOSE METER (BEAKER) 194 mg/dL 70-110 TESTED AT [address] (test merm=7539) [facility] [address] POCT-GLUCOSE [id number] 23:12:00 Test Item Value Reference Range Comments POC-GLUCOSE METER (BEAKER) 211 mg/dL 70-110 TESTED AT [address] (test cnsz=1996) [place] [id number] POCT-GLUCOSE [id number] 21:48:00 Test Item Value Reference Range Comments POC-GLUCOSE METER (BEAKER) 226 mg/dL 70-110 TESTED AT [address] (test ajzu=3973) [place] [address] POCT-GLUCOSE [id number] 20:24:00 Test Item Value Reference Range Comments POC-GLUCOSE METER (BEAKER) 258 mg/dL 70-110 TESTED AT [address] (test kvnu=3825) [facility] [address] POCT-GLUCOSE [id number] 18:27:00 Test Item Value Reference Range Comments POC-GLUCOSE METER (BEAKER) 312 mg/dL 70-110 Will Repeat Test/TESTED AT (test kptp=3171) [address] [address] POCT-GLUCOSE [id number] 17:59:00 Test Item Value Reference Range Comments POC-GLUCOSE METER (BEAKER) 332 mg/dL 70-110 Will Repeat Test/TESTED AT (test wsaz=4057) [address] [address] [id number] 15:44:00 Test Item Value Reference Range Comments PARTIAL THROMBOPLASTIN TIME (BEAKER) (test 92.2 seconds 22.5-36.0 jewd=840) POCT-GLUCOSE [id number] 15:26:00 Test Item Value Reference Range Comments POC-GLUCOSE METER (BEAKER) 371 mg/dL 70-110 TESTED AT [address] (test gafs=4336) [facility] [address] POCT-GLUCOSE [id number] 15:17:00 Test Item Value Reference Range Comments POC-GLUCOSE METER (BEAKER) 311 mg/dL 70-110 TESTED AT [place] [id number] [facility] (test eolg=2080) [place] [address] POCT-GLUCOSE [id number] 15:17:00 Test Item Value Reference Range Comments POC-GLUCOSE METER (BEAKER) 271 mg/dL 70-110 TESTED AT [place] [id number] [facility] (test voxl=5121) [facility] [address] CBC W/PLT COUNT & AUTO [id number] 13:31:00 Test Item Value Reference Range Comments WHITE BLOOD CELL COUNT (BEAKER) (test ibgl=623) 16.4 K/ L 3.5-10.5 RED BLOOD CELL COUNT (BEAKER) (test zpxf=650) 4.59 M/ L 4.63-6.08 HEMOGLOBIN (BEAKER) (test vnoh=265) 13.3 GM/DL 13.7-17.5 HEMATOCRIT (BEAKER) (test jqva=447) 41.6 % 40.1-51.0 MEAN CORPUSCULAR VOLUME (BEAKER) (test mrdb=023) 90.6 fL 79.0-92.2 MEAN CORPUSCULAR HEMOGLOBIN (BEAKER) (test 29.0 pg 25.7-32.2 spll=449) MEAN CORPUSCULAR HEMOGLOBIN CONC (BEAKER) (test 32.0 GM/DL 32.3-36.5 lbvg=575) RED CELL DISTRIBUTION WIDTH (BEAKER) (test 14.9 % 11.6-14.4 pxny=139) PLATELET COUNT (BEAKER) (test sqwp=551) 329 K/CU MM 150-450 MEAN PLATELET VOLUME (BEAKER) (test bnbz=781) 10.6 fL 9.4-12.4 NUCLEATED RED BLOOD CELLS (BEAKER) (test 0 /100 WBC 0-0 rzcu=540) NEUTROPHILS RELATIVE PERCENT (BEAKER) (test 73 % hvcy=535) LYMPHOCYTES RELATIVE PERCENT (BEAKER) (test 9 % wdmc=496) MONOCYTES RELATIVE PERCENT (BEAKER) (test 7 % kmck=799) EOSINOPHILS RELATIVE PERCENT (BEAKER) (test 0 % pcos=961) BASOPHILS RELATIVE PERCENT (BEAKER) (test 0 % xhdz=094) NEUTROPHILS ABSOLUTE COUNT (BEAKER) (test 11.91 K/ L 1.78-5.38 bfut=590) LYMPHOCYTES ABSOLUTE COUNT (BEAKER) (test 1.49 K/ L 1.32-3.57 spea=711) MONOCYTES ABSOLUTE COUNT (BEAKER) (test 1.08 K/ L 0.30-0.82 xpkd=005) EOSINOPHILS ABSOLUTE COUNT (BEAKER) (test 0.03 K/ L 0.04-0.54 plsb=213) BASOPHILS ABSOLUTE COUNT (BEAKER) (test 0.03 K/ L 0.01-0.08 hrfg=615) IMMATURE GRANULOCYTES-RELATIVE PERCENT (BEAKER) 11 % 0-1 (test lzxl=8207) (MANUAL DIFFERENTIAL)2017-01-30 13:31:00 Test Item Value Reference Range Comments NEUTROPHILS - REL (DIFF) (BEAKER) (test 72 % ffsx=3303) LYMPHOCYTES - REL (DIFF) (BEAKER) (test 14 % qdic=9917) MONOCYTES - REL (DIFF) (BEAKER) (test qlrr=3311) 2 % METAMYELOCYTES-REL (DIFF) (BEAKER) (test 1 % 0-0 ycha=986) MYELOCYTES-REL (DIFF) (BEAKER) (test ggjg=7655) 2 % 0-0 BANDS - REL (DIFF) (BEAKER) (test sddj=2805) 9 % 0-10 NEUTROPHILS - ABS (DIFF) (BEAKER) (test 11.81 K/ L 1.80-8.00 qjde=9879) LYMPHOCYTES - ABS (DIFF) (BEAKER) (test 2.30 K/ L 1.48-4.50 crzf=0158) MONOCYTES - ABS (DIFF) (BEAKER) (test hdgf=4318) 0.33 K/ L 0.00-1.30 METAMYELOCTYES - ABS (DIFF) (BEAKER) (test 0.16 K/ L 0.00-0.00 mufi=101) BANDS-ABS (DIFF) (BEAKER) (test totn=0006) 1.5 K/ L 0.0-0.8 MYELOCYTES-ABS (DIFF) (BEAKER) (test ujea=1884) 0.33 K/ L 0.00-0.00 TOTAL COUNTED (BEAKER) (test rast=7901) 100 BANDS + SEGMENTED NEUTROPHILS (BEAKER) (test 13.28 iigp=9407) MANUAL NRBC PER 100 CELLS (BEAKER) (test 1 /100 WBC 0-0 msnw=5014) RBC MORPHOLOGY (BEAKER) (test sxkp=618) Normal ATYPICAL LYMPHS(BEAKER) (test nnbz=3593) Present LARGE PLT(BEAKER) (test vbvs=8205) Present POCT-GLUCOSE [id number] 13:20:00 Test Item Value Reference Range Comments POC-GLUCOSE METER (BEAKER) 304 mg/dL 70-110 Notified CATE NICHOLS/TESTED AT [facility] (test stvn=5324) [address] [place] [address] RAD, ABDOMEN/KUB, 1 VIEW [id number] 11:13:00Reason for exam:->ileusFINAL REPORT Abdomen one view Comparison: January 27, 2017 Reason for exam: ileus Findings: Corpak and feeding tube project over the gastric body. There is a paucity of bowel gas, a nonspecific finding. Contrast is noted in the colon, which does not appear distended. No free air is identified. Signed: Mac Santamaria Verified Date/Time: 01/30/2017 11:13:36 Reading Location:[facility] Radiology Reading Room LACTIC ACID, VENOUS, WHOLE [id number] 11:04:00 Test Item Value Reference Range Comments LACTATE BLOOD VENOUS (2) (BEAKER) (test 1.5 mmol/L 0.5-2.2 czvv=2536) Effective 06/29/2015: Units/Reference Range ChangeNew: 0.5-2.2 mmol/L Previous: 5 -20 mg/dLOCCULT BLOOD, [id number] 08:44:00 Test Item Value Reference Range Comments FECAL OCCULT BLOOD (BEAKER) (test nwdq=979) Negative Negative [id number] 06:46:00 Test Item Value Reference Range Comments PARTIAL THROMBOPLASTIN TIME (BEAKER) (test 44.7 seconds 22.5-36.0 kbed=570) POCT-GLUCOSE [id number] 06:42:00 Test Item Value Reference Range Comments POC-GLUCOSE METER (BEAKER) 187 mg/dL 70-110 TESTED AT [address] (test zeqb=3391) [facility] [address] RAD, CHEST, 1 VIEW, NON [id number] 06:00:00Reason for exam:-> IntubatedShould this be performed at the bedside?->YesFINAL REPORT Comparison exam: 01/29/2017 Suboptimal chest x-ray secondary to right anterior oblique rotation. Low lung volumes. Bilateral subsegmental lower lobe atelectasis. Stable cardiomediastinal contours. Appropriate position of the support hardware. Signed: David Romo MDReport Verified Date/Time: 06:00:36 Reading Location: [address] Ortho Consult Reading Room POCT- GLUCOSE [id number] 05:19:00 Test Item Value Reference Range Comments POC-GLUCOSE METER (BEAKER) 141 mg/dL 70-110 TESTED AT [address] (test mmxn=2602) [place] [id number] POCT-GLUCOSE [id number] 05:19:00 Test Item Value Reference Range Comments POC-GLUCOSE METER (BEAKER) 140 mg/dL 70-110 TESTED AT [address] (test iiwd=3433) [facility] [address] CALCIUM, [id number] 04:51:00 Test Item Value Reference Range Comments CALCIUM IONIZED (BEAKER) (test ddsy=538) 1.07 mmol/L 1.12-1.27 PH, BLOOD (BEAKER) (test dxdy=0811) 7.53 BLOOD GAS, [id number] 04:48:00 Test Item Value Reference Range Comments PH ARTERIAL (BEAKER) (test djyg=509) 7.50 7.35-7.45 PCO2 ARTERIAL (BEAKER) (test wrvk=700) 44 mmHg 35-45 PO2 ARTERIAL (BEAKER) (test ofpk=674) 130 mmHg 80-90 O2 SATURATION ARTERIAL (BEAKER) (test icbl=428) 98.7 % 96.0-97.0 HCO3 ARTERIAL (BEAKER) (test edwl=207) 34 mmol/L 21-29 BASE EXCESS ARTERIAL (BEAKER) (test mzel=298) 9.9 mmol/L -2.0-3.0 PATIENT TEMPERATURE (BEAKER) (test razf=6752) 38.6 C FIO2 (BEAKER) (test evnj=8582) 40.0 % PROTHROMBIN [id number] 04:45:00 Test Item Value Reference Range Comments PROTIME (BEAKER) (test zuhc=802) 16.1 seconds 11.7-14.7 INR (BEAKER) (test snvx=700) 1.3 <=5.9 RECOMMENDED COUMADIN/WARFARIN INR THERAPY RANGESSTANDARD DOSE: 2.0 - 3.0 Includes: PROPHYLAXIS forvenous thrombosis, systemic embolization; TREATMENT for venous thrombosis and/or pulmonary embolus.HIGH RISK: Target INR is 2.5-3.5 for patients with mechanical heart valves.[id number] 04:45:00 Test Item Value Reference Range Comments PHOSPHORUS (BEAKER) (test xlje=316) 1.9 mg/dL 2.3-4.7 [id number] 04:45:00 Test Item Value Reference Range Comments MAGNESIUM (BEAKER) (test huff=671) 2.0 mg/dL 1.6-2.6 BASIC METABOLIC [id number] 04:45:00 Test Item Value Reference Range Comments SODIUM (BEAKER) (test 150 meq/L 136-145 rxzn=468) POTASSIUM (BEAKER) (test 3.4 meq/L 3.5-5.1 zvjx=319) CHLORIDE (BEAKER) (test 109 meq/L 98-107 ifqe=428) CO2 (BEAKER) (test 31 meq/L 22-29 fmyi=365) BLOOD UREA NITROGEN 27 mg/dL 7-21 (BEAKER) (test ryvt=030) CREATININE (BEAKER) (test 1.06 mg/dL 0.57-1.25 yesm=983) GLUCOSE RANDOM (BEAKER) 144 mg/dL 70-105 (test hgvn=683) CALCIUM (BEAKER) (test 8.1 mg/dL 8.4-10.2 wypw=516) EGFR (BEAKER) (test 72 mL/min/1.73 sq m ESTIMATED GFR IS NOT tegu=4344) ACCURATE CREATININE CLEARANCE IN PREDICTING GLOMERULAR FILTRATION RATE. ESTIMATED GFR IS NOT APPLICABLE FOR DIALYSIS PATIENTS. POCT-GLUCOSE [id number] 02:46:00 Test Item Value Reference Range Comments POC-GLUCOSE METER (BEAKER) 157 mg/dL 70-110 TESTED AT [address] (test wids=4786) [facility] [address] POCT-GLUCOSE [id number] 02:27:00 Test Item Value Reference Range Comments POC-GLUCOSE METER (BEAKER) 133 mg/dL 70-110 TESTED AT [address] (test pcjl=7609) [place] [id number] POCT-GLUCOSE [id number] 00:02:00 Test Item Value Reference Range Comments POC-GLUCOSE METER (BEAKER) 135 mg/dL 70-110 TESTED AT [address] (test myyv=7131) [place] [id number] POCT-GLUCOSE [id number] 23:35:00 Test Item Value Reference Range Comments POC-GLUCOSE METER (BEAKER) 138 mg/dL 70-110 TESTED AT [address] (test mgmp=8009) [place] [address] [address], BRAIN, WITHOUT [id number] 22:34:00Portable CT HeadFINAL REPORT Clinical history : [...] Impression: No acute abnormalities. Signed: David Romo Verified Date/Time: 01/29/2017 22 :34:49 Reading Location: [address] Consult Reading Room POCT- GLUCOSE [id number] 21:01:00 Test Item Value Reference Range Comments POC-GLUCOSE METER (BEAKER) 108 mg/dL 70-110 TESTED AT [address] (test sytd=1485) [place] [address] POCT-GLUCOSE [id number] 19:59:00 Test Item Value Reference Range Comments POC-GLUCOSE METER (BEAKER) 117 mg/dL 70-110 TESTED AT [address] (test odtm=0136) [place] [address] POCT-GLUCOSE [id number] 19:04:00 Test Item Value Reference Range Comments POC-GLUCOSE METER (BEAKER) 144 mg/dL 70-110 TESTED AT [address] (test jyyk=6040) [place] [address] [id number] 18:14:00 Test Item Value Reference Range Comments PARTIAL THROMBOPLASTIN TIME (BEAKER) (test 88.5 seconds 22.5-36.0 bpva=647) POCT-GLUCOSE [id number] 17:48:00 Test Item Value Reference Range Comments POC-GLUCOSE METER (BEAKER) 175 mg/dL 70-110 TESTED AT [address] (test zjkt=8302) [place] [address] BLOOD [id number] 17:32:00 Test Item Value Reference Range Comments CULTURE (BEAKER) From Aerobic Bottle Only (test yfjl=2764) Coagulase negative Staphylococcusof a second type GRAM STAIN RESULT From aerobic bottle (BEAKER) (test only: gram positive phod=2086) cocci in clusters Coagulase Negative Staphylococcus Species (CoNS) DETECTED, Methicillin Susceptible First line therapy: cefazolin, nafcillin (nafcillin preferred for Central Nervous System infection) Coagulase Negative Staphylococcus (CoNS) DETECTEDmecA NOT DETECTEDOther organisms and resistance markers not containedin this PCR panel cannot be excluded and follow-up of traditional culture results is required. This sample was tested at the [facility] Clinical [facility]biology [facility] using the [employer] Blood Culture ID Panel. This test is FDA cleared for in vitro diagnostic use and has been verified and approved by the [facility] Clinical Microbiology laboratory for clinical use. Reference Range: Not DetectedBLOOD GAS, [id number] 16:52:00 Test Item Value Reference Range Comments PH ARTERIAL (BEAKER) (test rrwd=181) 7.51 7.35-7.45 PCO2 ARTERIAL (BEAKER) (test ddls=670) 41 mmHg 35-45 PO2 ARTERIAL (BEAKER) (test dzsh=173) 91 mmHg 80-90 O2 SATURATION ARTERIAL (BEAKER) (test dyjj=405) 97.5 % 96.0-97.0 HCO3 ARTERIAL (BEAKER) (test urym=668) 32 mmol/L 21-29 BASE EXCESS ARTERIAL (BEAKER) (test qrsu=204) 8.4 mmol/L -2.0-3.0 PATIENT TEMPERATURE (BEAKER) (test enbd=0072) 37.0 C FIO2 (BEAKER) (test xmby=9272) 100.0 % POCT-GLUCOSE [id number] 16:38:00 Test Item Value Reference Range Comments POC-GLUCOSE METER (BEAKER) 164 mg/dL 70-110 TESTED AT [address] (test srey=3960) [place] [address] MISCELLANEOUS LAB [id number] 14:45:00 Test Item Value Reference Range Comments SCAN RESULT (test idiy=[id number]) Result comments: Coagulase Negative Staphylococcus Species (CoNS) DETECTED, Methicillin Susceptible First line therapy: cefazolin, nafcillin (nafcillin preferred for Central Nervous System infection) Coagulase Negative Staphylococcus (CoNS) DETECTED mecA NOT DETECTED Other organisms and resistance markers not contained in this PCR panel cannot be excluded and follow-up of traditional culture results is required. This sample was tested at the [facility] using the [employer] Blood Culture ID Panel. This test is FDA cleared for in vitro diagnostic use and has been verified and approved by the [facility] Clinical Microbiology laboratory for clinical use. Reference Range: Not DetectedPOCT-GLUCOSE [id number] 14:26:00 Test Item Value Reference Range Comments POC-GLUCOSE METER (BEAKER) 179 mg/dL 70-110 TESTED AT [address] (test dqyy=3919) [place] [id number] POCT-GLUCOSE [id number] 13:25:00 Test Item Value Reference Range Comments POC-GLUCOSE METER (BEAKER) 186 mg/dL 70-110 TESTED AT [address] (test feco=5001) [place] [address] POCT-GLUCOSE [id number] 12:08:00 Test Item Value Reference Range Comments POC-GLUCOSE METER (BEAKER) 193 mg/dL 70-110 TESTED AT [address] (test qtmk=7780) [facility] [address] BLOOD GAS, [id number] 11:31:00 Test Item Value Reference Range Comments PH ARTERIAL (BEAKER) (test imdp=138) 7.47 7.35-7.45 PCO2 ARTERIAL (BEAKER) (test iqvt=484) 47 mmHg 35-45 PO2 ARTERIAL (BEAKER) (test mihc=076) 124 mmHg 80-90 O2 SATURATION ARTERIAL (BEAKER) (test ferr=578) 98.5 % 96.0-97.0 HCO3 ARTERIAL (BEAKER) (test sdtx=861) 33 mmol/L 21-29 BASE EXCESS ARTERIAL (BEAKER) (test tzcq=921) 8.4 mmol/L -2.0-3.0 PATIENT TEMPERATURE (BEAKER) (test bysr=4154) 38.0 C FIO2 (BEAKER) (test bcae=7474) 40.0 % POCT-GLUCOSE [id number] 11:14:00 Test Item Value Reference Range Comments POC-GLUCOSE METER (BEAKER) 181 mg/dL 70-110 TESTED AT [address] (test etey=0451) [facility] [address] [id number] 10:20:00 Test Item Value Reference Range Comments PARTIAL THROMBOPLASTIN TIME (BEAKER) (test 89.6 seconds 22.5-36.0 bplo=078) POCT-GLUCOSE [id number] 10:05:00 Test Item Value Reference Range Comments POC-GLUCOSE METER (BEAKER) 204 mg/dL 70-110 TESTED AT [address] (test rtiq=2754) [facility] [address] POCT-GLUCOSE [id number] 09:09:00 Test Item Value Reference Range Comments POC-GLUCOSE METER (BEAKER) 221 mg/dL 70-110 TESTED AT [address] (test twgv=4000) [facility] [address] POCT-GLUCOSE [id number] 07:41:00 Test Item Value Reference Range Comments POC-GLUCOSE METER (BEAKER) 230 mg/dL 70-110 TESTED AT [address] (test lbpz=7052) [facility] [address] POCT-GLUCOSE [id number] 07:05:00 Test Item Value Reference Range Comments POC-GLUCOSE METER (BEAKER) 219 mg/dL 70-110 TESTED AT [facility] [address] (test afwy=7480) [facility] [address] CBC W/PLT COUNT & AUTO [id number] 06:49:00 Test Item Value Reference Range Comments WHITE BLOOD CELL COUNT (BEAKER) (test bnba=266) 13.3 K/ L 3.5-10.5 RED BLOOD CELL COUNT (BEAKER) (test fkoe=862) 4.09 M/ L 4.63-6.08 HEMOGLOBIN (BEAKER) (test coyo=115) 12.0 GM/DL 13.7-17.5 HEMATOCRIT (BEAKER) (test gkpf=981) 37.5 % 40.1-51.0 MEAN CORPUSCULAR VOLUME (BEAKER) (test hppp=746) 91.7 fL 79.0-92.2 MEAN CORPUSCULAR HEMOGLOBIN (BEAKER) (test 29.3 pg 25.7-32.2 cmdw=558) MEAN CORPUSCULAR HEMOGLOBIN CONC (BEAKER) (test 32.0 GM/DL 32.3-36.5 vnlh=137) RED CELL DISTRIBUTION WIDTH (BEAKER) (test 14.9 % 11.6-14.4 hjxv=996) PLATELET COUNT (BEAKER) (test wvxt=564) 207 K/CU MM 150-450 MEAN PLATELET VOLUME (BEAKER) (test qywi=657) 10.6 fL 9.4-12.4 NUCLEATED RED BLOOD CELLS (BEAKER) (test 0 /100 WBC 0-0 uywb=896) NEUTROPHILS RELATIVE PERCENT (BEAKER) (test 82 % fbqs=037) LYMPHOCYTES RELATIVE PERCENT (BEAKER) (test 4 % wwnr=230) MONOCYTES RELATIVE PERCENT (BEAKER) (test 6 % zdoo=388) EOSINOPHILS RELATIVE PERCENT (BEAKER) (test 0 % kxad=761) BASOPHILS RELATIVE PERCENT (BEAKER) (test 0 % ndnp=257) NEUTROPHILS ABSOLUTE COUNT (BEAKER) (test 10.93 K/ L 1.78-5.38 ylvt=315) LYMPHOCYTES ABSOLUTE COUNT (BEAKER) (test 0.54 K/ L 1.32-3.57 siah=863) MONOCYTES ABSOLUTE COUNT (BEAKER) (test 0.85 K/ L 0.30-0.82 neru=157) EOSINOPHILS ABSOLUTE COUNT (BEAKER) (test 0.01 K/ L 0.04-0.54 mwpq=861) BASOPHILS ABSOLUTE COUNT (BEAKER) (test 0.04 K/ L 0.01-0.08 mipc=349) IMMATURE GRANULOCYTES-RELATIVE PERCENT (BEAKER) 7 % 0-1 (test jwgk=8407) (MANUAL DIFFERENTIAL)2017-01-29 06:49:00 Test Item Value Reference Range Comments NEUTROPHILS - REL (DIFF) (BEAKER) (test 79 % qxlm=4440) LYMPHOCYTES - REL (DIFF) (BEAKER) (test 6 % swbh=3609) MONOCYTES - REL (DIFF) (BEAKER) (test sdgv=7174) 5 % EOSINOPHILS - REL (DIFF) (BEAKER) (test 0 % gbtw=0371) BASOPHILS - REL (DIFF) (BEAKER) (test gpsq=5352) 0 % METAMYELOCYTES-REL (DIFF) (BEAKER) (test 1 % 0-0 hwpi=280) MYELOCYTES-REL (DIFF) (BEAKER) (test nrkg=8388) 1 % 0-0 PROMYELOCYTES-REL (DIFF) (BEAKER) (test urwk=901) 1 % 0-0 BANDS - REL (DIFF) (BEAKER) (test adho=4861) 7 % 0-10 NEUTROPHILS - ABS (DIFF) (BEAKER) (test 10.51 K/ L 1.80-8.00 nzhw=0206) LYMPHOCYTES - ABS (DIFF) (BEAKER) (test 0.80 K/ L 1.48-4.50 xbme=4983) MONOCYTES - ABS (DIFF) (BEAKER) (test yfwb=9724) 0.67 K/ L 0.00-1.30 EOSINOPHILS - ABS (DIFF) (BEAKER) (test 0.00 K/ L 0.00-0.50 rlzy=2585) BASOPHILS - ABS (DIFF) (BEAKER) (test mfhe=0356) 0.00 K/ L 0.00-0.20 METAMYELOCTYES - ABS (DIFF) (BEAKER) (test 0.13 K/ L 0.00-0.00 cega=673) PROMYELOCYTES - ABS (DIFF) (BEAKER) (test 0.13 K/ L 0.00-0.00 gtur=083) BANDS-ABS (DIFF) (BEAKER) (test nmkf=8966) 0.9 K/ L 0.0-0.8 MYELOCYTES-ABS (DIFF) (BEAKER) (test txiu=3183) 0.13 K/ L 0.00-0.00 TOTAL COUNTED (BEAKER) (test mvvs=6589) 100 BANDS + SEGMENTED NEUTROPHILS (BEAKER) (test 11.44 iwzc=5753) WBC MORPHOLOGY (BEAKER) (test died=106) Normal RBC MORPHOLOGY (BEAKER) (test oiuh=327) Normal LARGE PLT(BEAKER) (test zftd=0553) Present POCT-GLUCOSE [id number] 05:56:00 Test Item Value Reference Range Comments POC-GLUCOSE METER (BEAKER) 207 mg/dL 70-110 TESTED AT [address] (test xidk=2289) [place] [address] POCT-GLUCOSE [id number] 05:56:00 Test Item Value Reference Range Comments POC-GLUCOSE METER (BEAKER) 233 mg/dL 70-110 TESTED AT [address] (test enow=9927) [place] [address] RAD, CHEST, 1 VIEW, NON [id number] 05:42:00Reason for exam:-> IntubatedShould this be performed at the bedside?->YesFINAL REPORT Comparison exam: 01/28/2017 No pneumothorax, focal pulmonary consolidation, or significant pleural effusion. Stable cardiomediastinal contours. Appropriate position of the support hardware. Signed: David Romo Verified Date/Time: 01/29/2017 05:42:39 Reading Location: [address] Ortho Consult Reading Room POCT-GLUCOSE [id number] 05:33:00 Test Item Value Reference Range Comments POC-GLUCOSE METER (BEAKER) 229 mg/dL 70-110 TESTED AT [address] (test gqhb=6547) [place] [id number] BLOOD [id number] 05:01:00 Test Item Value Reference Range Comments CULTURE (BEAKER) (test zfmm=5597) No growth in 5 days BLOOD GAS, [id number] 04:38:00 Test Item Value Reference Range Comments PH ARTERIAL (BEAKER) (test mkfq=597) 7.41 7.35-7.45 PCO2 ARTERIAL (BEAKER) (test kudz=920) 52 mmHg 35-45 PO2 ARTERIAL (BEAKER) (test chrs=450) 189 mmHg 80-90 O2 SATURATION ARTERIAL (BEAKER) (test nzhp=099) 99.3 % 96.0-97.0 HCO3 ARTERIAL (BEAKER) (test gofx=111) 32 mmol/L 21-29 BASE EXCESS ARTERIAL (BEAKER) (test sdfu=263) 6.1 mmol/L -2.0-3.0 PATIENT TEMPERATURE (BEAKER) (test zkkw=9708) 37.5 C FIO2 (BEAKER) (test ario=4483) 40.0 % CALCIUM, [id number] 04:36:00 Test Item Value Reference Range Comments CALCIUM IONIZED (BEAKER) (test gntu=652) 1.06 mmol/L 1.12-1.27 PH, BLOOD (BEAKER) (test sxdn=9998) 7.42 [id number] 04:18:00 Test Item Value Reference Range Comments MAGNESIUM (BEAKER) (test 2.0 mg/dL 1.6-2.6 Specimen slightly hemolyzed drxc=101) [id number] 04:18:00 Test Item Value Reference Range Comments PHOSPHORUS (BEAKER) (test 2.4 mg/dL 2.3-4.7 Specimen slightly hemolyzed wiug=358) BASIC METABOLIC [id number] 04:18:00 Test Item Value Reference Range Comments SODIUM (BEAKER) (test 143 meq/L 136-145 nqnm=706) POTASSIUM (BEAKER) (test 3.7 meq/L 3.5-5.1 Specimen slightly dnum=184) hemolyzed CHLORIDE (BEAKER) (test 106 meq/L 98-107 deqg=369) CO2 (BEAKER) (test 28 meq/L 22-29 qlzn=230) BLOOD UREA NITROGEN 21 mg/dL 7-21 (BEAKER) (test oouq=282) CREATININE (BEAKER) (test 1.11 mg/dL 0.57-1.25 Specimen slightly scpb=379) hemolyzed GLUCOSE RANDOM (BEAKER) 243 mg/dL 70-105 (test ythg=020) CALCIUM (BEAKER) (test 8.2 mg/dL 8.4-10.2 cehs=703) EGFR (BEAKER) (test 68 mL/min/1.73 sq m ESTIMATED GFR IS NOT scin=0748) ACCURATE CREATININE CLEARANCE IN PREDICTING GLOMERULAR FILTRATION RATE. ESTIMATED GFR IS NOT APPLICABLE FOR DIALYSIS PATIENTS. PROTHROMBIN [id number] 04:03:00 Test Item Value Reference Range Comments PROTIME (BEAKER) (test zgpy=723) 15.8 seconds 11.7-14.7 INR (BEAKER) (test bedu=191) 1.3 <=5.9 RECOMMENDED COUMADIN/WARFARIN INR THERAPY RANGESSTANDARD DOSE: 2.0 - 3.0 Includes: PROPHYLAXIS forvenous thrombosis, systemic embolization; TREATMENT for venous thrombosis and/or pulmonary embolus.HIGH RISK: Target INR is 2.5-3.5 for patients with mechanical heart valves.[id number] 02:06:00 Test Item Value Reference Range Comments PARTIAL THROMBOPLASTIN TIME (BEAKER) (test 63.8 seconds 22.5-36.0 alhs=907) POCT-GLUCOSE [id number] 01:56:00 Test Item Value Reference Range Comments POC-GLUCOSE METER (BEAKER) 229 mg/dL 70-110 TESTED AT [address] (test cnsr=7568) [place] [id number] POCT-GLUCOSE [id number] 01:31:00 Test Item Value Reference Range Comments POC-GLUCOSE METER (BEAKER) 259 mg/dL 70-110 TESTED AT [address] (test vami=2767) [place] [id number] POCT-GLUCOSE [id number] 23:03:00 Test Item Value Reference Range Comments POC-GLUCOSE METER (BEAKER) 224 mg/dL 70-110 TESTED AT [address] (test bsoz=0094) [place] [address] POCT-GLUCOSE [id number] 22:13:00 Test Item Value Reference Range Comments POC-GLUCOSE METER (BEAKER) 185 mg/dL 70-110 TESTED AT [address] (test btyx=4481) [place] [id number] POCT-GLUCOSE [id number] 21:03:00 Test Item Value Reference Range Comments POC-GLUCOSE METER (BEAKER) 164 mg/dL 70-110 TESTED AT [address] (test usdo=2070) [facility] [address] POCT-GLUCOSE [id number] 20:17:00 Test Item Value Reference Range Comments POC-GLUCOSE METER (BEAKER) 146 mg/dL 70-110 TESTED AT [address] (test crac=7717) [facility] [address] [id number] 17:40:00 Test Item Value Reference Range Comments PARTIAL THROMBOPLASTIN TIME (BEAKER) (test 68.9 seconds 22.5-36.0 cprj=896) [id number] 17:31:00 Test Item Value Reference Range Comments TRIGLYCERIDES (BEAKER) (test saea=994) 91 mg/dL TRIGLYCERIDE REFERENCE RANGELow Risk <150Borderline Risk 150-199High Risk 200-499Very High Risk>=500RAD, CHEST, 1 VIEW, NON [id number] 17:26: 00Reason for exam:->line placement after pulling [...] MDReport Verified Date/Time: 01/28/2017 17:26:47 Reading Location: [facility] C013W Consult Reading Room POCT- GLUCOSE [id number] 16:45:00 Test Item Value Reference Range Comments POC-GLUCOSE METER (BEAKER) 90 mg/dL 70-110 TESTED AT [address] (test vwlb=6475) [place] [address] RAD, CHEST, 1 VIEW, NON [id number] 16:15:00Reason for exam:->pulled back central line Should [...] consolidation or atelectasis. No pneumothorax. Signed: Mac Santamariaeport Verified Date/Time: 05/2016 16:15:11 Reading Location: [address] Consult Reading Room POCT-GLUCOSE [id number] 16:14:00 Test Item Value Reference Range Comments POC-GLUCOSE METER ([place]) 88 mg/dL 70-110 TESTED AT [address] (test qmxm=0224) [place] [address] POCT-GLUCOSE [id number] 14:35:00 Test Item Value Reference Range Comments POC-GLUCOSE METER (BEAKER) 92 mg/dL 70-110 TESTED AT [address] (test sxui=6237) [place] [address] CLOSTRIDIUM DIFFICILE TOXIN [id number] 13:58:00 Test Item Value Reference Range Comments CLOSTRIDIUM DIFFICILE TOXIN, PCR ([place]) (test Not Detected Not Detected gjpo=3689) This qualitative real-time polymerase chain reaction assay [...] is not recommended.SURGICALLY OBTAINED CULTURE + GRAM [id number] 13:00:00 Test Item Value Reference Range Comments CULTURE ([place]) (test stnb=2893) Amikacin (test code=1) Ampicillin + Sulbactam (test code=6) Aztreonam (test code=32) Cefepime (test code=51) Cefoxitin (test code=68) Ceftazidime (test code=27) Ceftriaxone (test code=52) Ertapenem (test code=38) Gentamicin (test code=18) Levofloxacin (test code=22) Meropenem (test code=34) Nitrofurantoin (test code=23) Piperacillin + Tazobactam (test code=29) Tetracycline (test code=2) Tobramycin (test code=25) Trimethoprim + Sulfamethoxazole (test code=47) CULTURE (Jiuxian.comAKER) (test ENTEROCOCCUS SPECIES 3+ Escherichia coli czeq=8073) Ampicillin (test code=26) Linezolid (test code=40) Vancomycin (test code=13) CULTURE (BEAKER) (test 2+ Enterococcus auyt=1623) species CULTURE (BEAKER) (test PSEUDOMONAS <1+ Viridans pwom=7095) AERUGINOSA Streptococcus Amikacin (test code=1) Susceptible 0-16 , Resistant <0 or >16 Aztreonam (test code=32) Susceptible 0-8 , Resistant <0 or >8 Cefepime (test code=51) Susceptible 0-8 , Resistant <0 or >8 Ceftazidime (test Susceptible 0-8 , code=27) Resistant <0 or >8 Ciprofloxacin (test Susceptible 0-1 , code=7) Resistant <0 or >1 Doripenem (test hjhn=980) Susceptible 0-2 , Resistant <0 or >2 [...] or >4 CULTURE (BEAKER) (test 2+ Pseudomonas zaem=3536) aeruginosa GRAM STAIN RESULT <1+ WBCs (BEAKER) (test wzxg=8925) GRAM STAIN RESULT <1+ gram negative (BEAKER) (test rods ipsf=220497) GRAM STAIN RESULT <1+ gram positive (BEAKER) (test rods fcql=947288) GRAM STAIN RESULT <1+ gram positive (BEAKER) (test cocci in chains uupd=876731) [id number] 12:14:00 Test Item Value Reference Range Comments PARTIAL THROMBOPLASTIN TIME (BEAKER) (test 53.3 seconds 22.5-36.0 yspj=627) POCT-GLUCOSE [id number] 11:49:00 Test Item Value Reference Range Comments POC-GLUCOSE METER (BEAKER) 152 mg/dL 70-110 TESTED AT [address] (test rfng=8298) [facility] [address] OCCULT BLOOD, [id number] 10:54:00 Test Item Value Reference Range Comments FECAL OCCULT BLOOD (BEAKER) (test jjof=709) Negative Negative POCT-GLUCOSE [id number] 08:00:00 Test Item Value Reference Range Comments POC-GLUCOSE METER (BEAKER) 159 mg/dL 70-110 TESTED AT [address] (test hfxr=2582) [facility] [address] POCT-GLUCOSE [id number] 07:29:00 Test Item Value Reference Range Comments POC-GLUCOSE METER (BEAKER) 137 mg/dL 70-110 TESTED AT [address] (test wrxi=4160) [facility] [address] POCT-GLUCOSE [id number] 06:34:00 Test Item Value Reference Range Comments POC-GLUCOSE METER (BEAKER) 144 mg/dL 70-110 TESTED AT [address] (test lmwl=4617) [place] [id number] POCT-GLUCOSE [id number] 05:39:00 Test Item Value Reference Range Comments POC-GLUCOSE METER (BEAKER) 150 mg/dL 70-110 TESTED AT [facility] [address] (test uszt=0855) [place] [address] BLOOD GAS, [id number] 05:25:00 Test Item Value Reference Range Comments PH ARTERIAL (BEAKER) (test dqid=617) 7.45 7.35-7.45 PCO2 ARTERIAL (BEAKER) (test gsvp=223) 39 mmHg 35-45 PO2 ARTERIAL (BEAKER) (test xwen=752) 160 mmHg 80-90 O2 SATURATION ARTERIAL (BEAKER) (test onfx=697) 99.1 % 96.0-97.0 HCO3 ARTERIAL (BEAKER) (test pcxi=301) 26 mmol/L 21-29 BASE EXCESS ARTERIAL (BEAKER) (test ldfs=838) 2.0 mmol/L -2.0-3.0 PATIENT TEMPERATURE (BEAKER) (test klys=6857) 37.1 C FIO2 (BEAKER) (test vxkn=3342) 40.0 % CALCIUM, [id number] 05:10:00 Test Item Value Reference Range Comments CALCIUM IONIZED (BEAKER) (test skwg=834) 1.13 mmol/L 1.12-1.27 PH, BLOOD (BEAKER) (test oucj=9329) 7.40 [id number] 04:30:00 Test Item Value Reference Range Comments PHOSPHORUS (BEAKER) (test savw=603) 2.0 mg/dL 2.3-4.7 [id number] 04:30:00 Test Item Value Reference Range Comments MAGNESIUM (BEAKER) (test geue=421) 2.2 mg/dL 1.6-2.6 BASIC METABOLIC [id number] 04:30:00 Test Item Value Reference Range Comments SODIUM (BEAKER) (test 139 meq/L 136-145 bcft=710) POTASSIUM (BEAKER) (test 3.8 meq/L 3.5-5.1 divk=818) CHLORIDE (BEAKER) (test 104 meq/L 98-107 gbxv=577) CO2 (BEAKER) (test 29 meq/L 22-29 fljm=714) BLOOD UREA NITROGEN 21 mg/dL 7-21 (BEAKER) (test fqms=120) CREATININE (BEAKER) (test 1.04 mg/dL 0.57-1.25 pzsl=370) GLUCOSE RANDOM (BEAKER) 163 mg/dL 70-105 (test omzo=034) CALCIUM (BEAKER) (test 8.4 mg/dL 8.4-10.2 gqjo=195) EGFR (BEAKER) (test 73 mL/min/1.73 sq m ESTIMATED GFR IS NOT cucw=9233) ACCURATE CREATININE CLEARANCE IN PREDICTING GLOMERULAR FILTRATION RATE. ESTIMATED GFR IS NOT APPLICABLE FOR DIALYSIS PATIENTS. POCT-GLUCOSE [id number] 04:26:00 Test Item Value Reference Range Comments POC-GLUCOSE METER (BEAKER) 159 mg/dL 70-110 TESTED AT [address] (test rzkj=9775) [facility] [address] POCT-GLUCOSE [id number] 04:26:00 Test Item Value Reference Range Comments POC-GLUCOSE METER (BEAKER) 185 mg/dL 70-110 TESTED AT [address] (test ihkw=6479) [place] [id number] POCT-GLUCOSE [id number] 04:26:00 Test Item Value Reference Range Comments POC-GLUCOSE METER (BEAKER) 174 mg/dL 70-110 TESTED AT [address] (test mibx=8034) [facility] [address] [id number] 04:16:00 Test Item Value Reference Range Comments PARTIAL THROMBOPLASTIN TIME (BEAKER) (test 47.9 seconds 22.5-36.0 sakh=071) PROTHROMBIN [id number] 04:15:00 Test Item Value Reference Range Comments PROTIME (BEAKER) (test qqba=938) 15.1 seconds 11.7-14.7 INR (BEAKER) (test ukgk=367) 1.2 <=5.9 RECOMMENDED COUMADIN/WARFARIN INR THERAPY RANGESSTANDARD DOSE: 2.0 - 3.0 Includes: PROPHYLAXIS forvenous thrombosis, systemic embolization; TREATMENT for venous thrombosis and/or pulmonary embolus.HIGH RISK: Target INR is 2.5-3.5 for patients with mechanical heart valves.CBC W/PLT COUNT & AUTO [id number] 04:11:00 Test Item Value Reference Range Comments WHITE BLOOD CELL COUNT (BEAKER) (test sgej=039) 10.5 K/ L 3.5-10.5 RED BLOOD CELL COUNT (BEAKER) (test rouz=027) 3.88 M/ L 4.63-6.08 HEMOGLOBIN (BEAKER) (test owom=097) 11.3 GM/DL 13.7-17.5 HEMATOCRIT (BEAKER) (test sxxd=775) 35.3 % 40.1-51.0 MEAN CORPUSCULAR VOLUME (BEAKER) (test jjtc=447) 91.0 fL 79.0-92.2 MEAN CORPUSCULAR HEMOGLOBIN (BEAKER) (test 29.1 pg 25.7-32.2 fooe=329) MEAN CORPUSCULAR HEMOGLOBIN CONC (BEAKER) (test 32.0 GM/DL 32.3-36.5 hhdy=630) RED CELL DISTRIBUTION WIDTH (BEAKER) (test 14.7 % 11.6-14.4 amot=957) PLATELET COUNT (BEAKER) (test cvzo=050) 164 K/CU MM 150-450 MEAN PLATELET VOLUME (BEAKER) (test koft=508) 10.7 fL 9.4-12.4 NUCLEATED RED BLOOD CELLS (BEAKER) (test 0 /100 WBC 0-0 kczv=405) NEUTROPHILS RELATIVE PERCENT (BEAKER) (test 86 % mnvh=111) LYMPHOCYTES RELATIVE PERCENT (BEAKER) (test 6 % ixqj=592) MONOCYTES RELATIVE PERCENT (BEAKER) (test 6 % wxau=275) EOSINOPHILS RELATIVE PERCENT (BEAKER) (test 0 % acxx=362) BASOPHILS RELATIVE PERCENT (BEAKER) (test 1 % hjus=479) NEUTROPHILS ABSOLUTE COUNT (BEAKER) (test 8.99 K/ L 1.78-5.38 ystx=493) LYMPHOCYTES ABSOLUTE COUNT (BEAKER) (test 0.58 K/ L 1.32-3.57 lceo=374) MONOCYTES ABSOLUTE COUNT (BEAKER) (test 0.64 K/ L 0.30-0.82 yhjf=549) EOSINOPHILS ABSOLUTE COUNT (BEAKER) (test 0.01 K/ L 0.04-0.54 cqga=090) BASOPHILS ABSOLUTE COUNT (BEAKER) (test 0.05 K/ L 0.01-0.08 pdfm=277) IMMATURE GRANULOCYTES-RELATIVE PERCENT (BEAKER) 2 % 0-1 (test gijy=9072) RAD, CHEST, 1 VIEW, NON [id number] 03:49:00Reason for exam:-> IntubatedShould this be performed at the bedside?->YesFINAL REPORT CLINICAL INDICATION: Support lines. Comparison: 01/27/2017 The cardiomediastinal contours are stable. The lung volumes remain low. Central pulmonary vascular congestion and bilateral parenchymal and pleural opacities are unchanged. There is no pneumothorax. Support lines are stable. Signed: Nilesh Sheets MDReport Verified Date/Time: 01/28/2017 03:49:34 Reading Location : [address] Reading Room ANAEROBI [id number] 03:23:00 Test Item Value Reference Range Comments CULTURE (BEAKER) (test nruf=5157) 2+ Bacteroides fragilis group POCT-GLUCOSE [id number] 23:48:00 Test Item Value Reference Range Comments POC-GLUCOSE METER (BEAKER) 161 mg/dL 70-110 TESTED AT [address] (test vcdt=7767) [facility] [address] POCT-GLUCOSE [id number] 21:46:00 Test Item Value Reference Range Comments POC-GLUCOSE METER (BEAKER) 125 mg/dL 70-110 TESTED AT [address] (test ptaz=5624) [place] [id number] POCT-GLUCOSE [id number] 18:56:00 Test Item Value Reference Range Comments POC-GLUCOSE METER (BEAKER) 119 mg/dL 70-110 TESTED AT [address] (test ixco=8476) [facility] [address] POCT-GLUCOSE [id number] 16:53:00 Test Item Value Reference Range Comments POC-GLUCOSE METER (BEAKER) 113 mg/dL 70-110 TESTED AT [address] (test gixz=7613) [place] [id number] POCT-GLUCOSE [id number] 14:45:00 Test Item Value Reference Range Comments POC-GLUCOSE METER (BEAKER) 123 mg/dL 70-110 TESTED AT [address] (test omff=0761) [facility] [address] POCT-GLUCOSE [id number] 13:57:00 Test Item Value Reference Range Comments POC-GLUCOSE METER (BEAKER) 112 mg/dL 70-110 TESTED AT [address] (test lfyo=7526) [place] [id number] POCT-GLUCOSE [id number] 12:37:00 Test Item Value Reference Range Comments POC-GLUCOSE METER (BEAKER) 109 mg/dL 70-110 TESTED AT [address] (test ngsn=8533) [place] [id number] POCT-GLUCOSE [id number] 11:28:00 Test Item Value Reference Range Comments POC-GLUCOSE METER (BEAKER) 130 mg/dL 70-110 TESTED AT [address] (test pnfb=2739) [place] [address] RAD, ABDOMEN/KUB, 1 VIEW [id number] 10:55:00Reason for exam:->DHT placementFINAL REPORT Abdomen. HISTORY: [...] MDReport Verified Date/Time: 01/27/2017 10:55:24 Reading Location: [address] Body Reading Room POCT-GLUCOSE [id number] 10:24:00 Test Item Value Reference Range Comments POC-GLUCOSE METER (BEAKER) 125 mg/dL 70-110 TESTED AT [address] (test tpln=6559) [place] [id number] POCT-GLUCOSE [id number] 09:11:00 Test Item Value Reference Range Comments POC-GLUCOSE METER (BEAKER) 147 mg/dL 70-110 TESTED AT [address] (test ofpf=3532) [place] [id number] POCT-GLUCOSE [id number] 07:52:00 Test Item Value Reference Range Comments POC-GLUCOSE METER (BEAKER) 160 mg/dL 70-110 TESTED AT [address] (test qflu=1526) [place] [address] RAD, CHEST, 1 VIEW, NON [id number] 06:47:00Reason for exam:-> IntubatedShould this be performed [...] Verified Date/Time: 01/27/2017 06:47: 41 Reading Location: [address] Body Reading Room POCT-GLUCOSE [id number] 05 :15:00 Test Item Value Reference Range Comments POC-GLUCOSE METER (BEAKER) 130 mg/dL 70-110 TESTED AT [address] (test wsxl=3481) [facility] [address] POCT-GLUCOSE [id number] 03:07:00 Test Item Value Reference Range Comments POC-GLUCOSE METER (BEAKER) 132 mg/dL 70-110 TESTED AT [address] (test hgcx=5990) [facility] [address] [id number] 02:46:00 Test Item Value Reference Range Comments PHOSPHORUS (BEAKER) (test qxyn=099) 1.7 mg/dL 2.3-4.7 [id number] 02:46:00 Test Item Value Reference Range Comments MAGNESIUM (BEAKER) (test uoru=367) 1.9 mg/dL 1.6-2.6 BASIC METABOLIC [id number] 02:46:00 Test Item Value Reference Range Comments SODIUM (BEAKER) (test 138 meq/L 136-145 ofat=179) POTASSIUM (BEAKER) (test 3.9 meq/L 3.5-5.1 ovws=243) CHLORIDE (BEAKER) (test 108 meq/L 98-107 nnwi=372) CO2 (BEAKER) (test 24 meq/L 22-29 vova=843) BLOOD UREA NITROGEN 22 mg/dL 7-21 (BEAKER) (test txpp=439) CREATININE (BEAKER) (test 0.84 mg/dL 0.57-1.25 vmed=850) GLUCOSE RANDOM (BEAKER) 138 mg/dL 70-105 (test eeqw=142) CALCIUM (BEAKER) (test 8.1 mg/dL 8.4-10.2 tezx=868) EGFR (BEAKER) (test 94 mL/min/1.73 sq m ESTIMATED GFR IS NOT hnwo=3846) ACCURATE CREATININE CLEARANCE IN PREDICTING GLOMERULAR FILTRATION RATE. ESTIMATED GFR IS NOT APPLICABLE FOR DIALYSIS PATIENTS. CBC W/PLT COUNT & AUTO [id number] 02:44:00 Test Item Value Reference Range Comments WHITE BLOOD CELL COUNT (BEAKER) (test qeag=880) 5.2 K/ L 3.5-10.5 RED BLOOD CELL COUNT (BEAKER) (test isjc=191) 3.61 M/ L 4.63-6.08 HEMOGLOBIN (BEAKER) (test cido=685) 10.7 GM/DL 13.7-17.5 HEMATOCRIT (BEAKER) (test gkof=323) 32.5 % 40.1-51.0 MEAN CORPUSCULAR VOLUME (BEAKER) (test sjnl=090) 90.0 fL 79.0-92.2 MEAN CORPUSCULAR HEMOGLOBIN (BEAKER) (test 29.6 pg 25.7-32.2 rvrl=378) MEAN CORPUSCULAR HEMOGLOBIN CONC (BEAKER) (test 32.9 GM/DL 32.3-36.5 wvpp=070) RED CELL DISTRIBUTION WIDTH (BEAKER) (test 14.3 % 11.6-14.4 oyrm=421) PLATELET COUNT (BEAKER) (test wdqg=686) 111 K/CU MM 150-450 MEAN PLATELET VOLUME (BEAKER) (test oxqv=203) 10.4 fL 9.4-12.4 NUCLEATED RED BLOOD CELLS (BEAKER) (test 0 /100 WBC 0-0 nask=630) NEUTROPHILS RELATIVE PERCENT (BEAKER) (test 88 % bnqv=147) LYMPHOCYTES RELATIVE PERCENT (BEAKER) (test 5 % sxcn=629) MONOCYTES RELATIVE PERCENT (BEAKER) (test 6 % vsna=733) EOSINOPHILS RELATIVE PERCENT (BEAKER) (test 0 % lpvv=176) BASOPHILS RELATIVE PERCENT (BEAKER) (test 0 % rsfd=439) NEUTROPHILS ABSOLUTE COUNT (BEAKER) (test 4.54 K/ L 1.78-5.38 mwml=291) LYMPHOCYTES ABSOLUTE COUNT (BEAKER) (test 0.25 K/ L 1.32-3.57 vegs=236) MONOCYTES ABSOLUTE COUNT (BEAKER) (test 0.32 K/ L 0.30-0.82 hwzw=130) EOSINOPHILS ABSOLUTE COUNT (BEAKER) (test 0.00 K/ L 0.04-0.54 tbmt=772) BASOPHILS ABSOLUTE COUNT (BEAKER) (test 0.01 K/ L 0.01-0.08 ijcw=133) IMMATURE GRANULOCYTES-RELATIVE PERCENT (BEAKER) 1 % 0-1 (test wuli=9270) [id number] 02:42:00 Test Item Value Reference Range Comments PROTIME (BEAKER) (test qpnx=960) 16.5 seconds 11.7-14.7 INR (BEAKER) (test dpss=662) 1.3 <=5.9 PARTIAL THROMBOPLASTIN TIME (BEAKER) (test 80.0 seconds 22.5-36.0 yuzn=269) RECOMMENDED COUMADIN/WARFARIN INR THERAPY RANGESSTANDARD DOSE: 2.0 - 3.0 Includes: PROPHYLAXIS forvenous thrombosis, systemic embolization; TREATMENT for venous thrombosis and/or pulmonary embolus.HIGH RISK: Target INR is 2.5-3.5 for patients with mechanical heart valves.BLOOD GAS, [id number] 02:40:00 Test Item Value Reference Range Comments PH ARTERIAL (BEAKER) (test dcnu=682) 7.48 7.35-7.45 PCO2 ARTERIAL (BEAKER) (test oyir=818) 39 mmHg 35-45 PO2 ARTERIAL (BEAKER) (test yxgq=318) 155 mmHg 80-90 O2 SATURATION ARTERIAL (BEAKER) (test csfy=343) 99.1 % 96.0-97.0 HCO3 ARTERIAL (BEAKER) (test ldzi=236) 28 mmol/L 21-29 BASE EXCESS ARTERIAL (BEAKER) (test gwna=333) 4.4 mmol/L -2.0-3.0 PATIENT TEMPERATURE (BEAKER) (test layo=5864) 37.2 C FIO2 (BEAKER) (test woba=9431) 60.0 % CALCIUM, [id number] 02:40:00 Test Item Value Reference Range Comments CALCIUM IONIZED (BEAKER) (test xzvr=635) 1.09 mmol/L 1.12-1.27 PH, BLOOD (BEAKER) (test itiz=6811) 7.48 PROTHROMBIN [id number] 02:40:00 Test Item Value Reference Range Comments PROTIME (BEAKER) (test iool=621) 16.5 seconds 11.7-14.7 INR (BEAKER) (test uqqa=574) 1.3 <=5.9 RECOMMENDED COUMADIN/WARFARIN INR THERAPY RANGESSTANDARD DOSE: 2.0 - 3.0 Includes: PROPHYLAXIS forvenous thrombosis, systemic embolization; TREATMENT for venous thrombosis and/or pulmonary embolus.HIGH RISK: Target INR is 2.5-3.5 for patients with mechanical heart valves.POCT-GLUCOSE [id number] 02:09:00 Test Item Value Reference Range Comments POC-GLUCOSE METER (BEAKER) 134 mg/dL 70-110 TESTED AT [address] (test kbcp=2917) [facility] [address] TSH/FREE T4 IF [id number] 01:36:00 Test Item Value Reference Range Comments THYROID STIMULATING HORMONE (BEAKER) (test 2.06 uIU/mL 0.35-4.94 vgme=402) POCT-GLUCOSE [id number] 01:16:00 Test Item Value Reference Range Comments POC-GLUCOSE METER (BEAKER) 140 mg/dL 70-110 TESTED AT [address] (test sxxv=2749) [facility] [address] CBC W/PLT COUNT & AUTO [id number] 01:00:00 Test Item Value Reference Range Comments WHITE BLOOD CELL COUNT (BEAKER) (test xhba=610) 5.8 K/ L 3.5-10.5 RED BLOOD CELL COUNT (BEAKER) (test ljsm=039) 3.98 M/ L 4.63-6.08 HEMOGLOBIN (BEAKER) (test hdsj=788) 11.8 GM/DL 13.7-17.5 HEMATOCRIT (BEAKER) (test ifck=179) 35.7 % 40.1-51.0 MEAN CORPUSCULAR VOLUME (BEAKER) (test xbir=604) 89.7 fL 79.0-92.2 MEAN CORPUSCULAR HEMOGLOBIN (BEAKER) (test 29.6 pg 25.7-32.2 rked=868) MEAN CORPUSCULAR HEMOGLOBIN CONC (BEAKER) (test 33.1 GM/DL 32.3-36.5 aftk=251) RED CELL DISTRIBUTION WIDTH (BEAKER) (test 14.2 % 11.6-14.4 gtzh=072) PLATELET COUNT (BEAKER) (test odeu=397) 128 K/CU MM 150-450 MEAN PLATELET VOLUME (BEAKER) (test ggox=042) 10.7 fL 9.4-12.4 NUCLEATED RED BLOOD CELLS (BEAKER) (test 0 /100 WBC 0-0 mskh=170) NEUTROPHILS RELATIVE PERCENT (BEAKER) (test 88 % thdj=395) LYMPHOCYTES RELATIVE PERCENT (BEAKER) (test 5 % jugm=389) MONOCYTES RELATIVE PERCENT (BEAKER) (test 6 % zlex=305) EOSINOPHILS RELATIVE PERCENT (BEAKER) (test 0 % lrya=770) BASOPHILS RELATIVE PERCENT (BEAKER) (test 0 % mdso=286) NEUTROPHILS ABSOLUTE COUNT (BEAKER) (test 5.09 K/ L 1.78-5.38 tlmu=815) LYMPHOCYTES ABSOLUTE COUNT (BEAKER) (test 0.26 K/ L 1.32-3.57 tdis=290) MONOCYTES ABSOLUTE COUNT (BEAKER) (test 0.36 K/ L 0.30-0.82 skbx=941) EOSINOPHILS ABSOLUTE COUNT (BEAKER) (test 0.01 K/ L 0.04-0.54 mgwc=429) BASOPHILS ABSOLUTE COUNT (BEAKER) (test 0.01 K/ L 0.01-0.08 dtea=994) IMMATURE GRANULOCYTES-RELATIVE PERCENT (BEAKER) 1 % 0-1 (test qmxv=8708) CREATINE KINASE (CK), TOTAL AND [id number] 00:24:00 Test Item Value Reference Range Comments CREATINE KINASE TOTAL (BEAKER) (test xfqg=627) 2022 U/L 29-200 CREATINE KINASE-MB (BEAKER) (test ojqi=718) 4.2 ng/mL 0.0-6.6 CREATINE KINASE-MB INDEX (BEAKER) (test iicp=525) 0.2 % CK-MB Reference Range:<6.7 Normal6.7-10.0 Borderline>10.0 AbnormalTROPONIN [id number] 00:24:00 Test Item Value Reference Range Comments TROPONIN I (BEAKER) (test udfn=647) < ng/mL 0.00-0.03 Troponin I (TnI) levels [...] failure, acidosis, acute neurological disease, and persistent tachyarrhythmia.[id number] 00:17:00 Test Item Value Reference Range Comments MAGNESIUM (BEAKER) (test mjsj=383) 2.2 mg/dL 1.6-2.6 BASIC METABOLIC [id number] 00:17:00 Test Item Value Reference Range Comments SODIUM (BEAKER) (test 137 meq/L 136-145 ruvm=608) POTASSIUM (BEAKER) (test 4.0 meq/L 3.5-5.1 klhs=953) CHLORIDE (BEAKER) (test 105 meq/L 98-107 mymd=466) CO2 (BEAKER) (test 24 meq/L 22-29 qcgf=872) BLOOD UREA NITROGEN 22 mg/dL 7-21 (BEAKER) (test wrvo=617) CREATININE (BEAKER) (test 0.91 mg/dL 0.57-1.25 dzlj=304) GLUCOSE RANDOM (BEAKER) 147 mg/dL 70-105 (test dnnx=279) CALCIUM (BEAKER) (test 8.3 mg/dL 8.4-10.2 wlzc=648) EGFR (BEAKER) (test 86 mL/min/1.73 sq m ESTIMATED GFR IS NOT coud=9287) ACCURATE CREATININE CLEARANCE IN PREDICTING GLOMERULAR FILTRATION RATE. ESTIMATED GFR IS NOT APPLICABLE FOR DIALYSIS PATIENTS. CALCIUM, [id number] 00:17:00 Test Item Value Reference Range Comments CALCIUM IONIZED (BEAKER) (test hkgh=165) 1.11 mmol/L 1.12-1.27 PH, BLOOD (BEAKER) (test amic=7232) 7.44 POCT-GLUCOSE [id number] 00:02:00 Test Item Value Reference Range Comments POC-GLUCOSE METER (BEAKER) 157 mg/dL 70-110 TESTED AT [address] (test ivyt=9815) [facility] [address] POCT-GLUCOSE [id number] 00:02:00 Test Item Value Reference Range Comments POC-GLUCOSE METER (BEAKER) 99 mg/dL 70-110 TESTED AT [address] (test qufm=4239) [facility] [address] POCT-GLUCOSE [id number] 23:09:00 Test Item Value Reference Range Comments POC-GLUCOSE METER (BEAKER) 137 mg/dL 70-110 TESTED AT [address] (test eifk=5830) [facility] [address] POCT-GLUCOSE [id number] 22:13:00 Test Item Value Reference Range Comments POC-GLUCOSE METER (BEAKER) 109 mg/dL 70-110 TESTED AT [address] (test hsfr=1086) [facility] [address] POCT-GLUCOSE [id number] 21:41:00 Test Item Value Reference Range Comments POC-GLUCOSE METER (BEAKER) 97 mg/dL 70-110 TESTED AT [address] (test gptb=1099) [facility] [address] POCT-GLUCOSE [id number] 20:26:00 Test Item Value Reference Range Comments POC-GLUCOSE METER (BEAKER) 120 mg/dL 70-110 TESTED AT [address] (test ldqk=5154) [facility] [address] POCT-GLUCOSE [id number] 19:06:00 Test Item Value Reference Range Comments POC-GLUCOSE METER (BEAKER) 139 mg/dL 70-110 TESTED AT [address] (test cpen=6338) [facility] [address] POCT-GLUCOSE [id number] 18:16:00 Test Item Value Reference Range Comments POC-GLUCOSE METER (BEAKER) 169 mg/dL 70-110 TESTED AT [address] (test ykog=8085) [facility] [address] POCT-GLUCOSE [id number] 16:40:00 Test Item Value Reference Range Comments POC-GLUCOSE METER (BEAKER) 211 mg/dL 70-110 TESTED AT [address] (test hjgh=6416) [facility] [address] POCT-GLUCOSE [id number] 15:48:00 Test Item Value Reference Range Comments POC-GLUCOSE METER (BEAKER) 191 mg/dL 70-110 TESTED AT [facility] [address] [facility] (test hvjf=0167) [facility] [address] [id number] 15:29:00 Test Item Value Reference Range Comments PARTIAL THROMBOPLASTIN TIME (BEAKER) (test 73.9 seconds 22.5-36.0 hutk=365) RAD, ABDOMEN/KUB, 1 VIEW [id number] 14:56:00Reason for exam:->dobbhoff advancementFINAL REPORT ONE VIEW [...] Cochran Verified Date/Time: 01/26/2017 14:56:31 Reading Location: [address] Ortho Consult Reading Room Electronically signed by: SAAD COCHRAN MD on 2016 02:56 PMRAD, ABDOMEN/KUB, 1 VIEW [id number] 14:55:00Reason for exam:-> dobbhoff advancementFINAL REPORT ONE [...] Cochran Verified Date/Time: 01/26/2017 14:55:35 Reading Location: [facility] B1 [id number] Ortho Consult Reading Room POCT-GLUCOSE [id number] 14:28:00 Test Item Value Reference Range Comments POC-GLUCOSE METER (BEAKER) 182 mg/dL 70-110 TESTED AT [facility] [address] [facility] (test uvni=9140) [facility] [address] POCT-GLUCOSE [id number] 13:02:00 Test Item Value Reference Range Comments POC-GLUCOSE METER (BEAKER) 170 mg/dL 70-110 TESTED AT [address] (test zjtg=0361) [place] [id number] RAD, ABDOMEN/KUB, 1 VIEW [id number] 12:46:00Reason for exam:->dobbhuff tube placementFINAL REPORT ONE [...] Verified Date/Time: 01/26/2017 12:46:01 Reading Location : [facility] C013X Ortho Consult Reading Room POCT-GLUCOSE [id number] 12:07:00 Test Item Value Reference Range Comments POC-GLUCOSE METER (BEAKER) 166 mg/dL 70-110 TESTED AT [address] (test tcqm=0560) [place] [id number] POCT-GLUCOSE [id number] 10:35:00 Test Item Value Reference Range Comments POC-GLUCOSE METER (BEAKER) 152 mg/dL 70-110 TESTED AT [address] (test hucr=9247) [place] [id number] POCT-GLUCOSE [id number] 09:19:00 Test Item Value Reference Range Comments POC-GLUCOSE METER (BEAKER) 153 mg/dL 70-110 TESTED AT [address] (test mwpo=3449) [place] [address] [id number] 08:56:00 Test Item Value Reference Range Comments PARTIAL THROMBOPLASTIN TIME (AKER) (test 79.9 seconds 22.5-36.0 wljz=880) CBC W/PLT COUNT & AUTO [id number] 08:34:00 Test Item Value Reference Range Comments WHITE BLOOD CELL COUNT (BEAKER) (test caop=029) 8.2 K/ L 3.5-10.5 RED BLOOD CELL COUNT (BEAKER) (test lxoc=549) 4.20 M/ L 4.63-6.08 HEMOGLOBIN (BEAKER) (test edyy=970) 12.4 GM/DL 13.7-17.5 HEMATOCRIT (BEAKER) (test uics=311) 37.2 % 40.1-51.0 MEAN CORPUSCULAR VOLUME (BEAKER) (test nrth=539) 88.6 fL 79.0-92.2 MEAN CORPUSCULAR HEMOGLOBIN (BEAKER) (test 29.5 pg 25.7-32.2 gvds=692) MEAN CORPUSCULAR HEMOGLOBIN CONC (BEAKER) (test 33.3 GM/DL 32.3-36.5 mehj=891) RED CELL DISTRIBUTION WIDTH (BEAKER) (test 14.3 % 11.6-14.4 tuoq=983) PLATELET COUNT (BEAKER) (test wuwo=756) 152 K/CU MM 150-450 MEAN PLATELET VOLUME (BEAKER) (test uqdt=207) 10.1 fL 9.4-12.4 NUCLEATED RED BLOOD CELLS (BEAKER) (test 0 /100 WBC 0-0 hplr=002) NEUTROPHILS RELATIVE PERCENT (BEAKER) (test 87 % erau=986) LYMPHOCYTES RELATIVE PERCENT (BEAKER) (test 3 % zbbs=747) MONOCYTES RELATIVE PERCENT (BEAKER) (test 7 % uqie=926) EOSINOPHILS RELATIVE PERCENT (BEAKER) (test 0 % uzav=755) BASOPHILS RELATIVE PERCENT (BEAKER) (test 1 % yjyz=312) NEUTROPHILS ABSOLUTE COUNT (BEAKER) (test 7.12 K/ L 1.78-5.38 iwzm=271) LYMPHOCYTES ABSOLUTE COUNT (BEAKER) (test 0.28 K/ L 1.32-3.57 xxgy=141) MONOCYTES ABSOLUTE COUNT (BEAKER) (test 0.55 K/ L 0.30-0.82 yzxd=691) EOSINOPHILS ABSOLUTE COUNT (BEAKER) (test 0.00 K/ L 0.04-0.54 fsnt=678) BASOPHILS ABSOLUTE COUNT (BEAKER) (test 0.05 K/ L 0.01-0.08 scph=692) IMMATURE GRANULOCYTES-RELATIVE PERCENT (BEAKER) 3 % 0-1 (test ibfh=4255) (MANUAL DIFFERENTIAL)2017-01-26 08:34:00 Test Item Value Reference Range Comments NEUTROPHILS - REL (DIFF) (BEAKER) (test orwn=7705) 49 % LYMPHOCYTES - REL (DIFF) (BEAKER) (test bbxf=7973) 7 % MONOCYTES - REL (DIFF) (BEAKER) (test qprx=4214) 6 % EOSINOPHILS - REL (DIFF) (BEAKER) (test xoyg=3720) 1 % METAMYELOCYTES-REL (DIFF) (BEAKER) (test epom=635) 1 % 0-0 BANDS - REL (DIFF) (BEAKER) (test hyxc=5270) 36 % 0-10 NEUTROPHILS - ABS (DIFF) (BEAKER) (test czry=9712) 4.02 K/ L 1.80-8.00 LYMPHOCYTES - ABS (DIFF) (BEAKER) (test srsj=2562) 0.57 K/ L 1.48-4.50 MONOCYTES - ABS (DIFF) (BEAKER) (test kvda=8625) 0.49 K/ L 0.00-1.30 EOSINOPHILS - ABS (DIFF) (BEAKER) (test jyve=9676) 0.08 K/ L 0.00-0.50 METAMYELOCTYES - ABS (DIFF) (BEAKER) (test 0.08 K/ L 0.00-0.00 zqhc=244) BANDS-ABS (DIFF) (BEAKER) (test mzen=0919) 3.0 K/ L 0.0-0.8 TOTAL COUNTED (BEAKER) (test cbwb=4893) 100 BANDS + SEGMENTED NEUTROPHILS (BEAKER) (test 6.97 asyz=6329) WBC MORPHOLOGY (BEAKER) (test arws=063) Normal LARGE PLT(BEAKER) (test esht=6606) Present GIANT PLATELETS (BEAKER) (test znji=616) Present CLUMPED PLATELETS (BEAKER) (test tcdy=232) Present ANISOCYTOSIS (BEAKER) (test qttn=385) 1+ few POIKILOCYTES (BEAKER) (test xwyv=636) 1+ few POCT-GLUCOSE [id number] 08:09:00 Test Item Value Reference Range Comments POC-GLUCOSE METER (BEAKER) 161 mg/dL 70-110 TESTED AT [address] (test giem=0588) [place] [address] POCT-GLUCOSE [id number] 06:27:00 Test Item Value Reference Range Comments POC-GLUCOSE METER (BEAKER) 126 mg/dL 70-110 TESTED AT [address] (test bkox=1691) [place] [id number] RAD, CHEST, 1 VIEW, NON [id number] 04:39:00Reason for exam:-> IntubatedShould this be performed [...] MDReport Verified Date/Time: 01/26/2017 04:39:49 Reading Location: [place] [address] CT Body Reading Room [id number] 04:27:00 Test Item Value Reference Range Comments PHOSPHORUS (BEAKER) (test enmd=921) 2.0 mg/dL 2.3-4.7 [id number] 04:27:00 Test Item Value Reference Range Comments MAGNESIUM (BEAKER) (test nmoh=846) 1.9 mg/dL 1.6-2.6 BASIC METABOLIC [id number] 04:27:00 Test Item Value Reference Range Comments SODIUM (BEAKER) (test 139 meq/L 136-145 ynrz=314) POTASSIUM (BEAKER) (test 3.9 meq/L 3.5-5.1 zyzv=967) CHLORIDE (BEAKER) (test 106 meq/L 98-107 zebq=908) CO2 (BEAKER) (test 25 meq/L 22-29 jrbb=438) BLOOD UREA NITROGEN 23 mg/dL 7-21 (BEAKER) (test ynkg=532) CREATININE (BEAKER) (test 1.07 mg/dL 0.57-1.25 lcdj=411) GLUCOSE RANDOM (BEAKER) 139 mg/dL 70-105 (test owqn=114) CALCIUM (BEAKER) (test 8.1 mg/dL 8.4-10.2 erfc=158) EGFR (BEAKER) (test 71 mL/min/1.73 sq m ESTIMATED GFR IS NOT tqwj=5557) ACCURATE CREATININE CLEARANCE IN PREDICTING GLOMERULAR FILTRATION RATE. ESTIMATED GFR IS NOT APPLICABLE FOR DIALYSIS PATIENTS. POCT-GLUCOSE [id number] 04:21:00 Test Item Value Reference Range Comments POC-GLUCOSE METER (BEAKER) 133 mg/dL 70-110 TESTED AT [facility] [address] [facility] (test lptj=0323) [facility] [address] POCT-GLUCOSE [id number] 04:21:00 Test Item Value Reference Range Comments POC-GLUCOSE METER (BEAKER) 128 mg/dL 70-110 TESTED AT [address] (test iytu=8057) [facility] [address] PROTHROMBIN [id number] 03:58:00 Test Item Value Reference Range Comments PROTIME (BEAKER) (test bykf=626) 17.4 seconds 11.7-14.7 INR (BEAKER) (test vebm=102) 1.4 <=5.9 RECOMMENDED COUMADIN/WARFARIN INR THERAPY RANGESSTANDARD DOSE: 2.0 - 3.0 Includes: PROPHYLAXIS forvenous thrombosis, systemic embolization; TREATMENT for venous thrombosis and/or pulmonary embolus.HIGH RISK: Target INR is 2.5-3.5 for patients with mechanical heart valves.BLOOD GAS, [id number] 03:43:00 Test Item Value Reference Range Comments PH ARTERIAL (BEAKER) (test loyf=203) 7.41 7.35-7.45 PCO2 ARTERIAL (BEAKER) (test cjwv=416) 44 mmHg 35-45 PO2 ARTERIAL (BEAKER) (test jcso=225) 109 mmHg 80-90 O2 SATURATION ARTERIAL (BEAKER) (test srhr=201) 97.8 % 96.0-97.0 HCO3 ARTERIAL (BEAKER) (test jekl=584) 27 mmol/L 21-29 BASE EXCESS ARTERIAL (BEAKER) (test vnks=971) 2.1 mmol/L -2.0-3.0 PATIENT TEMPERATURE (BEAKER) (test cdgx=1065) 38.0 C FIO2 (BEAKER) (test dgra=2921) 70.0 % CALCIUM, [id number] 03:43:00 Test Item Value Reference Range Comments CALCIUM IONIZED (BEAKER) (test suxn=057) 1.07 mmol/L 1.12-1.27 PH, BLOOD (BEAKER) (test mxgp=4833) 7.42 POCT-GLUCOSE [id number] 02:45:00 Test Item Value Reference Range Comments POC-GLUCOSE METER (BEAKER) 128 mg/dL 70-110 TESTED AT [address] (test pzsn=8814) [facility] [address] POCT-GLUCOSE [id number] 02:45:00 Test Item Value Reference Range Comments POC-GLUCOSE METER (BEAKER) 152 mg/dL 70-110 TESTED AT [address] (test fvcn=3119) [place] [address] [id number] 02:16:00 Test Item Value Reference Range Comments PARTIAL THROMBOPLASTIN TIME (BEAKER) (test 71.1 seconds 22.5-36.0 pvku=097) POCT-GLUCOSE [id number] 00:37:00 Test Item Value Reference Range Comments POC-GLUCOSE METER (BEAKER) 177 mg/dL 70-110 TESTED AT [address] (test xysi=7152) [place] [id number] POCT-GLUCOSE [id number] 00:33:00 Test Item Value Reference Range Comments POC-GLUCOSE METER (BEAKER) 170 mg/dL 70-110 TESTED AT [address] (test xlee=4650) [place] [id number] POCT-GLUCOSE [id number] 22:44:00 Test Item Value Reference Range Comments POC-GLUCOSE METER (BEAKER) 196 mg/dL 70-110 TESTED AT [address] (test jwzl=6175) [place] [address] [id number] 20:43:00 Test Item Value Reference Range Comments PARTIAL THROMBOPLASTIN TIME (BEAKER) (test 45.6 seconds 22.5-36.0 sbnz=027) POCT-GLUCOSE [id number] 20:37:00 Test Item Value Reference Range Comments POC-GLUCOSE METER (BEAKER) 150 mg/dL 70-110 TESTED AT [address] (test oofu=6842) [place] [id number] POCT-GLUCOSE [id number] 18:41:00 Test Item Value Reference Range Comments POC-GLUCOSE METER (BEAKER) 130 mg/dL 70-110 TESTED AT [address] (test vczy=9086) [place] [id number] POCT-GLUCOSE [id number] 17:17:00 Test Item Value Reference Range Comments POC-GLUCOSE METER (BEAKER) 147 mg/dL 70-110 TESTED AT [address] (test cepg=1121) [place] [id number] BLOOD GAS, [id number] 15:54:00 Test Item Value Reference Range Comments PH ARTERIAL (BEAKER) (test nviv=309) 7.39 7.35-7.45 PCO2 ARTERIAL (BEAKER) (test zfoo=199) 42 mmHg 35-45 PO2 ARTERIAL (BEAKER) (test rrce=290) 168 mmHg 80-90 O2 SATURATION ARTERIAL (BEAKER) (test zysm=845) 99.1 % 96.0-97.0 HCO3 ARTERIAL (BEAKER) (test mwmq=275) 24 mmol/L 21-29 BASE EXCESS ARTERIAL (BEAKER) (test ctir=342) -0.5 mmol/L -2.0-3.0 PATIENT TEMPERATURE (BEAKER) (test tnml=8842) 38.5 C FIO2 (BEAKER) (test mnzi=6018) 90.0 % POCT-GLUCOSE [id number] 15:02:00 Test Item Value Reference Range Comments POC-GLUCOSE METER (BEAKER) 168 mg/dL 70-110 TESTED AT [address] (test kbnz=5995) [place] [address] [id number] 14:53:00 Test Item Value Reference Range Comments CORTISOL, TOTAL (BEAKER) (test vsvv=1361) 29.8 ug/dL 3.7-19.4 VANCOMYCIN LEVEL, [id number] 14:31:00 Test Item Value Reference Range Comments VANCOMYCIN TROUGH (BEAKER) (test hwud=770) 11.3 ug/mL 10.0-20.0 Do not give scheduled vanc dose until level has returned. Hold dose if level is > 20. Thank you!POCT-GLUCOSE [id number] 13:43:00 Test Item Value Reference Range Comments POC-GLUCOSE METER (BEAKER) 187 mg/dL 70-110 TESTED AT [address] (test pdyx=8173) [place] [address] SPIN/CONCENTRATION [id number] 12:41:00 Test Item Value Reference Range Comments CONCENTRATION CHARGED (BEAKER) (test szhg=4938) Done POCT-GLUCOSE [id number] 11:58:00 Test Item Value Reference Range Comments POC-GLUCOSE METER (BEAKER) 185 mg/dL 70-110 TESTED AT [address] (test bxao=6576) [place] [address] POCT-GLUCOSE [id number] 10:00:00 Test Item Value Reference Range Comments POC-GLUCOSE METER (BEAKER) 192 mg/dL 70-110 TESTED AT [address] (test swck=9333) [place] [id number] BLOOD GAS, [id number] 09:51:00 Test Item Value Reference Range Comments PH ARTERIAL (BEAKER) (test oqcd=466) 7.44 7.35-7.45 PCO2 ARTERIAL (BEAKER) (test qrjn=043) 28 mmHg 35-45 PO2 ARTERIAL (BEAKER) (test bohl=027) 187 mmHg 80-90 O2 SATURATION ARTERIAL (BEAKER) (test vyaq=699) 99.4 % 96.0-97.0 HCO3 ARTERIAL (BEAKER) (test cgca=660) 19 mmol/L 21-29 BASE EXCESS ARTERIAL (BEAKER) (test llbe=879) -4.0 mmol/L -2.0-3.0 PATIENT TEMPERATURE (BEAKER) (test zgus=6026) 37.0 C FIO2 (BEAKER) (test forn=1984) 80.0 % POCT-GLUCOSE [id number] 09:46:00 Test Item Value Reference Range Comments POC-GLUCOSE METER (BEAKER) 161 mg/dL 70-110 TESTED AT [address] (test ljuj=7543) [place] [address] CREATINE KINASE (CK), TOTAL AND [id number] 08:06:00 Test Item Value Reference Range Comments CREATINE KINASE TOTAL (BEAKER) (test guai=444) 372 U/L 29-200 CREATINE KINASE-MB (BEAKER) (test jjzt=519) 1.7 ng/mL 0.0-6.6 CREATINE KINASE-MB INDEX (BEAKER) (test fhbu=850) 0.5 % CK-MB Reference Range:<6.7 Normal6.7-10.0 Borderline>10.0 AbnormalTROPONIN [id number] 08:06:00 Test Item Value Reference Range Comments TROPONIN I (BEAKER) (test oizb=391) 0.02 ng/mL 0.00-0.03 Troponin I (TnI) levels [...] acidosis, acute neurological disease, and persistent tachyarrhythmia.TISSUE [id number] 08:04:00Surgical Pathology Report Case: [id number] Authorizing Provider: Clemente Moreno MD Collected: 01/21/20171827 Ordering Location: [facility] Received: 01/21/2017 1839 SERVICES Pathologist: [...] TUMOR PRESENT Signing Pathologist Direct Phone Line: [phone] signed by Bennie Peoples MD on 01/25/2017 [...] Nodes (pN): pN0: No regional lymph node [id number] x 3Rectal cancerPart A: Received fresh for [...] section of tumor with deepest invasion; 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 It has not been cleared [...] to perform high complexity clinical laboratory testing.POCT-GLUCOSE [id number] 08:00:00 Test Item Value Reference Range Comments POC-GLUCOSE METER (BEAKER) 293 mg/dL 70-110 TESTED AT [facility] [address] [facility] (test pgxz=7627) [facility] [address] POCT-GLUCOSE [id number] 06:22:00 Test Item Value Reference Range Comments POC-GLUCOSE METER (BEAKER) 220 mg/dL 70-110 TESTED AT [facility] [address] [facility] (test qczj=1974) [facility] [address] LACTIC ACID, ARTERIAL, WHOLE [id number] 06:10:00 Test Item Value Reference Range Comments LACTATE BLOOD ARTERIAL (2) 2.4 mmol/L 0.5-2.2 Specimen slightly hemolyzed (BEAKER) (test dpyl=9697) Effective 06/29/2015: Units/Reference Range ChangeNew: 0.5-2.2 mmol/L Previous: 5 -20 mg/dLCALCIUM, [id number] 05:49:00 Test Item Value Reference Range Comments CALCIUM IONIZED (BEAKER) (test cprg=275) 1.14 mmol/L 1.12-1.27 PH, BLOOD (BEAKER) (test fdlj=5229) 7.36 BASIC METABOLIC [id number] 05:30:00 Test Item Value Reference Range Comments SODIUM (BEAKER) (test 139 meq/L 136-145 ybvi=751) POTASSIUM (BEAKER) (test 3.6 meq/L 3.5-5.1 xxwq=776) CHLORIDE (BEAKER) (test 106 meq/L 98-107 xykg=228) CO2 (BEAKER) (test 22 meq/L 22-29 wyuo=796) BLOOD UREA NITROGEN 22 mg/dL 7-21 (BEAKER) (test kcbr=251) CREATININE (BEAKER) (test 1.39 mg/dL 0.57-1.25 ydkt=049) GLUCOSE RANDOM (BEAKER) 219 mg/dL 70-105 (test bmec=984) CALCIUM (BEAKER) (test 8.9 mg/dL 8.4-10.2 bgao=140) EGFR (BEAKER) (test 52 mL/min/1.73 sq m ESTIMATED GFR IS NOT ikgi=0900) ACCURATE CREATININE CLEARANCE IN PREDICTING GLOMERULAR FILTRATION RATE. ESTIMATED GFR IS NOT APPLICABLE FOR DIALYSIS PATIENTS. [id number] 05:24:00 Test Item Value Reference Range Comments PHOSPHORUS (BEAKER) (test uyre=747) 3.4 mg/dL 2.3-4.7 [id number] 05:24:00 Test Item Value Reference Range Comments MAGNESIUM (BEAKER) (test jixn=580) 1.7 mg/dL 1.6-2.6 RAD, CHEST, 1 VIEW, NON [id number] 05:08:00Reason for exam:-> IntubatedShould this be performed at the bedside?->YesFINAL REPORT RAD, CHEST, 1 VIEW, NON DEPT INDICATION: Intubated COMPARISON: Prior day's exam FINDINGS: Portable frontal view of the chest. IMPRESSION: Support Lines: Stable. Lungs and pleura: Low lung volumes, decreased from prior. Bibasilar subsegmental atelectasis. No discernible effusion. No pneumothorax.Heart and mediastinum: Stable contours. Additional findings: None. Signed: JR Nguyen Robert MDRepfoster Verified Date/Time: 01/25/2017 05:08: 59 Reading Location: [address] Body Reading Room CBC W/PLT COUNT & AUTO [id number] 04:52:00 Test Item Value Reference Range Comments WHITE BLOOD CELL COUNT (BEAKER) (test nzoq=593) 5.3 K/ L 3.5-10.5 RED BLOOD CELL COUNT (BEAKER) (test fbvm=391) 4.82 M/ L 4.63-6.08 HEMOGLOBIN (BEAKER) (test nvlk=438) 14.1 GM/DL 13.7-17.5 HEMATOCRIT (BEAKER) (test fjfp=464) 42.6 % 40.1-51.0 MEAN CORPUSCULAR VOLUME (BEAKER) (test xham=659) 88.4 fL 79.0-92.2 MEAN CORPUSCULAR HEMOGLOBIN (BEAKER) (test 29.3 pg 25.7-32.2 uhzv=002) MEAN CORPUSCULAR HEMOGLOBIN CONC (BEAKER) (test 33.1 GM/DL 32.3-36.5 xgij=268) RED CELL DISTRIBUTION WIDTH (BEAKER) (test 13.8 % 11.6-14.4 tnbi=142) PLATELET COUNT (BEAKER) (test dmwb=673) 180 K/CU MM 150-450 MEAN PLATELET VOLUME (BEAKER) (test qcks=940) 10.1 fL 9.4-12.4 NUCLEATED RED BLOOD CELLS (BEAKER) (test 0 /100 WBC 0-0 bxmv=338) NEUTROPHILS RELATIVE PERCENT (BEAKER) (test 79 % cupx=855) LYMPHOCYTES RELATIVE PERCENT (BEAKER) (test 9 % gvds=679) MONOCYTES RELATIVE PERCENT (BEAKER) (test 11 % rlqd=164) EOSINOPHILS RELATIVE PERCENT (BEAKER) (test 0 % majj=705) BASOPHILS RELATIVE PERCENT (BEAKER) (test 0 % tddf=785) NEUTROPHILS ABSOLUTE COUNT (BEAKER) (test 4.20 K/ L 1.78-5.38 vrxh=313) LYMPHOCYTES ABSOLUTE COUNT (BEAKER) (test 0.47 K/ L 1.32-3.57 warv=444) MONOCYTES ABSOLUTE COUNT (BEAKER) (test 0.60 K/ L 0.30-0.82 iowx=906) EOSINOPHILS ABSOLUTE COUNT (BEAKER) (test 0.00 K/ L 0.04-0.54 uaam=432) BASOPHILS ABSOLUTE COUNT (BEAKER) (test 0.02 K/ L 0.01-0.08 diks=358) IMMATURE GRANULOCYTES-RELATIVE PERCENT (BEAKER) 1 % 0-1 (test trqe=3852) POCT-GLUCOSE [id number] 04:18:00 Test Item Value Reference Range Comments POC-GLUCOSE METER (BEAKER) 198 mg/dL 70-110 TESTED AT [address] (test pvof=3639) [facility] [address] POCT-GLUCOSE [id number] 02:58:00 Test Item Value Reference Range Comments POC-GLUCOSE METER (BEAKER) 227 mg/dL 70-110 TESTED AT [address] (test qvce=3690) [facility] [address] POCT-GLUCOSE [id number] 02:58:00 Test Item Value Reference Range Comments POC-GLUCOSE METER (BEAKER) 245 mg/dL 70-110 TESTED AT [address] (test ajat=8263) [place] [id number] BLOOD GAS, [id number] 00:48:00 Test Item Value Reference Range Comments PH ARTERIAL (BEAKER) (test fbma=385) 7.39 7.35-7.45 PCO2 ARTERIAL (BEAKER) (test dmog=790) 37 mmHg 35-45 PO2 ARTERIAL (BEAKER) (test tgff=563) 76 mmHg 80-90 O2 SATURATION ARTERIAL (BEAKER) (test nlsh=750) 95.3 % 96.0-97.0 HCO3 ARTERIAL (BEAKER) (test umlq=737) 22 mmol/L 21-29 BASE EXCESS ARTERIAL (BEAKER) (test swgp=229) -2.5 mmol/L -2.0-3.0 PATIENT TEMPERATURE (BEAKER) (test gysd=6414) 36.9 C FIO2 (BEAKER) (test qkns=7644) 70.0 % POCT-GLUCOSE [id number] 23:57:00 Test Item Value Reference Range Comments POC-GLUCOSE METER (BEAKER) 286 mg/dL 70-110 TESTED AT [address] (test mtdk=7664) [place] [id number] POCT-GLUCOSE [id number] 23:57:00 Test Item Value Reference Range Comments POC-GLUCOSE METER (BEAKER) 276 mg/dL 70-110 TESTED AT [address] (test spzr=9755) [place] [id number] CBC W/PLT COUNT & AUTO [id number] 22:13:00 Test Item Value Reference Range Comments WHITE BLOOD CELL COUNT (BEAKER) (test tziw=643) 5.1 K/ L 3.5-10.5 RED BLOOD CELL COUNT (BEAKER) (test zxzc=188) 4.89 M/ L 4.63-6.08 HEMOGLOBIN (BEAKER) (test dbur=852) 14.4 GM/DL 13.7-17.5 HEMATOCRIT (BEAKER) (test rtbs=202) 44.6 % 40.1-51.0 MEAN CORPUSCULAR VOLUME (BEAKER) (test ziae=045) 91.2 fL 79.0-92.2 MEAN CORPUSCULAR HEMOGLOBIN (BEAKER) (test 29.4 pg 25.7-32.2 wjbs=145) MEAN CORPUSCULAR HEMOGLOBIN CONC (BEAKER) (test 32.3 GM/DL 32.3-36.5 wngn=545) RED CELL DISTRIBUTION WIDTH (BEAKER) (test 13.6 % 11.6-14.4 ypjr=274) PLATELET COUNT (BEAKER) (test lucs=053) 192 K/CU MM 150-450 MEAN PLATELET VOLUME (BEAKER) (test wlqc=113) 9.4 fL 9.4-12.4 NUCLEATED RED BLOOD CELLS (BEAKER) (test 1 /100 WBC 0-0 wzep=773) IMMATURE GRANULOCYTES-RELATIVE PERCENT (BEAKER) 2 % 0-1 (test zyps=7941) (MANUAL DIFFERENTIAL)2017-01-24 22:13:00 Test Item Value Reference Range Comments NEUTROPHILS - REL (DIFF) (BEAKER) (test bxpu=0157) 18 % LYMPHOCYTES - REL (DIFF) (BEAKER) (test wofc=4935) 27 % MONOCYTES - REL (DIFF) (BEAKER) (test rcwt=2769) 11 % EOSINOPHILS - REL (DIFF) (BEAKER) (test qvey=3140) 2 % METAMYELOCYTES-REL (DIFF) (BEAKER) (test ymon=822) 3 % 0-0 MYELOCYTES-REL (DIFF) (BEAKER) (test otsv=3221) 2 % 0-0 PROMYELOCYTES-REL (DIFF) (BEAKER) (test oogf=100) 1 % 0-0 BANDS - REL (DIFF) (BEAKER) (test quho=5512) 36 % 0-10 NEUTROPHILS - ABS (DIFF) (BEAKER) (test qruz=4097) 0.92 K/ L 1.80-8.00 LYMPHOCYTES - ABS (DIFF) (BEAKER) (test qeqh=9074) 1.38 K/ L 1.48-4.50 MONOCYTES - ABS (DIFF) (BEAKER) (test prrd=7966) 0.56 K/ L 0.00-1.30 EOSINOPHILS - ABS (DIFF) (BEAKER) (test wwrb=6583) 0.10 K/ L 0.00-0.50 METAMYELOCTYES - ABS (DIFF) (BEAKER) (test 0.15 K/ L 0.00-0.00 gnmx=958) PROMYELOCYTES - ABS (DIFF) (BEAKER) (test 0.05 K/ L 0.00-0.00 favb=707) BANDS-ABS (DIFF) (BEAKER) (test hioh=7487) 1.8 K/ L 0.0-0.8 MYELOCYTES-ABS (DIFF) (BEAKER) (test avoj=7689) 0.10 K/ L 0.00-0.00 TOTAL COUNTED (BEAKER) (test flyg=7899) 100 BANDS + SEGMENTED NEUTROPHILS (BEAKER) (test 2.75 cpkv=3257) DOHLE BODIES (BEAKER) (test vbwc=295) Present VACUOLATED NEUTROPHILS (BEAKER) (test zotr=732) Present GIANT PLATELETS (BEAKER) (test tzkz=640) Present ANISOCYTOSIS (BEAKER) (test jmey=734) 1+ few MICROCYTES (BEAKER) (test acwo=017) 1+ few [id number] 21:56:00 Test Item Value Reference Range Comments PHOSPHORUS (BEAKER) (test vght=393) 4.1 mg/dL 2.3-4.7 [id number] 21:56:00 Test Item Value Reference Range Comments MAGNESIUM (BEAKER) (test opbm=951) 1.3 mg/dL 1.6-2.6 COMPREHENSIVE METABOLIC [id number] 21:56:00 Test Item Value Reference Range Comments TOTAL PROTEIN (BEAKER) 5.2 gm/dL 6.0-8.3 (test xnhl=133) ALBUMIN (BEAKER) (test 3.1 g/dL 3.5-5.0 tvqr=6120) ALKALINE PHOSPHATASE 72 U/L 40-150 (BEAKER) (test oyvx=173) BILIRUBIN TOTAL (BEAKER) 1.5 mg/dL 0.2-1.2 (test pvle=271) SODIUM (BEAKER) (test 136 meq/L 136-145 wwyv=891) POTASSIUM (BEAKER) (test 4.1 meq/L 3.5-5.1 lhsv=276) CHLORIDE (BEAKER) (test 104 meq/L 98-107 yjuh=484) CO2 (BEAKER) (test 20 meq/L 22-29 yqej=848) BLOOD UREA NITROGEN 20 mg/dL 7-21 (BEAKER) (test pzhn=920) CREATININE (BEAKER) (test 1.52 mg/dL 0.57-1.25 nrww=312) GLUCOSE RANDOM (BEAKER) 283 mg/dL 70-105 (test wxdh=296) CALCIUM (BEAKER) (test 7.6 mg/dL 8.4-10.2 agxi=566) AST (SGOT) (BEAKER) (test 16 U/L 5-34 kaqp=276) ALT (SGPT) (BEAKER) (test 12 U/L 6-55 wfyo=564) EGFR (BEAKER) (test 47 mL/min/1.73 sq m ESTIMATED GFR IS NOT otbm=2644) ACCURATE CREATININE CLEARANCE IN PREDICTING GLOMERULAR FILTRATION RATE. ESTIMATED GFR IS NOT APPLICABLE FOR DIALYSIS PATIENTS. LACTIC ACID, ARTERIAL, WHOLE [id number] 21:50:00 Test Item Value Reference Range Comments LACTATE BLOOD ARTERIAL (2) 1.8 mmol/L 0.5-2.2 Specimen slightly hemolyzed (BEAKER) (test jxnn=1580) Effective 06/29/2015: Units/Reference Range ChangeNew: 0.5-2.2 mmol/L Previous: 5 -20 mg/dLBLOOD GAS, [id number] 21:46:00 Test Item Value Reference Range Comments PH ARTERIAL (BEAKER) (test lhtu=401) 7.20 7.35-7.45 PCO2 ARTERIAL (BEAKER) (test pzau=108) 52 mmHg 35-45 PO2 ARTERIAL (BEAKER) (test soyh=925) 181 mmHg 80-90 O2 SATURATION ARTERIAL (BEAKER) (test zngr=262) 98.9 % 96.0-97.0 HCO3 ARTERIAL (BEAKER) (test cfch=716) 20 mmol/L 21-29 BASE EXCESS ARTERIAL (BEAKER) (test zvsn=986) -8.1 mmol/L -2.0-3.0 PATIENT TEMPERATURE (BEAKER) (test kkgv=0569) 38.1 C FIO2 (BEAKER) (test bwie=0477) 100.0 % SODIUM NA-STAT [id number] 19:24:00 Test Item Value Reference Range Comments SODIUM (BEAKER) (test zlvb=541) 133 meq/L 135-148 HGB/HCT (H&H) - STAT [id number] 19:24:00 Test Item Value Reference Range Comments HEMOGLOBIN (BEAKER) (test zmuf=789) 18.0 g/dL 13.0-16.8 HEMATOCRIT (BEAKER) (test fbez=788) 53.0 % 40.0-50.0 BLOOD GAS, [id number] 19:23:00 Test Item Value Reference Range Comments PH ARTERIAL (BEAKER) (test huwn=968) 7.19 7.35-7.45 PCO2 ARTERIAL (BEAKER) (test cwen=567) 52 mmHg 35-45 PO2 ARTERIAL (BEAKER) (test kgwm=402) 196 mmHg 80-90 O2 SATURATION ARTERIAL (BEAKER) (test xkei=571) 99.0 % 96.0-97.0 HCO3 ARTERIAL (BEAKER) (test muvu=414) 19 mmol/L 21-29 BASE EXCESS ARTERIAL (BEAKER) (test humt=411) -9.3 mmol/L -2.0-3.0 PATIENT TEMPERATURE (BEAKER) (test llsu=0339) 37.0 C GLUCOSE-STAT [id number] 19:23:00 Test Item Value Reference Range Comments GLUCOSE RANDOM (BEAKER) (test bsak=381) 280 mg/dL 70-110 POTASSIUM-STAT [id number] 19:20:00 Test Item Value Reference Range Comments POTASSIUM (BEAKER) (test vvrd=033) 4.1 meq/L 3.6-5.5 POCT-GLUCOSE [id number] 17:18:00 Test Item Value Reference Range Comments POC-GLUCOSE METER (BEAKER) 202 mg/dL 70-110 TESTED AT [address] (test zvub=7124) [facility] [address] RAD, CHEST, 1 VIEW, NON [id number] 17:11:00Reason for exam:->central line placementShould this be [...] MDReport Verified Date/Time: 01/24/2017 17:11:16 Reading Location: [facility] Reading Room [id number] 16:30:00 Test Item Value Reference Range Comments PHOSPHORUS (BEAKER) (test aatp=374) 1.6 mg/dL 2.3-4.7 Add-on to specimenAdd on to sent specimenAdd-on to sent [id number] 16:30:00 Test Item Value Reference Range Comments MAGNESIUM (BEAKER) (test iuzb=585) 1.4 mg/dL 1.6-2.6 Add-on to specimenAdd on to sent specimenAdd-on to sent specimenBASIC METABOLIC [id number] 16:30:00 Test Item Value Reference Range Comments SODIUM (BEAKER) (test 134 meq/L 136-145 loip=469) POTASSIUM (BEAKER) (test 3.9 meq/L 3.5-5.1 gkpf=139) CHLORIDE (BEAKER) (test 102 meq/L 98-107 rqil=609) CO2 (BEAKER) (test 19 meq/L 22-29 kvtc=130) BLOOD UREA NITROGEN 18 mg/dL 7-21 (BEAKER) (test bgmp=406) CREATININE (BEAKER) (test 0.89 mg/dL 0.57-1.25 fstt=939) GLUCOSE RANDOM (BEAKER) 270 mg/dL 70-105 (test bftw=429) CALCIUM (BEAKER) (test 8.5 mg/dL 8.4-10.2 vhyj=589) EGFR (BEAKER) (test 88 mL/min/1.73 sq m ESTIMATED GFR IS NOT gvih=5116) ACCURATE CREATININE CLEARANCE IN PREDICTING GLOMERULAR FILTRATION RATE. ESTIMATED GFR IS NOT APPLICABLE FOR DIALYSIS PATIENTS. Add-on to specimenAdd on to sent specimenAdd-on to sent specimenLACTIC ACID, ARTERIAL, WHOLE [id number] 16:25:00 Test Item Value Reference Range Comments LACTATE BLOOD ARTERIAL (2) 1.5 mmol/L 0.5-2.2 Specimen slightly hemolyzed (BEAKER) (test kiml=0715) Effective 06/29/2015: Units/Reference Range ChangeNew: 0.5-2.2 mmol/L Previous: 5 -20 mg/dLPlease add on to specimen sentCT, CHEST, WITH [id number] 16:23: 00FINAL REPORT CT of the Chest, [...] Forbes MDReport Verified Date/Time: 16:23:54 Reading Location: [facility] C013Y CT Body Reading Room CT, [id number] 16:23:00Please administer with rectal contrast.FINAL REPORT CT [...] MDReport Verified Date/Time: 01/24/2017 16:23:54 Reading Location: [facility] C013Y CT Body Reading Room CBC (HEMOGRAM ONLY)2017-01-24 16:16:00 Test Item Value Reference Range Comments WHITE BLOOD CELL COUNT (BEAKER) (test agse=319) 2.6 K/ L 3.5-10.5 RED BLOOD CELL COUNT (BEAKER) (test sjch=411) 5.59 M/ L 4.63-6.08 HEMOGLOBIN (BEAKER) (test nozl=788) 16.5 GM/DL 13.7-17.5 HEMATOCRIT (BEAKER) (test nswm=121) 49.0 % 40.1-51.0 MEAN CORPUSCULAR VOLUME (BEAKER) (test cedt=843) 87.7 fL 79.0-92.2 MEAN CORPUSCULAR HEMOGLOBIN (BEAKER) (test 29.5 pg 25.7-32.2 tfvn=690) MEAN CORPUSCULAR HEMOGLOBIN CONC (BEAKER) (test 33.7 GM/DL 32.3-36.5 vwuw=712) RED CELL DISTRIBUTION WIDTH (BEAKER) (test 13.4 % 11.6-14.4 hfok=707) PLATELET COUNT (BEAKER) (test oyvj=292) 212 K/CU MM 150-450 MEAN PLATELET VOLUME (BEAKER) (test vwjw=172) 9.5 fL 9.4-12.4 NUCLEATED RED BLOOD CELLS (BEAKER) (test 0 /100 WBC 0-0 cnwh=591) RAD, ABDOMEN/KUB, 1 VIEW [id number] 15:22:00Shoot highReason for exam:->OG tube insertedFINAL REPORT [...] tissue mass or calcification. No fracture. Signed: Ale Galileo MarbinYang MDReport Verified Date/Time: 01/24/2017 15:22:17 Reading Location: [facility] Radiology Reading Room Electronically signed by: GALILEO ORELLANAon 01/24/2017 03:22 PMRAD, CHEST, 1 VIEW, NON [id number] 14:28: 00Reason for exam:->ET TubeShould this be [...] pulmonary edema. Subcutaneous emphysema is unchanged. Signed: Norberto Orellanaila MarbinYang MARINeport Verified Date/Time: 01/24/2017 14:28:19 Reading Location: [facility] Radiology Reading Room RAD, CHEST, 1 VIEW, NON [id number] 13:08:00Reason for exam:->increased work of breathing, feverShould [...] exam. No acute cardiopulmonary abnormality. Signed: Terell Koenigort Verified Date/Time : 01/24/2017 13:08:51 Reading Location: [facility] Mammo Reading Room BLOOD GAS , [id number] 12:42:00 Test Item Value Reference Range Comments PH ARTERIAL (BEAKER) (test uzeg=214) 7.49 7.35-7.45 PCO2 ARTERIAL (BEAKER) (test qhtq=951) 28 mmHg 35-45 PO2 ARTERIAL (BEAKER) (test cjoh=370) 97 mmHg 80-90 O2 SATURATION ARTERIAL (BEAKER) (test gibk=263) 97.5 % 96.0-97.0 HCO3 ARTERIAL (BEAKER) (test ihik=484) 20 mmol/L 21-29 BASE EXCESS ARTERIAL (BEAKER) (test ghxd=407) -0.4 mmol/L -2.0-3.0 PATIENT TEMPERATURE (BEAKER) (test kpru=4011) 38.8 C FIO2 (BEAKER) (test nkok=3750) 21.0 % POCT-GLUCOSE [id number] 12:28:00 Test Item Value Reference Range Comments POC-GLUCOSE METER (BEAKER) 101 mg/dL 70-110 TESTED AT [address] (test fitv=7522) [place] [id number] POCT-GLUCOSE [id number] 11:51:00 Test Item Value Reference Range Comments POC-GLUCOSE METER (BEAKER) 153 mg/dL 70-110 TESTED AT [address] (test kxux=7288) [place] [id number] POCT-GLUCOSE [id number] 10:36:00 Test Item Value Reference Range Comments POC-GLUCOSE METER (BEAKER) 145 mg/dL 70-110 TESTED AT [address] (test qdjp=0924) [place] [id number] POCT-GLUCOSE [id number] 09:46:00 Test Item Value Reference Range Comments POC-GLUCOSE METER (BEAKER) 132 mg/dL 70-110 TESTED AT [address] (test udtb=4199) [place] [id number] POCT-GLUCOSE [id number] 08:38:00 Test Item Value Reference Range Comments POC-GLUCOSE METER (BEAKER) 108 mg/dL 70-110 TESTED AT [address] (test zvle=7888) [place] [address] POCT-GLUCOSE [id number] 06:41:00 Test Item Value Reference Range Comments POC-GLUCOSE METER (BEAKER) 132 mg/dL 70-110 TESTED AT [address] (test glzh=1606) [facility] [address] CALCIUM, [id number] 06:36:00 Test Item Value Reference Range Comments CALCIUM IONIZED (BEAKER) (test fnok=026) 1.11 mmol/L 1.12-1.27 PH, BLOOD (BEAKER) (test kukl=7696) 7.45 [id number] 05:35:00 Test Item Value Reference Range Comments PHOSPHORUS (BEAKER) (test xfds=943) 1.4 mg/dL 2.3-4.7 [id number] 04:55:00 Test Item Value Reference Range Comments THYROID STIMULATING HORMONE (BEAKER) (test 1.39 uIU/mL 0.35-4.94 znhn=290) [id number] 04:38:00 Test Item Value Reference Range Comments MAGNESIUM (BEAKER) (test akol=955) 1.8 mg/dL 1.6-2.6 BASIC METABOLIC [id number] 04:38:00 Test Item Value Reference Range Comments SODIUM (BEAKER) (test 137 meq/L 136-145 bhvl=212) POTASSIUM (BEAKER) (test 3.6 meq/L 3.5-5.1 phhf=106) CHLORIDE (BEAKER) (test 103 meq/L 98-107 eefq=271) CO2 (BEAKER) (test 27 meq/L 22-29 gauq=687) BLOOD UREA NITROGEN 14 mg/dL 7-21 (BEAKER) (test cena=122) CREATININE (BEAKER) (test 0.90 mg/dL 0.57-1.25 cvzz=610) GLUCOSE RANDOM (BEAKER) 172 mg/dL 70-105 (test bioa=211) CALCIUM (BEAKER) (test 8.9 mg/dL 8.4-10.2 gick=231) EGFR (BEAKER) (test 87 mL/min/1.73 sq m ESTIMATED GFR IS NOT krph=4348) ACCURATE CREATININE CLEARANCE IN PREDICTING GLOMERULAR FILTRATION RATE. ESTIMATED GFR IS NOT APPLICABLE FOR DIALYSIS PATIENTS. CBC (HEMOGRAM ONLY)2017-01-24 04:23:00 Test Item Value Reference Range Comments WHITE BLOOD CELL COUNT (BEAKER) (test bren=310) 8.6 K/ L 3.5-10.5 RED BLOOD CELL COUNT (BEAKER) (test qxzk=217) 4.61 M/ L 4.63-6.08 HEMOGLOBIN (BEAKER) (test bjon=048) 13.5 GM/DL 13.7-17.5 HEMATOCRIT (BEAKER) (test zkqq=104) 40.7 % 40.1-51.0 MEAN CORPUSCULAR VOLUME (BEAKER) (test zafj=948) 88.3 fL 79.0-92.2 MEAN CORPUSCULAR HEMOGLOBIN (BEAKER) (test 29.3 pg 25.7-32.2 palg=375) MEAN CORPUSCULAR HEMOGLOBIN CONC (BEAKER) (test 33.2 GM/DL 32.3-36.5 zmsd=676) RED CELL DISTRIBUTION WIDTH (BEAKER) (test 13.4 % 11.6-14.4 hizq=703) PLATELET COUNT (BEAKER) (test upzp=327) 165 K/CU MM 150-450 MEAN PLATELET VOLUME (BEAKER) (test febr=560) 9.3 fL 9.4-12.4 NUCLEATED RED BLOOD CELLS (BEAKER) (test 0 /100 WBC 0-0 rsjh=951) POCT-GLUCOSE [id number] 04:14:00 Test Item Value Reference Range Comments POC-GLUCOSE METER (BEAKER) 155 mg/dL 70-110 TESTED AT [facility] [address] [place] [address] (test woxq=4497) [facility] [address] URINALYSIS W/ REFLEX URINE [id number] 03:51:00 Test Item Value Reference Range Comments COLOR (BEAKER) (test uisx=118) Yellow CLARITY (BEAKER) (test oswn=345) Clear SPECIFIC GRAVITY UA (BEAKER) (test uzfp=407) 1.011 1.001-1.035 PH UA (BEAKER) (test jqvx=959) 7.5 5.0-8.0 PROTEIN UA (BEAKER) (test urvw=733) 10 mg/dL Negative GLUCOSE UA (BEAKER) (test jpgo=349) 150 mg/dL Negative KETONES UA (BEAKER) (test hcty=666) 20 mg/dL Negative BILIRUBIN UA (BEAKER) (test qunf=824) Negative Negative BLOOD UA (BEAKER) (test xfix=871) Small Negative NITRITE UA (BEAKER) (test hcun=406) Negative Negative LEUKOCYTE ESTERASE UA (BEAKER) (test ilxe=483) Negative Negative UROBILINOGEN UA (BEAKER) (test oqoc=467) 0.2 mg/dL 0.2-1.0 RBC UA (BEAKER) (test mtgd=584) 4 /HPF WBC UA (BEAKER) (test yjpd=660) 2 /HPF BACTERIA (BEAKER) (test ptzh=116) Rare MUCUS (BEAKER) (test fmoz=3557) Rare SOURCE(BEAKER) (test mbbk=0916) POCT-GLUCOSE [id number] 02:09:00 Test Item Value Reference Range Comments POC-GLUCOSE METER (BEAKER) 166 mg/dL 70-110 TESTED AT [address] (test gmaw=0495) [place] [id number] POCT-GLUCOSE [id number] 00:14:00 Test Item Value Reference Range Comments POC-GLUCOSE METER (BEAKER) 144 mg/dL 70-110 TESTED AT [address] (test kvce=9651) [place] [id number] POCT-GLUCOSE [id number] 22:22:00 Test Item Value Reference Range Comments POC-GLUCOSE METER (BEAKER) 133 mg/dL 70-110 TESTED AT [address] (test dege=1883) [place] [address] POCT-GLUCOSE [id number] 22:22:00 Test Item Value Reference Range Comments POC-GLUCOSE METER (BEAKER) 138 mg/dL 70-110 TESTED AT [address] (test mcav=8758) [place] [id number] POCT-GLUCOSE [id number] 21:18:00 Test Item Value Reference Range Comments POC-GLUCOSE METER (BEAKER) 125 mg/dL 70-110 TESTED AT [address] (test lgsr=7252) [place] [address] RAD, CHEST, 1 VIEW, NON [id number] 21:07:00Reason for exam:->eval for source of infectionShould [...] Verified Date /Time: 01/23/2017 21:07:52 Reading Location: [address] Reading Room POCT-GLUCOSE [id number] 19:36:00 Test Item Value Reference Range Comments POC-GLUCOSE METER (BEAKER) 148 mg/dL 70-110 TESTED AT [address] (test jruz=8165) [facility] [address] POCT-GLUCOSE [id number] 18:04:00 Test Item Value Reference Range Comments POC-GLUCOSE METER (BEAKER) 170 mg/dL 70-110 TESTED AT [address] (test ctyn=1799) [facility] [address] POCT-GLUCOSE [id number] 17:38:00 Test Item Value Reference Range Comments POC-GLUCOSE METER (BEAKER) 184 mg/dL 70-110 TESTED AT [address] (test ktkf=1808) [facility] [address] POCT-GLUCOSE [id number] 16:08:00 Test Item Value Reference Range Comments POC-GLUCOSE METER (BEAKER) 199 mg/dL 70-110 TESTED AT [address] (test farl=5012) [facility] [address] POCT-GLUCOSE [id number] 16:08:00 Test Item Value Reference Range Comments POC-GLUCOSE METER (BEAKER) 304 mg/dL 70-110 Notified CATE NICHOLS/TESTED AT [facility] (test qpvs=6659) [address] [place] [address] POCT-GLUCOSE [id number] 15:00:00 Test Item Value Reference Range Comments POC-GLUCOSE METER (BEAKER) 234 mg/dL 70-110 TESTED AT [address] (test rxwy=8065) [facility] [address] POCT-GLUCOSE [id number] 13:41:00 Test Item Value Reference Range Comments POC-GLUCOSE METER (BEAKER) 278 mg/dL 70-110 TESTED AT [address] (test oxgt=4474) [facility] [address] HEMOGLOBIN [id number] 13:38:00 Test Item Value Reference Range Comments HEMOGLOBIN A1C (BEAKER) (test owaz=799) 8.2 % 4.3-6.1 POCT-GLUCOSE [id number] 11:17:00 Test Item Value Reference Range Comments POC-GLUCOSE METER (BEAKER) 301 mg/dL 70-110 TESTED AT [address] (test psav=5018) [place] [id number] POCT-GLUCOSE [id number] 08:37:00 Test Item Value Reference Range Comments POC-GLUCOSE METER (BEAKER) 298 mg/dL 70-110 TESTED AT [address] (test zegw=3468) [facility] [address] POCT-GLUCOSE [id number] 08:19:00 Test Item Value Reference Range Comments POC-GLUCOSE METER (BEAKER) 253 mg/dL 70-110 TESTED AT [address] (test jvsv=5331) [place] [id number] POCT-GLUCOSE [id number] 07:05:00 Test Item Value Reference Range Comments POC-GLUCOSE METER (BEAKER) 250 mg/dL 70-110 TESTED AT [address] (test cmyb=3101) [place] [id number] POCT-GLUCOSE [id number] 06:09:00 Test Item Value Reference Range Comments POC-GLUCOSE METER (BEAKER) 227 mg/dL 70-110 TESTED AT [address] (test vpfd=5254) [facility] [address] POCT-GLUCOSE [id number] 06:08:00 Test Item Value Reference Range Comments POC-GLUCOSE METER (BEAKER) 286 mg/dL 70-110 TESTED AT [address] (test rdlt=1860) [place] [id number] POCT-GLUCOSE [id number] 06:08:00 Test Item Value Reference Range Comments POC-GLUCOSE METER (BEAKER) 266 mg/dL 70-110 TESTED AT [address] (test agey=5447) [facility] [address] BLOOD GAS, [id number] 03:37:00 Test Item Value Reference Range Comments PH VENOUS (BEAKER) (test weht=813) 7.40 7.32-7.42 PCO2 VENOUS (BEAKER) (test cvxv=762) 50 mmHg 41-51 PO2 VENOUS (BEAKER) (test qppn=016) 18 mmHg 25-40 O2 SATURATION VENOUS (BEAKER) (test irex=671) 26.6 % 40.0-70.0 HCO3 VENOUS (BEAKER) (test gsor=475) 30 mmol/L 21-29 BASE EXCESS VENOUS (BEAKER) (test acsp=147) 4.3 mmol/L -2.0-3.0 PATIENT TEMPERATURE (BEAKER) (test fdgm=5117) 37.0 C FIO2 (BEAKER) (test ieso=7616) 100.0 % CALCIUM, [id number] 03:11:00 Test Item Value Reference Range Comments CALCIUM IONIZED (BEAKER) (test coiw=409) 1.10 mmol/L 1.12-1.27 PH, BLOOD (BEAKER) (test enxv=4152) 7.41 POCT-GLUCOSE [id number] 03:03:00 Test Item Value Reference Range Comments POC-GLUCOSE METER (BEAKER) 229 mg/dL 70-110 TESTED AT [facility] [address] [facility] (test znju=9420) [facility] [address] [id number] 02:30:00 Test Item Value Reference Range Comments MAGNESIUM (BEAKER) (test 2.1 mg/dL 1.6-2.6 Specimen slightly hemolyzed bwnn=257) [id number] 02:30:00 Test Item Value Reference Range Comments PHOSPHORUS (BEAKER) (test 1.8 mg/dL 2.3-4.7 Specimen slightly hemolyzed nfvy=202) BASIC METABOLIC [id number] 02:30:00 Test Item Value Reference Range Comments SODIUM (BEAKER) (test 137 meq/L 136-145 kjbg=210) POTASSIUM (BEAKER) (test 4.7 meq/L 3.5-5.1 Specimen slightly omyo=982) hemolyzed CHLORIDE (BEAKER) (test 102 meq/L 98-107 ybyq=985) CO2 (BEAKER) (test 26 meq/L 22-29 lgsj=706) BLOOD UREA NITROGEN 21 mg/dL 7-21 (BEAKER) (test jkhl=183) CREATININE (BEAKER) (test 1.29 mg/dL 0.57-1.25 Specimen slightly pdmb=631) hemolyzed GLUCOSE RANDOM (BEAKER) 330 mg/dL 70-105 (test xibx=527) CALCIUM (BEAKER) (test 8.7 mg/dL 8.4-10.2 ryrx=194) EGFR (BEAKER) (test 57 mL/min/1.73 sq m ESTIMATED GFR IS NOT moge=0478) ACCURATE CREATININE CLEARANCE IN PREDICTING GLOMERULAR FILTRATION RATE. ESTIMATED GFR IS NOT APPLICABLE FOR DIALYSIS PATIENTS. CBC (HEMOGRAM ONLY)2017-01-23 02:08:00 Test Item Value Reference Range Comments WHITE BLOOD CELL COUNT (BEAKER) (test rpzu=881) 11.3 K/ L 3.5-10.5 RED BLOOD CELL COUNT (BEAKER) (test kzza=780) 4.76 M/ L 4.63-6.08 HEMOGLOBIN (BEAKER) (test pvqn=136) 14.1 GM/DL 13.7-17.5 HEMATOCRIT (BEAKER) (test thke=534) 41.9 % 40.1-51.0 MEAN CORPUSCULAR VOLUME (BEAKER) (test kscs=666) 88.0 fL 79.0-92.2 MEAN CORPUSCULAR HEMOGLOBIN (BEAKER) (test 29.6 pg 25.7-32.2 sjtm=850) MEAN CORPUSCULAR HEMOGLOBIN CONC (BEAKER) (test 33.7 GM/DL 32.3-36.5 sscu=519) RED CELL DISTRIBUTION WIDTH (BEAKER) (test 13.4 % 11.6-14.4 qhdq=880) PLATELET COUNT (BEAKER) (test wuzp=539) 176 K/CU MM 150-450 MEAN PLATELET VOLUME (BEAKER) (test qrsf=230) 10.0 fL 9.4-12.4 NUCLEATED RED BLOOD CELLS (BEAKER) (test 0 /100 WBC 0-0 ixgn=625) POCT-GLUCOSE [id number] 01:38:00 Test Item Value Reference Range Comments POC-GLUCOSE METER (BEAKER) 232 mg/dL 70-110 TESTED AT [address] (test wyvp=6619) [facility] [address] POCT-GLUCOSE [id number] 20:52:00 Test Item Value Reference Range Comments POC-GLUCOSE METER (BEAKER) 327 mg/dL 70-110 TESTED AT [address] (test rblp=0037) [facility] [address] POCT-GLUCOSE [id number] 18:46:00 Test Item Value Reference Range Comments POC-GLUCOSE METER (BEAKER) 321 mg/dL 70-110 TESTED AT [address] (test xdjq=5609) [facility] [address] POCT-GLUCOSE [id number] 15:24:00 Test Item Value Reference Range Comments POC-GLUCOSE METER (BEAKER) 349 mg/dL 70-110 TESTED AT [address] (test trkn=8915) [facility] [address] POCT-GLUCOSE [id number] 14:31:00 Test Item Value Reference Range Comments POC-GLUCOSE METER (BEAKER) 344 mg/dL 70-110 TESTED AT [address] (test sgor=0714) [facility] [address] POCT-GLUCOSE [id number] 12:31:00 Test Item Value Reference Range Comments POC-GLUCOSE METER (BEAKER) 346 mg/dL 70-110 TESTED AT [address] (test xydw=0036) [facility] [address] [id number] 11:01:00 Test Item Value Reference Range Comments PHOSPHORUS (BEAKER) (test achb=322) 2.9 mg/dL 2.3-4.7 [id number] 11:01:00 Test Item Value Reference Range Comments MAGNESIUM (BEAKER) (test yckc=351) 1.5 mg/dL 1.6-2.6 BASIC METABOLIC [id number] 11:01:00 Test Item Value Reference Range Comments SODIUM (BEAKER) (test 136 meq/L 136-145 tirb=050) POTASSIUM (BEAKER) (test 4.5 meq/L 3.5-5.1 bpns=000) CHLORIDE (BEAKER) (test 104 meq/L 98-107 stva=476) CO2 (BEAKER) (test 19 meq/L 22-29 hwtt=680) BLOOD UREA NITROGEN 15 mg/dL 7-21 (BEAKER) (test gjvk=209) CREATININE (BEAKER) (test 1.22 mg/dL 0.57-1.25 nwnq=040) GLUCOSE RANDOM (BEAKER) 369 mg/dL 70-105 (test aoos=009) CALCIUM (BEAKER) (test 8.4 mg/dL 8.4-10.2 gmel=800) EGFR (BEAKER) (test 61 mL/min/1.73 sq m ESTIMATED GFR IS NOT zuce=7469) ACCURATE CREATININE CLEARANCE IN PREDICTING GLOMERULAR FILTRATION RATE. ESTIMATED GFR IS NOT APPLICABLE FOR DIALYSIS PATIENTS. CALCIUM, [id number] 06:39:00 Test Item Value Reference Range Comments CALCIUM IONIZED (BEAKER) (test iryi=000) 0.92 mmol/L 1.12-1.27 PH, BLOOD (BEAKER) (test rlpd=6362) 7.42 CBC (HEMOGRAM ONLY)2017-01-22 06:16:00 Test Item Value Reference Range Comments WHITE BLOOD CELL COUNT (BEAKER) (test rmem=642) 9.8 K/ L 3.5-10.5 RED BLOOD CELL COUNT (BEAKER) (test clau=527) 5.12 M/ L 4.63-6.08 HEMOGLOBIN (BEAKER) (test fctd=134) 14.9 GM/DL 13.7-17.5 HEMATOCRIT (BEAKER) (test grtn=699) 45.9 % 40.1-51.0 MEAN CORPUSCULAR VOLUME (BEAKER) (test cqig=284) 89.6 fL 79.0-92.2 MEAN CORPUSCULAR HEMOGLOBIN (BEAKER) (test 29.1 pg 25.7-32.2 ypoe=097) MEAN CORPUSCULAR HEMOGLOBIN CONC (BEAKER) (test 32.5 GM/DL 32.3-36.5 zjip=171) RED CELL DISTRIBUTION WIDTH (BEAKER) (test 13.4 % 11.6-14.4 xsmm=058) PLATELET COUNT (BEAKER) (test jeiu=672) 166 K/CU MM 150-450 MEAN PLATELET VOLUME (BEAKER) (test posr=637) 9.8 fL 9.4-12.4 NUCLEATED RED BLOOD CELLS (BEAKER) (test 0 /100 WBC 0-0 wsry=005) POCT-GLUCOSE [id number] 06:14:00 Test Item Value Reference Range Comments POC-GLUCOSE METER (BEAKER) 309 mg/dL 70-110 Notified CATE NICHOLS/TESTED AT [facility] (test abzc=1539) [facility] [address] [facility] [address] POCT-GLUCOSE [id number] 21:42:00 Test Item Value Reference Range Comments POC-GLUCOSE METER (BEAKER) 252 mg/dL 70-110 TESTED AT [place] [address] [place] (test bjsv=8776) [facility] [address] POCT-GLUCOSE [id number] 09:56:00 Test Item Value Reference Range Comments POC-GLUCOSE METER (BEAKER) 226 mg/dL 70-110 TESTED AT [facility] [address] (test dyug=4099) [facility] [address] POCT-GLUCOSE [id number] 13:27:00 Test Item Value Reference Range Comments POC-GLUCOSE METER (BEAKER) 172 mg/dL 70-110 TESTED AT [facility] [address] (test isuj=7809) [address] [address] [facility] [address]
[2017-08-15] MEDS ORDERED: NA CHLORIDE 0.9% 1,000 ML ONE ×2 (13:27→15:03)
--- NOTE | 2017-08-15 13:38 | RAD REPORT ---
EXAM DESCRIPTION: Mohinder Single View08/15/2017 1:30 pm CLINICAL HISTORY: Chest pain COMPARISON: May 2017 FINDINGS: The right hemidiaphragm remains elevated. The lungs appear clear of acute infiltrate. The heart is normal size IMPRESSION: No acute abnormalities displayed
[2017-08-15 13:43] LABS: Absolute Lymphocytes (CBC) 1.8 K/uL (0.7-4.9); Absolute Monocytes 0.9 K/uL (0.1-1.3); Absolute Neutrophil 6.6 K/uL (1.8-8.0); Basophils % 0.5 % (0-1.3); Eosinophils % 0.6 % (0-4.4); Lymphocytes % 19.6 % (15.3-44.8); MCV 85.8 fL (80-100); MPV 8.1 fL (7.6-11.3); Monocytes % 9.1 % (3.3-12.3); RBC Red Blood Cell Count 4.67 M/uL (4.33-5.43)
[2017-08-15 13:49] LABS: Protime INR 1.49
[2017-08-15 14:16] LABS: ALT/SGPT 19 U/L (12-78); AST/SGOT 13 U/L (15-37); Alkaline Phosphatase 85 U/L (45-117); BUN Blood Urea Nitrogen 13 mg/dL (7-18); Bicarbonate 26 mmol/L (21-32); Bilirubin Direct 0.2 mg/dL (0-0.2); Bilirubin Total 0.6 mg/dL (0.2-1.0); CKMB Creatine Kinase MB 2.2 ng/mL (0.3-3.6); Creatine Phosphokinase 48 U/L (39-308); Glucose Level 187 mg/dL (74-106); Magnesium 1.8 mg/dL (1.8-2.4); Potassium 4.6 mmol/L (3.5-5.1); Sodium Level 140 mmol/L (136-145)
[2017-08-15 15:17] LABS: Urine Appearance TURBID; Urine Blood 3+ (NEG); Urine Color RED; Urine Glucose NEGATIVE (NEG); Urine Protein 2+ (NEG); Urine Specific Gravity >=1.030 (1.005-1.030); Urine Urobilinogen 0.2 mg/dL (0.2-1.0)
[2017-08-15 15:28] LABS: Urine Bilirubin NEGATIVE (NEG); Urine Microscopic Reflex ORDER UMIC
[2017-08-15 15:36] LABS: Urine Bacteria 20-50 /HPF (NONE SEEN); Urine RBC TNTC /HPF (NONE SEEN)
[2017-08-15 15:37] LABS: Urine Culture Reflex Order REFLEXED
--- NOTE | 2017-08-15 17:12 | ER ---
Nurse's Notes [facility] Name: Blu Palumbo Age: 57 yrs Sex: Male : 1960 Arrival Date: 08/15/2017 Time: 12:37 Bed 15 Private MD: Diagnosis: Hypotension;Urinary tract infection, site not specified Presentation: 08/15 12:38 Presenting complaint: EMS states: Patient's insisted patient be transported to ER aj for evaluation for possible dehydration after home health nurse was unable to obtain blood for routine labs. EMS placed 20 gauge IV to left hand. Patient is alert and oriented WNL for patient. Transition of care: patient was received from another setting of care (home health care). Onset of symptoms was August 15, 2017. Risk Assessment: Do you want to hurt yourself or someone else? Patient reports no desire to harm self or others. Initial Sepsis Screen: Does the patient meet any 2 criteria? No. Patient's initial sepsis screen is negative. Does the patient have a suspected source of infection? No. Patient's initial sepsis screen is negative. Care prior to arrival: None. 12:38 Method Of Arrival: EMS: [facility] 12:38 Acuity: KIMO 3 aj Triage Assessment: 12:43 General: Appears in no apparent distress. comfortable, Behavior is calm, cooperative, aj appropriate for age. General: Appears Behavior is. Pain: Denies pain. Neuro: Level of Consciousness is awake, alert, Oriented to WNL for patient. Respiratory: Airway is patent Respiratory effort is even, unlabored, Respiratory pattern is regular, symmetrical. Derm: Skin is intact, is healthy with good turgor, Skin is pink, warm \T\ dry. normal. 12:43 GI: Abdomen is flat, non-distended, Colostomy site is clean and dry. Ostomy appliance aj is intact. Historical: - Allergies: 12:43 No Known Allergies; aj - Home Meds: 12:43 amiodarone 200 mg Oral tab [Active]; atorvastatin 80 mg Oral tab [Active]; digoxin 250 aj mcg Oral tab [Active]; Eliquis 5 mg Oral tab [Active]; famotidine 20 mg Oral tab [Active]; Humulin R [Active]; loperamide 2 mg Oral tab [Active]; metoprolol tartrate 25 mg Oral tab [Active]; Myrbetriq 50 mg Oral Tb24 [Active]; Synthroid Oral [Active]; - PMHx: 12:43 colon cancer; Diabetes - IDDM; CVA; Sepsis; aj - PSHx: 12:43 Colostomy; aj - Immunization history:: Adult Immunizations up to date. - Social history:: Smoking status: Patient/guardian denies using tobacco. - Ebola Screening: : Patient negative for fever greater than or equal to 101.5 degrees Fahrenheit, and additional compatible Ebola Virus Disease symptoms Patient denies exposure to infectious person Patient denies travel to an Ebola-affected area in the 21 days before illness onset No symptoms or risks identified at this time. Screenin:53 Abuse screen: Denies threats or abuse. Denies injuries from another. Nutritional aj screening: No deficits noted. Tuberculosis screening: No symptoms or risk factors identified. Fall Risk None identified. Assessment: 12:48 Reassessment: Patient arrived on [facility] air mattress from home. Placed in Trendelenburg aj position in bed. 13:30 Reassessment: Patient appears in no apparent distress at this time. No changes from aj previously documented assessment. Patient is WNL for self. Repositioned in bed to left side. Pillow under head. In NAD. is at bedside. 14:53 Reassessment: see triage. aj Vital Signs: 12:43 BP 83 / 55; Pulse 81; Resp 19; Temp 98.6; Pulse Ox 100% on R/A; Weight 72.57 kg; Height aj 5 ft. 11 in. (180.34 cm); 13:30 BP 85 / 57; Pulse 80; Resp 17; Pulse Ox 99% on R/A; aj 14:53 BP 89 / 62; Pulse 74; Resp 20; Pulse Ox 100% on R/A; aj 15:15 BP 70 / 55; Pulse 80; Resp 20; Pulse Ox 99% on R/A; aj 15:40 BP 107 / 76; Pulse 73; Resp 18; Pulse Ox 100% on R/A; aj 16:27 BP 97 / 68; Pulse 80; Resp 20; Pulse Ox 99% on R/A; aj 17:58 BP 91 / 57; Pulse 80; Resp 20; Temp 97.9; Pulse Ox 99% on R/A; aj 12:43 Body Mass Index 22.32 (72.57 kg, 180.34 cm) aj 15:15 Provider notified of vital signs aj ED Course: 12:10 Inserted saline lock: 20 gauge in left antecubital area, using aseptic technique. Blood aj collected. 12:37 Patient arrived in ED. aj 12:38 [place] Cisner[place] PA is PHCP. jmm 12:38 Nathanael Flower MD is Attending Physician. jmm 12:40 Triage completed. aj 12:43 Arm band placed on left wrist. Patient placed in an exam room, on a stretcher, on aj quality assurance monitor chassis, on pulse oximetry. 12:48 Notified Nurse Practitioner and/or Physician Salvage Winder of vital signs. aj 12:48 Maintain EMS IV. Gauge \T\ site: 20 to left hand. aj 12:52 Caridad Lao, CATE is Primary Nurse. aj 13:23 X-ray completed. Portable x-ray completed in exam room. Patient tolerated procedure sw poorly. 13:30 XRAY Chest (1 view) In Process Unspecified. EDMS 14:56 Notified Nurse Practitioner and/or Physician Salvage Winder of vital signs. aj 15:15 EKG done, by fitness technician. reviewed by Los CARIAS. vh 16:27 Patient has correct armband on for positive identification. aj 16:27 Urine Culture Sent. aj 17:10 Alfa Reed DO is Hospitalizing Provider. jmm 18:57 No provider procedures requiring assistance completed. Patient admitted, IV remains in aj place. intact. Administered Medications: 13:32 Drug: NS 0.9% 1000 ml Route: IV; Rate: 1 bolus; Site: left antecubital; aj 15:09 Not Given (rate changed): NS 0.9% 1000 ml IV at 200 ml/hr once aj 15:10 Drug: NS 0.9% 1000 ml Route: IV; Rate: 1 bolus; Site: left antecubital; aj 17:49 Not Given (Duplicate Order): NS 0.9% 1000 ml IV at 1 bolus Per protocol; 1000 mL bolus aj Outcome: 17:11 Decision to Hospitalize by Provider. jmm 18:58 Admitted to ICU accompanied by nurse, via stretcher, room 6, on monitor, with chart, aj Report called to Alicia 18:58 Condition: good 18:58 Discharge instructions given to significant other, Instructed on the need for admit. 18:59 Patient left the ED. aj Signatures: Dispatcher [employer] Caridad Mendieta RN RN aj Mickail, Joel, PA PA jmm Harrell, Venessa vh Warren, Shannon sw
--- NOTE | 2017-08-15 17:12 | EDPHYS ---
Physician Documentation [facility] Name: Blu Palumbo Age: 57 yrs Sex: Male : 1960 Arrival Date: 08/15/2017 Time: 12:37 Bed 15 Private MD: ED Physician Nathanael Flower HPI: 08/15 12:45 This 57 yrs old Male presents to ER via EMS with complaints of Evaluation for jmm Possible Dehydration. 12:45 This is a 57 year old male with a hx of cva and dm that presents to the ED with jmm decreased appetite beginning approx 3 weeks ago according to the . states the patient has also recently refused his medication. Patient is non verbal and non ambulatory for the past 7 months. . Historical: - Allergies: 12:43 No Known Allergies; aj - Home Meds: 12:43 amiodarone 200 mg Oral tab [Active]; atorvastatin 80 mg Oral tab [Active]; digoxin 250 aj mcg Oral tab [Active]; Eliquis 5 mg Oral tab [Active]; famotidine 20 mg Oral tab [Active]; Humulin R [Active]; loperamide 2 mg Oral tab [Active]; metoprolol tartrate 25 mg Oral tab [Active]; Myrbetriq 50 mg Oral Tb24 [Active]; Synthroid Oral [Active]; - PMHx: 12:43 colon cancer; Diabetes - IDDM; CVA; Sepsis; aj - PSHx: 12:43 Colostomy; aj - Immunization history:: Adult Immunizations up to date. - Social history:: Smoking status: Patient/guardian denies using tobacco. - Ebola Screening: : Patient negative for fever greater than or equal to 101.5 degrees Fahrenheit, and additional compatible Ebola Virus Disease symptoms Patient denies exposure to infectious person Patient denies travel to an Ebola-affected area in the 21 days before illness onset No symptoms or risks identified at this time. ROS: 12:45 Unable to obtain ROS due to Non verbal. jmm Exam: 12:45 Head/Face: atraumatic. Cardiovascular: Regular rate and rhythm. No gallops, murmurs, jmm or rubs. Full/Equal distal pulses. Respiratory: Lungs have equal breath sounds bilaterally, clear to auscultation. No rales, rhonchi or wheezes noted. No increased work of breathing, no retractions or nasal flaring. Abdomen/GI: Soft, non-tender, with normal bowel sounds. No distension or tympany. No guarding or rebound. No evidence of tenderness throughout. 12:45 Constitutional: The patient appears alert. 12:45 Skin: Appearance: Color: normal in color. Vital Signs: 12:43 BP 83 / 55; Pulse 81; Resp 19; Temp 98.6; Pulse Ox 100% on R/A; Weight 72.57 kg; Height aj 5 ft. 11 in. (180.34 cm); 13:30 BP 85 / 57; Pulse 80; Resp 17; Pulse Ox 99% on R/A; aj 14:53 BP 89 / 62; Pulse 74; Resp 20; Pulse Ox 100% on R/A; aj 15:15 BP 70 / 55; Pulse 80; Resp 20; Pulse Ox 99% on R/A; aj 15:40 BP 107 / 76; Pulse 73; Resp 18; Pulse Ox 100% on R/A; aj 16:27 BP 97 / 68; Pulse 80; Resp 20; Pulse Ox 99% on R/A; aj 17:58 BP 91 / 57; Pulse 80; Resp 20; Temp 97.9; Pulse Ox 99% on R/A; aj 12:43 Body Mass Index 22.32 (72.57 kg, 180.34 cm) 15:15 Provider notified of vital signs MDM: 12:49 Patient medically screened. [facility] 17:10 Data reviewed: vital signs, nurses notes, lab test result(s), EKG, radiologic studies, [facility] plain films. Counseling: I had a detailed discussion with the patient and/or guardian regarding: the historical points, exam findings, and any diagnostic results supporting the discharge/admit diagnosis, lab results, radiology results, the need for further work-up and treatment in the hospital. Physician consultation: Alfa Reed DO Accepts admission. 08/15 12:49 Order name: Basic Metabolic Panel; Complete Time: 14:25 [facility] 08/15 12:49 Order name: CBC with Diff; Complete Time: 14:04 [facility] 08/15 12:49 Order name: Ckmb; Complete Time: 14:25 [facility] 08/15 12:49 Order name: CPK; Complete Time: 14:25 [facility] 08/15 12:49 Order name: LFT's; Complete Time: 14:25 [facility] 08/15 12:49 Order name: Magnesium; Complete Time: 14:25 [facility] 08/15 12:49 Order name: PT-INR; Complete Time: 14:04 [facility] 08/15 12:49 Order name: Ptt, Activated; Complete Time: 14:04 [facility] 08/15 12:49 Order name: Troponin (emerg Dept Use Only); Complete Time: 14:11 [facility] 08/15 13:13 Order name: TSH [facility] 08/15 13:13 Order name: Thyroid Stimulating Hormone; Complete Time: 14:16 [facility] 08/15 14:16 Interpretation: Abnormal: TSH 0.04. [facility] 08/15 14:48 Order name: UA; Complete Time: 15:54 em1 08/15 15:04 Order name: Lactate [facility] 08/15 15:04 Order name: Blood Culture Adult (2) [facility] 08/15 12:49 Order name: XRAY Chest (1 view); Complete Time: 14:04 [facility] 08/15 12:49 Order name: EKG; Complete Time: 12:50 [facility] 08/15 12:49 Order name: Cardiac monitoring; Complete Time: 13:50 [facility] 08/15 12:49 Order name: EKG - Nurse/Tech [facility] 08/15 12:49 Order name: IV Saline Lock; Complete Time: 13:50 [facility] 08/15 12:49 Order name: Labs collected and sent; Complete Time: 13:50 [facility] 08/15 15:17 Order name: Procalcitonin; Complete Time: 16:43 [facility] 08/15 15:17 Order name: Digoxin; Complete Time: 16:44 [facility] 08/15 15:30 Order name: Urine Microscopic Only; Complete Time: 15:54 [facility] 08/15 15:44 Order name: Urine Culture [facility] 08/15 17:24 Order name: Urine Culture [facility] 08/15 17:29 Order name: T4 Free [facility] 08/15 12:49 Order name: O2 Per Protocol; Complete Time: 13:50 [facility] 08/15 12:49 Order name: O2 Sat Monitoring; Complete Time: 13:50 [facility] 08/15 12:49 Order name: Urine Dipstick-Ancillary (obtain specimen) [facility] 08/15 12:49 Order name: Urine Dipstick-Ancillary (obtain specimen) [facility] Administered Medications: 13:32 Drug: NS 0.9% 1000 ml Route: IV; Rate: 1 bolus; Site: left antecubital; aj 15:09 Not Given (rate changed): NS 0.9% 1000 ml IV at 200 ml/hr once aj 15:10 Drug: NS 0.9% 1000 ml Route: IV; Rate: 1 bolus; Site: left antecubital; aj 17:49 Not Given (Duplicate Order): NS 0.9% 1000 ml IV at 1 bolus Per protocol; 1000 mL bolus aj Disposition: 08/16 07:09 Co-signature as Attending Physician, Nathanael Flower MD. rn Disposition: 08/15/17 17:11 Hospitalization ordered by Alfa Reed for Inpatient Admission. Preliminary diagnosis are Hypotension, Urinary tract infection, site not specified. - Bed requested for Intensive Care Unit. - Status is Inpatient Admission. aj - Condition is Stable. - Problem is new. - Symptoms have improved. UTI on Admission? Yes Signatures: Dispatcher [employer] EDMS Caridad Lao RN RN aj Mickail, Joel, PA PA Nathanael Cintron MD MD rn Gallardo, Ana ag Corrections: (The following items were deleted from the chart) 08/15 15:29 15:03 This 57 yrs old Male presents to ER via EMS with complaints of m Evaluation for Possible Dehydration. [facility] 17:55 17:11 Hospitalization Ordered by Alfa Reed DO for Observation. Preliminary ag diagnosis is Hypotension; Urinary tract infection, site not specified. Bed requested for Telemetry/MedSurg (observation). Status is Observation. Condition is Stable. Problem is new. Symptoms have improved. UTI on Admission? Yes. [facility] 18:59 17:55 08/15/2017 17:11 Hospitalization Ordered by Alfa Reed DO for Inpatient aj Admission. Preliminary diagnosis is Hypotension; Urinary tract infection, site not specified. Bed requested for Intensive Care Unit. Status is Inpatient Admission. Condition is Stable. Problem is new. Symptoms have improved. UTI on Admission? Yes. ag
[2017-08-15] MEDS ORDERED: ACETAMINOPHEN 500 MG TAB PO PRN (17:26)
[2017-08-15] MEDS ORDERED: ONDANSETRON 4 MG/2 ML VIAL IV PRN (17:26)
[2017-08-15] MEDS ORDERED: SODIUM CHLORIDE 0.9% 10ML INJ IV PRN (17:26)
--- NOTE | 2017-08-15 17:42 | P.HP ---
Certification for Inpatient Patient admitted to: Inpatient With expected LOS: >2 Midnights Patient will require the following post-hospital care: Other Practitioner: I am a practitioner with admitting privileges, knowledge of patient current condition, hospital course, and medical plan of care. Services: Services provided to patient in accordance with Admission requirements found in Title 42 Section 412.3 of the Code of Federal Regulations Patient History Date of Service: 08/15/17 Primary Care Provider: Dr. Pizano; Multiple specialists in [place](Neuro, Cards) Reason for admission: Hypotension, UTI History of Present Illness: 57 yo CM presented to the ER after he was brought in by the . 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 The further reports that about 3 years ago he suffered a major CVA. Since then he has had multiple TIAs. Last November he was diagnosed with colon cancer and had a colectomy and colostomy. Over the last 7 months his condition has been declining. The further reports that the last 3 weeks he has had poor oral intake. He has refused medications at times. He is bedbound. Today she noted that he appeared more dehydrated. In the ER he was hypotensive with tachycardia. He was given IV fluids with improvement. On lab, WBC is normal. CMP showed normal renal function. Procalcitoniin was normal. He was found to have a UTI. CXR showed no pneumonia. His TSH was low. His Digoxin was slightly elevated. He remains stable. When I saw the patient he appears chronically debilitated. He has aphasia. He does not appear septic but his BP is low normal. 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 -: Multiple TIAs -: Hypothyroidism -: Colon cancer with history of colectomy/colostomy -: Malnutrition -: GERD -: Colectomy/Colostomy -: Knee surgery -: Back surgery Psychosocial/ Personal History: Patient is . He is fully dependent on the . has a caregiver for him. - Family History Family History: Reviewed- Non-Contributory - Social History Smoking Status: Never smoker Alcohol use: No CD- Drugs: No Caffeine use: No Place of Residence: Home Review of Systems General: Weakness, Malaise Eyes: Unremarkable ENT: Unremarkable Respiratory: Unremarkable Cardiovascular: Unremarkable Gastrointestinal: Unremarkable Genitourinary: Unremarkable Musculoskeletal: As per HPI Integumentary: As per HPI Neurological: Weakness, As per HPI Lymphatics: Unremarkable Physical Examination - Physical Exam General: Alert, Other (Patient with aphasia. He expresses different emotions. reports that he appears at his baseline. ) HEENT: Atraumatic, Other (Dry mucous membranes, Muscle atrophy to the face. ) Neck: Supple, No Thyromegaly Respiratory: Clear to auscultation bilaterally Cardiovascular: Normal pulses, Regular rate/rhythm Gastrointestinal: Normal bowel sounds, Soft and benign, Non-distended, Other ( colostomy in place) Musculoskeletal: Contractures (to the right upper ext) Neurological: Other (muscle atrophy noted throughout. Dry skin), Abnormal speech (aphasia) - Studies Laboratory Data (last 24 hrs) 08/15/17 13:30: PT 17.7 H, INR 1.49, APTT 31.7 08/15/17 13:30: WBC 9.4, Hgb 13.1 L, Hct 40.0, Plt Count 373 08/15/17 13:30: Sodium 140, Potassium 4.6, BUN 13, Creatinine 0.80, Glucose 187 H, Magnesium 1.8, Total Bilirubin 0.6, AST 13 L, ALT 19, Alkaline Phosphatase 85 Assessment and Plan - Problems (Diagnosis) (1) Hypotension Current Visit: Yes Status: Acute Plan: Likely from Sepsis related to UTI. Obtain blood and urine cultures. He has responded well to IV fluids. Will continue with IV fluids. Will monitor closely. Will hold his Metoprolol that he takes for Atrial fibrillation. I have discussed in detail with the concerning advance directives. She understands his condition and desires that the patient be DNR/DNI. She expresses that she does not want PEG tube for the patient if this is needed. She understands that his condition has declined rapidly over the last couple of months. She has expressed Hospice care as this was expressed by the health patient care representative with the insurance. She is wanting more information. (2) UTI (urinary tract infection) Current Visit: Yes Status: Acute Plan: Will obtain cultures. Will start Rocephin. Qualifiers: Urinary tract infection type: site unspecified Hematuria presence: without hematuria Qualified Code(s): N39.0 - Urinary tract infection, site not specified (3) Sepsis Current Visit: Yes Status: Acute Plan: Continue as above. (4) History of CVA with residual deficit Current Visit: Yes Status: Chronic Plan: Overall stable. Will monitor closely. Will need to assess swallowing. May need Speech evaluation with MBS (5) Atrial fibrillation Current Visit: Yes Status: Chronic Plan: Continue with Amiodarone and Eliquis. Will hold Metoprolol and digoxin. Qualifiers: Atrial fibrillation type: chronic Qualified Code(s): I48.2 - Chronic atrial fibrillation (6) Chronic anticoagulation Current Visit: Yes Status: Chronic Plan: Continue medication (7) HTN (hypertension) Current Visit: Yes Status: Chronic Plan: Hold Metoprolol. Qualifiers: Hypertension type: essential hypertension Qualified Code(s): I10 - Essential (primary) hypertension (8) Diabetes mellitus Current Visit: Yes Status: Chronic Plan: Will obtain A1C. Continue with sliding scale. Qualifiers: Diabetes mellitus type: type 2 Diabetes mellitus senior living insulin use: with senior living use Diabetes mellitus complication status: with other specified complication Qualified Code(s): E11.69 - Type 2 diabetes mellitus with other specified complication; Z79.4 - roasterman (current) use of insulin (9) GERD (gastroesophageal reflux disease) Current Visit: Yes Status: Chronic Plan: Continue with medication (10) Malnutrition Current Visit: Yes Status: Chronic Plan: Will evaluate for dysphasia. Nutrition consulted. does not want PEG tube (11) History of colon cancer Current Visit: Yes Status: Chronic Plan: Continue with colostomy care. (12) Colostomy in place Current Visit: Yes Status: Chronic Plan: as above (13) Hypothyroidism Current Visit: Yes Status: Chronic Plan: TSH is low. Will decrease Medication. Qualifiers: Hypothyroidism type: unspecified Qualified Code(s): E03.9 - Hypothyroidism , unspecified (14) Dehydration Current Visit: Yes Status: Acute Plan: Continue with IV fluids. Discharge Plan: Home Plan to discharge in: Greater than 2 days - Advance Directives Does patient have a Living Will: No Does patient have a Durable POA for Healthcare: No - Code Status/Comfort Care Code Status Assessed: Yes (addressed with MPOA-. ) Time Spent Managing Pts Care (In Minutes): 55
[2017-08-15] MEDS: INSULIN -REGULAR HUMAN 50 UNIT/0.5 ML ML SQ SCH (18:00)
[2017-08-15] MEDS: NA CHLORIDE 0.9% 1,000 ML IV SCH (18:38)
[2017-08-15] MEDS: CEFTRIAXONE/SWI 1gm 1 GM/10 ML SYR IV SCH (19:25)
[2017-08-15] MEDS ORDERED: CEFTRIAXONE 1 GM/NS 50 ML 1 GM/50 ML BAG IV SCH (21:00)
[2017-08-15] MEDS: APIXABAN 5 MG TABLET PO SCH (21:47)
[2017-08-15] MEDS: ATORVASTATIN 80 MG TAB PO SCH (21:47)
[2017-08-15 22:25] VITALS: BMI 22.6
[2017-08-16] MEDS: NA CHLORIDE 0.9% 1,000 ML IV SCH ×2 (03:26→16:44)
[2017-08-16 05:21] LABS: Absolute Lymphocytes (CBC) 2.1 K/uL (0.7-4.9); Absolute Monocytes 0.9 K/uL (0.1-1.3); Absolute Neutrophil 5.6 K/uL (1.8-8.0); Basophils % 0.5 % (0-1.3); Eosinophils % 0.9 % (0-4.4); Hematocrit 36.6 % (39.6-49.0); MCV 86.1 fL (80-100); MPV 8.3 fL (7.6-11.3); Monocytes % 10.5 % (3.3-12.3); RBC Red Blood Cell Count 4.25 M/uL (4.33-5.43)
[2017-08-16 05:45] LABS: ALT/SGPT 16 U/L (12-78); AST/SGOT 16 U/L (15-37); Albumin 2.7 g/dL (3.4-5.0); Alkaline Phosphatase 78 U/L (45-117); BUN Blood Urea Nitrogen 11 mg/dL (7-18); Bicarbonate 23 mmol/L (21-32); Bilirubin Total 0.6 mg/dL (0.2-1.0); Glucose Level 160 mg/dL (74-106); HDL Cholesterol 34 mg/dL (40-60); LDL Cholesterol, Calculated 16 (<130); Magnesium 1.5 mg/dL (1.8-2.4); Potassium 3.8 mmol/L (3.5-5.1); Protein, Total 6.3 g/dL (6.4-8.2); Sodium Level 141 mmol/L (136-145)
[2017-08-16] MEDS: INSULIN -REGULAR HUMAN 50 UNIT/0.5 ML ML SQ SCH ×5 (05:51→20:49)
[2017-08-16] MEDS: LEVOTHYROXINE SOD 0.1 MG TAB PO SCH (05:52)
[2017-08-16] MEDS: LEVOTHYROXINE SOD 0.05 MG TABLET PO SCH (05:52)
[2017-08-16] MEDS ORDERED: Magnesium Sulfate 2gm IVPB 2 G/50 ML BAG IV ONE (05:58)
[2017-08-16] MEDS ORDERED: POTASSIUM 25 MEQ EFFERV TAB PO ONE (06:15)
--- NOTE | 2017-08-16 06:49 | EKG ---
Test Date: 2017-08-15 Test Time: 15:04:46 Mine Captain: JOLENE MEASUREMENT RESULTS: Intervals: Rate: 77 [place]: 202 QRSD: 128 QT: 412 QTc: 466 [place]: P: 82 [place]: 202 QRS: 16 T: -55 INTERPRETIVE STATEMENTS: Normal sinus rhythm Right bundle branch block T wave abnormality, consider inferolateral ischemia Abnormal ECG Compared to ECG 06/14/2017 19:29:54 T-wave abnormality now present Possible ischemia now present Electronically Signed On 08-16-17 06:48:35 CDT by Armen Salter
[2017-08-16] MEDS ORDERED: D50W 25 GM/50 ML SYRINGE IV PRN (07:43)
[2017-08-16] MEDS ORDERED: GLUCAGON 1 MG/VIAL IM PRN (07:43)
--- NOTE | 2017-08-16 08:11 | P.PN ---
Subjective Date of Service: 08/16/17 Primary Care Provider: Dr. Pizano; Multiple specialists in [place](Neuro, Cards) Chief Complaint: Hypotension, UTI Subjective: Improving (Patient more alert this morning.) Physical Examination - Vital Signs Temperature: 97 F Blood Pressure: 100/52 Pulse: 87 Respirations: 14 Pulse Ox (%): 99 - Physical Exam General: Alert, Cooperative HEENT: Atraumatic Neck: Supple Respiratory: Clear to auscultation bilaterally, Normal air movement Cardiovascular: Normal pulses, Regular rate/rhythm Gastrointestinal: Normal bowel sounds, Soft and benign, Non-distended, Other ( Colostomy in place) Musculoskeletal: Contractures (to the right upper ext) Integumentary: No tenderness/swelling, No erythema, No warmth Neurological: Normal affect - Studies Laboratory Data (last 24 hrs) 08/15/17 13:30: PT 17.7 H, INR 1.49, APTT 31.7 08/15/17 13:30: WBC 9.4, Hgb 13.1 L, Hct 40.0, Plt Count 373 08/15/17 13:30: Sodium 140, Potassium 4.6, BUN 13, Creatinine 0.80, Glucose 187 H, Magnesium 1.8, Total Bilirubin 0.6, AST 13 L, ALT 19, Alkaline Phosphatase 85 Medications List Reviewed: Yes Assessment & Plan - Problems (Diagnosis) (1) Hypotension Onset Date: 08/16/17 Current Visit: Yes Status: Acute Plan: Likely from Sepsis related to UTI. Much improved. Continue with antibiotics. Will transfer patient to the floor. Will continue to hold his Metoprolol that he takes for Atrial fibrillation. Advanced directives address yesterday. Patient DNR and DNI. does not want PEG tube for the patient. Will Re discuss options of about hospice care with patient and again today. Will discuss with foster care social worker about plan of care. (2) UTI (urinary tract infection) Onset Date: 08/16/17 Current Visit: Yes Status: Acute Plan: Continue with antibiotic therapy. Overall improved. Await urine and blood cultures. Qualifiers: Urinary tract infection type: site unspecified Hematuria presence: without hematuria Qualified Code(s): N39.0 - Urinary tract infection, site not specified (3) Sepsis Onset Date: 08/16/17 Current Visit: Yes Status: Acute Plan: Continue as above. (4) History of CVA with residual deficit Onset Date: 08/16/17 Current Visit: Yes Status: Chronic Plan: Overall stable. Patient more alert today. Will assess swallowing. Patient may require speech/MBS. Patient has had poor oral intake as per . (5) Atrial fibrillation Onset Date: 08/16/17 Current Visit: Yes Status: Chronic Plan: Continue with Amiodarone and Eliquis. Will hold Metoprolol and digoxin. Will recheck digoxin level as it was elevated upon admission. Qualifiers: Atrial fibrillation type: chronic Qualified Code(s): I48.2 - Chronic atrial fibrillation (6) Chronic anticoagulation Onset Date: 08/16/17 Current Visit: Yes Status: Chronic Plan: Continue medication (7) HTN (hypertension) Onset Date: 08/16/17 Current Visit: Yes Status: Chronic Plan: Hold Metoprolol due to low blood pressure. Qualifiers: Hypertension type: essential hypertension Qualified Code(s): I10 - Essential (primary) hypertension (8) Diabetes mellitus Onset Date: 08/16/17 Current Visit: Yes Status: Chronic Plan: Will obtain A1C. Continue with sliding scale. Qualifiers: Diabetes mellitus type: type 2 Diabetes mellitus group home insulin use: with group home use Diabetes mellitus complication status: with other specified complication Qualified Code(s): E11.69 - Type 2 diabetes mellitus with other specified complication; Z79.4 - intermediate (current) use of insulin (9) GERD (gastroesophageal reflux disease) Onset Date: 08/16/17 Current Visit: Yes Status: Chronic Plan: Continue with medication (10) Malnutrition Onset Date: 08/16/17 Current Visit: Yes Status: Chronic Plan: Will evaluate for dysphasia. Nutrition consulted. does not want PEG tube (11) History of colon cancer Onset Date: 08/16/17 Current Visit: Yes Status: Chronic Plan: Continue with colostomy care. (12) Colostomy in place Onset Date: 08/16/17 Current Visit: Yes Status: Chronic Plan: as above (13) Hypothyroidism Onset Date: 08/16/17 Current Visit: Yes Status: Chronic Plan: TSH is low. Will decrease Medication. Tsh/free T4 will need to be reassessed Qualifiers: Hypothyroidism type: unspecified Qualified Code(s): E03.9 - Hypothyroidism , unspecified (14) Dehydration Onset Date: 08/16/17 Current Visit: Yes Status: Acute Plan: Continue with IV fluids. (15) Hypomagnesemia Current Visit: Yes Status: Acute Plan: Will monitor and replace appropriately. Replacement protocol in place. (16) Anemia Current Visit: Yes Status: Acute Plan: Suspect related to dilution. Qualifiers: Anemia type: unspecified type Qualified Code(s): D64.9 - Anemia, unspecified Discharge Plan: Home Plan to discharge in: 48 Hours Time Spent Managing Pts Care (In Minutes): 55
[2017-08-16] MEDS: AMIODARONE HCL 200 MG TAB PO SCH (08:54)
[2017-08-16] MEDS: PANTOPRAZOLE 40 MG INJ IVP SCH (08:54)
[2017-08-16] MEDS: FOLIC ACID 1 MG TABLET PO SCH (08:54)
[2017-08-16] MEDS: THIAMINE HCL 100 MG TABLET PO SCH (08:54)
[2017-08-16] MEDS: APIXABAN 5 MG TABLET PO SCH ×2 (08:55→20:48)
[2017-08-16] MEDS: CEFTRIAXONE/SWI 1gm 1 GM/10 ML SYR IV SCH ×2 (08:58→20:50)
[2017-08-16] MEDS ORDERED: POTASSIUM CL SA 10 MEQ TAB PO SCH (09:00)
[2017-08-16] MEDS: VANCOMYCIN 1.5 GM in NA CHLORIDE 0.9% 500 ML IVPB SCH ×2 (11:40→21:14)
[2017-08-16] MEDS: ATORVASTATIN 80 MG TAB PO SCH (20:48)
[2017-08-16] MEDS: GLUCERNA SHAKE 237 ML CAN PO SCH (20:49)
[2017-08-17] MEDS: NA CHLORIDE 0.9% 1,000 ML IV SCH ×2 (02:47→09:24)
[2017-08-17 05:04] LABS: Absolute Lymphocytes (CBC) 2.3 K/uL (0.7-4.9); Absolute Monocytes 0.8 K/uL (0.1-1.3); Absolute Neutrophil 4.1 K/uL (1.8-8.0); Basophils % 0.7 % (0-1.3); Eosinophils % 1.1 % (0-4.4); Hematocrit 32.8 % (39.6-49.0); Lymphocytes % 31.3 % (15.3-44.8); MCH 27.9 pg (27.0-35.0); MCV 85.6 fL (80-100); MPV 8.4 fL (7.6-11.3); Monocytes % 10.7 % (3.3-12.3); RBC Red Blood Cell Count 3.84 M/uL (4.33-5.43)
[2017-08-17] MEDS: LEVOTHYROXINE SOD 0.1 MG TAB PO SCH (05:10)
[2017-08-17] MEDS: LEVOTHYROXINE SOD 0.05 MG TABLET PO SCH (05:10)
[2017-08-17 05:15] LABS: ALT/SGPT 14 U/L (12-78); AST/SGOT 16 U/L (15-37); Albumin 2.4 g/dL (3.4-5.0); Alkaline Phosphatase 70 U/L (45-117); BUN Blood Urea Nitrogen 8 mg/dL (7-18); Bicarbonate 22 mmol/L (21-32); Bilirubin Total 0.4 mg/dL (0.2-1.0); Glucose Level 161 mg/dL (74-106); Magnesium 1.8 mg/dL (1.8-2.4); Potassium 3.5 mmol/L (3.5-5.1); Protein, Total 5.5 g/dL (6.4-8.2); Sodium Level 142 mmol/L (136-145)
[2017-08-17] MEDS ORDERED: MAGNESIUM SULFATE 1 gm IVPB 1 GM/100 ML BAG IV ONE (06:00)
[2017-08-17] MEDS ORDERED: POTASSIUM 25 MEQ EFFERV TAB PO ONE (06:00)
[2017-08-17] MEDS: INSULIN -REGULAR HUMAN 50 UNIT/0.5 ML ML SQ SCH ×3 (07:30→16:30)
[2017-08-17 08:51] VITALS: O2SAT 95
[2017-08-17] MEDS: GLUCERNA SHAKE 237 ML CAN PO SCH (09:00)
[2017-08-17] MEDS: AMIODARONE HCL 200 MG TAB PO SCH (09:23)
[2017-08-17] MEDS: APIXABAN 5 MG TABLET PO SCH (09:23)
[2017-08-17] MEDS: FOLIC ACID 1 MG TABLET PO SCH (09:23)
[2017-08-17] MEDS: CEFTRIAXONE/SWI 1gm 1 GM/10 ML SYR IV SCH (09:23)
[2017-08-17] MEDS: PANTOPRAZOLE 40 MG INJ IVP SCH (09:23)
[2017-08-17] MEDS: THIAMINE HCL 100 MG TABLET PO SCH (09:24)
[2017-08-17] MEDS: VANCOMYCIN 1.5 GM in NA CHLORIDE 0.9% 500 ML IVPB SCH (10:29)
--- NOTE | 2017-08-17 15:57 | DS ---
Date of Discharge: 08/17/2017 Discharge Diagnoses: 1.Toxic encephalopathy. 2.Urosepsis. 3.Hypertension. 4.History of cerebrovascular accident with quadriplegia. 5.Hypothyroidism. 6.Dehydration. 7.Malnutrition. 8.Deconditioning. 9.Anemia. 10.Diabetes. Consult: Hospice. Procedure: None. History Of Present Illness: History is refer to Dr. Reed history and physical exam on August 15. Hospital Course: Initially, the patient presented to the ER by . He was found to be hypotensive and tachycardic in the ER. According to the for the last 7 months he was declining. In the la st 3 weeks he had a poor oral intake. He refused to take medication. He is most bed-bound. He was placed on IV antibiotic for urosepsis next day and admitted to the ICU. Given IV fluids. Next day w alexa decided to proceed with hospice. Hospice was called. The patient was admitted to hospice today. He will be discharged today with hospice care. Hospice will provide the patient with list of medic ation for outpatient hospice care as well. Discharge Condition: Critical. Discharge Medication: Hospice. Discharge Diet: As tolerated. Discharge Activity: As tolerated. Discharge Exam: Vital Signs: Blood pressure is 90/60, respiratory rate 16, pulse 77, temperature 98 .1. General: The patient is alert, does not look in distress. HEENT: Atraumatic, normocephalic. Oral mucosa is dry. Neck: Supple. Chest: Clear to auscultation. Good air entry. Heart: Regular rate and rhythm. S1, S2 normal. No gallop or murmur. Abdomen: Soft, nontender. No masses. No hepatosplenomegaly. Positive bowel sounds. He has a colo stomy in place. Extremities: With some contractures mostly to the right upper extremity. Neurologic: Deferred. Of note, refused PEG tube, discharge now to outpatient hospice care. JE/DIANA Voice ID: [id number] Report ID: [id number]
[2017-08-17 16:53] VITALS: BP 118/70; TEMP 97
== END 2017-08-17 17:21 | disposition hospice, home (50) | DRG 871 ==
LOC: ER 12:35 → ERHOLD 17:14 → OBSVTOIN 18:00 → 3RD-ICU 18:10 → 2ND 08-16 17:11
PROVIDERS: ADMIT Family Medicine; ATTEND Internal Medicine
DX: A41.9 Sepsis, unspecified organism (principal); G92 Toxic encephalopathy; R53.2 Functional quadriplegia; N39.0 Urinary tract infection, site not specified; E46 Unspecified protein-calorie malnutrition; I10 Essential (primary) hypertension; I69.365 Other paralytic syndrome following cerebral infarction, bilateral; E03.9 Hypothyroidism, unspecified; E86.0 Dehydration; D64.9 Anemia, unspecified; E11.9 Type 2 diabetes mellitus without complications; I95.9 Hypotension, unspecified; Z74.01 Bed confinement status; Z51.5 Encounter for palliative care; Z93.3 Colostomy status; Z66 Do not resuscitate; I48.2 Chronic atrial fibrillation; Z79.01 Long term (current) use of anticoagulants; Z79.4 Long term (current) use of insulin; K21.9 Gastro-esophageal reflux disease without esophagitis; Z85.038 Personal history of other malignant neoplasm of large intestine; E83.42 Hypomagnesemia; I69.320 Aphasia following cerebral infarction; I69.398 Other sequelae of cerebral infarction; M24.50 Contracture, unspecified joint; R53.81 Other malaise
CPT/HCPCS: 36415; 71045; 80048; 80053; 80061; 80076; 80162; 81003; 81015; 82550; 82553; 82962; 83605; 83735; 84145; 84439; 84443; 84484; 85025; 85610; 85730; 87040; 87086; 87088; 87205; 93005; 99285; C9113; J0696; J3475; J7030